=== PATIENT | male | born 1985 | race African-American/Black ===

== ENCOUNTER 2019-04-23 00:05 | Inpatient (IN) | payer SELFPAY ==
[2019-04-23] MEDS ORDERED: HYDRALAZINE HCL 20 MG/ML VIAL ONE ×2 (00:44→01:17)
[2019-04-23 00:54] LABS: Basophils % 0.8 % (0-1.3); Lymphocytes % 14.2 % (15.3-44.8); MPV 8.2 fL (7.6-11.3); RBC Red Blood Cell Count 4.32 M/uL (4.33-5.43)
[2019-04-23 00:57] LABS: Protime INR 1.02
[2019-04-23 01:15] LABS: Albumin 3.6 g/dL (3.4-5.0); Bilirubin Direct 0.1 mg/dL (0-0.2); Bilirubin Total 0.4 mg/dL (0.2-1.0); Magnesium 1.8 mg/dL (1.8-2.4); Potassium 3.4 mmol/L (3.5-5.1); Protein, Total 7.3 g/dL (6.4-8.2); Troponin (Emerg Dept Use Only) 0.12 ng/mL (0.0-0.045)
[2019-04-23] MEDS ORDERED: ENOXAPARIN 100 MG/ML SYR SQ ONE (01:48)
[2019-04-23] MEDS ORDERED: NITROGLYCERIN/D5W 50 MG/250 ML BTL IV ONE (01:48)
[2019-04-23] MEDS ORDERED: ONDANSETRON 4 MG/2 ML VIAL ONE (01:48)
[2019-04-23] MEDS ORDERED: METOPROLOL TARTRATE 5 MG/5 ML INJ IV ONE (01:48)
[2019-04-23] MEDS ORDERED: FUROSEMIDE 40 MG/4 ML VIAL ONE (01:53)
--- NOTE | 2019-04-23 02:09 | ER ---
Nurse's Notes [facility] Name: Ezequiel Padron Age: 34 yrs Sex: Male : 1985 Arrival Date: 04/23/2019 Time: 00:07 Bed 18 Private MD: Diagnosis: Acute combined systolic (congestive) and diastolic (congestive) heart failure;Hypertensive Emergency ;Cardiomegaly Presentation: 04/23 00:20 Presenting complaint: Patient states: I am having hard time to breath, cannot sleep and rr5 coughing when I'm laying flat for couple of weeks now but it gets worse today. I urinate a lot too. 00:20 Transition of care: patient was not received from another setting of care. Onset of rr5 symptoms was April 23, 2019. Risk Assessment: Do you want to hurt yourself or someone else? Patient reports no desire to harm self or others. Initial Sepsis Screen: Does the patient meet any 2 criteria? No. Patient's initial sepsis screen is negative. Does the patient have a suspected source of infection? No. Patient's initial sepsis screen is negative. Note denies any dizziness, slurred speech or weakness. patient stop his BP medication (lisinopril) for couple of months. Care prior to arrival: None. 00:20 Method Of Arrival: Ambulatory rr5 00:20 Acuity: HERMELINDA 3 rr5 Triage Assessment: 00:20 Respiratory: Onset: The symptoms/episode began/occurred gradually, the patient has mild rr5 shortness of breath. 00:20 General: Appears in no apparent distress. uncomfortable. rr5 Historical: - Allergies: 00:20 HTN medication; rr5 - Home Meds: 00:20 Lisinopril Oral [Active]; rr5 - PMHx: 00:20 Hypertension; rr5 - PSHx: 00:20 right leg surgery; rr5 - Immunization history:: Adult Immunizations not up to date. - Social history:: Smoking status: Patient/guardian denies using tobacco, Patient uses alcohol, weekly. Patient/guardian denies using street drugs. - Ebola Screening: : Patient negative for fever greater than or equal to 101.5 degrees Fahrenheit, and additional compatible Ebola Virus Disease symptoms Patient denies exposure to infectious person Patient denies travel to an Ebola-affected area in the 21 days before illness onset. Screenin:29 Abuse screen: Denies threats or abuse. Denies injuries from another. Nutritional rr5 screening: No deficits noted. Tuberculosis screening: No symptoms or risk factors identified. Fall Risk None identified. Total Pressley Fall Scale indicates No Risk (0-24 pts). 00:30 VAN Screening: Arm Drift: Patient shows no arm weakness. Patient is VAN negative. rr5 Assessment: 00:20 General: Appears in no apparent distress. uncomfortable, Behavior is calm, cooperative, rr5 appropriate for age, Reports I cannot sleep. 00:20 Pain: Denies pain. Neuro: Level of Consciousness is awake, alert, obeys commands, rr5 Oriented to person, place, time, situation, Appropriate for age. Cardiovascular: Capillary refill < 3 seconds Patient's skin is warm and dry. Rhythm is sinus tachycardia. Respiratory: Reports shortness of breath cant lay flat on bed Airway is patent Respiratory effort is even, unlabored, Respiratory pattern is tachypnea. GI: No signs and/or symptoms were reported involving the gastrointestinal system. : Urine is clear, Reports i pee a lot. EENT: No signs and/or symptoms were reported regarding the EENT system. Derm: Skin is intact, Skin temperature is warm. Musculoskeletal: Circulation, motion, and sensation intact. Capillary refill < 3 seconds. 00:20 Respiratory: Breath sounds are clear bilaterally. rr5 01:15 Reassessment: Patient appears in no apparent distress at this time. Patient is alert, rr5 oriented x 3, equal unlabored respirations, skin warm/dry/pink. awaiting for results. BP rechecked 193/128 mmHg ED provider with order made and carried out. 01:45 Reassessment: BP 175/105 mmHg ED provider aware with order to hold the nitroglycerin rr5 drip for now. 01:45 Reassessment: patient complaints of nausea with order made and carried out. rr5 02:15 Reassessment: Patient appears in no apparent distress at this time. Patient is alert, rr5 oriented x 3, equal unlabored respirations, skin warm/dry/pink. ED provider ordered to start the nitroglycerin drip. BP 186/ 121mmHg. 02:50 Reassessment: [facility]. hospitalist at bedside rr5 examining the patient. dr.clarke ordered for give nitro paste ointment,target BP map (110). Vital Signs: 00:20 BP 219 / 161; Pulse 110; Resp 22; Temp 99.6; Pulse Ox 98% ; Weight 108.86 kg; Height 6 rr5 ft. 0 in. (182.88 cm); Pain 0/10; 00:50 BP 197 / 145; Pulse 108; Resp 24; Pulse Ox 98% ; rr5 01:14 BP 203 / 134; Pulse 107; Resp 25; Pulse Ox 100% ; rr5 01:21 BP 193 / 128; Pulse 106; Resp 24; Pulse Ox 98% ; rr5 01:45 BP 175 / 105; Pulse 113; Resp 23; Pulse Ox 99% ; rr5 02:00 BP 190 / 128; Pulse 109; Resp 22; Pulse Ox 99% on R/A; rr5 02:15 BP 186 / 121; Pulse 99; Resp 24; Pulse Ox 100% on R/A; rr5 02:30 BP 174 / 113; Pulse 98; Resp 21; Pulse Ox 100% on R/A; rr5 03:15 BP 172 / 114 (auto/); Pulse 102; Resp 23; Temp 99.5; Pulse Ox 100% ; rr5 04:00 BP 165 / 93; Pulse 99; Resp 21; Temp 99; Pulse Ox 98% ; rr5 00:20 Body Mass Index 32.55 (108.86 kg, 182.88 cm) rr5 03:15 map 128 increased nitro drip to 10 mcg/min rr5 ED Course: 00:07 Patient arrived in ED. ag3 00:09 Fazal Marks, SAMANTHA is Primary Nurse. rr5 00:16 Andres Carrera PA is PHCP. jr8 00:16 Dustin Ricardo MD is Attending Physician. jr8 00:20 Arm band placed on right wrist. rr5 00:25 Triage completed. rr5 00:25 Patient has correct armband on for positive identification. Placed in gown. Bed in low rr5 position. Call light in reach. neurosurgery spine physician on. Pulse ox on. NIBP on. 00:45 Inserted saline lock: 18 gauge in left antecubital area, using aseptic technique. rr5 ,using aseptic technique. inserted by [facility] tech Blood collected. 00:45 EKG done, by ED staff, reviewed by Andres PEARCE. rr5 00:59 XRAY Chest (1 view) In Process Unspecified. EDMS 02:07 Nelly Clarke MD is Hospitalizing Provider. jr8 02:51 No provider procedures requiring assistance completed. Patient admitted, IV remains in rr5 place. intact, No redness/swelling at site. 13:55 Repeat lab(s) drawn. by [facility], sent to lab. mh5 Administered Medications: 00:52 Drug: hydrALAZINE 10 mg Route: IV; Rate: calculated rate; Site: left antecubital; rr5 01:15 Follow up: Response: Blood pressure is lowered; IV Status: Completed infusion rr5 01:15 Drug: hydrALAZINE 10 mg Route: IV; Rate: calculated rate; Site: left antecubital; rr5 01:30 Follow up: Response: No adverse reaction; Blood pressure is lowered; IV Status: rr5 Completed infusion 01:55 Drug: Lovenox 1 mg/kg Route: Sub-Q; Site: right lower abdomen; rr5 03:00 Follow up: Response: No adverse reaction rr5 02:00 Drug: Zofran 4 mg Route: IVP; Site: left antecubital; rr5 02:43 Follow up: Response: No adverse reaction rr5 02:04 Drug: Metoprolol 5 mg {Note: HR 109 bpm, BP 190/128 mmHg.} Route: IVP; Site: left rr5 antecubital; 03:30 Follow up: Response: No adverse reaction; Blood sugar is lowered rr5 02:06 Drug: Lasix 40 mg Route: IVP; Site: left antecubital; rr5 03:00 Follow up: Response: No adverse reaction rr5 02:15 Drug: Nitro Drip - (Nitroglycerin 50 mg, D5W 250 ml) {Note: BP 186/121 mmHg.} Route: rr5 IV; Rate: 5 mcg/min; Site: left antecubital; 03:15 Follow up: Response: Blood pressure is elevated; Rate change 10 mcg/min; map 128 rr5 04:00 Follow up: Response: Blood pressure is lowered; Rate change 5 mcg/min rr5 04:20 Follow up: Response: Blood pressure is elevated; Rate change 10 mcg/min; IV Intake: 3ml rr5 ; 180/123 mmHg map 137 04:30 Follow up: IV Status: Infusion continued upon admission rr5 05:00 Follow up: Rate change 15 mcg/min; IV Intake: 3ml ; 187/114 mmHg map 130 rr5 02:58 Drug: Nitroglycerin Ointment 2 % 1 inches {Note: right chest.verbal order by .} rr5 Route: Transdermal; Site: anterior chest wall; 04:00 Follow up: Response: No adverse reaction rr5 Intake: 04:20 IV: 3ml; Total: 3ml. rr5 05:00 IV: 3ml; Total: 6ml. rr5 Output: 01:30 Urine: 700ml (Voided); Total: 700ml. rr5 02:25 Urine: 450ml (Voided); Total: 1150ml. rr5 03:20 Urine: 350ml (Voided); Total: 1500ml. rr5 03:47 Stool: 1; Total: 1500ml. rr5 04:10 Urine: 400ml (Voided); Total: 1900ml. rr5 Outcome: 02:08 Decision to Hospitalize by Provider. jr8 04:00 Admitted to ER Hold. Please see [facility] for further documentation. rr5 04:00 Condition: stable 04:00 Instructed on the need for admit. rr5 14:26 Patient left the ED. ph Signatures: Dispatcher [employer] EDMS Andres Carrera PA PA jr8 Meaghan Gonzales, RN RN Mansi Garcia 5 Kandy Pacheco Raymond, RN RN rr5 Corrections: (The following items were deleted from the chart) 00:53 00:45 EKG done, rr5 rr5 01:14 00:20 BP 219 / 61; Pulse 110bpm; Resp 22bpm; Pulse Ox 98%; Temp 99.6F; 108.86 kg; rr5 Height 6 ft. 0 in.; BMI: 32.5; Pain 0/10; rr5 03:29 02:50 Reassessment: UDS order in [facility] collected and sent. hospitalist at bedside rr5 examining the patient. rr5
--- NOTE | 2019-04-23 02:09 | EDPHYS ---
Physician Documentation [facility] Name: Ezequiel Padron Age: 34 yrs Sex: Male : 1985 Arrival Date: 04/23/2019 Time: 00:07 Bed 18 Private MD: ED Physician Dustin Ricardo HPI: 04/23 00:43 This 34 yrs old Black Male presents to ER via Ambulatory with complaints of Breathing jr8 Difficulty. 00:43 The patient has shortness of breath at rest. Onset: The symptoms/episode began/occurred jr8 gradually, 2 week(s) ago. 00:43 Duration: The symptoms are continuous. The patient's shortness of breath is aggravated jr8 by supine position, walking. Associated signs and symptoms: The patient has no apparent associated signs or symptoms. Severity of symptoms: At their worst the symptoms were moderate in the emergency department the symptoms are unchanged. The patient has not experienced similar symptoms in the past. The patient has not recently seen a physician. Patient stated that he has a longstanding untreated history of HTN. Patient stated that he now is having shortness of breath with sleeping and when lying flat. Stated that he also noted that he is now having shortness of breath with exertion. Denies CP . Historical: - Allergies: 00:20 HTN medication; rr5 - Home Meds: 00:20 Lisinopril Oral [Active]; rr5 - PMHx: 00:20 Hypertension; rr5 - PSHx: 00:20 right leg surgery; rr5 - Immunization history:: Adult Immunizations not up to date. - Social history:: Smoking status: Patient/guardian denies using tobacco, Patient uses alcohol, weekly. Patient/guardian denies using street drugs. - Ebola Screening: : Patient negative for fever greater than or equal to 101.5 degrees Fahrenheit, and additional compatible Ebola Virus Disease symptoms Patient denies exposure to infectious person Patient denies travel to an Ebola-affected area in the 21 days before illness onset. ROS: 00:43 Eyes: Negative for injury, pain, redness, and discharge, ENT: Negative for injury, jr8 pain, and discharge, Neck: Negative for injury, pain, and swelling, Cardiovascular: Negative for chest pain, palpitations, and edema, Abdomen/GI: Negative for abdominal pain, nausea, vomiting, diarrhea, and constipation, Back: Negative for injury and pain, MS/Extremity: Negative for injury and deformity, Skin: Negative for injury, rash, and discoloration, Neuro: Negative for headache, weakness, numbness, tingling, and seizure. 00:43 Respiratory: Positive for dyspnea on exertion, orthopnea, shortness of breath. Exam: 00:43 Eyes: Pupils equal round and reactive to light, extra-ocular motions intact. Lids and jr8 lashes normal. Conjunctiva and sclera are non-icteric and not injected. Cornea within normal limits. Periorbital areas with no swelling, redness, or edema. ENT: Nares patent. No nasal discharge, no septal abnormalities noted. Tympanic membranes are normal and external auditory canals are clear. Oropharynx with no redness, swelling, or masses, exudates, or evidence of obstruction, uvula midline. Mucous membranes moist. Neck: Trachea midline, no thyromegaly or masses palpated, and no cervical lymphadenopathy. Supple, full range of motion without nuchal rigidity, or vertebral point tenderness. No Meningismus. Abdomen/GI: Soft, non-tender, with normal bowel sounds. No distension or tympany. No guarding or rebound. No evidence of tenderness throughout. Back: No spinal tenderness. No costovertebral tenderness. Full range of motion. Skin: Warm, dry with normal turgor. Normal color with no rashes, no lesions, and no evidence of cellulitis. MS/ Extremity: Pulses equal, no cyanosis. Neurovascular intact. Full, normal range of motion. Neuro: Awake and alert, GCS 15, oriented to person, place, time, and situation. Cranial nerves II-XII grossly intact. Motor strength 5/5 in all extremities. Sensory grossly intact. Cerebellar exam normal. Normal gait. 00:43 Cardiovascular: Rate: tachycardic, Rhythm: regular, Pulses: Pulses are 2+ in right radial artery and left radial artery. Heart sounds: S3, increased, Edema: is not appreciated. 00:43 Respiratory: the patient does not display signs of respiratory distress, Respirations: tachypnea, Breath sounds: are clear throughout, no bronchial sounds, no decreased breath sounds, no rales, rhonchi, no stridor, no wheezing. Vital Signs: 00:20 BP 219 / 161; Pulse 110; Resp 22; Temp 99.6; Pulse Ox 98% ; Weight 108.86 kg; Height 6 rr5 ft. 0 in. (182.88 cm); Pain 0/10; 00:50 BP 197 / 145; Pulse 108; Resp 24; Pulse Ox 98% ; rr5 01:14 BP 203 / 134; Pulse 107; Resp 25; Pulse Ox 100% ; rr5 01:21 BP 193 / 128; Pulse 106; Resp 24; Pulse Ox 98% ; rr5 01:45 BP 175 / 105; Pulse 113; Resp 23; Pulse Ox 99% ; rr5 02:00 BP 190 / 128; Pulse 109; Resp 22; Pulse Ox 99% on R/A; rr5 02:15 BP 186 / 121; Pulse 99; Resp 24; Pulse Ox 100% on R/A; rr5 02:30 BP 174 / 113; Pulse 98; Resp 21; Pulse Ox 100% on R/A; rr5 03:15 BP 172 / 114 (auto/); Pulse 102; Resp 23; Temp 99.5; Pulse Ox 100% ; rr5 04:00 BP 165 / 93; Pulse 99; Resp 21; Temp 99; Pulse Ox 98% ; rr5 00:20 Body Mass Index 32.55 (108.86 kg, 182.88 cm) rr5 03:15 map 128 increased nitro drip to 10 mcg/min rr5 MDM: 00:35 Patient medically screened. jr8 02:06 Data reviewed: vital signs, nurses notes, lab test result(s), EKG, radiologic studies, jr8 plain films. Data interpreted: Pulse oximetry: on room air is 98 %. Interpretation: normal. Counseling: I had a detailed discussion with the patient and/or guardian regarding: the historical points, exam findings, and any diagnostic results supporting the discharge/admit diagnosis, lab results, radiology results, the need for further work-up and treatment in the hospital. Physician consultation: Nelly Pinon MD was called at 02:07, was contacted at 02:07, regarding admission, to the telemetry unit. consult, patient's condition, and will see patient. 04/23 00:35 Order name: Basic Metabolic Panel; Complete Time: : jr8 04/23 00:35 Order name: CBC with Diff; Complete Time: 01:05 jr8 04/23 00:35 Order name: LFT's; Complete Time: : jr8 04/23 00:35 Order name: Magnesium; Complete Time: 01:33 8 04/23 00:35 Order name: NT PRO-BNP; Complete Time: 01:33 8 04/23 00:35 Order name: PT-INR; Complete Time: 01:10 04/23 00:35 Order name: Troponin (emerg Dept Use Only); Complete Time: 01:33 8 04/23 02:35 Order name: Comprehensive Metabolic Panel EDMS 04/23 02:35 Order name: Comprehensive Metabolic Panel EDMS 04/23 02:36 Order name: Urine Drug Screen EDMS 04/23 02:36 Order name: Urine Drug Screen EDMS 04/23 02:36 Order name: Magnesium EDMS 04/23 02:36 Order name: Magnesium EDMS 04/23 02:36 Order name: Phosphorus EDMS 04/23 00:35 Order name: XRAY Chest (1 view) [facility] 04/23 02:36 Order name: Phosphorus EDMS 04/23 02:36 Order name: NT PRO-BNP EDMS 04/23 02:36 Order name: NT PRO-BNP EDMS 04/23 02:36 Order name: Protime (+INR) EDMS 04/23 02:36 Order name: Protime (+INR) EDMS 04/23 02:36 Order name: Protime (+INR) EDMS 04/23 02:36 Order name: Troponin I EDMS 04/23 02:36 Order name: Troponin I EDMS 04/23 02:36 Order name: Troponin I EDMS 04/23 02:38 Order name: Echo with Doppler EDMS 04/23 02:38 Order name: CBC with Automated Diff EDMS 04/23 02:38 Order name: CBC with Automated Diff EDMS 04/23 02:42 Order name: Urine Microscopic Only rr5 04/23 02:55 Order name: Urine Drug Screen EDMS 04/23 08:59 Order name: Manual Differential EDMS 04/23 00:35 Order name: EKG; Complete Time: 00:37 04/23 00:35 Order name: Cardiac monitoring; Complete Time: 00:52 04/23 00:35 Order name: EKG - Nurse/Tech; Complete Time: 00:52 04/23 00:35 Order name: IV Saline Lock; Complete Time: 00:52 04/23 00:35 Order name: Labs collected and sent; Complete Time: 04/23 00:35 Order name: O2 Per Protocol; Complete Time: 04/23 00:35 Order name: O2 Sat Monitoring; Complete Time: 00:04/23 02:38 Order name: CONS Physician Consult [facility] 04/23 02:38 Order name: Heart Healthy EDCT 04/23 02:38 Order name: EKG Electrocardiogram [facility] 04/23 02:38 Order name: EKG Electrocardiogram [facility] 04/23 12:38 Order name: RAD EDMS Administered Medications: 00:52 Drug: hydrALAZINE 10 mg Route: IV; Rate: calculated rate; Site: left antecubital; rr5 01:15 Follow up: Response: Blood pressure is lowered; IV Status: Completed infusion rr5 01:15 Drug: hydrALAZINE 10 mg Route: IV; Rate: calculated rate; Site: left antecubital; rr5 01:30 Follow up: Response: No adverse reaction; Blood pressure is lowered; IV Status: rr5 Completed infusion 01:55 Drug: Lovenox 1 mg/kg Route: Sub-Q; Site: right lower abdomen; rr5 03:00 Follow up: Response: No adverse reaction rr5 02:00 Drug: Zofran 4 mg Route: IVP; Site: left antecubital; rr5 02:43 Follow up: Response: No adverse reaction rr5 02:04 Drug: Metoprolol 5 mg {Note: HR 109 bpm, BP 190/128 mmHg.} Route: IVP; Site: left rr5 antecubital; 03:30 Follow up: Response: No adverse reaction; Blood sugar is lowered rr5 02:06 Drug: Lasix 40 mg Route: IVP; Site: left antecubital; rr5 03:00 Follow up: Response: No adverse reaction rr5 02:15 Drug: Nitro Drip - (Nitroglycerin 50 mg, D5W 250 ml) {Note: BP 186/121 mmHg.} Route: rr5 IV; Rate: 5 mcg/min; Site: left antecubital; 03:15 Follow up: Response: Blood pressure is elevated; Rate change 10 mcg/min; map 128 rr5 04:00 Follow up: Response: Blood pressure is lowered; Rate change 5 mcg/min rr5 04:20 Follow up: Response: Blood pressure is elevated; Rate change 10 mcg/min; IV Intake: 3ml rr5 ; 180/123 mmHg map 137 04:30 Follow up: IV Status: Infusion continued upon admission rr5 05:00 Follow up: Rate change 15 mcg/min; IV Intake: 3ml ; 187/114 mmHg map 130 rr5 02:58 Drug: Nitroglycerin Ointment 2 % 1 inches {Note: right chest.verbal order by .} rr5 Route: Transdermal; Site: anterior chest wall; 04:00 Follow up: Response: No adverse reaction rr5 Disposition: 04/24 06:51 Co-signature as Attending Physician, Dustin Ricardo MD I agree with the assessment and tw4 plan of care. Disposition: 04/23/19 02:08 Hospitalization ordered by Nelly Pinon for Inpatient Admission. Preliminary diagnosis are Acute combined systolic (congestive) and diastolic (congestive) heart failure, Hypertensive Emergency , Cardiomegaly. - Bed requested for Telemetry/MedSurg (Inpatient). - Status is Inpatient Admission. ph - Condition is Fair. - Problem is new. - Symptoms have improved. UTI on Admission? No Signatures: Dispatcher [employer] EDMS Renee Reid Josh, PA PA jr8 Celia Lorenz RN RN tl1 Meaghan Gonzales RN RN Dustin Ricardo MD MD tw4 Fazal Marks RN RN rr5 Corrections: (The following items were deleted from the chart) 04/23 00:44 00:43 Onset: The symptoms/episode began/occurred gradually, jr8 jr8 02:08 02:08 Hospitalization Ordered by Nelly Pinon MD for Inpatient Admission. Preliminary jr8 diagnosis is Acute combined systolic (congestive) and diastolic (congestive) heart failure; Hypertensive Emergency . Bed requested for Intensive Care Unit. Status is Inpatient Admission. Condition is Fair. Problem is new. Symptoms have improved. UTI on Admission? No. jr8 02:48 02:08 04/23/2019 02:08 Hospitalization Ordered by Nelly Pinon MD for Inpatient tl1 Admission. Preliminary diagnosis is Acute combined systolic (congestive) and diastolic (congestive) heart failure; Hypertensive Emergency ; Cardiomegaly. Bed requested for Intensive Care Unit. Status is Inpatient Admission. Condition is Fair. Problem is new. Symptoms have improved. UTI on Admission? No. jr8 13:27 02:48 04/23/2019 02:08 Hospitalization Ordered by Nelly Pinon MD for Inpatient bd Admission. Preliminary diagnosis is Acute combined systolic (congestive) and diastolic (congestive) heart failure; Hypertensive Emergency ; Cardiomegaly. Bed requested for [facility] ER HOLD. Status is Inpatient Admission. Condition is Fair. Problem is new. Symptoms have improved. UTI on Admission? No. tl1 14:26 13:27 04/23/2019 02:08 Hospitalization Ordered by Nelly Pinon MD for Inpatient ph Admission. Preliminary diagnosis is Acute combined systolic (congestive) and diastolic (congestive) heart failure; Hypertensive Emergency ; Cardiomegaly. Bed requested for Telemetry/MedSurg (Inpatient). Status is Inpatient Admission. Condition is Fair. Problem is new. Symptoms have improved. UTI on Admission? No. bd
[2019-04-23] MEDS ORDERED: NA CHLORIDE 0.9% 250 ML ONE (02:22)
[2019-04-23] MEDS ORDERED: ONDANSETRON 4 MG/2 ML VIAL IV PRN (02:25)
[2019-04-23] MEDS ORDERED: NITROGLYCERIN 1 GM PKT TD ONE (02:56)
[2019-04-23 03:11] LABS: Barbiturates NEGATIVE (NEGATIVE); Benzodiazepines NEGATIVE (NEGATIVE); Cocaine NEGATIVE (NEGATIVE); METHAMPHETAM NEGATIVE (NEGATIVE); Methadone NEGATIVE (NEGATIVE); Opiates NEGATIVE (NEGATIVE); Phencyclidine NEGATIVE (NEGATIVE); THC Cannibis NEGATIVE (NEGATIVE)
[2019-04-23] MEDS: NITROGLYCERIN/D5W 50 MG/250 ML BTL IV PRN ×6 (04:00→13:20)
[2019-04-23 04:19] VITALS: BMI 32.3
[2019-04-23] MEDS ORDERED: ACETAMINOPHEN 500 MG TAB ONE ×2 (04:21→08:39)
[2019-04-23] MEDS: ACETAMINOPHEN 500 MG TAB PO PRN ×2 (04:23→09:01)
[2019-04-23 04:26] LABS: Urine Bacteria NONE SEEN /HPF (NONE SEEN); Urine Culture Reflex Order NOT NEEDED; Urine RBC NONE SEEN /HPF (NONE SEEN)
[2019-04-23 05:37] LABS: Basophils % 0.6 % (0-1.3); Hematocrit 37.5 % (39.6-49.0); Lymphocytes % 7.3 % (15.3-44.8); MPV 8.3 fL (7.6-11.3); RBC Red Blood Cell Count 4.39 M/uL (4.33-5.43)
[2019-04-23 05:38] LABS: Protime INR 1.09
[2019-04-23 05:58] LABS: Albumin 3.8 g/dL (3.4-5.0); Bilirubin Total 0.7 mg/dL (0.2-1.0); Magnesium 1.7 mg/dL (1.8-2.4); Phosphorus 1.9 mg/dL (2.5-4.9); Potassium 3.1 mmol/L (3.5-5.1); Protein, Total 7.6 g/dL (6.4-8.2)
[2019-04-23] MEDS ORDERED: FUROSEMIDE 20 MG/ 2ML VIAL ONE ×3 (06:08→10:10)
[2019-04-23] MEDS: FUROSEMIDE 40 MG/4 ML VIAL IV SCH ×4 (06:10→20:53)
[2019-04-23] MEDS ORDERED: MAGNESIUM SULFATE 1 gm IVPB 1 GM/100 ML BAG IV ONE ×2 (06:39→06:54)
[2019-04-23] MEDS ORDERED: TRAMADOL HCL 50 MG TAB PO PRN (06:56)
--- NOTE | 2019-04-23 07:15 | P.HP ---
Certification for Inpatient Patient admitted to: Inpatient With expected LOS: >2 Midnights Patient will require the following post-hospital care: None Practitioner: I am a practitioner with admitting privileges, knowledge of patient current condition, hospital course, and medical plan of care. Services: Services provided to patient in accordance with Admission requirements found in Title 42 Section 412.3 of the Code of Federal Regulations Patient History Date of Service: 04/23/19 Reason for admission: Hypertensive emergency History of Present Illness: Patient is a 34-year-old gentleman who came into the hospital with shortness of breath. Was found have a significantly elevated blood pressure of 240/160. The patient also had an elevated BNP level ended elevated troponin level. He was started on a nitro drip. Patient denies any chest pain. He has had elevated blood pressure since he was 20 years old. He really has not taking care of his blood pressure for a long time. When he was younger he used to abuse multiple drugs. He's done cocaine, marijuana, and drinks excessively. He also smokes tobacco. He states that he quit smoking marijuana about 4 months ago. At that time, he started drinking excessively. He said he has cut back and only drinks on the weekend over the last 3-4 weeks. Patient came into the hospital for further evaluation. Patient was found to have pulmonary edema and cardiomegaly on his chest x-ray. We will continue with diuresing patient and continue the nitro drip. Will lower patient's MAP to 110. Allergies HTN medication canno recall the nam Allergy (Uncoded 04/23/19 03:36) Nausea/Vomiting - Past Medical/Surgical History Has patient received pneumonia vaccine in the past: No -: HYPERTENSION -: right leg surgery - Family History Father Family History: Reviewed- Non-Contributory - Social History Smoking Status: Unknown if ever smoked Alcohol use: Yes CD- Drugs: No Caffeine use: No Place of Residence: Home Review of Systems 10-point ROS is otherwise unremarkable Physical Examination - Vital Signs Temperature: 99 F Blood Pressure: 161/110 Pulse: 99 Respirations: 23 Pulse Ox (%): 99 - Physical Exam General: Alert, In no apparent distress, Oriented x3 HEENT: Atraumatic, PERRLA, Mucous membr. moist/pink, EOMI, Sclerae nonicteric Neck: Supple, 2+ carotid pulse no bruit, No LAD, Without JVD or thyroid abnormality Respiratory: Diminished, Crackles/rales Cardiovascular: Regular rate/rhythm, Normal S1 S2, No murmurs Gastrointestinal: Normal bowel sounds, Soft and benign, Non-distended, No tenderness, No rebound, No guarding Musculoskeletal: No clubbing, No swelling, No tenderness Integumentary: No rashes Neurological: Normal gait, Normal speech, Normal strength at 5/5 x4 extr, Normal tone, Sensation intact, Cranial nerves 3-12 intact, Normal affect Lymphatics: No axilla or inguinal lymphadenopathy - Studies Laboratory Data (last 24 hrs) 04/23/19 00:45: PT 12.0, INR 1.02 04/23/19 00:45: WBC 14.1 H, Hgb 12.9 L, Hct 37.0 L, Plt Count 314 04/23/19 00:45: Sodium 139, Potassium 3.4 L, BUN 20 H, Creatinine 1.46 H, Glucose 107 H, Magnesium 1.8, Total Bilirubin 0.4, AST 28, ALT 41, Alkaline Phosphatase 70 Assessment & Plan - Problems (Diagnosis) (1) Acute exacerbation of congestive heart failure Current Visit: Yes Status: Acute (2) Hypertensive emergency Current Visit: Yes Status: Acute - Plan PLAN: 1. CONTINUE WITH NITRO DRIP 2. ECHOCARDIOGRAM 3. CARDIOLOGY CONSULTATION 4. IV LASIX 5. MONITOR RENAL FUNCTION CLOSELY 6. MOST LIKELY PATIENT WITH DIASTOLIC DYSFUNCTION AND WILL START BETA-BISHNU IN 24 HR 7. CHIEF LIBRARIAN BRANCH REGARDING POLYSUBSTANCE ABUSE 8. GI AND DVT PROPHYLAXIS Discharge Plan: Home Plan to discharge in: Greater than 2 days - Advance Directives Does patient have a Living Will: No Does patient have a Durable POA for Healthcare: No - Code Status/Comfort Care Code Status Assessed: Yes Code Status: Full Code Critical Care: No Time Spent Managing PTS Care (In Minutes): 50
[2019-04-23] MEDS ORDERED: TRAMADOL HCL 50 MG TAB ONE (07:41)
[2019-04-23] MEDS ORDERED: INFLUENZA VACCINE (for 3y+) 0.5 ML DOSE IMVAC ONE (08:00)
--- NOTE | 2019-04-23 08:17 | RAD REPORT ---
EXAM DESCRIPTION: Nathan Single View04/23/2019 12:58 am CLINICAL HISTORY: Shortness breath COMPARISON: 2014 FINDINGS: The right base is hazy Mild bilateral pulmonary opacities. Heart is mildly enlarged IMPRESSION: Mild bilateral pulmonary opacities probably pulmonary edema Right base is hazy which could represent focal alveolar pulmonary edema or superimposed pneumonia
[2019-04-23] MEDS ORDERED: METOPROLOL TAR 50 MG TAB ONE (08:29)
[2019-04-23] MEDS ORDERED: lisinopriL 20 MG TAB ONE (08:29)
[2019-04-23] MEDS ORDERED: ACETAMINOPHEN 325 MG TABLET ONE (08:29)
[2019-04-23] MEDS ORDERED: ASPIRIN EC 81 MG TAB PO ONE (08:29)
[2019-04-23] MEDS ORDERED: CLOPIDOGREL 75 MG TABLET ONE (08:29)
[2019-04-23] MEDS ORDERED: POTASSIUM 25 MEQ EFFERV TAB ONE (08:30)
[2019-04-23] MEDS: POTASS/SODIUM PHOSPHATE 1 PKT POWD.PACK PO SCH ×3 (08:45→11:00)
[2019-04-23] MEDS: POTASSIUM 25 MEQ EFFERV TAB PO SCH ×2 (08:57→20:54)
[2019-04-23] MEDS: ASPIRIN EC 81 MG TAB PO SCH (08:57)
[2019-04-23 08:58] LABS: Blood Morphology Comment NOT SEEN (NOT SEEN); Platelet Estimate ADEQ
[2019-04-23] MEDS: lisinopriL 20 MG TAB PO SCH (08:59)
[2019-04-23] MEDS ORDERED: CLOPIDOGREL 75 MG TABLET PO SCH (09:00)
--- NOTE | 2019-04-23 12:28 | RAD REPORT ---
EXAM DESCRIPTION: RADChest Pa And Lat (2 Views)04/23/2019 12:15 pm CLINICAL HISTORY: Shortness of breath COMPARISON: April 23, 2019 FINDINGS: Bilateral pulmonary opacities have resolved. Upper lobe vessels are prominent indicative o f pulmonary venous hypertension Heart is borderline enlarged IMPRESSION: Resolution of the pulmonary edema
--- NOTE | 2019-04-23 12:43 | EKG ---
Test Date: 2019-04-23 Test Time: 00:39:04 Founder / Ceo: RR MEASUREMENT RESULTS: Intervals: Rate: 105 DE: 142 QRSD: 108 QT: 354 QTc: 467 [place]: P: 54 DE: 142 QRS: 6 T: 182 INTERPRETIVE STATEMENTS: Sinus tachycardia Biatrial enlargement Left ventricular hypertrophy with repolarization abnormality Abnormal ECG Compared to ECG 03/26/2015 11:25:20 Sinus rhythm no longer present Electronically Signed On 04-23-19 12:41:32 PATIENT RESOURCE COORDINATOR by Agapito Quezada
--- NOTE | 2019-04-23 13:22 | P.PN ---
Subjective Date of Service: 04/23/19 Primary Care Provider: None Chief Complaint: Hypertensive emergency Subjective: Improving, Doing well Physical Examination - Vital Signs Temperature: 97.9 F Blood Pressure: 139/91 Pulse: 76 Respirations: 16 Pulse Ox (%): 97 - Physical Exam General: Alert, In no apparent distress, Oriented x3, Cooperative HEENT: Atraumatic Neck: Supple Respiratory: Clear to auscultation bilaterally, Normal air movement Cardiovascular: Normal pulses, Regular rate/rhythm Gastrointestinal: Normal bowel sounds - Studies Laboratory Data (last 24 hrs) 04/23/19 00:45: PT 12.0, INR 1.02 04/23/19 00:45: WBC 14.1 H, Hgb 12.9 L, Hct 37.0 L, Plt Count 314 04/23/19 00:45: Sodium 139, Potassium 3.4 L, BUN 20 H, Creatinine 1.46 H, Glucose 107 H, Magnesium 1.8, Total Bilirubin 0.4, AST 28, ALT 41, Alkaline Phosphatase 70 Assessment & Plan Discharge Plan: Home Plan to discharge in: 24 Hours Physician Review Additional Text: Impression: Acute on chronic systolic CHF Hypertensive emergency Noncompliance with follow up and medications Elevated troponin likely related to above Plan: Acute on chronic systolic CHF: Will continue with diuresis. Chest x-ray shows improvement. Will teach on 1500 cc per day fluid restriction. Will obtain echocardiogram. Case discussed with cardiology. Patient needs to be back on regular medications. Cardiology plans for no further workup. Anticipate discharge in the next 24 hr with clinical improvement. Hypertensive emergency: Wean off nitroglycerin drip. Restart metoprolol 50 mg twice daily and lisinopril 40 mg daily. Continue monitor closely. Anticipate weaning off later today. Noncompliance with follow up and medications: Patient requires PCP to refill medications. Compliance addressed in detail. Patient understands this in detail. Elevated troponin likely related to above: Case discussed with cardiology. Await echocardiogram. No further workup at this time required. Time Spent Managing Pts Care (In Minutes): 55
--- NOTE | 2019-04-23 14:11 | CON ---
Date of Consultation: 04/23/[address] Pinon's service on 04/23/2019. Reason For Consultation: Hypertensive crisis and congestive heart failure. History Of Present Illness: Mr. Padron is only 34, has had a history of chronic hypertension, but covarrubias s been noncompliant with his medication. He is supposed to take lisinopril, but he does not. Harjinder gregorio was treated with some blood pressure pills in [place] at one point that dropped his blood pres sure too long. He came in with PND and orthopnea. No pedal edema. No palpitation. No syncope. Co mplained of shortness of breath, but no chest pain. Had some nausea, but no vomiting or diaphoresis. His chest x-ray showed CHF. Troponin was 0.08 and 0.12. His pressure was 161/110, creatinine 1.36 . White count was 14,000. His potassium was 3.1, magnesium was 1.7. His BNP was 6214. Past Medical History: As stated above. Allergies: NONE. Review of Systems: Negative. Social History: Negative. Family History: Negative. Physical Examination: Vital Signs: Blood pressure was 160/100, sinus rhythm. HEENT: Negative. Neck: Supple. No bruit. Chest: Clear. Cardiac: Revealed a regular rhythm and rate with an S4 gallops. Abdomen: Benign. Extremities: Revealed no clubbing, cyanosis, or edema. Diagnostic Data: As stated earlier. Impression And Plan: Acute diastolic congestive heart failure. Echocardiogram is pending. The amandeep ent's BNP, troponin are secondary to his CHF and his creatinine elevation. I do not think we are luci ling with an acute coronary syndrome. EKG showed no acute changes. It is okay to continue diuresing him. We need to supplement his potassium and magnesium, watch his creatinine, watch his blood press ure, watch his I's and O's and weight. I will continue to follow him. Echocardiogram is pending. MISHA/ROLAND Voice ID: [id number] Report ID: [id number]
--- NOTE | 2019-04-23 15:25 | ECHO ---
HEIGHT: 6 ft 0 in WEIGHT: 238 lb 1.588 oz DATE OF STUDY: 04/23/[address]: Nelly Pinon MD 2-DIMENSIONAL: YES M.MODE: YES DOPPLER: YES COLOR FLOW: YES TDS: NO PORTABLE: NO DEFINITY: NO BUBBLE STUDY: NO DIAGNOSIS: CONGESTIVE HEART FAILURE CARDIAC HISTORY: CATHERIZATION: NO SURGERY: NO PROSTHETIC VALVE: NO PACEMAKER: NO MEASUREMENTS (cm) DIASTOLIC (NORMALS) SYSTOLIC (NORMALS) IVSd 1.3 (0.6-1.2) LA Diam 3.5 (1.9-4.0) LVEF 35% LVIDd 5.0 (3.5-5.7) LVIDs 4.2 (2.0-3.5) %FS 15% LVPWd 1.3 (0.6-1.2) Ao Diam 3.2 (2.0-3.7) 2 DIMENSIONAL ASSESSMENT: RIGHT ATRIUM: NORMAL LEFT ATRIUM: NORMAL RIGHT VENTRICLE: NORMAL LEFT VENTRICLE: NORMAL SIZE TRICUSPID VALVE: NORMAL MITRAL VALVE: NORMAL PULMONIC VALVE: NORMAL AORTIC VALVE: NORMAL PERICARDIAL EFFUSION: NONE AORTIC ROOT: NORMAL LEFT VENTRICULAR WALL MOTION: MODERATE TO SEVERE GLOBAL HYPOKINESIS. DOPPLER/COLOR FLOW: MILD MITRAL AND TRICUSPID REGURGITATION. COMMENTS: MILD MITRAL AND TRICUSPID REGURGITATION. MODERATE TO SEVERE GLOBAL HYPOKINESIS, EJECTION FRACTION 35%. NO EFFUSION. TECHNOLOGIST: PALMER SERRA
[2019-04-23] MEDS: ENOXAPARIN 40 MG/0.4 ML SQ SCH (17:43)
[2019-04-23] MEDS ORDERED: POTASSIUM CL SA 10 MEQ TAB PO ONE (18:00)
[2019-04-23] MEDS ORDERED: ATORVASTATIN 40 MG TAB PO SCH (21:00)
[2019-04-24] MEDS ORDERED: POTASSIUM CL SA 10 MEQ TAB PO ONE (02:15)
[2019-04-24] MEDS ORDERED: METOPROLOL TAR 50 MG TAB PO SCH ×4 (06:00→09:00)
[2019-04-24 06:05] LABS: Absolute Lymphocytes (CBC) 2.2 K/uL (0.7-4.9); Basophils % 0.8 % (0-1.3); Hematocrit 42.4 % (39.6-49.0); Lymphocytes % 19.6 % (15.3-44.8); MPV 8.2 fL (7.6-11.3); RBC Red Blood Cell Count 4.92 M/uL (4.33-5.43)
[2019-04-24 06:08] LABS: Magnesium 2.2 mg/dL (1.8-2.4); Phosphorus 3.8 mg/dL (2.5-4.9); Potassium 3.7 mmol/L (3.5-5.1)
[2019-04-24 06:24] LABS: Protime INR 1.02
[2019-04-24 07:08] LABS: Barbiturates NEGATIVE (NEGATIVE); Benzodiazepines NEGATIVE (NEGATIVE); Cocaine NEGATIVE (NEGATIVE); METHAMPHETAM NEGATIVE (NEGATIVE); Methadone NEGATIVE (NEGATIVE); Opiates NEGATIVE (NEGATIVE); Phencyclidine NEGATIVE (NEGATIVE); THC Cannibis NEGATIVE (NEGATIVE)
[2019-04-24] MEDS: ENOXAPARIN 40 MG/0.4 ML SQ SCH (08:12)
[2019-04-24] MEDS: lisinopriL 20 MG TAB PO SCH (08:13)
[2019-04-24] MEDS: POTASSIUM 25 MEQ EFFERV TAB PO SCH (08:13)
[2019-04-24] MEDS: ASPIRIN EC 81 MG TAB PO SCH (08:13)
[2019-04-24] MEDS ORDERED: FUROSEMIDE 40 MG TABLET PO SCH (09:00)
[2019-04-24 09:15] VITALS: TEMP 97.9
[2019-04-24 09:26] VITALS: BP 141/89
--- NOTE | 2019-04-24 09:49 | P.DS ---
Admission Date: 04/23/19 Discharge Date: 04/24/19 Primary Care Provider: None Disposition: ROUTINE DISCHARGE Discharge Condition: GOOD Reason for Admission: Hypertensive emergency Consultations: Cardiology-Dr. Quezada Procedures: Follow up CXR: COMPARISON: April 23, 2019 FINDINGS: Bilateral pulmonary opacities have resolved. Upper lobe vessels are prominent indicative of pulmonary venous hypertension Heart is borderline enlarged IMPRESSION: Resolution of the pulmonary edema ECHO: Ejection fraction 35% LEFT VENTRICULAR WALL MOTION: MODERATE TO SEVERE GLOBAL HYPOKINESIS. DOPPLER/COLOR FLOW: MILD MITRAL AND TRICUSPID REGURGITATION. COMMENTS: MILD MITRAL AND TRICUSPID REGURGITATION. MODERATE TO SEVERE GLOBAL HYPOKINESIS, EJECTION FRACTION 35%. NO EFFUSION. Medical problem list: Shortness of breath secondary to Acute on chronic systolic CHF with ejection fraction 35% Hypertensive emergency Noncompliance with follow up and medications Elevated troponin likely related to above Brief History of Present Illness: 34-year-old male with history of hypertension presented to emergency room with shortness of breath. Patient has not followed up with a PCP therefore has not been using any medication. Patient found to have pulmonary edema with hypertensive emergency. Patient was admitted to ICU. Patient was placed on a nitro drip and given diuretic therapy. Patient admitted for further evaluation and treatment. Hospital Course: Patient presented with shortness of breath secondary to acute on chronic systolic CHF. Patient required diuresis. Cardiology was consulted to further address. Mild elevation in troponin noted. Echocardiogram shows ejection fraction 35%. Patient has done well with diuresis. Repeat chest x-ray shows resolution of pulmonary edema. Patient without shortness of breath at discharge. Blood pressure stable. At discharge patient will continue with a 1500 cc per day fluid restriction and low-salt diet. He is to monitor his weight daily. If his weight increases by more than 5 lb he is to contact cardiology or his PCP to further address. At discharge patient will continue with aspirin 81 mg daily, metoprolol 100 mg 1 pill twice daily, lisinopril 40 mg daily, and Lasix 40 mg daily. Nitroglycerin will also be provided for chest pain. Further adjustment in medication can be done by cardiology. Patient will need to follow up with cardiology in 1-2 weeks to continue his care. Patient will likely require further cardiac evaluation. Education on CHF and hypertension provided. Compliance with medications and follow up highly recommended. Patient also presented with hypertensive emergency. As stated above patient had not followed up with a PCP therefore was not taking any medication. Patient was treated with IV nitro drip. Blood pressure medication started. Patient was weaned off nitro. Blood pressure now stable at this time. At discharge he will continue with metoprolol 100 mg 1 pill twice daily and lisinopril 40 mg daily. Recommend to maintain blood pressures less 150/80. Further adjustment can be done by his PCP or cardiology. Patient with noncompliance with follow up and medications. Patient plans to establish care with Cardiology and a PCP. Education on compliance addressed in detail. Patient plans to be compliant. Vital Signs/Physical Exam: Temp Pulse Resp BP Pulse Ox 97.9 F 79 16 141/89 H 98 04/24/19 08:00 04/24/19 09:25 04/24/19 08:00 04/24/19 09:25 04/24/19 08:00 General: Alert, In no apparent distress, Oriented x3, Cooperative HEENT: Atraumatic Neck: Supple Respiratory: Clear to auscultation bilaterally, Normal air movement Cardiovascular: Normal pulses, Regular rate/rhythm Gastrointestinal: Normal bowel sounds, Soft and benign, Non-distended, No tenderness, No masses, No rebound, No guarding Musculoskeletal: No erythema, No tenderness, No warmth Integumentary: No tenderness/swelling, No erythema, No warmth, No cyanosis Neurological: Normal speech, Normal strength at 5/5 x4 extr, Normal tone, Normal affect Laboratory Data at Discharge: WBC 11.0 K/uL (4.3-10.9) H D 04/24/19 05:13 Hgb 14.3 g/dL (13.6-17.9) 04/24/19 05:13 Hct 42.4 % (39.6-49.0) 04/24/19 05:13 Plt Count 358 K/uL (152-406) 04/24/19 05:13 PT 12.0 SECONDS (9.5-12.5) 04/24/19 05:13 INR 1.02 04/24/19 05:13 Sodium 137 mmol/L (136-145) 04/24/19 05:13 Potassium 3.7 mmol/L (3.5-5.1) 04/24/19 05:13 BUN 29 mg/dL (7-18) H 04/24/19 05:13 Creatinine 1.83 mg/dL (0.55-1.3) H 04/24/19 05:13 Glucose 97 mg/dL (74-106) 04/24/19 05:13 Phosphorus 3.8 mg/dL (2.5-4.9) D 04/24/19 05:13 Magnesium 2.2 mg/dL (1.8-2.4) D 04/24/19 05:13 Total Bilirubin 0.7 mg/dL (0.2-1.0) 04/23/19 05:25 AST 27 U/L (15-37) 04/23/19 05:25 ALT 42 U/L (12-78) 04/23/19 05:25 Alkaline Phosphatase 75 U/L (45-117) 04/23/19 05:25 Troponin I 0.08 ng/mL (0.0-0.045) H 04/23/19 13:50 Home Medications: Aspirin Chewable [Aspirin Chewable*] 81 mg PO DAILY 04/23/19 Atorvastatin Calcium [Lipitor] 40 mg PO BEDTIME #30 tab 04/24/19 Furosemide [Lasix*] 40 mg PO DAILY #30 tab 04/24/19 Metoprolol Tartrate 100 mg PO BID #60 tablet 04/24/19 Nitroglycerin [Nitrostat] 0.4 mg SL SEECOM #1 btl 04/24/19 lisinopriL [Lisinopril] 40 mg PO DAILY #30 tablet 04/24/19 New Medications: Atorvastatin Calcium [Lipitor] 40 mg PO BEDTIME #30 tab Furosemide [Lasix*] 40 mg PO DAILY #30 tab lisinopriL [Lisinopril] 40 mg PO DAILY #30 tablet Metoprolol Tartrate 100 mg PO BID #60 tablet Nitroglycerin [Nitrostat] 0.4 mg SL SEECOM #1 btl Patient Discharge Instructions: 1. Patient will need to follow up with a PCP to establish care in follow this hospitalization. 2. Patient presented with shortness of breath secondary to acute on chronic systolic CHF. Patient required diuresis. Cardiology was consulted to further address. Mild elevation in troponin noted. Echocardiogram shows ejection fraction 35%. Patient has done well with diuresis. Repeat chest x-ray shows resolution of pulmonary edema. Patient without shortness of breath at discharge. Blood pressure stable. At discharge patient will continue with a 1500 cc per day fluid restriction and low-salt diet. He is to monitor his weight daily. If his weight increases by more than 5 lb he is to contact cardiology or his PCP to further address. At discharge patient will continue with aspirin 81 mg daily , metoprolol 100 mg 1 pill twice daily, lisinopril 40 mg daily, and Lasix 40 mg daily. Nitroglycerin will also be provided for chest pain. Further adjustment in medication can be done by cardiology. Patient will need to follow up with cardiology in 1-2 weeks to continue his care. Patient will likely require further cardiac evaluation. Education on CHF and hypertension provided. Compliance with medications and follow up highly recommended. 3. Patient also presented with hypertensive emergency. As stated above patient had not followed up with a PCP therefore was not taking any medication. Patient was treated with IV nitro drip. Blood pressure medication started. Patient was weaned off nitro. Blood pressure now stable at this time. At discharge he will continue with metoprolol 100 mg 1 pill twice daily and lisinopril 40 mg daily. Recommend to maintain blood pressures less 150/80. Further adjustment can be done by his PCP or cardiology. 4. Patient with noncompliance with follow up and medications. Patient plans to establish care with Cardiology and a PCP. Education on compliance addressed in detail. Patient plans to be compliant. Diet: AHA Activity: Ad noble Time spent managing pt's care (in minutes): 55
[2019-04-24 09:55] VITALS: O2SAT 98
--- NOTE | 2019-04-24 16:35 | EKG ---
Test Date: 2019-04-24 Test Time: 08:19:08 Paraffiner: ARPIT MEASUREMENT RESULTS: Intervals: Rate: 77 NV: 154 QRSD: 112 QT: 402 QTc: 454 [place]: P: 54 NV: 154 QRS: 27 T: 237 INTERPRETIVE STATEMENTS: Normal sinus rhythm Right atrial enlargement Left ventricular hypertrophy with repolarization abnormality Abnormal ECG Compared to ECG 04/23/2019 00:39:04 Sinus tachycardia no longer present Electronically Signed On 04-24-19 16:33:56 DIRECTOR TRADING by Agapito Quezada
== END 2019-04-24 11:30 | disposition home or self-care (01) | DRG 304 ==
LOC: ER 00:05 → ERHOLD 04:04 → 2ND 14:04
PROVIDERS: ADMIT Hospitalist; ATTEND Family Medicine
DX: I16.1 Hypertensive emergency (principal); I50.33 Acute on chronic diastolic (congestive) heart failure; I11.0 Hypertensive heart disease with heart failure; R79.89 Other specified abnormal findings of blood chemistry; Z91.19 Patient's noncompliance with other medical treatment and regimen
CPT/HCPCS: 36415; 71045; 71046; 80048; 80053; 80076; 80307; 81015; 83735; 83880; 84100; 84132; 84484; 85025; 85610; 93005; 93306; 96365; 96366; 96367; 96372; 96375; 99285; J0360; J1650; J1940; J2405; J3475; J7030

== ENCOUNTER 2019-09-15 10:38 | Emergency (ER) | payer SELFPAY ==
--- NOTE | 2019-09-15 11:51 | RAD REPORT ---
EXAM DESCRIPTION: RAD - Humerus Right - 09/15/2019 11:45 am CLINICAL HISTORY: PAIN COMPARISON: Chest Pa And Lat (2 Views) dated 04/23/2019; Chest Single View dated 04/23/2019 FINDINGS: No acute fracture or dislocation. Ossification is seen in the soft tissues with adjacent c ortical thickening in the region of the midshaft right humerus. This may be related to previous traum a. Advise correlation with previous trauma history in this region.
--- NOTE | 2019-09-15 12:04 | ER ---
Nurse's Notes [facility] Name: Ezequiel Padron Age: 34 yrs Sex: Male : 1985 Arrival Date: 09/15/2019 Time: 10:40 Bed 23 Private MD: Diagnosis: Contusion of right upper arm Presentation: 09/14 10:47 Chief complaint: Patient states: I was trying to fix my ceiling fan yesterday, I fell ca1 and landed on my R arm. Reports pain on between elbow and shoulder. Coronavirus screen: Proceed with normal triage. Patient denies a cough. Patient denies shortness of breath or difficulty breathing. Patient denies measured and/or subjective temperature greater than 100.4F prior to today's visit. Patient denies travel on a cruise ship or to a country the [facility] currently lists as an affected area. Patient denies contact with known and/or suspected case of COVID-19. Ebola Screen: Patient negative for fever greater than or equal to 101.5 degrees Fahrenheit, and additional compatible Ebola Virus Disease symptoms Patient denies exposure to infectious person. Patient denies travel to an Ebola-affected area in the 21 days before illness onset. No symptoms or risks identified at this time. Initial Sepsis Screen: Does the patient meet any 2 criteria? No. Patient's initial sepsis screen is negative. Does the patient have a suspected source of infection? No. Patient's initial sepsis screen is negative. Risk Assessment: Do you want to hurt yourself or someone else? Patient reports no desire to harm self or others. Onset of symptoms was September 14, 2019. 10:47 Method Of Arrival: Ambulatory ca1 10:47 Acuity: HERMELINDA 3 ca1 Triage Assessment: 12:00 General: Behavior is calm, cooperative. iw 12:50 General: Appears in no apparent distress. iw Historical: - Allergies: 10:53 HTN medication; ca1 10:53 Morphine; ca1 - Home Meds: 10:53 lisinopril Oral [Active]; ca1 - PMHx: 10:53 Hypertension; ca1 - PSHx: 10:53 right leg surgery; ca1 - Immunization history:: Adult Immunizations not up to date. - Social history:: Smoking status: Patient denies any tobacco usage or history of. Screenin:55 Abuse screen: Denies threats or abuse. Denies injuries from another. Nutritional iw screening: No deficits noted. Tuberculosis screening: No symptoms or risk factors identified. Fall Risk None identified. Assessment: 11:30 General: Appears in no apparent distress. comfortable, Behavior is calm, cooperative. iw Pain: Complains of pain in right arm. Neuro: Level of Consciousness is awake, alert, obeys commands, Oriented to person, place, time, situation, Moves all extremities. Full function. Cardiovascular: Patient's skin is warm and dry. Respiratory: Respiratory effort is even, unlabored, Respiratory pattern is regular, symmetrical. GI: No signs and/or symptoms were reported involving the gastrointestinal system. Derm: Skin is intact, is healthy with good turgor. Musculoskeletal: Range of motion: intact in all extremities. Vital Signs: 10:47 BP 191 / 137; Pulse 69; Resp 16 S; Temp 98.5; Pulse Ox 99% on R/A; Weight 104.33 kg; ca1 Height 6 ft. 0 in. (182.88 cm) (R); Pain 2/10; 10:47 Body Mass Index 31.19 (104.33 kg, 182.88 cm) ca1 ED Course: 10:40 Patient arrived in ED. ag5 10:43 Lg Ruiz PA is PHCP. [facility] 10:43 Baldemar Harden MD is Attending Physician. [facility] 10:51 Triage completed. ca1 10:53 Arm band placed on right wrist. ca1 11:30 Patient has correct armband on for positive identification. iw 11:45 XRAY Humerus RIGHT In Process Unspecified. EDMS 12:06 Maxine Cooper, RN is Primary Nurse. iw 12:49 No provider procedures requiring assistance completed. Patient did not have IV access iw during this emergency room visit. Administered Medications: No medications were administered Outcome: 12:04 Discharge ordered by . m 12:49 Discharged to home ambulatory. iw 12:49 Condition: good 12:49 Discharge instructions given to patient, Instructed on discharge instructions, follow up and referral plans. Demonstrated understanding of instructions, follow-up care. 12:50 Patient left the ED. iw Signatures: Dispatcher [employer] EDMS Lg Ruiz PA PA jmm Williams, Irene, RN RN iw Gladys Beltrán RN RN ca1 Tamie Beatty ag5 Corrections: (The following items were deleted from the chart) 10:53 10:47 Acuity: HERMELINDA 4 ca1 ca1 10:53 10:47 Pulse 69bpm; Resp 16bpm; Spontaneous; Pulse Ox 99% RA; Temp 98.5F; 104.33 kg; ca1 Height 6 ft. 0 in. Reported; BMI: 31.1; Pain 2/10; ca1
--- NOTE | 2019-09-15 12:04 | EDPHYS ---
Physician Documentation [facility] Name: Ezequiel Padron Age: 34 yrs Sex: Male : 1985 Arrival Date: 09/15/2019 Time: 10:40 Bed 23 Private MD: ED Physician Baldemar Harden HPI: 09/14 10:55 This 34 yrs old Black Male presents to ER via Ambulatory with complaints of Arm Pain. jmm 10:55 The patient or guardian complains of injury, pain. Onset: The symptoms/episode jmm began/occurred acutely, just prior to arrival. Modifying factors: The symptoms are alleviated by nothing. the symptoms are aggravated by movement. Associated signs and symptoms: Pertinent positives: pain. This is a 34 year old male with a history of htn that presents to the ED with complaints of right arm pain after falling while working on a celiing fan. Patient denies other injury. . Historical: - Allergies: 10:53 HTN medication; ca1 10:53 Morphine; ca1 - Home Meds: 10:53 lisinopril Oral [Active]; ca1 - PMHx: 10:53 Hypertension; ca1 - PSHx: 10:53 right leg surgery; ca1 - Immunization history:: Adult Immunizations not up to date. - Social history:: Smoking status: Patient denies any tobacco usage or history of. ROS: 10:55 Constitutional: Negative for fever, chills, and weight loss, Cardiovascular: Negative jmm for chest pain, palpitations, and edema, Respiratory: Negative for shortness of breath, cough, wheezing, and pleuritic chest pain. 10:55 MS/extremity: Positive for pain. 10:55 All other systems are negative. Exam: 10:55 Constitutional: This is a well developed, well nourished patient who is awake, alert, jmm and in no acute distress. Head/Face: atraumatic. Eyes: EOMI, no conjunctival erythema appreciated ENT: Moist Mucus Membranes Neck: Trachea midline, Supple Chest/axilla: Normal chest wall appearance and motion. Cardiovascular: Regular rate and rhythm. No edema appreciated Respiratory: Normal respirations, no respiratory distress appreciated Abdomen/GI: Non distended, soft Back: Normal ROM Skin: General appearance color normal 10:55 Musculoskeletal/extremity: right proximal humeral region ttp, no obvious deformity, full radial pulse, compartments are soft, NVI. 10:55 Skin: Appearance: Color: normal in color. 10:55 Neuro: Orientation: is normal, Mentation: is normal, Memory: is normal. 10:55 Psych: Behavior/mood is pleasant, cooperative. Vital Signs: 10:47 BP 191 / 137; Pulse 69; Resp 16 S; Temp 98.5; Pulse Ox 99% on R/A; Weight 104.33 kg; ca1 Height 6 ft. 0 in. (182.88 cm) (R); Pain 2/10; 10:47 Body Mass Index 31.19 (104.33 kg, 182.88 cm) ca1 MDM: 11:02 Patient medically screened. [facility] 12:00 Data reviewed: vital signs, nurses notes. Data reviewed: radiologic studies, plain jmm films. Counseling: I had a detailed discussion with the patient and/or guardian regarding: the historical points, exam findings, and any diagnostic results supporting the discharge/admit diagnosis, the need for outpatient follow up, to return to the emergency department if symptoms worsen or persist or if there are any questions or concerns that arise at home. ED course: Patient is advised to follow up with orthopedics for further evaluation. Patient is otherwise given strict return precautions. patient understood and agrees with the plan of care. . 09/14 10:55 Order name: XRAY Humerus RIGHT; Complete Time: 11:56 ca1 Administered Medications: No medications were administered Disposition: 09/15 09:46 Co-signature as Attending Physician, Baldemar Harden MD I agree with the assessment and [facility] plan of care. Disposition: 09/15/19 12:04 Discharged to Home. Impression: Contusion of right upper arm. - Condition is Stable. - Medication Reconciliation Form, Thank You Letter, Antibiotic Education, Prescription Opioid Use, Work release form, Family Work Release form. - Follow up: Private Physician; When: 2 - 3 days; Reason: Recheck today's complaints, Continuance of care, Re-evaluation by your physician. Signatures: Dispatcher [employer] EDBaldemar Stephens MD MD cha Mickail, Joel, PA PA jmm Williams, Irene, RN RN iw Gladys Beltrán RN RN ca1 Corrections: (The following items were deleted from the chart) 09/14 12:50 12:04 09/15/2019 12:04 Discharged to Home. Impression: Contusion of right upper arm. iw Condition is Stable. Forms are Medication Reconciliation Form, Thank You Letter, Antibiotic Education, Prescription Opioid Use. Follow up: Private Physician; When: 2 - 3 days; Reason: Recheck today's complaints, Continuance of care, Re-evaluation by your physician. apoorva
[2019-09-15 13:11] VITALS: BP 191/137; TEMP 98.5; O2SAT 99
== END 2019-09-15 12:50 | disposition home or self-care (01) ==
LOC: ER 10:38
DX: S40.021A Contusion of right upper arm, initial encounter (principal); W19.XXXA Unspecified fall, initial encounter; Y93.89 Activity, other specified; Y92.9 Unspecified place or not applicable; I10 Essential (primary) hypertension; Z88.5 Allergy status to narcotic agent; Z88.8 Allergy status to other drugs, medicaments and biological substances
CPT/HCPCS: 99283

== ENCOUNTER 2020-07-06 05:25 | Inpatient (IN) | payer SELFPAY ==
[2020-07-06 05:59] LABS: Absolute Lymphocytes (CBC) 2.9 K/uL (0.7-4.9); Hematocrit 39.1 % (39.6-49.0); MPV 8.9 fL (7.6-11.3); Protime INR 0.94; RBC Red Blood Cell Count 4.43 M/uL (4.33-5.43)
[2020-07-06] MEDS ORDERED: NITROGLYCERIN 1 GM PKT TD ONE (06:00)
[2020-07-06] MEDS ORDERED: FUROSEMIDE 40 MG/4 ML VIAL ONE (06:02)
[2020-07-06] MEDS ORDERED: ONDANSETRON 4 MG/2 ML VIAL ONE (06:02)
[2020-07-06] MEDS ORDERED: FENTANYL CITR 100 MCG/2 ML ONE (06:02)
[2020-07-06 06:14] LABS: Albumin 3.2 g/dL (3.4-5.0); Bilirubin Direct 0.1 mg/dL (0-0.2); Bilirubin Total 0.3 mg/dL (0.2-1.0); Magnesium 1.9 mg/dL (1.8-2.4); Potassium 3.4 mmol/L (3.5-5.1); Protein, Total 7.3 g/dL (6.4-8.2); Troponin (Emerg Dept Use Only) 0.14 ng/mL (0.0-0.045)
[2020-07-06] MEDS: lisinopriL 20 MG TAB PO SCH ×2 (06:33→09:00)
[2020-07-06] MEDS: ASPIRIN EC 81 MG TAB PO SCH ×2 (06:33→09:00)
[2020-07-06] MEDS: METOPROLOL TAR 50 MG TAB PO SCH ×4 (06:33→21:35)
[2020-07-06] MEDS ORDERED: IPRATROPIUM BROM 0.5MG/2.5ML ONE (06:37)
[2020-07-06] MEDS ORDERED: LEVALBUTEROL 1.25 MG/3 ML NEB ONE (06:37)
--- NOTE | 2020-07-06 06:40 | EDPHYS ---
Physician Documentation [facility] Name: Ezequiel Padron Age: 35 yrs Sex: Male : 1985 Arrival Date: 07/06/2020 Time: 05:25 Bed 7 Private MD: ED Physician Baldemar Harden HPI: 07/06 05:46 This 35 yrs old Black Male presents to ER via Ambulatory with complaints of Breathing bernabe Difficulty. 05:46 The patient has shortness of breath at rest, with light activity. Onset: The bernabe symptoms/episode began/occurred 3 day(s) ago. Duration: The symptoms are continuous, and are steadily getting worse. The patient's shortness of breath is aggravated by coughing, exertion, light activity. Associated signs and symptoms: Pertinent positives: diaphoresis. Severity of symptoms: in the emergency department the symptoms have improved. The patient has experienced similar episodes in the past, multiple times. Historical: - Allergies: 05:36 HTN medication; rr5 05:36 Morphine; rr5 - Home Meds: 05:36 water pill [Active]; rr5 06:50 lisinopril 10 mg oral tab 1 tab twice a day [Active]; metoprolol tartrate 100 mg Oral rr5 tab 1 tab once daily [Active]; - PMHx: 05:36 Hypertension; CHF; rr5 - PSHx: 05:36 None; rr5 - Immunization history:: Adult Immunizations not up to date. - Social history:: Smoking status: unknown Patient uses alcohol, occasionally. Patient/guardian denies using street drugs. ROS: 05:51 Constitutional: Negative for fever, chills, and weight loss, Eyes: Negative for injury, bernabe pain, redness, and discharge, ENT: Negative for injury, pain, and discharge, Neck: Negative for injury, pain, and swelling, Cardiovascular: Negative for chest pain, palpitations, and edema, Abdomen/GI: Negative for abdominal pain, nausea, vomiting, diarrhea, and constipation, Back: Negative for injury and pain, : Negative for injury, bleeding, discharge, and swelling, MS/Extremity: Negative for injury and deformity, Skin: Negative for injury, rash, and discoloration, Neuro: Negative for headache, weakness, numbness, tingling, and seizure, Psych: Negative for depression, anxiety, suicide ideation, homicidal ideation, and hallucinations, Allergy/Immunology: Negative for hives, rash, and allergies, Endocrine: Negative for neck swelling, polydipsia, polyuria, polyphagia, and marked weight changes, Hematologic/Lymphatic: Negative for swollen nodes, abnormal bleeding, and unusual bruising. 05:51 Respiratory: Positive for cough, dyspnea on exertion, orthopnea, shortness of breath, on exertion. Exam: 05:51 Constitutional: This is a well developed, well nourished patient who is awake, alert, bernabe and in no acute distress. Head/Face: Normocephalic, atraumatic. Eyes: Pupils equal round and reactive to light, extra-ocular motions intact. Lids and lashes normal. Conjunctiva and sclera are non-icteric and not injected. Cornea within normal limits. Periorbital areas with no swelling, redness, or edema. ENT: Nares patent. No nasal discharge, no septal abnormalities noted. Tympanic membranes are normal and external auditory canals are clear. Oropharynx with no redness, swelling, or masses, exudates, or evidence of obstruction, uvula midline. Mucous membranes moist. Neck: Trachea midline, no thyromegaly or masses palpated, and no cervical lymphadenopathy. Supple, full range of motion without nuchal rigidity, or vertebral point tenderness. No Meningismus. Chest/axilla: Normal chest wall appearance and motion. Nontender with no deformity. No lesions are appreciated. Cardiovascular: Regular rate and rhythm with a normal S1 and S2. No gallops, murmurs, or rubs. Normal PMI, no JVD. No pulse deficits. Abdomen/GI: Soft, non-tender, with normal bowel sounds. No distension or tympany. No guarding or rebound. No evidence of tenderness throughout. Back: No spinal tenderness. No costovertebral tenderness. Full range of motion. Male : Normal genitalia with no discharge or lesions. Skin: Warm, dry with normal turgor. Normal color with no rashes, no lesions, and no evidence of cellulitis. MS/ Extremity: Pulses equal, no cyanosis. Neurovascular intact. Full, normal range of motion. Neuro: Awake and alert, GCS 15, oriented to person, place, time, and situation. Cranial nerves II-XII grossly intact. Motor strength 5/5 in all extremities. Sensory grossly intact. Cerebellar exam normal. Normal gait. Psych: Awake, alert, with orientation to person, place and time. Behavior, mood, and affect are within normal limits. 05:51 Respiratory: mild respiratory distress is noted, Respirations: normal, no acute changes, Breath sounds: rales, that are mild, are located in both bases, decreased breath sounds. 05:56 ECG was reviewed by the Attending Physician. bernabe Vital Signs: 05:33 BP 176 / 136; Pulse 88; Resp 22; Temp 98.5; Pulse Ox 94% ; Weight 108.86 kg; Height 6 rr5 ft. 0 in. (182.88 cm); Pain 0/10; 05:59 BP 169 / 119; Pulse 89; Resp 24; Pulse Ox 94% on 30% BiPAP; rr5 06:46 BP 165 / 121; Pulse 85; Resp 24; Pulse Ox 100% on 2 lpm NC; rr5 07:56 BP 183 / 134; Pulse 90; Resp 22; Temp 98.4(O); Pulse Ox 96% on 2 lpm NC; mh5 08:22 BP 166 / 116; Pulse 86; Resp 20; Pulse Ox 98% on 2 lpm NC; Pain 0/10; ss 08:40 BP 160 / 113; Pulse 91; Resp 20; Pulse Ox 96% on 2 lpm NC; Pain 0/10; ss 05:33 Body Mass Index 32.55 (108.86 kg, 182.88 cm) rr5 MDM: 05:42 Patient medically screened. [facility] 05:51 Differential diagnosis: asthma, Bronchitis CHF exacerbation, hypertensive crisis, bernabe Malignant HTN, pneumonia, Pneumothorax pulmonary edema, Unstable Angina. Antibiotic administration: Not indicated. The patient's Wells Deep Vein Thrombosis Score was calculated as follows: Total Score: 0-2 Pts- Low Risk. The patient's pulmonary embolism risk score was calculated as follows: Total Score: 3-6 points. This patient was found to be at moderate risk for a pulmonary embolism by using the Well's assessment criteria. Immunization status:. Data reviewed: vital signs, nurses notes, lab test result(s), EKG, radiologic studies, plain films. Data interpreted: threat monitoring analyst: rate is 88 beats/min, rhythm is regular, Pulse oximetry: on room air is 94 %. Test interpretation: by ED physician or midlevel provider: ECG, plain radiologic studies. 07/06 05:34 Order name: Basic Metabolic Panel ea 03/03 05:34 Order name: CBC with Diff ea 07/06 05:34 Order name: LFT's; Complete Time: 06:33 ea 07/06 05:34 Order name: Magnesium; Complete Time: 06:33 ea 07/06 05:34 Order name: NT PRO-BNP; Complete Time: 06:33 ea 07/06 05:34 Order name: PT-INR; Complete Time: 06:07 ea 07/06 05:34 Order name: Troponin (emerg Dept Use Only); Complete Time: 06:33 ea 07/06 05:34 Order name: XRAY Chest (1 view) ea 07/06 05:34 Order name: Basic Metabolic Panel; Complete Time: 06:33 EDMS 07/06 05:34 Order name: CBC with Automated Diff; Complete Time: 06:07 EDMS 07/06 06:07 Order name: COVID-19 : Document "Date of Symptom Onset" if Symptomatic. [facility] 07/06 06:07 Order name: CORONAVIRUS EDTN 07/06 06:41 Order name: Urine Dipstick--Ancillary (enter results); Complete Time: 06:56 em 07/06 08:06 Order name: SARS-COV-2 RT PCR EDMS 07/06 05:34 Order name: EKG; Complete Time: 05:34 ea 07/06 05:34 Order name: Cardiac monitoring; Complete Time: 05:38 ea 07/06 05:45 Order name: BIPAP [facility] 07/06 06:34 Order name: Echo with Doppler EDMS 07/06 05:34 Order name: EKG - Nurse/Tech; Complete Time: 05:38 ea 07/06 05:34 Order name: IV Saline Lock; Complete Time: 05:38 ea 07/06 05:34 Order name: Labs collected and sent; Complete Time: 05:38 ea 07/06 05:34 Order name: O2 Per Protocol; Complete Time: 05:38 ea 07/06 05:34 Order name: O2 Sat Monitoring; Complete Time: 05:38 ea 07/06 05:45 Order name: Urine Dipstick-Ancillary (obtain specimen); Complete Time: 06:32 bernabe EC:56 Rate is 88 beats/min. Rhythm is regular. QRS [place] is Normal. SD interval is normal. QRS bernabe interval is normal. QT interval is normal. No Q waves. T waves are Normal. No ST changes noted. Clinical impression: NSR w/ Non-specific ST/T Changes, LVH, and No evidence of ischemia. Interpreted by me. Reviewed by me. Administered Medications: 05:50 Drug: Lasix 40 mg Route: IVP; Site: right antecubital; rr5 06:24 Follow up: Response: No adverse reaction; Marked relief of symptoms rr5 05:51 Drug: Zofran (Ondansetron) 4 mg Route: IVP; Site: right antecubital; rr5 06:24 Follow up: Response: No adverse reaction rr5 05:53 Drug: Nitro-Bid Ointment 2 % 1 inches Route: Transdermal; Site: anterior chest wall; rr5 06:24 Follow up: Response: No adverse reaction; Marked relief of symptoms rr5 05:53 Drug: fentaNYL (PF) 25 mcg {Note: rass 0.} Route: IVP; Site: right antecubital; rr5 06:24 Follow up: Response: No adverse reaction; RASS: Alert and Calm (0) rr5 06:23 Drug: AtroVENT Aerosol 0.5 mg Route: Inhalation; rr5 06:24 Drug: Xopenex 2.5 mg Route: Inhalation; rr5 06:42 Drug: Lovenox 100 mg Route: Sub-Q; Site: right lower abdomen; rr5 07:13 Follow up: Response: No adverse reaction ss 06:45 Drug: Pepcid 20 mg Route: IVP; Site: right antecubital; rr5 07:13 Follow up: Response: No adverse reaction; No change in condition ss 06:47 Drug: Potassium Effervescent Tablet 50 mEq Route: PO; rr5 07:14 Follow up: Response: No adverse reaction ss 06:48 Drug: Aspirin Chewable Tablet 324 mg Route: PO; rr5 07:13 Follow up: Response: No adverse reaction ss 06:58 Drug: HydrALAZINE 25 mg Route: PO; rr5 09:34 Follow up: Response: No adverse reaction ss 06:58 Drug: Lisinopril 10 mg Route: PO; rr5 09:34 Follow up: Response: No adverse reaction ss Disposition: 05:51 Critical Care:. bernabe Disposition: 07/06/20 06:39 Hospitalization ordered by Osbaldo Quinn for Observation. Preliminary diagnosis are Dyspnea, Systolic (congestive) heart failure, Hypokalemia, Essential (primary) hypertension, Hypoxemia. - Bed requested for Telemetry/MedSurg (observation). - Status is Observation. ss - Condition is Stable. - Problem is new. - Symptoms have improved. Critical care time excluding procedures: 05:51 Critical care time: Bedside Care: 20 minutes. Total time: 20 minutes bernabe Signatures: Dispatcher [employer] EDMS Safia Russo RN RN dw Anderson, Corey, MD MD cha Smirch, Shelby, RN RN ss Ivory Doshi RN RN ea Roque, Raymond RN RN rr5 Corrections: (The following items were deleted from the chart) 07:03 05:36 Home Meds: lisinopril Oral; rr5 rr5 08:29 06:39 Hospitalization Ordered by Osbaldo Quinn DO for Observation. Preliminary dw diagnosis is Dyspnea; Systolic (congestive) heart failure; Hypokalemia; Essential (primary) hypertension; Hypoxemia. Bed requested for Telemetry/MedSurg (observation). Status is Observation. Condition is Stable. Problem is new. Symptoms have improved. bernabe 09:34 08:29 07/06/2020 06:39 Hospitalization Ordered by Osbaldo Quinn DO for Observation. ss Preliminary diagnosis is Dyspnea; Systolic (congestive) heart failure; Hypokalemia; Essential (primary) hypertension; Hypoxemia. Bed requested for Telemetry/MedSurg (observation). Status is Observation. Condition is Stable. Problem is new. Symptoms have improved. dw
--- NOTE | 2020-07-06 06:40 | ER ---
Nurse's Notes [facility] Name: Ezequiel Padron Age: 35 yrs Sex: Male : 1985 Arrival Date: 07/06/2020 Time: 05:25 Bed 7 Private MD: Diagnosis: Dyspnea;Systolic (congestive) heart failure;Hypokalemia;Essential (primary) hypertension;Hypoxemia Presentation: 07/06 05:33 Chief complaint: Patient states: I can't breath started yesterday it gets worse today. rr5 I stopped taking my water pill denies pain, fever, cough. Coronavirus screen: Client denies travel out of the [place] in the last 14 days. At this time, the client does not indicate any symptoms associated with coronavirus-19. Ebola Screen: Patient negative for fever greater than or equal to 101.5 degrees Fahrenheit, and additional compatible Ebola Virus Disease symptoms Patient denies exposure to infectious person. Patient denies travel to an Ebola-affected area in the 21 days before illness onset. Initial Sepsis Screen: Does the patient meet any 2 criteria? RR > 20 per min. Does the patient have a suspected source of infection? No. Patient's initial sepsis screen is negative. Risk Assessment: Do you want to hurt yourself or someone else? Patient reports no desire to harm self or others. Onset of symptoms was July 05, 2020. 05:33 Method Of Arrival: Ambulatory rr5 05:33 Acuity: HERMELINDA 3 rr5 Triage Assessment: 05:33 Respiratory: the patient has mild shortness of breath. rr5 05:33 General: Appears uncomfortable. rr5 05:33 General: Behavior is calm, cooperative. Respiratory: Onset: The symptoms/episode rr5 began/occurred gradually. Historical: - Allergies: 05:36 HTN medication; rr5 05:36 Morphine; rr5 - Home Meds: 05:36 water pill [Active]; rr5 06:50 lisinopril 10 mg oral tab 1 tab twice a day [Active]; metoprolol tartrate 100 mg Oral rr5 tab 1 tab once daily [Active]; - PMHx: 05:36 Hypertension; CHF; rr5 - PSHx: 05:36 None; rr5 - Immunization history:: Adult Immunizations not up to date. - Social history:: Smoking status: unknown Patient uses alcohol, occasionally. Patient/guardian denies using street drugs. Screenin:36 Abuse screen: Denies threats or abuse. Denies injuries from another. Nutritional rr5 screening: No deficits noted. Tuberculosis screening: No symptoms or risk factors identified. Fall Risk IV access (20 points). Total Pressley Fall Scale indicates No Risk (0-24 pts). Assessment: 05:37 General: Appears in no apparent distress. uncomfortable, Behavior is cooperative, rr5 appropriate for age. Pain: Denies pain. Neuro: Level of Consciousness is awake, alert, obeys commands, Oriented to person, place, time, situation. Cardiovascular: Capillary refill < 3 seconds Patient's skin is warm and dry. Respiratory: Reports hard to breath Airway is patent Respiratory effort is even, unlabored, Respiratory pattern is regular, symmetrical, GI: No signs and/or symptoms were reported involving the gastrointestinal system. : No signs and/or symptoms were reported regarding the genitourinary system. EENT: No signs and/or symptoms were reported regarding the EENT system. Derm: Skin is intact, is healthy with good turgor, Skin temperature is warm. Musculoskeletal: Capillary refill < 3 seconds. 05:55 Respiratory: Patient placed on BiPAP: Inspiratory Pressure: 8 Expiratory (EPAP) rr5 Pressure: 4 FiO2%: 30 Respiratory Rate: 13. 06:01 Reassessment: Patient appears in no apparent distress at this time. Patient is alert, rr5 oriented x 3, equal unlabored respirations, skin warm/dry/pink. Patient states feeling better. 06:20 Reassessment: Patient appears in no apparent distress at this time. Patient is alert, rr5 oriented x 3, equal unlabored respirations, skin warm/dry/pink. seen and examined by hospitalist at bedside. 06:30 Reassessment: patient feels better with verbal order of hospitalist try to shift to rr5 nasal cannula. 06:46 Reassessment: Patient appears in no apparent distress at this time. Patient is alert, rr5 oriented x 3, equal unlabored respirations, skin warm/dry/pink. Patient states symptoms have improved. 07:07 Reassessment: lights dimmed for comfort. Pt updated on plan of care and verbalized ss understanding reason for admission and that we are awaiting covid results and ordered to be placed by hospitalist prior to receiving room assignment. General: Appears in no apparent distress. comfortable, Behavior is calm, cooperative. Neuro: Level of Consciousness is awake, alert, obeys commands, Oriented to person, place, time, situation, Speech is normal. Cardiovascular: Pulses are palpable in right radial artery and left radial artery Rhythm is regular. Respiratory: Airway is patent Respiratory effort is even, unlabored, Breath sounds are clear bilaterally. GI: No signs and/or symptoms were reported involving the gastrointestinal system. Patient currently denies abdominal pain. Derm: Skin is pink, warm \\T\\ dry. normal. Musculoskeletal: Circulation, motion, and sensation intact. Swelling absent. 08:23 Reassessment: Patient appears in no apparent distress at this time. Patient and/or ss family updated on plan of care and expected duration. Pain level reassessed. Patient is alert, oriented x 3, equal unlabored respirations, skin warm/dry/pink. 09:16 Reassessment: Report given to SAMANTHA Almonte. Vital Signs: 05:33 BP 176 / 136; Pulse 88; Resp 22; Temp 98.5; Pulse Ox 94% ; Weight 108.86 kg; Height 6 rr5 ft. 0 in. (182.88 cm); Pain 0/10; 05:59 BP 169 / 119; Pulse 89; Resp 24; Pulse Ox 94% on 30% BiPAP; rr5 06:46 BP 165 / 121; Pulse 85; Resp 24; Pulse Ox 100% on 2 lpm NC; rr5 07:56 BP 183 / 134; Pulse 90; Resp 22; Temp 98.4(O); Pulse Ox 96% on 2 lpm NC; mh5 08:22 BP 166 / 116; Pulse 86; Resp 20; Pulse Ox 98% on 2 lpm NC; Pain 0/10; ss 08:40 BP 160 / 113; Pulse 91; Resp 20; Pulse Ox 96% on 2 lpm NC; Pain 0/10; ss 05:33 Body Mass Index 32.55 (108.86 kg, 182.88 cm) rr5 ED Course: 05:25 Patient arrived in ED. cl3 05:33 Fazal Marks RN is Primary Nurse. rr5 05:33 EKG done, by ED staff, reviewed by Baldemar Harden MD. sf 05:35 Triage completed. rr5 05:36 Arm band placed on right wrist. rr5 05:36 Patient has correct armband on for positive identification. Bed in low position. Call rr5 light in reach. delivery person on. Pulse ox on. NIBP on. 05:36 EKG done, by ED staff, reviewed by Baldemar Harden MD. rr5 05:38 Inserted saline lock: 20 gauge in right antecubital area, using aseptic technique. rr5 Blood collected. 05:42 Baldemar Harden MD is Attending Physician. bernabe 05:50 XRAY Chest (1 view) In Process Unspecified. EDMS 06:37 Osbaldo Quinn DO is Hospitalizing Provider. bernabe 07:07 No provider procedures requiring assistance completed. Patient admitted, IV remains in ss place. 07:08 COVID-19 : Document "Date of Symptom Onset" if Symptomatic. Sent. sv 07:12 Primary Nurse role handed off by Fazal Marks, SAMANTHA sv 07:15 Anny Huizar, SAMANTHA is Primary Nurse. ss 07:59 CORONAVIRUS Sent. 5 08:00 Basic Metabolic Panel Sent. 5 08:00 CBC with Diff Sent. 5 Administered Medications: 05:50 Drug: Lasix 40 mg Route: IVP; Site: right antecubital; rr5 06:24 Follow up: Response: No adverse reaction; Marked relief of symptoms rr5 05:51 Drug: Zofran (Ondansetron) 4 mg Route: IVP; Site: right antecubital; rr5 06:24 Follow up: Response: No adverse reaction rr5 05:53 Drug: Nitro-Bid Ointment 2 % 1 inches Route: Transdermal; Site: anterior chest wall; rr5 06:24 Follow up: Response: No adverse reaction; Marked relief of symptoms rr5 05:53 Drug: fentaNYL (PF) 25 mcg {Note: rass 0.} Route: IVP; Site: right antecubital; rr5 06:24 Follow up: Response: No adverse reaction; RASS: Alert and Calm (0) rr5 06:23 Drug: AtroVENT Aerosol 0.5 mg Route: Inhalation; rr5 06:24 Drug: Xopenex 2.5 mg Route: Inhalation; rr5 06:42 Drug: Lovenox 100 mg Route: Sub-Q; Site: right lower abdomen; rr5 07:13 Follow up: Response: No adverse reaction ss 06:45 Drug: Pepcid 20 mg Route: IVP; Site: right antecubital; rr5 07:13 Follow up: Response: No adverse reaction; No change in condition ss 06:47 Drug: Potassium Effervescent Tablet 50 mEq Route: PO; rr5 07:14 Follow up: Response: No adverse reaction ss 06:48 Drug: Aspirin Chewable Tablet 324 mg Route: PO; rr5 07:13 Follow up: Response: No adverse reaction ss 06:58 Drug: HydrALAZINE 25 mg Route: PO; rr5 09:34 Follow up: Response: No adverse reaction ss 06:58 Drug: Lisinopril 10 mg Route: PO; rr5 09:34 Follow up: Response: No adverse reaction ss Intake: 06:33 post lasix rr5 Output: 06:33 Urine: 400ml (Voided); Total: 400ml. rr5 06:33 post lasix rr5 Outcome: 06:39 Decision to Hospitalize by Provider. [facility] 07:07 Condition: stable ss 07:07 Instructed on the need for admit. 09:34 Admitted to Tele accompanied by [facility], via wheelchair, room 220, with oxygen, with ss chart, Report called to SAMANTHA Almonte 09:34 Patient left the ED. ss Signatures: Dispatcher [employer] EDMS Haily Golden RN RN sv Anderson, Corey, MD MD cha Smirch, Shelby, RN RN ss Martinez, Maria 5 Fazal Marks RN RN rr5 Jelena Xiong cl3 Mandeep Gonsalves RN RN sf Corrections: (The following items were deleted from the chart) 05:59 05:37 Respiratory: Reports hard to breath Airway is patent Respiratory effort is even, rr5 unlabored, Respiratory pattern is regular, symmetrical, rr5 06:02 05:58 Cardiovascular: Rhythm is rr5 rr5 06:27 05:33 Chief complaint: Patient states: I can't breath started yesterday it gets worse rr5 today. I did not take my water pill denies pain, fever, cough rr5 07:03 05:36 Home Meds: lisinopril Oral; rr5 rr5 08:23 08:22 BP 166 / 116; Pulse 86bpm; Resp 20bpm; Pulse Ox 97% RA; ss ss
[2020-07-06 06:55] LABS: Urine Blood NEGATIVE (NEG); Urine Glucose NEGATIVE (NEG); Urine Protein 1+ (NEG)
[2020-07-06] MEDS ORDERED: ASPIRIN 81 MG CHEWABLE TABLET ONE (06:55)
[2020-07-06] MEDS ORDERED: POTASSIUM 25 MEQ EFFERV TAB ONE (06:55)
[2020-07-06] MEDS ORDERED: ENOXAPARIN 100 MG/ML SYR SQ ONE (06:56)
[2020-07-06] MEDS ORDERED: FAMOTIDINE 20 MG/2 ML VIAL IV ONE (06:58)
[2020-07-06] MEDS ORDERED: HYDRALAZINE HCL 10 MG TABLET ONE (07:07)
[2020-07-06] MEDS ORDERED: lisinopriL 10 MG TAB ONE (07:14)
--- NOTE | 2020-07-06 07:20 | P.HP ---
Certification for Inpatient Patient admitted to: Observation With expected LOS: <2 Midnights Patient will require the following post-hospital care: None Practitioner: I am a practitioner with admitting privileges, knowledge of patient current condition, hospital course, and medical plan of care. Services: Services provided to patient in accordance with Admission requirements found in Title 42 Section 412.3 of the Code of Federal Regulations Patient History Date of Service: 07/06/20 Primary Care Provider: Dr. Palma Reason for admission: Shortness of breath History of Present Illness: 35-year-old male with history of hypertension, systolic CHF presents with increasing shortness of breath. Patient reports increasing shortness of breath over the past day. He admits not taking his Lasix medication for several months. He also has not been compliant with fluid restriction. Taking Lasix and fluid restriction is a big problem for him at work. 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 Patient denies any chest pain, fever, chills or headaches. Patient reported increasing shortness of breath over the past day. He has difficulty sleeping at night. He came to the ER for further evaluation. In the ER patient was hypertensive. Patient also was short of breath requiring BiPAP. Patient given IV Lasix with improvement. Chest x-ray showed pulmonary edema. White count 13.7, hemoglobin 13.5. Sodium 141, potassium 3.4. Creatinine 1.4 with a GFR 70. Troponin 0.14 with a BNP of 4083. Patient admitted for further evaluation and treatment. When I saw the patient ER, patient appeared much improved after diuresis. Patient to be transition off BiPAP. Last hospitalization 2018 showed EF of 35%. Patient reports taking lisinopril and metoprolol. Non compliant with fluid restriction and Lasix. Allergies HTN medication canno recall the nam Allergy (Uncoded 04/23/19 03:36) Nausea/Vomiting Home medications list reviewed: Yes Home Medications: Aspirin Chewable [Aspirin Chewable*] 81 mg PO DAILY 04/23/19 Atorvastatin Calcium [Lipitor] 40 mg PO BEDTIME #30 tab 04/24/19 Furosemide [Lasix*] 40 mg PO DAILY #30 tab 04/24/19 Metoprolol Tartrate 100 mg PO BID #60 tablet 04/24/19 Nitroglycerin [Nitrostat] 0.4 mg SL SEECOM #1 btl 04/24/19 lisinopriL [Lisinopril] 40 mg PO DAILY #30 tablet 04/24/19 - Past Medical/Surgical History -: Hypertension -: Systolic CHF, EF 35% -: Noncompliance with medication -: right leg surgery Psychosocial/ Personal History: Patient is . 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 - Family History Family History: Reviewed- Non-Contributory - Social History Smoking Status: Never smoker Alcohol use: Yes CD- Drugs: No Caffeine use: No Place of Residence: Home Review of Systems General: As per HPI Eyes: Unremarkable ENT: Unremarkable Respiratory: Cough, Shortness of Breath, SOB with Excertion, As per HPI Cardiovascular: Edema, As per HPI Gastrointestinal: Unremarkable Genitourinary: Unremarkable Musculoskeletal: Pedal edema, As per HPI Integumentary: Unremarkable Neurological: Unremarkable Lymphatics: Unremarkable Physical Examination - Physical Exam General: Alert, In no apparent distress, Oriented x3, Cooperative HEENT: Atraumatic, Normocephalic Neck: Supple Respiratory: Diminished (Diminished to the bases bilateral) Cardiovascular: Normal pulses, Regular rate/rhythm Gastrointestinal: Normal bowel sounds, Soft and benign, Non-distended, No tenderness, No masses, No rebound, No guarding Musculoskeletal: No tenderness, No warmth Integumentary: No tenderness/swelling (Minimal pitting edema to the lower extremities bilateral) Neurological: Normal speech, Normal strength at 5/5 x4 extr, Normal tone, Normal affect - Studies Laboratory Data (last 24 hrs) 07/06/20 05:38: PT 10.8, INR 0.94 07/06/20 05:38: WBC 13.70 H, Hgb 13.5 L, Hct 39.1 L, Plt Count 443 H 07/06/20 05:38: Sodium 141, Potassium 3.4 L, BUN 18, Creatinine 1.40 H, Glucose 125 H, Magnesium 1.9, Total Bilirubin 0.3, AST 44 H, ALT 61, Alkaline Phosphatase 78 Assessment and Plan - Plan Impression: Dyspnea secondary to acute on chronic systolic CHF with prior EF of 35% Elevated troponin suspect ischemic demand likely related to above Hypertensive urgency Non compliance with medication Plan: Dyspnea secondary to acute on chronic systolic CHF with prior EF of 35%: Patie nt will be admitted for further evaluation and treatment. Patient given IV Lasix in the emergency room. Improvement noted. Will wean off BiPAP. Continue aggressive IV diuretic therapy-Lasix 40 mg twice daily. Teach on fluid restriction. Teach on compliance with medication. Will order echocardiogram to evaluate further. Prior EF 2019 shows 35%. Restart home medication of aspirin, lisinopril 40 mg daily and metoprolol 100 mg 1 pill twice daily. Will provide IV medication for better blood pressure control. If EF still abnormal will discuss with cardiology about the possibility of initiating Entresto. Will check fasting lipid panel, monitor lab closely. Will trend troponin. DVT prophylaxis-Lovenox in place. If troponin further elevated will increase and adjust Lovenox appropriately. Patient may require further cardiac evaluation. Cardiology consulted. Await recommendation. Anticipate improvement over the next 24-48 hr. Elevated troponin suspect ischemic demand likely related to above: Continue aspirin, beta-stacey therapy, MINA-inhibitor. Patient on Lovenox. May need to adjust if further elevation of troponin noted. Obtain echocardiogram. Cardiology consulted. Await recommendation. Patient may require further cardiac evaluation. Hypertensive urgency: Restart lisinopril 40 mg daily, metoprolol 100 mg 1 pill twice daily. May need additional medication for better control. Non compliance with medication: Compliance addressed in detail with the patient. Patient understands that he needs to take his Lasix and continue with a fluid restriction at home. He understands the importance of this. Discharge Plan: Home Plan to discharge in: 24 Hours - Advance Directives Does patient have a Living Will: No Does patient have a Durable POA for Healthcare: No - Code Status/Comfort Care Code Status Assessed: Yes (Patient is full code) Time Spent Managing Pts Care (In Minutes): 55
--- NOTE | 2020-07-06 08:58 | RAD REPORT ---
EXAM DESCRIPTION: RAD - Chest Single View - 07/06/2020 5:50 am CLINICAL HISTORY: SOB Chest pain. COMPARISON: Chest Pa And Lat (2 Views) dated 04/23/2019; Chest Single View dated 04/23/2019; CHEST S KVNG VIEW dated 03/26/2015 FINDINGS: Portable technique limits examination quality. Mild interstitial pulmonary edema suspected. The heart is upper limit normal in size. No displaced fr actures.
[2020-07-06] MEDS ORDERED: ENOXAPARIN 40 MG/0.4 ML SQ SCH (09:00)
[2020-07-06] MEDS ORDERED: ACETAMINOPHEN 500 MG TAB PO PRN (09:17)
[2020-07-06] MEDS ORDERED: ONDANSETRON 4 MG/2 ML VIAL IV PRN (09:17)
[2020-07-06] MEDS: FUROSEMIDE 40 MG/4 ML VIAL IV SCH ×2 (09:17→16:21)
[2020-07-06 10:19] VITALS: BMI 31.1
[2020-07-06] MEDS: HYDRALAZINE HCL 20 MG/ML VIAL IV PRN ×2 (10:25→15:52)
[2020-07-06 12:01] LABS: CKMB Creatine Kinase MB 2.5 ng/mL (0.3-3.6); Troponin I 0.1 ng/mL (0.0-0.045)
[2020-07-06] MEDS ORDERED: NITROGLYCERIN 0.4 MG/TAB SL PRN (12:37)
[2020-07-06] MEDS ORDERED: AMLODIPINE 5 MG TAB PO SCH (12:38)
[2020-07-06] MEDS ORDERED: TRAMADOL HCL 50 MG TAB PO PRN (12:38)
[2020-07-06] MEDS ORDERED: HYDROCODONE/APAP 7.5/325 MG TAB PO PRN (12:38)
[2020-07-06 20:22] LABS: CKMB Creatine Kinase MB 2.3 ng/mL (0.3-3.6); Troponin I 0.09 ng/mL (0.0-0.045)
[2020-07-06] MEDS ORDERED: ATORVASTATIN 40 MG TAB PO SCH (21:00)
--- NOTE | 2020-07-06 23:06 | CON ---
Date of Consultation: 07/06/2020 Reason For Consultation: Acute on chronic diastolic congestive heart failure. History Of Present Illness: Mr. Padron is a 35-year-old male. He is known to have history of hypert ension. He is noncompliant with his medication. He is known to have a history of diastolic congesti ve heart failure and left ventricular hypertrophy from previous office visits. He is supposed to be taking lisinopril and metoprolol at home, but has not taken his medication and he came in with dyspne a on exertion, PND, orthopnea, pedal edema. He denied any palpitation or syncope. Denied any fever or chills. Denied any chest pain, nausea, vomiting, or diaphoresis. He has already been improved af ter IV Lasix. Allergies: HE IS ALLERGIC TO MORPHINE. Medications: At home include lisinopril and metoprolol. Past Medical History: Hypertension and diastolic congestive heart failure. Review of Systems: Negative. Social History: Negative. Family History: Noncontributory. Physical Examination: Vital Signs: His initial blood pressure was 165/121, the last one was 149/84. He was in sinus rhyth m. O2 saturation was 100% on room air. He was afebrile. Respiratory rate was 18. HEENT: Negative. Neck: Supple with no bruit. Chest: Some rales at both bases. Cardiac: Regular rhythm and rate with an S4 gallops. No murmurs or rubs. Abdomen: Benign. Extremities: 1+ edema. Diagnostic Data: EKG showed LVH. Echocardiogram showed a normal ejection fraction with left ventric ular hypertrophy, diastolic dysfunction, normal ejection fraction. His creatinine is 1.4. White cou nt was 13,000, platelet count was 443,000. His sodium was normal, potassium was 3.4, his glucose was 125. BNP was 4083. Troponin is 0.14. Impression: 1.Acute on chronic diastolic congestive heart failure. 2.Elevated troponin and BNP secondary to congestive heart failure. 3.Noncompliance. 4.Hypertension, poorly controlled. Plan: I think Mr. Padron need to stay on metoprolol and lisinopril. I think we should add Lasix to his regimen. We should add aspirin to his regimen. We should reinforce compliance with medication, which will reinforce salt intake and fluid intake. I think adding hydralazine would also be reasonab le to his regimen. I think he needs to follow up with primary care and with us on a regular basis, b ut as far as I am concerned, he can go home otherwise whenever it is okay with Dr. Quinn. MISHA/ROLAND Voice ID: [id number] Report ID: [id number]
[2020-07-07 06:45] LABS: Basophils % 1.1 % (0-1.3); Hematocrit 39.5 % (39.6-49.0); Lymphocytes % 16.9 % (15.3-44.8); MPV 8.7 fL (7.6-11.3); RBC Red Blood Cell Count 4.42 M/uL (4.33-5.43)
[2020-07-07 07:12] LABS: Albumin 3.1 g/dL (3.4-5.0); Bilirubin Total 0.5 mg/dL (0.2-1.0); Magnesium 1.8 mg/dL (1.8-2.4); Protein, Total 7.1 g/dL (6.4-8.2); Thyroid Stimulating Hormone 1.4 uIU/mL (0.360-3.740)
--- NOTE | 2020-07-07 07:32 | RAD REPORT ---
EXAM DESCRIPTION: RAD - Chest Pa And Lat (2 Views) - 07/07/2020 5:08 am CLINICAL HISTORY: follow up CHF, CHF, shortness of breath COMPARISON: Portable July 06 TECHNIQUE: Frontal and lateral views of the chest were obtained. FINDINGS: The lungs are clear. Interstitial pattern has decreased in prominence. Heart size and vas culature have diminished back to a normal size. No pleural effusion or pneumothorax seen. No acute b laura finding noted. No aortic abnormality. IMPRESSION: No acute cardiopulmonary process. Resolution of CHF/volume overload findings.
--- NOTE | 2020-07-07 07:36 | P.DS ---
Admission Date: 07/06/20 Discharge Date: 07/07/20 Primary Care Provider: Dr. Palma Disposition: ROUTINE DISCHARGE Discharge Condition: GOOD Reason for Admission: Shortness of breath Consultations: Cardiology-Dr. Quezada Procedures: COVID: Negative ECHO: EF now up to 55% Follow up CXR: FINDINGS: The lungs are clear. Interstitial pattern has decreased in prominence. Heart size and vasculature have diminished back to a normal size. No pleural effusion or pneumothorax seen. No acute bony finding noted. No aortic abnormality. IMPRESSION: No acute cardiopulmonary process. Resolution of CHF/volume overload findings. Medical Problem List: Dyspnea secondary to acute on chronic systolic CHF with prior EF of 35%, now 55% with LVH Elevated troponin secondary to ischemic demand likely related to above Hypertensive urgency Non compliance with medication Brief History of Present Illness: 35-year-old male with history of hypertension, systolic CHF presents with increasing shortness of breath. Patient reports increasing shortness of breath over the past day. He admits not taking his Lasix medication for several months. He also has not been compliant with fluid restriction. Taking Lasix and fluid restriction is a big problem for him at work. 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 Patient denies any chest pain, fever, chills or headaches. Patient reported increasing shortness of breath over the past day. He has difficulty sleeping at night. He came to the ER for further evaluation. In the ER patient was hypertensive. Patient also was short of breath requiring BiPAP. Patient given IV Lasix with improvement. Chest x-ray showed pulmonary edema. White count 13.7, hemoglobin 13.5. Sodium 141, potassium 3.4. Creatinine 1.4 with a GFR 70. Troponin 0.14 with a BNP of 4083. Patient admitted for further evaluation and treatment. When I saw the patient ER, patient appeared much improved after diuresis. Patient to be transition off BiPAP. Last hospitalization 2019 showed EF of 35%. Patient reports taking lisinopril and metoprolol. Non compliant with fluid restriction and Lasix. Hospital Course: Patient presented with Dyspnea secondary to acute on chronic systolic CHF. Prior ejection fraction around 35% noted. Patient received IV Lasix. Patient had poor compliance with medication. Compliance addressed in detail. Patient understands the importance of this. During the hospitalization is condition improved. Slight elevation in troponin noted likely related to CHF exacerbation. Patient seen and evaluated by Cardiology. Echocardiogram shows EF now 55% with left ventricular hypertrophy. No further intervention was required. At discharge patient without significant chest pain, shortness of breath. Condition has significantly improved. At discharge patient will continue with a 1500 cc per day fluid restriction and low-salt diet. Patient is to monitor his weight daily. If his weight increases by more than 5 lb he is to contact his PCP or cardiology for further recommendation. At discharge patient will continue with aspirin 81 mg daily, folic acid 1 mg daily and Lasix 40 mg daily. Patient may continue with nitroglycerin as needed for chest pain. Compliance with medication addressed in detail. Patient will comply. Education on CHF provided. Recommend follow up with cardiology in 1-2 weeks to follow up this hospitalization and continue his care. Recommend follow up with PCP in 1-2 weeks to follow up this hospitalization. Patient had hypertensive urgency. This improved with diuresis and blood pressure medication. Additional medication was required. At discharge patient will continue with metoprolol 100 mg 1 pill twice daily, lisinopril 40 mg daily, and hydralazine 25 mg 1 pill twice daily. Recommend to monitor his blood pressure daily. Recommend to maintain blood pressure less than 130/80. Further adjustment may be required. This can be done with the help of his PCP or cardiology. Patient with hyperlipidemia. LDL elevated at 175. New medication includes Lipitor. At discharge patient will continue with Lipitor 40 mg daily. Recommend to recheck lab-fasting lipid panel in 4-6 weeks to monitors progress. Further adjustment can be done by his PCP or cardiology. Vital Signs/Physical Exam: Temp Pulse Resp BP Pulse Ox 97.0 F 78 19 150/95 H 98 07/07/20 04:00 07/07/20 04:00 07/07/20 04:00 07/07/20 06:00 07/07/20 04:00 General: Alert, In no apparent distress, Oriented x3, Cooperative HEENT: Atraumatic Neck: Supple Respiratory: Clear to auscultation bilaterally, Normal air movement Cardiovascular: Normal pulses, Regular rate/rhythm Gastrointestinal: Normal bowel sounds, No ascites, No tenderness, No masses, No rebound, No guarding Musculoskeletal: No erythema, No tenderness, No warmth Neurological: Normal speech, Normal strength at 5/5 x4 extr, Normal tone, Normal affect Laboratory Data at Discharge: WBC 11.60 K/uL (4.3-10.9) H D 07/07/20 06:20 Hgb 13.2 g/dL (13.6-17.9) L 07/07/20 06:20 Hct 39.5 % (39.6-49.0) L 07/07/20 06:20 Plt Count 424 K/uL (152-406) H 07/07/20 06:20 PT 10.8 SECONDS (9.5-12.5) 07/06/20 05:38 INR 0.94 07/06/20 05:38 Sodium 139 mmol/L (136-145) 07/07/20 06:20 Potassium 3.0 mmol/L (3.5-5.1) L 07/07/20 06:20 BUN 15 mg/dL (7-18) 07/07/20 06:20 Creatinine 1.51 mg/dL (0.55-1.3) H 07/07/20 06:20 Glucose 103 mg/dL (74-106) 07/07/20 06:20 Magnesium 1.8 mg/dL (1.8-2.4) 07/07/20 06:20 Total Bilirubin 0.5 mg/dL (0.2-1.0) 07/07/20 06:20 AST 34 U/L (15-37) 07/07/20 06:20 ALT 65 U/L (12-78) 07/07/20 06:20 Alkaline Phosphatase 68 U/L (45-117) 07/07/20 06:20 Troponin I 0.09 ng/mL (0.0-0.045) H 07/06/20 19:43 Triglycerides 129 mg/dL (<150) 07/07/20 06:20 Cholesterol 240 mg/dL (<200) H 07/07/20 06:20 HDL Cholesterol 39 mg/dL (40-60) L 07/07/20 06:20 Cholesterol/HDL Ratio 6.15 07/07/20 06:20 Home Medications: Nitroglycerin [Nitrostat*] 0.4 mg SL SEECOM PRN 07/06/20 Aspirin [Aspirin EC 81 MG] 81 mg PO DAILY #90 tablet.dr 07/07/20 Atorvastatin Calcium [Lipitor] 40 mg PO BEDTIME #30 tab 07/07/20 Folic Acid 1 mg PO DAILY #90 tablet 07/07/20 Furosemide [Lasix*] 40 mg PO DAILY #30 tab 07/07/20 Hydralazine [Apresoline*] 25 mg PO BID #60 tab 07/07/20 Metoprolol Tartrate 100 mg PO BID #60 tablet 07/07/20 lisinopriL [Lisinopril] 40 mg PO DAILY #30 tablet 07/07/20 New Medications: Hydralazine [Apresoline*] 25 mg PO BID #60 tab Aspirin [Aspirin EC 81 MG] 81 mg PO DAILY #90 tablet. Folic Acid 1 mg PO DAILY #90 tablet Furosemide [Lasix*] 40 mg PO DAILY #30 tab Atorvastatin Calcium [Lipitor] 40 mg PO BEDTIME #30 tab lisinopriL [Lisinopril] 40 mg PO DAILY #30 tablet Metoprolol Tartrate 100 mg PO BID #60 tablet Physician Discharge Instructions: Patient presented with Dyspnea secondary to acute on chronic systolic CHF. Prior ejection fraction around 35% noted. Patient received IV Lasix. Patient had poor compliance with medication. Compliance addressed in detail. Patient understands the importance of this. During the hospitalization is condition improved. Slight elevation in troponin noted likely related to CHF exacerbation. Patient seen and evaluated by Cardiology. Echocardiogram shows EF now 55% with left ventricular hypertrophy. No further intervention was required. At discharge patient without significant chest pain, shortness of breath. Condition has significantly improved. At discharge patient will continue with a 1500 cc per day fluid restriction and low-salt diet. Patient is to monitor his weight daily. If his weight increases by more than 5 lb he is to contact his PCP or cardiology for further recommendation. At discharge patient will continue with aspirin 81 mg daily, folic acid 1 mg daily and Lasix 40 mg daily. Patient may continue with nitroglycerin as needed for chest pain. Compliance with medication addressed in detail. Patient will comply. Education on CHF provided. Recommend follow up with cardiology in 1-2 weeks to follow up this hospitalization and continue his care. Recommend follow up with PCP in 1- 2 weeks to follow up this hospitalization. Patient had hypertensive urgency. This improved with diuresis and blood pressure medication. Additional medication was required. At discharge patient will continue with metoprolol 100 mg 1 pill twice daily, lisinopril 40 mg daily, and hydralazine 25 mg 1 pill twice daily. Recommend to monitor his blood pressure daily. Recommend to maintain blood pressure less than 130/80. Further adjustment may be required. This can be done with the help of his PCP or cardiology. Patient with hyperlipidemia. LDL elevated at 175. New medication includes Lipitor. At discharge patient will continue with Lipitor 40 mg daily. Recommend to recheck lab-fasting lipid panel in 4-6 weeks to monitors progress. Further adjustment can be done by his PCP or cardiology. Diet: AHA Activity: Ad noble Followup: Marshall Palma MD [Primary Care Provider] - Time spent managing pt's care (in minutes): 55
[2020-07-07] MEDS ORDERED: POTASSIUM CL SA 10 MEQ TAB PO ONE (07:44)
[2020-07-07] MEDS ORDERED: MAGNESIUM SULFATE 1 gm IVPB 1 GM/100 ML BAG IV ONE (07:52)
[2020-07-07] MEDS ORDERED: HYDRALAZINE HCL 25 MG TABLET PO SCH (09:00)
--- NOTE | 2020-07-07 09:01 | ECHO ---
HEIGHT: 6 ft 0 in WEIGHT: 230 lb 0 oz DATE OF STUDY: 07/06/[address]: Osbaldo Quinn DO 2-DIMENSIONAL: YES M.MODE: YES DOPPLER: YES COLOR FLOW: YES TDS: NO PORTABLE: NO DEFINITY: NO BUBBLE STUDY: NO DIAGNOSIS: SHORTNESS OF BREATH CARDIAC HISTORY: CATHERIZATION: SURGERY: PROSTHETIC VALVE: PACEMAKER: MEASUREMENTS (cm) DIASTOLIC (NORMALS) SYSTOLIC (NORMALS) IVSd 1.6 (0.6-1.2) LA Diam 4.5 (1.9-4.0) LVEF 55% LVIDd 5.6 (3.5-5.7) LVIDs 4.0 (2.0-3.5) %FS 29% LVPWd 1.5 (0.6-1.2) Ao Diam 3.1 (2.0-3.7) 2 DIMENSIONAL ASSESSMENT: RIGHT ATRIUM: NORMAL LEFT ATRIUM: DILATED RIGHT VENTRICLE: NORMAL LEFT VENTRICLE: LEFT VENTRICULAR HYERTROPHY TRICUSPID VALVE: NORMAL MITRAL VALVE: NORMAL PULMONIC VALVE: NORMAL AORTIC VALVE: NORMAL PERICARDIAL EFFUSION: NONE AORTIC ROOT: NORMAL LEFT VENTRICULAR WALL MOTION: GRADE I DIASTOLIC DYSFUNCTION. DOPPLER/COLOR FLOW: NORMAL COMMENTS: GRADE I DIASTOLIC DYSFUNCTION. LEFT ATRIAL ENLARGEMENT. NORMAL LEFT VENTRICULAR EJECTION FRACTION. CONCENTRIC LEFT VENTRICULAR HYERTROPHY. TECHNOLOGIST: Fercho LUA
[2020-07-07] MEDS: ASPIRIN EC 81 MG TAB PO SCH (09:16)
[2020-07-07] MEDS: lisinopriL 20 MG TAB PO SCH (09:16)
[2020-07-07] MEDS: METOPROLOL TAR 50 MG TAB PO SCH (09:16)
[2020-07-07] MEDS: FUROSEMIDE 40 MG/4 ML VIAL IV SCH (09:16)
[2020-07-07 10:04] VITALS: O2SAT 98
[2020-07-07 10:07] VITALS: BP 160/96; TEMP 97.4
== END 2020-07-07 09:45 | disposition home or self-care (01) | DRG 292 ==
LOC: ER 05:25 → ERHOLD 06:42 → 2ND 08:40 → OBSVTOIN 15:22
PROVIDERS: ADMIT Family Medicine; ATTEND Family Medicine
PROC: 5A09357 Assistance with Respiratory Ventilation, Less than 24 Consecutive Hours, Continuous Positive Airway Pressure (ICD-10-PCS; principal; 2020-07-06)
DX: I11.0 Hypertensive heart disease with heart failure (principal); I24.8 Other forms of acute ischemic heart disease; I50.23 Acute on chronic systolic (congestive) heart failure; I16.0 Hypertensive urgency; E78.5 Hyperlipidemia, unspecified; R77.8 Other specified abnormalities of plasma proteins; Z88.5 Allergy status to narcotic agent; Z88.8 Allergy status to other drugs, medicaments and biological substances; Z79.899 Other long term (current) drug therapy; Z79.82 Long term (current) use of aspirin; Z91.14 Patient's other noncompliance with medication regimen; Z20.822 Contact with and (suspected) exposure to COVID-19
CPT/HCPCS: 36415; 71045; 71046; 80048; 80053; 80061; 80076; 81003; 82550; 82553; 83735; 83880; 84132; 84439; 84443; 84484; 85025; 85610; 93005; 93306; 94660; 96372; 96374; 96375; 99285; J0360; J1650; J1940; J2405; J3010; U0003

== ENCOUNTER 2020-07-18 07:44 | Emergency (ER) | payer SELFPAY ==
[2020-07-18] MEDS ORDERED: HYDRALAZINE HCL 20 MG/ML VIAL ONE ×2 (08:28→10:08)
[2020-07-18] MEDS ORDERED: PHENYLEPHRINE 0.5% NOSE 15ML NAS ONE (08:29)
[2020-07-18] MEDS ORDERED: AMLODIPINE 10 MG TAB ONE (08:29)
[2020-07-18 08:48] LABS: Protime INR 0.87
[2020-07-18 08:58] LABS: Absolute Lymphocytes (CBC) 2.1 K/uL (0.7-4.9); Basophils % 0.9 % (0-1.3); Hematocrit 39.2 % (39.6-49.0); Lymphocytes % 19.8 % (15.3-44.8); MPV 8.6 fL (7.6-11.3); RBC Red Blood Cell Count 4.41 M/uL (4.33-5.43)
[2020-07-18 09:26] LABS: Albumin 3.6 g/dL (3.4-5.0); Bilirubin Total 0.2 mg/dL (0.2-1.0); Protein, Total 7.7 g/dL (6.4-8.2)
--- NOTE | 2020-07-18 09:30 | RAD REPORT ---
EXAM DESCRIPTION: RAD - Chest Single View - 07/18/2020 8:53 am CLINICAL HISTORY: COUGH, hypertension COMPARISON: July 07 TECHNIQUE: AP portable chest image was obtained 07/18/2020 8:53 am . FINDINGS: Lungs are clear. Heart and vasculature are normal. No measurable pleural effusion and no p neumothorax. No acute bony abnormality seen. No acute aortic findings suspected. IMPRESSION: No acute cardiopulmonary process. No significant change from comparison study.
[2020-07-18] MEDS ORDERED: HYDRALAZINE HCL 10 MG TABLET ONE (10:08)
--- NOTE | 2020-07-18 10:48 | EDPHYS ---
Physician Documentation [facility] Name: Ezequiel Padron Age: 35 yrs Sex: Male : 1985 Arrival Date: 07/18/2020 Time: 07:46 Bed 14 Private MD: Marshall Palma R ED Physician Baldemar Harden HPI: 07/18 08:08 This 35 yrs old Black Male presents to ER via Ambulatory with complaints of Nose Bleed. bernabe 08:08 The patient presents with a nose bleed, that is apparently anterior, from the left bernabe nare. Onset: The symptoms/episode began/occurred 2 day(s) ago. Modifying factors: The symptoms are alleviated by nothing. the symptoms are aggravated by nothing. Associated signs and symptoms: The patient has no apparent associated signs or symptoms. Severity of symptoms: At their worst the symptoms were mild in the emergency department the symptoms are unchanged. The patient has not experienced similar symptoms in the past. Historical: - Allergies: 07:59 Morphine; bp 07:59 HTN medication; bp - Home Meds: 07:59 lisinopril 10 mg Oral tab 1 tab twice a day [Active]; metoprolol tartrate 100 mg Oral bp tab 1 tab once daily [Active]; Lasix 40 mg Oral tab 1 tab once daily [Active]; - PMHx: 07:59 CHF; Hypertension; bp - Immunization history:: Adult Immunizations up to date. - Social history:: Smoking status: Patient denies any tobacco usage or history of. - Family history:: not pertinent. ROS: 08:08 Constitutional: Negative for fever, chills, and weight loss, Eyes: Negative for injury, bernabe pain, redness, and discharge, Neck: Negative for injury, pain, and swelling, Cardiovascular: Negative for chest pain, palpitations, and edema, Respiratory: Negative for shortness of breath, cough, wheezing, and pleuritic chest pain, Abdomen/GI: Negative for abdominal pain, nausea, vomiting, diarrhea, and constipation, Back: Negative for injury and pain, : Negative for injury, bleeding, discharge, and swelling, MS/Extremity: Negative for injury and deformity, Skin: Negative for injury, rash, and discoloration, Neuro: Negative for headache, weakness, numbness, tingling, and seizure, Psych: Negative for depression, anxiety, suicide ideation, homicidal ideation, and hallucinations, Allergy/Immunology: Negative for hives, rash, and allergies, Endocrine: Negative for neck swelling, polydipsia, polyuria, polyphagia, and marked weight changes, Hematologic/Lymphatic: Negative for swollen nodes, abnormal bleeding, and unusual bruising. 08:08 ENT: Positive for nose bleed. Exam: 08:08 Constitutional: This is a well developed, well nourished patient who is awake, alert, bernabe and in no acute distress. Head/Face: Normocephalic, atraumatic. Eyes: Pupils equal round and reactive to light, extra-ocular motions intact. Lids and lashes normal. Conjunctiva and sclera are non-icteric and not injected. Cornea within normal limits. Periorbital areas with no swelling, redness, or edema. Neck: Trachea midline, no thyromegaly or masses palpated, and no cervical lymphadenopathy. Supple, full range of motion without nuchal rigidity, or vertebral point tenderness. No Meningismus. Chest/axilla: Normal chest wall appearance and motion. Nontender with no deformity. No lesions are appreciated. Cardiovascular: Regular rate and rhythm with a normal S1 and S2. No gallops, murmurs, or rubs. Normal PMI, no JVD. No pulse deficits. Respiratory: Lungs have equal breath sounds bilaterally, clear to auscultation and percussion. No rales, rhonchi or wheezes noted. No increased work of breathing, no retractions or nasal flaring. Abdomen/GI: Soft, non-tender, with normal bowel sounds. No distension or tympany. No guarding or rebound. No evidence of tenderness throughout. Back: No spinal tenderness. No costovertebral tenderness. Full range of motion. Male : Normal genitalia with no discharge or lesions. Skin: Warm, dry with normal turgor. Normal color with no rashes, no lesions, and no evidence of cellulitis. MS/ Extremity: Pulses equal, no cyanosis. Neurovascular intact. Full, normal range of motion. Neuro: Awake and alert, GCS 15, oriented to person, place, time, and situation. Cranial nerves II-XII grossly intact. Motor strength 5/5 in all extremities. Sensory grossly intact. Cerebellar exam normal. Normal gait. Psych: Awake, alert, with orientation to person, place and time. Behavior, mood, and affect are within normal limits. 08:08 ENT: Nose: Nasal mucosa: cracked, edematous, erythematous. Vital Signs: 07:57 BP 184 / 118; Pulse 65; Resp 16; Temp 98; Pulse Ox 99% ; bp 09:19 BP 172 / 113; Pulse 75; Resp 17; Pulse Ox 98% ; jd3 10:05 BP 172 / 109; Pulse 77; Resp 16; Pulse Ox 99% ; bp 11:08 BP 169 / 98; Pulse 72; Resp 17; Temp 98; Pulse Ox 99% ; bp Procedures: 10:43 Epistaxis treatment: A moderate amount of bleeding noted from left nare. Treated using [facility] Oxymetazoline sprays, anterior packing, Vaseline gauze, Bleeding stopped. MDM: 07:51 Patient medically screened. [facility] 08:10 Differential diagnosis: trauma, sinusitis, spontaneous epistaxis. Data reviewed: vital bernabe signs, nurses notes, lab test result(s), radiologic studies, plain films. Data interpreted: command and control: rate is 65 beats/min, rhythm is regular. Test interpretation: by ED physician or midlevel provider: plain radiologic studies. 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 07/18 08:08 Order name: CBC with Diff; Complete Time: 09:44 [facility] 07/18 08:08 Order name: Comprehensive Metabolic Panel; Complete Time: 09:44 bernabe 07/18 08:08 Order name: PT-INR; Complete Time: 09:44 [facility] 07/18 08:12 Order name: Chest Single View XRAY; Complete Time: 09:44 [facility] 07/18 08:08 Order name: Dressing - Wound; Complete Time: 08:09 bernabe 07/18 08:08 Order name: Gloves, Sterile; Complete Time: 08:09 bernabe 07/18 08:08 Order name: Setup Suture Tray; Complete Time: 08:09 [facility] Administered Medications: 08:15 Drug: Kranthi-Synephrine Farner 0.5 % 2 sprays Route: Intranasal; Site: both nares; bp 08:15 Drug: Norvasc (amlodipine) 10 mg Route: PO; bp 11:11 Follow up: Response: No adverse reaction bp 08:20 Drug: hydrALAZINE 10 mg Route: IV; Rate: per protocol; Site: right antecubital; bp 11:11 Follow up: IV Status: Completed infusion bp 10:00 Drug: hydrALAZINE 10 mg Route: IV; Rate: per protocol; Site: right antecubital; bp 11:11 Follow up: IV Status: Completed infusion bp 10:00 Drug: hydrALAZINE 10 mg Route: PO; bp 11:11 Follow up: Response: No adverse reaction bp Disposition: 07/18/20 10:47 Discharged to Home. Impression: Epistaxis, Essential (primary) hypertension. - Condition is Stable. - Discharge Instructions: Hypertension, Hypertension, [id number], How to Take Your Blood Pressure, [id number], Managing Your Hypertension. - Prescriptions for Keflex 500 mg Oral Capsule - take 1 capsule by ORAL route every 6 hours for 10 days; 40 capsule. Norvasc 10 mg Oral Tablet - take 1 tablet by ORAL route once daily; 30 tablet. Hydrochlorothiazide 12.5 mg Oral Tablet - take 1 tablet by ORAL route once daily; 30 tablet. Hydralazine 10 mg Oral Tablet - take 1 tablet by ORAL route 3 times per day with food; 60 tablet. - Medication Reconciliation Form, Thank You Letter, Antibiotic Education, Prescription Opioid Use form. - Follow up: Marshall Palma; When: 2 - 3 days; Reason: Recheck today's complaints, Continuance of care, Re-evaluation by your physician. Follow up: Haily Bernal; When: 2 - 3 days; Reason: Recheck today's complaints, Re-evaluation by your physician. Follow up: Agapito Quezada; When: 2 - 3 days; Reason: Recheck today's complaints, Re-evaluation by your physician. - Problem is new. - Symptoms have improved. Signatures: Dispatcher [employer] EDBaldemar Stephens MD MD cha Peltier, Brian, RN RN bp Corrections: (The following items were deleted from the chart) 11:11 10:47 07/18/2020 10:47 Discharged to Home. Impression: Epistaxis; Essential (primary) bp hypertension. Condition is Stable. Discharge Instructions: Hypertension, Hypertension, [id number], How to Take Your Blood Pressure, [id number], Managing Your Hypertension. Prescriptions for Keflex 500 mg Oral Capsule - take 1 capsule by ORAL route every 6 hours for 10 days; 40 capsule, Norvasc 10 mg Oral Tablet - take 1 tablet by ORAL route once daily; 30 tablet, Hydrochlorothiazide 12.5 mg Oral Tablet - take 1 tablet by ORAL route once daily; 30 tablet, Hydralazine 10 mg Oral Tablet - take 1 tablet by ORAL route 3 times per day with food; 60 tablet. and Forms are Medication Reconciliation Form, Thank You Letter, Antibiotic Education, Prescription Opioid Use. Follow up: Marshall Palma; When: 2 - 3 days; Reason: Recheck today's complaints, Continuance of care, Re-evaluation by your physician. Follow up: Haily Bernal; When: 2 - 3 days; Reason: Recheck today's complaints, Re-evaluation by your physician. Follow up: Agapito Quezada; When: 2 - 3 days; Reason: Recheck today's complaints, Re-evaluation by your physician. Problem is new. Symptoms have improved. bernabe
--- NOTE | 2020-07-18 10:48 | ER ---
Nurse's Notes [facility] Name: Ezequiel Padron Age: 35 yrs Sex: Male : 1985 Arrival Date: 07/18/2020 Time: 07:46 Bed 14 Private MD: Marshall Palma R Diagnosis: Epistaxis;Essential (primary) hypertension Presentation: 07/18 07:57 Chief complaint: Patient states: NOSE BLEED. Coronavirus screen: At this time, the bp client does not indicate any symptoms associated with coronavirus-19. Ebola Screen: No symptoms or risks identified at this time. Initial Sepsis Screen: Does the patient meet any 2 criteria? No. Patient's initial sepsis screen is negative. Does the patient have a suspected source of infection? No. Patient's initial sepsis screen is negative. Risk Assessment: Do you want to hurt yourself or someone else? Patient reports no desire to harm self or others. Onset of symptoms was July 18, 2020. 07:57 Method Of Arrival: Ambulatory bp 07:57 Acuity: HERMELINDA 4 bp Triage Assessment: 07:59 General: Appears in no apparent distress. uncomfortable, Behavior is cooperative, bp appropriate for age, anxious. Pain: Denies pain. EENT: Nares with bleeding noted. Neuro: No deficits noted. Cardiovascular: No deficits noted. Respiratory: No deficits noted. GI: No signs and/or symptoms were reported involving the gastrointestinal system. : No signs and/or symptoms were reported regarding the genitourinary system. Derm: No deficits noted. Musculoskeletal: No deficits noted. Historical: - Allergies: 07:59 Morphine; bp 07:59 HTN medication; bp - Home Meds: 07:59 lisinopril 10 mg Oral tab 1 tab twice a day [Active]; metoprolol tartrate 100 mg Oral bp tab 1 tab once daily [Active]; Lasix 40 mg Oral tab 1 tab once daily [Active]; - PMHx: 07:59 CHF; Hypertension; bp - Immunization history:: Adult Immunizations up to date. - Social history:: Smoking status: Patient denies any tobacco usage or history of. - Family history:: not pertinent. Screenin:01 Abuse screen: Denies threats or abuse. Denies injuries from another. Nutritional bp screening: No deficits noted. Tuberculosis screening: No symptoms or risk factors identified. Fall Risk None identified. Assessment: 08:01 General: SEE TRIAGE NOTE. bp 10:05 Reassessment: No changes from previously documented assessment. Patient and/or family bp updated on plan of care and expected duration. Pain level reassessed. Patient is alert, oriented x 3, equal unlabored respirations, skin warm/dry/pink. MD AT B/S FOR NASAL PACKING. 11:08 Reassessment: PT D/C HOME AMBULATORY, DX WITH EPISTAXIS AND HTN. bp Vital Signs: 07:57 BP 184 / 118; Pulse 65; Resp 16; Temp 98; Pulse Ox 99% ; bp 09:19 BP 172 / 113; Pulse 75; Resp 17; Pulse Ox 98% ; jd3 10:05 BP 172 / 109; Pulse 77; Resp 16; Pulse Ox 99% ; bp 11:08 BP 169 / 98; Pulse 72; Resp 17; Temp 98; Pulse Ox 99% ; bp ED Course: 07:46 Patient arrived in ED. am2 07:47 Marshall Palma MD is Private Physician. am2 07:51 Baldemar Harden MD is Attending Physician. bernabe 07:53 Hesham Beavers, SAMANTHA is Primary Nurse. bp 07:58 Triage completed. bp 07:59 Arm band placed on. bp 08:01 Patient has correct armband on for positive identification. Bed in low position. Call bp light in reach. Side rails up X2. 08:20 Inserted saline lock: 20 gauge in right antecubital area, using aseptic technique. bp Blood collected. 08:53 Chest Single View XRAY In Process Unspecified. EDMS 10:47 Marshall Palma MD is Referral Physician. bernabe 10:47 Haily Bernal MD is Referral Physician. bernabe 10:47 Agapito Quezada MD is Referral Physician. bernabe 11:08 No provider procedures requiring assistance completed. IV discontinued, intact, bp bleeding controlled, No redness/swelling at site. Pressure dressing applied. Administered Medications: 08:15 Drug: Kranthi-Synephrine [place] 0.5 % 2 sprays Route: Intranasal; Site: both nares; bp 08:15 Drug: Norvasc (amlodipine) 10 mg Route: PO; bp 11:11 Follow up: Response: No adverse reaction bp 08:20 Drug: hydrALAZINE 10 mg Route: IV; Rate: per protocol; Site: right antecubital; bp 11:11 Follow up: IV Status: Completed infusion bp 10:00 Drug: hydrALAZINE 10 mg Route: IV; Rate: per protocol; Site: right antecubital; bp 11:11 Follow up: IV Status: Completed infusion bp 10:00 Drug: hydrALAZINE 10 mg Route: PO; bp 11:11 Follow up: Response: No adverse reaction bp Outcome: 10:47 Discharge ordered by MD. kidd 11:08 Discharged to home ambulatory. bp 11:08 Condition: stable 11:08 Discharge instructions given to patient, Instructed on discharge instructions, follow up and referral plans. medication usage, Demonstrated understanding of instructions, follow-up care, medications, Prescriptions given X 4. 11:11 Patient left the ED. bp Signatures: Dispatcher [employer] EDBaldemar Stephens MD MD cha Moreno, Amanda am2 Davies, Jonathon, RN RN jd3 Hesham Beavers RN RN bp
[2020-07-18 21:07] VITALS: TEMP 98
[2020-07-18 21:10] VITALS: O2SAT 99
[2020-07-18 21:11] VITALS: BP 169/98
== END 2020-07-18 11:11 | disposition home or self-care (01) ==
LOC: ER 07:44
PROC: 2Y41X5Z Packing of Nasal Region using Packing Material (ICD-10-PCS; principal; 2020-07-18)
DX: R04.0 Epistaxis (principal); I11.0 Hypertensive heart disease with heart failure; I50.9 Heart failure, unspecified
CPT/HCPCS: 30901; 36415; 71045; 80053; 85025; 85610; 96365; 96366; 99284; J0360

== ENCOUNTER 2020-07-18 17:52 | Emergency (ER) | payer SELFPAY ==
[2020-07-18] MEDS ORDERED: PHENYLEPHRINE 0.5% NOSE 15ML NAS ONE (18:47)
--- NOTE | 2020-07-18 19:36 | ER ---
Nurse's Notes [facility] Name: Ezequiel Padron Age: 35 yrs Sex: Male : 1985 Arrival Date: 07/18/2020 Time: 17:54 Bed 16 Private MD: Marshall Palma R Diagnosis: Epistaxis;Essential (primary) hypertension Presentation: 07/18 18:13 Chief complaint: Patient states: Nosebleed started this morning, sent home with packing ca1 in the nose. Started coughing 30 mins ago, nose bleed has been worse and I feel like I am going to pass out. Coronavirus screen: Client denies travel out of the [place] in the last 14 days. At this time, the client does not indicate any symptoms associated with coronavirus-19. Ebola Screen: Patient negative for fever greater than or equal to 101.5 degrees Fahrenheit, and additional compatible Ebola Virus Disease symptoms Patient denies exposure to infectious person. Patient denies travel to an Ebola-affected area in the 21 days before illness onset. No symptoms or risks identified at this time. Initial Sepsis Screen: Does the patient meet any 2 criteria? No. Patient's initial sepsis screen is negative. Does the patient have a suspected source of infection? No. Patient's initial sepsis screen is negative. Risk Assessment: Do you want to hurt yourself or someone else? Patient reports no desire to harm self or others. Onset of symptoms was July 18, 2020. 18:13 Method Of Arrival: Wheelchair ca1 18:13 Acuity: HERMELINDA 3 ca1 Triage Assessment: 18:20 General: Appears in no apparent distress. comfortable, Behavior is calm, cooperative, bp appropriate for age. Pain: Denies pain. EENT: Nares with bleeding noted. Neuro: No deficits noted. Cardiovascular: No deficits noted. Respiratory: No deficits noted. GI: No signs and/or symptoms were reported involving the gastrointestinal system. : No signs and/or symptoms were reported regarding the genitourinary system. Derm: No deficits noted. Musculoskeletal: No deficits noted. Historical: - Allergies: 18:16 HTN medication; ca1 18:16 Morphine; ca1 - Home Meds: 18:16 Lasix 40 mg Oral tab 1 tab once daily [Active]; lisinopril 10 mg Oral tab 1 tab twice a ca1 day [Active]; metoprolol tartrate 100 mg Oral tab 1 tab once daily [Active]; - PMHx: 18:16 CHF; Hypertension; ca1 - PSHx: 18:16 None; Femur R Surgery; ca1 - Immunization history:: Flu vaccine is not up to date. - Social history:: Smoking status: Patient denies any tobacco usage or history of. Screenin:23 Abuse screen: Denies threats or abuse. Denies injuries from another. Nutritional bp screening: No deficits noted. Tuberculosis screening: No symptoms or risk factors identified. Fall Risk None identified. Assessment: 18:22 General: PT SEEN AND D/C FOR SAME EARLIER TODAY. RETURNED WITH RENEWED EPISTAXIS AFTER bp COUGHING. Vital Signs: 18:13 BP 159 / 111; Pulse 84; Resp 16 S; Temp 99.1(TE); Pulse Ox 99% on R/A; Weight 99.79 kg ca1 (R); Height 6 ft. 0 in. (182.88 cm) (R); Pain 0/10; 18:13 Body Mass Index 29.84 (99.79 kg, 182.88 cm) ca1 ED Course: 17:54 Patient arrived in ED. am2 17:54 Marshall Palma MD is Private Physician. am2 18:15 Triage completed. ca1 18:16 Arm band placed on right wrist. ca1 18:20 Baldemar Harden MD is Attending Physician. bernabe 18:22 Hesham Beavers, SAMANTHA is Primary Nurse. bp 18:23 Patient has correct armband on for positive identification. Bed in low position. Call bp light in reach. Side rails up X2. 19:34 Marshall Palma MD is Referral Physician. bernabe 19:35 Agapito Quezada MD is Referral Physician. bernabe 19:35 Haily Bernal MD is Referral Physician. bernabe 19:44 No provider procedures requiring assistance completed. Patient did not have IV access ss during this emergency room visit. Administered Medications: 19:09 Not Given (Patient Refused): NS 0.9% 1000 ml IV at 75 ml/hr continuous bp 19:43 Not Given (Physician Discretion): Kranthi-Synephrine [place] 0.5 % 2 sprays Intranasal once ss Outcome: 19:35 Discharge ordered by . bernabe 19:44 Discharged to home ambulatory. ss 19:44 Condition: good 19:44 Discharge instructions given to patient, Instructed on discharge instructions, follow up and referral plans. Demonstrated understanding of instructions, follow-up care, medications. 19:44 Patient left the ED. ss Signatures: Baldemar Harden MD MD cha Smirch, Shelby RN RN Abi Diop am2 Hesham Beavers RN RN bp Gladys Beltrán RN RN ca1 Corrections: (The following items were deleted from the chart) 19:43 18:30 Kranthi-Synephrine [place] 0.5 % 2 sprays Intranasal in both nares bp ss
--- NOTE | 2020-07-18 19:36 | EDPHYS ---
Physician Documentation [facility] Name: Ezequiel Padron Age: 35 yrs Sex: Male : 1985 Arrival Date: 07/18/2020 Time: 17:54 Bed 16 Private MD: Marshall Palma R ED Physician Baldemar Harden HPI: 07/18 18:21 This 35 yrs old Black Male presents to ER via Wheelchair with complaints of Nose Bleed bernabe - worse. 18:21 The patient presents with a nose bleed. bernabe Historical: - Allergies: 18:16 HTN medication; ca1 18:16 Morphine; ca1 - Home Meds: 18:16 Lasix 40 mg Oral tab 1 tab once daily [Active]; lisinopril 10 mg Oral tab 1 tab twice a ca1 day [Active]; metoprolol tartrate 100 mg Oral tab 1 tab once daily [Active]; - PMHx: 18:16 CHF; Hypertension; ca1 - PSHx: 18:16 None; Femur R Surgery; ca1 - Immunization history:: Flu vaccine is not up to date. - Social history:: Smoking status: Patient denies any tobacco usage or history of. ROS: 19:30 Constitutional: Negative for fever, chills, and weight loss, Eyes: Negative for injury, bernabe pain, redness, and discharge, Neck: Negative for injury, pain, and swelling, Cardiovascular: Negative for chest pain, palpitations, and edema, Respiratory: Negative for shortness of breath, cough, wheezing, and pleuritic chest pain, Abdomen/GI: Negative for abdominal pain, nausea, vomiting, diarrhea, and constipation, Back: Negative for injury and pain, : Negative for injury, bleeding, discharge, and swelling, MS/Extremity: Negative for injury and deformity, Skin: Negative for injury, rash, and discoloration, Neuro: Negative for headache, weakness, numbness, tingling, and seizure, Psych: Negative for depression, anxiety, suicide ideation, homicidal ideation, and hallucinations, Allergy/Immunology: Negative for hives, rash, and allergies, Endocrine: Negative for neck swelling, polydipsia, polyuria, polyphagia, and marked weight changes. 19:30 ENT: Positive for nose bleed. Exam: 19:30 Constitutional: This is a well developed, well nourished patient who is awake, alert, bernabe and in no acute distress. Head/Face: Normocephalic, atraumatic. Eyes: Pupils equal round and reactive to light, extra-ocular motions intact. Lids and lashes normal. Conjunctiva and sclera are non-icteric and not injected. Cornea within normal limits. Periorbital areas with no swelling, redness, or edema. Neck: Trachea midline, no thyromegaly or masses palpated, and no cervical lymphadenopathy. Supple, full range of motion without nuchal rigidity, or vertebral point tenderness. No Meningismus. Chest/axilla: Normal chest wall appearance and motion. Nontender with no deformity. No lesions are appreciated. Cardiovascular: Regular rate and rhythm with a normal S1 and S2. No gallops, murmurs, or rubs. Normal PMI, no JVD. No pulse deficits. Respiratory: Lungs have equal breath sounds bilaterally, clear to auscultation and percussion. No rales, rhonchi or wheezes noted. No increased work of breathing, no retractions or nasal flaring. Abdomen/GI: Soft, non-tender, with normal bowel sounds. No distension or tympany. No guarding or rebound. No evidence of tenderness throughout. Back: No spinal tenderness. No costovertebral tenderness. Full range of motion. Male : Normal genitalia with no discharge or lesions. Skin: Warm, dry with normal turgor. Normal color with no rashes, no lesions, and no evidence of cellulitis. MS/ Extremity: Pulses equal, no cyanosis. Neurovascular intact. Full, normal range of motion. Neuro: Awake and alert, GCS 15, oriented to person, place, time, and situation. Cranial nerves II-XII grossly intact. Motor strength 5/5 in all extremities. Sensory grossly intact. Cerebellar exam normal. Normal gait. Psych: Awake, alert, with orientation to person, place and time. Behavior, mood, and affect are within normal limits. 19:30 ENT: Nose: bleeding, is not appreciated, nasal drainage, is not appreciated, a foreign body, left nare still packed with vaseline gauze, no anterior or posterior bleeding. Vital Signs: 18:13 BP 159 / 111; Pulse 84; Resp 16 S; Temp 99.1(TE); Pulse Ox 99% on R/A; Weight 99.79 kg ca1 (R); Height 6 ft. 0 in. (182.88 cm) (R); Pain 0/10; 18:13 Body Mass Index 29.84 (99.79 kg, 182.88 cm) ca1 Procedures: 19:[address] from this morning. [facility] MDM: 18:20 Patient medically screened. [facility] 19:32 Differential diagnosis: spontaneous epistaxis. Data reviewed: vital signs, nurses [facility] notes. Data interpreted: secured entrance monitor: rate is 84 beats/min, rhythm is regular, Pulse oximetry: on room air is 99 %. Counseling: I had a detailed discussion with the patient and/or guardian regarding: the historical points, exam findings, and any diagnostic results supporting the discharge/admit diagnosis, lab results, the need for outpatient follow up, for definitive care, a pin inserter regulator, an ENT specialist. 07/18 18:21 Order name: CBC with Diff [facility] 07/18 18:21 Order name: Comprehensive Metabolic Panel [facility] 07/18 18:24 Order name: Misc. Order: 7.5 cm rhino rocket to bedside; Complete Time: 18:46 [facility] 07/18 19:36 Order name: Ice pack; Complete Time: 19:43 [facility] Administered Medications: 19:09 Not Given (Patient Refused): NS 0.9% 1000 ml IV at 75 ml/hr continuous bp 19:43 Not Given (Physician Discretion): Kranthi-Synephrine [place] 0.5 % 2 sprays Intranasal once ss Disposition: 07/18/20 19:35 Discharged to Home. Impression: Epistaxis, Essential (primary) hypertension. - Condition is Stable. - Discharge Instructions: Nosebleed, Adult, Hypertension, Hypertension, [id number], How to Take Your Blood Pressure, Mght-ab-Itst, Nosebleed, [id number], Managing Your Hypertension. - Medication Reconciliation Form, Thank You Letter, Antibiotic Education, Prescription Opioid Use form. - Follow up: Marshall Palma MD; When: 2 - 3 days; Reason: Recheck today's complaints, Continuance of care, Re-evaluation by your physician. Follow up: Agapito Quezada MD; When: 2 - 3 days; Reason: Recheck today's complaints, Re-evaluation by your physician. Follow up: Haily Bernal MD; When: 1 - 2 days; Reason: Recheck today's complaints, Re-evaluation by your physician. - Problem is new. - Symptoms have improved. Signatures: Dispatcher [employer] EDMS Baldemar Harden MD MD cha Smirch, Shelby, RN RN ss Hesham Beavers, RN RN bp Acob, Gladys RN RN ca1 Corrections: (The following items were deleted from the chart) 19:44 19:35 07/18/2020 19:35 Discharged to Home. Impression: Epistaxis; Essential (primary) ss hypertension. Condition is Stable. Forms are Medication Reconciliation Form, Thank You Letter, Antibiotic Education, Prescription Opioid Use. Follow up: Marshall Palma; When: 2 - 3 days; Reason: Recheck today's complaints, Continuance of care, Re-evaluation by your physician. Follow up: Agapito Quezada; When: 2 - 3 days; Reason: Recheck today's complaints, Re-evaluation by your physician. Follow up: Haily Bernal; When: 1 - 2 days; Reason: Recheck today's complaints, Re-evaluation by your physician. Problem is new. Symptoms have improved. bernabe
[2020-07-19 01:27] VITALS: BP 159/111; TEMP 99.1; O2SAT 99
== END 2020-07-18 19:44 | disposition home or self-care (01) ==
LOC: ER 17:52
DX: R04.0 Epistaxis (principal); I10 Essential (primary) hypertension; I50.9 Heart failure, unspecified; Z88.5 Allergy status to narcotic agent; Z88.8 Allergy status to other drugs, medicaments and biological substances
CPT/HCPCS: 99281

== ENCOUNTER 2020-07-19 19:49 | Emergency (ER) | payer SELFPAY ==
--- NOTE | 2020-07-19 21:26 | ER ---
Nurse's Notes [facility] Name: Ezequiel Padron Age: 35 yrs Sex: Male : 1985 Arrival Date: 07/19/2020 Time: 19:49 Bed 28 Private MD: Diagnosis: Epistaxis Presentation: 07/19 20:30 Chief complaint: Patient states: took out his rhino rocket this morning and missed his iw ENT appt this morning, left nostril has minimal bleeding now, ENT appt rescheduled for tomorrow. Coronavirus screen: At this time, the client does not indicate any symptoms associated with coronavirus-19. Ebola Screen: Patient negative for fever greater than or equal to 101.5 degrees Fahrenheit, and additional compatible Ebola Virus Disease symptoms Patient denies exposure to infectious person. Patient denies travel to an Ebola-affected area in the 21 days before illness onset. No symptoms or risks identified at this time. Initial Sepsis Screen: Does the patient meet any 2 criteria? No. Patient's initial sepsis screen is negative. Does the patient have a suspected source of infection? No. Patient's initial sepsis screen is negative. Risk Assessment: Do you want to hurt yourself or someone else? Patient reports no desire to harm self or others. Onset of symptoms was July 19, 2020. 20:30 Method Of Arrival: EMS: [facility] iw 20:30 Acuity: HERMELINDA 4 iw Triage Assessment: 20:30 General: Appears in no apparent distress. Behavior is calm, cooperative. iw Historical: - Allergies: 20:54 HTN medication; iw 20:54 Morphine; iw - Home Meds: 20:54 Lasix 40 mg Oral tab 1 tab once daily [Active]; lisinopril 10 mg Oral tab 1 tab twice a iw day [Active]; metoprolol tartrate 100 mg Oral tab 1 tab once daily [Active]; - PMHx: 20:54 CHF; Hypertension; iw - PSHx: 20:54 Femur R Surgery; iw - Immunization history:: Adult Immunizations unknown. - Family history:: not pertinent. - Social history:: Smoking status: Patient denies any tobacco usage or history of. Screenin:40 Abuse screen: Denies threats or abuse. Denies injuries from another. Nutritional iw screening: No deficits noted. Tuberculosis screening: No symptoms or risk factors identified. Fall Risk None identified. Assessment: 20:30 General: Appears in no apparent distress. comfortable, Behavior is calm, cooperative. iw Pain: Denies pain. Neuro: Level of Consciousness is awake, alert, obeys commands, Oriented to person, place, time, situation, Moves all extremities. Full function. Cardiovascular: Patient's skin is warm and dry. Respiratory: Respiratory effort is even, unlabored, Respiratory pattern is regular, symmetrical. EENT: Nares with bleeding noted on left. Derm: Skin is intact, is healthy with good turgor. Vital Signs: 20:30 BP 167 / 110; Pulse 89; Resp 16; Pulse Ox 98% on R/A; iw 20:54 BP 155 / 90; iw ED Course: 19:49 Patient arrived in ED. iw 20:23 Baldemar Harden MD is Attending Physician. bernabe 20:30 Maxine Cooper, RN is Primary Nurse. iw 20:30 Arm band placed on. iw 20:30 Patient has correct armband on for positive identification. iw 20:32 Triage completed. iw 21:25 Haily Bernal MD is Referral Physician. [facility] 21:43 No provider procedures requiring assistance completed. iw 21:43 Patient did not have IV access during this emergency room visit. iw Administered Medications: No medications were administered Outcome: 21:26 Discharge ordered by . bernabe 21:43 Discharged to home ambulatory. iw 21:43 Condition: good 21:43 Discharge instructions given to patient, Instructed on discharge instructions, follow up and referral plans. Demonstrated understanding of instructions, follow-up care. 21:44 Patient left the ED. iw Signatures: Baldemar Harden MD MD cha Williams, Irene, RN RN
--- NOTE | 2020-07-19 21:26 | EDPHYS ---
Physician Documentation [facility] Name: Ezequiel Padron Age: 35 yrs Sex: Male : 1985 Arrival Date: 07/19/2020 Time: 19:49 Bed 28 Private MD: ED Physician Baldemar Harden HPI: 07/19 21:21 This 35 yrs old Black Male presents to ER via EMS with complaints of Nose Bleed. bernabe 21:21 The patient presents with a nose bleed, that is apparently anterior, from the left bernabe nare. Onset: The symptoms/episode began/occurred just prior to arrival, today. Modifying factors: The symptoms are alleviated by anti-hypertensive medication(s), the symptoms are aggravated by blowing nose, laying down. Associated signs and symptoms: The patient has no apparent associated signs or symptoms. Severity of symptoms: At their worst the symptoms were mild in the emergency department the symptoms have improved. The patient has not experienced similar symptoms in the past. Historical: - Allergies: 20:54 HTN medication; iw 20:54 Morphine; iw - Home Meds: 20:54 Lasix 40 mg Oral tab 1 tab once daily [Active]; lisinopril 10 mg Oral tab 1 tab twice a iw day [Active]; metoprolol tartrate 100 mg Oral tab 1 tab once daily [Active]; - PMHx: 20:54 CHF; Hypertension; iw - PSHx: 20:54 Femur R Surgery; iw - Immunization history:: Adult Immunizations unknown. - Family history:: not pertinent. - Social history:: Smoking status: Patient denies any tobacco usage or history of. ROS: 21:21 Constitutional: Negative for fever, chills, and weight loss, Eyes: Negative for injury, bernabe pain, redness, and discharge, Neck: Negative for injury, pain, and swelling, Cardiovascular: Negative for chest pain, palpitations, and edema, Respiratory: Negative for shortness of breath, cough, wheezing, and pleuritic chest pain, Abdomen/GI: Negative for abdominal pain, nausea, vomiting, diarrhea, and constipation, Back: Negative for injury and pain, : Negative for injury, bleeding, discharge, and swelling, MS/Extremity: Negative for injury and deformity, Skin: Negative for injury, rash, and discoloration, Neuro: Negative for headache, weakness, numbness, tingling, and seizure, Psych: Negative for depression, anxiety, suicide ideation, homicidal ideation, and hallucinations, Allergy/Immunology: Negative for hives, rash, and allergies, Endocrine: Negative for neck swelling, polydipsia, polyuria, polyphagia, and marked weight changes, Hematologic/Lymphatic: Negative for swollen nodes, abnormal bleeding, and unusual bruising. 21:21 ENT: Positive for nose bleed. Exam: 21:21 Constitutional: This is a well developed, well nourished patient who is awake, alert, bernabe and in no acute distress. Head/Face: Normocephalic, atraumatic. Eyes: Pupils equal round and reactive to light, extra-ocular motions intact. Lids and lashes normal. Conjunctiva and sclera are non-icteric and not injected. Cornea within normal limits. Periorbital areas with no swelling, redness, or edema. Neck: Trachea midline, no thyromegaly or masses palpated, and no cervical lymphadenopathy. Supple, full range of motion without nuchal rigidity, or vertebral point tenderness. No Meningismus. Chest/axilla: Normal chest wall appearance and motion. Nontender with no deformity. No lesions are appreciated. Cardiovascular: Regular rate and rhythm with a normal S1 and S2. No gallops, murmurs, or rubs. Normal PMI, no JVD. No pulse deficits. Respiratory: Lungs have equal breath sounds bilaterally, clear to auscultation and percussion. No rales, rhonchi or wheezes noted. No increased work of breathing, no retractions or nasal flaring. Abdomen/GI: Soft, non-tender, with normal bowel sounds. No distension or tympany. No guarding or rebound. No evidence of tenderness throughout. Back: No spinal tenderness. No costovertebral tenderness. Full range of motion. Male : Normal genitalia with no discharge or lesions. Skin: Warm, dry with normal turgor. Normal color with no rashes, no lesions, and no evidence of cellulitis. MS/ Extremity: Pulses equal, no cyanosis. Neurovascular intact. Full, normal range of motion. Neuro: Awake and alert, GCS 15, oriented to person, place, time, and situation. Cranial nerves II-XII grossly intact. Motor strength 5/5 in all extremities. Sensory grossly intact. Cerebellar exam normal. Normal gait. Psych: Awake, alert, with orientation to person, place and time. Behavior, mood, and affect are within normal limits. 21:21 ENT: Nose: External nose: no obvious acute abnormality, Nasal septum: is midline, Nasal mucosa: Dried blood. edematous, erythematous, Turbinates: are swollen bilaterally, abrasion, is not appreciated, bleeding, is not appreciated, clotted blood, in left nare, nasal drainage, is not appreciated, a foreign body, is not appreciated. Vital Signs: 20:30 BP 167 / 110; Pulse 89; Resp 16; Pulse Ox 98% on R/A; iw 20:54 BP 155 / 90; iw Procedures: 21:21 Epistaxis treatment: A small amount of bleeding noted from Treated using anterior bernabe packing, Vaseline gauze, Bleeding stopped. MDM: 20:23 Patient medically screened. [facility] 21:27 Differential diagnosis: spontaneous epistaxis. Data reviewed: vital signs, nurses bernabe notes, lab test result(s), CBC, electrolytes. Data interpreted: monitoring tech: rate is 89 beats/min, rhythm is regular, Pulse oximetry: on. Counseling: I had a detailed discussion with the patient and/or guardian regarding: the historical points, exam findings, and any diagnostic results supporting the discharge/admit diagnosis, lab results, the need for outpatient follow up, for definitive care, an ENT specialist. Administered Medications: No medications were administered Disposition: 07/19/20 21:26 Discharged to Home. Impression: Epistaxis. - Condition is Stable. - Discharge Instructions: Nosebleed, Adult, Hypertension, Hypertension, [id number], Nosebleed, [id number]. - Medication Reconciliation Form, Thank You Letter, Antibiotic Education, Prescription Opioid Use form. - Follow up: Private Physician; When: 2 - 3 days; Reason: Recheck today's complaints, Continuance of care, Re-evaluation by your physician. Follow up: Haily Bernal MD; When: Tomorrow; Reason: Recheck today's complaints, Re-evaluation by your physician. - Problem is new. - Symptoms have improved. Signatures: Baldemar Harden MD MD cha Williams, Irene RN RN iw Corrections: (The following items were deleted from the chart) 21:44 21:26 07/19/2020 21:26 Discharged to Home. Impression: Epistaxis. Condition is Stable. iw Forms are Medication Reconciliation Form, Thank You Letter, Antibiotic Education, Prescription Opioid Use. Follow up: Private Physician; When: 2 - 3 days; Reason: Recheck today's complaints, Continuance of care, Re-evaluation by your physician. Follow up: Haily Bernal; When: Tomorrow; Reason: Recheck today's complaints, Re-evaluation by your physician. Problem is new. Symptoms have improved. bernabe
[2020-07-19 21:54] VITALS: O2SAT 98
[2020-07-19 21:55] VITALS: BP 155/90
== END 2020-07-19 21:44 | disposition home or self-care (01) ==
LOC: ER 19:49
PROC: 2Y41X5Z Packing of Nasal Region using Packing Material (ICD-10-PCS; principal; 2020-07-19)
DX: R04.0 Epistaxis (principal); I10 Essential (primary) hypertension; I50.9 Heart failure, unspecified; Z88.5 Allergy status to narcotic agent; Z88.8 Allergy status to other drugs, medicaments and biological substances
CPT/HCPCS: 30901; 99283

== ENCOUNTER 2021-02-06 03:54 | Inpatient (IN) | payer SELFPAY ==
[2021-02-06 04:29] LABS: Absolute Lymphocytes (CBC) 2.5 K/uL (0.7-4.9); Basophils % 1.1 % (0-1.3); Hematocrit 39.4 % (39.6-49.0); MPV 7.8 fL (7.6-11.3); RBC Red Blood Cell Count 4.68 M/uL (4.33-5.43)
[2021-02-06 04:30] LABS: Protime INR 0.95
[2021-02-06] MEDS ORDERED: FUROSEMIDE 40 MG/4 ML VIAL ONE ×3 (04:45→19:08)
[2021-02-06] MEDS ORDERED: NITROGLYCERIN/D5W 50 MG/250 ML BTL IV ONE (04:46)
[2021-02-06 04:54] LABS: ALT/SGPT 42 U/L (12-78); AST/SGOT 32 U/L (15-37); Albumin 3.6 g/dL (3.4-5.0); Alkaline Phosphatase 85 U/L (45-117); BUN Blood Urea Nitrogen 17 mg/dL (7-18); Bicarbonate 28 mmol/L (21-32); Bilirubin Direct < 0.1 mg/dL (0-0.2); Bilirubin Total 0.3 mg/dL (0.2-1.0); Glucose Level 125 mg/dL (74-106); Magnesium 2.2 mg/dL (1.8-2.4); NT PRO-BNP 1657 pg/mL (<125); Potassium 3.6 mmol/L (3.5-5.1); Protein, Total 7.9 g/dL (6.4-8.2); Sodium Level 140 mmol/L (136-145); Troponin (Emerg Dept Use Only) 0.13 ng/mL (0.0-0.045)
--- NOTE | 2021-02-06 04:58 | ER ---
Nurse's Notes [facility] Name: Ezequiel Padron Age: 35 yrs Sex: Male : 1985 Arrival Date: 02/06/2021 Time: 03:55 Bed 28 Private MD: Diagnosis: Acute on chronic combined systolic (congestive) and diastolic (congestive) heart failure;Hypertensive Urgency Presentation: 02/06 04:06 Chief complaint: Patient states: Reports difficulty breathing that began tonight, lp1 reports shortness of breath when laying flat; States "this happens when there is fluid around my heart". Coronavirus screen: At this time, the client does not indicate any symptoms associated with coronavirus-19. Ebola Screen: No symptoms or risks identified at this time. Initial Sepsis Screen: Does the patient meet any 2 criteria? No. Patient's initial sepsis screen is negative. Does the patient have a suspected source of infection? No. Patient's initial sepsis screen is negative. Risk Assessment: Do you want to hurt yourself or someone else? Patient reports no desire to harm self or others. Onset of symptoms was February 06, 2021. 04:06 Method Of Arrival: Ambulatory lp1 04:06 Acuity: HERMELINDA 3 lp1 Triage Assessment: 04:30 Respiratory: Reports shortness of breath Breath sounds are clear Breath sounds are dc2 diminished 06:00 Respiratory: Onset: The symptoms/episode began/occurred yesterday. dc2 Historical: - Allergies: 04:07 HTN medication; lp1 04:07 Morphine; lp1 - Home Meds: 04:07 Lasix 40 mg Oral tab 1 tab once daily [Active]; lisinopril 10 mg Oral tab 1 tab twice a lp1 day [Active]; metoprolol tartrate 100 mg Oral tab 1 tab once daily [Active]; - PMHx: 04:07 CHF; Hypertension; lp1 - PSHx: 04:07 Leg sx; lp1 - Immunization history:: Adult Immunizations up to date. - Social history:: Smoking status: Patient denies any tobacco usage or history of. Screenin:09 Abuse screen: Denies threats or abuse. Denies injuries from another. Nutritional lp1 screening: No deficits noted. Tuberculosis screening: No symptoms or risk factors identified. Fall Risk None identified. Assessment: 04:15 General: Appears distressed, uncomfortable, obese, well groomed, well developed, dc2 Behavior is calm, cooperative. Pain: Denies pain. Neuro: No deficits noted. Cardiovascular: No deficits noted. Rhythm is sinus rhythm. Respiratory: Breath sounds are diminished bilaterally. in left posterior lower lobe, right posterior middle lobe and right posterior lower lobe. GI: No deficits noted. No signs and/or symptoms were reported involving the gastrointestinal system. : No signs and/or symptoms were reported regarding the genitourinary system. Musculoskeletal: No deficits noted. No signs and/or symptoms reported regarding the musculoskeletal system. 04:29 Reassessment: Nitroglycerin gtt started at 5mcg/min ( 1.5 ml ) to right forearm #20g , dc2 verified with SAMANTHA Kessler . BP 165/122, HR 76. Pt denies headache, dizziness or blurred vision at this time. Call light within reach, female at bs. 04:30 Respiratory: Airway is patent Respiratory effort is even, labored, using tripod dc2 position. 05:00 Reassessment: No changes from previously documented assessment. 0530 BP 168/135 , Nitro dc2 increased to 10mcg/min (3ml/hr) . Pt instructed on increase and Lovenox , verbalizes understanding. Call light within reach. Voices no needs at this time. Patient denies pain at this time. 05:30 Reassessment: No changes from previously documented assessment. 530 BP 173/126 , dc2 Nitroglycerin gtt increased to 15 mcg/ min (4.5 ml /hr ) verified with SAMANTHA Kessler . Pt denies Patient denies pain at this time. Vital Signs: 04:06 BP 179 / 143; Pulse 86; Resp 18; Temp 97.4; Pulse Ox 99% on R/A; Weight 104.33 kg (R); lp1 Height 6 ft. 0 in. (182.88 cm); Pain 0/10; 04:09 BP 167 / 125; lp1 04:09 Pulse 86; Resp 20; Pulse Ox 98% on R/A; Pain 0/10; dc2 04:45 BP 177 / 138; Pulse 80; Resp 18; Pulse Ox 97% ; Pain 0/10; dc2 05:00 BP 168 / 135; Pulse 84; Resp 18; Pulse Ox 98% ; Pain 0/10; dc2 05:30 BP 173 / 126; Pulse 76; Resp 18; Pulse Ox 97% on R/A; Pain 0/10; dc2 06:00 BP 176 / 132; Pulse 74; Resp 18; Pulse Ox 98% ; Pain 0/10; dc2 06:30 BP 139 / 104; Pulse 77; Resp 17; Pulse Ox 98% ; Pain 0/10; dc2 04:06 Body Mass Index 31.19 (104.33 kg, 182.88 cm) lp1 Vitals: 06:00 Cardiac Rhythm Assessment Sinus rhythm. dc2 [place] Coma Score: 04:30 Eye Response: spontaneous(4). Verbal Response: oriented(5). Motor Response: obeys dc2 commands(6). Total: 15. ED Course: 03:55 Patient arrived in ED. 2 04:00 Bull Sanchez MD is Attending Physician. 7 04:07 Triage completed. lp1 04:08 Arm band placed on. lp1 04:13 Inserted saline lock: 20 gauge in right forearm, using aseptic technique. Blood dc2 collected. 04:15 operations section manager on. Pulse ox on. NIBP on. dc2 04:16 EKG done, by ED staff, reviewed by Bull Sanchez MD. dc2 04:19 Claudio, SAMANTHA Fregoso is Primary Nurse. dc2 04:19 X-ray(s) taken. dc2 04:21 XRAY Chest (1 view) Sent. dc2 04:23 XRAY Chest (1 view) In Process Unspecified. EDMS 04:30 Door closed. Lights dimmed. Warm blanket given. Verbal reassurance given. dc2 04:30 Bed in low position. Call light in reach. Side rails up X 1. dc2 04:30 No provider procedures requiring assistance completed. dc2 04:57 Nelly Pinon MD is Hospitalizing Provider. 7 05:24 Fazal Cortes MD is Hospitalizing Provider. la1 05:59 COVID-19 : Document "Date of Symptom Onset" if Symptomatic. Sent. wg 05:59 CORONAVIRUS Sent. wg 06:30 IV is patent, is intact, with fluids infusing freely, dc2 Administered Medications: 04:20 Drug: Lasix (furosemide) 40 mg Route: IVP; Infused Over: 3 mins; Site: right forearm; dc2 05:04 Follow up: Response: No adverse reaction 04:29 Drug: Nitro Drip - (Nitroglycerin 50 mg, D5W 250 ml) Route: IV; Rate: 5 mcg/min; Site: dc2 right forearm; Delivery: Primary tubing; 05:00 Follow up: Rate change 10 mcg/min dc2 05:30 Follow up: Rate change 15 mcg/min; IV Status: Infusion continued upon admission dc2 06:00 Follow up: Rate change 20 mcg/min dc2 06:30 Follow up: Rate change 20 mcg/min; IV Status: Infusion continued upon admission dc2 05:04 Drug: Lovenox (enoxaparin) 1 mg/kg Route: Sub-Q; Site: right lower abdomen; 06:00 Follow up: Response: No adverse reaction dc2 Intake: 06:00 PO: 30ml (Water); Total: 30ml. dc2 Output: 06:00 Urine: 500ml (Voided); Total: 500ml. dc2 Outcome: 04:58 Decision to Hospitalize by Provider. [facility] 05:00 Admitted to ICU Other Pt will remain in the ED as an ICU hold. dc2 06:44 Condition: improved dc2 10 17:25 Discharged to home ambulatory. Discharge instructions given to patient, Instructed on discharge instructions, follow up and referral plans. medication usage, safety practices, Demonstrated understanding of instructions, follow-up care, medications. 17:51 Patient left the ED. sv Signatures: Dispatcher [employer] Haily Mitchell RN RN sv Pena, Laura, RN RN lp1 Connor Naidu, DELIVERY [facility] DELIVERY [facility] Bull Sanchez MD MD 7 Checo Lee RN wg Alexander, Jessica ja2 Robinson, Willena wr Charters, Denise, RN RN dc2
--- NOTE | 2021-02-06 04:58 | EDPHYS ---
Physician Documentation [facility] Name: Ezequiel Padron Age: 35 yrs Sex: Male : 1985 Arrival Date: 02/06/2021 Time: 03:55 Bed 28 Private MD: ED Physician Bull Sanchez HPI: 02/06 04:02 This 35 yrs old Black Male presents to ER via Ambulatory with complaints of Breathing mh7 Difficulty. 04:02 The patient has shortness of breath at rest, with light activity. Onset: The mh7 symptoms/episode began/occurred last night. Duration: The symptoms are continuous, and are unchanged since they started. The patient's shortness of breath is aggravated by exertion, light activity, is alleviated by nothing. Associated signs and symptoms: Pertinent negatives: chest pain, non-productive cough, productive cough, diaphoresis, dizziness, fever, hemoptysis, loss of consciousness, nausea, numbness in extremities, visual changes, vomiting. Severity of symptoms: At their worst the symptoms were moderate last night, in the emergency department the symptoms are unchanged. The patient has experienced similar episodes in the past, multiple times. Historical: - Allergies: 04:07 HTN medication; lp1 04:07 Morphine; lp1 - Home Meds: 04:07 Lasix 40 mg Oral tab 1 tab once daily [Active]; lisinopril 10 mg Oral tab 1 tab twice a lp1 day [Active]; metoprolol tartrate 100 mg Oral tab 1 tab once daily [Active]; - PMHx: 04:07 CHF; Hypertension; lp1 - PSHx: 04:07 Leg sx; lp1 - Immunization history:: Adult Immunizations up to date. - Social history:: Smoking status: Patient denies any tobacco usage or history of. ROS: 04:02 Constitutional: Negative for fever, chills, and weight loss, Eyes: Negative for injury, mh7 pain, redness, and discharge, ENT: Negative for injury, pain, and discharge, Neck: Negative for injury, pain, and swelling, Cardiovascular: Negative for chest pain, palpitations, and edema, Abdomen/GI: Negative for abdominal pain, nausea, vomiting, diarrhea, and constipation, Back: Negative for injury and pain, : Negative for injury, bleeding, discharge, and swelling, MS/Extremity: Negative for injury and deformity, Skin: Negative for injury, rash, and discoloration, Neuro: Negative for headache, weakness, numbness, tingling, and seizure, Psych: Negative for depression, anxiety, suicide ideation, homicidal ideation, and hallucinations, Allergy/Immunology: Negative for hives, rash, and allergies, Endocrine: Negative for neck swelling, polydipsia, polyuria, polyphagia, and marked weight changes, Hematologic/Lymphatic: Negative for swollen nodes, abnormal bleeding, and unusual bruising. Exam: 04:02 Head/Face: Normocephalic, atraumatic. Eyes: Pupils equal round and reactive to light, mh7 extra-ocular motions intact. Lids and lashes normal. Conjunctiva and sclera are non-icteric and not injected. Cornea within normal limits. Periorbital areas with no swelling, redness, or edema. Neck: Trachea midline, no thyromegaly or masses palpated, and no cervical lymphadenopathy. Supple, full range of motion without nuchal rigidity, or vertebral point tenderness. No Meningismus. Chest/axilla: Normal chest wall appearance and motion. Nontender with no deformity. No lesions are appreciated. Cardiovascular: Regular rate and rhythm with a normal S1 and S2. No gallops, murmurs, or rubs. Normal PMI, no JVD. No pulse deficits. 04:02 Abdomen/GI: Soft, non-tender, with normal bowel sounds. No distension or tympany. No guarding or rebound. No evidence of tenderness throughout. Back: No spinal tenderness. No costovertebral tenderness. Full range of motion. Skin: Warm, dry with normal turgor. Normal color with no rashes, no lesions, and no evidence of cellulitis. MS/ Extremity: Pulses equal, no cyanosis. Neurovascular intact. Full, normal range of motion. Neuro: Awake and alert, GCS 15, oriented to person, place, time, and situation. Cranial nerves II-XII grossly intact. Motor strength 5/5 in all extremities. Sensory grossly intact. Cerebellar exam normal. Normal gait. Psych: Awake, alert, with orientation to person, place and time. Behavior, mood, and affect are within normal limits. 04:02 Constitutional: The patient appears in no acute distress, alert, awake, uncomfortable. 04:02 Respiratory: the patient does not display signs of respiratory distress, Respirations: normal, Breath sounds: rales, that are mild, are located in both bases, rhonchi, that are mild, are scattered, Respiratory rate: 18 Vital Signs: 04:06 BP 179 / 143; Pulse 86; Resp 18; Temp 97.4; Pulse Ox 99% on R/A; Weight 104.33 kg (R); lp1 Height 6 ft. 0 in. (182.88 cm); Pain 0/10; 04:09 BP 167 / 125; lp1 04:09 Pulse 86; Resp 20; Pulse Ox 98% on R/A; Pain 0/10; dc2 04:45 BP 177 / 138; Pulse 80; Resp 18; Pulse Ox 97% ; Pain 0/10; dc2 05:00 BP 168 / 135; Pulse 84; Resp 18; Pulse Ox 98% ; Pain 0/10; dc2 05:30 BP 173 / 126; Pulse 76; Resp 18; Pulse Ox 97% on R/A; Pain 0/10; dc2 06:00 BP 176 / 132; Pulse 74; Resp 18; Pulse Ox 98% ; Pain 0/10; dc2 06:30 BP 139 / 104; Pulse 77; Resp 17; Pulse Ox 98% ; Pain 0/10; dc2 04:06 Body Mass Index 31.19 (104.33 kg, 182.88 cm) lp1 [place] Coma Score: 04:30 Eye Response: spontaneous(4). Verbal Response: oriented(5). Motor Response: obeys dc2 commands(6). Total: 15. MDM: 04:56 Differential diagnosis: Anemia Anxiety Reaction asthma, Bronchitis CHF exacerbation, mh7 Chronic Obstructive Pulmonary Disease Myocardial Infarction pneumonia, Pneumothorax Psychogenic pulmonary edema, reactive airway disease. Data reviewed: vital signs, nurses notes, old medical records, lab test result(s), cardiac enzymes, CBC, electrolytes, EKG, radiologic studies, plain films. Data interpreted: Pulse oximetry: on 2L(s) per nasal canula, is 97 %. Interpretation: normal. Counseling: I had a detailed discussion with the patient and/or guardian regarding: the historical points, exam findings, and any diagnostic results supporting the discharge/admit diagnosis, the presence of at least one elevated blood pressure reading (>120/80) during this emergency department visit, lab results, radiology results, the need for further work-up and treatment in the hospital. Response to treatment: the patient's symptoms have mildly improved after treatment. 04:58 Patient medically screened. [facility] 02/06 04:02 Order name: Basic Metabolic Panel; Complete Time: 04:55 7 02/06 04:02 Order name: CBC with Diff; Complete Time: 04:59 7 02/06 04:02 Order name: LFT's; Complete Time: 04:55 7 02/06 04:02 Order name: Magnesium; Complete Time: 04:55 [facility] 02/06 04:02 Order name: NT PRO-BNP; Complete Time: 04:55 7 02/06 04:02 Order name: PT-INR; Complete Time: 05:00 [facility] 02/06 04:02 Order name: Troponin (emerg Dept Use Only); Complete Time: 04:55 [facility] 02/06 05:19 Order name: COVID-19 : Document "Date of Symptom Onset" if Symptomatic. bb 02/06 05:49 Order name: CORONAVIRUS [facility]SC 02/06 05:55 Order name: Urine Dipstick-Ancillary; Complete Time: 05:59 [facility] 02/06 06:55 Order name: SARS-COV-2 RT PCR [facility] 02/06 12:24 Order name: Troponin I [facility] 02/06 17:29 Order name: Troponin I [facility] 02/07 05:29 Order name: CBC with Automated Diff EDMS 02/06 04:02 Order name: XRAY Chest (1 view) [facility] 02/06 04:02 Order name: EKG; Complete Time: 04:03 [facility] 02/06 04:02 Order name: Cardiac monitoring; Complete Time: 04:21 [facility] 02/06 04:02 Order name: EKG - Nurse/Tech; Complete Time: 04:22 [facility] 02/06 04:02 Order name: IV Saline Lock; Complete Time: 04:22 [facility] 02/06 04:02 Order name: Labs collected and sent; Complete Time: 04:22 [facility] 02/06 04:02 Order name: O2 Per Protocol; Complete Time: 04:22 [facility] 02/06 04:02 Order name: O2 Sat Monitoring; Complete Time: 04:22 [facility] 02/07 16:49 Order name: Comprehensive Metabolic Panel [facility] 02/07 16:49 Order name: T4 Free [facility] 02/07 16:49 Order name: Magnesium EDMS 02/07 16:49 Order name: Thyroid Stimulating Hormone EDMS Administered Medications: 04:20 Drug: Lasix (furosemide) 40 mg Route: IVP; Infused Over: 3 mins; Site: right forearm; dc2 05:04 Follow up: Response: No adverse reaction 04:29 Drug: Nitro Drip - (Nitroglycerin 50 mg, D5W 250 ml) Route: IV; Rate: 5 mcg/min; Site: dc2 right forearm; Delivery: Primary tubing; 05:00 Follow up: Rate change 10 mcg/min dc2 05:30 Follow up: Rate change 15 mcg/min; IV Status: Infusion continued upon admission dc2 06:00 Follow up: Rate change 20 mcg/min dc2 06:30 Follow up: Rate change 20 mcg/min; IV Status: Infusion continued upon admission dc2 05:04 Drug: Lovenox (enoxaparin) 1 mg/kg Route: Sub-Q; Site: right lower abdomen; 06:00 Follow up: Response: No adverse reaction dc2 Disposition Summary: 02/06/21 04:58 Hospitalization Ordered Hospitalization Status: Inpatient Admission mh7 Condition: Stable mh7 Problem: an acute exacerbation mh7 Symptoms: have improved mh7 Bed/Room Type: Standard [facility] Provider: Fazal Cortes(02/06/21 05:24) la1 Location: [facility] ER HOLD(02/06/21 07:04) tl1 Room Assignment: ERHOLD-(02/06/21 07:04) tl1 Diagnosis - Acute on chronic combined systolic (congestive) and diastolic (congestive) heart 7 failure - Hypertensive Urgency 7 Discharge Instructions: - Discharge Summary Sheet em Forms: - Family Work Release em - Medication Reconciliation Form 7 - SBAR form [facility] Signatures: Dispatcher [employer] EDMS Lashae Chandler RN RN lp1 Connor Naidu FNP-C FNP-Cla1 Celia Lorenz RN RN tl1 Bull Sanchez MD MD 7 Checo Lee RN wg Zenobia Snyder RN RN dc2 Corrections: (The following items were deleted from the chart) 05:24 04:58 Nelly Pinon 7 la1 05:30 04:58 Telemetry/MedSurg (Inpatient) [place] [id number] 05:30 04:58 mh7 mh7 07:04 05:30 Intensive Care Unit mh7 tl1 07:04 05:30 mh7 tl1
--- NOTE | 2021-02-06 05:05 | P.HP ---
Certification for Inpatient Patient admitted to: Inpatient With expected LOS: >2 Midnights Patient will require the following post-hospital care: None Practitioner: I am a practitioner with admitting privileges, knowledge of patient current condition, hospital course, and medical plan of care. Services: Services provided to patient in accordance with Admission requirements found in Title 42 Section 412.3 of the Code of Federal Regulations Patient History Date of Service: 02/06/21 Reason for admission: CHF exacerbation History of Present Illness: 35-year-old -[place]er male with history of chronic systolic congestive heart failure, hypertension, hyperlipidemia presents emergency department for shortness of breath, hypertension. Initial blood pressure 177/138. Patient reports he is been noncompliant with his medications at home has run out of some and only taking others periodically. Labs are significant for creatinine 1.42 GFR 69 troponin 0 0.13 BNP 1607 chest x-ray with pulmonary edema. Patient was started on nitroglycerin drip in the emergency department, blood pressure is improving slowly. Last echocardiogram in July of this year with 55% ejection fraction but previously with systolic dysfunction and echocardiogram with EF around 35%. Patient given Lasix as well, ED provider wishes to admit for CHF exacerbation, hypertensive emergency. Allergies HTN medication canno recall the nam Allergy (Uncoded 04/23/19 03:36) Nausea/Vomiting Home Medications: Nitroglycerin [Nitrostat*] 0.4 mg SL SEECOM PRN 07/06/20 Aspirin [Aspirin EC 81 MG] 81 mg PO DAILY #90 tablet. 07/07/20 Atorvastatin Calcium [Lipitor] 40 mg PO BEDTIME #30 tab 07/07/20 Folic Acid 1 mg PO DAILY #90 tablet 07/07/20 Furosemide [Lasix*] 40 mg PO DAILY #30 tab 07/07/20 Hydralazine [Apresoline*] 25 mg PO BID #60 tab 07/07/20 Metoprolol Tartrate 100 mg PO BID #60 tablet 07/07/20 lisinopriL [Lisinopril] 40 mg PO DAILY #30 tablet 07/07/20 - Past Medical/Surgical History Diabetic: No -: Hypertension -: Systolic CHF, EF 35%now improved to 55% -: Noncompliance with medication -: right leg surgery Psychosocial/ Personal History: Patient is . 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 moist/pink, EOMI, Sclerae nonicteric Neck: Supple, 2+ carotid pulse no bruit, No LAD, Without JVD or thyroid abnormality Respiratory: Crackles/rales Cardiovascular: Regular rate/rhythm, Normal S1 S2 Gastrointestinal: Normal bowel sounds, No tenderness Musculoskeletal: No tenderness Integumentary: No rashes Neurological: Normal gait, Normal speech, Normal strength at 5/5 x4 extr, Normal tone, Normal affect Lymphatics: No axilla or inguinal lymphadenopathy - Studies Laboratory Data (last 24 hrs) 02/06/21 04:15: PT 10.9, INR 0.95 02/06/21 04:15: WBC 10.10, Hgb 13.6, Hct 39.4 L, Plt Count 429 H 02/06/21 04:15: Sodium 140, Potassium 3.6, BUN 17, Creatinine 1.42 H, Glucose 125 H, Magnesium 2.2, Total Bilirubin 0.3, AST 32, ALT 42, Alkaline Phosphatase 85 Assessment and Plan - Plan Assessment: NSTEMI, hypertensive emergency secondary to acute on chronic systolic congestive heart failure with medical noncompliance Hypertension Hyperlipidemia Plan: NSTEMI, hypertensive emergency secondary to acute on chronic systolic congestive heart failure with medical noncompliance: Initial troponin 0.13, patient reports noncompliance with his medications. Currently on nitroglycerin drip will start oral medications and transition off of nitroglycerin drip. Home blood pressure medications include hydralazine 25 mg p.o. twice daily, lisinopril 40 mg p.o. daily, metoprolol tartrate 100 mg p.o. twice daily. Last echocardiogram in July 2020 demonstrated EF of 55%, patient previously with systolic dysfunction and EF of 35%. Cardiology consulted. Full dose Lovenox. Hypertension: Home medications have been continued Hyperlipidemia:Home medications have been continued DVT PPX: Full dose Lovenox Code status: Full code Discharge Plan: Home Plan to discharge in: 48 Hours - Advance Directives Does patient have a Living Will: No Does patient have a Durable POA for Healthcare: No - Code Status/Comfort Care Code Status Assessed: Yes (Full code) Critical Care: No Time Spent Managing Pts Care (In Minutes): 55
[2021-02-06] MEDS ORDERED: ENOXAPARIN 100 MG/ML SYR SQ ONE ×3 (05:27→19:49)
[2021-02-06 05:55] LABS: Urine Blood Negative (Negative); Urine Glucose Negative (Negative); Urine Protein 1+ (Negative)
[2021-02-06] MEDS ORDERED: NITROGLYCERIN/D5W 50 MG/250 ML BTL IV SCH (07:34)
[2021-02-06] MEDS ORDERED: ONDANSETRON 4 MG/2 ML VIAL IV PRN (07:34)
--- NOTE | 2021-02-06 07:38 | RAD REPORT ---
EXAM DESCRIPTION: Nathan Single View02/06/2021 4:23 am CLINICAL HISTORY: Shortness of breath COMPARISON: July 2020 FINDINGS: Lungs appear mildly hazy. The heart is mildly enlarged IMPRESSION: Mild bilateral pulmonary opacities may represent pulmonary edema or pneumonia
[2021-02-06] MEDS: lisinopriL 20 MG TAB PO SCH (08:45)
[2021-02-06] MEDS: HYDRALAZINE HCL 25 MG TABLET PO SCH ×2 (08:45→20:24)
[2021-02-06] MEDS: FUROSEMIDE 40 MG/4 ML VIAL IV SCH ×2 (08:45→17:00)
[2021-02-06] MEDS: METOPROLOL TAR 50 MG TAB PO SCH ×2 (08:45→20:24)
[2021-02-06] MEDS: ACETAMINOPHEN 500 MG TAB PO PRN ×2 (08:46→14:42)
[2021-02-06] MEDS ORDERED: HYDRALAZINE HCL 25 MG TABLET ONE ×2 (08:58→19:49)
[2021-02-06] MEDS ORDERED: lisinopriL 20 MG TAB ONE (08:58)
[2021-02-06] MEDS ORDERED: METOPROLOL TAR 50 MG TAB ONE ×2 (08:58→19:49)
[2021-02-06] MEDS ORDERED: ACETAMINOPHEN 500 MG TAB ONE ×2 (08:59→14:52)
[2021-02-06] MEDS: ENOXAPARIN 100 MG/ML SYR SQ SCH ×2 (09:00→20:24)
[2021-02-06] MEDS ORDERED: ONDANSETRON 4 MG/2 ML VIAL ONE (09:20)
[2021-02-06] MEDS ORDERED: ATORVASTATIN 20 MG TAB ONE (19:49)
[2021-02-06 19:56] VITALS: O2SAT 100; BMI 31.1
[2021-02-06] MEDS ORDERED: ATORVASTATIN 40 MG TAB PO SCH (21:00)
[2021-02-07 05:29] LABS: Absolute Lymphocytes (CBC) 2.5 K/uL (0.7-4.9); Basophils % 1.3 % (0-1.3); Hematocrit 37.7 % (39.6-49.0); MPV 8.5 fL (7.6-11.3); RBC Red Blood Cell Count 4.42 M/uL (4.33-5.43)
[2021-02-07] MEDS: METOPROLOL TAR 50 MG TAB PO SCH (08:40)
[2021-02-07] MEDS: HYDRALAZINE HCL 25 MG TABLET PO SCH (08:40)
[2021-02-07] MEDS: FUROSEMIDE 40 MG/4 ML VIAL IV SCH (08:40)
[2021-02-07] MEDS: ENOXAPARIN 100 MG/ML SYR SQ SCH (08:40)
[2021-02-07] MEDS: lisinopriL 20 MG TAB PO SCH (08:41)
[2021-02-07] MEDS ORDERED: HYDRALAZINE HCL 25 MG TABLET ONE (08:53)
[2021-02-07] MEDS ORDERED: METOPROLOL TAR 50 MG TAB ONE (08:53)
[2021-02-07] MEDS ORDERED: lisinopriL 20 MG TAB ONE (08:53)
[2021-02-07] MEDS ORDERED: ENOXAPARIN 100 MG/ML SYR SQ ONE (08:54)
[2021-02-07] MEDS ORDERED: FUROSEMIDE 40 MG/4 ML VIAL ONE (08:54)
[2021-02-07 12:40] VITALS: TEMP 98.2
[2021-02-07 14:42] VITALS: BP 153/106
--- NOTE | 2021-02-07 16:26 | P.DS ---
Admission Date: 02/06/21 Discharge Date: 02/07/21 Disposition: ROUTINE DISCHARGE Discharge Condition: FAIR Reason for Admission: CHF exacerbation Consultations: Cardiology - Problems (1) Hypertensive emergency Current Visit: No Status: Acute (2) Acute on chronic diastolic heart failure Current Visit: Yes Status: Acute Brief History of Present Illness: 35-year-old -[place]ic male with history of chronic congestive heart failure, hypertension, hyperlipidemia presents emergency department for shortness of breath, hypertension. Initial blood pressure 177/138. Patient reported noncompliant with his medications stating he ran out of some of his medications and was taking some only periodically. Labs are significant for creatinine 1.42 GFR 69 troponin 0 0.13 BNP 1607 chest x-ray with pulmonary edema. Patient was started on nitroglycerin drip in the emergency department, with some improvement in his blood pressure. Last echocardiogram in July of this year showed EF 55% ejection fraction but previously with systolic dysfunction and echocardiogram with EF around 35%. Given IV Lasix and admitted for CHF exacerbation and hypertensive emergency. Hospital Course: Patient admitted and treated with IV NTG drip with improvement in his blood pressure. He was also treated with IV Lasix for CHF exacerbation. His shortness of breath resolved with treatment. Patient seen and evaluated by cardiology-Dr. Quezada, no further intervention recommended. He has clinically improved to baseline. Repeat echocardiogram is done and the result is pending. Patient asking to go home today. He is discharged with a refill of his medications. Vital Signs/Physical Exam: Temp Pulse Resp BP Pulse Ox 98.2 F 73 20 153/106 H 100 02/07/21 12:00 02/07/21 14:00 02/07/21 14:00 02/07/21 14:00 02/07/21 14:00 General: Alert, In no apparent distress, Oriented x3 HEENT: Mucous membr. moist/pink Neck: JVD not distended Respiratory: Clear to auscultation bilaterally, Normal air movement Cardiovascular: No edema, Regular rate/rhythm, Normal S1 S2, No murmurs Gastrointestinal: Normal bowel sounds, Soft and benign, No tenderness Musculoskeletal: No swelling, No tenderness Integumentary: No rashes, No erythema Neurological: Normal speech, Normal strength at 5/5 x4 extr Laboratory Data at Discharge: WBC 12.40 K/uL (4.3-10.9) H D 02/07/21 04:30 Hgb 12.6 g/dL (13.6-17.9) L 02/07/21 04:30 Hct 37.7 % (39.6-49.0) L 02/07/21 04:30 Plt Count 429 K/uL (152-406) H 02/07/21 04:30 PT 10.9 SECONDS (9.5-12.5) 02/06/21 04:15 INR 0.95 02/06/21 04:15 Sodium 140 mmol/L (136-145) 02/06/21 04:15 Potassium 3.6 mmol/L (3.5-5.1) 02/06/21 04:15 BUN 17 mg/dL (7-18) 02/06/21 04:15 Creatinine 1.42 mg/dL (0.55-1.3) H 02/06/21 04:15 Glucose 125 mg/dL (74-106) H 02/06/21 04:15 Magnesium 2.2 mg/dL (1.8-2.4) 02/06/21 04:15 Total Bilirubin 0.3 mg/dL (0.2-1.0) 02/06/21 04:15 AST 32 U/L (15-37) 02/06/21 04:15 ALT 42 U/L (12-78) 02/06/21 04:15 Alkaline Phosphatase 85 U/L (45-117) 02/06/21 04:15 Troponin I 0.07 ng/mL (0.0-0.045) H 02/06/21 17:05 Home Medications: Aspirin [Aspirin EC 81 MG] 81 mg PO DAILY #90 tablet. 02/07/21 Atorvastatin Calcium [Lipitor] 40 mg PO BEDTIME #90 tab 02/07/21 Folic Acid 1 mg PO DAILY 90 Days #90 tablet 02/07/21 Furosemide [Lasix*] 40 mg PO DAILY 90 Days #90 tab 02/07/21 Hydralazine [Apresoline*] 25 mg PO BID 90 Days #180 tab 02/07/21 Metoprolol Tartrate 100 mg PO BID 90 Days #180 tablet 02/07/21 Nitroglycerin [Nitrostat*] 0.4 mg SL SEECOM PRN #20 tab 02/07/21 lisinopriL [Lisinopril] 40 mg PO DAILY 90 Days #90 tablet 02/07/21 New Medications: Hydralazine [Apresoline*] 25 mg PO BID 90 Days #180 tab Aspirin [Aspirin EC 81 MG] 81 mg PO DAILY #90 tablet. Folic Acid 1 mg PO DAILY 90 Days #90 tablet Furosemide [Lasix*] 40 mg PO DAILY 90 Days #90 tab Atorvastatin Calcium [Lipitor] 40 mg PO BEDTIME #90 tab lisinopriL [Lisinopril] 40 mg PO DAILY 90 Days #90 tablet Metoprolol Tartrate 100 mg PO BID 90 Days #180 tablet Nitroglycerin [Nitrostat*] 0.4 mg SL SEECOM PRN #20 tab PRN Reason: chest pain Diet: AHA Activity: Ad noble Followup: NONE,NONE [Primary Care Provider] - 1 Week Time spent managing pt's care (in minutes): 33
[2021-02-07 16:46] LABS: Albumin 3.3 g/dL (3.4-5.0); Bilirubin Total 0.3 mg/dL (0.2-1.0); Protein, Total 7.6 g/dL (6.4-8.2); Thyroid Stimulating Hormone 2.26 uIU/mL (0.360-3.740)
[2021-02-07 16:48] LABS: Magnesium 2.1 mg/dL (1.8-2.4); Potassium 3.6 mmol/L (3.5-5.1)
--- NOTE | 2021-02-07 18:13 | EKG ---
Test Date: 2021-02-06 Test Time: 04:15:46 Air Brake Man: MEASUREMENT RESULTS: Intervals: Rate: 78 HI: 160 QRSD: 102 QT: 404 QTc: 460 Hosmer: P: 45 HI: 160 QRS: 1 T: 169 INTERPRETIVE STATEMENTS: Normal sinus rhythm Possible Left atrial enlargement Left ventricular hypertrophy with repolarization abnormality Abnormal ECG Compared to ECG 07/06/2020 05:33:13 No significant changes Electronically Signed On 02-07-21 18:06:19 CDT by Agapito Quezada
[2021-02-07] MEDS ORDERED: HOME MED 1 EA UNK (Metoprolol Tartrate [Metoprolol Tartrate] 100 MG Tablet) PO SCH (21:00)
[2021-02-07] MEDS ORDERED: ATORVASTATIN 40 MG TAB PO SCH (21:00)
--- NOTE | 2021-02-08 00:32 | CON ---
Date of Consultation: 02/06/[address] Cortes on 02/06/2021. Reason For Consultation: Congestive heart failure. History Of Present Illness: Mr. Padron is a 35-year-old black male, very noncompliant with his medic ation, has known hypertension, has known diastolic congestive heart failure, has run out of medicine. He is supposed to be taking Lasix, lisinopril, and metoprolol but has not taken his medication and came back with acute on chronic diastolic congestive heart failure. No chest pain. No syncope. No fever. No chills. Past Medical History: As stated above. Allergies: HE IS ALLERGIC TO MORPHINE. Review of Systems: Negative. Social History: Negative. Family History: Negative. Medications: Listed earlier. Physical Examination: Vital Signs: His blood pressure was 139/104, his pulse was 79, he was in sinus rhythm, afebrile. O2 saturation was 97% on room air. HEENT: Negative. Neck: Supple. No bruit. Chest: Clear on the right. On the left, he had some rales. Cardiac: Revealed a regular rhythm and rate with an S4 gallop. No murmurs or rubs. Abdomen: Benign. Extremities: Revealed no clubbing, cyanosis. He has 1+ edema. Diagnostic Data: A chest x-ray showed mild pulmonary edema. EKG showed left ventricular hypertrophy . His creatinine was slightly elevated at 1.42. Hemoglobin was normal. White count was normal. Hi s troponin is 0.13 and BNP is 1657. He was COVID negative. Impression And Plan: Acute on chronic diastolic congestive heart failure secondary to noncompliance. Elevated troponin and BNP secondary to congestive heart failure and demand ischemia. The patient n eeds to be on his home regimen including Lasix, lisinopril, and metoprolol. I think he needs to have various talks as far as compliance is concerned with his medication and outpatient followup. No nee d for any further cardiac workup at this point. He is known to have a normal ejection fraction by mu ltiple echoes in the past, the last of which in July, his EF is 55%. He has grade 1 diastolic dysfu nction and left ventricular hypertrophy. I am comfortable with Mr. Padron going home whenever it is okay with Dr. Javier and Dr. Cortes. I am hoping to see him in the office as an outpatient. MISHA/ROLAND Voice ID: [id number] Report ID: [id number]
--- NOTE | 2021-02-08 08:10 | ECHO ---
HEIGHT: 6 ft 0 in WEIGHT: 230 lb 0 oz DATE OF STUDY: 02/07/[address]: Fazal Cortes MD 2-DIMENSIONAL: YES M.MODE: YES DOPPLER: YES COLOR FLOW: YES TDS: NO PORTABLE: NO DEFINITY: NO BUBBLE STUDY: NO DIAGNOSIS: CHEST PAIN CARDIAC HISTORY: CATHERIZATION: NO SURGERY: NO PROSTHETIC VALVE: NO PACEMAKER: NO MEASUREMENTS (cm) DIASTOLIC (NORMALS) SYSTOLIC (NORMALS) IVSd 1.1 (0.6-1.2) LA Diam 2.9 (1.9-4.0) LVEF 66% LVIDd 3.2 (3.5-5.7) LVIDs 2.1 (2.0-3.5) %FS 35% LVPWd 1.1 (0.6-1.2) Ao Diam 2.1 (2.0-3.7) 2 DIMENSIONAL ASSESSMENT: RIGHT ATRIUM: NORMAL LEFT ATRIUM: NORMAL RIGHT VENTRICLE: NORMAL LEFT VENTRICLE: LEFT VENTICULAR HYPERTROPHY TRICUSPID VALVE: NORMAL MITRAL VALVE: NORMAL PULMONIC VALVE: NORMAL AORTIC VALVE: NORMAL PERICARDIAL EFFUSION: NONE AORTIC ROOT: NORMAL LEFT VENTRICULAR WALL MOTION: DECREASED LEFT VENTRICULAR COMPLIANCE. DOPPLER/COLOR FLOW: NORMAL COMMENTS: DECREASED LEFT VENTRICULAR COMPLIANCE. GRADE I DIASTOLIC DYSFUNCTION. LEFT VENTICULAR HYPERTROPHY. NORMAL LEFT VENTRICULAR EJECTION FRACTION. TECHNOLOGIST: Jef SERRA
[2021-02-08] MEDS ORDERED: HOME MED 1 EA UNK (Lisinopril [Lisinopril] 40 MG Tablet) PO SCH (09:00)
== END 2021-02-07 17:59 | disposition home or self-care (01) | DRG 291 ==
LOC: ER 03:54 → ERHOLD 04:57
PROVIDERS: ADMIT Hospitalist; ATTEND Hospitalist
DX: I11.0 Hypertensive heart disease with heart failure (principal); I50.33 Acute on chronic diastolic (congestive) heart failure; I16.1 Hypertensive emergency; E78.5 Hyperlipidemia, unspecified; Z91.14 Patient's other noncompliance with medication regimen; Z20.822 Contact with and (suspected) exposure to COVID-19
CPT/HCPCS: 36415; 71045; 80048; 80053; 80076; 81003; 83735; 83880; 84439; 84443; 84484; 85025; 85610; 93005; 93306; 96365; 96372; 96375; 99285; J1650; J1940; J2405; U0003

== ENCOUNTER 2021-08-17 00:52 | Emergency (ER) | payer SELFPAY ==
[2021-08-17 02:16] LABS: Absolute Lymphocytes (CBC) 3.1 K/uL (0.7-4.9); Hematocrit 36.8 % (39.6-49.0); Lymphocytes % 26.3 % (15.3-44.8); MPV 7.8 fL (7.6-11.3); RBC Red Blood Cell Count 4.27 M/uL (4.33-5.43)
[2021-08-17 02:35] LABS: Potassium 3.5 mmol/L (3.5-5.1)
[2021-08-17 02:36] LABS: Troponin High Sensitivity 149.2 pg/mL (<58.9)
[2021-08-17] MEDS ORDERED: METOPROLOL TAR 50 MG TAB ONE (02:42)
[2021-08-17] MEDS ORDERED: lisinopriL 20 MG TAB ONE (02:42)
[2021-08-17] MEDS ORDERED: FUROSEMIDE 40 MG/4 ML VIAL ONE (02:43)
--- NOTE | 2021-08-17 05:29 | ER ---
Nurse's Notes [facility] Name: Ezequiel Padron Age: 36 yrs Sex: Male : 1985 Arrival Date: 08/17/2021 Time: 00:58 Bed 15 Private MD: Diagnosis: Unspecified combined systolic (congestive) and diastolic (congestive) heart failure;Hypertensive heart disease with heart failure Presentation: 08/17 01:09 Chief complaint: Patient states: "My blood pressure is definitely high, when I lay lp1 down, I have a hard time breathing and I wake up gasping for air"; Reports similar symptoms when told he had fluid on his chest. Coronavirus screen: At this time, the client does not indicate any symptoms associated with coronavirus-19. Ebola Screen: No symptoms or risks identified at this time. Risk Assessment: Do you want to hurt yourself or someone else? Patient reports no desire to harm self or others. Onset of symptoms was August 17, 2021. 01:09 Method Of Arrival: Ambulatory lp1 01:09 Acuity: HERMELINDA 3 lp1 01:11 Initial Sepsis Screen: Does the patient meet any 2 criteria? No. Patient's initial lp1 sepsis screen is negative. Does the patient have a suspected source of infection? No. Patient's initial sepsis screen is negative. Triage Assessment: 03:54 General: Appears in no apparent distress. Behavior is cooperative. Respiratory: the sm5 patient has mild shortness of breath. Respiratory: Reports shortness of breath Onset: The symptoms/episode began/occurred just prior to arrival. Historical: - Allergies: 01:10 Morphine; lp1 01:10 HTN medication; lp1 - Home Meds: 01:10 Lasix 40 mg Oral tab 1 tab once daily [Active]; lisinopril 10 mg Oral tab 1 tab twice a lp1 day [Active]; metoprolol tartrate 100 mg Oral tab 1 tab once daily [Active]; - PMHx: 01:10 CHF; Hypertension; lp1 - PSHx: 01:10 Leg sx; lp1 - Immunization history:: Adult Immunizations up to date, Client reports receiving the 2nd dose of the Covid vaccine. - Social history:: Smoking status: Patient denies any tobacco usage or history of. Screenin:16 Abuse screen: Denies threats or abuse. Denies injuries from another. Nutritional lp1 screening: No deficits noted. Tuberculosis screening: No symptoms or risk factors identified. 03:54 Fall Risk None identified. 5 Assessment: 02:05 General: Appears in no apparent distress. Behavior is cooperative. Pain: Denies pain. sm5 Neuro: No deficits noted. Level of Consciousness is awake, alert, obeys commands, Oriented to person, place, time, situation. Cardiovascular: Reports shortness of breath, Capillary refill < 3 seconds Patient's skin is warm and dry. Rhythm is regular. Respiratory: Reports shortness of breath Airway is patent Trachea midline Respiratory effort is even, Breath sounds are clear bilaterally. 03:45 Reassessment: pt stating he still feels short of breath when he falls asleep. pt 99% on sm5 RA. 06:41 Reassessment: No changes from previously documented assessment. Patient and/or family 5 updated on plan of care and expected duration. Pain level reassessed. Patient is alert, oriented x 3, equal unlabored respirations, skin warm/dry/pink. Vital Signs: 01:11 BP 177 / 134 RA; Pulse 79; Resp 20; Temp 99(TE); Pulse Ox 100% on R/A; Weight 104.33 kg lp1 (R); Height 6 ft. 0 in. (182.88 cm); Pain 0/10; 01:14 BP 172 / 129 LA; lp1 03:54 BP 174 / 135; Pulse 84; Resp 12; Pulse Ox 100% on R/A; sm5 05:13 BP 165 / 109; Pulse 81; Resp 22; Pulse Ox 100% on R/A; sm5 06:39 BP 161 / 128; Pulse 80; Resp 19; Pulse Ox 100% on R/A; sm5 01:11 Body Mass Index 31.19 (104.33 kg, 182.88 cm) lp1 ED Course: 00:58 Patient arrived in ED. kz 01:10 Triage completed. lp1 01:10 Arm band placed on. lp1 01:48 Álvaro Fields MD is Attending Physician. kdr 01:49 Toma Mathew RN is Primary Nurse. sm5 01:55 Inserted saline lock: 20 gauge in right antecubital area, using aseptic technique. 5 Blood collected. 02:05 Basic Metabolic Panel Sent. sm5 02:05 CBC with Diff Sent. sm5 02:05 Troponin HS Sent. sm5 02:29 XRAY Chest (1 view) In Process Unspecified. EDMS 03:54 Patient has correct armband on for positive identification. Bed in low position. Call sm5 light in reach. Side rails up X2. bank compliance officer on. Pulse ox on. NIBP on. 04:06 initiated a transfer with Aura Tomas from [facility]. mw2 04:19 [facility] transfer canceled due to the patient not wanting to go to [facility].mw2 04:31 initiated a transfer with Latanya Castillo from [facility] Transfer Center. mw2 04:50 administrative approval given by Latanya Jonathan/ patient has been accepted to [address] 9 B 932/ Dr. Macias accepted the patient in transfer/report to be called to [phone]. 06:41 No provider procedures requiring assistance completed. Patient transferred, IV remains sm5 in place. Administered Medications: 02:44 Drug: Lasix (furosemide) 40 mg Route: IVP; Site: right antecubital; sm5 03:53 Follow up: Response: No adverse reaction sm5 02:44 Drug: Lisinopril 20 mg Route: PO; sm5 03:53 Follow up: Response: No adverse reaction sm5 02:44 Drug: Metoprolol TARTRATE 50 mg Route: PO; sm5 03:53 Follow up: Response: No adverse reaction sm5 Outcome: 05:29 ER care complete, transfer ordered by . kdr 06:41 Transferred to [facility], Transfer form completed. X-rays sent 5 w/ patient. 06:41 Condition: stable 06:41 Instructed on the need for transfer. 06:41 Patient left the ED. 5 Signatures: Dispatcher [employer] EDMS Álvaro Fields MD MD kdr Pena, Laura RN RN lp1 Jagdish De La Garza mw2 Toma Mathew RN RN sm5 Katherine Herrera Corrections: (The following items were deleted from the chart) 03:55 03:54 Respiratory: Reports shortness of breath Onset: The symptoms/episode 5 began/occurred 5
--- NOTE | 2021-08-17 05:29 | EDPHYS ---
Physician Documentation [facility] Name: Ezequiel Padron Age: 36 yrs Sex: Male : 1985 Arrival Date: 08/17/2021 Time: 00:58 Bed 15 Private MD: ED Physician Álvaro Fields HPI: 08/17 05:29 This 36 yrs old Black Male presents to ER via Ambulatory with complaints of High Blood kdr Pressure, Shortness Of Breath. 05:29 The patient has elevated blood pressure and discovered this at home. Onset: The kdr symptoms/episode began/occurred at an unknown time. Longstanding. Modifying factors: The symptoms are aggravated by Patient has been out of his medications for some time.. Associated signs and symptoms: Pertinent positives: dyspnea, nausea, weakness. Severity of symptoms: At its worst the blood pressure was mild, in the emergency department the blood pressure is unchanged. The patient has experienced similar episodes in the past, chronically. The patient has not recently seen a physician. Historical: - Allergies: 01:10 Morphine; lp1 01:10 HTN medication; lp1 - Home Meds: 01:10 Lasix 40 mg Oral tab 1 tab once daily [Active]; lisinopril 10 mg Oral tab 1 tab twice a lp1 day [Active]; metoprolol tartrate 100 mg Oral tab 1 tab once daily [Active]; - PMHx: 01:10 CHF; Hypertension; lp1 - PSHx: 01:10 Leg sx; lp1 - Immunization history:: Adult Immunizations up to date, Client reports receiving the 2nd dose of the Covid vaccine. - Social history:: Smoking status: Patient denies any tobacco usage or history of. ROS: 05:29 Constitutional: Negative for fever, chills, and weight loss, Eyes: Negative for injury, kdr pain, redness, and discharge, ENT: Negative for injury, pain, and discharge, Neck: Negative for injury, pain, and swelling, Cardiovascular: Negative for chest pain, palpitations, and edema, Abdomen/GI: Negative for abdominal pain, nausea, vomiting, diarrhea, and constipation, Back: Negative for injury and pain, MS/Extremity: Negative for injury and deformity, Skin: Negative for injury, rash, and discoloration, Neuro: Negative for headache, weakness, numbness, tingling, and seizure activity. Psych: Negative for depression, anxiety, suicide ideation, homicidal ideation, and hallucinations, Allergy/Immunology: Negative for hives, rash, and allergies, Endocrine: Negative for neck swelling, polydipsia, polyuria, polyphagia, and marked weight changes, Hematologic/Lymphatic: Negative for swollen nodes, abnormal bleeding, and unusual bruising. 05:29 Respiratory: Positive for dyspnea on exertion, shortness of breath, Negative for hemoptysis, orthopnea, pleurisy, acute changes. Exam: 05:29 Constitutional: This is a well developed, well nourished patient who is awake, alert, kdr and in no acute distress. Head/Face: Normocephalic, atraumatic. Eyes: Pupils equal round and reactive to light, extra-ocular motions intact. Lids and lashes normal. Conjunctiva and sclera are non-icteric and not injected. Cornea within normal limits. Periorbital areas with no swelling, redness, or edema. Neck: Trachea midline, no thyromegaly or masses palpated, and no cervical lymphadenopathy. Supple, full range of motion without nuchal rigidity, or vertebral point tenderness. No Meningismus. Chest/axilla: Normal chest wall appearance and motion. Nontender with no deformity. No lesions are appreciated. Cardiovascular: Regular rate and rhythm with a normal S1 and S2. No gallops, murmurs, or rubs. Normal PMI, no JVD. No pulse deficits. Respiratory: Lungs have equal breath sounds bilaterally, clear to auscultation and percussion. No rales, rhonchi or wheezes noted. No increased work of breathing, no retractions or nasal flaring. Abdomen/GI: Soft, non-tender, with normal bowel sounds. No distension or tympany. No guarding or rebound. No evidence of tenderness throughout. Back: No spinal tenderness. No costovertebral tenderness. Full range of motion. Skin: Warm, dry with normal turgor. Normal color with no rashes, no lesions, and no evidence of cellulitis. MS/ Extremity: Pulses equal, no cyanosis. Neurovascular intact. Full, normal range of motion. Neuro: Awake and alert, GCS 15, oriented to person, place, time, and situation. Cranial nerves II-XII grossly intact. Motor strength 5/5 in all extremities. Sensory grossly intact. Cerebellar exam normal. Normal gait. Psych: Awake, alert, with orientation to person, place and time. Behavior, mood, and affect are within normal limits. Vital Signs: 01:11 BP 177 / 134 RA; Pulse 79; Resp 20; Temp 99(TE); Pulse Ox 100% on R/A; Weight 104.33 kg lp1 (R); Height 6 ft. 0 in. (182.88 cm); Pain 0/10; 01:14 BP 172 / 129 LA; lp1 03:54 BP 174 / 135; Pulse 84; Resp 12; Pulse Ox 100% on R/A; sm5 05:13 BP 165 / 109; Pulse 81; Resp 22; Pulse Ox 100% on R/A; sm5 06:39 BP 161 / 128; Pulse 80; Resp 19; Pulse Ox 100% on R/A; sm5 01:11 Body Mass Index 31.19 (104.33 kg, 182.88 cm) lp1 MDM: 05:29 Patient medically screened. kdr 05:29 Data reviewed: vital signs, nurses notes, lab test result(s), radiologic studies. kdr Counseling: I had a detailed discussion with the patient and/or guardian regarding: the historical points, exam findings, and any diagnostic results supporting the discharge/admit diagnosis, lab results, radiology results, the need to transfer to another facility. 08/17 01:48 Order name: Basic Metabolic Panel; Complete Time: 03:00 kdr 08/17 01:48 Order name: CBC with Diff; Complete Time: 03:00 kdr 08/17 01:48 Order name: Troponin HS; Complete Time: 03:00 kdr 08/17 01:48 Order name: XRAY Chest (1 view) kdr 08/17 03:38 Order name: BNP; Complete Time: 04:11 la1 08/17 03:41 Order name: COVID 19 CPL (Document "Date of Onset" if Symptomatic) vc1 08/17 01:48 Order name: EKG; Complete Time: 01:49 kdr 08/17 01:48 Order name: Cardiac monitoring; Complete Time: 02:05 kdr 08/17 01:48 Order name: EKG - Nurse/Tech; Complete Time: 02:05 kdr 08/17 01:48 Order name: IV Saline Lock; Complete Time: 02:05 kdr 08/17 01:48 Order name: Labs collected and sent; Complete Time: 02:05 kdr 08/17 01:48 Order name: O2 Per Protocol; Complete Time: 02:05 kdr 08/17 01:48 Order name: O2 Sat Monitoring; Complete Time: 02:05 kdr Administered Medications: 02:44 Drug: Lasix (furosemide) 40 mg Route: IVP; Site: right antecubital; sm5 03:53 Follow up: Response: No adverse reaction sm5 02:44 Drug: Lisinopril 20 mg Route: PO; sm5 03:53 Follow up: Response: No adverse reaction sm5 02:44 Drug: Metoprolol TARTRATE 50 mg Route: PO; sm5 03:53 Follow up: Response: No adverse reaction sm5 Disposition Summary: 08/17/21 05:29 Transfer Ordered Transfer Location: [facility] kdr Reason: Higher level of care kdr Condition: Fair kdr Problem: an acute exacerbation kdr Symptoms: have improved kdr Accepting Physician: Colleen(08/17/21 06:41) sm5 Diagnosis - Unspecified combined systolic (congestive) and diastolic (congestive) heart failure kdr - Hypertensive heart disease with heart failure kdr Forms: - Medication Reconciliation Form kdr - SBAR form kdr Signatures: Dispatcher [employer] EDÁlvaro Carranza MD MD kdr Lashae Chandler RN RN lp1 Connor Naidu, [facility] RN RN 5 Corrections: (The following items were deleted from the chart) 05:34 05:29 [facility] kdr kdr 06:41 05:34 Macias kdr 5
[2021-08-17 10:49] VITALS: TEMP 99; O2SAT 100
[2021-08-17 10:55] VITALS: BP 161/128
--- NOTE | 2021-08-17 16:13 | RAD REPORT ---
EXAM DESCRIPTION: RAD - Chest Single View - 08/17/2021 2:27 am CLINICAL HISTORY: 36 years, Male, SOB COMPARISON: None. FINDINGS: Single view of the chest was obtained portable. No prior films are available for compariso n. The cardiomediastinal silhouette demonstrate to be unremarkable. The heart is in the upper nor mal size perhaps related to technique. Costophrenic angles are sharp. No areas of consolidation or masses are seen. The rest of the soft tissue and bony structures demonstrate to be unremarkable. IMPRESSION: No acute cardiopulmonary disease. Electronically signed by: Luis M Newberry MD 08/17/2021 2:39 AM CDT Due to temporary technical issues with the PACS/Fluency reporting system, reports are being signed by the in house radiologists without review as a courtesy to insure prompt reporting. The interpreting radiologist is fully responsible for the content of the report.
== END 2021-08-17 06:41 | disposition short-term general hospital (02) ==
LOC: ER 00:52
DX: I11.0 Hypertensive heart disease with heart failure (principal); I50.40 Unspecified combined systolic (congestive) and diastolic (congestive) heart failure; I10 Essential (primary) hypertension; Z88.5 Allergy status to narcotic agent; Z88.8 Allergy status to other drugs, medicaments and biological substances
CPT/HCPCS: 36415; 71045; 80048; 83880; 84484; 85025; 93005; 96374; 99285; J1940; U0002

== ENCOUNTER 2021-09-26 19:55 | Emergency (ER) | payer SELFPAY ==
[2021-09-26] MEDS ORDERED: HYDROCODONE/APAP 10/325 TAB ONE (21:16)
[2021-09-26] MEDS ORDERED: dexAMETHasone 10 MG/ML VIAL ONE (21:17)
[2021-09-26] MEDS ORDERED: KETOROLAC 30 MG/ML INJ ONE (21:17)
--- NOTE | 2021-09-26 21:50 | ER ---
Nurse's Notes [facility] Name: Ezequiel Padron Age: 36 yrs Sex: Male : 1985 Arrival Date: 09/26/2021 Time: 19:57 Bed 10 Private MD: Diagnosis: Pain in right foot Presentation: 09/26 20:35 Chief complaint: Patient states: "I woke up yesterday and my right foot started really as6 hurting and hasn't stopped". Coronavirus screen: At this time, the client does not indicate any symptoms associated with coronavirus-19. Ebola Screen: No symptoms or risks identified at this time. Initial Sepsis Screen: Does the patient meet any 2 criteria? No. Patient's initial sepsis screen is negative. Does the patient have a suspected source of infection? No. Patient's initial sepsis screen is negative. Risk Assessment: Do you want to hurt yourself or someone else? Patient reports no desire to harm self or others. Onset of symptoms was September 25, 2021. 20:35 Method Of Arrival: Wheelchair as6 20:35 Acuity: HERMELINDA 3 as6 Triage Assessment: 20:40 General: Appears in no apparent distress. Behavior is calm, cooperative. Pain: as6 Complains of pain in right foot. Historical: - Allergies: 20:37 Morphine; as6 - Home Meds: 20:37 lisinopril 10 mg Oral tab 1 tab twice a day [Active]; carvedilol oral [Active]; Lasix as6 40 mg Oral tab 1 tab once daily [Active]; atorvastatin oral [Active]; Aspirin Oral [Active]; Spironolactone Oral [Active]; - PMHx: 20:37 Hypertension; CHF; as6 - PSHx: 20:37 Leg sx; as6 - Immunization history:: Client reports receiving the 2nd dose of the Covid vaccine, [employer]. - Social history:: Smoking status: Patient denies any tobacco usage or history of. Screenin:00 Abuse screen: Denies threats or abuse. Nutritional screening: No deficits noted. jb4 Tuberculosis screening: No symptoms or risk factors identified. Fall Risk None identified. Assessment: 21:00 General: Appears in no apparent distress. uncomfortable, Behavior is calm, cooperative, jb4 appropriate for age. Pain: Complains of pain in right foot Pain does not radiate. Pain currently is 5 out of 10 on a pain scale. Neuro: Level of Consciousness is awake, alert, obeys commands, Oriented to person, place, time, situation. Cardiovascular: Patient's skin is warm and dry. Respiratory: Airway is patent Respiratory effort is even, unlabored, Respiratory pattern is regular, symmetrical. GI: No signs and/or symptoms were reported involving the gastrointestinal system. : No signs and/or symptoms were reported regarding the genitourinary system. EENT: No signs and/or symptoms were reported regarding the EENT system. Derm: Skin is intact, Skin is pink, warm \\T\\ dry. Musculoskeletal: Circulation, motion, and sensation intact. Range of motion: intact in all extremities. 22:23 Reassessment: Patient appears in no apparent distress at this time. Patient and/or jb4 family updated on plan of care and expected duration. Pain level reassessed. Patient is alert, oriented x 3, equal unlabored respirations, skin warm/dry/pink. Vital Signs: 20:35 BP 182 / 133; Pulse 98; Resp 18 S; Temp 98.6(O); Pulse Ox 100% on R/A; Weight 104.33 kg as6 (R); Height 6 ft. (182.88 cm) (R); Pain 5/10; 20:35 Body Mass Index 31.19 (104.33 kg, 182.88 cm) as6 ED Course: 19:57 Patient arrived in ED. bp1 20:37 Triage completed. as6 20:40 Arm band placed on. as6 20:47 Fly Matthews NP is PHCP. pm1 20:47 Álvaro Fields MD is Attending Physician. pm1 21:00 Patient has correct armband on for positive identification. Bed in low position. Call jb4 light in reach. Side rails up X 1. 21:06 Taisha Yu is Primary Nurse. tw5 21:07 Candelario Caraballo, SAMANTHA is Primary Nurse. jb4 22:23 No provider procedures requiring assistance completed. Patient did not have IV access jb4 during this emergency room visit. Administered Medications: 21:15 Drug: [place] (HYDROcodone-acetaminophen) 10 mg-325 mg 1 tabs Route: PO; jb4 22:21 Follow up: Response: No adverse reaction; Marked relief of symptoms jb4 21:25 Drug: Ketorolac 60 mg Route: IM; Site: right gluteus; jb4 22:21 Follow up: Response: No adverse reaction; Marked relief of symptoms jb4 21:26 Drug: Decadron (dexamethasone) 10 mg Route: IM; Site: right deltoid; jb4 22:21 Follow up: Response: No adverse reaction; Marked relief of symptoms jb4 Medication: 22:21 VIS not applicable for this client. jb4 Outcome: 21:49 Discharge ordered by . pm1 22:23 Discharged to home ambulatory. jb4 22:23 Condition: stable 22:23 Discharge instructions given to patient, Instructed on discharge instructions, follow up and referral plans. medication usage, Demonstrated understanding of instructions, follow-up care, medications, Prescriptions given X 2. 22:24 Patient left the ED. jb4 Signatures: Fly Matthews, YVONNE [employer] MACHINE OPERATOR pm1 Candelario Caraballo RN RN jb4 Kendra Rob Tiffany tw5 Rich Márquez RN RN as6 Corrections: (The following items were deleted from the chart) 20:40 20:35 Acuity: HERMELINDA 4 as6 as6 20:40 20:37 Allergies: HTN medication; as6 as6 22:23 22:21 General: Appears in no apparent distress. uncomfortable, Behavior is calm, jb4 cooperative, appropriate for age, jb4 22:23 22:21 Pain: Complains of pain in right foot Pain does not radiate. Pain currently is 5 jb4 out of 10 on a pain scale. jb4 22:23 22:21 Neuro: Level of Consciousness is awake, alert, obeys commands, Oriented to jb4 person, place, time, situation, jb4 22:23 22:21 Cardiovascular: Patient's skin is warm and dry. jb4 jb4 22:23 22:21 Respiratory: Airway is patent Respiratory effort is even, unlabored, Respiratory jb4 pattern is regular, symmetrical, jb4 22:23 22:21 : No signs and/or symptoms were reported regarding the genitourinary system. [id number] 22:23 22:21 GI: No signs and/or symptoms were reported involving the gastrointestinal system. jb4 jb4 22:23 22:21 EENT: No signs and/or symptoms were reported regarding the EENT system. jb4 jb4 : 22:21 Derm: Skin is intact, Skin is pink, warm \\T\\ dry. jb4 jb4 22:21 Musculoskeletal: Circulation, motion, and sensation intact. Range of motion: jb4 intact in all extremities, jb4
--- NOTE | 2021-09-26 21:50 | EDPHYS ---
Physician Documentation [facility] Name: Ezequiel Padron Age: 36 yrs Sex: Male : 1985 Arrival Date: 09/26/2021 Time: 19:57 Bed 10 Private MD: ED Physician Álvaro Fields HPI: 09/26 21:04 This 36 yrs old Black Male presents to ER via Wheelchair with complaints of Foot Pain. pm1 21:04 The patient presents with pain, that is acute, swelling. The complaints affect the pm1 dorsum of right foot. Context: The problem was sustained at home, resulted from Possibly after consumption of alcohol, the patient can partially bear weight, the patient is able to ambulate, with moderate difficulty, Problem is a result from a previous injury: No. Onset: The symptoms/episode began/occurred yesterday. Modifying factors: The symptoms are alleviated by elevating leg, the symptoms are aggravated by weight bearing. Associated signs and symptoms: Pertinent negatives fever. Treatment prior to arrival includes: no previous treatment. Severity of symptoms: in the emergency department the symptoms are actually worse. The patient has experienced a previous episode, but today's symptoms are worse, and the symptoms today are exactly the same. The patient has not recently seen a physician. Historical: - Allergies: 20:37 Morphine; as6 - Home Meds: 20:37 lisinopril 10 mg Oral tab 1 tab twice a day [Active]; carvedilol oral [Active]; Lasix as6 40 mg Oral tab 1 tab once daily [Active]; atorvastatin oral [Active]; Aspirin Oral [Active]; Spironolactone Oral [Active]; - PMHx: 20:37 Hypertension; CHF; as6 - PSHx: 20:37 Leg sx; as6 - Immunization history:: Client reports receiving the 2nd dose of the Covid vaccine, [employer]. - Social history:: Smoking status: Patient denies any tobacco usage or history of. ROS: 21:04 Constitutional: Negative for fever, chills, and weight loss, Cardiovascular: Negative pm1 for chest pain, palpitations, and edema, Respiratory: Negative for shortness of breath, cough, wheezing, and pleuritic chest pain. 21:04 Skin: Negative for injury, rash, and discoloration, Neuro: Negative for headache, weakness, numbness, tingling, and seizure. 21:04 MS/extremity: Positive for pain, of the dorsum of right foot and right great toe. 21:04 All other systems are negative. Exam: 21:04 Constitutional: This is a well developed, well nourished patient who is awake, alert, pm1 and in no acute distress. Head/Face: Normocephalic, atraumatic. 21:04 Back: No spinal tenderness. No costovertebral tenderness. Full range of motion. 21:04 Skin: Warm, dry with normal turgor. Normal color with no rashes, no lesions, and no evidence of cellulitis. 21:04 Cardiovascular: Exam negative for acute changes, Rate: normal, Rhythm: regular, Pulses: no pulse deficits are appreciated. 21:04 Respiratory: Exam negative for acute changes, respiratory distress, shortness of breath. 21:04 Abdomen/GI: Exam negative for acute changes, Inspection: abdomen appears normal, Palpation: abdomen is soft and non-tender. 21:04 Musculoskeletal/extremity: Extremities: grossly normal except: noted in the right first toe and dorsum of right foot: swelling, tenderness. 21:04 Neuro: Exam negative for acute changes, Orientation: is normal, Mentation: is normal, Motor: is normal, moves all fours. Vital Signs: 20:35 BP 182 / 133; Pulse 98; Resp 18 S; Temp 98.6(O); Pulse Ox 100% on R/A; Weight 104.33 kg as6 (R); Height 6 ft. (182.88 cm) (R); Pain 5/10; 20:35 Body Mass Index 31.19 (104.33 kg, 182.88 cm) as6 MDM: 21:01 Patient medically screened. pm1 21:07 Refusal of service: The patient/guardian displays adequate decision making capability pm1 and despite a detailed discussion of alternatives, benefits, risks, and consequences refuses: all lab tests, all X-rays, Patient just wants pain medications for what he feels is new onset of gout. Patient does not want xray or labs to confirm or rule out differentials. 21:49 Data reviewed: vital signs. Data interpreted: Pulse oximetry: on room air is 100 %. pm1 Interpretation: normal. Counseling: I had a detailed discussion with the patient and/or guardian regarding: the historical points, exam findings, and any diagnostic results supporting the discharge/admit diagnosis, the need for outpatient follow up, a family practitioner, to return to the emergency department if symptoms worsen or persist or if there are any questions or concerns that arise at home. 09/26 21:09 Order name: Crutches; Complete Time: 22:21 pm1 Administered Medications: 21:15 Drug: [place] (HYDROcodone-acetaminophen) 10 mg-325 mg 1 tabs Route: PO; jb4 22:21 Follow up: Response: No adverse reaction; Marked relief of symptoms jb4 21:25 Drug: Ketorolac 60 mg Route: IM; Site: right gluteus; jb4 22:21 Follow up: Response: No adverse reaction; Marked relief of symptoms jb4 21:26 Drug: Decadron (dexamethasone) 10 mg Route: IM; Site: right deltoid; jb4 22:21 Follow up: Response: No adverse reaction; Marked relief of symptoms jb4 Disposition Summary: 09/26/21 21:49 Discharge Ordered Location: Home pm1 Problem: new pm1 Symptoms: have improved pm1 Condition: Stable pm1 Diagnosis - Pain in right foot pm1 Followup: pm1 - With: Emergency Department - When: As needed - Reason: Worsening of condition Followup: pm1 - With: Private Physician - When: 2 - 3 days - Reason: Recheck today's complaints, Continuance of care, Re-evaluation by your physician Discharge Instructions: - Discharge Summary Sheet pm1 - Crutch Use, Adult pm1 - Gout pm1 Forms: - Medication Reconciliation Form pm1 - Thank You Letter pm1 - Antibiotic Education pm1 - Prescription Opioid Use pm1 Prescriptions: - Medrol ([place]) 4 mg Oral Tablets, Dose Pack - take 1 tablet by ORAL route as directed - follow package instructions; 1 pm1 packet; Refills: 0, Product Selection Permitted - Tylenol-Codeine #3 300 mg-30 mg Oral - take 2 tablet by ORAL route every 6 hours As needed; 20 tablet; Refills: 0, pm1 Product Selection Permitted Addendum: 09/28/2021 04:18 Co-signature as Attending Physician, Álvaro Fields MD I agree with the assessment and k dr plan of care. Signatures: Álvaro Fields MD MD [facility] Fly Matthews NP MINE CAR REPAIRER pm1 Candelario Caraballo, RN RN jb4 Rich Márquez RN RN as6 Corrections: (The following items were deleted from the chart) 09/26 20:40 20:37 Allergies: HTN medication; as6 as6
[2021-09-26 22:44] VITALS: BP 182/133; TEMP 98.6; O2SAT 100
== END 2021-09-26 22:24 | disposition home or self-care (01) ==
LOC: ER 19:55
DX: M79.671 Pain in right foot (principal); I50.9 Heart failure, unspecified; I10 Essential (primary) hypertension; Z79.82 Long term (current) use of aspirin; Z88.5 Allergy status to narcotic agent
CPT/HCPCS: 96372; 99283; J1100

== ENCOUNTER 2021-11-01 16:10 | Emergency (ER) | payer SELFPAY ==
[2021-11-01] MEDS ORDERED: dexAMETHasone 10 MG/ML VIAL ONE (17:46)
[2021-11-01] MEDS ORDERED: KETOROLAC 30 MG/ML INJ ONE (17:46)
[2021-11-01] MEDS ORDERED: HYDROCODONE/APAP 10/325 TAB ONE (17:46)
[2021-11-01] MEDS ORDERED: cloNIDine HCL 0.1 MG TAB ONE (17:56)
--- NOTE | 2021-11-01 18:01 | ER ---
Nurse's Notes [facility] Name: Ezequiel Padron Age: 36 yrs Sex: Male : 1985 Arrival Date: 11/01/2021 Time: 16:18 Bed 23 Private MD: Diagnosis: Gout, unspecified Presentation: 11/01 16:37 Chief complaint: Patient states: right foot pain since yesterday, feels like a gout iw flare up, ran out of his meds a few days ago. Coronavirus screen: At this time, the client does not indicate any symptoms associated with coronavirus-19. Ebola Screen: Patient negative for fever greater than or equal to 101.5 degrees Fahrenheit, and additional compatible Ebola Virus Disease symptoms Patient denies exposure to infectious person. Patient denies travel to an Ebola-affected area in the 21 days before illness onset. No symptoms or risks identified at this time. Initial Sepsis Screen: Does the patient meet any 2 criteria? No. Patient's initial sepsis screen is negative. Does the patient have a suspected source of infection? No. Patient's initial sepsis screen is negative. Risk Assessment: Do you want to hurt yourself or someone else? Patient reports no desire to harm self or others. Onset of symptoms was October 31, 2021. 16:37 Method Of Arrival: Wheelchair iw 16:37 Acuity: HERMELINDA 4 iw Historical: - Allergies: 16:39 Morphine; iw - PMHx: 16:39 CHF; Hypertension; Gout; iw - PSHx: 16:39 Leg sx; iw - Immunization history:: Client reports receiving the 2nd dose of the Covid vaccine. - Social history:: Smoking status: Patient denies any tobacco usage or history of. Vital Signs: 16:37 BP 209 / 110; Pulse 87; Resp 16; Temp 99.0; Pulse Ox 97% ; Weight 99.79 kg; Height 6 iw ft. 0 in. (182.88 cm); Pain 6/10; 16:37 Body Mass Index 29.84 (99.79 kg, 182.88 cm) ED Course: 16:18 Patient arrived in ED. as 16:33 Lg Ruiz PA is PHCP. [facility] 16:33 Baldemar Harden MD is Attending Physician. [facility] 16:39 Triage completed. iw 16:39 Arm band placed on. iw 17:22 Maxine Cooper, RN is Primary Nurse. iw 18:00 Hesham Segura DPM is Referral Physician. apoorva Administered Medications: 17:46 Drug: [place] (HYDROcodone-acetaminophen) 10 mg-325 mg 1 tabs Route: PO; iw 17:46 Drug: Ketorolac 30 mg Route: IM; Site: left deltoid; iw 17:46 Drug: Decadron (dexamethasone) 10 mg Route: IM; Site: right deltoid; iw 17:52 Drug: cloNIDine 0.1 mg Route: PO; iw Outcome: 18:00 Discharge ordered by . apoorva 18:23 Patient left the ED. iw Signatures: Lg Ruiz PA PA jmm Martinez, Amelia as Maxine Cooper, RN RN iw Corrections: (The following items were deleted from the chart) 16:40 16:37 Pulse 87bpm; Resp 16bpm; Pulse Ox 97%; Temp 99.0F; 99.79 kg; Height 6 ft. 0 in.; iw BMI: 29.8; Pain 6/10; iw
--- NOTE | 2021-11-01 18:01 | EDPHYS ---
Physician Documentation [facility] Name: Ezequiel Padron Age: 36 yrs Sex: Male : 1985 Arrival Date: 11/01/2021 Time: 16:18 Bed 23 Private MD: ED Physician Baldemar Harden HPI: 11/01 16:39 This 36 yrs old Black Male presents to ER via Wheelchair with complaints of Foot Pain. jmm 16:39 The patient presents with pain. Onset: The symptoms/episode began/occurred gradually, 3 jmm day(s) ago. Modifying factors: The symptoms are alleviated by nothing. the symptoms are aggravated by nothing. Associated signs and symptoms: Pertinent negatives fever. This is a 36 year old male with a history of chf, htn gout that presents to the ED with complaints of right foot pain beginning approx 3 days ago. Had a similar gout flare approx 1 month ago. . Historical: - Allergies: 16:39 Morphine; iw - PMHx: 16:39 CHF; Hypertension; Gout; iw - PSHx: 16:39 Leg sx; iw - Immunization history:: Client reports receiving the 2nd dose of the Covid vaccine. - Social history:: Smoking status: Patient denies any tobacco usage or history of. ROS: 16:39 Constitutional: Negative for fever, chills, and weight loss, Cardiovascular: Negative jmm for chest pain, palpitations, and edema, Respiratory: Negative for shortness of breath, cough, wheezing, and pleuritic chest pain. 16:39 MS/extremity: Positive for pain, swelling. 16:39 All other systems are negative. Exam: 16:39 Constitutional: This is a well developed, well nourished patient who is awake, alert, jmm and in no acute distress. Head/Face: atraumatic. Eyes: EOMI, no conjunctival erythema appreciated ENT: Moist Mucus Membranes Neck: Trachea midline, Supple Chest/axilla: Normal chest wall appearance and motion. Cardiovascular: Regular rate and rhythm. No edema appreciated Respiratory: Normal respirations, no respiratory distress appreciated Abdomen/GI: Non distended, soft Back: Normal ROM Skin: General appearance color normal 16:39 Musculoskeletal/extremity: swelling noted to the right foot, full dorsalis pulse, compartments soft, NVI. 16:39 Skin: Appearance: Color: normal in color. 16:39 Neuro: Orientation: is normal, Mentation: is normal, Memory: is normal. 16:39 Psych: Behavior/mood is pleasant, cooperative. Vital Signs: 16:37 BP 209 / 110; Pulse 87; Resp 16; Temp 99.0; Pulse Ox 97% ; Weight 99.79 kg; Height 6 iw ft. 0 in. (182.88 cm); Pain 6/10; 16:37 Body Mass Index 29.84 (99.79 kg, 182.88 cm) iw MDM: 16:39 Patient medically screened. bernabe 17:59 Data reviewed: vital signs, nurses notes. Counseling: I had a detailed discussion with apoorva the patient and/or guardian regarding: the historical points, exam findings, and any diagnostic results supporting the discharge/admit diagnosis, the need for outpatient follow up, to return to the emergency department if symptoms worsen or persist or if there are any questions or concerns that arise at home. ED course: PE concerning for gout flare. Advised to follow up with podiatry. Otherwise given strict return precautions. patient understood and agrees with the plan of care. . Administered Medications: 17:46 Drug: [place] (HYDROcodone-acetaminophen) 10 mg-325 mg 1 tabs Route: PO; iw 17:46 Drug: Ketorolac 30 mg Route: IM; Site: left deltoid; iw 17:46 Drug: Decadron (dexamethasone) 10 mg Route: IM; Site: right deltoid; iw 17:52 Drug: cloNIDine 0.1 mg Route: PO; iw Disposition Summary: 11/01/21 18:00 Discharge Ordered Location: Home [facility] Condition: Stable [facility] Diagnosis - Gout, unspecified [facility] Followup: [facility] - With: Hesham Segura DPM - When: 2 - 3 days - Reason: Recheck today's complaints, Continuance of care, Re-evaluation by your physician Discharge Instructions: - Discharge Summary Sheet [facility] - Gout [facility] - Low-Purine Eating Plan [facility] Forms: - Medication Reconciliation Form [facility] - Thank You Letter [facility] - Antibiotic Education [facility] - Prescription Opioid Use [facility] Prescriptions: - indomethacin 50 mg Oral capsule - take 1 capsule by ORAL route 3 times per day with food; 30 capsule; Refills: 0, [facility] Product Selection Permitted - Tylenol-Codeine #3 300 mg-30 mg Oral - take 1 tablet by ORAL route every 4-6 hours As needed; 20 tablet; Refills: 0, jmm Product Selection Permitted Signatures: Baldemar Harden MD MD cha Mickail, Joel, PA PA jmm Williams, Irene, RN RN iw
[2021-11-01 18:30] VITALS: BP 209/110; TEMP 99; O2SAT 97
== END 2021-11-01 18:23 | disposition home or self-care (01) ==
LOC: ER 16:10
DX: M10.9 Gout, unspecified (principal); I10 Essential (primary) hypertension; Z88.5 Allergy status to narcotic agent
CPT/HCPCS: J1100

== ENCOUNTER 2021-12-05 19:26 | Emergency (ER) | payer SELFPAY ==
[2021-12-05] MEDS ORDERED: HYDROCODONE/APAP 10/325 TAB ONE (20:10)
--- NOTE | 2021-12-05 20:55 | RAD REPORT ---
EXAM DESCRIPTION: RAD - Foot Left 3 View - 12/05/2021 8:46 pm CLINICAL HISTORY: foot swelling, foot pain COMPARISON: No comparisons FINDINGS: No acute fracture or dislocation is seen. Small plantar calcaneal spur.
[2021-12-05] MEDS ORDERED: KETOROLAC 30 MG/ML INJ ONE (21:32)
[2021-12-06 04:13] VITALS: BP 217/151; TEMP 98.4; O2SAT 100
--- NOTE | 2021-12-06 10:31 | EDPHYS ---
Physician Documentation [facility] Name: Ezequiel Padron Age: 36 yrs Sex: Male : 1985 Arrival Date: 12/05/2021 Time: 19:28 Bed 11 Private MD: ED Physician Kirby Cortes HPI: 12/05 19:40 This 36 yrs old Black Male presents to ER via Wheelchair with complaints of Foot Pain, rn Left foot swelling. 19:40 The patient presents with an injury, pain, that is acute. The complaints affect the rn left foot. Context: The problem was sustained at home, resulted from kicked himself in middle of night, the patient can fully bear weight, the patient is able to ambulate. Onset: The symptoms/episode began/occurred last night. Modifying factors: The symptoms are alleviated by elevation of extremity, the symptoms are aggravated by weight bearing, movement. Associated signs and symptoms: Pertinent positives: swelling, Pertinent negatives: fever, numbness, rash, warmth, weakness. Severity of symptoms: At their worst the symptoms were mild, in the emergency department the symptoms are unchanged. The patient has experienced similar episodes in the past. The patient has not recently seen a physician. Pt reports kicked himself in middle of night, has happened before, woke up and noticed swelling to foot. states has kicked himself before in middle of the night and had to come in. Also with hx of gout but states this feels different. Reports pain to dorsum of left foot, not at great toe.. Historical: - Allergies: 19:37 Morphine; ld1 - PMHx: 19:37 CHF; Gout; Hypertension; ld1 - PSHx: 19:37 Leg sx; ld1 - Immunization history:: Adult Immunizations up to date, Client reports receiving the 2nd dose of the Covid vaccine. - Social history:: Smoking status: Patient denies any tobacco usage or history of. Patient uses alcohol, occasionally. - Family history:: not pertinent. - Hospitalizations: : No recent hospitalization is reported. ROS: 19:40 Constitutional: Negative for fever, chills, and weight loss, Cardiovascular: Negative rn for chest pain, palpitations, and edema, Respiratory: Negative for shortness of breath, cough, wheezing, and pleuritic chest pain, Abdomen/GI: Negative for abdominal pain, nausea, vomiting, diarrhea, and constipation, Back: Negative for injury and pain, MS/Extremity: + left foot pain and swelling Skin: Negative for injury, rash, and discoloration, Neuro: Negative for headache, weakness, numbness, tingling, and seizure. Exam: 19:40 Constitutional: This is a well developed, well nourished patient who is awake, alert, rn and in no acute distress. Cardiovascular: Regular rate and rhythm. No pulse deficits. Respiratory: No increased work of breathing, no retractions or nasal flaring. Skin: Warm, dry with normal turgor. Normal color with no rashes, no lesions, and no evidence of cellulitis. MS/ Extremity: Pulses equal, no cyanosis. Neurovascular intact. Full, normal range of motion. Equal circumference. + mild swelling dorsum of left mid-foot, no open wounds, no warmth or fluctuance. No pain with movement of toes or great toe. Neuro: Awake and alert Vital Signs: 19:35 BP 217 / 151; Pulse 93; Resp 18; Temp 98.4(TE); Pulse Ox 100% on R/A; Weight 99.79 kg; ld1 Height 6 ft. 0 in. (182.88 cm); Pain 8/10; 19:35 Body Mass Index 29.84 (99.79 kg, 182.88 cm) ld1 MDM: 19:33 Patient medically screened. rn 21:16 Differential diagnosis: fracture, sprain, arthritis, gout. Data reviewed: vital signs, rn nurses notes, radiologic studies, plain films, and as a result, I will discharge patient. Counseling: I had a detailed discussion with the patient and/or guardian regarding: the historical points, exam findings, and any diagnostic results supporting the discharge/admit diagnosis, radiology results, the need for outpatient follow up, to return to the emergency department if symptoms worsen or persist or if there are any questions or concerns that arise at home. Response to treatment: the patient's symptoms have mildly improved after treatment, and as a result, I will discharge patient. Special discussion: I discussed with the patient/guardian in detail that at this point there is no indication for admission to the hospital. It is understood, however, that if the symptoms persist or worsen the patient needs to return immediately for re-evaluation. 12/05 20:12 Order name: Foot Left 3 View; Complete Time: 21:17 EDMS Administered Medications: 20:03 Drug: [place] (HYDROcodone-acetaminophen) 10 mg-325 mg 1 tabs Route: PO; ld1 21:27 Follow up: Response: No adverse reaction ld1 21:20 Drug: Ketorolac 15 mg Route: IM; Site: right deltoid; ld1 21:27 Follow up: Response: No adverse reaction ld1 Disposition Summary: 12/05/21 21:16 Discharge Ordered Location: Home rn Problem: new rn Symptoms: have improved rn Condition: Stable rn Diagnosis - Contusion of left foot rn - Pain in left foot rn Followup: rn - With: Private Physician - When: As needed - Reason: Recheck today's complaints, Re-evaluation by your physician Discharge Instructions: - Discharge Summary Sheet rn - Foot Contusion rn - Foot Pain rn Forms: - Medication Reconciliation Form rn - Thank You Letter rn - Antibiotic care nurse rn - Prescription Opioid Use rn Prescriptions: - Tramadol 50 mg Oral Tablet - take 1 tablet by ORAL route every 8 hours as needed; 9 tablet; Refills: 0, rn Product Selection Permitted Signatures: Dispatcher [employer] EDMS Kirby Cortes MD MD rn Cathy Loyola RN RN ld1
--- NOTE | 2021-12-06 10:31 | ER ---
Nurse's Notes [facility] Name: Ezequiel Padron Age: 36 yrs Sex: Male : 1985 Arrival Date: 12/05/2021 Time: 19:28 Bed 11 Private MD: Diagnosis: Contusion of left foot;Pain in left foot Presentation: 12/05 19:35 Chief complaint: Patient states: Left foot pain and swelling since last night. Pt ld1 reports "I know I kicked it last night but I think it is gout.". Coronavirus screen: At this time, the client does not indicate any symptoms associated with coronavirus-19. Ebola Screen: No symptoms or risks identified at this time. Initial Sepsis Screen: Does the patient meet any 2 criteria? No. Patient's initial sepsis screen is negative. Does the patient have a suspected source of infection? No. Patient's initial sepsis screen is negative. Risk Assessment: Do you want to hurt yourself or someone else? Patient reports no desire to harm self or others. Onset of symptoms was December 05, 2021. 19:35 Method Of Arrival: Wheelchair ld1 19:35 Acuity: HERMELINDA 3 ld1 Triage Assessment: 19:37 General: Appears in no apparent distress. uncomfortable, Behavior is calm, cooperative, ld1 appropriate for age. Pain: Complains of pain in left foot Pain does not radiate. Pain currently is 8 out of 10 on a pain scale. Quality of pain is described as throbbing. EENT: No signs and/or symptoms were reported regarding the EENT system. Neuro: Level of Consciousness is awake, alert, obeys commands, Oriented to person, place, time, situation, Appropriate for age. Cardiovascular: Capillary refill < 3 seconds Patient's skin is warm and dry. Respiratory: Airway is patent Respiratory effort is even, unlabored. GI: Abdomen is round non-distended. : No signs and/or symptoms were reported regarding the genitourinary system. Derm: No signs and/or symptoms reported regarding the dermatologic system. Musculoskeletal: No signs and/or symptoms reported regarding the musculoskeletal system. Historical: - Allergies: 19:37 Morphine; ld1 - PMHx: 19:37 CHF; Gout; Hypertension; ld1 - PSHx: 19:37 Leg sx; ld1 - Immunization history:: Adult Immunizations up to date, Client reports receiving the 2nd dose of the Covid vaccine. - Social history:: Smoking status: Patient denies any tobacco usage or history of. Patient uses alcohol, occasionally. - Family history:: not pertinent. - Hospitalizations: : No recent hospitalization is reported. Screenin:27 Abuse screen: Denies threats or abuse. Denies injuries from another. Nutritional ld1 screening: No deficits noted. Tuberculosis screening: No symptoms or risk factors identified. Fall Risk None identified. Vital Signs: 19:35 BP 217 / 151; Pulse 93; Resp 18; Temp 98.4(TE); Pulse Ox 100% on R/A; Weight 99.79 kg; ld1 Height 6 ft. 0 in. (182.88 cm); Pain 8/10; 19:35 Body Mass Index 29.84 (99.79 kg, 182.88 cm) ld1 ED Course: 19:28 Patient arrived in ED. bp1 19:32 Kirby Cortes MD is Attending Physician. rn 19:37 Triage completed. ld1 19:37 Arm band placed on right wrist. ld1 20:01 Cathy Loyola, SAMANTHA is Primary Nurse. ld1 20:48 Foot Left 3 View In Process Unspecified. EDMS 21:27 Patient has correct armband on for positive identification. Placed in gown. Bed in low ld1 position. Call light in reach. Side rails up X2. highway painter on. Pulse ox on. NIBP on. Door closed. Noise minimized. Warm blanket given. 21:27 No provider procedures requiring assistance completed. Patient did not have IV access ld1 during this emergency room visit. Administered Medications: 20:03 Drug: [place] (HYDROcodone-acetaminophen) 10 mg-325 mg 1 tabs Route: PO; ld1 21:27 Follow up: Response: No adverse reaction ld1 21:20 Drug: Ketorolac 15 mg Route: IM; Site: right deltoid; ld1 21:27 Follow up: Response: No adverse reaction ld1 Medication: 21:27 VIS not applicable for this client. ld1 Outcome: 21:16 Discharge ordered by . rn 21:27 Discharged to home ambulatory. ld1 21:27 Condition: stable 21:27 Discharge instructions given to patient, Instructed on discharge instructions, follow up and referral plans. medication usage, Demonstrated understanding of instructions, follow-up care, medications. 21:28 Patient left the ED. ld1 Signatures: Dispatcher [employer] EDMS Kirby Cortes MD MD rn [place]ia[place], Brittany bp1 Dibbern, Lauren, RN RN ld1 Corrections: (The following items were deleted from the chart) 19:39 19:35 Pulse 93bpm; Resp 18bpm; Pulse Ox 100% RA; Temp 98.4F Temporal; 99.79 kg; Height ld1 6 ft. 0 in.; BMI: 29.8; Pain 8/10; ld1
== END 2021-12-05 21:28 | disposition home or self-care (01) ==
LOC: ER 19:26
DX: S90.32XA Contusion of left foot, initial encounter (principal); I10 Essential (primary) hypertension; Z88.5 Allergy status to narcotic agent
CPT/HCPCS: 96372; 99284

== ENCOUNTER 2022-04-26 08:36 | Emergency (ER) | payer SELFPAY ==
[2022-04-26] MEDS ORDERED: KETOROLAC 30 MG/ML INJ ONE (09:08)
[2022-04-26] MEDS ORDERED: HYDROCODONE/APAP 10/325 TAB ONE (09:15)
--- NOTE | 2022-04-26 09:26 | EDPHYS ---
Physician Documentation [facility] Name: Ezequiel Padron Age: 37 yrs Sex: Male : 1985 Arrival Date: 04/26/2022 Time: 08:38 Bed 8 Private MD: ED Physician Fritz Woody HPI: 04/26 08:55 This 37 yrs old Black Male presents to ER via Ambulatory with complaints of Gout. [facility] 09:02 This is a 37 year old male with a history of chf, gout, htn that presents to the ED jm with complaints of pain to the right foot beginning approx 2 days ago. Patient has had similar episodes to the left foot when previously diagnosed with gout. Denies fever. . Historical: - Allergies: 08:51 Morphine; vg1 - Home Meds: 08:51 Metoprolol Tartrate Oral [Active]; Lisinopril Oral [Active]; atorvastatin [Active]; vg1 Furosemide Oral [Active]; - PMHx: 08:51 CHF; Gout; Hypertension; vg1 - PSHx: 08:51 Leg sx; vg1 - Immunization history:: Client reports receiving the 2nd dose of the Covid vaccine. - Social history:: Smoking status: Patient denies any tobacco usage or history of. ROS: 09:02 Constitutional: Negative for fever, chills, and weight loss, Cardiovascular: Negative jm for chest pain, palpitations, and edema, Respiratory: Negative for shortness of breath, cough, wheezing, and pleuritic chest pain. 09:02 MS/extremity: Positive for pain. 09:02 All other systems are negative. Exam: 09:02 Constitutional: This is a well developed, well nourished patient who is awake, alert, jmm and in no acute distress. Head/Face: atraumatic. Eyes: EOMI, no conjunctival erythema appreciated ENT: Moist Mucus Membranes Neck: Trachea midline, Supple Chest/axilla: Normal chest wall appearance and motion. Cardiovascular: Regular rate and rhythm. No edema appreciated Respiratory: Normal respirations, no respiratory distress appreciated Abdomen/GI: Non distended Back: Normal ROM Skin: General appearance color normal 09:02 Musculoskeletal/extremity: pain on palpation of the dorsal surface of the right foot, ful doralis pulse, compartments are soft, NVI. 09:02 Skin: Appearance: Color: normal in color. 09:02 Neuro: Motor: is normal. 09:02 Psych: Behavior/mood is pleasant, cooperative. Vital Signs: 08:49 BP 179 / 118; Pulse 86; Resp 17; Temp 98.3; Pulse Ox 99% ; Weight 104.33 kg; Height 6 vg1 ft. 0 in. (182.88 cm); Pain 8/10; 09:00 BP 169 / 127; Pulse 80; Resp 16 S; Pulse Ox 99% on R/A; aa5 09:45 BP 179 / 120; Pulse 80; Resp 16 S; Temp 98.0(TE); Pulse Ox 99% on R/A; aa5 08:49 Body Mass Index 31.19 (104.33 kg, 182.88 cm) vg1 09:45 PA notified of BP. 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 Pt educated about need to be consistent about taking antihypertensive medications, pt verbalized understanding. MDM: 08:55 Patient medically screened. jmm 09:04 Data reviewed: vital signs, nurses notes. Counseling: I had a detailed discussion with apoorva the patient and/or guardian regarding: the historical points, exam findings, and any diagnostic results supporting the discharge/admit diagnosis, the need for outpatient follow up, to return to the emergency department if symptoms worsen or persist or if there are any questions or concerns that arise at home. Administered Medications: 09:10 Drug: Ketorolac 30 mg Route: IM; Site: right gluteus; aa5 09:20 Follow up: Response: No adverse reaction aa5 09:18 Drug: [place] (HYDROcodone-acetaminophen) 10 mg-325 mg 1 tabs Route: PO; aa5 09:50 Follow up: Response: No adverse reaction aa5 Disposition: 10:19 Attestation: The patient's history, exam findings, diagnostics, and a summary of any [facility] interventions or procedures was reviewed in detail with Lg PEARCE. Disposition Summary: 04/26/22 09:25 Discharge Ordered Location: Home [facility] Condition: Stable jmm Diagnosis - Gout, unspecified jmm Followup: jmm - With: Private Physician - When: 2 - 3 days - Reason: Recheck today's complaints, Continuance of care, Re-evaluation by your physician Discharge Instructions: - Discharge Summary Sheet jmm - Gout екатеринаm - Low-Purine Eating Plan [facility] Forms: - Medication Reconciliation Form [facility] - Thank You Letter apoorva - Antibiotic Education [facility] - Prescription Opioid Use [facility] Prescriptions: - Diclofenac Sodium 75 mg Oral Tablet Sustained Release - take 1 tablet by ORAL route 2 times per day; 30 tablet; Refills: 0, Product [facility] Selection Permitted - Tylenol-Codeine #3 300 mg-30 mg Oral - take 1 tablet by ORAL route every 4-6 hours; 12 tablet; Refills: 0, Product [facility] Selection Permitted Signatures: Lg Ruiz PA PA jmm Calderon, Audri, RN RN aa5 Dari Stratton RN RN vg1 Fritz Woody MD MD [id number]
--- NOTE | 2022-04-26 09:26 | ER ---
Nurse's Notes [facility] Name: Ezequiel Padron Age: 37 yrs Sex: Male : 1985 Arrival Date: 04/26/2022 Time: 08:38 Bed 8 Private MD: Diagnosis: Gout, unspecified Presentation: 04/26 08:49 Chief complaint: Patient states: NIURKA foot pain; stated last weekend had a couple of vg1 beers and after noticed a gout flare up. Also stated has ran out of BP meds. Coronavirus screen: Vaccine status: Patient reports receiving the 2nd dose of the covid vaccine. Client denies travel out of the [place] in the last 14 days. Ebola Screen: Patient negative for fever greater than or equal to 101.5 degrees Fahrenheit, and additional compatible Ebola Virus Disease symptoms. Initial Sepsis Screen: Does the patient meet any 2 criteria? No. Patient's initial sepsis screen is negative. Does the patient have a suspected source of infection? No. Patient's initial sepsis screen is negative. Risk Assessment: Do you want to hurt yourself or someone else? Patient reports no desire to harm self or others. Onset of symptoms was April 23, 2022. 08:49 Method Of Arrival: Ambulatory vg1 08:49 Acuity: HERMELINDA 3 vg1 Triage Assessment: 08:51 General: Appears in no apparent distress. uncomfortable, Behavior is calm, cooperative. vg1 Pain: Complains of pain in right foot and left foot Pain currently is 8 out of 10 on a pain scale. Pain began 04/23. Musculoskeletal: Circulation, motion, and sensation intact. Historical: - Allergies: 08:51 Morphine; vg1 - Home Meds: 08:51 Metoprolol Tartrate Oral [Active]; Lisinopril Oral [Active]; atorvastatin [Active]; vg1 Furosemide Oral [Active]; - PMHx: 08:51 CHF; Gout; Hypertension; vg1 - PSHx: 08:51 Leg sx; vg1 - Immunization history:: Client reports receiving the 2nd dose of the Covid vaccine. - Social history:: Smoking status: Patient denies any tobacco usage or history of. Screenin:53 [facility] ED Fall Risk Assessment (Adult) History of falling in the last 3 months, vg1 including since admission No falls in past 3 months (0 pts) Confusion or Disorientation No (0 pts) Intoxicated or Sedated No (0 pts) Impaired Gait No (0 pts) Mobility Assist Device Used No (0 pt) Altered Elimination No (0 pt) Score/Fall Risk Level 0 - 2 = Low Risk Oriented to surroundings, Maintained a safe environment, Educated pt \\T\\ family on fall prevention, incl call for assistance when getting out of bed, Assessed \\T\\ reinforced patient's understanding of fall precautions. Abuse screen: Denies threats or abuse. Nutritional screening: No deficits noted. Tuberculosis screening: No symptoms or risk factors identified. Assessment: 09:00 General: Appears uncomfortable, Behavior is calm, cooperative. Pain: Complains of pain aa5 in left foot and right foot. Pain is greater to right foot Pain currently is 8 out of 10 on a pain scale. Quality of pain is described as tender, throbbing, Pain began 2-3 days ago. Is continuous. Neuro: Level of Consciousness is awake, alert, obeys commands, Oriented to person, place, time, situation. Cardiovascular: Heart tones S1 S2 present Rhythm is regular. Respiratory: Airway is patent Respiratory effort is even, unlabored, Respiratory pattern is regular, symmetrical. GI: No signs and/or symptoms were reported involving the gastrointestinal system. : No signs and/or symptoms were reported regarding the genitourinary system. EENT: No signs and/or symptoms were reported regarding the EENT system. Derm: Skin is pink, warm \\T\\ dry. Musculoskeletal: Redness noted to right foot, swelling noted to right foot. 09:50 General: Appears comfortable, Behavior is calm, cooperative. Pain: Current management aa5 is with medications, pt reports pain improved after medication administration. 09:50 Respiratory: Airway is patent Respiratory effort is even, unlabored, Respiratory aa5 pattern is regular, symmetrical. Derm: Skin is pink, warm \\T\\ dry. Vital Signs: 08:49 BP 179 / 118; Pulse 86; Resp 17; Temp 98.3; Pulse Ox 99% ; Weight 104.33 kg; Height 6 vg1 ft. 0 in. (182.88 cm); Pain 8/10; 09:00 BP 169 / 127; Pulse 80; Resp 16 S; Pulse Ox 99% on R/A; aa5 09:45 BP 179 / 120; Pulse 80; Resp 16 S; Temp 98.0(TE); Pulse Ox 99% on R/A; aa5 08:49 Body Mass Index 31.19 (104.33 kg, 182.88 cm) vg1 09:45 PA notified of BP. Pt states "I have my refill at the pharmacy I just need to pickler helper aa5 my high blood pressure medications". Pt educated about need to be consistent about taking antihypertensive medications, pt verbalized understanding. ED Course: 08:38 Patient arrived in ED. mr 08:39 Lg Ruiz PA is PHCP. [facility] 08:39 Fritz Woody MD is Attending Physician. jm 08:50 Minerva Galvin, SAMANTHA is Primary Nurse. aa5 08:51 Triage completed. vg1 08:51 Arm band placed on. vg1 08:53 Patient has correct armband on for positive identification. Bed in low position. Call vg1 light in reach. Side rails up X 1. 09:50 No provider procedures requiring assistance completed. Patient did not have IV access aa5 during this emergency room visit. Administered Medications: 09:10 Drug: Ketorolac 30 mg Route: IM; Site: right gluteus; aa5 09:20 Follow up: Response: No adverse reaction aa5 09:18 Drug: [place] (HYDROcodone-acetaminophen) 10 mg-325 mg 1 tabs Route: PO; aa5 09:50 Follow up: Response: No adverse reaction aa5 Medication: 08:54 VIS not applicable for this client. vg1 Outcome: 09:25 Discharge ordered by . [facility] 09:50 Discharged to home ambulatory. aa5 09:50 Condition: improved 09:50 Discharge instructions given to patient, Instructed on discharge instructions, follow up and referral plans. medication usage, Demonstrated understanding of instructions, follow-up care, medications, Prescriptions given X 2. 09:51 Patient left the ED. aa5 Signatures: Lg Ruiz PA PA jm Niurka Abdul mr Minerva Galvin, RN RN aa5 Dari Stratton RN RN vg1
[2022-04-26 09:56] VITALS: BP 179/118; TEMP 98.3; O2SAT 99
== END 2022-04-26 09:51 | disposition home or self-care (01) ==
LOC: ER 08:36
DX: M10.9 Gout, unspecified (principal); I10 Essential (primary) hypertension; I50.9 Heart failure, unspecified; Z88.5 Allergy status to narcotic agent
CPT/HCPCS: 96372; 99283

== ENCOUNTER 2022-05-01 02:49 | Emergency (ER) | payer SELFPAY ==
[2022-05-01] MEDS ORDERED: METOPROLOL TAR 50 MG TAB ONE (03:52)
[2022-05-01] MEDS ORDERED: lisinopriL 10 MG TAB ONE (03:54)
[2022-05-01 04:18] LABS: SARS-COV-2 RT PCR NEGATIVE (NEGATIVE)
--- NOTE | 2022-05-01 04:23 | ER ---
Nurse's Notes [facility] Name: Wagner Padron Age: 37 yrs Sex: Male : 1985 Arrival Date: 05/01/2022 Time: 02:51 Bed 6 Private MD: Diagnosis: Cough Presentation: 05/01 03:14 Chief complaint: Patient states: Patient C/O congestion,chills, bilateral chest wall pf1 pain 8 with cough and clear to yellow productive cough,onset 3 days. Coronavirus screen: Client denies travel out of the [place] in the last 14 days. Client presents with at least one sign or symptom that may indicate coronavirus-19. Standard/surgical mask placed on the client. Ebola Screen: Patient negative for fever greater than or equal to 101.5 degrees Fahrenheit, and additional compatible Ebola Virus Disease symptoms. Resp Distress? No respiratory distress is noted at this time. Initial Sepsis Screen: Does the patient meet any 2 criteria? No. Patient's initial sepsis screen is negative. Does the patient have a suspected source of infection? No. Patient's initial sepsis screen is negative. Risk Assessment: Do you want to hurt yourself or someone else? Patient reports no desire to harm self or others. Onset of symptoms was April 28, 2022. 03:14 Method Of Arrival: Ambulatory pf1 03:14 Acuity: HERMELINDA 4 pf1 Triage Assessment: 03:21 General: see nurse assessment. pf1 Historical: - Allergies: 03:38 Morphine; pf1 - Home Meds: 03:38 atorvastatin 20 mg daily [Active]; Furosemide 10mg Oral once daily [Active]; lisinopril pf1 10 mg oral tab 1 tab BID [Active]; metoprolol tartrate 100 mg oral tab 1 tab once daily [Active]; - PMHx: 03:38 CHF; Gout; Hypertension; high cholesterol; pf1 - PSHx: 03:38 Leg sx; right femur surgery; pf1 - Immunization history:: Client reports receiving the Levy \T\ Levy single-dose vaccine. Note with pfizer booster. - Family history:: not pertinent. - Hospitalizations: : No recent hospitalization is reported. Screenin:36 [facility] ED Fall Risk Assessment (Adult) History of falling in the last 3 months, pf1 including since admission No falls in past 3 months (0 pts) Confusion or Disorientation No (0 pts) Intoxicated or Sedated No (0 pts) Impaired Gait No (0 pts) Mobility Assist Device Used No (0 pt) Altered Elimination No (0 pt) Score/Fall Risk Level 0 - 2 = Low Risk Oriented to surroundings, Maintained a safe environment, Educated pt \T\ family on fall prevention, incl call for assistance when getting out of bed, Assessed \T\ reinforced patient's understanding of fall precautions, Provided non-skid footwear, Hourly rounding (assess needs \T\ fall precautionary measures) done, Used ambulatory aids as needed (educated on \T\ assisted with), Used gait belt as appropriate. Abuse screen: Denies threats or abuse. Nutritional screening: No deficits noted. Tuberculosis screening: No symptoms or risk factors identified. Assessment: 03:14 General: Appears in no apparent distress. uncomfortable, well groomed, well developed, pf1 Behavior is calm, cooperative, appropriate for age, quiet. 03:14 Pain: Complains of pain in bilateral chest wall pain of 8 Pain currently is 8 out of 10 pf1 on a pain scale. Neuro: No deficits noted. Level of Consciousness is awake, alert, obeys commands, Oriented to person, place, time, situation. Respiratory: Reports shortness of breath on exertion cough that is pain with cough Airway is patent Respiratory effort is even, unlabored, Respiratory pattern is regular, symmetrical, Breath sounds are clear bilaterally. GI: No deficits noted. No signs and/or symptoms were reported involving the gastrointestinal system. Abdomen is round non-distended, Bowel sounds present X 4 quads. : No deficits noted. No signs and/or symptoms were reported regarding the genitourinary system. EENT: Reports nasal congestion with chills. Derm: No deficits noted. No signs and/or symptoms reported regarding the dermatologic system. Musculoskeletal: No deficits noted. No signs and/or symptoms reported regarding the musculoskeletal system. 04:36 Reassessment: Patient appears in no apparent distress at this time. Patient and/or jb4 family updated on plan of care and expected duration. Pain level reassessed. Patient is alert, oriented x 3, equal unlabored respirations, skin warm/dry/pink. Provider made aware of pt's VS, okayed to d/c pt home. Vital Signs: 03:14 BP 195 / 135; Pulse 103; Resp 18; Temp 98.7; Pulse Ox 100% on R/A; Pain 8/10; pf1 03:37 Weight 104.33 kg; Height 6 ft. 0 in. (182.88 cm); pf1 04:15 BP 205 / 151; Pulse 100; Resp 16; Pulse Ox 99% on R/A; jb4 03:37 Body Mass Index 31.19 (104.33 kg, 182.88 cm) pf1 ED Course: 02:51 Patient arrived in ED. jj6 02:52 Kirby Cortes MD is Attending Physician. rn 03:14 Haritha fierro, SAMANTHA is Primary Nurse. pf1 03:21 Triage completed. pf1 03:22 Arm band placed on right wrist. pf1 03:26 XRAY Chest (1 view) In Process Unspecified. EDMS 03:35 Strep Sent. pf1 03:35 COVID-19/FLU A+B Sent. pf1 04:37 No provider procedures requiring assistance completed. Patient did not have IV access jb4 during this emergency room visit. Administered Medications: 03:51 Drug: Metoprolol TARTRATE 50 mg Route: PO; pf1 03:53 Drug: Lisinopril 10 mg Route: PO; pf1 04:36 Drug: Zithromax (azithromycin) 500 mg Route: PO; jb4 04:36 Follow up: Response: Medication administered at discharge. jb4 Outcome: 04:22 Discharge ordered by . rn 04:37 Discharged to home ambulatory. jb4 04:37 Condition: stable 04:37 Discharge instructions given to patient, Instructed on discharge instructions, follow up and referral plans. medication usage, Demonstrated understanding of instructions, follow-up care, medications, Prescriptions given X 3. 04:38 Patient left the ED. jb4 Signatures: Dispatcher [employer] EDMS Kirby Cortes MD MD rn Bryson, James, RN RN jb4 Chantel Edmond jj6 Haritha fierro, SAMANTHA RN pf1
--- NOTE | 2022-05-01 04:23 | EDPHYS ---
Physician Documentation [facility] Name: Wagner Padron Age: 37 yrs Sex: Male : 1985 Arrival Date: 05/01/2022 Time: 02:51 Bed 6 Private MD: ED Physician Kirby Cortes HPI: 05/01 03:08 This 37 yrs old Black Male presents to ER via Unassigned with complaints of General rn Weakness, Pain All Over, Cough, Congestion. 03:08 The patient or guardian reports cough, flu symptoms, low-grade fever, myalgias. Onset: rn The symptoms/episode began/occurred 3 day(s) ago. Severity of symptoms: At their worst the symptoms were mild, in the emergency department the symptoms are unchanged. Modifying factors: The symptoms are alleviated by nothing, the symptoms are aggravated by nothing. Associated signs and symptoms: Pertinent positives: rhinorrhea, sore throat. The patient has experienced similar episodes in the past. The patient has not recently seen a physician. Pt reports 3 days of chills, cough, congestion, sore throat, fatigue. No chest pain or sob. NO abd pain. No vomiting. . Historical: - Allergies: 03:38 Morphine; pf1 - Home Meds: 03:38 atorvastatin 20 mg daily [Active]; Furosemide 10mg Oral once daily [Active]; lisinopril pf1 10 mg oral tab 1 tab BID [Active]; metoprolol tartrate 100 mg oral tab 1 tab once daily [Active]; - PMHx: 03:38 CHF; Gout; Hypertension; high cholesterol; pf1 - PSHx: 03:38 Leg sx; right femur surgery; pf1 - Immunization history:: Client reports receiving the Levy \T\ Levy single-dose vaccine. Note with pfizer booster. - Family history:: not pertinent. - Hospitalizations: : No recent hospitalization is reported. ROS: 03:08 Constitutional: + chills Eyes: Negative for injury, pain, redness, and discharge, ENT: rn + sore throat and congestion Neck: Negative for injury, pain, and swelling, Cardiovascular: Negative for chest pain, palpitations, and edema, Respiratory: + cough Abdomen/GI: Negative for abdominal pain, nausea, vomiting, diarrhea, and constipation, Back: Negative for injury and pain, MS/Extremity: Negative for injury and deformity, Skin: Negative for injury, rash, and discoloration, Neuro: Negative for numbness, tingling, and seizure. Exam: 03:08 Constitutional: This is a well developed, well nourished patient who is awake, alert, rn and in no acute distress. Ambulatory to room without difficulty, speaking full sentences. Head/Face: Normocephalic, atraumatic. Eyes: Pupils equal round and reactive to light, extra-ocular motions intact. Lids and lashes normal. Conjunctiva and sclera are non-icteric and not injected. Cornea within normal limits. Periorbital areas with no swelling, redness, or edema. ENT: MMM, no stridor, no oral swelling or lesions noted Neck: Trachea midline, no thyromegaly or masses palpated, and no cervical lymphadenopathy. Supple, full range of motion without nuchal rigidity, or vertebral point tenderness. No Meningismus. Cardiovascular: Tachycardic, regular. No pulse deficits. Respiratory: No increased work of breathing, no retractions or nasal flaring. Abdomen/GI: soft, non-tender Skin: Warm, dry MS/ Extremity: Pulses equal, no cyanosis. Neuro: Awake and alert, GCS 15 Vital Signs: 03:14 BP 195 / 135; Pulse 103; Resp 18; Temp 98.7; Pulse Ox 100% on R/A; Pain 8/10; pf1 03:37 Weight 104.33 kg; Height 6 ft. 0 in. (182.88 cm); pf1 04:15 BP 205 / 151; Pulse 100; Resp 16; Pulse Ox 99% on R/A; jb4 03:37 Body Mass Index 31.19 (104.33 kg, 182.88 cm) pf1 MDM: 02:52 Patient medically screened. rn 04:19 Differential Diagnosis: Bronchitis Influenza Upper Respiratory Infection Viral Syndrome rn Pneumonia. Data reviewed: vital signs, nurses notes, lab test result(s), radiologic studies, plain films, and as a result, I will discharge patient. Counseling: I had a detailed discussion with the patient and/or guardian regarding: the historical points, exam findings, and any diagnostic results supporting the discharge/admit diagnosis, lab results, radiology results, the need for outpatient follow up, to return to the emergency department if symptoms worsen or persist or if there are any questions or concerns that arise at home. Response to treatment: the patient's symptoms have mildly improved after treatment, and as a result, I will discharge patient. Special discussion: I discussed with the patient/guardian in detail that at this point there is no indication for admission to the hospital. It is understood, however, that if the symptoms persist or worsen the patient needs to return immediately for re-evaluation. 04:23 Counseling: I had a detailed discussion with the patient and/or guardian regarding: the rn presence of at least one elevated blood pressure reading (>120/80) during this emergency department visit. Special discussion: I have referred the patient to see his PCP for further evaluation of high blood pressure. 05/01 03:05 Order name: COVID-19/FLU A+B; Complete Time: 04:19 rn 05/01 03:05 Order name: Strep; Complete Time: 04:19 rn 05/01 03:08 Order name: XRAY Chest (1 view) rn 05/01 04:09 Order name: Throat Culture EDMS Administered Medications: 03:51 Drug: Metoprolol TARTRATE 50 mg Route: PO; pf1 03:53 Drug: Lisinopril 10 mg Route: PO; pf1 04:36 Drug: Zithromax (azithromycin) 500 mg Route: PO; jb4 04:36 Follow up: Response: Medication administered at discharge. jb4 Disposition Summary: 05/01/22 04:22 Discharge Ordered Location: Home rn Problem: new rn Symptoms: have improved rn Condition: Stable rn Diagnosis - Cough rn Followup: rn - With: Private Physician - When: As needed - Reason: Recheck today's complaints, Re-evaluation by your physician Discharge Instructions: - Discharge Summary Sheet rn - Hypertension, Adult rn - Cough, Adult rn Forms: - Medication Reconciliation Form rn - Thank You Letter rn - Antibiotic flange turner - Prescription Opioid Use rn Prescriptions: - Lisinopril 10 mg Oral Tablet - take 1 tablet by ORAL route once daily; 30 tablet; Refills: 0, Product rn Selection Permitted - Metoprolol Tartrate 100 mg Oral Tablet - take 1 tablet by ORAL route once daily with a meal; 30 tablet; Refills: 0, rn Product Selection Permitted - Zithromax Z-Tico 250 mg Oral Tablet - take 1 tablet by ORAL route as directed for 5 days Day 1 - take two (2) tablets rn one time. Day 2, 3, 4 , 5 take one (1) tablet once daily.; 6 tablet; Refills: 0, Product Selection Permitted Signatures: Dispatcher [employer] Kirby Corrigan MD MD rn Bryson, James RN RN jb4 Haritha fierro RN RN pf1
[2022-05-01] MEDS ORDERED: AZITHROMYCIN 250 MG TAB ONE (04:33)
[2022-05-01 04:46] VITALS: TEMP 98.7
[2022-05-01 04:47] VITALS: BP 205/151; O2SAT 99
--- NOTE | 2022-05-01 13:24 | RAD REPORT ---
EXAM DESCRIPTION: XR Chest, 1 View CLINICAL HISTORY: The patient is 37 years old and is Male; COUGH TECHNIQUE: Frontal view of the chest. COMPARISON: August 17, 2021. FINDINGS: Lungs: Prominent interstitial markings which may indicate interstitial edema. Prominent pulmonary vasculature. Pleural space: Unremarkable. No pneumothorax. Heart: Unremarkable. Mediastinum: Unremarkable. Bones/joints: Unremarkable. IMPRESSION: Prominent interstitial markings which may indicate interstitial edema. Electronically signed by: Lencho Sullivan MD 05/01/2022 3:35 AM RAILWAY STATION MANAGER Due to temporary technical issues with the PACS/Fluency reporting system, reports are being signed by the in house radiologists without review as a courtesy to insure prompt reporting. The interpreting radiologist is fully responsible for the content of the report.
== END 2022-05-01 04:38 | disposition home or self-care (01) ==
LOC: ER 02:49
DX: R05.9 Cough, unspecified (principal); Z20.822 Contact with and (suspected) exposure to COVID-19; I50.9 Heart failure, unspecified; I10 Essential (primary) hypertension; Z88.5 Allergy status to narcotic agent
CPT/HCPCS: 0240U; 71045; 87070; 87081; 99284; Q0144

== ENCOUNTER 2022-06-26 09:17 | Emergency (ER) | payer SELFPAY ==
[2022-06-26] MEDS ORDERED: KETOROLAC 30 MG/ML INJ ONE (09:38)
[2022-06-26] MEDS ORDERED: HYDROCODONE/APAP 5/325 MG TAB ONE (09:38)
--- NOTE | 2022-06-26 10:05 | ER ---
Nurse's Notes [facility] Name: Wagner Padron Age: 37 yrs Sex: Male : 1985 Arrival Date: 06/26/2022 Time: 09:20 Bed 19 Private MD: Diagnosis: Idiopathic gout, left ankle and foot Presentation: 06/26 09:26 Chief complaint: Patient states: "my gout is flaring up and I've already missed a day aa5 of work and I don't want to miss more days". pt c/o left foot pain. Coronavirus screen: At this time, the client does not indicate any symptoms associated with coronavirus-19. Ebola Screen: Patient denies travel to an Ebola-affected area in the 21 days before illness onset. Initial Sepsis Screen: Does the patient meet any 2 criteria? No. Patient's initial sepsis screen is negative. Does the patient have a suspected source of infection? No. Patient's initial sepsis screen is negative. Risk Assessment: Do you want to hurt yourself or someone else? Patient reports no desire to harm self or others. Onset of symptoms was June 2022. 09: Acuity: HERMELINDA 4 aa5 09: Method Of Arrival: Ambulatory aa5 Triage Assessment: : General: Appears in no apparent distress. Behavior is calm, cooperative, appropriate ap3 for age. Pain: Complains of pain in dorsum of left foot. Neuro: Level of Consciousness is awake, alert, obeys commands, Oriented to person, place, time, situation. Historical: - Allergies: 09: Morphine; aa5 - PMHx: : CHF; Gout; High Cholesterol; Hypertension; Hypercholesterolemia; aa5 - PSHx: :22 Leg sx; right femur surgery; aa5 - Immunization history:: Adult Immunizations unknown. - Social history:: Smoking status: Patient denies any tobacco usage or history of. - Family history:: not pertinent. - Hospitalizations: : No recent hospitalization is reported. Screenin: [facility] ED Fall Risk Assessment (Adult) History of falling in the last 3 months, ap3 including since admission No falls in past 3 months (0 pts). Abuse screen: Denies threats or abuse. Nutritional screening: No deficits noted. Tuberculosis screening: No symptoms or risk factors identified. Vital Signs: : BP 170 / 99; Pulse 75; Resp 16 S; Temp 98.0(TE); Pulse Ox 99% on R/A; Weight 104.33 kg aa5 (R); Height 6 ft. 0 in. (182.88 cm) (R); 09:26 Body Mass Index 31.19 (104.33 kg, 182.88 cm) aa5 ED Course: 09:20 Patient arrived in ED. mr 09:20 Kirby Cortes MD is Attending Physician. rn 09:22 Arm band placed on Patient placed in an exam room, on a stretcher. aa5 09:27 Triage completed. aa5 09:30 Abi Perdomo, SAMANTHA is Primary Nurse. ap3 09:31 Patient has correct armband on for positive identification. Bed in low position. Call ap3 light in reach. Side rails up X 1. Pulse ox on. NIBP on. Door closed. Noise minimized. Warm blanket given. 10:14 No provider procedures requiring assistance completed. Patient did not have IV access ap3 during this emergency room visit. Administered Medications: 09:40 Drug: HYDROcodone-acetaminophen 5 mg-325 mg 1 tabs Route: PO; ap3 10:14 Follow up: Response: No adverse reaction; Pain is decreased ap3 09:41 Drug: Ketorolac 30 mg Route: IM; Site: right deltoid; ap3 10:14 Follow up: Response: No adverse reaction ap3 Medication: 09:31 VIS not applicable for this client. ap3 Outcome: 10:05 Discharge ordered by . rn 10:14 Discharged to home ambulatory. ap3 10:14 Condition: good 10:14 Discharge instructions given to patient, Instructed on discharge instructions, follow up and referral plans. medication usage, Demonstrated understanding of instructions, follow-up care, medications, Prescriptions given X 2. 10:15 Patient left the ED. ap3 Signatures: Niurka Abdul mr Kirby Cortes MD MD rn Calderon, Audri, RN RN [facility] Abi Perdomo RN RN ap3 Corrections: (The following items were deleted from the chart) 09:29 09:26 Arm band placed on [facility] aa
--- NOTE | 2022-06-26 10:05 | EDPHYS ---
Physician Documentation [facility] Name: Wagner Padron Age: 37 yrs Sex: Male : 1985 Arrival Date: 06/26/2022 Time: 09:20 Bed 19 Private MD: ED Physician Kirby Cortes HPI: 06/26 09:32 This 37 yrs old Black Male presents to ER via Ambulatory with complaints of Gout. rn 09:32 The patient presents with pain. The complaints affect the left foot. Onset: The rn symptoms/episode began/occurred yesterday. Modifying factors: The symptoms are alleviated by nothing, the symptoms are aggravated by weight bearing, movement, wearing shoes. Associated signs and symptoms: Pertinent negatives: fever, rash, swelling, warmth. Severity of symptoms: At their worst the symptoms were mild, in the emergency department the symptoms are unchanged. The patient has experienced similar episodes in the past. The patient has not recently seen a physician. Pt reports left foot pain, worse when walking or wearing shoes. + hx of gout in past and this feels identical. No injury/fever. . Historical: - Allergies: 09:22 Morphine; aa5 - PMHx: 09:22 CHF; Gout; High Cholesterol; Hypertension; Hypercholesterolemia; aa5 - PSHx: 09:22 Leg sx; right femur surgery; aa5 - Immunization history:: Adult Immunizations unknown. - Social history:: Smoking status: Patient denies any tobacco usage or history of. - Family history:: not pertinent. - Hospitalizations: : No recent hospitalization is reported. ROS: 09:34 Constitutional: Negative for fever, chills, and weight loss, Cardiovascular: Negative rn for chest pain, palpitations, and edema, Respiratory: Negative for shortness of breath, cough, wheezing, and pleuritic chest pain, MS/Extremity: + left foot pain Skin: Negative for injury, rash, and discoloration, Neuro: Negative for headache, weakness, numbness, tingling, and seizure. Exam: 09:34 Constitutional: This is a well developed, well nourished patient who is awake, alert, rn and in no acute distress. Skin: Warm, dry MS/ Extremity: Pulses equal, no cyanosis. Neurovascular intact. Full, normal range of motion. Equal circumference. NO warmth or erythema. No open wounds. Vital Signs: 09:26 BP 170 / 99; Pulse 75; Resp 16 S; Temp 98.0(TE); Pulse Ox 99% on R/A; Weight 104.33 kg aa5 (R); Height 6 ft. 0 in. (182.88 cm) (R); 09:26 Body Mass Index 31.19 (104.33 kg, 182.88 cm) aa5 MDM: 09:20 Patient medically screened. rn 09:39 ED course: Pt reports was drinking and had meat this weekend, is trying to cut down on rn ETOH. . 10:04 Differential diagnosis: arthritis, gout. Data reviewed: vital signs, nurses notes, old rn medical records, and as a result, I will discharge patient. I considered the following discharge prescriptions or medication management in the emergency department I discussed and recommended Over The Counter medications, Medications were administered in the Emergency Department. See MAR. Test considered but Not performed: X-ray: Xray foot considered but no trauma and states identical to previous gout attacks. . Counseling: I had a detailed discussion with the patient and/or guardian regarding: the historical points, exam findings, and any diagnostic results supporting the discharge/admit diagnosis, the need for outpatient follow up, to return to the emergency department if symptoms worsen or persist or if there are any questions or concerns that arise at home. Response to treatment: the patient's symptoms have mildly improved after treatment, and as a result, I will discharge patient. Administered Medications: 09:40 Drug: HYDROcodone-acetaminophen 5 mg-325 mg 1 tabs Route: PO; ap3 10:14 Follow up: Response: No adverse reaction; Pain is decreased ap3 09:41 Drug: Ketorolac 30 mg Route: IM; Site: right deltoid; ap3 10:14 Follow up: Response: No adverse reaction ap3 Disposition Summary: 06/26/22 10:05 Discharge Ordered Location: Home rn Problem: an acute exacerbation rn Symptoms: have improved rn Condition: Stable rn Diagnosis - Idiopathic gout, left ankle and foot rn Followup: rn - With: Private Physician - When: As needed - Reason: Recheck today's complaints, Re-evaluation by your physician Discharge Instructions: - Discharge Summary Sheet rn - Gout rn Forms: - Medication Reconciliation Form rn - Thank You Letter rn - Antibiotic corn grinder - Prescription Opioid Use rn Prescriptions: - Diclofenac Sodium 75 mg Oral tablet,delayed release (/EC) - take 1 tablet by ORAL route 2 times per day; 15 tablet; Refills: 0, Product rn Selection Permitted - Tramadol 50 mg Oral Tablet - take 1 tablet by ORAL route every 8 hours as needed; 12 tablet; Refills: 0, rn Product Selection Permitted Signatures: Kirby Cortes MD MD rn Calderon, Audri, RN RN aa5 Abi Perdomo RN RN ap3
[2022-06-26 10:23] VITALS: BP 170/99; TEMP 98; O2SAT 99
== END 2022-06-26 10:15 | disposition home or self-care (01) ==
LOC: ER 09:17
DX: M10.072 Idiopathic gout, left ankle and foot (principal); Z88.5 Allergy status to narcotic agent
CPT/HCPCS: 96372; 99283

== ENCOUNTER 2022-10-06 08:22 | Emergency (ER) | payer OTHER ==
--- NOTE | 2022-10-06 08:30 | EDPHYS ---
Physician Documentation [facility] Name: Wagner Padron Age: 37 yrs Sex: Male : 1985 Arrival Date: 10/06/2022 Time: 08:22 Bed 8 Private MD: ED Physician Faustino Taylor HPI: 10/06 08:23 This 37 yrs old Black Male presents to ER via Unassigned with complaints of Gout. jh7 08:23 Onset: The symptoms/episode began/occurred 2 day(s) ago. Associated signs and symptoms: jh7 Pertinent negatives: abdominal pain, chest pain, fever, vomiting. 37-year-old male complains of gout flareup in his right foot. Reports that the symptoms started 2 days ago and worsened after he worked yesterday. Also reports that his blood pressure will likely be high because he has not taken his pills today and is requesting a refill of metoprolol 100 mg twice daily.. Historical: - Allergies: 08:34 Morphine; kc6 - PMHx: 08:34 CHF; Gout; High Cholesterol; Hypercholesterolemia; Hypertension; kc6 - PSHx: 08:34 Leg sx; right femur surgery; kc6 - Immunization history:: Client reports receiving the 2nd dose of the Covid vaccine, Flu vaccine is up to date. - Social history:: Smoking status: Patient denies any tobacco usage or history of. ROS: 08:23 Constitutional: Negative for fever, chills, and weight loss, Eyes: Negative for injury, jh7 pain, redness, and discharge, Neck: Negative for injury, pain, and swelling, Cardiovascular: Negative for chest pain, palpitations, and edema, Respiratory: Negative for shortness of breath, cough, wheezing, and pleuritic chest pain, Abdomen/GI: Negative for abdominal pain, nausea, vomiting, diarrhea, and constipation, Back: Negative for injury and pain, Skin: Negative for injury, rash, and discoloration, Neuro: Negative for headache, weakness, numbness, tingling, and seizure. 08:23 MS/extremity: Positive for pain, tenderness, Negative for injury or acute deformity. 08:23 All other systems are negative. Exam: 08:23 Constitutional: This is a well developed, well nourished patient who is awake, alert, jh7 and in no acute distress. Head/Face: Normocephalic, atraumatic. Eyes: Pupils equal round and reactive to light, extra-ocular motions intact. Lids and lashes normal. Conjunctiva and sclera are non-icteric and not injected. Cornea within normal limits. Periorbital areas with no swelling, redness, or edema. Neck: Trachea midline, no thyromegaly or masses palpated, and no cervical lymphadenopathy. Supple, full range of motion without nuchal rigidity, or vertebral point tenderness. No Meningismus. Cardiovascular: Regular rate and rhythm with a normal S1 and S2. No gallops, murmurs, or rubs. Normal PMI, no JVD. No pulse deficits. Respiratory: Lungs have equal breath sounds bilaterally, clear to auscultation and percussion. No rales, rhonchi or wheezes noted. No increased work of breathing, no retractions or nasal flaring. Skin: Warm, dry with normal turgor. Normal color with no rashes, no lesions, and no evidence of cellulitis. Neuro: Awake and alert, GCS 15, oriented to person, place, time, and situation. Antalgic gait. 08:23 Musculoskeletal/extremity: ROM: limited active range of motion due to pain, in the Right foot, Circulation is intact in all extremities. Pulses: are normal with no appreciated deficits, Sensation intact. Pain noted to the right dorsal foot radiating to first MTP. Patient reports consistent with prior gout flareups.. Vital Signs: 08:33 BP 202 / 148; Pulse 81; Resp 18 S; Temp 98.8(TE); Pulse Ox 100% on R/A; Weight 104.33 kc6 kg; Height 6 ft. 0 in. ; Pain 8/10; 09:00 BP 207 / 150; kc6 08:33 Body Mass Index 31.19 (104.33 kg, 182.88 cm) kc6 08:33 Pain Scale: Adult kc6 MDM: 08:23 Patient medically screened. 7 08:23 Differential diagnosis: Gout flareup. Data reviewed: vital signs, nurses notes. I 7 considered the following discharge prescriptions or medication management in the emergency department Medications were administered in the Emergency Department. See MAR. Care significantly affected by the following chronic conditions: Hypertension. Counseling: I had a detailed discussion with the patient and/or guardian regarding: the historical points, exam findings, and any diagnostic results supporting the discharge/admit diagnosis, the presence of at least one elevated blood pressure reading (>120/80) during this emergency department visit, to return to the emergency department if symptoms worsen or persist or if there are any questions or concerns that arise at home. 08:23 Special discussion: The patient stated that he is aware that his blood pressure is jh7 extremely elevated. Denies headache, dizziness, or visual changes. Informed him that we would give him his home dose of metoprolol here and that he should go home and check his blood pressure. If his blood pressure stays elevated or he develops any of the symptoms discussed, he should return to the ER for further eval.. Administered Medications: 08:41 Drug: Dexamethasone IM 10 mg Route: IM; Site: right deltoid; ld1 08:41 Drug: Hydrocodone-Acetaminophen PO (7.5 mg-325 mg) 1 tabs Route: PO; ld1 08:41 Drug: Metoprolol PO 100 mg Route: PO; ld1 Disposition Summary: 10/06/22 08:30 Discharge Ordered Location: Home [facility] Problem: chronic [facility] Symptoms: have worsened [facility] Condition: Stable [facility] Diagnosis - Gout, unspecified 7 Followup: [facility] - With: Private Physician - When: 2 - 3 days - Reason: Recheck today's complaints Discharge Instructions: - Discharge Summary Sheet [facility] - Gout [facility] - Low-Purine Eating Plan [facility] Forms: - Work release form eb - Medication Reconciliation Form [facility] - Thank You Letter [facility] Prescriptions: - indomethacin 50 mg Oral capsule - take 1 capsule by ORAL route 3 times per day for 7 days administer with food or [facility] milk; 21 capsule; Refills: 0, Product Selection Permitted - Metoprolol Tartrate 100 mg Oral Tablet - take 1 tablet by ORAL route 2 times per day with a meal; 30 tablet; Refills: 0, jh7 Product Selection Permitted Signatures: Cathy Rivas RN RN ld1 Chantel Magallanes FNP FNP 7 Valarie Hernandez RN RN kc6
[2022-10-06] MEDS ORDERED: HYDROCODONE/APAP 7.5/325 MG TAB ONE (08:45)
[2022-10-06] MEDS ORDERED: dexAMETHasone 10 MG/ML VIAL ONE (08:45)
[2022-10-06] MEDS ORDERED: METOPROLOL XL 50 MG TAB PO ONE (08:45)
--- NOTE | 2022-10-06 09:24 | ER ---
Nurse's Notes [facility] Name: Wagner Padron Age: 37 yrs Sex: Male : 1985 Arrival Date: 10/06/2022 Time: 08:22 Bed 8 Private MD: Diagnosis: Gout, unspecified Presentation: 10/06 08:33 Chief complaint: Patient states: gout flare up to the right foot x 2 days. Coronavirus kc6 screen: At this time, the client does not indicate any symptoms associated with coronavirus-19. Ebola Screen: No symptoms or risks identified at this time. Initial Sepsis Screen: Does the patient meet any 2 criteria? No. Patient's initial sepsis screen is negative. Does the patient have a suspected source of infection? No. Patient's initial sepsis screen is negative. Risk Assessment: Do you want to hurt yourself or someone else? Patient reports no desire to harm self or others. Onset of symptoms was October 06, 2022. 08:33 Method Of Arrival: Wheelchair kc6 08:33 Acuity: HERMELINDA 4 kc6 Triage Assessment: 08:34 General: Appears in no apparent distress. comfortable, Behavior is calm, cooperative, kc6 appropriate for age. Pain: Complains of pain in right foot Pain does not radiate. Pain currently is 8 out of 10 on a pain scale. EENT: No signs and/or symptoms were reported regarding the EENT system. Neuro: Level of Consciousness is awake, alert, obeys commands, Oriented to person, place, time, situation, Appropriate for age. Cardiovascular: Capillary refill < 3 seconds. Respiratory: Airway is patent Trachea midline Respiratory effort is even, unlabored, Respiratory pattern is regular, symmetrical. GI: No signs and/or symptoms were reported involving the gastrointestinal system. : No signs and/or symptoms were reported regarding the genitourinary system. Derm: No signs and/or symptoms reported regarding the dermatologic system. Skin is intact, Skin is pink, warm \T\ dry. Musculoskeletal: No signs and/or symptoms reported regarding the musculoskeletal system. Circulation, motion, and sensation intact. Capillary refill < 3 seconds, Range of motion: intact in all extremities. Historical: - Allergies: 08:34 Morphine; kc6 - PMHx: 08:34 CHF; Gout; High Cholesterol; Hypercholesterolemia; Hypertension; kc6 - PSHx: 08:34 Leg sx; right femur surgery; kc6 - Immunization history:: Client reports receiving the 2nd dose of the Covid vaccine, Flu vaccine is up to date. - Social history:: Smoking status: Patient denies any tobacco usage or history of. Screenin:35 [facility] ED Fall Risk Assessment (Adult) History of falling in the last 3 months, kc6 including since admission No falls in past 3 months (0 pts) Confusion or Disorientation No (0 pts) Intoxicated or Sedated No (0 pts) Impaired Gait No (0 pts) Mobility Assist Device Used No (0 pt) Altered Elimination No (0 pt) Score/Fall Risk Level 0 - 2 = Low Risk Oriented to surroundings, Maintained a safe environment, Educated pt \T\ family on fall prevention, incl call for assistance when getting out of bed, Assessed \T\ reinforced patient's understanding of fall precautions, Hourly rounding (assess needs \T\ fall precautionary measures) done. Abuse screen: Denies threats or abuse. Denies injuries from another. Nutritional screening: No deficits noted. Tuberculosis screening: No symptoms or risk factors identified. Assessment: 08:36 Reassessment: please see triage assessment. kc6 09:00 Reassessment: Patient appears in no apparent distress at this time. No changes from [facility] previously documented assessment. Patient and/or family updated on plan of care and expected duration. Pain level reassessed. Patient is alert, oriented x 3, equal unlabored respirations, skin warm/dry/pink. Vital Signs: 08:33 BP 202 / 148; Pulse 81; Resp 18 S; Temp 98.8(TE); Pulse Ox 100% on R/A; Weight 104.33 kc6 kg; Height 6 ft. 0 in. ; Pain 8/10; 09:00 BP 207 / 150; kc6 08:33 Body Mass Index 31.19 (104.33 kg, 182.88 cm) kc6 08:33 Pain Scale: Adult kc ED Course: 08:23 Patient arrived in ED. rg4 08:23 Chantel Magallanes F[facility] jh7 08:23 Faustino Taylor MD is Attending Physician. jh7 08:33 Valarie Hernandez, SAMANTHA is Primary Nurse. kc6 08:34 Triage completed. kc6 08:34 Arm band placed on. kc6 08:36 Patient has correct armband on for positive identification. Bed in low position. Call kc6 light in reach. Side rails up X 1. 09:23 No provider procedures requiring assistance completed. Patient did not have IV access kc6 during this emergency room visit. Administered Medications: 08:41 Drug: Dexamethasone IM 10 mg Route: IM; Site: right deltoid; ld1 08:41 Drug: Hydrocodone-Acetaminophen PO (7.5 mg-325 mg) 1 tabs Route: PO; ld1 08:41 Drug: Metoprolol PO 100 mg Route: PO; ld1 Medication: 09:23 VIS not applicable for this client. kc6 Outcome: 08:30 Discharge ordered by . 7 09:23 Discharged to home ambulatory, with significant other. kc6 09:23 Condition: stable 09:23 Discharge instructions given to patient, Instructed on discharge instructions, follow up and referral plans. medication usage, Demonstrated understanding of instructions, follow-up care, medications, Prescriptions given X 2. 09:24 Patient left the ED. kc6 Signatures: Leonela Stratton rg4 Cathy Rivas, RN RN ld1 Chantel Magallanes, KELLER MACHINE OPERATOR KELLER MACHINE OPERATOR 7 Valarie Hernandez, RN RN kc6
[2022-10-06 09:28] VITALS: TEMP 98.8; O2SAT 100
[2022-10-06 09:29] VITALS: BP 207/150
== END 2022-10-06 09:24 | disposition home or self-care (01) ==
LOC: ER 08:22
DX: M10.9 Gout, unspecified (principal); Z88.5 Allergy status to narcotic agent
CPT/HCPCS: 96372; 99284; J1100

== ENCOUNTER 2022-11-14 07:29 | Emergency (ER) | payer OTHER ==
--- NOTE | 2022-11-14 07:59 | ER ---
Nurse's Notes [facility] Name: Wagner Padron Age: 37 yrs Sex: Male : 1985 Arrival Date: 11/14/2022 Time: 07:29 Bed 6 Private MD: Marshall Palma R Diagnosis: Gouty arthritis, hypertension incidental finding Presentation: 11/14 07:41 Chief complaint: Patient states: L foot pain for over 1 month, history of gout. Hasn't ll1 taken BP meds in 3 days. Coronavirus screen: Vaccine status: Patient reports receiving the 2nd dose of the covid vaccine. Client denies travel out of the [place] in the last 14 days. At this time, the client does not indicate any symptoms associated with coronavirus-19. Ebola Screen: Patient denies travel to an Ebola-affected area in the 21 days before illness onset. Initial Sepsis Screen: Does the patient meet any 2 criteria? HR > 90 bpm. No. Patient's initial sepsis screen is negative. Does the patient have a suspected source of infection? Yes: Bone or joint infection. Risk Assessment: Do you want to hurt yourself or someone else? Patient reports no desire to harm self or others. Onset of symptoms was October 10, 2022. 07:41 Method Of Arrival: Wheelchair ll1 07:41 Acuity: HERMELINDA 3 ll1 Triage Assessment: 07:43 General: Appears uncomfortable, Behavior is calm, cooperative, appropriate for age. ll1 Pain: Complains of pain in left foot Pain currently is 10 out of 10 on a pain scale. Quality of pain is described as aching, pressure, throbbing. Musculoskeletal: Circulation, motion, and sensation intact. Capillary refill < 3 seconds, Reports pain in left foot. Historical: - Allergies: 07:41 Morphine; ll1 - PMHx: 07:41 CHF; Gout; High Cholesterol; Hypercholesterolemia; Hypertension; ll1 - PSHx: 07:41 Leg sx; right femur surgery; ll1 - Immunization history:: Client reports receiving the 2nd dose of the Covid vaccine. - Social history:: Smoking status: Reported history of juuling and/or vaping. Screenin:14 [facility] ED Fall Risk Assessment (Adult) History of falling in the last 3 months, iw including since admission. Abuse screen: Denies threats or abuse. Denies injuries from another. Nutritional screening: No deficits noted. Tuberculosis screening: No symptoms or risk factors identified. Assessment: 08:14 General: Appears in no apparent distress. Behavior is calm, cooperative. Pain: iw Complains of pain in left foot. Neuro: Level of Consciousness is awake, alert, obeys commands, Oriented to person, place, time, situation. Cardiovascular: Patient's skin is warm and dry. Respiratory: Respiratory effort is even, unlabored, Respiratory pattern is regular. 08:26 Reassessment: discharge pending BP improvement, pt has hx of htn but not on meds for a iw while, he denies chest pain, headache, dizziness, only complaint is left foot pain. Vital Signs: 07:41 BP 215 / 142; Pulse 94; Resp 18; Temp 98.3; Pulse Ox 97% on R/A; Weight 104.33 kg; ll1 Height 6 ft. 0 in. ; Pain 10/10; 08:40 BP 200 / 133; Pulse 97; Resp 16; Pulse Ox 95% on R/A; iw 08:45 BP 194 / 109; Pulse 89; Resp 16; Pulse Ox 95% on R/A; iw 07:41 Body Mass Index 31.19 (104.33 kg, 182.88 cm) ll1 07:41 Pain Scale: Adult ll1 ED Course: 07:30 Patient arrived in ED. im 07:30 Marshall Palma MD is Private Physician. im 07:32 Marisa Barboza MD is Attending Physician. sp3 07:33 Arm band placed on Patient placed in an exam room, on a stretcher. ll1 07:43 Triage completed. ll1 07:58 EKG done, by ED staff, reviewed by Marisa Barboza MD. em1 08:14 Maxine Cooper, RN is Primary Nurse. iw 08:27 No provider procedures requiring assistance completed. Patient did not have IV access iw during this emergency room visit. 08:57 Patient has correct armband on for positive identification. iw Administered Medications: 08:07 Drug: Ketorolac IM 60 mg Route: IM; Site: right ventrogluteal; iw 08:07 Drug: cloNIDine PO 0.2 mg Route: PO; iw 09:00 Follow up: Response: No adverse reaction; Blood pressure is lowered iw Medication: 08:57 VIS not applicable for this client. iw Outcome: 07:58 Discharge ordered by . sp3 08:56 Discharged to home via wheelchair, with family. iw 08:56 Condition: good 08:56 Discharge instructions given to patient, Instructed on discharge instructions, follow up and referral plans. medication usage, Demonstrated understanding of instructions, follow-up care, medications, Prescriptions given X 3. 08:57 Patient left the ED. iw Signatures: Maxine Cooper RN RN iw [place] Vale em1 Tori Xiong RN RN 1 Marisa Barboza MD MD sp3 Rosario Fontanez
--- NOTE | 2022-11-14 07:59 | EDPHYS ---
Physician Documentation [facility] Name: Wagner Padron Age: 37 yrs Sex: Male : 1985 Arrival Date: 11/14/2022 Time: 07:29 Bed 6 Private MD: Marshall Palma R ED Physician Marisa Barboza HPI: 11/14 07:51 This 37 yrs old Black Male presents to ER via Wheelchair with complaints of Foot Pain - sp3 left. 07:51 37-year-old male with a history of hypertension, hyperlipidemia, gout, CHF now presents sp3 to the ED with chief complaint left foot pain in the ankle and first MTP. Symptoms are consistent with multiple episodes of gout that he has had in the past. He reports no change in diet or other inciting event. He did also denies trauma and fever. Patient states his blood pressure has been high for "years" and he is been out of his medications and has not gotten them refilled. He denies any headache, chest pain, shortness of breath, hematuria, abdominal pain, back pain, extremity numbness or tingling, or any other signs or symptoms on ROS at this time.. Historical: - Allergies: 07:41 Morphine; ll1 - PMHx: 07:41 CHF; Gout; High Cholesterol; Hypercholesterolemia; Hypertension; ll1 - PSHx: 07:41 Leg sx; right femur surgery; ll1 - Immunization history:: Client reports receiving the 2nd dose of the Covid vaccine. - Social history:: Smoking status: Reported history of juuling and/or vaping. ROS: 07:53 Constitutional: Negative for fever, chills, and weight loss, Eyes: Negative for injury, sp3 pain, redness, and discharge, ENT: Negative for injury, pain, and discharge, Neck: Negative for injury, pain, and swelling, Cardiovascular: Negative for chest pain, palpitations, and edema, Respiratory: Negative for shortness of breath, cough, wheezing, and pleuritic chest pain, Abdomen/GI: Negative for abdominal pain, nausea, vomiting, diarrhea, and constipation, Back: Negative for injury and pain, Neuro: Negative for headache, weakness, numbness, tingling, and seizure. 07:53 All other systems are negative. Exam: 07:53 Constitutional: This is a well developed, well nourished patient who is awake, alert, sp3 and in no acute distress. Head/Face: Normocephalic, atraumatic. Eyes: Pupils equal round and reactive to light, extra-ocular motions intact. Lids and lashes normal. Conjunctiva and sclera are non-icteric and not injected. Cornea within normal limits. Periorbital areas with no swelling, redness, or edema. ENT: Nares patent. No nasal discharge, no septal abnormalities noted. External auditory canals are clear. Oropharynx with no redness, swelling, or masses, exudates, or evidence of obstruction, uvula midline. Mucous membranes moist. Neck: Trachea midline, no thyromegaly or masses palpated, and no cervical lymphadenopathy. Supple, full range of motion without nuchal rigidity, or vertebral point tenderness. No Meningismus. Chest/axilla: Normal chest wall appearance and motion. Nontender with no deformity. No lesions are appreciated. Cardiovascular: Regular rate and rhythm with a normal S1 and S2. No gallops, murmurs, or rubs. Normal PMI, no JVD. No pulse deficits. Respiratory: Lungs have equal breath sounds bilaterally, clear to auscultation and percussion. No rales, rhonchi or wheezes noted. No increased work of breathing, no retractions or nasal flaring. Abdomen/GI: Soft, non-tender, with normal bowel sounds. No distension or tympany. No guarding or rebound. No evidence of tenderness throughout. Back: No spinal tenderness. No costovertebral tenderness. Full range of motion. Skin: Warm, dry with normal turgor. Normal color with no rashes, no lesions, and no evidence of cellulitis. Neuro: Awake and alert, GCS 15, oriented to person, place, time, and situation. Cranial nerves II-XII grossly intact. Motor strength 5/5 in all extremities. Sensory grossly intact. Cerebellar exam normal. Normal gait. Psych: Awake, alert, with orientation to person, place and time. Behavior, mood, and affect are within normal limits. 07:53 Musculoskeletal/extremity: Joint warmth and swelling in the left ankle and first MTP joint. Vascularity is normal and neurological exam is also normal.. 07:57 ECG was reviewed by the Attending Physician. EKG demonstrates normal sinus rhythm at 60 sp3 bpm with slight left ventricular hypertrophy, high voltage, QTc of [address]/T-segment changes without evidence of acute ischemia. Vital Signs: 07:41 BP 215 / 142; Pulse 94; Resp 18; Temp 98.3; Pulse Ox 97% on R/A; Weight 104.33 kg; ll1 Height 6 ft. 0 in. ; Pain 10/10; 08:40 BP 200 / 133; Pulse 97; Resp 16; Pulse Ox 95% on R/A; iw 08:45 BP 194 / 109; Pulse 89; Resp 16; Pulse Ox 95% on R/A; iw 07:41 Body Mass Index 31.19 (104.33 kg, 182.88 cm) ll1 07:41 Pain Scale: Adult ll1 MDM: 07:32 Patient medically screened. sp3 07:53 Data reviewed: vital signs, nurses notes. ED course: Patient will receive clonidine 0.2 sp3 mg and ketorolac 60 IM. Will discharge on colchicine and diclofenac. I had an extensive conversation with patient regarding his hypertension and need for follow-up. He acknowledged and states he will try and get seen. Clinically I am not highly suspicious for intracranial hemorrhage, CVA, ACS, vascular pathology including TAD and AAA, PE, or any other critical findings regarding his high blood pressure. From a joint perspective, I believe this is gout and not any other arthropathy or inflammatory process including septic joint. Antibiotics are not indicated at this time.. 07:57 ED course: We will also refill metoprolol 100 mg twice daily as was his prior dose.. sp3 11/14 07:47 Order name: EKG; Complete Time: 07:47 sp3 11/14 07:47 Order name: EKG - Nurse/Tech; Complete Time: 07:58 sp3 Administered Medications: 08:07 Drug: Ketorolac IM 60 mg Route: IM; Site: right ventrogluteal; iw 08:07 Drug: cloNIDine PO 0.2 mg Route: PO; iw 09:00 Follow up: Response: No adverse reaction; Blood pressure is lowered iw Disposition Summary: 11/14/22 07:58 Discharge Ordered Location: Home sp3 Condition: Stable sp3 Diagnosis - Gouty arthritis, hypertension incidental finding sp3 Followup: sp3 - With: Private Physician - When: - Reason: Continuance of care Discharge Instructions: - Discharge Summary Sheet sp3 - Gout sp3 - Preventing Hypertension sp3 Forms: - Medication Reconciliation Form sp3 - Thank You Letter sp3 - Antibiotic Education sp3 - Prescription Opioid Use sp3 - Patient Portal Instructions.htm sp3 Prescriptions: - colchicine (gout) 0.6 mg Oral tablet - take 1 tablet by ORAL route 2 times per day; 20 tablet; Refills: 0, Product sp3 Selection Permitted - Metoprolol Tartrate 100 mg Oral Tablet - take 1 tablet by ORAL route 2 times per day with a meal; 20 tablet; Refills: 0, sp3 Product Selection Permitted - Diclofenac Sodium 75 mg Oral Tablet Sustained Release - take 1 tablet by ORAL route 2 times per day; 30 tablet; Refills: 0, Product sp3 Selection Permitted Signatures: Maxine Cooper RN RN iw Tori Xiong RN RN ll1 Marisa Barboza MD MD sp3
[2022-11-14] MEDS ORDERED: cloNIDine HCL 0.1 MG TAB ONE (08:13)
[2022-11-14] MEDS ORDERED: KETOROLAC 30 MG/ML INJ ONE (08:13)
[2022-11-14 09:22] VITALS: O2SAT 95
[2022-11-14 09:23] VITALS: TEMP 98.3
[2022-11-14 09:24] VITALS: BP 194/109
--- NOTE | 2022-11-14 17:02 | EKG ---
Test Date: 2022-11-14 Test Time: 07:55:04 Respite Care Provider: VALENTIN MEASUREMENT RESULTS: Intervals: Rate: 90 CO: 182 QRSD: 106 QT: 394 QTc: 481 [place]: P: 68 CO: 182 QRS: -16 T: 174 INTERPRETIVE STATEMENTS: Normal sinus rhythm Biatrial enlargement Left ventricular hypertrophy with repolarization abnormality Prolonged QT Abnormal ECG Compared to ECG 08/17/2021 02:00:34 No significant changes Electronically Signed On 11-14-22 17:01:57 CDT by Hubert Parson
== END 2022-11-14 08:57 | disposition home or self-care (01) ==
LOC: ER 07:29
DX: M10.072 Idiopathic gout, left ankle and foot (principal); I10 Essential (primary) hypertension; Z88.5 Allergy status to narcotic agent
CPT/HCPCS: 93005

== ENCOUNTER 2022-11-14 19:30 | Emergency (ER) | payer OTHER ==
[2022-11-14] MEDS ORDERED: HYDROMORPHONE HCL 0.5 MG/0.5 ML INJ ONE (20:04)
[2022-11-14] MEDS ORDERED: cloNIDine HCL 0.1 MG TAB ONE (20:04)
[2022-11-14] MEDS ORDERED: dexAMETHasone 10 MG/ML VIAL ONE (20:04)
--- NOTE | 2022-11-14 21:11 | EDPHYS ---
Physician Documentation [facility] Name: Wagner Padron Age: 37 yrs Sex: Male : 1985 Arrival Date: 11/14/2022 Time: 19:30 Bed 11 Private MD: Baldemar Gaitan HPI: 11/14 19:41 This 37 yrs old Black Male presents to ER via Wheelchair with complaints of Foot Pain, jmm Feet Swelling. 19:41 The patient presents with pain. Onset: The symptoms/episode began/occurred gradually, 1 jmm day(s) ago. Is a 37-year-old male with a history of CHF, gout, hyperlipidemia, hypertension the presents emerged part with complaints of low lower extremity pain, particular to the left foot. He attributes this to gout. Has had similar episodes multiple times. Patient was most recently seen yesterday but unable to fill prescription because he said it cost too much. Patient continues to have pain and difficulty ambulating on the foot.. Historical: - Allergies: 19:42 Morphine; lg3 - Home Meds: 19:42 atorvastatin 20 mg daily [Active]; Furosemide 10mg Oral once daily [Active]; lisinopril lg3 10 mg Oral tab 1 tab BID [Active]; metoprolol tartrate 100 mg Oral tab 1 tab once daily [Active]; - PMHx: 19:42 CHF; Gout; High Cholesterol; Hypercholesterolemia; Hypertension; lg3 - PSHx: 19:42 Leg sx; right femur surgery; lg3 - Immunization history:: Adult Immunizations up to date. - Social history:: Smoking status: Reported history of juuling and/or vaping. Patient uses alcohol, only on a social basis. ROS: 19:41 Constitutional: Negative for fever, chills, and weight loss, Cardiovascular: Negative jmm for chest pain, palpitations, and edema, Respiratory: Negative for shortness of breath, cough, wheezing, and pleuritic chest pain. 19:41 MS/extremity: Positive for pain. 19:41 All other systems are negative. Exam: 19:41 Constitutional: This is a well developed, well nourished patient who is awake, alert, jmm and in no acute distress. Head/Face: atraumatic. Eyes: EOMI, no conjunctival erythema appreciated ENT: Moist Mucus Membranes Neck: Trachea midline, Supple Chest/axilla: Normal chest wall appearance and motion. Cardiovascular: Regular rate and rhythm. No edema appreciated Respiratory: Normal respirations, no respiratory distress appreciated Abdomen/GI: Non distended Back: Normal ROM 19:41 Musculoskeletal/extremity: Mild swelling noted to the left foot. Full dorsalis pedis pulse, compartments are soft, neurovascular. 19:41 Neuro: Orientation: is normal, Mentation: is normal, Memory: is normal. 19:41 Psych: Behavior/mood is pleasant, cooperative. Vital Signs: 19:40 BP 214 / 146; Pulse 97; Resp 18 S; Temp 98.7(O); Pulse Ox 100% on R/A; Weight 104.33 kg lg3 (R); Height 6 ft. 0 in. (R); Pain 10/10; 20:34 BP 208 / 122; Pulse 89; Resp 18; Pulse Ox 100% on R/A; mb9 21:15 BP 181 / 111; Pulse 78; Resp 18; Pulse Ox 99% on R/A; mb9 19:40 Body Mass Index 31.19 (104.33 kg, 182.88 cm) lg3 19:40 Pain Scale: Adult lg3 MDM: 19:41 Patient medically screened. [facility] 21:09 Differential diagnosis: Gout. Data reviewed: vital signs, nurses notes. Counseling: I apoorva had a detailed discussion with the patient and/or guardian regarding: the historical points, exam findings, and any diagnostic results supporting the discharge/admit diagnosis, the need for outpatient follow up, to return to the emergency department if symptoms worsen or persist or if there are any questions or concerns that arise at home. Administered Medications: 19:59 Drug: Dexamethasone IM 10 mg Route: IM; Site: right deltoid; mb9 20:35 Follow up: Response: No adverse reaction mb9 19:59 Drug: cloNIDine PO 0.1 mg Route: PO; mb9 20:35 Follow up: Response: No adverse reaction mb9 20:00 Drug: HYDROmorphone IM 0.5 mg Route: IM; Site: right gluteus; mb9 20:35 Follow up: Response: No adverse reaction mb9 Disposition Summary: 11/14/22 21:10 Discharge Ordered Location: Home [facility] Condition: Stable jmm Diagnosis - Gout, unspecified jmm Followup: екатеринаm - With: Hesham Segura DPM - When: 2 - 3 days - Reason: Recheck today's complaints, Continuance of care, Re-evaluation by your physician Discharge Instructions: - Discharge Summary Sheet apoorva - Gout екатерина Forms: - Medication Reconciliation Form apoorva - Thank You Letter apoorva - Antibiotic Education apoorva - Prescription Opioid Use [email or web address] - Patient Portal [email or web address] [facility] Prescriptions: - Medrol ([place]) 4 mg Oral Tablets, Dose Pack - take 1 tablet by ORAL route as directed - follow package instructions; 1 jm packet; Refills: 0, Product Selection Permitted Signatures: Lg Ruiz PA PA jmm Gibson, Lacie, RN RN lg3 Niurka Montoya RN RN mb9
--- NOTE | 2022-11-14 21:11 | ER ---
Nurse's Notes [facility] Name: Wagner Padron Age: 37 yrs Sex: Male : 1985 Arrival Date: 11/14/2022 Time: 19:30 Bed 11 Private MD: Diagnosis: Gout, unspecified Presentation: 11/14 19:40 Chief complaint: Patient states: history of gout. pain and swelling in left foot and lg3 ankle. i was seen this morning but they only gave me something for my BP and a prescription that i cant afford to get. pain 02/12. Coronavirus screen: Client denies travel out of the [place] in the last 14 days. At this time, the client does not indicate any symptoms associated with coronavirus-19. Ebola Screen: No symptoms or risks identified at this time. Initial Sepsis Screen: Does the patient meet any 2 criteria? No. Patient's initial sepsis screen is negative. Does the patient have a suspected source of infection? No. Patient's initial sepsis screen is negative. Risk Assessment: Do you want to hurt yourself or someone else? Patient reports no desire to harm self or others. Onset of symptoms was November 13, 2022. 19:40 Method Of Arrival: Wheelchair lg3 19:40 Acuity: HERMELINDA 3 lg3 Triage Assessment: 19:42 General: Appears in no apparent distress. uncomfortable, Behavior is calm, cooperative. lg3 Pain: Complains of pain in left leg. EENT: No deficits noted. No signs and/or symptoms were reported regarding the EENT system. Neuro: No deficits noted. Varela Agitation-Sedation Scale (RASS): 0 - Alert and Calm Level of Consciousness is awake, alert, obeys commands, Oriented to person, place, time, situation. Cardiovascular: No deficits noted. Denies chest pain, shortness of breath. Respiratory: No deficits noted. Airway is patent Respiratory effort is even, unlabored, Respiratory pattern is regular, symmetrical. GI: No deficits noted. No signs and/or symptoms were reported involving the gastrointestinal system. : No deficits noted. No signs and/or symptoms were reported regarding the genitourinary system. Derm: Skin is intact, is healthy with good turgor, Skin is dry, Skin is normal, Skin temperature is warm swelling noted to left lower extremity. Musculoskeletal: Circulation, motion, and sensation intact. Range of motion: limited in left ankle Reports pain in left lateral ankle and anterior aspect of left ankle. Historical: - Allergies: 19:42 Morphine; lg3 - Home Meds: 19:42 atorvastatin 20 mg daily [Active]; Furosemide 10mg Oral once daily [Active]; lisinopril lg3 10 mg Oral tab 1 tab BID [Active]; metoprolol tartrate 100 mg Oral tab 1 tab once daily [Active]; - PMHx: 19:42 CHF; Gout; High Cholesterol; Hypercholesterolemia; Hypertension; lg3 - PSHx: 19:42 Leg sx; right femur surgery; lg3 - Immunization history:: Adult Immunizations up to date. - Social history:: Smoking status: Reported history of juuling and/or vaping. Patient uses alcohol, only on a social basis. Screenin:01 [facility] ED Fall Risk Assessment (Adult) History of falling in the last 3 months, mb9 including since admission No falls in past 3 months (0 pts) Confusion or Disorientation No (0 pts) Intoxicated or Sedated No (0 pts) Impaired Gait Yes (1 pt) Mobility Assist Device Used No (0 pt) Altered Elimination No (0 pt) Score/Fall Risk Level 0 - 2 = Low Risk Oriented to surroundings, Maintained a safe environment, Educated pt \T\ family on fall prevention, incl call for assistance when getting out of bed. Abuse screen: Denies threats or abuse. Nutritional screening: No deficits noted. Tuberculosis screening: No symptoms or risk factors identified. Assessment: 20:01 Reassessment: No changes from previously documented assessment. Patient and/or family mb9 updated on plan of care and expected duration. Pain level reassessed. Patient is alert, oriented x 3, equal unlabored respirations, skin warm/dry/pink. 20:35 Reassessment: Patient states feeling better. Patient states symptoms have improved. mb9 21:15 Reassessment: No changes from previously documented assessment. Patient and/or family mb9 updated on plan of care and expected duration. Pain level reassessed. Patient is alert, oriented x 3, equal unlabored respirations, skin warm/dry/pink. Vital Signs: 19:40 BP 214 / 146; Pulse 97; Resp 18 S; Temp 98.7(O); Pulse Ox 100% on R/A; Weight 104.33 kg lg3 (R); Height 6 ft. 0 in. (R); Pain 10/10; 20:34 BP 208 / 122; Pulse 89; Resp 18; Pulse Ox 100% on R/A; mb9 21:15 BP 181 / 111; Pulse 78; Resp 18; Pulse Ox 99% on R/A; mb9 19:40 Body Mass Index 31.19 (104.33 kg, 182.88 cm) lg3 19:40 Pain Scale: Adult 3 ED Course: 19:32 Patient arrived in ED. 2 19:38 Lg Ruiz PA is PHCP. [facility] 19:38 Baldemar Harden MD is Attending Physician. m 19:42 Triage completed. 3 19:42 Arm band placed on right wrist. [facility] 19:52 Niurka Montoya, SAMANTHA is Primary Nurse. mb9 20:01 Placed in gown. Bed in low position. Call light in reach. Side rails up X 1. Client mb9 placed on continuous cardiac and pulse oximetry monitoring. NIBP monitoring applied. 20:01 No provider procedures requiring assistance completed. mb9 20:01 Patient did not have IV access during this emergency room visit. mb9 21:10 Hesham Segura DPM is Referral Physician. apoorva Administered Medications: 19:59 Drug: Dexamethasone IM 10 mg Route: IM; Site: right deltoid; mb9 20:35 Follow up: Response: No adverse reaction mb9 19:59 Drug: cloNIDine PO 0.1 mg Route: PO; mb9 20:35 Follow up: Response: No adverse reaction mb9 20:00 Drug: HYDROmorphone IM 0.5 mg Route: IM; Site: right gluteus; mb9 20:35 Follow up: Response: No adverse reaction mb9 Medication: 20:01 VIS not applicable for this client. mb9 Outcome: 21:10 Discharge ordered by . apoorva 21:11 Discharged to home ambulatory. mb9 21:11 Condition: stable 21:11 Discharge instructions given to patient, Instructed on discharge instructions, follow up and referral plans. Demonstrated understanding of instructions, follow-up care, Prescriptions given X 1. 21:15 Patient left the ED. mb9 Signatures: Lg Ruiz PA PA jmm Gibson, Lacie, SAMANTHA RN [facility] Hannah Marquez, Char, RN RN mb9
[2022-11-14 22:55] VITALS: TEMP 98.7
[2022-11-14 22:57] VITALS: BP 181/111; O2SAT 99
== END 2022-11-14 21:15 | disposition home or self-care (01) ==
LOC: ER 19:30
DX: M10.9 Gout, unspecified (principal); Z88.5 Allergy status to narcotic agent
CPT/HCPCS: J1100; J1170

== ENCOUNTER 2023-03-04 08:08 | Emergency (ER) | payer OTHER ==
[2023-03-04] MEDS ORDERED: KETOROLAC 30 MG/ML INJ ONE (08:39)
[2023-03-04] MEDS ORDERED: MORPHINE 4 MG/ML SYR ONE ×2 (08:39→09:49)
[2023-03-04] MEDS ORDERED: dexAMETHasone 10 MG/ML VIAL ONE (08:39)
--- NOTE | 2023-03-04 09:08 | RAD REPORT ---
[facility]47 [facility] CLINICAL HISTORY: left leg pain COMPARISON: None FINDINGS: Left common femoral, superficial femoral, greater saphenous, popliteal and posterior tibi al veins are compressible and demonstrate augmentation. Doppler demonstrates good flow. Grayscale, color and spectral analysis performed on all vessels IMPRESSION: No evidence of deep venous thrombosis involving the left lower extremity.
[2023-03-04] MEDS ORDERED: cloNIDine HCL 0.1 MG TAB ONE (09:48)
--- NOTE | 2023-03-04 10:16 | ER ---
Nurse's Notes [facility] Name: Wagner Padron Age: 37 yrs Sex: Male : 1985 Arrival Date: 03/04/2023 Time: 08:08 Bed 5 Private MD: Diagnosis: Gout, unspecified Presentation: 03/04 08:17 Chief complaint: Patient states: Pain to left ankle, radiates to posterior knee, hx of jl7 gout. Coronavirus screen: At this time, the client does not indicate any symptoms associated with coronavirus-19. Ebola Screen: No symptoms or risks identified at this time. 08:17 Method Of Arrival: Ambulatory jl7 08:17 Initial Sepsis Screen: Does the patient meet any 2 criteria? No. Patient's initial jl7 sepsis screen is negative. Does the patient have a suspected source of infection? No. Patient's initial sepsis screen is negative. Risk Assessment: Do you want to hurt yourself or someone else? Patient reports no desire to harm self or others. Onset of symptoms was March 03, 2023. 08:17 Acuity: HERMELINDA 3 jl7 Triage Assessment: 08:17 General: Appears in no apparent distress. uncomfortable, Behavior is calm, cooperative, jl7 appropriate for age. Pain: Complains of pain in left leg. Historical: - Allergies: 08:40 HTN medication; jl7 - Home Meds: 08:37 lisinopril 10 mg Oral tab 1 tab BID [Active]; jl7 - PMHx: 08:37 CHF; Gout; High Cholesterol; Hypercholesterolemia; Hypertension; jl7 - PSHx: 08:37 Leg sx; right femur surgery; jl7 - Immunization history:: Adult Immunizations unknown. - Social history:: Smoking status: Reported history of juuling and/or vaping. - Family history:: not pertinent. - Hospitalizations: : No recent hospitalization is reported. Screenin:04 [facility] ED Fall Risk Assessment (Adult) Score/Fall Risk Level 0 - 2 = Low Risk jl7 Oriented to surroundings, Maintained a safe environment. Abuse screen: Denies threats or abuse. Denies injuries from another. Nutritional screening: No deficits noted. Tuberculosis screening: No symptoms or risk factors identified. Assessment: 09:05 Reassessment: Pt reports decreased pain, rated 8/10 at this time. jl7 09:39 Pain: Complains of pain in left leg Pain currently is 8 out of 10 on a pain scale. mb9 Quality of pain is described as aching, throbbing, Is continuous. Vital Signs: 08:17 BP 188 / 134; Pulse 98; Resp 17; Temp 99.4; Pulse Ox 96% ; Weight 108.86 kg; Height 6 jl7 ft. 0 in. ; Pain 10/10; 09:03 BP 183 / 118; Pulse 92; Resp 18; Pulse Ox 96% on R/A; mb9 09:03 BP 183 / 118; Pulse 89; Resp 17; Pulse Ox 97% ; Pain 8/10; jl7 09:21 BP 173 / 121; Pulse 94; Resp 15; Pulse Ox 98% ; jl7 10:06 BP 164 / 112; Pulse 94; Resp 15; Pulse Ox 98% ; jl7 10:27 BP 152 / 116; Pulse 78; Resp 15; Pulse Ox 100% ; jl7 08:17 Body Mass Index 32.55 (108.86 kg, 182.88 cm) jl7 08:17 Pain Scale: Adult jl7 09:03 Pain Scale: Adult jl7 ED Course: 08:10 Patient arrived in ED. rg4 08:10 Kirby Cortes MD is Attending Physician. rn 08:17 Arm band placed on right wrist. jl7 08:17 Provided Education on: US test. jl7 08:30 Patient has correct armband on for positive identification. Placed in gown. Bed in low jl7 position. Call light in reach. Side rails up X 1. Pulse ox on. NIBP on. Warm blanket given. Pillow given. 08:34 Extremity [facility] [employer] US In Process Unspecified. EDMS 08:36 Ade Pope, RN is Primary Nurse. jl7 08:37 Triage completed. jl7 08:38 Inserted saline lock: 20 gauge in right antecubital area, using aseptic technique. jl7 10:15 Kirby Cortes MD is Referral Physician. rn 10:15 Referral Physician role handed off by Kirby Cortes MD rn 10:25 Provided Education on: use of crutches. jl7 10:25 Crutch training done. jl7 10:27 No provider procedures requiring assistance completed. IV discontinued, intact, jl7 bleeding controlled, No redness/swelling at site. Pressure dressing applied. Administered Medications: 08:38 Drug: morphine IVP or IV 4 mg IVP once over 4 mins Route: IVP; Infused Over: 4 mins; jl7 Site: right antecubital; 09:00 Follow up: Response: No adverse reaction; Pain is decreased jl7 08:38 Drug: Decadron - Dexamethasone IVP 10 mg IVP once Route: IVP; Site: right antecubital; jl7 10:29 Follow up: Response: No adverse reaction jl7 08:39 Drug: Ketorolac IVP 15 mg IVP once Route: IVP; Site: right antecubital; jl7 10:29 Follow up: Response: No adverse reaction jl7 09:38 Drug: morphine IVP or IV 4 mg IVP once over 4 mins Route: IVP; Infused Over: 4 mins; mb9 Site: right antecubital; 10:00 Follow up: Response: No adverse reaction; Pain is decreased jl7 09:38 Drug: cloNIDine PO 0.1 mg PO once Route: PO; mb9 10:28 Follow up: Response: No adverse reaction; Blood pressure is lowered jl7 Medication: 10:27 VIS not applicable for this client. jl7 Outcome: 10:15 Discharge ordered by . rn 10:27 Discharged to home ambulatory, jl7 10:27 Condition: stable 10:27 Discharge instructions given to patient, Instructed on discharge instructions, follow up and referral plans. medication usage, Demonstrated understanding of instructions, follow-up care, medications, Prescriptions given X 2, 10:27 Instructed on crutch walking, Demonstrated understanding of instructions, jl7 10:30 Patient left the ED. jl7 Signatures: Dispatcher [employer] EDMS Kirby Cortes MD MD rn Garcia, Rubi rg4 Ade Pope RN RN jl7 Niurka Montoya RN RN mb9 Corrections: (The following items were deleted from the chart) 08:40 08:37 Allergies: Morphine; jl7 jl7
--- NOTE | 2023-03-04 10:16 | EDPHYS ---
Physician Documentation [facility] Name: Wagner Padron Age: 37 yrs Sex: Male : 1985 Arrival Date: 03/04/2023 Time: 08:08 Bed 5 Private MD: ED Physician Kirby Cortes HPI: 03/04 08:55 This 37 yrs old Black Male presents to ER via Ambulatory with complaints of Ankle Pain. rn 08:55 The patient presents with pain. The complaints affect the left ankle. Onset: The rn symptoms/episode began/occurred at an unknown time. Associated signs and symptoms: Pertinent negatives: fever, numbness, weakness. Severity of symptoms: At their worst the symptoms were moderate, in the emergency department the symptoms are unchanged. The patient has experienced similar episodes in the past. The patient has not recently seen a physician. Patient reports left ankle pain that radiates up to knee. History of gout and denies any injury. Feels similar to previous episodes of gout, has been seen here multiple times for it and tends to happen in his left ankle as well. No fever. Taking colchicine and helping slightly. Patient does have history of DVT, no longer takes anticoagulation.. Historical: - Allergies: 08:40 HTN medication; jl7 - Home Meds: 08:37 lisinopril 10 mg Oral tab 1 tab BID [Active]; jl7 - PMHx: 08:37 CHF; Gout; High Cholesterol; Hypercholesterolemia; Hypertension; jl7 - PSHx: 08:37 Leg sx; right femur surgery; jl7 - Immunization history:: Adult Immunizations unknown. - Social history:: Smoking status: Reported history of juuling and/or vaping. - Family history:: not pertinent. - Hospitalizations: : No recent hospitalization is reported. ROS: 08:55 Constitutional: Negative for fever, chills, and weight loss, Cardiovascular: Negative rn for chest pain, palpitations, and edema, Respiratory: Negative for shortness of breath, cough, wheezing, and pleuritic chest pain, Abdomen/GI: Negative for abdominal pain, nausea, vomiting, diarrhea, and constipation, Back: Negative for injury and pain, MS/Extremity: Positive for left ankle pain Skin: Negative for injury, rash, and discoloration, Neuro: Negative for headache, weakness, numbness, tingling, and seizure, Exam: 08:55 Constitutional: This is a well developed, well nourished patient who is awake, alert, rn and in no acute distress. Cardiovascular: Regular rate and rhythm. No pulse deficits. Respiratory: No increased work of breathing, no retractions or nasal flaring. Skin: Warm, dry MS/ Extremity: Pulses equal, no cyanosis. Neurovascular intact. Equal circumference. Neuro: Awake and alert, GCS 15 Vital Signs: 08:17 BP 188 / 134; Pulse 98; Resp 17; Temp 99.4; Pulse Ox 96% ; Weight 108.86 kg; Height 6 jl7 ft. 0 in. ; Pain 10/10; 09:03 BP 183 / 118; Pulse 92; Resp 18; Pulse Ox 96% on R/A; mb9 09:03 BP 183 / 118; Pulse 89; Resp 17; Pulse Ox 97% ; Pain 8/10; jl7 09:21 BP 173 / 121; Pulse 94; Resp 15; Pulse Ox 98% ; jl7 10:06 BP 164 / 112; Pulse 94; Resp 15; Pulse Ox 98% ; jl7 10:27 BP 152 / 116; Pulse 78; Resp 15; Pulse Ox 100% ; jl7 08:17 Body Mass Index 32.55 (108.86 kg, 182.88 cm) jl7 08:17 Pain Scale: Adult jl7 09:03 Pain Scale: Adult jl7 MDM: 08:10 Patient medically screened. rn 10:13 Differential diagnosis: fracture. rn 10:14 Data reviewed: vital signs, nurses notes, radiologic studies, plain films, and as a rn result, I will discharge patient. Counseling: I had a detailed discussion with the patient and/or guardian regarding the historical points, exam findings, and any diagnostic results supporting the discharge/admit diagnosis, radiology results, the need for outpatient follow up, to return to the emergency department if symptoms worsen or persist or if there are any questions or concerns that arise at home. Response to treatment: the patient's symptoms have mildly improved after treatment, and as a result, I will discharge patient. Special discussion: I discussed with the patient/guardian in detail that at this point there is no indication for admission to the hospital. It is understood, however, that if the symptoms persist or worsen the patient needs to return immediately for re-evaluation. Based on the history and exam findings, there is no indication for further emergent testing or inpatient evaluation. I discussed with the patient/guardian the need to see the primary care provider for further evaluation of the symptoms. 03/04 08:20 Order name: Extremity Venous Uni [employer] US; Complete Time: 09:09 rn 03/04 08:20 Order name: IV Start; Complete Time: 08:40 rn 03/04 10:29 Order name: Crutches; Complete Time: 10:30 rn Administered Medications: 08:38 Drug: morphine IVP or IV 4 mg IVP once over 4 mins Route: IVP; Infused Over: 4 mins; jl7 Site: right antecubital; 09:00 Follow up: Response: No adverse reaction; Pain is decreased jl7 08:38 Drug: Decadron - Dexamethasone IVP 10 mg IVP once Route: IVP; Site: right antecubital; jl7 10:29 Follow up: Response: No adverse reaction jl7 08:39 Drug: Ketorolac IVP 15 mg IVP once Route: IVP; Site: right antecubital; jl7 10:29 Follow up: Response: No adverse reaction jl7 09:38 Drug: morphine IVP or IV 4 mg IVP once over 4 mins Route: IVP; Infused Over: 4 mins; mb9 Site: right antecubital; 10:00 Follow up: Response: No adverse reaction; Pain is decreased jl7 09:38 Drug: cloNIDine PO 0.1 mg PO once Route: PO; mb9 10:28 Follow up: Response: No adverse reaction; Blood pressure is lowered jl7 Disposition Summary: 03/04/23 10:15 Discharge Ordered Notes: Location: Home rn Problem: new rn Symptoms: have improved rn Condition: Stable rn Diagnosis - Gout, unspecified rn Followup: rn - With: Private Physician - When: As needed - Reason: Recheck today's complaints, Re-evaluation by your physician Discharge Instructions: - Discharge Summary Sheet rn - Gout rn Forms: - Medication Reconciliation Form rn - Thank You Letter rn - Antibiotic director of learning - Prescription Opioid Use rn - Patient Portal Instructions rn - Leadership Thank You Letter rn Prescriptions: - Tramadol 50 mg Oral Tablet - take 1 tablet ORAL route every 8 hours as needed; 12 tablet; Refills: 0, rn Product Selection Permitted - Medrol ([place]) 4 mg Oral Tablets, Dose Pack - take 1 tablet ORAL route as directed - follow package instructions; 1 packet; rn Refills: 0, Product Selection Permitted Signatures: Dispatcher [employer] Kirby Corrigan MD MD rn Leal, Jahala, RN RN jl7 Niurka Montoya RN RN mb9 Corrections: (The following items were deleted from the chart) 08:40 08:37 Allergies: Morphine; ashli jl7
[2023-03-04 10:54] VITALS: TEMP 99.4
[2023-03-04 11:03] VITALS: BP 152/116; O2SAT 100
== END 2023-03-04 10:30 | disposition home or self-care (01) ==
LOC: ER 08:08
DX: M10.9 Gout, unspecified (principal); I10 Essential (primary) hypertension; Z88.8 Allergy status to other drugs, medicaments and biological substances
CPT/HCPCS: 93971; 96375; 96374; 99284; J1100

== ENCOUNTER 2023-03-25 09:47 | Inpatient (IN) | payer OTHER ==
--- OUTSIDE RECORDS SUMMARY | 2023-03-25 09:51 | XMS REPORT | Continuity of Care Document ---
:1985 Author Organization [facility] t Address [address] [place] [address] [place] [id number] Care Team Providers Name Role Phone Cristy FREDERICK, Marshall Dean Primary Care Physician [phone] Cipriano FREDERICK, Basim Sanz Attending Clinician [phone] Tameka NOVOA Attending Clinician Unavailable Tameka Garcia Attending Clinician Doctor Unassigned, Plain Attending Clinician Unavailable Sherrell Neumann RN Attending Clinician Unavailable DIMITRIOS ABEL Attending Clinician Unavailable Dimitrios Abel MD Attending Clinician DIMITRIOS ABEL Admitting Clinician Unavailable Dimitrios Abel MD Admitting Clinician Payers Payer Name Policy Type Policy Number Effective Date Expiration Date S ource Problems Condition Condition Condition Status Onset Resolution Last Treating Co mments Source Name Details Category Date Date Treatment Clinician Date SOB SOB Disease Active Univers (shortness (shortness 4-14 it y of of breath) [place] breath) [place] [facility] Obesity Obesity Disease Active Univers (BMI (BMI 7-21 ity of 30-39.9) 30-39.9) 00:00: [place] 00 Medical Branch Allergies, Adverse Reactions, Alerts Allergy Allergy Status Severity Reaction(s) Onset Inactive Treating Comm ents Source Name Type Date Date Clinician MORPHINE DRUG Active Unknown-Cmnt Un selma INGREDI 12-06 ity of 00:00: [place] [address] [place] [address] Morphine Propensi Active Unknown - Patient Un selma ty to See comments 12-06 does not it y of adverse 00:00: know [place] reaction 00 reaction Medica l s Branch NO KNOWN Drug Active Univers ALLERGIE Class ity of S [facility] Social History Social Habit Start Date Stop Date Quantity Comments Source History SDOH University o f Alcohol Std [place] Medical Drinks Branch History SDNJ University o f Alcohol Binge [place] Medic al Branch History SDOH University o f Alcohol Frequency [facility] edical Branch Exposure to 2021-11-26 2021-12-06 [facility] 12[facility]55:00 [facility] (event) [place] Alcohol intake 2021-12-06 2021-12-06 Current drinker Unive rsity of 00:00:00 00:00:00 of alcohol [facility] (finding) [place] Alcohol Comment 2016-11-22 2016-11-22 Daily Universit y of 00:00:00 00:00:00 [facility] Tobacco use and 2016-11-22 2016-11-22 Smokeless tobacco Un iversity of exposure 00:00:00 00:00:00 non-user [facility] Sex Ass[birth year] At [birth year] Universit y of 00:00:00 00:00:00 [facility] Smoking Status Start Date Stop Date Source Never smoked tobacco [facility] Medications Ordered Filled Start Stop Current Ordering Indication Dosage Frequency Signature Comments Components Source Medication Medication Date Date Medication? Clinician (SIG) Name Name lisinopriL Yes 20mg 20 mg, Unive rs (PRINIVIL,Z 12-07 Oral, ity of ESTRIL) 14:00: DAILY, [place] tablet 20 00 First dose Medi cory mg on Viktoriya Branch 12/07/21 at 0900, Until Discontinu ed, Routine HYDROcodone 2021- No 1{tbl} 1 tablet, Univers -acetaminop 12-06 Oral, ity of hen (NORCO) 17:15: 16:12 ONCE, 1 [place] 10-325 mg 00 :00 dose, On Medica l tablet 1 Sat12/06/21 Branc h tablet at 1215, Routine carvediloL No 25mg 25 mg, Univ ers (COREG) 12-06 Oral, ity of tablet 25 17:15: 16:12 ONCE, 1 [place] mg 00 :00 dose, On Medical 12/06/21 Branch at 1215, Routine methylpredn 2021- No 125mg 125 mg, U nivers isolone sod 12-06 Intramuscu i ty of succ 16:45: 16:09 lar, ONCE, [place] (SOLU-MEDRO 00 :00 1 dose, On Me dical L) Sat12/06/21 Branch injection at 1145, 125 mg REGINA acetaminoph Yes [id number] 1{tbl} Take 1 Un selma en-codeine 12-06 tablet by ity of 300-30 mg 00:00: mouth [place] tablet 00 every 4 Medical (four) Branch hours as needed for Pain (scale 4-6). Indication s: acute pain predniSONE Yes [id number] 1 PO BID x Univers 20 mg 12-06 4 days ity of tablet 00:00: [place] 00 Medical Branch acetaminoph Yes [id number] 1{tbl} Take 1 Un selma en-codeine 12-06 tablet by ity of 300-30 mg 00:00: mouth [place] tablet 00 every 4 Medical (four) Branch hours as needed for Pain (scale 4-6). Indication s: acute pain predniSONE Yes [id number] 1 PO BID x Univers 20 mg 12-06 4 days ity of tablet 00:00: [place] 00 Medical Branch predniSONE 2021-0 2021- No [id number] 1 PO BID x Univers 20 mg 12-06 4 days ity of tablet 00:00: 00:00 [place] 00 :00 Medical Branch aspirin 81 2021-0 Yes [id number] 81mg Take 1 Univers mg chewable 5-12 tablet by ity of tablet 00:00: mouth [place] 00 daily. Medical Branch atorvastati Yes [id number] 40mg Take 1 Univers n 40 mg 5-12 tablet by ity of tablet 00:00: mouth at [place] 00 bedtime. Medical Branch carvediloL 0 Yes [id number] 37.5mg Take 1.5 Univers 25 mg 5-12 tablets by ity of tablet 00:00: mouth 2 [place] (two) Medical times Branch daily with meals. furosemide 2021-0 Yes [id number] 40mg Take 1 Univers 40 mg 5-12 tablet by ity of tablet 00:00: mouth [place] 00 every Medical morning Branch and evening. lisinopriL 2021-0 Yes [id number] 30mg Take 3 Univers 10 mg 5-12 tablets by ity of tablet 00:00: mouth [place] 00 daily. Medical Branch spironolact 0 Yes [id number] 25mg Take 1 Univers one 25 mg 5-12 tablet by ity o f tablet 00:00: mouth [place] 00 daily. Medical Branch aspirin 81 0 Yes [id number] 81mg Take 1 Univers mg chewable 5-12 tablet by ity of tablet 00:00: mouth [place] 00 daily. Medical Branch atorvastati Yes [id number] 40mg Take 1 Univers n 40 mg 5-12 tablet by ity of tablet 00:00: mouth at [place] 00 bedtime. Medical Branch carvediloL Yes [id number] 37.5mg Take 1.5 Univers 25 mg 5-12 tablets by ity of tablet 00:00: mouth 2 (two) Medical times Branch daily with meals. furosemide 0 Yes [id number] 40mg Take 1 Univers 40 mg 5-12 tablet by ity of tablet 00:00: mouth [place] 00 every Medical morning Branch and evening. lisinopriL 2021-0 Yes [id number] 30mg Take 3 Univers 10 mg 5-12 tablets by ity of tablet 00:00: mouth [place] 00 daily. Medical Branch spironolact 2021-0 Yes [id number] 25mg Take 1 Univers one 25 mg 5-12 tablet by ity o f tablet 00:00: mouth [place] 00 daily. Medical Branch aspirin 81 2021-0 Yes [id number] 81mg Take 1 Univers mg chewable 5-12 tablet by ity of tablet 00:00: mouth [place] 00 daily. Medical Branch atorvastati 0 Yes [id number] 40mg Take 1 Univers n 40 mg 5-12 tablet by ity of tablet 00:00: mouth at [place] 00 bedtime. Medical Branch carvediloL Yes [id number] 37.5mg Take 1.5 Univers 25 mg 5-12 tablets by ity of tablet 00:00: mouth 2 [place] 00 (two) Medical times Branch daily with meals. furosemide Yes [id number] 40mg Take 1 Univers 40 mg 5-12 tablet by ity of tablet 00:00: mouth [place] 00 every Medical morning Branch and evening. lisinopriL Yes [id number] 30mg Take 3 Univers 10 mg 5-12 tablets by ity of tablet 00:00: mouth [place] 00 daily. Medical Branch spironolact Yes [id number] 25mg Take 1 Univers one 25 mg 5-12 tablet by ity o f tablet 00:00: mouth [place] 00 daily. Medical Branch aspirin 81 Yes [id number] 81mg Take 1 Univers mg chewable 5-12 tablet by ity of tablet 00:00: mouth [place] 00 daily. Medical Branch atorvastati Yes [id number] 40mg Take 1 Univers n 40 mg 5-12 tablet by ity of tablet 00:00: mouth at [place] 00 bedtime. Medical Branch carvediloL Yes [id number] 37.5mg Take 1.5 Univers 25 mg 5-12 tablets by ity of tablet 00:00: mouth 2 [place] 00 (two) Medical times Branch daily with meals. furosemide Yes [id number] 40mg Take 1 Univers 40 mg 5-12 tablet by ity of tablet 00:00: mouth [place] 00 every Medical morning Branch and evening. lisinopriL Yes [id number] 30mg Take 3 Univers 10 mg 5-12 tablets by ity of tablet 00:00: mouth [place] 00 daily. Medical Branch spironolact Yes [id number] 25mg Take 1 Univers one 25 mg 5-12 tablet by ity o f tablet 00:00: mouth [place] 00 daily. Medical Branch aspirin 81 0 2021- No [id number] 81mg Take 1 Univers mg chewable 4-19 10-17 tablet by it y of tablet 00:00: 04:59 mouth [place] 00 :00 daily for Medical 180 days. Branch lisinopriL 2021- No [id number] 30mg Take 3 Univers 10 mg 4-19 10-17 tablets by ity of tablet 00:00: 04:59 mouth [place] 00 :00 daily for Medical 180 days. Branch spironolact 2021- No [id number] 25mg Take 1 Univers one 25 mg 4-19 10-17 tablet by ity of tablet 00:00: 04:59 mouth [place] 00 :00 daily for Medical 180 days. Branch aspirin 81 2021- No [id number] 81mg Take 1 Univers mg chewable 4-19 10-17 tablet by it y of tablet 00:00: 04:59 mouth [place] 00 :00 daily for Medical 180 days. Branch lisinopriL 2021- No [id number] 30mg Take 3 Univers 10 mg 4-19 10-17 tablets by ity of tablet 00:00: 04:59 mouth [place] 00 :00 daily for Medical 180 days. Corin spironolact 2021- No [id number] 25mg Take 1 Univers one 25 mg 4-19 10-17 tablet by ity of tablet 00:00: 04:59 mouth [place] 00 :00 daily for Medical 180 days. Branch aspirin 81 2021- No [id number] 81mg Take 1 Univers mg chewable 4-19 10-17 tablet by it y of tablet 00:00: 04:59 mouth [place] 00 :00 daily for Medical 180 days. Branch lisinopriL 2021- No [id number] 30mg Take 3 Univers 10 mg 4-19 10-17 tablets by ity of tablet 00:00: 04:59 mouth [place] 00 :00 daily for Medical 180 days. Branch spironolact 2021- No [id number] 25mg Take 1 Univers one 25 mg 4-19 10-17 tablet by ity of tablet 00:00: 04:59 mouth [place] 00 :00 daily for Medical 180 days. Branch aspirin 81 2021- No [id number] 81mg Take 1 Univers mg chewable 4-19 10-17 tablet by it y of tablet 00:00: 04:59 mouth [place] 00 :00 daily for Medical 180 days. Branch lisinopriL 2021- No [id number] 30mg Take 3 Univers 10 mg 4-19 10-17 tablets by ity of tablet 00:00: 04:59 mouth [place] 00 :00 daily for Medical 180 days. Branch spironolact 2021- No [id number] 25mg Take 1 Univers one 25 mg 4-19 10-17 tablet by ity of tablet 00:00: 04:59 mouth [place] 00 :00 daily for Medical 180 days. Branch aspirin 81 2021- No [id number] 81mg Take 1 Univers mg chewable 4-19 10-17 tablet by it y of tablet 00:00: 04:59 mouth [place] 00 :00 daily for Medical 180 days. Branch lisinopriL 2021- No [id number] 30mg Take 3 Univers 10 mg 4-19 10-17 tablets by ity of tablet 00:00: 04:59 mouth [place] 00 :00 daily for Medical 180 days. Branch spironolact 2021- No [id number] 25mg Take 1 Univers one 25 mg 4-19 10-17 tablet by ity of tablet 00:00: 04:59 mouth [place] 00 :00 daily for Medical 180 days. Branch aspirin 81 2021- No [id number] 81mg Take 1 Univers mg chewable 4-19 10-17 tablet by it y of tablet 00:00: 04:59 mouth [place] 00 :00 daily for Medical 180 days. Branch lisinopriL 2021- No [id number] 30mg Take 3 Univers 10 mg 4-19 10-17 tablets by ity of tablet 00:00: 04:59 mouth [place] 00 :00 daily for Medical 180 days. Branch spironolact 2021- No [id number] 25mg Take 1 Univers one 25 mg 4-19 10-17 tablet by ity of tablet 00:00: 04:59 mouth [place] 00 :00 daily for Medical 180 days. Branch aspirin 81 2021- No [id number] 81mg Take 1 Univers mg chewable 4-19 05-12 tablet by it y of tablet 00:00: 00:00 mouth [place] 00 :00 daily for Medical 180 days. Branch lisinopriL 2021- No [id number] 30mg Take 3 Univers 10 mg 4-19 05-12 tablets by ity of tablet 00:00: 00:00 mouth [place] 00 :00 daily for Medical 180 days. Branch spironolact 2021- No [id number] 25mg Take 1 Univers one 25 mg 08-22 05-12 tablet by ity of tablet 00:00: 00:00 mouth [place] 00 :00 daily for Medical 180 days. Branch carvediloL Yes 37.5mg 37.5 mg, U nivers (COREG) 4-18 Oral, BID ity of tablet 37.5 22:00: MEALS, [place] mg 00 First dose Medical (after Branch last modificati on) on [facility] 08/21/21 at 1700, Until Discontinu ed, Routine lisinopriL Yes 30mg 30 mg, Unive rs (PRINIVIL,Z -18 Oral, ity of ESTRIL) 14:00: DAILY, [place] tablet 30 00 First dose Medi cory mg (after Branch last modificati on) on [facility] 08/21/21 at 0900, Until Discontinu ed, Routine magnesium 2021- No 400mg 400 mg, Uni vers oxide 08-21-18 Oral, ity of (MAG-OX 13:45: 13:20 ONCE, 1 [place] 400) tablet 00 :00 dose, On Medi cory 400 mg [facility] 08/21/21 at 0845, Routine amLODIPine 2021- No 10mg Take 10 mg Univers 10 mg 08-21-18 by mouth ity of tablet 11:33: 00:00 daily. [place] 41 :00 [facility] Branch hydroCHLORO 2021- No 25mg Take 25 mg Univers thiazide 25 08-21-18 by mouth ity of mg tablet 11:33: 00:00 daily. [place] 41 :00 Medical Branch ibuprofen 2021- No 800mg Take 800 Un selma 800 mg 08-21-18 mg by ity of tablet 11:33: 00:00 mouth 2 [place] 41 :00 (two) Medical times Branch daily. hydrALAZINE 2021- No 10mg 10 mg, Uni vers (APRESOLINE 08-21-18 Oral, ity of ) tablet 10 07:00: 06:05 ONCE, 1 [place] mg 00 :00 dose, On Medical [facility] 08/21/21 at 0200, Routine atorvastati 2021- No [id number] 40mg Take 1 Univers n 40 mg 08-21 10-16 tablet by ity of tablet 00:00: 04:59 mouth at [place] 00 :00 bedtime Medical for 180 Branch days. furosemide 2021- No [id number] 40mg Take 1 Univers 40 mg 4-18 10-16 tablet by ity of tablet 00:00: 04:59 mouth [place] 00 :00 every Medical morning Branch and evening for 180 days. carvediloL 2021- No [id number] 37.5mg Take 1.5 Univers 25 mg 4-18 10-16 tablets by ity of tablet 00:00: 04:59 mouth 2 [place] 00 :00 ([facility]) Medical times [place] daily with meals for 180 days. atorvastati 2021- No [id number] 40mg Take 1 Univers n 40 mg 4-18 10-16 tablet by ity of tablet 00:00: 04:59 mouth at [place] 00 :00 bedtime Medical for 180 Branch days. furosemide 2021- No [id number] 40mg Take 1 Univers 40 mg 4-18 10-16 tablet by ity of tablet 00:00: 04:59 mouth [place] 00 :00 every Medical morning Branch and evening for 180 days. carvediloL 2021- No [id number] 37.5mg Take 1.5 Univers 25 mg 4-18 10-16 tablets by ity of tablet 00:00: 04:59 mouth 2 [place] 00 :00 ([facility]) Medical times [place] daily with meals for 180 days. atorvastati 2021- No [id number] 40mg Take 1 Univers n 40 mg 4-18 10-16 tablet by ity of tablet 00:00: 04:59 mouth at [place] 00 :00 bedtime Medical for 180 Branch days. furosemide 2021- No [id number] 40mg Take 1 Univers 40 mg 4-18 10-16 tablet by ity of tablet 00:00: 04:59 mouth [place] 00 :00 every Medical morning Branch and evening for 180 days. carvediloL 2021- No [id number] 37.5mg Take 1.5 Univers 25 mg 4-18 10-16 tablets by ity of tablet 00:00: 04:59 mouth 2 [place] 00 :00 ([facility]) Medical times [place] daily with meals for 180 days. atorvastati 2021- No [id number] 40mg Take 1 Univers n 40 mg 4-18 10-16 tablet by ity of tablet 00:00: 04:59 mouth at [place] 00 :00 bedtime Medical for 180 Branch days. furosemide 2021- No [id number] 40mg Take 1 Univers 40 mg 4-18 10-16 tablet by ity of tablet 00:00: 04:59 mouth [place] 00 :00 every Medical morning Branch and evening for 180 days. carvediloL 2021- No [id number] 37.5mg Take 1.5 Univers 25 mg 4-18 10-16 tablets by ity of tablet 00:00: 04:59 mouth 2 [place] 00 :00 ([facility]) Medical times Branch daily with meals for 180 days. atorvastati 2021- No [id number] 40mg Take 1 Univers n 40 mg 4-18 10-16 tablet by ity of tablet 00:00: 04:59 mouth at [place] 00 :00 bedtime Medical for 180 Branch days. furosemide 2021- No [id number] 40mg Take 1 Univers 40 mg 4-18 10-16 tablet by ity of tablet 00:00: 04:59 mouth [place] 00 :00 every Medical morning Branch and evening for 180 days. carvediloL 2021- No [id number] 37.5mg Take 1.5 Univers 25 mg 4-18 10-16 tablets by ity of tablet 00:00: 04:59 mouth 2 [place] 00 :00 ([facility]) Medical times [place] daily with meals for 180 days. atorvastati 2021- No [id number] 40mg Take 1 Univers n 40 mg 4-18 10-16 tablet by ity of tablet 00:00: 04:59 mouth at [place] 00 :00 bedtime Medical for 180 Branch days. furosemide 2021- No [id number] 40mg Take 1 Univers 40 mg 4-18 10-16 tablet by ity of tablet 00:00: 04:59 mouth [place] 00 :00 every Medical morning Branch and evening for 180 days. carvediloL 2021- No [id number] 37.5mg Take 1.5 Univers 25 mg 4-18 10-16 tablets by ity of tablet 00:00: 04:59 mouth 2 [place] 00 :00 (two) Medical times Branch daily with meals for 180 days. atorvastati 2021- No [id number] 40mg Take 1 Univers n 40 mg -18 05-12 tablet by ity of tablet 00:00: 00:00 mouth at [place] 00 :00 bedtime Medical for 180 Branch days. furosemide 2021- No [id number] 40mg Take 1 Univers 40 mg 4-18 05-12 tablet by ity of tablet 00:00: 00:00 mouth [place] 00 :00 every Medical morning Branch and evening for 180 days. carvediloL 2021- No [id number] 37.5mg Take 1.5 Univers 25 mg 4-18 05-12 tablets by ity of tablet 00:00: 00:00 mouth 2 [place] 00 :00 (two) Medical times Branch daily with meals for 180 days. carvediloL 2021- No [id number] 25mg Take 1 Univers 25 mg -18 -18 tablet by ity of tablet 00:00: 00:00 mouth 2 [place] 00 :00 (two) Medical times Branch daily with meals for 180 days. furosemide Yes 40mg 40 mg, Unive rs (LASIX) 4-17 Oral, ity of tablet 40 14:00: QAM+PM, [place] mg 00 First dose Medical (after Branch last modificati on) on 08/20/21 at 0900, Until Discontinu ed, Routine lisinopriL 2021- No 20mg 20 mg, Univ ers (PRINIVIL,Z 08-2018 Oral, ity of ESTRIL) 14:00: 11:42 DAILY, [place] tablet 20 00 :47 First dose Medi cory mg (after Branch last modificati on) on 08/20/21 at 0900, Until Discontinu ed, Routine carvediloL 2021- No 25mg 25 mg, Univ ers (COREG) 4-18 Oral, BID ity of tablet 25 13:00: 17:46 MEALS, [place] mg 00 :56 First dose Medical (after Branch last modificati on) on 08/20/21 at 0800, Until Discontinu ed, Routine lisinopriL 2021- No 5mg 5 mg, Unive rs (PRINIVIL,Z 4-16 -16 Oral, ity of ESTRIL) 15:00: 14:30 ONCE, 1 [place] tablet 5 mg 00 :00 dose, On Medi cory Sat Branch 08/19/21 at 1000, Routine carvediloL 2021- No 12.5mg 12.5 mg, Univers (COREG) 08-19 Oral, BID ity of tablet 12.5 13:00: 22:39 MEALS, [place] mg 00 :41 First dose Medical (after Branch last modificati on) on 08/19/21 at 0800, Until Discontinu ed, Routine furosemide 2021- No 40mg 40 mg, Univ ers (LASIX) 08-19 Slow IV ity of injection 01:00: 17:31 Push, [place] 40 mg 00 :11 Q12H, Medical First dose Branch on 08/18/21 at 2000, Until Discontinu ed, Routine hydrALAZINE Yes 25mg 25 mg, Univ ers (APRESOLINE -15 Oral, ity of ) tablet 25 21:47: Q6HPRN, [place] mg 07 Starting Medical on Fri Branch 08/18/21 at 1647, Until Discontinu ed, Routine, SBP >180 lisinopriL 2021- No 10mg 10 mg, Univ ers (PRINIVIL,Z -18 08-15 Oral, ity of ESTRIL) 18:15: 18:14 DAILY, 1 [place] tablet 10 00 :00 dose, Medical mg First dose Branch on Sat08/18/21 at 1315, Routine lisinopriL 2021- No 10mg 10 mg, Univ ers (PRINIVIL,Z 08-18-16 Oral, ity of ESTRIL) 16:00: 13:47 DAILY, [place] tablet 10 00 :35 First dose Medi cory mg on Fri Branch 08/18/21 at 1100, Until Discontinu ed, Routine spironolact Yes 25mg 25 mg, Univ ers one 4-15 Oral, ity of (ALDACTONE) 14:00: DAILY, [place] tablet 25 00 First dose Medi cory mg on Fri Branch 08/18/21 at 0900, Until Discontinu ed, Routine aspirin Yes 81mg 81 mg, Univers chewable 4-15 Oral, ity of tablet 81 14:00: DAILY, [place] mg 00 First dose Medical on Sat Branch 08/18/21 at 0900, Until Discontinu ed, Routine furosemide 2021- No 40mg 40 mg, [facility] ers (LASIX) 08-18-15 Oral, ity of tablet 40 14:00: 16:18 QAM+PM, [place] mg 00 :32 First dose Medical on [facility] 08/18/21 at 0900, Until Discontinu ed, Routine amLODIPine 2021- No 10mg 10 mg, [facility] ers (NORVASC) 08-1815 Oral, ity of tablet 10 12:00: 11:05 ONCE, 1 [place] mg 00 :00 dose, On Medical [facility] 08/18/21 at 0700, Routine atorvastati Yes 40mg 40 mg, [facility] ers n (LIPITOR) 4-15 Oral, QHS, it y of tablet 40 02:00: First dose [place] mg 00 on [facility] 08/17/21 at Branch 2100, Until Discontinu ed, Routine heparin Yes 5000U 5,000 Univers (porcine) 4-15 Units, ity of injection 01:00: Subcutaneo [place] 5,000 Units 00 us, Q12H, Med ical First dose Branch on [facility] 08/17/21 at 2000, Until Discontinu ed, Routine hydrALAZINE 2021- No 10mg 10 mg, Uni vers (APRESOLINE 08-17 Oral, ity of ) tablet 10 22:45: 23:51 ONCE, 1 [place] mg 00 :00 dose, On Medical [facility] 08/17/21 at 1745, Routine hydrALAZINE 2021- No 10mg 10 mg, Uni vers (APRESOLINE 08-17 Oral, ity of ) tablet 10 21:45: 21:47 Q6HPRN, [place] mg 54 :24 Starting Medical on [facility] 08/17/21 at 1645, Until Sat08/18/21 at 1647, Routine, SBP >180 sulfur 2021- No [id number] 5mL 5 mL, [facility] ers hexafluorid 08-17 Intravenou i ty of e microsphr 20:45: 20:45 s, ONCE, 1 [place] (LUMASON) 00 :00 dose, On Medica l injection 5 Viktoriya Branch mL 08/17/21 at 1545, Routine
prepared foods service team member approving Restricted medication : DEZ QIU magnesium 2021- No 4g 4 g, IV Univ ers sulfate in 08-17 Piggyback, it y of water 4 18:15: 18:29 ONCE, 1 [place] gram/50 mL 00 :00 dose, On Medic al (8 %) IV Vikt[place]ya Branch Piggyback 4 08/17/21 at g 1315, Routine KCL 2021- No 40meq 40 mEq, Univers (KLOR-CON 08-17 Oral, ity of M20) tablet 18:15: 18:10 ONCE, 1 [place] 40 mEq 00 :00 dose, On Medical [facility] Branch 08/17/21 at 1315, Routine furosemide 2021- No 40mg 40 mg, Univ ers (LASIX) 08-17 Slow IV ity of injection 17:15: 12:42 Push, [place] 40 mg 00 :25 Q12H, Medical First dose Branch on Viktoriya 08/17/21 at 1215, Until Discontinu ed, Routine acetaminoph Yes 650mg 650 mg, Un selma en - Oral, ity of (TYLENOL) 14:09: Q6HPRN, [place] tablet 650 58 Starting Medic al mg on Vikt[facility]ya Branch 08/17/21 at 0909, Until Discontinu ed, Routine, Pain (scale 1-3) amLODIPine Yes 10mg Take 10 mg U nivers 10 mg 4-14 by mouth ity of tablet 09:16: daily. [address] hydroCHLORO Yes 25mg Take 25 mg Univers thiazide 25 4-14 by mouth ity of mg tablet 09:16: daily. [address] ibuprofen Yes 800mg Take 800 Uni vers 800 mg 4-14 mg by ity of tablet 09:16: mouth 2 [place] 15 (two) Medical times Branch daily. Vital Signs Vital Name Observation Time Observation Value Comments Source Systolic blood 2021-12-06 17:40:07 158 mm[Hg] Univer sity of pressure [facility] Diastolic blood 2021-12-06 17:40:07 105 mm[Hg] Unive rsity of pressure [place] [facility] Heart rate 2021-12-06 15:43:00 91 /min Universi ty of [facility] Branch Respiratory rate 2021-12-06 15:43:00 20 /min Univ ersity of [facility] Oxygen saturation in 2021-12-06 15:43:00 97 /min University of Arterial blood by [place] [employer] cory Pulse oximetry Branch Body temperature 2021-12-06 14:49:00 36.61 Anastasiia Univ ersity of [place] [facility] [place] Body height 2021-12-06 14:49:00 182.9 cm Universi ty of [facility] Body weight 2021-12-06 14:49:00 99.791 kg Universi ty of [facility] BMI 2021-12-06 14:49:00 29.84 kg/m2 Universi ty of [facility] Systolic blood 2021-08-21 20:39:00 143 mm[Hg] Univer sity of pressure [place] [facility] Diastolic blood 2021-08-21 20:39:00 104 mm[Hg] Unive rsity of pressure [facility] Heart rate 2021-08-21 20:39:00 79 /min Universi ty of [facility] Body temperature 2021-08-21 20:39:00 36 Anastasiia Univ ersity of [facility] Respiratory rate 2021-08-21 20:39:00 18 /min Univ ersity of [facility] Oxygen saturation in 2021-08-21 20:39:00 99 /min University of Arterial blood by [place] [employer] cory Pulse oximetry Branch Body weight 2021-08-21 10:57:00 104.055 kg Universi ty of [place] [facility] [place] BMI 2021-08-21 10:57:00 31.11 kg/m2 Universi ty of [facility] Body height 2021-08-18 10:31:00 182.9 cm Universi ty of [facility] Procedures Procedure Date / Time Performing Clinician Source Performed NOTICE OF PRIVACY 2021-12-06 14:38:21 Doctor Unassigned, No [facility] CONSENT/REFUSAL FOR 2021-12-06 14:38:03 Doctor Unassigned, No [facility] [place] [facility] Name Medical Branch AUTHORIZATION FOR 2021-09-01 05:01:00 Doctor Unassigned, No [facility] RELEASE OF PHI Name Medical Branch MAGNESIUM 2021-08-21 08:42:[address] [facility] BASIC METABOLIC PANEL 2021-08-21 08:42:00 Supa [facility] (NA, K, CL, CO2, Medical Branch GLUCOSE, BUN, CREATININE, CA) N-TERMINAL PRO-BNP 2021-08-21 08:42:00 Clara [facility] HB ECG ROUTINE & RHYTHM 2021-08-20 13:02:55 Supa [facility] [place] [facility] MAGNESIUM 2021-08-20 09:22:00 Anca [facility] BASIC METABOLIC PANEL 2021-08-20 09:22:00 Anca [facility] (NA, K, CL, CO2, Medical Branch GLUCOSE, BUN, CREATININE, CA) CBC WITH DIFF 2021-08-20 09:22:00 Anca [facility] HB ECG ROUTINE & RHYTHM 2021-08-19 13:08:08 [facility] 2021-08-19 10:21:00 Clara [facility] BASIC METABOLIC PANEL 2021-08-19 10:21:00 Clara [facility] (NA, K, CL, CO2, Medical Branch GLUCOSE, BUN, CREATININE, CA) BASIC METABOLIC PANEL 2021-08-18 19:41:00 Supa [facility] (NA, K, CL, CO2, Medical Branch GLUCOSE, BUN, CREATININE, CA) HB ECG ROUTINE & RHYTHM 2021-08-18 14:50:24 Supa [facility] [place] [facility] MAGNESIUM 2021-08-18 09:10:[address] [facility] BASIC METABOLIC PANEL 2021-08-18 09:10:00 Supa [facility] (NA, K, CL, CO2, Medical Branch GLUCOSE, BUN, CREATININE, CA) CBC WITH DIFF 2021-08-18 09:10:[address] [facility] TROPONIN I 2021-08-17 23:58:[address] [facility] TRANSTHORACIC ECHO (TTE) 2021-08-17 18:53:00 Eryn Cowart [facility] COMPLETE W/ CONTRAST Medical Bra nch PHOSPHORUS 2021-08-17 15:43:[address] [facility] MAGNESIUM 2021-08-17 15:43:[address] [facility] FERRITIN SERUM 2021-08-17 15:43:[address] [facility] TROPONIN I 2021-08-17 15:43:[address] [facility] THYROID STIMULATING 2021-08-17 15:43:00 Supa [facility] HORMONE Medical Branch HEPATIC FUNCTION PANEL 2021-08-17 15:43:00 Supa [facility] ([id number]) (ALB,T.PRO,BILI Medical Branch T,BU/BC,ALT,AST,ALK PHOS) BASIC METABOLIC PANEL 2021-08-17 15:43:00 Supa [facility] (NA, K, CL, CO2, Medical Branch GLUCOSE, BUN, CREATININE, CA) IRON PANEL 2021-08-17 15:43:[address] [facility] CBC WITH DIFF 2021-08-17 15:43:[address] [facility] GLYCOSYLATED HEMOGLOBIN 2021-08-17 15:43:00 Supa [facility] (A[facility]) Medical Branch N-TERMINAL PRO-BNP 2021-08-17 15:43:00 Supa [facility] [place] XR CHEST 1 VW 2021-08-17 15:10:[address] [facility] Encounters Start End Encounter Admission Attending Care Care Encounter Source Date/Time Date/Time Type Type Clinicians Facility Department ID 2022-08-17 2022-08-17 Aime Cota [facility] 1.2.840.114 [id number] Univers 00:00:00 00:00:00 Wissam Y HEALTH 350.1.13.10 i [place] [phone] [facility] [place] 414 Branch 2021-12-06 2021-12-06 Emergency X Tameka NOVOA [facility] ERT [id number] Univers 09:51:00 13:09:00 [facility] [place] [facility] 2021-12-06 2021-12-06 Emergency Tameka Novoa [facility] 1.2.840.114 [id number] Univers 09:51:00 13:09:00 Earlene DAY 350.1.13.10 i ty [place] [phone] [facility] 084 Branch 2021-12-06 2021-12-06 Orders Doctor DARI 1.2.840.114 [id number] Univers 00:00:00 00:00:00 Only Unassigned, KONSTANTIN 350.1.13.10 [place]y [place] [facility] 4.2.7.2.686 [place] as [phone] [facility] [place] 009 Branch 2021-09-14 2021-09-14 Telephone EM Cota 1.2.840.114 [id number] Univers 00:00:00 00:00:00 [facility] HE[facility] 350.1.13.10 i [place] [phone] [facility] [place] 414 Branch 2021-09-12 2021-09-12 Telephone Cipriano [facility] 1.2.840.114 [id number] Univers 00:00:00 00:00:00 [facility] HEALTH 350.1.13.10 [place] [phone] [place] [address] Branch OFFICE BUILDING 2021-09-01 2021-09-01 Telephone REJI Cota 1.2.840.114 [id number] Univers 00:00:00 00:00:00 Wissa Y HEALTH 350.1.13.10 [place] [phone] [place] [address] Branch 2021-09-01 2021-09-01 Orders Doctor DARI 1.2.840.114 [id number] Univers 00:00:00 00:00:00 Only Unassigned, KONSTANTIN 350.1.13.10 [place] [facility] 4.2.7.2.686 [place] [phone] [facility] [place] 009 Branch 2021-08-30 2021-08-30 Telephone EM Cota 1.2.840.114 [id number] Univers 00:00:00 00:00:00 [facility] 350.1.13.10 i ty of [facility] 4.2.7.2.[place] [phone] [facility] [place] 414 Branch 2021-08-22 2021-08-22 Transition Neumann CADavid 1.2.840.114 [id number] Univers 00:00:00 00:00:00 of Care Sherrell PINA 350.1.13.10 it y [place] [id number] [facility] [place] 403 Branch 2021-08-17 2021-08-21 Inpatient U PAGE [facility] [id number] Univers 08:35:00 17:42:00 ARLEYALED ity [facility] 2021-08-17 2021-08-21 [facility] SANDRITA 1 .2.840.114 [id number] Univers 08:35:00 17:42:00 Encounter Dimitrios Abel 350.1.13.1 0 ity of [facility] 4.2.7.2.686 [place] [phone] [facility] [place] 090 Branch 2021-08-18 2021-08-18 Telephone Page [facility] 1.2.840.114 [id number] Univers 00:00:00 00:00:00 Dimitrios Jose Martin Kan HEALTH 350.1.13.10 ity of [facility] 4.2.7.2.[place] [phone] [facility] [place] 414 Branch Results Test Description Test Time Test Comments Results Result Comments Source N-TERMINAL PRO-BNP 2021-08-21 20:17:15 Test Item Value Reference Range Interpretation Comme nts NT-proBNP (test code = 769 pg/mL See_Comment H [Aut omated message] The 7202735843) system which ge nerated this result tra nsmitted reference range : <=125. The reference r beulah was not used to int erpret this result as aida l/abnormal. EBEN (test code = EBEN) Biotin has been reported to cause a negative bias, interpret results relative to patient's use of biotin. Lab Interpretation (test Abnormal code = 45499-8) [facility] METABOLIC PANEL (NA, K, CL, CO2, GLUCOSE, BUN, CREATININE, CA)2021-08-21 10:07:34 Test Item Value Reference Range Interpretation Comments NA (test code = 135 mmol/L 135-145 7149792100) K (test code = 4.4 mmol/L 3.5-5.0 8677088309) CL (test code = 102 mmol/L 98-108 1058833190) CO2 TOTAL (test code = 26 mmol/L 23-31 5604696962) AGAP (test code = 2-16 9894743880) BUN (test code = 27 mg/dL 7-23 H 7767408863) GLUCOSE (test code = 104 mg/dL 70-110 2814434206) CREATININE (test code = 1.49 mg/dL 0.60-1.25 H 2451767731) CALCIUM (test code = 9.0 mg/dL 8.6-10.6 3549368144) eGFR (test code = mL/min/1.73m2 1818222994) EBEN (test code = EBEN) Association of Glomerular Filtration Rate (GFR) and Staging of Kidney Disease* + --+ --+ ------+| GFR (mL/min/1.73 m2) ?| With Kidney Damage ?| ?Without Kidney Damage+ --------+ --------+ +| ?>90 ?| ?Stage one ?| ? Normal ?+ ---+ ---+ -------+| ?60-89 ?| ?Stage two ?| ? Decreased GFR ? + --+ --+ ------+| ?30-59 ?| ?Stage three ?| ? Stage three ? + --+ --+ ------+| ?15-29 ?| ?Stage four ? | ? Stage four ?+ ---+ ---+ -------+| ?<15 (or dialysis) ? ?| ?Stage five ? | ? Stage five ?+ ---+ ---+ -------+ *Each stage assumes the associated GFR level has been in effect for at least three months. ?Stages 1 to 5, with or without kidney disease, indicate chronic kidney disease. Notes: Determination of stages one and two (with eGFR >59mL/min/1.73 m2) requires estimation of kidney damage for at least three months as defined by structural or functional abnormalities of the kidney, manifested by either:Pathological abnormalities or Markers of kidney damage (including abnormalities in the composition of the blood or urine or abnormalities in imaging tests). Lab Interpretation Abnormal (test code = 50297-5) [facility] 10:07:34 Test Item Value Reference Range Interpretation Comments MAGNESIUM (test code = 9394316777) 1.9 mg/dL 1.7-2.4 Lab Interpretation (test code = Normal 69584-3) [facility] (NA, K, CL, CO2, GLUCOSE, BUN, CREATININE, CA)2021-08-20 10:22:59 Test Item Value Reference Range Interpretation Comments NA (test code = 137 mmol/L 135-145 6473671251) K (test code = 4.4 mmol/L 3.5-5.0 9233908008) CL (test code = 102 mmol/L 98-108 3468877167) CO2 TOTAL (test code = 26 mmol/L 23-31 2178320350) AGAP (test code = 2-16 5018888725) BUN (test code = 31 mg/dL 7-23 H 0901130008) GLUCOSE (test code = 119 mg/dL 70-110 H 6188909093) CREATININE (test code = 1.56 mg/dL 0.60-1.25 H 4275841532) CALCIUM (test code = 9.1 mg/dL 8.6-10.6 8529242099) eGFR (test code = mL/min/1.73m2 3785621357) EBEN (test code = EBEN) Association of Glomerular Filtration Rate (GFR) and Staging of Kidney Disease* + --+ --+ ------+| GFR (mL/min/1.73 m2) ?| With Kidney Damage ?| ?Without Kidney Damage+ --------+ --------+ +| ?>90 ?| ?Stage one ?| ? Normal ?+ ---+ ---+ -------+| ?60-89 ?| ?Stage two ?| ? Decreased GFR ? + --+ --+ ------+| ?30-59 ?| ?Stage three ?| ? Stage three ? + --+ --+ ------+| ?15-29 ?| ?Stage four ? | ? Stage four ?+ ---+ ---+ -------+| ?<15 (or dialysis) ? ?| ?Stage five ? | ? Stage five ?+ ---+ ---+ -------+ *Each stage assumes the associated GFR level has been in effect for at least three months. ?Stages 1 to 5, with or without kidney disease, indicate chronic kidney disease. Notes: Determination of stages one and two (with eGFR >59mL/min/1.73 m2) requires estimation of kidney damage for at least three months as defined by structural or functional abnormalities of the kidney, manifested by either:Pathological abnormalities or Markers of kidney damage (including abnormalities in the composition of the blood or urine or abnormalities in imaging tests). Lab Interpretation Abnormal (test code = 86662-0) [facility] [place] [facility] 10:22:59 Test Item Value Reference Range Interpretation Comments MAGNESIUM (test code = 7629715098) 2.1 mg/dL 1.7-2.4 Lab Interpretation (test code = Normal 29296-2) [facility] WITH [id number] 09:42:15 Test Item Value Reference Range Interpretation Comments WBC (test code = See_Comment H [Automated 6175-2) message] The sy stem which generated this result transmitted reference range : 4.20 - 10.70 10*3/?L. The reference range was not used to interpret this result as normal/abnormal . RBC (test code = See_Comment [Automated 055-5) message] The sy stem which generated this result transmitted reference range : 4.26 - 5.52 10*6/?L. The reference range was not used to interpret this result as normal/abnormal . HGB (test code = 13.5 g/dL 12.2-16.4 718-7) HCT (test code = 41.1 % 38.4-49.3 4544-3) MCV (test code = 86.0 fL 81.7-95.6 787-2) MCH (test code = 28.2 pg 26.1-32.7 785-6) MCHC (test code = 32.8 g/dL 31.2-35.0 786-4) RDW-SD (test code = 39.3 fL 38.5-51.6 42922-2) RDW-CV (test code = 12.5 % 12.1-15.4 788-0) PLT (test code = See_Comment H [Automated 777-3) message] The sy stem which generated this result transmitted reference range : 150 - 328 10*3/ ?L. The reference r beulah was not used to interpret this result as normal/abnormal . MPV (test code = 9.3 fL 9.8-13.0 L 90440-8) NRBC/100 WBC (test See_Comment [Automat ed code = 2308757740) message] The system which generated this result transmitted reference range : 0.0 - 10.0 /100 WBCs. The refer ence range was not u sed to interpret th is result as normal/abnormal . NRBC x10^3 (test code <0.01 See_Comment [Auto mated = 4523399616) message] The s ystem which generated this result transmitted reference range : 10*3/?L. The reference range was not used to interpret this result as normal/abnormal . GRAN MAT (NEUT) % 60.5 % (test code = 770-8) IMM GRAN % (test code 0.30 % = 3128404366) LYMPH % (test code = 26.7 % 736-9) MONO % (test code = 8.3 % 5905-5) EOS % (test code = 3.4 % 713-8) BASO % (test code = 0.8 % 706-2) GRAN MAT x10^3(ANC) 7.17 10*3/uL 1.99-6.95 H (test code = 6299609475) IMM GRAN x10^3 (test 0.03 10*3/uL 0.00-0.06 code = 8636639894) LYMPH x10^3 (test code 3.16 10*3/uL 1.09-3.23 = 731-0) MONO x10^3 (test code 0.98 10*3/uL 0.36-1.02 = 742-7) EOS x10^3 (test code = 0.40 10*3/uL 0.06-0.53 711-2) BASO x10^3 (test code 0.10 10*3/uL 0.01-0.09 H = 704-7) Lab Interpretation Abnormal (test code = 27210-1) [facility] METABOLIC PANEL (NA, K, CL, CO2, GLUCOSE, BUN, CREATININE, CA)2021-08-19 10:52:12 Test Item Value Reference Range Interpretation Comments NA (test code = 136 mmol/L 135-145 3063947847) K (test code = 3.8 mmol/L 3.5-5.0 3557729910) CL (test code = 100 mmol/L 98-108 3300971694) CO2 TOTAL (test code = 29 mmol/L 23-31 2745530907) AGAP (test code = 2-16 6459462269) BUN (test code = 32 mg/dL 7-23 H 6886784036) GLUCOSE (test code = 115 mg/dL 70-110 H 6742505987) CREATININE (test code = 1.67 mg/dL 0.60-1.25 H 4084536623) CALCIUM (test code = 9.1 mg/dL 8.6-10.6 5541131318) eGFR (test code = mL/min/1.73m2 5589752794) EBEN (test code = EBEN) Association of Glomerular Filtration Rate (GFR) and Staging of Kidney Disease* + --+ --+ ------+| GFR (mL/min/1.73 m2) ?| With Kidney Damage ?| ?Without Kidney Damage+ --------+ --------+ +| ?>90 ?| ?Stage one ?| ? Normal ?+ ---+ ---+ -------+| ?60-89 ?| ?Stage two ?| ? Decreased GFR ? + --+ --+ ------+| ?30-59 ?| ?Stage three ?| ? Stage three ? + --+ --+ ------+| ?15-29 ?| ?Stage four ? | ? Stage four ?+ ---+ ---+ -------+| ?<15 (or dialysis) ? ?| ?Stage five ? | ? Stage five ?+ ---+ ---+ -------+ *Each stage assumes the associated GFR level has been in effect for at least three months. ?Stages 1 to 5, with or without kidney disease, indicate chronic kidney disease. Notes: Determination of stages one and two (with eGFR >59mL/min/1.73 m2) requires estimation of kidney damage for at least three months as defined by structural or functional abnormalities of the kidney, manifested by either:Pathological abnormalities or Markers of kidney damage (including abnormalities in the composition of the blood or urine or abnormalities in imaging tests). Lab Interpretation Abnormal (test code = 87289-5) [facility] [place] [facility] 10:52:12 Test Item Value Reference Range Interpretation Comments MAGNESIUM (test code = 0987732461) 1.9 mg/dL 1.7-2.4 Lab Interpretation (test code = Normal 39985-2) [facility] [place] [facility] (NA, K, CL, CO2, GLUCOSE, BUN, CREATININE, CA)2021-08-18 21:19:06 Test Item Value Reference Range Interpretation Comments NA (test code = 135 mmol/L 135-145 4709090397) K (test code = 3.9 mmol/L 3.5-5.0 5419814226) CL (test code = 98 mmol/L 98-108 4377421878) CO2 TOTAL (test code = 30 mmol/L 23-31 5991074099) AGAP (test code = 2-16 9352945958) BUN (test code = 29 mg/dL 7-23 H 7382506588) GLUCOSE (test code = 121 mg/dL 70-110 H 9504987697) CREATININE (test code = 1.58 mg/dL 0.60-1.25 H 5453120605) CALCIUM (test code = 8.9 mg/dL 8.6-10.6 8594729161) eGFR (test code = mL/min/1.73m2 8119979754) EBEN (test code = EBEN) Association of Glomerular Filtration Rate (GFR) and Staging of Kidney Disease* + --+ --+ ------+| GFR (mL/min/1.73 m2) ?| With Kidney Damage ?| ?Without Kidney Damage+ --------+ --------+ +| ?>90 ?| ?Stage one ?| ? Normal ?+ ---+ ---+ -------+| ?60-89 ?| ?Stage two ?| ? Decreased GFR ? + --+ --+ ------+| ?30-59 ?| ?Stage three ?| ? Stage three ? + --+ --+ ------+| ?15-29 ?| ?Stage four ? | ? Stage four ?+ ---+ ---+ -------+| ?<15 (or dialysis) ? ?| ?Stage five ? | ? Stage five ?+ ---+ ---+ -------+ *Each stage assumes the associated GFR level has been in effect for at least three months. ?Stages 1 to 5, with or without kidney disease, indicate chronic kidney disease. Notes: Determination of stages one and two (with eGFR >59mL/min/1.73 m2) requires estimation of kidney damage for at least three months as defined by structural or functional abnormalities of the kidney, manifested by either:Pathological abnormalities or Markers of kidney damage (including abnormalities in the composition of the blood or urine or abnormalities in imaging tests). Lab Interpretation Abnormal (test code = 71964-3) [facility] [place] [facility]IC PAN[facility] (NA, K, CL, CO2, GLUCOSE, BUN, CREATININE, CA)2021-08-18 10:04:44 Test Item Value Reference Range Interpretation Comments NA (test code = 135 mmol/L 135-145 2307928848) K (test code = 4.0 mmol/L 3.5-5.0 Slight 6249740912) hemolysis CL (test code = 101 mmol/L 98-108 5537003809) CO2 TOTAL (test code 29 mmol/L 23-31 = 3392945998) AGAP (test code = 2-16 1726219927) BUN (test code = 32 mg/dL 7-23 H Slight 0322080194) hemolysis GLUCOSE (test code = 114 mg/dL 70-110 H 6516602365) CREATININE (test code 1.54 mg/dL 0.60-1.25 H = 1926890856) CALCIUM (test code = 8.8 mg/dL 8.6-10.6 0497096099) eGFR (test code = mL/min/1.73m2 2609626322) EBEN (test code = EBEN) Association of Glomerular Filtration Rate (GFR) and Staging of Kidney Disease* + -----+ --------+ +| GFR (mL/min/1.73 m2) ?| With Kidney Damage ?| ?Without Kidney Damage+ +------- +---- --+| ?>90 ?| ?Stage one ?| ? Normal ?+ ------+ ---------+--------- +| ?60-89 ?| ?Stage two ?| ? Decreased GFR ? + -----+ --------+ +| ?30-59 ?| ?Stage three ?| ? Stage three ? + -----+ --------+ +| ?15-29 ?| ?Stage four ? | ? Stage four ?+ ------+ ---------+--------- +| ?<15 (or dialysis) ? ?| ?Stage five ? | ? Stage five ?+ ------+ ---------+--------- + *Each stage assumes the associated GFR level has been in effect for at least three months. ?Stages 1 to 5, with or without kidney disease, indicate chronic kidney disease. Notes: Determination of stages one and two (with eGFR >59mL/min/1.73 m2) requires estimation of kidney damage for at least three months as defined by structural or functional abnormalities of the kidney, manifested by either:Pathological abnormalities or Markers of kidney damage (including abnormalities in the composition of the blood or urine or abnormalities in imaging tests). Lab Interpretation Abnormal (test code = 51302-0) [facility] 10:04:44 Test Item Value Reference Range Interpretation Comments MAGNESIUM (test code = 6091742176) 2.2 mg/dL 1.7-2.4 Lab Interpretation (test code = Normal 22196-1) [facility] WITH [id number] 09:24:38 Test Item Value Reference Range Interpretation Comments WBC (test code = See_Comment [Automated 2990-2) message] The sy stem which generated this result transmitted reference range : 4.20 - 10.70 10*3/?L. The reference range was not used to interpret this result as normal/abnormal . RBC (test code = See_Comment [Automated 789-8) message] The sy stem which generated this result transmitted reference range : 4.26 - 5.52 10*6/?L. The reference range was not used to interpret this result as normal/abnormal . HGB (test code = 13.5 g/dL 12.2-16.4 718-7) HCT (test code = 40.6 % 38.4-49.3 4544-3) MCV (test code = 85.5 fL 81.7-95.6 787-2) MCH (test code = 28.4 pg 26.1-32.7 785-6) MCHC (test code = 33.3 g/dL 31.2-35.0 786-4) RDW-SD (test code = 39.1 fL 38.5-51.6 09788-8) RDW-CV (test code = 12.6 % 12.1-15.4 788-0) PLT (test code = See_Comment H [Automated 777-3) message] The sy stem which generated this result transmitted reference range : 150 - 328 10*3/ ?L. The reference r beulah was not used to interpret this result as normal/abnormal . MPV (test code = 9.5 fL 9.8-13.0 L 65534-7) NRBC/100 WBC (test See_Comment [Automat ed code = 6196632935) message] The system which generated this result transmitted reference range : 0.0 - 10.0 /100 WBCs. The refer ence range was not u sed to interpret th is result as normal/abnormal . NRBC x10^3 (test code <0.01 See_Comment [Auto mated = 8142582790) message] The s ystem which generated this result transmitted reference range : 10*3/?L. The reference range was not used to interpret this result as normal/abnormal . GRAN MAT (NEUT) % 65.3 % (test code = 770-8) IMM GRAN % (test code 0.20 % = 1304038815) LYMPH % (test code = 23.3 % 736-9) MONO % (test code = 7.0 % 5905-5) EOS % (test code = 3.5 % 713-8) BASO % (test code = 0.7 % 706-2) GRAN MAT x10^3(ANC) 6.63 10*3/uL 1.99-6.95 (test code = 8500134062) IMM GRAN x10^3 (test <0.03 0.00-0.06 code = 7851174392) LYMPH x10^3 (test code 2.36 10*3/uL 1.09-3.23 = 731-0) MONO x10^3 (test code 0.71 10*3/uL 0.36-1.02 = 742-7) EOS x10^3 (test code = 0.35 10*3/uL 0.06-0.53 711-2) BASO x10^3 (test code 0.07 10*3/uL 0.01-0.09 = 704-7) Lab Interpretation Abnormal (test code = 95710-6) [facility]A1C)2021-08-18 02:37:07 Test Item Value Reference Range Interpretation Comments HGB A1C (test code = 5.8 % 4.0-5.7 H 4548-4) EBEN (test code = EBEN) Reference RangesNormal: <5.7%Prediabetes: 5.7 - 6.4%Diabetes: > 6.5% Lab Interpretation (test Abnormal code = 84242-9) [facility] [id number] 01:03:37 Test Item Value Reference Interpretation Comments Range TROPONIN I (test 0.101 ng/mL See_Comment H [Automated code = 7017653502) message] The system which generated this result transmitted reference range : <=0.034. The reference range was not used to interpret this result as normal/abnormal . EBEN (test code = Reference (Normal) EBEN) Range (defined by the 99th percentile reference limit): <= 0.034 ng/mL Note: Cardiac troponin begins to rise 3-4 hours after the onset of ischemia. Repeat in 4-6 hours if the sample was drawn within 3-4 hours of the onset of the symptom and found normal. Diagnosis of myocardial injury is made with acute changes in cTn concentrations with at least one serial sample above the 99th percentile upper reference limit (URL), taken together with the patient's clinical presentation. Biotin has been reported to cause a negative bias, interpret results relative to patient's use of biotin. Lab Interpretation Abnormal (test code = 92411-7) [facility] ([facility]E)2021-08-17 22:14:20 Test Item Value Reference Range Interpretation Comments Ao root annulus (test 3.3 cm code = 7399974722) Ao root diam (test code = 3.30 cm 8379556133) Aortic root (test code = 3.3 cm 7941860317) LA size (test code = 3.7 cm 8452055973) LVOT diameter (test code 2.00 cm = 7348157838) LVIDD (test code = 5.90 cm 8234761883) IVS (test code = 1.26 cm 3387202573) Interventricular Septum 1.26 cm Diastolic Thickness by 2D (test code = 0922986) LVPWD (test code = 1.19 cm 3176899098) PW (test code = 1.19 cm 0.6-1.9 8599319544) EF(Teich) (test code = 46.60 % 7473710637) LVIDS (test code = 4.50 cm 1361452904) FS (test code = 24 % 2367700088) EF - 2D (test code = 46.60 % 52438209) LAV(MOD-sp4) (test code = 65.30 mL 8445127877) MV Peak E Narciso (test code 126.4 cm/s = 6424991844) E wave decelartion time 0.14 s (test code = 4164475209) MV Prop V (test code = 35.00 cm/s 1839976547) LVOT stroke volume (test 45.10 cm3 code = 0942990220) LVOT peak narciso (test code 90.0 cm/s = 3949879100) LVOT mn grad (test code = mmHg 0202194444) AV LVOT peak gradient mmHg (test code = 9462162600) LVOT peak VTI (test code 14.4 cm = 2801067789) LV V1 mean (test code = 63.00 cm/s 8593693944) Aortic valve mean 76.8 cm/s velocity (test code = 1797531457) Ao peak narciso (test code = 125.5 cm/s 1488600746) Ao VTI (test code = 17.0 cm 9948326803) AV area by cont VTI (test 2.6 cm2 code = 0340417278) AV area peak narciso (test 2.2 cm2 code = 2292775951) Ao max PG (test code = 6.30 mm[Hg] 2995130393) AV peak gradient (test mmHg code = 7133868582) AV valve area (test code 2.60 cm2 = 0969187599) AV mean gradient (test mmHg code = 2795075478) TR Peak Narciso (test code = 119.4 cm/s 0454043631) Triscuspid Valve mmHg Regurgitation Peak Gradient (test code = 9013076780) Tapse (test code = 1.95 cm 9936107645) LA volume (BP) (test code 73.5 mL = 4161261468) LAV(MOD-sp2) (test code = 74.00 mL 7577623875) LA Volume Index (BP) 32.5 mL/m2 (test code = 9046696524) LV Diastolic Volume (BP) 232.2 mL (test code = 4574439876) EF(MOD-bp) (test code = 33.10 % 7963751571) LV Systolic Volume (BP) 155.2 mL (test code = 0851402897) SV(MOD-bp) (test code = 76.90 mL 3383879040) EF (test code = 33 % 5239787526) Left Ventricular Stroke 76.9 mL Volume by 2-D Biplane-MOD (test code = 9245442) Radiology Study observation (narrative) (test code = 60082-5) EBEN (test code = EBEN) ?Left?Ventricle: Left ventricle size is normal. There is mild concentric hypertrophy. Severe global hypokinesis present. Severely reduced systolic function with a visually estimated EF of 20 - 25%. There is restrictive diastolic dysfunction. Elevated left ventricular filling pressure. ?Right?Ventricle: Right ventricle is mildly dilated. Normal systolic function. ?Pericardium: The pericardium is normal. No pericardial effusion. Tex Niño MD [facility] Weight BSA (Calculated - sq m) BP Pulse 6' (1.829 m) 230 lb (104.3 kg) 2.3 sq meters 183/126 82 [facility] (55505[facility] (ALB,T.PRO,BILI T,BU/BC,ALT,AST,ALK PHOS)2021-08-17 17:59:20 Test Item Value Reference Range Interpretation Comments TOTAL BILI (test code = 9561902307) 0.4 mg/dL 0.1-1.1 BILI UNCON (test code = 2743269196) 0.4 mg/dL 0.1-1.1 BILI CONJ (test code = 2586127827) 0.0 mg/dL 0.0-0.3 T PROTEIN (test code = 2005142195) 6.4 g/dL 6.3-8.2 ALBUMIN (test code = 4607176408) 3.7 g/dL 3.5-5.0 ALK PHOS (test code = 8239339833) 64 U/L 34-122 ALTv (test code = 1742-6) 39 U/L 5-50 AST(SGOT) (test code = 2162681521) 30 U/L 13-40 Lab Interpretation (test code = Normal 09082-9) [facility] HospitalFERRITIN [id number] 17:21:19 Test Item Value Reference Range Interpretation Comments FERRITIN (test code = 29.7 ng/mL 18.0-464.0 2278739655) EBEN (test code = EBEN) Biotin has been reported to cause a negative bias, interpret results relative to patient's use of biotin. Lab Interpretation (test Normal code = 58635-0) [facility] HospitalTHY[facility]ID STIMULATING [id number] 17:14:24 Test Item Value Reference Range Interpretation Comments TSH (test code = See_Comment [Automated message] 5611677180) The system eegoes generated this result transmitted ref erence range: 0.45 - 4 .70 mIU/L. The refe rence range was not u sed to interpret this result as normal/abnor mal. Lab Interpretation (test Normal code = 99042-9) [facility] HospitalN-TERMINAL [id number] 16:55:55 Test Item Value Reference Range Interpretation Comments NT-proBNP (test code 5070 pg/mL See_Comment H [Autom ated = 9319963718) message] The system which generated this result transmitted reference range : <=125. The reference range was not used to interpret this result as normal/abnormal . EBEN (test code = EBEN) Biotin has been reported to cause a negative bias, interpret results relative to patient's use of biotin. Lab Interpretation Abnormal (test code = 62190-7) [facility] HospitalTROPONIN [id number] 16:55:55 Test Item Value Reference Interpretation Comments Range TROPONIN I (test 0.117 ng/mL See_Comment H [Automated code = 9405686612) message] The system which generated this result transmitted reference range : <=0.034. The reference range was not used to interpret this result as normal/abnormal . EBEN (test code = Reference (Normal) EBEN) Range (defined by the 99th percentile reference limit): <= 0.034 ng/mL Note: Cardiac troponin begins to rise 3-4 hours after the onset of ischemia. Repeat in 4-6 hours if the sample was drawn within 3-4 hours of the onset of the symptom and found normal. Diagnosis of myocardial injury is made with acute changes in cTn concentrations with at least one serial sample above the 99th percentile upper reference limit (URL), taken together with the patient's clinical presentation. Biotin has been reported to cause a negative bias, interpret results relative to patient's use of biotin. Lab Interpretation Abnormal (test code = 34854-2) [facility] HospitalIRON [id number] 16:52:53 Test Item Value Reference Range Interpretation Comments IRON (test code = 6681406884) 51 ug/dL 50-160 TIBC (test code = 7201164909) 298 ug/dL 250-410 % FE SAT (test code = 9525558739) 17 % 20-50 L Lab Interpretation (test code = Abnormal 42859-9) [facility] HospitalMAGNESIUM2022-04-14 16:41:35 Test Item Value Reference Range Interpretation Comments MAGNESIUM (test code = 9734898488) 1.6 mg/dL 1.7-2.4 L Lab Interpretation (test code = Abnormal 33087-2) [facility] HospitalPHOSPHORUS2022-04-14 16:41:35 Test Item Value Reference Range Interpretation Comments PHOSPHORUS (test code = 1184717075) 4.0 mg/dL 2.5-5.0 Lab Interpretation (test code = Normal 91470-5) [facility] METABOLIC PANEL (NA, K, CL, CO2, GLUCOSE, BUN, CREATININE, CA)2021-08-17 16:41:35 Test Item Value Reference Range Interpretation Comments NA (test code = 134 mmol/L 135-145 L 9565756808) K (test code = 3.6 mmol/L 3.5-5.0 5542983829) CL (test code = 99 mmol/L 98-108 8638958345) CO2 TOTAL (test code = 32 mmol/L 23-31 H 7387967048) AGAP (test code = 2-16 4722097587) BUN (test code = 24 mg/dL 7-23 H 5938051109) GLUCOSE (test code = 111 mg/dL 70-110 H 0870107158) CREATININE (test code = 1.60 mg/dL 0.60-1.25 H 6756859103) CALCIUM (test code = 8.8 mg/dL 8.6-10.6 7934569693) eGFR (test code = mL/min/1.73m2 9491108224) EBEN (test code = EBEN) Association of Glomerular Filtration Rate (GFR) and Staging of Kidney Disease* + --+ --+ ------+| GFR (mL/min/1.73 m2) ?| With Kidney Damage ?| ?Without Kidney Damage+ --------+ --------+ +| ?>90 ?| ?Stage one ?| ? Normal ?+ ---+ ---+ -------+| ?60-89 ?| ?Stage two ?| ? Decreased GFR ? + --+ --+ ------+| ?30-59 ?| ?Stage three ?| ? Stage three ? + --+ --+ ------+| ?15-29 ?| ?Stage four ? | ? Stage four ?+ ---+ ---+ -------+| ?<15 (or dialysis) ? ?| ?Stage five ? | ? Stage five ?+ ---+ ---+ -------+ *Each stage assumes the associated GFR level has been in effect for at least three months. ?Stages 1 to 5, with or without kidney disease, indicate chronic kidney disease. Notes: Determination of stages one and two (with eGFR >59mL/min/1.73 m2) requires estimation of kidney damage for at least three months as defined by structural or functional abnormalities of the kidney, manifested by either:Pathological abnormalities or Markers of kidney damage (including abnormalities in the composition of the blood or urine or abnormalities in imaging tests). Lab Interpretation Abnormal (test code = 19656-2) [facility] WITH [id number] 16:00:05 Test Item Value Reference Range Interpretation Comments WBC (test code = See_Comment [Automated 4790-2) message] The sy stem which generated this result transmitted reference range : 4.20 - 10.70 10*3/?L. The reference range was not used to interpret this result as normal/abnormal . RBC (test code = See_Comment L [Automated 789-8) message] The sy stem which generated this result transmitted reference range : 4.26 - 5.52 10*6/?L. The reference range was not used to interpret this result as normal/abnormal . HGB (test code = 12.2 g/dL 12.2-16.4 718-7) HCT (test code = 36.2 % 38.4-49.3 L 4544-3) MCV (test code = 85.8 fL 81.7-95.6 787-2) MCH (test code = 28.9 pg 26.1-32.7 785-6) MCHC (test code = 33.7 g/dL 31.2-35.0 786-4) RDW-SD (test code = 39.5 fL 38.5-51.6 81104-2) RDW-CV (test code = 12.6 % 12.1-15.4 788-0) PLT (test code = See_Comment H [Automated 777-3) message] The sy stem which generated this result transmitted reference range : 150 - 328 10*3/ ?L. The reference r beulah was not used to interpret this result as normal/abnormal . MPV (test code = 9.4 fL 9.8-13.0 L 09735-5) NRBC/100 WBC (test See_Comment [Automat ed code = 2146664610) message] The system which generated this result transmitted reference range : 0.0 - 10.0 /100 WBCs. The refer ence range was not u sed to interpret th is result as normal/abnormal . NRBC x10^3 (test code <0.01 See_Comment [Auto mated = 7011448136) message] The s ystem which generated this result transmitted reference range : 10*3/?L. The reference range was not used to interpret this result as normal/abnormal . GRAN MAT (NEUT) % 65.6 % (test code = 770-8) IMM GRAN % (test code 0.20 % = 8265956557) LYMPH % (test code = 23.8 % 736-9) MONO % (test code = 6.7 % 5905-5) EOS % (test code = 3.2 % 713-8) BASO % (test code = 0.5 % 706-2) GRAN MAT x10^3(ANC) 6.58 10*3/uL 1.99-6.95 (test code = 5720797780) IMM GRAN x10^3 (test <0.03 0.00-0.06 code = 5415486692) LYMPH x10^3 (test code 2.39 10*3/uL 1.09-3.23 = 731-0) MONO x10^3 (test code 0.67 10*3/uL 0.36-1.02 = 742-7) EOS x10^3 (test code = 0.32 10*3/uL 0.06-0.53 711-2) BASO x10^3 (test code 0.05 10*3/uL 0.01-0.09 = 704-7) Lab Interpretation Abnormal (test code = 89125-6) [facility]"
[2023-03-25] MEDS ORDERED: NA CHLORIDE 0.9% 1,000 ML ONE (10:19)
[2023-03-25 10:23] LABS: Absolute Lymphocytes (CBC) 1.4 K/uL (0.7-4.9); Hematocrit 32.5 % (39.6-49.0); Lymphocytes % 8.9 % (15.3-44.8); MCV 83.7 fL (80-100); MPV 7.4 fL (7.6-11.3); Platelets 369 thou/uL (152-406); RBC Red Blood Cell Count 3.88 M/uL (4.33-5.43)
[2023-03-25 10:27] LABS: Protime INR 1.2
--- NOTE | 2023-03-25 10:34 | RAD REPORT ---
EXAM DESCRIPTION: CT - Head C Spine Mpr Wo Con - 03/25/2023 10:20 am CLINICAL HISTORY: Head and neck injury status post fall. Head and neck pain COMPARISON: None. TECHNIQUE: Computed axial tomography of the head and cervical spine was obtained. Sagittal and coronal reconstruction was performed. All CT scans are performed using dose optimization technique as appropriate and may include automated exposure control or mA/KV adjustment according to patient size. FINDINGS: An intracranial bleed is not seen. The ventricles are normal in caliber. No significant hypodensity within the brain. An extra-axial fluid collection is not noted. Fluid within the visualized sinuses and mastoids is not seen A cervical fracture is not visualized. No dislocation is noted. IMPRESSION: No acute intracranial abnormality is seen. A cervical fracture is not visualized. If the patient continues to have symptoms to suggest intracranial /spinal cord pathology then MRI wou ld be recommended
[2023-03-25 10:45] LABS: Specific Gravity 1.007 (1.005-1.030); Urine Bacteria <20 /HPF (<20); Urine Bilirubin NEGATIVE (Negative); Urine Blood 3+ (OVER) (Negative); Urine Clarity Turbid (Clear); Urine Color Light-Yellow (Yellow); Urine Glucose TRACE (Negative); Urine Protein 3+ (Negative); Urine Urobilinogen Normal (Normal)
[2023-03-25 10:49] LABS: Albumin 2.7 g/dL (3.4-5.0); Bilirubin Direct 0.2 mg/dL (0-0.2); Bilirubin Indirect, Calculated 0.6 mg/dL (0.2-0.8); Bilirubin Total 0.8 mg/dL (0.2-1.0); Magnesium 1.7 mg/dL (1.6-2.4); Potassium 3.4 mEq/L (3.5-5.1)
--- NOTE | 2023-03-25 10:51 | RAD REPORT ---
EXAM DESCRIPTION: [facility] Single View03/25/2023 10:25 am CLINICAL HISTORY: Cough COMPARISON: 2021 FINDINGS: The lungs appear clear of acute infiltrate. The heart is mildly to moderately enlarged Upper lobe vessels prominent indicative of pulmonary venous congestion
[2023-03-25 10:56] LABS: Troponin High Sensitivity 211.4 pg/mL (<58.9)
[2023-03-25] MEDS ORDERED: ASPIRIN 81 MG CHEWABLE TABLET ONE (11:36)
[2023-03-25] MEDS ORDERED: LABETALOL HCL 100 MG TAB ONE (11:36)
[2023-03-25] MEDS ORDERED: CEFTRIAXONE 1000 MG/VIAL ONE (11:37)
[2023-03-25] MEDS ORDERED: POTASSIUM 25 MEQ EFFERV TAB ONE (11:37)
[2023-03-25] MEDS ORDERED: MAGNESIUM SULFATE 1 gm IVPB 1 GM/100 ML BAG IV ONE (11:37)
[2023-03-25] MEDS ORDERED: FAMOTIDINE 20 MG/2 ML VIAL IV ONE (11:37)
[2023-03-25] MEDS ORDERED: LABETALOL 20 MG/4ML SYRINGE IV ONE ×2 (11:37→12:51)
--- NOTE | 2023-03-25 11:44 | ER ---
Nurse's Notes [facility] Name: Wagner Padron Age: 38 yrs Sex: Male : 1985 Arrival Date: 03/25/2023 Time: 09:47 Bed 20 [facility] MD: Diagnosis: Alcohol abuse with other alcohol-induced disorders;Essential (primary) hypertension;Dizziness and giddiness;Cardiomegaly;Chronic combined systolic (congestive) and diastolic (congestive) heart failure;Hypo-osmolality and hyponatremia;Hypokalemia;UTI/ Urinary tract infection, site not specified Presentation: 03/25 09:50 Chief complaint: Patient states: "I went to get out of bed this morning, and I fell and mb9 hit the left side of my face. I know it has something to do with my high blood pressure. It made me feel dizzy and out of breath." Pt denies chest pain, LOC, and does not take blood thinners. Coronavirus screen: Vaccine status: Patient reports receiving the 2nd dose of the covid vaccine. Ebola Screen: No symptoms or risks identified at this time. Initial Sepsis Screen: Does the patient meet any 2 criteria? HR > 90 bpm. Does the patient have a suspected source of infection? No. Patient's initial sepsis screen is negative. Risk Assessment: Do you want to hurt yourself or someone else? Patient reports no desire to harm self or others. Onset of symptoms was March 25, 2023. 09:50 Method Of Arrival: Ambulatory 9 09:50 Acuity: HERMELINDA 2 mb9 Triage Assessment: 09:54 General: Appears uncomfortable, Behavior is calm, cooperative. Pain: Denies pain. mb9 Neuro: Reports dizziness. Cardiovascular: Denies chest pain. Respiratory: Reports shortness of breath. GI: Patient currently denies nausea, vomiting. : No signs and/or symptoms were reported regarding the genitourinary system. Derm: Skin is pink, warm \\T\\ dry. Musculoskeletal: Range of motion: intact in all extremities. Historical: - Allergies: 09:53 No Known Allergies; mb9 - Home Meds: 09:53 lisinopril 10 mg Oral tab 1 tab BID [Active]; Furosemide 10mg Oral once daily [Active]; mb9 - PMHx: 09:53 CHF; Gout; High Cholesterol; Hypercholesterolemia; Hypertension; mb9 - PSHx: 09:53 Leg sx; right femur surgery; mb9 - Immunization history:: Adult Immunizations up to date. - Social history:: Smoking status: Patient denies any tobacco usage or history of. Screenin:29 [facility] ED Fall Risk Assessment (Adult) History of falling in the last 3 months, tl4 including since admission No falls in past 3 months (0 pts) Confusion or Disorientation No (0 pts) Intoxicated or Sedated No (0 pts) Impaired Gait No (0 pts) Mobility Assist Device Used No (0 pt) Altered Elimination No (0 pt) Score/Fall Risk Level 0 - 2 = Low Risk Oriented to surroundings, Maintained a safe environment, Educated pt \\T\\ family on fall prevention, incl call for assistance when getting out of bed, Assessed \\T\\ reinforced patient's understanding of fall precautions, Provided non-skid footwear, Hourly rounding (assess needs \\T\\ fall precautionary measures) done, Used ambulatory aids as needed (educated on \\T\\ assisted with), Used gait belt as appropriate. Abuse screen: Denies threats or abuse. Denies injuries from another. Nutritional screening: No deficits noted. Tuberculosis screening: No symptoms or risk factors identified. Assessment: 10:30 General: Appears in no apparent distress. comfortable, Behavior is calm, cooperative. tl4 Pain: Denies pain. Neuro: Reports dizziness, Denies weakness blurred vision difficulty swallowing, paresthesias numbness headache photophobia diplopia. Cardiovascular: Reports lightheadedness, Denies chest pain, diaphoresis, fatigue, nausea, palpitations, shortness of breath, syncope, vomiting. Respiratory: No deficits noted. GI: No deficits noted. : No deficits noted. EENT: No deficits noted. No signs and/or symptoms were reported regarding the EENT system. 10:57 Reassessment: No changes from previously documented assessment. tl4 13:15 Reassessment: Patient appears in no apparent distress at this time. No changes from tl4 previously documented assessment. Patient and/or family updated on plan of care and expected duration. Pain level reassessed. Patient is alert, oriented x 3, equal unlabored respirations, skin warm/dry/pink. Patient denies pain at this time. Patient states feeling better. 13:28 Reassessment: PT OXYGEN SATURATION IS APPROX 86-88% WHILE SLEEPING. PT PLACED ON NC AT tl4 2LPM. 13:47 Reassessment: ATTEMPT TO CALL REPORT. RN IS BUSY, WILL CALL BACK WHEN AVAILABLE. tl4 Vital Signs: 09:50 BP 215 / 143; Pulse 110; Resp 18; Temp 98; Pulse Ox 100% on R/A; Weight 108.86 kg; mb9 Height 6 ft. 0 in. ; 11:00 BP 203 / 142; Pulse 108; Resp 21; Pulse Ox 95% on R/A; Pain 0/10; tl4 11:30 BP 197 / 152; Pulse 110; Resp 22; Pulse Ox 98% on R/A; Pain 0/10; tl4 12:00 BP 217 / 151; Pulse 108; Resp 21; Pulse Ox 95% on R/A; tl4 12:30 BP 171 / 118; Pulse 92; Resp 18; Pulse Ox 96% on R/A; Pain 0/10; tl4 13:00 BP 151 / 100; Pulse 86; Resp 20; Pulse Ox 94% on R/A; Pain 0/10; tl4 13:15 BP 148 / 106; Pulse 87; Resp 15; Pulse Ox 95% on 2 lpm NC; tl4 13:37 BP 142 / 97; Pulse 88; Resp 15; Pulse Ox 96% on 2 lpm NC; tl4 14:07 BP 149 / 111; Pulse 89; Resp 17; Pulse Ox 96% on 2 lpm NC; Pain 0/10; tl4 09:50 Body Mass Index 32.55 (108.86 kg, 182.88 cm) mb9 11:00 Pain Scale: Adult tl4 11:30 Pain Scale: Adult tl4 12:30 Pain Scale: Adult tl4 13:00 Pain Scale: Adult tl4 14:07 Pain Scale: Adult tl4 Jose Coma Score: 11:30 Eye Response: spontaneous(4). Motor Response: obeys commands(6). Verbal Response: tl4 oriented(5). Total: 15. 12:30 Eye Response: spontaneous(4). Motor Response: obeys commands(6). Verbal Response: tl4 oriented(5). Total: 15. ED Course: 09:49 Patient arrived in ED. im 09:51 Baldemar Harden MD is Attending Physician. bernabe 09:53 Triage completed. mb9 09:54 Arm band placed on. mb9 09:58 Laoy Bass is Primary Nurse. tl4 10:10 Inserted saline lock: 20 gauge in right antecubital area, using aseptic technique. tl4 Blood collected. 10:21 CT Head C Spine In Process Unspecified. EDMS 10:25 XRAY Chest (1 view) In Process Unspecified. EDMS 10:26 Basic Metabolic Panel Sent. tl4 10:26 CBC with Diff Sent. tl4 10:26 LFT's Sent. tl4 10:26 Magnesium Sent. tl4 10:26 NT PRO-BNP Sent. tl4 10:26 PT-INR Sent. tl4 10:26 Troponin HS Sent. tl4 10:26 Urinalysis w/ reflexes Sent. tl4 10:31 Provided Education on: IV, medications, CT scan. tl4 10:31 No provider procedures requiring assistance completed. tl4 10:32 Patient has correct armband on for positive identification. Bed in low position. Call tl4 light in reach. Side rails up X 1. 11:25 CT Stone Protocol In Process Unspecified. EDMS 11:42 Jhony Javier is Hospitalizing Provider. bernabe 13:00 Urine Culture Sent. tl4 13:14 Urine Culture Sent. tl4 13:14 Acetaminophen Sent. tl4 13:14 ETOH Level Sent. tl4 13:14 Salicylate Sent. tl4 14:36 Patient admitted, IV remains in place. intact. tl4 Administered Medications: 11:03 Discontinued: ns 0.9% 1000 ml IV at 125 ml/hr continuous bernabe 10:37 Drug: NS 0.9% IV 1000 ml IV at 125 ml/hr continuous Route: IV; Rate: 125 ml/hr; Site: [facility] right antecubital; 12:05 Drug: Aspirin PO Chewable Tablet 162 mg PO once Route: PO; tl4 13:02 Follow up: Response: No adverse reaction tl4 12:07 Drug: Potassium PO Effervescent Tablet 25 mEq PO once; dissolve in 4 ounces of water or tl4 juice Route: PO; 13:03 Follow up: Response: No adverse reaction tl4 12:10 Drug: Labetalol PO 100 mg PO once Route: PO; tl4 13:05 Follow up: Response: No adverse reaction tl4 12:10 Drug: Labetalol IV 20 mg IV at per protocol once over 2 mins Route: IV; Rate: per tl4 protocol; Infused Over: 2 mins; Site: right antecubital; 12:12 Follow up: IV Status: Completed infusion tl4 12:10 Drug: Lisinopril PO 20 mg PO once Route: PO; tl4 13:03 Follow up: Response: No adverse reaction tl4 12:14 Drug: Furosemide IVP 40 mg IVP once; give over 2 minutes Route: IVP; Infused Over: 2 tl4 mins; Site: right antecubital; 13:06 Follow up: Response: No adverse reaction tl4 12:20 Drug: Labetalol IV 20 mg IV at per protocol once over 2 mins Route: IV; Rate: per tl4 protocol; Infused Over: 2 mins; Site: right antecubital; 12:22 Follow up: Response: Blood pressure is lowered; IV Status: Completed infusion tl4 12:25 Drug: Rocephin IV 1 grams IV at per protocol once; Given slow IV push per pharmacy tl4 instructions Route: IV; Rate: per protocol; Infused Over: 5 mins; Site: right antecubital; 12:30 Follow up: Response: No adverse reaction; IV Status: Completed infusion tl4 12:30 Drug: Famotidine IVP 20 mg IVP once; dilute with 10 mL 0.9% NaCl; give over 2 minutes tl4 Route: IVP; Infused Over: 2 mins; Site: right antecubital; 12:32 Follow up: Response: No adverse reaction tl4 12:35 Drug: Thiamine IV 100 mg IV at bolus once Route: IV; Rate: 125 ml/hr; Site: right tl4 antecubital; Delivery: Primary tubing; 12:35 Drug: Banana Bag - (Multivitamin IV 1 amp, NS 0.9% IV 1000 ml, Thiamine IV 100 mg, tl4 foLIC Acid IVPB 1 mg) IV at 125 calculated rate once Route: IV; Rate: 125 calculated rate; Site: right antecubital; Delivery: Primary tubing; 12:35 Drug: Magnesium Sulfate IVPB 1 grams IVPB once over 1 hrs Route: IVPB; Rate: 100 ml/hr; tl4 Infused Over: 1 hrs; Site: right antecubital; Delivery: Primary tubing; 14:03 Follow up: Response: No adverse reaction; IV Status: Completed infusion tl4 13:43 Not Given (MD STATES TO HOLD): [id number] mg IV at per protocol once; administer at a tl4 rate of 2 mg /min Medication: 10:32 VIS not applicable for this client. tl4 Output: 11:45 Urine: 400ml (Voided); Total: 400ml. tl4 12:45 Urine: 1000ml (Voided); Total: 1400ml. tl4 13:30 Urine: 650ml (Voided); Total: 2050ml. tl4 14:08 Urine: 600ml (Voided); Total: 2650ml. tl4 Outcome: 11:43 Decision to Hospitalize by Provider. bernabe 14:34 Admitted to Med/surg accompanied by tech, via stretcher, with oxygen, Report called to tl4 SAMANTHA Adams 14:34 Condition: stable 14:34 Instructed on the need for admit, 14:37 Patient left the ED. tl4 Signatures: Dispatcher [employer] EDBaldemar Stephens MD MD cha Breneman, Niurka Rios RN RN mb9 Rosario Fontanez Toni tl4 Corrections: (The following items were deleted from the chart) 09:54 09:53 Allergies: HTN medication; mb9 mb9 11:11 09:50 Acuity: HERMELINDA 3 mb9 mb9 13:25 12:46 BP 171 / 118; Pulse 92bpm; Pulse Ox 96%; tl4 tl4
--- NOTE | 2023-03-25 11:44 | EDPHYS ---
Physician Documentation [facility] Name: Wagner Padron Age: 38 yrs Sex: Male : 1985 Arrival Date: 03/25/2023 Time: 09:47 Bed 20 Private MD: KENNEY Physician Baldemar Harden HPI: 03/25 11:37 This 38 yrs old Black Male presents to ER via Ambulatory with complaints of High Blood bernabe Pressure, Head Injury With LOC-Adult. 11:37 The patient has elevated blood pressure and discovered this at home. Onset: The bernabe symptoms/episode began/occurred 3 day(s) ago. Modifying factors: The symptoms are aggravated by activity, The symptoms are alleviated by remaining still. Associated signs and symptoms: Pertinent positives: dizziness, headache, lightheadedness, weakness. Severity of symptoms: At its worst the blood pressure was moderate, in the emergency department the blood pressure is unchanged. The patient has experienced similar episodes in the past, multiple times. Historical: - Allergies: 09:53 No Known Allergies; mb9 - Home Meds: 09:53 lisinopril 10 mg Oral tab 1 tab BID [Active]; Furosemide 10mg Oral once daily [Active]; mb9 - PMHx: 09:53 CHF; Gout; High Cholesterol; Hypercholesterolemia; Hypertension; mb9 - PSHx: 09:53 Leg sx; right femur surgery; mb9 - Immunization history:: Adult Immunizations up to date. - Social history:: Smoking status: Patient denies any tobacco usage or history of. ROS: 11:38 Constitutional: Negative for fever, chills, and weight loss, Eyes: Negative for injury, bernabe pain, redness, and discharge, ENT: Negative for injury, pain, and discharge, Neck: Negative for injury, pain, and swelling, Abdomen/GI: Negative for abdominal pain, nausea, vomiting, diarrhea, and constipation, Back: Negative for injury and pain, : Negative for injury, bleeding, discharge, and swelling, MS/Extremity: Negative for injury and deformity, Skin: Negative for injury, rash, and discoloration, Neuro: Negative for headache, weakness, numbness, tingling, and seizure, Psych: Negative for depression, anxiety, suicide ideation, homicidal ideation, and hallucinations, Allergy/Immunology: Negative for hives, rash, and allergies, Endocrine: Negative for neck swelling, polydipsia, polyuria, polyphagia, and marked weight changes, Hematologic/Lymphatic: Negative for swollen nodes, abnormal bleeding, and unusual bruising, 11:38 Cardiovascular: Positive for orthopnea, palpitations, 11:38 Respiratory: Positive for cough, orthopnea, shortness of breath, on exertion. Exam: 11:38 Constitutional: This is a well developed, well nourished patient who is awake, alert, bernabe and in no acute distress. Head/Face: Normocephalic, atraumatic. Eyes: Pupils equal round and reactive to light, extra-ocular motions intact. Lids and lashes normal. Conjunctiva and sclera are non-icteric and not injected. Cornea within normal limits. Periorbital areas with no swelling, redness, or edema. ENT: Nares patent. No nasal discharge, no septal abnormalities noted. Tympanic membranes are normal and external auditory canals are clear. Oropharynx with no redness, swelling, or masses, exudates, or evidence of obstruction, uvula midline. Mucous membranes moist. Neck: Trachea midline, no thyromegaly or masses palpated, and no cervical lymphadenopathy. Supple, full range of motion without nuchal rigidity, or vertebral point tenderness. No Meningismus. Chest/axilla: Normal chest wall appearance and motion. Nontender with no deformity. No lesions are appreciated. Abdomen/GI: Soft, non-tender, with normal bowel sounds. No distension or tympany. No guarding or rebound. No evidence of tenderness throughout. Back: No spinal tenderness. No costovertebral tenderness. Full range of motion. Male : Normal genitalia with no discharge or lesions. Skin: Warm, dry with normal turgor. Normal color with no rashes, no lesions, and no evidence of cellulitis. MS/ Extremity: Pulses equal, no cyanosis. Neurovascular intact. Full, normal range of motion. Neuro: Awake and alert, GCS 15, oriented to person, place, time, and situation. Cranial nerves II-XII grossly intact. Motor strength 5/5 in all extremities. Sensory grossly intact. Cerebellar exam normal. Normal gait. Psych: Awake, alert, with orientation to person, place and time. Behavior, mood, and affect are within normal limits. 11:38 Cardiovascular: Rate: tachycardic, actual rate is 110 bpm, Rhythm: regular, Pulses: no pulse deficits are appreciated, Heart sounds: normal, Edema: is not appreciated, JVD: is noted bilaterally, to 3 cm, 11:38 ECG was reviewed by the Attending Physician. Vital Signs: 09:50 BP 215 / 143; Pulse 110; Resp 18; Temp 98; Pulse Ox 100% on R/A; Weight 108.86 kg; mb9 Height 6 ft. 0 in. ; 11:00 BP 203 / 142; Pulse 108; Resp 21; Pulse Ox 95% on R/A; Pain 0/10; tl4 11:30 BP 197 / 152; Pulse 110; Resp 22; Pulse Ox 98% on R/A; Pain 0/10; tl4 12:00 BP 217 / 151; Pulse 108; Resp 21; Pulse Ox 95% on R/A; tl4 12:30 BP 171 / 118; Pulse 92; Resp 18; Pulse Ox 96% on R/A; Pain 0/10; tl4 13:00 BP 151 / 100; Pulse 86; Resp 20; Pulse Ox 94% on R/A; Pain 0/10; tl4 13:15 BP 148 / 106; Pulse 87; Resp 15; Pulse Ox 95% on 2 lpm NC; tl4 13:37 BP 142 / 97; Pulse 88; Resp 15; Pulse Ox 96% on 2 lpm NC; tl4 14:07 BP 149 / 111; Pulse 89; Resp 17; Pulse Ox 96% on 2 lpm NC; Pain 0/10; tl4 09:50 Body Mass Index 32.55 (108.86 kg, 182.88 cm) mb9 11:00 Pain Scale: Adult tl4 11:30 Pain Scale: Adult tl4 12:30 Pain Scale: Adult tl4 13:00 Pain Scale: Adult tl4 14:07 Pain Scale: Adult tl4 [place] Coma Score: 11:30 Eye Response: spontaneous(4). Motor Response: obeys commands(6). Verbal Response: tl4 oriented(5). Total: 15. 12:30 Eye Response: spontaneous(4). Motor Response: obeys commands(6). Verbal Response: tl4 oriented(5). Total: 15. MDM: 09:51 Patient medically screened. bernabe 11:40 Antibiotic administration: Not indicated. Differential diagnosis: Anemia asthma, bernabe Bronchitis CHF exacerbation, hypertensive crisis, Malignant HTN, CVA, intracerebral hemorrhage, Myocardial Infarction pulmonary edema, Pulmonary Embolism reactive airway disease. Differential diagnosis: cardiac arrhythmia, CVA, generalized weakness, hypovolemia, idiopathic dizziness, near-syncope, vertigo. Immunization status:. Data reviewed: vital signs, nurses notes, lab test result(s), EKG, radiologic studies, CT scan, plain films. Management of patient was discussed with the following: Hospitalist: hospitalist. Independent interpretation of the following test(s) in the Emergency Department EKG: See my EKG interpretation above. Test considered but Not performed: CT: no ct chest ro pe. 03/25 09:52 Order name: Basic Metabolic Panel; Complete Time: 11: [facility] 03/25 09:52 Order name: CBC with Diff; Complete Time: 11: [facility] 03/25 09:52 Order name: LFT's; Complete Time: 11: [facility] 03/25 09:52 Order name: Magnesium; Complete Time: 11: [facility] 03/25 09:52 Order name: NT PRO-BNP; Complete Time: 11: [facility] 03/25 09:52 Order name: PT-INR; Complete Time: 11: [facility] 03/25 09:52 Order name: Troponin HS; Complete Time: 11: [facility] 03/25 09:52 Order name: Urinalysis w/ reflexes; Complete Time: 11: [facility] 03/25 11:00 Order name: Urine Culture [facility] 03/25 11:03 Order name: Osmolality, Serum [facility] 03/25 11:03 Order name: Urine Osmolality [facility] 03/25 11:03 Order name: Urine Sodium Random [facility] 03/25 11:05 Order name: Acetaminophen [facility] 03/25 11:05 Order name: ETOH Level [facility] 03/25 11:05 Order name: Ptt, Activated [facility] 03/25 11:05 Order name: Salicylate [facility] 03/25 11:05 Order name: Urine Drug Screen [facility] 03/25 11:11 Order name: Urine Culture [facility] 03/25 12:39 Order name: Basic Metabolic Panel [facility] 03/25 12:39 Order name: Basic Metabolic Panel [facility] 03/25 12:39 Order name: Basic Metabolic Panel [facility] 03/25 12:39 Order name: Basic Metabolic Panel [facility] 03/25 12:39 Order name: Basic Metabolic Panel [facility] 03/25 12:39 Order name: Basic Metabolic Panel [facility] 03/25 12:39 Order name: CBC with Automated Diff [facility] 03/25 12:39 Order name: CBC with Automated Diff [facility] 03/25 12:39 Order name: CBC with Automated Diff EDMS 03/25 12:39 Order name: CBC with Automated Diff EDMS 03/25 12:39 Order name: CBC with Automated Diff EDMS 03/25 12:39 Order name: CBC with Automated Diff EDMS 03/25 12:39 Order name: Magnesium EDMS 03/25 12:39 Order name: Magnesium EDMS 03/25 12:39 Order name: Magnesium EDMS 03/25 12:39 Order name: Magnesium EDMS 03/25 12:39 Order name: Magnesium EDMS 03/25 12:39 Order name: Magnesium EDMS 03/25 12:39 Order name: Phosphorus EDMS 03/25 12:39 Order name: Phosphorus EDMS 03/25 12:39 Order name: Phosphorus EDMS 03/25 12:39 Order name: Phosphorus EDMS 03/25 12:39 Order name: Phosphorus EDMS 03/25 12:39 Order name: Phosphorus EDMS 03/25 12:39 Order name: Troponin High Sensitivity EDMS 03/25 12:39 Order name: Troponin High Sensitivity EDMS 03/25 12:39 Order name: Troponin High Sensitivity EDMS 03/25 09:52 Order name: XRAY Chest (1 view); Complete Time: 11: [facility] 03/25 09:52 Order name: CT Head C Spine; Complete Time: 11: [facility] 03/25 11:06 Order name: Echo w/ Doppler [facility] 03/25 11:11 Order name: CT Stone Protocol; Complete Time: 12:21 [facility] 03/25 09:52 Order name: EKG; Complete Time: 09:53 [facility] 03/25 12:36 Order name: Delirium Tremens Prophylaxis-IV Meds EDMS 03/25 09:52 Order name: Cardiac monitoring; Complete Time: 10:04 [facility] 03/25 09:52 Order name: EKG - Nurse/Tech; Complete Time: 10:04 [facility] 03/25 09:52 Order name: IV Saline Lock; Complete Time: 10:25 [facility] 03/25 09:52 Order name: Labs collected and sent; Complete Time: 10:25 [facility] 03/25 09:52 Order name: O2 Per Protocol; Complete Time: 09:55 [facility] 03/25 09:52 Order name: O2 Sat Monitoring; Complete Time: 09:55 [facility] 03/25 11:03 Order name: Seizure Precautions; Complete Time: 13:14 bernabe 03/25 11:05 Order name: Seizure Precautions [facility] 03/25 11:44 Order name: Vital Signs; Complete Time: 13:07 [facility] EC:38 Rate is 109 beats/min. Rhythm is regular. QRS Floyd is Normal. OH interval is normal. bernabe QRS interval is normal. QT interval is normal. No Q waves. T waves are Normal. No ST changes noted. Clinical impression: Sinus tachycardia and No evidence of ischemia. Interpreted by me. Reviewed by me. Administered Medications: 11:03 Discontinued: ns 0.9% 1000 ml IV at 125 ml/hr continuous bernabe 10:37 Drug: NS 0.9% IV 1000 ml IV at 125 ml/hr continuous Route: IV; Rate: 125 ml/hr; Site: tl4 right antecubital; 12:05 Drug: Aspirin PO Chewable Tablet 162 mg PO once Route: PO; tl4 13:02 Follow up: Response: No adverse reaction tl4 12:07 Drug: Potassium PO Effervescent Tablet 25 mEq PO once; dissolve in 4 ounces of water or tl4 juice Route: PO; 13:03 Follow up: Response: No adverse reaction tl4 12:10 Drug: Labetalol PO 100 mg PO once Route: PO; tl4 13:05 Follow up: Response: No adverse reaction tl4 12:10 Drug: Labetalol IV 20 mg IV at per protocol once over 2 mins Route: IV; Rate: per tl4 protocol; Infused Over: 2 mins; Site: right antecubital; 12:12 Follow up: IV Status: Completed infusion tl4 12:10 Drug: Lisinopril PO 20 mg PO once Route: PO; tl4 13:03 Follow up: Response: No adverse reaction tl4 12:14 Drug: Furosemide IVP 40 mg IVP once; give over 2 minutes Route: IVP; Infused Over: 2 tl4 mins; Site: right antecubital; 13:06 Follow up: Response: No adverse reaction tl4 12:20 Drug: Labetalol IV 20 mg IV at per protocol once over 2 mins Route: IV; Rate: per tl4 protocol; Infused Over: 2 mins; Site: right antecubital; 12:22 Follow up: Response: Blood pressure is lowered; IV Status: Completed infusion tl4 12:25 Drug: Rocephin IV 1 grams IV at per protocol once; Given slow IV push per pharmacy tl4 instructions Route: IV; Rate: per protocol; Infused Over: 5 mins; Site: right antecubital; 12:30 Follow up: Response: No adverse reaction; IV Status: Completed infusion tl4 12:30 Drug: Famotidine IVP 20 mg IVP once; dilute with 10 mL 0.9% NaCl; give over 2 minutes tl4 Route: IVP; Infused Over: 2 mins; Site: right antecubital; 12:32 Follow up: Response: No adverse reaction tl4 12:35 Drug: Thiamine IV 100 mg IV at bolus once Route: IV; Rate: 125 ml/hr; Site: right tl4 antecubital; Delivery: Primary tubing; 12:35 Drug: Banana Bag - (Multivitamin IV 1 amp, NS 0.9% IV 1000 ml, Thiamine IV 100 mg, tl4 foLIC Acid IVPB 1 mg) IV at 125 calculated rate once Route: IV; Rate: 125 calculated rate; Site: right antecubital; Delivery: Primary tubing; 12:35 Drug: Magnesium Sulfate IVPB 1 grams IVPB once over 1 hrs Route: IVPB; Rate: 100 ml/hr; tl4 Infused Over: 1 hrs; Site: right antecubital; Delivery: Primary tubing; 14:03 Follow up: Response: No adverse reaction; IV Status: Completed infusion tl4 13:43 Not Given (MD STATES TO HOLD): [id number] mg IV at per protocol once; administer at a tl4 rate of 2 mg /min Disposition Summary: 03/25/23 11:43 Hospitalization Ordered Notes: Hospitalization Status: Inpatient Admission bernabe Provider: Jhony Javier cha Location: Telemetry/MedSurg (Inpatient) bernabe Condition: Fair bernabe Problem: new bernabe Symptoms: have improved bernabe Bed/Room Type: Standard bernabe Room Assignment: 207(03/25/23 13:35) dw Diagnosis - Alcohol abuse with other alcohol-induced disorders bernabe - Essential (primary) hypertension bernabe - Dizziness and giddiness bernabe - Cardiomegaly bernabe - Chronic combined systolic (congestive) and diastolic (congestive) heart failure bernabe - Hypo-osmolality and hyponatremia bernabe - Hypokalemia bernabe - UTI/ Urinary tract infection, site not specified bernabe Forms: - Medication Reconciliation Form bernabe - SBAR form bernabe - Leadership Thank You Letter bernabe Signatures: Dispatcher [employer] EDSafia Broderick, RN RN Baldemar Weathers MD MD cha Pinkerton, Shawna sp Breneman, Mary Beth RN RN mb9 Layo Bass tl4 Corrections: (The following items were deleted from the chart) 09:54 09:53 Allergies: HTN medication; [id number] mb9 12:37 12:36 Troponin High Sensitivity ordered. EDMS EDMS 12:39 11:43 bernabe sp 13:09 12:39 207 sp dw 13:35 13:09 229 dw dw
--- NOTE | 2023-03-25 12:04 | RAD REPORT ---
EXAM DESCRIPTION: CT - Stone Protocol - 03/25/2023 11:24 am CLINICAL HISTORY: Abdominal pain. COMPARISON: None. TECHNIQUE: Computed axial tomography of the abdomen pelvis was obtained without oral or IV contrast. Lack of IV and oral contrast limits evaluation of solid organs, appendix, bowel, and vessels. Watt l reformatted images were obtained and reviewed. All CT scans are performed using dose optimization technique as appropriate and may include automated exposure control or mA/KV adjustment according to patient size. FINDINGS: A renal calculus is not seen. An ureteral calculus is not noted. A bladder calculus is not present. No hydronephrosis The liver, spleen, pancreas and adrenals appear grossly normal There is no evidence of diverticulitis. The appendix appears normal Spondylolysis L5 Small umbilical hernia. A small to moderate ventral hernia contains fat several centimeters above the umbilicus Small right inguinal hernia contains fat Multiple small retrocrural lymph nodes IMPRESSION: Negative for a genitourinary calculus Multiple small retrocrural lymph nodes are nonspecific. A followup CT in 3 months recommended to asse ss stability/resolution
[2023-03-25] MEDS ORDERED: ONDANSETRON 4 MG/2 ML VIAL IV PRN (12:24)
[2023-03-25] MEDS ORDERED: HALOPERIDOL LACT 5 MG/ML INJ IM PRN (12:24)
[2023-03-25] MEDS ORDERED: LORazepam 2 MG/ML VIAL IV PRN ×2 (12:24)
[2023-03-25] MEDS ORDERED: lisinopriL 20 MG TAB ONE (12:27)
[2023-03-25] MEDS ORDERED: FUROSEMIDE 40 MG/4 ML VIAL ONE (12:27)
[2023-03-25] MEDS ORDERED: ENOXAPARIN 40 MG/0.4 ML SQ SCH (13:00)
[2023-03-25] MEDS: LORazepam 2 MG/ML VIAL IV SCH ×3 (13:00→21:00)
[2023-03-25] MEDS ORDERED: FOLIC ACID 1 MG, MULTIVITAMINS INJ 10 ML, THIAMINE HCL 100 MG in NA CHLORIDE 0.9% 1,000 ML IV ONE (13:00)
[2023-03-25 13:12] LABS: Barbiturates NEGATIVE (NEGATIVE); Benzodiazepines NEGATIVE (NEGATIVE); Cocaine POSITIVE (NEGATIVE); METHAMPHETAM NEGATIVE (NEGATIVE); Methadone NEGATIVE (NEGATIVE); Opiates NEGATIVE (NEGATIVE); Phencyclidine NEGATIVE (NEGATIVE); THC Cannibis NEGATIVE (NEGATIVE)
--- NOTE | 2023-03-25 13:52 | P.HP ---
Certification for Inpatient Patient admitted to: Observation With expected LOS: >2 Midnights Patient will require the following post-hospital care: None Practitioner: I am a practitioner with admitting privileges, knowledge of patient current condition, hospital course, and medical plan of care. Services: Services provided to patient in accordance with Admission requirements found in Title 42 Section 412.3 of the Code of Federal Regulations Patient History Date of Service: 03/25/23 Reason for admission: Dizziness, fall History of Present Illness: Wagner Padron is a 38-year-old male with past medical history congestive heart failure, gout, high cholesterol, hypertension, who presents to the ED with complaints of high blood pressure and head injury with loss of consciousness after a fall. Wagner reports getting out of bed and falling to the floor this morning. He drove himself to the ED since he does not live far away. His is at work and unavailable to assist. Last night Wagner stated he consumed a 12 pack of beer, alcohol level less than 10 on arrival. Initial vitals BP 215 / 143; Pulse 110; Resp 18; Temp 98; Pulse Ox 100% on R/A. Significant labs WBC 15.2, BUN/creatinine 21/1.42, serum glucose 191, troponin 211.4, BNP 11,231, sodium 124. While in the ED he was given aspirin, Lasix, magnesium, potassium, labetalol, lisinopril, and folic acid. Echo was ordered while in the ED. Wagner will be admitted to hospitalist service for continued evaluation and treatment of hypertensive emergency and alcohol withdrawal. Allergies HTN medication canno recall the nam Allergy (Uncoded 04/23/19 03:36) Nausea/Vomiting Home Medications: Furosemide [Lasix*] 40 mg PO DAILY 90 Days #90 tab 02/07/21 allopurinoL [Allopurinol] 1 tab PO DAILY 03/25/23 lisinopriL [Lisinopril] 1 tab PO DAILY 03/25/23 - Past Medical/Surgical History Diabetic: No -: Hypertension -: Systolic CHF, EF 35%now improved to 55% -: Noncompliance with medication -: right leg surgery Psychosocial/ Personal History: Patient is . 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 [employer] - Family History Father History Unknown: Yes Mother History Unknown: Yes - Social History Alcohol use: Yes CD- Drugs: No Caffeine use: No Review of Systems General: Weakness Eyes: Unremarkable ENT: Unremarkable Respiratory: Unremarkable Cardiovascular: Unremarkable Gastrointestinal: Unremarkable Genitourinary: Unremarkable Musculoskeletal: Unremarkable Integumentary: Unremarkable Neurological: Weakness, Other (fall, dizziness) Lymphatics: Unremarkable Physical Examination - Physical Exam General: Oriented x3, Other (lethargic) HEENT: Atraumatic, Normocephalic, PERRLA Neck: Supple, 2+ carotid pulse no bruit, JVD not distended Respiratory: Clear to auscultation bilaterally, Normal air movement Capillary refill: <2 Seconds Gastrointestinal: Normal bowel sounds, Soft and benign Musculoskeletal: No clubbing, No swelling, No contractures, No erythema Integumentary: No rashes, No breakdown, No significant lesion, No tenderness/swelling Neurological: Normal speech, Normal strength at 5/5 x4 extr, Normal tone - Studies Laboratory Data (last 24 hrs) 03/25/23 03/25/23 03/25/23 10:05 10:05 10:05 WBC 15.20 H Hgb 11.3 L Hct 32.5 L Plt Count 369 PT 13.2 H INR 1.20 Sodium 124 L Potassium 3.4 L BUN 21 H Creatinine 1.42 H Glucose 191 H Magnesium 1.7 Total Bilirubin 0.8 AST 24 ALT 28 Alkaline Phosphatase 70 Assessment and Plan - Plan Assessment and plan Hypertensive emergency BP 203/143 Monitor blood pressure closely Start home medications when appropriate Hydralazine as needed Alcohol abuse/withdrawl Serum alcohol <10 drank 12 beers last night Cessation education Ativan, Haldol as needed Thiamine, folic acid, multivitamin p.o. daily Zofran Congestive heart failure Elevated troponin Troponin 211.4, serial pending BNP 11,231 lasix x1 Hyponatremia Gentle IV fluid, CHF patient Monitor in a.m. lab UTI Rocephin daily Inguinal hernia Small retrocrural lymph node ventral hernia Findings on CT follow up outpatient DVT PPx Lovenox Full code LOS 2 to 3 days Discharge Plan: Home Plan to discharge in: 48 Hours - Advance Directives Does patient have a Living Will: No Does patient have a Durable POA for Healthcare: No Time Spent Managing Pts Care (In Minutes): 55
[2023-03-25] MEDS: INSULIN REGULAR (HUMAN) 100 UNIT/ML SQ SCH ×2 (16:17→21:00)
[2023-03-25 19:24] LABS: Absolute Lymphocytes (CBC) 2.1 K/uL (0.7-4.9); Hematocrit 34.2 % (39.6-49.0); Lymphocytes % 15.1 % (15.3-44.8); MCV 83.9 fL (80-100); MPV 7.4 fL (7.6-11.3); Platelets 377 thou/uL (152-406); RBC Red Blood Cell Count 4.07 M/uL (4.33-5.43)
--- NOTE | 2023-03-25 19:35 | RAD REPORT ---
EXAM DESCRIPTION: RAD - Chest Single View - 03/25/2023 7:31 pm CLINICAL HISTORY: NSTEMI, heart failure Chest pain. COMPARISON: <Comparisons> FINDINGS: Portable technique limits examination quality. Mild pulmonary edema. The heart is mildly prominent size. No displaced fractures. IMPRESSION: Mild pulmonary edema.
[2023-03-25] MEDS ORDERED: FUROSEMIDE 40 MG/4 ML VIAL IV ONE (20:02)
[2023-03-25] MEDS: HEPARIN 5000 UNIT/ML 1 ML VIAL SQ SCH (22:04)
[2023-03-26] MEDS: LORazepam 2 MG/ML VIAL IV SCH ×2 (01:00→06:31)
[2023-03-26] MEDS: MORPHINE 2 MG/ML SYR IV PRN ×4 (04:57→19:46)
[2023-03-26 05:13] VITALS: BMI 31.4
[2023-03-26 07:17] LABS: Absolute Lymphocytes (CBC) 1.4 K/uL (0.7-4.9); Lymphocytes % 10.8 % (15.3-44.8); MCV 85.1 fL (80-100); MPV 7.5 fL (7.6-11.3); Platelets 352 thou/uL (152-406); RBC Red Blood Cell Count 3.87 M/uL (4.33-5.43)
[2023-03-26] MEDS: INSULIN REGULAR (HUMAN) 100 UNIT/ML SQ SCH ×4 (07:30→21:36)
[2023-03-26 07:32] LABS: Magnesium 2.3 mg/dL (1.6-2.4); Phosphorus 3.5 mg/dL (2.5-4.9); Potassium 3.4 mEq/L (3.5-5.1)
[2023-03-26] MEDS: MULTIVITAMIN TAB PO SCH (08:03)
[2023-03-26] MEDS: FOLIC ACID 1 MG TABLET PO SCH (08:03)
[2023-03-26] MEDS: HYDRALAZINE HCL 20 MG/ML VIAL IV PRN ×3 (08:04→23:53)
[2023-03-26] MEDS: HEPARIN 5000 UNIT/ML 1 ML VIAL SQ SCH ×2 (08:04→21:37)
[2023-03-26] MEDS: allopurinoL 100 MG TAB PO SCH (09:00)
[2023-03-26] MEDS ORDERED: CEFTRIAXONE 1,000 MG in NA CHLORIDE 0.9% 50 ML IVPB SCH (09:00)
[2023-03-26] MEDS ORDERED: POTASSIUM CL SA 10 MEQ TAB PO ONE (09:00)
[2023-03-26] MEDS ORDERED: COLCHICINE 0.6 MG TAB PO ONE (09:33)
[2023-03-26] MEDS ORDERED: DESMOPRESSIN 4 MCG/ML AMP SQ ONE (09:40)
[2023-03-26] MEDS: D5W 500 ML IV SCH (11:28)
[2023-03-26] MEDS: D5W 1,000 ML IV SCH ×4 (11:32→22:54)
[2023-03-26] MEDS: THIAMINE HCL 100 MG TABLET PO SCH (12:15)
--- NOTE | 2023-03-26 13:39 | P.PN ---
Date of Service: 03/26/23 Subjective: C/O bilateral lower extremity pain he attributes to gout pain ROS: 10 point ROS as noted above, otherwise negative Physical exam GEN: Alert, oriented, NAD HEENT: Normal conjunctiva, sclera anicteric CV: Regular rate and rhythm, no edema Pulm: Nonlabored respirations on room air ABD: Soft, nontender, nondistended MSK: No joint tenderness Integumentary: No rashes Neuro: Normal speech, normal affect Vitals reviewed Problem List Hypertensive emergency Improving, still elevated, working to confirm home meds Monitor blood pressure closely Hydralazine as needed cardiology consult/nephrology consult Alcohol abuse/withdrawl Serum alcohol <10 recently drank 12 beers monitor for signs of withdrawal Thiamine, folic acid, multivitamin p.o. daily Chronic systolic congestive heart failure Elevated troponin, downtrending echo/cardiology consult does not appear grossly overloaded Hyponatremia Overcorrected, seen by nephrology, given DDVAP x1 and D5W Repeat labs 1400 mgmt per nephrology UTI Rocephin daily Inguinal hernia Small retrocrural lymph node ventral hernia Findings on CT follow up outpatient VTE: Lovenox Code: Full Dispo: 48 hours Time Spent Managing Pts Care (In Minutes): 35 <Connor Naidu - Last Filed: 03/26/23 13:35> Patient seen and examined on rounds this morning. Plan of care discussed with [employer] TENDER Evangelista. Agree with plan as noted above with the following additions/corrections: ongoing pain of right foot, h/o gout BP better yesterday, trending up again today adjust meds trop trending down, denies chest pain trial of steroid nephrology following sodium overcorrected repeat labs in AM <Fazal Cortes - Last Filed: 03/26/23 17:44>
[2023-03-26] MEDS ORDERED: HYDROCODONE/APAP 7.5/325 MG TAB PO ONE (13:45)
[2023-03-26] MEDS ORDERED: LABETALOL 20 MG/4ML SYRINGE IV ONE (15:05)
[2023-03-26] MEDS ORDERED: METHYLPREDNISOLONE 40 MG INJ IV ONE (15:05)
[2023-03-26 15:56] LABS: Magnesium 1.9 mg/dL (1.6-2.4); Phosphorus 2.3 mg/dL (2.5-4.9); Thyroid Stimulating Hormone 0.956 uIU/mL (0.358-3.740); Uric Acid 8.6 mg/dL (3.5-7.2)
[2023-03-26] MEDS: METOPROLOL TAR 50 MG TAB PO SCH (16:47)
[2023-03-26] MEDS: POTASS/SODIUM PHOSPHATE 1 PKT POWD.PACK PO SCH ×3 (17:37→19:46)
[2023-03-26 17:42] LABS: Potassium 4.1 mEq/L (3.5-5.1); Uric Acid 8.2 mg/dL (3.5-7.2)
[2023-03-26] MEDS: HYDROCODONE/APAP 5/325 MG TAB PO PRN ×2 (17:55→23:54)
[2023-03-26] MEDS: predniSONE 10 MG TAB PO SCH (21:36)
--- NOTE | 2023-03-27 00:40 | CON ---
Date of Consultation: 03/26/2023 Chief Complaint: Hyponatremia, hypo-osmolar state. Acute kidney injury. Hypokalemia, hypophosphatemia. Severe hypertension. History Of Present Illness: The patient is admitted to the hospital because of dizziness and status post fall. The patient was found to have severe uncontrolled hypertension. He has history of hypertension, gout, hypercholesterolemia, and congestive heart failure. The patient came to emergency room because of complaints of high blood pressure and head injury with loss of consciousness after he fell on the ground. The patient recalled getting out of the bed and falling on the floor yesterday. Subsequently, he was admitted to the hospital. He was found to have hyponatremia and sodium level was 124. The patient was treated for hypertensive emergency. Blood pressure was severely elevated up to 215/83. The patient is complaining of some pain in the lower extremity. He has history of gout and recently, he developed gout flare. Review of Systems: Constitutional: Denies fever, chills. Eyes: Denies vision changes. Ears, Nose, Mouth, and Throat: Denies sore throat, earache. Respiratory: Denies chest pain, palpitation. GI: Denies nausea, vomiting. : Denies dysuria, hematuria. Extremity : complaints of right ankle and foot pain All other systems reviewed and all are negative. Past Medical History: Congestive heart failure; hypertension; systolic dysfunction; ejection fraction previously was 35 and then it improved to 55, gout, hyperlipidemia Family History: Father, history unknown. Mother, history unknown. Social History: Denies tobacco, caffeine. He drinks alcohol occasionally. Physical Examination: General: The patient is awake, alert, follows commands. Eyes: Anicteric sclerae. EOMI. Ears, Nose, Mouth, and Throat: Oral mucosa moist. No pallor. Neck: Supple. No bruits. Lungs: Diminished breath sounds at bases. Heart: S1, S2. Abdomen: Soft, benign. Extremities: No edema, tenderness over right foot and right ankle Laboratory Work: WBC 15.2, hemoglobin 11.3, hematocrit 32.5, sodium 124, potassium 3.4, BUN 21, creatinine 1.42, glucose 191, magnesium 1.7, AST and ALT within normal limits. Impression And Plan: The patient presented to the hospital because of generalized weakness and status post fall. He was found to have severely elevated blood pressure. Treatment was started in ED for possible alcohol abuse and withdrawal. Serum alcohol was less than 10. Apparently, the patient drank 12 beers previous night. 1. Patient was found to have hyponatremia, hypokalemia, hypophosphatemia. The patient will continue treatment for hypokalemia with potassium chloride. Plan is to monitor magnesium and phosphorus level and treat electrolytes abnormality according to lab results. Patient developed severe hyponatremia due to multiple causes including high ADH state secondary to pain. Low solute intake and recent alcohol consumption is contributory to hyponatremia. 2. The patient was found to have elevated troponin and elevated BNP. He received IV Lasix for congestive heart failure exacerbation . Recommend cardiology consult to evaluate for acute coronary syndrome. Further recommendations from primary team and cardiology. 3. Hyponatremia. Gentle hydration with fluids previously was ordered and patient developed over-correction. Plan is to give DDAVP with infusion of D5W to treat overly rapid hyponatremia correction. The patient received DDAVP and and infusion with D5W, lab work will be done to assess his sodium level and adjust medication as needed. 4. Urinary tract infection. The patient is on Rocephin daily. Monitor urine culture and adjust antibiotic according to urine culture. 5. Elevated BUN and creatinine , acute on chronic kidney injury in setting of chronic cardiorenal syndrome and and hypertensive emergency. Ct scan did not show hydronephrosis. There is no evidence of obstructive uropathy. 6. Hematuria microscopic associated with proteinuria, ANCA was ordered to evaluate for possible RPGN. Plan is to check UPEP with IF in view of proteinuria. Renal US with renal artery doppler will be done to rule out renal artery stenosis and evaluate for kidney size and echogenecity. 7. Acute on chronic kidney injury versus chronic kidney disease, etiology likely due to hypertensive kidney disease, work-up started to evaluate for possible nephritis, patient may need renal biopsy when blood pressure is controlled and urinary tract infection resolves. EB/MODL Voice ID: [id number] Report ID: [id number] BONG
[2023-03-27 04:15] LABS: Absolute Lymphocytes (CBC) 0.8 K/uL (0.7-4.9); Hematocrit 32.6 % (39.6-49.0); Lymphocytes % 4.8 % (15.3-44.8); MCV 86.7 fL (80-100); MPV 8.1 fL (7.6-11.3); Platelets 440 thou/uL (152-406); RBC Red Blood Cell Count 3.76 M/uL (4.33-5.43)
[2023-03-27 04:41] LABS: Magnesium 2.3 mg/dL (1.6-2.4); Phosphorus 2.5 mg/dL (2.5-4.9)
[2023-03-27 04:50] LABS: Hepatitis B Surface Ab - Quant 4.34 mIU/mL (<8.0)
[2023-03-27 04:56] LABS: Blood Morphology Comment NOT SEEN (NOT SEEN); Platelet Estimate ADEQ
[2023-03-27] MEDS: METOPROLOL TAR 50 MG TAB PO SCH ×2 (05:33→18:31)
[2023-03-27] MEDS: INSULIN REGULAR (HUMAN) 100 UNIT/ML SQ SCH ×4 (07:30→20:27)
[2023-03-27] MEDS: THIAMINE HCL 100 MG TABLET PO SCH (08:19)
[2023-03-27] MEDS: MULTIVITAMIN TAB PO SCH (08:19)
[2023-03-27] MEDS: allopurinoL 100 MG TAB PO SCH (08:19)
[2023-03-27] MEDS: predniSONE 10 MG TAB PO SCH ×2 (08:19→20:27)
[2023-03-27] MEDS: FOLIC ACID 1 MG TABLET PO SCH (08:19)
[2023-03-27] MEDS: POTASS/SODIUM PHOSPHATE 1 PKT POWD.PACK PO SCH ×2 (08:20→10:00)
[2023-03-27] MEDS: HEPARIN 5000 UNIT/ML 1 ML VIAL SQ SCH ×2 (08:20→20:27)
[2023-03-27] MEDS: HYDROCODONE/APAP 5/325 MG TAB PO PRN ×2 (08:24→16:22)
[2023-03-27] MEDS ORDERED: COLCHICINE 0.6 MG TAB PO ONE (08:40)
--- NOTE | 2023-03-27 09:32 | P.PN ---
Date of Service: 03/27/23 Subjective: Pain in right foot improved No acute events overnight Feeling a little short of breath today ROS: 10 point ROS as noted above, otherwise negative Physical exam GEN: Alert, oriented, NAD HEENT: Normal conjunctiva, sclera anicteric CV: Regular rate and rhythm, no edema Pulm: Nonlabored respirations on room air ABD: Soft, nontender, nondistended MSK: No joint tenderness, right foot swollen, tender Integumentary: No rashes Neuro: Normal speech, normal affect Vitals reviewed Problem List Hypertensive emergency Improving, still elevated, working to confirm home meds Reports blood pressure is always high, usually 200s when he has it checked Restarted metoprolol, Discussed medication compliance/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 daily Chronic systolic congestive heart failure Elevated troponin, downtrending echo/cardiology consult does not appear grossly overloaded Await echo, may need some diuresis after IVF Hyponatremia DONATO Improving, initially overcorrected Renal function worse today, nephrology following repeat chemistry 1400 UTI no urinary symptoms, rocephin discontinued Inguinal hernia Small retrocrural lymph node ventral hernia Findings on CT follow up outpatient VTE: Lovenox Code: Full Dispo: 24-48 hours Time Spent Managing Pts Care (In Minutes): 35
--- NOTE | 2023-03-27 12:43 | ECHO ---
HEIGHT: 6 ft 0 in WEIGHT: 231 lb 12.8 oz DATE OF STUDY: 03/26/[address]: Baldemar Harden MD 2-DIMENSIONAL: YES M.MODE: YES DOPPLER: YES COLOR FLOW: YES TDS: PORTABLE: YES DEFINITY: BUBBLE STUDY: DIAGNOSIS: CONGESTIVE HEART FAILURE CARDIAC HISTORY: CATHERIZATION: NO SURGERY: NO PROSTHETIC VALVE: NO PACEMAKER: NO MEASUREMENTS (cm) DIASTOLIC (NORMALS) SYSTOLIC (NORMALS) IVSd 1.3 (0.6-1.2) LA Diam 3.6 (1.9-4.0) LVEF 42% LVIDd 5.8 (3.5-5.7) LVIDs 4.6 (2.0-3.5) %FS 21% LVPWd 1.5 (0.6-1.2) Ao Diam 3.3 (2.0-3.7) 2 DIMENSIONAL ASSESSMENT: RIGHT ATRIUM: NORMAL LEFT ATRIUM: MILD TO MODERATELY DILATED RIGHT VENTRICLE: NORMAL LEFT VENTRICLE: MILDLY REDUCED, EJECTION FRACTION 40-45% TRICUSPID VALVE: NORMAL MITRAL VALVE: MILD MITRAL REGURGITATION PULMONIC VALVE: NORMAL AORTIC VALVE: NORMAL PERICARDIAL EFFUSION: NONE AORTIC ROOT: NORMAL LEFT VENTRICULAR WALL MOTION: MILD TO MODERATE LEFT VENTRICULAR HYPERTROPHY, MILD HYPOKINESIS DOPPLER/COLOR FLOW: COMMENTS: 1. MILD TO MODERATELY DILATED LEFT VENTRICLE 2. LEFT VENTRICULAR EJECTION FRACTION 40-45%, MILDLY REDUCED 3. MILD MITRAL REGURGITATION 4. MILD TO MODERATE LEFT VENTRICULAR HYPERTROPHY, 5. MILD HYPOKINESIS TECHNOLOGIST: PALMER MOTA
[2023-03-27] MEDS ORDERED: LORazepam 2 MG/ML VIAL IV SCH (13:00)
--- NOTE | 2023-03-27 14:16 | RAD REPORT ---
EXAM DESCRIPTION: Nathan Single View03/27/2023 2:08 pm CLINICAL HISTORY: Shortness of breath COMPARISON: March 25, 2023 FINDINGS: Mild bilateral pulmonary opacities appear resolved. Heart is moderately enlarged. Pulmonary vascular congestion present IMPRESSION: Pulmonary vascular congestion. Resolution in the bilateral pulmonary opacities
[2023-03-27] MEDS: HYDRALAZINE HCL 20 MG/ML VIAL IV PRN (16:22)
[2023-03-27] MEDS: D5W 500 ML IV SCH (16:28)
--- NOTE | 2023-03-27 16:57 | EKG ---
Test Date: 2023-03-25 Test Time: 10:01:19 Car Stereo Installer: CLAU MEASUREMENT RESULTS: Intervals: Rate: 109 HI: 152 QRSD: 106 QT: 370 QTc: 498 [place]: P: 76 HI: 152 QRS: -22 T: 177 INTERPRETIVE STATEMENTS: Sinus tachycardia Biatrial enlargement Left ventricular hypertrophy with repolarization abnormality Abnormal ECG Compared to ECG 11/14/2022 07:55:04 Sinus rhythm no longer present Prolonged QT interval no longer present Electronically Signed On 03-27-23 16:52:18 SOCIAL SERVICES TECHNICIAN by Hubert Parson
--- NOTE | 2023-03-27 18:47 | P.PN ---
Subjective Date of Service: 03/27/23 Chief Complaint: Dizziness, fall Subjective: No new changes Physical Examination - Vital Signs Temperature: 98.2 F Blood Pressure: 183/119 Pulse: 86 Respirations: 25 Pulse Ox (%): 99 - Physical Exam General: Other (appears as his stated age) HEENT: Atraumatic, Normocephalic Neck: Supple Respiratory: Other (symmetric chest expansion) Cardiovascular: No rubs, No murmurs Gastrointestinal: Soft and benign, No guarding Musculoskeletal: No clubbing Integumentary: No warmth Neurological: Normal tone Urinary: Other (no bladder distention) External genitalia: Deferred Rectal: Deferred - Studies Microbiology Data (last 24 hrs): 03/25/23 10:11 Clean Catch Urine [place] Count - Final No growth. 03/25/23 10:11 Clean Catch Urine - Final No growth. Assessment And Plan - Plan # DONATO likely 2/2 prererenal state on CKD Serum creatinine 1.4 on adm, increased to 1.9, improved sl. to 1.8 Baseline SCr 1.4-1.6 Urinalysis showed proteinuria, hematuria, and pyuria. Urine culture negative. Antibiotics discontinued. No UTI. CT A/P showed unremarkable KUB [place] by mouth fluid intake # Hyponatremia Serum sodium 124 on adm, today at 131 Encourage by mouth solid food intake # Hypokalemia, hypophosphatemia Electrolyte repletion prn # ETOH intoxication/withdrawal CIWA protocol # Generalized weakness, mechanical fall PT/OT # Accelerated hypertension Hx of chronic systolic HF TTE on 03/26/2023 showed LVEF 40-45% BP meds adjusted
[2023-03-27] MEDS: MORPHINE 2 MG/ML SYR IV PRN (20:45)
[2023-03-27] MEDS: D5W 1,000 ML IV SCH (21:40)
[2023-03-28] MEDS: HYDROCODONE/APAP 5/325 MG TAB PO PRN ×2 (03:01→17:15)
[2023-03-28] MEDS: HYDRALAZINE HCL 20 MG/ML VIAL IV PRN ×2 (03:26→11:16)
[2023-03-28 03:33] LABS: Absolute Lymphocytes (CBC) 1.6 K/uL (0.7-4.9); Hematocrit 35.6 % (39.6-49.0); MCV 87.6 fL (80-100); Platelets 537 thou/uL (152-406); RBC Red Blood Cell Count 4.07 M/uL (4.33-5.43)
[2023-03-28 04:11] LABS: Magnesium 2.2 mg/dL (1.6-2.4); Phosphorus 2.6 mg/dL (2.5-4.9); Potassium 4.3 mEq/L (3.5-5.1)
[2023-03-28] MEDS: D5W 500 ML IV SCH (04:47)
[2023-03-28] MEDS: METOPROLOL TAR 50 MG TAB PO SCH ×2 (05:06→17:15)
[2023-03-28] MEDS: INSULIN REGULAR (HUMAN) 100 UNIT/ML SQ SCH ×4 (07:30→20:23)
[2023-03-28] MEDS: predniSONE 10 MG TAB PO SCH ×2 (08:49→20:23)
[2023-03-28] MEDS: MULTIVITAMIN TAB PO SCH (08:49)
[2023-03-28] MEDS: AMLODIPINE 10 MG TAB PO SCH ×2 (08:49→09:00)
[2023-03-28] MEDS: FOLIC ACID 1 MG TABLET PO SCH (08:50)
[2023-03-28] MEDS: allopurinoL 100 MG TAB PO SCH (08:50)
[2023-03-28] MEDS: THIAMINE HCL 100 MG TABLET PO SCH (08:50)
[2023-03-28] MEDS: HEPARIN 5000 UNIT/ML 1 ML VIAL SQ SCH ×2 (08:52→20:23)
--- NOTE | 2023-03-28 09:40 | P.PN ---
Date of Service: 03/28/23 Subjective: Pain in right foot improved No acute events overnight Feeling a little short of breath today ROS: 10 point ROS as noted above, otherwise negative Physical exam GEN: Alert, oriented, NAD HEENT: Normal conjunctiva, sclera anicteric CV: Regular rate and rhythm, no edema Pulm: Nonlabored respirations on room air ABD: Soft, nontender, nondistended MSK: No joint tenderness, right foot swollen, tender Integumentary: No rashes Neuro: Normal speech, normal affect Vitals reviewed Problem List Hypertensive emergency Improving, still elevated, metoprolol 100 mg p.o. twice daily continued as home medication Added amlodipine 10 mg daily Avoiding HCTZ given gout, consider additional agents including MINA/ARB will need clearance with nephrology first Reports blood pressure is always high, usually 200s when he has it checked Hydralazine as needed Reviewed case with cardiology who recommends getting better control of blood pressure, outpatient stress test Alcohol abuse/withdrawl Serum alcohol <10 recently drank 12 beers Does not drink regularly monitor for signs of withdrawal Thiamine, folic acid, multivitamin p.o. daily Chronic systolic congestive heart failure Elevated troponin, downtrending Cardiology believes troponin leak from hypertensive emergency Recommends outpatient stress test once better controlled Hyponatremia DONATO Improving, initially overcorrected, improving sodium 132 today Renal function improved overnight, similar to baseline Nephrology following UTI no urinary symptoms, urine culture with no growth, Rocephin discontinued Inguinal hernia Small retrocrural lymph node ventral hernia Findings on CT follow up outpatient VTE: Lovenox Code: Full Dispo: 24-48 hours Time Spent Managing Pts Care (In Minutes): 35
[2023-03-28 13:15] LABS: UR PROTEIN 147.9 mg/dL (<11.9); Urine Protein/Creatinine Ratio 1.45 ratio (<0.15)
[2023-03-28] MEDS ORDERED: lisinopriL 10 MG TAB PO ONE (14:43)
[2023-03-28] MEDS ORDERED: HYDRALAZINE HCL 20 MG/ML VIAL IV PRN (14:52)
--- NOTE | 2023-03-28 16:49 | P.PN ---
Subjective Date of Service: 03/28/23 Chief Complaint: Dizziness, fall Subjective: No new changes Physical Examination - Vital Signs Temperature: 98.7 F Blood Pressure: 170/104 Pulse: 92 Respirations: 22 Pulse Ox (%): 97 - Physical Exam General: Other (appears as his stated age) HEENT: Atraumatic, Normocephalic Neck: Supple Respiratory: Other (symmetric chest expansion) Cardiovascular: No rubs, No murmurs Gastrointestinal: Soft and benign, No rebound Musculoskeletal: No clubbing Integumentary: No warmth Neurological: Normal tone Urinary: Other (no bladder distention) External genitalia: Deferred Rectal: Deferred Assessment And Plan - Plan # DONATO likely 2/2 prererenal state on CKD Serum creatinine 1.4 on adm, increased to 1.9, improved to 1.6 Baseline SCr 1.4-1.6 Urinalysis showed proteinuria, hematuria, and pyuria. Urine culture negative. Antibiotics discontinued. No UTI. CT A/P showed unremarkable KUB [place] by mouth fluid intake # Hyponatremia Serum sodium 124 on adm, improved to 132 Encourage by mouth solid food intake # Hypokalemia, hypophosphatemia Electrolyte repletion prn # ETOH intoxication/withdrawal CIWA protocol # Generalized weakness, mechanical fall PT/OT # Accelerated hypertension Hx of chronic systolic HF TTE on 03/26/2023 showed LVEF 40-45% BP meds adjusted
[2023-03-28] MEDS: NIFEDIPINE XL 30 MG TABLET PO SCH (17:36)
[2023-03-29] MEDS: METOPROLOL TAR 50 MG TAB PO SCH (04:38)
[2023-03-29] MEDS: MORPHINE 2 MG/ML SYR IV PRN (04:39)
[2023-03-29] MEDS: INSULIN REGULAR (HUMAN) 100 UNIT/ML SQ SCH ×2 (07:30→11:30)
[2023-03-29] MEDS ORDERED: lisinopriL 10 MG TAB PO SCH (09:00)
[2023-03-29 09:36] VITALS: O2SAT 97
[2023-03-29] MEDS: allopurinoL 100 MG TAB PO SCH (09:59)
[2023-03-29] MEDS: predniSONE 10 MG TAB PO SCH (10:01)
[2023-03-29] MEDS: THIAMINE HCL 100 MG TABLET PO SCH (10:01)
[2023-03-29] MEDS: FOLIC ACID 1 MG TABLET PO SCH (10:02)
[2023-03-29] MEDS: MULTIVITAMIN TAB PO SCH (10:02)
[2023-03-29] MEDS: HEPARIN 5000 UNIT/ML 1 ML VIAL SQ SCH (10:02)
[2023-03-29 11:00] LABS: Magnesium 2.1 mg/dL (1.6-2.4); Phosphorus 3.9 mg/dL (2.5-4.9); Potassium 4.2 mEq/L (3.5-5.1)
[2023-03-29] MEDS: NIFEDIPINE XL 30 MG TABLET PO SCH (12:46)
[2023-03-29 12:57] LABS: Absolute Lymphocytes (CBC) 2.6 K/uL (0.7-4.9); Hematocrit 36.3 % (39.6-49.0); Lymphocytes % 16.2 % (15.3-44.8); MCV 87.5 fL (80-100); MPV 7.6 fL (7.6-11.3); Platelets 557 thou/uL (152-406); RBC Red Blood Cell Count 4.15 M/uL (4.33-5.43)
--- NOTE | 2023-03-29 13:23 | RAD REPORT ---
EXAM DESCRIPTION: Nathan Single View03/29/2023 1:09 pm CLINICAL HISTORY: sob COMPARISON: March 27, 2023 FINDINGS: The lungs appear clear of acute infiltrate. The heart is moderately enlarged Pulmonary vascular congestion present
[2023-03-29] MEDS ORDERED: FUROSEMIDE 40 MG/4 ML VIAL IV ONE (13:37)
[2023-03-29 14:15] VITALS: TEMP 97.5
[2023-03-29 14:17] VITALS: BP 171/84
--- NOTE | 2023-03-29 14:35 | P.PN ---
Date of Service: 03/29/23 Subjective: Pain in right foot improved No acute events overnight Still feeling short of breath ROS: 10 point ROS as noted above, otherwise negative Physical exam GEN: Alert, oriented, NAD HEENT: Normal conjunctiva, sclera anicteric CV: Regular rate and rhythm, no edema Pulm: Nonlabored respirations on room air ABD: Soft, nontender, nondistended MSK: No joint tenderness, right foot swollen, tender Integumentary: No rashes Neuro: Normal speech, normal affect Vitals reviewed Problem List Hypertensive emergency Improving, still elevated, metoprolol 100 mg p.o. twice daily continued as home medication Added nifedipine XL 30mg daily and lisinopril 10mg daily as recommended by nephrology Reports blood pressure is always high, usually 200s when he has it checked Reviewed case with cardiology who recommends getting better control of blood pressure, outpatient stress test Alcohol abuse/withdrawl Serum alcohol <10 recently drank 12 beers Does not drink regularly monitor for signs of withdrawal Thiamine, folic acid, multivitamin p.o. daily Given information on AA/NA meeting by certified social workers in health care Chronic systolic congestive heart failure having some shortness of breath today Given lasix 40mg iv x1 Elevated troponin, downtrending Cardiology believes troponin leak from hypertensive emergency Recommends outpatient stress test once better controlled Hyponatremia DONATO Improving, initially overcorrected, improving sodium 134 today Renal function improved overnight, similar to baseline Nephrology following UTI no urinary symptoms, urine culture with no growth, Rocephin discontinued Inguinal hernia Small retrocrural lymph node ventral hernia Findings on CT follow up outpatient VTE: Lovenox Code: Full Dispo: likely discharge in the morning Time Spent Managing Pts Care (In Minutes): 35
--- NOTE | 2023-03-29 14:43 | P.PN ---
Subjective Date of Service: 03/29/23 Chief Complaint: Dizziness, fall Subjective: No new changes Physical Examination - Vital Signs Temperature: 97.5 F Blood Pressure: 171/84 Pulse: 75 Respirations: 17 Pulse Ox (%): 97 - Physical Exam General: Other (appears his stated age) HEENT: Atraumatic, Normocephalic Neck: Supple Respiratory: Other (symmetric chest expansion) Cardiovascular: No rubs, No murmurs Gastrointestinal: Soft and benign Musculoskeletal: No clubbing Integumentary: No warmth Neurological: Normal tone Urinary: Other (no bladder distention) External genitalia: Deferred Rectal: Deferred Assessment And Plan - Plan # DONATO likely 2/2 prererenal state on CKD Serum creatinine 1.4 on adm, increased to 1.9, improved to 1.6 Baseline SCr 1.4-1.6 Urinalysis showed proteinuria, hematuria, and pyuria. Urine culture negative. Antibiotics discontinued. No UTI. CT A/P showed unremarkable KUB [place] by mouth fluid intake # Hyponatremia Serum sodium 124 on adm, improved to 132 Encourage by mouth solid food intake # Hypokalemia, hypophosphatemia Electrolyte repletion prn # ETOH abuse No withdrawal symptoms # Generalized weakness, mechanical fall PT/OT # Accelerated hypertension Hx of chronic systolic HF TTE on 03/26/2023 showed LVEF 40-45% Cont current med regimen
--- NOTE | 2023-03-29 17:09 | P.DS ---
Admission Date: 03/26/23 Discharge Date: 03/29/23 Disposition: ROUTINE DISCHARGE Discharge Condition: GOOD Reason for Admission: Dizziness, fall Consultations: Cardiology- Dr. Parson Nephrology- Dr. Myers Brief History of Present Illness: Wagner Padron is a 38-year-old male with past medical history congestive heart failure, gout, high cholesterol, hypertension, who presents to the ED with complaints of high blood pressure and head injury with loss of consciousness after a fall. Wagner reports getting out of bed and falling to the floor this morning. He drove himself to the ED since he does not live far away. His is at work and unavailable to assist. Last night Wagner stated he consumed a 12 pack of beer, alcohol level less than 10 on arrival. Initial vitals BP 215 / 143; Pulse 110; Resp 18; Temp 98; Pulse Ox 100% on R/A. Significant labs WBC 15.2, BUN/creatinine 21/1.42, serum glucose 191, troponin 211.4, BNP 11,231, sodium 124. While in the ED he was given aspirin, Lasix, magnesium, potassium, labetalol, lisinopril, and folic acid. Echo was ordered while in the ED. Wagner will be admitted to hospitalist service for continued evaluation and treatment of hypertensive emergency and alcohol withdrawal. Hospital Course: Patient was admitted to the hospital for hypertensive emergency, CHF, hyponatremia. On admission his blood pressure was 215/143, he did report drinking a 12 pack night before and also tested positive for cocaine. It was unclear if he had been on his home medications prior to arrival to the hospital and also what medications he had been taking at home for his blood pressure. His metoprolol tartrate 100 mg twice daily dose was resumed and he required additional medications to control his blood pressure including nifedipine XL 30 mg daily and lisinopril 10 mg daily. His blood pressure improved during his hospital stay, he did require dose of IV Lasix earlier today for some subjective dyspnea which rapidly improved his symptoms. His sodium improved to 134 today, renal function is at baseline he was seen by cardiology echocardiogram was performed which showed mildly depressed left ventricular ejection fraction 40 to 45% cardiology recommends outpatient work-up including outpatient stress test. During hospitalization patient also developed a gout flare to the right foot requiring treatment with prednisone. At discharge patient will be sent the following new prescriptions metoprolol tartrate 100 mg twice daily Nifedipine XL 30 mg daily Lisinopril 10 mg daily Prednisone taper as instructed Lasix 20 mg daily Please follow-up with: Primary care doctor Dr. Parsoncardiology [facility] In 1-2 weeks Abstain from alcohol, cocaine Vital Signs/Physical Exam: Temp Pulse Resp BP Pulse Ox 97.5 F 75 17 171/84 H 97 03/29/23 14:43 03/29/23 14:43 03/29/23 14:43 03/29/23 14:43 03/29/23 14:43 General: Alert, In no apparent distress, Oriented x3 HEENT: Atraumatic, PERRLA Neck: Supple, JVD not distended Respiratory: Clear to auscultation bilaterally, Normal air movement Cardiovascular: Regular rate/rhythm, Normal S1 S2 Gastrointestinal: Normal bowel sounds Musculoskeletal: No tenderness Integumentary: No rashes Neurological: Normal speech Laboratory Data at Discharge: WBC 16.30 thou/uL (4.3-10.9) H 03/29/23 12:39 Hgb 12.2 g/dL (13.6-17.9) L 03/29/23 12:39 Hct 36.3 % (39.6-49.0) L 03/29/23 12:39 Plt Count 557 thou/uL (152-406) H 03/29/23 12:39 PT 13.2 SECONDS (9.5-12.5) H 03/25/23 10:05 INR 1.20 03/25/23 10:05 APTT 27.6 SECONDS (24.3-36.9) 03/25/23 12:45 Sodium 134 mEq/L (136-145) L 03/29/23 09:54 Potassium 4.2 mEq/L (3.5-5.1) 03/29/23 09:54 BUN 45 mg/dL (7-18) H 03/29/23 09:54 Creatinine 1.59 mg/dL (0.70-1.30) H 03/29/23 09:54 Glucose 154 mg/dL (74-106) H 03/29/23 09:54 Uric Acid 8.2 mg/dL (3.5-7.2) H 03/26/23 17:02 Phosphorus 3.9 mg/dL (2.5-4.9) 03/29/23 09:54 Magnesium 2.1 mg/dL (1.6-2.4) 03/29/23 09:54 Total Bilirubin 0.8 mg/dL (0.2-1.0) 03/25/23 10:05 AST 24 U/L (15-37) 03/25/23 10:05 ALT 28 U/L (16-61) 03/25/23 10:05 Alkaline Phosphatase 70 U/L (45-117) 03/25/23 10:05 Home Medications: allopurinoL [Allopurinol] 1 tab PO DAILY 03/25/23 lisinopriL [Lisinopril] 1 tab PO DAILY 03/25/23 Furosemide [Lasix] 20 mg PO DAILY #30 tab 03/29/23 Metoprolol Tartrate 100 mg PO BID #60 tab 03/29/23 Nifedipine Xl [Procardia Xl*] 30 mg PO DAILY #30 tab 03/29/23 lisinopriL [Lisinopril] 10 mg PO DAILY #30 tab 03/29/23 predniSONE [Prednisone] 5 mg PO DIRECTED #22 tab 03/29/23 New Medications: Furosemide [Lasix] 20 mg PO DAILY #30 tab lisinopriL [Lisinopril] 10 mg PO DAILY #30 tab Metoprolol Tartrate 100 mg PO BID #60 tab predniSONE [Prednisone] 5 mg PO DIRECTED #22 tab Nifedipine Xl [Procardia Xl*] 30 mg PO DAILY #30 tab Physician Discharge Instructions: Patient was admitted to the hospital for hypertensive emergency, CHF, hyponatremia. On admission his blood pressure was 215/143, he did report drinking a 12 pack night before and also tested positive for cocaine. It was unclear if he had been on his home medications prior to arrival to the hospital and also what medications he had been taking at home for his blood pressure. His metoprolol tartrate 100 mg twice daily dose was resumed and he required additional medications to control his blood pressure including nifedipine XL 30 mg daily and lisinopril 10 mg daily. His blood pressure improved during his hospital stay, he did require dose of IV Lasix earlier today for some subjective dyspnea which rapidly improved his symptoms. His sodium improved to 134 today, renal function is at baseline he was seen by cardiology echocardiogram was pe rformed which showed mildly depressed left ventricular ejection fraction 40 to 45% cardiology recommends outpatient work-up including outpatient stress test. During hospitalization patient also developed a gout flare to the right foot requiring treatment with prednisone. At discharge patient will be sent the following new prescriptions metoprolol tartrate 100 mg twice daily Nifedipine XL 30 mg daily Lisinopril 10 mg daily Prednisone taper as instructed Lasix 20 mg daily Please follow-up with: Primary care doctor Dr. Parsoncardiology Dr. Myersnephrology In 1-2 weeks Abstain from alcohol, cocaine Diet: AHA Activity: Ad noble Followup: Margi Myers [ACTIVE - CAN ADMIT] - 1 Week NONE,NONE [Primary Care Provider] - 1 Week Hubert Parson MD [ACTIVE - CAN ADMIT] - 1-2 Weeks Time spent managing pt's care (in minutes): 35
[2023-03-29] MEDS: HYDROCODONE/APAP 5/325 MG TAB PO PRN (17:23)
== END 2023-03-29 18:00 | disposition home or self-care (01) | DRG 305 ==
LOC: ER 09:47 → ERHOLD 12:45 → 2ND 13:46 → OBSVTOIN 03-26 12:08
PROVIDERS: ADMIT Internal Medicine; ATTEND Hospitalist
DX: I16.1 Hypertensive emergency (principal); F10.139 Alcohol abuse with withdrawal, unspecified; I50.22 Chronic systolic (congestive) heart failure; E87.1 Hypo-osmolality and hyponatremia; N17.9 Acute kidney failure, unspecified; I13.0 Hypertensive heart and chronic kidney disease with heart failure and stage 1 through stage 4 chronic kidney disease, or unspecified chronic kidney disease; M10.9 Gout, unspecified; N18.9 Chronic kidney disease, unspecified; E78.00 Pure hypercholesterolemia, unspecified; K43.9 Ventral hernia without obstruction or gangrene; E87.6 Hypokalemia; E83.39 Other disorders of phosphorus metabolism; K40.90 Unilateral inguinal hernia, without obstruction or gangrene, not specified as recurrent; F10.129 Alcohol abuse with intoxication, unspecified; R31.9 Hematuria, unspecified; R77.8 Other specified abnormalities of plasma proteins; Z88.8 Allergy status to other drugs, medicaments and biological substances; Z79.52 Long term (current) use of systemic steroids; Z79.899 Other long term (current) drug therapy; W06.XXXA Fall from bed, initial encounter; Y93.89 Activity, other specified; Y92.9 Unspecified place or not applicable; Y99.9 Unspecified external cause status; Y90.0 Blood alcohol level of less than 20 mg/100 ml
CPT/HCPCS: 36415; 70450; 71045; 72125; 74176; 76377; 80048; 80076; 80143; 80179; 80307; 81001; 82077; 82550; 82570; 82947; 83735; 83880; 83930; 83935; 84100; 84132; 84156; 84300; 84443; 84484; 84550; 85025; 85610; 85730; 86021; 86334; 86704; 86706; 87086; 87088; 87389; 93005; 93306; 96365; 96375; 99285; G0378; J0360; J0696; J1644; J1650; J1815; J1940; J2270; J2597; J2920; J3411; J3475; J7030; J7512

== ENCOUNTER → 2023-04-26 | Emergency (ER) | payer OTHER ==
[~2023-04-26] MED LIST: HYDROCODONE/APAP 10/325 TAB ONE; MORPHINE 4 MG/ML SYR ONE; dexAMETHasone 10 MG/ML VIAL ONE
--- OUTSIDE RECORDS SUMMARY | 2023-04-26 06:49 | XMS REPORT | Continuity of Care Document ---
Author Name Unknown Address [address] [facility] [address] [place] [address] [facility] thconnect Address [address] [facility] [address] [place] [address] Care Team Providers Care Dough Scaler And Mixer Name Role Phone Cristy FREDERICK, Marshall Dean Primary Care Physician Cipriano FREDERICK, Basim Sanz Attending Clinician + Tameka NOVOA Attending Clinician Unavailable Tameka Garcia Attending Clinician [phone] Doctor Unassigned, [place] Attending Clinician U jose e Neumann RN, Sherrell Attending Clinician Unavailable DIMITRIOS ABEL Attending Clinician UnavailDimitrios Kearney MD Attending Clinician [phone] DIMITRIOS ABEL Admitting Clinician Dimitrios Kasper MD Admitting Clinician [phone] Payers Payer Name Policy Type Policy Number Effective Date Expirati on Date Source Problems Condition Name Condition Details Condition Category Status Onset Date Resolution Date Last Treatment Date Treating Clinician Comments Source SOB (shortness of breath) SOB (shortness of breath) Disease Active 4-14 00:00: 00 [facility] Obesity (BMI 30-39.9) Obesity (BMI 30-39.9) Disease Active 11-23 00:00: 00 [facility] Allergies, Adverse Reactions, Alerts Allergy Name Allergy Type Status Severity Reaction(s) Onset Date Inactive Date Treating Clinician Comments Source MORPHINE DRUG INGREDI Active Unknown-Cmnt 12-06 00:00: 00 [facility] Morphine Propensi ty to adverse reaction s Active Unknown - See comments 12-06 00:00: 00 Patient does not know reaction [facility] NO KNOWN ALLERGIE S Drug Class Active [facility] Social History Social Habit Start Date Stop Date Quantity Comments Source History SDOH Alcohol Std Drinks [facility] History SDOH Alcohol Binge [facility] History SDOH Alcohol Frequency [facility] Exposure to SARS-CoV-2 (event) 2021-11-26 00:00:00 2021-12-06 12:55:00 Not sure [facility] Alcohol intake 2021-12-06 00:00:00 2021-12-06 00:00:00 Current drinker of alcohol (finding) [facility] Alcohol Comment 2016-11-22 00:00:00 2016-11-22 00:00:00 Daily [facility] Tobacco use and exposure 2016-11-22 00:00:00 2016-11-22 00:00:00 Smokeless tobacco non-user [facility] Sex Assigned At 1985 00:00:00 1985 00:00:00 [facility] Smoking Status Start Date Stop Date Source Never smoked tobacco [facility] Medications Ordered Medication Name Filled Medication Name Start Date Stop Date Current Medication? Ordering Clinician Indication Dosage Frequency Signature (SIG) Comments Components Source lisinopriL (PRINIVIL,Z ESTRIL) tablet 20 mg 12-07 14:00: 00 Yes 20mg 20 mg, Oral, DAILY, First dose on Sat12/07/21 at 0900, Until Discontinu ed, Routine [facility] HYDROcodone -acetaminop hen (NORCO) 10-325 mg tablet 1 tablet 12-06 17:15: 00 12-06 16:12 :00 No 1{tbl} 1 tablet, Oral, ONCE, 1 dose, On Sat12/06/21 at 1215, Routine [facility] carvediloL (COREG) tablet 25 mg 12-06 17:15: 00 12-06 16:12 :00 No 25mg 25 mg, Oral, ONCE, 1 dose, On Sat12/06/21 at 1215, Routine [facility] methylpredn isolone sod succ (SOLU-MEDRO L) injection 125 mg 12-06 16:45: 00 12-06 16:09 :00 No 125mg 125 mg, Intramuscu lar, ONCE, 1 dose, On Sat12/06/21 at 1145, REGINA [facility] acetaminoph en-codeine 300-30 mg tablet 12-06 00:00: 00 Yes [id number] 1{tbl} Take 1 tablet by mouth every 4 (four) hours as needed for Pain (scale 4-6). Indication s: acute pain [facility] predniSONE 20 mg tablet 12-06 00:00: 00 Yes [id number] 1 PO BID x [address] [facility] acetaminoph en-codeine 300-30 mg tablet 12-06 00:00: 00 Yes [id number] 1{tbl} Take 1 tablet by mouth every 4 (four) hours as needed for Pain (scale 4-6). Indication s: acute pain [facility] predniSONE 20 mg tablet 12-06 00:00: 00 Yes [id number] 1 PO BID x [address] [facility] predniSONE 20 mg tablet 12-06 00:00: 00 12-06 00:00 :00 No [id number] 1 PO BID x [address] [facility] aspirin 81 mg chewable tablet 09-14 00:00: 00 Yes [id number] 81mg Take 1 tablet by mouth daily. [facility] atorvastati n 40 mg tablet 09-14 00:00: 00 Yes [id number] 40mg Take 1 tablet by mouth at bedtime. [facility] carvediloL 25 mg tablet 09-14 00:00: 00 Yes [id number] 37.5mg Take 1.5 tablets by mouth 2 (two) times daily with meals. [facility] furosemide 40 mg tablet 0 09-14 00:00: 00 Yes [id number] 40mg Take 1 tablet by mouth every morning and evening. [facility] lisinopriL 10 mg tablet 0 09-14 00:00: 00 Yes [id number] 30mg Take 3 tablets by mouth daily. [facility] spironolact one 25 mg tablet 09-14 00:00: 00 Yes [id number] 25mg Take 1 tablet by mouth daily. [facility] aspirin 81 mg chewable tablet 09-14 00:00: 00 Yes [id number] 81mg Take 1 tablet by mouth daily. [facility] atorvastati n 40 mg tablet 0 09-14 00:00: 00 Yes [id number] 40mg Take 1 tablet by mouth at bedtime. [facility] carvediloL 25 mg tablet 09-14 00:00: 00 Yes [id number] 37.5mg Take 1.5 tablets by mouth 2 (two) times daily with meals. [facility] furosemide 40 mg tablet 09-14 00:00: 00 Yes [id number] 40mg Take 1 tablet by mouth every morning and evening. [facility] lisinopriL 10 mg tablet 0 09-14 00:00: 00 Yes [id number] 30mg Take 3 tablets by mouth daily. [facility] spironolact one 25 mg tablet 0 09-14 00:00: 00 Yes [id number] 25mg Take 1 tablet by mouth daily. [facility] aspirin 81 mg chewable tablet 0 09-14 00:00: 00 Yes [id number] 81mg Take 1 tablet by mouth daily. [facility] atorvastati n 40 mg tablet 2021-0 09-14 00:00: 00 Yes [id number] 40mg Take 1 tablet by mouth at bedtime. [facility] carvediloL 25 mg tablet 0 5-12 00:00: 00 Yes [id number] 37.5mg Take 1.5 tablets by mouth 2 (two) times daily with meals. [facility] furosemide 40 mg tablet 12 00:00: 00 Yes [id number] 40mg Take 1 tablet by mouth every morning and evening. [facility] lisinopriL 10 mg tablet 0 12 00:00: 00 Yes [id number] 30mg Take 3 tablets by mouth daily. [facility] spironolact one 25 mg tablet 0 09-14 00:00: 00 Yes [id number] 25mg Take 1 tablet by mouth daily. [facility] aspirin 81 mg chewable tablet 09-14 00:00: 00 Yes [id number] 81mg Take 1 tablet by mouth daily. [facility] atorvastati n 40 mg tablet 09-14 00:00: 00 Yes [id number] 40mg Take 1 tablet by mouth at bedtime. [facility] carvediloL 25 mg tablet 09-14 00:00: 00 Yes [id number] 37.5mg Take 1.5 tablets by mouth 2 (two) times daily with meals. [facility] furosemide 40 mg tablet 09-14 00:00: 00 Yes [id number] 40mg Take 1 tablet by mouth every morning and evening. [facility] lisinopriL 10 mg tablet 09-14 00:00: 00 Yes [id number] 30mg Take 3 tablets by mouth daily. [facility] spironolact one 25 mg tablet 12 00:00: 00 Yes [id number] 25mg Take 1 tablet by mouth daily. [facility] aspirin 81 mg chewable tablet 08-22 00:00: 00 02-19 04:59 :00 No [id number] 81mg Take 1 tablet by mouth daily for [address] [facility] lisinopriL 10 mg tablet 08-22 00:00: 00 02-19 04:59 :00 No [id number] 30mg Take 3 tablets by mouth daily for [address] [facility] spironolact one 25 mg tablet 2-0 4-19 00:00: 00 02-19 04:59 :00 No [id number] 25mg Take 1 tablet by mouth daily for [address] [facility] aspirin 81 mg chewable tablet 2-0 4-19 00:00: 00 02-19 04:59 :00 No [id number] 81mg Take 1 tablet by mouth daily for [address] [facility] lisinopriL 10 mg tablet 2-0 4-19 00:00: 00 02-19 04:59 :00 No [id number] 30mg Take 3 tablets by mouth daily for [address] [facility] spironolact one 25 mg tablet 2021-0 4-19 00:00: 00 02-19 04:59 :00 No [id number] 25mg Take 1 tablet by mouth daily for [address] [facility] aspirin 81 mg chewable tablet 2021-0 4-19 00:00: 00 02-19 04:59 :00 No [id number] 81mg Take 1 tablet by mouth daily for [address] [facility] lisinopriL 10 mg tablet 2021-0 4-19 00:00: 00 02-19 04:59 :00 No [id number] 30mg Take 3 tablets by mouth daily for [address] [facility] spironolact one 25 mg tablet 2-0 4-19 00:00: 00 02-19 04:59 :00 No [id number] 25mg Take 1 tablet by mouth daily for [address] [facility] aspirin 81 mg chewable tablet 2-0 4-19 00:00: 00 02-19 04:59 :00 No [id number] 81mg Take 1 tablet by mouth daily for [address] [facility] lisinopriL 10 mg tablet 2-0 4-19 00:00: 00 02-19 04:59 :00 No [id number] 30mg Take 3 tablets by mouth daily for [address] [facility] spironolact one 25 mg tablet 2-0 4-19 00:00: 00 02-19 04:59 :00 No [id number] 25mg Take 1 tablet by mouth daily for [address] [facility] aspirin 81 mg chewable tablet 2-0 4-19 00:00: 00 02-19 04:59 :00 No [id number] 81mg Take 1 tablet by mouth daily for [address] [facility] lisinopriL 10 mg tablet 2-0 4-19 00:00: 00 02-19 04:59 :00 No [id number] 30mg Take 3 tablets by mouth daily for [address] [facility] spironolact one 25 mg tablet 2021-0 4-19 00:00: 00 02-19 04:59 :00 No [id number] 25mg Take 1 tablet by mouth daily for [address] [facility] aspirin 81 mg chewable tablet 2021-0 4-19 00:00: 00 02-19 04:59 :00 No [id number] 81mg Take 1 tablet by mouth daily for [address] [facility] lisinopriL 10 mg tablet 2021-0 4-19 00:00: 00 02-19 04:59 :00 No [id number] 30mg Take 3 tablets by mouth daily for [address] [facility] spironolact one 25 mg tablet 2021-0 4-19 00:00: 00 02-19 04:59 :00 No [id number] 25mg Take 1 tablet by mouth daily for [address] [facility] aspirin 81 mg chewable tablet 2021-0 4-19 00:00: 00 09-14 00:00 :00 No [id number] 81mg Take 1 tablet by mouth daily for [address] [facility] lisinopriL 10 mg tablet 2-0 4-19 00:00: 00 09-14 00:00 :00 No [id number] 30mg Take 3 tablets by mouth daily for [address] [facility] spironolact one 25 mg tablet 2-0 4-19 00:00: 00 09-14 00:00 :00 No [id number] 25mg Take 1 tablet by mouth daily for [address] [facility] carvediloL (COREG) tablet 37.5 mg 08-21 22:00: 00 Yes 37.5mg 37.5 mg, Oral, BID MEALS, First dose (after last modificati on) on Sat08/21/21 at 1700, Until Discontinu ed, Routine [facility] lisinopriL (PRINIVIL,Z ESTRIL) tablet 30 mg 08-21 14:00: 00 Yes 30mg 30 mg, Oral, DAILY, First dose (after last modificati on) on Sat08/21/21 at 0900, Until Discontinu ed, Routine [facility] magnesium oxide (MAG-OX 400) tablet 400 mg 08-21 13:45: 00 08-21 13:20 :00 No 400mg 400 mg, Oral, ONCE, 1 dose, On Sat08/21/21 at 0845, Routine [facility] amLODIPine 10 mg tablet 08-21 11:33: 41 08-21 00:00 :00 No 10mg Take 10 mg by mouth daily. [facility] hydroCHLORO thiazide 25 mg tablet 08-21 11:33: 41 08-21 00:00 :00 No 25mg Take 25 mg by mouth daily. [facility] ibuprofen 800 mg tablet 08-21 11:33: 41 08-21 00:00 :00 No 800mg Take 800 mg by mouth 2 (two) times daily. [facility] hydrALAZINE (APRESOLINE ) tablet 10 mg 08-21 07:00: 00 08-21 06:05 :00 No 10mg 10 mg, Oral, ONCE, 1 dose, On Sat08/21/21 at 0200, Routine [facility] atorvastati n 40 mg tablet 08-21 00:00: 00 02-18 04:59 :00 No [id number] 40mg Take 1 tablet by mouth at bedtime for [address] [facility] furosemide 40 mg tablet 2022-0 4-18 00:00: 00 02-18 04:59 :00 No [id number] 40mg Take 1 tablet by mouth every morning and evening for [address] [facility] carvediloL 25 mg tablet 2-0 4-18 00:00: 00 02-18 04:59 :00 No [id number] 37.5mg Take 1.5 tablets by mouth 2 (two) times daily with meals for [address] [facility] atorvastati n 40 mg tablet 2021-0 4-18 00:00: 00 02-18 04:59 :00 No [id number] 40mg Take 1 tablet by mouth at bedtime for [address] [facility] furosemide 40 mg tablet 2021-0 4-18 00:00: 00 02-18 04:59 :00 No [id number] 40mg Take 1 tablet by mouth every morning and evening for [address] [facility] carvediloL 25 mg tablet 2021-0 4-18 00:00: 00 02-18 04:59 :00 No [id number] 37.5mg Take 1.5 tablets by mouth 2 (two) times daily with meals for [address] [facility] atorvastati n 40 mg tablet 2021-0 4-18 00:00: 00 02-18 04:59 :00 No [id number] 40mg Take 1 tablet by mouth at bedtime for [address] [facility] furosemide 40 mg tablet 2021-0 4-18 00:00: 00 02-18 04:59 :00 No [id number] 40mg Take 1 tablet by mouth every morning and evening for [address] [facility] carvediloL 25 mg tablet 2021-0 4-18 00:00: 00 02-18 04:59 :00 No [id number] 37.5mg Take 1.5 tablets by mouth 2 (two) times daily with meals for [address] [facility] atorvastati n 40 mg tablet 2021-0 4-18 00:00: 00 02-18 04:59 :00 No [id number] 40mg Take 1 tablet by mouth at bedtime for [address] [facility] furosemide 40 mg tablet 2-0 4-18 00:00: 00 02-18 04:59 :00 No [id number] 40mg Take 1 tablet by mouth every morning and evening for [address] [facility] carvediloL 25 mg tablet 2-0 4-18 00:00: 00 02-18 04:59 :00 No [id number] 37.5mg Take 1.5 tablets by mouth 2 (two) times daily with meals for [address] [facility] atorvastati n 40 mg tablet 2021-0 4-18 00:00: 00 02-18 04:59 :00 No [id number] 40mg Take 1 tablet by mouth at bedtime for [address] [facility] furosemide 40 mg tablet 2021-0 4-18 00:00: 00 02-18 04:59 :00 No [id number] 40mg Take 1 tablet by mouth every morning and evening for [address] [facility] carvediloL 25 mg tablet 2021-0 4-18 00:00: 00 02-18 04:59 :00 No [id number] 37.5mg Take 1.5 tablets by mouth 2 (two) times daily with meals for [address] [facility] atorvastati n 40 mg tablet 2021-0 4-18 00:00: 00 02-18 04:59 :00 No [id number] 40mg Take 1 tablet by mouth at bedtime for [address] [facility] furosemide 40 mg tablet 2021-0 4-18 00:00: 00 02-18 04:59 :00 No [id number] 40mg Take 1 tablet by mouth every morning and evening for [address] [facility] carvediloL 25 mg tablet 2021-0 4-18 00:00: 00 02-18 04:59 :00 No [id number] 37.5mg Take 1.5 tablets by mouth 2 (two) times daily with meals for [address] [facility] atorvastati n 40 mg tablet 2-0 4-18 00:00: 00 09-14 00:00 :00 No [id number] 40mg Take 1 tablet by mouth at bedtime for [address] [facility] furosemide 40 mg tablet 18 00:00: 00 09-14 00:00 :00 No [id number] 40mg Take 1 tablet by mouth every morning and evening for [address] [facility] carvediloL 25 mg tablet 0 18 00:00: 00 09-14 00:00 :00 No [id number] 37.5mg Take 1.5 tablets by mouth 2 (two) times daily with meals for [address] [facility] carvediloL 25 mg tablet 08-21 00:00: 00 08-21 00:00 :00 No [id number] 25mg Take 1 tablet by mouth 2 (two) times daily with meals for [address] [facility] furosemide (LASIX) tablet 40 mg 08-20 14:00: 00 Yes 40mg 40 mg, Oral, QAM+PM, First dose (after last modificati on) on 08/20/21 at 0900, Until Discontinu ed, Routine [facility] lisinopriL (PRINIVIL,Z ESTRIL) tablet 20 mg 17 14:00: 00 08-21 11:42 :47 No 20mg 20 mg, Oral, DAILY, First dose (after last modificati on) on 08/20/21 at 0900, Until Discontinu ed, Routine [facility] carvediloL (COREG) tablet 25 mg 17 13:00: 00 08-21 17:46 :56 No 25mg 25 mg, Oral, BID MEALS, First dose (after last modificati on) on 08/20/21 at 0800, Until Discontinu ed, Routine [facility] lisinopriL (PRINIVIL,Z ESTRIL) tablet 5 mg 16 15:00: 00 08-19 14:30 :00 No 5mg 5 mg, Oral, ONCE, 1 dose, On 08/19/21 at 1000, Routine [facility] carvediloL (COREG) tablet 12.5 mg 08-19 13:00: 00 08-19 22:39 :41 No 12.5mg 12.5 mg, Oral, BID MEALS, First dose (after last modificati on) on Sat08/19/21 at 0800, Until Discontinu ed, Routine [facility] furosemide (LASIX) injection 40 mg 08-19 01:00: 00 08-19 17:31 :11 No 40mg 40 mg, Slow IV Push, Q12H, First dose on Sat08/18/21 at 2000, Until Discontinu ed, Routine [facility] hydrALAZINE (APRESOLINE ) tablet 25 mg 08-18 21:47: 07 Yes 25mg 25 mg, Oral, Q6HPRN, Starting on Sat08/18/21 at 1647, Until Discontinu ed, Routine, SBP >180 [facility] lisinopriL (PRINIVIL,Z ESTRIL) tablet 10 mg 08-18 18:15: 00 08-18 18:14 :00 No 10mg 10 mg, Oral, DAILY, 1 dose, First dose on Sat08/18/21 at 1315, Routine [facility] lisinopriL (PRINIVIL,Z ESTRIL) tablet 10 mg 08-18 16:00: 00 08-19 13:47 :35 No 10mg 10 mg, Oral, DAILY, First dose on Sat08/18/21 at 1100, Until Discontinu ed, Routine [facility] spironolact one (ALDACTONE) tablet 25 mg 08-18 14:00: 00 Yes 25mg 25 mg, Oral, DAILY, First dose on Sat08/18/21 at 0900, Until Discontinu ed, Routine [facility] aspirin chewable tablet 81 mg 08-18 14:00: 00 Yes 81mg 81 mg, Oral, DAILY, First dose on Sat08/18/21 at 0900, Until Discontinu ed, Routine [facility] furosemide (LASIX) tablet 40 mg 08-18 14:00: 00 08-18 16:18 :32 No 40mg 40 mg, Oral, QAM+PM, First dose on Sat08/18/21 at 0900, Until Discontinu ed, Routine [facility] amLODIPine (NORVASC) tablet 10 mg 08-18 12:00: 00 08-18 11:05 :00 No 10mg 10 mg, Oral, ONCE, 1 dose, On Sat08/18/21 at 0700, Routine [facility] atorvastati n (LIPITOR) tablet 40 mg 08-18 02:00: 00 Yes 40mg 40 mg, Oral, QHS, First dose on Sat08/17/21 at 2100, Until Discontinu ed, Routine [facility] heparin (porcine) injection 5,000 Units 08-18 01:00: 00 Yes 5000U 5,000 Units, Subcutaneo us, Q12H, First dose on Sat08/17/21 at 2000, Until Discontinu ed, Routine [facility] hydrALAZINE (APRESOLINE ) tablet 10 mg 08-17 22:45: 00 08-17 23:51 :00 No 10mg 10 mg, Oral, ONCE, 1 dose, On Sat08/17/21 at 1745, Routine [facility] hydrALAZINE (APRESOLINE ) tablet 10 mg 08-17 21:45: 54 08-18 21:47 :24 No 10mg 10 mg, Oral, Q6HPRN, Starting on Sat08/17/21 at 1645, Until Sat08/18/21 at 1647, Routine, SBP >180 [facility] sulfur hexafluorid e microsphr (LUMASON) injection 5 mL 08-17 20:45: 00 08-17 20:45 :00 No [id number] 5mL 5 mL, Intravenou s, ONCE, 1 dose, On Sat08/17/21 at 1545, Routine
cruise staff member approving Restricted medication : DEZ QIU [facility] magnesium sulfate in water 4 gram/50 mL (8 %) IV Piggyback 4 g 08-17 18:15: 00 08-17 18:29 :00 No 4g 4 g, IV Piggyback, ONCE, 1 dose, On Viktoriya 08/17/21 at 1315, Routine [facility] KCL (KLOR-CON M20) tablet 40 mEq 08-17 18:15: 00 08-17 18:10 :00 No 40meq 40 mEq, Oral, ONCE, 1 dose, On Viktoriya 08/17/21 at 1315, Routine [facility] furosemide (LASIX) injection 40 mg 08-17 17:15: 00 08-18 12:42 :25 No 40mg 40 mg, Slow IV Push, Q12H, First dose on Viktoriya 08/17/21 at 1215, Until Discontinu ed, Routine [facility] acetaminoph en (TYLENOL) tablet 650 mg 08-17 14:09: 58 Yes 650mg 650 mg, Oral, Q6HPRN, Starting on Viktoriya 08/17/21 at 0909, Until Discontinu ed, Routine, Pain (scale 1-3) [facility] amLODIPine 10 mg tablet 08-17 09:16: 15 Yes 10mg Take 10 mg by mouth daily. [facility] hydroCHLORO thiazide 25 mg tablet 08-17 09:16: 15 Yes 25mg Take 25 mg by mouth daily. [facility] ibuprofen 800 mg tablet 08-17 09:16: 15 Yes 800mg Take 800 mg by mouth 2 (two) times daily. [facility] Vital Signs Vital Name Observation Time Observation Value Comments S qi Systolic blood pressure 2021-12-06 17:40:07 158 mm[Hg] [facility] Diastolic blood pressure 2021-12-06 17:40:07 105 mm[Hg] [facility] Heart rate 2021-12-06 15:43:00 91 /min [facility] Respiratory rate 2021-12-06 15:43:00 20 /min [facility] Oxygen saturation in Arterial blood by Pulse oximetry 2021-12-06 15:43:00 97 /min [facility] Body temperature 2021-12-06 14:49:00 36.61 Anastasiia [facility] Body height 2021-12-06 14:49:00 182.9 cm [facility] Body weight 2021-12-06 14:49:00 99.791 kg [facility] BMI 2021-12-06 14:49:00 29.84 kg/m2 [facility] Systolic blood pressure 2021-08-21 20:39:00 143 mm[Hg] [facility] Diastolic blood pressure 2021-08-21 20:39:00 104 mm[Hg] [facility] Heart rate 2021-08-21 20:39:00 79 /min [facility] Body temperature 2021-08-21 20:39:00 36 Anastasiia [facility] Respiratory rate 2021-08-21 20:39:00 18 /min [facility] Oxygen saturation in Arterial blood by Pulse oximetry 2021-08-21 20:39:00 99 /min [facility] Body weight 2021-08-21 10:57:00 104.055 kg [facility] BMI 2021-08-21 10:57:00 31.11 kg/m2 [facility] Body height 2021-08-18 10:31:00 182.9 cm [facility] Procedures Procedure Date / Time Performed Performing Clinician Source NOTICE OF PRIVACY PRACTICES 2021-12-06 14:38:21 Doctor Unassigned, [place] [facility] CONSENT/REFUSAL FOR DIAGNOSIS AND TREATMENT 2021-12-06 14:38:03 Doctor Unassigned, [place] [facility] AUTHORIZATION FOR RELEASE OF PHI 2021-09-01 05:01:00 Doctor Unassigned, [place] [facility] MAGNESIUM 2021-08-21 08:42:00 Eryn Cowart [facility] BASIC METABOLIC PANEL (NA, K, CL, CO2, GLUCOSE, BUN, CREATININE, CA) 2021-08-21 08:42:00 Eryn Cowart [facility] N-TERMINAL PRO-BNP 2021-08-21 08:42:00 Gaston [facility] HB ECG ROUTINE & RHYTHM STRIP 2021-08-20 13:02:55 [facility]-08-20 09:22:[facility] (NA, K, CL, CO2, GLUCOSE, BUN, CREATININE, CA) 2021-08-20 09:22:00 [facility] CBC WITH DIFF 2021-08-20 09:22:00 Anca [facility] HB ECG ROUTINE & RHYTHM STRIP 2021-08-19 13:08:08 [facility] 2021-08-19 10:21:00 Gaston [facility] BASIC METABOLIC PANEL (NA, K, CL, CO2, GLUCOSE, BUN, CREATININE, CA) 2021-08-19 10:21:[address] [facility] BASIC METABOLIC PANEL (NA, K, CL, CO2, GLUCOSE, BUN, CREATININE, CA) 2021-08-18 19:41:00 [facility] RHYTHM STRIP 2021-08-18 14:50:24 Sup[facility] MAGNESIUM 2021-08-18 09:10:00 Eryn Cowart [facility] BASIC METABOLIC PANEL (NA, K, CL, CO2, GLUCOSE, BUN, CREATININE, CA) 2021-08-18 09:10:00 [facility] 2021-08-18 [facility]:10[facility]-08[facility]17 23:58[facility] (TTE) COMPLETE W/ CONTRAST 2021-08-17 18:53:00 [facility]OS[facility]US 2021-08-17 15:43:00 Eryn Cowart [facility] MAGNESIUM 2021-08-17 15:43:00 [facility] F[facility] SERUM 2021-08-17 15:43:00 Eryn Cowart [facility] TROPONIN I 2021-08-17 15:43:00 [facility] THYROID STIMULATING HORMONE 2021-08-17 15:43:00 [facility] HEPATIC FUNCTION PANEL ([id number]) (ALB,T.PRO,BILI T,BU/BC,ALT,AST,ALK PHOS) 2021-08-17 15:43:00 [facility] BASIC METABOLIC PANEL (NA, K, CL, CO2, GLUCOSE, BUN, CREATININE, CA) 2021-08-17 15:43:00 [facility] IRON PANEL 2021-08-17 15:43:00 [facility] CBC WITH DIFF 2021-08-17 15:43:00 [facility] GLYCOSYLATED HEMOGLOBIN (A1C) 2021-08-17 15:43:00 [facility] N-TERMINAL PRO-BNP 2021-08-17 15:43:00 [facility] XR CHEST 1 VW 2021-08-17 15:10:00 [facility] Encounters Start Date/Time End Date/Time Encounter Type Admission Type Attending [facility] Care Facility Care Department Encounter ID Source 2022-08-17 00:00:00 2022-08-17 00:00:00 Basim Garcia [facility] 1..840.114 350.1.13.10 4.2.7.2.[id number] [facility] 2021-12-06 09:51:00 2021-12-06 13:09:00 Emergency X Tameka NOVOA [facility] ERT [id number] [facility] 2021-12-06 09:51:00 2021-12-06 13:09:00 Emergency Tameka Novoa [facility] 1..840.114 350.1.13.10 4.2.7.2.[id number] [facility] 2021-12-06 00:00:00 2021-12-06 00:00:00 Orders Only Doctor Unassigned, [place] [facility] 1.2840.114 350.1.13.10 4.2.7.2.[id number] [facility] 2021-09-14 00:00:00 2021-09-14 00:00:00 Telephone [facility] 1.840.114 350.1.13.10 4.2.7.2.[id number] [facility] 2021-09-12 00:00:00 2021-09-12 00:00:00 Telephone [facility] MEDICAL OFFICE BUILDING 1.840.114 350.1.13.10 4.2.7.2.[id number] [facility] 2021-09-01 00:00:00 2021-09-01 00:00:00 Telephone [facility] 1.2840.114 350.1.13.10 4.2.7.2.[id number] [facility] 2021-09-01 00:00:00 2021-09-01 00:00:00 Orders Only Doctor Unassigned, [place] [facility] 1.2840.114 350.1.13.10 4.2.7.2.[id number] [facility] 2021-08-30 00:00:00 2021-08-30 00:00:00 Telephone [facility] 1.840.114 350.1.13.10 4.2.7.2.[id number] [facility] 2021-08-22 00:00:00 2021-08-22 00:00:00 Transition of Care Sherrell Neumann 1.2.840.114 350.1.13.10 4.2.7.2.[id number] [facility] 2021-08-17 08:35:00 2021-08-21 17:42:00 Inpatient [facility] [id number] [facility] 2021-08-17 08:35:00 2021-08-21 17:42:00 Hospital Encounter Basim [facility] Dimitrios Abel [facility] 1.2.840.114 350.1.13.10 4.2.7.2.[id number] [facility] 2021-08-18 00:00:00 2021-08-18 00:00:00 Telephone Dimitrios Abel [facility] 1.2.840.114 350.1.13.10 4.2.7.2.[id number] [facility] Results Test Description Test Time Test Comments Results Result Co mments [facility] (NA, K, CL, CO2, GLUCOSE, BUN, CREATININE, CA)2021-08-21 10:07:34* Test Item Value Reference Range Interpretation Comme nts NA (test code = 2451258211) 135 mmol/L 135-145 K (test code = 0097423047) 4.4 mmol/L 3.5-5.0 CL (test code = 8692727416) 102 mmol/L 98-108 CO2 TOTAL (test code = 8675335803) 26 mmol/L 23-31 AGAP (test code = 8014050121) 2-16 BUN (test code = 3121154530) 27 mg/dL 7-23 H GLUCOSE (test code = 8322763922) 104 mg/dL 70-110 CREATININE (test code = 8077259655) 1.49 mg/dL 0.60-1.25 H CALCIUM (test code = 2632419144) 9.0 mg/dL 8.6-10.6 eGFR (test code = 9651965258) mL/min/1.73m2 EBEN (test code = EBEN) Association of [...] or abnormalities in imaging tests). Lab Interpretation (test code = 41793-3) [facility]normal [facility]2022-[facility]-18 10:07:34* Test Item Value Reference Range Interpretation Comme nts MAGNESIUM (test code = 2060873877) 1.9 mg/dL 1.7-2.4 Lab Interpretation (test cod e = 84710-8) Normal [facility] (NA, K, CL, CO2, GLUCOSE, BUN, CREATININE, CA)2021-08-20 10:22:59* Test Item Value Reference Range Interpretation Comme nts NA (test code = 5371451562) 137 mmol/L 135-145 K (test code = 9429058414) 4.4 mmol/L 3.5-5.0 CL (test code = 5776128578) 102 mmol/L 98-108 CO2 TOTAL (test code = 2306341248) 26 mmol/L 23-31 AGAP (test code = 5663172111) 2-16 BUN (test code = 4095540072) 31 mg/dL 7-23 H GLUCOSE (test code = 7173709592) 119 mg/dL 70-110 H CREATININE (test code = 6751554734) 1.56 mg/dL 0.60-1.25 H CALCIUM (test code = 5342929667) 9.1 mg/dL 8.6-10.6 eGFR (test code = 3949848352) mL/min/1.73m2 EBEN (test code = EBEN) Association of [...] or abnormalities in imaging tests). Lab Interpretation (test code = 70010-0) [facility] 10:22:59* Test Item Value Reference Range Interpretation Comme nts MAGNESIUM (test code = 7544678855) 2.1 mg/dL 1.7-2.4 Lab Interpretation (test cod e = 42772-8) Normal [facility] WITH [id number] 09:42:15* Test Item Value Reference Range Interpretation Comme nts WBC (test code = 6690-2) See_Comment H [Automated messa ge] The system which generated this result transmitted reference range: 4.20 - 10.70 10*3/?L. The reference range was not used to interpret this result as normal/abnormal. RBC (test code = 789-8) See_Comment [Automated messa ge] The system which generated this result transmitted reference range: 4.26 - 5.52 10*6/?L. The reference range was not used to interpret this result as normal/abnormal. HGB (test code = 718-7) 13.5 g/dL 12.2-16.4 HCT (test code = 4544-3) 41.1 % 38.4-49.3 MCV (test code = 787-2) 86.0 fL 81.7-95.6 MCH (test code = 785-6) 28.2 pg 26.1-32.7 MCHC (test code = 786-4) 32.8 g/dL 31.2-35.0 RDW-SD (test code = 30751-8) 39.3 fL 38.5-51.6 RDW-CV (test code = 788-0) 12.5 % 12.1-15.4 PLT (test code = 777-3) See_Comment H [Automated messa ge] The system which generated this result transmitted reference range: 150 - 328 10*3/?L. The reference range was not used to interpret this result as normal/abnormal. MPV (test code = 86420-1) 9.3 fL 9.8-13.0 L NRBC/100 WBC (test code = 6107019841) See_Comment [Automated Voice[employer] ssage] The system which generated this result transmitted reference range: 0.0 - 10.0 /100 WBCs. The reference range was not used to interpret this result as normal/abnormal. NRBC x10^3 (test code = 7055741433) <0.01 See_Comment [Automated messa ge] The system which generated this result transmitted reference range: 10*3/?L. The reference range was not used to interpret this result as normal/abnormal. GRAN MAT (NEUT) % (test code = 770-8) 60.5 % IMM GRAN % (test code = 1562817874) 0.30 % LYMPH % (test code = 736-9) 26.7 % MONO % (test code = 5905-5) 8.3 % EOS % (test code = 713-8) 3.4 % BASO % (test code = 706-2) 0.8 % GRAN MAT x10^3(ANC) (test code = 2322475904) 7.17 10*3/uL 1.99-6.95 H IMM GRAN x10^3 (test code = 5827693620) 0.03 10*3/uL 0.00-0.06 LYMPH x10^3 (test code = 731-0) 3.16 10*3/uL 1.09-3.23 MONO x10^3 (test code = 742-7) 0.98 10*3/uL 0.36-1.02 EOS x10^3 (test code = 711-2) 0.40 10*3/uL 0.06-0.53 BASO x10^3 (test code = 704-7) 0.10 10*3/uL 0.01-0.09 H Lab Interpretation (test code = 43036-6) Abnormal [facility] METABOLIC PANEL (NA, K, CL, CO2, GLUCOSE, BUN, CREATININE, CA)2021-08-19 10:52:12* Test Item Value Reference Range Interpretation Comme nts NA (test code = 9906354189) 136 mmol/L 135-145 K (test code = 1594901408) 3.8 mmol/L 3.5-5.0 CL (test code = 0587796230) 100 mmol/L 98-108 CO2 TOTAL (test code = 7703081329) 29 mmol/L 23-31 AGAP (test code = 1781210204) 2-16 BUN (test code = 2689163836) 32 mg/dL 7-23 H GLUCOSE (test code = 4222312377) 115 mg/dL 70-110 H CREATININE (test code = 6230139443) 1.67 mg/dL 0.60-1.25 H CALCIUM (test code = 7414577780) 9.1 mg/dL 8.6-10.6 eGFR (test code = 1652608064) mL/min/1.73m2 EBEN (test code = EBEN) Association of [...] or abnormalities in imaging tests). Lab Interpretation (test code = 32447-4) [facility]16 10:52:12* Test Item Value Reference Range Interpretation Comme nts MAGNESIUM (test code = 0582479344) 1.9 mg/dL 1.7-2.4 Lab Interpretation (test cod e = 26818-2) Normal [facility] (NA, K, CL, CO2, GLUCOSE, BUN, CREATININE, CA)2021-08-18 21:19:06* Test Item Value Reference Range Interpretation Comme nts NA (test code = 4746539073) 135 mmol/L 135-145 K (test code = 8068146705) 3.9 mmol/L 3.5-5.0 CL (test code = 4028486315) 98 mmol/L 98-108 CO2 TOTAL (test code = 3442933858) 30 mmol/L 23-31 AGAP (test code = 9770486193) 2-16 BUN (test code = 5745263743) 29 mg/dL 7-23 H GLUCOSE (test code = 0218005113) 121 mg/dL 70-110 H CREATININE (test code = 5470942455) 1.58 mg/dL 0.60-1.25 H CALCIUM (test code = 6039600173) 8.9 mg/dL 8.6-10.6 eGFR (test code = 5029704803) mL/min/1.73m2 EBEN (test code = EBEN) Association of [...] or abnormalities in imaging tests). Lab Interpretation (test code = 94571-9) Abnormal [facility] METABOLIC PANEL (NA, K, CL, CO2, GLUCOSE, BUN, CREATININE, CA)2021-08-18 10:04:44* Test Item Value Reference Range Interpretation Comme nts NA (test code = 4285995242) 135 mmol/L 135-145 K (test code = 0112112774) 4.0 mmol/L 3.5-5.0 Slight hemolysis CL (test code = 2378847946) 101 mmol/L 98-108 CO2 TOTAL (test code = 9705303851) 29 mmol/L 23-31 AGAP (test code = 6597587796) 2-16 BUN (test code = 1415397833) 32 mg/dL 7-23 H Slight hemolysis GLUCOSE (test code = 9953517286) 114 mg/dL 70-110 H CREATININE (test code = 1864277333) 1.54 mg/dL 0.60-1.25 H CALCIUM (test code = 9325066315) 8.8 mg/dL 8.6-10.6 eGFR (test code = 6069300726) mL/min/1.73m2 EBEN (test code = EBEN) Association of [...] or abnormalities in imaging tests). Lab Interpretation (test code = 37540-4) [facility]normal [facility]20[facility]-15 10:04:44* Test Item Value Reference Range Interpretation Comme nts MAGNESIUM (test code = 9146214755) 2.2 mg/dL 1.7-2.4 Lab Interpretation (test cod e = 88376-1) [facility] WITH [id number] 09:24:38* Test Item Value Reference Range Interpretation Comme nts WBC (test code = 6690-2) See_Comment [Automated [employer]] The system which generated this result transmitted reference range: 4.20 - 10.70 10*3/?L. The reference range was not used to interpret this result as normal/abnormal. RBC (test code = 789-8) See_Comment [Automated [employer]] The system which generated this result transmitted reference range: 4.26 - 5.52 10*6/?L. The reference range was not used to interpret this result as normal/abnormal. HGB (test code = 718-7) 13.5 g/dL 12.2-16.4 HCT (test code = 4544-3) 40.6 % 38.4-49.3 MCV (test code = 787-2) 85.5 fL 81.7-95.6 MCH (test code = 785-6) 28.4 pg 26.1-32.7 MCHC (test code = 786-4) 33.3 g/dL 31.2-35.0 RDW-SD (test code = 70354-0) 39.1 fL 38.5-51.6 RDW-CV (test code = 788-0) 12.6 % 12.1-15.4 PLT (test code = 777-3) See_Comment H [Automated [employer]] The system which generated this result transmitted reference range: 150 - 328 10*3/?L. The reference range was not used to interpret this result as normal/abnormal. MPV (test code = 63235-3) 9.5 fL 9.8-13.0 L NRBC/100 WBC (test code = 6938659544) See_Comment [Automated me ssage] The system which generated this result transmitted reference range: 0.0 - 10.0 /100 WBCs. The reference range was not used to interpret this result as normal/abnormal. NRBC x10^3 (test code = 9377290296) <0.01 See_Comment [Automated messa ge] The system which generated this result transmitted reference range: 10*3/?L. The reference range was not used to interpret this result as normal/abnormal. GRAN MAT (NEUT) % (test code = 770-8) 65.3 % IMM GRAN % (test code = 5002467391) 0.20 % LYMPH % (test code = 736-9) 23.3 % MONO % (test code = 5905-5) 7.0 % EOS % (test code = 713-8) 3.5 % BASO % (test code = 706-2) 0.7 % GRAN MAT x10^3(ANC) (test code = 5690532341) 6.63 10*3/uL 1.99-6.95 IMM GRAN x10^3 (test code = 4291003646) <0.03 0.00-0.06 LYMPH x10^3 (test code = 731-0) 2.36 10*3/uL 1.09-3.23 MONO x10^3 (test code = 742-7) 0.71 10*3/uL 0.36-1.02 EOS x10^3 (test code = 711-2) 0.35 10*3/uL 0.06-0.53 BASO x10^3 (test code = 704-7) 0.07 10*3/uL 0.01-0.09 Lab Interpretation (test code = 31230-6) Abnormal [facility] (A1C)2021-08-18 02:37:07* Test Item Value Reference Range Interpretation Comme nts HGB A1C (test code = 4548-4) 5.8 % 4.0-5.7 H EBEN (test code = EBEN) Reference RangesNormal: <5.7%Prediabetes: 5.7 - 6.4%Diabetes: > 6.5% Lab Interpretation (test code = 49705-4) Abnormal [facility] [id number] 01:03:37* Test Item Value Reference Range Interpretation Comments TROPONIN I (test code = 8882741442) 0.101 ng/mL See_Comment H [Automated message] The system which generated this result transmitted reference range: <=0.034. The reference range was not used to interpret this result as normal/abnormal. EBEN (test code = EBEN) Reference (Normal) Range (defined by the 99th percentile reference [...] patient's use of biotin. Lab Interpretation (test code = 37622-5) Abnormal [facility]an[facility] (TTE)2021-08-17 22:14:20* Test Item Value Reference Range Interpretation Comme nts Ao root annulus (test code = 6459951505) 3.3 cm Ao root diam (test code = 3320799410) 3.30 cm Aortic root (test code = 2354960543) 3.3 cm LA size (test code = 9970274620) 3.7 cm LVOT diameter (test code = 1152215776) 2.00 cm LVIDD (test code = 2622921400) 5.90 cm IVS (test code = 9975216575) 1.26 cm Interventricular Septum Diastolic Thickness by 2D (test code = 7183652) 1.26 cm LVPWD (test code = 7377129718) 1.19 cm PW (test code = 7633779486) 1.19 cm 0.6-1.1 EF(Teich) (test code = 3365399970) 46.60 % LVIDS (test code = 9507757307) 4.50 cm FS (test code = 9178448348) 24 % EF - 2D (test code = 77575637) 46.60 % LAV(MOD-sp4) (test code = 4010807705) 65.30 mL MV Peak E Narciso (test code = 4925399835) 126.4 cm/s E wave decelartion time (test code = 9617445063) 0.14 s MV Prop V (test code = 3781302466) 35.00 cm/s LVOT stroke volume (test code = 7429488751) 45.10 cm3 LVOT peak narciso (test code = 5023663899) 90.0 cm/s LVOT mn grad (test code = 8659010795) mmHg AV LVOT peak gradient (test code = 9128697213) mmHg LVOT peak VTI (test code = 5357900914) 14.4 cm LV V1 mean (test code = 0089822822) 63.00 cm/s Aortic valve mean velocity (test code = 7869068686) 76.8 cm/s Ao peak narciso (test code = 9440935651) 125.5 cm/s Ao VTI (test code = 1731239917) 17.0 cm AV area by cont VTI (test code = 0774843182) 2.6 cm2 AV area peak narciso (test code = 7810461933) 2.2 cm2 Ao max PG (test code = 9381199741) 6.30 mm[Hg] AV peak gradient (test code = 8852919707) mmHg AV valve area (test code = 7443874687) 2.60 cm2 AV mean gradient (test code = 0746804533) mmHg TR Peak Narciso (test code = 9838380542) 119.4 cm/s Triscuspid Valve Regurgitation Peak Gradient (test code = 7466211972) mmHg Tapse (test code = 0507074725) 1.95 cm LA volume (BP) (test code = 6268836114) 73.5 mL LAV(MOD-sp2) (test code = 6443190054) 74.00 mL LA Volume Index (BP) (test code = 8528372114) 32.5 mL/m2 LV Diastolic Volume (BP) (test code = 9690884551) 232.2 mL EF(MOD-bp) (test code = 6835793468) 33.10 % LV Systolic Volume (BP) (test code = 6390097536) 155.2 mL SV(MOD-bp) (test code = 3783710657) 76.90 mL EF (test code = 4949164565) 33 % Left Ventricular Stroke Volume by 2-D Biplane-MOD (test code = 0425863) 76.9 mL Radiology Study observation (narrative) (test code = 74524-3) EBEN (test code = EBEN) ?Left?Ventricle: Left ventricle size is normal. There is mild concentric hypertrophy. Severe global hypokinesis present. Severely reduced systolic function with a visually estimated EF of 20 - 25%. There is restrictive diastolic dysfunction. Elevated left ventricular filling pressure. ?Right?Ventricle: Right ventricle is mildly dilated. Normal systolic function. ?Pericardium: The pericardium is normal. No pericardial effusion. Tex Niño MD VitalsHeit Weight BSA (Calculated - sq m) BP Pulse 6' (1.829 m) 230 lb (104.3 kg) 2.3 sq meters 183/126 82 [facility] (29565[facility] (ALB,T.PRO,BILI T,BU/BC,ALT,AST,ALK PHOS)2021-08-17 17:59:20* Test Item Value Reference Range Interpretation Comme nts TOTAL BILI (test code = 3290899354) 0.4 mg/dL 0.1-1.1 BILI UNCON (test code = 1658476795) 0.4 mg/dL 0.1-1.1 BILI CONJ (test code = 4279062850) 0.0 mg/dL 0.0-0.3 T PROTEIN (test code = 9716674637) 6.4 g/dL 6.3-8.2 ALBUMIN (test code = 9789944513) 3.7 g/dL 3.5-5.0 ALK PHOS (test code = 5168760405) 64 U/L 34-122 ALTv (test code = 1742-6) 39 U/L 5-50 AST(SGOT) (test code = 0988761222) 30 U/L 13-40 Lab Interpretation (test cod e = 32470-9) Normal [facility] CenterFERR[facility] [id number] 17:21:19* Test Item Value Reference Range Interpretation Comme nts FERRITIN (test code = 2504868286) 29.7 ng/mL 18.0-464.0 EBEN (test code = EBEN) Biotin has been reported to cause a negative bias, interpret results relative to patient's use of biotin. Lab Interpretation (test code = 47968-9) Normal [facility] CenterTHYROID STIMULATING [id number] 17:14:24 * Test Item Value Reference Range Interpretation Comme nts TSH (test code = 9627771410) See_Comment [Automated [employer] ge] The system which generated this result transmitted reference range: 0.45 - 4.70 mIU/L. The reference range was not used to interpret this result as normal/abnormal. Lab Interpretation (test code = 73231-1) Normal [facility] CenterN-TERMINAL [id number] 16:55:55* Test Item Value Reference Range Interpretation Comme nts NT-proBNP (test code = 1931040274) 5070 pg/mL See_Comment H [Automated message] The system which generated this result transmitted reference range: <=125. The reference range was not used to interpret this result as normal/abnormal. EBEN (test code = EBEN) Biotin has been reported to cause a negative bias, interpret results relative to patient's use of biotin. Lab Interpretation (test code = 17680-8) Abnormal [facility]TR[facility] [id number] 16:55:55* Test Item Value Reference Range Interpretation Comments TROPONIN I (test code = 3233267042) 0.117 ng/mL See_Comment H [Automated message] The system which generated this result transmitted reference range: <=0.034. The reference range was not used to interpret this result as normal/abnormal. EBEN (test code = EBEN) Reference (Normal) Range (defined by the 99th percentile reference [...] patient's use of biotin. Lab Interpretation (test code = 35749-7) Abnormal [facility] CenterIRON [id number] 16:52:53* Test Item Value Reference Range Interpretation Comme nts IRON (test code = 4719353279) 51 ug/dL 50-160 TIBC (test code = 2943547985) 298 ug/dL 250-410 % FE SAT (test code = 5358904004) 17 % 20-50 L Lab Interpretation (test cod e = 21604-7) Abnormal [facility]2022-04-14 16:41:35* Test Item Value Reference Range Interpretation Comme nts MAGNESIUM (test code = 3060735791) 1.6 mg/dL 1.7-2.4 L Lab Interpretation (test cod e = 41083-9) Abnormal [facility] CenterPHOSPHORUS2022-04-14 16:41:35* Test Item Value Reference Range Interpretation Comme nts PHOSPHORUS (test code = 1673788131) 4.0 mg/dL 2.5-5.0 Lab Interpretation (test cod e = 14038-5) Normal [facility] METABOLIC PANEL (NA, K, CL, CO2, GLUCOSE, BUN, CREATININE, CA)2021-08-17 16:41:35* Test Item Value Reference Range Interpretation Comme nts NA (test code = 0937892417) 134 mmol/L 135-145 L K (test code = 1392206584) 3.6 mmol/L 3.5-5.0 CL (test code = 7357982205) 99 mmol/L 98-108 CO2 TOTAL (test code = 5876716030) 32 mmol/L 23-31 H AGAP (test code = 6357361776) 2-16 BUN (test code = 3368267641) 24 mg/dL 7-23 H GLUCOSE (test code = 5564141205) 111 mg/dL 70-110 H CREATININE (test code = 5662862709) 1.60 mg/dL 0.60-1.25 H CALCIUM (test code = 2006432168) 8.8 mg/dL 8.6-10.6 eGFR (test code = 5778028335) mL/min/1.73m2 EBEN (test code = EBEN) Association of [...] or abnormalities in imaging tests). Lab Interpretation (test code = 12851-0) Abnormal [facility] WITH [id number] 16:00:05* Test Item Value Reference Range Interpretation Comme nts WBC (test code = 6690-2) See_Comment [Automated [employer]] The system which generated this result transmitted reference range: 4.20 - 10.70 10*3/?L. The reference range was not used to interpret this result as normal/abnormal. RBC (test code = 789-8) See_Comment L [Automated [employer]] The system which generated this result transmitted reference range: 4.26 - 5.52 10*6/?L. The reference range was not used to interpret this result as normal/abnormal. HGB (test code = 718-7) 12.2 g/dL 12.2-16.4 HCT (test code = 4544-3) 36.2 % 38.4-49.3 L MCV (test code = 787-2) 85.8 fL 81.7-95.6 MCH (test code = 785-6) 28.9 pg 26.1-32.7 MCHC (test code = 786-4) 33.7 g/dL 31.2-35.0 RDW-SD (test code = 18745-2) 39.5 fL 38.5-51.6 RDW-CV (test code = 788-0) 12.6 % 12.1-15.4 PLT (test code = 777-3) See_Comment H [Automated [employer] ge] The system which generated this result transmitted reference range: 150 - 328 10*3/?L. The reference range was not used to interpret this result as normal/abnormal. MPV (test code = 97690-2) 9.4 fL 9.8-13.0 L NRBC/100 WBC (test code = 1117817496) See_Comment [Automated [employer] ssage] The system which generated this result transmitted reference range: 0.0 - 10.0 /100 WBCs. The reference range was not used to interpret this result as normal/abnormal. NRBC x10^3 (test code = 6080762156) <0.01 See_Comment [Automated [employer] ge] The system which generated this result transmitted reference range: 10*3/?L. The reference range was not used to interpret this result as normal/abnormal. GRAN MAT (NEUT) % (test code = 770-8) 65.6 % IMM GRAN % (test code = 2196837525) 0.20 % LYMPH % (test code = 736-9) 23.8 % MONO % (test code = 5905-5) 6.7 % EOS % (test code = 713-8) 3.2 % BASO % (test code = 706-2) 0.5 % GRAN MAT x10^3(ANC) (test code = 3660222085) 6.58 10*3/uL 1.99-6.95 IMM GRAN x10^3 (test code = 4358670283) <0.03 0.00-0.06 LYMPH x10^3 (test code = 731-0) 2.39 10*3/uL 1.09-3.23 MONO x10^3 (test code = 742-7) 0.67 10*3/uL 0.36-1.02 EOS x10^3 (test code = 711-2) 0.32 10*3/uL 0.06-0.53 BASO x10^3 (test code = 704-7) 0.05 10*3/uL 0.01-0.09 Lab Interpretation (test code = 37909-8) Abnormal [facility]"
--- NOTE | 2023-04-26 08:20 | ER ---
Nurse's Notes [facility] Name: Wagner Padron Age: 38 yrs Sex: Male : 1985 Arrival Date: 04/26/2023 Time: 06:44 Bed 10 Private MD: Diagnosis: Gout, unspecified Presentation: 04/26 06:55 Chief complaint: Patient states: he has been wearing his work boots daily all week, and ap3 is causing a flair up of his gout. patient rates the pain in his right foot to be an 8/10 at this time. Coronavirus screen: At this time, the client does not indicate any symptoms associated with coronavirus-19. Ebola Screen: No symptoms or risks identified at this time. Initial Sepsis Screen: Does the patient meet any 2 criteria? No. Patient's initial sepsis screen is negative. Does the patient have a suspected source of infection? No. Patient's initial sepsis screen is negative. Risk Assessment: Do you want to hurt yourself or someone else? Patient reports no desire to harm self or others. Onset of symptoms was April 26, 2023. 06:55 Method Of Arrival: Ambulatory ap3 06:55 Acuity: HERMELINDA 4 ap3 Triage Assessment: 06:57 General: Appears in no apparent distress. Behavior is calm, cooperative, appropriate ap3 for age. Pain: Complains of pain in right foot Pain currently is 8 out of 10 on a pain scale. Neuro: Level of Consciousness is awake, alert, obeys commands, Oriented to person, place, time, situation, Appropriate for age. Cardiovascular: Patient's skin is warm and dry. Respiratory: Airway is patent Respiratory effort is even, unlabored, Respiratory pattern is regular, symmetrical. Historical: - Allergies: 06:56 No Known Allergies; ap3 - Home Meds: 06:56 metoprolol tartrate 100 mg Oral tab 1 tab once daily [Active]; lisinopril 10 mg Oral ap3 tab 1 tab BID [Active]; Colchicine Oral for acute gouty arthritis [Active]; - PMHx: 06:56 CHF; Gout; High Cholesterol; Hypercholesterolemia; Hypertension; ap3 - Immunization history:: Adult Immunizations unknown, Client reports receiving the 2nd dose of the Covid vaccine. - Social history:: Smoking status: Reported history of juuling and/or vaping. - Family history:: not pertinent. - Hospitalizations: : No recent hospitalization is reported. Screenin:57 [facility] ED Fall Risk Assessment (Adult) History of falling in the last 3 months, ap3 including since admission No falls in past 3 months (0 pts). Abuse screen: Denies threats or abuse. Nutritional screening: No deficits noted. Tuberculosis screening: No symptoms or risk factors identified. Assessment: 08:07 Reassessment: Patient and/or family updated on plan of care and expected duration. Pain ap3 level reassessed. Patient is alert, oriented x 3, equal unlabored respirations, skin warm/dry/pink. Vital Signs: 06:55 BP 149 / 113; Pulse 83; Resp 17; Temp 98.4; Pulse Ox 100% ; Weight 104.33 kg; Height 6 ap3 ft. 0 in. ; Pain 8/10; 08:41 Pulse 76; Resp 18; Temp 97.8; Pulse Ox 100% on R/A; ap3 06:55 Body Mass Index 31.19 (104.33 kg, 182.88 cm) ap3 06:55 Pain Scale: Adult ap3 ED Course: 06:46 Patient arrived in ED. jj6 06:56 Triage completed. ap3 06:57 Arm band placed on left wrist. ap3 06:59 Kirby Cortes MD is Attending Physician. rn 08:16 Abi Perdomo RN is Primary Nurse. ap3 08:40 Provided Education on: discharge instructions. ap3 08:40 Patient has correct armband on for positive identification. Bed in low position. Call ap3 light in reach. Pulse ox on. NIBP on. 08:40 No provider procedures requiring assistance completed. Patient did not have IV access ap3 during this emergency room visit. Administered Medications: 07:35 Drug: Dexamethasone IM 10 mg IM once Route: IM; Site: left gluteus; ap3 08:25 Follow up: Response: No adverse reaction ap3 07:35 Drug: [place] PO 10 mg-325 mg 1 tabs PO once Route: PO; ap3 08:26 Follow up: Response: No adverse reaction; Pain is unchanged, physician notified ap3 08:25 Drug: morphine IM 4 mg IM once Route: IM; Site: left deltoid; ap3 08:41 Follow up: Response: No adverse reaction; Pain is decreased ap3 Medication: 08:41 VIS not applicable for this client. ap3 Outcome: 08:19 Discharge ordered by . rn 08:40 Discharged to home ambulatory, ap3 08:40 Condition: good 08:40 Discharge instructions given to patient, Instructed on discharge instructions, follow up and referral plans. medication usage, Demonstrated understanding of instructions, follow-up care, medications, Prescriptions given X 2, 09:04 Patient left the ED. ap3 Signatures: Kirby Cortes MD MD rn Prokisch, Amanda, RN RN ap3 Chantel Edmond jj6
--- NOTE | 2023-04-26 08:20 | EDPHYS ---
Physician Documentation [facility] Name: Wagner Padron Age: 38 yrs Sex: Male : 1985 Arrival Date: 04/26/2023 Time: 06:44 Bed 10 Private MD: ED Physician Kirby Cortes HPI: 04/26 07:45 This 38 yrs old Black Male presents to ER via Ambulatory with complaints of POSSIBLE rn GOUT FLARE-UP. 07:45 The patient presents with pain, that is acute. The complaints affect the right foot. rn Onset: The symptoms/episode began/occurred yesterday. Modifying factors: The symptoms are alleviated by Colchicine the symptoms are aggravated by weight bearing, movement, wearing shoes. Severity of symptoms: At their worst the symptoms were moderate, in the emergency department the symptoms are unchanged. The patient has experienced similar episodes in the past. Patient reports having gout flare in right foot again. States has been wearing work boots lately and has been upsetting right midfoot. No fever or chills. Pain is identical in type and location to previous gout flares. States colchicine helps but not taking it away, comes in for steroid injection and usually takes it away. . Historical: - Allergies: 06:56 No Known Allergies; ap3 - Home Meds: 06:56 metoprolol tartrate 100 mg Oral tab 1 tab once daily [Active]; lisinopril 10 mg Oral ap3 tab 1 tab BID [Active]; Colchicine Oral for acute gouty arthritis [Active]; - PMHx: 06:56 CHF; Gout; High Cholesterol; Hypercholesterolemia; Hypertension; ap3 - Immunization history:: Adult Immunizations unknown, Client reports receiving the 2nd dose of the Covid vaccine. - Social history:: Smoking status: Reported history of juuling and/or vaping. - Family history:: not pertinent. - Hospitalizations: : No recent hospitalization is reported. ROS: 07:45 Constitutional: Negative for fever, chills, and weight loss, Cardiovascular: Negative rn for chest pain, palpitations, and edema, MS/Extremity: Positive for right foot pain Skin: Negative for injury, rash, and discoloration, Neuro: Negative for headache, weakness, numbness, tingling, and seizure, Exam: 07:45 Constitutional: This is a well developed, well nourished patient who is awake, alert, rn and in no acute distress. Cardiovascular: Regular rate and rhythm. No pulse deficits. Skin: Warm, dry with normal turgor. Normal color with no rashes, no lesions, and no evidence of cellulitis. MS/ Extremity: Pulses equal, no cyanosis. Neurovascular intact. No open wounds. No erythema or warmth. No fluctuance or streaking. Vital Signs: 06:55 BP 149 / 113; Pulse 83; Resp 17; Temp 98.4; Pulse Ox 100% ; Weight 104.33 kg; Height 6 ap3 ft. 0 in. ; Pain 8/10; 08:41 Pulse 76; Resp 18; Temp 97.8; Pulse Ox 100% on R/A; ap3 06:55 Body Mass Index 31.19 (104.33 kg, 182.88 cm) ap3 06:55 Pain Scale: Adult ap3 MDM: 07:00 Patient medically screened. rn 08:18 Differential diagnosis: arthritis, gout. Data reviewed: vital signs, nurses notes, and rn as a result, I will discharge patient. Counseling: I had a detailed discussion with the patient and/or guardian regarding the historical points, exam findings, and any diagnostic results supporting the discharge/admit diagnosis, the need for outpatient follow up, to return to the emergency department if symptoms worsen or persist or if there are any questions or concerns that arise at home. Response to treatment: the patient's symptoms have mildly improved after treatment, and as a result, I will discharge patient. Special discussion: I discussed with the patient/guardian in detail that at this point there is no indication for admission to the hospital. It is understood, however, that if the symptoms persist or worsen the patient needs to return immediately for re-evaluation. Based on the history and exam findings, there is no indication for further emergent testing or inpatient evaluation. I discussed with the patient/guardian the need to see the primary care provider for further evaluation of the symptoms. ED course: Pain identical to previous gout flares, no indication for emergent evaluation at this time, no sign of infection and pulses strong. No trauma noted. Will discharge home with pain medication and steroids as he is already on colchicine, return precautions given and understood.. Administered Medications: 07:35 Drug: Dexamethasone IM 10 mg IM once Route: IM; Site: left gluteus; ap3 08:25 Follow up: Response: No adverse reaction ap3 07:35 Drug: [place] PO 10 mg-325 mg 1 tabs PO once Route: PO; ap3 08:26 Follow up: Response: No adverse reaction; Pain is unchanged, physician notified ap3 08:25 Drug: morphine IM 4 mg IM once Route: IM; Site: left deltoid; ap3 08:41 Follow up: Response: No adverse reaction; Pain is decreased ap3 Disposition Summary: 04/26/23 08:19 Discharge Ordered Notes: Location: Home rn Problem: an acute exacerbation rn Symptoms: have improved rn Condition: Stable rn Diagnosis - Gout, unspecified rn Followup: rn - With: Private Physician - When: As needed - Reason: Recheck today's complaints, Re-evaluation by your physician Discharge Instructions: - Discharge Summary Sheet rn - Gout rn Forms: - Medication Reconciliation Form rn - Thank You Letter rn - Antibiotic early morning - Prescription Opioid Use rn - Patient Portal Instructions rn - Leadership Thank You Letter rn Prescriptions: - Tramadol 50 mg Oral Tablet - take 1 tablet ORAL route every 8 hours as needed; 12 tablet; Refills: 0, rn Product Selection Permitted - Medrol ([place]) 4 mg Oral Tablets, Dose Pack - take 1 tablet ORAL route as directed - follow package instructions; 1 packet; rn Refills: 0, Product Selection Permitted Signatures: Kirby Cortes MD MD rn Prokisch, Amanda, RN RN ap3
[2023-04-26 09:44] VITALS: BP 149/113; TEMP 97.8; O2SAT 100
== END ==
LOC: ER 06:44
DX: M10.9 Gout, unspecified (principal)
CPT/HCPCS: 96372; 99284; J1100

== ENCOUNTER 2023-05-04 20:07 | Observation (INO) | payer OTHER ==
--- NOTE | 2023-05-04 21:32 | RAD REPORT ---
EXAM DESCRIPTION: US[facility]rem[facility]05/04/2023 9:06 pm CLINICAL HISTORY: Right leg pain and swelling. COMPARISON: None. FINDINGS: Right common femoral, superficial femoral, greater saphenous, popliteal and right posterio r tibial veins are compressible and demonstrate augmentation. Doppler demonstrates good flow. Grayscale, color and spectral analysis performed on all vessels IMPRESSION: No evidence of deep venous thrombosis involving the right lower extremity.
--- NOTE | 2023-05-04 21:33 | RAD REPORT ---
EXAM DESCRIPTION: RAD - Foot Right 3 View - 05/04/2023 9:12 pm CLINICAL HISTORY: Right foot pain FINDINGS: No fracture or dislocation is seen No significant bone or joint abnormality noted
[2023-05-04] MEDS ORDERED: ACETAMINOPHEN 500 MG TAB ONE (22:15)
[2023-05-04] MEDS ORDERED: MORPHINE 4 MG/ML SYR ONE (22:15)
[2023-05-04] MEDS ORDERED: NA CHLORIDE 0.9% 1,000 ML ONE (22:16)
[2023-05-04 22:31] LABS: Absolute Lymphocytes (CBC) 1.7 K/uL (0.7-4.9); Hematocrit 36.6 % (39.6-49.0); Lymphocytes % 10.4 % (15.3-44.8); MCV 84.6 fL (80-100); MPV 7.9 fL (7.6-11.3); Platelets 463 thou/uL (152-406); RBC Red Blood Cell Count 4.32 M/uL (4.33-5.43)
[2023-05-04 22:44] LABS: Albumin 3.4 g/dL (3.4-5.0); Bilirubin Total 0.4 mg/dL (0.2-1.0); Potassium 3.4 mEq/L (3.5-5.1); Protein, Total 8.2 g/dL (6.4-8.2)
[2023-05-04] MEDS ORDERED: VANCOMYCIN 1 GM/VIAL ONE (23:15)
[2023-05-04] MEDS ORDERED: NA CHLORIDE 0.9% 500 ML ONE (23:15)
[2023-05-04] MEDS ORDERED: VANCOMYCIN 500 MG/VIAL ONE (23:15)
[2023-05-04] MEDS ORDERED: NA CHLORIDE 0.9% 100 ML ONE (23:16)
[2023-05-04] MEDS ORDERED: PIPERACIL/TAZO 3.375 GM VIAL IV ONE (23:16)
[2023-05-04] MEDS ORDERED: LABETALOL 20 MG/4ML SYRINGE IV ONE (23:16)
--- NOTE | 2023-05-04 23:46 | EDPHYS ---
Physician Documentation [facility] Name: Wagner Padron Age: 38 yrs Sex: Male : 1985 Arrival Date: 05/04/2023 Time: 20:07 Bed 14 Private MD: ED Physician Denilson Traore HPI: 05/04 20:35 This 38 yrs old Black Male presents to ER via Wheelchair with complaints of POSSIBLE ec2 GOUT. 20:35 Patient with history of gout arrives today due to concern for right foot pain. States ec2 that he had noticed some redness and swelling over the great toe that now extends to the midfoot. Patient reports no fevers or chills, no nausea or vomiting. Reports that he has previously received colchicine for his pain. Patient reports no nausea or vomiting, no cough or cold symptoms.. Historical: - PMHx: 20:29 CHF; Gout; High Cholesterol; Hypercholesterolemia; Hypertension; hb - PSHx: 20:29 Leg sx; right femur surgery; hb - Immunization history:: Adult Immunizations up to date. - Social history:: Smoking status: Patient denies any tobacco usage or history of. ROS: 20:35 Constitutional: as per hpi ec2 Exam: 20:35 Constitutional: GEN: NAD Head: atraumatic Eyes: EOMI Ears: External ears are ec2 normal. CV: regular rate LUNGS: no respiratory distress ABD: non-distended SKIN: Erythema noted extending from the midfoot on the dorsum of the right foot to the great toe, slight warmth appreciated, minimal swelling noted. MSK: no evidence of trauma NEURO: moves all extremities equally Vital Signs: 20:29 BP 227 / 138; Pulse 115; Resp 20; Temp 98; Pulse Ox 100% ; hb 22:15 BP 237 / 135; Pulse 114; Resp 20; Pulse Ox 100% ; la4 22:45 BP 213 / 148; Pulse 114; Resp 20; Pulse Ox 98% ; la4 23:15 BP 217 / 141; Pulse 111; Resp 20; Pulse Ox 98% ; la4 23:45 BP 195 / 120; Pulse 102; Resp 20; Pulse Ox 98% ; la4 23:45 BP 195 / 120; Pulse 105; ec2 05/05 01:45 BP 204 / 133; Pulse 114; Resp 20; Pulse Ox 100% ; la4 02:45 BP 220 / 139; Pulse 114; Resp 20; Pulse Ox 100% ; la4 03:00 BP 201 / 128; la4 03:15 BP 189 / 140; Pulse 114; Resp 20; Pulse Ox 100% ; la4 03:35 BP 217 / 129; Pulse 114; Pulse Ox 98% ; la4 05:30 BP 166 / 141; Pulse 103; Resp 20; Pulse Ox 96% on R/A; la4 19:27 BP 139 / 87; Pulse 86; Resp 15 S; Temp 98.4(O); Pulse Ox 99% on R/A; ha1 [place] Coma Score: 02:45 Eye Response: spontaneous(4). Motor Response: obeys commands(6). Verbal Response: la4 oriented(5). Total: 15. 02:45 Eye Response: spontaneous(4). Motor Response: obeys commands(6). Verbal Response: la4 oriented(5). Total: 15. 05:30 Eye Response: spontaneous(4). Motor Response: obeys commands(6). Verbal Response: la4 oriented(5). Total: 15. MDM: 05/04 20:35 Patient medically screened. ec2 20:35 Data reviewed: vital signs. ED course: Patient arrives today for evaluation of right ec2 foot pain and swelling. Examination remarkable for skin findings as noted above. Will obtain radiographs of the foot, lower extremity Doppler, lab work and treat the patient's pain. I suspect gout causing the patient's symptoms, have a low clinical suspicion for septic joint, possible cellulitis.. 21:43 ED course: Foot x-ray and DVT ultrasound shows no acute process. . ec2 22:46 ED course: Metabolic profile shows slight hypokalemia noted, renal dysfunction noted as ec2 well. CBC does show leukocytosis. Given that the patient has leukocytosis as well as tachycardia, patient meets SIRS criteria, accordingly given possible cellulitis, I will add on a septic workup with antibiotic management. . 23:43 ED course: EKG independently reviewed and interpreted by me, shows sinus tachycardia, ec2 rate 102, no acute ST segment elevations, intervals are nonconcerning. 23:43 ED course: I discussed the case with the hospitalist, pending admission.. ec2 05/04 20:35 Order name: CBC with Diff; Complete Time: 22:45 ec2 05/04 20:35 Order name: CMP; Complete Time: 22:45 ec2 05/04 22:47 Order name: Blood Culture Adult (2) ec2 05/04 22:47 Order name: Lactate w/ 2H reflex if indic.; Complete Time: 23:45 ec2 05/05 00:16 Order name: CBC with Automated Diff EDMS 05/05 00:16 Order name: CBC with Automated Diff EDMS 05/05 00:16 Order name: Comprehensive Metabolic Panel EDMS 05/05 00:16 Order name: Comprehensive Metabolic Panel EDMS 05/05 00:16 Order name: Lipid Profile EDMS 05/05 00:16 Order name: Lipid Profile EDMS 05/05 00:16 Order name: Magnesium EDMS 05/05 00:16 Order name: Magnesium EDMS 05/05 01:11 Order name: Glucose, Ancillary Testing; Complete Time: 01:57 EDMS 05/04 20:35 Order name: Foot Right 3 View XRAY; Complete Time: 21:42 ec2 05/04 20:35 Order name: Extremity Venous Uni Ltd US; Complete Time: 21:42 ec2 05/05 09:01 Order name: RAD EDMS 05/04 22:47 Order name: EKG; Complete Time: 22:47 ec2 05/04 22:47 Order name: Accucheck; Complete Time: 01:04 ec2 05/04 22:47 Order name: Cardiac monitoring; Complete Time: 23:59 ec2 05/04 22:47 Order name: EKG - Nurse/Tech; Complete Time: 23:46 ec2 05/04 22:47 Order name: IV Saline Lock - Large Bore; Complete Time: 23:50 ec2 05/04 22:47 Order name: Labs collected and sent; Complete Time: 23:50 ec2 05/04 22:47 Order name: O2 Per Protocol; Complete Time: 23:59 ec2 05/04 22:47 Order name: O2 Sat Monitoring; Complete Time: 23:59 ec2 05/04 22:47 Order name: Vital Signs; Complete Time: 23:59 ec2 Administered Medications: 22:30 Drug: Acetaminophen PO 1000 mg PO once Route: PO; la4 22:30 Drug: morphine IVP or IV 4 mg IVP once over 4 mins Route: IVP; Infused Over: 4 mins; la4 Site: right antecubital; 22:30 Drug: NS 0.9% IV 1000 ml IV at 1 bolus Per protocol; 1000 mL bolus Route: IV; Rate: 1 la4 bolus; Site: right antecubital; 23:30 Drug: Labetalol IV 10 mg IV at bolus once Route: IV; Rate: bolus; Site: right forearm; la4 23:59 Drug: vancoMYCIN IVPB 1.5 grams IVPB at calculated rate once Route: IVPB; Rate: la4 calculated rate; Site: right forearm; 23:59 Drug: Piperacillin-Tazobactam IVPB 3.375 grams IVPB once over 60 mins; (mix in NS 100 la4 mL) Route: IVPB; Infused Over: 60 mins; Site: right forearm; 05/05 01:20 Follow up: Response: No adverse reaction; IV Status: Completed infusion; IV Intake: la4 100ml Disposition Summary: 05/04/23 23:45 Hospitalization Ordered Notes: Hospitalization Status: Inpatient Admission ec2 Provider: Jhony Javier ec2 Condition: Stable ec2 Problem: an acute exacerbation ec2 Symptoms: have improved ec2 Bed/Room Type: Standard ec2 Location: Telemetry/MedSurg (Inpatient)(05/05/23 19:11) sp Room Assignment: [facility](05/05/23 19:11) sp Diagnosis - Cellulitis of right toe ec2 - Sepsis, unspecified organism ec2 Forms: - Medication Reconciliation Form ec2 - SBAR form ec2 - Leadership Thank You Letter ec2 Critical care time excluding procedures: 05/04 22:47 Critical care time: Bedside Care: 30 minutes, Consultation: 5 minutes. Total time: 35 ec2 minutes Signatures: Dispatcher [employer] Elba Kumari FNP-C FRONT END ENGINEER-Bethany De Paz Cindy, RN RN cg Sherrie Medina RN RN hb Corral, Edwin, MD MD ec2 Yasmin Graham RN RN la4 Corrections: (The following items were deleted from the chart) 05/05 01:42 05/04 23:45 Telemetry/MedSurg (Inpatient) ec2 cg 05/05 01:42 05/04 23:45 ec2 cg 05/05 19:11 01:42 [facility] ER HOLD cg sp 19:11 01:42 ERHOLD- cg sp
--- NOTE | 2023-05-04 23:46 | ER ---
Nurse's Notes [facility] Name: Wagner Padron Age: 38 yrs Sex: Male : 1985 Arrival Date: 05/04/2023 Time: 20:07 Bed 14 Private MD: Diagnosis: Cellulitis of right toe;Sepsis, unspecified organism Presentation: 05/04 20:29 Chief complaint: Patient states: GOUT FLARE R FOOT LAST NIGHT. Coronavirus screen: At hb this time, the client does not indicate any symptoms associated with coronavirus-19. Ebola Screen: No symptoms or risks identified at this time. Initial Sepsis Screen: Does the patient meet any 2 criteria? No. Patient's initial sepsis screen is negative. Does the patient have a suspected source of infection? No. Patient's initial sepsis screen is negative. Risk Assessment: Do you want to hurt yourself or someone else? Patient reports no desire to harm self or others. Onset of symptoms was May 03, 2023 at 21:00. 20:29 Method Of Arrival: Wheelchair hb 20:29 Acuity: HERMELINDA 4 hb Triage Assessment: 20:30 General: Appears uncomfortable, Behavior is cooperative, appropriate for age, anxious. hb Pain: Complains of pain in right foot. Historical: - PMHx: 20:29 CHF; Gout; High Cholesterol; Hypercholesterolemia; Hypertension; hb - PSHx: 20:29 Leg sx; right femur surgery; hb - Immunization history:: Adult Immunizations up to date. - Social history:: Smoking status: Patient denies any tobacco usage or history of. Screenin:00 [facility] ED Fall Risk Assessment (Adult) History of falling in the last 3 months, la4 including since admission No falls in past 3 months (0 pts) Confusion or Disorientation No (0 pts) Intoxicated or Sedated No (0 pts) Impaired Gait No (0 pts) Mobility Assist Device Used No (0 pt) Altered Elimination No (0 pt) Score/Fall Risk Level 0 - 2 = Low Risk Oriented to surroundings, Maintained a safe environment, Educated pt \T\ family on fall prevention, incl call for assistance when getting out of bed, Provided non-skid footwear, Hourly rounding (assess needs \T\ fall precautionary measures) done. 23:00 Abuse screen: Denies threats or abuse. Denies injuries from another. Nutritional la4 screening: No deficits noted. Tuberculosis screening: No symptoms or risk factors identified. Assessment: 23:00 General: Appears in no apparent distress. uncomfortable, Behavior is calm, cooperative, la4 appropriate for age. 23:00 Pain: Complains of pain in right ankle, lateral aspect of right foot, right Achilles, la4 right heel, medial aspect of right foot, anterior aspect of right ankle and dorsum of right foot Pain does not radiate. Pain currently is 9 out of 10 on a pain scale. Quality of pain is described as sharp, throbbing, Pain began 1 day ago. Is continuous, Alleviated by nothing. Aggravated by increased activity. Neuro: No deficits noted. Varela Agitation-Sedation Scale (RASS): 0 - Alert and Calm Level of Consciousness is awake, alert, confused, Oriented to person, place, time, situation, Appropriate for age. Cardiovascular: No deficits noted. Denies chest pain, Heart tones S1 S2 Capillary refill < 3 seconds is brisk Patient's skin is warm and dry. Pulses are all present. Rhythm is sinus rhythm. Respiratory: No deficits noted. Airway is patent Respiratory effort is even, unlabored, Respiratory pattern is regular, symmetrical, Breath sounds are clear bilaterally. GI: No deficits noted. No signs and/or symptoms were reported involving the gastrointestinal system. Abdomen is round Bowel sounds present X 4 quads. Abd is soft and non tender X 4 quads. : No signs and/or symptoms were reported regarding the genitourinary system. Derm: No signs and/or symptoms reported regarding the dermatologic system. Musculoskeletal: Circulation, motion, and sensation intact. Capillary refill < 3 seconds, is brisk, Range of motion: intact in all extremities, Swelling present in right foot Tenderness present in right foot. 05/05 00:40 Reassessment: Patient and/or family updated on plan of care and expected duration. Pain la4 level reassessed. Pt placed on hospital bed and notified that he will be a ER hold at this time due to no beds available in-patient side. 06:01 Reassessment: Patient and/or family updated on plan of care and expected duration. Pain la4 level reassessed. Pt c/o shortness of breath. Pt BP remains elevated but heart rate. Noted at this time that the patient has had a whole pitcher of water in addition to 5 cups and a bottle of water sitting by the bed. The patient states that he drank the water because the pain medication made his mouth dry. Pt notified that with CHF his fluid intake would have to be monitored. Elba ARAIZA notified of pt c/o and IV lasix ordered. Pitcher and additional cups removed from room. Pt notified of restricting fluids until further notice. Cup of ice chips given and will continue to monitor Patient states symptoms have not improved. Respiratory: Airway is patent Respiratory effort is even, unlabored, Respiratory pattern is regular, symmetrical, Placed on nasal cannula for support due to c/o difficulty breathing. Pt notified to decrease oral water intake due to CHF. 20:03 Reassessment: report given to SAMANTHA Miller. ha1 Vital Signs: 05/04 20:29 BP 227 / 138; Pulse 115; Resp 20; Temp 98; Pulse Ox 100% ; hb 22:15 BP 237 / 135; Pulse 114; Resp 20; Pulse Ox 100% ; la4 22:45 BP 213 / 148; Pulse 114; Resp 20; Pulse Ox 98% ; la4 23:15 BP 217 / 141; Pulse 111; Resp 20; Pulse Ox 98% ; la4 23:45 BP 195 / 120; Pulse 102; Resp 20; Pulse Ox 98% ; la4 23:45 BP 195 / 120; Pulse 105; ec2 05/05 01:45 BP 204 / 133; Pulse 114; Resp 20; Pulse Ox 100% ; la4 02:45 BP 220 / 139; Pulse 114; Resp 20; Pulse Ox 100% ; la4 03:00 BP 201 / 128; la4 03:15 BP 189 / 140; Pulse 114; Resp 20; Pulse Ox 100% ; la4 03:35 BP 217 / 129; Pulse 114; Pulse Ox 98% ; la4 05:30 BP 166 / 141; Pulse 103; Resp 20; Pulse Ox 96% on R/A; la4 19:27 BP 139 / 87; Pulse 86; Resp 15 S; Temp 98.4(O); Pulse Ox 99% on R/A; ha1 Hume Coma Score: 02:45 Eye Response: spontaneous(4). Motor Response: obeys commands(6). Verbal Response: la4 oriented(5). Total: 15. 02:45 Eye Response: spontaneous(4). Motor Response: obeys commands(6). Verbal Response: la4 oriented(5). Total: 15. 05:30 Eye Response: spontaneous(4). Motor Response: obeys commands(6). Verbal Response: la4 oriented(5). Total: 15. ED Course: 05/04 20:08 Patient arrived in ED. jj6 20:08 Denilson Traore MD is Attending Physician. ec2 20:29 Arm band placed on. hb 20:30 Triage completed. hb 21:07 Extremity Venous Uni Ltd US In Process Unspecified. EDMS 21:13 Foot Right 3 View XRAY In Process Unspecified. EDMS 22:30 Yasmin Graham, SAMANTHA is Primary Nurse. la4 22:33 CMP Sent. pm6 22:33 CBC with Diff Sent. pm6 22:33 Inserted saline lock: 22 gauge in right antecubital area, using aseptic technique. pm6 23:00 No provider procedures requiring assistance completed. Inserted saline lock: 20 gauge la4 in right forearm, using aseptic technique. Blood collected. 23:45 Jhony Javier is Hospitalizing Provider. ec2 05/05 01:18 Patient has correct armband on for positive identification. Placed in gown. Bed in low la4 position. Side rails up X2. Provided Education on: plan of care. 01:18 Client placed on continuous cardiac and pulse oximetry monitoring. NIBP monitoring la4 applied. 03:15 Patient admitted, IV remains in place. la4 Administered Medications: 05/04 22:30 Drug: Acetaminophen PO 1000 mg PO once Route: PO; la4 22:30 Drug: morphine IVP or IV 4 mg IVP once over 4 mins Route: IVP; Infused Over: 4 mins; la4 Site: right antecubital; 22:30 Drug: NS 0.9% IV 1000 ml IV at 1 bolus Per protocol; 1000 mL bolus Route: IV; Rate: 1 la4 bolus; Site: right antecubital; 23:30 Drug: Labetalol IV 10 mg IV at bolus once Route: IV; Rate: bolus; Site: right forearm; la4 23:59 Drug: vancoMYCIN IVPB 1.5 grams IVPB at calculated rate once Route: IVPB; Rate: la4 calculated rate; Site: right forearm; 23:59 Drug: Piperacillin-Tazobactam IVPB 3.375 grams IVPB once over 60 mins; (mix in NS 100 la4 mL) Route: IVPB; Infused Over: 60 mins; Site: right forearm; 05/05 01:20 Follow up: Response: No adverse reaction; IV Status: Completed infusion; IV Intake: la4 100ml Medication: 03:15 VIS not applicable for this client. la4 Intake: 01:20 IV: 100ml; Total: 100ml. la4 Output: 03:30 Urine: 600ml (Voided); Total: 600ml. la4 06:09 Urine: 250ml (Voided); Total: 850ml. la4 Outcome: 05/04 23:45 Decision to Hospitalize by Provider. ec2 05/05 04:35 Admitted to ER Hold. Please see [facility] for further documentation. la4 Condition: stable 20:03 Patient left the ED. ha1 Signatures: Dispatcher [employer] Sherrie Hood RN RN Chantel Edmond jj6 Moira Willard RN RN ha1 Denilson Traore MD MD ec2 Yasmin Graham RN RN la4 Pauline Granado pm6
--- NOTE | 2023-05-05 00:05 | P.HP ---
Certification for Inpatient With expected LOS: <2 Midnights Patient will require the following post-hospital care: None Practitioner: I am a practitioner with admitting privileges, knowledge of patient current condition, hospital course, and medical plan of care. Services: Services provided to patient in accordance with Admission requirements found in Title 42 Section 412.3 of the Code of Federal Regulations Patient History Date of Service: 05/05/23 Primary Care Provider: None Reason for admission: Cellulitis, gout History of Present Illness: Mr. Padron is a 38-year-old gentleman with a past medical history including hypertension, hyperlipidemia, gout, Stage III chronic kidney disease. He was admitted at this facility last month and had a nephrology consult. He had an ED visit on 04/22/2023 for Gout. He returns to the ED today for pain and swelling to the right foot post bumping it lightly on furniture. He was hypertensive and tachycardic on arrival to the ED. Chest x-ray negative and right lower extremity ultrasound for DVT negative. He will be admitted for management of possible cellulitis versus gout exacerbation. Allergies nitroglycerin Adverse Reaction (Mild, Verified 05/05/23 01:47) Nausea/Vomiting Home medications list reviewed: Yes Home Medications: allopurinoL [Allopurinol] 1 tab PO DAILY 03/25/23 lisinopriL [Lisinopril] 1 tab PO DAILY 03/25/23 Furosemide [Lasix] 20 mg PO DAILY #30 tab 03/29/23 Metoprolol Tartrate 100 mg PO BID #60 tab 03/29/23 Nifedipine Xl [Procardia Xl*] 30 mg PO DAILY #30 tab 03/29/23 lisinopriL [Lisinopril] 10 mg PO DAILY #30 tab 03/29/23 predniSONE [Prednisone] 5 mg PO DIRECTED #22 tab 03/29/23 - Past Medical/Surgical History Diabetic: No -: Hypertension with CKD -: Systolic CHF, EF 35%now improved to 55% -: Noncompliance with medication -: HLD -: right leg surgery Psychosocial/ Personal History: Patient is . 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 - Social History Smoking Status: Unknown if ever smoked Alcohol use: Yes CD- Drugs: No Caffeine use: No Place of Residence: Home Review of Systems 10-point ROS is otherwise unremarkable Musculoskeletal: Foot Pain, Other (Swelling), As per HPI Physical Examination - Vital Signs Pulse: 111 Pulse Ox (%): 99 - Physical Exam General: Alert, In no apparent distress, Oriented x3 HEENT: Atraumatic, Normocephalic Neck: Supple, 2+ carotid pulse no bruit, JVD not distended Respiratory: Clear to auscultation bilaterally Cardiovascular: No edema, Regular rate/rhythm, Other (Tachycardia) Capillary refill: <2 Seconds Gastrointestinal: Normal bowel sounds, Soft and benign, Non-distended Musculoskeletal: No clubbing, Swelling (Right foot) Integumentary: No rashes, Tenderness/swelling (Right foot) Neurological: Normal speech, Normal tone Lymphatics: No axilla or inguinal lymphadenopathy External genitalia: Deferred Rectal: Deferred - Studies Laboratory Data (last 24 hrs) 05/04/23 05/04/23 22:03 22:03 WBC 15.90 H Hgb 12.3 L Hct 36.6 L Plt Count 463 H Sodium 137 Potassium 3.4 L BUN 16 Creatinine 1.62 H Glucose 118 H Total Bilirubin 0.4 AST 14 L ALT 23 Alkaline Phosphatase 94 Assessment and Plan - Plan Gout versus cellulitis Patient's white count is elevated however he has been on steroids Right foot with swelling and tenderness-DVT study negative Morphine 4 mg IV every 4 hours as needed Monitor white count differential Zosyn 3.375 grams and vancomycin 1 g given in ED Secondary to chronic kidney disease we will hold Zosyn and continue vancomycin unless actual infection proves positive Hypertensive chronic kidney disease Initial pressure in the ED is elevated at 227/138 -> 195/120 Labetalol 10 mg given IV Metoprolol 100 mg p.o. twice daily Lasix 20 mg p.o. daily Monitor vital signs closely Monitor and replenish electrolytes as warranted Tachycardia Patient is tachycardic in the ED unclear whether from infection or missed doses of Lopressor 100 mg twice daily for the last 2 days Monitor vital signs closely Noncompliance with medication regimen Patient does not have a PCP, seen in multiple EDs for chronic condition medication refills Encourage patient to find PCP - Advance Directives Does patient have a Living Will: No Does patient have a Durable POA for Healthcare: No
[2023-05-05] MEDS ORDERED: VANCOMYCIN 1 GM in NA CHLORIDE 0.9% 250 ML IVPB SCH (00:12)
[2023-05-05] MEDS: HEPARIN 5000 UNIT/ML 1 ML VIAL SQ SCH ×3 (03:00→17:00)
[2023-05-05] MEDS: MORPHINE 4 MG/ML SYR IV PRN ×2 (03:00→07:49)
[2023-05-05] MEDS ORDERED: METOPROLOL XL 50 MG TAB PO ONE ×2 (03:50→09:11)
[2023-05-05 04:02] VITALS: BMI 31.1
[2023-05-05] MEDS ORDERED: FUROSEMIDE 20 MG/ 2ML VIAL ONE (05:55)
[2023-05-05] MEDS ORDERED: FUROSEMIDE 20 MG/ 2ML VIAL IV ONE (05:56)
[2023-05-05] MEDS ORDERED: MORPHINE 2 MG/ML SYR ONE (07:39)
[2023-05-05] MEDS ORDERED: HYDRALAZINE HCL 20 MG/ML VIAL IV ONE (07:45)
[2023-05-05] MEDS ORDERED: HEPARIN 5000 UNIT/ML 1 ML VIAL ONE ×2 (08:48→16:33)
[2023-05-05] MEDS ORDERED: HOME MED 1 EA UNK (Metoprolol Tartrate [Metoprolol Tartrate] 100 MG Tablet) PO SCH (09:00)
[2023-05-05] MEDS: predniSONE 20 MG TAB PO SCH (09:00)
[2023-05-05] MEDS ORDERED: ALLOPURINOL 200 MG PO SCH (09:00)
[2023-05-05] MEDS: NIFEDIPINE XL 30 MG TABLET PO SCH ×2 (09:00→09:24)
[2023-05-05] MEDS ORDERED: ENOXAPARIN 40 MG/0.4 ML SQ SCH (09:00)
--- NOTE | 2023-05-05 09:01 | RAD REPORT ---
EXAM DESCRIPTION: RAD - Chest Pa And Lat (2 Views) - 05/05/2023 8:11 am CLINICAL HISTORY: CHF eval Chest pain. COMPARISON: <Comparisons> FINDINGS: Mild interstitial pulmonary edema suspected. The heart is moderately enlarged in size. No displaced fractures. IMPRESSION: Mild CHF.
[2023-05-05] MEDS ORDERED: NIFEdipine 10 MG CAP ONE (09:10)
[2023-05-05] MEDS ORDERED: lisinopriL 20 MG TAB ONE (09:11)
[2023-05-05] MEDS: lisinopriL 20 MG TAB PO SCH (09:23)
[2023-05-05] MEDS ORDERED: METOPROLOL TAR 50 MG TAB PO SCH (10:00)
[2023-05-05] MEDS: allopurinoL 100 MG TAB PO SCH (10:00)
[2023-05-05] MEDS ORDERED: METHYLPREDNISOLONE 40 MG INJ IV ONE (11:01)
[2023-05-05] MEDS ORDERED: METHYLPREDNISOLONE 40 MG INJ ONE (11:39)
--- NOTE | 2023-05-05 13:28 | P.PN ---
Date of Service: 05/05/23 Patient seen and examined. Acute gout involving the right foot. Plan: Steroid therapy Colchicine and allopurinol [place] as needed for pain Monitor CBC to follow leukocytosis. Follow blood cultures.
[2023-05-05] MEDS: VANCOMYCIN 1.75 GM in NA CHLORIDE 0.9% 500 ML IVPB SCH (15:00)
[2023-05-05] MEDS: HYDROCODONE/APAP 10/325 TAB PO PRN ×2 (15:03→21:03)
[2023-05-05] MEDS ORDERED: HYDROCODONE/APAP 10/325 TAB ONE (15:05)
[2023-05-05 20:43] VITALS: O2SAT 99
[2023-05-05] MEDS: METOPROLOL TAR 50 MG TAB PO SCH (21:03)
[2023-05-06] MEDS: HEPARIN 5000 UNIT/ML 1 ML VIAL SQ SCH ×2 (00:15→09:05)
[2023-05-06 03:20] VITALS: TEMP 98.2
[2023-05-06 03:22] LABS: Hematocrit 33.3 % (39.6-49.0); Lymphocytes % 5.6 % (15.3-44.8); MCV 85.6 fL (80-100); MPV 8.5 fL (7.6-11.3); Platelets 479 thou/uL (152-406); RBC Red Blood Cell Count 3.89 M/uL (4.33-5.43)
[2023-05-06 03:40] LABS: Albumin 2.6 g/dL (3.4-5.0); Bilirubin Total 0.3 mg/dL (0.2-1.0); Magnesium 1.6 mg/dL (1.6-2.4); Potassium 3.4 mEq/L (3.5-5.1)
[2023-05-06 04:39] LABS: Blood Morphology Comment NOT SEEN (NOT SEEN); Platelet Estimate ADEQ
[2023-05-06] MEDS ORDERED: MAGNESIUM SULFATE 1 gm IVPB 1 GM/100 ML BAG IV ONE (06:00)
[2023-05-06] MEDS ORDERED: INFLUENZA VACCINE (for 6+ mo) 0.5 ML DOSE IMVAC ONE (08:00)
[2023-05-06] MEDS: VANCOMYCIN 1.75 GM in NA CHLORIDE 0.9% 500 ML IVPB SCH (08:53)
[2023-05-06] MEDS ORDERED: POTASSIUM CL SA 10 MEQ TAB PO ONE (09:00)
[2023-05-06] MEDS ORDERED: NIFEDIPINE XL 30 MG TABLET PO SCH (09:00)
[2023-05-06] MEDS: HYDROCODONE/APAP 10/325 TAB PO PRN (09:04)
[2023-05-06] MEDS: predniSONE 20 MG TAB PO SCH (09:05)
[2023-05-06] MEDS: allopurinoL 100 MG TAB PO SCH (09:05)
[2023-05-06] MEDS: lisinopriL 20 MG TAB PO SCH (09:05)
[2023-05-06] MEDS: METOPROLOL TAR 50 MG TAB PO SCH (09:06)
--- NOTE | 2023-05-06 09:52 | P.DS ---
Admission Date: 05/05/23 Discharge Date: 05/06/23 Primary Care Provider: None Disposition: ROUTINE DISCHARGE Discharge Condition: FAIR Reason for Admission: Cellulitis, gout - Problems (1) Acute gout Current Visit: Yes Status: Acute (2) Chronic kidney disease, stage III (moderate) Current Visit: Yes Status: Acute (3) Essential hypertension Current Visit: Yes Status: Acute Brief History of Present Illness: Mr. Padron is a 38-year-old gentleman with a past medical history including hypertension, hyperlipidemia, gout, Stage III chronic kidney disease. He was admitted at this facility last month and had a nephrology consult. He had an ED visit on 04/22/2023 for Gout. He returns to the ED today for pain and swelling to the right foot post bumping it lightly on furniture. He was hypertensive and tachycardic on arrival to the ED. Chest x-ray negative and right lower extremity ultrasound for DVT negative. He will be admitted for management of possible cellulitis versus gout attack. Hospital Course: Patient was treated for acute gout with IV steroid, p.o. prednisone, continued his allopurinol and treated with antibiotics for possible cellulitis. Patient's leg pain and swelling improved. He had moderate leukocytosis and suspect this is steroid-induced. Patient has clinically improved and has had no fever, vital signs stable. He is discharged to continue treatment for acute gout with colchicine, prednisone and allopurinol. He is prescribed oral Augmentin to cover any cellulitis. Vital Signs/Physical Exam: Temp Pulse Resp BP Pulse Ox 98.2 F 75 15 161/106 H 98 05/05/23 20:00 05/06/23 09:06 05/05/23 21:03 05/06/23 09:06 05/05/23 21:03 General: Alert, In no apparent distress, Oriented x3 Neck: Supple, JVD not distended Respiratory: Clear to auscultation bilaterally, Normal air movement Cardiovascular: No edema, Regular rate/rhythm, Normal S1 S2 Gastrointestinal: Soft and benign, Non-distended Musculoskeletal: Swelling (Trace swelling-dorsum of right foot) Integumentary: No rashes, No cyanosis Neurological: Normal strength at 5/5 x4 extr Laboratory Data at Discharge: WBC 18.80 thou/uL (4.3-10.9) H 05/06/23 01:46 Hgb 11.0 g/dL (13.6-17.9) L D 05/06/23 01:46 Hct 33.3 % (39.6-49.0) L 05/06/23 01:46 Plt Count 479 thou/uL (152-406) H 05/06/23 01:46 Sodium 133 mEq/L (136-145) L 05/06/23 01:46 Potassium 3.4 mEq/L (3.5-5.1) L 05/06/23 01:46 BUN 25 mg/dL (7-18) H 05/06/23 01:46 Creatinine 1.88 mg/dL (0.70-1.30) H 05/06/23 01:46 Glucose 216 mg/dL (74-106) H 05/06/23 01:46 Magnesium 1.6 mg/dL (1.6-2.4) 05/06/23 01:46 Total Bilirubin 0.3 mg/dL (0.2-1.0) 05/06/23 01:46 AST 12 U/L (15-37) L 05/06/23 01:46 ALT 16 U/L (16-61) 05/06/23 01:46 Alkaline Phosphatase 76 U/L (45-117) 05/06/23 01:46 Triglycerides 53 mg/dL (<150) 05/06/23 01:46 Cholesterol 222 mg/dL (<200) H 05/06/23 01:46 HDL Cholesterol 69 mg/dL (40-60) H 05/06/23 01:46 Cholesterol/HDL Ratio 3.22 05/06/23 01:46 Home Medications: allopurinoL [Allopurinol] 1 tab PO DAILY 03/25/23 Furosemide [Lasix*] 20 mg PO DAILY #30 tab 03/29/23 Metoprolol Tartrate 100 mg PO BID #60 tab 03/29/23 Nifedipine Xl [Procardia Xl*] 30 mg PO DAILY #30 tab 03/29/23 lisinopriL [Lisinopril] 20 mg PO DAILY 05/05/23 Amox/Clavulanate [Augmentin 875-125 Tab] 1 each PO BID #14 tab 05/06/23 Colchicine 0.6 mg PO BID #28 tab 05/06/23 Hydrocodone 10/APAP 325 [[place] 10/325*] 1 tab PO Q6H PRN #20 tab 05/06/23 predniSONE [Prednisone*] 40 mg PO DAILY #10 tab 05/06/23 New Medications: Amox/Clavulanate [Augmentin 875-125 Tab] 1 each PO BID #14 tab Colchicine 0.6 mg PO BID #28 tab Hydrocodone 10/APAP 325 [[place] 10/325*] 1 tab PO Q6H PRN #20 tab PRN Reason: Pain Scale 5-7 (Moderate) predniSONE [Prednisone*] 40 mg PO DAILY #10 tab Diet: AHA Activity: Ad noble Time spent managing pt's care (in minutes): 28
[2023-05-06 11:21] VITALS: BP 153/99
== END 2023-05-06 11:45 | disposition home or self-care (01) ==
LOC: ER 20:07 → ERHOLD 05-05 00:05 → 2ND 05-05 19:16
PROVIDERS: ADMIT Internal Medicine; ATTEND Internal Medicine
DX: M10.9 Gout, unspecified (principal); A41.9 Sepsis, unspecified organism; I12.9 Hypertensive chronic kidney disease with stage 1 through stage 4 chronic kidney disease, or unspecified chronic kidney disease; N18.30 Chronic kidney disease, stage 3 unspecified; D72.829 Elevated white blood cell count, unspecified; Z23 Encounter for immunization
CPT/HCPCS: 87040 ×2; 85025 ×2; 36415 ×2; 83735; 80061; 82947; 83605; 80202; 80053 ×2; 71046; 73630; 90471; 93971; 99285; J1644 ×5; Q2035; J7512 ×2; J3475; J0360; J1940; J2543; J2270; J7040 ×2; J7030; J2920; 93005; G0378

== ENCOUNTER → 2023-05-13 | Emergency (ER) | payer OTHER ==
[~2023-05-13] MED LIST changes: -HYDROCODONE/APAP 10/325 TAB ONE; +HYDROCODONE/APAP 7.5/325 MG TAB ONE; -MORPHINE 4 MG/ML SYR ONE
--- OUTSIDE RECORDS SUMMARY | 2023-05-13 10:22 | XMS REPORT | Continuity of Care Document ---
Author Name Unknown Address [address] [facility] [address] [place] [address] [facility]connect Address 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 Role Phone Cristy FREDERICK, Marshall Dean Primary Care Physician Cipriano FREDERICK, Basim Sanz Attending Clinician + Tameka NOVOA Attending Clinician Unavailable Tameka Garcia Attending Clinician [phone] Doctor Unassigned, Saxton Attending Clinician U jose e Neumann RN, Sherrell Attending Clinician Unavailable DIMITRIOS ABEL Attending Clinician Dimitrios Kasper MD Attending Clinician [phone] DIMITRIOS ABEL Admitting Clinician Dimitrios Kasper MD Admitting Clinician [phone] Payers Payer Name Policy Type Policy Number Effective Date Expirati on Date Source Problems Condition Name Condition Details Condition Category Status Onset Date Resolution Date Last Treatment Date Treating Clinician Comments Source SOB (shortness of breath) SOB (shortness of breath) Disease Active -14 00:00: 00 [facility] Obesity (BMI 30-39.9) Obesity (BMI 30-39.9) Disease Active 11-23 00:00: 00 [facility] Allergies, Adverse Reactions, Alerts Allergy Name Allergy Type Status Severity Reaction(s) Onset Date Inactive Date Treating Clinician Comments Source MORPHINE DRUG INGREDI Active Unknown-Cmnt 12-06 00:00: 00 [facility] Morphine Propensi ty to adverse reaction s Active Unknown - See comments 12-06 00:00: 00 Patient does not know reaction [facility] NO KNOWN ALLERGIE S Drug Class Active [facility] Social History Social Habit Start Date Stop Date Quantity Comments Source History SDOH Alcohol Std Drinks [facility] History SDOH Alcohol Binge [facility] History SDOH Alcohol Frequency [facility] Exposure to SARS-CoV-2 (event) 2021-11-26 00:00:00 2021-12-06 12:55:00 Not sure [facility] Alcohol intake 2021-12-06 00:00:00 2021-12-06 00:00:00 Current drinker of alcohol (finding) [facility] Alcohol Comment 2016-11-22 00:00:00 2016-11-22 00:00:00 Daily [facility] Tobacco use and exposure 2016-11-22 00:00:00 2016-11-22 00:00:00 Smokeless tobacco non-user [facility] Sex Assigned At 1985 00:00:00 1985 00:00:00 [facility] Smoking Status Start Date Stop Date Source Never smoked tobacco [facility] Medications Ordered Medication Name Filled Medication Name Start Date Stop Date Current Medication? Ordering Clinician Indication Dosage Frequency Signature (SIG) Comments Components Source lisinopriL (PRINIVIL,Z ESTRIL) tablet 20 mg 12-07 14:00: 00 Yes 20mg 20 mg, Oral, DAILY, First dose on Sat12/07/21 at 0900, Until Discontinu ed, Routine [facility] HYDROcodone -acetaminop hen (NORCO) 10-325 mg tablet 1 tablet 12-06 17:15: 00 12-06 16:12 :00 No 1{tbl} 1 tablet, Oral, ONCE, 1 dose, On Sat12/06/21 at 1215, Routine [facility] carvediloL (COREG) tablet 25 mg 12-06 17:15: 00 12-06 16:12 :00 No 25mg 25 mg, Oral, ONCE, 1 dose, On Sat12/06/21 at 1215, Routine [facility] methylpredn isolone sod succ (SOLU-MEDRO L) injection 125 mg 12-06 16:45: 00 12-06 16:09 :00 No 125mg 125 mg, Intramuscu lar, ONCE, 1 dose, On Sat12/06/21 at 1145, REGINA [facility] acetaminoph en-codeine 300-30 mg tablet 12-06 00:00: 00 Yes [id number] 1{tbl} Take 1 tablet by mouth every 4 (four) hours as needed for Pain (scale 4-6). Indication s: acute pain [facility] predniSONE 20 mg tablet 12-06 00:00: 00 Yes [id number] 1 PO BID x 4 days [facility] acetaminoph en-codeine 300-30 mg tablet 12-06 00:00: 00 Yes [id number] 1{tbl} Take 1 tablet by mouth every 4 (four) hours as needed for Pain (scale 4-6). Indication s: acute pain [facility] predniSONE 20 mg tablet 12-06 00:00: 00 Yes [id number] 1 PO BID x 4 days [facility] predniSONE 20 mg tablet 12-06 00:00: 00 12-06 00:00 :00 No [id number] 1 PO BID x 4 days [facility] aspirin 81 mg chewable tablet 09-14 00:00: 00 Yes [id number] 81mg Take 1 tablet by mouth daily. [facility] atorvastati n 40 mg tablet 09-14 00:00: 00 Yes [id number] 40mg Take 1 tablet by mouth at bedtime. [facility] carvediloL 25 mg tablet 09-14 00:00: 00 Yes [id number] 37.5mg Take 1.5 tablets by mouth 2 (two) times daily with meals. [facility] furosemide 40 mg tablet 2021-0 09-14 00:00: 00 Yes [id number] 40mg Take 1 tablet by mouth every morning and evening. [facility] lisinopriL 10 mg tablet 2021-0 09-14 00:00: 00 Yes [id number] 30mg Take 3 tablets by mouth daily. [facility] spironolact one 25 mg tablet 0 09-14 00:00: 00 Yes [id number] 25mg Take 1 tablet by mouth daily. [facility] aspirin 81 mg chewable tablet 0 09-14 00:00: 00 Yes [id number] 81mg Take 1 tablet by mouth daily. [facility] atorvastati n 40 mg tablet 2021-0 09-14 00:00: 00 Yes [id number] 40mg Take 1 tablet by mouth at bedtime. [facility] carvediloL 25 mg tablet 2021-0 09-14 00:00: 00 Yes [id number] 37.5mg Take 1.5 tablets by mouth 2 (two) times daily with meals. [facility] furosemide 40 mg tablet 0 09-14 00:00: 00 Yes [id number] 40mg Take 1 tablet by mouth every morning and evening. [facility] lisinopriL 10 mg tablet 2021-0 09-14 00:00: 00 Yes [id number] 30mg Take 3 tablets by mouth daily. [facility] spironolact one 25 mg tablet 0 09-14 00:00: 00 Yes [id number] 25mg Take 1 tablet by mouth daily. [facility] aspirin 81 mg chewable tablet 2021-0 09-14 00:00: 00 Yes [id number] 81mg Take 1 tablet by mouth daily. [facility] atorvastati n 40 mg tablet 2021-0 09-14 00:00: 00 Yes [id number] 40mg Take 1 tablet by mouth at bedtime. [facility] carvediloL 25 mg tablet 2021-0 09-14 00:00: 00 Yes [id number] 37.5mg Take 1.5 tablets by mouth 2 (two) times daily with meals. [facility] furosemide 40 mg tablet 09-14 00:00: 00 Yes [id number] 40mg Take 1 tablet by mouth every morning and evening. [facility] lisinopriL 10 mg tablet 09-14 00:00: 00 Yes [id number] 30mg Take 3 tablets by mouth daily. [facility] spironolact one 25 mg tablet 09-14 00:00: 00 Yes [id number] 25mg Take 1 tablet by mouth daily. [facility] aspirin 81 mg chewable tablet 09-14 00:00: 00 Yes [id number] 81mg Take 1 tablet by mouth daily. [facility] atorvastati n 40 mg tablet 09-14 00:00: 00 Yes [id number] 40mg Take 1 tablet by mouth at bedtime. [facility] carvediloL 25 mg tablet 09-14 00:00: 00 Yes [id number] 37.5mg Take 1.5 tablets by mouth 2 (two) times daily with meals. [facility] furosemide 40 mg tablet 09-14 00:00: 00 Yes [id number] 40mg Take 1 tablet by mouth every morning and evening. [facility] lisinopriL 10 mg tablet 09-14 00:00: 00 Yes [id number] 30mg Take 3 tablets by mouth daily. [facility] spironolact one 25 mg tablet 09-14 00:00: 00 Yes [id number] 25mg Take 1 tablet by mouth daily. [facility] aspirin 81 mg chewable tablet 08-22 00:00: 00 02-19 04:59 :00 No [id number] 81mg Take 1 tablet by mouth daily for 180 days. [facility] lisinopriL 10 mg tablet 08-22 00:00: 00 02-19 04:59 :00 No [id number] 30mg Take 3 tablets by mouth daily for 180 days. [facility] spironolact one 25 mg tablet 2-0 4-19 00:00: 00 02-19 04:59 :00 No [id number] 25mg Take 1 tablet by mouth daily for 180 days. [facility] aspirin 81 mg chewable tablet 2-0 4-19 00:00: 00 02-19 04:59 :00 No [id number] 81mg Take 1 tablet by mouth daily for 180 days. [facility] lisinopriL 10 mg tablet 2-0 4-19 00:00: 00 02-19 04:59 :00 No [id number] 30mg Take 3 tablets by mouth daily for 180 days. [facility] spironolact one 25 mg tablet 2021-0 4-19 00:00: 00 02-19 04:59 :00 No [id number] 25mg Take 1 tablet by mouth daily for 180 days. [facility] aspirin 81 mg chewable tablet 2021-0 4-19 00:00: 00 02-19 04:59 :00 No [id number] 81mg Take 1 tablet by mouth daily for 180 days. [facility] lisinopriL 10 mg tablet 2021-0 4-19 00:00: 00 02-19 04:59 :00 No [id number] 30mg Take 3 tablets by mouth daily for 180 days. [facility] spironolact one 25 mg tablet 2-0 4-19 00:00: 00 02-19 04:59 :00 No [id number] 25mg Take 1 tablet by mouth daily for 180 days. [facility] aspirin 81 mg chewable tablet 2-0 4-19 00:00: 00 02-19 04:59 :00 No [id number] 81mg Take 1 tablet by mouth daily for 180 days. [facility] lisinopriL 10 mg tablet 2-0 4-19 00:00: 00 02-19 04:59 :00 No [id number] 30mg Take 3 tablets by mouth daily for 180 days. [facility] spironolact one 25 mg tablet 2-0 4-19 00:00: 00 02-19 04:59 :00 No [id number] 25mg Take 1 tablet by mouth daily for 180 days. [facility] aspirin 81 mg chewable tablet 2-0 4-19 00:00: 00 02-19 04:59 :00 No [id number] 81mg Take 1 tablet by mouth daily for 180 days. [facility] lisinopriL 10 mg tablet 2-0 4-19 00:00: 00 02-19 04:59 :00 No [id number] 30mg Take 3 tablets by mouth daily for 180 days. [facility] spironolact one 25 mg tablet 2021-0 4-19 00:00: 00 02-19 04:59 :00 No [id number] 25mg Take 1 tablet by mouth daily for 180 days. [facility] aspirin 81 mg chewable tablet 2021-0 4-19 00:00: 00 02-19 04:59 :00 No [id number] 81mg Take 1 tablet by mouth daily for 180 days. [facility] lisinopriL 10 mg tablet 2021-0 4-19 00:00: 00 02-19 04:59 :00 No [id number] 30mg Take 3 tablets by mouth daily for 180 days. [facility] spironolact one 25 mg tablet 2021-0 4-19 00:00: 00 02-19 04:59 :00 No [id number] 25mg Take 1 tablet by mouth daily for 180 days. [facility] aspirin 81 mg chewable tablet 2-0 4-19 00:00: 00 09-14 00:00 :00 No [id number] 81mg Take 1 tablet by mouth daily for 180 days. [facility] lisinopriL 10 mg tablet 2-0 4-19 00:00: 00 09-14 00:00 :00 No [id number] 30mg Take 3 tablets by mouth daily for 180 days. [facility] spironolact one 25 mg tablet 2-0 4-19 00:00: 00 09-14 00:00 :00 No [id number] 25mg Take 1 tablet by mouth daily for 180 days. [facility] carvediloL (COREG) tablet 37.5 mg 08-21 22:00: 00 Yes 37.5mg 37.5 mg, Oral, BID MEALS, First dose (after last modificati on) on Sat08/21/21 at 1700, Until Discontinu ed, Routine [facility] lisinopriL (PRINIVIL,Z ESTRIL) tablet 30 mg 08-21 14:00: 00 Yes 30mg 30 mg, Oral, DAILY, First dose (after last modificati on) on Sat08/21/21 at 0900, Until Discontinu ed, Routine [facility] magnesium oxide (MAG-OX 400) tablet 400 mg 08-21 13:45: 00 08-21 13:20 :00 No 400mg 400 mg, Oral, ONCE, 1 dose, On Sat08/21/21 at 0845, Routine [facility] amLODIPine 10 mg tablet 08-21 11:33: 41 08-21 00:00 :00 No 10mg Take 10 mg by mouth daily. [facility] hydroCHLORO thiazide 25 mg tablet 08-21 11:33: 41 08-21 00:00 :00 No 25mg Take 25 mg by mouth daily. [facility] ibuprofen 800 mg tablet 08-21 11:33: 41 08-21 00:00 :00 No 800mg Take 800 mg by mouth 2 (two) times daily. [facility] hydrALAZINE (APRESOLINE ) tablet 10 mg 08-21 07:00: 00 08-21 06:05 :00 No 10mg 10 mg, Oral, ONCE, 1 dose, On Sat08/21/21 at 0200, Routine [facility] atorvastati n 40 mg tablet 08-21 00:00: 00 02-18 04:59 :00 No [id number] 40mg Take 1 tablet by mouth at bedtime for 180 days. [facility] furosemide 40 mg tablet 2022-0 4-18 00:00: 00 02-18 04:59 :00 No [id number] 40mg Take 1 tablet by mouth every morning and evening for 180 days. [facility] carvediloL 25 mg tablet 2-0 4-18 00:00: 00 02-18 04:59 :00 No [id number] 37.5mg Take 1.5 tablets by mouth 2 (two) times daily with meals for 180 days. [facility] atorvastati n 40 mg tablet 2021-0 4-18 00:00: 00 02-18 04:59 :00 No [id number] 40mg Take 1 tablet by mouth at bedtime for 180 days. [facility] furosemide 40 mg tablet 2021-0 4-18 00:00: 00 02-18 04:59 :00 No [id number] 40mg Take 1 tablet by mouth every morning and evening for 180 days. [facility] carvediloL 25 mg tablet 2021-0 4-18 00:00: 00 02-18 04:59 :00 No [id number] 37.5mg Take 1.5 tablets by mouth 2 (two) times daily with meals for 180 days. [facility] atorvastati n 40 mg tablet 2021-0 4-18 00:00: 00 02-18 04:59 :00 No [id number] 40mg Take 1 tablet by mouth at bedtime for 180 days. [facility] furosemide 40 mg tablet 2021-0 4-18 00:00: 00 02-18 04:59 :00 No [id number] 40mg Take 1 tablet by mouth every morning and evening for 180 days. [facility] carvediloL 25 mg tablet 2-0 4-18 00:00: 00 02-18 04:59 :00 No [id number] 37.5mg Take 1.5 tablets by mouth 2 (two) times daily with meals for 180 days. [facility] atorvastati n 40 mg tablet 2021-0 4-18 00:00: 00 02-18 04:59 :00 No [id number] 40mg Take 1 tablet by mouth at bedtime for 180 days. [facility] furosemide 40 mg tablet 2021-0 4-18 00:00: 00 02-18 04:59 :00 No [id number] 40mg Take 1 tablet by mouth every morning and evening for 180 days. [facility] carvediloL 25 mg tablet 2-0 4-18 00:00: 00 02-18 04:59 :00 No [id number] 37.5mg Take 1.5 tablets by mouth 2 (two) times daily with meals for 180 days. [facility] atorvastati n 40 mg tablet 2021-0 4-18 00:00: 00 02-18 04:59 :00 No [id number] 40mg Take 1 tablet by mouth at bedtime for 180 days. [facility] furosemide 40 mg tablet 2021-0 4-18 00:00: 00 02-18 04:59 :00 No [id number] 40mg Take 1 tablet by mouth every morning and evening for 180 days. [facility] carvediloL 25 mg tablet 2021-0 4-18 00:00: 00 02-18 04:59 :00 No [id number] 37.5mg Take 1.5 tablets by mouth 2 (two) times daily with meals for 180 days. [facility] atorvastati n 40 mg tablet 2021-0 4-18 00:00: 00 02-18 04:59 :00 No [id number] 40mg Take 1 tablet by mouth at bedtime for 180 days. [facility] furosemide 40 mg tablet 2021-0 4-18 00:00: 00 02-18 04:59 :00 No [id number] 40mg Take 1 tablet by mouth every morning and evening for 180 days. [facility] carvediloL 25 mg tablet 2021-0 4-18 00:00: 00 02-18 04:59 :00 No [id number] 37.5mg Take 1.5 tablets by mouth 2 (two) times daily with meals for 180 days. [facility] atorvastati n 40 mg tablet 2021-0 4-18 00:00: 00 09-14 00:00 :00 No [id number] 40mg Take 1 tablet by mouth at bedtime for 180 days. [facility] furosemide 40 mg tablet 0 18 00:00: 00 09-14 00:00 :00 No [id number] 40mg Take 1 tablet by mouth every morning and evening for 180 days. [facility] carvediloL 25 mg tablet 2021-0 18 00:00: 00 09-14 00:00 :00 No [id number] 37.5mg Take 1.5 tablets by mouth 2 (two) times daily with meals for 180 days. [facility] carvediloL 25 mg tablet 08-21 00:00: 00 08-21 00:00 :00 No [id number] 25mg Take 1 tablet by mouth 2 (two) times daily with meals for 180 days. [facility] furosemide (LASIX) tablet 40 mg 08-20 14:00: 00 Yes 40mg 40 mg, Oral, QAM+PM, First dose (after last modificati on) on 08/20/21 at 0900, Until Discontinu ed, Routine [facility] lisinopriL (PRINIVIL,Z ESTRIL) tablet 20 mg 17 14:00: 00 08-21 11:42 :47 No 20mg 20 mg, Oral, DAILY, First dose (after last modificati on) on 08/20/21 at 0900, Until Discontinu ed, Routine [facility] carvediloL (COREG) tablet 25 mg 17 13:00: 00 08-21 17:46 :56 No 25mg 25 mg, Oral, BID MEALS, First dose (after last modificati on) on 08/20/21 at 0800, Until Discontinu ed, Routine [facility] lisinopriL (PRINIVIL,Z ESTRIL) tablet 5 mg 2021--16 15:00: 00 08-19 14:30 :00 No 5mg 5 mg, Oral, ONCE, 1 dose, On 08/19/21 at 1000, Routine [facility] carvediloL (COREG) tablet 12.5 mg 08-19 13:00: 00 08-19 22:39 :41 No 12.5mg 12.5 mg, Oral, BID MEALS, First dose (after last modificati on) on Sat08/19/21 at 0800, Until Discontinu ed, Routine [facility] furosemide (LASIX) injection 40 mg 08-19 01:00: 00 08-19 17:31 :11 No 40mg 40 mg, Slow IV Push, Q12H, First dose on Sat08/18/21 at 2000, Until Discontinu ed, Routine [facility] hydrALAZINE (APRESOLINE ) tablet 25 mg 08-18 21:47: 07 Yes 25mg 25 mg, Oral, Q6HPRN, Starting on Sat08/18/21 at 1647, Until Discontinu ed, Routine, SBP >180 [facility] lisinopriL (PRINIVIL,Z ESTRIL) tablet 10 mg 08-18 18:15: 00 08-18 18:14 :00 No 10mg 10 mg, Oral, DAILY, 1 dose, First dose on Sat08/18/21 at 1315, Routine [facility] lisinopriL (PRINIVIL,Z ESTRIL) tablet 10 mg 08-18 16:00: 00 08-19 13:47 :35 No 10mg 10 mg, Oral, DAILY, First dose on Sat08/18/21 at 1100, Until Discontinu ed, Routine [facility] spironolact one (ALDACTONE) tablet 25 mg 08-18 14:00: 00 Yes 25mg 25 mg, Oral, DAILY, First dose on Sat08/18/21 at 0900, Until Discontinu ed, Routine [facility] aspirin chewable tablet 81 mg 08-18 14:00: 00 Yes 81mg 81 mg, Oral, DAILY, First dose on Sat08/18/21 at 0900, Until Discontinu ed, Routine [facility] furosemide (LASIX) tablet 40 mg 08-18 14:00: 00 08-18 16:18 :32 No 40mg 40 mg, Oral, QAM+PM, First dose on Sat08/18/21 at 0900, Until Discontinu ed, Routine [facility] amLODIPine (NORVASC) tablet 10 mg 08-18 12:00: 00 08-18 11:05 :00 No 10mg 10 mg, Oral, ONCE, 1 dose, On Sat08/18/21 at 0700, Routine [facility] atorvastati n (LIPITOR) tablet 40 mg 08-18 02:00: 00 Yes 40mg 40 mg, Oral, QHS, First dose on Sat08/17/21 at 2100, Until Discontinu ed, Routine [facility] heparin (porcine) injection 5,000 Units 08-18 01:00: 00 Yes 5000U 5,000 Units, Subcutaneo us, Q12H, First dose on Sat08/17/21 at 2000, Until Discontinu ed, Routine [facility] hydrALAZINE (APRESOLINE ) tablet 10 mg 08-17 22:45: 00 08-17 23:51 :00 No 10mg 10 mg, Oral, ONCE, 1 dose, On Sat08/17/21 at 1745, Routine [facility] hydrALAZINE (APRESOLINE ) tablet 10 mg 08-17 21:45: 54 08-18 21:47 :24 No 10mg 10 mg, Oral, Q6HPRN, Starting on Sat08/17/21 at 1645, Until Sat08/18/21 at 1647, Routine, SBP >180 [facility] sulfur hexafluorid e microsphr (LUMASON) injection 5 mL 08-17 20:45: 00 08-17 20:45 :00 No [id number] 5mL 5 mL, Intravenou s, ONCE, 1 dose, On Sat08/17/21 at 1545, Routine
prepared foods service team member approving Restricted medication : DEZ QIU [facility] magnesium sulfate in water 4 gram/50 mL (8 %) IV Piggyback 4 g 08-17 18:15: 00 08-17 18:29 :00 No 4g 4 g, IV Piggyback, ONCE, 1 dose, On Viktoriya 08/17/21 at 1315, Routine [facility] KCL (KLOR-CON M20) tablet 40 mEq 08-17 18:15: 00 08-17 18:10 :00 No 40meq 40 mEq, Oral, ONCE, 1 dose, On Viktoriya 08/17/21 at 1315, Routine [facility] furosemide (LASIX) injection 40 mg 08-17 17:15: 00 08-18 12:42 :25 No 40mg 40 mg, Slow IV Push, Q12H, First dose on Viktoriya 08/17/21 at 1215, Until Discontinu ed, Routine [facility] acetaminoph en (TYLENOL) tablet 650 mg 08-17 14:09: 58 Yes 650mg 650 mg, Oral, Q6HPRN, Starting on Viktoriya 08/17/21 at 0909, Until Discontinu ed, Routine, Pain (scale 1-3) [facility] amLODIPine 10 mg tablet 08-17 09:16: 15 Yes 10mg Take 10 mg by mouth daily. [facility] hydroCHLORO thiazide 25 mg tablet 08-17 09:16: 15 Yes 25mg Take 25 mg by mouth daily. [facility] ibuprofen 800 mg tablet 08-17 09:16: 15 Yes 800mg Take 800 mg by mouth 2 (two) times daily. [facility] Vital Signs Vital Name Observation Time Observation Value Comments S jenniferusama Systolic blood pressure 2021-12-06 17:40:07 158 mm[Hg] [facility] Diastolic blood pressure 2021-12-06 17:40:07 105 mm[Hg] [facility] Heart rate 2021-12-06 15:43:00 91 /min [facility] Respiratory rate 2021-12-06 15:43:00 20 /min [facility] Oxygen saturation in Arterial blood by Pulse oximetry 2021-12-06 15:43:00 97 /min [facility] Body temperature 2021-12-06 14:49:00 36.61 Anastasiia [facility] Body height 2021-12-06 14:49:[address] [facility] Body weight 2021-12-06 14:49:[address] [facility] BMI 2021-12-06 14:49:00 29.84 kg/m2 [facility] Systolic blood pressure 2021-08-21 20:39:00 143 mm[Hg] [facility] Diastolic blood pressure 2021-08-21 20:39:00 104 mm[Hg] [facility] Heart rate 2021-08-21 20:39:00 79 /min [facility] Body temperature 2021-08-21 20:39:00 36 Anastasiia [facility] Respiratory rate 2021-08-21 20:39:00 18 /min [facility] Oxygen saturation in Arterial blood by Pulse oximetry 2021-08-21 20:39:00 99 /min [facility] Body weight 2021-08-21 10:57:[address] [facility] BMI 2021-08-21 10:57:00 31.11 kg/m2 [facility] Body height 2021-08-18 10:31:[address] [facility] Procedures Procedure Date / Time Performed Performing Clinician Source NOTICE OF PRIVACY PRACTICES 2021-12-06 14:38:21 Doctor Unassigned, Saxton [facility] CONSENT/REFUSAL FOR DIAGNOSIS AND TREATMENT 2021-12-06 14:38:03 Doctor Unassigned, Saxton [facility] AUTHORIZATION FOR RELEASE OF PHI 2021-09-01 05:01:00 Doctor Unassigned, Saxton [facility] MAGNESIUM 2021-08-21 08:42:00 [facility] BASIC METABOLIC PANEL (NA, K, CL, CO2, GLUCOSE, BUN, CREATININE, CA) 2021-08-21 08:42:00 Eryn Cowart [facility] N-TERMINAL PRO-BNP 2021-08-21 08:42:00 Gaston Elizabeth [facility] HB ECG ROUTINE & RHYTHM STRIP 2021-08-20 13:02:55 [facility] 2021-08-20 09:22:00 [facility]OLIC PANEL (NA, K, CL, CO2, GLUCOSE, BUN, CREATININE, CA) 2021-08-20 09:22:00 Anca [facility] CBC WITH DIFF 2021-08-20 09:22:00 Anca [facility] HB ECG ROUTINE & RHYTHM STRIP 2021-08-19 13:08:08 [facility] 2021-08-19 10:21:00 Gaston Elizabeth [facility] BASIC METABOLIC PANEL (NA, K, CL, CO2, GLUCOSE, BUN, CREATININE, CA) 2021-08-19 10:21:00 [facility] BASIC METABOLIC PANEL (NA, K, CL, CO2, GLUCOSE, BUN, CREATININE, CA) 2021-08-18 19:41:00 [facility]OUT[facility] & RHYTHM STRIP 2021-08-18 14:50:24 [facility] 2021-08-18 09:10:00 Eryn Cowart [facility] BASIC METABOLIC PANEL (NA, K, CL, CO2, GLUCOSE, BUN, CREATININE, CA) 2021-08-18 09:10:00 [facility] WITH DIFF 2021-08-18 09:10:00 [facility] I 2021-08-17 23:58:00 [facility] ([facility] COMPLETE W/ CONTRAST 2021-08-17 18:53:00 [facility]OS[facility]US 2021-08-17 15:43:00 Eryn Cowart [facility] MAGNESIUM 2021-08-17 15:43:00 [facility] FERRITIN SERUM 2021-08-17 15:43:00 Eryn Cowart [facility] TROPONIN I 2021-08-17 15:43:00 Supa [facility] THYROID STIMULATING HORMONE 2021-08-17 15:43:00 Supa [facility] HEPATIC FUNCTION PANEL (25277) (ALB,T.PRO,BILI T,BU/BC,ALT,AST,ALK PHOS) 2021-08-17 15:43:00 Supa [facility] BASIC METABOLIC PANEL (NA, K, CL, CO2, GLUCOSE, BUN, CREATININE, CA) 2021-08-17 15:43:00 Supa [facility] IRON PANEL 2021-08-17 15:43:00 Supa [facility] CBC WITH DIFF 2021-08-17 15:43:00 Supa [facility] GLYCOSYLATED HEMOGLOBIN (A1C) 2021-08-17 15:43:00 Supa [facility] N-TERMINAL PRO-BNP 2021-08-17 15:43:00 Supa [facility] XR CHEST 1 VW 2021-08-17 15:10:00 Supa [facility] Encounters Start Date/Time End Date/Time Encounter Type Admission Type Attending [facility] Care Facility Care Department Encounter ID Source 2022-08-17 00:00:00 2022-08-17 00:00:00 Basim Garcia [facility] 1..840.114 350.1.13.10 4.2.7.2.686 [id number] [facility] 2021-12-06 09:51:00 2021-12-06 13:09:00 Emergency X Tameka NOVOA [facility] ERT [id number] [facility] 2021-12-06 09:51:00 2021-12-06 13:09:00 Emergency Tameka Novoa [facility] 1..840.114 350.1.13.10 4.2.7.2.686 [id number] [facility] 2021-12-06 00:00:00 2021-12-06 00:00:00 Orders Only Doctor Unassigned, [place] [facility] 1.2840.114 350.1.13.10 4.2.7.2.686 [id number] [facility] 2021-09-14 00:00:00 2021-09-14 00:00:00 Telephone [facility] 1.2840.114 350.1.13.10 4.2.7.2.686 [id number] [facility] 2021-09-12 00:00:00 2021-09-12 00:00:00 Telephone [facility] MEDICAL OFFICE BUILDING 1.2840.114 350.1.13.10 4.2.7.2.686 [id number] [facility] 2021-09-01 00:00:00 2021-09-01 00:00:00 Telephone [facility] 1.2840.114 350.1.13.10 4.2.7.2.686 [id number] [facility] 2021-09-01 00:00:00 2021-09-01 00:00:00 Orders Only Doctor Unassigned, [place] [facility] 1.2840.114 350.1.13.10 4.2.7.2.686 [id number] [id number] [facility] 2021-08-30 00:00:00 2021-08-30 00:00:00 Telephone [facility] 1.2840.114 350.1.13.10 4.2.7.2.686 [id number] [facility] 2021-08-22 00:00:00 2021-08-22 00:00:00 Transition of Care Sherrell Neumann 1.2.840.114 350.1.13.10 4.2.7.2.686 [id number] [facility] 2021-08-17 08:35:00 2021-08-21 17:42:00 Inpatient [facility] [id number] [facility] 2021-08-17 08:35:00 2021-08-21 17:42:00 Hospital Encounter [facility]ie[facility]im [facility] Dimitrios Abel [facility] 1.2.840.114 350.1.13.10 4.2.7.2.686 [id number] [facility] 2021-08-18 00:00:00 2021-08-18 00:00:00 Telephone Dimitrios Abel [facility] 1.2.840.114 350.1.13.10 4.2.7.2.686 [id number] [facility] Results Test Description Test Time Test Comments Results Result Co mments Source [facility] (NA, K, CL, CO2, GLUCOSE, BUN, CREATININE, CA)2021-08-21 10:07:34* Test Item Value Reference Range Interpretation Comme nts NA (test code = 8255916886) 135 mmol/L 135-145 K (test code = 0089072941) 4.4 mmol/L 3.5-5.0 CL (test code = 9441575292) 102 mmol/L 98-108 CO2 TOTAL (test code = 5768958760) 26 mmol/L 23-31 AGAP (test code = 0344696364) 2-16 BUN (test code = 5888271070) 27 mg/dL 7-23 H GLUCOSE (test code = 6036917007) 104 mg/dL 70-110 CREATININE (test code = 0186990866) 1.49 mg/dL 0.60-1.25 H CALCIUM (test code = 6598650369) 9.0 mg/dL 8.6-10.6 eGFR (test code = 4068551286) mL/min/1.73m2 EBEN (test code = EBEN) Association [...] imaging tests). Lab Interpretation (test code = 65944-8) Abnormal [facility]20[facility]-18 10:07:34* Test Item Value Reference Range Interpretation Comme nts MAGNESIUM (test code = 4366145820) 1.9 mg/dL 1.7-2.4 Lab Interpretation (test cod e = 09264-9) Normal [facility] (NA, K, CL, CO2, GLUCOSE, BUN, CREATININE, CA)2021-08-20 10:22:59* Test Item Value Reference Range Interpretation Comme nts NA (test code = 7465854279) 137 mmol/L 135-145 K (test code = 0222881465) 4.4 mmol/L 3.5-5.0 CL (test code = 6205071022) 102 mmol/L 98-108 CO2 TOTAL (test code = 3281256983) 26 mmol/L 23-31 AGAP (test code = 6935393875) 2-16 BUN (test code = 6055592454) 31 mg/dL 7-23 H GLUCOSE (test code = 9029162059) 119 mg/dL 70-110 H CREATININE (test code = 5313228791) 1.56 mg/dL 0.60-1.25 H CALCIUM (test code = 0657035972) 9.1 mg/dL 8.6-10.6 eGFR (test code = 0490462280) mL/min/1.73m2 EBEN (test code = EBEN) Association [...] imaging tests). Lab Interpretation (test code = 98750-1) [facility]normal [facility]17 10:22:59* Test Item Value Reference Range Interpretation Comme nts MAGNESIUM (test code = 9824868175) 2.1 mg/dL 1.7-2.4 Lab Interpretation (test cod e = 69937-8) Normal [facility] WITH [id number] 09:42:15* Test Item Value Reference Range Interpretation [...] 32.8 g/dL 31.2-35.0 RDW-SD (test code = 04057-7) 39.3 fL 38.5-51.6 RDW-CV (test code = 788-0) 12.5 % 12.1-15.4 PLT (test code = 777-3) See_Comment H [Automated messa ge] The system which generated this result transmitted reference range: 150 - 328 10*3/?L. The reference range was not used to interpret this result as normal/abnormal. MPV (test code = 11293-2) 9.3 fL 9.8-13.0 L NRBC/100 WBC (test code = 5836200254) See_Comment [Automated me ssage] The system which generated this result transmitted reference range: 0.0 - 10.0 /100 WBCs. The reference range was not used to interpret this result as normal/abnormal. NRBC x10^3 (test code = 7433318225) <0.01 See_Comment [Automated messa ge] The system which generated this result transmitted reference range: 10*3/?L. The reference range was not used to interpret this result as normal/abnormal. GRAN MAT (NEUT) % (test code = 770-8) 60.5 % IMM GRAN % (test code = 7542569853) 0.30 % LYMPH % (test code = 736-9) 26.7 % MONO % (test code = 5905-5) 8.3 % EOS % (test code = 713-8) 3.4 % BASO % (test code = 706-2) 0.8 % GRAN MAT x10^3(ANC) (test code = 4268866062) 7.17 10*3/uL 1.99-6.95 H IMM GRAN x10^3 (test code = 8168261995) 0.03 10*3/uL 0.00-0.06 LYMPH x10^3 (test code = 731-0) 3.16 10*3/uL 1.09-3.23 MONO x10^3 (test code = 742-7) 0.98 10*3/uL 0.36-1.02 EOS x10^3 (test code = 711-2) 0.40 10*3/uL 0.06-0.53 BASO x10^3 (test code = 704-7) 0.10 10*3/uL 0.01-0.09 H Lab Interpretation (test code = 11830-2) Abnormal [facility] METABOLIC PANEL (NA, K, CL, CO2, GLUCOSE, BUN, CREATININE, CA)2021-08-19 10:52:12* Test Item Value Reference Range Interpretation Comme nts NA (test code = 4470275558) 136 mmol/L 135-145 K (test code = 0498322858) 3.8 mmol/L 3.5-5.0 CL (test code = 4332158267) 100 mmol/L 98-108 CO2 TOTAL (test code = 8689230286) 29 mmol/L 23-31 AGAP (test code = 9839207333) 2-16 BUN (test code = 3221830342) 32 mg/dL 7-23 H GLUCOSE (test code = 9577650869) 115 mg/dL 70-110 H CREATININE (test code = 1636752600) 1.67 mg/dL 0.60-1.25 H CALCIUM (test code = 8798755816) 9.1 mg/dL 8.6-10.6 eGFR (test code = 6355052232) mL/min/1.73m2 EBEN (test code = EBEN) Association [...] imaging tests). Lab Interpretation (test code = 11640-9) Abnormal [facility]16 10:52:12* Test Item Value Reference Range Interpretation Comme nts MAGNESIUM (test code = 0396960062) 1.9 mg/dL 1.7-2.4 Lab Interpretation (test cod e = 41677-2) Normal [facility] (NA, K, CL, CO2, GLUCOSE, BUN, CREATININE, CA)2021-08-18 21:19:06* Test Item Value Reference Range Interpretation Comme nts NA (test code = 5080803166) 135 mmol/L 135-145 K (test code = 6136013692) 3.9 mmol/L 3.5-5.0 CL (test code = 1942860697) 98 mmol/L 98-108 CO2 TOTAL (test code = 9451132981) 30 mmol/L 23-31 AGAP (test code = 6361436403) 2-16 BUN (test code = 1158125111) 29 mg/dL 7-23 H GLUCOSE (test code = 1562726712) 121 mg/dL 70-110 H CREATININE (test code = 6643277540) 1.58 mg/dL 0.60-1.25 H CALCIUM (test code = 4003635285) 8.9 mg/dL 8.6-10.6 eGFR (test code = 1090945069) mL/min/1.73m2 EBEN (test code = EBEN) Association [...] imaging tests). Lab Interpretation (test code = 10174-4) Abnormal [facility] METABOLIC PANEL (NA, K, CL, CO2, GLUCOSE, BUN, CREATININE, CA)2021-08-18 10:04:44* Test Item Value Reference Range Interpretation Comme nts NA (test code = 6898991511) 135 mmol/L 135-145 K (test code = 9525060460) 4.0 mmol/L 3.5-5.0 Slight hemolysis CL (test code = 9112045722) 101 mmol/L 98-108 CO2 TOTAL (test code = 9663659997) 29 mmol/L 23-31 AGAP (test code = 7540652113) 2-16 BUN (test code = 3841130510) 32 mg/dL 7-23 H Slight hemolysis GLUCOSE (test code = 8666003547) 114 mg/dL 70-110 H CREATININE (test code = 7261993063) 1.54 mg/dL 0.60-1.25 H CALCIUM (test code = 4034530064) 8.8 mg/dL 8.6-10.6 eGFR (test code = 2960381503) mL/min/1.73m2 EBEN (test code = EBEN) Association [...] imaging tests). Lab Interpretation (test code = 18425-8) Abnormal [facility]-15 10:04:44* Test Item Value Reference Range Interpretation Comme nts MAGNESIUM (test code = 2327268120) 2.2 mg/dL 1.7-2.4 Lab Interpretation (test cod e = 50584-7) Normal [facility] WITH [id number] 09:24:38* Test Item Value Reference Range Interpretation Comme nts WBC (test code = 6690-2) See_Comment [Automated [employer]cha] The system which generated this result transmitted reference range: 4.20 - 10.70 10*3/?L. The reference range was not used to interpret this result as normal/abnormal. RBC (test code = 789-8) See_Comment [Automated [employer]] The system which generated this result transmitted [...] 33.3 g/dL 31.2-35.0 RDW-SD (test code = 53501-1) 39.1 fL 38.5-51.6 RDW-CV (test code = 788-0) 12.6 % 12.1-15.4 PLT (test code = 777-3) See_Comment H [Automated Smart[employer]oota ge] The system which generated this result transmitted reference range: 150 - 328 10*3/?L. The reference range was not used to interpret this result as normal/abnormal. MPV (test code = 83600-6) 9.5 fL 9.8-13.0 L NRBC/100 WBC (test code = 9040176961) See_Comment [Automated me ssage] The system which generated this result transmitted reference range: 0.0 - 10.0 /100 WBCs. The reference range was not used to interpret this result as normal/abnormal. NRBC x10^3 (test code = 5487732090) <0.01 See_Comment [Automated messa ge] The system which generated this result transmitted reference range: 10*3/?L. The reference range was not used to interpret this result as normal/abnormal. GRAN MAT (NEUT) % (test code = 770-8) 65.3 % IMM GRAN % (test code = 7403671485) 0.20 % LYMPH % (test code = 736-9) 23.3 % MONO % (test code = 5905-5) 7.0 % EOS % (test code = 713-8) 3.5 % BASO % (test code = 706-2) 0.7 % GRAN MAT x10^3(ANC) (test code = 9949930204) 6.63 10*3/uL 1.99-6.95 IMM GRAN x10^3 (test code = 9028035778) <0.03 0.00-0.06 LYMPH x10^3 (test code = 731-0) 2.36 10*3/uL 1.09-3.23 MONO x10^3 (test code = 742-7) 0.71 10*3/uL 0.36-1.02 EOS x10^3 (test code = 711-2) 0.35 10*3/uL 0.06-0.53 BASO x10^3 (test code = 704-7) 0.07 10*3/uL 0.01-0.09 Lab Interpretation (test code = 30033-7) Abnormal [facility]A1C)2021-08-18 02:37:07* Test Item Value Reference Range Interpretation Comme nts HGB A1C (test code = 4548-4) 5.8 % 4.0-5.7 H EBEN (test code = EBEN) Reference RangesNormal: <5.7%Prediabetes: 5.7 - 6.4%Diabetes: > 6.5% Lab Interpretation (test code = 46559-8) Abnormal [facility] [id number] 01:03:37* Test Item Value Reference Range Interpretation Comments TROPONIN I (test code = 3599189608) 0.101 ng/mL See_Comment H [Automated message] The [...] of biotin. Lab Interpretation (test code = 76244-6) Abnormal [facility]ansthor[facility] (TTE)2021-08-17 22:14:20* Test Item Value Reference Range Interpretation Comme nts Ao root annulus (test code = 8872111284) 3.3 cm Ao root diam (test code = 1275814939) 3.30 cm Aortic root (test code = 6103926344) 3.3 cm LA size (test code = 5730395359) 3.7 cm LVOT diameter (test code = 4535527557) 2.00 cm LVIDD (test code = 5164259933) 5.90 cm IVS (test code = 1150798047) 1.26 cm Interventricular Septum Diastolic Thickness by 2D (test code = 1116692) 1.26 cm LVPWD (test code = 2439235413) 1.19 cm PW (test code = 5065092472) 1.19 cm 0.6-1.1 EF(Teich) (test code = 9433526957) 46.60 % LVIDS (test code = 4185016062) 4.50 cm FS (test code = 1739712627) 24 % EF - 2D (test code = 54613907) 46.60 % LAV(MOD-sp4) (test code = 5304729410) 65.30 mL MV Peak E Narciso (test code = 6761999192) 126.4 cm/s E wave decelartion time (test code = 4163149999) 0.14 s MV Prop V (test code = 6329524674) 35.00 cm/s LVOT stroke volume (test code = 1637747622) 45.10 cm3 LVOT peak narciso (test code = 4956181110) 90.0 cm/s LVOT mn grad (test code = 4368570724) mmHg AV LVOT peak gradient (test code = 9116577730) mmHg LVOT peak VTI (test code = 2499141193) 14.4 cm LV V1 mean (test code = 4662105733) 63.00 cm/s Aortic valve mean velocity (test code = 6506654489) 76.8 cm/s Ao peak narciso (test code = 4340909915) 125.5 cm/s Ao VTI (test code = 8516836181) 17.0 cm AV area by cont VTI (test code = 1996485753) 2.6 cm2 AV area peak narciso (test code = 0446060096) 2.2 cm2 Ao max PG (test code = 5886382714) 6.30 mm[Hg] AV peak gradient (test code = 7160622516) mmHg AV valve area (test code = 7321267998) 2.60 cm2 AV mean gradient (test code = 4172699510) mmHg TR Peak Narciso (test code = 8730070952) 119.4 cm/s Triscuspid Valve Regurgitation Peak Gradient (test code = 1056965737) mmHg Tapse (test code = 5068258745) 1.95 cm LA volume (BP) (test code = 3541710639) 73.5 mL LAV(MOD-sp2) (test code = 5725768578) 74.00 mL LA Volume Index (BP) (test code = 6493529788) 32.5 mL/m2 LV Diastolic Volume (BP) (test code = 7044737608) 232.2 mL EF(MOD-bp) (test code = 5979004339) 33.10 % LV Systolic Volume (BP) (test code = 2831219074) 155.2 mL SV(MOD-bp) (test code = 8283189426) 76.90 mL EF (test code = 6098617911) 33 % Left Ventricular Stroke Volume by 2-D Biplane-MOD (test code = 8337811) 76.9 mL Radiology Study observation (narrative) (test code = 52808-7) EBEN (test code = EBEN) ?Left?Ventricle: Left ventricle size is normal. There is mild concentric hypertrophy. Severe global hypokinesis present. Severely reduced systolic function with a visually estimated EF of 20 - 25%. There is restrictive diastolic dysfunction. Elevated left ventricular filling pressure. ?Right?Ventricle: Right ventricle is mildly dilated. Normal systolic function. ?Pericardium: The pericardium is normal. No pericardial effusion. Tex Niño MD VitalsHeight Weight BSA (Calculated - sq m) BP Pulse 6' (1.829 m) 230 lb (104.3 kg) 2.3 sq meters 183/126 82 [facility]85918[facility] (ALB,T.PRO,BILI T,BU/BC,ALT,AST,ALK PHOS)2021-08-17 17:59:20* Test Item Value Reference Range Interpretation Comme nts TOTAL BILI (test code = 7624772149) 0.4 mg/dL 0.1-1.1 BILI UNCON (test code = 1381660883) 0.4 mg/dL 0.1-1.1 BILI CONJ (test code = 5479254051) 0.0 mg/dL 0.0-0.3 T PROTEIN (test code = 7392117788) 6.4 g/dL 6.3-8.2 ALBUMIN (test code = 7855494214) 3.7 g/dL 3.5-5.0 ALK PHOS (test code = 7324720155) 64 U/L 34-122 ALTv (test code = 1742-6) 39 U/L 5-50 AST(SGOT) (test code = 8419760271) 30 U/L 13-40 Lab Interpretation (test cod e = 79291-6) Normal [facility] [id number] 17:21:19* Test Item Value Reference Range Interpretation Comme nts FERRITIN (test code = 3953068135) 29.7 ng/mL 18.0-464.0 EBEN (test code = EBEN) Biotin has been reported to cause a negative bias, interpret results relative to patient's use of biotin. Lab Interpretation (test code = 80009-4) Normal [facility] STIM[facility]ATING [id number] 17:14:24 * Test Item Value Reference Range Interpretation Comme nts TSH (test code = 1996570569) See_Comment [Automated SmartShoota ge] The system which generated this result transmitted reference range: 0.45 - 4.70 mIU/L. The reference range was not used to interpret this result as normal/abnormal. Lab Interpretation (test code = 05454-7) Normal [facility]AL [id number] 16:55:55* Test Item Value Reference Range Interpretation Comme nts NT-proBNP (test code = 0826966183) 5070 pg/mL See_Comment H [Automated message] The system which generated this result transmitted reference range: <=125. The reference range was not used to interpret this result as normal/abnormal. EBEN (test code = EBEN) Biotin has been reported to cause a negative bias, interpret results relative to patient's use of biotin. Lab Interpretation (test code = 27389-3) Abnormal [facility]TR[facility] [id number] 16:55:55* Test Item Value Reference Range Interpretation Comments TROPONIN I (test code = 8315238319) 0.117 ng/mL See_Comment H [Automated message] The [...] of biotin. Lab Interpretation (test code = 88961-3) Abnormal [facility] NorthwestIRON [id number] 16:52:53* Test Item Value Reference Range Interpretation Comme nts IRON (test code = 9761842427) 51 ug/dL 50-160 TIBC (test code = 6723004795) 298 ug/dL 250-410 % FE SAT (test code = 6367633799) 17 % 20-50 L Lab Interpretation (test cod e = 46661-2) Abnormal [facility]2022-04-14 16:41:35* Test Item Value Reference Range Interpretation Comme nts MAGNESIUM (test code = 5127866974) 1.6 mg/dL 1.7-2.4 L Lab Interpretation (test cod e = 67713-4) Abnormal [facility] NorthwestPHOSPHORUS2022-04-14 16:41:35* Test Item Value Reference Range Interpretation Comme nts PHOSPHORUS (test code = 7088910117) 4.0 mg/dL 2.5-5.0 Lab Interpretation (test cod e = 48935-3) Normal [facility] METABOLIC PANEL (NA, K, CL, CO2, GLUCOSE, BUN, CREATININE, CA)2021-08-17 16:41:35* Test Item Value Reference Range Interpretation Comme nts NA (test code = 7173308156) 134 mmol/L 135-145 L K (test code = 4997845581) 3.6 mmol/L 3.5-5.0 CL (test code = 2953167664) 99 mmol/L 98-108 CO2 TOTAL (test code = 6832322157) 32 mmol/L 23-31 H AGAP (test code = 2705927514) 2-16 BUN (test code = 2233169660) 24 mg/dL 7-23 H GLUCOSE (test code = 9706603472) 111 mg/dL 70-110 H CREATININE (test code = 3209652626) 1.60 mg/dL 0.60-1.25 H CALCIUM (test code = 8176590903) 8.8 mg/dL 8.6-10.6 eGFR (test code = 1056648500) mL/min/1.73m2 EBEN (test code = EBEN) Association [...] imaging tests). Lab Interpretation (test code = 45416-7) Abnormal [facility] WITH [id number] 16:00:05* Test Item Value Reference Range Interpretation Comme nts WBC (test code = 6690-2) See_Comment [Automated [employer]] The system which generated this result transmitted reference range: 4.20 - 10.70 10*3/?L. The reference range was not used to interpret this result as normal/abnormal. RBC (test code = 789-8) See_Comment L [Automated [employer]] The system which generated this result transmitted [...] 33.7 g/dL 31.2-35.0 RDW-SD (test code = 09417-6) 39.5 fL 38.5-51.6 RDW-CV (test code = 788-0) 12.6 % 12.1-15.4 PLT (test code = 777-3) See_Comment H [Automated [employer] ge] The system which generated this result transmitted reference range: 150 - 328 10*3/?L. The reference range was not used to interpret this result as normal/abnormal. MPV (test code = 63394-6) 9.4 fL 9.8-13.0 L NRBC/100 WBC (test code = 5604431247) See_Comment [Automated [employer] ssage] The system which generated this result transmitted reference range: 0.0 - 10.0 /100 WBCs. The reference range was not used to interpret this result as normal/abnormal. NRBC x10^3 (test code = 8411021265) <0.01 See_Comment [Automated [employer] ge] The system which generated this result transmitted reference range: 10*3/?L. The reference range was not used to interpret this result as normal/abnormal. GRAN MAT (NEUT) % (test code = 770-8) 65.6 % IMM GRAN % (test code = 6713376878) 0.20 % LYMPH % (test code = 736-9) 23.8 % MONO % (test code = 5905-5) 6.7 % EOS % (test code = 713-8) 3.2 % BASO % (test code = 706-2) 0.5 % GRAN MAT x10^3(ANC) (test code = 8679958696) 6.58 10*3/uL 1.99-6.95 IMM GRAN x10^3 (test code = 4481857002) <0.03 0.00-0.06 LYMPH x10^3 (test code = 731-0) 2.39 10*3/uL 1.09-3.23 MONO x10^3 (test code = 742-7) 0.67 10*3/uL 0.36-1.02 EOS x10^3 (test code = 711-2) 0.32 10*3/uL 0.06-0.53 BASO x10^3 (test code = 704-7) 0.05 10*3/uL 0.01-0.09 Lab Interpretation (test code = 89764-2) Abnormal [facility]"
--- NOTE | 2023-05-13 11:15 | EDPHYS ---
Physician Documentation [facility] Name: Wagner Padron Age: 38 yrs Sex: Male : 1985 Arrival Date: 05/13/2023 Time: 10:18 Bed 22 Private MD: ED Physician Nataliia Steel HPI: 05/13 18:18 This 38 yrs old Black Male presents to ER via Ambulatory with complaints of Gout, sb4 bilateral foot pain. 18:18 patient with history of gout, was recently treated here inpatient for suspected sb4 cellulitis of bilateral foot/ankle. discharged with abx, steroids, colchicine 1 week ago. states the pain has returned, which feels similar to his prior gout attacks. reports compliance with low purine diet. Historical: - Allergies: 11:09 Nitroglycerin; iw - PMHx: 11:09 CHF; Gout; High Cholesterol; Hypercholesterolemia; Hypertension; iw - PSHx: 11:09 Leg sx; right femur surgery; iw - Immunization history:: Adult Immunizations up to date. - Social history:: Smoking status: Patient denies any tobacco usage or history of. ROS: 18:18 Constitutional: Negative for fever, chills, and weight loss, sb4 18:18 MS/extremity: Positive for pain, of the right foot and left foot, Exam: 18:18 Constitutional: This is a well developed, well nourished patient who is awake, alert, sb4 and in no acute distress. Head/Face: Normocephalic, atraumatic. Eyes: Extra-ocular motions intact. Periorbital areas with no swelling, redness, or edema. ENT: Mucous membranes moist. Neuro: Awake and alert, GCS 15, oriented to person, place, time, and situation. Motor strength 5/5 in all extremities. Sensory grossly intact. 18:18 Musculoskeletal/extremity: ROM: intact in all extremities, Circulation is intact in all extremities. Pulses: are normal with no appreciated deficits, Perfusion: the extremity is normally perfused throughout, Calf tenderness, is absent, Sensation intact. Weight bearing: able to fully bear weight, 18:18 Skin: Appearance: Temperature: warm, bilateral feet, Vital Signs: 11:07 BP 127 / 101; Pulse 78; Resp 16; Temp 97.6; Pulse Ox 100% ; iw 12:00 BP 131 / 97; Pulse 80; Resp 20; Pulse Ox 100% ; kb3 MDM: 11:11 Patient medically screened. sb4 18:18 Differential diagnosis: gout, cellulitis, contusion, sprain. Data reviewed: vital sb4 signs, nurses notes, and as a result, I will discharge patient. Counseling: I had a detailed discussion with the patient and/or guardian regarding the historical points, exam findings, and any diagnostic results supporting the discharge/admit diagnosis, to return to the emergency department if symptoms worsen or persist or if there are any questions or concerns that arise at home. Administered Medications: 12:16 Drug: Dexamethasone IM 10 mg IM once Route: IM; Site: right deltoid; kb3 12:16 Drug: Hydrocodone-Acetaminophen PO (7.5 mg-325 mg) 1 tabs PO once Route: PO; kb3 Disposition Summary: 05/13/23 11:14 Discharge Ordered Notes: Location: Home sb4 Problem: an acute exacerbation sb4 Symptoms: have improved sb4 Condition: Stable sb4 Diagnosis - Idiopathic gout, left ankle and foot sb4 - Idiopathic gout, right ankle and foot sb4 Followup: sb4 - With: Private Physician - When: 2 - 3 days - Reason: Recheck today's complaints, Re-evaluation by your physician Discharge Instructions: - Discharge Summary Sheet sb4 - Gout sb4 - Low-Purine Eating Plan sb4 Forms: - Medication Reconciliation Form sb4 - Thank You Letter sb4 - Antibiotic Education sb4 - Prescription Opioid Use sb4 - Patient Portal Instructions sb4 - Leadership Thank You Letter sb4 Prescriptions: - colchicine 0.6 mg Oral tablet - take 1 tablet ORAL route daily; 28 tablet; Refills: 0, Product Selection sb4 Permitted - Medrol ([place]) 4 mg Oral Tablets, Dose Pack - take 1 tablet ORAL route as directed - follow package instructions; 1 packet; sb4 Refills: 0, Product Selection Permitted Addendum: 05/14/2023 19:46 Co-signature as Attending Physician, Nataliia Steel MD I agree with the assessment and g b1 plan of care. Signatures: Maxine Cooper, RN RN iw Katherine Vasques RN RN kb3 Sweetie Chatterjee PA-C PA-C sb4 Nataliia Steel MD MD gb1
--- NOTE | 2023-05-13 11:15 | ER ---
Nurse's Notes [facility] Name: Wagner Padron Age: 38 yrs Sex: Male : 1985 Arrival Date: 05/13/2023 Time: 10:18 Bed 22 Private MD: Diagnosis: Idiopathic gout, left ankle and foot;Idiopathic gout, right ankle and foot Presentation: 05/13 11:07 Chief complaint: Patient states: BILATERAL FOOT PAIN AND EDEMA SINCE LAST PM. iw Coronavirus screen: At this time, the client does not indicate any symptoms associated with coronavirus-19. Ebola Screen: No symptoms or risks identified at this time. Initial Sepsis Screen: Does the patient meet any 2 criteria? No. Patient's initial sepsis screen is negative. Does the patient have a suspected source of infection? No. Patient's initial sepsis screen is negative. Risk Assessment: Do you want to hurt yourself or someone else?. Onset of symptoms is unknown. 11:07 Method Of Arrival: Ambulatory iw 11:07 Acuity: HERMELINDA 4 iw Triage Assessment: 11:09 General: Appears uncomfortable, Behavior is cooperative, appropriate for age, anxious. iw Pain: Complains of pain in right foot and left foot. Historical: - Allergies: 11:09 Nitroglycerin; iw - PMHx: 11:09 CHF; Gout; High Cholesterol; Hypercholesterolemia; Hypertension; iw - PSHx: 11:09 Leg sx; right femur surgery; iw - Immunization history:: Adult Immunizations up to date. - Social history:: Smoking status: Patient denies any tobacco usage or history of. Screenin:00 [facility] ED Fall Risk Assessment (Adult) History of falling in the last 3 months, kb3 including since admission No falls in past 3 months (0 pts). Abuse screen: Denies threats or abuse. Denies injuries from another. Nutritional screening: No deficits noted. Tuberculosis screening: No symptoms or risk factors identified. Assessment: 12:00 General: Appears in no apparent distress. uncomfortable, Behavior is calm, cooperative. kb3 12:00 Pain: Complains of pain in right foot and left foot Pain does not radiate. Pain kb3 currently is 10 out of 10 on a pain scale. Quality of pain is described as burning, pressure, throbbing. Vital Signs: 11:07 BP 127 / 101; Pulse 78; Resp 16; Temp 97.6; Pulse Ox 100% ; iw 12:00 BP 131 / 97; Pulse 80; Resp 20; Pulse Ox 100% ; kb3 ED Course: 10:20 Patient arrived in ED. mr 11:09 Triage completed. iw 11:09 Arm band placed on. iw 11:11 Sweetie Chatterjee PA-C [facility]. sb4 11:11 Nataliia Steel MD is Attending Physician. sb4 12:00 Patient has correct armband on for positive identification. Provided Education on: kb3 Discharge medications, follow up, diet. 12:00 No provider procedures requiring assistance completed. Patient did not have IV access kb3 during this emergency room visit. Administered Medications: 12:16 Drug: Dexamethasone IM 10 mg IM once Route: IM; Site: right deltoid; kb3 12:16 Drug: Hydrocodone-Acetaminophen PO (7.5 mg-325 mg) 1 tabs PO once Route: PO; kb3 Medication: 12:00 VIS not applicable for this client. kb3 Outcome: 11:14 Discharge ordered by . sb4 12:25 Discharged to home ambulatory, kb3 12:25 Condition: stable 12:25 Discharge instructions given to patient, Instructed on discharge instructions, follow up and referral plans. medication usage, Demonstrated understanding of instructions, follow-up care, medications, Prescriptions given X 2, 12:25 Patient left the ED. kb3 Signatures: Niurka Abdul, Reg Reg Maxine Cooper, RN RN iw Katherine Vasques RN RN kb3 Sweetie Chatterjee PA-C PA-C sb4
[2023-05-13 12:41] VITALS: BP 131/97; TEMP 97.6; O2SAT 100
== END ==
LOC: ER 10:18
DX: M10.072 Idiopathic gout, left ankle and foot (principal); M10.071 Idiopathic gout, right ankle and foot; I10 Essential (primary) hypertension; E78.00 Pure hypercholesterolemia, unspecified
CPT/HCPCS: 96372; 99284; J1100

== ENCOUNTER → 2023-05-28 | Emergency (ER) | payer OTHER ==
[~2023-05-28] MED LIST changes: -HYDROCODONE/APAP 7.5/325 MG TAB ONE; +KETOROLAC 30 MG/ML INJ ONE
--- OUTSIDE RECORDS SUMMARY | 2023-05-28 08:59 | XMS REPORT | Continuity of Care Document ---
Author Name Unknown Address [address] [facility] [address] [place] [address] [facility] thconnect Address [address] [facility] 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 Industrial Technology Teacher Name Role Phone Cristy FREDERICK, Marshall Dean Primary Care Physician Cipriano FREDERICK, Basim Sanz Attending Clinician + Tameka NOVOA Attending Clinician Unavailable Tameka Garcia Attending Clinician [phone] Doctor Unassigned, [place] Attending Clinician U jose e Neumann RN, Sherrell Attending Clinician Unavailable DIMITRIOS ABEL Attending Clinician Dimitrios Kasper MD Attending Clinician [phone] DIMITRIOS ABEL Admitting Clinician Dimitrios Kasper MD Admitting Clinician Payers Payer Name Policy Type Policy Number Effective Date Expirati on Date Source Problems Condition Name Condition Details Condition Category Status Onset Date Resolution Date Last Treatment Date Treating Clinician Comments Source SOB (shortness of breath) SOB (shortness of breath) Disease Active -14 00:00: 00 [facility] Obesity (BMI 30-39.9) Obesity (BMI 30-39.9) Disease Active 11-23 00:00: 00 [facility] Allergies, Adverse Reactions, Alerts Allergy Name Allergy Type Status Severity Reaction(s) Onset Date Inactive Date Treating Clinician Comments Source MORPHINE DRUG INGREDI Active Unknown-Cmnt 12-06 00:00: 00 [facility] Morphine Propensi ty to adverse reaction s Active Unknown - See comments 12-06 00:00: 00 Patient does not know reaction [facility] NO KNOWN ALLERGIE S Drug Class Active [facility] Social History Social Habit Start Date Stop Date Quantity Comments Source History SDOH Alcohol Std Drinks [facility] History SDOH Alcohol Binge [facility] History SDOH Alcohol Frequency [facility] Exposure to SARS-CoV-2 (event) 2021-11-26 00:00:00 2021-12-06 12:55:00 Not sure [facility] Alcohol intake 2021-12-06 00:00:00 2021-12-06 00:00:00 Current drinker of alcohol (finding) [facility] Alcohol Comment 2016-11-22 00:00:00 2016-11-22 00:00:00 Daily [facility] Tobacco use and exposure 2016-11-22 00:00:00 2016-11-22 00:00:00 Smokeless tobacco non-user [facility] Sex Assigned At 1985 00:00:00 1985 00:00:00 [facility] Smoking Status Start Date Stop Date Source Never smoked tobacco [facility] Medications Ordered Medication Name Filled Medication Name Start Date Stop Date Current Medication? Ordering Clinician Indication Dosage Frequency Signature (SIG) Comments Components Source lisinopriL (PRINIVIL,Z ESTRIL) tablet 20 mg 12-07 14:00: 00 Yes 20mg 20 mg, Oral, DAILY, First dose on Sat12/07/21 at 0900, Until Discontinu ed, Routine [facility] HYDROcodone -acetaminop hen (NORCO) 10-325 mg tablet 1 tablet 12-06 17:15: 00 12-06 16:12 :00 No 1{tbl} 1 tablet, Oral, ONCE, 1 dose, On Sat12/06/21 at 1215, Routine [facility] carvediloL (COREG) tablet 25 mg 12-06 17:15: 00 12-06 16:12 :00 No 25mg 25 mg, Oral, ONCE, 1 dose, On Sat12/06/21 at 1215, Routine [facility] methylpredn isolone sod succ (SOLU-MEDRO L) injection 125 mg 12-06 16:45: 00 12-06 16:09 :00 No 125mg 125 mg, Intramuscu lar, ONCE, 1 dose, On Sat12/06/21 at 1145, REGINA [facility] acetaminoph en-codeine 300-30 mg tablet 12-06 00:00: 00 Yes [id number] 1{tbl} Take 1 tablet by mouth every 4 (four) hours as needed for Pain (scale 4-6). Indication s: acute pain [facility] predniSONE 20 mg tablet 12-06 00:00: 00 Yes [id number] 1 PO BID x 4 days [facility] acetaminoph en-codeine 300-30 mg tablet 12-06 00:00: 00 Yes [id number] 1{tbl} Take 1 tablet by mouth every 4 (four) hours as needed for Pain (scale 4-6). Indication s: acute pain [facility] predniSONE 20 mg tablet 12-06 00:00: 00 Yes [id number] 1 PO BID x 4 days [facility] predniSONE 20 mg tablet 12-06 00:00: 00 12-06 00:00 :00 No [id number] 1 PO BID x 4 days [facility] aspirin 81 mg chewable tablet 09-14 00:00: 00 Yes [id number] 81mg Take 1 tablet by mouth daily. [facility] atorvastati n 40 mg tablet 09-14 00:00: 00 Yes [id number] 40mg Take 1 tablet by mouth at bedtime. [facility] carvediloL 25 mg tablet 09-14 00:00: 00 Yes [id number] 37.5mg Take 1.5 tablets by mouth 2 (two) times daily with meals. [facility] furosemide 40 mg tablet 2021-0 09-14 00:00: 00 Yes [id number] 40mg Take 1 tablet by mouth every morning and evening. [facility] lisinopriL 10 mg tablet 2021-0 09-14 00:00: 00 Yes [id number] 30mg Take 3 tablets by mouth daily. [facility] spironolact one 25 mg tablet 0 09-14 00:00: 00 Yes [id number] 25mg Take 1 tablet by mouth daily. [facility] aspirin 81 mg chewable tablet 0 09-14 00:00: 00 Yes [id number] 81mg Take 1 tablet by mouth daily. [facility] atorvastati n 40 mg tablet 2021-0 09-14 00:00: 00 Yes [id number] 40mg Take 1 tablet by mouth at bedtime. [facility] carvediloL 25 mg tablet 2021-0 09-14 00:00: 00 Yes [id number] 37.5mg Take 1.5 tablets by mouth 2 (two) times daily with meals. [facility] furosemide 40 mg tablet 0 09-14 00:00: 00 Yes [id number] 40mg Take 1 tablet by mouth every morning and evening. [facility] lisinopriL 10 mg tablet 2021-0 09-14 00:00: 00 Yes [id number] 30mg Take 3 tablets by mouth daily. [facility] spironolact one 25 mg tablet 0 09-14 00:00: 00 Yes [id number] 25mg Take 1 tablet by mouth daily. [facility] aspirin 81 mg chewable tablet 2021-0 09-14 00:00: 00 Yes [id number] 81mg Take 1 tablet by mouth daily. [facility] atorvastati n 40 mg tablet 2021-0 09-14 00:00: 00 Yes [id number] 40mg Take 1 tablet by mouth at bedtime. [facility] carvediloL 25 mg tablet 2021-0 09-14 00:00: 00 Yes [id number] 37.5mg Take 1.5 tablets by mouth 2 (two) times daily with meals. [facility] furosemide 40 mg tablet 09-14 00:00: 00 Yes [id number] 40mg Take 1 tablet by mouth every morning and evening. [facility] lisinopriL 10 mg tablet 09-14 00:00: 00 Yes [id number] 30mg Take 3 tablets by mouth daily. [facility] spironolact one 25 mg tablet 09-14 00:00: 00 Yes [id number] 25mg Take 1 tablet by mouth daily. [facility] aspirin 81 mg chewable tablet 09-14 00:00: 00 Yes [id number] 81mg Take 1 tablet by mouth daily. [facility] atorvastati n 40 mg tablet 09-14 00:00: 00 Yes [id number] 40mg Take 1 tablet by mouth at bedtime. [facility] carvediloL 25 mg tablet 09-14 00:00: 00 Yes [id number] 37.5mg Take 1.5 tablets by mouth 2 (two) times daily with meals. [facility] furosemide 40 mg tablet 09-14 00:00: 00 Yes [id number] 40mg Take 1 tablet by mouth every morning and evening. [facility] lisinopriL 10 mg tablet 09-14 00:00: 00 Yes [id number] 30mg Take 3 tablets by mouth daily. [facility] spironolact one 25 mg tablet 09-14 00:00: 00 Yes [id number] 25mg Take 1 tablet by mouth daily. [facility] aspirin 81 mg chewable tablet 08-22 00:00: 00 02-19 04:59 :00 No [id number] 81mg Take 1 tablet by mouth daily for 180 days. [facility] lisinopriL 10 mg tablet 08-22 00:00: 00 02-19 04:59 :00 No [id number] 30mg Take 3 tablets by mouth daily for 180 days. [facility] spironolact one 25 mg tablet 2-0 4-19 00:00: 00 02-19 04:59 :00 No [id number] 25mg Take 1 tablet by mouth daily for 180 days. [facility] aspirin 81 mg chewable tablet 2-0 4-19 00:00: 00 02-19 04:59 :00 No [id number] 81mg Take 1 tablet by mouth daily for 180 days. [facility] lisinopriL 10 mg tablet 2-0 4-19 00:00: 00 02-19 04:59 :00 No [id number] 30mg Take 3 tablets by mouth daily for 180 days. [facility] spironolact one 25 mg tablet 2021-0 4-19 00:00: 00 02-19 04:59 :00 No [id number] 25mg Take 1 tablet by mouth daily for 180 days. [facility] aspirin 81 mg chewable tablet 2021-0 4-19 00:00: 00 02-19 04:59 :00 No [id number] 81mg Take 1 tablet by mouth daily for 180 days. [facility] lisinopriL 10 mg tablet 2021-0 4-19 00:00: 00 02-19 04:59 :00 No [id number] 30mg Take 3 tablets by mouth daily for 180 days. [facility] spironolact one 25 mg tablet 2-0 4-19 00:00: 00 02-19 04:59 :00 No [id number] 25mg Take 1 tablet by mouth daily for 180 days. [facility] aspirin 81 mg chewable tablet 2-0 4-19 00:00: 00 02-19 04:59 :00 No [id number] 81mg Take 1 tablet by mouth daily for 180 days. [facility] lisinopriL 10 mg tablet 2-0 4-19 00:00: 00 02-19 04:59 :00 No [id number] 30mg Take 3 tablets by mouth daily for 180 days. [facility] spironolact one 25 mg tablet 2-0 4-19 00:00: 00 02-19 04:59 :00 No [id number] 25mg Take 1 tablet by mouth daily for 180 days. [facility] aspirin 81 mg chewable tablet 2-0 4-19 00:00: 00 02-19 04:59 :00 No [id number] 81mg Take 1 tablet by mouth daily for 180 days. [facility] lisinopriL 10 mg tablet 2-0 4-19 00:00: 00 02-19 04:59 :00 No [id number] 30mg Take 3 tablets by mouth daily for 180 days. [facility] spironolact one 25 mg tablet 2021-0 4-19 00:00: 00 02-19 04:59 :00 No [id number] 25mg Take 1 tablet by mouth daily for 180 days. [facility] aspirin 81 mg chewable tablet 2021-0 4-19 00:00: 00 02-19 04:59 :00 No [id number] 81mg Take 1 tablet by mouth daily for 180 days. [facility] lisinopriL 10 mg tablet 2021-0 4-19 00:00: 00 02-19 04:59 :00 No [id number] 30mg Take 3 tablets by mouth daily for 180 days. [facility] spironolact one 25 mg tablet 2021-0 4-19 00:00: 00 02-19 04:59 :00 No [id number] 25mg Take 1 tablet by mouth daily for 180 days. [facility] aspirin 81 mg chewable tablet 2-0 4-19 00:00: 00 09-14 00:00 :00 No [id number] 81mg Take 1 tablet by mouth daily for 180 days. [facility] lisinopriL 10 mg tablet 2-0 4-19 00:00: 00 09-14 00:00 :00 No [id number] 30mg Take 3 tablets by mouth daily for 180 days. [facility] spironolact one 25 mg tablet 2-0 4-19 00:00: 00 09-14 00:00 :00 No [id number] 25mg Take 1 tablet by mouth daily for 180 days. [facility] carvediloL (COREG) tablet 37.5 mg 08-21 22:00: 00 Yes 37.5mg 37.5 mg, Oral, BID MEALS, First dose (after last modificati on) on Sat08/21/21 at 1700, Until Discontinu ed, Routine [facility] lisinopriL (PRINIVIL,Z ESTRIL) tablet 30 mg 08-21 14:00: 00 Yes 30mg 30 mg, Oral, DAILY, First dose (after last modificati on) on Sat08/21/21 at 0900, Until Discontinu ed, Routine [facility] magnesium oxide (MAG-OX 400) tablet 400 mg 08-21 13:45: 00 08-21 13:20 :00 No 400mg 400 mg, Oral, ONCE, 1 dose, On Sat08/21/21 at 0845, Routine [facility] amLODIPine 10 mg tablet 08-21 11:33: 41 08-21 00:00 :00 No 10mg Take 10 mg by mouth daily. [facility] hydroCHLORO thiazide 25 mg tablet 08-21 11:33: 41 08-21 00:00 :00 No 25mg Take 25 mg by mouth daily. [facility] ibuprofen 800 mg tablet 08-21 11:33: 41 08-21 00:00 :00 No 800mg Take 800 mg by mouth 2 (two) times daily. [facility] hydrALAZINE (APRESOLINE ) tablet 10 mg 08-21 07:00: 00 08-21 06:05 :00 No 10mg 10 mg, Oral, ONCE, 1 dose, On Sat08/21/21 at 0200, Routine [facility] atorvastati n 40 mg tablet 08-21 00:00: 00 02-18 04:59 :00 No [id number] 40mg Take 1 tablet by mouth at bedtime for 180 days. [facility] furosemide 40 mg tablet 2022-0 4-18 00:00: 00 02-18 04:59 :00 No [id number] 40mg Take 1 tablet by mouth every morning and evening for 180 days. [facility] carvediloL 25 mg tablet 2-0 4-18 00:00: 00 02-18 04:59 :00 No [id number] 37.5mg Take 1.5 tablets by mouth 2 (two) times daily with meals for 180 days. [facility] atorvastati n 40 mg tablet 2021-0 4-18 00:00: 00 02-18 04:59 :00 No [id number] 40mg Take 1 tablet by mouth at bedtime for 180 days. [facility] furosemide 40 mg tablet 2021-0 4-18 00:00: 00 02-18 04:59 :00 No [id number] 40mg Take 1 tablet by mouth every morning and evening for 180 days. [facility] carvediloL 25 mg tablet 2021-0 4-18 00:00: 00 02-18 04:59 :00 No [id number] 37.5mg Take 1.5 tablets by mouth 2 (two) times daily with meals for 180 days. [facility] atorvastati n 40 mg tablet 2021-0 4-18 00:00: 00 02-18 04:59 :00 No [id number] 40mg Take 1 tablet by mouth at bedtime for 180 days. [facility] furosemide 40 mg tablet 2021-0 4-18 00:00: 00 02-18 04:59 :00 No [id number] 40mg Take 1 tablet by mouth every morning and evening for 180 days. [facility] carvediloL 25 mg tablet 2-0 4-18 00:00: 00 02-18 04:59 :00 No [id number] 37.5mg Take 1.5 tablets by mouth 2 (two) times daily with meals for 180 days. [facility] atorvastati n 40 mg tablet 2021-0 4-18 00:00: 00 02-18 04:59 :00 No [id number] 40mg Take 1 tablet by mouth at bedtime for 180 days. [facility] furosemide 40 mg tablet 2021-0 4-18 00:00: 00 02-18 04:59 :00 No [id number] 40mg Take 1 tablet by mouth every morning and evening for 180 days. [facility] carvediloL 25 mg tablet 2-0 4-18 00:00: 00 02-18 04:59 :00 No [id number] 37.5mg Take 1.5 tablets by mouth 2 (two) times daily with meals for 180 days. [facility] atorvastati n 40 mg tablet 2021-0 4-18 00:00: 00 02-18 04:59 :00 No [id number] 40mg Take 1 tablet by mouth at bedtime for 180 days. [facility] furosemide 40 mg tablet 2021-0 4-18 00:00: 00 02-18 04:59 :00 No [id number] 40mg Take 1 tablet by mouth every morning and evening for 180 days. [facility] carvediloL 25 mg tablet 2021-0 4-18 00:00: 00 02-18 04:59 :00 No [id number] 37.5mg Take 1.5 tablets by mouth 2 (two) times daily with meals for 180 days. [facility] atorvastati n 40 mg tablet 2021-0 4-18 00:00: 00 02-18 04:59 :00 No [id number] 40mg Take 1 tablet by mouth at bedtime for 180 days. [facility] furosemide 40 mg tablet 2021-0 4-18 00:00: 00 02-18 04:59 :00 No [id number] 40mg Take 1 tablet by mouth every morning and evening for 180 days. [facility] carvediloL 25 mg tablet 2021-0 4-18 00:00: 00 02-18 04:59 :00 No [id number] 37.5mg Take 1.5 tablets by mouth 2 (two) times daily with meals for 180 days. [facility] atorvastati n 40 mg tablet 2021-0 4-18 00:00: 00 09-14 00:00 :00 No [id number] 40mg Take 1 tablet by mouth at bedtime for 180 days. [facility] furosemide 40 mg tablet 0 18 00:00: 00 09-14 00:00 :00 No [id number] 40mg Take 1 tablet by mouth every morning and evening for 180 days. [facility] carvediloL 25 mg tablet 2021-0 18 00:00: 00 09-14 00:00 :00 No [id number] 37.5mg Take 1.5 tablets by mouth 2 (two) times daily with meals for 180 days. [facility] carvediloL 25 mg tablet 08-21 00:00: 00 08-21 00:00 :00 No [id number] 25mg Take 1 tablet by mouth 2 (two) times daily with meals for 180 days. [facility] furosemide (LASIX) tablet 40 mg 08-20 14:00: 00 Yes 40mg 40 mg, Oral, QAM+PM, First dose (after last modificati on) on 08/20/21 at 0900, Until Discontinu ed, Routine [facility] lisinopriL (PRINIVIL,Z ESTRIL) tablet 20 mg 17 14:00: 00 08-21 11:42 :47 No 20mg 20 mg, Oral, DAILY, First dose (after last modificati on) on 08/20/21 at 0900, Until Discontinu ed, Routine [facility] carvediloL (COREG) tablet 25 mg 17 13:00: 00 08-21 17:46 :56 No 25mg 25 mg, Oral, BID MEALS, First dose (after last modificati on) on 08/20/21 at 0800, Until Discontinu ed, Routine [facility] lisinopriL (PRINIVIL,Z ESTRIL) tablet 5 mg 2021--16 15:00: 00 08-19 14:30 :00 No 5mg 5 mg, Oral, ONCE, 1 dose, On 08/19/21 at 1000, Routine [facility] carvediloL (COREG) tablet 12.5 mg 08-19 13:00: 00 08-19 22:39 :41 No 12.5mg 12.5 mg, Oral, BID MEALS, First dose (after last modificati on) on Sat08/19/21 at 0800, Until Discontinu ed, Routine [facility] furosemide (LASIX) injection 40 mg 08-19 01:00: 00 08-19 17:31 :11 No 40mg 40 mg, Slow IV Push, Q12H, First dose on Sat08/18/21 at 2000, Until Discontinu ed, Routine [facility] hydrALAZINE (APRESOLINE ) tablet 25 mg 08-18 21:47: 07 Yes 25mg 25 mg, Oral, Q6HPRN, Starting on Sat08/18/21 at 1647, Until Discontinu ed, Routine, SBP >180 [facility] lisinopriL (PRINIVIL,Z ESTRIL) tablet 10 mg 08-18 18:15: 00 08-18 18:14 :00 No 10mg 10 mg, Oral, DAILY, 1 dose, First dose on Sat08/18/21 at 1315, Routine [facility] lisinopriL (PRINIVIL,Z ESTRIL) tablet 10 mg 08-18 16:00: 00 08-19 13:47 :35 No 10mg 10 mg, Oral, DAILY, First dose on Sat08/18/21 at 1100, Until Discontinu ed, Routine [facility] spironolact one (ALDACTONE) tablet 25 mg 08-18 14:00: 00 Yes 25mg 25 mg, Oral, DAILY, First dose on Sat08/18/21 at 0900, Until Discontinu ed, Routine [facility] aspirin chewable tablet 81 mg 08-18 14:00: 00 Yes 81mg 81 mg, Oral, DAILY, First dose on Sat08/18/21 at 0900, Until Discontinu ed, Routine [facility] furosemide (LASIX) tablet 40 mg 08-18 14:00: 00 08-18 16:18 :32 No 40mg 40 mg, Oral, QAM+PM, First dose on Sat08/18/21 at 0900, Until Discontinu ed, Routine [facility] amLODIPine (NORVASC) tablet 10 mg 08-18 12:00: 00 08-18 11:05 :00 No 10mg 10 mg, Oral, ONCE, 1 dose, On Sat08/18/21 at 0700, Routine [facility] atorvastati n (LIPITOR) tablet 40 mg 08-18 02:00: 00 Yes 40mg 40 mg, Oral, QHS, First dose on Sat08/17/21 at 2100, Until Discontinu ed, Routine [facility] heparin (porcine) injection 5,000 Units 08-18 01:00: 00 Yes 5000U 5,000 Units, Subcutaneo us, Q12H, First dose on Sat08/17/21 at 2000, Until Discontinu ed, Routine [facility] hydrALAZINE (APRESOLINE ) tablet 10 mg 08-17 22:45: 00 08-17 23:51 :00 No 10mg 10 mg, Oral, ONCE, 1 dose, On Sat08/17/21 at 1745, Routine [facility] hydrALAZINE (APRESOLINE ) tablet 10 mg 08-17 21:45: 54 08-18 21:47 :24 No 10mg 10 mg, Oral, Q6HPRN, Starting on Sat08/17/21 at 1645, Until Sat08/18/21 at 1647, Routine, SBP >180 [facility] sulfur hexafluorid e microsphr (LUMASON) injection 5 mL 08-17 20:45: 00 08-17 20:45 :00 No [id number] 5mL 5 mL, Intravenou s, ONCE, 1 dose, On Sat08/17/21 at 1545, Routine
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 Restricted medication : DEZ QIU [facility] magnesium sulfate in water 4 gram/50 mL (8 %) IV Piggyback 4 g 08-17 18:15: 00 08-17 18:29 :00 No 4g 4 g, IV Piggyback, ONCE, 1 dose, On Viktoriya 08/17/21 at 1315, Routine [facility] KCL (KLOR-CON M20) tablet 40 mEq 08-17 18:15: 00 08-17 18:10 :00 No 40meq 40 mEq, Oral, ONCE, 1 dose, On Viktoriya 08/17/21 at 1315, Routine [facility] furosemide (LASIX) injection 40 mg 08-17 17:15: 00 08-18 12:42 :25 No 40mg 40 mg, Slow IV Push, Q12H, First dose on Viktoriya 08/17/21 at 1215, Until Discontinu ed, Routine [facility] acetaminoph en (TYLENOL) tablet 650 mg 08-17 14:09: 58 Yes 650mg 650 mg, Oral, Q6HPRN, Starting on Viktoriya 08/17/21 at 0909, Until Discontinu ed, Routine, Pain (scale 1-3) [facility] amLODIPine 10 mg tablet 08-17 09:16: 15 Yes 10mg Take 10 mg by mouth daily. [facility] hydroCHLORO thiazide 25 mg tablet 08-17 09:16: 15 Yes 25mg Take 25 mg by mouth daily. [facility] ibuprofen 800 mg tablet 08-17 09:16: 15 Yes 800mg Take 800 mg by mouth 2 (two) times daily. [facility] Vital Signs Vital Name Observation Time Observation Value Comments S jenniferusama Systolic blood pressure 2021-12-06 17:40:07 158 mm[Hg] [facility] Diastolic blood pressure 2021-12-06 17:40:07 105 mm[Hg] [facility] Heart rate 2021-12-06 15:43:00 91 /min [facility] Respiratory rate 2021-12-06 15:43:00 20 /min [facility] Oxygen saturation in Arterial blood by Pulse oximetry 2021-12-06 15:43:00 97 /min [facility] Body temperature 2021-12-06 14:49:00 36.61 Anastasiia [facility] Body height 2021-12-06 14:49:00 182.9 cm [facility] Body weight 2021-12-06 14:49:00 99.791 kg [facility] BMI 2021-12-06 14:49:00 29.84 kg/m2 [facility] Systolic blood pressure 2021-08-21 20:39:00 143 mm[Hg] [facility] Diastolic blood pressure 2021-08-21 20:39:00 104 mm[Hg] [facility] Heart rate 2021-08-21 20:39:00 79 /min [facility] Body temperature 2021-08-21 20:39:00 36 Anastasiia [facility] Respiratory rate 2021-08-21 20:39:00 18 /min [facility] Oxygen saturation in Arterial blood by Pulse oximetry 2021-08-21 20:39:00 99 /min [facility] Body weight 2021-08-21 10:57:00 104.055 kg [facility] BMI 2021-08-21 10:57:00 31.11 kg/m2 [facility] Body height 2021-08-18 10:31:00 182.9 cm [facility] Procedures Procedure Date / Time Performed Performing Clinician Source NOTICE OF PRIVACY PRACTICES 2021-12-06 14:38:21 Doctor Unassigned, [place] [facility] CONSENT/REFUSAL FOR DIAGNOSIS AND TREATMENT 2021-12-06 14:38:03 Doctor Unassigned, [place] [facility] AUTHORIZATION FOR RELEASE OF PHI 2021-09-01 05:01:00 Doctor Unassigned, [place] [facility] MAGNESIUM 2021-08-21 08:42:[address] [facility] METABOLIC PANEL (NA, K, CL, CO2, GLUCOSE, BUN, CREATININE, CA) 2021-08-21 08:42:00 Eryn Cowart [facility] N-TERMINAL PRO-BNP 2021-08-21 08:42:[address] [facility] HB ECG ROUTINE & RHYTHM STRIP 2021-08-20 13:02:55 [facility]-08-20 09:22[facility] (NA, K, CL, CO2, GLUCOSE, BUN, CREATININE, CA) 2021-08-20 09:22:00 Anca [facility] CBC WITH DIFF 2021-08-20 09:22:00 Anca [facility] HB ECG ROUTINE & RHYTHM STRIP 2021-08-19 13:08:08 [facility] 2021-08-19 10:21:00 Gaston [facility] BASIC METABOLIC PANEL (NA, K, CL, CO2, GLUCOSE, BUN, CREATININE, CA) 2021-08-19 10:21:00 [facility] BASIC METABOLIC PANEL (NA, K, CL, CO2, GLUCOSE, BUN, CREATININE, CA) 2021-08-18 19:41:00 [facility] RHYTHM STRIP 2021-08-18 14:50:24 [facility] 2021-08-18 09:10:00 Eryn Cowart [facility] BASIC METABOLIC PANEL (NA, K, CL, CO2, GLUCOSE, BUN, CREATININE, CA) 2021-08-18 09:10:00 [facility] 2021-08-18 09:10[facility]08[facility]17 23:58[facility]TTE[facility] COMPLETE W/ CONTRAST 2021-08-17 18:53:00 [facility]OS[facility] 2021-08-17 15:43:00 Eryn Cowart [facility] MAGNESIUM 2021-08-17 15:43:00 [facility] 2021-08-17 15:43:00 Eryn Cowart [facility] TROPONIN I 2021-08-17 15:43:00 Supa [facility] [facility] THYROID STIMULATING HORMONE 2021-08-17 15:43:00 Supa [facility] HEPATIC FUNCTION PANEL (23623) (ALB,T.PRO,BILI T,BU/BC,ALT,AST,ALK PHOS) 2021-08-17 15:43:00 Supa [facility] BASIC METABOLIC PANEL (NA, K, CL, CO2, GLUCOSE, BUN, CREATININE, CA) 2021-08-17 15:43:00 Supa [facility] IRON PANEL 2021-08-17 15:43:00 Supa [facility] CBC WITH DIFF 2021-08-17 15:43:00 Supa [facility] GLYCOSYLATED HEMOGLOBIN (A1C) 2021-08-17 15:43:00 Supa [facility] N-TERMINAL PRO-BNP 2021-08-17 15:43:00 Supa [facility] XR CHEST 1 VW 2021-08-17 15:10:00 Supa [facility] Encounters Start Date/Time End Date/Time Encounter Type Admission Type Attending [facility] Facility Care Department Encounter ID Source 2022-08-17 00:00:00 2022-08-17 00:00:00 Basim Garcia [facility] 1..840.114 350.1.13.10 4.2.7.2.686 [id number] [facility] 2021-12-06 09:51:00 2021-12-06 13:09:00 Emergency X Tameak NOVOA [facility] ERT [id number] [facility] 2021-12-06 09:51:00 2021-12-06 13:09:[address] [facility] 1..840.114 350.1.13.10 4.2.7.2.686 [id number] [facility] 2021-12-06 00:00:00 2021-12-06 00:00:00 Orders Only Doctor Unassigned, [facility] 1.2840.114 350.1.13.10 4.2.7.2.686 [id number] [id number] [facility] 2021-09-14 00:00:00 2021-09-14 00:00:[address] [facility] 1.2840.114 350.1.13.10 4.2.7.2.686 [id number] [facility] 2021-09-12 00:00:00 2021-09-12 00:00:00 Telephone [facility] MED[facility] OFF[facility]ILD[facility] 1.2840.114 350.1.13.10 4.2.7.2.686 [id number] [facility] 2021-09-01 00:00:00 2021-09-01 00:00:[address] [facility] 1.2840.114 350.1.13.10 4.2.7.2.686 [id number] [facility] 2021-09-01 00:00:00 2021-09-01 00:00:00 Orders Only Doctor Unassigned, [place] 1.2840.114 350.1.13.10 4.2.7.2.686 [id number] [id number] [facility] 2021-08-30 00:00:00 2021-08-30 00:00:[address] [facility] 1.2840.114 350.1.13.10 4.2.7.2.686 [id number] [facility] 2021-08-22 00:00:00 2021-08-22 00:00:00 Transition of Care Sherrell Neumann 1.2.840.114 350.1.13.10 4.2.7.2.686 [id number] [facility] 2021-08-17 08:35:00 2021-08-21 17:42:00 Inpatient U DIMITRIOS [facility]EL [facility] [id number] [facility] 2021-08-17 08:35:00 2021-08-21 17:42:00 Hospital Encounter TaimonieBasim [facility] Dimitrios Abel [facility] [address] 1.2.840.114 350.1.13.10 4.2.7.2.686 [id number] [facility] 2021-08-18 00:00:00 2021-08-18 00:00:00 Telephone Dimitrios Abel [facility] 1.2.840.114 350.1.13.10 4.2.7.2.686 [id number] [facility] Results Test Description Test Time Test Comments Results Result Co mments Source [facility] (NA, K, CL, CO2, GLUCOSE, BUN, CREATININE, CA)2021-08-21 10:07:34* Test Item Value Reference Range Interpretation Comme nts NA (test code = 0934607893) 135 mmol/L 135-145 K (test code = 8145747570) 4.4 mmol/L 3.5-5.0 CL (test code = 2220127444) 102 mmol/L 98-108 CO2 TOTAL (test code = 4913687629) 26 mmol/L 23-31 AGAP (test code = 1059423201) 2-16 BUN (test code = 6889726008) 27 mg/dL 7-23 H GLUCOSE (test code = 3869906339) 104 mg/dL 70-110 CREATININE (test code = 3456659163) 1.49 mg/dL 0.60-1.25 H CALCIUM (test code = 0872935405) 9.0 mg/dL 8.6-10.6 eGFR (test code = 4456623977) mL/min/1.73m2 EBEN (test code = EBEN) Association [...] imaging tests). Lab Interpretation (test code = 11082-2) [facility] 10:07:34* Test Item Value Reference Range Interpretation Comme nts MAGNESIUM (test code = 6074086838) 1.9 mg/dL 1.7-2.4 Lab Interpretation (test cod e = 00645-1) Normal [facility] (NA, K, CL, CO2, GLUCOSE, BUN, CREATININE, CA)2021-08-20 10:22:59* Test Item Value Reference Range Interpretation Comme nts NA (test code = 9482587906) 137 mmol/L 135-145 K (test code = 2584382666) 4.4 mmol/L 3.5-5.0 CL (test code = 7747364059) 102 mmol/L 98-108 CO2 TOTAL (test code = 3459967469) 26 mmol/L 23-31 AGAP (test code = 2941341252) 2-16 BUN (test code = 6991689520) 31 mg/dL 7-23 H GLUCOSE (test code = 2196588404) 119 mg/dL 70-110 H CREATININE (test code = 0244556018) 1.56 mg/dL 0.60-1.25 H CALCIUM (test code = 1084613096) 9.1 mg/dL 8.6-10.6 eGFR (test code = 6299467020) mL/min/1.73m2 EBEN (test code = EBEN) Association [...] imaging tests). Lab Interpretation (test code = 59703-9) [facility]17 10:22:59* Test Item Value Reference Range Interpretation Comme nts MAGNESIUM (test code = 0865628738) 2.1 mg/dL 1.7-2.4 Lab Interpretation (test cod e = 02499-1) Normal [facility] WITH [id number] 09:42:15* Test Item Value Reference Range Interpretation [...] 32.8 g/dL 31.2-35.0 RDW-SD (test code = 74937-7) 39.3 fL 38.5-51.6 RDW-CV (test code = 788-0) 12.5 % 12.1-15.4 PLT (test code = 777-3) See_Comment H [Automated messa ge] The system which generated this result transmitted reference range: 150 - 328 10*3/?L. The reference range was not used to interpret this result as normal/abnormal. MPV (test code = 01999-6) 9.3 fL 9.8-13.0 L NRBC/100 WBC (test code = 3285916946) See_Comment [Automated me ssage] The system which generated this result transmitted reference range: 0.0 - 10.0 /100 WBCs. The reference range was not used to interpret this result as normal/abnormal. NRBC x10^3 (test code = 9560488834) <0.01 See_Comment [Automated messa ge] The system which generated this result transmitted reference range: 10*3/?L. The reference range was not used to interpret this result as normal/abnormal. GRAN MAT (NEUT) % (test code = 770-8) 60.5 % IMM GRAN % (test code = 4664000197) 0.30 % LYMPH % (test code = 736-9) 26.7 % MONO % (test code = 5905-5) 8.3 % EOS % (test code = 713-8) 3.4 % BASO % (test code = 706-2) 0.8 % GRAN MAT x10^3(ANC) (test code = 7155720298) 7.17 10*3/uL 1.99-6.95 H IMM GRAN x10^3 (test code = 4508559126) 0.03 10*3/uL 0.00-0.06 LYMPH x10^3 (test code = 731-0) 3.16 10*3/uL 1.09-3.23 MONO x10^3 (test code = 742-7) 0.98 10*3/uL 0.36-1.02 EOS x10^3 (test code = 711-2) 0.40 10*3/uL 0.06-0.53 BASO x10^3 (test code = 704-7) 0.10 10*3/uL 0.01-0.09 H Lab Interpretation (test code = 92905-3) Abnormal [facility] METABOLIC PANEL (NA, K, CL, CO2, GLUCOSE, BUN, CREATININE, CA)2021-08-19 10:52:12* Test Item Value Reference Range Interpretation Comme nts NA (test code = 7621667003) 136 mmol/L 135-145 K (test code = 7811370166) 3.8 mmol/L 3.5-5.0 CL (test code = 2601988746) 100 mmol/L 98-108 CO2 TOTAL (test code = 0786888090) 29 mmol/L 23-31 AGAP (test code = 5118148356) 2-16 BUN (test code = 3117712097) 32 mg/dL 7-23 H GLUCOSE (test code = 2539864120) 115 mg/dL 70-110 H CREATININE (test code = 5156672533) 1.67 mg/dL 0.60-1.25 H CALCIUM (test code = 9923082942) 9.1 mg/dL 8.6-10.6 eGFR (test code = 6071161594) mL/min/1.73m2 EBEN (test code = EBEN) Association [...] imaging tests). Lab Interpretation (test code = 19370-3) [facility]16 10:52:12* Test Item Value Reference Range Interpretation Comme nts MAGNESIUM (test code = 9386291120) 1.9 mg/dL 1.7-2.4 Lab Interpretation (test cod e = 74565-8) [facility] (NA, K, CL, CO2, GLUCOSE, BUN, CREATININE, CA)2021-08-18 21:19:06* Test Item Value Reference Range Interpretation Comme nts NA (test code = 7751703900) 135 mmol/L 135-145 K (test code = 8175884061) 3.9 mmol/L 3.5-5.0 CL (test code = 0677807315) 98 mmol/L 98-108 CO2 TOTAL (test code = 7023585899) 30 mmol/L 23-31 AGAP (test code = 6357300755) 2-16 BUN (test code = 5038344825) 29 mg/dL 7-23 H GLUCOSE (test code = 4965826165) 121 mg/dL 70-110 H CREATININE (test code = 9744724105) 1.58 mg/dL 0.60-1.25 H CALCIUM (test code = 9218619893) 8.9 mg/dL 8.6-10.6 eGFR (test code = 5335715185) mL/min/1.73m2 EBEN (test code = EBEN) Association [...] imaging tests). Lab Interpretation (test code = 05133-1) Abnormal [facility] METABOLIC PANEL (NA, K, CL, CO2, GLUCOSE, BUN, CREATININE, CA)2021-08-18 10:04:44* Test Item Value Reference Range Interpretation Comme nts NA (test code = 8485937661) 135 mmol/L 135-145 K (test code = 7829131546) 4.0 mmol/L 3.5-5.0 Slight hemolysis CL (test code = 2984418521) 101 mmol/L 98-108 CO2 TOTAL (test code = 3511296637) 29 mmol/L 23-31 AGAP (test code = 6699790134) 2-16 BUN (test code = 6052137826) 32 mg/dL 7-23 H Slight hemolysis GLUCOSE (test code = 9210343727) 114 mg/dL 70-110 H CREATININE (test code = 7578100947) 1.54 mg/dL 0.60-1.25 H CALCIUM (test code = 0977302844) 8.8 mg/dL 8.6-10.6 eGFR (test code = 7232541519) mL/min/1.73m2 EBEN (test code = EBEN) Association [...] imaging tests). Lab Interpretation (test code = 96418-2) [facility]15 10:04:44* Test Item Value Reference Range Interpretation Comme nts MAGNESIUM (test code = 0571530322) 2.2 mg/dL 1.7-2.4 Lab Interpretation (test cod e = 14717-1) Normal [facility] [id number] 09:24:38* Test Item Value Reference Range Interpretation Comme nts WBC (test code = 6690-2) See_Comment [Automated [employer]] The system which generated this result transmitted reference range: 4.20 - 10.70 10*3/?L. The reference range was not used to interpret this result as normal/abnormal. RBC (test code = 789-8) See_Comment [Automated [employer]] The system which generated this result transmitted [...] 33.3 g/dL 31.2-35.0 RDW-SD (test code = 38876-3) 39.1 fL 38.5-51.6 RDW-CV (test code = 788-0) 12.6 % 12.1-15.4 PLT (test code = 777-3) See_Comment H [Automated Fl[employer] ge] The system which generated this result transmitted reference range: 150 - 328 10*3/?L. The reference range was not used to interpret this result as normal/abnormal. MPV (test code = 52843-6) 9.5 fL 9.8-13.0 L NRBC/100 WBC (test code = 3943049252) See_Comment [Automated me ssage] The system which generated this result transmitted reference range: 0.0 - 10.0 /100 WBCs. The reference range was not used to interpret this result as normal/abnormal. NRBC x10^3 (test code = 1388653767) <0.01 See_Comment [Automated messa ge] The system which generated this result transmitted reference range: 10*3/?L. The reference range was not used to interpret this result as normal/abnormal. GRAN MAT (NEUT) % (test code = 770-8) 65.3 % IMM GRAN % (test code = 4781149597) 0.20 % LYMPH % (test code = 736-9) 23.3 % MONO % (test code = 5905-5) 7.0 % EOS % (test code = 713-8) 3.5 % BASO % (test code = 706-2) 0.7 % GRAN MAT x10^3(ANC) (test code = 3117862750) 6.63 10*3/uL 1.99-6.95 IMM GRAN x10^3 (test code = 0373830201) <0.03 0.00-0.06 LYMPH x10^3 (test code = 731-0) 2.36 10*3/uL 1.09-3.23 MONO x10^3 (test code = 742-7) 0.71 10*3/uL 0.36-1.02 EOS x10^3 (test code = 711-2) 0.35 10*3/uL 0.06-0.53 BASO x10^3 (test code = 704-7) 0.07 10*3/uL 0.01-0.09 Lab Interpretation (test code = 72289-4) [facility]normal [facility]A1C)2021-08-18 02:37:07* Test Item Value Reference Range Interpretation Comme nts HGB A1C (test code = 4548-4) 5.8 % 4.0-5.7 H EBEN (test code = EBEN) Reference RangesNormal: <5.7%Prediabetes: 5.7 - 6.4%Diabetes: > 6.5% Lab Interpretation (test code = 87811-7) Abnormal [facility] [id number] 01:03:37* Test Item Value Reference Range Interpretation Comments TROPONIN I (test code = 0339914491) 0.101 ng/mL See_Comment H [Automated message] The [...] of biotin. Lab Interpretation (test code = 92074-8) Abnormal [facility] (TTE)2021-08-17 22:14:20* Test Item Value Reference Range Interpretation Comme nts Ao root annulus (test code = 4115474677) 3.3 cm Ao root diam (test code = 6774544142) 3.30 cm Aortic root (test code = 2854313625) 3.3 cm LA size (test code = 8510661956) 3.7 cm LVOT diameter (test code = 1264590149) 2.00 cm LVIDD (test code = 1285843415) 5.90 cm IVS (test code = 8514729175) 1.26 cm Interventricular Septum Diastolic Thickness by 2D (test code = 7554389) 1.26 cm LVPWD (test code = 5394631746) 1.19 cm PW (test code = 9653332813) 1.19 cm 0.6-1.1 EF(Teich) (test code = 7714710106) 46.60 % LVIDS (test code = 1864093608) 4.50 cm FS (test code = 3626054413) 24 % EF - 2D (test code = 09064051) 46.60 % LAV(MOD-sp4) (test code = 1075058072) 65.30 mL MV Peak E Narciso (test code = 9609814327) 126.4 cm/s E wave decelartion time (test code = 3910463364) 0.14 s MV Prop V (test code = 1969092236) 35.00 cm/s LVOT stroke volume (test code = 1170080782) 45.10 cm3 LVOT peak narciso (test code = 2801278462) 90.0 cm/s LVOT mn grad (test code = 7349289058) mmHg AV LVOT peak gradient (test code = 0434426252) mmHg LVOT peak VTI (test code = 4288041181) 14.4 cm LV V1 mean (test code = 4383332026) 63.00 cm/s Aortic valve mean velocity (test code = 4460107782) 76.8 cm/s Ao peak narciso (test code = 2692324015) 125.5 cm/s Ao VTI (test code = 5259177723) 17.0 cm AV area by cont VTI (test code = 1924726539) 2.6 cm2 AV area peak narciso (test code = 4278908349) 2.2 cm2 Ao max PG (test code = 0408309785) 6.30 mm[Hg] AV peak gradient (test code = 8139675266) mmHg AV valve area (test code = 7112719868) 2.60 cm2 AV mean gradient (test code = 6837194432) mmHg TR Peak Narciso (test code = 3509828142) 119.4 cm/s Triscuspid Valve Regurgitation Peak Gradient (test code = 5855896231) mmHg Tapse (test code = 2652062479) 1.95 cm LA volume (BP) (test code = 5271582108) 73.5 mL LAV(MOD-sp2) (test code = 2677500389) 74.00 mL LA Volume Index (BP) (test code = 4593585352) 32.5 mL/m2 LV Diastolic Volume (BP) (test code = 7575623561) 232.2 mL EF(MOD-bp) (test code = 9279262346) 33.10 % LV Systolic Volume (BP) (test code = 6511787949) 155.2 mL SV(MOD-bp) (test code = 5372744889) 76.90 mL EF (test code = 8186054544) 33 % Left Ventricular Stroke Volume by 2-D Biplane-MOD (test code = 8440432) 76.9 mL Radiology Study observation (narrative) (test code = 10222-7) EBEN (test code = EBEN) ?Left?Ventricle: Left [...] (104.3 kg) 2.3 sq meters 183/126 82 [facility]85924[facility] (ALB,T.PRO,BILI T,BU/BC,ALT,AST,ALK PHOS)2021-08-17 17:59:20* Test Item Value Reference Range Interpretation Comme nts TOTAL BILI (test code = 3506367181) 0.4 mg/dL 0.1-1.1 BILI UNCON (test code = 5796262984) 0.4 mg/dL 0.1-1.1 BILI CONJ (test code = 0282194727) 0.0 mg/dL 0.0-0.3 T PROTEIN (test code = 5653261431) 6.4 g/dL 6.3-8.2 ALBUMIN (test code = 8643139621) 3.7 g/dL 3.5-5.0 ALK PHOS (test code = 5402656025) 64 U/L 34-122 ALTv (test code = 1742-6) 39 U/L 5-50 AST(SGOT) (test code = 6860956940) 30 U/L 13-40 Lab Interpretation (test cod e = 29514-3) Normal [facility] [id number] 17:21:19* Test Item Value Reference Range Interpretation Comme nts FERRITIN (test code = 5999762838) 29.7 ng/mL 18.0-464.0 EBEN (test code = EBEN) Biotin has been reported to cause a negative bias, interpret results relative to patient's use of biotin. Lab Interpretation (test code = 41211-2) Normal [facility] ST[facility]ATING [id number] 17:14:24 * Test Item Value Reference Range Interpretation Comme nts TSH (test code = 9327046547) See_Comment [Automated [employer] ge] The system which generated this result transmitted reference range: 0.45 - 4.70 mIU/L. The reference range was not used to interpret this result as normal/abnormal. Lab Interpretation (test code = 57080-4) Normal [facility]MINAL [id number] 16:55:55* Test Item Value Reference Range Interpretation Comme nts NT-proBNP (test code = 0463461068) 5070 pg/mL See_Comment H [Automated message] The system which generated this result transmitted reference range: <=125. The reference range was not used to interpret this result as normal/abnormal. EBEN (test code = EBEN) Biotin has been reported to cause a negative bias, interpret results relative to patient's use of biotin. Lab Interpretation (test code = 43032-1) Abnormal [facility] [id number] 16:55:55* Test Item Value Reference Range Interpretation Comments TROPONIN I (test code = 5931157453) 0.117 ng/mL See_Comment H [Automated message] The [...] of biotin. Lab Interpretation (test code = 36686-9) Abnormal [facility] HospitalIRON [id number] 16:52:53* Test Item Value Reference Range Interpretation Comme nts IRON (test code = 0598394175) 51 ug/dL 50-160 TIBC (test code = 9537776736) 298 ug/dL 250-410 % FE SAT (test code = 5059170906) 17 % 20-50 L Lab Interpretation (test cod e = 07882-1) Abnormal [facility]2022-04-14 16:41:35* Test Item Value Reference Range Interpretation Comme nts MAGNESIUM (test code = 0840166860) 1.6 mg/dL 1.7-2.4 L Lab Interpretation (test cod e = 57441-5) Abnormal [facility]2022-04-14 16:41:35* Test Item Value Reference Range Interpretation Comme nts PHOSPHORUS (test code = 5054746946) 4.0 mg/dL 2.5-5.0 Lab Interpretation (test cod e = 36206-8) Normal [facility] METABOLIC PANEL (NA, K, CL, CO2, GLUCOSE, BUN, CREATININE, CA)2021-08-17 16:41:35* Test Item Value Reference Range Interpretation Comme nts NA (test code = 8224782625) 134 mmol/L 135-145 L K (test code = 0837041228) 3.6 mmol/L 3.5-5.0 CL (test code = 5083669872) 99 mmol/L 98-108 CO2 TOTAL (test code = 4699108486) 32 mmol/L 23-31 H AGAP (test code = 0778918177) 2-16 BUN (test code = 0668243971) 24 mg/dL 7-23 H GLUCOSE (test code = 7687275369) 111 mg/dL 70-110 H CREATININE (test code = 7315137883) 1.60 mg/dL 0.60-1.25 H CALCIUM (test code = 3757837079) 8.8 mg/dL 8.6-10.6 eGFR (test code = 4654528747) mL/min/1.73m2 EBEN (test code = EBEN) Association [...] imaging tests). Lab Interpretation (test code = 93733-7) Abnormal [facility] WITH [id number] 16:00:05* Test Item Value Reference Range Interpretation Comme nts WBC (test code = 6690-2) See_Comment [Automated [employer]] The system which generated this result transmitted reference range: 4.20 - 10.70 10*3/?L. The reference range was not used to interpret this result as normal/abnormal. RBC (test code = 789-8) See_Comment L [Automated Dctio] The system which generated this result transmitted [...] 33.7 g/dL 31.2-35.0 RDW-SD (test code = 17935-9) 39.5 fL 38.5-51.6 RDW-CV (test code = 788-0) 12.6 % 12.1-15.4 PLT (test code = 777-3) See_Comment H [Automated [employer] ge] The system which generated this result transmitted reference range: 150 - 328 10*3/?L. The reference range was not used to interpret this result as normal/abnormal. MPV (test code = 77607-7) 9.4 fL 9.8-13.0 L NRBC/100 WBC (test code = 3422340133) See_Comment [Automated [employer] ssage] The system which generated this result transmitted reference range: 0.0 - 10.0 /100 WBCs. The reference range was not used to interpret this result as normal/abnormal. NRBC x10^3 (test code = 8136770619) <0.01 See_Comment [Automated [employer] ge] The system which generated this result transmitted reference range: 10*3/?L. The reference range was not used to interpret this result as normal/abnormal. GRAN MAT (NEUT) % (test code = 770-8) 65.6 % IMM GRAN % (test code = 2652507020) 0.20 % LYMPH % (test code = 736-9) 23.8 % MONO % (test code = 5905-5) 6.7 % EOS % (test code = 713-8) 3.2 % BASO % (test code = 706-2) 0.5 % GRAN MAT x10^3(ANC) (test code = 6140602933) 6.58 10*3/uL 1.99-6.95 IMM GRAN x10^3 (test code = 5594019226) <0.03 0.00-0.06 LYMPH x10^3 (test code = 731-0) 2.39 10*3/uL 1.09-3.23 MONO x10^3 (test code = 742-7) 0.67 10*3/uL 0.36-1.02 EOS x10^3 (test code = 711-2) 0.32 10*3/uL 0.06-0.53 BASO x10^3 (test code = 704-7) 0.05 10*3/uL 0.01-0.09 Lab Interpretation (test code = 17727-4) Abnormal [facility]"
--- NOTE | 2023-05-28 09:21 | EDPHYS ---
Physician Documentation [facility] Name: Wagner Padron Age: 38 yrs Sex: Male : 1985 Arrival Date: 05/28/2023 Time: 08:54 Bed IW1 Private MD: ED Physician Denilson Traore HPI: 05/28 09:23 This 38 yrs old Black Male presents to ER via Ambulatory with complaints of Foot Pain. ec2 09:23 Patient with history of gout arrives today for left foot pain. States that he had been ec2 having some pain since last night. Reports that he is increased his alcohol consumption recently and thinks that this flight was stopped. Patient reports no fevers or chills, no nausea or vomiting. States that he has colchicine at home that he has taken.. Historical: - Allergies: 09:16 Nitroglycerin; iw - PMHx: 09:16 CHF; Gout; High Cholesterol; Hypercholesterolemia; Hypertension; iw - PSHx: 09:16 Leg sx; right femur surgery; iw - Immunization history:: Adult Immunizations up to date. - Social history:: Smoking status: Patient denies any tobacco usage or history of. ROS: 09:23 Constitutional: as per hpi ec2 Exam: 09:23 Constitutional: GEN: NAD Head: atraumatic Eyes: EOMI Ears: External ears are ec2 normal. CV: regular rate LUNGS: no respiratory distress ABD: non-distended SKIN: Scant erythema noted to the great toe of the left foot, no significant swelling, no evidence of trauma. MSK: no evidence of trauma NEURO: moves all extremities equally Vital Signs: 09:17 BP 171 / 107; Pulse 77; Resp 17; Temp 97.7; Pulse Ox 100% ; Weight 108.86 kg; Height 6 iw ft. 0 in. ; 09:17 Body Mass Index 32.55 (108.86 kg, 182.88 cm) iw MDM: 09:15 Patient medically screened. ec2 09:23 Data reviewed: vital signs, nurses notes. ED course: Patient arrives today for ec2 evaluation of pain to the left great toe. Examination remarkable for findings as above. Clinical presentation consistent with gout, low suspicion for septic joint, low suspicion for cellulitis. Will discharge home. Return precautions given.. Administered Medications: :28 Drug: Dexamethasone IM 10 mg IM once Route: IM; Site: left gluteus; ll1 09:36 Follow up: Response: No adverse reaction ll1 09:31 Drug: Ketorolac IM 30 mg IM once Route: IM; Site: right gluteus; ll1 09:36 Follow up: Response: No adverse reaction ll1 Disposition Summary: 05/28/23 09:20 Discharge Ordered Notes: Location: Home ec2 Condition: Stable ec2 Diagnosis - Gout, unspecified ec2 Followup: ec2 - With: Private Physician - When: 1 week - Reason: Continuance of care Discharge Instructions: - Discharge Summary Sheet iw - Gout ec2 Forms: - Work release form iw - Medication Reconciliation Form ec2 - Thank You Letter ec2 - Antibiotic Education ec2 - Prescription Opioid Use ec2 - Patient Portal Instructions ec2 - Leadership Thank You Letter ec2 Prescriptions: - acetaminophen-codeine 300-15 mg Oral tablet - take 1 tablet ORAL route every 8 hours; 10 tablet; Refills: 0, Product ec2 Selection Permitted - indomethacin 50 mg Oral capsule - take 1 capsule ORAL route 3 times per day administer with food or milk; 15 ec2 capsule; Refills: 0, Product Selection Permitted Signatures: Maxine Cooper RN RN iw Tori Xiong RN RN ll1 Denilson Traore MD MD ec2 Corrections: (The following items were deleted from the chart) :24 09:20 Patient medically screened. ec2 ec2
--- NOTE | 2023-05-28 09:21 | ER ---
Nurse's Notes [facility] Name: Wagner Padron Age: 38 yrs Sex: Male : 1985 Arrival Date: 05/28/2023 Time: 08:54 Bed IW1 Private MD: Diagnosis: Gout, unspecified Presentation: 05/28 09:17 Chief complaint: Patient states: L foot pain for 2 days. Coronavirus screen: Client iw denies travel out of the [place] in the last 14 days. At this time, the client does not indicate any symptoms associated with coronavirus-19. Ebola Screen: Patient denies travel to an Ebola-affected area in the 21 days before illness onset. Initial Sepsis Screen: Does the patient meet any 2 criteria? No. Patient's initial sepsis screen is negative. Does the patient have a suspected source of infection? Yes: Bone or joint infection. Risk Assessment: Do you want to hurt yourself or someone else? Patient reports no desire to harm self or others. Onset of symptoms was May 27, 2023. 09:17 Method Of Arrival: Ambulatory iw 09:17 Acuity: HERMELINDA 4 iw Triage Assessment: 09:18 General: Appears in no apparent distress. Behavior is calm, cooperative, appropriate iw for age. Pain: Complains of pain in left foot Quality of pain is described as aching. Musculoskeletal: Circulation, motion, and sensation intact. Capillary refill < 3 seconds. Historical: - Allergies: 09:16 Nitroglycerin; iw - PMHx: 09:16 CHF; Gout; High Cholesterol; Hypercholesterolemia; Hypertension; iw - PSHx: 09:16 Leg sx; right femur surgery; iw - Immunization history:: Adult Immunizations up to date. - Social history:: Smoking status: Patient denies any tobacco usage or history of. Screenin:36 [facility] ED Fall Risk Assessment (Adult) Score/Fall Risk Level 0 - 2 = Low Risk ll1 Oriented to surroundings, Maintained a safe environment, Educated pt \T\ family on fall prevention, incl call for assistance when getting out of bed, Hourly rounding (assess needs \T\ fall precautionary measures) done. Abuse screen: Denies threats or abuse. Nutritional screening: No deficits noted. Tuberculosis screening: No symptoms or risk factors identified. Assessment: 09:36 Reassessment: No changes from previously documented assessment. Patient and/or family ll1 updated on plan of care and expected duration. Pain level reassessed. Patient is alert, oriented x 3, equal unlabored respirations, skin warm/dry/pink. Vital Signs: 09:17 BP 171 / 107; Pulse 77; Resp 17; Temp 97.7; Pulse Ox 100% ; Weight 108.86 kg; Height 6 iw ft. 0 in. ; 09:17 Body Mass Index 32.55 (108.86 kg, 182.88 cm) iw ED Course: 08:58 Patient arrived in ED. ts1 09:03 Denilson Traore MD is Attending Physician. ec2 09:16 Arm band placed on. iw 09:18 Triage completed. iw 09:25 Tori Xiong RN is Primary Nurse. ll1 09:36 No provider procedures requiring assistance completed. Patient did not have IV access ll1 during this emergency room visit. 09:37 Patient has correct armband on for positive identification. Bed in low position. Call ll1 light in reach. Provided Education on: n/a. Administered Medications: 09:28 Drug: Dexamethasone IM 10 mg IM once Route: IM; Site: left gluteus; ll1 09:36 Follow up: Response: No adverse reaction ll1 09:31 Drug: Ketorolac IM 30 mg IM once Route: IM; Site: right gluteus; ll1 09:36 Follow up: Response: No adverse reaction ll1 Medication: 09:37 VIS not applicable for this client. ll1 Outcome: 09:20 Discharge ordered by MD. ec2 09:36 Discharged to home ambulatory, ll1 09:36 Condition: stable 09:36 Discharge instructions given to patient, Instructed on discharge instructions, follow up and referral plans. no drinking with medication, no driving heavy equipment, medication usage, Demonstrated understanding of instructions, follow-up care, medications, Prescriptions given X 2, 09:37 Patient left the ED. ll1 Signatures: Maxine Cooper RN RN iw Tori Xiong RN RN ll1 Poly [place] Real PAS PAS ts1 Denilson Traore MD MD ec2 Corrections: (The following items were deleted from the chart) 09:18 09:17 BP 171 / 107; Pulse 77bpm; Resp 17bpm; Pulse Ox 100%; Temp 97.7F; iw iw 09:36 09:35 Dexamethasone IM 10 mg IM in left gluteus ll1 ll1
[2023-05-28 10:50] VITALS: BP 171/107; TEMP 97.7; O2SAT 100
== END ==
LOC: ER 08:54
DX: M10.9 Gout, unspecified (principal)
CPT/HCPCS: 96372; 99284; J1100

== ENCOUNTER → 2023-06-11 | Emergency (ER) | payer OTHER ==
[~2023-06-11] MED LIST changes: +CYCLOBENZAPRINE 10 MG TAB ONE; +HYDROCODONE/APAP 10/325 TAB ONE; +ONDANSETRON 4 MG (ODT) TAB ONE
--- OUTSIDE RECORDS SUMMARY | 2023-06-11 20:33 | XMS REPORT | Continuity of Care Document ---
Author Name Unknown Address [address] [facility] [address] [place] [address] [facility] thconnect Address [address] [facility] [address] [place] [address] Care Team Providers Care Roaster Operator Name Role Phone Cristy FREDERICK, Marshall Dean Primary Care Physician Cipriano FREDERICK, Basim Sanz Attending Clinician + Tameka NOVOA Attending Clinician Unavailable Tameka Garcia Attending Clinician [phone] Doctor Unassigned, Spivey Attending Clinician U jose e Neumann RN, Sherrell Attending Clinician Unavailable DIMITRIOS ABEL Attending Clinician UnavailDimitrios Kearney MD Attending Clinician [phone] DIMITRIOS ABEL Admitting Clinician Dimitrios Kasper MD Admitting Clinician [phone] Payers Payer Name Policy Type Policy Number Effective Date Expirati on Date Source Problems Condition Name Condition Details Condition Category Status Onset Date Resolution Date Last Treatment Date Treating Clinician Comments Source SOB (shortness of breath) SOB (shortness of breath) Disease Active -14 00:00: 00 [facility] Obesity (BMI 30-39.9) Obesity (BMI 30-39.9) Disease Active 11-23 00:00: 00 [facility] Allergies, Adverse Reactions, Alerts Allergy Name Allergy Type Status Severity Reaction(s) Onset Date Inactive Date Treating Clinician Comments Source MORPHINE DRUG INGREDI Active Unknown-Cmnt 12-06 00:00: 00 [facility] Morphine Propensi ty to adverse reaction s Active Unknown - See comments 12-06 00:00: 00 Patient does not know reaction [facility] NO KNOWN ALLERGIE S Drug Class Active [facility] Social History Social Habit Start Date Stop Date Quantity Comments Source History SDOH Alcohol Std Drinks [facility] History SDOH Alcohol Binge [facility] History SDOH Alcohol Frequency [facility] Exposure to SARS-CoV-2 (event) 2021-11-26 00:00:00 2021-12-06 12:55:00 Not sure [facility] Alcohol intake 2021-12-06 00:00:00 2021-12-06 00:00:00 Current drinker of alcohol (finding) [facility] Alcohol Comment 2016-11-22 00:00:00 2016-11-22 00:00:00 Daily [facility] Tobacco use and exposure 2016-11-22 00:00:00 2016-11-22 00:00:00 Smokeless tobacco non-user [facility] Sex Assigned At 1985 00:00:00 1985 00:00:00 [facility] Smoking Status Start Date Stop Date Source Never smoked tobacco [facility] Medications Ordered Medication Name Filled Medication Name Start Date Stop Date Current Medication? Ordering Clinician Indication Dosage Frequency Signature (SIG) Comments Components Source lisinopriL (PRINIVIL,Z ESTRIL) tablet 20 mg 12-07 14:00: 00 Yes 20mg 20 mg, Oral, DAILY, First dose on Sat12/07/21 at 0900, Until Discontinu ed, Routine [facility] HYDROcodone -acetaminop hen (NORCO) 10-325 mg tablet 1 tablet 12-06 17:15: 00 12-06 16:12 :00 No 1{tbl} 1 tablet, Oral, ONCE, 1 dose, On Sat12/06/21 at 1215, Routine [facility] carvediloL (COREG) tablet 25 mg 12-06 17:15: 00 12-06 16:12 :00 No 25mg 25 mg, Oral, ONCE, 1 dose, On Sat12/06/21 at 1215, Routine [facility] methylpredn isolone sod succ (SOLU-MEDRO L) injection 125 mg 12-06 16:45: 00 12-06 16:09 :00 No 125mg 125 mg, Intramuscu lar, ONCE, 1 dose, On Sat12/06/21 at 1145, REGINA [facility] acetaminoph en-codeine 300-30 mg tablet 12-06 00:00: 00 Yes [id number] 1{tbl} Take 1 tablet by mouth every 4 (four) hours as needed for Pain (scale 4-6). Indication s: acute pain [facility] predniSONE 20 mg tablet 12-06 00:00: 00 Yes [id number] 1 PO BID x 4 days [facility] acetaminoph en-codeine 300-30 mg tablet 12-06 00:00: 00 Yes [id number] 1{tbl} Take 1 tablet by mouth every 4 (four) hours as needed for Pain (scale 4-6). Indication s: acute pain [facility] predniSONE 20 mg tablet 12-06 00:00: 00 Yes [id number] 1 PO BID x 4 days [facility] predniSONE 20 mg tablet 12-06 00:00: 00 12-06 00:00 :00 No [id number] 1 PO BID x 4 days [facility] aspirin 81 mg chewable tablet 09-14 00:00: 00 Yes [id number] 81mg Take 1 tablet by mouth daily. [facility] atorvastati n 40 mg tablet 09-14 00:00: 00 Yes [id number] 40mg Take 1 tablet by mouth at bedtime. [facility] carvediloL 25 mg tablet 09-14 00:00: 00 Yes [id number] 37.5mg Take 1.5 tablets by mouth 2 (two) times daily with meals. [facility] furosemide 40 mg tablet 2021-0 09-14 00:00: 00 Yes [id number] 40mg Take 1 tablet by mouth every morning and evening. [facility] lisinopriL 10 mg tablet 2021-0 09-14 00:00: 00 Yes [id number] 30mg Take 3 tablets by mouth daily. [facility] spironolact one 25 mg tablet 0 09-14 00:00: 00 Yes [id number] 25mg Take 1 tablet by mouth daily. [facility] aspirin 81 mg chewable tablet 0 09-14 00:00: 00 Yes [id number] 81mg Take 1 tablet by mouth daily. [facility] atorvastati n 40 mg tablet 2021-0 09-14 00:00: 00 Yes [id number] 40mg Take 1 tablet by mouth at bedtime. [facility] carvediloL 25 mg tablet 2021-0 09-14 00:00: 00 Yes [id number] 37.5mg Take 1.5 tablets by mouth 2 (two) times daily with meals. [facility] furosemide 40 mg tablet 0 09-14 00:00: 00 Yes [id number] 40mg Take 1 tablet by mouth every morning and evening. [facility] lisinopriL 10 mg tablet 2021-0 09-14 00:00: 00 Yes [id number] 30mg Take 3 tablets by mouth daily. [facility] spironolact one 25 mg tablet 0 09-14 00:00: 00 Yes [id number] 25mg Take 1 tablet by mouth daily. [facility] aspirin 81 mg chewable tablet 2021-0 09-14 00:00: 00 Yes [id number] 81mg Take 1 tablet by mouth daily. [facility] atorvastati n 40 mg tablet 2021-0 09-14 00:00: 00 Yes [id number] 40mg Take 1 tablet by mouth at bedtime. [facility] carvediloL 25 mg tablet 2021-0 09-14 00:00: 00 Yes [id number] 37.5mg Take 1.5 tablets by mouth 2 (two) times daily with meals. [facility] furosemide 40 mg tablet 09-14 00:00: 00 Yes [id number] 40mg Take 1 tablet by mouth every morning and evening. [facility] lisinopriL 10 mg tablet 09-14 00:00: 00 Yes [id number] 30mg Take 3 tablets by mouth daily. [facility] spironolact one 25 mg tablet 09-14 00:00: 00 Yes [id number] 25mg Take 1 tablet by mouth daily. [facility] aspirin 81 mg chewable tablet 09-14 00:00: 00 Yes [id number] 81mg Take 1 tablet by mouth daily. [facility] atorvastati n 40 mg tablet 09-14 00:00: 00 Yes [id number] 40mg Take 1 tablet by mouth at bedtime. [facility] carvediloL 25 mg tablet 09-14 00:00: 00 Yes [id number] 37.5mg Take 1.5 tablets by mouth 2 (two) times daily with meals. [facility] furosemide 40 mg tablet 09-14 00:00: 00 Yes [id number] 40mg Take 1 tablet by mouth every morning and evening. [facility] lisinopriL 10 mg tablet 09-14 00:00: 00 Yes [id number] 30mg Take 3 tablets by mouth daily. [facility] spironolact one 25 mg tablet 09-14 00:00: 00 Yes [id number] 25mg Take 1 tablet by mouth daily. [facility] aspirin 81 mg chewable tablet 08-22 00:00: 00 02-19 04:59 :00 No [id number] 81mg Take 1 tablet by mouth daily for 180 days. [facility] lisinopriL 10 mg tablet 08-22 00:00: 00 02-19 04:59 :00 No [id number] 30mg Take 3 tablets by mouth daily for 180 days. [facility] spironolact one 25 mg tablet 2-0 4-19 00:00: 00 02-19 04:59 :00 No [id number] 25mg Take 1 tablet by mouth daily for 180 days. [facility] aspirin 81 mg chewable tablet 2-0 4-19 00:00: 00 02-19 04:59 :00 No [id number] 81mg Take 1 tablet by mouth daily for 180 days. [facility] lisinopriL 10 mg tablet 2-0 4-19 00:00: 00 02-19 04:59 :00 No [id number] 30mg Take 3 tablets by mouth daily for 180 days. [facility] spironolact one 25 mg tablet 2021-0 4-19 00:00: 00 02-19 04:59 :00 No [id number] 25mg Take 1 tablet by mouth daily for 180 days. [facility] aspirin 81 mg chewable tablet 2021-0 4-19 00:00: 00 02-19 04:59 :00 No [id number] 81mg Take 1 tablet by mouth daily for 180 days. [facility] lisinopriL 10 mg tablet 2021-0 4-19 00:00: 00 02-19 04:59 :00 No [id number] 30mg Take 3 tablets by mouth daily for 180 days. [facility] spironolact one 25 mg tablet 2-0 4-19 00:00: 00 02-19 04:59 :00 No [id number] 25mg Take 1 tablet by mouth daily for 180 days. [facility] aspirin 81 mg chewable tablet 2-0 4-19 00:00: 00 02-19 04:59 :00 No [id number] 81mg Take 1 tablet by mouth daily for 180 days. [facility] lisinopriL 10 mg tablet 2-0 4-19 00:00: 00 02-19 04:59 :00 No [id number] 30mg Take 3 tablets by mouth daily for 180 days. [facility] spironolact one 25 mg tablet 2-0 4-19 00:00: 00 02-19 04:59 :00 No [id number] 25mg Take 1 tablet by mouth daily for 180 days. [facility] aspirin 81 mg chewable tablet 2-0 4-19 00:00: 00 02-19 04:59 :00 No [id number] 81mg Take 1 tablet by mouth daily for 180 days. [facility] lisinopriL 10 mg tablet 2-0 4-19 00:00: 00 02-19 04:59 :00 No [id number] 30mg Take 3 tablets by mouth daily for 180 days. [facility] spironolact one 25 mg tablet 2021-0 4-19 00:00: 00 02-19 04:59 :00 No [id number] 25mg Take 1 tablet by mouth daily for 180 days. [facility] aspirin 81 mg chewable tablet 2021-0 4-19 00:00: 00 02-19 04:59 :00 No [id number] 81mg Take 1 tablet by mouth daily for 180 days. [facility] lisinopriL 10 mg tablet 2021-0 4-19 00:00: 00 02-19 04:59 :00 No [id number] 30mg Take 3 tablets by mouth daily for 180 days. [facility] spironolact one 25 mg tablet 2021-0 4-19 00:00: 00 02-19 04:59 :00 No [id number] 25mg Take 1 tablet by mouth daily for 180 days. [facility] aspirin 81 mg chewable tablet 2-0 4-19 00:00: 00 09-14 00:00 :00 No [id number] 81mg Take 1 tablet by mouth daily for 180 days. [facility] lisinopriL 10 mg tablet 2-0 4-19 00:00: 00 09-14 00:00 :00 No [id number] 30mg Take 3 tablets by mouth daily for 180 days. [facility] spironolact one 25 mg tablet 2-0 4-19 00:00: 00 09-14 00:00 :00 No [id number] 25mg Take 1 tablet by mouth daily for 180 days. [facility] carvediloL (COREG) tablet 37.5 mg 08-21 22:00: 00 Yes 37.5mg 37.5 mg, Oral, BID MEALS, First dose (after last modificati on) on Sat08/21/21 at 1700, Until Discontinu ed, Routine [facility] lisinopriL (PRINIVIL,Z ESTRIL) tablet 30 mg 08-21 14:00: 00 Yes 30mg 30 mg, Oral, DAILY, First dose (after last modificati on) on Sat08/21/21 at 0900, Until Discontinu ed, Routine [facility] magnesium oxide (MAG-OX 400) tablet 400 mg 08-21 13:45: 00 08-21 13:20 :00 No 400mg 400 mg, Oral, ONCE, 1 dose, On Sat08/21/21 at 0845, Routine [facility] amLODIPine 10 mg tablet 08-21 11:33: 41 08-21 00:00 :00 No 10mg Take 10 mg by mouth daily. [facility] hydroCHLORO thiazide 25 mg tablet 08-21 11:33: 41 08-21 00:00 :00 No 25mg Take 25 mg by mouth daily. [facility] ibuprofen 800 mg tablet 08-21 11:33: 41 08-21 00:00 :00 No 800mg Take 800 mg by mouth 2 (two) times daily. [facility] hydrALAZINE (APRESOLINE ) tablet 10 mg 08-21 07:00: 00 08-21 06:05 :00 No 10mg 10 mg, Oral, ONCE, 1 dose, On Sat08/21/21 at 0200, Routine [facility] atorvastati n 40 mg tablet 08-21 00:00: 00 02-18 04:59 :00 No [id number] 40mg Take 1 tablet by mouth at bedtime for 180 days. [facility] furosemide 40 mg tablet 2022-0 4-18 00:00: 00 02-18 04:59 :00 No [id number] 40mg Take 1 tablet by mouth every morning and evening for 180 days. [facility] carvediloL 25 mg tablet 2-0 4-18 00:00: 00 02-18 04:59 :00 No [id number] 37.5mg Take 1.5 tablets by mouth 2 (two) times daily with meals for 180 days. [facility] atorvastati n 40 mg tablet 2021-0 4-18 00:00: 00 02-18 04:59 :00 No [id number] 40mg Take 1 tablet by mouth at bedtime for 180 days. [facility] furosemide 40 mg tablet 2021-0 4-18 00:00: 00 02-18 04:59 :00 No [id number] 40mg Take 1 tablet by mouth every morning and evening for 180 days. [facility] carvediloL 25 mg tablet 2021-0 4-18 00:00: 00 02-18 04:59 :00 No [id number] 37.5mg Take 1.5 tablets by mouth 2 (two) times daily with meals for 180 days. [facility] atorvastati n 40 mg tablet 2021-0 4-18 00:00: 00 02-18 04:59 :00 No [id number] 40mg Take 1 tablet by mouth at bedtime for 180 days. [facility] furosemide 40 mg tablet 2021-0 4-18 00:00: 00 02-18 04:59 :00 No [id number] 40mg Take 1 tablet by mouth every morning and evening for 180 days. [facility] carvediloL 25 mg tablet 2-0 4-18 00:00: 00 02-18 04:59 :00 No [id number] 37.5mg Take 1.5 tablets by mouth 2 (two) times daily with meals for 180 days. [facility] atorvastati n 40 mg tablet 2021-0 4-18 00:00: 00 02-18 04:59 :00 No [id number] 40mg Take 1 tablet by mouth at bedtime for 180 days. [facility] furosemide 40 mg tablet 2021-0 4-18 00:00: 00 02-18 04:59 :00 No [id number] 40mg Take 1 tablet by mouth every morning and evening for 180 days. [facility] carvediloL 25 mg tablet 2-0 4-18 00:00: 00 02-18 04:59 :00 No [id number] 37.5mg Take 1.5 tablets by mouth 2 (two) times daily with meals for 180 days. [facility] atorvastati n 40 mg tablet 2021-0 4-18 00:00: 00 02-18 04:59 :00 No [id number] 40mg Take 1 tablet by mouth at bedtime for 180 days. [facility] furosemide 40 mg tablet 2021-0 4-18 00:00: 00 02-18 04:59 :00 No [id number] 40mg Take 1 tablet by mouth every morning and evening for 180 days. [facility] carvediloL 25 mg tablet 2021-0 4-18 00:00: 00 02-18 04:59 :00 No [id number] 37.5mg Take 1.5 tablets by mouth 2 (two) times daily with meals for 180 days. [facility] atorvastati n 40 mg tablet 2021-0 4-18 00:00: 00 02-18 04:59 :00 No [id number] 40mg Take 1 tablet by mouth at bedtime for 180 days. [facility] furosemide 40 mg tablet 2021-0 4-18 00:00: 00 02-18 04:59 :00 No [id number] 40mg Take 1 tablet by mouth every morning and evening for 180 days. [facility] carvediloL 25 mg tablet 2021-0 4-18 00:00: 00 02-18 04:59 :00 No [id number] 37.5mg Take 1.5 tablets by mouth 2 (two) times daily with meals for 180 days. [facility] atorvastati n 40 mg tablet 2021-0 4-18 00:00: 00 09-14 00:00 :00 No [id number] 40mg Take 1 tablet by mouth at bedtime for 180 days. [facility] furosemide 40 mg tablet 0 18 00:00: 00 09-14 00:00 :00 No [id number] 40mg Take 1 tablet by mouth every morning and evening for 180 days. [facility] carvediloL 25 mg tablet 2021-0 18 00:00: 00 09-14 00:00 :00 No [id number] 37.5mg Take 1.5 tablets by mouth 2 (two) times daily with meals for 180 days. [facility] carvediloL 25 mg tablet 08-21 00:00: 00 08-21 00:00 :00 No [id number] 25mg Take 1 tablet by mouth 2 (two) times daily with meals for 180 days. [facility] furosemide (LASIX) tablet 40 mg 08-20 14:00: 00 Yes 40mg 40 mg, Oral, QAM+PM, First dose (after last modificati on) on 08/20/21 at 0900, Until Discontinu ed, Routine [facility] lisinopriL (PRINIVIL,Z ESTRIL) tablet 20 mg 17 14:00: 00 08-21 11:42 :47 No 20mg 20 mg, Oral, DAILY, First dose (after last modificati on) on 08/20/21 at 0900, Until Discontinu ed, Routine [facility] carvediloL (COREG) tablet 25 mg 17 13:00: 00 08-21 17:46 :56 No 25mg 25 mg, Oral, BID MEALS, First dose (after last modificati on) on 08/20/21 at 0800, Until Discontinu ed, Routine [facility] lisinopriL (PRINIVIL,Z ESTRIL) tablet 5 mg 2021--16 15:00: 00 08-19 14:30 :00 No 5mg 5 mg, Oral, ONCE, 1 dose, On 08/19/21 at 1000, Routine [facility] carvediloL (COREG) tablet 12.5 mg 08-19 13:00: 00 08-19 22:39 :41 No 12.5mg 12.5 mg, Oral, BID MEALS, First dose (after last modificati on) on Sat08/19/21 at 0800, Until Discontinu ed, Routine [facility] furosemide (LASIX) injection 40 mg 08-19 01:00: 00 08-19 17:31 :11 No 40mg 40 mg, Slow IV Push, Q12H, First dose on Sat08/18/21 at 2000, Until Discontinu ed, Routine [facility] hydrALAZINE (APRESOLINE ) tablet 25 mg 08-18 21:47: 07 Yes 25mg 25 mg, Oral, Q6HPRN, Starting on Sat08/18/21 at 1647, Until Discontinu ed, Routine, SBP >180 [facility] lisinopriL (PRINIVIL,Z ESTRIL) tablet 10 mg 08-18 18:15: 00 08-18 18:14 :00 No 10mg 10 mg, Oral, DAILY, 1 dose, First dose on Sat08/18/21 at 1315, Routine [facility] lisinopriL (PRINIVIL,Z ESTRIL) tablet 10 mg 08-18 16:00: 00 08-19 13:47 :35 No 10mg 10 mg, Oral, DAILY, First dose on Sat08/18/21 at 1100, Until Discontinu ed, Routine [facility] spironolact one (ALDACTONE) tablet 25 mg 08-18 14:00: 00 Yes 25mg 25 mg, Oral, DAILY, First dose on Sat08/18/21 at 0900, Until Discontinu ed, Routine [facility] aspirin chewable tablet 81 mg 08-18 14:00: 00 Yes 81mg 81 mg, Oral, DAILY, First dose on Sat08/18/21 at 0900, Until Discontinu ed, Routine [facility] furosemide (LASIX) tablet 40 mg 08-18 14:00: 00 08-18 16:18 :32 No 40mg 40 mg, Oral, QAM+PM, First dose on Sat08/18/21 at 0900, Until Discontinu ed, Routine [facility] amLODIPine (NORVASC) tablet 10 mg 08-18 12:00: 00 08-18 11:05 :00 No 10mg 10 mg, Oral, ONCE, 1 dose, On Sat08/18/21 at 0700, Routine [facility] atorvastati n (LIPITOR) tablet 40 mg 08-18 02:00: 00 Yes 40mg 40 mg, Oral, QHS, First dose on Sat08/17/21 at 2100, Until Discontinu ed, Routine [facility] heparin (porcine) injection 5,000 Units 08-18 01:00: 00 Yes 5000U 5,000 Units, Subcutaneo us, Q12H, First dose on Sat08/17/21 at 2000, Until Discontinu ed, Routine [facility] hydrALAZINE (APRESOLINE ) tablet 10 mg 08-17 22:45: 00 08-17 23:51 :00 No 10mg 10 mg, Oral, ONCE, 1 dose, On Sat08/17/21 at 1745, Routine [facility] hydrALAZINE (APRESOLINE ) tablet 10 mg 08-17 21:45: 54 08-18 21:47 :24 No 10mg 10 mg, Oral, Q6HPRN, Starting on Sat08/17/21 at 1645, Until Sat08/18/21 at 1647, Routine, SBP >180 [facility] sulfur hexafluorid e microsphr (LUMASON) injection 5 mL 08-17 20:45: 00 08-17 20:45 :00 No [id number] 5mL 5 mL, Intravenou s, ONCE, 1 dose, On Sat08/17/21 at 1545, Routine
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 Restricted medication : DEZ QIU [facility] magnesium sulfate in water 4 gram/50 mL (8 %) IV Piggyback 4 g 08-17 18:15: 00 08-17 18:29 :00 No 4g 4 g, IV Piggyback, ONCE, 1 dose, On Viktoriya 08/17/21 at 1315, Routine [facility] KCL (KLOR-CON M20) tablet 40 mEq 08-17 18:15: 00 08-17 18:10 :00 No 40meq 40 mEq, Oral, ONCE, 1 dose, On Viktoriya 08/17/21 at 1315, Routine [facility] furosemide (LASIX) injection 40 mg 08-17 17:15: 00 08-18 12:42 :25 No 40mg 40 mg, Slow IV Push, Q12H, First dose on Viktoriya 08/17/21 at 1215, Until Discontinu ed, Routine [facility] acetaminoph en (TYLENOL) tablet 650 mg 08-17 14:09: 58 Yes 650mg 650 mg, Oral, Q6HPRN, Starting on Viktoriya 08/17/21 at 0909, Until Discontinu ed, Routine, Pain (scale 1-3) [facility] amLODIPine 10 mg tablet 08-17 09:16: 15 Yes 10mg Take 10 mg by mouth daily. [facility] hydroCHLORO thiazide 25 mg tablet 08-17 09:16: 15 Yes 25mg Take 25 mg by mouth daily. [facility] ibuprofen 800 mg tablet 08-17 09:16: 15 Yes 800mg Take 800 mg by mouth 2 (two) times daily. [facility] Vital Signs Vital Name Observation Time Observation Value Comments S jenniferusama Systolic blood pressure 2021-12-06 17:40:07 158 mm[Hg] [facility] Diastolic blood pressure 2021-12-06 17:40:07 105 mm[Hg] [facility] Heart rate 2021-12-06 15:43:00 91 /min [facility] Respiratory rate 2021-12-06 15:43:00 20 /min [facility] Oxygen saturation in Arterial blood by Pulse oximetry 2021-12-06 15:43:00 97 /min [facility] Body temperature 2021-12-06 14:49:00 36.61 Anastasiia [facility] Body height 2021-12-06 14:49:00 182.9 cm [facility] Body weight 2021-12-06 14:49:00 99.791 kg [facility] BMI 2021-12-06 14:49:00 29.84 kg/m2 [facility] Systolic blood pressure 2021-08-21 20:39:00 143 mm[Hg] [facility] Diastolic blood pressure 2021-08-21 20:39:00 104 mm[Hg] [facility] Heart rate 2021-08-21 20:39:00 79 /min [facility] Body temperature 2021-08-21 20:39:00 36 Anastasiia [facility] Respiratory rate 2021-08-21 20:39:00 18 /min [facility] Oxygen saturation in Arterial blood by Pulse oximetry 2021-08-21 20:39:00 99 /min [facility] Body weight 2021-08-21 10:57:00 104.055 kg [facility] BMI 2021-08-21 10:57:00 31.11 kg/m2 [facility] Body height 2021-08-18 10:31:00 182.9 cm [facility] Procedures Procedure Date / Time Performed Performing Clinician Source NOTICE OF PRIVACY PRACTICES 2021-12-06 14:38:21 Doctor Unassigned, Spivey [facility] CONSENT/REFUSAL FOR DIAGNOSIS AND TREATMENT 2021-12-06 14:38:03 Doctor Unassigned, Spivey [facility] AUTHORIZATION FOR RELEASE OF PHI 2021-09-01 05:01:00 Doctor Unassigned, Spivey [facility] MAGNESIUM 2021-08-21 08:42:00 [facility] BASIC METABOLIC PANEL (NA, K, CL, CO2, GLUCOSE, BUN, CREATININE, CA) 2021-08-21 08:42:00 Eryn Cowart [facility] N-TERMINAL PRO-BNP 2021-08-21 08:42:00 Gaston Elizbaeth [facility] HB ECG ROUTINE & RHYTHM STRIP 2021-08-20 13:02[facility]-08-20 09:22[facility] (NA, K, CL, CO2, GLUCOSE, BUN, CREATININE, CA) 2021-08-20 09:22:00 [facility] CBC WITH DIFF 2021-08-20 09:22:00 [facility] HB ECG ROUTINE & RHYTHM STRIP 2021-08-19 13:08:08 [facility] 2021-08-19 10:21:00 Gaston Elizabeth [facility] BASIC METABOLIC PANEL (NA, K, CL, CO2, GLUCOSE, BUN, CREATININE, CA) 2021-08-19 10:21:00 [facility] BASIC METABOLIC PANEL (NA, K, CL, CO2, GLUCOSE, BUN, CREATININE, CA) 2021-08-18 19:41:00 [facility] RHYTHM STRIP 2021-08-18 14:50:24 [facility] 2021-08-18 09:10:00 Eryn Cowart [facility] BASIC METABOLIC PANEL (NA, K, CL, CO2, GLUCOSE, BUN, CREATININE, CA) 2021-08-18 09:10:00 [facility] 2021-08-18 09:10[facility]17 [facility]58[facility] COMPLETE W/ CONTRAST 2021-08-17 18:53:00 [facility] 2021-08-17 15:43:00 Eryn Cowart [facility] MAGNESIUM 2021-08-17 15:43:00 [facility] 2021-08-17 15:43:00 Eryn Cowart [facility] TROPONIN I 2021-08-17 15:43:00 Supa [facility] [facility] THYROID STIMULATING HORMONE 2021-08-17 15:43:00 Sup[facility] HEPATIC FUNCTION PANEL (71505) (ALB,T.PRO,BILI T,BU/BC,ALT,AST,ALK PHOS) 2021-08-17 15:43:00 [facility] BASIC METABOLIC PANEL (NA, K, CL, CO2, GLUCOSE, BUN, CREATININE, CA) 2021-08-17 15:43:00 [facility] IRON PANEL 2021-08-17 15:43:00 Supa [facility] CBC WITH DIFF 2021-08-17 15:43:00 Supa [facility] GLYCOSYLATED HEMOGLOBIN (A1C) 2021-08-17 15:43:00 [facility] N-TERMINAL PRO-BNP 2021-08-17 15:43:00 [facility] XR CHEST 1 VW 2021-08-17 15:10:00 Supa [facility] Encounters Start Date/Time End Date/Time Encounter Type Admission Type Attending [facility] Care Department Encounter ID Source 2022-08-17 00:00:00 2022-08-17 00:00:00 Basim Garcia [facility] 1..840.114 350.1.13.10 4.2.7.2.686 [id number] [facility] 2021-12-06 09:51:00 2021-12-06 13:09:00 Emergency X Tameka NOVOA [facility] ERT [id number] [facility] 2021-12-06 09:51:00 2021-12-06 13:09:00 Emergency Tameka Novoa [facility] 1..840.114 350.1.13.10 4.2.7.2.686 [id number] [facility] 2021-12-06 00:00:00 2021-12-06 00:00:00 Orders Only Doctor Unassigned, Spivey [facility] 1.2840.114 350.1.13.10 4.2.7.2.686 [id number] [facility] 2021-09-14 00:00:00 2021-09-14 00:00:00 Telephone [facility] 1.2840.114 350.1.13.10 4.2.7.2.686 [id number] [facility] 2021-09-12 00:00:00 2021-09-12 00:00:00 Telephone [facility] MED[facility] OFF[facility]ILDING 1.2840.114 350.1.13.10 4.2.7.2.686 [id number] [facility] 2021-09-01 00:00:00 2021-09-01 00:00:00 Telephone [facility] 1.2840.114 350.1.13.10 4.2.7.2.686 [id number] [facility] 2021-09-01 00:00:00 2021-09-01 00:00:00 Orders Only Doctor Unassigned, Spivey [facility] 1.2840.114 350.1.13.10 4.2.7.2.686 [id number] [facility] 2021-08-30 00:00:00 2021-08-30 00:00:00 Telephone [facility] 1.2840.114 350.1.13.10 4.2.7.2.686 [id number] [facility] 2021-08-22 00:00:00 2021-08-22 00:00:00 Transition of Care Sherrell Neumann 1.2.840.114 350.1.13.10 4.2.7.2.686 [id number] [facility] 2021-08-17 08:35:00 2021-08-21 17:42:00 Inpatient U DIMITRIOS [facility]EL [facility] [id number] [facility] 2021-08-17 08:35:00 2021-08-21 17:42:00 Hospital Encounter TaimonieBasim [facility] Dimitrios Abel [facility] 1.2.840.114 350.1.13.10 4.2.7.2.686 [id number] [facility] 2021-08-18 00:00:00 2021-08-18 00:00:00 Telephone Dimitrios Abel [facility] 1.2.840.114 350.1.13.10 4.2.7.2.686 [id number] [facility] Results Test Description Test Time Test Comments Results Result Co mments Source [facility] (NA, K, CL, CO2, GLUCOSE, BUN, CREATININE, CA)2021-08-21 10:07:34* Test Item Value Reference Range Interpretation Comme nts NA (test code = 4916300732) 135 mmol/L 135-145 K (test code = 9525134343) 4.4 mmol/L 3.5-5.0 CL (test code = 9039311607) 102 mmol/L 98-108 CO2 TOTAL (test code = 6059092011) 26 mmol/L 23-31 AGAP (test code = 5373430201) 2-16 BUN (test code = 0456855662) 27 mg/dL 7-23 H GLUCOSE (test code = 7756273925) 104 mg/dL 70-110 CREATININE (test code = 8009811700) 1.49 mg/dL 0.60-1.25 H CALCIUM (test code = 9603223827) 9.0 mg/dL 8.6-10.6 eGFR (test code = 2833725792) mL/min/1.73m2 EBEN (test code = EBEN) Association [...] imaging tests). Lab Interpretation (test code = 92046-4) Abnormal [facility]2022-[facility]-18 10:07:34* Test Item Value Reference Range Interpretation Comme nts MAGNESIUM (test code = 7540339381) 1.9 mg/dL 1.7-2.4 Lab Interpretation (test cod e = 28838-3) Normal [facility] (NA, K, CL, CO2, GLUCOSE, BUN, CREATININE, CA)2021-08-20 10:22:59* Test Item Value Reference Range Interpretation Comme nts NA (test code = 9684236673) 137 mmol/L 135-145 K (test code = 4573517221) 4.4 mmol/L 3.5-5.0 CL (test code = 0825763175) 102 mmol/L 98-108 CO2 TOTAL (test code = 1647093537) 26 mmol/L 23-31 AGAP (test code = 9891356787) 2-16 BUN (test code = 0677885493) 31 mg/dL 7-23 H GLUCOSE (test code = 6113917383) 119 mg/dL 70-110 H CREATININE (test code = 9280714128) 1.56 mg/dL 0.60-1.25 H CALCIUM (test code = 6866087517) 9.1 mg/dL 8.6-10.6 eGFR (test code = 1406479758) mL/min/1.73m2 EBEN (test code = EBEN) Association [...] imaging tests). Lab Interpretation (test code = 23409-2) Abnormal [facility]2022-04-17 10:22:59* Test Item Value Reference Range Interpretation Comme nts MAGNESIUM (test code = 6715277716) 2.1 mg/dL 1.7-2.4 Lab Interpretation (test cod e = 81296-5) Normal [facility] WITH [id number] 09:42:15* Test Item Value Reference Range Interpretation [...] 32.8 g/dL 31.2-35.0 RDW-SD (test code = 51005-8) 39.3 fL 38.5-51.6 RDW-CV (test code = 788-0) 12.5 % 12.1-15.4 PLT (test code = 777-3) See_Comment H [Automated messa ge] The system which generated this result transmitted reference range: 150 - 328 10*3/?L. The reference range was not used to interpret this result as normal/abnormal. MPV (test code = 80823-0) 9.3 fL 9.8-13.0 L NRBC/100 WBC (test code = 4744888424) See_Comment [Automated me ssage] The system which generated this result transmitted reference range: 0.0 - 10.0 /100 WBCs. The reference range was not used to interpret this result as normal/abnormal. NRBC x10^3 (test code = 9552683221) <0.01 See_Comment [Automated messa ge] The system which generated this result transmitted reference range: 10*3/?L. The reference range was not used to interpret this result as normal/abnormal. GRAN MAT (NEUT) % (test code = 770-8) 60.5 % IMM GRAN % (test code = 0934553122) 0.30 % LYMPH % (test code = 736-9) 26.7 % MONO % (test code = 5905-5) 8.3 % EOS % (test code = 713-8) 3.4 % BASO % (test code = 706-2) 0.8 % GRAN MAT x10^3(ANC) (test code = 8436980427) 7.17 10*3/uL 1.99-6.95 H IMM GRAN x10^3 (test code = 3956106546) 0.03 10*3/uL 0.00-0.06 LYMPH x10^3 (test code = 731-0) 3.16 10*3/uL 1.09-3.23 MONO x10^3 (test code = 742-7) 0.98 10*3/uL 0.36-1.02 EOS x10^3 (test code = 711-2) 0.40 10*3/uL 0.06-0.53 BASO x10^3 (test code = 704-7) 0.10 10*3/uL 0.01-0.09 H Lab Interpretation (test code = 02305-8) Abnormal [facility] METABOLIC PANEL (NA, K, CL, CO2, GLUCOSE, BUN, CREATININE, CA)2021-08-19 10:52:12* Test Item Value Reference Range Interpretation Comme nts NA (test code = 4982259633) 136 mmol/L 135-145 K (test code = 4957941676) 3.8 mmol/L 3.5-5.0 CL (test code = 7184510161) 100 mmol/L 98-108 CO2 TOTAL (test code = 0828493850) 29 mmol/L 23-31 AGAP (test code = 9541576074) 2-16 BUN (test code = 4105082274) 32 mg/dL 7-23 H GLUCOSE (test code = 0734773225) 115 mg/dL 70-110 H CREATININE (test code = 7442392795) 1.67 mg/dL 0.60-1.25 H CALCIUM (test code = 4380562292) 9.1 mg/dL 8.6-10.6 eGFR (test code = 1512018187) mL/min/1.73m2 EBEN (test code = EBEN) Association [...] imaging tests). Lab Interpretation (test code = 26699-2) Abnormal [facility]2022-04-16 10:52:12* Test Item Value Reference Range Interpretation Comme nts MAGNESIUM (test code = 9485389641) 1.9 mg/dL 1.7-2.4 Lab Interpretation (test cod e = 65262-1) Normal [facility]OLIC [facility] (NA, K, CL, CO2, GLUCOSE, BUN, CREATININE, CA)2021-08-18 21:19:06* Test Item Value Reference Range Interpretation Comme nts NA (test code = 1415976056) 135 mmol/L 135-145 K (test code = 2238242062) 3.9 mmol/L 3.5-5.0 CL (test code = 5070832516) 98 mmol/L 98-108 CO2 TOTAL (test code = 7704212489) 30 mmol/L 23-31 AGAP (test code = 7555424269) 2-16 BUN (test code = 3985147548) 29 mg/dL 7-23 H GLUCOSE (test code = 1451662932) 121 mg/dL 70-110 H CREATININE (test code = 0297420927) 1.58 mg/dL 0.60-1.25 H CALCIUM (test code = 3028527170) 8.9 mg/dL 8.6-10.6 eGFR (test code = 3487522039) mL/min/1.73m2 EBEN (test code = EBEN) Association [...] imaging tests). Lab Interpretation (test code = 92499-2) Abnormal [facility] METABOLIC PANEL (NA, K, CL, CO2, GLUCOSE, BUN, CREATININE, CA)2021-08-18 10:04:44* Test Item Value Reference Range Interpretation Comme nts NA (test code = 8227187237) 135 mmol/L 135-145 K (test code = 6924638351) 4.0 mmol/L 3.5-5.0 Slight hemolysis CL (test code = 3487199010) 101 mmol/L 98-108 CO2 TOTAL (test code = 1368984063) 29 mmol/L 23-31 AGAP (test code = 6079272338) 2-16 BUN (test code = 6695212909) 32 mg/dL 7-23 H Slight hemolysis GLUCOSE (test code = 6087209649) 114 mg/dL 70-110 H CREATININE (test code = 7127827541) 1.54 mg/dL 0.60-1.25 H CALCIUM (test code = 5090230715) 8.8 mg/dL 8.6-10.6 eGFR (test code = 3120317218) mL/min/1.73m2 EBEN (test code = EBEN) Association [...] imaging tests). Lab Interpretation (test code = 91903-8) Abnormal [facility]2022-04-15 10:04:44* Test Item Value Reference Range Interpretation Comme nts MAGNESIUM (test code = 3889289510) 2.2 mg/dL 1.7-2.4 Lab Interpretation (test cod e = 52460-6) Normal [facility] WITH [id number] 09:24:38* Test Item Value Reference Range Interpretation Comme nts WBC (test code = 6690-2) See_Comment [Automated [employer]] The system which generated this result transmitted reference range: 4.20 - 10.70 10*3/?L. The reference range was not used to interpret this result as normal/abnormal. RBC (test code = 789-8) See_Comment [Automated [employer]] The system which generated this result transmitted [...] 33.3 g/dL 31.2-35.0 RDW-SD (test code = 32038-3) 39.1 fL 38.5-51.6 RDW-CV (test code = 788-0) 12.6 % 12.1-15.4 PLT (test code = 777-3) See_Comment H [Automated [employer] ge] The system which generated this result transmitted reference range: 150 - 328 10*3/?L. The reference range was not used to interpret this result as normal/abnormal. MPV (test code = 95624-6) 9.5 fL 9.8-13.0 L NRBC/100 WBC (test code = 1563071190) See_Comment [Automated me ssage] The system which generated this result transmitted reference range: 0.0 - 10.0 /100 WBCs. The reference range was not used to interpret this result as normal/abnormal. NRBC x10^3 (test code = 1873557903) <0.01 See_Comment [Automated messa ge] The system which generated this result transmitted reference range: 10*3/?L. The reference range was not used to interpret this result as normal/abnormal. GRAN MAT (NEUT) % (test code = 770-8) 65.3 % IMM GRAN % (test code = 3644254622) 0.20 % LYMPH % (test code = 736-9) 23.3 % MONO % (test code = 5905-5) 7.0 % EOS % (test code = 713-8) 3.5 % BASO % (test code = 706-2) 0.7 % GRAN MAT x10^3(ANC) (test code = 9012783313) 6.63 10*3/uL 1.99-6.95 IMM GRAN x10^3 (test code = 1921751448) <0.03 0.00-0.06 LYMPH x10^3 (test code = 731-0) 2.36 10*3/uL 1.09-3.23 MONO x10^3 (test code = 742-7) 0.71 10*3/uL 0.36-1.02 EOS x10^3 (test code = 711-2) 0.35 10*3/uL 0.06-0.53 BASO x10^3 (test code = 704-7) 0.07 10*3/uL 0.01-0.09 Lab Interpretation (test code = 19026-4) Abnormal [facility] (A1C)2021-08-18 02:37:07* Test Item Value Reference Range Interpretation Comme nts HGB A1C (test code = 4548-4) 5.8 % 4.0-5.7 H EBEN (test code = EBEN) Reference RangesNormal: <5.7%Prediabetes: 5.7 - 6.4%Diabetes: > 6.5% Lab Interpretation (test code = 88080-7) Abnormal [facility] [id number] 01:03:37* Test Item Value Reference Range Interpretation Comments TROPONIN I (test code = 0240282214) 0.101 ng/mL See_Comment H [Automated message] The [...] of biotin. Lab Interpretation (test code = 10928-1) Abnormal [facility]an[facility]horacic echo (TTE)2021-08-17 22:14:20* Test Item Value Reference Range Interpretation Comme nts Ao root annulus (test code = 3789674700) 3.3 cm Ao root diam (test code = 9412419013) 3.30 cm Aortic root (test code = 4581949973) 3.3 cm LA size (test code = 1769274750) 3.7 cm LVOT diameter (test code = 4683811393) 2.00 cm LVIDD (test code = 8573311944) 5.90 cm IVS (test code = 3169863374) 1.26 cm Interventricular Septum Diastolic Thickness by 2D (test code = 2007371) 1.26 cm LVPWD (test code = 8002674760) 1.19 cm PW (test code = 5904828625) 1.19 cm 0.6-1.1 EF(Teich) (test code = 2248518389) 46.60 % LVIDS (test code = 8386675048) 4.50 cm FS (test code = 9180091504) 24 % EF - 2D (test code = 05526727) 46.60 % LAV(MOD-sp4) (test code = 5064277163) 65.30 mL MV Peak E Narciso (test code = 6060036694) 126.4 cm/s E wave decelartion time (test code = 7192943066) 0.14 s MV Prop V (test code = 1659810363) 35.00 cm/s LVOT stroke volume (test code = 3133608582) 45.10 cm3 LVOT peak narciso (test code = 7350463149) 90.0 cm/s LVOT mn grad (test code = 7051410809) mmHg AV LVOT peak gradient (test code = 0633719532) mmHg LVOT peak VTI (test code = 9551217860) 14.4 cm LV V1 mean (test code = 3199713280) 63.00 cm/s Aortic valve mean velocity (test code = 8922490942) 76.8 cm/s Ao peak narciso (test code = 4453825253) 125.5 cm/s Ao VTI (test code = 8257498045) 17.0 cm AV area by cont VTI (test code = 8920406716) 2.6 cm2 AV area peak narciso (test code = 4332117366) 2.2 cm2 Ao max PG (test code = 8327645111) 6.30 mm[Hg] AV peak gradient (test code = 3622438011) mmHg AV valve area (test code = 3990908057) 2.60 cm2 AV mean gradient (test code = 3657333935) mmHg TR Peak Narciso (test code = 1779799747) 119.4 cm/s Triscuspid Valve Regurgitation Peak Gradient (test code = 9455909002) mmHg Tapse (test code = 5744058766) 1.95 cm LA volume (BP) (test code = 8109615170) 73.5 mL LAV(MOD-sp2) (test code = 6047168442) 74.00 mL LA Volume Index (BP) (test code = 1411828516) 32.5 mL/m2 LV Diastolic Volume (BP) (test code = 7043157588) 232.2 mL EF(MOD-bp) (test code = 4268904243) 33.10 % LV Systolic Volume (BP) (test code = 5003655651) 155.2 mL SV(MOD-bp) (test code = 7935207135) 76.90 mL EF (test code = 1360667527) 33 % Left Ventricular Stroke Volume by 2-D Biplane-MOD (test code = 8714968) 76.9 mL Radiology Study observation (narrative) (test code = 66532-6) EBEN (test code = EBEN) ?Left?Ventricle: Left [...] (104.3 kg) 2.3 sq meters 183/126 82 [facility] (43990) (ALB,T.PRO,BILI T,BU/BC,ALT,AST,ALK PHOS)2021-08-17 17:59:20* Test Item Value Reference Range Interpretation Comme nts TOTAL BILI (test code = 7669677832) 0.4 mg/dL 0.1-1.1 BILI UNCON (test code = 4271935932) 0.4 mg/dL 0.1-1.1 BILI CONJ (test code = 9344718679) 0.0 mg/dL 0.0-0.3 T PROTEIN (test code = 0754194080) 6.4 g/dL 6.3-8.2 ALBUMIN (test code = 2320072103) 3.7 g/dL 3.5-5.0 ALK PHOS (test code = 2346625676) 64 U/L 34-122 ALTv (test code = 1742-6) 39 U/L 5-50 AST(SGOT) (test code = 8639735328) 30 U/L 13-40 Lab Interpretation (test cod e = 53810-9) Normal [facility] Dallas[facility]ERR[facility] [id number] 17:21:19* Test Item Value Reference Range Interpretation Comme nts FERRITIN (test code = 4415455579) 29.7 ng/mL 18.0-464.0 EBEN (test code = EBEN) Biotin has been reported to cause a negative bias, interpret results relative to patient's use of biotin. Lab Interpretation (test code = 90853-5) Normal [facility] ST[facility]ULATING [id number] 17:14:24 * Test Item Value Reference Range Interpretation Comme nts TSH (test code = 6421130653) See_Comment [Automated [employer]] The system which generated this result transmitted reference range: 0.45 - 4.70 mIU/L. The reference range was not used to interpret this result as normal/abnormal. Lab Interpretation (test code = 35957-4) Normal [facility] DallasN-TERMINAL [id number] 16:55:55* Test Item Value Reference Range Interpretation Comme nts NT-proBNP (test code = 4491199274) 5070 pg/mL See_Comment H [Automated message] The system which generated this result transmitted reference range: <=125. The reference range was not used to interpret this result as normal/abnormal. EBEN (test code = EBEN) Biotin has been reported to cause a negative bias, interpret results relative to patient's use of biotin. Lab Interpretation (test code = 15478-0) Abnormal [facility] DallasTR[facility] [id number] 16:55:55* Test Item Value Reference Range Interpretation Comments TROPONIN I (test code = 8224202721) 0.117 ng/mL See_Comment H [Automated message] The [...] of biotin. Lab Interpretation (test code = 48185-3) Abnormal [facility] DallasIRON [id number] 16:52:53* Test Item Value Reference Range Interpretation Comme nts IRON (test code = 0773913220) 51 ug/dL 50-160 TIBC (test code = 5524929940) 298 ug/dL 250-410 % FE SAT (test code = 5199496274) 17 % 20-50 L Lab Interpretation (test cod e = 62511-0) Abnormal [facility]2022-04-14 16:41:35* Test Item Value Reference Range Interpretation Comme nts MAGNESIUM (test code = 5483547258) 1.6 mg/dL 1.7-2.4 L Lab Interpretation (test cod e = 35089-1) Abnormal [facility]OS[facility]US2022-04-14 16:41:35* Test Item Value Reference Range Interpretation Comme nts PHOSPHORUS (test code = 1209618120) 4.0 mg/dL 2.5-5.0 Lab Interpretation (test cod e = 60202-1) Normal [facility] METABOLIC PANEL (NA, K, CL, CO2, GLUCOSE, BUN, CREATININE, CA)2021-08-17 16:41:35* Test Item Value Reference Range Interpretation Comme nts NA (test code = 4590571156) 134 mmol/L 135-145 L K (test code = 2342736983) 3.6 mmol/L 3.5-5.0 CL (test code = 2066931054) 99 mmol/L 98-108 CO2 TOTAL (test code = 8542043540) 32 mmol/L 23-31 H AGAP (test code = 9874414153) 2-16 BUN (test code = 9197335238) 24 mg/dL 7-23 H GLUCOSE (test code = 4182645633) 111 mg/dL 70-110 H CREATININE (test code = 1063408358) 1.60 mg/dL 0.60-1.25 H CALCIUM (test code = 2715614394) 8.8 mg/dL 8.6-10.6 eGFR (test code = 8141272561) mL/min/1.73m2 EBEN (test code = EBEN) Association [...] imaging tests). Lab Interpretation (test code = 53530-3) Abnormal [facility] WITH [id number] 16:00:05* Test Item Value Reference Range Interpretation Comme nts WBC (test code = 6690-2) See_Comment [Automated [employer]] The system which generated this result transmitted reference range: 4.20 - 10.70 10*3/?L. The reference range was not used to interpret this result as normal/abnormal. RBC (test code = 789-8) See_Comment L [Automated [employer]] The system which generated this result transmitted [...] 33.7 g/dL 31.2-35.0 RDW-SD (test code = 32737-8) 39.5 fL 38.5-51.6 RDW-CV (test code = 788-0) 12.6 % 12.1-15.4 PLT (test code = 777-3) See_Comment H [Automated [employer]] The system which generated this result transmitted reference range: 150 - 328 10*3/?L. The reference range was not used to interpret this result as normal/abnormal. MPV (test code = 12787-7) 9.4 fL 9.8-13.0 L NRBC/100 WBC (test code = 9399892634) See_Comment [Automated [employer] ssage] The system which generated this result transmitted reference range: 0.0 - 10.0 /100 WBCs. The reference range was not used to interpret this result as normal/abnormal. NRBC x10^3 (test code = 6164700965) <0.01 See_Comment [Automated [employer]] The system which generated this result transmitted reference range: 10*3/?L. The reference range was not used to interpret this result as normal/abnormal. GRAN MAT (NEUT) % (test code = 770-8) 65.6 % IMM GRAN % (test code = 6103717208) 0.20 % LYMPH % (test code = 736-9) 23.8 % MONO % (test code = 5905-5) 6.7 % EOS % (test code = 713-8) 3.2 % BASO % (test code = 706-2) 0.5 % GRAN MAT x10^3(ANC) (test code = 8605224472) 6.58 10*3/uL 1.99-6.95 IMM GRAN x10^3 (test code = 1358684424) <0.03 0.00-0.06 LYMPH x10^3 (test code = 731-0) 2.39 10*3/uL 1.09-3.23 MONO x10^3 (test code = 742-7) 0.67 10*3/uL 0.36-1.02 EOS x10^3 (test code = 711-2) 0.32 10*3/uL 0.06-0.53 BASO x10^3 (test code = 704-7) 0.05 10*3/uL 0.01-0.09 Lab Interpretation (test code = 18309-7) Abnormal [facility]"
--- NOTE | 2023-06-11 23:07 | EDPHYS ---
Physician Documentation [facility] Name: Wagner Padron Age: 38 yrs Sex: Male : 1985 Arrival Date: 06/11/2023 Time: 20:29 Bed DX4 Private MD: ED Physician Amauri Crowley HPI: 06/11 20:34 This 38 yrs old Black Male presents to ER via Unassigned with complaints of GOUT FLARE sp4 UP. 20:36 Allergies: Nitroglycerin; PMHx: CHF; Gout; High Cholesterol; Hypercholesterolemia; sp4 Hypertension; PSHx: Leg sx; right femur surgery;. 23:15 Patient presents with Right foot pain indicative of the right foot gout flare right MTP sp4 joint of the great toe, which is reminiscent of his standard gout flare. . Historical: - Allergies: 20:46 Nitroglycerin; ap3 - PMHx: 20:46 CHF; Gout; High Cholesterol; Hypercholesterolemia; Hypertension; ap3 - PSHx: 20:46 Leg sx; right femur surgery; ap3 - Immunization history:: Client reports receiving the 2nd dose of the Covid vaccine, Flu vaccine is up to date. - Social history:: Smoking status: Reported history of juuling and/or vaping. Patient uses alcohol, occasionally. - Family history:: not pertinent. ROS: 23:15 Constitutional: Negative for fever, chills, and weight loss, positive for right great sp4 toe pain in the right MTP joint pain Eyes: Negative for injury, pain, redness, and discharge, ENT: Negative for injury, pain, and discharge, Neck: Negative for injury, pain, and swelling, Cardiovascular: Negative for chest pain, palpitations, and edema, Respiratory: Negative for shortness of breath, cough, wheezing, and pleuritic chest pain, Abdomen/GI: Negative for abdominal pain, nausea, vomiting, diarrhea, and constipation, Back: Negative for injury and pain, : Negative for injury, bleeding, discharge, and swelling, MS/Extremity: Negative for injury and deformity, positive for right foot tenderness pain mild swelling on right good right foot toe MTP joint Skin: Negative for injury, rash, and discoloration, Neuro: Negative for headache, weakness, numbness, tingling, and seizure, Psych: Negative for depression, anxiety, Allergy/Immunology: Negative for hives, rash, and allergies Endocrine: Negative for neck swelling, polydipsia, polyuria, polyphagia, and weight changes Hematologic/Lymphatic: Negative for swollen nodes, abnormal bleeding, and unusual bruising Exam: 23:15 Constitutional: This is a well developed, well nourished patient who is awake, alert, sp4 and in no acute distress. Head/Face: Normocephalic, atraumatic. Eyes: Pupils equal round and reactive to light, extra-ocular motions intact. Lids and lashes normal. Conjunctiva and sclera are not injected. Cornea within normal limits. Periorbital areas with no swelling, redness, or edema. ENT: Nares patent. No nasal discharge, no septal abnormalities noted. Tympanic membranes are normal and external auditory canals are clear. Oropharynx with no redness, swelling, or masses, exudates, or evidence of obstruction, uvula midline. Mucous membranes moist. Neck: Trachea midline, no thyromegaly or masses palpated, and no cervical lymphadenopathy. Supple, full range of motion without nuchal rigidity, or vertebral point tenderness. Chest/axilla: Normal chest wall appearance and motion. Nontender with no deformity. No lesions are appreciated. Cardiovascular: Regular rate and rhythm with a normal S1 and S2. No gallops, murmurs, or rubs. Normal PMI, no JVD. No pulse deficits. Respiratory: Lungs have equal breath sounds bilaterally, clear to auscultation and percussion. No rales, rhonchi or wheezes noted. No increased work of breathing, no retractions or nasal flaring. Abdomen/GI: Soft, non-tender, with normal bowel sounds. No distension or tympany. No guarding or rebound. No evidence of tenderness throughout. Back: No spinal tenderness. No costovertebral tenderness. Skin: Warm, dry with normal turgor. Normal color with no rashes, no lesions, and no evidence of cellulitis. MS/ Extremity: Pulses equal, no cyanosis. Neurovascular intact. Full, normal range of motion. Right foot great toe pain tenderness at the MTP joint , mild swelling present Neuro: Awake and alert, GCS 15, oriented to person, place, time, and situation. Cranial nerves II-XII grossly intact. Motor strength 5/5 in all extremities. Sensory grossly intact. Psych: Awake, alert, with orientation to person, place and time. Behavior, mood, and affect are within normal limits Vital Signs: 20:45 Pulse 79; Resp 17; Temp 98.5; Pulse Ox 100% ; Weight 104.33 kg; Height 6 ft. 0 in. ; ap3 Pain 7/10; 20:48 BP 180 / 130; ap3 23:00 BP 169 / 92; Pulse 72; Resp 16; Pulse Ox 100% on R/A; Pain 5/10; pf1 20:45 Body Mass Index 31.19 (104.33 kg, 182.88 cm) ap3 20:45 Pain Scale: Adult ap3 23:00 Pain Scale: Adult pf1 MDM: 22:14 Patient medically screened. sp4 23:15 Differential Diagnosis altered mental status, sepsis, flu, Gout . Data reviewed: vital sp4 signs, nurses notes. ED course: Patient feels improved after medications. Stable for discharge home with allopurinol, colchicine, prednisone, tramadol, ibuprofen. . Administered Medications: 22:58 Drug: Dexamethasone IM 10 mg IM once Route: IM; Site: left deltoid; ap3 23:40 Follow up: Response: No adverse reaction; Marked relief of symptoms pf1 22:58 Drug: [place] PO 10 mg-325 mg 1 tabs PO once Route: PO; ap3 23:40 Follow up: Response: No adverse reaction; Marked relief of symptoms; Pain is decreased; pf1 RASS: Alert and Calm (0) 22:58 Drug: Ondansetron PO 4 mg PO once Route: PO; ap3 23:40 Follow up: Response: No adverse reaction; Marked relief of symptoms pf1 22:58 Drug: Ketorolac IM 60 mg IM once Route: IM; Site: right deltoid; ap3 23:40 Follow up: Response: No adverse reaction; Marked relief of symptoms; Pain is decreased pf1 22:58 Drug: Cyclobenzaprine PO 10 mg PO once Route: PO; ap3 23:40 Follow up: Response: No adverse reaction; Marked relief of symptoms pf1 Disposition Summary: 06/11/23 23:06 Discharge Ordered Notes: Location: Home sp4 Problem: new sp4 Symptoms: have improved sp4 Condition: Stable sp4 Diagnosis - Idiopathic gout, right ankle and foot sp4 - Gout flare right foot first MTP joint / Podagra sp4 Followup: sp4 - With: Osbaldo Quinn DO - When: 7 - 10 days - Reason: Recheck today's complaints Discharge Instructions: - Discharge Summary Sheet sp4 - Gout sp4 Forms: - Patient Portal Instructions sp4 Prescriptions: - colchicine 0.6 mg Oral tablet - take 1 tablet ORAL route once; 30 tablet; Refills: 0, Product Selection sp4 Permitted - Ibuprofen 800 mg Oral Tablet - take 1 tablet ORAL route every 8 hours As needed take with food; 30 tablet; sp4 Refills: 0, Product Selection Permitted - Allopurinol 100 mg Oral tablet - take 1 tablet ORAL route once daily Start after Gout attack pain goes away - sp4 usually 7 to 10 days after acute gout attack; 30 tablet; Refills: 0, Product Selection Permitted - Tramadol 50 mg Oral tablet - take 1 tablet ORAL route every 8 hours as needed; 20 tablet; Refills: 0, sp4 Product Selection Permitted - Prednisone 20 mg Oral Tablet - take 2 tablets ORAL route once daily for 5 days; 10 tablet; Refills: 0, Product sp4 Selection Permitted Signatures: Abi Perdomo RN RN ap3 Amauri Crowley MD MD sp4 Haritha Ahumada RN pf1
--- NOTE | 2023-06-11 23:07 | ER ---
Nurse's Notes [facility] Name: Wagner Padron Age: 38 yrs Sex: Male : 1985 Arrival Date: 06/11/2023 Time: 20:29 Bed DX4 Private MD: Diagnosis: Idiopathic gout, right ankle and foot;Gout flare right foot first MTP joint / Podagra Presentation: 06/11 20:45 Chief complaint: Patient states: he is having pain in his right foot of which he ap3 reports is a 7/10 on the pain scale. patient believes it is a gout flare up. Coronavirus screen: At this time, the client does not indicate any symptoms associated with coronavirus-19. Ebola Screen: No symptoms or risks identified at this time. Initial Sepsis Screen: Does the patient meet any 2 criteria? No. Patient's initial sepsis screen is negative. Does the patient have a suspected source of infection? No. Patient's initial sepsis screen is negative. Risk Assessment: Do you want to hurt yourself or someone else? Patient reports no desire to harm self or others. Onset of symptoms was June 10, 2023. 20:45 Method Of Arrival: Ambulatory ap3 20:45 Acuity: HERMELINDA 3 ap3 Triage Assessment: 20:47 General: Appears in no apparent distress. Behavior is calm, cooperative, appropriate ap3 for age. Pain: Complains of pain in right foot. Neuro: Level of Consciousness is awake, alert, obeys commands, Oriented to person, place, time, situation. Cardiovascular: Patient's skin is warm and dry. Respiratory: Airway is patent Respiratory effort is even, unlabored, Respiratory pattern is regular, symmetrical. Historical: - Allergies: 20:46 Nitroglycerin; ap3 - PMHx: 20:46 CHF; Gout; High Cholesterol; Hypercholesterolemia; Hypertension; ap3 - PSHx: 20:46 Leg sx; right femur surgery; ap3 - Immunization history:: Client reports receiving the 2nd dose of the Covid vaccine, Flu vaccine is up to date. - Social history:: Smoking status: Reported history of juuling and/or vaping. Patient uses alcohol, occasionally. - Family history:: not pertinent. Screenin:32 [facility] ED Fall Risk Assessment (Adult) History of falling in the last 3 months, pf1 including since admission No falls in past 3 months (0 pts) Confusion or Disorientation No (0 pts) Intoxicated or Sedated No (0 pts) Impaired Gait No (0 pts) Mobility Assist Device Used No (0 pt) Altered Elimination No (0 pt) Score/Fall Risk Level 0 - 2 = Low Risk Oriented to surroundings, Maintained a safe environment, Educated pt \T\ family on fall prevention, incl call for assistance when getting out of bed, Assessed \T\ reinforced patient's understanding of fall precautions, Provided non-skid footwear, Hourly rounding (assess needs \T\ fall precautionary measures) done, Used ambulatory aids as needed (educated on \T\ assisted with), Used gait belt as appropriate. 22:32 Abuse screen: Denies threats or abuse. Nutritional screening: No deficits noted. pf1 Tuberculosis screening: No symptoms or risk factors identified. Assessment: 22:32 General: Appears in no apparent distress. comfortable, well groomed, well developed, pf1 Behavior is. 22:32 Pain: Complains of pain in right foot. Neuro: No deficits noted. Level of Consciousness pf1 is awake, alert, obeys commands, Oriented to person, place, time, situation. Cardiovascular: Capillary refill < 3 seconds Patient's skin is warm and dry. Respiratory: No deficits noted. Airway is patent Respiratory effort is even, unlabored, Respiratory pattern is regular, symmetrical. GI: No deficits noted. No signs and/or symptoms were reported involving the gastrointestinal system. : No deficits noted. No signs and/or symptoms were reported regarding the genitourinary system. EENT: No deficits noted. No signs and/or symptoms were reported regarding the EENT system. Musculoskeletal: Reports pain in right foot. Vital Signs: 20:45 Pulse 79; Resp 17; Temp 98.5; Pulse Ox 100% ; Weight 104.33 kg; Height 6 ft. 0 in. ; ap3 Pain 7/10; 20:48 BP 180 / 130; ap3 23:00 BP 169 / 92; Pulse 72; Resp 16; Pulse Ox 100% on R/A; Pain 5/10; pf1 20:45 Body Mass Index 31.19 (104.33 kg, 182.88 cm) ap3 20:45 Pain Scale: Adult ap3 23:00 Pain Scale: Adult pf1 ED Course: 20:32 Patient arrived in ED. kj1 20:34 Potepalov, Amauri, MD is Attending Physician. sp4 20:46 Triage completed. ap3 22:32 Patient has correct armband on for positive identification. pf1 22:32 Arm band placed on right wrist. pf1 23:05 Osbaldo Quinn DO is Referral Physician. sp4 23:46 Provided Education on: prescriptions. pf1 23:46 Patient did not have IV access during this emergency room visit. pf1 23:46 No provider procedures requiring assistance completed. pf1 Administered Medications: 22:58 Drug: Dexamethasone IM 10 mg IM once Route: IM; Site: left deltoid; ap3 23:40 Follow up: Response: No adverse reaction; Marked relief of symptoms pf1 22:58 Drug: [place] PO 10 mg-325 mg 1 tabs PO once Route: PO; ap3 23:40 Follow up: Response: No adverse reaction; Marked relief of symptoms; Pain is decreased; pf1 RASS: Alert and Calm (0) 22:58 Drug: Ondansetron PO 4 mg PO once Route: PO; ap3 23:40 Follow up: Response: No adverse reaction; Marked relief of symptoms pf1 22:58 Drug: Ketorolac IM 60 mg IM once Route: IM; Site: right deltoid; ap3 23:40 Follow up: Response: No adverse reaction; Marked relief of symptoms; Pain is decreased pf1 22:58 Drug: Cyclobenzaprine PO 10 mg PO once Route: PO; ap3 23:40 Follow up: Response: No adverse reaction; Marked relief of symptoms pf1 Medication: 22:32 VIS not applicable for this client. pf1 Outcome: 23:06 Discharge ordered by . sp4 23:44 Discharged to home ambulatory, pf1 23:44 Condition: improved 23:44 Discharge instructions given to patient, Instructed on discharge instructions, follow up and referral plans. Demonstrated understanding of instructions, follow-up care, medications, Prescriptions given X 5 23:46 Patient left the ED. pf1 Signatures: Abi Perdomo RN RN ap3 Inga Carballo kj1 Haritha Ahumada RN RN pf1 Amauri Crowley MD MD sp4
== END ==
LOC: ER 20:29
DX: M10.071 Idiopathic gout, right ankle and foot (principal); Z88.8 Allergy status to other drugs, medicaments and biological substances
CPT/HCPCS: Q0162; J1100

== ENCOUNTER 2023-08-06 18:57 | Emergency (ER) | payer OTHER ==
--- NOTE | 2023-08-06 19:32 | EDPHYS ---
Physician Documentation [facility] Name: Wagner Padron Age: 38 yrs Sex: Male : 1985 Arrival Date: 08/06/2023 Time: 18:57 Bed Treatment Private MD: ED Physician Donn Murphy HPI: 08/05 19:59 This 38 yrs old Black Male presents to ER via Ambulatory with complaints of Gout. sb4 19:59 patient reports left ankle/foot pain similar to his prior gout flare ups. does not have sb4 a PCP. relies on the medications prescribed at the ED, ran out a few weeks ago. does not know the name of the medication prescribed. pain began this morning, getting worse. Historical: - Allergies: 19:27 Nitroglycerin; nj1 - PMHx: 19:27 CHF; Gout; High Cholesterol; Hypercholesterolemia; Hypertension; nj1 - PSHx: 19:27 Leg sx; right femur surgery; nj1 - Immunization history:: Client reports receiving the 2nd dose of the Covid vaccine. - Infectious Disease History:: Denies. - Social history:: Smoking status: Reported history of juuling and/or vaping. ROS: 19:59 Constitutional: Negative for fever, chills, and weight loss, sb4 19:59 MS/extremity: Positive for pain, swelling, tenderness, warmth, of the left foot, 19:59 All other systems are negative, Exam: 19:59 Constitutional: This is a well developed, well nourished patient who is awake, alert, sb4 and in no acute distress. Head/Face: Normocephalic, atraumatic. Eyes: Extra-ocular motions intact. Periorbital areas with no swelling, redness, or edema. ENT: Mucous membranes moist. Skin: Warm, dry with normal turgor. Normal color with no rashes, no lesions, and no evidence of cellulitis. Neuro: Awake and alert, GCS 15, oriented to person, place, time, and situation. Motor strength 5/5 in all extremities. Sensory grossly intact. 19:59 Musculoskeletal/extremity: swelling noted to distal left ankle/foot. Vital Signs: 19:26 BP 203 / 127; Pulse 82; Resp 18; Temp 98.7(O); Pulse Ox 100% ; Weight 108.86 kg; Height nj1 6 ft. 0 in. ; Pain 10/10; 20:20 BP 164 / 89; Pulse 88; Resp 17; Pulse Ox 99% ; jj7 19:26 Body Mass Index 32.55 (108.86 kg, 182.88 cm) nj1 19:26 Pain Scale: Adult nj1 MDM: 19:31 Patient medically screened. sb4 19:59 Data reviewed: vital signs, nurses notes, and as a result, I will discharge patient. sb4 Counseling: I had a detailed discussion with the patient and/or guardian regarding the historical points, exam findings, and any diagnostic results supporting the discharge/admit diagnosis, the need for outpatient follow up, for definitive care, to return to the emergency department if symptoms worsen or persist or if there are any questions or concerns that arise at home. Administered Medications: 19:33 CANCELLED (Physician Discretion): hydrocodone-acetaminophen5 mg-325 mg 2 tabs PO once sb4 20:00 Drug: Dexamethasone IM 10 mg IM once Route: IM; Site: left ventrogluteal; pf1 20:20 Follow up: Response: Marked relief of symptoms jj7 20:00 Drug: Ketorolac IM 30 mg IM once Route: IM; Site: left deltoid; pf1 20:20 Follow up: Response: Marked relief of symptoms jj7 20:00 Drug: HYDROcodone-acetaminophen PO 5 mg-325 mg 1 tabs PO once Route: PO; pf1 20:20 Follow up: Response: Marked relief of symptoms jj7 Disposition: 20:28 Co-signature as Attending Physician, Donn Murphy MD I reviewed the patient's care rt provided by the Advanced Practice Provider and agree with the diagnosis and treatment plan. Disposition Summary: 08/06/23 19:31 Discharge Ordered Notes: Location: Home sb4 Problem: an acute exacerbation sb4 Symptoms: have improved sb4 Condition: Stable sb4 Diagnosis - Idiopathic gout, left ankle and foot sb4 Followup: sb4 - With: Private Physician - When: 1 week - Reason: Recheck today's complaints, Re-evaluation by your physician Discharge Instructions: - Discharge Summary Sheet sb4 - Low-Purine Eating Plan sb4 - Gout, [id number] sb4 Forms: - Thank You Letter sb4 - Antibiotic Education sb4 - Patient Portal Instructions sb4 - Leadership Thank You Letter sb4 Prescriptions: - colchicine 0.6 mg Oral tablet - take 1 tablet ORAL route daily; 30 tablet; Refills: 0, Product Selection sb4 Permitted - Prednisone 20 mg Oral Tablet - take 1 tablet ORAL route once daily for 5 days; 5 tablet; Refills: 0, Product sb4 Selection Permitted Signatures: Sweetie Chatterjee PA-C PA-C sb4 Donn Murphy MD MD rt Haritha Ahumada RN RN pf1 Priyanka Acevedo RN RN nj1 Willie Lockett RN jj7 Corrections: (The following items were deleted from the chart) 19:33 19:30 HYDROcodone-acetaminophen PO 5 mg-325 mg 2 tabs PO once ordered. sb4 sb4
--- NOTE | 2023-08-06 19:32 | ER ---
Nurse's Notes [facility] Name: Wagner Padron Age: 38 yrs Sex: Male : 1985 Arrival Date: 08/06/2023 Time: 18:57 Bed Treatment Private MD: Diagnosis: Idiopathic gout, left ankle and foot Presentation: 08/05 19:26 Chief complaint: Patient states: Left foot pain, states "gout has flared up". Ran out [facility] of medication for gout a few weeks ago. Coronavirus screen: Vaccine status: Patient reports receiving the 2nd dose of the covid vaccine. Ebola Screen: Patient denies travel to an Ebola-affected area in the 21 days before illness onset. Initial Sepsis Screen: Does the patient meet any 2 criteria? No. Patient's initial sepsis screen is negative. Does the patient have a suspected source of infection? No. Patient's initial sepsis screen is negative. Risk Assessment: Do you want to hurt yourself or someone else? Patient reports no desire to harm self or others. Onset of symptoms was August 05, 2023. 19:26 Method Of Arrival: Ambulatory [facility] 19:26 Acuity: HERMELINDA 3 nj Triage Assessment: 19:29 General: Appears in no apparent distress. uncomfortable, Behavior is calm, cooperative, nj1 appropriate for age. Pain: Complains of pain in left foot Pain currently is 10 out of 10 on a pain scale. Historical: - Allergies: 19:27 Nitroglycerin; nj1 - PMHx: 19:27 CHF; Gout; High Cholesterol; Hypercholesterolemia; Hypertension; nj1 - PSHx: 19:27 Leg sx; right femur surgery; nj1 - Immunization history:: Client reports receiving the 2nd dose of the Covid vaccine. - Infectious Disease History:: Denies. - Social history:: Smoking status: Reported history of juuling and/or vaping. Screenin:00 [facility] ED Fall Risk Assessment (Adult) History of falling in the last 3 months, jj7 including since admission No falls in past 3 months (0 pts) Confusion or Disorientation No (0 pts) Intoxicated or Sedated No (0 pts) Impaired Gait No (0 pts) Mobility Assist Device Used No (0 pt) Altered Elimination No (0 pt) Score/Fall Risk Level 0 - 2 = Low Risk Oriented to surroundings, Maintained a safe environment, Educated pt \\T\\ family on fall prevention, incl call for assistance when getting out of bed. Abuse screen: Denies threats or abuse. Nutritional screening: No deficits noted. 20:00 Tuberculosis screening: No symptoms or risk factors identified. jj7 Assessment: 20:00 General: Appears in no apparent distress. uncomfortable, Behavior is calm, cooperative, jj7 appropriate for age. Pain: Complains of pain in left foot. Musculoskeletal: Reports pain in left foot. Vital Signs: 19:26 BP 203 / 127; Pulse 82; Resp 18; Temp 98.7(O); Pulse Ox 100% ; Weight 108.86 kg; Height nj1 6 ft. 0 in. ; Pain 10/10; 20:20 BP 164 / 89; Pulse 88; Resp 17; Pulse Ox 99% ; jj7 19:26 Body Mass Index 32.55 (108.86 kg, 182.88 cm) nj1 19:26 Pain Scale: Adult nj1 ED Course: 18:58 Patient arrived in ED. mr 19:07 Sweetie Chatterjee PA-C is PHCP. sb4 19:07 Donn Murphy MD is Attending Physician. sb4 19:27 Triage completed. nj1 19:29 Arm band placed on right wrist. nj1 20:00 Patient has correct armband on for positive identification. jj7 20:00 No provider procedures requiring assistance completed. Patient did not have IV access jj7 during this emergency room visit. Administered Medications: 19:33 CANCELLED (Physician Discretion): hydrocodone-acetaminophen5 mg-325 mg 2 tabs PO once sb4 20:00 Drug: Dexamethasone IM 10 mg IM once Route: IM; Site: left ventrogluteal; pf1 20:20 Follow up: Response: Marked relief of symptoms jj7 20:00 Drug: Ketorolac IM 30 mg IM once Route: IM; Site: left deltoid; pf1 20:20 Follow up: Response: Marked relief of symptoms jj7 20:00 Drug: HYDROcodone-acetaminophen PO 5 mg-325 mg 1 tabs PO once Route: PO; pf1 20:20 Follow up: Response: Marked relief of symptoms jj7 Medication: 20:00 VIS not applicable for this client. jj7 Outcome: 19:31 Discharge ordered by . sb4 20:21 Discharged to home via wheelchair, pf1 20:21 Condition: improved 20:21 Discharge instructions given to patient, Instructed on discharge instructions, follow up and referral plans. Demonstrated understanding of instructions, follow-up care, medications, Prescriptions given X 1, 20:23 Patient left the ED. pf1 Signatures: Niurka Abdul, Reg Reg mr Lockett Willie, RN RN jj7 Sweetie Chatterjee, PAIreneC PA-C sb4 Haritha Ahumada RN RN pf1 Priyanka Acevedo RN RN nj1
[2023-08-06] MEDS ORDERED: dexAMETHasone 10 MG/ML VIAL ONE (19:59)
[2023-08-06] MEDS ORDERED: HYDROCODONE/APAP 5/325 MG TAB ONE (19:59)
[2023-08-06] MEDS ORDERED: KETOROLAC 30 MG/ML INJ ONE (19:59)
[2023-08-06 22:45] VITALS: BP 203/127; TEMP 98.7; O2SAT 100
== END 2023-08-06 20:23 | disposition home or self-care (01) ==
LOC: ER 18:57
DX: M10.072 Idiopathic gout, left ankle and foot (principal); Z88.8 Allergy status to other drugs, medicaments and biological substances
CPT/HCPCS: 96372; 99284; J1100

== ENCOUNTER 2023-10-28 12:21 | Emergency (ER) | payer OTHER ==
--- NOTE | 2023-10-28 13:04 | EDPHYS ---
Physician Documentation [facility] Name: Wagner Padron Age: 38 yrs Sex: Male : 1985 Arrival Date: 10/28/2023 Time: 12:21 Bed IW6 Private MD: ED Physician Donn Murphy HPI: 10/27 16:11 This 38 yrs old Black Male presents to ER via Ambulatory with complaints of Knee Pain. rt 16:11 Patient with history of gout presents to the ED with Left knee pain starting yesterday. rt Patient denies any significant swelling to the area. Denies fever, chills. Denies other acute complaints, symptoms are moderate in severity, no other aggravating or elevating factors. . Historical: - Allergies: 13:00 Nitroglycerin; ph - Home Meds: 13:00 metoprolol tartrate 100 mg Oral tab 1 tab once daily [Active]; Colchicine Oral for ph acute gouty arthritis [Active]; atorvastatin 20 mg daily [Active]; Furosemide 10mg Oral once daily [Active]; - PMHx: 13:00 CHF; Gout; High Cholesterol; Hypercholesterolemia; Hypertension; ph - PSHx: 13:00 Leg sx; right femur surgery; ph - Immunization history:: Adult Immunizations unknown. - Infectious Disease History:: Denies. - Social history:: Smoking status: Reported history of juuling and/or vaping. - Family history:: not pertinent. ROS: 16:11 Constitutional: Negative for fever, chills, and weight loss, Skin: Negative for injury, rt rash, and discoloration, Neuro: Negative for headache, weakness, numbness, tingling, and seizure, 16:11 MS/extremity: Positive for pain, Negative for swelling, Exam: 16:11 Constitutional: This is a well developed, well nourished patient who is awake, alert, rt and in no acute distress. Head/Face: Normocephalic, atraumatic. Skin: Warm, dry with normal turgor. Normal color with no rashes, no lesions, and no evidence of cellulitis. Neuro: Awake and alert, GCS 15, oriented to person, place, time, and situation. Cranial nerves II-XII grossly intact. Motor strength 5/5 in all extremities. Sensory grossly intact. Cerebellar exam normal. Normal gait. Psych: Awake, alert, with orientation to person, place and time. Behavior, mood, and affect are within normal limits. 16:11 Musculoskeletal/extremity: Minimal tenderness to the left popliteal fossa, no appreciable swelling, no erythema, full range of motion, pulses, motor, sensation intact. Vital Signs: 13:05 BP 198 / 101; Pulse 95; Resp 18; Temp 97.8; Pulse Ox 98% on R/A; Weight 108.86 kg; ph Height 6 ft. 2 in. ; 13:05 Body Mass Index 30.81 (108.86 kg, 187.96 cm) ph 13:05 pt out of BP meds, will get a prescription for metoprolol today ph MDM: 12:58 Patient medically screened. rt 16:11 Differential Diagnosis Gout, arthritis. Data reviewed: vital signs, nurses notes. Test rt considered but Not performed: Other Details Symptoms not consistent with DVT, ultrasound not indicated. I see no evidence to suggest a septic arthritis, arthrocentesis, blood work is not indicated.. Care significantly affected by the following chronic conditions: Gout. Counseling: I had a detailed discussion with the patient and/or guardian regarding the historical points, exam findings, and any diagnostic results supporting the discharge/admit diagnosis, the need for outpatient follow up. Administered Medications: 13:23 Drug: Dexamethasone IM 10 mg IM once Route: IM; Site: right deltoid; ph 13:25 Follow up: Response: No adverse reaction; Medication administered at discharge. ph 13:24 Drug: Ketorolac IM 15 mg IM once Route: IM; Site: right deltoid; ph 13:25 Follow up: Response: No adverse reaction; Medication administered at discharge. ph Disposition Summary: 10/28/23 13:03 Discharge Ordered Notes: Location: Home rt Problem: an acute exacerbation rt Symptoms: have improved rt Condition: Stable rt Diagnosis - Gout, unspecified rt Followup: rt - With: Private Physician - When: 2 - 3 days - Reason: Discharge Instructions: - Discharge Summary Sheet rt - Gout rt Forms: - Medication Reconciliation Form rt - Antibiotic Education rt - Prescription Opioid Use rt - Patient Portal Instructions rt - Leadership Thank You Letter rt Prescriptions: - colchicine 0.6 mg Oral capsule - take 1 capsule ORAL route once; 30 capsule; Refills: 0, Product Selection rt Permitted - Metoprolol Tartrate 100 mg Oral tablet - take 1 tablet ORAL route once daily with a meal; 30 tablet; Refills: 0, Product rt Selection Permitted - Prednisone 20 mg Oral Tablet - take 2 tablets ORAL route once daily for 5 days; 10 tablet; Refills: 0, Product rt Selection Permitted Signatures: Meaghan Gonzales, RN RN ph Donn Murphy MD MD rt
--- NOTE | 2023-10-28 13:04 | ER ---
Nurse's Notes [facility] Name: Wagner Padron Age: 38 yrs Sex: Male : 1985 Arrival Date: 10/28/2023 Time: 12:21 Bed IW6 Private MD: Diagnosis: Gout, unspecified Presentation: 10/27 12:58 Chief complaint: Patient states: L knee pain and swelling that started last night. ph States, " I think it may be my gout.". Coronavirus screen: Vaccine status: Patient reports receiving the 1st dose of the Covid vaccine. Ebola Screen: No symptoms or risks identified at this time. Initial Sepsis Screen: Does the patient meet any 2 criteria? No. Patient's initial sepsis screen is negative. Does the patient have a suspected source of infection? No. Patient's initial sepsis screen is negative. Risk Assessment: Do you want to hurt yourself or someone else? Patient reports no desire to harm self or others. Onset of symptoms was October 28, 2023. 12:58 Method Of Arrival: Ambulatory 12:58 Acuity: HERMELINDA 4 ph Triage Assessment: 13:02 General: Appears in no apparent distress. Behavior is calm, cooperative. Pain: ph Complains of pain in posterior aspect of left knee. Musculoskeletal: Circulation, motion, and sensation intact. Range of motion: intact in all extremities. Historical: - Allergies: 13:00 Nitroglycerin; ph - Home Meds: 13:00 metoprolol tartrate 100 mg Oral tab 1 tab once daily [Active]; Colchicine Oral for ph acute gouty arthritis [Active]; atorvastatin 20 mg daily [Active]; Furosemide 10mg Oral once daily [Active]; - PMHx: 13:00 CHF; Gout; High Cholesterol; Hypercholesterolemia; Hypertension; ph - PSHx: 13:00 Leg sx; right femur surgery; ph - Immunization history:: Adult Immunizations unknown. - Infectious Disease History:: Denies. - Social history:: Smoking status: Reported history of juuling and/or vaping. - Family history:: not pertinent. Screenin:05 [facility] ED Fall Risk Assessment (Adult) History of falling in the last 3 months, ph including since admission No falls in past 3 months (0 pts) Confusion or Disorientation No (0 pts) Intoxicated or Sedated No (0 pts) Impaired Gait No (0 pts) Mobility Assist Device Used No (0 pt) Altered Elimination No (0 pt) Score/Fall Risk Level 0 - 2 = Low Risk Oriented to surroundings, Maintained a safe environment. Abuse screen: Denies threats or abuse. Denies injuries from another. Nutritional screening: No deficits noted. Tuberculosis screening: No symptoms or risk factors identified. Assessment: 13:05 General: SEE TRIAGE ASSESSMENT. ph Vital Signs: 13:05 BP 198 / 101; Pulse 95; Resp 18; Temp 97.8; Pulse Ox 98% on R/A; Weight 108.86 kg; ph Height 6 ft. 2 in. ; 13:05 Body Mass Index 30.81 (108.86 kg, 187.96 cm) ph 13:05 pt out of BP meds, will get a prescription for metoprolol today ph ED Course: 12:24 Patient arrived in ED. rg4 12:25 Donn Murphy MD is Attending Physician. rt 13:00 Triage completed. ph 13:03 Arm band placed on Patient placed in waiting room, Patient notified of wait time. ph 13:05 Patient has correct armband on for positive identification. ph 13:23 Meaghan Gonzales RN is Primary Nurse. ph 13:24 No provider procedures requiring assistance completed. Patient did not have IV access ph during this emergency room visit. Administered Medications: 13:23 Drug: Dexamethasone IM 10 mg IM once Route: IM; Site: right deltoid; ph 13:25 Follow up: Response: No adverse reaction; Medication administered at discharge. ph 13:24 Drug: Ketorolac IM 15 mg IM once Route: IM; Site: right deltoid; ph 13:25 Follow up: Response: No adverse reaction; Medication administered at discharge. ph Outcome: 13:03 Discharge ordered by . rt 13:24 Discharged to home ambulatory, ph 13:24 Condition: good 13:24 Discharge instructions given to patient, Instructed on discharge instructions, follow up and referral plans. medication usage, Demonstrated understanding of instructions, follow-up care, medications, Prescriptions given X 3, 13:24 Patient left the ED. ph Signatures: Meaghan Gonzales RN RN ph Leonela Stratton rg4 Donn Murphy MD MD rt
[2023-10-28] MEDS ORDERED: KETOROLAC 30 MG/ML INJ ONE (13:16)
[2023-10-28] MEDS ORDERED: dexAMETHasone 10 MG/ML VIAL ONE (13:16)
[2023-10-28 19:39] VITALS: BP 198/101; TEMP 97.8; O2SAT 98
== END 2023-10-28 13:24 | disposition home or self-care (01) ==
LOC: ER 12:21
DX: M10.9 Gout, unspecified (principal)
CPT/HCPCS: J1100

== ENCOUNTER 2023-11-01 06:48 | Emergency (ER) | payer OTHER ==
[2023-11-01] MEDS ORDERED: METOPROLOL TAR 25 MG TAB ONE (07:08)
[2023-11-01] MEDS ORDERED: KETOROLAC 30 MG/ML INJ ONE (07:09)
[2023-11-01] MEDS ORDERED: MORPHINE 4 MG/ML SYR ONE (07:09)
[2023-11-01] MEDS ORDERED: dexAMETHasone 10 MG/ML VIAL ONE (07:09)
--- NOTE | 2023-11-01 07:58 | ER ---
Nurse's Notes [facility] Name: Wagner Padron Age: 38 yrs Sex: Male : 1985 Arrival Date: 11/01/2023 Time: 06:48 Bed 5 Private MD: Diagnosis: Gout, unspecified;Essential (primary) hypertension Presentation: 10/31 06:58 Chief complaint: Patient states: Gout flare up. Coronavirus screen: Vaccine status: vc1 Patient reports receiving the 2nd dose of the covid vaccine. Client denies travel out of the [place] in the last 14 days. Client presents with at least one sign or symptom that may indicate coronavirus-19. Ebola Screen: Patient negative for fever greater than or equal to 101.5 degrees Fahrenheit, and additional compatible Ebola Virus Disease symptoms Patient denies exposure to infectious person. Patient denies travel to an Ebola-affected area in the 21 days before illness onset. No symptoms or risks identified at this time. Initial Sepsis Screen: Does the patient meet any 2 criteria? No. Patient's initial sepsis screen is negative. Does the patient have a suspected source of infection? No. Patient's initial sepsis screen is negative. Risk Assessment: Do you want to hurt yourself or someone else? Patient reports no desire to harm self or others. Onset of symptoms was November 01, 2023. 06:58 Method Of Arrival: Ambulatory 1 06:58 Acuity: HERMELINDA 3 vc1 Triage Assessment: 07:00 General: Appears in no apparent distress. uncomfortable, obese, well developed, vc1 Behavior is calm, cooperative, appropriate for age. Pain: Complains of pain in left first toe Pain does not radiate. Pain currently is 8 out of 10 on a pain scale. Aggravated by increased activity, repositioning, weight bearing, Noted to be grimacing, resistant to movement. Neuro: Level of Consciousness is awake, alert, obeys commands, Oriented to person, place, time, situation, Appropriate for age. Respiratory: Airway is patent Respiratory effort is even, unlabored, Respiratory pattern is regular, symmetrical. Derm: Skin is intact, is healthy with good turgor, Skin is dry, Skin is normal, Skin temperature is warm. Historical: - Allergies: 06:59 Nitroglycerin; vc1 - PMHx: 06:59 CHF; Gout; High Cholesterol; Hypercholesterolemia; Hypertension; vc1 - PSHx: 06:59 Leg sx; right femur surgery; vc1 - Immunization history:: Client reports having NOT received the Covid vaccine. - Infectious Disease History:: Denies. - Social history:: Smoking status: Reported history of juuling and/or vaping. - Family history:: not pertinent. - Hospitalizations: : No recent hospitalization is reported. Screenin:00 Abuse screen: Denies threats or abuse. Nutritional screening: No deficits noted. vc1 Tuberculosis screening: No symptoms or risk factors identified. 07:21 [facility] ED Fall Risk Assessment (Adult) History of falling in the last 3 months, mb9 including since admission No falls in past 3 months (0 pts) Confusion or Disorientation No (0 pts) Intoxicated or Sedated No (0 pts) Impaired Gait No (0 pts) Mobility Assist Device Used No (0 pt) Altered Elimination No (0 pt) Score/Fall Risk Level 0 - 2 = Low Risk Oriented to surroundings, Maintained a safe environment, Educated pt \T\ family on fall prevention, incl call for assistance when getting out of bed. Assessment: 06:53 General: Pt is independently ambulatory to the room. Pt is alert and oriented x 4, kd3 respirations are even and unlabored, skin is warm and dry, pt is managing his own airway and secretions. PT is speaking in full and complete sentences. Pt is currently being triaged in the room by triage nurse. . Neuro: Level of Consciousness is awake, alert, obeys commands, Oriented to person, place, time, situation. Cardiovascular: Patient's skin is warm and dry. Respiratory: Airway is patent Trachea midline Respiratory effort is even, unlabored, Respiratory pattern is regular, symmetrical. 07:15 General: Appears in no apparent distress. Behavior is calm, cooperative. Pain: mb9 Complains of pain in left foot and left first toe Pain currently is 10 out of 10 on a pain scale. Quality of pain is described as throbbing, Pain began gradually, Is intermittent, Aggravated by increased activity, weight bearing. Neuro: Varela Agitation-Sedation Scale (RASS): 0 - Alert and Calm Level of Consciousness is awake, alert, obeys commands, Oriented to person, place, time, situation, Appropriate for age. Respiratory: Airway is patent. Derm: Skin is pink, warm \T\ dry. 07:15 Musculoskeletal: Range of motion: intact in all extremities. mb9 Vital Signs: 06:58 BP 218 / 151; Pulse 104; Resp 20; Temp 98.5; Pulse Ox 99% ; Weight 108.86 kg; Height 6 vc1 ft. 0 in. ; Pain 8/10; 08:12 BP 200 / 105; Pulse 74; Resp 18; Pulse Ox 100% on R/A; mb9 06:58 Body Mass Index 32.55 (108.86 kg, 182.88 cm) vc1 06:58 Pain Scale: Adult vc1 ED Course: 06:50 Patient arrived in ED. gm2 06:59 Triage completed. vc1 07:00 Kirby Cortes MD is Attending Physician. rn 07:00 Arm band placed on right wrist. vc1 07:00 Patient has correct armband on for positive identification. Bed in low position. Call vc1 light in reach. Pulse ox on. NIBP on. 07:06 Niurka Montoya RN is Primary Nurse. mb9 07:20 Inserted saline lock: 22 gauge in right antecubital area, using aseptic technique. mb9 07:22 No provider procedures requiring assistance completed. mb9 08:12 IV discontinued, intact, bleeding controlled, No redness/swelling at site. Pressure mb9 dressing applied. Administered Medications: 07:12 Drug: Decadron - Dexamethasone IVP 10 mg IVP once Route: IVP; Site: right antecubital; mb9 08:13 Follow up: Response: No adverse reaction mb9 07:15 Drug: Ketorolac IVP 30 mg IVP once Route: IVP; Site: right antecubital; mb9 08:13 Follow up: Response: No adverse reaction mb9 07:21 Drug: morphine IVP or IV 4 mg IVP once over 4 mins Route: IVP; Infused Over: 4 mins; mb9 Site: right antecubital; 08:13 Follow up: Response: No adverse reaction mb9 07:21 Drug: Metoprolol PO 25 mg PO once Route: PO; mb9 08:13 Follow up: Response: No adverse reaction mb9 Medication: 07:22 VIS not applicable for this client. mb9 Outcome: 07:58 Discharge ordered by . pippa 08:12 Discharged to home ambulatory, mb9 08:12 Condition: stable 08:12 Discharge instructions given to patient, Instructed on discharge instructions, follow up and referral plans. Demonstrated understanding of instructions, follow-up care, medications, Prescriptions given X 2 08:13 Patient left the ED. mb9 Signatures: Kirby Cortes MD MD rn Doucette, Kyli RN RN kd3 Lisa Molina RN RN vc1 Niurka Montoya RN RN mb9 Jazzy Villarreal
--- NOTE | 2023-11-01 07:58 | EDPHYS ---
Physician Documentation [facility] Name: Wagner Padron Age: 38 yrs Sex: Male : 1985 Arrival Date: 11/01/2023 Time: 06:48 Bed 5 Private MD: ED Physician Kirby Cortes HPI: 10/31 07:08 This 38 yrs old Black Male presents to ER via Ambulatory with complaints of Foot Pain. rn 07:08 The patient presents with pain. The complaints affect the right foot. Onset: The rn symptoms/episode began/occurred last night. Modifying factors: The symptoms are alleviated by nothing, the symptoms are aggravated by weight bearing, movement. Severity of symptoms: At their worst the symptoms were moderate, in the emergency department the symptoms are unchanged. The patient has experienced similar episodes in the past. Pt reports hx of gout, has flares in his right big toe. Started again last night while working 12 hour shift. No trauma. No wound. No infectious symptoms. Identical to previous episodes. Also reports has not been taking his BP meds but has script that he is planning on filling today. . Historical: - Allergies: 06:59 Nitroglycerin; vc1 - PMHx: 06:59 CHF; Gout; High Cholesterol; Hypercholesterolemia; Hypertension; vc1 - PSHx: 06:59 Leg sx; right femur surgery; vc1 - Immunization history:: Client reports having NOT received the Covid vaccine. - Infectious Disease History:: Denies. - Social history:: Smoking status: Reported history of juuling and/or vaping. - Family history:: not pertinent. - Hospitalizations: : No recent hospitalization is reported. ROS: 07:08 Constitutional: Negative for fever, chills, and weight loss, Neck: Negative for injury, rn pain, and swelling, Cardiovascular: Negative for chest pain, palpitations, and edema, Respiratory: Negative for shortness of breath, cough, wheezing, and pleuritic chest pain, Abdomen/GI: Negative for abdominal pain, nausea, vomiting, diarrhea, and constipation, Back: Negative for injury and pain, MS/Extremity: + right great toe pain Skin: Negative for injury, rash, and discoloration, Neuro: Negative for headache, weakness, numbness, tingling, and seizure, Exam: 07:08 Constitutional: This is a well developed, well nourished patient who is awake, alert, rn and in no acute distress. Cardiovascular: Tachycardic, regular. No pulse deficits. MS/ Extremity: Pulses equal, no cyanosis. Vital Signs: 06:58 BP 218 / 151; Pulse 104; Resp 20; Temp 98.5; Pulse Ox 99% ; Weight 108.86 kg; Height 6 vc1 ft. 0 in. ; Pain 8/10; 08:12 BP 200 / 105; Pulse 74; Resp 18; Pulse Ox 100% on R/A; mb9 06:58 Body Mass Index 32.55 (108.86 kg, 182.88 cm) vc1 06:58 Pain Scale: Adult vc1 MDM: 07:00 Patient medically screened. rn 07:57 Differential diagnosis: arthritis, gout. Data reviewed: vital signs, nurses notes, old rn medical records, and as a result, I will discharge patient. Counseling: I had a detailed discussion with the patient and/or guardian regarding the historical points, exam findings, and any diagnostic results supporting the discharge/admit diagnosis, the need for outpatient follow up, to return to the emergency department if symptoms worsen or persist or if there are any questions or concerns that arise at home. Response to treatment: the patient's symptoms have markedly improved after treatment, and as a result, I will discharge patient. Special discussion: I discussed with the patient/guardian in detail that at this point there is no indication for admission to the hospital. It is understood, however, that if the symptoms persist or worsen the patient needs to return immediately for re-evaluation. Based on the history and exam findings, there is no indication for further emergent testing or inpatient evaluation. I discussed with the patient/guardian the need to see the primary care provider for further evaluation of the symptoms. 10/31 07:05 Order name: IV Start; Complete Time: 07:20 rn Administered Medications: 07:12 Drug: Decadron - Dexamethasone IVP 10 mg IVP once Route: IVP; Site: right antecubital; mb9 08:13 Follow up: Response: No adverse reaction mb9 07:15 Drug: Ketorolac IVP 30 mg IVP once Route: IVP; Site: right antecubital; mb9 08:13 Follow up: Response: No adverse reaction mb9 07:21 Drug: morphine IVP or IV 4 mg IVP once over 4 mins Route: IVP; Infused Over: 4 mins; mb9 Site: right antecubital; 08:13 Follow up: Response: No adverse reaction mb9 07:21 Drug: Metoprolol PO 25 mg PO once Route: PO; mb9 08:13 Follow up: Response: No adverse reaction mb9 Disposition Summary: 11/01/23 07:58 Discharge Ordered Notes: Location: Home rn Problem: an acute exacerbation rn Symptoms: have improved rn Condition: Stable rn Diagnosis - Gout, unspecified rn - Essential (primary) hypertension rn Followup: rn - With: Private Physician - When: As needed - Reason: Recheck today's complaints, Re-evaluation by your physician Discharge Instructions: - Discharge Summary Sheet rn - Gout rn - Hypertension, Adult rn - 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
[2023-11-01 08:17] VITALS: TEMP 98.5
[2023-11-01 08:32] VITALS: BP 200/105; O2SAT 100
== END 2023-11-01 08:13 | disposition home or self-care (01) ==
LOC: ER 06:48
DX: M10.9 Gout, unspecified (principal); I10 Essential (primary) hypertension
CPT/HCPCS: 96375; 96374; 99284; J1100

== ENCOUNTER 2023-12-07 08:30 | Emergency (ER) | payer OTHER ==
--- NOTE | 2023-12-07 08:49 | ER ---
Nurse's Notes [facility] Name: Wagner Padron Age: 38 yrs Sex: Male : 1985 Arrival Date: 12/07/2023 Time: 08:30 Bed 14 Private MD: Diagnosis: Gout, unspecified Presentation: 12/06 08:39 Chief complaint: Patient states: Complains of pain and swelling to left knee, symptoms rs5 started yesterday. Denies fall or recent injury to affected extremity. Pt states "this has happened before, I think it's my gout that's acting up". Coronavirus screen: At this time, the client does not indicate any symptoms associated with coronavirus-19. Ebola Screen: No symptoms or risks identified at this time. Initial Sepsis Screen: Does the patient meet any 2 criteria? No. Patient's initial sepsis screen is negative. Does the patient have a suspected source of infection? No. Patient's initial sepsis screen is negative. Risk Assessment: Do you want to hurt yourself or someone else? Patient reports no desire to harm self or others. Onset of symptoms was December 07, 2023. 08:39 Method Of Arrival: Wheelchair rs5 08:39 Acuity: HERMELINDA 4 rs5 Triage Assessment: 08:41 General: Appears in no apparent distress. uncomfortable, Behavior is calm, cooperative. rs5 Pain: Complains of pain in left knee Pain currently is 8 out of 10 on a pain scale. Quality of pain is described as aching, Is continuous. Historical: - Allergies: 08:41 Nitroglycerin; rs5 - PMHx: 08:41 Gout; CHF; High Cholesterol; Hypercholesterolemia; Hypertension; rs5 - PSHx: 08:41 Leg sx; right femur surgery; rs5 - Immunization history:: Adult Immunizations up to date. - Infectious Disease History:: Denies. - Social history:: Smoking status: Patient denies any tobacco usage or history of. - Family history:: not pertinent. Screenin:42 [facility] ED Fall Risk Assessment (Adult) History of falling in the last 3 months, rs5 including since admission No falls in past 3 months (0 pts) Confusion or Disorientation No (0 pts) Intoxicated or Sedated No (0 pts) Impaired Gait Yes (1 pt) Mobility Assist Device Used Yes (1 pt) Altered Elimination No (0 pt) Score/Fall Risk Level 0 - 2 = Low Risk Oriented to surroundings, Maintained a safe environment. Abuse screen: Denies threats or abuse. Nutritional screening: No deficits noted. Tuberculosis screening: No symptoms or risk factors identified. Assessment: 08:43 General: Appears in no apparent distress. uncomfortable, Behavior is calm, cooperative. rs5 Pain: Complains of pain in left knee Pain currently is 8 out of 10 on a pain scale. Quality of pain is described as aching, Is continuous. Neuro: Level of Consciousness is awake, alert, obeys commands, Oriented to person, place, time, situation. Cardiovascular: Patient's skin is warm and dry. Respiratory: Airway is patent Respiratory effort is even, unlabored, Respiratory pattern is regular, symmetrical. GI: No signs and/or symptoms were reported involving the gastrointestinal system. : No signs and/or symptoms were reported regarding the genitourinary system. EENT: No signs and/or symptoms were reported regarding the EENT system. Derm: Skin is intact, Skin is pink, warm \\T\\ dry. Musculoskeletal: Range of motion: limited in left knee. 08:45 Reassessment: provider notified of elevated BP. rs5 08:53 Reassessment: Patient and/or family updated on plan of care and expected duration. Pain rs5 level reassessed. Patient is alert, oriented x 3, equal unlabored respirations, skin warm/dry/pink. Vital Signs: 08:39 BP 203 / 146; Pulse 83; Resp 17; Temp 97.8(O); Pulse Ox 98% on R/A; rs5 08:50 BP 180 / 103; rs5 ED Course: 08:33 Patient arrived in ED. im 08:35 Donn Murphy MD is Attending Physician. rt 08:39 Mario Tinsley, SAMANTHA is Primary Nurse. rs5 08:41 Triage completed. rs5 08:42 Patient has correct armband on for positive identification. Placed in gown. Bed in low rs5 position. Call light in reach. Side rails up X2. 08:42 No provider procedures requiring assistance completed. rs5 08:55 Patient did not have IV access during this emergency room visit. rs5 Administered Medications: 08:48 Drug: Dexamethasone IM 10 mg IM once Route: IM; Site: left ventrogluteal; rs5 08:58 Follow up: Response: No adverse reaction rs5 08:48 Drug: [place] PO 10 mg-325 mg 1 tabs PO once Route: PO; rs5 Medication: 08:42 VIS not applicable for this client. rs5 Outcome: 08:49 Discharge ordered by . rt 08:55 Discharged to home via wheelchair, rs5 08:55 Condition: stable rs5 08:55 Discharge instructions given to patient, family, Instructed on discharge instructions, follow up and referral plans. medication usage, Demonstrated understanding of instructions, follow-up care, medications, Prescriptions given X 1, 08:59 Patient left the ED. rs5 Signatures: Donn Murphy MD MD rt Mario Tinsley RN RN rs5 Rosario Fontanez Corrections: (The following items were deleted from the chart) 08:41 08:39 Pulse 83bpm; Resp 17bpm; Pulse Ox 98% RA; Temp 97.8F Oral; rs5 rs5
--- NOTE | 2023-12-07 08:49 | EDPHYS ---
Physician Documentation [facility] Name: Wagner Padron Age: 38 yrs Sex: Male : 1985 Arrival Date: 12/07/2023 Time: 08:30 Bed 14 Private MD: ED Physician Donn Murphy HPI: 12/06 08:51 This 38 yrs old Black Male presents to ER via Wheelchair with complaints of Pain - gout rt flare up. 08:51 Patient presents to the ED with pain to the left knee consistent with prior episodes of rt gout. Patient states that he bumped his leg yesterday causing the flare. Denies fever, chills. States that he feels well otherwise, denies other acute complaints, symptoms are moderate in severity, no other aggravating or alleviating factors.. Historical: - Allergies: 08:41 Nitroglycerin; rs5 - PMHx: 08:41 Gout; CHF; High Cholesterol; Hypercholesterolemia; Hypertension; rs5 - PSHx: 08:41 Leg sx; right femur surgery; rs5 - Immunization history:: Adult Immunizations up to date. - Infectious Disease History:: Denies. - Social history:: Smoking status: Patient denies any tobacco usage or history of. - Family history:: not pertinent. ROS: 08:51 Constitutional: Negative for fever, chills, and weight loss, Cardiovascular: Negative rt for chest pain, palpitations, and edema, Respiratory: Negative for shortness of breath, cough, wheezing, and pleuritic chest pain, Abdomen/GI: Negative for abdominal pain, nausea, vomiting, diarrhea, and constipation, Skin: Negative for injury, rash, and discoloration, Neuro: Negative for headache, weakness, numbness, tingling, and seizure, 08:51 MS/extremity: Positive for pain, swelling, Exam: 08:51 Constitutional: This is a well developed, well nourished patient who is awake, alert, rt and in no acute distress. Head/Face: Normocephalic, atraumatic. Chest/axilla: Normal chest wall appearance and motion. Nontender with no deformity. No lesions are appreciated. Cardiovascular: Regular rate and rhythm with a normal S1 and S2. No gallops, murmurs, or rubs. Normal PMI, no JVD. No pulse deficits. Respiratory: Lungs have equal breath sounds bilaterally, clear to auscultation and percussion. No rales, rhonchi or wheezes noted. No increased work of breathing, no retractions or nasal flaring. Abdomen/GI: Soft, non-tender, with normal bowel sounds. No distension or tympany. No guarding or rebound. No evidence of tenderness throughout. Skin: Warm, dry with normal turgor. Normal color with no rashes, no lesions, and no evidence of cellulitis. Neuro: Awake and alert, GCS 15, oriented to person, place, time, and situation. Cranial nerves II-XII grossly intact. Motor strength 5/5 in all extremities. Sensory grossly intact. Cerebellar exam normal. Normal gait. 08:51 Musculoskeletal/extremity: Swelling with tenderness to the left knee, no deformities noted, no overlying skin changes, no warmth.. Vital Signs: 08:39 BP 203 / 146; Pulse 83; Resp 17; Temp 97.8(O); Pulse Ox 98% on R/A; rs5 08:50 BP 180 / 103; rs5 MDM: 08:43 Patient medically screened. rt 08:51 Differential Diagnosis Gout. Data reviewed: vital signs, nurses notes. Test considered rt but Not performed: Other Details Is noted that the patient's blood pressure is elevated, states that he did not take his antihypertensives this morning, states that he will take them when he gets home. States that he feels well otherwise, does not feel similar that he did when he was admitted for hypertensive emergency. Patient does not wish to have laboratory evaluation at this time, believe this is reasonable given asymptomatic hypertension with no other signs of endorgan dysfunction. Patient with a sterile arthrocentesis last month, do not believe that repeat arthrocentesis is indicated, there are no signs of a septic arthritis.. Care significantly affected by the following chronic conditions: Hypertension. Counseling: I had a detailed discussion with the patient and/or guardian regarding the historical points, exam findings, and any diagnostic results supporting the discharge/admit diagnosis, the presence of at least one elevated blood pressure reading (>120/80) during this emergency department visit, the need for outpatient follow up, to return to the emergency department if symptoms worsen or persist or if there are any questions or concerns that arise at home. Response to treatment: the patient's symptoms have markedly improved after treatment. Administered Medications: 08:48 Drug: Dexamethasone IM 10 mg IM once Route: IM; Site: left ventrogluteal; rs5 08:58 Follow up: Response: No adverse reaction rs5 08:48 Drug: [place] PO 10 mg-325 mg 1 tabs PO once Route: PO; rs5 Disposition Summary: 12/07/23 08:49 Discharge Ordered Notes: Location: Home rt Problem: new rt Symptoms: have improved rt Condition: Stable rt Diagnosis - Gout, unspecified rt Followup: rt - With: Private Physician - When: 2 - 3 days - Reason: Discharge Instructions: - Discharge Summary Sheet rt - Gout rt Forms: - Medication Reconciliation Form rt - Antibiotic Education rt - Prescription Opioid Use rt - Patient Portal Instructions rt - Leadership Thank You Letter rt Prescriptions: - colchicine 0.6 mg Oral capsule - take 1 capsule ORAL route daily as needed; 14 capsule; Refills: 0, Product rt Selection Permitted Signatures: Donn Murphy MD MD rt Mario Tinsley, RN RN rs5
[2023-12-07] MEDS ORDERED: HYDROCODONE/APAP 10/325 TAB ONE (08:51)
[2023-12-07] MEDS ORDERED: dexAMETHasone 10 MG/ML VIAL ONE (08:51)
[2023-12-07 11:13] VITALS: BP 203/146; TEMP 97.8; O2SAT 98
== END 2023-12-07 08:59 | disposition home or self-care (01) ==
LOC: ER 08:30
DX: M10.9 Gout, unspecified (principal)
CPT/HCPCS: 96372; 99284; J1100

== ENCOUNTER 2023-12-18 04:36 | Emergency (ER) | payer OTHER ==
[2023-12-18] MEDS ORDERED: ALBUTEROL 2.5 MG/3 ML NEB SOL ONE (04:59)
[2023-12-18] MEDS ORDERED: METOPROLOL TAR 50 MG TAB ONE (04:59)
[2023-12-18] MEDS ORDERED: predniSONE 20 MG TAB ONE (04:59)
[2023-12-18] MEDS ORDERED: PROMETHAZINE 25 MG TABLET ONE (05:00)
[2023-12-18] MEDS ORDERED: CODEINE 30MG/APAP 300MG TAB ONE (05:00)
[2023-12-18] MEDS ORDERED: cloNIDine HCL 0.1 MG TAB ONE (05:00)
[2023-12-18] MEDS ORDERED: GUAIFENESIN/DM 5 ML UCUP ONE (05:01)
[2023-12-18 05:49] LABS: SARS-CoV-2 Antigen CONTROL BLUE LINE VIS/BG OK; SARS-CoV-2 Antigen Rapid Res Negative (Negative)
[2023-12-18] MEDS ORDERED: HYDRALAZINE HCL 25 MG TABLET ONE (05:54)
--- NOTE | 2023-12-18 06:41 | ER ---
Nurse's Notes [facility] Name: Wagner Padron Age: 38 yrs Sex: Male : 1985 Arrival Date: 12/18/2023 Time: 04:36 Bed 6 Private MD: Diagnosis: Essential (primary) hypertension;Hypertensive crisis, upper respiratory infection Presentation: 12/17 04:49 Chief complaint: Patient states: c/o cough, congestion, runny nose since yesterday al5 morning that has only gotten progressively worse. Coronavirus screen: congestion, cough unrelated to allergies, headache, runny nose. Ebola Screen: No symptoms or risks identified at this time. Resp Distress? No respiratory distress is noted at this time. Initial Sepsis Screen: Does the patient meet any 2 criteria? HR > 90 bpm. Does the patient have a suspected source of infection? No. Patient's initial sepsis screen is negative. Risk Assessment: Do you want to hurt yourself or someone else? Patient reports no desire to harm self or others. Onset of symptoms was December 15, 2023. 04:49 Method Of Arrival: Ambulatory al5 04:49 Acuity: HERMELINDA 3 al5 Triage Assessment: 04:51 General: Appears in no apparent distress. Behavior is calm, cooperative. Pain: al5 Complains of pain in head Pain currently is 3 out of 10 on a pain scale. EENT: Reports nasal congestion cough, runny nose. Neuro: Level of Consciousness is awake, alert, obeys commands, Oriented to person, place, time, situation. Cardiovascular: Patient's skin is warm and dry. Respiratory: Airway is patent Respiratory effort is even, unlabored, Respiratory pattern is regular, symmetrical. GI: No signs and/or symptoms were reported involving the gastrointestinal system. : No signs and/or symptoms were reported regarding the genitourinary system. Derm: Skin is intact, Skin is pink, warm \T\ dry. normal. Musculoskeletal: No signs and/or symptoms reported regarding the musculoskeletal system. Historical: - Allergies: 04:50 Nitroglycerin; al5 - PMHx: 04:50 CHF; Gout; High Cholesterol; Hypercholesterolemia; Hypertension; al5 - PSHx: 04:50 Leg sx; right femur surgery; al5 - Immunization history:: Adult Immunizations up to date. - Infectious Disease History:: Denies. - Social history:: Smoking status: Reported history of juuling and/or vaping. Screenin:52 [facility] ED Fall Risk Assessment (Adult) History of falling in the last 3 months, al5 including since admission No falls in past 3 months (0 pts) Confusion or Disorientation No (0 pts) Intoxicated or Sedated No (0 pts) Impaired Gait No (0 pts) Mobility Assist Device Used No (0 pt) Altered Elimination No (0 pt) Score/Fall Risk Level 0 - 2 = Low Risk Oriented to surroundings, Maintained a safe environment, Hourly rounding (assess needs \T\ fall precautionary measures) done. Abuse screen: Denies threats or abuse. Denies injuries from another. Nutritional screening: No deficits noted. Tuberculosis screening: No symptoms or risk factors identified. Assessment: 04:52 Reassessment: see triage assessment. Cardiovascular: Patient's skin is warm and dry. al5 Respiratory: Airway is patent Respiratory effort is even, unlabored, Respiratory pattern is regular, symmetrical. 05:46 Reassessment: Patient appears in no apparent distress at this time. Patient and/or al5 family updated on plan of care and expected duration. Pain level reassessed. Patient is alert, oriented x 3, equal unlabored respirations, skin warm/dry/pink. Patient states symptoms have improved. blood pressure still elevated post medications, MD notified.. 06:39 Reassessment: Patient appears in no apparent distress at this time. No changes from al5 previously documented assessment. Patient and/or family updated on plan of care and expected duration. Pain level reassessed. Patient is alert, oriented x 3, equal unlabored respirations, skin warm/dry/pink. Vital Signs: 04:49 BP 214 / 145; Pulse 102; Resp 20; Temp 99; Pulse Ox 98% on R/A; Weight 104.33 kg; al5 Height 6 ft. 0 in. ; Pain 4/10; 05:00 BP 210 / 143; Pulse 97; Resp 18; Pulse Ox 100% on R/A; al5 05:30 BP 205 / 150; Pulse 92; Resp 18; Pulse Ox 99% on R/A; al5 06:09 BP 170 / 128; Pulse 88; Resp 18; Pulse Ox 98% on R/A; al5 06:39 BP 168 / 120; Pulse 78; Resp 18; Pulse Ox 98% on R/A; al5 04:49 Body Mass Index 31.19 (104.33 kg, 182.88 cm) al5 04:49 Pain Scale: Adult al5 ED Course: 04:39 Patient arrived in ED. jj6 04:45 Amauri Crowley MD is Attending Physician. sp4 04:48 Abi Florez, SAMANTHA is Primary Nurse. al5 04:50 Triage completed. al5 04:52 Arm band placed on right wrist. Patient placed in the treatment room, on a stretcher. al5 04:52 No provider procedures requiring assistance completed. al5 04:53 Patient has correct armband on for positive identification. Bed in low position. Call al5 light in reach. Side rails up X 1. Provided Education on: processes and procedures. 05:05 Chest Pa And Lat (2 Views) XRAY In Process Unspecified. EDMS 05:12 SARS RAPID Sent. al5 06:40 Osbaldo Quinn DO is Referral Physician. sp4 06:59 Patient did not have IV access during this emergency room visit. al5 Administered Medications: 05:12 Drug: Dextromethorphan-Guaifenesin PO Liquid 10 mg-100 mg/5 mL 10 ml PO once Route: PO; al5 05:44 Follow up: Response: No adverse reaction; Marked relief of symptoms al5 05:45 Follow up: Response: No adverse reaction; Marked relief of symptoms al5 05:12 Drug: Acetaminophen-Codeine PO (300 mg-30 mg) 2 tabs PO once; RASS on ADMIN: Combtv4, al5 Very Agttd3, Agttd2, Rstlss1, AlertClm0, Drwsy-1, Lt Sdtn-2, Mod Sdtn-3, Dp Sdtn-4, UnArsble-5 Route: PO; 05:43 Follow up: Response: No adverse reaction; Pain is decreased al5 05:12 Drug: Albuterol Inhalation 2.5 mg Inhalation once Route: Inhalation; al5 05:12 Drug: predniSONE PO 60 mg PO once Route: PO; al5 05:44 Follow up: Response: No adverse reaction; Marked relief of symptoms al5 05:12 Drug: Promethazine PO 25 mg PO once Route: PO; al5 05:44 Follow up: Response: No adverse reaction; Blood pressure is unchanged al5 05:44 Follow up: Response: No adverse reaction; Nausea is decreased al5 05:12 Drug: Metoprolol PO 100 mg PO once Route: PO; al5 05:43 Follow up: Response: No adverse reaction; Blood pressure is unchanged al5 05:12 Drug: cloNIDine PO 0.3 mg PO once Route: PO; al5 05:44 Follow up: Response: No adverse reaction; Blood pressure is unchanged al5 05:55 Drug: HydrALAZINE PO 50 mg PO once Route: PO; al5 07:00 Follow up: Response: No adverse reaction; Blood pressure is lowered al5 Medication: 04:53 VIS not applicable for this client. al5 Outcome: 06:41 Discharge ordered by . sp4 07:00 Discharged to home ambulatory, al5 07:00 Condition: good 07:00 Discharge instructions given to patient, Instructed on discharge instructions, follow up and referral plans. medication usage, Demonstrated understanding of instructions, follow-up care, medications, Prescriptions given X 4, 07:00 Patient left the ED. al5 Signatures: Dispatcher [employer] EDMS Chantel Edmond jj6 Amauri Crowley MD MD sp4 Abi Florez RN RN al5
--- NOTE | 2023-12-18 06:41 | EDPHYS ---
Physician Documentation [facility] Name: Wagner Padron Age: 38 yrs Sex: Male : 1985 Arrival Date: 12/18/2023 Time: 04:36 Bed 6 Private MD: ED Physician Amauri Crowley HPI: 12/17 04:45 This 38 yrs old Black Male presents to ER via Unassigned with complaints of Cough, sp4 Congestion. Historical: - Allergies: 04:50 Nitroglycerin; al5 - PMHx: 04:50 CHF; Gout; High Cholesterol; Hypercholesterolemia; Hypertension; al5 - PSHx: 04:50 Leg sx; right femur surgery; al5 - Immunization history:: Adult Immunizations up to date. - Infectious Disease History:: Denies. - Social history:: Smoking status: Reported history of juuling and/or vaping. Vital Signs: 04:49 BP 214 / 145; Pulse 102; Resp 20; Temp 99; Pulse Ox 98% on R/A; Weight 104.33 kg; al5 Height 6 ft. 0 in. ; Pain 4/10; 05:00 BP 210 / 143; Pulse 97; Resp 18; Pulse Ox 100% on R/A; al5 05:30 BP 205 / 150; Pulse 92; Resp 18; Pulse Ox 99% on R/A; al5 06:09 BP 170 / 128; Pulse 88; Resp 18; Pulse Ox 98% on R/A; al5 06:39 BP 168 / 120; Pulse 78; Resp 18; Pulse Ox 98% on R/A; al5 04:49 Body Mass Index 31.19 (104.33 kg, 182.88 cm) al5 04:49 Pain Scale: Adult al5 MDM: 04:47 Patient medically screened. sp4 06:36 ED course: EXAM DESCRIPTION: Chest Pa And Lat (2 Views) CLINICAL HISTORY: COUGH sp4 COMPARISON: None TECHNIQUE: PA and lateral views of the chest. FINDINGS: Lung volumes adequate. Cardiac silhouette is normal in size. No pneumothorax. No large pleural effusion. No focal consolidation. No acute bony finding. IMPRESSION: No evidence of acute cardiopulmonary disease. . 12/17 04:47 Order name: SARS RAPID; Complete Time: 06:12 sp4 12/17 04:46 Order name: Chest Pa And Lat (2 Views) XRAY sp4 Administered Medications: 05:12 Drug: Dextromethorphan-Guaifenesin PO Liquid 10 mg-100 mg/5 mL 10 ml PO once Route: PO; al5 05:44 Follow up: Response: No adverse reaction; Marked relief of symptoms al5 05:45 Follow up: Response: No adverse reaction; Marked relief of symptoms al5 05:12 Drug: Acetaminophen-Codeine PO (300 mg-30 mg) 2 tabs PO once; RASS on ADMIN: Combtv4, al5 Very Agttd3, Agttd2, Rstlss1, AlertClm0, Drwsy-1, Lt Sdtn-2, Mod Sdtn-3, Dp Sdtn-4, UnArsble-5 Route: PO; :43 Follow up: Response: No adverse reaction; Pain is decreased al5 05:12 Drug: Albuterol Inhalation 2.5 mg Inhalation once Route: Inhalation; al5 05:12 Drug: predniSONE PO 60 mg PO once Route: PO; al5 05:44 Follow up: Response: No adverse reaction; Marked relief of symptoms al5 05:12 Drug: Promethazine PO 25 mg PO once Route: PO; al5 05:44 Follow up: Response: No adverse reaction; Blood pressure is unchanged al5 05:44 Follow up: Response: No adverse reaction; Nausea is decreased al5 05:12 Drug: Metoprolol PO 100 mg PO once Route: PO; al5 05:43 Follow up: Response: No adverse reaction; Blood pressure is unchanged al5 05:12 Drug: cloNIDine PO 0.3 mg PO once Route: PO; al5 05:44 Follow up: Response: No adverse reaction; Blood pressure is unchanged al5 05:55 Drug: HydrALAZINE PO 50 mg PO once Route: PO; al5 07:00 Follow up: Response: No adverse reaction; Blood pressure is lowered al5 Disposition Summary: 12/18/23 06:41 Discharge Ordered Notes: Please see Primary MD for BP control Location: Home sp4 Problem: new sp4 Symptoms: have improved sp4 Condition: Stable sp4 Diagnosis - Essential (primary) hypertension sp4 - Hypertensive crisis, upper respiratory infection sp4 Followup: sp4 - With: Osbaldo Quinn DO - When: 7 - 10 days - Reason: Recheck today's complaints Discharge Instructions: - Discharge Summary Sheet sp4 - Hypertension, Adult, [id number] sp4 Forms: - Patient Portal Instructions sp4 Prescriptions: - Ventolin HFA 90 mcg/actuation Inhalation HFA Aerosol Inhaler - inhale 2 inhalation INHALATION route every 6 hours Dispense with Spacer, Use sp4 every 6 hours PRN cough or dyspnea; 1 unit; Refills: 0, Product Selection Permitted - dextromethorphan-guaifenesin 60-1,200 mg Oral Tablet, Extended Release 12 hr - take 1 tablet ORAL route every 12 hours PRN cough; 40 tablet; Refills: 0, sp4 Product Selection Permitted - Claritin 10 mg Oral tablet - take 1 tablet ORAL route once daily As needed; 30 tablet; Refills: 0, Product sp4 Selection Permitted - Metoprolol Tartrate 100 mg Oral tablet - take 1 tablet ORAL route 2 times per day Twice daily; 180 tablet; Refills: 0, sp4 Product Selection Permitted Signatures: Dispatcher [employer] Amauri Waller MD MD sp4 Abi Florez RN RN al5
[2023-12-18 07:04] VITALS: TEMP 99
[2023-12-18 07:07] VITALS: O2SAT 98
[2023-12-18 07:09] VITALS: BP 168/120
--- NOTE | 2023-12-18 19:39 | RAD REPORT ---
EXAM DESCRIPTION: RAD - Chest Pa And Lat (2 Views) - 12/18/2023 5:03 am CLINICAL HISTORY: COUGH COMPARISON: None TECHNIQUE: PA and lateral views of the chest. FINDINGS: Lung volumes adequate. Cardiac silhouette is normal in size. No pneumothorax. No large pleural effusion. No focal consolidation. No acute bony finding. IMPRESSION: No evidence of acute cardiopulmonary disease. Electronically signed by: Grace Eaton MD 12/18/2023 06:33 AM CDT Z9 Due to temporary technical issues with the PACS/Fluency reporting system, reports are being signed by the in house radiologists without review as a courtesy to insure prompt reporting. The interpreting radiologist is fully responsible for the content of the report.
== END 2023-12-18 07:00 | disposition home or self-care (01) ==
LOC: ER 04:36
DX: J06.9 Acute upper respiratory infection, unspecified (principal); I16.9 Hypertensive crisis, unspecified; I10 Essential (primary) hypertension; I50.9 Heart failure, unspecified; Z11.52 Encounter for screening for COVID-19
CPT/HCPCS: 36415; 71046; 87811; Q0169; J7512; J7613

== ENCOUNTER 2024-01-13 01:14 | Emergency (ER) | payer OTHER ==
--- NOTE | 2024-01-13 01:35 | EDPHYS ---
Physician Documentation [facility] Name: Wagner Padron Age: 38 yrs Sex: Male : 1985 Arrival Date: 01/13/2024 Time: 01:14 Bed 12 Private MD: ED Physician Denilson Traore HPI: 01/12 01:36 This 38 yrs old Black Male presents to ER via Unassigned with complaints of Foot Pain. ec2 01:36 Patient arrives today for evaluation of left knee and left foot pain. Patient reports ec2 no falls injuries or trauma. History of gout, states this was similar. No falls, no fevers, no chills, no nausea, no vomiting.. Historical: - Allergies: 01:37 Nitroglycerin; jb4 - PMHx: 01:37 CHF; Gout; High Cholesterol; Hypercholesterolemia; Hypertension; jb4 - PSHx: 01:37 Leg sx; right femur surgery; jb4 - Immunization history:: Adult Immunizations up to date. - Infectious Disease History:: Denies. - Social history:: Smoking status: Patient denies any tobacco usage or history of. Patient uses alcohol, occasionally. ROS: 01:36 Constitutional: as per hpi ec2 Exam: 01:36 Constitutional: GEN: NAD Head: atraumatic Eyes: EOMI Ears: External ears are ec2 normal. CV: regular rate LUNGS: no respiratory distress ABD: non-distended SKIN: no evidence of rashes MSK: no evidence of trauma, good range of motion of the left knee as well as ankle and foot. Slight ballotable effusion at the left knee, good range of motion, no erythema, no warmth Vital Signs: 01:36 BP 210 / 125; Pulse 100; Resp 16; Temp 98.7(O); Pulse Ox 100% on R/A; Weight 104.33 kg jb4 (R); Height 6 ft. 0 in. ; Pain 8/10; 01:36 Body Mass Index 31.19 (104.33 kg, 182.88 cm) jb4 01:36 Pain Scale: Adult jb4 MDM: 01:22 Patient medically screened. ec2 01:36 Data reviewed: vital signs. ED course: Patient arrives today for evaluation of left ec2 knee and foot pain. Examination remarkable for well-appearing nontoxic in which was otherwise in no acute distress with knee findings as above. Will treat for gout flare. Instructed on ibuprofen, steroid use as well as colchicine. Return precautions given. I considered other process such as septic joint, cellulitis, traumatic injury. . Administered Medications: 01:44 Drug: Ibuprofen PO 800 mg PO once Route: PO; jb4 :53 Follow up: Response: Medication administered at discharge. jb4 01:44 Drug: Acetaminophen PO 1000 mg PO once Route: PO; jb4 :53 Follow up: Response: Medication administered at discharge. jb4 01:44 Drug: Dexamethasone IM 10 mg IM once Route: IM; Site: right gluteus; jb4 :54 Follow up: Response: Medication administered at discharge. jb4 :44 Drug: Colcrys PO 1.2 mg PO once Route: PO; jb4 :54 Follow up: Response: Medication administered at discharge. jb4 Disposition Summary: 01/13/24 01:34 Discharge Ordered Notes: Location: Home ec2 Condition: Stable ec2 Diagnosis - Gout, unspecified ec2 Followup: ec2 - With: Private Physician - When: - Reason: Re-evaluation by your physician Discharge Instructions: - Discharge Summary Sheet ec2 - Gout ec2 Forms: - Medication Reconciliation Form ec2 - Antibiotic Education ec2 - Prescription Opioid Use ec2 - Patient Portal Instructions ec2 - Leadership Thank You Letter ec2 Prescriptions: - Ibuprofen 800 mg Oral Tablet - take 1 tablet ORAL route every 8 hours As needed take with food; 30 tablet; ec2 Refills: 0, Product Selection Permitted - Prednisone 20 mg Oral Tablet - take 1 tablet ORAL route once daily for 5 days; 5 tablet; Refills: 0, Product ec2 Selection Permitted Signatures: Candelario Caraballo RN RN jb4 Denilson Traore MD MD ec2
[2024-01-13] MEDS ORDERED: dexAMETHasone 10 MG/ML VIAL ONE (01:38)
[2024-01-13] MEDS ORDERED: ACETAMINOPHEN 500 MG TAB ONE (01:38)
[2024-01-13] MEDS ORDERED: COLCHICINE 0.6 MG TAB ONE (01:39)
[2024-01-13] MEDS ORDERED: IBUPROFEN 400 MG TAB ONE (01:39)
--- NOTE | 2024-01-13 01:56 | ER ---
Nurse's Notes [facility] Name: Wagner Padron Age: 38 yrs Sex: Male : 1985 Arrival Date: 01/13/2024 Time: 01:14 Bed 12 Private MD: Diagnosis: Gout, unspecified Presentation: 01/12 01:36 Chief complaint: Patient states: I am having a gout flair up in my left knee and foot jb4 that started 1 hour ago. Coronavirus screen: At this time, the client does not indicate any symptoms associated with coronavirus-19. Ebola Screen: No symptoms or risks identified at this time. Initial Sepsis Screen: Does the patient meet any 2 criteria? HR > 90 bpm. Yes Does the patient have a suspected source of infection? No. Patient's initial sepsis screen is negative. Risk Assessment: Do you want to hurt yourself or someone else? Patient reports no desire to harm self or others. Onset of symptoms was January 13, 2024. Transition of care: patient was not received from another setting of care. 01:36 Method Of Arrival: Ambulatory jb4 01:36 Acuity: HERMELINDA 4 jb4 Historical: - Allergies: 01:37 Nitroglycerin; jb4 - PMHx: 01:37 CHF; Gout; High Cholesterol; Hypercholesterolemia; Hypertension; jb4 - PSHx: 01:37 Leg sx; right femur surgery; jb4 - Immunization history:: Adult Immunizations up to date. - Infectious Disease History:: Denies. - Social history:: Smoking status: Patient denies any tobacco usage or history of. Patient uses alcohol, occasionally. Screenin:54 [facility] ED Fall Risk Assessment (Adult) History of falling in the last 3 months, jb4 including since admission No falls in past 3 months (0 pts) Confusion or Disorientation No (0 pts) Intoxicated or Sedated No (0 pts) Impaired Gait No (0 pts) Mobility Assist Device Used No (0 pt) Altered Elimination No (0 pt) Score/Fall Risk Level 0 - 2 = Low Risk Oriented to surroundings, Maintained a safe environment. Abuse screen: Denies threats or abuse. Nutritional screening: No deficits noted. Tuberculosis screening: No symptoms or risk factors identified. Assessment: 01:54 General: Appears in no apparent distress. comfortable, Behavior is calm, cooperative, jb4 appropriate for age. Pain: Complains of pain in left knee and dorsum of left foot Pain does not radiate. Pain currently is 8 out of 10 on a pain scale. Quality of pain is described as throbbing. Neuro: Level of Consciousness is awake, alert, obeys commands, Oriented to person, place, time, situation. Cardiovascular: Patient's skin is warm and dry. Respiratory: Airway is patent Respiratory effort is even, unlabored, Respiratory pattern is regular, symmetrical. GI: No signs and/or symptoms were reported involving the gastrointestinal system. : No signs and/or symptoms were reported regarding the genitourinary system. EENT: No signs and/or symptoms were reported regarding the EENT system. Derm: Skin is intact, Skin is pink, warm \T\ dry. Musculoskeletal: Circulation, motion, and sensation intact. Range of motion: intact in all extremities. Vital Signs: 01:36 BP 210 / 125; Pulse 100; Resp 16; Temp 98.7(O); Pulse Ox 100% on R/A; Weight 104.33 kg jb4 (R); Height 6 ft. 0 in. ; Pain 8/10; 01:36 Body Mass Index 31.19 (104.33 kg, 182.88 cm) jb4 01:36 Pain Scale: Adult jb4 ED Course: 01:15 Patient arrived in ED. jj6 01:22 Denilson Traore MD is Attending Physician. ec2 01:37 Triage completed. jb4 01:37 Arm band placed on right wrist. jb4 01:54 Patient has correct armband on for positive identification. Bed in low position. Call jb4 light in reach. Side rails up X 1. Provided Education on: Discharge instructions.. 01:54 No provider procedures requiring assistance completed. Patient did not have IV access jb4 during this emergency room visit. Administered Medications: 01:44 Drug: Ibuprofen PO 800 mg PO once Route: PO; jb4 01:53 Follow up: Response: Medication administered at discharge. jb4 01:44 Drug: Acetaminophen PO 1000 mg PO once Route: PO; jb4 01:53 Follow up: Response: Medication administered at discharge. jb4 01:44 Drug: Dexamethasone IM 10 mg IM once Route: IM; Site: right gluteus; jb4 01:54 Follow up: Response: Medication administered at discharge. jb4 01:44 Drug: Colcrys PO 1.2 mg PO once Route: PO; jb4 01:54 Follow up: Response: Medication administered at discharge. jb4 Medication: 01:54 VIS not applicable for this client. jb4 Outcome: 01:34 Discharge ordered by . ec2 01:54 Discharged to home ambulatory, jb4 01:54 Condition: stable 01:54 Discharge instructions given to patient, Instructed on discharge instructions, follow up and referral plans. medication usage, Demonstrated understanding of instructions, follow-up care, medications, Prescriptions given X 2, 01:56 Patient left the ED. jb4 Signatures: Candelario Caraballo RN RN jb4 Chantel Edmond jj6 Denilson Traore MD MD ec2
[2024-01-13 02:01] VITALS: BP 210/125; TEMP 98.7; O2SAT 100
== END 2024-01-13 01:56 | disposition home or self-care (01) ==
LOC: ER 01:14
DX: M10.9 Gout, unspecified (principal)
CPT/HCPCS: 96372; 99284; J1100

== ENCOUNTER 2024-01-20 17:13 | Emergency (ER) | payer OTHER ==
[2024-01-20] MEDS ORDERED: KETOROLAC 30 MG/ML INJ ONE (17:48)
[2024-01-20] MEDS ORDERED: dexAMETHasone 10 MG/ML VIAL ONE (17:48)
[2024-01-20] MEDS ORDERED: COLCHICINE 0.6 MG TAB ONE (17:49)
--- NOTE | 2024-01-20 18:17 | EDPHYS ---
Physician Documentation [facility] Name: Ezequiel Padron Age: 38 yrs Sex: Male : 1985 Arrival Date: 01/20/2024 Time: 17:13 Bed Treatment Private MD: ED Physician Nataliia Steel HPI: 01/19 18:15 This 38 yrs old Black Male presents to ER via Wheelchair with complaints of Leg Pain - kb Left. 18:15 Pt is a 38 year old male who presents for gout of left foot. States the pain started 4 kb days ago and it is exactly the same as previous gout episodes. States he was here for this in the past and was given a prescription of colchicine so that is what he needs today. . Historical: - Allergies: 17:48 Nitroglycerin; cm10 - PMHx: 17:48 CHF; Gout; High Cholesterol; Hypercholesterolemia; Hypertension; cm10 - PSHx: 17:48 Leg sx; right femur surgery; cm10 - Immunization history:: Adult Immunizations up to date. - Infectious Disease History:: Denies. - Social history:: Smoking status: Reported history of juuling and/or vaping. ROS: 18:13 Constitutional: As per HPI kb Exam: 18:13 Constitutional: This is a well developed, well nourished patient who is awake, alert, kb and in no acute distress. Head/Face: Normocephalic, atraumatic. ENT: Moist Mucous membranes Cardiovascular: Regular rate Respiratory: Respirations even and unlabored. No increased work of breathing. Talking in full sentences Abdomen/GI: Soft, non-tender. No distention Skin: Warm, dry with normal turgor. Normal color. Neuro: Awake and alert, GCS 15, oriented to person, place, time, and situation. Moves all extremities. Normal gait. 18:13 Musculoskeletal/extremity: Extremities: grossly normal except: noted in the left foot: pain, ROM: limited active range of motion due to pain, Circulation is intact in all extremities. Sensation intact. Weight bearing: able to fully bear weight, Vital Signs: 17:44 Pulse 84; Resp 15; Temp 98.2(IR); Pulse Ox 97% ; Weight 104.33 kg (R); Height 6 ft. 0 cm10 in. ; Pain 10/10; 17:48 BP 175 / 132; cm10 18:29 BP 165 / 105; Pulse 80; Resp 18; Pulse Ox 100% on R/A; mb9 17:44 Body Mass Index 31.19 (104.33 kg, 182.88 cm) cm10 17:44 Pain Scale: Adult cm10 MDM: 17:17 Patient medically screened. kb 18:14 Differential diagnosis: gout, cellulitis, sprain. Data reviewed: vital signs, nurses kb notes. Counseling: I had a detailed discussion with the patient and/or guardian regarding the historical points, exam findings, and any diagnostic results supporting the discharge/admit diagnosis, the need for outpatient follow up, a family practitioner, to return to the emergency department if symptoms worsen or persist or if there are any questions or concerns that arise at home. 18:16 Test considered but Not performed: X-ray: foot xray considered but pt denies kb injury/trauma. States "this is definitely gout.". Administered Medications: 17:55 Drug: Colcrys PO 1.2 mg PO once Route: PO; mb9 18:29 Follow up: Response: No adverse reaction mb9 17:55 Drug: Ketorolac IM 30 mg IM once Route: IM; Site: left deltoid; mb9 18:29 Follow up: Response: No adverse reaction mb9 17:56 Drug: Dexamethasone IM 10 mg IM once Route: IM; Site: right deltoid; mb9 18:29 Follow up: Response: No adverse reaction mb9 Disposition Summary: 01/20/24 18:17 Discharge Ordered Notes: Location: Home kb Condition: Stable kb Diagnosis - Gout, unspecified kb Followup: kb - With: Emergency Department - When: As needed - Reason: Worsening of condition Followup: kb - With: Private Physician - When: 2 - 3 days - Reason: Recheck today's complaints, Continuance of care, Re-evaluation by your physician Discharge Instructions: - Discharge Summary Sheet kb - Gout, [id number] kb Forms: - Medication Reconciliation Form kb - Antibiotic Education kb - Prescription Opioid Use kb - Patient Portal Instructions kb - Leadership Thank You Letter kb Prescriptions: - colchicine 0.6 mg Oral tablet - take 1 tablet ORAL route 2 times per day As needed; 15 tablet; Refills: 0, kb Product Selection Permitted Signatures: Kristel Carballo, MARILEE ARAIZA-Niurka Arthur RN RN mb9 Shital Vale, RN RN cm10
--- NOTE | 2024-01-20 18:17 | ER ---
Nurse's Notes [facility] Name: Ezequiel Padron Age: 38 yrs Sex: Male : 1985 Arrival Date: 01/20/2024 Time: 17:13 Bed Treatment Private MD: Diagnosis: Gout, unspecified Presentation: 01/19 17:44 Chief complaint: Patient states: Left foot pain X4 days. Pt states that he feels like cm10 this is a gout flare up. Coronavirus screen: Client denies travel out of the [place] in the last 14 days. Ebola Screen: Patient denies travel to an Ebola-affected area in the 21 days before illness onset. No symptoms or risks identified at this time. Initial Sepsis Screen: Does the patient meet any 2 criteria? No. Patient's initial sepsis screen is negative. Does the patient have a suspected source of infection? No. Patient's initial sepsis screen is negative. Risk Assessment: Do you want to hurt yourself or someone else? Patient reports no desire to harm self or others. Onset of symptoms was January 16, 2024. 17:44 Method Of Arrival: Wheelchair cm10 17:44 Acuity: HERMELINDA 3 cm10 Triage Assessment: 17:48 General: Appears in no apparent distress. uncomfortable, Behavior is calm, cooperative. cm10 Neuro: No deficits noted. Level of Consciousness is awake, alert, obeys commands, Oriented to person, place, time, situation, Appropriate for age. Historical: - Allergies: 17:48 Nitroglycerin; cm10 - PMHx: 17:48 CHF; Gout; High Cholesterol; Hypercholesterolemia; Hypertension; cm10 - PSHx: 17:48 Leg sx; right femur surgery; cm10 - Immunization history:: Adult Immunizations up to date. - Infectious Disease History:: Denies. - Social history:: Smoking status: Reported history of juuling and/or vaping. Screenin:56 [facility] ED Fall Risk Assessment (Adult) History of falling in the last 3 months, mb9 including since admission No falls in past 3 months (0 pts) Confusion or Disorientation No (0 pts) Intoxicated or Sedated No (0 pts) Impaired Gait No (0 pts) Mobility Assist Device Used No (0 pt) Altered Elimination No (0 pt) Score/Fall Risk Level 0 - 2 = Low Risk Oriented to surroundings, Maintained a safe environment, Educated pt \T\ family on fall prevention, incl call for assistance when getting out of bed, Assessed \T\ reinforced patient's understanding of fall precautions. Abuse screen: Denies threats or abuse. Nutritional screening: No deficits noted. Tuberculosis screening: No symptoms or risk factors identified. Assessment: 17:56 General: Appears in no apparent distress. Behavior is calm, cooperative. Pain: mb9 Complains of pain in left foot Pain currently is 10 out of 10 on a pain scale. Quality of pain is described as throbbing, Pain began suddenly, Is continuous. Neuro: Varela Agitation-Sedation Scale (RASS): 0 - Alert and Calm Level of Consciousness is awake, alert, obeys commands, Oriented to person, place, time, situation, Appropriate for age. Cardiovascular: Patient's skin is warm and dry. Respiratory: Airway is patent Respiratory effort is even, unlabored, Respiratory pattern is regular, symmetrical, Breath sounds are clear bilaterally. GI: No signs and/or symptoms were reported involving the gastrointestinal system. : No signs and/or symptoms were reported regarding the genitourinary system. EENT: No signs and/or symptoms were reported regarding the EENT system. Derm: Skin is pink, warm \T\ dry. Musculoskeletal: Range of motion: limited in left ankle. 18:30 Reassessment: Patient and/or family updated on plan of care and expected duration. Pain mb9 level reassessed. Patient is alert, oriented x 3, equal unlabored respirations, skin warm/dry/pink. Patient states feeling better. Patient states symptoms have improved. Vital Signs: 17:44 Pulse 84; Resp 15; Temp 98.2(IR); Pulse Ox 97% ; Weight 104.33 kg (R); Height 6 ft. 0 cm10 in. ; Pain 10/10; 17:48 BP 175 / 132; cm10 18:29 BP 165 / 105; Pulse 80; Resp 18; Pulse Ox 100% on R/A; mb9 17:44 Body Mass Index 31.19 (104.33 kg, 182.88 cm) cm10 17:44 Pain Scale: Adult cm10 ED Course: 17:14 Patient arrived in ED. ra3 17:16 [facility]el Car[facility]C [facility] cm10 17:17 Nataliia Steel MD is Attending Physician. kb 17:47 Niurka Lopez, RN is Primary Nurse. mb9 17:48 Triage completed. cm10 17:48 Arm band placed on Patient placed in an exam room, on a stretcher. cm10 17:57 Bed in low position. Call light in reach. Side rails up X 1. Provided Education on: mb9 press call light if needing anything. Client placed on continuous cardiac and pulse oximetry monitoring. NIBP monitoring applied. 18:30 No provider procedures requiring assistance completed. Patient did not have IV access mb9 during this emergency room visit. Administered Medications: 17:55 Drug: Colcrys PO 1.2 mg PO once Route: PO; mb9 18:29 Follow up: Response: No adverse reaction mb9 17:55 Drug: Ketorolac IM 30 mg IM once Route: IM; Site: left deltoid; mb9 18:29 Follow up: Response: No adverse reaction mb9 17:56 Drug: Dexamethasone IM 10 mg IM once Route: IM; Site: right deltoid; mb9 18:29 Follow up: Response: No adverse reaction mb9 Medication: 17:57 VIS not applicable for this client. mb9 Outcome: 18:17 Discharge ordered by MD. kb 18:30 Discharged to home ambulatory, mb9 18:30 Condition: stable 18:30 Discharge instructions given to patient, Instructed on discharge instructions, follow up and referral plans. Demonstrated understanding of instructions, follow-up care, medications, Prescriptions given X 1, 18:30 Patient left the ED. mb9 Signatures: Kristel Carballo, TEAC SEED SORTER-Niurka Arthur, RN RN mb9 Shital Vale RN RN cm10 Zayra Almeida ra3 Corrections: (The following items were deleted from the chart) 17:49 17:44 Acuity: HERMELINDA 4 cm10 cm10
[2024-01-20 18:58] VITALS: TEMP 98.2
[2024-01-20 19:01] VITALS: BP 165/105; O2SAT 100
== END 2024-01-20 18:30 | disposition home or self-care (01) ==
LOC: ER 17:13
DX: M10.9 Gout, unspecified (principal)
CPT/HCPCS: 96372; 99284; J1100

== ENCOUNTER 2024-02-01 10:35 | Inpatient (IN) | payer OTHER ==
[2024-02-01] MEDS ORDERED: FUROSEMIDE 40 MG/4 ML VIAL ONE (11:05)
[2024-02-01] MEDS ORDERED: METOPROLOL TAR 50 MG TAB ONE (11:05)
[2024-02-01] MEDS ORDERED: NITROGLYCERIN 1 GM PKT TD ONE (11:05)
[2024-02-01 11:28] LABS: Absolute Basophils 0.1 K/uL (0-0.5); Absolute Eosinophils 0.2 K/uL (0-0.5); Absolute Lymphocytes (CBC) 0.9 K/uL (0.7-4.9); Absolute Monocytes 1.5 K/uL (0.1-1.3); Absolute Neutrophil 6.6 K/uL (1.8-8.0); Basophils % 0.8 % (0-1.3); Hematocrit 41.6 % (39.6-49.0); Lymphocytes % 9.8 % (15.3-44.8); MCH 28.9 pg (27.0-35.0); MCHC 33.7 g/dL (32.0-36.0); MCV 85.8 fL (80-100); MPV 7.8 fL (7.6-11.3); Monocytes % 16.2 % (3.3-12.3); Neutrophils % 71.2 % (41.7-73.7); Platelets 360 thou/uL (152-406); RBC Red Blood Cell Count 4.85 M/uL (4.33-5.43); Red Cell Distribution Width 13.8 % (12.1-15.2)
--- NOTE | 2024-02-01 11:36 | RAD REPORT ---
EXAMINATION: ONE VIEW CHEST XR CLINICAL INDICATION: Male, 38 years old.DYSPNEA TECHNIQUE: 1 View, AP supine, X-ray of the chest was performed. [id number]. COMPARISON: No prior exam. FINDINGS: Lungs and pleura: Clear lungs. No effusion. Heart and mediastinum: Normal heart size. Unremarkable mediastinal contours. Osseous structures: No acute abnormality. Tubes/lines: None Other: None. IMPRESSION: No acute intrathoracic abnormality.
[2024-02-01 11:46] LABS: Albumin 3.3 g/dL (3.4-5.0); Albumin/Globulin Ratio 0.8 (1.1-1.8); Anion Gap 12.8 mEq/L (5.0-15.0); Bilirubin Direct 0.2 mg/dL (0-0.2); Bilirubin Indirect, Calculated 0.6 mg/dL (0.2-0.8); Bilirubin Total 0.8 mg/dL (0.2-1.0); Globulin 4.3 g/dL (2.3-3.5); Magnesium 1.3 mg/dL (1.6-2.4); Potassium 2.8 mEq/L (3.5-5.1); Protein, Total 7.6 g/dL (6.4-8.2)
[2024-02-01 11:47] LABS: Troponin High Sensitivity 176.4 pg/mL (<58.9)
[2024-02-01] MEDS ORDERED: POTASSIUM CL SA 10 MEQ TAB PO ONE (12:15)
[2024-02-01] MEDS ORDERED: HYDRALAZINE HCL 20 MG/ML VIAL ONE (12:20)
--- NOTE | 2024-02-01 13:19 | EDPHYS ---
Physician Documentation [facility] Name: Ezequiel Padron Age: 38 yrs Sex: Male : 1985 Arrival Date: 02/01/2024 Time: 10:35 Bed 3 Private MD: ED Physician Donn Murphy HPI: 01/31 13:25 This 38 yrs old Black Male presents to ER via Ambulatory with complaints of Shortness rt Of Breath, Cough. 13:25 Patient presents to the ED with 3 days of cough, shortness of breath, progressively rt worsening. Patient reports history of hypertension, CHF. Has been occasionally compliant with her medications. Patient states that he has been consuming large amount of alcohol with past weekend due to receiving bad news. Denies other acute complaints at this time, symptoms are moderate in severity, no other aggravating alleviating factors.. Historical: - Allergies: 10:55 No Known Allergies; mb9 - Home Meds: 10:55 metoprolol tartrate 100 mg Oral tablet [Active]; Lasix Oral [Active]; mb9 - PMHx: 10:55 Hypertensive disorder; Congestive heart failure; mb9 - PSHx: 10:55 None; mb9 - Immunization history:: Adult Immunizations up to date, Client reports receiving the 2nd dose of the Covid vaccine, Last tetanus immunization: up to date Pneumococcal vaccine is up to date, Flu vaccine is up to date. - Infectious Disease History:: Denies. - Social history:: Smoking status: unknown. - Family history:: not pertinent. - Code Status:: Full code. ROS: 13:25 Constitutional: Negative for fever, chills, and weight loss, Cardiovascular: Negative rt for chest pain, palpitations, and edema, Abdomen/GI: Negative for abdominal pain, nausea, vomiting, diarrhea, and constipation, MS/Extremity: Negative for injury and deformity, Skin: Negative for injury, rash, and discoloration, Neuro: Negative for headache, weakness, numbness, tingling, and seizure, 13:25 Respiratory: Positive for cough, shortness of breath, Exam: 13:25 Constitutional: This is a well developed, well nourished patient who is awake, alert, rt and in no acute distress. Head/Face: Normocephalic, atraumatic. Chest/axilla: Normal chest wall appearance and motion. Nontender with no deformity. No lesions are appreciated. Cardiovascular: Regular rate and rhythm with a normal S1 and S2. No gallops, murmurs, or rubs. Normal PMI, no JVD. No pulse deficits. Respiratory: Lungs have equal breath sounds bilaterally, clear to auscultation and percussion. No rales, rhonchi or wheezes noted. No increased work of breathing, no retractions or nasal flaring. Abdomen/GI: Soft, non-tender, with normal bowel sounds. No distension or tympany. No guarding or rebound. No evidence of tenderness throughout. Skin: Warm, dry with normal turgor. Normal color with no rashes, no lesions, and no evidence of cellulitis. MS/ Extremity: Pulses equal, no cyanosis. Neurovascular intact. Full, normal range of motion. Neuro: Awake and alert, GCS 15, oriented to person, place, time, and situation. Cranial nerves II-XII grossly intact. Motor strength 5/5 in all extremities. Sensory grossly intact. Cerebellar exam normal. Normal gait. 13:25 ECG was reviewed by the Attending Physician. Vital Signs: 10:40 BP 213 / 150; Pulse 117; Resp 20; Temp 100(O); Pulse Ox 98% ; Weight 99.79 kg; Height 6 os ft. 0 in. ; 11:57 BP 171 / 121; Pulse 94; Resp 16; Pulse Ox 95% on R/A; mb9 12:54 BP 169 / 96; Pulse 97; Resp 18; Pulse Ox 100% on R/A; mb9 13:33 BP 196 / 124; Pulse 98; Resp 18; Pulse Ox 100% on R/A; mb9 13:50 BP 167 / 114; Pulse 99; Resp 18; Pulse Ox 100% on R/A; mb9 14:11 BP 158 / 86; Pulse 98; Resp 18; Pulse Ox 100% on R/A; mb9 14:37 BP 163 / 124; Pulse 94; Resp 18; Pulse Ox 100% on R/A; mb9 10:40 Body Mass Index 29.84 (99.79 kg, 182.88 cm) os MDM: 10:51 Patient medically screened. rt 13:25 Differential diagnosis: Hypertensive emergency, CHF, ACS. Data reviewed: vital signs, rt nurses notes, lab test result(s), EKG, radiologic studies. Consideration of Admission/Observation Patient was admitted/placed on observation. Management of patient was discussed with the following: Hospitalist: Agrees to admit. I considered the following discharge prescriptions or medication management in the emergency department Medications were administered in the Emergency Department. See MAR. Independent interpretation of the following test(s) in the Emergency Department X-Ray: My interpretation is No edema seen on interpretation of x-ray images. Care significantly affected by the following chronic conditions: Hypertension, Congestive Heart Failure. Counseling: I had a detailed discussion with the patient and/or guardian regarding the historical points, exam findings, and any diagnostic results supporting the discharge/admit diagnosis, lab results, radiology results, the need for further work-up and treatment in the hospital. Response to treatment: the patient's symptoms have markedly improved after treatment. 01/31 10:59 Order name: Basic Metabolic Panel; Complete Time: 11:47 rt 01/31 10:59 Order name: CBC with Diff; Complete Time: 11:41 rt 01/31 10:59 Order name: LFT's; Complete Time: 11:47 rt 01/31 10:59 Order name: Magnesium; Complete Time: 11:47 rt 01/31 10:59 Order name: NT PRO-BNP; Complete Time: 11:47 rt 01/31 10:59 Order name: Troponin HS; Complete Time: 11:47 rt 01/31 13:51 Order name: Phosphorus EDMS 01/31 13:51 Order name: Uric Acid EDMS 01/31 13:51 Order name: Protime (+INR) EDMS 01/31 13:51 Order name: PTT, Activated Partial Thromb EDMS 01/31 13:51 Order name: CBC with Automated Diff EDMS 01/31 13:51 Order name: CBC with Automated Diff EDMS 01/31 13:51 Order name: Comprehensive Metabolic Panel EDMS 01/31 13:51 Order name: Comprehensive Metabolic Panel EDMS 01/31 13:51 Order name: Lipid Profile EDMS 01/31 13:51 Order name: Lipid Profile EDMS 01/31 13:51 Order name: Magnesium EDMS 01/31 13:51 Order name: Magnesium EDMS 01/31 13:51 Order name: Troponin High Sensitivity EDMS 01/31 13:51 Order name: Troponin High Sensitivity EDMS 01/31 13:51 Order name: Troponin High Sensitivity EDMS 01/31 13:51 Order name: Magnesium EDMS 01/31 13:51 Order name: Potassium EDMS 01/31 10:59 Order name: XRAY Chest (1 view); Complete Time: 11:41 rt 01/31 10:59 Order name: EKG; Complete Time: 10:59 rt 01/31 13:51 Order name: CONS Physician Consult EDMS 01/31 10:59 Order name: Cardiac monitoring; Complete Time: 10:59 rt 01/31 10:59 Order name: EKG - Nurse/Tech; Complete Time: 10:59 rt 01/31 10:59 Order name: IV Saline Lock; Complete Time: 11:26 rt 01/31 10:59 Order name: Labs collected and sent; Complete Time: 11:26 rt 01/31 10:59 Order name: O2 Per Protocol; Complete Time: 10:59 rt 01/31 10:59 Order name: O2 Sat Monitoring; Complete Time: 10:59 rt EC:25 Rate is 110 beats/min. Rhythm is regular, Sinus tachycardia with No ectopy, LVH with rt repolarization abnormality. MD interval is normal. QRS interval is normal. QT interval is normal. No Q waves. Administered Medications: 11:10 Drug: Metoprolol PO 100 mg PO once Route: PO; mb9 12:23 Follow up: Response: No adverse reaction mb9 11:12 Drug: Furosemide IVP 40 mg IVP once; give over 2 minutes Route: IVP; Site: right mb9 antecubital; 12:23 Follow up: Response: No adverse reaction mb9 11:15 Drug: Nitroglycerin Transdermal Ointment 2 % 1 inches Transdermal once Route: mb9 Transdermal; Site: anterior chest wall; 12:16 Drug: Potassium Chloride PO Liquid 40 mEq PO once Route: PO; mb9 12:54 Follow up: Response: No adverse reaction mb9 12:23 Drug: hydrALAZINE IVP 20 mg IVP once Route: IVP; Site: right antecubital; mb9 12:54 Follow up: Response: No adverse reaction mb9 13:50 Drug: niCARdipine IV 5 mg/hr IV at calculated rate See Administration Instructions; mb9 (Standard concentration 25 mg / 250 mL NS); Recommended max rate 15 mg/hr; Titrate 2.5 mg/hr as often as every minutes to achieve goal (see titration policy); Goal parameter SBP less than 160 mmHg Route: IV; Rate: calculated rate; Site: left forearm; 14:38 Follow up: Response: No adverse reaction; IV Status: Infusion continued upon admission mb9 13:50 Drug: Magnesium Sulfate IVPB 2 grams IVPB once over 2 hrs Route: IVPB; Infused Over: 2 mb9 hrs; Site: right antecubital; 14:38 Follow up: IV Status: Infusion continued upon admission mb9 13:51 Drug: Tussionex Pennkinetic ER PO Suspension 5 ml PO once Route: PO; mb9 14:38 Follow up: Response: No adverse reaction mb9 Disposition: 13:25 Critical Care:. rt Disposition Summary: 02/01/24 13:18 Hospitalization Ordered Notes: Hospitalization Status: Observation rt Provider: Jermaine Benavides rt Condition: Fair rt Problem: new rt Symptoms: have improved rt Bed/Room Type: Standard rt Location: Intensive Care Unit(02/01/24 14:20) eb Room Assignment: 4-(02/01/24 14:20) eb Diagnosis - Hypertensive emergency rt - Hypokalemia rt - NSTEMI rt Forms: - Medication Reconciliation Form rt - SBAR form rt - Leadership Thank You Letter rt Critical care time excluding procedures: 13:25 Critical care time: Bedside Care: 30 minutes, Consultation: 5 minutes. Total time: 35 rt minutes Signatures: Dispatcher [employer] Elba Kumari FNP-C CONFERENCE SPECIALIST-[employer] Yohana Torres Mary Beth, RN RN mb9 Donn Murphy MD MD rt Ayo Will RN RN os Corrections: (The following items were deleted from the chart) 10:44 10:44 PMHx: Hypertension; os os 10:44 10:44 PMHx: CHF; os os 10:44 10:44 PMHx: Gout; os os 10:44 10:44 PMHx: High Cholesterol; os os 10:44 10:44 PMHx: Hypercholesterolemia; os os 10:44 10:44 PSHx: Leg sx; right femur surgery; os os 10:56 10:44 Allergies: Nitroglycerin [Inactive]; os mb9 14:20 13:18 Telemetry/MedSurg (observation) rt eb 14:20 13:18 rt eb
--- NOTE | 2024-02-01 13:19 | ER ---
Nurse's Notes [facility] Name: Ezequiel Padron Age: 38 yrs Sex: Male : 1985 Arrival Date: 02/01/2024 Time: 10:35 Bed 3 Private MD: Diagnosis: Hypertensive emergency;Hypokalemia;NSTEMI Presentation: 01/31 10:40 Chief complaint: Patient states: Patient presents in the ED c/o cough, SOB, and fever os for the past 3 days. Coronavirus screen: Client denies travel out of the [place] in the last 14 days. Client presents with at least one sign or symptom that may indicate coronavirus-19. Standard/surgical mask placed on the client. The client denies any previous COVID testing. Ebola Screen: No symptoms or risks identified at this time. Initial Sepsis Screen: Does the patient meet any 2 criteria? Temp <36.0*C (96.8*F)) or > 38.3*C (100.9*F). HR > 90 bpm. Yes Does the patient have a suspected source of infection? No. Patient's initial sepsis screen is negative. Risk Assessment: Do you want to hurt yourself or someone else? Patient reports no desire to harm self or others. Onset of symptoms was January 29, 2024. 10:40 Method Of Arrival: Ambulatory os 10:40 Acuity: HERMELINDA 3 os Triage Assessment: 10:44 General: Appears uncomfortable, well groomed, Behavior is calm, cooperative, os appropriate for age. Pain: Denies pain. Neuro: No deficits noted. Cardiovascular: Capillary refill < 3 seconds Patient's skin is warm and dry. Respiratory: Reports shortness of breath cough that is Onset: The symptoms/episode began/occurred 3 days ago, the patient has moderate shortness of breath. Historical: - Allergies: 10:55 No Known Allergies; mb9 - Home Meds: 10:55 metoprolol tartrate 100 mg Oral tablet [Active]; Lasix Oral [Active]; mb9 - PMHx: 10:55 Hypertensive disorder; Congestive heart failure; mb9 - PSHx: 10:55 None; mb9 - Immunization history:: Adult Immunizations up to date, Client reports receiving the 2nd dose of the Covid vaccine, Last tetanus immunization: up to date Pneumococcal vaccine is up to date, Flu vaccine is up to date. - Infectious Disease History:: Denies. - Social history:: Smoking status: unknown. - Family history:: not pertinent. - Code Status:: Full code. Screenin:48 [facility] ED Fall Risk Assessment (Adult) History of falling in the last 3 months, mb9 including since admission No falls in past 3 months (0 pts) Confusion or Disorientation No (0 pts) Intoxicated or Sedated No (0 pts) Impaired Gait No (0 pts) Mobility Assist Device Used No (0 pt) Altered Elimination No (0 pt) Score/Fall Risk Level 0 - 2 = Low Risk Oriented to surroundings, Maintained a safe environment, Educated pt \\T\\ family on fall prevention, incl call for assistance when getting out of bed. Abuse screen: Denies threats or abuse. Nutritional screening: No deficits noted. Tuberculosis screening: No symptoms or risk factors identified. Assessment: 10:56 General: Appears uncomfortable, Behavior is cooperative. Pain: Denies pain. Neuro: mb9 Varela Agitation-Sedation Scale (RASS): 0 - Alert and Calm Level of Consciousness is awake, alert, obeys commands, Oriented to person, place, time, situation, Appropriate for age Reports dizziness. Cardiovascular: Heart tones S1 S2 present Patient's skin is warm and dry. Rhythm is sinus tachycardia. Respiratory: Reports shortness of breath at rest Airway is patent Respiratory effort is even, unlabored, Respiratory pattern is regular, symmetrical, Breath sounds are clear bilaterally. GI: Abdomen is round non-distended. : No signs and/or symptoms were reported regarding the genitourinary system. EENT: No signs and/or symptoms were reported regarding the EENT system. Derm: Skin is pink, warm \\T\\ dry. Musculoskeletal: Range of motion: intact in all extremities. 12:00 Reassessment: No changes from previously documented assessment. Patient and/or family mb9 updated on plan of care and expected duration. Pain level reassessed. Patient is alert, oriented x 3, equal unlabored respirations, skin warm/dry/pink. 13:15 Reassessment: pt states, "I feel dizzy and like i'm going to . My cough isn't going mb9 away.". 14:30 Reassessment: Attempted to call report to ICU nurjos[facility]. States they will call back. mb9 14:38 Reassessment: No changes from previously documented assessment. Patient and/or family mb9 updated on plan of care and expected duration. Pain level reassessed. Patient is alert, oriented x 3, equal unlabored respirations, skin warm/dry/pink. Vital Signs: 10:40 BP 213 / 150; Pulse 117; Resp 20; Temp 100(O); Pulse Ox 98% ; Weight 99.79 kg; Height 6 os ft. 0 in. ; 11:57 BP 171 / 121; Pulse 94; Resp 16; Pulse Ox 95% on R/A; mb9 12:54 BP 169 / 96; Pulse 97; Resp 18; Pulse Ox 100% on R/A; mb9 13:33 BP 196 / 124; Pulse 98; Resp 18; Pulse Ox 100% on R/A; mb9 13:50 BP 167 / 114; Pulse 99; Resp 18; Pulse Ox 100% on R/A; mb9 14:11 BP 158 / 86; Pulse 98; Resp 18; Pulse Ox 100% on R/A; mb9 14:37 BP 163 / 124; Pulse 94; Resp 18; Pulse Ox 100% on R/A; mb9 10:40 Body Mass Index 29.84 (99.79 kg, 182.88 cm) os ED Course: 10:37 Patient arrived in ED. mg5 10:43 Triage completed. os 10:47 Donn Murphy MD is Attending Physician. rt 10:47 Niurka Lopez, RN is Primary Nurse. mb9 10:47 Arm band placed on. mb9 10:48 Placed in gown. Bed in low position. Call light in reach. Side rails up X 1. Provided mb9 Education on: press call light if needing anything. Client placed on continuous cardiac and pulse oximetry monitoring. NIBP monitoring applied. 10:57 EKG done, by ED staff, reviewed by Niurka Lopez RN. mb9 11:08 XRAY Chest (1 view) In Process Unspecified. EDMS 11:15 Initial lab(s) drawn, by me, by EMS personnel. Inserted saline lock: 20 gauge in right mb9 antecubital area, using aseptic technique. Blood collected. Flushed with 10 mL NS. 11:46 Notified ED physician of a critical lab result(s). troponin 176.4. [id number] 13:17 Jermaine Benavides MD is Hospitalizing Provider. rt 13:34 No provider procedures requiring assistance completed. Patient admitted, IV remains in mb9 place. 13:50 Inserted saline lock: 20 gauge in left forearm, using aseptic technique. mb9 Administered Medications: 11:10 Drug: Metoprolol PO 100 mg PO once Route: PO; mb9 12:23 Follow up: Response: No adverse reaction mb9 11:12 Drug: Furosemide IVP 40 mg IVP once; give over 2 minutes Route: IVP; Site: right mb9 antecubital; 12:23 Follow up: Response: No adverse reaction mb9 11:15 Drug: Nitroglycerin Transdermal Ointment 2 % 1 inches Transdermal once Route: mb9 Transdermal; Site: anterior chest wall; 12:16 Drug: Potassium Chloride PO Liquid 40 mEq PO once Route: PO; mb9 12:54 Follow up: Response: No adverse reaction mb9 12:23 Drug: hydrALAZINE IVP 20 mg IVP once Route: IVP; Site: right antecubital; mb9 12:54 Follow up: Response: No adverse reaction mb9 13:50 Drug: niCARdipine IV 5 mg/hr IV at calculated rate See Administration Instructions; mb9 (Standard concentration 25 mg / 250 mL NS); Recommended max rate 15 mg/hr; Titrate 2.5 mg/hr as often as every minutes to achieve goal (see titration policy); Goal parameter SBP less than 160 mmHg Route: IV; Rate: calculated rate; Site: left forearm; 14:38 Follow up: Response: No adverse reaction; IV Status: Infusion continued upon admission mb9 13:50 Drug: Magnesium Sulfate IVPB 2 grams IVPB once over 2 hrs Route: IVPB; Infused Over: 2 mb9 hrs; Site: right antecubital; 14:38 Follow up: IV Status: Infusion continued upon admission mb9 13:51 Drug: Tussionex Pennkinetic ER PO Suspension 5 ml PO once Route: PO; mb9 14:38 Follow up: Response: No adverse reaction mb9 Medication: 10:48 VIS not applicable for this client. mb9 Outcome: 13:18 Decision to Hospitalize by Provider. rt 14:50 Admitted to ICU accompanied by nurse, via stretcher, Report called to SAMANTHA Daniels mb9 14:50 Condition: stable 14:50 Instructed on the need for admit, 15:23 Patient left the ED. mb9 Signatures: Dispatcher [employer] Ade Castle RN RN [id number] Niurka Lopez RN RN mb9 Donn Murphy MD MD rt Ayo Will RN RN os Cyndee Conway mg5 Corrections: (The following items were deleted from the chart) 10:44 10:44 PMHx: Hypertension; os os 10:44 10:44 PMHx: CHF; os os 10:44 10:44 PMHx: Gout; os os 10:44 10:44 PMHx: High Cholesterol; os os 10:44 10:44 PMHx: Hypercholesterolemia; os os 10:44 10:44 PSHx: Leg sx; right femur surgery; os os 10:56 10:44 Allergies: Nitroglycerin [Inactive]; os mb9
--- NOTE | 2024-02-01 13:25 | P.HP ---
Certification for Inpatient Patient admitted to: Inpatient With expected LOS: >2 Midnights Patient will require the following post-hospital care: None Practitioner: I am a practitioner with admitting privileges, knowledge of patient current condition, hospital course, and medical plan of care. Services: Services provided to patient in accordance with Admission requirements found in Title 42 Section 412.3 of the Code of Federal Regulations <Elba Pearce - Last Filed: 02/01/24 14:46> Patient History Date of Service: 02/01/24 Reason for admission: hypertensive emergency, elevated trop, hypokal/mag History of Present Illness: Mr. Padron is a 38-year-old gentleman with past medical history of hypertension with CKD, CHF, hyperlipidemia, gout, and some noncompliance with medications. He was last admitted on 11/12/2023 for hypertensive urgency with neurovascular symptoms. Mr. Padron has been under some stress with a recent diagnosis for his of cancer. He states he has not been taking his medications as well as he had been. He presented to the emergency department today with a chief complaint of shortness of breath and cough worsening over the last 3 days. He also admits to a low-grade temp. On arrival to the emergency department, his blood pressure was 213/150 with a heart rate of 117. He was given his home dose of metoprolol p.o. (100 mg), 40 mg of Lasix IV with 20meq KCL po, and 1 inch Nitropaste to his anterior chest wall. Chest x-ray performed with negative acute abnormality. Repeat blood pressure after 1 hour 171/121 with heart rate of 94. Mr. Padron was given 20 mg of hydralazine IV x 1. His pressure dropped to 169/96 and the hospitalist team was called for admission. At bedside, patient very uncomfortable with persistent cough, feels like his pressure is too low with symptoms of nausea and dizziness, and is anxious and tearful. Discussed plan of care with patient and he became more calm, repeat blood pressure 192/124, heart rate 97, regular, SpO2 97 to 98% on room air. O2 at 2 L applied, magnesium 2 g IV and Cardene drip ordered. We will admit Mr. Padron to the ICU for further evaluation and treatment. Home medications list reviewed: Yes - Past Medical/Surgical History Diabetic: No -: Hypertension with CKD -: Systolic CHF, EF 35%now improved to 55% -: Noncompliance with medication -: HLD -: right leg surgery Psychosocial/ Personal History: Patient is . 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 - Social History Smoking Status: Former smoker Alcohol use: Yes CD- Drugs: No Caffeine use: Yes Place of Residence: Home <RamsesElbatrell Amezcua - Last Filed: 02/01/24 14:46> Date of Service: 02/01/24 <Jermaine Bneavides - Last Filed: 02/01/24 15:23> Allergies nitroglycerin Adverse Reaction (Mild, Verified 05/05/23 01:47) Nausea/Vomiting Home Medications: Colchicine 0.6 mg PO BID #28 tab 05/06/23 Allopurinol 300 mg PO DAILY #30 tab 11/14/23 Amlodipine [Norvasc*] 10 mg PO DAILY #30 tab 11/14/23 Atorvastatin Calcium [Lipitor] 40 mg PO BEDTIME #30 tab 11/14/23 Colchicine [Colcrys *] 0.6 mg PO BID #20 tab 11/14/23 Metoprolol Tartrate [Lopressor*] 50 mg PO BID #60 tab 11/14/23 lisinopriL [Prinivil*] 20 mg PO BID #60 tab 11/14/23 predniSONE [Deltasone] 20 mg PO BID #11 tab 11/14/23 Metoprolol Tartrate 100 mg PO BID #60 tab 11/15/23 Spironolactone [Aldactone] 25 mg PO DAILY #30 tab 11/15/23 Review of Systems 10-point ROS is otherwise unremarkable General: Malaise Respiratory: Cough, Shortness of Breath, SOB with Excertion, Other (Denies chest pain) Cardiovascular: Unremarkable Gastrointestinal: Nausea Genitourinary: Unremarkable Musculoskeletal: Unremarkable Integumentary: Unremarkable Neurological: Unremarkable <Elba Pearce - Last Filed: 02/01/24 14:46> Physical Examination - Physical Exam General: Alert, Oriented x3, Moderate distress HEENT: Atraumatic, Normocephalic Neck: Supple Respiratory: Normal air movement, Other (Incessant cough) Cardiovascular: Regular rate/rhythm, Normal S1 S2 Capillary refill: <2 Seconds Gastrointestinal: Soft and benign Musculoskeletal: No clubbing, No swelling Integumentary: No rashes Neurological: Normal speech, Normal tone, Abnormal affect Lymphatics: No axilla or inguinal lymphadenopathy External genitalia: Deferred Rectal: Deferred - Studies Laboratory Data (last 24 hrs) 02/01/24 02/01/24 11:12 11:12 WBC 9.20 Hgb 14.0 Hct 41.6 Plt Count 360 Sodium 132 L Potassium 2.8 L BUN 9 Creatinine 1.64 H Glucose 106 Magnesium 1.3 L Total Bilirubin 0.8 AST 26 ALT 30 Alkaline Phosphatase 100 <Elba Pearce - Last Filed: 02/01/24 14:46> - Studies Laboratory Data (last 24 hrs) 02/01/24 02/01/24 11:12 11:12 WBC 9.20 Hgb 14.0 Hct 41.6 Plt Count 360 Sodium 132 L Potassium 2.8 L BUN 9 Creatinine 1.64 H Glucose 106 Magnesium 1.3 L Total Bilirubin 0.8 AST 26 ALT 30 Alkaline Phosphatase 100 <Jermaine Benavides - Last Filed: 02/01/24 15:23> Assessment and Plan - Plan Hypertensive emergency with elevated troponin CHF, CKD secondary to hypertension Gout with probable overuse of NSAIDs Medication noncompliance secondary to stress factor Hypokalemia secondary to diuretics Hypomagnesemia O2 per protocol Pain controlmorphine Cardene drip with slow titration to goal of systolic blood pressure was 160, monitor and trend Monitor and trend creatinine, avoid nephrotoxins, NSAIDs Monitor and trend electrolyte, magnesium 2 g IV x 1, 40 mill equivalents KCl given p.o. in ED Appreciate consult from cardiology, elevated troponin likely from hypertensive emergency, trend troponin every 8 hours x 3 Echo if okay with cardiology, apparent HFrEF with some recovery per history (35%> 55%) VTE/GI prophylaxis 5000U subcu heparin every 8 hours Protonix Low-grade temp associated with above signs and symptoms Flu/SARS swabs Plan to discharge in: Greater than 2 days - Advance Directives Does patient have a Living Will: No Does patient have a Durable POA for Healthcare: No - Code Status/Comfort Care Code Status Assessed: Yes (Full) <Elba Pearce - Last Filed: 02/01/24 14:46> - Plan Pt seen and examined. I agree with the note by the CIVIL PREPAREDNESS COORDINATOR. Pt is 38yo male with past medical history of hypertension with CKD, CHF, hyperlipidemia, gout, and noncompliance with medications who presents with SOB and cough for the past 3 days. Pt has not been compliant withhis meds at home due to family stress. His was recently diagnosed of cancer. On admission, pt presented with BP if 213/150 with HR of 117. The ER physician gave him metoprolol, lasix with KCL and nitropaste. Lab studies show wbc 9.2, Hgb 14, NA 132, K 2.8, Cr 1.64, troponin 176, BNP 8642. CXR is unremarkable. AT bedside, pt is anxious. A/P: Hypertensive emergency: Will continue cardene drip and admit pt in the ICU. Will add home BP regimen Elevated troponin: Likely troponin leak due to hypertensive urgency. Pt denies any chest pain. Will trend troponin Hypokalemia: K is 2.8. Will replete and monitor. Hypomagnesemia: Mag is 1.3. Will replete magnesium and monitor. Hyponatremia: Na is 132. Likely due to volume overload. Will trend Na. Hx of CHF: BNP is 8642. Will continue lasix, I/O and daily weight. Gout: Continue prn painm ed. DVT ppx: SCD Code: full <Jermaine Benavides - Last Filed: 02/01/24 15:23>
[2024-02-01] MEDS ORDERED: HYDROCODONE/CHLORPHEN 5 ML/OSYR ONE (13:30)
[2024-02-01] MEDS ORDERED: Magnesium Sulfate 2gm IVPB 2 G/50 ML BAG IV ONE (13:30)
[2024-02-01] MEDS ORDERED: Nicardipine/NS 25 MG/250 ML KIT IV ONE (13:30)
[2024-02-01] MEDS ORDERED: SODIUM CHLORIDE 0.9% 10ML INJ IV PRN (13:33)
[2024-02-01 14:41] LABS: PT Prothrombin Time 12.3 SECONDS (9.4-12.5); Protime INR 1.1
[2024-02-01 14:43] LABS: Phosphorus 2.2 mg/dL (2.5-4.9); Uric Acid 11.9 mg/dL (3.5-7.2)
[2024-02-01 15:21] VITALS: BMI 31.1
[2024-02-01] MEDS: HEPARIN 5000 UNIT/ML 1 ML VIAL SQ SCH (15:57)
[2024-02-01] MEDS: ACETAMINOPHEN 500 MG TAB PO PRN (15:58)
[2024-02-01] MEDS: MORPHINE 4 MG/ML SYR IV PRN (15:58)
[2024-02-01 17:00] LABS: Magnesium 1.8 mg/dL (1.6-2.4); Potassium 2.8 mEq/L (3.5-5.1)
[2024-02-01] MEDS: Nicardipine/NS 25 MG/250 ML KIT IV SCH (17:01)
[2024-02-01] MEDS ORDERED: SODIUM PHOSPHATE 15 MM in NA CHLORIDE 0.9% 250 ML IV ONE (18:39)
[2024-02-01 19:33] LABS: SARS-CoV-2 Antigen CONTROL BLUE LINE VIS/BG OK; SARS-CoV-2 Antigen Rapid Res Negative (Negative)
[2024-02-01] MEDS: MAGNESIUM SULFATE 1 gm IVPB 1 GM/100 ML BAG IV ONE (19:47)
[2024-02-01] MEDS: ALBUTEROL 2.5 MG/3 ML NEB SOL NEB SCH (19:53)
[2024-02-01] MEDS: IPRATROPIUM BROM 0.5MG/2.5ML NEB SCH (19:53)
[2024-02-01] MEDS ORDERED: POTASS/SODIUM PHOSPHATE 1 PKT POWD.PACK PO SCH (20:00)
[2024-02-01] MEDS: PANTOPRAZOLE 40 MG INJ IVP SCH (20:07)
[2024-02-01] MEDS: POTASS/SODIUM PHOSPHATE 1 PKT POWD.PACK PO SCH (20:21)
[2024-02-01 21:26] VITALS: O2SAT 95
[2024-02-01] MEDS: KCL 20 MEQ/100 mL IVPB 20 MEQ/100 ML BAG IV SCH (21:54)
[2024-02-02] MEDS ORDERED: SODIUM CHLORIDE IV ONE (01:11)
[2024-02-02] MEDS ORDERED: NICARDIPINE IV ONE (01:11)
[2024-02-02] MEDS: CEFTRIAXONE 1,000 MG in NA CHLORIDE 0.9% 50 ML IVPB SCH (01:32)
[2024-02-02] MEDS: METOPROLOL XL 100 MG TAB PO SCH (05:54)
[2024-02-02 06:15] LABS: Specific Gravity 1.015 (1.005-1.030); Sqamous Epithelial <5 /HPF (None Seen); Transitional Epithelial <5 /HPF (None Seen); Urine Bacteria None Seen /HPF (<20); Urine Bilirubin NEGATIVE (Negative); Urine Blood Trace (Negative); Urine Clarity Clear (Clear); Urine Color Light-Yellow (Yellow); Urine Culture Reflex Order NOT NEEDED; Urine Glucose NEGATIVE (Negative); Urine Ketones NEGATIVE (Negative); Urine Microscopic Reflex YN ORDER UMIC; Urine Nitrite NEGATIVE (Negative); Urine Protein 3+ (Negative); Urine RBC <5 /HPF (None Seen); Urine Urobilinogen Normal (Normal); Urine WBC <5 /HPF (<5)
[2024-02-02 06:20] LABS: Absolute Basophils 0.1 K/uL (0-0.5); Absolute Eosinophils 0.2 K/uL (0-0.5); Absolute Lymphocytes (CBC) 1.1 K/uL (0.7-4.9); Absolute Monocytes 1.4 K/uL (0.1-1.3); Eosinophils % 1.7 % (0-4.4); Hematocrit 39.4 % (39.6-49.0); Hemoglobin 13.3 g/dL (13.6-17.9); Lymphocytes % 10.9 % (15.3-44.8); MCH 28.9 pg (27.0-35.0); MCHC 33.7 g/dL (32.0-36.0); MCV 85.6 fL (80-100); MPV 8.2 fL (7.6-11.3); Monocytes % 14.2 % (3.3-12.3); Neutrophils % 72.2 % (41.7-73.7); Platelets 320 thou/uL (152-406)
[2024-02-02 06:41] LABS: Albumin 2.9 g/dL (3.4-5.0); Albumin/Globulin Ratio 0.7 (1.1-1.8); Anion Gap 7.9 mEq/L (5.0-15.0); Bilirubin Total 0.5 mg/dL (0.2-1.0); Globulin 4.3 g/dL (2.3-3.5); Magnesium 2.1 mg/dL (1.6-2.4); Potassium 2.9 mEq/L (3.5-5.1); Protein, Total 7.2 g/dL (6.4-8.2)
[2024-02-02 06:47] LABS: Troponin High Sensitivity 170.5 pg/mL (<58.9)
[2024-02-02] MEDS ORDERED: CETIRIZINE HCL 5 MG TABLET PO PRN (07:31)
[2024-02-02] MEDS: KCL 20 MEQ/100 mL IVPB 20 MEQ/100 ML BAG IV SCH (07:47)
[2024-02-02] MEDS: FUROSEMIDE 40 MG TABLET PO SCH (07:48)
[2024-02-02] MEDS: FAMOTIDINE 20 MG TAB PO SCH (07:49)
--- NOTE | 2024-02-02 08:30 | P.PN ---
Subjective Date of Service: 02/02/24 Chief Complaint: hypertensive emergency, elevated trop, hypokal/mag Fever to 102 overnight, patient reports this morning that he has a molar with "a hole in it", chest x-ray clear, flu/COVID negative, troponin stable and cough improved with reduction in pressure secondary to Cardene drip. Patient states he feels better. <Olivia Pearcetrell Amezcua - Last Filed: 02/02/24 08:21> Date of Service: 02/02/24 <Nelly Pinon - Last Filed: 02/09/24 21:44> Review of Systems 10-point ROS is otherwise unremarkable General: Fever, Weakness, Malaise Eyes: Unremarkable ENT: Unremarkable Respiratory: Other (Cough improving) Cardiovascular: Other (Denies chest pain, dizziness) Gastrointestinal: Other (Nausea improved) Musculoskeletal: Unremarkable Integumentary: Unremarkable Neurological: Other (Headache requiring morphine x 3 doses) <RamsesElba Amezcua - Last Filed: 02/02/24 08:21> Physical Examination - Vital Signs Temperature: 99.5 F Blood Pressure: 135/80 Pulse: 85 Respirations: 21 Pulse Ox (%): 98 - Physical Exam General: Alert, In no apparent distress, Oriented x3 HEENT: Atraumatic, Normocephalic Neck: Supple Respiratory: Normal air movement Cardiovascular: No edema Capillary refill: <2 Seconds Gastrointestinal: Normal bowel sounds, Non-distended Musculoskeletal: No clubbing Integumentary: No rashes Neurological: Normal speech, Normal tone, Normal affect Lymphatics: No axilla or inguinal lymphadenopathy External genitalia: Deferred Rectal: Deferred - Studies Laboratory Data (last 24 hrs) 02/01/24 02/01/24 11:12 11:12 WBC 9.20 Hgb 14.0 Hct 41.6 Plt Count 360 Sodium 132 L Potassium 2.8 L BUN 9 Creatinine 1.64 H Glucose 106 Magnesium 1.3 L Total Bilirubin 0.8 AST 26 ALT 30 Alkaline Phosphatase 100 <Elba Pearce - Last Filed: 02/02/24 08:21> Assessment And Plan - Plan Hypertensive emergency with elevated troponin CHF, CKD secondary to hypertension Gout with probable overuse of NSAIDs Medication noncompliance secondary to stress factor Hypokalemia secondary to diuretics Hypomagnesemia O2 per protocol Pain controlmorphine Cardene drip with slow titration to goal of systolic blood pressure was 160, monitor and trend 02/02/2024 Monitor and trend creatinine, avoid nephrotoxins, NSAIDs, Monitor and trend electrolyte, magnesium 2 g IV x 1, 40 mill equivalents KCl given p.o. in ED Appreciate consult from cardiology, elevated troponin likely from hypertensive emergency, trend troponin every 8 hours x 3 Echo if okay with cardiology, apparent HFrEF with some recovery per history (35%> 55%) 02/02/2024 weaning Cardene systolics in the 150s, Lopressor 100 mg p.o. this a.m., will continue to assess creatinine 1.79 Electrolytes stable Troponin trending flat Low-grade temp associated with above signs and symptoms Flu/SARS swabs 02/02/2024 Fever to 102 last p.m. 02/01/2024 blood cultures drawn Rocephin 1 g every 24h Chest x-ray negative Cough improved Patient remembered cavity and a molar and thinks that may be why of his fever came from VTE/GI prophylaxis 5000U subcu heparin every 8 hours Protonix <Elba Pearce - Last Filed: 02/02/24 08:21> Date of Service: 02/02/24 Patient was seen and examined. Events of the last 24 hours have been noted. Spoke with with [facility] regarding patient's clinical picture after evaluating and examining the patient independently. I performed a substantial part of the MDM during this patient's care today. I personally made or approved the documented management plan and acknowledge its risk of complications. I agree with the findings and documentation provided in the [facility]'s notes. <Nelly Pinon - Last Filed: 02/09/24 21:44>
[2024-02-02] MEDS ORDERED: CEFTRIAXONE 1,000 MG in NA CHLORIDE 0.9% 50 ML IVPB SCH (09:00)
[2024-02-02] MEDS ORDERED: METOPROLOL TAR 50 MG TAB PO SCH ×2 (09:00→18:00)
[2024-02-02] MEDS: POTASSIUM 25 MEQ EFFERV TAB PO ONE (10:32)
--- NOTE | 2024-02-02 12:59 | P.CNS ---
Date of Consult: 02/02/24 Chief Complaint: hypertensive emergency, elevated trop, hypokal/mag History of Present Illness: Patient with PMH of Hypertension, presented with weakness, headache, found to have high BP, he has not been complaint with medications, denies chest pain, no palpitations, no syncope, no SOLANO. Allergies nitroglycerin Adverse Reaction (Mild, Verified 05/05/23 01:47) Nausea/Vomiting Home medications list reviewed: Yes Home Medications: Allopurinol 300 mg PO DAILY #30 tab 11/14/23 Colchicine [Colcrys *] 0.6 mg PO BID #20 tab 11/14/23 lisinopriL [Prinivil*] 20 mg PO BID #60 tab 11/14/23 Metoprolol Tartrate 100 mg PO BID #60 tab 11/15/23 - Past Medical/Surgical History Diabetic: No -: Hypertension with CKD -: Systolic CHF, EF 35%now improved to 55% -: Noncompliance with medication -: HLD -: right leg surgery Psychosocial/ Personal History: Patient is . 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 moist/pink, EOMI, Sclerae nonicteric Neck: Supple, 2+ carotid pulse no bruit, No LAD, Without JVD or thyroid abnormality Respiratory: Clear to auscultation bilaterally, Normal air movement Cardiovascular: Regular rate/rhythm, Normal S1 S2 Gastrointestinal: Normal bowel sounds, No tenderness Musculoskeletal: No tenderness Integumentary: No rashes Neurological: Normal gait, Normal speech, Normal tone, Normal affect Lymphatics: No axilla or inguinal lymphadenopathy - Problems (1) Hypertensive emergency Current Visit: No Status: Acute Plan: advised patient about of importance of compliance with medications resume metoprolol 100 mg po BID resume Lisinopril 20 mg daily (2) NSTEMI (non-ST elevated myocardial infarction) Current Visit: No Status: Acute Plan: Type 2 TN from hypertensive emergency. no further cardiac work up needed.
[2024-02-02] MEDS: NA CHLORIDE 0.9% 1,000 ML IV ONE (15:58)
[2024-02-02] MEDS: METOPROLOL TAR 50 MG TAB PO SCH (15:58)
[2024-02-02] MEDS: CLINDAMYCIN PHOSPHATE 600 MG in NA CHLORIDE 0.9% 50 ML IV ONE (16:15)
[2024-02-02 16:20] VITALS: TEMP 97.7
--- NOTE | 2024-02-02 16:42 | P.DS ---
Admission Date: 02/01/24 Discharge Date: 02/02/24 Reason for Admission: hypertensive emergency, elevated trop, hypokal/mag Consultations: Dr. Terrazas Brief History of Present Illness: Mr. Padron is a 38-year-old gentleman with past medical history of hypertension with CKD, CHF, hyperlipidemia, gout, and some noncompliance with medications. He was last admitted on 11/12/2023 for hypertensive urgency with neurovascular symptoms. Mr. Padron has been under some stress with a recent diagnosis for his of cancer. He states he has not been taking his medications as well as he had been. He presented to the emergency department today with a chief complaint of shortness of breath and cough worsening over the last 3 days. He also admits to a low-grade temp. On arrival to the emergency department, his blood pressure was 213/150 with a heart rate of 117. He was given his home dose of metoprolol p.o. (100 mg), 40 mg of Lasix IV with 20meq KCL po, and 1 inch Nitropaste to his anterior chest wall. Chest x-ray performed with negative acute abnormality. Repeat blood pressure after 1 hour 171/121 with heart rate of 94. Mr. Padron was given 20 mg of hydralazine IV x 1. His pressure dropped to 169/96 and the hospitalist team was called for admission. At bedside, patient very uncomfortable with persistent cough, feels like his pressure is too low with symptoms of nausea and dizziness, and is anxious and tearful. Discussed plan of care with patient and he became more calm, repeat blood pressure 192/124, heart rate 97, regular, SpO2 97 to 98% on room air. O2 at 2 L applied, magnesium 2 g IV and Cardene drip ordered. We will admit Mr. Padron to the ICU for further evaluation and treatment. Hospital Course: Mr. Padron did well on the Cardene drip. His blood pressure has come down steadily with a systolic in the 140s to 150s. Troponin trending down, electrolyte replacement in progress. Mr. Padron was seen by Dr. Terrazas for non- STEMI and hypertensive urgency. Patient encouraged to stay on medication regim en and not skip doses. Mr. Padron did have fever to 101.8 last p.m., his chest x-ray is clear, flu and SARS negative, blood cultures were sent and Rocephin was initiated. He remembers now that he has a significant dental infection and even called the dentist last Saturday. He is feeling significantly better and wishes discharge. We will restart his metoprolol 100 mg p.o. twice daily and his annika nopril 20 mg p.o. twice daily. Mr. Padron has been cautioned to avoid nephrotoxic medication such as NSAIDs and colchicine. He was unaware until recently that those medication should not be taken daily. Clindamycin 300 mg p.o. 3 times daily for dental infection will be supplied and Mr. Padron needs to follow-up with his dentist as soon as possible. He should follow-up with his PCP in 1 week, and with Dr. Terrazas in 1 to 2 weeks. <Elba Pearce - Last Filed: 02/02/24 16:35> Admission Date: 02/01/24 Discharge Date: 02/02/24 Hospital Course: Patient was seen and examined. Events of the last 24 hours have been noted. Spoke with with [facility] regarding patient's clinical picture after evaluating and e xamining the patient independently. I performed a substantial part of the MDM during this patient's care today. I personally made or approved the documented management plan and acknowledge its risk of complications. I agree with the findings and documentation provided in the [facility]'s notes. <Nelly Pinon - Last Filed: 02/09/24 21:53> Disposition: ROUTINE DISCHARGE Discharge Condition: GOOD Vital Signs/Physical Exam: Temp Pulse Resp BP Pulse Ox 97.7 F 76 20 141/92 H 95 02/02/24 16:00 02/02/24 16:00 02/02/24 16:00 02/02/24 16:00 02/02/24 16:00 General: Alert, In no apparent distress, Oriented x3, Other (Nasal congestion) HEENT: Atraumatic, Normocephalic Neck: Supple Respiratory: Normal air movement Cardiovascular: No edema, Normal pulses, Regular rate/rhythm Capillary refill: <2 Seconds Gastrointestinal: Soft and benign Musculoskeletal: No clubbing Integumentary: No rashes Neurological: Normal speech, Normal tone, Normal affect Lymphatics: No axilla or inguinal lymphadenopathy External genitalia: Deferred Rectal: Deferred Laboratory Data at Discharge: WBC 9.70 thou/uL (4.3-10.9) 02/02/24 05:29 Hgb 13.3 g/dL (13.6-17.9) L 02/02/24 05:29 Hct 39.4 % (39.6-49.0) L 02/02/24 05:29 Plt Count 320 thou/uL (152-406) 02/02/24 05:29 PT 12.3 SECONDS (9.4-12.5) 02/01/24 14:20 INR 1.10 02/01/24 14:20 APTT 28.3 SECONDS (24.3-36.9) 02/01/24 14:20 Sodium 128 mEq/L (136-145) L D 02/02/24 05:29 Potassium 2.9 mEq/L (3.5-5.1) L 02/02/24 05:29 BUN 19 mg/dL (7-18) H 02/02/24 05:29 Creatinine 1.70 mg/dL (0.70-1.30) H 02/02/24 05:29 Glucose 106 mg/dL (74-106) 02/02/24 05:29 Uric Acid 11.9 mg/dL (3.5-7.2) H 02/01/24 14:20 Phosphorus 3.3 mg/dL (2.5-4.9) 02/02/24 05:29 Magnesium 2.1 mg/dL (1.6-2.4) 02/02/24 05:29 Total Bilirubin 0.5 mg/dL (0.2-1.0) 02/02/24 05:29 AST 23 U/L (15-37) 02/02/24 05:29 ALT 25 U/L (16-61) 02/02/24 05:29 Alkaline Phosphatase 86 U/L (45-117) 02/02/24 05:29 Triglycerides 129 mg/dL (<150) 02/02/24 05:29 Cholesterol 225 mg/dL (<200) H 02/02/24 05:29 HDL Cholesterol 42 mg/dL (40-60) 02/02/24 05:29 Cholesterol/HDL Ratio 5.36 02/02/24 05:29 <Pearce,Elba Seven - Last Filed: 02/02/24 16:35> Vital Signs/Physical Exam: Temp Pulse Resp BP Pulse Ox 97.7 F 76 20 148/98 H 95 02/02/24 16:00 02/02/24 16:00 02/02/24 16:00 02/02/24 17:00 02/02/24 16:00 Laboratory Data at Discharge: WBC 9.70 thou/uL (4.3-10.9) 02/02/24 05:29 Hgb 13.3 g/dL (13.6-17.9) L 02/02/24 05:29 Hct 39.4 % (39.6-49.0) L 02/02/24 05:29 Plt Count 320 thou/uL (152-406) 02/02/24 05:29 PT 12.3 SECONDS (9.4-12.5) 02/01/24 14:20 INR 1.10 02/01/24 14:20 APTT 28.3 SECONDS (24.3-36.9) 02/01/24 14:20 Sodium 128 mEq/L (136-145) L D 02/02/24 05:29 Potassium 3.2 mEq/L (3.5-5.1) L 02/02/24 16:50 BUN 19 mg/dL (7-18) H 02/02/24 05:29 Creatinine 1.70 mg/dL (0.70-1.30) H 02/02/24 05:29 Glucose 106 mg/dL (74-106) 02/02/24 05:29 Uric Acid 11.9 mg/dL (3.5-7.2) H 02/01/24 14:20 Phosphorus 3.3 mg/dL (2.5-4.9) 02/02/24 05:29 Magnesium 2.1 mg/dL (1.6-2.4) 02/02/24 05:29 Total Bilirubin 0.5 mg/dL (0.2-1.0) 02/02/24 05:29 AST 23 U/L (15-37) 02/02/24 05:29 ALT 25 U/L (16-61) 02/02/24 05:29 Alkaline Phosphatase 86 U/L (45-117) 02/02/24 05:29 Triglycerides 129 mg/dL (<150) 02/02/24 05:29 Cholesterol 225 mg/dL (<200) H 02/02/24 05:29 HDL Cholesterol 42 mg/dL (40-60) 02/02/24 05:29 Cholesterol/HDL Ratio 5.36 02/02/24 05:29 <Nelly Pinon - Last Filed: 02/09/24 21:53> Diet: AHA Activity: Ad noble <Elba Pearce - Last Filed: 02/02/24 16:35> <Nelly Pinon - Last Filed: 02/09/24 21:53> Home Medications: clindamycin HCL [Clindamycin HCl] 300 mg PO TID #20 cap 02/02/24 lisinopriL [Prinivil*] 20 mg PO BID #60 tab 02/02/24 Colchicine [Colcrys *] 0.6 mg PO BID PRN 02/05/24 Amlodipine [Norvasc*] 10 mg PO DAILY #30 tab 02/07/24 Atorvastatin Calcium [Lipitor] 40 mg PO BEDTIME #30 tab 02/07/24 Hydralazine [Apresoline*] 25 mg PO TID #90 tab 02/07/24 Metoprolol Succinate [Toprol Xl*] 100 mg PO [id number] #30 tab 02/07/24 New Medications: clindamycin HCL [Clindamycin HCl] 300 mg PO TID #20 cap lisinopriL [Prinivil*] 20 mg PO BID #60 tab Physician Discharge Instructions: Mr. Padron did well on the Cardene drip. His blood pressure has come down steadily with a systolic in the 140s to 150s. Troponin trending down, electrolyte replacement in progress. Mr. Padron was seen by Dr. Terrazas for non- STEMI and hypertensive urgency. Patient encouraged to stay on medication regimen and not skip doses. Mr. Padron did have fever to 101.8 last p.m., his chest x-ray is clear, flu and SARS negative, blood cultures were sent and Rocephin was initiated. He remembers now that he has a significant dental infection and even called the dentist last Saturday. He is feeling significantly better and wishes discharge. We will restart his metoprolol 100 mg p.o. twice daily and his lisinopril 20 mg p.o. twice daily. Mr. Padron has been cautioned to avoid nephrotoxic medication such as NSAIDs and colchicine. He was unaware until recently that those medication should not be taken daily. Clindamycin 300 mg p.o. 3 times daily for dental infection will be supplied and Mr. Padron needs to follow-up with his dentist as soon as possible. He should follow-up with his PCP in 1 week, and with Dr. Terrazas in 1 to 2 weeks. New prescriptions: Clindamycin 300mg po TID x 10d #30 will refill Metoprolol 100mg po BID and Lisinopril 20mg po BID May take Tylenol as directed at home for pain, do not take on empty stomach Continue home medicines as previously prescribed GOAL: Clear understanding of disease process Diet: ADA, low sodium Activity: Ad onble. INSTRUCTIONS: Physician Discharge Instructions: Okay to DC IV and DC home Follow-up with primary care provider in 1 week Follow-up with dentist as soon as possible Follow-up with cardiology in 2-weeks Please call the inpatient unit for any questions or concerns regarding hospital stay Return to the ER for worsening symptoms Followup: NONE,NONE [Primary Care Provider] -
[2024-02-02 17:36] VITALS: BP 148/98
[2024-02-03] MEDS ORDERED: METOPROLOL TAR 50 MG TAB PO SCH (09:00)
--- NOTE | 2024-02-03 10:21 | EKG ---
Test Date: 2024-02-01 Test Time: 10:53:28 Rn Cardiovascular: ANDREW MEASUREMENT RESULTS: Intervals: Rate: 110 [place]: 154 QRSD: 108 QT: 374 QTc: 506 [place]: P: 62 [place]: 154 QRS: 4 T: 147 INTERPRETIVE STATEMENTS: Sinus tachycardia Biatrial enlargement Left ventricular hypertrophy with repolarization abnormality Abnormal ECG Compared to ECG 11/12/2023 07:24:14 Sinus rhythm no longer present Left-axis deviation no longer present Prolonged QT interval no longer present Electronically Signed On 02-03-24 10:20:01 CDT by Rich Terrazas
== END 2024-02-02 17:48 | disposition home or self-care (01) | DRG 281 ==
LOC: ER 10:35 → ERHOLD 13:33 → 3RD-ICU 14:21
PROVIDERS: ADMIT Hospitalist; ATTEND Hospitalist
DX: I16.1 Hypertensive emergency (principal); E87.1 Hypo-osmolality and hyponatremia; I21.A1 Myocardial infarction type 2; I50.22 Chronic systolic (congestive) heart failure; I13.0 Hypertensive heart and chronic kidney disease with heart failure and stage 1 through stage 4 chronic kidney disease, or unspecified chronic kidney disease; N18.9 Chronic kidney disease, unspecified; E87.6 Hypokalemia; E83.42 Hypomagnesemia; E78.5 Hyperlipidemia, unspecified; M10.9 Gout, unspecified; T50.2X5A Adverse effect of carbonic-anhydrase inhibitors, benzothiadiazides and other diuretics, initial encounter; Z11.52 Encounter for screening for COVID-19; Z79.52 Long term (current) use of systemic steroids; Z79.899 Other long term (current) drug therapy; Z87.891 Personal history of nicotine dependence; Z91.148 Patient's other noncompliance with medication regimen for other reason
CPT/HCPCS: 36415; 71045; 80048; 80053; 80061; 80076; 81001; 83605; 83615; 83735; 83880; 84100; 84132; 84484; 84550; 85025; 85610; 85730; 87040; 87086; 87088; 87804; 87811; 93005; 94640; 99285; J0360; J0696; J1644; J1940; J2470; J3475; J3480; J7030; J7050; J7613; J7644

== ENCOUNTER 2024-02-05 11:48 | Inpatient (IN) | payer OTHER ==
[2024-02-05 12:24] LABS: Absolute Basophils 0.1 K/uL (0-0.5); Absolute Eosinophils 0.4 K/uL (0-0.5); Absolute Monocytes 1.3 K/uL (0.1-1.3); Absolute Neutrophil 11.1 K/uL (1.8-8.0); Basophils % 0.8 % (0-1.3); Eosinophils % 2.9 % (0-4.4); Hematocrit 44.2 % (39.6-49.0); Hemoglobin 14.8 g/dL (13.6-17.9); Lymphocytes % 13.5 % (15.3-44.8); MCH 28.7 pg (27.0-35.0); MCHC 33.4 g/dL (32.0-36.0); MCV 85.9 fL (80-100); MPV 7.6 fL (7.6-11.3); Monocytes % 8.5 % (3.3-12.3); Neutrophils % 74.3 % (41.7-73.7); Platelets 422 thou/uL (152-406); RBC Red Blood Cell Count 5.14 M/uL (4.33-5.43); Red Cell Distribution Width 13.9 % (12.1-15.2)
[2024-02-05 12:29] LABS: PTT, Activated Partial Thromb 29.6 SECONDS (24.3-36.9); Protime INR 0.98
--- NOTE | 2024-02-05 12:29 | RAD REPORT ---
EXAMINATION: CTA HEAD CLINICAL INDICATION: Male, 38 years old. STROLE ALERT TECHNIQUE: Axial CT images were obtained through the head after intravenous contrast utilizing angiog raphic protocol with 3D post-processing (maximum intensity projection images, volume rendered images and/or shaded surface rendered images). One or more of the following dose reduction technique s were used: Automated exposure control, adjustment of the mA and/or kV according to patient size, and/or iterative reconstruction. Unless otherwise specified, incidental findings do not require dedic ated imaging follow-up. COMPARISON: 11/12/2023 FINDINGS: ICA: The petrous, cavernous, and supraclinoid segments of the bilateral internal carotid arteries are normal. The ophthalmic artery origins are visualized and normal. The posterior communicating arteries are patent. MARKIE: Anterior cerebral arteries are normal bilaterally. The anterior communicating artery is patent. MCA: Middle cerebral arteries are normal bilaterally. FOREIGN EXCHANGE CLERK: Posterior cerebral arteries are normal bilaterally. Vertebrobasilar: The vertebral arteries are patent. The basilar artery is normal in appearance. 3D images confirm these findings. IMPRESSION: No occlusion, aneurysm, or stenosis identified.
--- NOTE | 2024-02-05 12:36 | RAD REPORT ---
EXAMINATION: CTA NECK CLINICAL INDICATION: Male, 38 years old. dizziness, HTN TECHNIQUE: Axial CT images were obtained from the aortic arch to the skull base after intravenous con trast utilizing angiographic protocol with 3D post-processing (maximum intensity projection images, volume rendered images and/or shaded surface rendered images). One or more of the following dose redu ction techniques were used: Automated exposure control, adjustment of the mA and/or kV according to patient size, and/or iterative reconstruction. Unless otherwise specified, incidental findings do not require dedicated imaging follow-up. [id number]. NASCET criteria used. Mild 0-49% stenosis Moderate 50-69% stenosis Severe 70-99% stenosis COMPARISON: 11/12/2023. FINDINGS: AORTA: The imaged aortic arch is normal. CCA: The common carotid arteries are patent and normal in caliber. ICA/ECA: Bilateral internal and external carotid arteries are patent. There is no significant interna l carotid artery stenosis. Where applicable, degree of stenosis is measured using NASCET-like criteria. VERTEBRAL: The cervical vertebral arteries are patent and codominant. SOFT TISSUE: Cervical chain lymphadenopathy which is nonspecific and may be reactive. For example, a left supraclavicular lymph node measures 15 mm in short axis. Some of the superior mediastinal lymph nodes are identified are also enlarged. Patchy ground glass opacities are present in the lungs. The visualized lung apices are clear. 3D images confirm these findings. IMPRESSION: 1. No flow limiting stenosis identified within the neck. No dissection. 2. Groundglass opacities within the upper lobes that are partially imaged and concerning for pneumoni a/pneumonitis. Acute pulmonary edema, cardiogenic or otherwise, is also within differential. 3. Nonspecific cervical chain lymphadenopathy which may be reactive but is little changed from prior. Suggest clinical follow-up.
[2024-02-05 12:41] LABS: Anion Gap 8.7 mEq/L (5.0-15.0); Magnesium 1.8 mg/dL (1.6-2.4); Potassium 3.7 mEq/L (3.5-5.1)
[2024-02-05 12:46] LABS: Troponin High Sensitivity 84.3 pg/mL (<58.9)
--- NOTE | 2024-02-05 13:10 | ER ---
Nurse's Notes [facility] Name: Ezequiel Padron Age: 38 yrs Sex: Male : 1985 Arrival Date: 02/05/2024 Time: 11:48 Bed 3 Private MD: Diagnosis: Unspecified combined systolic (congestive) and diastolic (congestive) heart failure;Dizziness and giddiness;Essential (primary) hypertension Presentation: 02/04 11:55 Chief complaint: Patient states: had a cough and shortness of breath for about a week. tm6 Last night I started to feel dizzy and today I'm still feeling dizzy. Coronavirus screen: Vaccine status: Patient reports receiving the 2nd dose of the covid vaccine. Ebola Screen: Patient negative for fever greater than or equal to 101.5 degrees Fahrenheit, and additional compatible Ebola Virus Disease symptoms Patient denies exposure to infectious person. Patient denies travel to an Ebola-affected area in the 21 days before illness onset. No symptoms or risks identified at this time. Initial Sepsis Screen: Does the patient meet any 2 criteria? No. Patient's initial sepsis screen is negative. Does the patient have a suspected source of infection? No. Patient's initial sepsis screen is negative. Risk Assessment: Do you want to hurt yourself or someone else? Patient reports no desire to harm self or others. Onset of symptoms was February 04, 2024. 11:55 Method Of Arrival: Ambulatory tm6 11:55 Acuity: HERMELINDA 3 tm6 Triage Assessment: 11:58 General: Appears in no apparent distress. Behavior is calm, cooperative. Pain: Denies tm6 pain. EENT: No signs and/or symptoms were reported regarding the EENT system. Neuro: Level of Consciousness is awake, alert, obeys commands, Oriented to person, place, time, situation, Reports dizziness, since last night. Cardiovascular: Patient's skin is warm and dry. Respiratory: Reports shortness of breath since a week ago cough that is since a week ago Onset: The symptoms/episode began/occurred a week ago, the patient has mild shortness of breath. GI: No signs and/or symptoms were reported involving the gastrointestinal system. Abdomen is round non-distended. : No signs and/or symptoms were reported regarding the genitourinary system. Derm: No signs and/or symptoms reported regarding the dermatologic system. Musculoskeletal: No signs and/or symptoms reported regarding the musculoskeletal system. Historical: - Allergies: 11:56 No Known Allergies; tm6 - PMHx: 11:56 Congestive heart failure; Hypertensive disorder; tm6 - PSHx: 11:56 None; tm6 - Immunization history:: Client reports receiving the 2nd dose of the Covid vaccine. - Infectious Disease History:: Denies. - Social history:: Smoking status: Patient reports the use of cigarette tobacco products, denies chronic smoking, but will smoke occasionally, Patient uses alcohol, on a daily basis. - Family history:: not pertinent. - Hospitalizations: : No recent hospitalization is reported. Screenin:10 VAN Screening: Arm Drift: Patient shows no arm weakness. Patient is VAN negative. es3 Visual Disturbance: No visual disturbance noted. Aphasia: No aphasia noted. Neglect: No neglect noted. 12:28 [facility] ED Fall Risk Assessment (Adult) History of falling in the last 3 months, rs5 including since admission No falls in past 3 months (0 pts) Confusion or Disorientation No (0 pts) Intoxicated or Sedated No (0 pts) Impaired Gait No (0 pts) Mobility Assist Device Used No (0 pt) Altered Elimination No (0 pt) Score/Fall Risk Level 0 - 2 = Low Risk Oriented to surroundings, Maintained a safe environment, Hourly rounding (assess needs \T\ fall precautionary measures) done. Abuse screen: Denies threats or abuse. Denies injuries from another. Nutritional screening: No deficits noted. Tuberculosis screening: No symptoms or risk factors identified. 12:32 [place] Swallow Protocol Brief Cognitive Screen What is your name? Normal, Where are you rs5 right now? Normal, What year is it? Normal. Oral Mechanism Examination Facial Symmetry: Normal, Motion: Normal, Lip Closure: Normal, Oral Mechanism Result: Normal. 3 oz Water Swallow Challenge: Pt able to drink all water without stopping, coughing, choking or throat clearing: Yes Result: ELISSA FREDERICK Notified: Kirby Cortes MD. Assessment: 12:29 General: Appears in no apparent distress. comfortable, Behavior is calm, cooperative. rs5 Pain: Denies pain. Neuro: Level of Consciousness is awake, alert, obeys commands, Oriented to person, place, time, situation, Ski Production Supervisor are equal bilaterally Moves all extremities. Full function Gait is steady, Speech is normal, Facial symmetry appears normal, Facial symmetry: tongue is midline, Pupils are PERRLA, Intact Reports dizziness. Cardiovascular: Reports lightheadedness, shortness of breath, Capillary refill < 3 seconds in bilateral fingers Patient's skin is warm and dry. Respiratory: Reports shortness of breath cough that is Airway is patent Respiratory effort is even, unlabored. GI: No signs and/or symptoms were reported involving the gastrointestinal system. Derm: Skin is pink, warm \T\ dry. 14:31 Cardiovascular: Rhythm is sinus rhythm. ph Vital Signs: 11:54 Temp 98(O); Weight 104.33 kg; Height 6 ft. 0 in. ; Pain 0/10; tm6 11:55 BP 198 / 135; Pulse 81; Resp 19; Pulse Ox 97% on R/A; MAP 154 mmHg; tm6 12:33 BP 196 / 152; Pulse 75; Resp 18; Pulse Ox 99% on R/A; ph 13:25 BP 179 / 135; Pulse 73; Resp 18; Pulse Ox 98% on R/A; ph 14:30 BP 176 / 115; Pulse 75; Resp 18; Temp 97.9; Pulse Ox 99% on R/A; ph 11:54 Body Mass Index 31.19 (104.33 kg, 182.88 cm) tm6 11:54 Pain Scale: Adult tm6 NIH Stroke Scale Scores: 12:05 NIHSS Score: 0 rs5 ED Course: 11:51 Patient arrived in ED. mg5 11:53 Kirby Cortes MD is Attending Physician. rn 11:56 Triage completed. tm6 11:58 Arm band placed on right wrist. tm6 12:13 Initial lab(s) drawn, by ED staff, sent to lab. Inserted saline lock: 22 gauge in right rs5 antecubital area, using aseptic technique. Blood collected. Flushed with 10 mL NS. 12:18 Mario Tinsley, SAMANTHA is Primary Nurse. rs5 12:19 CT Stroke Brain w/o Contrast In Process Unspecified. EDMS 12:25 CT Neck Angio In Process Unspecified. EDMS 12:25 Head angio In Process Unspecified. EDMS 12:25 EKG done, by ED staff, reviewed by Kirby Cortes MD. rs5 12:31 Patient has correct armband on for positive identification. Placed in gown. Bed in low rs5 position. Call light in reach. Side rails up X2. Client placed on continuous cardiac and pulse oximetry monitoring. NIBP monitoring applied. nurse staff industrial on. Door closed. Noise minimized. Warm blanket given. 12:33 Meaghan Gonzales, RN is Primary Nurse. ph 12:57 Stroke CXR 1 View In Process Unspecified. EDMS 13:08 Nelly Pinon MD is Hospitalizing Provider. rn 14:30 No provider procedures requiring assistance completed. Patient admitted, IV remains in ph place. 14:39 1439 CM met with at the bedside in the ED exam room. Patient identified by ane name and . Demographic sheet confirmed and changes sent to appropriate personnel. Patient states he lives with his Eliza in a 2nd floor apartment and that prior to admission, he performs ADLs independently. No HH, no DME, no home oxygen or medical services at this time. Patient states he does not have an MPOA or PCP at this time. He wishes to return home upon discharge and that Eliza can transport him home. CM team will continue to follow and coordinate care during this hospital stay. Administered Medications: 13:20 Drug: hydrALAZINE IVP 10 mg IVP once Route: IVP; Site: right antecubital; ph 14:31 Follow up: Response: No adverse reaction; Blood pressure is lowered ph 13:20 Drug: Aspirin PO 325 mg PO once Route: PO; ph 14:31 Follow up: Response: No adverse reaction ph Medication: 12:34 VIS not applicable for this client. ph Outcome: 13:09 Decision to Hospitalize by Provider. rn 15:35 Patient left the ED. bp NIH Stroke Scale - NIH Stroke Score Date: 02/05/2024 Time: 12:05 Total Score = 0 10. Dysarthria (speech clarity - read or repeat words) - 0(Normal) 11. Extinction and Inattention (visual/tactile/auditory/spatial/personal) - 0(No abnormality) 1a. Level of Consciousness (LOC) - 0(Alert) 1b. Level of Consciousness (LOC) (Month \T\ Age) - 0(Both) 1c. LOC Commands (Open \T\ Closes Eyes/Inseamer) - 0(Both) 2. Best Gaze (Lateral Gaze Paresis) - 0(Normal) 3. Visual Field Loss - 0(No visual loss) 4. Facial Palsy - 0(Normal) 5a. Left Arm: Motor (10-second hold) - 0(No drift) 5b. Right Arm: Motor (10-second hold) - 0(No drift) 6a. Left Leg: Motor (5-second hold - always test supine) - 0(No drift) 6b. Right Leg: Motor (5-second hold - always test supine) - 0(No drift) 7. Limb Ataxia (finger/nose \T\ heel/dixon - test with eyes open) - 0(Absent) 8. Sensory Loss (pinprick arms/legs/face) - 0(Normal) 9. Best Language: Aphasia (description/naming/reading) - 0(No aphasia) Initials: rs5 Signatures: Dispatcher [employer] EDKirby Camejo MD MD rn Hall, Patricia RN Hesham Ellison ph, SAMANTHA RN Mario Bragg RN RN rs5 Cyndee Conway 5 Sultana Mckinney RN RN tm6 Natali Blackwood RN RN es3 Ernestina Garcia RN RN ane
--- NOTE | 2024-02-05 13:10 | EDPHYS ---
Physician Documentation [facility] Name: Ezequiel Padron Age: 38 yrs Sex: Male : 1985 Arrival Date: 02/05/2024 Time: 11:48 Bed 3 Private MD: ED Physician Kirby Cortes HPI: 02/04 12:05 This 38 yrs old Black Male presents to ER via Ambulatory with complaints of Dizziness, rn Cough, Shortness Of Breath. 12:05 The patient presents with dizziness, feeling off balance, sense of spinning. Onset: The rn symptoms/episode began/occurred this morning. Modifying factors: The symptoms are alleviated by closing eyes, holding head still, the symptoms are aggravated by movement of head, standing up, changing position. Severity of symptoms: At their worst the symptoms were moderate in the emergency department the symptoms are unchanged. The patient has not experienced similar symptoms in the past. Patient reports woke up at 2 AM to use the bathroom, felt dizzy and felt sensation of spinning at that time. Denies focal weakness or numbness. No headache. Reports shortness of breath and cough productive of green sputum. No fever or chills. No trauma. No neck stiffness. No vision changes or speech changes. Was seen here recently and recommendation was to admit, he left against advice because he had to work. Patient reports still having cough and shortness of breath which is why he was seen that time that has not improved. No chest pain. Historical: - Allergies: 11:56 No Known Allergies; tm6 - PMHx: 11:56 Congestive heart failure; Hypertensive disorder; tm6 - PSHx: 11:56 None; tm6 - Immunization history:: Client reports receiving the 2nd dose of the Covid vaccine. - Infectious Disease History:: Denies. - Social history:: Smoking status: Patient reports the use of cigarette tobacco products, denies chronic smoking, but will smoke occasionally, Patient uses alcohol, on a daily basis. - Family history:: not pertinent. - Hospitalizations: : No recent hospitalization is reported. ROS: 12:05 Constitutional: Negative for fever, chills, and weight loss, Eyes: Negative for injury, rn pain, redness, and discharge, Neck: Negative for injury, pain, and swelling, Cardiovascular: Negative for chest pain, palpitations, and edema, Respiratory: Positive for cough and shortness of breath Abdomen/GI: Negative for abdominal pain, nausea, vomiting, diarrhea, and constipation, MS/Extremity: Negative for injury and deformity, Skin: Negative for injury, rash, and discoloration, Neuro: Positive for dizziness, negative for weakness or numbness Exam: 12:05 Constitutional: This is a well developed, well nourished patient who is awake, alert, rn and in no acute distress. Head/Face: Normocephalic, atraumatic. Eyes: Pupils equal round and reactive to light, extra-ocular motions intact. Neck: No neck stiffness Cardiovascular: Regular rate and rhythm. No pulse deficits. Respiratory: No increased work of breathing, no retractions or nasal flaring. MS/ Extremity: Pulses equal, no cyanosis. Neurovascular intact. Full, normal range of motion. Equal circumference. Neuro: Awake and alert, GCS 15, oriented to person, place, time, and situation. Cranial nerves II-XII grossly intact. Motor strength 5/5 in all extremities. Sensory grossly intact. Ambulatory to triage without assistance. No gross ataxia noted Vital Signs: 11:54 Temp 98(O); Weight 104.33 kg; Height 6 ft. 0 in. ; Pain 0/10; tm6 11:55 BP 198 / 135; Pulse 81; Resp 19; Pulse Ox 97% on R/A; MAP 154 mmHg; tm6 12:33 BP 196 / 152; Pulse 75; Resp 18; Pulse Ox 99% on R/A; ph 13:25 BP 179 / 135; Pulse 73; Resp 18; Pulse Ox 98% on R/A; ph 14:30 BP 176 / 115; Pulse 75; Resp 18; Temp 97.9; Pulse Ox 99% on R/A; ph 11:54 Body Mass Index 31.19 (104.33 kg, 182.88 cm) tm6 11:54 Pain Scale: Adult tm6 NIH Stroke Scale Scores: 12:05 NIHSS Score: 0 rs5 MDM: 11:53 Patient medically screened. rn 12:36 ED course: No acute findings in ct head per Dr. Diop. Pt not TNKase candidate due rn to symptoms present as early as 0200, outside of window. Complains more of sob than dizziness. . 13:07 Differential diagnosis: CVA, generalized weakness, idiopathic dizziness, TIA, vertigo, rn Hypertensive emergency. Data reviewed: vital signs, nurses notes, lab test result(s), EKG, radiologic studies, CT scan, plain films, and as a result, I will admit patient. Consideration of Admission/Observation Patient was admitted/placed on observation. Escalation of care including admission/observation considered. Care significantly affected by the following chronic conditions: Hypertension, Congestive Heart Failure. Counseling: I had a detailed discussion with the patient and/or guardian regarding the historical points, exam findings, and any diagnostic results supporting the discharge/admit diagnosis, lab results, radiology results, the need for further work-up and treatment in the hospital. 13:07 ED course: CT head and head and neck angio negative for acute vascular abnormality. rn Elevated troponin and BNP. Dizziness likely secondary to uncontrolled hypertension and dyspnea likely secondary to congestive heart failure and uncontrolled hypertension. Admitted to hospitalist service for further care. 13:07 ED course: I personally spent 35 minutes engaged in work directly related to the rn individual patient's care. This does not include any time spent performing procedures. The patient has been deemed critically ill because of uncontrolled hypertension, malignant hypertension requiring IV antihypertensive in the setting of congestive heart failure and pulmonary edema as well as organization of admission to the hospital.. 13:22 ED course: NIH 0. rn 02/04 12:04 Order name: Basic Metabolic Panel; Complete Time: 12:53 rn 02/04 12:04 Order name: CBC with Diff; Complete Time: 12:53 rn 02/04 12:04 Order name: High Sensitivity Troponin; Complete Time: 12:53 rn 02/04 12:04 Order name: Magnesium; Complete Time: 12:53 rn 02/04 12:04 Order name: Protime (+inr); Complete Time: 12:53 rn 02/04 12:04 Order name: Ptt, Activated; Complete Time: 12:53 rn 02/04 12:05 Order name: BNP; Complete Time: 12:53 rn 02/04 12:25 Order name: Glucose, Ancillary Testing; Complete Time: 12:53 EDNJ 02/04 12:36 Order name: CREATININE WHOLE BLOOD; Complete Time: 12:53 EDNJ 02/04 13:48 Order name: T4 Free EDNJ 02/04 13:48 Order name: Thyroid Stimulating Hormone EDNJ 02/04 13:48 Order name: Basic Metabolic Panel EDNJ 02/04 13:48 Order name: Basic Metabolic Panel EDNJ 02/04 13:48 Order name: CBC with Automated Diff EDMS 02/04 13:48 Order name: CBC with Automated Diff EDMS 02/04 13:48 Order name: Lipid Profile EDMS 02/04 13:48 Order name: Lipid Profile EDMS 02/04 13:48 Order name: Magnesium EDMS 02/04 13:48 Order name: Magnesium EDMS 02/04 13:48 Order name: Phosphorus EDMS 02/04 13:48 Order name: Phosphorus EDMS 02/04 13:48 Order name: Troponin High Sensitivity EDMS 02/04 13:48 Order name: Troponin High Sensitivity EDMS 02/04 13:48 Order name: Troponin High Sensitivity EDMS 02/04 12:04 Order name: CT Neck Angio; Complete Time: 12:53 rn 02/04 12:04 Order name: CT Stroke Brain w/o Contrast rn 02/04 12:04 Order name: Stroke CXR 1 View rn 02/04 12:08 Order name: Head angio; Complete Time: 12:53 EDMS 02/04 12:04 Order name: EKG; Complete Time: 12:04 rn 02/04 12:04 Order name: Accucheck; Complete Time: 12:19 rn 02/04 12:04 Order name: Cardiac monitoring; Complete Time: 12:35 rn 02/04 12:04 Order name: EKG - Nurse/Tech; Complete Time: 12:19 rn 02/04 12:04 Order name: IV Saline Lock; Complete Time: 12:19 rn 02/04 12:04 Order name: Labs collected and sent; Complete Time: 12:19 rn 02/04 12:04 Order name: NPO; Complete Time: 12:19 rn 02/04 12:04 Order name: O2 Per Protocol; Complete Time: 12:19 rn 02/04 12:04 Order name: O2 Sat Monitoring; Complete Time: 12:19 rn 02/04 12:04 Order name: Stroke Swallow Screen; Complete Time: 12:35 rn Administered Medications: 13:20 Drug: hydrALAZINE IVP 10 mg IVP once Route: IVP; Site: right antecubital; ph 14:31 Follow up: Response: No adverse reaction; Blood pressure is lowered ph 13:20 Drug: Aspirin PO 325 mg PO once Route: PO; ph 14:31 Follow up: Response: No adverse reaction ph Disposition Summary: 02/05/24 13:09 Hospitalization Ordered Notes: Hospitalization Status: Inpatient Admission rn Provider: Nelly Pinon rn Location: Telemetry/MedSurg (Inpatient) rn Condition: Stable rn Problem: new rn Symptoms: are unchanged rn Bed/Room Type: Standard rn Room Assignment: 209(02/05/24 14:24) bd Diagnosis - Unspecified combined systolic (congestive) and diastolic (congestive) heart failure rn - Dizziness and giddiness rn - Essential (primary) hypertension rn Forms: - Medication Reconciliation Form rn - SBAR form rn - Leadership Thank You Letter return clerk time excluding procedures: 13:07 Critical care time: Bedside Care: 35 minutes. Total time: 35 minutes rn NIH Stroke Scale - NIH Stroke Score Date: 02/05/2024 Time: 12:05 Total Score = 0 10. Dysarthria (speech clarity - read or repeat words) - 0(Normal) 11. Extinction and Inattention (visual/tactile/auditory/spatial/personal) - 0(No abnormality) 1a. Level of Consciousness (LOC) - 0(Alert) 1b. Level of Consciousness (LOC) (Month \T\ Age) - 0(Both) 1c. LOC Commands (Open \T\ Closes Eyes/[place] [employer] Operator) - 0(Both) 2. Best Gaze (Lateral Gaze Paresis) - 0(Normal) 3. Visual Field Loss - 0(No visual loss) 4. Facial Palsy - 0(Normal) 5a. Left Arm: Motor (10-second hold) - 0(No drift) 5b. Right Arm: Motor (10-second hold) - 0(No drift) 6a. Left Leg: Motor (5-second hold - always test supine) - 0(No drift) 6b. Right Leg: Motor (5-second hold - always test supine) - 0(No drift) 7. Limb Ataxia (finger/nose \T\ heel/dixon - test with eyes open) - 0(Absent) 8. Sensory Loss (pinprick arms/legs/face) - 0(Normal) 9. Best Language: Aphasia (description/naming/reading) - 0(No aphasia) Initials: rs5 Signatures: Dispatcher [employer] EDRenee Gonzalez Roman, MD MD rn Hall, Patricia, RN RN Faye, Tawney, RN RN tm6 Corrections: (The following items were deleted from the chart) 12:04 Neck Angio+CT.RAD.BRZ ordered. EDMS EDMS 1424 13:09 pippa parikh
[2024-02-05] MEDS ORDERED: ASPIRIN 325 MG TAB ONE (13:11)
[2024-02-05] MEDS ORDERED: HYDRALAZINE HCL 20 MG/ML VIAL ONE (13:11)
--- NOTE | 2024-02-05 13:24 | RAD REPORT ---
EXAMINATION: ONE VIEW CHEST XR CLINICAL INDICATION: Male, 38 years old.dizziness TECHNIQUE: 1 View, AP supine, X-ray of the chest was performed. [id number]. COMPARISON: 02/01/2024 FINDINGS: Lungs and pleura: Clear lungs. No effusion. Heart and mediastinum: Cardiomegaly Unremarkable mediastinal contours. Osseous structures: No acute abnormality. Tubes/lines: None Other: None. IMPRESSION: No acute intrathoracic abnormality.
[2024-02-05] MEDS ORDERED: ACETAMINOPHEN 325 MG TABLET PO PRN (13:37)
--- NOTE | 2024-02-05 13:59 | P.HP ---
Certification for Inpatient Patient admitted to: Observation With expected LOS: <2 Midnights Patient will require the following post-hospital care: None Practitioner: I am a practitioner with admitting privileges, knowledge of patient current condition, hospital course, and medical plan of care. Services: Services provided to patient in accordance with Admission requirements found in Title 42 Section 412.3 of the Code of Federal Regulations Patient History Date of Service: 02/05/24 Reason for admission: HTN emergency History of Present Illness: Ezequiel Padron is a 38 year old male with Pmhx HTN, CHF, CKD, and medication noncompliance who presents to the ED with chief complaint high blood pressure, dizziness, sense of spinning. He was recently discharged on February 01 because he needed to report to his job. Now that his job is aware of his need to be hospitalized he has returned to the ED. His initial BP 198/135 which has responded to hydralazine dropping SBP 173. On examiniation, he continues to have a headache with dizziness. CT head, CTA head/neck are negative for acute findings. Troponin elevated but trending down from 5 days ago. Ezequiel will be admitted to hospitalist service for further treatment of hypertensive urgency. Allergies nitroglycerin Adverse Reaction (Mild, Verified 05/05/23 01:47) Nausea/Vomiting Home Medications: Metoprolol Tartrate 100 mg PO BID #60 tab 02/02/24 clindamycin HCL [Clindamycin HCl] 300 mg PO TID #20 cap 02/02/24 lisinopriL [Prinivil*] 20 mg PO BID #60 tab 02/02/24 Colchicine [Colcrys *] 0.6 mg PO BID PRN 02/05/24 - Past Medical/Surgical History Diabetic: No -: Hypertension with CKD -: Systolic CHF, EF 35%now improved to 55% -: Noncompliance with medication -: HLD -: right leg surgery Psychosocial/ Personal History: Patient is . 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 - Social History Smoking Status: Current some day smoker (Marijuana) Alcohol use: Yes CD- Drugs: No Caffeine use: Yes Physical Examination - Physical Exam General: Alert, Oriented x3, Other (uncomfortable) HEENT: Atraumatic, Normocephalic, PERRLA Neck: Supple, 2+ carotid pulse no bruit Respiratory: Clear to auscultation bilaterally, Normal air movement Cardiovascular: No edema, Normal pulses, Regular rate/rhythm, Normal S1 S2 Capillary refill: <2 Seconds Gastrointestinal: Normal bowel sounds, Soft and benign Musculoskeletal: No clubbing Integumentary: No rashes Neurological: Normal speech, Normal tone - Studies Laboratory Data (last 24 hrs) 02/05/24 02/05/24 02/05/24 12:13 12:13 12:13 WBC 14.90 H Hgb 14.8 Hct 44.2 Plt Count 422 H PT 11.0 INR 0.98 APTT 29.6 Sodium 133 L Potassium 3.7 BUN 24 H Creatinine 1.60 H Glucose 113 H Magnesium 1.8 Assessment and Plan - Plan Assessment and Plan Hypertensive Urgency Elevated troponin Systolic CHF, EF 35% improved to 60-65% (11/12/23) -Troponin 84.3, trending down from last admission -Medication noncompliance - no hydralazine, causes a headache -amlodipine, lisinopril -continuous telemetry -Cardiology consulted Leukocytosis -WBC 14.9 -Monitor in a.m. CKD Hypervolemic Hyponatremia -BUN/creatinine 24/1.6, GFR 56, sodium 133, BNP 7607 -Bumex given in the ED -Monitor levels in the a.m. HLD -Continue home medication Medication noncompliance -Education provided DVT PPx heparin Full code Discharge Plan: Home Plan to discharge in: 48 Hours - Advance Directives Does patient have a Living Will: No Does patient have a Durable POA for Healthcare: No
[2024-02-05] MEDS: AMLODIPINE 10 MG TAB PO ONE (14:00)
[2024-02-05] MEDS ORDERED: BUMETANIDE 1 MG/4 ML VIAL IV SCH (14:00)
[2024-02-05] MEDS ORDERED: AMLODIPINE 10 MG TAB ONE (14:22)
[2024-02-05] MEDS ORDERED: ONDANSETRON 4 MG/2 ML VIAL ONE (14:22)
[2024-02-05] MEDS: ONDANSETRON 4 MG/2 ML VIAL IV PRN (14:29)
[2024-02-05 15:36] LABS: Thyroid Stimulating Hormone 1.5 uIU/mL (0.358-3.740)
[2024-02-05 15:55] VITALS: BMI 31.1
[2024-02-05] MEDS: lisinopriL 10 MG TAB PO SCH (16:02)
[2024-02-05] MEDS: HEPARIN 5000 UNIT/ML 1 ML VIAL SQ SCH (16:03)
[2024-02-06 05:23] LABS: Absolute Eosinophils 0.4 K/uL (0-0.5); Absolute Lymphocytes (CBC) 2.2 K/uL (0.7-4.9); Absolute Monocytes 1.1 K/uL (0.1-1.3); Absolute Neutrophil 5.4 K/uL (1.8-8.0); Basophils % 0.2 % (0-1.3); Eosinophils % 4.7 % (0-4.4); Hematocrit 40.3 % (39.6-49.0); Hemoglobin 13.7 g/dL (13.6-17.9); Lymphocytes % 23.9 % (15.3-44.8); MCV 85.3 fL (80-100); MPV 7.6 fL (7.6-11.3); Neutrophils % 59.2 % (41.7-73.7); Platelets 432 thou/uL (152-406); RBC Red Blood Cell Count 4.72 M/uL (4.33-5.43); Red Cell Distribution Width 13.8 % (12.1-15.2)
[2024-02-06 05:49] LABS: Anion Gap 6.5 mEq/L (5.0-15.0); Magnesium 2.1 mg/dL (1.6-2.4); Phosphorus 3.4 mg/dL (2.5-4.9); Potassium 3.5 mEq/L (3.5-5.1)
--- NOTE | 2024-02-06 09:01 | RAD REPORT ---
EXAM: CT brain without contrast HISTORY: Dizziness COMPARISON: January 2024 TECHNIQUE: Multiple contiguous axial images were obtained and a CT of the brain without contrast. Sagittal and coronal reformats were performed. Automated exposure control, adjustment of the mA and/or kV according to patient size, and/or itera tive reconstruction. Unless otherwise specified, incidental findings do not require dedicated imaging follow-u FINDINGS: An intracranial bleed is not seen Ventricles are normal caliber No extra-axial fluid collection noted No significant hypodensity within the brain No fluid within the visualized sinuses or mastoids noted. IMPRESSION: No acute intracranial abnormality noted. If the patient's symptoms persist MRI of the brain would be recommended. from the emergency room was contacted at 12:10 PM on February 05, 2024
[2024-02-06] MEDS: METOPROLOL TAR 50 MG TAB PO SCH (09:24)
[2024-02-06] MEDS: AMLODIPINE 10 MG TAB PO SCH (09:26)
[2024-02-06] MEDS: POTASSIUM CL SA 10 MEQ TAB PO ONE (09:26)
[2024-02-06] MEDS: BENZONATATE 100 MG CAP PO PRN (11:42)
--- NOTE | 2024-02-06 12:30 | P.CNS ---
Date of Consult: 02/06/24 Chief Complaint: HTN emergency History of Present Illness: Patient with PMH of HTN, presented with generalized malaise, cough, denies chest pain, no palpitations, no syncope, no SOB. Allergies nitroglycerin Adverse Reaction (Mild, Verified 05/05/23 01:47) Nausea/Vomiting Home medications list reviewed: Yes Home Medications: Metoprolol Tartrate 100 mg PO BID #60 tab 02/02/24 clindamycin HCL [Clindamycin HCl] 300 mg PO TID #20 cap 02/02/24 lisinopriL [Prinivil*] 20 mg PO BID #60 tab 02/02/24 Colchicine [Colcrys *] 0.6 mg PO BID PRN 02/05/24 - Past Medical/Surgical History Diabetic: No -: Hypertension with CKD -: Systolic CHF, EF 35%now improved to 55% -: Noncompliance with medication -: HLD -: right leg surgery Psychosocial/ Personal History: Patient is . 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 moist/pink, EOMI, Sclerae nonicteric Neck: Supple, 2+ carotid pulse no bruit, No LAD, Without JVD or thyroid abnormality Respiratory: Clear to auscultation bilaterally, Normal air movement Cardiovascular: Regular rate/rhythm, Normal S1 S2 Gastrointestinal: Normal bowel sounds, No tenderness Musculoskeletal: No tenderness Integumentary: No rashes Neurological: Normal gait, Normal speech, Normal tone, Normal affect Lymphatics: No axilla or inguinal lymphadenopathy Laboratory Data (last 24 hrs) 02/05/24 02/05/24 12:13 12:13 PT 11.0 INR 0.98 APTT 29.6 Sodium 133 L Potassium 3.7 BUN 24 H Creatinine 1.60 H Glucose 113 H Magnesium 1.8 - Problems (1) Essential hypertension Current Visit: No Status: Acute Plan: continue metoprolol 100 mg po BID Patient is having cough which can be secondary to lisinopril D/C lisinopril start Losartan 50 mg daily (2) NSTEMI (non-ST elevated myocardial infarction) Current Visit: No Status: Acute Plan: mild leak in troponin, most likely secondary to DONATO, hypertensive emergency Patient had an echo that shows normal LV systolic and diastolic function. continue to monitor. (3) HLD (hyperlipidemia) Current Visit: Yes Status: Acute Plan: start patient on Crestor 40 mg daily repeat lipid panel in 8-12 weeks as outpatient.
--- NOTE | 2024-02-06 13:00 | P.PN ---
Date of Service: 02/06/24 Subjective Awake and reports feeling very well Feeling well enough to go home Blood pressure regulating slightly ROS 10 point ROS as noted above, otherwise negative Physical Exam General: Alert and oriented x3, NAD, comfortable HEENT: Atraumatic, Normocephalic, PERRLA Neck: Supple, 2+ carotid pulse no bruit Respiratory: Clear to auscultation bilaterally, Normal air movement Cardiovascular: No edema, Normal pulses, normal sinus rhythm, Normal S1 S2 Capillary refill: <2 Seconds Gastrointestinal: Normal bowel sounds, Soft and benign on palpation, Musculoskeletal: No clubbing Integumentary: No rashes Neurological: Normal speech, Normal tone Vitals Reviewed Problem list Hypertensive Urgency Elevated troponin Systolic CHF, EF 35% improved to 60-65% (11/12/23) Leukocytosis CKD Hypervolemic Hyponatremia HLD Medication noncompliance Assessment and Plan Hypertensive Urgency Elevated troponin Systolic CHF, EF 35% improved to 60-65% (11/12/23) -Troponin 84.3/72.6/73.3 trending down from last admission -Medication noncompliance - no hydralazine, causes a headache -amlodipine, losartan, and metolprolol -Stopped lisinopril, coughing -continuous telemetry -Cardiology consulted Leukocytosis 2/2 inflammation -Sirs criteria not met, WBC 14.9, HR, RR, Temp WNL -WBC 9.1 -Monitor in a.m. CKD Hypervolemic Hyponatremia -initial BUN/creatinine 24/1.6, GFR 56, sodium 133, BNP 7607 -Bumex given in the ED -Monitor levels in the a.m. HLD -Continue home medication Medication noncompliance -Education provided DVT PPx heparin Full code Discharge Plan: Home Plan to discharge in: 48 Hours
[2024-02-06] MEDS: GUAIFENESIN 600 MG SA TAB PO SCH (15:37)
[2024-02-06] MEDS: ROSUVASTATIN 10 MG TAB PO SCH (20:35)
[2024-02-06] MEDS: ATORVASTATIN 40 MG TAB PO SCH (20:36)
[2024-02-06 21:56] VITALS: O2SAT 97
[2024-02-07] MEDS: HYDRALAZINE HCL 20 MG/ML VIAL IV PRN (00:27)
[2024-02-07] MEDS: LABETALOL 20 MG/4ML SYRINGE IV PRN (00:48)
[2024-02-07] MEDS: METOPROLOL XL 100 MG TAB PO SCH (05:00)
[2024-02-07 05:53] LABS: Anion Gap 7.6 mEq/L (5.0-15.0); Potassium 3.6 mEq/L (3.5-5.1)
[2024-02-07] MEDS: POTASSIUM CL SA 10 MEQ TAB PO ONE (07:53)
[2024-02-07] MEDS: LOSARTAN POTASSIUM 50 MG TABLET PO SCH (07:54)
[2024-02-07] MEDS: HYDRALAZINE HCL 25 MG TABLET PO SCH (12:41)
[2024-02-07 12:44] VITALS: BP 118/104; TEMP 97.9
--- NOTE | 2024-02-07 14:49 | P.DS ---
Admission Date: 02/05/24 Discharge Date: 02/07/24 Disposition: ROUTINE DISCHARGE Discharge Condition: FAIR Reason for Admission: HTN emergency Brief History of Present Illness: Diagnosis Hypertensive Urgency Elevated troponin Systolic CHF, EF 35% improved to 60-65% (11/12/23) Leukocytosis CKD Hypervolemic Hyponatremia HLD Medication noncompliance HPI 02/05/24 Ezequiel Padron is a 38 year old male with Pmhx HTN, CHF, CKD, and medication noncompliance who presents to the ED with chief complaint high blood pressure, dizziness, sense of spinning. He was recently discharged on February 01 because he needed to report to his job. Now that his job is aware of his need to be hospitalized he has returned to the ED. His initial BP 198/135 which has responded to hydralazine dropping SBP 173. On examiniation, he continues to have a headache with dizziness. CT head, CTA head/neck are negative for acute findings. Troponin elevated but trending down from 5 days ago. Ezequiel will be admitted to hospitalist service for further treatment of hypertensive urgency. Hospital Course: Ezequiel is a pleasant 38-year-old male with a past medical history significant for HTN, CHF, CKD, and medication noncompliance who was admitted to [facility] on 02/05/24 for hypertensive emergency. Ezequiel presented to the ED with severe HTN. He was recently discharged after being treated for high blood pressure but has returned since he had his work situated and could continue treatment. He presented with hypertensive emergency and has a history of medication noncompliance which he has decided to be careful to take his medications and monitor his blood pressure daily. CT head negative for acute findings. He has tolerated PO medications and feels better as his blood pressure has safely decreased. His kidney function has been affected by his hypertension, plan to follow up with Nephrology outpatient for continued management. Troponin elevated but decreased from last admission, Cardiology reports likely cause is the hypertensive emergency and DONATO. He is hemodynamically stable, ambulating independently, urinating without difficulty, tolerating p.o. diet, denies shortness of breath and chest pain. On 02/07/2024, Ezequiel was seen on morning rounds and deemed medically stable for discharge. Ezequiel was discharged with instructions to schedule follow-up appointments with Dr. Danielson and PCP. Ezequiel was provided prescriptions for hydralazine, Norvasc, metoprolol, Lipitor. Physical Exam General: Alert and oriented x3, Other (uncomfortable) HEENT: Atraumatic, Normocephalic, PERRLA Neck: Supple, 2+ carotid pulse no bruit Respiratory: Clear to auscultation bilaterally, Normal air movement, symmetrical chest wall movement Cardiovascular: Normal pulses, NSR, Normal S1 S2,No edema Capillary refill: <2 Seconds Gastrointestinal: Normal bowel sounds, Soft and benign on palpation Musculoskeletal: No clubbing Integumentary: No rashes Neurological: Normal speech, Normal tone Vital Signs/Physical Exam: Temp Pulse Resp BP Pulse Ox 97.9 F 77 16 118/104 H 98 02/07/24 12:00 02/07/24 12:00 02/07/24 12:00 02/07/24 12:00 02/07/24 12:00 Laboratory Data at Discharge: WBC 9.10 thou/uL (4.3-10.9) 02/06/24 05:06 Hgb 13.7 g/dL (13.6-17.9) 02/06/24 05:06 Hct 40.3 % (39.6-49.0) 02/06/24 05:06 Plt Count 432 thou/uL (152-406) H 02/06/24 05:06 PT 11.0 SECONDS (9.4-12.5) 02/05/24 12:13 INR 0.98 02/05/24 12:13 APTT 29.6 SECONDS (24.3-36.9) 02/05/24 12:13 Sodium 139 mEq/L (136-145) 02/07/24 04:59 Potassium 3.6 mEq/L (3.5-5.1) 02/07/24 04:59 BUN 26 mg/dL (7-18) H 02/07/24 04:59 Creatinine 1.51 mg/dL (0.70-1.30) H 02/07/24 04:59 Glucose 104 mg/dL (74-106) 02/07/24 04:59 Phosphorus 3.4 mg/dL (2.5-4.9) 02/06/24 05:06 Magnesium 2.1 mg/dL (1.6-2.4) 02/06/24 05:06 Triglycerides 178 mg/dL (<150) H 02/06/24 05:06 Cholesterol 235 mg/dL (<200) H 02/06/24 05:06 HDL Cholesterol 34 mg/dL (40-60) L 02/06/24 05:06 Cholesterol/HDL Ratio 6.91 02/06/24 05:06 Home Medications: clindamycin HCL [Clindamycin HCl] 300 mg PO TID #20 cap 02/02/24 lisinopriL [Prinivil*] 20 mg PO BID #60 tab 02/02/24 Colchicine [Colcrys *] 0.6 mg PO BID PRN 02/05/24 Amlodipine [Norvasc*] 10 mg PO DAILY #30 tab 02/07/24 Atorvastatin Calcium [Lipitor] 40 mg PO BEDTIME #30 tab 02/07/24 Hydralazine [Apresoline*] 25 mg PO TID #90 tab 02/07/24 Metoprolol Succinate [Toprol Xl*] 100 mg PO [id number] #30 tab 02/07/24 New Medications: Hydralazine [Apresoline*] 25 mg PO TID #90 tab Atorvastatin Calcium [Lipitor] 40 mg PO BEDTIME #30 tab Amlodipine [Norvasc*] 10 mg PO DAILY #30 tab Metoprolol Succinate [Toprol Xl*] 100 mg PO [id number] #30 tab Diet: AHA Activity: Ad noble Followup: Rafa Danielson MD [ACTIVE - CAN ADMIT] - (call for an apointment for Saturday. Tell them you were just discharged from hospital.) NONE,NONE [Primary Care Provider] - 1 Week
--- NOTE | 2024-02-07 16:41 | EKG ---
Test Date: 2024-02-05 Test Time: 12:28:45 Video Editing Intern: EVARISTO MEASUREMENT RESULTS: Intervals: Rate: 75 MD: 166 QRSD: 110 QT: 404 QTc: 451 [place]: P: 59 MD: 166 QRS: -9 T: 185 INTERPRETIVE STATEMENTS: Normal sinus rhythm Possible Left atrial enlargement Left ventricular hypertrophy with repolarization abnormality Abnormal ECG Compared to ECG 02/01/2024 10:53:28 Sinus tachycardia no longer present Electronically Signed On 02-07-24 16:34:27 CDT by Hubert Parson
== END 2024-02-07 12:50 | disposition home or self-care (01) | DRG 280 ==
LOC: ER 11:48 → ERHOLD 13:37 → 2ND 14:42
PROVIDERS: ADMIT Internal Medicine; ATTEND Internal Medicine
DX: I16.0 Hypertensive urgency (principal); I50.23 Acute on chronic systolic (congestive) heart failure; I21.4 Non-ST elevation (NSTEMI) myocardial infarction; N17.9 Acute kidney failure, unspecified; E87.1 Hypo-osmolality and hyponatremia; I13.0 Hypertensive heart and chronic kidney disease with heart failure and stage 1 through stage 4 chronic kidney disease, or unspecified chronic kidney disease; N18.9 Chronic kidney disease, unspecified; E78.5 Hyperlipidemia, unspecified; E87.70 Fluid overload, unspecified; Z91.148 Patient's other noncompliance with medication regimen for other reason
CPT/HCPCS: 36415; 70450; 70496; 70498; 71045; 80048; 80061; 82565; 82947; 83735; 83880; 84100; 84439; 84443; 84484; 85025; 85610; 85730; 93005; 96374; 99285; J0360; J1644; J2405; Q9967

== ENCOUNTER 2024-03-09 19:06 | Emergency (ER) | payer OTHER ==
--- NOTE | 2024-03-09 20:20 | ER ---
Nurse's Notes [facility] Name: Ezequiel Padron Age: 38 yrs Sex: Male : 1985 Arrival Date: 03/09/2024 Time: 19:06 Bed Waiting Private MD: Diagnosis: ED Course: 03/09 19:11 Patient arrived in ED. mr 20:04 Amauri Crowley MD is Attending Physician. sp4 20:11 Patient's name was called from ER lobby. No response. cm10 20:18 Patient's name was called from ER lobby. Unable to locate patient. Will disposition as cm10 left without being seen by a provider. Administered Medications: No medications were administered Outcome: 20:20 Patient left the ED. vc1 Signatures: Niurka Abdul Reg Reg mr Calcote, Vanessa, RN RN vc1 Amauri Crowley MD MD sp4 Shital aVle RN RN cm10
--- NOTE | 2024-03-09 20:20 | EDPHYS ---
Physician Documentation [facility] Name: Ezequiel Padron Age: 38 yrs Sex: Male : 1985 Arrival Date: 03/09/2024 Time: 19:06 Bed Waiting Private MD: ED Physician Administered Medications: No medications were administered Disposition Summary: 03/09/24 20:20 Eloped Notes: Disposition: Before Triage vc1 Reason: unknown vc1 Signatures: Lisa Molina RN RN vc1 Amauri Crowley MD MD sp4 Corrections: (The following items were deleted from the chart) 03/09 20:19 20:04 This 38 yrs old Black Male presents to ER via Unassigned with complaints of Gout, sp4 Foot Pain. sp4
== END 2024-03-09 20:20 | disposition left against medical advice (07) ==
LOC: ER 19:06
DX: Z02.9 Encounter for administrative examinations, unspecified (principal)

== ENCOUNTER 2024-03-11 20:17 | Emergency (ER) | payer OTHER ==
[2024-03-11 21:17] LABS: SARS-CoV-2 Antigen CONTROL BLUE LINE VIS/BG OK; SARS-CoV-2 Antigen Rapid Res Negative (Negative)
--- NOTE | 2024-03-11 21:55 | RAD REPORT ---
EXAMINATION: ONE VIEW CHEST XR CLINICAL INDICATION: Male, 39 years old.,COUGH TECHNIQUE: Frontal chest projection is submitted. Examination is limited by patient positioning and t echnique. COMPARISON: 02/05/2024 FINDINGS: The lungs are well inflated. Progressive central interstitial prominence and hazy airspace opacities. No pneumothorax or sizable effusion. The heart is normal in size. Mediastinal contours are unremarkable. IMPRESSION: Progressive central opacities as above, concerning for pulmonary edema.
[2024-03-11] MEDS ORDERED: cloNIDine HCL 0.1 MG TAB ONE (22:37)
--- NOTE | 2024-03-11 23:22 | EDPHYS ---
Physician Documentation [facility] Name: Ezequiel Padron Age: 39 yrs Sex: Male : 1985 Arrival Date: 03/11/2024 Time: 20:17 Bed 6 Private MD: ED Physician Amauri Crowley HPI: 03/11 23:58 This 39 yrs old Black Male presents to ER via Ambulatory with complaints of Shortness kb Of Breath, Doesn't Feel Right. 23:58 Pt is a 39 year old male who presents for cough, shortness of breath, fatigue, malaise kb and fever that started this morning. States he completed work and went home to go to sleep but he wasn't feeling well so he decided to come get checked out. . Historical: - Allergies: 20:29 Nitroglycerin; cm10 - PMHx: 20:29 Congestive heart failure; Hypertensive disorder; cm10 - Immunization history:: Adult Immunizations up to date. - Infectious Disease History:: Denies. - Social history:: Smoking status: Patient reports the use of cigarette tobacco products, smokes one-half pack cigarettes per day, Reported history of juuling and/or vaping. ROS: 23:58 Constitutional: As per HPI kb Exam: 23:58 Constitutional: This is a well developed, well nourished patient who is awake, alert, kb and in no acute distress. Head/Face: Normocephalic, atraumatic. ENT: Moist Mucous membranes Cardiovascular: Regular rate Respiratory: Respirations even and unlabored. No increased work of breathing. Talking in full sentences Abdomen/GI: Soft, non-tender. No distention Skin: Warm, dry with normal turgor. Normal color. MS/ Extremity: Pulses equal, no cyanosis. Neurovascular intact. Full, normal range of motion. Neuro: Awake and alert, GCS 15, oriented to person, place, time, and situation. Vital Signs: 20:28 BP 194 / 126; Pulse 93; Resp 18; Temp 98.2(O); Pulse Ox 94% on R/A; Weight 104.33 kg; cm10 Height 6 ft. 0 in. ; Pain 8/10; 20:30 BP 194 / 117; cm10 21:30 BP 194 / 137; Pulse 94; Resp 18; Pulse Ox 96% ; cp4 22:30 BP 191 / 121; Pulse 98; Resp 18; Pulse Ox 96% ; cp4 23:25 BP 201 / 143; Pulse 94; Resp 18; Pulse Ox 98% ; cp4 20:28 Body Mass Index 31.19 (104.33 kg, 182.88 cm) cm10 20:28 Pain Scale: Adult cm10 MDM: 20:29 Medical Screening Exam initiated kb 23:59 Differential diagnosis: pulmonary edema, flu, covid, uri. Data reviewed: vital signs, kb nurses notes. Consideration of Admission/Observation Escalation of care including admission/observation considered. admission considered for pulmonary edema and hypertension, but pt states he is ready to leave. States his blood pressure is always high and he hasn't taken his blood pressure meds for tonight so he will when he gets home. States he would like to be discharged now.. Test considered but Not performed: Labs: cbc, cmp, bnp, trop and ekg considered but pt states he is feeling better and ready to go home. States he took his fluid pill prior to arrival and has urinated several times so he thinks that was the problem. States he doesn't take his fluid pill like he is supposed to because it interferes with work. . Counseling: I had a detailed discussion with the patient and/or guardian regarding the historical points, exam findings, and any diagnostic results supporting the discharge/admit diagnosis, lab results, radiology results, the need for outpatient follow up, a family practitioner, to return to the emergency department if symptoms worsen or persist or if there are any questions or concerns that arise at home. 03/11 20:33 Order name: Flu; Complete Time: 21:28 kb 03/11 20:33 Order name: SARS-COV-2 Antigen Rapid; Complete Time: 21:18 kb 03/11 20:33 Order name: Chest Single View XRAY; Complete Time: 21:57 kb Administered Medications: 22:39 Drug: cloNIDine PO 0.1 mg PO once Route: PO; cp4 Disposition: 03/12 04:42 Co-signature as Attending Physician, Amauri Crowley MD I agree with the assessment sp4 and plan of care. I reviewed the patient's care provided by the Advanced Practice Provider and agree with the diagnosis and treatment plan. Disposition Summary: 03/11/24 23:21 Discharge Ordered Notes: Location: Home kb Condition: Stable kb Diagnosis - Essential (primary) hypertension kb - Dyspnea kb Followup: kb - With: Emergency Department - When: As needed - Reason: Worsening of condition Followup: kb - With: Private Physician - When: 2 - 3 days - Reason: Recheck today's complaints, Continuance of care, Re-evaluation by your physician Discharge Instructions: - Discharge Summary Sheet kb - Shortness of Breath, Adult, [id number] kb - Hypertension, Adult, [id number] kb - Managing Your Hypertension kb Forms: - Medication Reconciliation Form kb - Antibiotic Education kb - Prescription Opioid Use kb - Patient Portal Instructions kb - Leadership Thank You Letter kb Signatures: Dispatcher [employer] EDMS Kristel Carballo, PAINTER ORDNANCE-C PAINTER ORDNANCE-Amauri Rowan MD MD sp4 Shital Vale RN RN cm10 Gloria Bob cp4 Corrections: (The following items were deleted from the chart) 03/11 21:58 21:58 BASIC METABOLIC PANEL+C.LAB.BRZ ordered. EDMS EDMS 21:58 21:58 CBC+H.LAB.BRZ ordered. EDMS EDMS 21:58 21:58 PROBNP+C.LAB.BRZ ordered. EDMS EDMS 21:58 21:58 Troponin High Sensitivity+C.LAB.BRZ ordered. EDKY EDMS 22:41 21:58 Cardiac monitoring ordered. kb cp4 22:41 21:58 EKG - Nurse/Tech ordered. kb cp4 22:41 21:58 IV Saline Lock ordered. kb cp4 22:41 21:58 Labs collected and sent ordered. kb cp4 22:41 21:58 Oxygen Per Protocol ordered. kb cp4 22:41 21:58 O2 Sat Monitoring ordered. kb cp4
--- NOTE | 2024-03-11 23:22 | ER ---
Nurse's Notes [facility] Name: Ezequiel Padron Age: 39 yrs Sex: Male : 1985 Arrival Date: 03/11/2024 Time: 20:17 Bed 6 Private MD: Diagnosis: Essential (primary) hypertension;Dyspnea Presentation: 03/11 20:28 Chief complaint: Patient states: shortness of breath and "I just don't feel good" onset cm10 today. Pt also reports subjective fever. Coronavirus screen: Client denies travel out of the [place] in the last 14 days. Ebola Screen: Patient denies travel to an Ebola-affected area in the 21 days before illness onset. No symptoms or risks identified at this time. Initial Sepsis Screen: Does the patient meet any 2 criteria? HR > 90 bpm. Does the patient have a suspected source of infection? No. Patient's initial sepsis screen is negative. Risk Assessment: Do you want to hurt yourself or someone else? Patient reports no desire to harm self or others. Onset of symptoms was March 11, 2024. 20:28 Method Of Arrival: Ambulatory cm10 20:28 Acuity: HERMELINDA 3 cm10 Triage Assessment: 20:30 General: Appears in no apparent distress. uncomfortable, Behavior is calm, cooperative. cm10 Neuro: No deficits noted. Level of Consciousness is awake, alert, obeys commands, Oriented to person, place, time, situation, Appropriate for age. Respiratory: No deficits noted. Airway is patent Respiratory effort is even, unlabored, Respiratory pattern is regular, symmetrical. Historical: - Allergies: 20:29 Nitroglycerin; cm10 - PMHx: 20:29 Congestive heart failure; Hypertensive disorder; cm10 - Immunization history:: Adult Immunizations up to date. - Infectious Disease History:: Denies. - Social history:: Smoking status: Patient reports the use of cigarette tobacco products, smokes one-half pack cigarettes per day, Reported history of juuling and/or vaping. Screenin:10 [facility] ED Fall Risk Assessment (Adult) History of falling in the last 3 months, cp4 including since admission No falls in past 3 months (0 pts) Confusion or Disorientation No (0 pts) Intoxicated or Sedated No (0 pts) Impaired Gait No (0 pts) Mobility Assist Device Used No (0 pt) Altered Elimination No (0 pt) Score/Fall Risk Level 0 - 2 = Low Risk Oriented to surroundings, Maintained a safe environment, Assessed \\T\\ reinforced patient's understanding of fall precautions, Hourly rounding (assess needs \\T\\ fall precautionary measures) done. Abuse screen: Denies threats or abuse. Nutritional screening: No deficits noted. Tuberculosis screening: No symptoms or risk factors identified. Assessment: 21:10 General: Appears in no apparent distress. comfortable, Behavior is calm, cooperative, cp4 appropriate for age. Pain: Denies pain. Neuro: Level of Consciousness is awake, alert, obeys commands, Oriented to person, place, time, situation. Cardiovascular: Patient's skin is warm and dry. Rhythm is regular. Respiratory: Airway is patent Respiratory effort is even, unlabored, Breath sounds are clear bilaterally. GI: No signs and/or symptoms were reported involving the gastrointestinal system. : No signs and/or symptoms were reported regarding the genitourinary system. EENT: No signs and/or symptoms were reported regarding the EENT system. Derm: No signs and/or symptoms reported regarding the dermatologic system. Musculoskeletal: No signs and/or symptoms reported regarding the musculoskeletal system. 22:00 Reassessment: Patient appears in no apparent distress at this time. Patient and/or cp4 family updated on plan of care and expected duration. Pain level reassessed. Patient is alert, oriented x 3, equal unlabored respirations, skin warm/dry/pink. 23:00 Reassessment: Patient appears in no apparent distress at this time. Patient and/or cp4 family updated on plan of care and expected duration. Pain level reassessed. Patient is alert, oriented x 3, equal unlabored respirations, skin warm/dry/pink. 23:17 Reassessment: Patient ready to discharge regardless of his high blood pressure. States cp4 he will take his medicine when he gets home. Provider notified. Vital Signs: 20:28 BP 194 / 126; Pulse 93; Resp 18; Temp 98.2(O); Pulse Ox 94% on R/A; Weight 104.33 kg; cm10 Height 6 ft. 0 in. ; Pain 8/10; 20:30 BP 194 / 117; cm10 21:30 BP 194 / 137; Pulse 94; Resp 18; Pulse Ox 96% ; cp4 22:30 BP 191 / 121; Pulse 98; Resp 18; Pulse Ox 96% ; cp4 23:25 BP 201 / 143; Pulse 94; Resp 18; Pulse Ox 98% ; cp4 20:28 Body Mass Index 31.19 (104.33 kg, 182.88 cm) cm10 20:28 Pain Scale: Adult cm10 ED Course: 20:18 Patient arrived in ED. jj6 20:28 [facility]C [facility]. kb 20:28 Nataliia Steel MD is Attending Physician. kb 20:29 Triage completed. cm10 20:30 Arm band placed on right wrist. Patient placed in waiting room, on a stretcher. cm10 20:31 Gloria Bob is Primary Nurse. cp4 21:02 Amauri Crowley MD is Attending Physician. kb 21:10 Bed in low position. Call light in reach. Side rails up X 1. cp4 21:10 No provider procedures requiring assistance completed. cp4 21:18 Chest Single View XRAY In Process Unspecified. EDMS Administered Medications: 22:39 Drug: cloNIDine PO 0.1 mg PO once Route: PO; cp4 Medication: 21:10 VIS not applicable for this client. cp4 Outcome: 23:21 Discharge ordered by . kb 23:28 Patient left the ED. cp4 Signatures: Dispatcher [employer] EDMS Kristel Carballo FNP-C FNP-Ckb Jeffries, Jennifer jj6 Shital Vale, RN RN cm10 Gloria Bob cp4
[2024-03-11 23:49] VITALS: TEMP 98.2
[2024-03-11 23:54] VITALS: BP 201/143; O2SAT 98
== END 2024-03-11 23:28 | disposition home or self-care (01) ==
LOC: ER 20:17
DX: R06.00 Dyspnea, unspecified (principal); I10 Essential (primary) hypertension; F17.210 Nicotine dependence, cigarettes, uncomplicated; Z11.52 Encounter for screening for COVID-19
CPT/HCPCS: 36415; 71045; 87804; 87811

== ENCOUNTER 2024-03-16 18:10 | Emergency (ER) | payer OTHER ==
[2024-03-16] MEDS ORDERED: dexAMETHasone 10 MG/ML VIAL ONE (19:43)
[2024-03-16] MEDS ORDERED: ONDANSETRON 4 MG (ODT) TAB ONE (19:44)
[2024-03-16] MEDS ORDERED: COLCHICINE 0.6 MG TAB ONE (19:44)
[2024-03-16] MEDS ORDERED: HYDROCODONE/APAP 5/325 MG TAB ONE (19:44)
--- NOTE | 2024-03-16 19:59 | EDPHYS ---
Physician Documentation [facility] Name: Ezequiel Padron Age: 39 yrs Sex: Male : 1985 Arrival Date: 03/16/2024 Time: 18:10 Bed 27 Private MD: ED Physician Baldemar Harden HPI: 03/16 18:45 This 39 yrs old Black Male presents to ER via Ambulatory with complaints of Gout,foot. sb4 18:45 Patient reports pain in left foot and great toe since this morning. Reports a history sb4 of gout and symptoms are identical. States that he has out of his colchicine. Has been taking ibuprofen and hydrocodone without significant symptoms. States that he was wearing his work boots all day and now his pain is a 10 out of 10. Historical: - Allergies: 18:43 Nitroglycerin; ss - Home Meds: 18:43 metoprolol tartrate 100 mg Oral tablet [Active]; ss - PMHx: 18:43 Congestive heart failure; Hypertensive disorder; Gout; ss - PSHx: 18:43 R femur; ss - Infectious Disease History:: Denies. - Social history:: Smoking status: Patient reports the use of cigarette tobacco products, smokes one-half pack cigarettes per day. ROS: 18:45 Constitutional: Negative for fever, chills, and weight loss, sb4 18:45 MS/extremity: Positive for pain, swelling, tenderness, warmth, of the left foot, 18:45 All other systems are negative, Exam: 18:46 Head/Face: Normocephalic, atraumatic. Eyes: Extra-ocular motions intact. Periorbital sb4 areas with no swelling, redness, or edema. ENT: Mucous membranes moist. 18:46 Constitutional: The patient appears alert, awake, in obvious pain, uncomfortable, 18:46 Musculoskeletal/extremity: Pain with palpation to left great toe, left metatarsal, left medial ankle. 18:46 Skin: Appearance: Temperature: warm, Left foot, Vital Signs: 18:42 Pulse 98; Resp 16; Temp 98.6(TE); Pulse Ox 100% on R/A; Weight 104.33 kg; Height 6 ft. ss 0 in. ; Pain 10/10; 18:42 BP 223 / 141; ss 19:30 BP 199 / 104; Pulse 95; Resp 17; Pulse Ox 95% ; vc1 20:30 BP 188 / 98; Pulse 97; Resp 16; Pulse Ox 94% ; vc1 18:42 Body Mass Index 31.19 (104.33 kg, 182.88 cm) ss 18:42 Pain Scale: Adult ss MDM: 18:26 Medical Screening Exam initiated sb4 19:58 Data reviewed: vital signs, nurses notes, and as a result, I will discharge patient. sb4 Counseling: I had a detailed discussion with the patient and/or guardian regarding the historical points, exam findings, and any diagnostic results supporting the discharge/admit diagnosis, the need for outpatient follow up, for definitive care, to return to the emergency department if symptoms worsen or persist or if there are any questions or concerns that arise at home. Administered Medications: 19:57 Drug: Dexamethasone IM 10 mg IM once Route: IM; Site: left deltoid; vc1 20:30 Follow up: Response: No adverse reaction; Marked relief of symptoms; Pain is decreased vc1 19:57 Drug: HYDROcodone-acetaminophen PO 5 mg-325 mg 2 tabs PO once Route: PO; vc1 20:30 Follow up: Response: No adverse reaction; Marked relief of symptoms; Pain is decreased vc1 19:57 Drug: Ondansetron PO 4 mg PO once Route: PO; vc1 20:30 Follow up: Response: No adverse reaction; Marked relief of symptoms vc1 19:58 Drug: Colchicine-Probenecid PO 2 tabs PO once Route: PO; vc1 20:30 Follow up: Response: No adverse reaction; Marked relief of symptoms; Pain is decreased vc1 Disposition Summary: 03/16/24 19:58 Discharge Ordered Notes: Location: Home sb4 Problem: an acute exacerbation sb4 Symptoms: have improved sb4 Condition: Stable sb4 Diagnosis - Idiopathic gout, left ankle and foot sb4 Followup: sb4 - With: Private Physician - When: As needed - Reason: Recheck today's complaints, Re-evaluation by your physician Discharge Instructions: - Discharge Summary Sheet sb4 - Gout, [id number] sb4 Forms: - Patient Portal Instructions sb4 - Leadership Thank You Letter sb4 Prescriptions: - colchicine 0.6 mg Oral tablet - take 1 tablet ORAL route daily; 30 tablet; Refills: 0, Product Selection sb4 Permitted - Prednisone 20 mg Oral Tablet - take 2 tablets ORAL route once daily for 5 days; 10 tablet; Refills: 0, Product sb4 Selection Permitted Signatures: Anny Graff, SAMANTHA RN ss Lisa Molina RN RN vc1 Sweetie Chatterjee PA-C PA-C sb4
--- NOTE | 2024-03-16 19:59 | ER ---
Nurse's Notes [facility] Name: Ezequiel Padron Age: 39 yrs Sex: Male : 1985 Arrival Date: 03/16/2024 Time: 18:10 Bed 27 Private MD: Diagnosis: Idiopathic gout, left ankle and foot Presentation: 03/16 18:42 Chief complaint: Patient states: L foot/ankle pain since this morning. HX of gout. ss Coronavirus screen: Client denies travel out of the [place] in the last 14 days. Ebola Screen: Patient denies exposure to infectious person. Patient denies travel to an Ebola-affected area in the 21 days before illness onset. Initial Sepsis Screen: Does the patient meet any 2 criteria? No. Patient's initial sepsis screen is negative. Does the patient have a suspected source of infection? No. Patient's initial sepsis screen is negative. Risk Assessment: Do you want to hurt yourself or someone else? Patient reports no desire to harm self or others. Note Pt reports he did not take his BP medications this evening. Onset of symptoms was March 16, 2024. 18:42 Method Of Arrival: Ambulatory ss 18:42 Acuity: HERMELINDA 2 ss Triage Assessment: 19:30 General: Appears in no apparent distress. uncomfortable, obese, well groomed, well vc1 developed, Behavior is calm, cooperative, appropriate for age. Pain: Complains of pain in left foot Pain does not radiate. Pain currently is 10 out of 10 on a pain scale. Quality of pain is described as sharp. EENT: No deficits noted. No signs and/or symptoms were reported regarding the EENT system. Neuro: Level of Consciousness is awake, alert, obeys commands, Oriented to person, place, time, situation, Appropriate for age. Cardiovascular: Heart tones S1 S2 present Capillary refill < 3 seconds Patient's skin is warm and dry. Respiratory: Airway is patent Respiratory effort is even, unlabored, Respiratory pattern is regular, symmetrical, Breath sounds are clear bilaterally. GI: No deficits noted. No signs and/or symptoms were reported involving the gastrointestinal system. : No deficits noted. No signs and/or symptoms were reported regarding the genitourinary system. Derm: Skin is intact, is healthy with good turgor, Skin is dry, Skin is normal, Skin temperature is warm. Musculoskeletal: Circulation, motion, and sensation intact. Range of motion: intact in all extremities, Reports pain in left foot. Historical: - Allergies: 18:43 Nitroglycerin; ss - Home Meds: 18:43 metoprolol tartrate 100 mg Oral tablet [Active]; ss - PMHx: 18:43 Congestive heart failure; Hypertensive disorder; Gout; ss - PSHx: 18:43 R femur; ss - Infectious Disease History:: Denies. - Social history:: Smoking status: Patient reports the use of cigarette tobacco products, smokes one-half pack cigarettes per day. Screenin:30 [facility] ED Fall Risk Assessment (Adult) History of falling in the last 3 months, vc1 including since admission No falls in past 3 months (0 pts) Confusion or Disorientation No (0 pts) Intoxicated or Sedated No (0 pts) Impaired Gait Yes (1 pt) Mobility Assist Device Used Yes (1 pt) Altered Elimination No (0 pt) Score/Fall Risk Level 0 - 2 = Low Risk Oriented to surroundings, Maintained a safe environment, Educated pt \T\ family on fall prevention, incl call for assistance when getting out of bed. Abuse screen: Denies threats or abuse. Nutritional screening: No deficits noted. Tuberculosis screening: No symptoms or risk factors identified. Vital Signs: 18:42 Pulse 98; Resp 16; Temp 98.6(TE); Pulse Ox 100% on R/A; Weight 104.33 kg; Height 6 ft. ss 0 in. ; Pain 10/10; 18:42 BP 223 / 141; ss 19:30 BP 199 / 104; Pulse 95; Resp 17; Pulse Ox 95% ; vc1 20:30 BP 188 / 98; Pulse 97; Resp 16; Pulse Ox 94% ; vc1 18:42 Body Mass Index 31.19 (104.33 kg, 182.88 cm) ss 18:42 Pain Scale: Adult ED Course: 18:13 Patient arrived in ED. mr 18:13 Sweetie Chatterjee PA-C is PHCP. sb4 18:13 Baldemar Harden MD is Attending Physician. sb4 18:43 Triage completed. ss 18:43 Arm band placed on right wrist. ss 19:30 Patient has correct armband on for positive identification. Bed in low position. Call vc1 light in reach. Pulse ox on. NIBP on. 19:57 Lisa Molina, RN is Primary Nurse. vc1 20:40 Provided Education on: f/u with PCP. vc1 20:40 No provider procedures requiring assistance completed. Patient did not have IV access vc1 during this emergency room visit. Administered Medications: :57 Drug: Dexamethasone IM 10 mg IM once Route: IM; Site: left deltoid; vc1 20:30 Follow up: Response: No adverse reaction; Marked relief of symptoms; Pain is decreased vc1 19:57 Drug: HYDROcodone-acetaminophen PO 5 mg-325 mg 2 tabs PO once Route: PO; vc1 20:30 Follow up: Response: No adverse reaction; Marked relief of symptoms; Pain is decreased vc1 19:57 Drug: Ondansetron PO 4 mg PO once Route: PO; vc1 20:30 Follow up: Response: No adverse reaction; Marked relief of symptoms vc1 19:58 Drug: Colchicine-Probenecid PO 2 tabs PO once Route: PO; vc1 20:30 Follow up: Response: No adverse reaction; Marked relief of symptoms; Pain is decreased vc1 Medication: 20:40 VIS not applicable for this client. vc1 Outcome: 19:58 Discharge ordered by . sb4 20:40 Discharged to home via wheelchair, with significant other, vc1 20:40 Condition: good 20:40 Discharge instructions given to patient, Instructed on discharge instructions, follow up and referral plans. medication usage, Demonstrated understanding of instructions, follow-up care, medications, Prescriptions given X 2, 20:43 Patient left the ED. vk Signatures: Niurka Abdul, Anny Huggins RN RN Lisa Molina RN RN vc1 Sweetie Chatterjee, PARay PAFlor Monroe
[2024-03-16 20:48] VITALS: BP 223/141; TEMP 98.6; O2SAT 100
== END 2024-03-16 20:43 | disposition home or self-care (01) ==
LOC: ER 18:10
DX: M10.072 Idiopathic gout, left ankle and foot (principal); I11.0 Hypertensive heart disease with heart failure; I50.9 Heart failure, unspecified; F17.210 Nicotine dependence, cigarettes, uncomplicated; Z79.899 Other long term (current) drug therapy
CPT/HCPCS: Q0162; J1100

== ENCOUNTER 2024-03-29 01:06 | Emergency (ER) | payer OTHER ==
[2024-03-29 01:55] LABS: Absolute Basophils 0.1 K/uL (0-0.5); Absolute Eosinophils 0.2 K/uL (0-0.5); Absolute Monocytes 1.7 K/uL (0.1-1.3); Absolute Neutrophil 8.9 K/uL (1.8-8.0); Basophils % 0.8 % (0-1.3); Eosinophils % 1.7 % (0-4.4); Hematocrit 40.4 % (39.6-49.0); Hemoglobin 13.4 g/dL (13.6-17.9); Lymphocytes % 8.7 % (15.3-44.8); MCH 28.5 pg (27.0-35.0); MCHC 33.2 g/dL (32.0-36.0); MCV 85.7 fL (80-100); MPV 7.8 fL (7.6-11.3); Monocytes % 14.4 % (3.3-12.3); Neutrophils % 74.4 % (41.7-73.7); Nucleated Red Blood Cells % 0.1 % (0-0); Platelets 374 thou/uL (152-406); RBC Red Blood Cell Count 4.72 M/uL (4.33-5.43); Red Cell Distribution Width 14.3 % (12.1-15.2)
[2024-03-29] MEDS ORDERED: ACETAMINOPHEN 500 MG TAB ONE (01:57)
[2024-03-29] MEDS ORDERED: METOPROLOL TAR 50 MG TAB ONE (01:57)
[2024-03-29 02:15] LABS: ALT/SGPT 30 U/L (16-61); AST/SGOT 17 U/L (15-37); Albumin/Globulin Ratio 0.7 (1.1-1.8); Alkaline Phosphatase 80 U/L (45-117); Anion Gap 10.6 mEq/L (5.0-15.0); BUN Blood Urea Nitrogen 19 mg/dL (7-18); Bicarbonate 26 mEq/L (21-32); Bilirubin Total 0.3 mg/dL (0.2-1.0); Globulin 4.6 g/dL (2.3-3.5); Glomerular Filtration Rate 50 ml/min (=/>90); Glucose Level 111 mg/dL (74-106); Potassium 3.6 mEq/L (3.5-5.1); Protein, Total 7.6 g/dL (6.4-8.2); Sodium Level 134 mEq/L (136-145)
[2024-03-29 02:16] LABS: SARS-CoV-2 Antigen CONTROL BLUE LINE VIS/BG OK; SARS-CoV-2 Antigen Rapid Res Negative (Negative)
[2024-03-29 02:34] LABS: Bilirubin Direct < 0.2 mg/dL (0-0.2); Bilirubin Indirect, Calculated 0.1 mg/dL (0.2-0.8)
[2024-03-29 02:38] LABS: Troponin High Sensitivity 102.8 pg/mL (<58.9)
--- NOTE | 2024-03-29 03:23 | ER ---
Nurse's Notes [facility] Name: Ezequiel Padron Age: 39 yrs Sex: Male : 1985 Arrival Date: 03/29/2024 Time: 01:06 Bed 13 Private MD: Diagnosis: Fever, unspecified;Essential (primary) hypertension;Elevated troponin Presentation: 03/29 01:25 Chief complaint: Patient states: "I FEEL LIKE SHIT LAST COUPLE OF DAYS, BODY ACHING, vc1 COUGH, WEAK, FEVER EARLIER". Coronavirus screen: Client denies travel out of the [place] in the last 14 days. congestion, cough unrelated to allergies, fatigue, fever, muscle pain, Client presents with at least one sign or symptom that may indicate coronavirus-19. Ebola Screen: Patient negative for fever greater than or equal to 101.5 degrees Fahrenheit, and additional compatible Ebola Virus Disease symptoms Patient denies exposure to infectious person. Patient denies travel to an Ebola-affected area in the 21 days before illness onset. No symptoms or risks identified at this time. Initial Sepsis Screen: Does the patient meet any 2 criteria? No. Patient's initial sepsis screen is negative. Does the patient have a suspected source of infection? No. Patient's initial sepsis screen is negative. Risk Assessment: Do you want to hurt yourself or someone else? Patient reports no desire to harm self or others. Onset of symptoms was March 27, 2024. 01:25 Method Of Arrival: Ambulatory vc1 01:25 Acuity: HERMELINDA 3 vc1 Triage Assessment: 01:32 General: Appears in no apparent distress. uncomfortable, ill, well developed, well vc1 nourished, Behavior is calm, cooperative, appropriate for age. Pain: Complains of pain in "GENERALIZED BODY ACHES". EENT: Reports nasal congestion. Neuro: Level of Consciousness is awake, alert, obeys commands, Oriented to person, place, time, situation, Appropriate for age. Cardiovascular: Capillary refill < 3 seconds Patient's skin is warm and dry. Rhythm is sinus tachycardia. Respiratory: Reports cough that is Airway is patent Respiratory effort is even, unlabored, Respiratory pattern is regular, symmetrical. GI: No deficits noted. No signs and/or symptoms were reported involving the gastrointestinal system. : No deficits noted. No signs and/or symptoms were reported regarding the genitourinary system. Derm: Skin is intact, is healthy with good turgor, Skin is dry, Skin is normal, Skin temperature is warm. Musculoskeletal: Circulation, motion, and sensation intact. Range of motion: intact in all extremities. Historical: - Allergies: :28 Nitroglycerin; vc1 - Home Meds: : metoprolol tartrate 100 mg Oral tablet 2 times per day [Active]; vc1 - PMHx: :28 Congestive heart failure; Gout; Hypertensive disorder; vc1 - PSHx: :28 R femur; vc1 - Immunization history:: Client reports receiving the 2nd dose of the Covid vaccine, Flu vaccine is not up to date. - Infectious Disease History:: Denies. - Social history:: Smoking status: Patient reports the use of cigarette tobacco products, denies chronic smoking, but will smoke occasionally. - Family history:: not pertinent. Screenin:29 [facility] ED Fall Risk Assessment (Adult) History of falling in the last 3 months, vc1 including since admission No falls in past 3 months (0 pts) Confusion or Disorientation No (0 pts) Intoxicated or Sedated No (0 pts) Impaired Gait No (0 pts) Mobility Assist Device Used No (0 pt) Altered Elimination No (0 pt) Score/Fall Risk Level 0 - 2 = Low Risk Oriented to surroundings, Maintained a safe environment, Educated pt \\T\\ family on fall prevention, incl call for assistance when getting out of bed. Abuse screen: Denies threats or abuse. Nutritional screening: No deficits noted. Tuberculosis screening: No symptoms or risk factors identified. Assessment: 01:53 Reassessment: SEE TRIAGE ASSESSMENT FOR FULL ASSESSMENT. dd2 Vital Signs: 01:25 BP 216 / 150; Pulse 105; Resp 20; Temp 98.5; Pulse Ox 98% ; Weight 104.33 kg; Height 6 vc1 ft. 0 in. ; 02:10 BP 198 / 112; Pulse 81; Resp 17; Pulse Ox 100% ; dd2 03:43 BP 196 / 115; Pulse 82; Resp 16; Pulse Ox 100% ; dd2 01:25 Body Mass Index 31.19 (104.33 kg, 182.88 cm) vc1 Artemas Coma Score: 01:51 Eye Response: spontaneous(4). Motor Response: obeys commands(6). Verbal Response: dd2 oriented(5). Total: 15. ED Course: 01:15 Patient arrived in ED. gm2 01:15 Donn Murphy MD is Attending Physician. rt 01:28 Triage completed. vc1 01:29 Arm band placed on right wrist. vc1 01:29 Patient has correct armband on for positive identification. Bed in low position. Call vc1 light in reach. Pulse ox on. NIBP on. 01:30 RACHAEL HAMPTON, RN is Primary Nurse. dd2 01:51 Door closed. Noise minimized. Warm blanket given. Pillow given. Verbal reassurance dd2 given. 01:51 SARS RAPID Sent. dd2 01:51 Influenza Screen (a \\T\\ B) Sent. dd2 01:51 Basic Metabolic Panel Sent. dd2 :51 CBC with Diff Sent. dd2 :51 LFT's Sent. dd2 01:51 Troponin HS Sent. dd2 01:51 No provider procedures requiring assistance completed. Initial lab(s) drawn, by me, dd2 sent to lab. EKG done, by ED staff, reviewed by Donn Murphy MD COVID swab sent to lab. Flu and/or RSV swab sent to lab. Inserted saline lock: 18 gauge in right antecubital area, using aseptic technique. Blood collected. Flushed with 10 mL NS. Patient maintains SpO2 saturation greater than 95% on room air. 03:44 Provided Education on: D/C INSTRRUCTIONS. dd2 03:44 IV discontinued, intact, bleeding controlled, No redness/swelling at site. Pressure dd2 dressing applied. Administered Medications: 02:10 Drug: Metoprolol PO 100 mg PO once Route: PO; dd2 02:40 Follow up: Response: No adverse reaction dd2 02:10 Drug: Acetaminophen PO 1000 mg PO once Route: PO; dd2 02:40 Follow up: Response: No adverse reaction dd2 03:40 Drug: HydrALAZINE PO 50 mg PO once Route: PO; dd2 03:46 Follow up: Response: Medication administered at discharge. dd2 Medication: 01:31 VIS not applicable for this client. vc1 Outcome: 03:22 Discharge ordered by . rt 03:44 Discharged to home ambulatory, dd2 03:44 Condition: stable 03:44 Discharge instructions given to patient, Instructed on discharge instructions, follow up and referral plans. Demonstrated understanding of instructions, follow-up care, 03:45 Patient left the ED. dd2 Signatures: Lisa Molina RN RN vc1 Donn Murphy MD MD rt Jazzy Villarreal gm2 RACHAEL HAMPTON RN RN dd2
--- NOTE | 2024-03-29 03:23 | EDPHYS ---
Physician Documentation [facility] Name: Ezequiel Padron Age: 39 yrs Sex: Male : 1985 Arrival Date: 03/29/2024 Time: 01:06 Bed 13 Private MD: ED Physician Donn Murphy HPI: 03/29 01:33 This 39 yrs old Black Male presents to ER via Ambulatory with complaints of Flu rt Symptoms, Fever. :33 Patient with history of hypertension, CHF presents to the ED with cough, fever, rt generalized bodyaches for about 2 days. He did take Tylenol to modest relief. Denies other acute complaints at this time, symptoms are moderate in severity, no other aggravating or elevating factors.. Historical: - Allergies: : Nitroglycerin; vc1 - Home Meds: : metoprolol tartrate 100 mg Oral tablet 2 times per day [Active]; vc1 - PMHx: :28 Congestive heart failure; Gout; Hypertensive disorder; vc1 - PSHx: :28 R femur; vc1 - Immunization history:: Client reports receiving the 2nd dose of the Covid vaccine, Flu vaccine is not up to date. - Infectious Disease History:: Denies. - Social history:: Smoking status: Patient reports the use of cigarette tobacco products, denies chronic smoking, but will smoke occasionally. - Family history:: not pertinent. ROS: 01:33 Cardiovascular: Negative for chest pain, palpitations, and edema, Abdomen/GI: Negative rt for abdominal pain, nausea, vomiting, diarrhea, and constipation, MS/Extremity: Negative for injury and deformity, Skin: Negative for injury, rash, and discoloration, Constitutional: Positive for body aches, fever, : ENT: Positive for rhinorrhea, sore throat, :33 Respiratory: Positive for cough, Negative for shortness of breath, Exam: :33 Constitutional: This is a well developed, well nourished patient who is awake, alert, rt and in no acute distress. Head/Face: Normocephalic, atraumatic. Chest/axilla: Normal chest wall appearance and motion. Nontender with no deformity. No lesions are appreciated. Cardiovascular: Regular rate and rhythm with a normal S1 and S2. No gallops, murmurs, or rubs. Normal PMI, no JVD. No pulse deficits. Respiratory: Lungs have equal breath sounds bilaterally, clear to auscultation and percussion. No rales, rhonchi or wheezes noted. No increased work of breathing, no retractions or nasal flaring. Abdomen/GI: Soft, non-tender, with normal bowel sounds. No distension or tympany. No guarding or rebound. No evidence of tenderness throughout. Skin: Warm, dry with normal turgor. Normal color with no rashes, no lesions, and no evidence of cellulitis. MS/ Extremity: Pulses equal, no cyanosis. Neurovascular intact. Full, normal range of motion. Neuro: Awake and alert, GCS 15, oriented to person, place, time, and situation. Cranial nerves II-XII grossly intact. Motor strength 5/5 in all extremities. Sensory grossly intact. Cerebellar exam normal. Normal gait. 02:40 ECG was reviewed by the Attending Physician. rt Vital Signs: 01:25 BP 216 / 150; Pulse 105; Resp 20; Temp 98.5; Pulse Ox 98% ; Weight 104.33 kg; Height 6 vc1 ft. 0 in. ; 02:10 BP 198 / 112; Pulse 81; Resp 17; Pulse Ox 100% ; dd2 03:43 BP 196 / 115; Pulse 82; Resp 16; Pulse Ox 100% ; dd2 01:25 Body Mass Index 31.19 (104.33 kg, 182.88 cm) vc1 [place] Coma Score: 01:51 Eye Response: spontaneous(4). Motor Response: obeys commands(6). Verbal Response: dd2 oriented(5). Total: 15. MDM: 01:28 Medical Screening Exam initiated rt 03:54 Differential diagnosis: Viral syndrome, hypertensive urgency. Data reviewed: vital rt signs, nurses notes, lab test result(s), EKG, radiologic studies. Consideration of Admission/Observation Escalation of care including admission/observation considered. Recommend admission to the patient for elevated troponin. Patient strongly declines as he has previously to admission for elevated troponins. Blood pressure still jessica elevated. Patient does have decision-making capacity understands risks of leaving despite recommendations. Patient instructed to follow-up with primary care, strict return precautions were discussed.. I considered the following discharge prescriptions or medication management in the emergency department Medications were administered in the Emergency Department. See MAR. Independent interpretation of the following test(s) in the Emergency Department X-Ray: My interpretation is No pneumonia seen on interpretation of x-ray images. Care significantly affected by the following chronic conditions: Hypertension, Congestive Heart Failure. Counseling: I had a detailed discussion with the patient and/or guardian regarding the historical points, exam findings, and any diagnostic results supporting the discharge/admit diagnosis, lab results. 03/29 01:32 Order name: Basic Metabolic Panel; Complete Time: 02:38 rt 03/29 01:32 Order name: CBC with Diff; Complete Time: 02:38 rt 03/29 01:32 Order name: LFT's; Complete Time: 02:38 rt 03/29 01:32 Order name: Troponin HS; Complete Time: 02:38 rt 03/29 01:32 Order name: Influenza Screen (a \T\ B); Complete Time: 02:38 rt 03/29 01:32 Order name: SARS RAPID; Complete Time: 02:38 rt 03/29 01:32 Order name: EKG; Complete Time: 01:33 rt 03/29 01:32 Order name: Cardiac monitoring; Complete Time: :54 rt 03/29 01:32 Order name: EKG - Nurse/Tech; Complete Time: :54 rt 03/29 01:32 Order name: IV Saline Lock; Complete Time: :51 rt 03/29 01:32 Order name: Labs collected and sent; Complete Time: :51 rt 03/29 01:32 Order name: O2 Per Protocol; Complete Time: 01:51 rt 03/29 01:32 Order name: O2 Sat Monitoring; Complete Time: 01:51 rt EC:40 Rate is 89 beats/min. Rhythm is regular, Normal Sinus Rhythm with No ectopy, LVH rt present. QRS [place] is Normal. IN interval is normal. QRS interval is normal. QT interval is normal. No Q waves. T waves are Normal. No ST changes noted. Interpreted by me. Administered Medications: 02:10 Drug: Metoprolol PO 100 mg PO once Route: PO; dd2 02:40 Follow up: Response: No adverse reaction dd2 02:10 Drug: Acetaminophen PO 1000 mg PO once Route: PO; dd2 02:40 Follow up: Response: No adverse reaction dd2 03:40 Drug: HydrALAZINE PO 50 mg PO once Route: PO; dd2 03:46 Follow up: Response: Medication administered at discharge. dd2 Disposition Summary: 03/29/24 03:22 Discharge Ordered Notes: Location: Home rt Problem: an ongoing problem rt Symptoms: are unchanged rt Condition: Fair rt Diagnosis - Fever, unspecified rt - Essential (primary) hypertension rt - Elevated troponin rt Followup: rt - With: Private Physician - When: 2 - 3 days - Reason: Followup: rt - With: Emergency Department - When: As needed - Reason: Worsening of condition Discharge Instructions: - Discharge Summary Sheet rt - Hypertension, Adult rt - Upper Respiratory Infection, Adult rt Forms: - Work release form rt - Medication Reconciliation Form rt - Antibiotic Education rt - Prescription Opioid Use rt - Patient Portal Instructions rt - Leadership Thank You Letter rt Signatures: Dispatcher [employer] EDMS Lisa Molina RN RN vc1 Donn Murphy MD MD rt RACHAEL HAMPTON RN RN dd2 Corrections: (The following items were deleted from the chart) 01:33 01:33 BASIC METABOLIC PANEL+C.LAB.BRZ ordered. EDMS EDMS 01:33 01:33 CBC+H.LAB.BRZ ordered. EDMS EDMS 01:33 01:33 HEPATIC FUNCTION+C.LAB.BRZ ordered. EDMS EDMS 01:33 01:33 Troponin High Sensitivity+C.LAB.BRZ ordered. EDMS EDMS 01:33 01:33 Influenza Screen (A \T\ B)+BA.LAB.BRZ ordered. EDMS EDMS 01:33 01:33 SARS-COV-2 Antigen Rapid+I.LAB.BRZ ordered. EDMS EDMS
[2024-03-29] MEDS ORDERED: HYDRALAZINE HCL 25 MG TABLET ONE (03:36)
[2024-03-29 05:22] VITALS: TEMP 98.5
[2024-03-29 05:27] VITALS: O2SAT 100
[2024-03-29 05:38] VITALS: BP 196/115
--- NOTE | 2024-03-30 12:00 | EKG ---
Test Date: 2024-03-29 Test Time: 01:51:33 [place] [employer]: AF MEASUREMENT RESULTS: Intervals: Rate: 89 HI: 146 QRSD: 106 QT: 380 QTc: 462 [place]: P: 50 HI: 146 QRS: -27 T: 155 INTERPRETIVE STATEMENTS: Normal sinus rhythm Possible Left atrial enlargement Left ventricular hypertrophy with repolarization abnormality Abnormal ECG Compared to ECG 03/21/2024 06:26:20 Myocardial infarct finding no longer present Electronically Signed On 03-30-24 11:59:11 [employer] by Rich Terrazas
== END 2024-03-29 03:45 | disposition home or self-care (01) ==
LOC: ER 01:06
DX: R50.9 Fever, unspecified (principal); I10 Essential (primary) hypertension; R79.89 Other specified abnormal findings of blood chemistry; I50.9 Heart failure, unspecified; F17.210 Nicotine dependence, cigarettes, uncomplicated; Z11.52 Encounter for screening for COVID-19
CPT/HCPCS: 36415; 80048; 80076; 84484; 85025; 87804; 87811; 93005; 99284

== ENCOUNTER 2024-04-04 13:12 | Emergency (ER) | payer OTHER ==
--- OUTSIDE RECORDS SUMMARY | 2024-04-04 13:15 | XMS REPORT | Continuity of Care Document ---
Author Name Unknown Address [address] [facility] [address] [place] [address] [facility] thconnect Address [address] [facility] [address] [place] [address] Care Team Providers Care Locomotive Mechanic Name Role Phone Cristy FREDEIRCK, Marshall Dean Primary Care Physician Cipriano FREDERICK, Basim Sanz Attending Clinician + Tameka NOVOA Attending Clinician Unavailable Tameka Garcia Attending Clinician [phone] Doctor Unassigned, [place] Attending Clinician U jose e Neumann RN, Sherrell Attending Clinician Unavailable DIMITRIOS ABEL Attending Clinician UnavailDimitrios Kearney MD Attending Clinician [phone] DIMITRIOS ABEL Admitting Clinician Dimitrios Kasper MD Admitting Clinician [phone] Payers Payer Name Policy Type Policy Number Effective Date Expirati on Date Source Problems Condition Name Condition Details Condition Category Status Onset Date Resolution Date Last Treatment Date Treating Clinician Comments Source SOB (shortness of breath) SOB (shortness of breath) Disease Active -14 00:00: 00 [facility] Obesity (BMI 30-39.9) Obesity (BMI 30-39.9) Disease Active 11-23 00:00: 00 [facility] Allergies, Adverse Reactions, Alerts Allergy Name Allergy Type Status Severity Reaction(s) Onset Date Inactive Date Treating Clinician Comments Source MORPHINE DRUG INGREDI Active Unknown-Cmnt 12-06 00:00: 00 [facility] Morphine Propensi ty to adverse reaction s Active Unknown - See comments 12-06 00:00: 00 Patient does not know reaction [facility] NO KNOWN ALLERGIE S Drug Class Active [facility] Social History Social Habit Start Date Stop Date Quantity Comments Source History SDOH Alcohol Std Drinks [facility] History SDOH Alcohol Binge [facility] History SDOH Alcohol Frequency [facility] Exposure to SARS-CoV-2 (event) 2021-11-26 00:00:00 2021-12-06 12:55:[address] [facility] Alcohol intake 2021-12-06 00:00:00 2021-12-06 00:00:00 Current drinker of alcohol (finding) [facility] Alcohol Comment 2016-11-22 00:00:00 2016-11-22 00:00:[address] [facility] Tobacco use and exposure 2016-11-22 00:00:00 2016-11-22 00:00:00 Smokeless tobacco non-user [facility] Sex Assigned At 1985 00:00:00 1985 00:00:00 [facility] Smoking Status Start Date Stop Date Source Never smoked tobacco [facility] Medications Ordered Medication Name Filled Medication Name Start Date Stop Date Current Medication? Ordering Clinician Indication Dosage Frequency Signature (SIG) Comments Components Source lisinopriL (PRINIVIL,Z ESTRIL) tablet 20 mg 12-07 14:00: 00 Yes 20mg 20 mg, Oral, DAILY, First dose on Sat12/07/21 at 0900, Until Discontinu ed, Routine [facility] HYDROcodone -acetaminop hen (NORCO) 10-325 mg tablet 1 tablet 12-06 17:15: 00 12-06 16:12 :00 No 1{tbl} 1 tablet, Oral, ONCE, 1 dose, On Sat12/06/21 at 1215, Routine [facility] carvediloL (COREG) tablet 25 mg 12-06 17:15: 00 12-06 16:12 :00 No 25mg 25 mg, Oral, ONCE, 1 dose, On Sat12/06/21 at 1215, Routine [facility] methylpredn isolone sod succ (SOLU-MEDRO L) injection 125 mg 12-06 16:45: 00 12-06 16:09 :00 No 125mg 125 mg, Intramuscu lar, ONCE, 1 dose, On Sat12/06/21 at 1145, REGINA [facility] acetaminoph en-codeine 300-30 mg tablet 12-06 00:00: 00 Yes [id number] 1{tbl} Take 1 tablet by mouth every 4 (four) hours as needed for Pain (scale 4-6). Indication s: acute pain [facility] predniSONE 20 mg tablet 12-06 00:00: 00 Yes [id number] 1 PO BID x 4 days [facility] aspirin 81 mg chewable tablet 09-14 00:00: 00 Yes [id number] 81mg Take 1 tablet by mouth daily. [facility] atorvastati n 40 mg tablet 09-14 00:00: 00 Yes [id number] 40mg Take 1 tablet by mouth at bedtime. [facility] carvediloL 25 mg tablet 09-14 00:00: 00 Yes [id number] 37.5mg Take 1.5 tablets by mouth 2 (two) times daily with meals. [facility] furosemide 40 mg tablet 09-14 00:00: 00 Yes [id number] 40mg Take 1 tablet by mouth every morning and evening. [facility] lisinopriL 10 mg tablet 09-14 00:00: 00 Yes [id number] 30mg Take 3 tablets by mouth daily. [facility] spironolact one 25 mg tablet 09-14 00:00: 00 Yes [id number] 25mg Take 1 tablet by mouth daily. [facility] aspirin 81 mg chewable tablet 08-22 00:00: 00 09-14 00:00 :00 No [id number] 81mg Take 1 tablet by mouth daily for 180 days. [facility] lisinopriL 10 mg tablet 08-22 00:00: 00 09-14 00:00 :00 No [id number] 30mg Take 3 tablets by mouth daily for 180 days. [facility] spironolact one 25 mg tablet 08-22 00:00: 00 09-14 00:00 :00 No [id number] 25mg Take 1 tablet by mouth daily for 180 days. [facility] carvediloL (COREG) tablet 37.5 mg 08-21 22:00: 00 Yes 37.5mg 37.5 mg, Oral, BID MEALS, First dose (after last modificati on) on Sat08/21/21 at 1700, Until Discontinu ed, Routine [facility] lisinopriL (PRINIVIL,Z ESTRIL) tablet 30 mg 08-21 14:00: 00 Yes 30mg 30 mg, Oral, DAILY, First dose (after last modificati on) on Sat08/21/21 at 0900, Until Discontinu ed, Routine [facility] magnesium oxide (MAG-OX 400) tablet 400 mg 08-21 13:45: 00 08-21 13:20 :00 No 400mg 400 mg, Oral, ONCE, 1 dose, On Sat08/21/21 at 0845, Routine [facility] amLODIPine 10 mg tablet 08-21 11:33: 41 08-21 00:00 :00 No 10mg Take 10 mg by mouth daily. [facility] hydroCHLORO thiazide 25 mg tablet 08-21 11:33: 41 08-21 00:00 :00 No 25mg Take 25 mg by mouth daily. [facility] ibuprofen 800 mg tablet 08-21 11:33: 41 08-21 00:00 :00 No 800mg Take 800 mg by mouth 2 (two) times daily. [facility] hydrALAZINE (APRESOLINE ) tablet 10 mg 08-21 07:00: 00 08-21 06:05 :00 No 10mg 10 mg, Oral, ONCE, 1 dose, On 08/21/21 at 0200, Routine [facility] atorvastati n 40 mg tablet 08-21 00:00: 00 09-14 00:00 :00 No [id number] 40mg Take 1 tablet by mouth at bedtime for 180 days. [facility] furosemide 40 mg tablet 08-21 00:00: 00 09-14 00:00 :00 No [id number] 40mg Take 1 tablet by mouth every morning and evening for 180 days. [facility] carvediloL 25 mg tablet 08-21 00:00: 00 09-14 00:00 :00 No [id number] 37.5mg Take 1.5 tablets by mouth 2 (two) times daily with meals for 180 days. [facility] carvediloL 25 mg tablet 08-21 00:00: 00 08-21 00:00 :00 No [id number] 25mg Take 1 tablet by mouth 2 (two) times daily with meals for 180 days. [facility] furosemide (LASIX) tablet 40 mg 08-20 14:00: 00 Yes 40mg 40 mg, Oral, QAM+PM, First dose (after last modificati on) on 08/20/21 at 0900, Until Discontinu ed, Routine [facility] lisinopriL (PRINIVIL,Z ESTRIL) tablet 20 mg 08-20 14:00: 00 08-21 11:42 :47 No 20mg 20 mg, Oral, DAILY, First dose (after last modificati on) on 08/20/21 at 0900, Until Discontinu ed, Routine [facility] carvediloL (COREG) tablet 25 mg 08-20 13:00: 00 08-21 17:46 :56 No 25mg 25 mg, Oral, BID MEALS, First dose (after last modificati on) on 08/20/21 at 0800, Until Discontinu ed, Routine [facility] lisinopriL (PRINIVIL,Z ESTRIL) tablet 5 mg 08-19 15:00: 00 08-19 14:30 :00 No 5mg 5 mg, Oral, ONCE, 1 dose, On 08/19/21 at 1000, Routine [facility] carvediloL (COREG) tablet 12.5 mg 08-19 13:00: 00 08-19 22:39 :41 No 12.5mg 12.5 mg, Oral, BID MEALS, First dose (after last modificati on) on 08/19/21 at 0800, Until Discontinu ed, Routine [facility] furosemide (LASIX) injection 40 mg 08-19 01:00: 00 08-19 17:31 :11 No 40mg 40 mg, Slow IV Push, Q12H, First dose on Sat08/18/21 at 2000, Until Discontinu ed, Routine [facility] hydrALAZINE (APRESOLINE ) tablet 25 mg 08-18 21:47: 07 Yes 25mg 25 mg, Oral, Q6HPRN, Starting on Sat08/18/21 at 1647, Until Discontinu ed, Routine, SBP >180 [facility] lisinopriL (PRINIVIL,Z ESTRIL) tablet 10 mg 08-18 18:15: 00 08-18 18:14 :00 No 10mg 10 mg, Oral, DAILY, 1 dose, First dose on Sat08/18/21 at 1315, Routine [facility] lisinopriL (PRINIVIL,Z ESTRIL) tablet 10 mg 08-18 16:00: 00 08-19 13:47 :35 No 10mg 10 mg, Oral, DAILY, First dose on Sat08/18/21 at 1100, Until Discontinu ed, Routine [facility] spironolact one (ALDACTONE) tablet 25 mg 08-18 14:00: 00 Yes 25mg 25 mg, Oral, DAILY, First dose on Sat08/18/21 at 0900, Until Discontinu ed, Routine [facility] aspirin chewable tablet 81 mg 08-18 14:00: 00 Yes 81mg 81 mg, Oral, DAILY, First dose on Sat08/18/21 at 0900, Until Discontinu ed, Routine [facility] furosemide (LASIX) tablet 40 mg 08-18 14:00: 00 08-18 16:18 :32 No 40mg 40 mg, Oral, QAM+PM, First dose on Sat08/18/21 at 0900, Until Discontinu ed, Routine [facility] amLODIPine (NORVASC) tablet 10 mg 08-18 12:00: 00 08-18 11:05 :00 No 10mg 10 mg, Oral, ONCE, 1 dose, On Sat08/18/21 at 0700, Routine [facility] atorvastati n (LIPITOR) tablet 40 mg 08-18 02:00: 00 Yes 40mg 40 mg, Oral, QHS, First dose on Sat08/17/21 at 2100, Until Discontinu ed, Routine [facility] heparin (porcine) injection 5,000 Units 08-18 01:00: 00 Yes 5000U 5,000 Units, Subcutaneo us, Q12H, First dose on Sat08/17/21 at 2000, Until Discontinu ed, Routine [facility] hydrALAZINE (APRESOLINE ) tablet 10 mg 08-17 22:45: 00 08-17 23:51 :00 No 10mg 10 mg, Oral, ONCE, 1 dose, On Sat08/17/21 at 1745, Routine [facility] hydrALAZINE (APRESOLINE ) tablet 10 mg 08-17 21:45: 54 08-18 21:47 :24 No 10mg 10 mg, Oral, Q6HPRN, Starting on Sat08/17/21 at 1645, Until Sat08/18/21 at 1647, Routine, SBP >180 [facility] sulfur hexafluorid e microsphr (LUMASON) injection 5 mL 08-17 20:45: 00 08-17 20:45 :00 No [id number] 5mL 5 mL, Intravenou s, ONCE, 1 dose, On Sat08/17/21 at 1545, Routine
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 Restricted medication : DEZ QIU [facility] magnesium sulfate in water 4 gram/50 mL (8 %) IV Piggyback 4 g 08-17 18:15: 00 08-17 18:29 :00 No 4g 4 g, IV Piggyback, ONCE, 1 dose, On Sat08/17/21 at 1315, Routine [facility] KCL (KLOR-CON M20) tablet 40 mEq 08-17 18:15: 00 08-17 18:10 :00 No 40meq 40 mEq, Oral, ONCE, 1 dose, On Sat08/17/21 at 1315, Routine [facility] furosemide (LASIX) injection 40 mg 08-17 17:15: 00 08-18 12:42 :25 No 40mg 40 mg, Slow IV Push, Q12H, First dose on Sat08/17/21 at 1215, Until Discontinu ed, Routine [facility] acetaminoph en (TYLENOL) tablet 650 mg 08-17 14:09: 58 Yes 650mg 650 mg, Oral, Q6HPRN, Starting on Sat08/17/21 at 0909, Until Discontinu ed, Routine, Pain (scale 1-3) [facility] amLODIPine 10 mg tablet 08-17 09:16: 15 Yes 10mg Take 10 mg by mouth daily. [facility] hydroCHLORO thiazide 25 mg tablet 08-17 09:16: 15 Yes 25mg Take 25 mg by mouth daily. [facility] ibuprofen 800 mg tablet 08-17 09:16: 15 Yes 800mg Take 800 mg by mouth 2 (two) times daily. [facility] Vital Signs Vital Name Observation Time Observation Value Comments S qi Systolic blood pressure 2021-12-06 17:40:07 158 mm[Hg] [facility] Diastolic blood pressure 2021-12-06 17:40:07 105 mm[Hg] [facility] Heart rate 2021-12-06 15:43:00 91 /min [facility] Respiratory rate 2021-12-06 15:43:00 20 /min [facility] Oxygen saturation in Arterial blood by Pulse oximetry 2021-12-06 15:43:00 97 /min [facility] Body temperature 2021-12-06 14:49:[address] [facility] Body height 2021-12-06 14:49:00 182.9 cm [facility] Body weight 2021-12-06 14:49:00 99.791 kg [facility] BMI 2021-12-06 14:49:00 29.84 kg/m2 [facility] Systolic blood pressure 2021-08-21 20:39:00 143 mm[Hg] [facility] Diastolic blood pressure 2021-08-21 20:39:00 104 mm[Hg] [facility] Heart rate 2021-08-21 20:39:00 79 /min [facility] Body temperature 2021-08-21 20:39:[address] [facility] Respiratory rate 2021-08-21 20:39:00 18 /min [facility] Oxygen saturation in Arterial blood by Pulse oximetry 2021-08-21 20:39:00 99 /min [facility] Body weight 2021-08-21 10:57:00 104.055 kg [facility] BMI 2021-08-21 10:57:00 31.11 kg/m2 [facility] Body height 2021-08-18 10:31:00 182.9 cm [facility] Procedures Procedure Date / Time Performed Performing Clinician Source NOTICE OF PRIVACY PRACTICES 2021-12-06 14:38:21 Doctor Unassigned, [place] [facility] CONSENT/REFUSAL FOR DIAGNOSIS AND TREATMENT 2021-12-06 14:38:03 Doctor Unassigned, [place] [facility] AUTHORIZATION FOR RELEASE OF PHI 2021-09-01 05:01:00 Doctor Unassigned, [place] [facility] MAGNESIUM 2021-08-21 08:42:00 Eryn Cowart [facility] BASIC METABOLIC PANEL (NA, K, CL, CO2, GLUCOSE, BUN, CREATININE, CA) 2021-08-21 08:42[facility] 2021-08-21 08:42:[address] [facility] HB ECG ROUTINE & RHYTHM STRIP 2021-08-20 13:02:55 [facility] 2021-08-20 09:22:00 Anca [facility] BASIC METABOLIC PANEL (NA, K, CL, CO2, GLUCOSE, BUN, CREATININE, CA) 2021-08-20 09:22:00 An[facility] CBC WITH DIFF 2021-08-20 09:22:00 [facility]HYTHM [facility] 2021-08-19 13:08:08 [facility] 2021-08-19 10:21:00 [place] [facility] BASIC METABOLIC PANEL (NA, K, CL, CO2, GLUCOSE, BUN, CREATININE, CA) 2021-08-19 10:21:00 [facility] (NA, K, CL, CO2, GLUCOSE, BUN, CREATININE, CA) 2021-08-18 19:41:00 [facility] RHYTHM STRIP 2021-08-18 14:50:24 [facility] 2021-08-18 09:10:00 Eryn Cowart [facility] BASIC METABOLIC PANEL (NA, K, CL, CO2, GLUCOSE, BUN, CREATININE, CA) 2021-08-18 09:10:00 [facility]FF 2021-08-18 09:10:00 [facility] 2021-08-17 23:58:00 Sup[facility] TRANSTHORACIC ECHO (TTE) COMPLETE W/ CONTRAST 2021-08-17 18:53:00 Supa [facility] PHOSPHORUS 2021-08-17 15:43:00 [facility] MAGNESIUM 2021-08-17 15:43:00 [facility] FERRITIN SERUM 2021-08-17 15:43:00 Eryn Cowart [facility] TROPONIN I 2021-08-17 15:43:00 Sup[facility] THYROID STIMULATING HORMONE 2021-08-17 15:43:00 Supa [facility] HEPATIC FUNCTION PANEL ([id number]) (ALB,T.PRO,BILI T,BU/BC,ALT,AST,ALK PHOS) 2021-08-17 15:43:00 Supa [facility] BASIC METABOLIC PANEL (NA, K, CL, CO2, GLUCOSE, BUN, CREATININE, CA) 2021-08-17 15:43:00 Supa [facility] IRON PANEL 2021-08-17 15:43:00 Sup[facility] CBC WITH DIFF 2021-08-17 15:43:00 Sup[facility] GLYCOSYLATED HEMOGLOBIN (A1C) 2021-08-17 15:43:00 Supa [facility] N-TERMINAL PRO-BNP 2021-08-17 15:43:00 Supa [facility] XR CHEST 1 VW 2021-08-17 15:10:00 Sup[facility] Encounters Start Date/Time End Date/Time Encounter Type Admission Type Attending [facility] Care Facility Care Department Encounter ID Source 2024-03-30 10:06:11 2024-03-30 10:06:11 Outpatient [facility] [id number] 2022-08-17 00:00:2022-08-17 00:00:00 Refill Taimonie [facility] 1.2840.114 350.1.13.10 4.2.7.2.686 [id number] [facility] 2021-12-06 09:51:00 2021-12-06 13:09:00 Emergency X BRIGHT, Tameka [facility] ERT [id number] [facility] 2021-12-06 09:51:00 2021-12-06 13:09:00 Emergency BrightTameka velezge [facility] 1.2840.114 350.1.13.10 4.2.7.2.686 [id number] [facility] 2021-12-06 00:00:00 2021-12-06 00:00:00 Orders Only Doctor Unassigned, [place] [facility] 1.2840.114 350.1.13.10 4.2.7.2.686 [id number] [facility] 2021-09-14 00:00:00 2021-09-14 00:00:00 Telephone Ciarageraldmonie [facility] 1.2840.114 350.1.13.10 4.2.7.2.686 [id number] [facility] 2021-09-12 00:00:00 2021-09-12 00:00:00 [facility] 1.2840.114 350.1.13.10 4.2.7.2.686 [id number] [facility] 2021-09-01 00:00:00 2021-09-01 00:00:00 Orders Only Doctor Unassigned, [place] [facility] 1.2840.114 350.1.13.10 4.2.7.2.686 [id number] [facility] 2021-09-01 00:00:00 2021-09-01 00:00:00 [facility] [id number] 350.1.13.10 4.2.7.2.686 [id number] [facility] 2021-08-30 00:00:00 2021-08-30 00:00:00 Telephone [facility] [id number] 350.1.13.10 4.2.7.2.686 [id number] [facility] 2021-08-22 00:00:00 2021-08-22 00:00:00 Transition of Care Sherrell Neumann [facility] [id number] 350.1.13.10 4.2.7.2.686 [id number] [facility] 2021-08-17 08:35:00 2021-08-21 17:42:00 Inpatient U DIMITRIOS ABEL [facility] [id number] [facility] 2021-08-17 08:35:00 2021-08-21 17:42:00 Hospital Encounter Cipriano Denisdarlene MainahDimitrios Douglass [facility] 1.2840.114 350.1.13.10 4.2.7.2.686 [id number] [facility] 2021-08-18 00:00:00 2021-08-18 00:00:00 Telephone Dimitrios Abel [facility] [id number] 350.1.13.10 4.2.7.2.686 [id number] [facility] Results Test Description Test Time Test Comments Results Result Co mments Source [facility] (NA, K, CL, CO2, GLUCOSE, BUN, CREATININE, CA)2021-08-21 10:07:34* Test Item Value Reference Range Interpretation Comme nts NA (test code = 8043495215) 135 mmol/L 135-145 K (test code = 0890362129) 4.4 mmol/L 3.5-5.0 CL (test code = 7310140233) 102 mmol/L 98-108 CO2 TOTAL (test code = 8813896996) 26 mmol/L 23-31 AGAP (test code = 8779348514) 2-16 BUN (test code = 8179401300) 27 mg/dL 7-23 H GLUCOSE (test code = 6948089176) 104 mg/dL 70-110 CREATININE (test code = 6446424483) 1.49 mg/dL 0.60-1.25 H CALCIUM (test code = 8075008524) 9.0 mg/dL 8.6-10.6 eGFR (test code = 3009621761) mL/min/1.73m2 EBEN (test code = EBEN) Association [...] imaging tests). Lab Interpretation (test code = 67272-8) [facility]normal [facility] 10:07:34* Test Item Value Reference Range Interpretation Comme nts MAGNESIUM (test code = 9982075753) 1.9 mg/dL 1.7-2.4 Lab Interpretation (test cod e = 68517-8) Normal [facility] (NA, K, CL, CO2, GLUCOSE, BUN, CREATININE, CA)2021-08-20 10:22:59* Test Item Value Reference Range Interpretation Comme nts NA (test code = 5903742194) 137 mmol/L 135-145 K (test code = 5644715019) 4.4 mmol/L 3.5-5.0 CL (test code = 3115765815) 102 mmol/L 98-108 CO2 TOTAL (test code = 5337838204) 26 mmol/L 23-31 AGAP (test code = 4683161931) 2-16 BUN (test code = 6739699184) 31 mg/dL 7-23 H GLUCOSE (test code = 8176633602) 119 mg/dL 70-110 H CREATININE (test code = 8117421236) 1.56 mg/dL 0.60-1.25 H CALCIUM (test code = 0242613602) 9.1 mg/dL 8.6-10.6 eGFR (test code = 4067188350) mL/min/1.73m2 EBEN (test code = EBEN) Association [...] imaging tests). Lab Interpretation (test code = 09293-9) [facility]normal [facility] 10:22:59* Test Item Value Reference Range Interpretation Comme nts MAGNESIUM (test code = 5933851108) 2.1 mg/dL 1.7-2.4 Lab Interpretation (test cod e = 65922-4) Normal [facility] WITH [id number] 09:42:15* Test Item Value Reference Range Interpretation Comme nts WBC (test code = 6690-2) See_Comment H [Automated [employer]] The system which generated this result transmitted reference range: 4.20 - 10.70 10*3/?L. The reference range was not used to interpret this result as normal/abnormal. RBC (test code = 789-8) See_Comment [[employer]ated [employer]] The system which generated this result transmitted [...] 32.8 g/dL 31.2-35.0 RDW-SD (test code = 37126-2) 39.3 fL 38.5-51.6 RDW-CV (test code = 788-0) 12.5 % 12.1-15.4 PLT (test code = 777-3) See_Comment H [[employer]] The system which generated this result transmitted reference range: 150 - 328 10*3/?L. The reference range was not used to interpret this result as normal/abnormal. MPV (test code = 09191-3) 9.3 fL 9.8-13.0 L NRBC/100 WBC (test code = 4206126590) See_Comment [[employer]ated [employer]] The system which generated this result transmitted reference range: 0.0 - 10.0 /100 WBCs. The reference range was not used to interpret this result as normal/abnormal. NRBC x10^3 (test code = 5358438202) <0.01 See_Comment [[employer]] The system which generated this result transmitted reference range: 10*3/?L. The reference range was not used to interpret this result as normal/abnormal. GRAN MAT (NEUT) % (test code = 770-8) 60.5 % IMM GRAN % (test code = 9569959246) 0.30 % LYMPH % (test code = 736-9) 26.7 % MONO % (test code = 5905-5) 8.3 % EOS % (test code = 713-8) 3.4 % BASO % (test code = 706-2) 0.8 % GRAN MAT x10^3(ANC) (test code = 9697729640) 7.17 10*3/uL 1.99-6.95 H IMM GRAN x10^3 (test code = 5141630346) 0.03 10*3/uL 0.00-0.06 LYMPH x10^3 (test code = 731-0) 3.16 10*3/uL 1.09-3.23 MONO x10^3 (test code = 742-7) 0.98 10*3/uL 0.36-1.02 EOS x10^3 (test code = 711-2) 0.40 10*3/uL 0.06-0.53 BASO x10^3 (test code = 704-7) 0.10 10*3/uL 0.01-0.09 H Lab Interpretation (test code = 39957-6) Abnormal [facility] (NA, K, CL, CO2, GLUCOSE, BUN, CREATININE, CA)2021-08-19 10:52:12* Test Item Value Reference Range Interpretation Comme nts NA (test code = 8194448663) 136 mmol/L 135-145 K (test code = 5196720230) 3.8 mmol/L 3.5-5.0 CL (test code = 9870459575) 100 mmol/L 98-108 CO2 TOTAL (test code = 7150181045) 29 mmol/L 23-31 AGAP (test code = 5410403122) 2-16 BUN (test code = 6673264053) 32 mg/dL 7-23 H GLUCOSE (test code = 6243236994) 115 mg/dL 70-110 H CREATININE (test code = 0788085244) 1.67 mg/dL 0.60-1.25 H CALCIUM (test code = 8555570973) 9.1 mg/dL 8.6-10.6 eGFR (test code = 4299527708) mL/min/1.73m2 EBEN (test code = EBEN) Association [...] imaging tests). Lab Interpretation (test code = 83136-0) [facility]normal [facility]20[facility] 10:52:12* Test Item Value Reference Range Interpretation Comme nts MAGNESIUM (test code = 9797942352) 1.9 mg/dL 1.7-2.4 Lab Interpretation (test cod e = 67147-5) Normal [facility] (NA, K, CL, CO2, GLUCOSE, BUN, CREATININE, CA)2021-08-18 21:19:06* Test Item Value Reference Range Interpretation Comme nts NA (test code = 3782780406) 135 mmol/L 135-145 K (test code = 5560620513) 3.9 mmol/L 3.5-5.0 CL (test code = 6355172812) 98 mmol/L 98-108 CO2 TOTAL (test code = 4135013585) 30 mmol/L 23-31 AGAP (test code = 9187569070) 2-16 BUN (test code = 4971326082) 29 mg/dL 7-23 H GLUCOSE (test code = 3024142750) 121 mg/dL 70-110 H CREATININE (test code = 8461882465) 1.58 mg/dL 0.60-1.25 H CALCIUM (test code = 8712894333) 8.9 mg/dL 8.6-10.6 eGFR (test code = 9623923227) mL/min/1.73m2 EEBN (test code = EBEN) Association of Glomerular [...] imaging tests). Lab Interpretation (test code = 66391-8) Abnormal [facility] METABOLIC PANEL (NA, K, CL, CO2, GLUCOSE, BUN, CREATININE, CA)2021-08-18 10:04:44* Test Item Value Reference Range Interpretation Comme nts NA (test code = 0567070082) 135 mmol/L 135-145 K (test code = 2219287195) 4.0 mmol/L 3.5-5.0 Slight hemolysis CL (test code = 1513572638) 101 mmol/L 98-108 CO2 TOTAL (test code = 2554737948) 29 mmol/L 23-31 AGAP (test code = 2097345136) 2-16 BUN (test code = 4151664447) 32 mg/dL 7-23 H Slight hemolysis GLUCOSE (test code = 1609604470) 114 mg/dL 70-110 H CREATININE (test code = 7289721916) 1.54 mg/dL 0.60-1.25 H CALCIUM (test code = 4885275040) 8.8 mg/dL 8.6-10.6 eGFR (test code = 8581518285) mL/min/1.73m2 EBEN (test code = EBEN) Association [...] imaging tests). Lab Interpretation (test code = 91185-3) [facility]normal [facility]20[facility] 10:04:44* Test Item Value Reference Range Interpretation Comme nts MAGNESIUM (test code = 2047155486) 2.2 mg/dL 1.7-2.4 Lab Interpretation (test cod e = 70354-0) Normal [facility] CenterCB WITH [id number] 09:24:38* Test Item Value Reference Range Interpretation Comme nts WBC (test code = 6690-2) See_Comment [Automated [employer]] The system which generated this result transmitted reference range: 4.20 - 10.70 10*3/?L. The reference range was not used to interpret this result as normal/abnormal. RBC (test code = 789-8) See_Comment [Automated [employer]] The system which generated this result transmitted [...] 33.3 g/dL 31.2-35.0 RDW-SD (test code = 73791-8) 39.1 fL 38.5-51.6 RDW-CV (test code = 788-0) 12.6 % 12.1-15.4 PLT (test code = 777-3) See_Comment H [Automated messa ge] The system which generated this result transmitted reference range: 150 - 328 10*3/?L. The reference range was not used to interpret this result as normal/abnormal. MPV (test code = 54153-1) 9.5 fL 9.8-13.0 L NRBC/100 WBC (test code = 5380628960) See_Comment [Automated [employer] ssage] The system which generated this result transmitted reference range: 0.0 - 10.0 /100 WBCs. The reference range was not used to interpret this result as normal/abnormal. NRBC x10^3 (test code = 8725717799) <0.01 See_Comment [Automated messa ge] The system which generated this result transmitted reference range: 10*3/?L. The reference range was not used to interpret this result as normal/abnormal. GRAN MAT (NEUT) % (test code = 770-8) 65.3 % IMM GRAN % (test code = 7526253050) 0.20 % LYMPH % (test code = 736-9) 23.3 % MONO % (test code = 5905-5) 7.0 % EOS % (test code = 713-8) 3.5 % BASO % (test code = 706-2) 0.7 % GRAN MAT x10^3(ANC) (test code = 3143092866) 6.63 10*3/uL 1.99-6.95 IMM GRAN x10^3 (test code = 9547725196) <0.03 0.00-0.06 LYMPH x10^3 (test code = 731-0) 2.36 10*3/uL 1.09-3.23 MONO x10^3 (test code = 742-7) 0.71 10*3/uL 0.36-1.02 EOS x10^3 (test code = 711-2) 0.35 10*3/uL 0.06-0.53 BASO x10^3 (test code = 704-7) 0.07 10*3/uL 0.01-0.09 Lab Interpretation (test code = 91186-2) Abnormal [facility] CenterGLYCOSYLATED HEMOGLOBIN (A1C)2021-08-18 02:37:07* Test Item Value Reference Range Interpretation Comme nts HGB A1C (test code = 4548-4) 5.8 % 4.0-5.7 H EBEN (test code = EBEN) Reference RangesNormal: <5.7%Prediabetes: 5.7 - 6.4%Diabetes: > 6.5% Lab Interpretation (test code = 63251-0) Abnormal [facility] CenterTROPONIN [id number] 01:03:37* Test Item Value Reference Range Interpretation Comments TROPONIN I (test code = 2601693282) 0.101 ng/mL See_Comment H [Automated message] The [...] of biotin. Lab Interpretation (test code = 29733-9) Abnormal [facility] CenterTransthoracic echo (TTE)2021-08-17 22:14:20* Test Item Value Reference Range Interpretation Comme nts Ao root annulus (test code = 8158019679) 3.3 cm Ao root diam (test code = 9838824370) 3.30 cm Aortic root (test code = 6413056622) 3.3 cm LA size (test code = 2978155848) 3.7 cm LVOT diameter (test code = 2460347653) 2.00 cm LVIDD (test code = 2233877821) 5.90 cm IVS (test code = 5893662110) 1.26 cm Interventricular Septum Diastolic Thickness by 2D (test code = 4080625) 1.26 cm LVPWD (test code = 0301393399) 1.19 cm PW (test code = 5820604978) 1.19 cm 0.6-1.1 EF(Teich) (test code = 2704429447) 46.60 % LVIDS (test code = 3458281947) 4.50 cm FS (test code = 1308783123) 24 % EF - 2D (test code = 58004445) 46.60 % LAV(MOD-sp4) (test code = 2448351011) 65.30 mL MV Peak E Narciso (test code = 3105673758) 126.4 cm/s E wave decelartion time (test code = 2101056193) 0.14 s MV Prop V (test code = 6487493599) 35.00 cm/s LVOT stroke volume (test code = 4518029049) 45.10 cm3 LVOT peak narciso (test code = 8529282733) 90.0 cm/s LVOT mn grad (test code = 8579118163) mmHg AV LVOT peak gradient (test code = 2507701778) mmHg LVOT peak VTI (test code = 7016320758) 14.4 cm LV V1 mean (test code = 4775780976) 63.00 cm/s Aortic valve mean velocity (test code = 5090830555) 76.8 cm/s Ao peak narciso (test code = 9234969777) 125.5 cm/s Ao VTI (test code = 2546938363) 17.0 cm AV area by cont VTI (test code = 6252509187) 2.6 cm2 AV area peak narciso (test code = 7208454444) 2.2 cm2 Ao max PG (test code = 1682949535) 6.30 mm[Hg] AV peak gradient (test code = 3873370594) mmHg AV valve area (test code = 3180118538) 2.60 cm2 AV mean gradient (test code = 2215284816) mmHg TR Peak Narciso (test code = 9675029131) 119.4 cm/s Triscuspid Valve Regurgitation Peak Gradient (test code = 2899158036) mmHg Tapse (test code = 5265996257) 1.95 cm LA volume (BP) (test code = 0989554146) 73.5 mL LAV(MOD-sp2) (test code = 8351297666) 74.00 mL LA Volume Index (BP) (test code = 2294393078) 32.5 mL/m2 LV Diastolic Volume (BP) (test code = 5469353333) 232.2 mL EF(MOD-bp) (test code = 7643611896) 33.10 % LV Systolic Volume (BP) (test code = 1607434298) 155.2 mL SV(MOD-bp) (test code = 0838118057) 76.90 mL EF (test code = 3483560751) 33 % Left Ventricular Stroke Volume by 2-D Biplane-MOD (test code = 1294806) 76.9 mL Radiology Study observation (narrative) (test code = 04685-5) EBEN (test code = EBEN) ?Left?Ventricle: Left [...] (104.3 kg) 2.3 sq meters 183/[address] [facility] CenterHEPAT[facility] FUNCTION PANEL (69265) (ALB,T.PRO,BILI T,BU/BC,ALT,AST,ALK PHOS)2021-08-17 17:59:20* Test Item Value Reference Range Interpretation Comme nts TOTAL BILI (test code = 3510227569) 0.4 mg/dL 0.1-1.1 BILI UNCON (test code = 2486628385) 0.4 mg/dL 0.1-1.1 BILI CONJ (test code = 5157537955) 0.0 mg/dL 0.0-0.3 T PROTEIN (test code = 1298322065) 6.4 g/dL 6.3-8.2 ALBUMIN (test code = 4484682087) 3.7 g/dL 3.5-5.0 ALK PHOS (test code = 6654195010) 64 U/L 34-122 ALTv (test code = 1742-6) 39 U/L 5-50 AST(SGOT) (test code = 1460112408) 30 U/L 13-40 Lab Interpretation (test cod e = 58367-8) Normal [facility] CenterFERRITIN [id number] 17:21:19* Test Item Value Reference Range Interpretation Comme nts FERRITIN (test code = 9745977577) 29.7 ng/mL 18.0-464.0 EBEN (test code = EBEN) Biotin has been reported to cause a negative bias, interpret results relative to patient's use of biotin. Lab Interpretation (test code = 94301-4) Normal [facility] CenterTHYROID STIMULATING [id number] 17:14:24 * Test Item Value Reference Range Interpretation Comme nts TSH (test code = 4217535223) See_Comment [Automated messa ge] The system which generated this result transmitted reference range: 0.45 - 4.70 mIU/L. The reference range was not used to interpret this result as normal/abnormal. Lab Interpretation (test code = 92824-0) Normal [facility] CenterN-TERMINAL [id number] 16:55:55* Test Item Value Reference Range Interpretation Comme nts NT-proBNP (test code = 1083993550) 5070 pg/mL See_Comment H [Automated message] The system which generated this result transmitted reference range: <=125. The reference range was not used to interpret this result as normal/abnormal. EBEN (test code = EBEN) Biotin has been reported to cause a negative bias, interpret results relative to patient's use of biotin. Lab Interpretation (test code = 64437-9) Abnormal [facility] CenterTROPONIN [id number] 16:55:55* Test Item Value Reference Range Interpretation Comments TROPONIN I (test code = 9207120089) 0.117 ng/mL See_Comment H [Automated message] The [...] of biotin. Lab Interpretation (test code = 35968-1) Abnormal [facility] CenterIRON [id number] 16:52:53* Test Item Value Reference Range Interpretation Comme nts IRON (test code = 6837294265) 51 ug/dL 50-160 TIBC (test code = 9209167143) 298 ug/dL 250-410 % FE SAT (test code = 3854973498) 17 % 20-50 L Lab Interpretation (test cod e = 13287-1) Abnormal [facility]MAG[facility]UM2022-04-14 16:41:35* Test Item Value Reference Range Interpretation Comme nts MAGNESIUM (test code = 6731953472) 1.6 mg/dL 1.7-2.4 L Lab Interpretation (test cod e = 97989-6) Abnormal [facility] CenterPHOSPHORUS2022-04-14 16:41:35* Test Item Value Reference Range Interpretation Comme nts PHOSPHORUS (test code = 2981214108) 4.0 mg/dL 2.5-5.0 Lab Interpretation (test cod e = 99209-9) Normal [facility] CenterBAS[facility] METABOLIC PANEL (NA, K, CL, CO2, GLUCOSE, BUN, CREATININE, CA)2021-08-17 16:41:35* Test Item Value Reference Range Interpretation Comme nts NA (test code = 6674174653) 134 mmol/L 135-145 L K (test code = 0314834849) 3.6 mmol/L 3.5-5.0 CL (test code = 7177667786) 99 mmol/L 98-108 CO2 TOTAL (test code = 1723463823) 32 mmol/L 23-31 H AGAP (test code = 2207658890) 2-16 BUN (test code = 4190251992) 24 mg/dL 7-23 H GLUCOSE (test code = 1897085357) 111 mg/dL 70-110 H CREATININE (test code = 3625913234) 1.60 mg/dL 0.60-1.25 H CALCIUM (test code = 0583018085) 8.8 mg/dL 8.6-10.6 eGFR (test code = 2127059861) mL/min/1.73m2 EBEN (test code = EBEN) Association [...] imaging tests). Lab Interpretation (test code = 71947-8) Abnormal [facility] WITH [id number] 16:00:05* Test Item Value Reference Range Interpretation Comme nts WBC (test code = 6690-2) See_Comment [Automated messa ge] The system which generated this result transmitted reference range: 4.20 - 10.70 10*3/?L. The reference range was not used to interpret this result as normal/abnormal. RBC (test code = 789-8) See_Comment L [Automated messa ge] The system which generated [...] 33.7 g/dL 31.2-35.0 RDW-SD (test code = 84803-6) 39.5 fL 38.5-51.6 RDW-CV (test code = 788-0) 12.6 % 12.1-15.4 PLT (test code = 777-3) See_Comment H [Automated messa ge] The system which generated this result transmitted reference range: 150 - 328 10*3/?L. The reference range was not used to interpret this result as normal/abnormal. MPV (test code = 48143-5) 9.4 fL 9.8-13.0 L NRBC/100 WBC (test code = 8533714021) See_Comment [Automated [employer]] The system which generated this result transmitted reference range: 0.0 - 10.0 /100 WBCs. The reference range was not used to interpret this result as normal/abnormal. NRBC x10^3 (test code = 4061135485) <0.01 See_Comment [Automated messa ge] The system which generated this result transmitted reference range: 10*3/?L. The reference range was not used to interpret this result as normal/abnormal. GRAN MAT (NEUT) % (test code = 770-8) 65.6 % IMM GRAN % (test code = 7322666178) 0.20 % LYMPH % (test code = 736-9) 23.8 % MONO % (test code = 5905-5) 6.7 % EOS % (test code = 713-8) 3.2 % BASO % (test code = 706-2) 0.5 % GRAN MAT x10^3(ANC) (test code = 0840056181) 6.58 10*3/uL 1.99-6.95 IMM GRAN x10^3 (test code = 9240477441) <0.03 0.00-0.06 LYMPH x10^3 (test code = 731-0) 2.39 10*3/uL 1.09-3.23 MONO x10^3 (test code = 742-7) 0.67 10*3/uL 0.36-1.02 EOS x10^3 (test code = 711-2) 0.32 10*3/uL 0.06-0.53 BASO x10^3 (test code = 704-7) 0.05 10*3/uL 0.01-0.09 Lab Interpretation (test code = 67757-7) Abnormal [facility]"
--- NOTE | 2024-04-04 13:43 | EDPHYS ---
Physician Documentation [facility] Name: Ezequiel Padron Age: 39 yrs Sex: Male : 1985 Arrival Date: 04/04/2024 Time: 13:12 Bed IW2 Private MD: ED Physician Baldemar Harden HPI: 04/04 13:39 This 39 yrs old Black Male presents to ER via Unassigned with complaints of Foot Pain - kb left. 13:39 Pt is a 39 year old male who presents for left foot pain. STates it feels exactly the kb same as previous gout flare-ups. States the only thing that works for him is a steroid shot. Reports he ate ham on giving and believes that is the cause. 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 Historical: - Allergies: 14:29 Nitroglycerin; ss - PMHx: 14:29 Congestive heart failure; Gout; Hypertensive disorder; ss - PSHx: 14:29 R femur; ss - Immunization history:: Adult Immunizations up to date. - Infectious Disease History:: Denies. - Social history:: Smoking status: Patient denies any tobacco usage or history of. ROS: 13:39 Constitutional: As per HPI kb Exam: 13:39 Constitutional: This is a well developed, well nourished patient who is awake, alert, kb and in no acute distress. Head/Face: Normocephalic, atraumatic. ENT: Moist Mucous membranes Cardiovascular: Regular rate Respiratory: Respirations even and unlabored. No increased work of breathing. Talking in full sentences Skin: Warm, dry with normal turgor. Normal color. Neuro: Awake and alert, GCS 15, oriented to person, place, time, and situation. Vital Signs: 14:28 BP 170 / 116; Pulse 94; Resp 16; Temp 97.5(O); Pulse Ox 100% on R/A; Weight 99.79 kg; ss Height 6 ft. 0 in. ; Pain 9/10; 14:28 Body Mass Index 29.84 (99.79 kg, 182.88 cm) ss 14:28 Pain Scale: Adult ss MDM: 13:19 Medical Screening Exam initiated kb 13:41 Differential diagnosis: gout, sprain. Data reviewed: vital signs, nurses notes. Test kb considered but Not performed: X-ray: xray considered but pt had no injury and pain is the same as previous gout flareups. Counseling: I had a detailed discussion with the patient and/or guardian regarding the historical points, exam findings, and any diagnostic results supporting the discharge/admit diagnosis, the need for outpatient follow up, a family practitioner, to return to the emergency department if symptoms worsen or persist or if there are any questions or concerns that arise at home. Administered Medications: 14:35 Drug: Dexamethasone IM 10 mg IM once Route: IM; Site: left deltoid; ss 14:35 Follow up: Response: No adverse reaction; RASS: Alert and Calm (0) ss 14:35 Drug: [place] PO 10 mg-325 mg 1 tabs PO once Route: PO; ss 14:35 Follow up: Response: Medication Administered at Departure; RASS: Alert and Calm (0) ss Disposition Summary: 04/04/24 13:43 Discharge Ordered Notes: Location: Home kb Condition: Stable kb Diagnosis - Idiopathic gout, left ankle and foot kb Followup: kb - With: Emergency Department - When: As needed - Reason: Worsening of condition Followup: kb - With: Private Physician - When: 2 - 3 days - Reason: Recheck today's complaints, Continuance of care, Re-evaluation by your physician Discharge Instructions: - Discharge Summary Sheet kb - Gout, Wfgi-ri-Sock kb Forms: - Medication Reconciliation Form kb - Antibiotic Education kb - Prescription Opioid Use kb - Patient Portal Instructions kb - Leadership Thank You Letter kb Signatures: Kristel Carballo FNP-C FNP-Anny Medrano, RN RN ss Corrections: (The following items were deleted from the chart) 13:44 13:39 Pt is a 39 year old male who presents for left foot pain. STates it feels exactly kb the same as previous gout flare-ups. States the only thing that works for him is a steroid shot. 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 kb
[2024-04-04] MEDS ORDERED: dexAMETHasone 10 MG/ML VIAL ONE (14:10)
[2024-04-04] MEDS ORDERED: HYDROCODONE/APAP 10/325 TAB ONE (14:10)
--- NOTE | 2024-04-04 14:36 | ER ---
Nurse's Notes [facility] Name: Ezequiel Padron Age: 39 yrs Sex: Male : 1985 Arrival Date: 04/04/2024 Time: 13:12 Bed IW2 Private MD: Diagnosis: Idiopathic gout, left ankle and foot Presentation: 04/04 14:28 Chief complaint: Patient states: L foot pain that began last night. Coronavirus screen: ss Client denies travel out of the [place] in the last 14 days. Ebola Screen: Patient denies exposure to infectious person. Patient denies travel to an Ebola-affected area in the 21 days before illness onset. Initial Sepsis Screen: Does the patient meet any 2 criteria? No. Patient's initial sepsis screen is negative. Does the patient have a suspected source of infection? No. Patient's initial sepsis screen is negative. Risk Assessment: Do you want to hurt yourself or someone else? Patient reports no desire to harm self or others. Onset of symptoms was April 03, 2024. 14:28 Method Of Arrival: Ambulatory ss 14:28 Acuity: HERMELINDA 4 ss Historical: - Allergies: 14:29 Nitroglycerin; ss - PMHx: 14:29 Congestive heart failure; Gout; Hypertensive disorder; ss - PSHx: 14:29 R femur; ss - Immunization history:: Adult Immunizations up to date. - Infectious Disease History:: Denies. - Social history:: Smoking status: Patient denies any tobacco usage or history of. Vital Signs: 14:28 BP 170 / 116; Pulse 94; Resp 16; Temp 97.5(O); Pulse Ox 100% on R/A; Weight 99.79 kg; ss Height 6 ft. 0 in. ; Pain 9/10; 14:28 Body Mass Index 29.84 (99.79 kg, 182.88 cm) ss 14:28 Pain Scale: Adult ss ED Course: 13:14 Patient arrived in ED. im 13:19 Kristel Carballo FNP-C is PHCP. kb 13:19 Baldemar Harden MD is Attending Physician. kb 14:29 Triage completed. ss 14:29 Arm band placed on left wrist. ss 14:35 No provider procedures requiring assistance completed. Patient did not have IV access ss during this emergency room visit. Administered Medications: 14:35 Drug: Dexamethasone IM 10 mg IM once Route: IM; Site: left deltoid; 14:35 Follow up: Response: No adverse reaction; RASS: Alert and Calm (0) ss 14:35 Drug: [place] PO 10 mg-325 mg 1 tabs PO once Route: PO; ss 14:35 Follow up: Response: Medication Administered at Departure; RASS: Alert and Calm (0) Outcome: 13:43 Discharge ordered by MD. willard 14:35 Discharged to home ambulatory, 14:35 Condition: good 14:35 Discharge instructions given to patient, Instructed on discharge instructions, follow up and referral plans. Demonstrated understanding of instructions, follow-up care, 14:36 Patient left the ED. Signatures: Kristel Carballo, MARKETING PLANNER-C MARKETING PLANNER-Anny Medrano, RN RN Rosario Fontanez
[2024-04-04 14:53] VITALS: BP 170/116; TEMP 97.5; O2SAT 100
== END 2024-04-04 14:36 | disposition home or self-care (01) ==
LOC: ER 13:12
DX: M10.072 Idiopathic gout, left ankle and foot (principal)
CPT/HCPCS: 96372; 99284; J1100

== ENCOUNTER 2024-04-18 10:41 | Emergency (ER) | payer OTHER ==
--- OUTSIDE RECORDS SUMMARY | 2024-04-18 10:46 | XMS REPORT | Continuity of Care Document ---
Author Name Unknown Address [address] [facility] [address] [place] [address] [facility] thconnect Address [address] [facility] [address] [place] [address] Care Team Providers Care Porter Sample Case Name Role Phone Cristy FREDERICK, Marshall Dean Primary Care Physician Cipriano FREDERICK, Basim Sanz Attending Clinician + Tameka NOVOA Attending Clinician Unavailable Tameka Garcia Attending Clinician [phone] Doctor Unassigned, Sidney Attending Clinician U jose e Neumann RN, Sherrell Attending Clinician Unavailable DIMITRIOS ABEL Attending Clinician UnavailDimitrios Kearney MD Attending Clinician [phone] DIMITRIOS ABEL Admitting Clinician Dimitrios Kasper MD Admitting Clinician [phone] Payers Payer Name Policy Type Policy Number Effective Date Expirati on Date Source Problems Condition Name Condition Details Condition Category Status Onset Date Resolution Date Last Treatment Date Treating Clinician Comments Source SOB (shortness of breath) SOB (shortness of breath) Disease Active - 00:00: 00 [facility] Obesity (BMI 30-39.9) Obesity (BMI 30-39.9) Disease Active 11-23 00:00: 00 [facility] Allergies, Adverse Reactions, Alerts Allergy Name Allergy Type Status Severity Reaction(s) Onset Date Inactive Date Treating Clinician Comments Source MORPHINE DRUG INGREDI Active Unknown-Cmnt 12-06 00:00: 00 [facility] Morphine Propensi ty to adverse reaction s Active Unknown - See comments 12-06 00:00: 00 Patient does not know reaction [facility] NO KNOWN ALLERGIE S Drug Class Active [facility] Social History Social Habit Start Date Stop Date Quantity Comments Source History SDOH Alcohol Std Drinks [facility] History SDOH Alcohol Binge [facility] History SDOH Alcohol Frequency [facility] Exposure to SARS-CoV-2 (event) 2021-11-26 00:00:00 2021-12-06 12:55:00 Not sure [facility] Alcohol intake 2021-12-06 00:00:00 2021-12-06 00:00:00 Current drinker of alcohol (finding) [facility] Alcohol Comment 2016-11-22 00:00:00 2016-11-22 00:00:00 Daily [facility] Tobacco use and exposure 2016-11-22 00:00:00 2016-11-22 00:00:00 Smokeless tobacco non-user [facility] Sex Assigned At 1985 00:00:00 1985 00:00:00 [facility] Smoking Status Start Date Stop Date Source Never smoked tobacco [facility] Medications Ordered Medication Name Filled Medication Name Start Date Stop Date Current Medication? Ordering Clinician Indication Dosage Frequency Signature (SIG) Comments Components Source lisinopriL (PRINIVIL,Z ESTRIL) tablet 20 mg 12-07 14:00: 00 Yes 20mg 20 mg, Oral, DAILY, First dose on Sat12/07/21 at 0900, Until Discontinu ed, Routine [facility] HYDROcodone -acetaminop hen (NORCO) 10-325 mg tablet 1 tablet 12-06 17:15: 00 12-06 16:12 :00 No 1{tbl} 1 tablet, Oral, ONCE, 1 dose, On Sat12/06/21 at 1215, Routine [facility] carvediloL (COREG) tablet 25 mg 12-06 17:15: 00 12-06 16:12 :00 No 25mg 25 mg, Oral, ONCE, 1 dose, On Sat12/06/21 at 1215, Routine [facility] methylpredn isolone sod succ (SOLU-MEDRO L) injection 125 mg 12-06 16:45: 00 12-06 16:09 :00 No 125mg 125 mg, Intramuscu lar, ONCE, 1 dose, On Sat12/06/21 at 1145, REGINA [facility] acetaminoph en-codeine 300-30 mg tablet 12-06 00:00: 00 Yes [id number] 1{tbl} Take 1 tablet by mouth every 4 (four) hours as needed for Pain (scale 4-6). Indication s: acute pain [facility] predniSONE 20 mg tablet 12-06 00:00: 00 Yes [id number] 1 PO BID x 4 days [facility] aspirin 81 mg chewable tablet 09-14 00:00: 00 Yes [id number] 81mg Take 1 tablet by mouth daily. [facility] atorvastati n 40 mg tablet 09-14 00:00: 00 Yes [id number] 40mg Take 1 tablet by mouth at bedtime. [facility] carvediloL 25 mg tablet 09-14 00:00: 00 Yes [id number] 37.5mg Take 1.5 tablets by mouth 2 (two) times daily with meals. [facility] furosemide 40 mg tablet 09-14 00:00: 00 Yes [id number] 40mg Take 1 tablet by mouth every morning and evening. [facility] lisinopriL 10 mg tablet 09-14 00:00: 00 Yes [id number] 30mg Take 3 tablets by mouth daily. [facility] spironolact one 25 mg tablet 09-14 00:00: 00 Yes [id number] 25mg Take 1 tablet by mouth daily. [facility] aspirin 81 mg chewable tablet 08-22 00:00: 00 09-14 00:00 :00 No [id number] 81mg Take 1 tablet by mouth daily for 180 days. [facility] lisinopriL 10 mg tablet 08-22 00:00: 00 09-14 00:00 :00 No [id number] 30mg Take 3 tablets by mouth daily for 180 days. [facility] spironolact one 25 mg tablet 08-22 00:00: 00 09-14 00:00 :00 No [id number] 25mg Take 1 tablet by mouth daily for 180 days. [facility] carvediloL (COREG) tablet 37.5 mg 08-21 22:00: 00 Yes 37.5mg 37.5 mg, Oral, BID MEALS, First dose (after last modificati on) on Sat08/21/21 at 1700, Until Discontinu ed, Routine [facility] lisinopriL (PRINIVIL,Z ESTRIL) tablet 30 mg 08-21 14:00: 00 Yes 30mg 30 mg, Oral, DAILY, First dose (after last modificati on) on Sat08/21/21 at 0900, Until Discontinu ed, Routine [facility] magnesium oxide (MAG-OX 400) tablet 400 mg 08-21 13:45: 00 08-21 13:20 :00 No 400mg 400 mg, Oral, ONCE, 1 dose, On Sat08/21/21 at 0845, Routine [facility] amLODIPine 10 mg tablet 08-21 11:33: 41 08-21 00:00 :00 No 10mg Take 10 mg by mouth daily. [facility] hydroCHLORO thiazide 25 mg tablet 08-21 11:33: 41 08-21 00:00 :00 No 25mg Take 25 mg by mouth daily. [facility] ibuprofen 800 mg tablet 08-21 11:33: 41 08-21 00:00 :00 No 800mg Take 800 mg by mouth 2 (two) times daily. [facility] hydrALAZINE (APRESOLINE ) tablet 10 mg 08-21 07:00: 00 08-21 06:05 :00 No 10mg 10 mg, Oral, ONCE, 1 dose, On 08/21/21 at 0200, Routine [facility] atorvastati n 40 mg tablet 08-21 00:00: 00 09-14 00:00 :00 No [id number] 40mg Take 1 tablet by mouth at bedtime for 180 days. [facility] furosemide 40 mg tablet 08-21 00:00: 00 09-14 00:00 :00 No [id number] 40mg Take 1 tablet by mouth every morning and evening for 180 days. [facility] carvediloL 25 mg tablet 08-21 00:00: 00 09-14 00:00 :00 No [id number] 37.5mg Take 1.5 tablets by mouth 2 (two) times daily with meals for 180 days. [facility] carvediloL 25 mg tablet 08-21 00:00: 00 08-21 00:00 :00 No [id number] 25mg Take 1 tablet by mouth 2 (two) times daily with meals for 180 days. [facility] furosemide (LASIX) tablet 40 mg 08-20 14:00: 00 Yes 40mg 40 mg, Oral, QAM+PM, First dose (after last modificati on) on 08/20/21 at 0900, Until Discontinu ed, Routine [facility] lisinopriL (PRINIVIL,Z ESTRIL) tablet 20 mg 08-20 14:00: 00 08-21 11:42 :47 No 20mg 20 mg, Oral, DAILY, First dose (after last modificati on) on 08/20/21 at 0900, Until Discontinu ed, Routine [facility] carvediloL (COREG) tablet 25 mg 08-20 13:00: 00 08-21 17:46 :56 No 25mg 25 mg, Oral, BID MEALS, First dose (after last modificati on) on 08/20/21 at 0800, Until Discontinu ed, Routine [facility] lisinopriL (PRINIVIL,Z ESTRIL) tablet 5 mg 08-19 15:00: 00 08-19 14:30 :00 No 5mg 5 mg, Oral, ONCE, 1 dose, On 08/19/21 at 1000, Routine [facility] carvediloL (COREG) tablet 12.5 mg 08-19 13:00: 00 08-19 22:39 :41 No 12.5mg 12.5 mg, Oral, BID MEALS, First dose (after last modificati on) on 08/19/21 at 0800, Until Discontinu ed, Routine [facility] furosemide (LASIX) injection 40 mg 08-19 01:00: 00 08-19 17:31 :11 No 40mg 40 mg, Slow IV Push, Q12H, First dose on Sat08/18/21 at 2000, Until Discontinu ed, Routine [facility] hydrALAZINE (APRESOLINE ) tablet 25 mg 08-18 21:47: 07 Yes 25mg 25 mg, Oral, Q6HPRN, Starting on Sat08/18/21 at 1647, Until Discontinu ed, Routine, SBP >180 [facility] lisinopriL (PRINIVIL,Z ESTRIL) tablet 10 mg 08-18 18:15: 00 08-18 18:14 :00 No 10mg 10 mg, Oral, DAILY, 1 dose, First dose on Sat08/18/21 at 1315, Routine [facility] lisinopriL (PRINIVIL,Z ESTRIL) tablet 10 mg 08-18 16:00: 00 08-19 13:47 :35 No 10mg 10 mg, Oral, DAILY, First dose on Sat08/18/21 at 1100, Until Discontinu ed, Routine [facility] spironolact one (ALDACTONE) tablet 25 mg 08-18 14:00: 00 Yes 25mg 25 mg, Oral, DAILY, First dose on Sat08/18/21 at 0900, Until Discontinu ed, Routine [facility] aspirin chewable tablet 81 mg 08-18 14:00: 00 Yes 81mg 81 mg, Oral, DAILY, First dose on Sat08/18/21 at 0900, Until Discontinu ed, Routine [facility] furosemide (LASIX) tablet 40 mg 08-18 14:00: 00 08-18 16:18 :32 No 40mg 40 mg, Oral, QAM+PM, First dose on Sat08/18/21 at 0900, Until Discontinu ed, Routine [facility] amLODIPine (NORVASC) tablet 10 mg 08-18 12:00: 00 08-18 11:05 :00 No 10mg 10 mg, Oral, ONCE, 1 dose, On Sat08/18/21 at 0700, Routine [facility] atorvastati n (LIPITOR) tablet 40 mg 08-18 02:00: 00 Yes 40mg 40 mg, Oral, QHS, First dose on Sat08/17/21 at 2100, Until Discontinu ed, Routine [facility] heparin (porcine) injection 5,000 Units 08-18 01:00: 00 Yes 5000U 5,000 Units, Subcutaneo us, Q12H, First dose on Sat08/17/21 at 2000, Until Discontinu ed, Routine [facility] hydrALAZINE (APRESOLINE ) tablet 10 mg 08-17 22:45: 00 08-17 23:51 :00 No 10mg 10 mg, Oral, ONCE, 1 dose, On Sat08/17/21 at 1745, Routine [facility] hydrALAZINE (APRESOLINE ) tablet 10 mg 08-17 21:45: 54 08-18 21:47 :24 No 10mg 10 mg, Oral, Q6HPRN, Starting on Sat08/17/21 at 1645, Until Sat08/18/21 at 1647, Routine, SBP >180 [facility] sulfur hexafluorid e microsphr (LUMASON) injection 5 mL 08-17 20:45: 00 08-17 20:45 :00 No [id number] 5mL 5 mL, Intravenou s, ONCE, 1 dose, On Sat08/17/21 at 1545, Routine
sociology faculty member approving Restricted medication : DEZ QIU [facility] magnesium sulfate in water 4 gram/50 mL (8 %) IV Piggyback 4 g 08-17 18:15: 00 08-17 18:29 :00 No 4g 4 g, IV Piggyback, ONCE, 1 dose, On Sat08/17/21 at 1315, Routine [facility] KCL (KLOR-CON M20) tablet 40 mEq 08-17 18:15: 00 08-17 18:10 :00 No 40meq 40 mEq, Oral, ONCE, 1 dose, On Sat08/17/21 at 1315, Routine [facility] furosemide (LASIX) injection 40 mg 08-17 17:15: 00 08-18 12:42 :25 No 40mg 40 mg, Slow IV Push, Q12H, First dose on Sat08/17/21 at 1215, Until Discontinu ed, Routine [facility] acetaminoph en (TYLENOL) tablet 650 mg 08-17 14:09: 58 Yes 650mg 650 mg, Oral, Q6HPRN, Starting on Sat08/17/21 at 0909, Until Discontinu ed, Routine, Pain (scale 1-3) [facility] amLODIPine 10 mg tablet 08-17 09:16: 15 Yes 10mg Take 10 mg by mouth daily. [facility] hydroCHLORO thiazide 25 mg tablet 08-17 09:16: 15 Yes 25mg Take 25 mg by mouth daily. [facility] ibuprofen 800 mg tablet 08-17 09:16: 15 Yes 800mg Take 800 mg by mouth 2 (two) times daily. [facility] Vital Signs Vital Name Observation Time Observation Value Comments S qi Systolic blood pressure 2021-12-06 17:40:07 158 mm[Hg] [facility] Diastolic blood pressure 2021-12-06 17:40:07 105 mm[Hg] [facility] Heart rate 2021-12-06 15:43:00 91 /[facility] Respiratory rate 2021-12-06 15:43:00 20 /min [facility] Oxygen saturation in Arterial blood by Pulse oximetry 2021-12-06 15:43:00 97 /min [facility] Body temperature 2021-12-06 14:49:00 36.61 Anastasiia [facility] Body height 2021-12-06 14:49:00 182.9 cm [facility] Body weight 2021-12-06 14:49:00 99.791 kg [facility] BMI 2021-12-06 14:49:00 29.84 kg/m2 [facility] Systolic blood pressure 2021-08-21 20:39:00 143 mm[Hg] [facility] Diastolic blood pressure 2021-08-21 20:39:00 104 mm[Hg] [facility] Heart rate 2021-08-21 20:39:00 79 /min [facility] Body temperature 2021-08-21 20:39:00 36 Anastasiia [facility] Respiratory rate 2021-08-21 20:39:00 18 /min [facility] Oxygen saturation in Arterial blood by Pulse oximetry 2021-08-21 20:39:00 99 /min [facility] Body weight 2021-08-21 10:57:00 104.055 kg [facility] BMI 2021-08-21 10:57:00 31.11 kg/m2 [facility] Body height 2021-08-18 10:31:00 182.9 cm [facility] Procedures Procedure Date / Time Performed Performing Clinician Source NOTICE OF PRIVACY PRACTICES 2021-12-06 14:38:21 Doctor Unassigned, Sidney [facility] CONSENT/REFUSAL FOR DIAGNOSIS AND TREATMENT 2021-12-06 14:38:03 Doctor Unassigned, Sidney [facility] AUTHORIZATION FOR RELEASE OF PHI 2021-09-01 05:01:00 Doctor Unassigned, Sidney [facility] MAGNESIUM 2021-08-21 08:42:00 Eryn Cow[facility] BASIC METABOLIC PANEL (NA, K, CL, CO2, GLUCOSE, BUN, CREATININE, CA) 2021-08-21 08:42[facility]-B[facility] 2021-08-21 08:42:00 Gaston [facility] HB ECG ROUTINE & RHYTHM STRIP 2021-08-20 13:02:55 [facility] 2021-08-20 09:22:00 Acna [facility] BASIC METABOLIC PANEL (NA, K, CL, CO2, GLUCOSE, BUN, CREATININE, CA) 2021-08-20 09:22:[address] [facility] CBC WITH DIFF 2021-08-20 09:22:00 [facility] RHYTHM STRIP 2021-08-19 13:08:08 [facility] 2021-08-19 10:21:00 Gaston [facility] BASIC METABOLIC PANEL (NA, K, CL, CO2, GLUCOSE, BUN, CREATININE, CA) 2021-08-19 10:21:00 [facility] (NA, K, CL, CO2, GLUCOSE, BUN, CREATININE, CA) 2021-08-18 19:41:00 [facility] & RHYTHM STRIP 2021-08-18 14:50:24 [facility] 2021-08-18 09:10:00 Eryn Cowart [facility] BASIC METABOLIC PANEL (NA, K, CL, CO2, GLUCOSE, BUN, CREATININE, CA) 2021-08-18 09:10:00 [facility] 2021-08-18 09:10[facility]00 [facility] 2021-08-17 23:58:00 Supa [facility] TRANSTHORACIC ECHO (TTE) COMPLETE W/ CONTRAST 2021-08-17 18:53:00 Supa [facility] PHOSPHORUS 2021-08-17 15:43:00 Supa [facility] MAGNESIUM 2021-08-17 15:43:00 Supa [facility] FERRITIN SERUM 2021-08-17 15:43:00 Eryn Cowart [facility] TROPONIN I 2021-08-17 15:43:00 Supa [facility] THYROID STIMULATING HORMONE 2021-08-17 15:43:00 Supa [facility] HEPATIC FUNCTION PANEL (35772) (ALB,T.PRO,BILI T,BU/BC,ALT,AST,ALK PHOS) 2021-08-17 15:43:00 Supa [facility] BASIC METABOLIC PANEL (NA, K, CL, CO2, GLUCOSE, BUN, CREATININE, CA) 2021-08-17 15:43:00 Supa [facility] IRON PANEL 2021-08-17 15:43:00 Supa [facility] CBC WITH DIFF 2021-08-17 15:43:00 Supa [facility] GLYCOSYLATED HEMOGLOBIN (A1C) 2021-08-17 15:43:00 Supa [facility] N-TERMINAL PRO-BNP 2021-08-17 15:43:00 Supa [facility] XR CHEST 1 VW 2021-08-17 15:10:00 Supa [facility] Encounters Start Date/Time End Date/Time Encounter Type Admission Type Attending [facility] Care Department Encounter ID Source 2024-03-30 10:06:11 2024-03-30 10:06:11 Outpatient [facility] [id number] 2022-08-17 00:00:2022-08-17 00:00:00 Refill Taimonie [facility] [id number] 350.1.13.10 4.2.7.2.686 [id number] [facility] 2021-12-06 09:51:00 2021-12-06 13:09:00 Emergency X BRIGHT, Tameka [facility] ERT [id number] [facility] 2021-12-06 09:51:00 2021-12-06 13:09:00 Emergency BrightTameka velezge [facility] 1.2840.114 350.1.13.10 4.2.7.2.686 [id number] [facility] 2021-12-06 00:00:00 2021-12-06 00:00:00 Orders Only Doctor Unassigned, Sidney [facility] 1.2840.114 350.1.13.10 4.2.7.2.686 [id number] [facility] 2021-09-14 00:00:00 2021-09-14 00:00:00 Telephone Ciarageraldmonie [facility] [id number] 350.1.13.10 4.2.7.2.686 [id number] [facility] 2021-09-12 00:00:00 2021-09-12 00:00:00 [facility] 1.2840.114 350.1.13.10 4.2.7.2.686 [id number] [facility] 2021-09-01 00:00:00 2021-09-01 00:00:00 Orders Only Doctor Unassigned, Sidney [facility] 1.2840.114 350.1.13.10 4.2.7.2.686 [id number] [facility] 2021-09-01 00:00:00 2021-09-01 00:00:00 [facility] [id number] 350.1.13.10 4.2.7.2.686 [id number] [facility] 2021-08-30 00:00:00 2021-08-30 00:00:00 Telephone [facility] [id number] 350.1.13.10 4.2.7.2.686 [id number] [facility] 2021-08-22 00:00:00 2021-08-22 00:00:00 Transition of Care Sherrell Neumann [facility] [id number] 350.1.13.10 4.2.7.2.686 [id number] [facility] 2021-08-17 08:35:00 2021-08-21 17:42:00 Inpatient U DIMITRIOS ABEL [facility] [id number] [facility] 2021-08-17 08:35:00 2021-08-21 17:42:00 Hospital Encounter Cipriano Denisdarlene MainahDimitrios Douglass [facility] 1.2840.114 350.1.13.10 4.2.7.2.686 [id number] [facility] 2021-08-18 00:00:00 2021-08-18 00:00:00 Telephone Dimitrios Abel [facility] [id number] 350.1.13.10 4.2.7.2.686 [id number] [facility] Results Test Description Test Time Test Comments Results Result Co mments Source [facility] (NA, K, CL, CO2, GLUCOSE, BUN, CREATININE, CA)2021-08-21 10:07:34* Test Item Value Reference Range Interpretation Comme nts NA (test code = 2832437223) 135 mmol/L 135-145 K (test code = 4575857579) 4.4 mmol/L 3.5-5.0 CL (test code = 1286821675) 102 mmol/L 98-108 CO2 TOTAL (test code = 1216310032) 26 mmol/L 23-31 AGAP (test code = 6357540407) 2-16 BUN (test code = 2097676350) 27 mg/dL 7-23 H GLUCOSE (test code = 7196780238) 104 mg/dL 70-110 CREATININE (test code = 3055955004) 1.49 mg/dL 0.60-1.25 H CALCIUM (test code = 5213324401) 9.0 mg/dL 8.6-10.6 eGFR (test code = 0559912539) mL/min/1.73m2 EBEN (test code = EBEN) Association [...] imaging tests). Lab Interpretation (test code = 21456-3) Abnormal [facility] 10:07:34* Test Item Value Reference Range Interpretation Comme nts MAGNESIUM (test code = 4030266128) 1.9 mg/dL 1.7-2.4 Lab Interpretation (test cod e = 49337-6) Normal [facility] (NA, K, CL, CO2, GLUCOSE, BUN, CREATININE, CA)2021-08-20 10:22:59* Test Item Value Reference Range Interpretation Comme nts NA (test code = 2264799311) 137 mmol/L 135-145 K (test code = 4829475677) 4.4 mmol/L 3.5-5.0 CL (test code = 2377347821) 102 mmol/L 98-108 CO2 TOTAL (test code = 7183016400) 26 mmol/L 23-31 AGAP (test code = 9648577621) 2-16 BUN (test code = 9534193143) 31 mg/dL 7-23 H GLUCOSE (test code = 2246216697) 119 mg/dL 70-110 H CREATININE (test code = 9936054421) 1.56 mg/dL 0.60-1.25 H CALCIUM (test code = 5817054267) 9.1 mg/dL 8.6-10.6 eGFR (test code = 8514086481) mL/min/1.73m2 EBEN (test code = EBEN) Association [...] imaging tests). Lab Interpretation (test code = 86548-2) Abnormal [facility] 10:22:59* Test Item Value Reference Range Interpretation Comme nts MAGNESIUM (test code = 5534687223) 2.1 mg/dL 1.7-2.4 Lab Interpretation (test cod e = 40182-7) Normal [facility] WITH [id number] 09:42:15* Test Item Value Reference Range Interpretation Comme nts WBC (test code = 6690-2) See_Comment H [[employer]] The system which generated this result transmitted reference range: 4.20 - 10.70 10*3/?L. The reference range was not used to interpret this result as normal/abnormal. RBC (test code = 789-8) See_Comment [[employer]] The system which generated this result transmitted [...] 32.8 g/dL 31.2-35.0 RDW-SD (test code = 48864-2) 39.3 fL 38.5-51.6 RDW-CV (test code = 788-0) 12.5 % 12.1-15.4 PLT (test code = 777-3) See_Comment H [Automated [employer]] The system which generated this result transmitted reference range: 150 - 328 10*3/?L. The reference range was not used to interpret this result as normal/abnormal. MPV (test code = 54240-5) 9.3 fL 9.8-13.0 L NRBC/100 WBC (test code = 2161299758) See_Comment [Automated [employer]] The system which generated this result transmitted reference range: 0.0 - 10.0 /100 WBCs. The reference range was not used to interpret this result as normal/abnormal. NRBC x10^3 (test code = 8476449082) <0.01 See_Comment [Automated [employer]] The system which generated this result transmitted reference range: 10*3/?L. The reference range was not used to interpret this result as normal/abnormal. GRAN MAT (NEUT) % (test code = 770-8) 60.5 % IMM GRAN % (test code = 0923111340) 0.30 % LYMPH % (test code = 736-9) 26.7 % MONO % (test code = 5905-5) 8.3 % EOS % (test code = 713-8) 3.4 % BASO % (test code = 706-2) 0.8 % GRAN MAT x10^3(ANC) (test code = 3746586398) 7.17 10*3/uL 1.99-6.95 H IMM GRAN x10^3 (test code = 1069817134) 0.03 10*3/uL 0.00-0.06 LYMPH x10^3 (test code = 731-0) 3.16 10*3/uL 1.09-3.23 MONO x10^3 (test code = 742-7) 0.98 10*3/uL 0.36-1.02 EOS x10^3 (test code = 711-2) 0.40 10*3/uL 0.06-0.53 BASO x10^3 (test code = 704-7) 0.10 10*3/uL 0.01-0.09 H Lab Interpretation (test code = 37597-5) Abnormal [facility] (NA, K, CL, CO2, GLUCOSE, BUN, CREATININE, CA)2021-08-19 10:52:12* Test Item Value Reference Range Interpretation Comme nts NA (test code = 1745120117) 136 mmol/L 135-145 K (test code = 6850412300) 3.8 mmol/L 3.5-5.0 CL (test code = 9845648889) 100 mmol/L 98-108 CO2 TOTAL (test code = 7431478352) 29 mmol/L 23-31 AGAP (test code = 1440801556) 2-16 BUN (test code = 4555348513) 32 mg/dL 7-23 H GLUCOSE (test code = 0679118012) 115 mg/dL 70-110 H CREATININE (test code = 9088961237) 1.67 mg/dL 0.60-1.25 H CALCIUM (test code = 4180781885) 9.1 mg/dL 8.6-10.6 eGFR (test code = 0011235583) mL/min/1.73m2 EBEN (test code = EBEN) Association [...] imaging tests). Lab Interpretation (test code = 12142-3) [facility]normal [facility] 10:52:12* Test Item Value Reference Range Interpretation Comme nts MAGNESIUM (test code = 9845984025) 1.9 mg/dL 1.7-2.4 Lab Interpretation (test cod e = 48038-2) Normal [facility] (NA, K, CL, CO2, GLUCOSE, BUN, CREATININE, CA)2021-08-18 21:19:06* Test Item Value Reference Range Interpretation Comme nts NA (test code = 3935240388) 135 mmol/L 135-145 K (test code = 1816244782) 3.9 mmol/L 3.5-5.0 CL (test code = 2820436156) 98 mmol/L 98-108 CO2 TOTAL (test code = 6648396044) 30 mmol/L 23-31 AGAP (test code = 2472100458) 2-16 BUN (test code = 2673815439) 29 mg/dL 7-23 H GLUCOSE (test code = 5004263490) 121 mg/dL 70-110 H CREATININE (test code = 8387090567) 1.58 mg/dL 0.60-1.25 H CALCIUM (test code = 7535974993) 8.9 mg/dL 8.6-10.6 eGFR (test code = 3619070936) mL/min/1.73m2 EBEN (test code = EBEN) Association [...] imaging tests). Lab Interpretation (test code = 74516-7) Abnormal [facility] METABOLIC PANEL (NA, K, CL, CO2, GLUCOSE, BUN, CREATININE, CA)2021-08-18 10:04:44* Test Item Value Reference Range Interpretation Comme nts NA (test code = 7554428130) 135 mmol/L 135-145 K (test code = 6015183539) 4.0 mmol/L 3.5-5.0 Slight hemolysis CL (test code = 8721735419) 101 mmol/L 98-108 CO2 TOTAL (test code = 8682104576) 29 mmol/L 23-31 AGAP (test code = 4365650505) 2-16 BUN (test code = 5566271632) 32 mg/dL 7-23 H Slight hemolysis GLUCOSE (test code = 9855431821) 114 mg/dL 70-110 H CREATININE (test code = 5259455044) 1.54 mg/dL 0.60-1.25 H CALCIUM (test code = 5795729927) 8.8 mg/dL 8.6-10.6 eGFR (test code = 1151851768) mL/min/1.73m2 EBEN (test code = EBEN) Association [...] imaging tests). Lab Interpretation (test code = 38347-5) [facility] 10:04:44* Test Item Value Reference Range Interpretation Comme nts MAGNESIUM (test code = 3325489394) 2.2 mg/dL 1.7-2.4 Lab Interpretation (test cod e = 37685-6) Normal [facility] WITH [id number] 09:24:38* Test Item Value Reference Range Interpretation Comme nts WBC (test code = 6690-2) See_Comment [Automated [employer]] The system which generated this result transmitted reference range: 4.20 - 10.70 10*3/?L. The reference range was not used to interpret this result as normal/abnormal. RBC (test code = 789-8) See_Comment [Automated [employer]] The system which generated this result transmitted [...] 33.3 g/dL 31.2-35.0 RDW-SD (test code = 67019-1) 39.1 fL 38.5-51.6 RDW-CV (test code = 788-0) 12.6 % 12.1-15.4 PLT (test code = 777-3) See_Comment H [Automated messa ge] The system which generated this result transmitted reference range: 150 - 328 10*3/?L. The reference range was not used to interpret this result as normal/abnormal. MPV (test code = 75153-3) 9.5 fL 9.8-13.0 L NRBC/100 WBC (test code = 2054664832) See_Comment [Automated [employer] ssage] The system which generated this result transmitted reference range: 0.0 - 10.0 /100 WBCs. The reference range was not used to interpret this result as normal/abnormal. NRBC x10^3 (test code = 6958395794) <0.01 See_Comment [Automated messa ge] The system which generated this result transmitted reference range: 10*3/?L. The reference range was not used to interpret this result as normal/abnormal. GRAN MAT (NEUT) % (test code = 770-8) 65.3 % IMM GRAN % (test code = 4130943723) 0.20 % LYMPH % (test code = 736-9) 23.3 % MONO % (test code = 5905-5) 7.0 % EOS % (test code = 713-8) 3.5 % BASO % (test code = 706-2) 0.7 % GRAN MAT x10^3(ANC) (test code = 3980236782) 6.63 10*3/uL 1.99-6.95 IMM GRAN x10^3 (test code = 1607820786) <0.03 0.00-0.06 LYMPH x10^3 (test code = 731-0) 2.36 10*3/uL 1.09-3.23 MONO x10^3 (test code = 742-7) 0.71 10*3/uL 0.36-1.02 EOS x10^3 (test code = 711-2) 0.35 10*3/uL 0.06-0.53 BASO x10^3 (test code = 704-7) 0.07 10*3/uL 0.01-0.09 Lab Interpretation (test code = 38038-4) [facility] (A1C)2021-08-18 02:37:07* Test Item Value Reference Range Interpretation Comme nts HGB A1C (test code = 4548-4) 5.8 % 4.0-5.7 H EBEN (test code = EBEN) Reference RangesNormal: <5.7%Prediabetes: 5.7 - 6.4%Diabetes: > 6.5% Lab Interpretation (test code = 24786-3) Abnormal [facility] [id number] 01:03:37* Test Item Value Reference Range Interpretation Comments TROPONIN I (test code = 8180398686) 0.101 ng/mL See_Comment H [Automated message] The [...] of biotin. Lab Interpretation (test code = 35392-8) Abnormal [facility]an[facility] (TTE)2021-08-17 22:14:20* Test Item Value Reference Range Interpretation Comme nts Ao root annulus (test code = 5233720595) 3.3 cm Ao root diam (test code = 2060034549) 3.30 cm Aortic root (test code = 0787542620) 3.3 cm LA size (test code = 0165834864) 3.7 cm LVOT diameter (test code = 5957586197) 2.00 cm LVIDD (test code = 1774963329) 5.90 cm IVS (test code = 0429929096) 1.26 cm Interventricular Septum Diastolic Thickness by 2D (test code = 1128974) 1.26 cm LVPWD (test code = 3955294758) 1.19 cm PW (test code = 4938150648) 1.19 cm 0.6-1.1 EF(Teich) (test code = 5347712125) 46.60 % LVIDS (test code = 2873152821) 4.50 cm FS (test code = 9564438217) 24 % EF - 2D (test code = 73910880) 46.60 % LAV(MOD-sp4) (test code = 0489144215) 65.30 mL MV Peak E Narciso (test code = 1841839157) 126.4 cm/s E wave decelartion time (test code = 3565992585) 0.14 s MV Prop V (test code = 5584219796) 35.00 cm/s LVOT stroke volume (test code = 3357142365) 45.10 cm3 LVOT peak narciso (test code = 7840588611) 90.0 cm/s LVOT mn grad (test code = 8587492047) mmHg AV LVOT peak gradient (test code = 5658260687) mmHg LVOT peak VTI (test code = 3003086490) 14.4 cm LV V1 mean (test code = 7899679847) 63.00 cm/s Aortic valve mean velocity (test code = 6768472950) 76.8 cm/s Ao peak narciso (test code = 5273152460) 125.5 cm/s Ao VTI (test code = 4445588762) 17.0 cm AV area by cont VTI (test code = 7225510247) 2.6 cm2 AV area peak narciso (test code = 4366494728) 2.2 cm2 Ao max PG (test code = 7323432016) 6.30 mm[Hg] AV peak gradient (test code = 3535838679) mmHg AV valve area (test code = 6496806312) 2.60 cm2 AV mean gradient (test code = 6934824521) mmHg TR Peak Narciso (test code = 2760217238) 119.4 cm/s Triscuspid Valve Regurgitation Peak Gradient (test code = 4753632332) mmHg Tapse (test code = 5674783114) 1.95 cm LA volume (BP) (test code = 4134852735) 73.5 mL LAV(MOD-sp2) (test code = 7952498510) 74.00 mL LA Volume Index (BP) (test code = 4431212047) 32.5 mL/m2 LV Diastolic Volume (BP) (test code = 7144039170) 232.2 mL EF(MOD-bp) (test code = 0789672410) 33.10 % LV Systolic Volume (BP) (test code = 9835865346) 155.2 mL SV(MOD-bp) (test code = 4905754833) 76.90 mL EF (test code = 6597095499) 33 % Left Ventricular Stroke Volume by 2-D Biplane-MOD (test code = 6954242) 76.9 mL Radiology Study observation (narrative) (test code = 02941-1) EBEN (test code = EBEN) ?Left?Ventricle: Left [...] (104.3 kg) 2.3 sq meters 183/126 82 [facility] (54013[facility] (ALB,T.PRO,BILI T,BU/BC,ALT,AST,ALK PHOS)2021-08-17 17:59:20* Test Item Value Reference Range Interpretation Comme nts TOTAL BILI (test code = 1763555979) 0.4 mg/dL 0.1-1.1 BILI UNCON (test code = 1306641909) 0.4 mg/dL 0.1-1.1 BILI CONJ (test code = 2537222006) 0.0 mg/dL 0.0-0.3 T PROTEIN (test code = 6584818842) 6.4 g/dL 6.3-8.2 ALBUMIN (test code = 9464600984) 3.7 g/dL 3.5-5.0 ALK PHOS (test code = 5447033763) 64 U/L 34-122 ALTv (test code = 1742-6) 39 U/L 5-50 AST(SGOT) (test code = 1786440016) 30 U/L 13-40 Lab Interpretation (test cod e = 52799-5) Normal [facility]bergFERRITIN [id number] 17:21:19* Test Item Value Reference Range Interpretation Comme nts FERRITIN (test code = 0870910432) 29.7 ng/mL 18.0-464.0 EBEN (test code = EBEN) Biotin has been reported to cause a negative bias, interpret results relative to patient's use of biotin. Lab Interpretation (test code = 74533-3) Normal [facility]berg[facility]YROID STIMULATING [id number] 17:14:24 * Test Item Value Reference Range Interpretation Comme nts TSH (test code = 2675617800) See_Comment [Automated messa ge] The system which generated this result transmitted reference range: 0.45 - 4.70 mIU/L. The reference range was not used to interpret this result as normal/abnormal. Lab Interpretation (test code = 78535-8) Normal [facility]bergN-TERMINAL [id number] 16:55:55* Test Item Value Reference Range Interpretation Comme nts NT-proBNP (test code = 9203539753) 5070 pg/mL See_Comment H [Automated message] The system which generated this result transmitted reference range: <=125. The reference range was not used to interpret this result as normal/abnormal. EBEN (test code = EBEN) Biotin has been reported to cause a negative bias, interpret results relative to patient's use of biotin. Lab Interpretation (test code = 03601-4) Abnormal [facility]TR[facility] [id number] 16:55:55* Test Item Value Reference Range Interpretation Comments TROPONIN I (test code = 9127631983) 0.117 ng/mL See_Comment H [Automated message] The [...] of biotin. Lab Interpretation (test code = 56047-3) Abnormal [facility]bergIRON [id number] 16:52:53* Test Item Value Reference Range Interpretation Comme nts IRON (test code = 1885189516) 51 ug/dL 50-160 TIBC (test code = 7764418683) 298 ug/dL 250-410 % FE SAT (test code = 4489721660) 17 % 20-50 L Lab Interpretation (test cod e = 37956-5) Abnormal [facility]2022-04-14 16:41:35* Test Item Value Reference Range Interpretation Comme nts MAGNESIUM (test code = 9318144409) 1.6 mg/dL 1.7-2.4 L Lab Interpretation (test cod e = 71799-5) Abnormal [facility]PHOSPHORUS2022-04-14 16:41:35* Test Item Value Reference Range Interpretation Comme nts PHOSPHORUS (test code = 3915794421) 4.0 mg/dL 2.5-5.0 Lab Interpretation (test cod e = 78249-5) Normal [facility] METABOLIC PANEL (NA, K, CL, CO2, GLUCOSE, BUN, CREATININE, CA)2021-08-17 16:41:35* Test Item Value Reference Range Interpretation Comme nts NA (test code = 1672667709) 134 mmol/L 135-145 L K (test code = 2772954923) 3.6 mmol/L 3.5-5.0 CL (test code = 5690239659) 99 mmol/L 98-108 CO2 TOTAL (test code = 4751292131) 32 mmol/L 23-31 H AGAP (test code = 2346891684) 2-16 BUN (test code = 8278787493) 24 mg/dL 7-23 H GLUCOSE (test code = 7181013234) 111 mg/dL 70-110 H CREATININE (test code = 6709518535) 1.60 mg/dL 0.60-1.25 H CALCIUM (test code = 2707173373) 8.8 mg/dL 8.6-10.6 eGFR (test code = 9619581828) mL/min/1.73m2 EBEN (test code = EBEN) Association [...] imaging tests). Lab Interpretation (test code = 11498-4) Abnormal [facility] WITH [id number] 16:00:05* Test Item Value Reference Range Interpretation [...] 33.7 g/dL 31.2-35.0 RDW-SD (test code = 30119-3) 39.5 fL 38.5-51.6 RDW-CV (test code = 788-0) 12.6 % 12.1-15.4 PLT (test code = 777-3) See_Comment H [Automated messa ge] The system which generated this result transmitted reference range: 150 - 328 10*3/?L. The reference range was not used to interpret this result as normal/abnormal. MPV (test code = 22672-9) 9.4 fL 9.8-13.0 L NRBC/100 WBC (test code = 8185116830) See_Comment [Automated [employer] ssage] The system which generated this result transmitted reference range: 0.0 - 10.0 /100 WBCs. The reference range was not used to interpret this result as normal/abnormal. NRBC x10^3 (test code = 1633528863) <0.01 See_Comment [Automated messa ge] The system which generated this result transmitted reference range: 10*3/?L. The reference range was not used to interpret this result as normal/abnormal. GRAN MAT (NEUT) % (test code = 770-8) 65.6 % IMM GRAN % (test code = 5054458233) 0.20 % LYMPH % (test code = 736-9) 23.8 % MONO % (test code = 5905-5) 6.7 % EOS % (test code = 713-8) 3.2 % BASO % (test code = 706-2) 0.5 % GRAN MAT x10^3(ANC) (test code = 1798867680) 6.58 10*3/uL 1.99-6.95 IMM GRAN x10^3 (test code = 3884695048) <0.03 0.00-0.06 LYMPH x10^3 (test code = 731-0) 2.39 10*3/uL 1.09-3.23 MONO x10^3 (test code = 742-7) 0.67 10*3/uL 0.36-1.02 EOS x10^3 (test code = 711-2) 0.32 10*3/uL 0.06-0.53 BASO x10^3 (test code = 704-7) 0.05 10*3/uL 0.01-0.09 Lab Interpretation (test code = 55885-2) Abnormal [facility]"
[2024-04-18] MEDS ORDERED: HYDROCODONE/APAP 5/325 MG TAB ONE (12:15)
[2024-04-18] MEDS ORDERED: predniSONE 20 MG TAB ONE (12:15)
--- NOTE | 2024-04-18 12:15 | ER ---
Nurse's Notes [facility] Name: Ezequiel Padron Age: 39 yrs Sex: Male : 1985 Arrival Date: 04/18/2024 Time: 10:41 Bed 9 Private MD: Diagnosis: Gout, unspecified Presentation: 04/18 11:26 Chief complaint: Patient states: pain in both ankles, started this morning, has been iw wearing steel toe boots, has hx of gout. Coronavirus screen: At this time, the client does not indicate any symptoms associated with coronavirus-19. Ebola Screen: No symptoms or risks identified at this time. Initial Sepsis Screen: Does the patient meet any 2 criteria? No. Patient's initial sepsis screen is negative. Does the patient have a suspected source of infection? No. Patient's initial sepsis screen is negative. Risk Assessment: Do you want to hurt yourself or someone else? Patient reports no desire to harm self or others. Onset of symptoms was April 18, 2024. 11:26 Method Of Arrival: Ambulatory iw 11:26 Acuity: HERMELINDA 3 iw 11:31 Acuity: HERMELINDA 4 iw Historical: - Allergies: 11:27 Nitroglycerin; iw - PMHx: 11:27 Congestive heart failure; Gout; Hypertensive disorder; iw - PSHx: 11:27 R femur; iw - Immunization history:: Adult Immunizations up to date. - Infectious Disease History:: Denies. - Social history:: Smoking status: Patient denies any tobacco usage or history of. Screenin:33 [facility] ED Fall Risk Assessment (Adult) History of falling in the last 3 months, jb4 including since admission No falls in past 3 months (0 pts) Confusion or Disorientation No (0 pts) Intoxicated or Sedated No (0 pts) Impaired Gait No (0 pts) Mobility Assist Device Used No (0 pt) Altered Elimination No (0 pt) Score/Fall Risk Level 0 - 2 = Low Risk Oriented to surroundings, Maintained a safe environment. Abuse screen: Denies threats or abuse. Nutritional screening: No deficits noted. Tuberculosis screening: No symptoms or risk factors identified. Assessment: 12:33 General: Appears in no apparent distress. comfortable, Behavior is calm, cooperative, jb4 appropriate for age. Pain: Complains of pain in right foot and left foot. Neuro: Level of Consciousness is awake, alert, obeys commands, Oriented to person, place, time, situation. Cardiovascular: Patient's skin is warm and dry. Respiratory: Airway is patent Respiratory effort is even, unlabored, labored, Respiratory pattern is regular, symmetrical. Derm: Skin is intact, Skin is pink, warm \T\ dry. Musculoskeletal: Circulation, motion, and sensation intact. Range of motion: intact in all extremities. Vital Signs: 11:26 BP 178 / 110; Pulse 77; Resp 16; Temp 98.3; Pulse Ox 98% ; Weight 99.79 kg; Height 6 iw ft. 0 in. ; Pain 9/10; 11:26 Body Mass Index 29.84 (99.79 kg, 182.88 cm) iw 11:26 Pain Scale: Adult ED Course: 10:44 Patient arrived in ED. im 11:27 Triage completed. iw 11:27 Arm band placed on. iw 11:31 Maxine Cooper RN is Primary Nurse. iw 12:02 Ian Martinez MD is Attending Physician. bo1 12:33 Patient has correct armband on for positive identification. Bed in low position. Call jb4 light in reach. Side rails up X 1. Provided Education on: discharge instructions. 12:33 No provider procedures requiring assistance completed. Patient did not have IV access jb4 during this emergency room visit. Administered Medications: 12:22 Drug: HYDROcodone-acetaminophen PO 5 mg-325 mg 2 tabs PO once Route: PO; jb4 12:36 Follow up: Response: No adverse reaction jb4 12:22 Drug: predniSONE PO 40 mg PO once Route: PO; jb4 12:36 Follow up: Response: No adverse reaction jb4 Medication: 12:33 VIS not applicable for this client. jb4 Outcome: 12:14 Discharge ordered by . bo1 12:33 Discharged to home via wheelchair, with family, jb4 12:33 Condition: stable 12:33 Discharge instructions given to patient, Instructed on discharge instructions, follow up and referral plans. no drinking with medication, no driving heavy equipment, medication usage, Demonstrated understanding of instructions, follow-up care, medications, Prescriptions given X 4, 12:36 Patient left the ED. jb4 Signatures: Maxine Cooper RN RN Candelario Caraballo RN RN jb4 Rosario Fontanez Oei, Ian, MD MD bo1
--- NOTE | 2024-04-18 12:15 | EDPHYS ---
Physician Documentation [facility] Name: Ezequiel Padron Age: 39 yrs Sex: Male : 1985 Arrival Date: 04/18/2024 Time: 10:41 Bed 9 Private MD: ED Physician Ian Martinez HPI: 04/18 12:07 This 39 yrs old Black Male presents to ER via Ambulatory with complaints of Foot Pain - bo1 Both gout. 12:07 The complaints affect the left foot, right foot. Onset: The symptoms/episode bo1 began/occurred gradually, yesterday, Pt ran out of his colchicine and has had history of repeated gout attacks. Severity of symptoms: At their worst the symptoms were moderate. The patient has experienced similar episodes in the past, Today's sxs are both ankles and his left knee. Recently working a lot and when his meds ran out he knew that he was going to get an attack. Historical: - Allergies: 11:27 Nitroglycerin; iw - PMHx: 11:27 Congestive heart failure; Gout; Hypertensive disorder; iw - PSHx: 11:27 R femur; iw - Immunization history:: Adult Immunizations up to date. - Infectious Disease History:: Denies. - Social history:: Smoking status: Patient denies any tobacco usage or history of. ROS: 12:10 MS/extremity: Positive for pain, to the right/left ankles and left knee, bo1 12:10 Cardiovascular: Negative for chest pain, 12:10 Respiratory: Negative for cough, shortness of breath, 12:10 Skin: Negative for rash, 12:10 All other systems are negative, 12:17 Constitutional: Negative for fever, chills, and weight loss bo1 Exam: 12:11 Constitutional: This is a well developed, well nourished patient who is awake, alert, bo1 and in acute distress from the discomfort. 12:11 Cardiovascular: Exam negative for acute changes, Rate: normal, Rhythm: regular, 12:11 Respiratory: the patient does not display signs of respiratory distress, Respirations: normal, no acute changes, 12:11 Musculoskeletal/extremity: Extremities: grossly normal except: Left knee - minimal effusion; right and left ankles - minimal effusion, 12:11 Skin: Warm and dry, no rash. Vital Signs: 11:26 BP 178 / 110; Pulse 77; Resp 16; Temp 98.3; Pulse Ox 98% ; Weight 99.79 kg; Height 6 iw ft. 0 in. ; Pain 9/10; 11:26 Body Mass Index 29.84 (99.79 kg, 182.88 cm) iw 11:26 Pain Scale: Adult iw MDM: 12:02 Medical Screening Exam initiated bo1 12:12 Differential diagnosis: gout. Data reviewed: vital signs. ED course: Pt understands bo1 that his colchicine can be restarted after the acute exacerbation has subsided. Administered Medications: 12:22 Drug: HYDROcodone-acetaminophen PO 5 mg-325 mg 2 tabs PO once Route: PO; jb4 12:36 Follow up: Response: No adverse reaction jb4 12:22 Drug: predniSONE PO 40 mg PO once Route: PO; jb4 12:36 Follow up: Response: No adverse reaction jb4 Disposition Summary: 04/18/24 12:14 Discharge Ordered Notes: Location: Home bo1 Problem: chronic bo1 Symptoms: are unchanged bo1 Condition: Stable bo1 Diagnosis - Gout, unspecified bo1 Followup: bo1 - With: Private Physician - When: Upon discharge from the Emergency Department - Reason: Recheck today's complaints, Continuance of care Discharge Instructions: - Discharge Summary Sheet bo1 - Gout bo1 Forms: - Medication Reconciliation Form bo1 - Antibiotic Education bo1 - Prescription Opioid Use bo1 - Patient Portal Instructions bo1 - Leadership Thank You Letter bo1 Prescriptions: - colchicine 0.6 mg Oral capsule - take 1 capsule ORAL route 2 times per day; 60 capsule; Refills: 0, Product bo1 Selection Permitted - indomethacin 50 mg Oral capsule - take 1 capsule ORAL route 2 times per day administer with food or milk; 20 bo1 capsule; Refills: 0, Product Selection Permitted - Tramadol 50 mg Oral Tablet - take 1 tablet ORAL route every 8 hours as needed; 12 tablet; Refills: 0, bo1 Product Selection Permitted - Medrol ([place]) 4 mg Oral Tablets, Dose Pack - take 1 tablet ORAL route as directed - follow package instructions; 1 packet; bo1 Refills: 0, Product Selection Permitted Signatures: Maxine Cooper RN RN Candelario Pace RN RN jb4 Ian Martinez MD MD bo1
[2024-04-18 12:40] VITALS: BP 178/110; TEMP 98.3; O2SAT 98
== END 2024-04-18 12:36 | disposition home or self-care (01) ==
LOC: ER 10:41
DX: M10.9 Gout, unspecified (principal)
CPT/HCPCS: 99283; J7512

== ENCOUNTER 2024-04-19 22:48 | Emergency (ER) | payer OTHER ==
--- OUTSIDE RECORDS SUMMARY | 2024-04-19 22:51 | XMS REPORT | Continuity of Care Document ---
Author Name Unknown Address [address] [facility] [address] [place] [address] [facility] thconnect Address [address] [facility] [address] [place] [address] Care Team Providers Care Mobile Ui Designer Name Role Phone Cristy FREDERICK, Marshall Dean Primary Care Physician Cipriano FREDERICK, Basim Sanz Attending Clinician + Tameka NOVOA Attending Clinician Unavailable Tameka Garcia Attending Clinician [phone] Doctor Unassigned, [place] Attending Clinician U jose e Neumann RN, Sherrell Attending Clinician Unavailable DIMITRIOS ABEL Attending Clinician UnavailDimitrios Kearney MD Attending Clinician [phone] DIMITRIOS ABEL Admitting Clinician Dimitrios Kasper MD Admitting Clinician [phone] Payers Payer Name Policy Type Policy Number Effective Date Expirati on Date Source Problems Condition Name Condition Details Condition Category Status Onset Date Resolution Date Last Treatment Date Treating Clinician Comments Source SOB (shortness of breath) SOB (shortness of breath) Disease Active -14 00:00: 00 [facility] Obesity (BMI 30-39.9) Obesity (BMI 30-39.9) Disease Active 11-23 00:00: 00 [facility] Allergies, Adverse Reactions, Alerts Allergy Name Allergy Type Status Severity Reaction(s) Onset Date Inactive Date Treating Clinician Comments Source MORPHINE DRUG INGREDI Active Unknown-Cmnt 12-06 00:00: 00 [facility] Morphine Propensi ty to adverse reaction s Active Unknown - See comments 12-06 00:00: 00 Patient does not know reaction [facility] NO KNOWN ALLERGIE S Drug Class Active [facility] Social History Social Habit Start Date Stop Date Quantity Comments Source History SDOH Alcohol Std Drinks [facility] History SDOH Alcohol Binge [facility] History SDOH Alcohol Frequency [facility] Exposure to SARS-CoV-2 (event) 2021-11-26 00:00:00 2021-12-06 12:55:00 Not sure [facility] Alcohol intake 2021-12-06 00:00:00 2021-12-06 00:00:00 Current drinker of alcohol (finding) [facility] Alcohol Comment 2016-11-22 00:00:00 2016-11-22 00:00:00 Daily [facility] Tobacco use and exposure 2016-11-22 00:00:00 2016-11-22 00:00:00 Smokeless tobacco non-user [facility] Sex Assigned At 1985 00:00:00 1985 00:00:00 [facility] Smoking Status Start Date Stop Date Source Never smoked tobacco [facility] Medications Ordered Medication Name Filled Medication Name Start Date Stop Date Current Medication? Ordering Clinician Indication Dosage Frequency Signature (SIG) Comments Components Source lisinopriL (PRINIVIL,Z ESTRIL) tablet 20 mg 12-07 14:00: 00 Yes 20mg 20 mg, Oral, DAILY, First dose on Sat12/07/21 at 0900, Until Discontinu ed, Routine [facility] HYDROcodone -acetaminop hen (NORCO) 10-325 mg tablet 1 tablet 12-06 17:15: 00 12-06 16:12 :00 No 1{tbl} 1 tablet, Oral, ONCE, 1 dose, On Sat12/06/21 at 1215, Routine [facility] carvediloL (COREG) tablet 25 mg 12-06 17:15: 00 12-06 16:12 :00 No 25mg 25 mg, Oral, ONCE, 1 dose, On Sat12/06/21 at 1215, Routine [facility] methylpredn isolone sod succ (SOLU-MEDRO L) injection 125 mg 12-06 16:45: 00 12-06 16:09 :00 No 125mg 125 mg, Intramuscu lar, ONCE, 1 dose, On Sat12/06/21 at 1145, REGINA [facility] acetaminoph en-codeine 300-30 mg tablet 12-06 00:00: 00 Yes [id number] 1{tbl} Take 1 tablet by mouth every 4 (four) hours as needed for Pain (scale 4-6). Indication s: acute pain [facility] predniSONE 20 mg tablet 12-06 00:00: 00 Yes [id number] 1 PO BID x 4 days [facility] aspirin 81 mg chewable tablet 09-14 00:00: 00 Yes [id number] 81mg Take 1 tablet by mouth daily. [facility] atorvastati n 40 mg tablet 09-14 00:00: 00 Yes [id number] 40mg Take 1 tablet by mouth at bedtime. [facility] carvediloL 25 mg tablet 09-14 00:00: 00 Yes [id number] 37.5mg Take 1.5 tablets by mouth 2 (two) times daily with meals. [facility] furosemide 40 mg tablet 09-14 00:00: 00 Yes [id number] 40mg Take 1 tablet by mouth every morning and evening. [facility] lisinopriL 10 mg tablet 09-14 00:00: 00 Yes [id number] 30mg Take 3 tablets by mouth daily. [facility] spironolact one 25 mg tablet 09-14 00:00: 00 Yes [id number] 25mg Take 1 tablet by mouth daily. [facility] aspirin 81 mg chewable tablet 08-22 00:00: 00 09-14 00:00 :00 No [id number] 81mg Take 1 tablet by mouth daily for 180 days. [facility] lisinopriL 10 mg tablet 08-22 00:00: 00 09-14 00:00 :00 No [id number] 30mg Take 3 tablets by mouth daily for 180 days. [facility] spironolact one 25 mg tablet 08-22 00:00: 00 09-14 00:00 :00 No [id number] 25mg Take 1 tablet by mouth daily for 180 days. [facility] carvediloL (COREG) tablet 37.5 mg 08-21 22:00: 00 Yes 37.5mg 37.5 mg, Oral, BID MEALS, First dose (after last modificati on) on Sat08/21/21 at 1700, Until Discontinu ed, Routine [facility] lisinopriL (PRINIVIL,Z ESTRIL) tablet 30 mg 08-21 14:00: 00 Yes 30mg 30 mg, Oral, DAILY, First dose (after last modificati on) on Sat08/21/21 at 0900, Until Discontinu ed, Routine [facility] magnesium oxide (MAG-OX 400) tablet 400 mg 08-21 13:45: 00 08-21 13:20 :00 No 400mg 400 mg, Oral, ONCE, 1 dose, On Sat08/21/21 at 0845, Routine [facility] amLODIPine 10 mg tablet 08-21 11:33: 41 08-21 00:00 :00 No 10mg Take 10 mg by mouth daily. [facility] hydroCHLORO thiazide 25 mg tablet 08-21 11:33: 41 08-21 00:00 :00 No 25mg Take 25 mg by mouth daily. [facility] ibuprofen 800 mg tablet 08-21 11:33: 41 08-21 00:00 :00 No 800mg Take 800 mg by mouth 2 (two) times daily. [facility] hydrALAZINE (APRESOLINE ) tablet 10 mg 08-21 07:00: 00 08-21 06:05 :00 No 10mg 10 mg, Oral, ONCE, 1 dose, On 08/21/21 at 0200, Routine [facility] atorvastati n 40 mg tablet 08-21 00:00: 00 09-14 00:00 :00 No [id number] 40mg Take 1 tablet by mouth at bedtime for 180 days. [facility] furosemide 40 mg tablet 08-21 00:00: 00 09-14 00:00 :00 No [id number] 40mg Take 1 tablet by mouth every morning and evening for 180 days. [facility] carvediloL 25 mg tablet 08-21 00:00: 00 09-14 00:00 :00 No [id number] 37.5mg Take 1.5 tablets by mouth 2 (two) times daily with meals for 180 days. [facility] carvediloL 25 mg tablet 08-21 00:00: 00 08-21 00:00 :00 No [id number] 25mg Take 1 tablet by mouth 2 (two) times daily with meals for 180 days. [facility] furosemide (LASIX) tablet 40 mg 08-20 14:00: 00 Yes 40mg 40 mg, Oral, QAM+PM, First dose (after last modificati on) on 08/20/21 at 0900, Until Discontinu ed, Routine [facility] lisinopriL (PRINIVIL,Z ESTRIL) tablet 20 mg 08-20 14:00: 00 08-21 11:42 :47 No 20mg 20 mg, Oral, DAILY, First dose (after last modificati on) on 08/20/21 at 0900, Until Discontinu ed, Routine [facility] carvediloL (COREG) tablet 25 mg 08-20 13:00: 00 08-21 17:46 :56 No 25mg 25 mg, Oral, BID MEALS, First dose (after last modificati on) on 08/20/21 at 0800, Until Discontinu ed, [facility]ine [facility] lisinopriL (PRINIVIL,Z ESTRIL) tablet 5 mg 08-19 15:00: 00 08-19 14:30 :00 No 5mg 5 mg, Oral, ONCE, 1 dose, On 08/19/21 at 1000, Routine [facility] carvediloL (COREG) tablet 12.5 mg 08-19 13:00: 00 08-19 22:39 :41 No 12.5mg 12.5 mg, Oral, BID MEALS, First dose (after last modificati on) on 08/19/21 at 0800, Until Discontinu ed, Routine [facility] furosemide (LASIX) injection 40 mg 08-19 01:00: 00 08-19 17:31 :11 No 40mg 40 mg, Slow IV Push, Q12H, First dose on Sat08/18/21 at 2000, Until Discontinu ed, Routine [facility] hydrALAZINE (APRESOLINE ) tablet 25 mg 08-18 21:47: 07 Yes 25mg 25 mg, Oral, Q6HPRN, Starting on Sat08/18/21 at 1647, Until Discontinu ed, Routine, SBP >180 [facility] lisinopriL (PRINIVIL,Z ESTRIL) tablet 10 mg 08-18 18:15: 00 08-18 18:14 :00 No 10mg 10 mg, Oral, DAILY, 1 dose, First dose on Sat08/18/21 at 1315, Routine [facility] lisinopriL (PRINIVIL,Z ESTRIL) tablet 10 mg 08-18 16:00: 00 08-19 13:47 :35 No 10mg 10 mg, Oral, DAILY, First dose on Sat08/18/21 at 1100, Until Discontinu ed, Routine [facility] spironolact one (ALDACTONE) tablet 25 mg 08-18 14:00: 00 Yes 25mg 25 mg, Oral, DAILY, First dose on Sat08/18/21 at 0900, Until Discontinu ed, Routine [facility] aspirin chewable tablet 81 mg 08-18 14:00: 00 Yes 81mg 81 mg, Oral, DAILY, First dose on Sat08/18/21 at 0900, Until Discontinu ed, Routine [facility] furosemide (LASIX) tablet 40 mg 08-18 14:00: 00 08-18 16:18 :32 No 40mg 40 mg, Oral, QAM+PM, First dose on Sat08/18/21 at 0900, Until Discontinu ed, Routine [facility] amLODIPine (NORVASC) tablet 10 mg 08-18 12:00: 00 08-18 11:05 :00 No 10mg 10 mg, Oral, ONCE, 1 dose, On Sat08/18/21 at 0700, Routine [facility] atorvastati n (LIPITOR) tablet 40 mg 08-18 02:00: 00 Yes 40mg 40 mg, Oral, QHS, First dose on Sat08/17/21 at 2100, Until Discontinu ed, Routine [facility] heparin (porcine) injection 5,000 Units 08-18 01:00: 00 Yes 5000U 5,000 Units, Subcutaneo us, Q12H, First dose on Sat08/17/21 at 2000, Until Discontinu ed, Routine [facility] hydrALAZINE (APRESOLINE ) tablet 10 mg 08-17 22:45: 00 08-17 23:51 :00 No 10mg 10 mg, Oral, ONCE, 1 dose, On Sat08/17/21 at 1745, Routine [facility] hydrALAZINE (APRESOLINE ) tablet 10 mg 08-17 21:45: 54 08-18 21:47 :24 No 10mg 10 mg, Oral, Q6HPRN, Starting on Sat08/17/21 at 1645, Until Sat08/18/21 at 1647, Routine, SBP >180 [facility] sulfur hexafluorid e microsphr (LUMASON) injection 5 mL 08-17 20:45: 00 08-17 20:45 :00 No [id number] 5mL 5 mL, Intravenou s, ONCE, 1 dose, On Sat08/17/21 at 1545, Routine
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 Restricted medication : DEZ QIU [facility] magnesium sulfate in water 4 gram/50 mL (8 %) IV Piggyback 4 g 08-17 18:15: 00 08-17 18:29 :00 No 4g 4 g, IV Piggyback, ONCE, 1 dose, On Sat08/17/21 at 1315, Routine [facility] KCL (KLOR-CON M20) tablet 40 mEq 08-17 18:15: 00 08-17 18:10 :00 No 40meq 40 mEq, Oral, ONCE, 1 dose, On Sat08/17/21 at 1315, Routine [facility] furosemide (LASIX) injection 40 mg 08-17 17:15: 00 08-18 12:42 :25 No 40mg 40 mg, Slow IV Push, Q12H, First dose on Sat08/17/21 at 1215, Until Discontinu ed, Routine [facility] acetaminoph en (TYLENOL) tablet 650 mg 08-17 14:09: 58 Yes 650mg 650 mg, Oral, Q6HPRN, Starting on Sat08/17/21 at 0909, Until Discontinu ed, Routine, Pain (scale 1-3) [facility] amLODIPine 10 mg tablet 08-17 09:16: 15 Yes 10mg Take 10 mg by mouth daily. [facility] hydroCHLORO thiazide 25 mg tablet 08-17 09:16: 15 Yes 25mg Take 25 mg by mouth daily. [facility] ibuprofen 800 mg tablet 08-17 09:16: 15 Yes 800mg Take 800 mg by mouth 2 (two) times daily. [facility] Vital Signs Vital Name Observation Time Observation Value Comments S qi Systolic blood pressure 2021-12-06 17:40:07 158 mm[Hg] [facility] Diastolic blood pressure 2021-12-06 17:40:07 105 mm[Hg] [facility] Heart rate 2021-12-06 15:43:00 91 /[facility] Respiratory rate 2021-12-06 15:43:00 20 /min [facility] Oxygen saturation in Arterial blood by Pulse oximetry 2021-12-06 15:43:00 97 /min [facility] Body temperature 2021-12-06 14:49:00 36.61 Anastasiia [facility] Body height 2021-12-06 14:49:[address] [facility] Body weight 2021-12-06 14:49:[address] [facility] BMI 2021-12-06 14:49:00 29.84 kg/m2 [facility] Systolic blood pressure 2021-08-21 20:39:00 143 mm[Hg] [facility] Diastolic blood pressure 2021-08-21 20:39:00 104 mm[Hg] [facility] Heart rate 2021-08-21 20:39:00 79 /min [facility] Body temperature 2021-08-21 20:39:00 36 Anastasiia [facility] Respiratory rate 2021-08-21 20:39:00 18 /min [facility] Oxygen saturation in Arterial blood by Pulse oximetry 2021-08-21 20:39:00 99 /min [facility] Body weight 2021-08-21 10:57:[address] [facility] BMI 2021-08-21 10:57:00 31.11 kg/m2 [facility] Body height 2021-08-18 10:31:[address] [facility] Procedures Procedure Date / Time Performed Performing Clinician Source NOTICE OF PRIVACY PRACTICES 2021-12-06 14:38:21 Doctor Unassigned, [place] [facility] CONSENT/REFUSAL FOR DIAGNOSIS AND TREATMENT 2021-12-06 14:38:03 Doctor Unassigned, [place] [facility] AUTHORIZATION FOR RELEASE OF PHI 2021-09-01 05:01:00 Doctor Unassigned, [place] [facility] MAGNESIUM 2021-08-21 08:42:00 Eryn [facility] BASIC METABOLIC PANEL (NA, K, CL, CO2, GLUCOSE, BUN, CREATININE, CA) 2021-08-21 08:42[facility] 2021-08-21 08:42:00 Gaston Elizabeth [facility] HB ECG ROUTINE & RHYTHM STRIP 2021-08-20 13:02:55 [facility] 2021-08-20 09:22:00 Anca [facility] BASIC METABOLIC PANEL (NA, K, CL, CO2, GLUCOSE, BUN, CREATININE, CA) 2021-08-20 09:22:00 Anca [facility] CBC WITH DIFF 2021-08-20 09:22:00 [facility]HYTHM [facility] 2021-08-19 13:08:08 [facility] 2021-08-19 10:21:00 Gaston [facility] BASIC METABOLIC PANEL (NA, K, CL, CO2, GLUCOSE, BUN, CREATININE, CA) 2021-08-19 10:21:00 [facility]ABOLIC [facility]EL (NA, K, CL, CO2, GLUCOSE, BUN, CREATININE, CA) 2021-08-18 19:41:00 [facility] & RHYTHM STRIP 2021-08-18 14:50:24 [facility] 2021-08-18 09:10:00 Eryn [facility] BASIC METABOLIC PANEL (NA, K, CL, CO2, GLUCOSE, BUN, CREATININE, CA) 2021-08-18 09:10:00 [facility]FF 2021-08-18 09:10:00 [facility] 2021-08-17 23:58:00 Supa [facility] TRANSTHORACIC ECHO (TTE) COMPLETE W/ CONTRAST 2021-08-17 18:53:00 Supa [facility] PHOSPHORUS 2021-08-17 15:43:00 Supa [facility] MAGNESIUM 2021-08-17 15:43:00 Supa [facility] FERRITIN SERUM 2021-08-17 15:43:00 Eryn Cowart [facility] TROPONIN I 2021-08-17 15:43:00 Supa [facility] THYROID STIMULATING HORMONE 2021-08-17 15:43:00 Supa [facility] HEPATIC FUNCTION PANEL (01947) (ALB,T.PRO,BILI T,BU/BC,ALT,AST,ALK PHOS) 2021-08-17 15:43:00 Supa [facility] BASIC METABOLIC PANEL (NA, K, CL, CO2, GLUCOSE, BUN, CREATININE, CA) 2021-08-17 15:43:00 Supa [facility] IRON PANEL 2021-08-17 15:43:00 Supa [facility] CBC WITH DIFF 2021-08-17 15:43:00 Supa [facility] GLYCOSYLATED HEMOGLOBIN (A1C) 2021-08-17 15:43:00 Supa [facility] N-TERMINAL PRO-BNP 2021-08-17 15:43:00 Supa [facility] XR CHEST 1 VW 2021-08-17 15:10:00 Supa [facility] Encounters Start Date/Time End Date/Time Encounter Type Admission Type Attending [facility] Care Facility Care Department Encounter ID Source 2024-03-30 10:06:11 2024-03-30 10:06:11 Outpatient S[facility] [id number] 2022-08-17 00:00:2022-08-17 00:00:00 Refill T[facility] 1.2840.114 350.1.13.10 [id number] [id number] [facility] 2021-12-06 09:51:00 2021-12-06 13:09:00 Emergency X BRIGHT, Tameka [facility] ERT [id number] [facility] 2021-12-06 09:51:00 2021-12-06 13:09:00 Emergency BrightTameka velezge [facility] 1.2840.114 350.1.13.10 4.2.7.2.686 [id number] [facility] 2021-12-06 00:00:00 2021-12-06 00:00:00 Orders Only Doctor Unassigned, [place] [facility] 1.2840.114 350.1.13.10 4.2.7.2.686 [id number] [facility] 2021-09-14 00:00:00 2021-09-14 00:00:00 Telephone Ciar[facility]eraldmonie [facility] 1.2840.114 350.1.13.10 4.2.7.2.686 [id number] [facility] 2021-09-12 00:00:00 2021-09-12 00:00:00 [facility] 1.2840.114 350.1.13.10 4.2.7.2.686 [id number] [facility] 2021-09-01 00:00:00 2021-09-01 00:00:00 Orders Only Doctor Unassigned, [place] [facility] 1.2840.114 350.1.13.10 4.2.7.2.686 [id number] [facility] 2021-09-01 00:00:00 2021-09-01 00:00:00 [facility] [id number] 350.1.13.10 4.2.7.2.686 [id number] [facility] 2021-08-30 00:00:00 2021-08-30 00:00:00 Telephone [facility] [id number] 350.1.13.10 4.2.7.2.686 [id number] [facility] 2021-08-22 00:00:00 2021-08-22 00:00:00 Transition of Care Sherrell Neumann [facility] [id number] 350.1.13.10 4.2.7.2.686 [id number] [facility] 2021-08-17 08:35:00 2021-08-21 17:42:00 Inpatient U DIMITRIOS ABEL [facility] [id number] [facility] 2021-08-17 08:35:00 2021-08-21 17:42:00 Hospital Encounter Cipriano Denisdarlene MainahDimitrios Douglass [facility] 1.2840.114 350.1.13.10 4.2.7.2.686 [id number] [facility] 2021-08-18 00:00:00 2021-08-18 00:00:00 Telephone Dimitrios Abel [facility] [id number] 350.1.13.10 4.2.7.2.686 [id number] [facility] Results Test Description Test Time Test Comments Results Result Co mments Source [facility] (NA, K, CL, CO2, GLUCOSE, BUN, CREATININE, CA)2021-08-21 10:07:34* Test Item Value Reference Range Interpretation Comme nts NA (test code = 8673857089) 135 mmol/L 135-145 K (test code = 4536331094) 4.4 mmol/L 3.5-5.0 CL (test code = 1435578408) 102 mmol/L 98-108 CO2 TOTAL (test code = 5724619573) 26 mmol/L 23-31 AGAP (test code = 8856591125) 2-16 BUN (test code = 6646306354) 27 mg/dL 7-23 H GLUCOSE (test code = 9462429579) 104 mg/dL 70-110 CREATININE (test code = 0696674983) 1.49 mg/dL 0.60-1.25 H CALCIUM (test code = 7308554169) 9.0 mg/dL 8.6-10.6 eGFR (test code = 5894069479) mL/min/1.73m2 EBEN (test code = EBEN) Association [...] imaging tests). Lab Interpretation (test code = 30681-8) [facility]normal [facility] 10:07:34* Test Item Value Reference Range Interpretation Comme nts MAGNESIUM (test code = 4832683242) 1.9 mg/dL 1.7-2.4 Lab Interpretation (test cod e = 94742-1) Normal [facility] (NA, K, CL, CO2, GLUCOSE, BUN, CREATININE, CA)2021-08-20 10:22:59* Test Item Value Reference Range Interpretation Comme nts NA (test code = 3651743737) 137 mmol/L 135-145 K (test code = 9145694435) 4.4 mmol/L 3.5-5.0 CL (test code = 9437584446) 102 mmol/L 98-108 CO2 TOTAL (test code = 8403930284) 26 mmol/L 23-31 AGAP (test code = 5359421499) 2-16 BUN (test code = 4793556007) 31 mg/dL 7-23 H GLUCOSE (test code = 4004790970) 119 mg/dL 70-110 H CREATININE (test code = 8245772026) 1.56 mg/dL 0.60-1.25 H CALCIUM (test code = 4796917358) 9.1 mg/dL 8.6-10.6 eGFR (test code = 5172363712) mL/min/1.73m2 EBEN (test code = EBEN) Association [...] imaging tests). Lab Interpretation (test code = 52516-8) [facility]normal [facility] 10:22:59* Test Item Value Reference Range Interpretation Comme nts MAGNESIUM (test code = 1761138742) 2.1 mg/dL 1.7-2.4 Lab Interpretation (test cod e = 26176-2) Normal [facility] WITH [id number] 09:42:15* Test Item Value Reference Range Interpretation Comme nts WBC (test code = 6690-2) See_Comment H [Automated Atlas5D] The system which generated this result transmitted reference range: 4.20 - 10.70 10*3/?L. The reference range was not used to interpret this result as normal/abnormal. RBC (test code = 789-8) See_Comment [Automated Atlas5D] The system which generated this result transmitted [...] 32.8 g/dL 31.2-35.0 RDW-SD (test code = 56178-8) 39.3 fL 38.5-51.6 RDW-CV (test code = 788-0) 12.5 % 12.1-15.4 PLT (test code = 777-3) See_Comment H [Automated Zhui Xina ge] The system which generated this result transmitted reference range: 150 - 328 10*3/?L. The reference range was not used to interpret this result as normal/abnormal. MPV (test code = 43247-9) 9.3 fL 9.8-13.0 L NRBC/100 WBC (test code = 0301962226) See_Comment [Automated Cat Amania ssage] The system which generated this result transmitted reference range: 0.0 - 10.0 /100 WBCs. The reference range was not used to interpret this result as normal/abnormal. NRBC x10^3 (test code = 7095959462) <0.01 See_Comment [Automated Zhui Xina ge] The system which generated this result transmitted reference range: 10*3/?L. The reference range was not used to interpret this result as normal/abnormal. GRAN MAT (NEUT) % (test code = 770-8) 60.5 % IMM GRAN % (test code = 2703541140) 0.30 % LYMPH % (test code = 736-9) 26.7 % MONO % (test code = 5905-5) 8.3 % EOS % (test code = 713-8) 3.4 % BASO % (test code = 706-2) 0.8 % GRAN MAT x10^3(ANC) (test code = 5120230298) 7.17 10*3/uL 1.99-6.95 H IMM GRAN x10^3 (test code = 8952550132) 0.03 10*3/uL 0.00-0.06 LYMPH x10^3 (test code = 731-0) 3.16 10*3/uL 1.09-3.23 MONO x10^3 (test code = 742-7) 0.98 10*3/uL 0.36-1.02 EOS x10^3 (test code = 711-2) 0.40 10*3/uL 0.06-0.53 BASO x10^3 (test code = 704-7) 0.10 10*3/uL 0.01-0.09 H Lab Interpretation (test code = 02956-5) [facility]normal [facility] (NA, K, CL, CO2, GLUCOSE, BUN, CREATININE, CA)2021-08-19 10:52:12* Test Item Value Reference Range Interpretation Comme nts NA (test code = 6264258311) 136 mmol/L 135-145 K (test code = 0790233853) 3.8 mmol/L 3.5-5.0 CL (test code = 4826349112) 100 mmol/L 98-108 CO2 TOTAL (test code = 6042457240) 29 mmol/L 23-31 AGAP (test code = 2861639007) 2-16 BUN (test code = 6252354395) 32 mg/dL 7-23 H GLUCOSE (test code = 6793340573) 115 mg/dL 70-110 H CREATININE (test code = 4456970543) 1.67 mg/dL 0.60-1.25 H CALCIUM (test code = 7375743962) 9.1 mg/dL 8.6-10.6 eGFR (test code = 3143857211) mL/min/1.73m2 EBEN (test code = EBEN) Association [...] imaging tests). Lab Interpretation (test code = 65060-6) [facility]normal [facility] 10:52:12* Test Item Value Reference Range Interpretation Comme nts MAGNESIUM (test code = 0111273009) 1.9 mg/dL 1.7-2.4 Lab Interpretation (test cod e = 88080-1) Normal [facility] (NA, K, CL, CO2, GLUCOSE, BUN, CREATININE, CA)2021-08-18 21:19:06* Test Item Value Reference Range Interpretation Comme nts NA (test code = 4614683723) 135 mmol/L 135-145 K (test code = 0544185153) 3.9 mmol/L 3.5-5.0 CL (test code = 0469086290) 98 mmol/L 98-108 CO2 TOTAL (test code = 8319289023) 30 mmol/L 23-31 AGAP (test code = 7757541421) 2-16 BUN (test code = 9169593053) 29 mg/dL 7-23 H GLUCOSE (test code = 6966928050) 121 mg/dL 70-110 H CREATININE (test code = 0169617870) 1.58 mg/dL 0.60-1.25 H CALCIUM (test code = 4447800885) 8.9 mg/dL 8.6-10.6 eGFR (test code = 3711402305) mL/min/1.73m2 EBEN (test code = EBEN) Association [...] imaging tests). Lab Interpretation (test code = 81762-4) Abnormal [facility] METABOLIC PANEL (NA, K, CL, CO2, GLUCOSE, BUN, CREATININE, CA)2021-08-18 10:04:44* Test Item Value Reference Range Interpretation Comme nts NA (test code = 7384769358) 135 mmol/L 135-145 K (test code = 4200768599) 4.0 mmol/L 3.5-5.0 Slight hemolysis CL (test code = 9185911888) 101 mmol/L 98-108 CO2 TOTAL (test code = 7411502495) 29 mmol/L 23-31 AGAP (test code = 8651053356) 2-16 BUN (test code = 7259424994) 32 mg/dL 7-23 H Slight hemolysis GLUCOSE (test code = 6060742488) 114 mg/dL 70-110 H CREATININE (test code = 7387731923) 1.54 mg/dL 0.60-1.25 H CALCIUM (test code = 1378931819) 8.8 mg/dL 8.6-10.6 eGFR (test code = 1223072558) mL/min/1.73m2 EBEN (test code = EBEN) Association [...] imaging tests). Lab Interpretation (test code = 49083-9) [facility]* Test Item Value Reference Range Interpretation Comme nts MAGNESIUM (test code = 0515554945) 2.2 mg/dL 1.7-2.4 Lab Interpretation (test cod e = 93613-0) [facility] [id number] 09:24:38* Test Item Value Reference Range Interpretation Comme nts WBC (test code = 6690-2) See_Comment [Automated Atlas5D] The system which generated this result transmitted reference range: 4.20 - 10.70 10*3/?L. The reference range was not used to interpret this result as normal/abnormal. RBC (test code = 789-8) See_Comment [Automated Atlas5D] The system which generated this result transmitted [...] 33.3 g/dL 31.2-35.0 RDW-SD (test code = 09853-7) 39.1 fL 38.5-51.6 RDW-CV (test code = 788-0) 12.6 % 12.1-15.4 PLT (test code = 777-3) See_Comment H [Automated messa ge] The system which generated this result transmitted reference range: 150 - 328 10*3/?L. The reference range was not used to interpret this result as normal/abnormal. MPV (test code = 19939-1) 9.5 fL 9.8-13.0 L NRBC/100 WBC (test code = 4921799443) See_Comment [Automated Cat Amania ssage] The system which generated this result transmitted reference range: 0.0 - 10.0 /100 WBCs. The reference range was not used to interpret this result as normal/abnormal. NRBC x10^3 (test code = 4905641817) <0.01 See_Comment [Automated messa ge] The system which generated this result transmitted reference range: 10*3/?L. The reference range was not used to interpret this result as normal/abnormal. GRAN MAT (NEUT) % (test code = 770-8) 65.3 % IMM GRAN % (test code = 6977247837) 0.20 % LYMPH % (test code = 736-9) 23.3 % MONO % (test code = 5905-5) 7.0 % EOS % (test code = 713-8) 3.5 % BASO % (test code = 706-2) 0.7 % GRAN MAT x10^3(ANC) (test code = 2028722045) 6.63 10*3/uL 1.99-6.95 IMM GRAN x10^3 (test code = 0304841907) <0.03 0.00-0.06 LYMPH x10^3 (test code = 731-0) 2.36 10*3/uL 1.09-3.23 MONO x10^3 (test code = 742-7) 0.71 10*3/uL 0.36-1.02 EOS x10^3 (test code = 711-2) 0.35 10*3/uL 0.06-0.53 BASO x10^3 (test code = 704-7) 0.07 10*3/uL 0.01-0.09 Lab Interpretation (test code = 61332-5) [facility]2021-08-18 02:37:07* Test Item Value Reference Range Interpretation Comme nts HGB A1C (test code = 4548-4) 5.8 % 4.0-5.7 H EBEN (test code = EBEN) Reference RangesNormal: <5.7%Prediabetes: 5.7 - 6.4%Diabetes: > 6.5% Lab Interpretation (test code = 23109-0) [facility]normal [facility] [id number] 01:03:37* Test Item Value Reference Range Interpretation Comments TROPONIN I (test code = 4074919362) 0.101 ng/mL See_Comment H [Automated message] The [...] of biotin. Lab Interpretation (test code = 83354-4) [facility]2021-08-17 22:14:20* Test Item Value Reference Range Interpretation Comme nts Ao root annulus (test code = 6048761727) 3.3 cm Ao root diam (test code = 9357029643) 3.30 cm Aortic root (test code = 2000102323) 3.3 cm LA size (test code = 0476484795) 3.7 cm LVOT diameter (test code = 8493305314) 2.00 cm LVIDD (test code = 1699437835) 5.90 cm IVS (test code = 6582085499) 1.26 cm Interventricular Septum Diastolic Thickness by 2D (test code = 5842889) 1.26 cm LVPWD (test code = 2530983143) 1.19 cm PW (test code = 9103988489) 1.19 cm 0.6-1.1 EF(Teich) (test code = 0031299430) 46.60 % LVIDS (test code = 6903949598) 4.50 cm FS (test code = 5651167388) 24 % EF - 2D (test code = 07581713) 46.60 % LAV(MOD-sp4) (test code = 1946804479) 65.30 mL MV Peak E Narciso (test code = 8663416160) 126.4 cm/s E wave decelartion time (test code = 7636082377) 0.14 s MV Prop V (test code = 2205321228) 35.00 cm/s LVOT stroke volume (test code = 0744517326) 45.10 cm3 LVOT peak narciso (test code = 7159194140) 90.0 cm/s LVOT mn grad (test code = 5029067671) mmHg AV LVOT peak gradient (test code = 9322550568) mmHg LVOT peak VTI (test code = 0623891205) 14.4 cm LV V1 mean (test code = 1029535062) 63.00 cm/s Aortic valve mean velocity (test code = 2846506004) 76.8 cm/s Ao peak narciso (test code = 8585469152) 125.5 cm/s Ao VTI (test code = 4259483890) 17.0 cm AV area by cont VTI (test code = 5604007721) 2.6 cm2 AV area peak narciso (test code = 8069336487) 2.2 cm2 Ao max PG (test code = 1410847048) 6.30 mm[Hg] AV peak gradient (test code = 6360199431) mmHg AV valve area (test code = 1592942195) 2.60 cm2 AV mean gradient (test code = 7991070393) mmHg TR Peak Narciso (test code = 2967765049) 119.4 cm/s Triscuspid Valve Regurgitation Peak Gradient (test code = 0318860952) mmHg Tapse (test code = 6949165620) 1.95 cm LA volume (BP) (test code = 9685394953) 73.5 mL LAV(MOD-sp2) (test code = 9561718284) 74.00 mL LA Volume Index (BP) (test code = 3447832275) 32.5 mL/m2 LV Diastolic Volume (BP) (test code = 9192224911) 232.2 mL EF(MOD-bp) (test code = 2024543462) 33.10 % LV Systolic Volume (BP) (test code = 9076739056) 155.2 mL SV(MOD-bp) (test code = 2233671701) 76.90 mL EF (test code = 0520643683) 33 % Left Ventricular Stroke Volume by 2-D Biplane-MOD (test code = 6697121) 76.9 mL Radiology Study observation (narrative) (test code = 45194-5) EBEN (test code = EBEN) ?Left?Ventricle: Left [...] (104.3 kg) 2.3 sq meters 183/126 82 [facility] (ALB,T.PRO,BILI T,BU/BC,ALT,AST,ALK PHOS)2021-08-17 17:59:20* Test Item Value Reference Range Interpretation Comme nts TOTAL BILI (test code = 6593562095) 0.4 mg/dL 0.1-1.1 BILI UNCON (test code = 8690272599) 0.4 mg/dL 0.1-1.1 BILI CONJ (test code = 8103837510) 0.0 mg/dL 0.0-0.3 T PROTEIN (test code = 2892972498) 6.4 g/dL 6.3-8.2 ALBUMIN (test code = 3699578710) 3.7 g/dL 3.5-5.0 ALK PHOS (test code = 9941748629) 64 U/L 34-122 ALTv (test code = 1742-6) 39 U/L 5-50 AST(SGOT) (test code = 4665010899) 30 U/L 13-40 Lab Interpretation (test cod e = 71579-2) Normal [facility] [id number] 17:21:19* Test Item Value Reference Range Interpretation Comme nts FERRITIN (test code = 8150964858) 29.7 ng/mL 18.0-464.0 EBEN (test code = EBEN) Biotin has been reported to cause a negative bias, interpret results relative to patient's use of biotin. Lab Interpretation (test code = 29978-2) Normal [facility] STIMULATING [id number] 17:14:24 * Test Item Value Reference Range Interpretation Comme nts TSH (test code = 6394688798) See_Comment [Automated messa ge] The system which generated this result transmitted reference range: 0.45 - 4.70 mIU/L. The reference range was not used to interpret this result as normal/abnormal. Lab Interpretation (test code = 13454-6) Normal [facility]MINAL [id number] 16:55:55* Test Item Value Reference Range Interpretation Comme nts NT-proBNP (test code = 3568322009) 5070 pg/mL See_Comment H [Automated message] The system which generated this result transmitted reference range: <=125. The reference range was not used to interpret this result as normal/abnormal. EBEN (test code = EBEN) Biotin has been reported to cause a negative bias, interpret results relative to patient's use of biotin. Lab Interpretation (test code = 85415-9) [facility]normal [facility] [id number] 16:55:55* Test Item Value Reference Range Interpretation Comments TROPONIN I (test code = 7113506343) 0.117 ng/mL See_Comment H [Automated message] The [...] of biotin. Lab Interpretation (test code = 60189-1) [facility]normal [facility] HendersonIRON [id number] 16:52:53* Test Item Value Reference Range Interpretation Comme nts IRON (test code = 7678285644) 51 ug/dL 50-160 TIBC (test code = 1482018090) 298 ug/dL 250-410 % FE SAT (test code = 1302055097) 17 % 20-50 L Lab Interpretation (test cod e = 96080-5) [facility]normal [facility]2022-[facility]-14 16:41:35* Test Item Value Reference Range Interpretation Comme nts MAGNESIUM (test code = 2887440503) 1.6 mg/dL 1.7-2.4 L Lab Interpretation (test cod e = 65890-4) [facility]normal [facility]OS[facility]ORUS2022-04-14 16:41:35* Test Item Value Reference Range Interpretation Comme nts PHOSPHORUS (test code = 8427358646) 4.0 mg/dL 2.5-5.0 Lab Interpretation (test cod e = 85549-4) Normal [facility]OL[facility] (NA, K, CL, CO2, GLUCOSE, BUN, CREATININE, CA)2021-08-17 16:41:35* Test Item Value Reference Range Interpretation Comme nts NA (test code = 4831767525) 134 mmol/L 135-145 L K (test code = 5791427705) 3.6 mmol/L 3.5-5.0 CL (test code = 1858192502) 99 mmol/L 98-108 CO2 TOTAL (test code = 4615845108) 32 mmol/L 23-31 H AGAP (test code = 8350161130) 2-16 BUN (test code = 9190723505) 24 mg/dL 7-23 H GLUCOSE (test code = 9312262961) 111 mg/dL 70-110 H CREATININE (test code = 5811899677) 1.60 mg/dL 0.60-1.25 H CALCIUM (test code = 0645725804) 8.8 mg/dL 8.6-10.6 eGFR (test code = 9709718287) mL/min/1.73m2 EBEN (test code = EBEN) Association [...] imaging tests). Lab Interpretation (test code = 69991-6) Abnormal [facility] WITH [id number] 16:00:05* Test Item Value Reference Range Interpretation [...] 33.7 g/dL 31.2-35.0 RDW-SD (test code = 27244-9) 39.5 fL 38.5-51.6 RDW-CV (test code = 788-0) 12.6 % 12.1-15.4 PLT (test code = 777-3) See_Comment H [Automated messa ge] The system which generated this result transmitted reference range: 150 - 328 10*3/?L. The reference range was not used to interpret this result as normal/abnormal. MPV (test code = 84933-8) 9.4 fL 9.8-13.0 L NRBC/100 WBC (test code = 0424176706) See_Comment [Automated Cat Amania ssage] The system which generated this result transmitted reference range: 0.0 - 10.0 /100 WBCs. The reference range was not used to interpret this result as normal/abnormal. NRBC x10^3 (test code = 8554531061) <0.01 See_Comment [Automated messa ge] The system which generated this result transmitted reference range: 10*3/?L. The reference range was not used to interpret this result as normal/abnormal. GRAN MAT (NEUT) % (test code = 770-8) 65.6 % IMM GRAN % (test code = 7429835188) 0.20 % LYMPH % (test code = 736-9) 23.8 % MONO % (test code = 5905-5) 6.7 % EOS % (test code = 713-8) 3.2 % BASO % (test code = 706-2) 0.5 % GRAN MAT x10^3(ANC) (test code = 5577284893) 6.58 10*3/uL 1.99-6.95 IMM GRAN x10^3 (test code = 6963509639) <0.03 0.00-0.06 LYMPH x10^3 (test code = 731-0) 2.39 10*3/uL 1.09-3.23 MONO x10^3 (test code = 742-7) 0.67 10*3/uL 0.36-1.02 EOS x10^3 (test code = 711-2) 0.32 10*3/uL 0.06-0.53 BASO x10^3 (test code = 704-7) 0.05 10*3/uL 0.01-0.09 Lab Interpretation (test code = 87755-3) Abnormal [facility]"
--- NOTE | 2024-04-19 22:59 | EDPHYS ---
Physician Documentation [facility] Name: Ezequiel Padron Age: 39 yrs Sex: Male : 1985 Arrival Date: 04/19/2024 Time: 22:48 Bed IW1 Private MD: ED Physician Baldemar Harden HPI: 04/19 22:53 This 39 yrs old Black Male presents to ER via Unassigned with complaints of left knee kb swelling. 22:53 Pt is a 39 year old male who presents for left knee swelling that started today. states kb he had some pain in it yesterday but the swelling came on today. Denies fever. States he was here yesterday and got medications for pain and steroids, but [facility] was closed so he hasn't been able to fill them. . Historical: - Allergies: 23:11 Nitroglycerin; bm8 - PMHx: 23:11 Congestive heart failure; Hypertensive disorder; Gout; bm8 - PSHx: 23:11 R femur; bm8 - Immunization history:: Adult Immunizations up to date. - Infectious Disease History:: Denies. - Social history:: Smoking status: Patient denies any tobacco usage or history of. ROS: 22:54 Constitutional: As per HPI kb Exam: 22:55 Constitutional: This is a well developed, well nourished patient who is awake, alert, kb and in no acute distress. Head/Face: Normocephalic, atraumatic. ENT: Moist Mucous membranes Cardiovascular: Regular rate Respiratory: Respirations even and unlabored. No increased work of breathing. Talking in full sentences Skin: Warm, dry with normal turgor. Normal color. Neuro: Awake and alert, GCS 15, oriented to person, place, time, and situation. 22:55 Musculoskeletal/extremity: Extremities: grossly normal except: noted in the left knee: decreased ROM, pain, swelling, tenderness, ROM: limited active range of motion due to pain, Circulation is intact in all extremities. Sensation intact. [employer] Coma Score: 23:11 Eye Response: spontaneous(4). Motor Response: obeys commands(6). Verbal Response: bm8 oriented(5). Total: 15. MDM: 22:50 Medical Screening Exam initiated kb 22:57 Differential diagnosis: gout, cellulitis. Data reviewed: vital signs, nurses notes. kb Historians other than the Patient: Spouse/Significant Other: . Counseling: I had a detailed discussion with the patient and/or guardian regarding the historical points, exam findings, and any diagnostic results supporting the discharge/admit diagnosis, the need for outpatient follow up, a orthopedic surgeon, to return to the emergency department if symptoms worsen or persist or if there are any questions or concerns that arise at home. Administered Medications: 23:11 Drug: [place] PO 10 mg-325 mg 1 tabs PO once Route: PO; bm8 23:14 Follow up: Response: No adverse reaction; Medication administered at discharge. bm8 23:11 Drug: Ketorolac IM 30 mg IM once Route: IM; Site: right deltoid; bm8 23:14 Follow up: Response: No adverse reaction; Medication administered at discharge. bm8 23:11 Drug: Dexamethasone IM 10 mg IM once Route: IM; Site: left deltoid; bm8 23:14 Follow up: Response: No adverse reaction; Medication administered at discharge. bm8 Disposition Summary: 04/19/24 22:58 Discharge Ordered Notes: Location: Home kb Condition: Stable kb Diagnosis - Pain in left knee kb Followup: kb - With: Emergency Department - When: As needed - Reason: Worsening of condition Followup: kb - With: Private Physician - When: 2 - 3 days - Reason: Recheck today's complaints, Continuance of care, Re-evaluation by your physician Discharge Instructions: - Discharge Summary Sheet kb - Acute Knee Pain, Adult, [id number] kb Forms: - Medication Reconciliation Form kb - Antibiotic Education kb - Prescription Opioid Use kb - Patient Portal Instructions kb - Leadership Thank You Letter kb Signatures: Kristel Carballo FNP-C ROLLING MACHINE TENDER-Moises Houser, RN RN bm8 Corrections: (The following items were deleted from the chart) 22:58 22:53 Pt is a 39 year old male who presents for left knee swelling that started today. kb states he had some pain in it yesterday but the swelling came on today. Denies fever. . kb
[2024-04-19] MEDS ORDERED: KETOROLAC 30 MG/ML INJ ONE (23:04)
[2024-04-19] MEDS ORDERED: HYDROCODONE/APAP 10/325 TAB ONE (23:04)
[2024-04-19] MEDS ORDERED: dexAMETHasone 10 MG/ML VIAL ONE (23:04)
--- NOTE | 2024-04-19 23:14 | ER ---
Nurse's Notes [facility] Name: Ezequiel Padron Age: 39 yrs Sex: Male : 1985 Arrival Date: 04/19/2024 Time: 22:48 Bed IW1 Private MD: Diagnosis: Pain in left knee Historical: - Allergies: 04/19 23:11 Nitroglycerin; bm8 - PMHx: 23:11 Congestive heart failure; Hypertensive disorder; Gout; bm8 - PSHx: 23:11 R femur; bm8 - Immunization history:: Adult Immunizations up to date. - Infectious Disease History:: Denies. - Social history:: Smoking status: Patient denies any tobacco usage or history of. Screenin:11 [facility] ED Fall Risk Assessment (Adult) History of falling in the last 3 months, bm8 including since admission No falls in past 3 months (0 pts) Confusion or Disorientation No (0 pts) Intoxicated or Sedated No (0 pts) Impaired Gait No (0 pts) Mobility Assist Device Used No (0 pt) Altered Elimination No (0 pt) Score/Fall Risk Level 0 - 2 = Low Risk Oriented to surroundings, Maintained a safe environment, Educated pt \T\ family on fall prevention, incl call for assistance when getting out of bed, Assessed \T\ reinforced patient's understanding of fall precautions, Hourly rounding (assess needs \T\ fall precautionary measures) done, Used ambulatory aids as needed (educated on \T\ assisted with), Used gait belt as appropriate. Abuse screen: Denies threats or abuse. Nutritional screening: No deficits noted. Tuberculosis screening: No symptoms or risk factors identified. Assessment: 23:11 Reassessment: No changes from previously documented assessment. Patient and/or family bm8 updated on plan of care and expected duration. Pain level reassessed. Patient is alert, oriented x 3, equal unlabored respirations, skin warm/dry/pink. [place] Coma Score: 23:11 Eye Response: spontaneous(4). Motor Response: obeys commands(6). Verbal Response: bm8 oriented(5). Total: 15. ED Course: 22:49 Patient arrived in ED. ra3 22:50 Kristel Carblalo FNP-C is [facility]. kb 22:50 Baldemar Harden MD is Attending Physician. kb 23:00 Moises Schreiber, RN is Primary Nurse. bm8 23:11 Patient has correct armband on for positive identification. Adult w/ patient. Provided bm8 Education on: post er care. Client placed on continuous cardiac and pulse oximetry monitoring. NIBP monitoring applied. Pulse ox on. NIBP on. Noise minimized. Verbal reassurance given. 23:11 No provider procedures requiring assistance completed. Patient did not have IV access bm8 during this emergency room visit. Administered Medications: 23:11 Drug: [place] PO 10 mg-325 mg 1 tabs PO once Route: PO; bm8 23:14 Follow up: Response: No adverse reaction; Medication administered at discharge. bm8 23:11 Drug: Ketorolac IM 30 mg IM once Route: IM; Site: right deltoid; bm8 23:14 Follow up: Response: No adverse reaction; Medication administered at discharge. bm8 23:11 Drug: Dexamethasone IM 10 mg IM once Route: IM; Site: left deltoid; bm8 23:14 Follow up: Response: No adverse reaction; Medication administered at discharge. bm8 Medication: 23:11 VIS not applicable for this client. bm8 Outcome: 22:58 Discharge ordered by MD. kb 23:11 Discharged to home ambulatory, bm8 23:11 Condition: stable 23:11 Discharge instructions given to patient, family, Instructed on discharge instructions, follow up and referral plans. safety practices, Demonstrated understanding of instructions, follow-up care, medications, 23:14 Patient left the ED. bm8 Signatures: Kristel Carballo, HEAD START ASSISTANT TEACHER-C HEAD START ASSISTANT TEACHER-Zayra Blum ra3 Moises Schreiber, RN RN bm8
== END 2024-04-19 23:14 | disposition home or self-care (01) ==
LOC: ER 22:48
DX: M25.562 Pain in left knee (principal)
CPT/HCPCS: 96372; 99284; J1100

== ENCOUNTER 2024-05-21 17:42 | Emergency (ER) | payer OTHER ==
--- OUTSIDE RECORDS SUMMARY | 2024-05-21 17:46 | XMS REPORT | Continuity of Care Document ---
Author Name Unknown Address [address] [facility] [address] [place] [address] [facility] thconnect Address [address] [facility] [address] [place] [address] Care Team Providers Care Sign Painter Helper Name Role Phone Cristy FREDERICK, Marshall Dean Primary Care Physician Cipriano FREDERICK, Basim Sanz Attending Clinician + Tameka NOVOA Attending Clinician Unavailable Tameka Garcia Attending Clinician [phone] Doctor Unassigned, [place] Attending Clinician U jose e Neumann RN, Sherrell Attending Clinician Unavailable DIMITRIOS ABEL Attending Clinician UnavailDimitrios Kearney MD Attending Clinician [phone] DIMITRIOS ABEL Admitting Clinician Dimitrios Kasper MD Admitting Clinician [phone] Payers Payer Name Policy Type Policy Number Effective Date Expirati on Date Source Problems Condition Name Condition Details Condition Category Status Onset Date Resolution Date Last Treatment Date Treating Clinician Comments Source SOB (shortness of breath) SOB (shortness of breath) Disease Active -14 00:00: 00 [facility] Obesity (BMI 30-39.9) Obesity (BMI 30-39.9) Disease Active 11-23 00:00: 00 [facility] Allergies, Adverse Reactions, Alerts Allergy Name Allergy Type Status Severity Reaction(s) Onset Date Inactive Date Treating Clinician Comments Source MORPHINE DRUG INGREDI Active Unknown-Cmnt 12-06 00:00: 00 [facility] Morphine Propensi ty to adverse reaction s Active Unknown - See comments 12-06 00:00: 00 Patient does not know reaction [facility] NO KNOWN ALLERGIE S Drug Class Active [facility] Social History Social Habit Start Date Stop Date Quantity Comments Source History SDOH Alcohol Std Drinks [facility] History SDOH Alcohol Binge [facility] History SDOH Alcohol Frequency [facility] Exposure to SARS-CoV-2 (event) 2021-11-26 00:00:00 2021-12-06 12:55:00 Not sure [facility] Alcohol intake 2021-12-06 00:00:00 2021-12-06 00:00:00 Current drinker of alcohol (finding) [facility] Alcohol Comment 2016-11-22 00:00:00 2016-11-22 00:00:00 Daily [facility] Tobacco use and exposure 2016-11-22 00:00:00 2016-11-22 00:00:00 Smokeless tobacco non-user [facility] Sex Assigned At 1985 00:00:00 1985 00:00:00 [facility] Smoking Status Start Date Stop Date Source Never smoked tobacco [facility] Medications Ordered Medication Name Filled Medication Name Start Date Stop Date Current Medication? Ordering Clinician Indication Dosage Frequency Signature (SIG) Comments Components Source lisinopriL (PRINIVIL,Z ESTRIL) tablet 20 mg 12-07 14:00: 00 Yes 20mg 20 mg, Oral, DAILY, First dose on Sat12/07/21 at 0900, Until Discontinu ed, Routine [facility] HYDROcodone -acetaminop hen (NORCO) 10-325 mg tablet 1 tablet 12-06 17:15: 00 12-06 16:12 :00 No 1{tbl} 1 tablet, Oral, ONCE, 1 dose, On Sat12/06/21 at 1215, Routine [facility] carvediloL (COREG) tablet 25 mg 12-06 17:15: 00 12-06 16:12 :00 No 25mg 25 mg, Oral, ONCE, 1 dose, On Sat12/06/21 at 1215, Routine [facility] methylpredn isolone sod succ (SOLU-MEDRO L) injection 125 mg 12-06 16:45: 00 12-06 16:09 :00 No 125mg 125 mg, Intramuscu lar, ONCE, 1 dose, On Sat12/06/21 at 1145, REGINA [facility] acetaminoph en-codeine 300-30 mg tablet 12-06 00:00: 00 Yes [id number] 1{tbl} Take 1 tablet by mouth every 4 (four) hours as needed for Pain (scale 4-6). Indication s: acute pain [facility] predniSONE 20 mg tablet 12-06 00:00: 00 Yes [id number] 1 PO BID x 4 days [facility] aspirin 81 mg chewable tablet 09-14 00:00: 00 Yes [id number] 81mg Take 1 tablet by mouth daily. [facility] atorvastati n 40 mg tablet 09-14 00:00: 00 Yes [id number] 40mg Take 1 tablet by mouth at bedtime. [facility] carvediloL 25 mg tablet 09-14 00:00: 00 Yes [id number] 37.5mg Take 1.5 tablets by mouth 2 (two) times daily with meals. [facility] furosemide 40 mg tablet 09-14 00:00: 00 Yes [id number] 40mg Take 1 tablet by mouth every morning and evening. [facility] lisinopriL 10 mg tablet 09-14 00:00: 00 Yes [id number] 30mg Take 3 tablets by mouth daily. [facility] spironolact one 25 mg tablet 09-14 00:00: 00 Yes [id number] 25mg Take 1 tablet by mouth daily. [facility] aspirin 81 mg chewable tablet 08-22 00:00: 00 09-14 00:00 :00 No [id number] 81mg Take 1 tablet by mouth daily for 180 days. [facility] lisinopriL 10 mg tablet 08-22 00:00: 00 09-14 00:00 :00 No [id number] 30mg Take 3 tablets by mouth daily for 180 days. [facility] spironolact one 25 mg tablet 08-22 00:00: 00 09-14 00:00 :00 No [id number] 25mg Take 1 tablet by mouth daily for 180 days. [facility] carvediloL (COREG) tablet 37.5 mg 08-21 22:00: 00 Yes 37.5mg 37.5 mg, Oral, BID MEALS, First dose (after last modificati on) on Sat08/21/21 at 1700, Until Discontinu ed, Routine [facility] lisinopriL (PRINIVIL,Z ESTRIL) tablet 30 mg 08-21 14:00: 00 Yes 30mg 30 mg, Oral, DAILY, First dose (after last modificati on) on Sat08/21/21 at 0900, Until Discontinu ed, Routine [facility] magnesium oxide (MAG-OX 400) tablet 400 mg 08-21 13:45: 00 08-21 13:20 :00 No 400mg 400 mg, Oral, ONCE, 1 dose, On Sat08/21/21 at 0845, Routine [facility] amLODIPine 10 mg tablet 08-21 11:33: 41 08-21 00:00 :00 No 10mg Take 10 mg by mouth daily. [facility] hydroCHLORO thiazide 25 mg tablet 08-21 11:33: 41 08-21 00:00 :00 No 25mg Take 25 mg by mouth daily. [facility] ibuprofen 800 mg tablet 08-21 11:33: 41 08-21 00:00 :00 No 800mg Take 800 mg by mouth 2 (two) times daily. [facility] hydrALAZINE (APRESOLINE ) tablet 10 mg 08-21 07:00: 00 08-21 06:05 :00 No 10mg 10 mg, Oral, ONCE, 1 dose, On 08/21/21 at 0200, Routine [facility] atorvastati n 40 mg tablet 08-21 00:00: 00 09-14 00:00 :00 No [id number] 40mg Take 1 tablet by mouth at bedtime for 180 days. [facility] furosemide 40 mg tablet 08-21 00:00: 00 09-14 00:00 :00 No [id number] 40mg Take 1 tablet by mouth every morning and evening for 180 days. [facility] carvediloL 25 mg tablet 08-21 00:00: 00 09-14 00:00 :00 No [id number] 37.5mg Take 1.5 tablets by mouth 2 (two) times daily with meals for 180 days. [facility] carvediloL 25 mg tablet 08-21 00:00: 00 08-21 00:00 :00 No [id number] 25mg Take 1 tablet by mouth 2 (two) times daily with meals for 180 days. [facility] furosemide (LASIX) tablet 40 mg 08-20 14:00: 00 Yes 40mg 40 mg, Oral, QAM+PM, First dose (after last modificati on) on 08/20/21 at 0900, Until Discontinu ed, Routine [facility] lisinopriL (PRINIVIL,Z ESTRIL) tablet 20 mg 08-20 14:00: 00 08-21 11:42 :47 No 20mg 20 mg, Oral, DAILY, First dose (after last modificati on) on 08/20/21 at 0900, Until Discontinu ed, Routine [facility] carvediloL (COREG) tablet 25 mg 08-20 13:00: 00 08-21 17:46 :56 No 25mg 25 mg, Oral, BID MEALS, First dose (after last modificati on) on 08/20/21 at 0800, Until Discontinu ed, Routine [facility] lisinopriL (PRINIVIL,Z ESTRIL) tablet 5 mg 08-19 15:00: 00 08-19 14:30 :00 No 5mg 5 mg, Oral, ONCE, 1 dose, On 08/19/21 at 1000, Routine [facility] carvediloL (COREG) tablet 12.5 mg 08-19 13:00: 00 08-19 22:39 :41 No 12.5mg 12.5 mg, Oral, BID MEALS, First dose (after last modificati on) on 08/19/21 at 0800, Until Discontinu ed, Routine [facility] furosemide (LASIX) injection 40 mg 08-19 01:00: 00 08-19 17:31 :11 No 40mg 40 mg, Slow IV Push, Q12H, First dose on Sat08/18/21 at 2000, Until Discontinu ed, Routine [facility] hydrALAZINE (APRESOLINE ) tablet 25 mg 08-18 21:47: 07 Yes 25mg 25 mg, Oral, Q6HPRN, Starting on Sat08/18/21 at 1647, Until Discontinu ed, Routine, SBP >180 [facility] lisinopriL (PRINIVIL,Z ESTRIL) tablet 10 mg 08-18 18:15: 00 08-18 18:14 :00 No 10mg 10 mg, Oral, DAILY, 1 dose, First dose on Sat08/18/21 at 1315, Routine [facility] lisinopriL (PRINIVIL,Z ESTRIL) tablet 10 mg 08-18 16:00: 00 08-19 13:47 :35 No 10mg 10 mg, Oral, DAILY, First dose on Sat08/18/21 at 1100, Until Discontinu ed, Routine [facility] spironolact one (ALDACTONE) tablet 25 mg 08-18 14:00: 00 Yes 25mg 25 mg, Oral, DAILY, First dose on Sat08/18/21 at 0900, Until Discontinu ed, Routine [facility] aspirin chewable tablet 81 mg 08-18 14:00: 00 Yes 81mg 81 mg, Oral, DAILY, First dose on Sat08/18/21 at 0900, Until Discontinu ed, Routine [facility] furosemide (LASIX) tablet 40 mg 08-18 14:00: 00 08-18 16:18 :32 No 40mg 40 mg, Oral, QAM+PM, First dose on Sat08/18/21 at 0900, Until Discontinu ed, Routine [facility] amLODIPine (NORVASC) tablet 10 mg 08-18 12:00: 00 08-18 11:05 :00 No 10mg 10 mg, Oral, ONCE, 1 dose, On Sat08/18/21 at 0700, Routine [facility] atorvastati n (LIPITOR) tablet 40 mg 08-18 02:00: 00 Yes 40mg 40 mg, Oral, QHS, First dose on Sat08/17/21 at 2100, Until Discontinu ed, Routine [facility] heparin (porcine) injection 5,000 Units 08-18 01:00: 00 Yes 5000U 5,000 Units, Subcutaneo us, Q12H, First dose on Sat08/17/21 at 2000, Until Discontinu ed, Routine [facility] hydrALAZINE (APRESOLINE ) tablet 10 mg 08-17 22:45: 00 08-17 23:51 :00 No 10mg 10 mg, Oral, ONCE, 1 dose, On Sat08/17/21 at 1745, Routine [facility] hydrALAZINE (APRESOLINE ) tablet 10 mg 08-17 21:45: 54 08-18 21:47 :24 No 10mg 10 mg, Oral, Q6HPRN, Starting on Sat08/17/21 at 1645, Until Sat08/18/21 at 1647, Routine, SBP >180 [facility] sulfur hexafluorid e microsphr (LUMASON) injection 5 mL 08-17 20:45: 00 08-17 20:45 :00 No [id number] 5mL 5 mL, Intravenou s, ONCE, 1 dose, On Sat08/17/21 at 1545, Routine
team member approving Restricted medication : DEZ QIU [facility] magnesium sulfate in water 4 gram/50 mL (8 %) IV Piggyback 4 g 08-17 18:15: 00 08-17 18:29 :00 No 4g 4 g, IV Piggyback, ONCE, 1 dose, On Sat08/17/21 at 1315, Routine [facility] KCL (KLOR-CON M20) tablet 40 mEq 08-17 18:15: 00 08-17 18:10 :00 No 40meq 40 mEq, Oral, ONCE, 1 dose, On Sat08/17/21 at 1315, Routine [facility] furosemide (LASIX) injection 40 mg 08-17 17:15: 00 08-18 12:42 :25 No 40mg 40 mg, Slow IV Push, Q12H, First dose on Sat08/17/21 at 1215, Until Discontinu ed, Routine [facility] acetaminoph en (TYLENOL) tablet 650 mg 08-17 14:09: 58 Yes 650mg 650 mg, Oral, Q6HPRN, Starting on Sat08/17/21 at 0909, Until Discontinu ed, Routine, Pain (scale 1-3) [facility] amLODIPine 10 mg tablet 08-17 09:16: 15 Yes 10mg Take 10 mg by mouth daily. [facility] hydroCHLORO thiazide 25 mg tablet 08-17 09:16: 15 Yes 25mg Take 25 mg by mouth daily. [facility] ibuprofen 800 mg tablet 08-17 09:16: 15 Yes 800mg Take 800 mg by mouth 2 (two) times daily. [facility] Vital Signs Vital Name Observation Time Observation Value Comments S qi Systolic blood pressure 2021-12-06 17:40:07 158 mm[Hg] [facility] Diastolic blood pressure 2021-12-06 17:40:07 105 mm[Hg] [facility] Heart rate 2021-12-06 15:43:00 91 /[facility] Respiratory rate 2021-12-06 15:43:00 20 /min [facility] Oxygen saturation in Arterial blood by Pulse oximetry 2021-12-06 15:43:00 97 /min [facility] Body temperature 2021-12-06 14:49:00 36.61 Anastasiia [facility] Body height 2021-12-06 14:49:00 182.9 cm [facility] Body weight 2021-12-06 14:49:00 99.791 kg [facility] BMI 2021-12-06 14:49:00 29.84 kg/m2 [facility] Systolic blood pressure 2021-08-21 20:39:00 143 mm[Hg] [facility] Diastolic blood pressure 2021-08-21 20:39:00 104 mm[Hg] [facility] Heart rate 2021-08-21 20:39:00 79 /min [facility] Body temperature 2021-08-21 20:39:00 36 Anastasiia [facility] Respiratory rate 2021-08-21 20:39:00 18 /min [facility] Oxygen saturation in Arterial blood by Pulse oximetry 2021-08-21 20:39:00 99 /min [facility] Body weight 2021-08-21 10:57:00 104.055 kg [facility] BMI 2021-08-21 10:57:00 31.11 kg/m2 [facility] Body height 2021-08-18 10:31:00 182.9 cm [facility] Procedures Procedure Date / Time Performed Performing Clinician Source NOTICE OF PRIVACY PRACTICES 2021-12-06 14:38:21 Doctor Unassigned, [place] [facility] CONSENT/REFUSAL FOR DIAGNOSIS AND TREATMENT 2021-12-06 14:38:03 Doctor Unassigned, [place] [facility] AUTHORIZATION FOR RELEASE OF PHI 2021-09-01 05:01:00 Doctor Unassigned, [place] [facility] MAGNESIUM 2021-08-21 08:42:00 Eryn Cowart [facility] BASIC METABOLIC PANEL (NA, K, CL, CO2, GLUCOSE, BUN, CREATININE, CA) 2021-08-21 08:42[facility]00 [facility] 2021-08-21 08:42:00 Gaston Elizabeth [facility] HB ECG ROUTINE & RHYTHM STRIP 2021-08-20 13:02:55 [facility] 2021-08-20 09:22:00 Anca [facility] BASIC METABOLIC PANEL (NA, K, CL, CO2, GLUCOSE, BUN, CREATININE, CA) 2021-08-20 09:22:00 Anca [facility] CBC WITH DIFF 2021-08-20 09:22:00 [facility] RHYTHM STRIP 2021-08-19 13:08:08 [facility] 2021-08-19 10:21:00 Gaston Elizabeth [facility] BASIC METABOLIC PANEL (NA, K, CL, CO2, GLUCOSE, BUN, CREATININE, CA) 2021-08-19 10:21:00 [facility] (NA, K, CL, CO2, GLUCOSE, BUN, CREATININE, CA) 2021-08-18 19:41:00 [facility]OUTINE & RHYTHM STRIP 2021-08-18 14:50:24 [facility] 2021-08-18 09:10:00 Eryn Cowart [facility] BASIC METABOLIC PANEL (NA, K, CL, CO2, GLUCOSE, BUN, CREATININE, CA) 2021-08-18 09:10:00 [facility] WITH DIFF 2021-08-18 09:10[facility] 2021-08-17 23:58:00 Supa [facility] TRANSTHORACIC ECHO (TTE) COMPLETE W/ CONTRAST 2021-08-17 18:53:00 Supa [facility] PHOSPHORUS 2021-08-17 15:43:00 Supa [facility] MAGNESIUM 2021-08-17 15:43:00 Supa [facility] FERRITIN SERUM 2021-08-17 15:43:00 Eryn Cowart [facility] TROPONIN I 2021-08-17 15:43:00 Supa [facility] THYROID STIMULATING HORMONE 2021-08-17 15:43:00 Supa [facility] HEPATIC FUNCTION PANEL (26009) (ALB,T.PRO,BILI T,BU/BC,ALT,AST,ALK PHOS) 2021-08-17 15:43:00 Spua [facility] BASIC METABOLIC PANEL (NA, K, CL, CO2, GLUCOSE, BUN, CREATININE, CA) 2021-08-17 15:43:00 Supa [facility] IRON PANEL 2021-08-17 15:43:00 Supa [facility] CBC WITH DIFF 2021-08-17 15:43:00 Supa [facility] GLYCOSYLATED HEMOGLOBIN (A1C) 2021-08-17 15:43:00 Supa [facility] N-TERMINAL PRO-BNP 2021-08-17 15:43:00 Supa [facility] XR CHEST 1 VW 2021-08-17 15:10:00 Supa [facility] Encounters Start Date/Time End Date/Time Encounter Type Admission Type Attending [facility] Facility Care Department Encounter ID Source 2024-03-30 10:06:11 2024-03-30 10:06:11 Outpatient [facility] [id number] 2022-08-17 00:00:2022-08-17 00:00:00 Refill Taimonie [facility] 1.2840.114 350.1.13.10 4.2.7.2.686 [id number] [facility] 2021-12-06 09:51:00 2021-12-06 13:09:00 Emergency X BRIGHT, Tameka [facility] E[facility] [id number] [facility] 2021-12-06 09:51:00 2021-12-06 13:09:00 Emergency BrightTameka velezge [facility] 1.2840.114 350.1.13.10 4.2.7.2.686 [id number] [facility] 2021-12-06 00:00:00 2021-12-06 00:00:00 Orders Only Doctor Unassigned, [place] [facility] 1.2840.114 350.1.13.10 4.2.7.2.686 [id number] [facility] 2021-09-14 00:00:00 2021-09-14 00:00:00 Telephone Ciarageraldmonie [facility] 1.2840.114 350.1.13.10 4.2.7.2.686 [id number] [facility] 2021-09-12 00:00:00 2021-09-12 00:00:00 [facility] 1.2840.114 350.1.13.10 4.2.7.2.686 [id number] [facility] 2021-09-01 00:00:00 2021-09-01 00:00:00 Orders Only Doctor Unassigned, [place] [facility] 1.2840.114 350.1.13.10 4.2.7.2.686 [id number] [facility] 2021-09-01 00:00:00 2021-09-01 00:00:00 [facility] [id number] 350.1.13.10 4.2.7.2.686 [id number] [facility] 2021-08-30 00:00:00 2021-08-30 00:00:00 Telephone [facility] [id number] 350.1.13.10 4.2.7.2.686 [id number] [facility] 2021-08-22 00:00:00 2021-08-22 00:00:00 Transition of Care Sherrell Neumann [facility] [id number] 350.1.13.10 4.2.7.2.686 [id number] [facility] 2021-08-17 08:35:00 2021-08-21 17:42:00 Inpatient U DIMITRIOS ABEL [facility] [id number] [facility] 2021-08-17 08:35:00 2021-08-21 17:42:00 Hospital Encounter Cipriano Denisdarlene MainahDimitrios Douglass [facility] 1.2840.114 350.1.13.10 4.2.7.2.686 [id number] [facility] 2021-08-18 00:00:00 2021-08-18 00:00:00 Telephone Dimitrios Abel [facility] [id number] 350.1.13.10 4.2.7.2.686 [id number] [facility] Results Test Description Test Time Test Comments Results Result Co mments Source [facility] (NA, K, CL, CO2, GLUCOSE, BUN, CREATININE, CA)2021-08-21 10:07:34* Test Item Value Reference Range Interpretation Comme nts NA (test code = 8136573735) 135 mmol/L 135-145 K (test code = 0232686293) 4.4 mmol/L 3.5-5.0 CL (test code = 9135843113) 102 mmol/L 98-108 CO2 TOTAL (test code = 2823667510) 26 mmol/L 23-31 AGAP (test code = 6816725214) 2-16 BUN (test code = 0249625760) 27 mg/dL 7-23 H GLUCOSE (test code = 8950460413) 104 mg/dL 70-110 CREATININE (test code = 3731351209) 1.49 mg/dL 0.60-1.25 H CALCIUM (test code = 7506115798) 9.0 mg/dL 8.6-10.6 eGFR (test code = 0095798434) mL/min/1.73m2 EBEN (test code = EBEN) Association [...] imaging tests). Lab Interpretation (test code = 66593-8) [facility]normal [facility] 10:07:34* Test Item Value Reference Range Interpretation Comme nts MAGNESIUM (test code = 9757607592) 1.9 mg/dL 1.7-2.4 Lab Interpretation (test cod e = 54977-9) Normal [facility] (NA, K, CL, CO2, GLUCOSE, BUN, CREATININE, CA)2021-08-20 10:22:59* Test Item Value Reference Range Interpretation Comme nts NA (test code = 3652882609) 137 mmol/L 135-145 K (test code = 4236179806) 4.4 mmol/L 3.5-5.0 CL (test code = 8881870691) 102 mmol/L 98-108 CO2 TOTAL (test code = 4728566759) 26 mmol/L 23-31 AGAP (test code = 6437601839) 2-16 BUN (test code = 6160833854) 31 mg/dL 7-23 H GLUCOSE (test code = 6238379666) 119 mg/dL 70-110 H CREATININE (test code = 6984444035) 1.56 mg/dL 0.60-1.25 H CALCIUM (test code = 1475361109) 9.1 mg/dL 8.6-10.6 eGFR (test code = 7619150541) mL/min/1.73m2 EBEN (test code = EBEN) Association [...] imaging tests). Lab Interpretation (test code = 74837-5) Abnormal [facility] 10:22:59* Test Item Value Reference Range Interpretation Comme nts MAGNESIUM (test code = 9766636459) 2.1 mg/dL 1.7-2.4 Lab Interpretation (test cod e = 45486-8) Normal [facility] WITH [id number] 09:42:15* Test Item Value Reference Range Interpretation Comme nts WBC (test code = 6690-2) See_Comment H [Automated [employer]] The system which generated this result transmitted reference range: 4.20 - 10.70 10*3/?L. The reference range was not used to interpret this result as normal/abnormal. RBC (test code = 789-8) See_Comment [Automated [employer]] The system which generated this result transmitted [...] 32.8 g/dL 31.2-35.0 RDW-SD (test code = 23219-7) 39.3 fL 38.5-51.6 RDW-CV (test code = 788-0) 12.5 % 12.1-15.4 PLT (test code = 777-3) See_Comment H [Automated [employer]] The system which generated this result transmitted reference range: 150 - 328 10*3/?L. The reference range was not used to interpret this result as normal/abnormal. MPV (test code = 86572-7) 9.3 fL 9.8-13.0 L NRBC/100 WBC (test code = 8477523461) See_Comment [Automated [employer]] The system which generated this result transmitted reference range: 0.0 - 10.0 /100 WBCs. The reference range was not used to interpret this result as normal/abnormal. NRBC x10^3 (test code = 6013729428) <0.01 See_Comment [Automated [employer]] The system which generated this result transmitted reference range: 10*3/?L. The reference range was not used to interpret this result as normal/abnormal. GRAN MAT (NEUT) % (test code = 770-8) 60.5 % IMM GRAN % (test code = 9893910869) 0.30 % LYMPH % (test code = 736-9) 26.7 % MONO % (test code = 5905-5) 8.3 % EOS % (test code = 713-8) 3.4 % BASO % (test code = 706-2) 0.8 % GRAN MAT x10^3(ANC) (test code = 9831507166) 7.17 10*3/uL 1.99-6.95 H IMM GRAN x10^3 (test code = 8695166333) 0.03 10*3/uL 0.00-0.06 LYMPH x10^3 (test code = 731-0) 3.16 10*3/uL 1.09-3.23 MONO x10^3 (test code = 742-7) 0.98 10*3/uL 0.36-1.02 EOS x10^3 (test code = 711-2) 0.40 10*3/uL 0.06-0.53 BASO x10^3 (test code = 704-7) 0.10 10*3/uL 0.01-0.09 H Lab Interpretation (test code = 27124-8) Abnormal [facility] (NA, K, CL, CO2, GLUCOSE, BUN, CREATININE, CA)2021-08-19 10:52:12* Test Item Value Reference Range Interpretation Comme nts NA (test code = 0393611405) 136 mmol/L 135-145 K (test code = 5336580511) 3.8 mmol/L 3.5-5.0 CL (test code = 7661826275) 100 mmol/L 98-108 CO2 TOTAL (test code = 8082908580) 29 mmol/L 23-31 AGAP (test code = 9494512372) 2-16 BUN (test code = 5109634437) 32 mg/dL 7-23 H GLUCOSE (test code = 1204162821) 115 mg/dL 70-110 H CREATININE (test code = 2661342567) 1.67 mg/dL 0.60-1.25 H CALCIUM (test code = 1990017514) 9.1 mg/dL 8.6-10.6 eGFR (test code = 5696000827) mL/min/1.73m2 EBEN (test code = EBEN) Association [...] imaging tests). Lab Interpretation (test code = 86627-2) [facility]normal [facility] 10:52:12* Test Item Value Reference Range Interpretation Comme nts MAGNESIUM (test code = 0521327673) 1.9 mg/dL 1.7-2.4 Lab Interpretation (test cod e = 47551-5) Normal [facility] (NA, K, CL, CO2, GLUCOSE, BUN, CREATININE, CA)2021-08-18 21:19:06* Test Item Value Reference Range Interpretation Comme nts NA (test code = 5820400663) 135 mmol/L 135-145 K (test code = 3115246820) 3.9 mmol/L 3.5-5.0 CL (test code = 9411437250) 98 mmol/L 98-108 CO2 TOTAL (test code = 8139834086) 30 mmol/L 23-31 AGAP (test code = 2390007718) 2-16 BUN (test code = 7470975729) 29 mg/dL 7-23 H GLUCOSE (test code = 5891308034) 121 mg/dL 70-110 H CREATININE (test code = 0532672590) 1.58 mg/dL 0.60-1.25 H CALCIUM (test code = 7936522172) 8.9 mg/dL 8.6-10.6 eGFR (test code = 5207148052) mL/min/1.73m2 EBEN (test code = EBEN) Association [...] imaging tests). Lab Interpretation (test code = 53042-3) Abnormal [facility] METABOLIC PANEL (NA, K, CL, CO2, GLUCOSE, BUN, CREATININE, CA)2021-08-18 10:04:44* Test Item Value Reference Range Interpretation Comme nts NA (test code = 1246281905) 135 mmol/L 135-145 K (test code = 0879470152) 4.0 mmol/L 3.5-5.0 Slight hemolysis CL (test code = 3411008356) 101 mmol/L 98-108 CO2 TOTAL (test code = 1057628044) 29 mmol/L 23-31 AGAP (test code = 3499628984) 2-16 BUN (test code = 5981841917) 32 mg/dL 7-23 H Slight hemolysis GLUCOSE (test code = 5111429429) 114 mg/dL 70-110 H CREATININE (test code = 1323154926) 1.54 mg/dL 0.60-1.25 H CALCIUM (test code = 0041169994) 8.8 mg/dL 8.6-10.6 eGFR (test code = 9719729209) mL/min/1.73m2 EBEN (test code = EBEN) Association [...] imaging tests). Lab Interpretation (test code = 33876-1) [facility]:04:[facility]* Test Item Value Reference Range Interpretation Comme nts MAGNESIUM (test code = 5922329481) 2.2 mg/dL 1.7-2.4 Lab Interpretation (test cod e = 07164-3) [facility] [id number] 09:24:38* Test Item Value Reference Range Interpretation Comme nts WBC (test code = 6690-2) See_Comment [Automated [employer]] The system which generated this result transmitted reference range: 4.20 - 10.70 10*3/?L. The reference range was not used to interpret this result as normal/abnormal. RBC (test code = 789-8) See_Comment [Automated [employer]] The system which generated this result transmitted [...] 33.3 g/dL 31.2-35.0 RDW-SD (test code = 81196-3) 39.1 fL 38.5-51.6 RDW-CV (test code = 788-0) 12.6 % 12.1-15.4 PLT (test code = 777-3) See_Comment H [Automated messa ge] The system which generated this result transmitted reference range: 150 - 328 10*3/?L. The reference range was not used to interpret this result as normal/abnormal. MPV (test code = 84723-7) 9.5 fL 9.8-13.0 L NRBC/100 WBC (test code = 3102601590) See_Comment [Automated [employer] ssage] The system which generated this result transmitted reference range: 0.0 - 10.0 /100 WBCs. The reference range was not used to interpret this result as normal/abnormal. NRBC x10^3 (test code = 5850102138) <0.01 See_Comment [Automated messa ge] The system which generated this result transmitted reference range: 10*3/?L. The reference range was not used to interpret this result as normal/abnormal. GRAN MAT (NEUT) % (test code = 770-8) 65.3 % IMM GRAN % (test code = 1341764584) 0.20 % LYMPH % (test code = 736-9) 23.3 % MONO % (test code = 5905-5) 7.0 % EOS % (test code = 713-8) 3.5 % BASO % (test code = 706-2) 0.7 % GRAN MAT x10^3(ANC) (test code = 6545678636) 6.63 10*3/uL 1.99-6.95 IMM GRAN x10^3 (test code = 3508688810) <0.03 0.00-0.06 LYMPH x10^3 (test code = 731-0) 2.36 10*3/uL 1.09-3.23 MONO x10^3 (test code = 742-7) 0.71 10*3/uL 0.36-1.02 EOS x10^3 (test code = 711-2) 0.35 10*3/uL 0.06-0.53 BASO x10^3 (test code = 704-7) 0.07 10*3/uL 0.01-0.09 Lab Interpretation (test code = 68427-4) [facility]A1C)2021-08-18 02:37:07* Test Item Value Reference Range Interpretation Comme nts HGB A1C (test code = 4548-4) 5.8 % 4.0-5.7 H EBEN (test code = EBEN) Reference RangesNormal: <5.7%Prediabetes: 5.7 - 6.4%Diabetes: > 6.5% Lab Interpretation (test code = 30009-6) [facility] [id number] 01:03:37* Test Item Value Reference Range Interpretation Comments TROPONIN I (test code = 6518958779) 0.101 ng/mL See_Comment H [Automated message] The [...] of biotin. Lab Interpretation (test code = 95539-3) [facility]normal [facility] ([facility]2021-08-17 22:14:20* Test Item Value Reference Range Interpretation Comme nts Ao root annulus (test code = 3818687396) 3.3 cm Ao root diam (test code = 5821626894) 3.30 cm Aortic root (test code = 7602701586) 3.3 cm LA size (test code = 0095987013) 3.7 cm LVOT diameter (test code = 7475335343) 2.00 cm LVIDD (test code = 1462117702) 5.90 cm IVS (test code = 5125322235) 1.26 cm Interventricular Septum Diastolic Thickness by 2D (test code = 6965565) 1.26 cm LVPWD (test code = 7228289492) 1.19 cm PW (test code = 2269524155) 1.19 cm 0.6-1.1 EF(Teich) (test code = 7648615410) 46.60 % LVIDS (test code = 7983542081) 4.50 cm FS (test code = 1227719767) 24 % EF - 2D (test code = 09830564) 46.60 % LAV(MOD-sp4) (test code = 5484803963) 65.30 mL MV Peak E Narciso (test code = 0043837782) 126.4 cm/s E wave decelartion time (test code = 8777350629) 0.14 s MV Prop V (test code = 7671304071) 35.00 cm/s LVOT stroke volume (test code = 8188324500) 45.10 cm3 LVOT peak narciso (test code = 8942798808) 90.0 cm/s LVOT mn grad (test code = 3239095544) mmHg AV LVOT peak gradient (test code = 6082266254) mmHg LVOT peak VTI (test code = 9121088708) 14.4 cm LV V1 mean (test code = 6735675099) 63.00 cm/s Aortic valve mean velocity (test code = 3504666750) 76.8 cm/s Ao peak narciso (test code = 6440121704) 125.5 cm/s Ao VTI (test code = 6623963388) 17.0 cm AV area by cont VTI (test code = 2494721110) 2.6 cm2 AV area peak narciso (test code = 6460356064) 2.2 cm2 Ao max PG (test code = 9454766688) 6.30 mm[Hg] AV peak gradient (test code = 5069799690) mmHg AV valve area (test code = 2621774734) 2.60 cm2 AV mean gradient (test code = 3545981353) mmHg TR Peak Narciso (test code = 7123867104) 119.4 cm/s Triscuspid Valve Regurgitation Peak Gradient (test code = 2397540513) mmHg Tapse (test code = 6078617587) 1.95 cm LA volume (BP) (test code = 7237859838) 73.5 mL LAV(MOD-sp2) (test code = 3785593908) 74.00 mL LA Volume Index (BP) (test code = 9554954194) 32.5 mL/m2 LV Diastolic Volume (BP) (test code = 9290867449) 232.2 mL EF(MOD-bp) (test code = 4785360235) 33.10 % LV Systolic Volume (BP) (test code = 9514909858) 155.2 mL SV(MOD-bp) (test code = 3451199543) 76.90 mL EF (test code = 5957996105) 33 % Left Ventricular Stroke Volume by 2-D Biplane-MOD (test code = 5713065) 76.9 mL Radiology Study observation (narrative) (test code = 05493-9) EBEN (test code = EBEN) ?Left?Ventricle: Left [...] (104.3 kg) 2.3 sq meters 183/126 82 [facility]39[facility] (ALB,T.PRO,BILI T,BU/BC,ALT,AST,ALK PHOS)2021-08-17 17:59:20* Test Item Value Reference Range Interpretation Comme nts TOTAL BILI (test code = 3747459162) 0.4 mg/dL 0.1-1.1 BILI UNCON (test code = 0968676429) 0.4 mg/dL 0.1-1.1 BILI CONJ (test code = 8100704748) 0.0 mg/dL 0.0-0.3 T PROTEIN (test code = 8824144063) 6.4 g/dL 6.3-8.2 ALBUMIN (test code = 8547458682) 3.7 g/dL 3.5-5.0 ALK PHOS (test code = 0747412344) 64 U/L 34-122 ALTv (test code = 1742-6) 39 U/L 5-50 AST(SGOT) (test code = 4860100030) 30 U/L 13-40 Lab Interpretation (test cod e = 45092-3) Normal [facility] CenterFERRITIN [id number] 17:21:19* Test Item Value Reference Range Interpretation Comme nts FERRITIN (test code = 8248530338) 29.7 ng/mL 18.0-464.0 EBEN (test code = EBEN) Biotin has been reported to cause a negative bias, interpret results relative to patient's use of biotin. Lab Interpretation (test code = 36100-8) Normal [facility] CenterTHYROID STIMULATING [id number] 17:14:24 * Test Item Value Reference Range Interpretation Comme nts TSH (test code = 9076905887) See_Comment [Automated messa ge] The system which generated this result transmitted reference range: 0.45 - 4.70 mIU/L. The reference range was not used to interpret this result as normal/abnormal. Lab Interpretation (test code = 06616-1) Normal [facility] CenterN-TERMINAL [id number] 16:55:55* Test Item Value Reference Range Interpretation Comme nts NT-proBNP (test code = 7508803538) 5070 pg/mL See_Comment H [Automated message] The system which generated this result transmitted reference range: <=125. The reference range was not used to interpret this result as normal/abnormal. EBEN (test code = EBEN) Biotin has been reported to cause a negative bias, interpret results relative to patient's use of biotin. Lab Interpretation (test code = 88067-3) [facility]normal [facility] CenterTR[facility] [id number] 16:55:55* Test Item Value Reference Range Interpretation Comments TROPONIN I (test code = 7218973802) 0.117 ng/mL See_Comment H [Automated message] The [...] of biotin. Lab Interpretation (test code = 73834-0) Abnormal [facility] CenterIRON [id number] 16:52:53* Test Item Value Reference Range Interpretation Comme nts IRON (test code = 4753038388) 51 ug/dL 50-160 TIBC (test code = 0582299708) 298 ug/dL 250-410 % FE SAT (test code = 5412647668) 17 % 20-50 L Lab Interpretation (test cod e = 38253-7) [facility]normal [facility]2022-04-14 16:41:35* Test Item Value Reference Range Interpretation Comme nts MAGNESIUM (test code = 1701328624) 1.6 mg/dL 1.7-2.4 L Lab Interpretation (test cod e = 36983-4) [facility]normal [facility]PHOSPHORUS2022-04-14 16:41:35* Test Item Value Reference Range Interpretation Comme nts PHOSPHORUS (test code = 0651949574) 4.0 mg/dL 2.5-5.0 Lab Interpretation (test cod e = 10468-2) [facility]OL[facility] (NA, K, CL, CO2, GLUCOSE, BUN, CREATININE, CA)2021-08-17 16:41:35* Test Item Value Reference Range Interpretation Comme nts NA (test code = 0090213192) 134 mmol/L 135-145 L K (test code = 3839465680) 3.6 mmol/L 3.5-5.0 CL (test code = 6808020777) 99 mmol/L 98-108 CO2 TOTAL (test code = 8640614510) 32 mmol/L 23-31 H AGAP (test code = 5129683092) 2-16 BUN (test code = 2522241729) 24 mg/dL 7-23 H GLUCOSE (test code = 9466117934) 111 mg/dL 70-110 H CREATININE (test code = 5624877453) 1.60 mg/dL 0.60-1.25 H CALCIUM (test code = 8516733015) 8.8 mg/dL 8.6-10.6 eGFR (test code = 2496977455) mL/min/1.73m2 EBEN (test code = EBEN) Association [...] imaging tests). Lab Interpretation (test code = 98071-1) Abnormal [facility] WITH [id number] 16:00:05* Test Item Value Reference Range Interpretation [...] 33.7 g/dL 31.2-35.0 RDW-SD (test code = 83339-4) 39.5 fL 38.5-51.6 RDW-CV (test code = 788-0) 12.6 % 12.1-15.4 PLT (test code = 777-3) See_Comment H [Automated messa ge] The system which generated this result transmitted reference range: 150 - 328 10*3/?L. The reference range was not used to interpret this result as normal/abnormal. MPV (test code = 95413-0) 9.4 fL 9.8-13.0 L NRBC/100 WBC (test code = 4171482024) See_Comment [Automated [employer] ssage] The system which generated this result transmitted reference range: 0.0 - 10.0 /100 WBCs. The reference range was not used to interpret this result as normal/abnormal. NRBC x10^3 (test code = 9161844607) <0.01 See_Comment [Automated messa ge] The system which generated this result transmitted reference range: 10*3/?L. The reference range was not used to interpret this result as normal/abnormal. GRAN MAT (NEUT) % (test code = 770-8) 65.6 % IMM GRAN % (test code = 4191789635) 0.20 % LYMPH % (test code = 736-9) 23.8 % MONO % (test code = 5905-5) 6.7 % EOS % (test code = 713-8) 3.2 % BASO % (test code = 706-2) 0.5 % GRAN MAT x10^3(ANC) (test code = 4308559593) 6.58 10*3/uL 1.99-6.95 IMM GRAN x10^3 (test code = 7228934786) <0.03 0.00-0.06 LYMPH x10^3 (test code = 731-0) 2.39 10*3/uL 1.09-3.23 MONO x10^3 (test code = 742-7) 0.67 10*3/uL 0.36-1.02 EOS x10^3 (test code = 711-2) 0.32 10*3/uL 0.06-0.53 BASO x10^3 (test code = 704-7) 0.05 10*3/uL 0.01-0.09 Lab Interpretation (test code = 45980-5) [facility]"
[2024-05-21 19:57] LABS: Absolute Basophils 0.1 K/uL (0-0.5); Absolute Eosinophils 0.2 K/uL (0-0.5); Absolute Monocytes 1.7 K/uL (0.1-1.3); Absolute Neutrophil 12.4 K/uL (1.8-8.0); Basophils % 0.7 % (0-1.3); Eosinophils % 1.4 % (0-4.4); Hematocrit 43.9 % (39.6-49.0); Hemoglobin 14.7 g/dL (13.6-17.9); Lymphocytes % 6.6 % (15.3-44.8); MCHC 33.5 g/dL (32.0-36.0); MCV 86.5 fL (80-100); MPV 8.2 fL (7.6-11.3); Monocytes % 10.9 % (3.3-12.3); Neutrophils % 80.4 % (41.7-73.7); Platelets 401 thou/uL (152-406); RBC Red Blood Cell Count 5.08 M/uL (4.33-5.43); Red Cell Distribution Width 14.1 % (12.1-15.2)
[2024-05-21] MEDS ORDERED: KETOROLAC 30 MG/ML INJ ONE (19:57)
[2024-05-21] MEDS ORDERED: dexAMETHasone 10 MG/ML VIAL ONE (19:57)
[2024-05-21] MEDS ORDERED: COLCHICINE 0.6 MG TAB ONE ×2 (19:57→20:59)
[2024-05-21] MEDS ORDERED: ONDANSETRON 4 MG/2 ML VIAL ONE (19:57)
[2024-05-21] MEDS ORDERED: NA CHLORIDE 0.9% 500 ML ONE (19:58)
[2024-05-21] MEDS ORDERED: FAMOTIDINE 20 MG/2 ML VIAL IV ONE (19:58)
[2024-05-21] MEDS ORDERED: MORPHINE 4 MG/ML SYR ONE (19:58)
[2024-05-21 20:15] LABS: Albumin 3.4 g/dL (3.4-5.0); Albumin/Globulin Ratio 0.8 (1.1-1.8); Anion Gap 10.8 mEq/L (5.0-15.0); Bilirubin Total 0.4 mg/dL (0.2-1.0); Globulin 4.5 g/dL (2.3-3.5); Potassium 3.8 mEq/L (3.5-5.1); Protein, Total 7.9 g/dL (6.4-8.2); Uric Acid 10.5 mg/dL (3.5-7.2)
--- NOTE | 2024-05-21 20:37 | EDPHYS ---
Physician Documentation [facility] Name: Ezequiel Padron Age: 39 yrs Sex: Male : 1985 Arrival Date: 05/21/2024 Time: 17:42 Bed 10 Private MD: ED Physician Baldemar Harden HPI: 05/21 20:04 This 39 yrs old Black Male presents to ER via Wheelchair with complaints of Knee Pain - bernabe left, Foot Pain - Both. 20:04 The patient presents with decreased range of motion, pain, that is acute. The bernabe complaints affect the left foot, right foot. Context: The problem was sustained at an unknown location, resulted from GOUT , USUAL FLARE. Onset: The symptoms/episode began/occurred 3 day(s) ago. Modifying factors: The symptoms are alleviated by nothing, elevation of extremity, the symptoms are aggravated by weight bearing, movement. Associated signs and symptoms: The patient has no apparent associated signs or symptoms. Severity of symptoms: At their worst the symptoms were moderate, severe, in the emergency department the symptoms are unchanged. The patient has experienced similar episodes in the past, multiple times. Historical: - Allergies: 18:11 Nitroglycerin; ll1 - PMHx: 18:11 Congestive heart failure; Gout; Hypertensive disorder; ll1 - PSHx: 18:11 R femur; ll1 - Immunization history:: Adult Immunizations. - Infectious Disease History:: Denies. - Social history:: Smoking status: Patient/guardian denies using tobacco, Stopped _ months ago .1. - Family history:: not pertinent. ROS: 20:04 Constitutional: Negative for fever, chills, and weight loss, Eyes: Negative for injury, bernabe pain, redness, and discharge, ENT: Negative for injury, pain, and discharge, Neck: Negative for injury, pain, and swelling, Cardiovascular: Negative for chest pain, palpitations, and edema, Respiratory: Negative for shortness of breath, cough, wheezing, and pleuritic chest pain, Abdomen/GI: Negative for abdominal pain, nausea, vomiting, diarrhea, and constipation, Back: Negative for injury and pain, : Negative for injury, bleeding, discharge, and swelling, Skin: Negative for injury, rash, and discoloration, Neuro: Negative for headache, weakness, numbness, tingling, and seizure, Psych: Negative for depression, anxiety, suicide ideation, homicidal ideation, and hallucinations, Allergy/Immunology: Negative for hives, rash, and allergies, Endocrine: Negative for neck swelling, polydipsia, polyuria, polyphagia, and marked weight changes, Hematologic/Lymphatic: Negative for swollen nodes, abnormal bleeding, and unusual bruising, 20:04 MS/extremity: Positive for decreased range of motion, pain, swelling, of the right foot, left foot and left leg, Exam: 20:04 Constitutional: This is a well developed, well nourished patient who is awake, alert, bernabe and in no acute distress. Head/Face: Normocephalic, atraumatic. Eyes: Pupils equal round and reactive to light, extra-ocular motions intact. Lids and lashes normal. Conjunctiva and sclera are non-icteric and not injected. Cornea within normal limits. Periorbital areas with no swelling, redness, or edema. ENT: Nares patent. No nasal discharge, no septal abnormalities noted. Tympanic membranes are normal and external auditory canals are clear. Oropharynx with no redness, swelling, or masses, exudates, or evidence of obstruction, uvula midline. Mucous membranes moist. Neck: Trachea midline, no thyromegaly or masses palpated, and no cervical lymphadenopathy. Supple, full range of motion without nuchal rigidity, or vertebral point tenderness. No Meningismus. Chest/axilla: Normal chest wall appearance and motion. Nontender with no deformity. No lesions are appreciated. Cardiovascular: Regular rate and rhythm with a normal S1 and S2. No gallops, murmurs, or rubs. Normal PMI, no JVD. No pulse deficits. Respiratory: Lungs have equal breath sounds bilaterally, clear to auscultation and percussion. No rales, rhonchi or wheezes noted. No increased work of breathing, no retractions or nasal flaring. Abdomen/GI: Soft, non-tender, with normal bowel sounds. No distension or tympany. No guarding or rebound. No evidence of tenderness throughout. Back: No spinal tenderness. No costovertebral tenderness. Full range of motion. Male : Normal genitalia with no discharge or lesions. Skin: Warm, dry with normal turgor. Normal color with no rashes, no lesions, and no evidence of cellulitis. Neuro: Awake and alert, GCS 15, oriented to person, place, time, and situation. Cranial nerves II-XII grossly intact. Motor strength 5/5 in all extremities. Sensory grossly intact. Cerebellar exam normal. Normal gait. Psych: Awake, alert, with orientation to person, place and time. Behavior, mood, and affect are within normal limits. 20:04 Musculoskeletal/extremity: Extremities: grossly normal except: noted in the left knee: decreased ROM, swelling, tenderness, noted in the left foot: decreased ROM, pain, noted in the right foot: pain, DVT Exam: negative Homans' sign noted on exam, no appreciated bluish discoloration, no erythema, no increased warmth, pain, swelling, tenderness, that is moderate, of the right foot, left foot and left leg, Vital Signs: 18:12 BP 189 / 124; Pulse 106; Resp 17; Temp 98.5; Pulse Ox 100% ; Weight 99.79 kg; Height 6 ll1 ft. 0 in. ; Pain 10/10; 20:00 BP 169 / 86; Pulse 92; Resp 20; Temp 98; Pulse Ox 100% on R/A; kj2 21:13 BP 168 / 88; Pulse 90; Resp 20; Temp 98; Pulse Ox 100% on R/A; kj2 18:12 Body Mass Index 29.84 (99.79 kg, 182.88 cm) ll1 18:12 Pain Scale: Adult ll1 MDM: 18:36 Medical Screening Exam initiated bernabe 20:07 Differential diagnosis: sprain, arthritis, gout, cellulitis. Data reviewed: vital bernabe signs, nurses notes, lab test result(s). Consideration of Admission/Observation Escalation of care including admission/observation considered. I considered the following discharge prescriptions or medication management in the emergency department Medications were administered in the Emergency Department. See MAR. Test considered but Not performed: X-ray: NO X RAYS. Care significantly affected by the following chronic conditions: Hypertension, Congestive Heart Failure, Chronic Kidney Disease, GOUT. 05/21 19:28 Order name: CBC with Diff; Complete Time: 20:36 [facility] 05/21 19:28 Order name: Comprehensive Metabolic Panel; Complete Time: 20:36 [facility] 05/21 19:28 Order name: Uric Acid; Complete Time: 20:36 [facility] 05/21 19:28 Order name: Crutch Training; Complete Time: 21:07 [facility] 05/21 19:50 Order name: Blood Pressure Recheck; Complete Time: 21:07 bernabe Administered Medications: 20:09 Drug: morphine IVP or IV 4 mg IVP once over 4 mins Route: IVP; Infused Over: 4 mins; kj2 Site: left antecubital; 21:07 Follow up: Response: No adverse reaction kj2 20:09 Drug: Ondansetron IVP 4 mg IVP once; over 2 minutes Route: IVP; Site: left antecubital; kj2 21:07 Follow up: Response: No adverse reaction kj2 20:09 Drug: Famotidine IVP 20 mg IVP once; dilute with 10 mL 0.9% NaCl; give over 2 minutes kj2 Route: IVP; Site: left antecubital; 21:07 Follow up: Response: No adverse reaction kj2 20:10 Drug: Ketorolac IVP 30 mg IVP once Route: IVP; Site: left antecubital; kj2 21:09 Follow up: Response: No adverse reaction kj2 20:10 Drug: Decadron - Dexamethasone IVP 10 mg IVP once Route: IVP; Site: left antecubital; kj2 21:08 Follow up: Response: No adverse reaction kj2 20:10 Drug: Colcrys PO 1.2 mg PO once Route: PO; kj2 21:08 Follow up: Response: No adverse reaction kj2 20:11 Drug: NS 0.9% IV 500 ml 500 ml IV at 1 bolus once; to be given as a bolus over 30 kj2 minutes Volume: 500 ml; Route: IV; Rate: 1 bolus; Site: left antecubital; 21:09 Follow up: IV Status: Completed infusion; IV Intake: 500ml kj2 21:07 Drug: Colcrys PO 0.6 mg PO once; GIVE 1 HOUR AFTER 1.2 MG DOSE Route: PO; kj2 21:08 Follow up: Response: No adverse reaction kj2 Disposition Summary: 05/21/24 20:37 Discharge Ordered Notes: Location: Home bernabe Problem: new bernabe Symptoms: have improved bernabe Condition: Stable bernabe Diagnosis - Gout, unspecified bernabe - Idiopathic gout, left ankle and foot bernabe - Idiopathic gout, right ankle and foot bernabe - Unspecified kidney failure - CHRONIC bernabe - Essential (primary) hypertension bernabe Followup: bernabe - With: Private Physician - When: 2 - 3 days - Reason: Recheck today's complaints, Continuance of care, Re-evaluation by your physician Followup: ebrnabe - With: Rafa Danielson MD - When: 2 - 3 days - Reason: Recheck today's complaints, Re-evaluation by your physician Discharge Instructions: - Discharge Summary Sheet bernabe - Gout bernabe - Hypertension, Adult bernabe - Hypertension, Adult, Dqtt-yg-Upkg bernabe - Low-Purine Eating Plan bernabe - Gout, [id number]-[id number] bernabe - How to Take Your Blood Pressure, Ymhp-ey-Tvvi bernabe - Chronic Kidney Disease, Adult, Rvhe-ur-Hsoz bernabe - Managing Your Hypertension bernabe Forms: - Medication Reconciliation Form bernabe - Antibiotic Education bernabe - Prescription Opioid Use bernabe - Patient Portal Instructions [facility] - Leadership Thank You Letter [facility] Prescriptions: - colchicine 0.6 mg Oral tablet - take 2 tablet ORAL route 2 times per day TAKE 2 TABS PO THE 1 TAB 1 HOUR LATER bernabe MAX 3 PER DAY; 15 tablet; Refills: 0, Product Selection Permitted - acetaminophen-codeine 300-30 mg Oral tablet - take 2 tablet ORAL route every 6 hours; 20 tablet; Refills: 0, Product bernabe Selection Permitted - dexamethasone 4 mg Oral tablet - take 1 tablet ORAL route once daily; 3 tablet; Refills: 0, Product Selection bernabe Permitted Signatures: Dispatcher [employer] Baldemar Flower MD MD cha Lewis, Lynsay, RN RN ll1 Deysi Reza RN RN kj2
--- NOTE | 2024-05-21 20:37 | ER ---
Nurse's Notes [facility] Name: Ezequiel Padron Age: 39 yrs Sex: Male : 1985 Arrival Date: 05/21/2024 Time: 17:42 Bed 10 Private MD: Diagnosis: Gout, unspecified;Idiopathic gout, left ankle and foot;Idiopathic gout, right ankle and foot;Unspecified kidney failure-CHRONIC;Essential (primary) hypertension Presentation: 05/21 18:12 Chief complaint: Patient states: B feet pain, and L knee pain for 2 days. States its a ll1 gout flare-up. Coronavirus screen: Client denies travel out of the [place] in the last 14 days. At this time, the client does not indicate any symptoms associated with coronavirus-19. Ebola Screen: Patient denies travel to an Ebola-affected area in the 21 days before illness onset. Initial Sepsis Screen: Does the patient meet any 2 criteria? No. Patient's initial sepsis screen is negative. Does the patient have a suspected source of infection? No. Patient's initial sepsis screen is negative. Risk Assessment: Do you want to hurt yourself or someone else? Patient reports no desire to harm self or others. Onset of symptoms was May 20, 2024. 18:12 Method Of Arrival: Wheelchair ll1 18:12 Acuity: HERMELINDA 3 ll1 Triage Assessment: 18:12 General: Appears uncomfortable, Behavior is calm, cooperative, appropriate for age. ll1 Pain: Complains of pain in right leg and left leg Quality of pain is described as aching. Musculoskeletal: Reports pain in right leg and left leg. Historical: - Allergies: 18:11 Nitroglycerin; ll1 - PMHx: 18:11 Congestive heart failure; Gout; Hypertensive disorder; ll1 - PSHx: 18:11 R femur; ll1 - Immunization history:: Adult Immunizations. - Infectious Disease History:: Denies. - Social history:: Smoking status: Patient/guardian denies using tobacco, Stopped _ months ago .1. - Family history:: not pertinent. Screenin:30 [facility] ED Fall Risk Assessment (Adult) History of falling in the last 3 months, kj2 including since admission No falls in past 3 months (0 pts) Confusion or Disorientation No (0 pts) Intoxicated or Sedated No (0 pts) Impaired Gait No (0 pts) Mobility Assist Device Used No (0 pt) Altered Elimination No (0 pt) Score/Fall Risk Level 0 - 2 = Low Risk Maintained a safe environment, Hourly rounding (assess needs \T\ fall precautionary measures) done. Abuse screen: Denies threats or abuse. Denies injuries from another. Nutritional screening: No deficits noted. Tuberculosis screening: No symptoms or risk factors identified. Assessment: 19:25 General: Appears in no apparent distress. uncomfortable. Pain: Complains of pain in kj2 left knee and left foot and right foot and left leg and right leg Pain currently is 10 out of 10 on a pain scale. Neuro: Level of Consciousness is awake, alert, obeys commands, Oriented to person, place, time, situation. Cardiovascular: Patient's skin is warm and dry. Respiratory: No deficits noted. Airway is patent Respiratory effort is even, unlabored. GI: No signs and/or symptoms were reported involving the gastrointestinal system. : No signs and/or symptoms were reported regarding the genitourinary system. 20:47 Reassessment: Patient appears in no apparent distress at this time. Patient and/or kj2 family updated on plan of care and expected duration. Pain level reassessed. Patient is alert, oriented x 3, equal unlabored respirations, skin warm/dry/pink. Vital Signs: 18:12 BP 189 / 124; Pulse 106; Resp 17; Temp 98.5; Pulse Ox 100% ; Weight 99.79 kg; Height 6 ll1 ft. 0 in. ; Pain 10/10; 20:00 BP 169 / 86; Pulse 92; Resp 20; Temp 98; Pulse Ox 100% on R/A; kj2 21:13 BP 168 / 88; Pulse 90; Resp 20; Temp 98; Pulse Ox 100% on R/A; kj2 18:12 Body Mass Index 29.84 (99.79 kg, 182.88 cm) ll1 18:12 Pain Scale: Adult ll1 ED Course: 17:43 Patient arrived in ED. im 18:13 Triage completed. ll1 18:13 Arm band placed on. ll1 18:36 Baldemar Harden MD is Attending Physician. bernabe 19:30 Patient has correct armband on for positive identification. Bed in low position. Call kj2 light in reach. Provided Education on: call light. 19:32 Deysi Reza, RN is Primary Nurse. kj2 19:49 Inserted saline lock: 20 gauge in right antecubital area, using aseptic technique. af3 Blood collected. Flushed with 10 mL NS. 20:37 Rafa Danielson MD is Referral Physician. bernabe 20:49 No provider procedures requiring assistance completed. kj2 20:49 IV discontinued, intact, bleeding controlled, No redness/swelling at site. Pressure kj2 dressing applied. Administered Medications: 20:09 Drug: morphine IVP or IV 4 mg IVP once over 4 mins Route: IVP; Infused Over: 4 mins; kj2 Site: left antecubital; 21:07 Follow up: Response: No adverse reaction kj2 20:09 Drug: Ondansetron IVP 4 mg IVP once; over 2 minutes Route: IVP; Site: left antecubital; kj2 21:07 Follow up: Response: No adverse reaction kj2 20:09 Drug: Famotidine IVP 20 mg IVP once; dilute with 10 mL 0.9% NaCl; give over 2 minutes kj2 Route: IVP; Site: left antecubital; 21:07 Follow up: Response: No adverse reaction kj2 20:10 Drug: Ketorolac IVP 30 mg IVP once Route: IVP; Site: left antecubital; kj2 21:09 Follow up: Response: No adverse reaction kj2 20:10 Drug: Decadron - Dexamethasone IVP 10 mg IVP once Route: IVP; Site: left antecubital; kj2 21:08 Follow up: Response: No adverse reaction kj2 20:10 Drug: Colcrys PO 1.2 mg PO once Route: PO; kj2 21:08 Follow up: Response: No adverse reaction kj2 20:11 Drug: NS 0.9% IV 500 ml 500 ml IV at 1 bolus once; to be given as a bolus over 30 kj2 minutes Volume: 500 ml; Route: IV; Rate: 1 bolus; Site: left antecubital; 21:09 Follow up: IV Status: Completed infusion; IV Intake: 500ml kj2 21:07 Drug: Colcrys PO 0.6 mg PO once; GIVE 1 HOUR AFTER 1.2 MG DOSE Route: PO; kj2 21:08 Follow up: Response: No adverse reaction kj2 Medication: 19:30 VIS not applicable for this client. kj2 Intake: 21:09 IV: 500ml; Total: 500ml. kj2 Outcome: 20:37 Discharge ordered by MD. kidd 20:49 Discharged to home with crutches, kj2 20:49 Condition: stable 20:49 Discharge instructions given to patient, Instructed on discharge instructions, follow up and referral plans. Demonstrated understanding of instructions, follow-up care, medications, crutch walking, 21:15 Patient left the ED. kj2 Signatures: Baldemar Harden MD MD cha Lewis, Lynsay, RN RN ll1 Rosario Fontanez Krystal, RN RN kj2 Natalia Villa3 Corrections: (The following items were deleted from the chart) 20:10 20:10 Colcrys PO 0.6 mg PO kj2 kj2
[2024-05-22 03:17] VITALS: BP 168/88; TEMP 98; O2SAT 100
== END 2024-05-21 21:15 | disposition home or self-care (01) ==
LOC: ER 17:42
DX: M10.072 Idiopathic gout, left ankle and foot (principal); M10.071 Idiopathic gout, right ankle and foot; I13.0 Hypertensive heart and chronic kidney disease with heart failure and stage 1 through stage 4 chronic kidney disease, or unspecified chronic kidney disease; N18.9 Chronic kidney disease, unspecified; I50.9 Heart failure, unspecified
CPT/HCPCS: 96361; 85025; 36415; 84550; 80053; 96375; 96374; 99284; J1100; J2405; J7040

== ENCOUNTER 2024-06-01 20:22 | Emergency (ER) | payer OTHER ==
--- NOTE | 2024-06-01 20:35 | ER ---
Nurse's Notes [facility] Name: Ezequiel Padron Age: 39 yrs Sex: Male : 1985 Arrival Date: 06/01/2024 Time: 20:22 Bed IW1 Private MD: Diagnosis: Gout, right foot Presentation: 06/01 20:32 Chief complaint: Right foot pain since this morning. Hx of gout, feels similar to hb previous episode. Coronavirus screen: At this time, the client does not indicate any symptoms associated with coronavirus-19. Ebola Screen: No symptoms or risks identified at this time. Initial Sepsis Screen: Does the patient meet any 2 criteria? No. Patient's initial sepsis screen is negative. Does the patient have a suspected source of infection? No. Patient's initial sepsis screen is negative. Risk Assessment: Do you want to hurt yourself or someone else? Patient reports no desire to harm self or others. Onset of symptoms was June 01, 2024. 20:32 Method Of Arrival: Wheelchair hb 20:32 Acuity: HERMELINDA 4 hb Triage Assessment: 20:33 General: Appears in no apparent distress. uncomfortable, Behavior is calm, cooperative. hb Pain: Pain currently is 10 out of 10 on a pain scale. Neuro: Level of Consciousness is awake, alert, obeys commands, Oriented to person, place, time, situation. Cardiovascular: Patient's skin is warm and dry. Respiratory: Respiratory effort is even, unlabored, Respiratory pattern is regular, symmetrical. Musculoskeletal: Reports right foot pain 10/10. Historical: - Allergies: 20:32 Nitroglycerin; hb - PMHx: 20:32 Congestive heart failure; Gout; Hypertensive disorder; hb - PSHx: 20:32 R femur; hb - Immunization history:: Adult Immunizations up to date. - Infectious Disease History:: Denies. - Social history:: Smoking status: Patient denies any tobacco usage or history of. Vital Signs: 20:32 BP 176 / 96; Pulse 80; Resp 16; Temp 97.9; Pulse Ox 100% on R/A; Weight 99.79 kg; hb Height 6 ft. 2 in. ; Pain 10/10; 20:32 Body Mass Index 28.25 (99.79 kg, 187.96 cm) hb 20:32 Pain Scale: Adult ED Course: 20:27 Patient arrived in ED. gm2 20:28 Marisa Barboza MD is Attending Physician. sp3 20:32 Triage completed. hb 20:33 Arm band placed on. hb Administered Medications: 20:52 Not Given (Patient Refused): norco5 mg-325 mg 2 tabs PO once hb Outcome: 20:34 Discharge ordered by . sp3 20:52 Patient left the ED. hb Signatures: Sherrie Medina RN RN hb Marisa Barboza MD MD sp3 Jazzy Villarreal gm2 Corrections: (The following items were deleted from the chart) 20:33 20:32 Chief complaint: Right foot pain since this morning. hb hb
--- NOTE | 2024-06-01 20:35 | EDPHYS ---
Physician Documentation [facility] Name: Ezequiel Padron Age: 39 yrs Sex: Male : 1985 Arrival Date: 06/01/2024 Time: 20:22 Bed IW1 Private MD: ED Physician Marisa Barboza HPI: 06/01 20:32 This 39 yrs old Black Male presents to ER via Unassigned with complaints of Foot Pain. sp3 20:32 39-year-old male with history of hypertension and gout presents with left foot pain, sp3 acute on chronic in nature, consistent with his gout history. Patient is at multiple visits for the same. Patient denies any trauma, fever or any other signs or symptoms on ROS at this time.. Historical: - Allergies: 20:32 Nitroglycerin; hb - PMHx: 20:32 Congestive heart failure; Gout; Hypertensive disorder; hb - PSHx: 20:32 R femur; hb - Immunization history:: Adult Immunizations up to date. - Infectious Disease History:: Denies. - Social history:: Smoking status: Patient denies any tobacco usage or history of. ROS: 20:32 Constitutional: Negative for fever, chills, and weight loss, Eyes: Negative for injury, sp3 pain, redness, and discharge, ENT: Negative for injury, pain, and discharge, Neck: Negative for injury, pain, and swelling, Cardiovascular: Negative for chest pain, palpitations, and edema, Respiratory: Negative for shortness of breath, cough, wheezing, and pleuritic chest pain, Abdomen/GI: Negative for abdominal pain, nausea, vomiting, diarrhea, and constipation, Back: Negative for injury and pain, Skin: Negative for injury, rash, and discoloration, Neuro: Negative for headache, weakness, numbness, tingling, and seizure, Psych: Negative for depression, anxiety, suicide ideation, homicidal ideation, and hallucinations, Allergy/Immunology: Negative for hives, rash, and allergies, Endocrine: Negative for neck swelling, polydipsia, polyuria, polyphagia, and marked weight changes, Hematologic/Lymphatic: Negative for swollen nodes, abnormal bleeding, and unusual bruising, 20:32 All other systems are negative, Exam: 20:33 Constitutional: This is a well developed, well nourished patient who is awake, alert, sp3 and in no acute distress. Head/Face: Normocephalic, atraumatic. Chest/axilla: Normal chest wall appearance and motion. Nontender with no deformity. No lesions are appreciated. Cardiovascular: Regular rate and rhythm with a normal S1 and S2. No gallops, murmurs, or rubs. Normal PMI, no JVD. No pulse deficits. Respiratory: Lungs have equal breath sounds bilaterally, clear to auscultation and percussion. No rales, rhonchi or wheezes noted. No increased work of breathing, no retractions or nasal flaring. Abdomen/GI: Soft, non-tender, with normal bowel sounds. No distension or tympany. No guarding or rebound. No evidence of tenderness throughout. Back: No spinal tenderness. No costovertebral tenderness. Full range of motion. Skin: Warm, dry with normal turgor. Normal color with no rashes, no lesions, and no evidence of cellulitis. Neuro: Awake and alert, GCS 15, oriented to person, place, time, and situation. Cranial nerves II-XII grossly intact. Motor strength 5/5 in all extremities. Sensory grossly intact. Cerebellar exam normal. Normal gait. 20:33 Musculoskeletal/extremity: Right foot first metatarsal pain consistent with gout.. Vital Signs: 20:32 BP 176 / 96; Pulse 80; Resp 16; Temp 97.9; Pulse Ox 100% on R/A; Weight 99.79 kg; hb Height 6 ft. 2 in. ; Pain 10/10; 20:32 Body Mass Index 28.25 (99.79 kg, 187.96 cm) hb 20:32 Pain Scale: Adult hb MDM: 20:29 Medical Screening Exam initiated sp3 20:33 Data reviewed: vital signs, nurses notes. ED course: Gout versus arthritis versus other sp3 injury. Low suspicion on injury. Will administer colchicine, dexamethasone and NSAID and discharge patient home.. 20:51 ED course: Addendum note. Patient demanding "steroid shot" after I have explained to sp3 him that an oral steroid and colchicine will work for his symptoms. Patient started cursing and yelling at the nurse and became very unprofessional. Patient was given his prescriptions and discharged home.. Administered Medications: 20:52 Not Given (Patient Refused): norco5 mg-325 mg 2 tabs PO once hb Disposition Summary: 06/01/24 20:34 Discharge Ordered Notes: Location: Home sp3 Condition: Stable sp3 Diagnosis - Gout, right foot sp3 Followup: sp3 - With: Private Physician - When: Upon discharge from the Emergency Department - Reason: Continuance of care Discharge Instructions: - Discharge Summary Sheet sp3 - Gout sp3 Forms: - Medication Reconciliation Form sp3 - Antibiotic Education sp3 - Prescription Opioid Use sp3 - Patient Portal Instructions sp3 - Leadership Thank You Letter sp3 Prescriptions: - colchicine 0.6 mg Oral capsule - take 2 capsule ORAL route 2 times per day; 15 capsule; Refills: 0, Product sp3 Selection Permitted - Diclofenac Sodium 75 mg Oral Tablet Sustained Release - take 1 tablet ORAL route 2 times per day; 30 tablet; Refills: 0, Product sp3 Selection Permitted - Prednisone 20 mg Oral Tablet - take 2 tablets ORAL route once daily for 5 days; 10 tablet; Refills: 0, Product sp3 Selection Permitted Signatures: Sherrie Medina RN RN Marisa Barboza MD MD sp3
[2024-06-01] MEDS ORDERED: HYDROCODONE/APAP 5/325 MG TAB ONE (20:46)
[2024-06-02 04:53] VITALS: TEMP 98.4; O2SAT 100
[2024-06-02 05:16] VITALS: BP 176/96
--- OUTSIDE RECORDS SUMMARY | 2024-06-03 02:04 | XMS REPORT | Continuity of Care Document ---
Author Name Unknown Address [address] [place] [address] [facility] thconnect Address [address] [place] [address] Care Team Providers Care Senior Litigation Paralegal Name Role Phone Pcp, Patient Does Not Have A Primary Care Physic pat MIGDALIA VILLEGAS Attending Clinician Unavailable MIGDALIA VILLEGAS Attending Clinician Unavailable Migdalia Driver Attending Clinician [phone] Basim Cota MD Attending Clinician + Tameka NOVOA Attending Clinician Unavailable Tameka Garcia Attending Clinician Doctor Unassigned, [place] Attending Clinician Sherrell Chew RN Attending Clinician Unavailable DIMITRIOS ABEL Attending Clinician Dimitrios Kasper MD Attending Clinician [phone] DIMITRIOS ABEL Admitting Clinician Dimitrios Kasper MD Admitting Clinician [phone] Payers Payer Name Policy Type Policy Number Effective Date Expirati on Date Source [facility] [id number] 2024 00:00:00 Problems Condition Name Condition Details Condition Category Status Onset Date Resolution Date Last Treatment Date Treating Clinician Comments Source SOB (shortness of breath) SOB (shortness of breath) Disease Active 4-14 00:00: 00 [facility] Obesity (BMI 30-39.9) Obesity (BMI 30-39.9) Disease Active 7-21 00:00: 00 [facility] Allergies, Adverse Reactions, Alerts Allergy Name Allergy Type Status Severity Reaction(s) Onset Date Inactive Date Treating Clinician Comments Source MORPHINE DRUG INGREDI Active Unknown-Cmnt 8 00:00: 00 [facility] Morphine Propensi ty to adverse reaction s Active Unknown - See comments 12-06 00:00: 00 Patient does not know reaction [facility] NO KNOWN ALLERGIE S Drug Class Active [facility] Social History Social Habit Start Date Stop Date Quantity Comments Source History SDOH Alcohol Std Drinks [facility] History SDOH Alcohol Binge [facility] Alcohol Frequency [facility] Alcoholic beverage intake 2024-06-01 00:00:00 2024-06-01 00:00:00 Current drinker of alcohol (finding) [facility] History of Social function 2024-06-01 00:00:00 2024-06-01 00:00:00 [facility] Exposure to SARS-CoV-2 (event) 2021-11-26 00:00:00 2021-12-06 12:55:00 Not sure [facility] Alcohol intake 2021-12-06 00:00:00 2021-12-06 00:00:00 Current drinker of alcohol (finding) [facility] Alcohol Comment 2016-11-22 00:00:00 2016-11-22 00:00:00 Daily [facility] Tobacco use and exposure 2016-11-22 00:00:00 2016-11-22 00:00:00 Smokeless tobacco non-user [facility] Sex assigned at 1985 00:00:00 1985 00:00:00 [facility] Smoking Status Start Date Stop Date Source Never smoked tobacco [facility] Medications Ordered Medication Name Filled Medication Name Start Date Stop Date Current Medication? Ordering Clinician Indication Dosage Frequency Signature (SIG) Comments Components Source cloNIDine (CATAPRES) tablet 0.1 mg 06-02 04:45: 00 06-02 05:17 :00 No .1mg 0.1 mg, Oral, ONCE, 1 dose, On Sat06/01/24 at 2245, STAT [facility] HYDROcodone -acetaminop hen (NORCO 5) tablet 1 tablet 06-02 04:45: 00 06-02 05:17 :00 No 1{tbl} 1 tablet, Oral, ONCE, 1 dose, On Sat06/01/24 at 2245, [facility] methylpredn isolone sod succ (SOLU-MEDRO L) injection 125 mg 06-02 04:40: 00 06-02 05:18 :00 No 125mg 125 mg, Intramuscu lar, ONCE NOW, 1 dose, On Sat06/01/24 at 2245, [facility] acetaminoph en-codeine 300-30 mg tablet 06-02 00:00: 00 06-10 05:59 :00 Yes [id number] 1{tbl} Take 1 tablet by mouth every 8 (eight) hours as needed for Pain (scale 4-6) for up to 7 days. Indication s: acute pain [facility] lisinopriL (PRINIVIL,Z ESTRIL) tablet 20 mg 12-07 14:00: 00 Yes 20mg 20 mg, Oral, DAILY, First dose on Viktoriya 12/07/21 at 0900, Until Discontinu ed, Routine [facility] HYDROcodone -acetaminop hen (NORCO) 10-325 mg tablet 1 tablet 12-06 17:15: 00 12-06 16:12 :00 No 1{tbl} 1 tablet, Oral, ONCE, 1 dose, On Sat12/06/21 at 1215, Routine [facility] carvediloL (COREG) tablet 25 mg 12-06 17:15: 00 12-06 16:12 :00 No 25mg 25 mg, Oral, ONCE, 1 dose, On Sat12/06/21 at 1215, Routine [facility] methylpredn isolone sod succ (SOLU-MEDRO L) injection 125 mg 12-06 16:45: 00 12-06 16:09 :00 No 125mg 125 mg, Intramuscu lar, ONCE, 1 dose, On Sat12/06/21 at 1145, REGINA [facility] predniSONE 20 mg tablet 12-06 00:00: 00 Yes [id number] 1 PO BID x 4 days [facility] acetaminoph en-codeine 300-30 mg tablet 12-06 00:00: 00 Yes [id number] 1{tbl} Take 1 tablet by mouth every 4 (four) hours as needed for Pain (scale 4-6). Indication s: acute pain [facility] carvediloL 25 mg tablet 09-14 00:00: 00 Yes [id number] 37.5mg Take 1.5 tablets by mouth 2 (two) times daily with meals. [facility] furosemide 40 mg tablet 09-14 00:00: 00 Yes [id number] 40mg Take 1 tablet by mouth every morning and evening. [facility] lisinopriL 10 mg tablet 09-14 00:00: 00 Yes [id number] 30mg Take 3 tablets by mouth daily. [facility] spironolact one 25 mg tablet 09-14 00:00: 00 Yes [id number] 25mg Take 1 tablet by mouth daily. [facility] aspirin 81 mg chewable tablet 09-14 00:00: 00 Yes [id number] 81mg Take 1 tablet by mouth daily. [facility] atorvastati n 40 mg tablet 09-14 00:00: 00 Yes [id number] 40mg Take 1 tablet by mouth at bedtime. [facility] aspirin 81 mg chewable tablet 4-19 00:00: 00 09-14 00:00 :00 No [id number] 81mg Take 1 tablet by mouth daily for 180 days. [facility] lisinopriL 10 mg tablet 08-22 00:00: 00 09-14 00:00 :00 No [id number] 30mg Take 3 tablets by mouth daily for 180 days. [facility] spironolact one 25 mg tablet 08-22 00:00: 00 09-14 00:00 :00 No [id number] 25mg Take 1 tablet by mouth daily for 180 days. [facility] carvediloL (COREG) tablet 37.5 mg 08-21 22:00: 00 Yes 37.5mg 37.5 mg, Oral, BID MEALS, First dose (after last modificati on) on Sat08/21/21 at 1700, Until Discontinu ed, Routine [facility] lisinopriL (PRINIVIL,Z ESTRIL) tablet 30 mg 08-21 14:00: 00 Yes 30mg 30 mg, Oral, DAILY, First dose (after last modificati on) on Sat08/21/21 at 0900, Until Discontinu ed, Routine [facility] magnesium oxide (MAG-OX 400) tablet 400 mg 08-21 13:45: 00 08-21 13:20 :00 No 400mg 400 mg, Oral, ONCE, 1 dose, On Sat08/21/21 at 0845, Routine [facility] amLODIPine 10 mg tablet 08-21 11:33: 41 08-21 00:00 :00 No 10mg Take 10 mg by mouth daily. [facility] hydroCHLORO thiazide 25 mg tablet 08-21 11:33: 41 08-21 00:00 :00 No 25mg Take 25 mg by mouth daily. [facility] ibuprofen 800 mg tablet 08-21 11:33: 41 08-21 00:00 :00 No 800mg Take 800 mg by mouth 2 (two) times daily. [facility] hydrALAZINE (APRESOLINE ) tablet 10 mg 08-21 07:00: 00 08-21 06:05 :00 No 10mg 10 mg, Oral, ONCE, 1 dose, On Sat08/21/21 at 0200, Routine [facility] atorvastati n 40 mg tablet 08-21 00:00: 00 09-14 00:00 :00 No [id number] 40mg Take 1 tablet by mouth at bedtime for 180 days. [facility] furosemide 40 mg tablet 08-21 00:00: 00 09-14 00:00 :00 No [id number] 40mg Take 1 tablet by mouth every morning and evening for 180 days. [facility] carvediloL 25 mg tablet 08-21 00:00: 00 09-14 00:00 :00 No [id number] 37.5mg Take 1.5 tablets by mouth 2 (two) times daily with meals for 180 days. [facility] carvediloL 25 mg tablet 08-21 00:00: 00 08-21 00:00 :00 No [id number] 25mg Take 1 tablet by mouth 2 (two) times daily with meals for 180 days. [facility] furosemide (LASIX) tablet 40 mg 08-20 14:00: 00 Yes 40mg 40 mg, Oral, QAM+PM, First dose (after last modificati on) on Sat08/20/21 at 0900, Until Discontinu ed, Routine [facility] lisinopriL (PRINIVIL,Z ESTRIL) tablet 20 mg 08-20 14:00: 00 08-21 11:42 :47 No 20mg 20 mg, Oral, DAILY, First dose (after last modificati on) on Sat08/20/21 at 0900, Until Discontinu ed, Routine [facility] carvediloL (COREG) tablet 25 mg 08-20 13:00: 00 08-21 17:46 :56 No 25mg 25 mg, Oral, BID MEALS, First dose (after last modificati on) on Sat08/20/21 at 0800, Until Discontinu ed, Routine [facility] lisinopriL (PRINIVIL,Z ESTRIL) tablet 5 mg 08-19 15:00: 00 08-19 14:30 :00 No 5mg 5 mg, Oral, ONCE, 1 dose, On Sat08/19/21 at 1000, Routine [facility] carvediloL (COREG) tablet 12.5 mg 08-19 13:00: 00 08-19 22:39 :41 No 12.5mg 12.5 mg, Oral, BID MEALS, First dose (after last modificati on) on Sat08/19/21 at 0800, Until Discontinu ed, Routine [facility] furosemide (LASIX) injection 40 mg 08-19 01:00: 00 08-19 17:31 :11 No 40mg 40 mg, Slow IV Push, Q12H, First dose on Sat08/18/21 at 2000, Until Discontinu ed, Routine [facility] hydrALAZINE (APRESOLINE ) tablet 25 mg 08-18 21:47: 07 Yes 25mg 25 mg, Oral, Q6HPRN, Starting on Sat08/18/21 at 1647, Until Discontinu ed, Routine, SBP >180 [facility] lisinopriL (PRINIVIL,Z ESTRIL) tablet 10 mg 08-18 18:15: 00 08-18 18:14 :00 No 10mg 10 mg, Oral, DAILY, 1 dose, First dose on Sat08/18/21 at 1315, Routine [facility] lisinopriL (PRINIVIL,Z ESTRIL) tablet 10 mg 08-18 16:00: 00 08-19 13:47 :35 No 10mg 10 mg, Oral, DAILY, First dose on Sat08/18/21 at 1100, Until Discontinu ed, Routine [facility] spironolact one (ALDACTONE) tablet 25 mg 08-18 14:00: 00 Yes 25mg 25 mg, Oral, DAILY, First dose on Sat08/18/21 at 0900, Until Discontinu ed, Routine [facility] aspirin chewable tablet 81 mg 08-18 14:00: 00 Yes 81mg 81 mg, Oral, DAILY, First dose on Sat08/18/21 at 0900, Until Discontinu ed, Routine [facility] furosemide (LASIX) tablet 40 mg 08-18 14:00: 00 08-18 16:18 :32 No 40mg 40 mg, Oral, QAM+PM, First dose on Sat08/18/21 at 0900, Until Discontinu ed, Routine [facility] amLODIPine (NORVASC) tablet 10 mg 08-18 12:00: 00 08-18 11:05 :00 No 10mg 10 mg, Oral, ONCE, 1 dose, On Sat08/18/21 at 0700, Routine [facility] atorvastati n (LIPITOR) tablet 40 mg 08-18 02:00: 00 Yes 40mg 40 mg, Oral, QHS, First dose on Sat08/17/21 at 2100, Until Discontinu ed, Routine [facility] (porcine[facility] injection 5,000 Units 08-18 01:00: 00 Yes 5000U 5,000 Units, Subcutaneo us, Q12H, First dose on Sat08/17/21 at 2000, Until Discontinu ed, Routine [facility] hydrALAZINE (APRESOLINE ) tablet 10 mg 08-17 22:45: 00 08-17 23:51 :00 No 10mg 10 mg, Oral, ONCE, 1 dose, On Sat08/17/21 at 1745, Routine [facility] hydrALAZINE (APRESOLINE ) tablet 10 mg 08-17 21:45: 54 08-18 21:47 :24 No 10mg 10 mg, Oral, Q6HPRN, Starting on Sat08/17/21 at 1645, Until Sat08/18/21 at 1647, Routine, SBP >180 [facility] sulfur hexafluorid e microsphr (LUMASON) injection 5 mL 08-17 20:45: 00 08-17 20:45 :00 No [id number] 5mL 5 mL, Intravenou s, ONCE, 1 dose, On Viktoriya 08/17/21 at 1545, Routine
assembly member approving Restricted medication : DEZ QIU [facility] magnesium sulfate in water 4 gram/50 mL (8 %) IV Piggyback 4 g 08-17 18:15: 00 08-17 18:29 :00 No 4g 4 g, IV Piggyback, ONCE, 1 dose, On Viktoriya 08/17/21 at 1315, Routine [facility] KCL (KLOR-CON M20) tablet 40 mEq 08-17 18:15: 00 08-17 18:10 :00 No 40meq 40 mEq, Oral, ONCE, 1 dose, On Viktoriya 08/17/21 at 1315, Routine [facility] furosemide (LASIX) injection 40 mg 08-17 17:15: 00 08-18 12:42 :25 No 40mg 40 mg, Slow IV Push, Q12H, First dose on Viktoriya 08/17/21 at 1215, Until Discontinu ed, Routine [facility] acetaminoph en (TYLENOL) tablet 650 mg 08-17 14:09: 58 Yes 650mg 650 mg, Oral, Q6HPRN, Starting on Sat08/17/21 at 0909, Until Discontinu ed, Routine, Pain (scale 1-3) [facility] amLODIPine 10 mg tablet 08-17 09:16: 15 Yes 10mg Take 10 mg by mouth daily. [facility] hydroCHLORO thiazide 25 mg tablet 08-17 09:16: 15 Yes 25mg Take 25 mg by mouth daily. [facility] ibuprofen 800 mg tablet 08-17 09:16: 15 Yes 800mg Take 800 mg by mouth 2 (two) times daily. [facility] Vital Signs Vital Name Observation Time Observation Value Comments S ource Systolic blood pressure 2024-06-02 06:00:00 183 mm[Hg] [facility] Diastolic blood pressure 2024-06-02 06:00:00 132 mm[Hg] [facility] Heart rate 2024-06-02 05:18:00 82 /min [facility] Body temperature 2024-06-02 05:18:00 37 Anastasiia [facility] Respiratory rate 2024-06-02 05:18:00 20 /min [facility] Oxygen saturation in Arterial blood by Pulse oximetry 2024-06-02 05:18:00 100 /min [facility] Body height 2024-06-02 03:39:00 182.9 cm [facility] Body weight 2024-06-02 03:39:00 102.377 kg [facility] BMI 2024-06-02 03:39:00 30.61 kg/m2 [facility] Systolic blood pressure 2021-12-06 17:40:07 158 mm[Hg] [facility] Diastolic blood pressure 2021-12-06 17:40:07 105 mm[Hg] [facility] Heart rate 2021-12-06 15:43:00 91 /min [facility] Respiratory rate 2021-12-06 15:43:00 20 /min [facility] Oxygen saturation in Arterial blood by Pulse oximetry 2021-12-06 15:43:00 97 /min [facility] Body temperature 2021-12-06 14:49:00 36.61 Anastasiia [facility] Body height 2021-12-06 14:49:00 182.9 cm [facility] Body weight 2021-12-06 14:49:00 99.791 kg [facility] BMI 2021-12-06 14:49:00 29.84 kg/m2 [facility] Systolic blood pressure 2021-08-21 20:39:00 143 mm[Hg] [facility] Diastolic blood pressure 2021-08-21 20:39:00 104 mm[Hg] [facility] Heart rate 2021-08-21 20:39:00 79 /min [facility] Body temperature 2021-08-21 20:39:00 36 Anastasiia [facility] Respiratory rate 2021-08-21 20:39:00 18 /min [facility] Oxygen saturation in Arterial blood by Pulse oximetry 2021-08-21 20:39:00 99 /min [facility] Body weight 2021-08-21 10:57:00 104.055 kg [facility] BMI 2021-08-21 10:57:00 31.11 kg/m2 [facility] Body height 2021-08-18 10:31:00 182.9 cm [facility] Procedures Procedure Date / Time Performed Performing Clinician Source NOTICE OF PRIVACY PRACTICES 2021-12-06 14:38:21 Doctor Unassigned, [place] [facility] CONSENT/REFUSAL FOR DIAGNOSIS AND TREATMENT 2021-12-06 14:38:03 Doctor Unassigned, [place] [facility] AUTHORIZATION FOR RELEASE OF PHI 2021-09-01 05:01:00 Doctor Unassigned, [place] [facility] MAGNESIUM 2021-08-21 08:42:00 Eryn Cowart [facility] BASIC METABOLIC PANEL (NA, K, CL, CO2, GLUCOSE, BUN, CREATININE, CA) 2021-08-21 08:42:00 Supa [facility] N-TERMINAL PRO-BNP 2021-08-21 08:42:00 Gaston [facility] HB ECG ROUTINE & RHYTHM STRIP 2021-08-20 13:02:55 [facility] 2021-08-20 09:22:00 Letty March [facility] BASIC METABOLIC PANEL (NA, K, CL, CO2, GLUCOSE, BUN, CREATININE, CA) 2021-08-20 09:22:00 [facility] 2021-08-20 09:22:00 Letty March [facility] HB ECG ROUTINE & RHYTHM STRIP 2021-08-19 13:08:08 [facility] 2021-08-19 10:21:00 Gatson [facility] BASIC METABOLIC PANEL (NA, K, CL, CO2, GLUCOSE, BUN, CREATININE, CA) 2021-08-19 10:21:00 [facility]OLIC [facility] (NA, K, CL, CO2, GLUCOSE, BUN, CREATININE, CA) 2021-08-18 19:41:00 Supa [facility] HB ECG ROUTINE & RHYTHM STRIP 2021-08-18 14:50:24 Supa [facility] MAGNESIUM 2021-08-18 09:10:[address] [facility] BASIC METABOLIC PANEL (NA, K, CL, CO2, GLUCOSE, BUN, CREATININE, CA) 2021-08-18 09:10:00 Supa [facility] CBC WITH DIFF 2021-08-18 09:10:00 [facility] TROPONIN I 2021-08-17 23:58:[address] [facility] TRANSTHORACIC ECHO (TTE) COMPLETE W/ CONTRAST 2021-08-17 18:53:00 Supa [facility] PHOSPHORUS 2021-08-17 15:43[facility] 2021-08-17 15:43:[address] [facility] FERRITIN SERUM 2021-08-17 15:43:00 Eryn Cowart [facility] TROPONIN I 2021-08-17 15:43:[address] [facility] THYROID STIMULATING HORMONE 2021-08-17 15:43:00 Supa [facility] HEPATIC FUNCTION PANEL (94062) (ALB,T.PRO,BILI T,BU/BC,ALT,AST,ALK PHOS) 2021-08-17 15:43:00 Supa [facility] BASIC METABOLIC PANEL (NA, K, CL, CO2, GLUCOSE, BUN, CREATININE, CA) 2021-08-17 15:43:00 Supa [facility] IRON PANEL 2021-08-17 15:43:[address] [facility] CBC WITH DIFF 2021-08-17 15:43:00 [facility] GLYCOSYLATED HEMOGLOBIN (A1C) 2021-08-17 15:43:00 [facility] N-TERMINAL PRO-BNP 2021-08-17 15:43:00 Eryn Cowart [facility] XR CHEST 1 VW 2021-08-17 15:10:00 Eryn Cowart [facility] Encounters Start Date/Time End Date/Time Encounter Type Admission Type Attending [facility] Care Facility Care Department Encounter ID Source 2024-06-01 21:44:00 2024-06-02 00:17:00 Emergency MIGDALIA CARBAJAL SHINTA [facility] ERT [id number] [facility] 2024-06-01 21:44:00 2024-06-02 00:17:00 Emergency Migdalia Villegas [facility] 1..840.114 350.1.13.10 4.2.7.2.686 [id number] [facility] 2024-03-30 10:06:11 2024-03-30 10:06:11 Outpatient [facility] [id number] Bairon 2022-08-17 00:00:00 2022-08-17 00:00:00 Basim Garcia [facility] 1..840.114 350.1.13.10 4.2.7.2.686 [id number] [facility] 2021-12-06 09:51:00 2021-12-06 13:09:00 Emergency X Tameka NOVOA [facility] ERT [id number] [facility] 2021-12-06 09:51:00 2021-12-06 13:09:00 Emergency Tameka Novoa [facility] 1..840.114 350.1.13.10 4.2.7.2.686 [id number] [facility] 2021-12-06 00:00:00 2021-12-06 00:00:00 Orders Only Doctor Unassigned, [place] [facility] 1.2.840.114 350.1.13.10 4.2.7.2.686 [id number] [facility] 2021-09-14 00:00:00 2021-09-14 00:00:00 Telephone [facility] 1.2.840.114 350.1.13.10 4.2.7.2.686 [id number] [facility] 2021-09-12 00:00:00 2021-09-12 00:00:00 Telephone [facility] 1.2840.114 350.1.13.10 4.2.7.2.686 [id number] [facility] 2021-09-01 00:00:00 2021-09-01 00:00:00 Telephone [facility] 1.2.840.114 350.1.13.10 4.2.7.2.686 [id number] [facility] 2021-09-01 00:00:00 2021-09-01 00:00:00 Orders Only Doctor Unassigned, [place] [facility] 1.2.840.114 350.1.13.10 4.2.7.2.686 [id number] [facility] 2021-08-30 00:00:00 2021-08-30 00:00:00 Telephone [facility] 1.2.840.114 350.1.13.10 4.2.7.2.686 [id number] [facility] 2021-08-22 00:00:00 2021-08-22 00:00:00 Transition of Care Sherrell Neumann 1.2.840.114 350.1.13.10 4.2.7.2.686 [id number] [facility] 2021-08-17 08:35:00 2021-08-21 17:42:00 Inpatient U DIMITRIOS ABEL [facility] [id number] [facility] 2021-08-17 08:35:00 2021-08-21 17:42:00 Hospital Encounter John Cotadanyell [facility] LoriNidhi kochkaylene [facility] 1.2840.114 350.1.13.10 4.2.7.2.686 [id number] [facility] 2021-08-18 00:00:00 2021-08-18 00:00:00 Telephone Dimitrios Abel [facility] 1..840.114 350.1.13.10 4.2.7.2.686 [id number] [facility] Results Test Description Test Time Test Comments Results Result Co mments Source [facility] (NA, K, CL, CO2, GLUCOSE, BUN, CREATININE, CA)2021-08-21 10:07:34* Test Item Value Reference Range Interpretation Comme nts NA (test code = 8598081508) 135 mmol/L 135-145 K (test code = 1763630191) 4.4 mmol/L 3.5-5.0 CL (test code = 5959297784) 102 mmol/L 98-108 CO2 TOTAL (test code = 4563703864) 26 mmol/L 23-31 AGAP (test code = 2100491237) 2-16 BUN (test code = 9427952236) 27 mg/dL 7-23 H GLUCOSE (test code = 1942640618) 104 mg/dL 70-110 CREATININE (test code = 1030534834) 1.49 mg/dL 0.60-1.25 H CALCIUM (test code = 6881676481) 9.0 mg/dL 8.6-10.6 eGFR (test code = 0045281126) mL/min/1.73m2 EBEN (test code = EBEN) Association [...] imaging tests). Lab Interpretation (test code = 12781-9) [facility]normal [facility] 10:07:34* Test Item Value Reference Range Interpretation Comme nts MAGNESIUM (test code = 5064220754) 1.9 mg/dL 1.7-2.4 Lab Interpretation (test cod e = 24126-3) Normal [facility] (NA, K, CL, CO2, GLUCOSE, BUN, CREATININE, CA)2021-08-20 10:22:59* Test Item Value Reference Range Interpretation Comme nts NA (test code = 8079452352) 137 mmol/L 135-145 K (test code = 8747608103) 4.4 mmol/L 3.5-5.0 CL (test code = 9503736912) 102 mmol/L 98-108 CO2 TOTAL (test code = 2751615884) 26 mmol/L 23-31 AGAP (test code = 0672114860) 2-16 BUN (test code = 8615262546) 31 mg/dL 7-23 H GLUCOSE (test code = 9626236129) 119 mg/dL 70-110 H CREATININE (test code = 1158719722) 1.56 mg/dL 0.60-1.25 H CALCIUM (test code = 1404114046) 9.1 mg/dL 8.6-10.6 eGFR (test code = 4387598425) mL/min/1.73m2 EBEN (test code = EBEN) Association [...] imaging tests). Lab Interpretation (test code = 32002-9) [facility]normal [facility] 10:22:59* Test Item Value Reference Range Interpretation Comme nts MAGNESIUM (test code = 0027922895) 2.1 mg/dL 1.7-2.4 Lab Interpretation (test cod e = 77626-1) Normal [facility] WITH [id number] 09:42:15* Test Item Value Reference Range Interpretation [...] 32.8 g/dL 31.2-35.0 RDW-SD (test code = 91299-9) 39.3 fL 38.5-51.6 RDW-CV (test code = 788-0) 12.5 % 12.1-15.4 PLT (test code = 777-3) See_Comment H [Automated messa ge] The system which generated this result transmitted reference range: 150 - 328 10*3/?L. The reference range was not used to interpret this result as normal/abnormal. MPV (test code = 22438-4) 9.3 fL 9.8-13.0 L NRBC/100 WBC (test code = 9807939863) See_Comment [Automated [employer] ssage] The system which generated this result transmitted reference range: 0.0 - 10.0 /100 WBCs. The reference range was not used to interpret this result as normal/abnormal. NRBC x10^3 (test code = 2169306025) <0.01 See_Comment [Automated messa ge] The system which generated this result transmitted reference range: 10*3/?L. The reference range was not used to interpret this result as normal/abnormal. GRAN MAT (NEUT) % (test code = 770-8) 60.5 % IMM GRAN % (test code = 8636392166) 0.30 % LYMPH % (test code = 736-9) 26.7 % MONO % (test code = 5905-5) 8.3 % EOS % (test code = 713-8) 3.4 % BASO % (test code = 706-2) 0.8 % GRAN MAT x10^3(ANC) (test code = 3185490127) 7.17 10*3/uL 1.99-6.95 H IMM GRAN x10^3 (test code = 1803846824) 0.03 10*3/uL 0.00-0.06 LYMPH x10^3 (test code = 731-0) 3.16 10*3/uL 1.09-3.23 MONO x10^3 (test code = 742-7) 0.98 10*3/uL 0.36-1.02 EOS x10^3 (test code = 711-2) 0.40 10*3/uL 0.06-0.53 BASO x10^3 (test code = 704-7) 0.10 10*3/uL 0.01-0.09 H Lab Interpretation (test code = 79024-9) Abnormal [facility] METABOLIC PANEL (NA, K, CL, CO2, GLUCOSE, BUN, CREATININE, CA)2021-08-19 10:52:12* Test Item Value Reference Range Interpretation Comme nts NA (test code = 5843048434) 136 mmol/L 135-145 K (test code = 3117680415) 3.8 mmol/L 3.5-5.0 CL (test code = 8070979668) 100 mmol/L 98-108 CO2 TOTAL (test code = 8366704088) 29 mmol/L 23-31 AGAP (test code = 4959056225) 2-16 BUN (test code = 3631148514) 32 mg/dL 7-23 H GLUCOSE (test code = 7588705731) 115 mg/dL 70-110 H CREATININE (test code = 9633452206) 1.67 mg/dL 0.60-1.25 H CALCIUM (test code = 3448641096) 9.1 mg/dL 8.6-10.6 eGFR (test code = 2157876757) mL/min/1.73m2 EBEN (test code = EBEN) Association [...] imaging tests). Lab Interpretation (test code = 62008-7) [facility]* Test Item Value Reference Range Interpretation Comme nts MAGNESIUM (test code = 7554036868) 1.9 mg/dL 1.7-2.4 Lab Interpretation (test cod e = 36457-5) [facility] (NA, K, CL, CO2, GLUCOSE, BUN, CREATININE, CA)2021-08-18 21:19:06* Test Item Value Reference Range Interpretation Comme nts NA (test code = 8641430354) 135 mmol/L 135-145 K (test code = 2669605576) 3.9 mmol/L 3.5-5.0 CL (test code = 1653441916) 98 mmol/L 98-108 CO2 TOTAL (test code = 6287286659) 30 mmol/L 23-31 AGAP (test code = 8621926257) 2-16 BUN (test code = 7332826002) 29 mg/dL 7-23 H GLUCOSE (test code = 7808721749) 121 mg/dL 70-110 H CREATININE (test code = 5942490509) 1.58 mg/dL 0.60-1.25 H CALCIUM (test code = 7730931906) 8.9 mg/dL 8.6-10.6 eGFR (test code = 3052752520) mL/min/1.73m2 EBEN (test code = EBEN) Association [...] imaging tests). Lab Interpretation (test code = 78509-5) Abnormal [facility] METABOLIC PANEL (NA, K, CL, CO2, GLUCOSE, BUN, CREATININE, CA)2021-08-18 10:04:44* Test Item Value Reference Range Interpretation Comme nts NA (test code = 9782672737) 135 mmol/L 135-145 K (test code = 6393960783) 4.0 mmol/L 3.5-5.0 Slight hemolysis CL (test code = 1539417550) 101 mmol/L 98-108 CO2 TOTAL (test code = 4975315729) 29 mmol/L 23-31 AGAP (test code = 9359888689) 2-16 BUN (test code = 2736280551) 32 mg/dL 7-23 H Slight hemolysis GLUCOSE (test code = 2350992693) 114 mg/dL 70-110 H CREATININE (test code = 7152164905) 1.54 mg/dL 0.60-1.25 H CALCIUM (test code = 2040921806) 8.8 mg/dL 8.6-10.6 eGFR (test code = 2324459661) mL/min/1.73m2 EBEN (test code = EBEN) Association [...] imaging tests). Lab Interpretation (test code = 93243-5) [facility] 10:04:44* Test Item Value Reference Range Interpretation Comme nts MAGNESIUM (test code = 1289617056) 2.2 mg/dL 1.7-2.4 Lab Interpretation (test cod e = 01271-3) Normal [facility] WITH [id number] 09:24:38* Test Item Value Reference Range Interpretation Comme nts WBC (test code = 6690-2) See_Comment [Automated [employer] ge] The system which generated this result [...] 33.3 g/dL 31.2-35.0 RDW-SD (test code = 07752-2) 39.1 fL 38.5-51.6 RDW-CV (test code = 788-0) 12.6 % 12.1-15.4 PLT (test code = 777-3) See_Comment H [Automated messa ge] The system which generated this result transmitted reference range: 150 - 328 10*3/?L. The reference range was not used to interpret this result as normal/abnormal. MPV (test code = 30875-1) 9.5 fL 9.8-13.0 L NRBC/100 WBC (test code = 5573434491) See_Comment [Automated me ssage] The system which generated this result transmitted reference range: 0.0 - 10.0 /100 WBCs. The reference range was not used to interpret this result as normal/abnormal. NRBC x10^3 (test code = 5839898666) <0.01 See_Comment [Automated messa ge] The system which generated this result transmitted reference range: 10*3/?L. The reference range was not used to interpret this result as normal/abnormal. GRAN MAT (NEUT) % (test code = 770-8) 65.3 % IMM GRAN % (test code = 1489289342) 0.20 % LYMPH % (test code = 736-9) 23.3 % MONO % (test code = 5905-5) 7.0 % EOS % (test code = 713-8) 3.5 % BASO % (test code = 706-2) 0.7 % GRAN MAT x10^3(ANC) (test code = 6052352340) 6.63 10*3/uL 1.99-6.95 IMM GRAN x10^3 (test code = 1518827941) <0.03 0.00-0.06 LYMPH x10^3 (test code = 731-0) 2.36 10*3/uL 1.09-3.23 MONO x10^3 (test code = 742-7) 0.71 10*3/uL 0.36-1.02 EOS x10^3 (test code = 711-2) 0.35 10*3/uL 0.06-0.53 BASO x10^3 (test code = 704-7) 0.07 10*3/uL 0.01-0.09 Lab Interpretation (test code = 31495-2) [facility]normal [facility]A1C[facility]2021-08-18 02:37:07* Test Item Value Reference Range Interpretation Comme nts HGB A1C (test code = 4548-4) 5.8 % 4.0-5.7 H EBEN (test code = EBEN) Reference RangesNormal: <5.7%Prediabetes: 5.7 - 6.4%Diabetes: > 6.5% Lab Interpretation (test code = 99868-1) [facility] [id number] 01:03:37* Test Item Value Reference Range Interpretation Comments TROPONIN I (test code = 6607491614) 0.101 ng/mL See_Comment H [Automated message] The [...] of biotin. Lab Interpretation (test code = 19728-4) [facility]normal [facility]2021-08-17 22:14:20* Test Item Value Reference Range Interpretation Comme nts Ao root annulus (test code = 9194572580) 3.3 cm Ao root diam (test code = 6734082325) 3.30 cm Aortic root (test code = 4923619201) 3.3 cm LA size (test code = 0773994909) 3.7 cm LVOT diameter (test code = 9187827909) 2.00 cm LVIDD (test code = 7354777207) 5.90 cm IVS (test code = 8808054355) 1.26 cm Interventricular Septum Diastolic Thickness by 2D (test code = 6904756) 1.26 cm LVPWD (test code = 9133056566) 1.19 cm PW (test code = 0754544247) 1.19 cm 0.6-1.1 EF(Teich) (test code = 8778509006) 46.60 % LVIDS (test code = 7747775079) 4.50 cm FS (test code = 2627347152) 24 % EF - 2D (test code = 50706566) 46.60 % LAV(MOD-sp4) (test code = 8335736463) 65.30 mL MV Peak E Narciso (test code = 7963547117) 126.4 cm/s E wave decelartion time (test code = 9469470382) 0.14 s MV Prop V (test code = 2638749339) 35.00 cm/s LVOT stroke volume (test code = 5463394626) 45.10 cm3 LVOT peak narciso (test code = 1014335581) 90.0 cm/s LVOT mn grad (test code = 9833627987) mmHg AV LVOT peak gradient (test code = 5029721359) mmHg LVOT peak VTI (test code = 5015492617) 14.4 cm LV V1 mean (test code = 8351850093) 63.00 cm/s Aortic valve mean velocity (test code = 8694679116) 76.8 cm/s Ao peak narciso (test code = 6628142701) 125.5 cm/s Ao VTI (test code = 9486549107) 17.0 cm AV area by cont VTI (test code = 5712527024) 2.6 cm2 AV area peak narciso (test code = 2268961472) 2.2 cm2 Ao max PG (test code = 3143249668) 6.30 mm[Hg] AV peak gradient (test code = 0910682668) mmHg AV valve area (test code = 1931845436) 2.60 cm2 AV mean gradient (test code = 0199246885) mmHg TR Peak Narciso (test code = 3826654046) 119.4 cm/s Triscuspid Valve Regurgitation Peak Gradient (test code = 8655588045) mmHg Tapse (test code = 9600888108) 1.95 cm LA volume (BP) (test code = 7166565440) 73.5 mL LAV(MOD-sp2) (test code = 8849191821) 74.00 mL LA Volume Index (BP) (test code = 9566149941) 32.5 mL/m2 LV Diastolic Volume (BP) (test code = 7559944836) 232.2 mL EF(MOD-bp) (test code = 6994191608) 33.10 % LV Systolic Volume (BP) (test code = 4527232270) 155.2 mL SV(MOD-bp) (test code = 8325745167) 76.90 mL EF (test code = 7021815013) 33 % Left Ventricular Stroke Volume by 2-D Biplane-MOD (test code = 5744332) 76.9 mL Radiology Study observation (narrative) (test code = 09568-5) EBEN (test code = EBEN) ?Left?Ventricle: Left ventricle size is normal. There is mild concentric hypertrophy. Severe global hypokinesis present. Severely reduced systolic function with a visually estimated EF of 20 - 25%. There is restrictive diastolic dysfunction. Elevated left ventricular filling pressure. ?Right?Ventricle: Right ventricle is mildly dilated. Normal systolic function. ?Pericardium: The pericardium is normal. No pericardial effusion. Tex Niño MD [facility] Weight BSA (Calculated - sq m) BP Pulse 6' (1.829 m) 230 lb (104.3 kg) 2.3 sq meters 183/126 82 [facility]52776[facility] (ALB,T.PRO,BILI T,BU/BC,ALT,AST,ALK PHOS)2021-08-17 17:59:20* Test Item Value Reference Range Interpretation Comme nts TOTAL BILI (test code = 8212260217) 0.4 mg/dL 0.1-1.1 BILI UNCON (test code = 2199904943) 0.4 mg/dL 0.1-1.1 BILI CONJ (test code = 2178603839) 0.0 mg/dL 0.0-0.3 T PROTEIN (test code = 8651185515) 6.4 g/dL 6.3-8.2 ALBUMIN (test code = 4705382213) 3.7 g/dL 3.5-5.0 ALK PHOS (test code = 8103560648) 64 U/L 34-122 ALTv (test code = 1742-6) 39 U/L 5-50 AST(SGOT) (test code = 6384609400) 30 U/L 13-40 Lab Interpretation (test cod e = 82154-4) Normal [facility] [id number] 17:21:19* Test Item Value Reference Range Interpretation Comme nts FERRITIN (test code = 2314213843) 29.7 ng/mL 18.0-464.0 EBEN (test code = EBEN) Biotin has been reported to cause a negative bias, interpret results relative to patient's use of biotin. Lab Interpretation (test code = 67032-1) Normal [facility]TH[facility] STIMULATING [id number] 17:14:24 * Test Item Value Reference Range Interpretation Comme nts TSH (test code = 4011181262) See_Comment [Automated messa ge] The system which generated this result transmitted reference range: 0.45 - 4.70 mIU/L. The reference range was not used to interpret this result as normal/abnormal. Lab Interpretation (test code = 90194-4) Normal [facility]AL [id number] 16:55:55* Test Item Value Reference Range Interpretation Comme nts NT-proBNP (test code = 1810279509) 5070 pg/mL See_Comment H [Automated message] The system which generated this result transmitted reference range: <=125. The reference range was not used to interpret this result as normal/abnormal. EBEN (test code = EBEN) Biotin has been reported to cause a negative bias, interpret results relative to patient's use of biotin. Lab Interpretation (test code = 84537-5) [id number] 16:55:55* Test Item Value Reference Range Interpretation Comments TROPONIN I (test code = 2336351740) 0.117 ng/mL See_Comment H [Automated message] The [...] of biotin. Lab Interpretation (test code = 31160-2) Abnormal [facility] [id number] 16:52:53* Test Item Value Reference Range Interpretation Comme nts IRON (test code = 5603893585) 51 ug/dL 50-160 TIBC (test code = 0155566702) 298 ug/dL 250-410 % FE SAT (test code = 8305770538) 17 % 20-50 L Lab Interpretation (test cod e = 93382-1) [facility]2022-[facility]-14 16:41:35* Test Item Value Reference Range Interpretation Comme nts MAGNESIUM (test code = 1932914257) 1.6 mg/dL 1.7-2.4 L Lab Interpretation (test cod e = 86471-6) [facility]normal [facility]2022-[facility]-14 16:41:35* Test Item Value Reference Range Interpretation Comme nts PHOSPHORUS (test code = 4275813261) 4.0 mg/dL 2.5-5.0 Lab Interpretation (test cod e = 45034-5) [facility] (NA, K, CL, CO2, GLUCOSE, BUN, CREATININE, CA)2021-08-17 16:41:35* Test Item Value Reference Range Interpretation Comme nts NA (test code = 6392907715) 134 mmol/L 135-145 L K (test code = 8691765060) 3.6 mmol/L 3.5-5.0 CL (test code = 1803796962) 99 mmol/L 98-108 CO2 TOTAL (test code = 3688313473) 32 mmol/L 23-31 H AGAP (test code = 4890624807) 2-16 BUN (test code = 9550711643) 24 mg/dL 7-23 H GLUCOSE (test code = 0359541747) 111 mg/dL 70-110 H CREATININE (test code = 6488709298) 1.60 mg/dL 0.60-1.25 H CALCIUM (test code = 8665603867) 8.8 mg/dL 8.6-10.6 eGFR (test code = 5166540368) mL/min/1.73m2 EBEN (test code = EBEN) Association [...] imaging tests). Lab Interpretation (test code = 32832-1) Abnormal [facility] WITH [id number] 16:00:05* Test Item Value Reference Range Interpretation Comme nts WBC (test code = 6690-2) See_Comment [Automated [employer]] The system which generated this result transmitted reference range: 4.20 - 10.70 10*3/?L. The reference range was not used to interpret this result as normal/abnormal. RBC (test code = 789-8) See_Comment L [Automated [employer]] The system which generated this result transmitted [...] 33.7 g/dL 31.2-35.0 RDW-SD (test code = 73543-7) 39.5 fL 38.5-51.6 RDW-CV (test code = 788-0) 12.6 % 12.1-15.4 PLT (test code = 777-3) See_Comment H [Automated messa ge] The system which generated this result transmitted reference range: 150 - 328 10*3/?L. The reference range was not used to interpret this result as normal/abnormal. MPV (test code = 67442-8) 9.4 fL 9.8-13.0 L NRBC/100 WBC (test code = 8455409561) See_Comment [Automated [employer] ssage] The system which generated this result transmitted reference range: 0.0 - 10.0 /100 WBCs. The reference range was not used to interpret this result as normal/abnormal. NRBC x10^3 (test code = 1492529890) <0.01 See_Comment [Automated Cryop[employer] ge] The system which generated this result transmitted reference range: 10*3/?L. The reference range was not used to interpret this result as normal/abnormal. GRAN MAT (NEUT) % (test code = 770-8) 65.6 % IMM GRAN % (test code = 4539250936) 0.20 % LYMPH % (test code = 736-9) 23.8 % MONO % (test code = 5905-5) 6.7 % EOS % (test code = 713-8) 3.2 % BASO % (test code = 706-2) 0.5 % GRAN MAT x10^3(ANC) (test code = 0947676900) 6.58 10*3/uL 1.99-6.95 IMM GRAN x10^3 (test code = 9227783167) <0.03 0.00-0.06 LYMPH x10^3 (test code = 731-0) 2.39 10*3/uL 1.09-3.23 MONO x10^3 (test code = 742-7) 0.67 10*3/uL 0.36-1.02 EOS x10^3 (test code = 711-2) 0.32 10*3/uL 0.06-0.53 BASO x10^3 (test code = 704-7) 0.05 10*3/uL 0.01-0.09 Lab Interpretation (test code = 54206-5) [facility]"
== END 2024-06-01 20:52 | disposition home or self-care (01) ==
LOC: ER 20:22
DX: M10.9 Gout, unspecified (principal); I10 Essential (primary) hypertension
CPT/HCPCS: 99281

== ENCOUNTER 2024-06-28 07:56 | Emergency (ER) | payer OTHER ==
--- OUTSIDE RECORDS SUMMARY | 2024-06-28 08:00 | XMS REPORT | Continuity of Care Document ---
Author Name Unknown Address [address] [facility] [address] [place] [address] [facility] thconnect Address [address] [facility] 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 Role Phone Pcp, Patient Does Not Have A Primary Care Physic pat Doctor Unassigned, [place] Attending Clinician U jose e Figueroa, Generic Provider Attending Clinician Unavailable MIGDALIA VILLEGAS Attending Clinician Unavailable MIGDALIA VILLEGAS Attending Clinician Unavailable Migdalia Driver Attending Clinician [phone] Basim Cota MD Attending Clinician + Tameka NOVOA Attending Clinician Unavailable Tameka Garcia Attending Clinician [phone] Doctor Unassigned, [place] Attending Clinician U Sherrell Erazo RN Attending Clinician Unavailable DIMITRIOS ABEL Attending Clinician UnavailDimitrios Kearney MD Attending Clinician [phone] DIMITRIOS ABEL Admitting Clinician UnavailDimitrios Kearney MD Admitting Clinician [phone] Payers Payer Name Policy Type Policy Number Effective Date Expirati on Date Source Problems Condition Name Condition Details Condition Category Status Onset Date Resolution Date Last Treatment Date Treating Clinician Comments Source SOB (shortness of breath) SOB (shortness of breath) Disease Active 4-14 00:00: 00 [facility] Obesity (BMI 30-39.9) Obesity (BMI 30-39.9) Disease Active 7-21 00:00: 00 [facility] Allergies, Adverse Reactions, Alerts Allergy Name Allergy Type Status Severity Reaction(s) Onset Date Inactive Date Treating Clinician Comments Source MORPHINE DRUG INGREDI Active Unknown-Cmnt 12-06 00:00: 00 [facility] Morphine Propensi ty to adverse reaction s Active Unknown - See comments 12-06 00:00: 00 Patient does not know reaction [facility] NO KNOWN ALLERGIE S Drug Class Active [facility] Social History Social Habit Start Date Stop Date Quantity Comments Source History SDOH Alcohol Std Drinks [facility] History SDOH Alcohol Binge [facility] Alcohol Frequency [facility] History of Social function 2024-06-01 00:00:00 2024-06-01 00:00:00 [facility] Exposure to SARS-CoV-2 (event) 2021-11-26 00:00:00 2021-12-06 12:55:[address] [facility] Alcohol intake 2021-12-06 00:00:00 2021-12-06 00:00:00 Current drinker of alcohol (finding) [facility] Alcohol Comment 2016-11-22 00:00:00 2016-11-22 00:00:[address] [facility] Alcoholic beverage intake 2016-11-22 00:00:00 2016-11-22 00:00:00 Current drinker of alcohol (finding) [facility] Tobacco use and exposure 2016-11-22 00:00:00 2016-11-22 00:00:00 Smokeless tobacco non-user [facility] Sex assigned at 1985 00:00:00 1985 00:00:00 [facility] Smoking Status Start Date Stop Date Source Never smoked tobacco [facility] Medications Ordered Medication Name Filled Medication Name Start Date Stop Date Current Medication? Ordering Clinician Indication Dosage Frequency Signature (SIG) Comments Components Source cloNIDine (CATAPRES) tablet 0.1 mg 06-02 04:45: 00 06-02 05:17 :00 No .1mg 0.1 mg, Oral, ONCE, 1 dose, On Sat06/01/24 at 2245, STAT [facility] HYDROcodone -acetaminop hen (NORCO 5) tablet 1 tablet 06-02 04:45: 00 06-02 05:17 :00 No 1{tbl} 1 tablet, Oral, ONCE, 1 dose, On Sat06/01/24 at 2245, [facility] methylpredn isolone sod succ (SOLU-MEDRO L) injection 125 mg 06-02 04:40: 00 06-02 05:18 :00 No 125mg 125 mg, Intramuscu lar, ONCE NOW, 1 dose, On Sat06/01/24 at 2245, [facility] acetaminoph en-codeine 300-30 mg tablet 06-02 00:00: 00 06-10 05:59 :00 Yes [id number] 1{tbl} Take 1 tablet by mouth every 8 (eight) hours as needed for Pain (scale 4-6) for up to 7 days. Indication s: acute pain [facility] lisinopriL (PRINIVIL,Z ESTRIL) tablet 20 mg 12-07 14:00: 00 Yes 20mg 20 mg, Oral, DAILY, First dose on Viktoriya 12/07/21 at 0900, Until Discontinu ed, Routine [facility] HYDROcodone -acetaminop hen (NORCO) 10-325 mg tablet 1 tablet 12-06 17:15: 00 12-06 16:12 :00 No 1{tbl} 1 tablet, Oral, ONCE, 1 dose, On Sat12/06/21 at 1215, [facility] carvediloL (COREG) tablet 25 mg 12-06 17:15: 00 12-06 16:12 :00 No 25mg 25 mg, Oral, ONCE, 1 dose, On Sat12/06/21 at 1215, Routine [facility] methylpredn isolone sod succ (SOLU-MEDRO L) injection 125 mg 12-06 16:45: 00 12-06 16:09 :00 No 125mg 125 mg, Intramuscu lar, ONCE, 1 dose, On Sat12/06/21 at 1145, [facility] predniSONE 20 mg tablet 12-06 00:00: 00 Yes [id number] 1 PO BID x 4 days [facility] acetaminoph en-codeine 300-30 mg tablet 12-06 00:00: 00 Yes [id number] 1{tbl} Take 1 tablet by mouth every 4 (four) hours as needed for Pain (scale 4-6). Indication s: acute pain [facility] aspirin 81 mg chewable tablet 09-14 00:00: 00 Yes [id number] 81mg Take 1 tablet by mouth daily. [facility] atorvastati n 40 mg tablet 09-14 00:00: 00 Yes [id number] 40mg Take 1 tablet by mouth at bedtime. [facility] carvediloL 25 mg tablet 09-14 00:00: 00 Yes [id number] 37.5mg Take 1.5 tablets by mouth 2 (two) times daily with meals. [facility] furosemide 40 mg tablet 09-14 00:00: 00 Yes [id number] 40mg Take 1 tablet by mouth every morning and evening. [facility] lisinopriL 10 mg tablet 09-14 00:00: 00 Yes [id number] 30mg Take 3 tablets by mouth daily. [facility] spironolact one 25 mg tablet 09-14 00:00: 00 Yes [id number] 25mg Take 1 tablet by mouth daily. [facility] aspirin 81 mg chewable tablet -19 00:00: 00 09-14 00:00 :00 No [id number] 81mg Take 1 tablet by mouth daily for 180 days. [facility] lisinopriL 10 mg tablet 08-22 00:00: 00 09-14 00:00 :00 No [id number] 30mg Take 3 tablets by mouth daily for 180 days. [facility] spironolact one 25 mg tablet 08-22 00:00: 00 09-14 00:00 :00 No [id number] 25mg Take 1 tablet by mouth daily for 180 days. [facility] carvediloL (COREG) tablet 37.5 mg 08-21 22:00: 00 Yes 37.5mg 37.5 mg, Oral, BID MEALS, First dose (after last modificati on) on Sat08/21/21 at 1700, Until Discontinu ed, Routine [facility] lisinopriL (PRINIVIL,Z ESTRIL) tablet 30 mg 08-21 14:00: 00 Yes 30mg 30 mg, Oral, DAILY, First dose (after last modificati on) on Sat08/21/21 at 0900, Until Discontinu ed, Routine [facility] magnesium oxide (MAG-OX 400) tablet 400 mg 08-21 13:45: 00 08-21 13:20 :00 No 400mg 400 mg, Oral, ONCE, 1 dose, On Sat08/21/21 at 0845, Routine [facility] amLODIPine 10 mg tablet 08-21 11:33: 41 08-21 00:00 :00 No 10mg Take 10 mg by mouth daily. [facility] hydroCHLORO thiazide 25 mg tablet 08-21 11:33: 41 08-21 00:00 :00 No 25mg Take 25 mg by mouth daily. [facility] ibuprofen 800 mg tablet 08-21 11:33: 41 08-21 00:00 :00 No 800mg Take 800 mg by mouth 2 (two) times daily. [facility] hydrALAZINE (APRESOLINE ) tablet 10 mg 08-21 07:00: 00 08-21 06:05 :00 No 10mg 10 mg, Oral, ONCE, 1 dose, On Sat08/21/21 at 0200, Routine [facility] atorvastati n 40 mg tablet 08-21 00:00: 00 09-14 00:00 :00 No [id number] 40mg Take 1 tablet by mouth at bedtime for 180 days. [facility] furosemide 40 mg tablet 08-21 00:00: 00 09-14 00:00 :00 No [id number] 40mg Take 1 tablet by mouth every morning and evening for 180 days. [facility] carvediloL 25 mg tablet 08-21 00:00: 00 09-14 00:00 :00 No [id number] 37.5mg Take 1.5 tablets by mouth 2 (two) times daily with meals for 180 days. [facility] carvediloL 25 mg tablet 08-21 00:00: 00 08-21 00:00 :00 No [id number] 25mg Take 1 tablet by mouth 2 (two) times daily with meals for 180 days. [facility] furosemide (LASIX) tablet 40 mg 08-20 14:00: 00 Yes 40mg 40 mg, Oral, QAM+PM, First dose (after last modificati on) on Sat08/20/21 at 0900, Until Discontinu ed, Routine [facility] lisinopriL (PRINIVIL,Z ESTRIL) tablet 20 mg 08-20 14:00: 00 08-21 11:42 :47 No 20mg 20 mg, Oral, DAILY, First dose (after last modificati on) on Sat08/20/21 at 0900, Until Discontinu ed, Routine [facility] carvediloL (COREG) tablet 25 mg 08-20 13:00: 00 08-21 17:46 :56 No 25mg 25 mg, Oral, BID MEALS, First dose (after last modificati on) on 08/20/21 at 0800, Until Discontinu ed, Routine [facility] lisinopriL (PRINIVIL,Z ESTRIL) tablet 5 mg 08-19 15:00: 00 08-19 14:30 :00 No 5mg 5 mg, Oral, ONCE, 1 dose, On Sat08/19/21 at 1000, Routine [facility] carvediloL (COREG) tablet 12.5 mg 08-19 13:00: 00 08-19 22:39 :41 No 12.5mg 12.5 mg, Oral, BID MEALS, First dose (after last modificati on) on Sat08/19/21 at 0800, Until Discontinu ed, Routine [facility] furosemide (LASIX) injection 40 mg 08-19 01:00: 00 08-19 17:31 :11 No 40mg 40 mg, Slow IV Push, Q12H, First dose on Sat08/18/21 at 2000, Until Discontinu ed, Routine [facility] hydrALAZINE (APRESOLINE ) tablet 25 mg 08-18 21:47: 07 Yes 25mg 25 mg, Oral, Q6HPRN, Starting on Sat08/18/21 at 1647, Until Discontinu ed, Routine, SBP >180 [facility] lisinopriL (PRINIVIL,Z ESTRIL) tablet 10 mg 08-18 18:15: 00 08-18 18:14 :00 No 10mg 10 mg, Oral, DAILY, 1 dose, First dose on Sat08/18/21 at 1315, Routine [facility] lisinopriL (PRINIVIL,Z ESTRIL) tablet 10 mg 08-18 16:00: 00 08-19 13:47 :35 No 10mg 10 mg, Oral, DAILY, First dose on Sat08/18/21 at 1100, Until Discontinu ed, Routine [facility] spironolact one (ALDACTONE) tablet 25 mg 08-18 14:00: 00 Yes 25mg 25 mg, Oral, DAILY, First dose on Sat08/18/21 at 0900, Until Discontinu ed, Routine [facility] aspirin chewable tablet 81 mg 08-18 14:00: 00 Yes 81mg 81 mg, Oral, DAILY, First dose on Sat08/18/21 at 0900, Until Discontinu ed, Routine [facility] furosemide (LASIX) tablet 40 mg 08-18 14:00: 00 08-18 16:18 :32 No 40mg 40 mg, Oral, QAM+PM, First dose on Sat08/18/21 at 0900, Until Discontinu ed, Routine [facility] amLODIPine (NORVASC) tablet 10 mg 08-18 12:00: 00 08-18 11:05 :00 No 10mg 10 mg, Oral, ONCE, 1 dose, On Sat08/18/21 at 0700, Routine [facility] atorvastati n (LIPITOR) tablet 40 mg 08-18 02:00: 00 Yes 40mg 40 mg, Oral, QHS, First dose on Sat08/17/21 at 2100, Until Discontinu ed, Routine [facility] heparin (porcine) injection 5,000 Units 08-18 01:00: 00 Yes 5000U 5,000 Units, Subcutaneo us, Q12H, First dose on Sat08/17/21 at 2000, Until Discontinu ed, Routine [facility] hydrALAZINE (APRESOLINE ) tablet 10 mg 08-17 22:45: 00 08-17 23:51 :00 No 10mg 10 mg, Oral, ONCE, 1 dose, On Sat08/17/21 at 1745, Routine [facility] hydrALAZINE (APRESOLINE ) tablet 10 mg 08-17 21:45: 54 08-18 21:47 :24 No 10mg 10 mg, Oral, Q6HPRN, Starting on Sat08/17/21 at 1645, Until Sat08/18/21 at 1647, Routine, SBP >180 [facility] sulfur hexafluorid e microsphr (LUMASON) injection 5 mL 08-17 20:45: 00 08-17 20:45 :00 No [id number] 5mL 5 mL, Intravenou s, ONCE, 1 dose, On Sat08/17/21 at 1545, Routine
physics faculty member approving Restricted medication : DEZ QIU [facility] magnesium sulfate in water 4 gram/50 mL (8 %) IV Piggyback 4 g 08-17 18:15: 00 08-17 18:29 :00 No 4g 4 g, IV Piggyback, ONCE, 1 dose, On Viktoriya 08/17/21 at 1315, Routine [facility] KCL (KLOR-CON M20) tablet 40 mEq 08-17 18:15: 00 08-17 18:10 :00 No 40meq 40 mEq, Oral, ONCE, 1 dose, On Sat08/17/21 at 1315, Routine [facility] furosemide (LASIX) injection 40 mg 08-17 17:15: 00 08-18 12:42 :25 No 40mg 40 mg, Slow IV Push, Q12H, First dose on Sat08/17/21 at 1215, Until Discontinu ed, Routine [facility] acetaminoph en (TYLENOL) tablet 650 mg 08-17 14:09: 58 Yes 650mg 650 mg, Oral, Q6HPRN, Starting on Sat08/17/21 at 0909, Until Discontinu ed, Routine, Pain (scale 1-3) [facility] amLODIPine 10 mg tablet 08-17 09:16: 15 Yes 10mg Take 10 mg by mouth daily. [facility] hydroCHLORO thiazide 25 mg tablet 08-17 09:16: 15 Yes 25mg Take 25 mg by mouth daily. [facility] ibuprofen 800 mg tablet 08-17 09:16: 15 Yes 800mg Take 800 mg by mouth 2 (two) times daily. [facility] Vital Signs Vital Name Observation Time Observation Value Comments S qi Systolic blood pressure 2024-06-02 06:00:00 183 mm[Hg] [facility] Diastolic blood pressure 2024-06-02 06:00:00 132 mm[Hg] [facility] Heart rate 2024-06-02 05:18:00 82 /min Unive [facility] Body temperature 2024-06-02 05:18:[address] [facility] Respiratory rate 2024-06-02 05:18:00 20 /min [facility] Oxygen saturation in Arterial blood by Pulse oximetry 2024-06-02 05:18:00 100 /min [facility] Body height 2024-06-02 03:39:00 182.9 cm [facility] Body weight 2024-06-02 03:39:00 102.377 kg [facility] BMI 2024-06-02 03:39:00 30.61 kg/m2 [facility] Systolic blood pressure 2021-12-06 17:40:07 158 mm[Hg] [facility] Diastolic blood pressure 2021-12-06 17:40:07 105 mm[Hg] [facility] Heart rate 2021-12-06 15:43:00 91 /min Un[facility] Respiratory rate 2021-12-06 15:43:00 20 /min [facility] Oxygen saturation in Arterial blood by Pulse oximetry 2021-12-06 15:43:00 97 /min [facility] Body temperature 2021-12-06 14:49:[address] [facility] Body height 2021-12-06 14:49:00 182.9 cm [facility] Body weight 2021-12-06 14:49:00 99.791 kg [facility] BMI 2021-12-06 14:49:00 29.84 kg/m2 [facility] Systolic blood pressure 2021-08-21 20:39:00 143 mm[Hg] [facility] Diastolic blood pressure 2021-08-21 20:39:00 104 mm[Hg] [facility] Heart rate 2021-08-21 20:39:00 79 /min Unive [facility] Body temperature 2021-08-21 20:39:[address] [facility] Respiratory rate 2021-08-21 20:39:00 18 /min [facility] Oxygen saturation in Arterial blood by Pulse oximetry 2021-08-21 20:39:00 99 /min Margie o f [facility] Body weight 2021-08-21 10:57:00 104.055 kg [facility] BMI 2021-08-21 10:57:00 31.11 kg/m2 [facility] Body height 2021-08-18 10:31:00 182.9 cm [facility] Procedures Procedure Date / Time Performed Performing Clinician Source NOTICE OF PRIVACY PRACTICES 2021-12-06 14:38:21 Doctor Unassigned, [place] [facility] CONSENT/REFUSAL FOR DIAGNOSIS AND TREATMENT 2021-12-06 14:38:03 Doctor Unassigned, [place] [facility] AUTHORIZATION FOR RELEASE OF PHI 2021-09-01 05:01:00 Doctor Unassigned, [place] [facility] MAGNESIUM 2021-08-21 08:42:00 Eryn Cowart [facility] BASIC METABOLIC PANEL (NA, K, CL, CO2, GLUCOSE, BUN, CREATININE, CA) 2021-08-21 08:42:00 Supa [facility] N-TERMINAL PRO-BNP 2021-08-21 08:42:00 Gaston Elizabeth [facility] HB ECG ROUTINE & RHYTHM STRIP 2021-08-20 [facility]02[facility] 2021-08-20 09:22:00 Letty March [facility] BASIC METABOLIC PANEL (NA, K, CL, CO2, GLUCOSE, BUN, CREATININE, CA) 2021-08-20 09:22:00 [facility] 2021-08-20 09:22:00 Letty March [facility] HB ECG ROUTINE & RHYTHM STRIP 2021-08-19 13:08:08 [facility] 2021-08-19 10:21:00 Gaston Elizabeth [facility] BASIC METABOLIC PANEL (NA, K, CL, CO2, GLUCOSE, BUN, CREATININE, CA) 2021-08-19 10:21:[address] [facility] BASIC METABOLIC PANEL (NA, K, CL, CO2, GLUCOSE, BUN, CREATININE, CA) 2021-08-18 19:41:00 Supa [facility] HB ECG ROUTINE & RHYTHM STRIP 2021-08-18 14:50:24 Supa [facility] MAGNESIUM 2021-08-18 09:10:00 Supa [facility] BASIC METABOLIC PANEL (NA, K, CL, CO2, GLUCOSE, BUN, CREATININE, CA) 2021-08-18 09:10:00 Supa [facility] CBC WITH DIFF 2021-08-18 09:10:00 Supa [facility] TROPONIN I 2021-08-17 23:58:00 Supa [facility] TRANSTHORACIC ECHO (TTE) COMPLETE W/ CONTRAST 2021-08-17 18:53:00 Supa [facility] PHOSPHORUS 2021-08-17 15:43:[facility] 2021-08-17 15:43:00 Supa [facility] FERRITIN SERUM 2021-08-17 15:43:00 [facility] 2021-08-17 15:43:00 Supa [facility] THYROID STIMULATING HORMONE 2021-08-17 15:43:00 Supa [facility] HEPATIC FUNCTION PANEL (13686) (ALB,T.PRO,BILI T,BU/BC,ALT,AST,ALK PHOS) 2021-08-17 15:43:00 Supa [facility] BASIC METABOLIC PANEL (NA, K, CL, CO2, GLUCOSE, BUN, CREATININE, CA) 2021-08-17 15:43:00 Sup[facility] IRON PANEL 2021-08-17 15:43:00 Supa [facility] CBC WITH DIFF 2021-08-17 15:43:00 Supa [facility] GLYCOSYLATED HEMOGLOBIN (A1C) 2021-08-17 15:43:[address] [facility] N-TERMINAL PRO-BNP 2021-08-17 15:43:[address] [facility] XR CHEST 1 VW 2021-08-17 15:10:00 Eryn Cowart [facility] EXTERNAL PROVIDER RECORDS 2016-11-23 05:01:00 Doctor Unassigned, [place] [facility] DAY SURGERY - ADC 2016-11-23 05:01:00 Doctor Ivonne ssigned, [place] [facility] Encounters Start Date/Time End Date/Time Encounter Type Admission Type Attending Clinicians Care Facility Care Department Encounter ID Source 2016-11-23 00:00:00 2024-06-20 03:42:57 Orders Only Doctor Unassigned, [place] Doctor Unassigned, [place] [facility] [id number] 350.1.13.10 4.2.7.2.686 [id number] [facility] 2024-06-10 00:00:00 2024-06-10 11:09:01 Letter (Out) Campaigns, Generic Provider Campaigns, Generic Provider [facility] [id number] 350.1.13.10 4.2.7.2.686 [id number] [facility] 2024-06-01 21:44:00 2024-06-02 00:17:00 Emergency X MIGDALIA VILLEGAS SHIN[facility] E[facility] [id number] [facility] 2024-06-01 21:44:00 2024-06-02 00:17:00 Emergency Migdalia Villegas [facility] [id number] 350.1.13.10 4.2.7.2.686 [id number] [facility] 2024-03-30 10:06:11 2024-03-30 10:06:11 Outpatient [facility] [id number] 2022-08-17 00:00:00 2022-08-17 00:00:00 [facility] 1.2840.114 350.1.13.10 4.2.7.2.686 [id number] [facility] 2021-12-06 09:51:00 2021-12-06 13:09:00 Emergency X Tameka NOVOA [facility] E[facility] [id number] [facility] 2021-12-06 09:51:00 2021-12-06 13:09:[address] [facility] [id number] 350.1.13.10 4.2.7.2.686 [id number] [facility] 2021-12-06 00:00:00 2021-12-06 00:00:00 Orders Only Doctor Unassigned, [place] [facility] 1.2840.114 350.1.13.10 4.2.7.2.686 [id number] [facility] 2021-09-14 00:00:00 2021-09-14 00:00:00 [facility] 1.2840.114 350.1.13.10 4.2.7.2.686 [id number] [facility] 2021-09-12 00:00:00 2021-09-12 00:00:00 [facility] 1.2840.114 350.1.13.10 4.2.7.2.686 [id number] [facility] 2021-09-01 00:00:00 2021-09-01 00:00:00 Telephone pedro [facility] 1.2840.114 350.1.13.10 4.2.7.2.686 [id number] [facility] 2021-09-01 00:00:00 2021-09-01 00:00:00 Orders Only Doctor Unassigned, [place] [facility] 1.2840.114 350.1.13.10 4.2.7.2.686 [id number] [facility] 2021-08-30 00:00:00 2021-08-30 00:00:00 Telephone Basim Cota [facility] 1..114 350.1.13.10 4.2.7.2.686 [id number] [facility] 2021-08-22 00:00:00 2021-08-22 00:00:00 Transition of Care Nel Sherrell [facility] 1..114 350.1.13.10 4.2.7.2.686 [id number] [facility] 2021-08-17 08:35:00 2021-08-21 17:42:00 Inpatient U [facility] [id number] [facility] 2021-08-17 08:35:00 2021-08-21 17:42:00 Hospital Encounter Basim Cota Khaled F [facility] 1..114 350.1.13.10 4.2.7.2.686 [id number] [facility] 2021-08-18 00:00:00 2021-08-18 00:00:00 Telephone Dimitrios Abel [facility] 1..114 350.1.13.10 4.2.7.2.686 [id number] [facility] Results Test Description Test Time Test Comments Results Result Co mments Source [facility] (NA, K, CL, CO2, GLUCOSE, BUN, CREATININE, CA)2021-08-21 10:07:34* Test Item Value Reference Range Interpretation Comme nts NA (test code = 3423050947) 135 mmol/L 135-145 K (test code = 0356943762) 4.4 mmol/L 3.5-5.0 CL (test code = 7478685899) 102 mmol/L 98-108 CO2 TOTAL (test code = 2402237291) 26 mmol/L 23-31 AGAP (test code = 9984251737) 2-16 BUN (test code = 8161812591) 27 mg/dL 7-23 H GLUCOSE (test code = 7543838899) 104 mg/dL 70-110 CREATININE (test code = 6124115557) 1.49 mg/dL 0.60-1.25 H CALCIUM (test code = 4210624090) 9.0 mg/dL 8.6-10.6 eGFR (test code = 5699283877) mL/min/1.73m2 EBEN (test code = EBEN) Association [...] imaging tests). Lab Interpretation (test code = 11209-0) [facility]normal [facility] 10:07:34* Test Item Value Reference Range Interpretation Comme nts MAGNESIUM (test code = 9511924195) 1.9 mg/dL 1.7-2.4 Lab Interpretation (test cod e = 65384-9) Normal [facility] (NA, K, CL, CO2, GLUCOSE, BUN, CREATININE, CA)2021-08-20 10:22:59* Test Item Value Reference Range Interpretation Comme nts NA (test code = 0375384918) 137 mmol/L 135-145 K (test code = 0699002970) 4.4 mmol/L 3.5-5.0 CL (test code = 1484388473) 102 mmol/L 98-108 CO2 TOTAL (test code = 4729583603) 26 mmol/L 23-31 AGAP (test code = 4827259000) 2-16 BUN (test code = 1197556925) 31 mg/dL 7-23 H GLUCOSE (test code = 1702144279) 119 mg/dL 70-110 H CREATININE (test code = 7237939352) 1.56 mg/dL 0.60-1.25 H CALCIUM (test code = 3574690165) 9.1 mg/dL 8.6-10.6 eGFR (test code = 1144264856) mL/min/1.73m2 EBEN (test code = EBEN) Association [...] imaging tests). Lab Interpretation (test code = 44003-3) Abnormal [facility] 10:22:59* Test Item Value Reference Range Interpretation Comme nts MAGNESIUM (test code = 6387458113) 2.1 mg/dL 1.7-2.4 Lab Interpretation (test cod e = 13853-7) Normal [facility] WITH [id number] 09:42:15* Test Item Value Reference Range Interpretation Comme nts WBC (test code = 6690-2) See_Comment H [Automated SocialFlow] The system which generated this result transmitted reference range: 4.20 - 10.70 10*3/?L. The reference range was not used to interpret this result as normal/abnormal. RBC (test code = 789-8) See_Comment [Automated [employer]] The system which generated this result transmitted [...] 32.8 g/dL 31.2-35.0 RDW-SD (test code = 65010-2) 39.3 fL 38.5-51.6 RDW-CV (test code = 788-0) 12.5 % 12.1-15.4 PLT (test code = 777-3) See_Comment H [Automated messa ge] The system which generated this result transmitted reference range: 150 - 328 10*3/?L. The reference range was not used to interpret this result as normal/abnormal. MPV (test code = 15747-1) 9.3 fL 9.8-13.0 L NRBC/100 WBC (test code = 6232826694) See_Comment [Automated [employer] ssage] The system which generated this result transmitted reference range: 0.0 - 10.0 /100 WBCs. The reference range was not used to interpret this result as normal/abnormal. NRBC x10^3 (test code = 8988760186) <0.01 See_Comment [Automated messa ge] The system which generated this result transmitted reference range: 10*3/?L. The reference range was not used to interpret this result as normal/abnormal. GRAN MAT (NEUT) % (test code = 770-8) 60.5 % IMM GRAN % (test code = 9170539347) 0.30 % LYMPH % (test code = 736-9) 26.7 % MONO % (test code = 5905-5) 8.3 % EOS % (test code = 713-8) 3.4 % BASO % (test code = 706-2) 0.8 % GRAN MAT x10^3(ANC) (test code = 6955297750) 7.17 10*3/uL 1.99-6.95 H IMM GRAN x10^3 (test code = 4496094478) 0.03 10*3/uL 0.00-0.06 LYMPH x10^3 (test code = 731-0) 3.16 10*3/uL 1.09-3.23 MONO x10^3 (test code = 742-7) 0.98 10*3/uL 0.36-1.02 EOS x10^3 (test code = 711-2) 0.40 10*3/uL 0.06-0.53 BASO x10^3 (test code = 704-7) 0.10 10*3/uL 0.01-0.09 H Lab Interpretation (test code = 45545-4) Abnormal [facility] METABOLIC PANEL (NA, K, CL, CO2, GLUCOSE, BUN, CREATININE, CA)2021-08-19 10:52:12* Test Item Value Reference Range Interpretation Comme nts NA (test code = 2793697186) 136 mmol/L 135-145 K (test code = 3440227029) 3.8 mmol/L 3.5-5.0 CL (test code = 0496685739) 100 mmol/L 98-108 CO2 TOTAL (test code = 1268307513) 29 mmol/L 23-31 AGAP (test code = 1038119643) 2-16 BUN (test code = 7259393040) 32 mg/dL 7-23 H GLUCOSE (test code = 9286599536) 115 mg/dL 70-110 H CREATININE (test code = 6997113728) 1.67 mg/dL 0.60-1.25 H CALCIUM (test code = 6158699748) 9.1 mg/dL 8.6-10.6 eGFR (test code = 2900269832) mL/min/1.73m2 EBEN (test code = EBEN) Association [...] imaging tests). Lab Interpretation (test code = 24099-7) [facility] 10:52:12* Test Item Value Reference Range Interpretation Comme nts MAGNESIUM (test code = 7641305734) 1.9 mg/dL 1.7-2.4 Lab Interpretation (test cod e = 62463-3) Normal [facility] (NA, K, CL, CO2, GLUCOSE, BUN, CREATININE, CA)2021-08-18 21:19:06* Test Item Value Reference Range Interpretation Comme nts NA (test code = 9515016537) 135 mmol/L 135-145 K (test code = 8184857777) 3.9 mmol/L 3.5-5.0 CL (test code = 3454883093) 98 mmol/L 98-108 CO2 TOTAL (test code = 1396228911) 30 mmol/L 23-31 AGAP (test code = 9660863243) 2-16 BUN (test code = 9105477202) 29 mg/dL 7-23 H GLUCOSE (test code = 6267138217) 121 mg/dL 70-110 H CREATININE (test code = 2605399740) 1.58 mg/dL 0.60-1.25 H CALCIUM (test code = 1837684261) 8.9 mg/dL 8.6-10.6 eGFR (test code = 3036552342) mL/min/1.73m2 EBEN (test code = EBEN) Association [...] imaging tests). Lab Interpretation (test code = 50509-0) Abnormal [facility] METABOLIC PANEL (NA, K, CL, CO2, GLUCOSE, BUN, CREATININE, CA)2021-08-18 10:04:44* Test Item Value Reference Range Interpretation Comme nts NA (test code = 0467962914) 135 mmol/L 135-145 K (test code = 7936415696) 4.0 mmol/L 3.5-5.0 Slight hemolysis CL (test code = 4975098992) 101 mmol/L 98-108 CO2 TOTAL (test code = 6213742054) 29 mmol/L 23-31 AGAP (test code = 1481648724) 2-16 BUN (test code = 3953855812) 32 mg/dL 7-23 H Slight hemolysis GLUCOSE (test code = 8621572205) 114 mg/dL 70-110 H CREATININE (test code = 7354844556) 1.54 mg/dL 0.60-1.25 H CALCIUM (test code = 6938008951) 8.8 mg/dL 8.6-10.6 eGFR (test code = 1376963538) mL/min/1.73m2 EBEN (test code = EBEN) Association [...] imaging tests). Lab Interpretation (test code = 49502-2) [facility]normal [facility] 10:04:44* Test Item Value Reference Range Interpretation Comme nts MAGNESIUM (test code = 6082361583) 2.2 mg/dL 1.7-2.4 Lab Interpretation (test cod e = 70134-0) Normal [facility] WITH [id number] 09:24:38* Test Item Value Reference Range Interpretation Comme nts WBC (test code = 6690-2) See_Comment [Automated [employer]] The system which generated this result transmitted reference range: 4.20 - 10.70 10*3/?L. The reference range was not used to interpret this result as normal/abnormal. RBC (test code = 789-8) See_Comment [Automated [employer]] The system which generated this result transmitted [...] 33.3 g/dL 31.2-35.0 RDW-SD (test code = 93568-5) 39.1 fL 38.5-51.6 RDW-CV (test code = 788-0) 12.6 % 12.1-15.4 PLT (test code = 777-3) See_Comment H [Automated messa ge] The system which generated this result transmitted reference range: 150 - 328 10*3/?L. The reference range was not used to interpret this result as normal/abnormal. MPV (test code = 34916-1) 9.5 fL 9.8-13.0 L NRBC/100 WBC (test code = 0308974009) See_Comment [Automated [employer] ssage] The system which generated this result transmitted reference range: 0.0 - 10.0 /100 WBCs. The reference range was not used to interpret this result as normal/abnormal. NRBC x10^3 (test code = 0507406309) <0.01 See_Comment [Automated messa ge] The system which generated this result transmitted reference range: 10*3/?L. The reference range was not used to interpret this result as normal/abnormal. GRAN MAT (NEUT) % (test code = 770-8) 65.3 % IMM GRAN % (test code = 6924797420) 0.20 % LYMPH % (test code = 736-9) 23.3 % MONO % (test code = 5905-5) 7.0 % EOS % (test code = 713-8) 3.5 % BASO % (test code = 706-2) 0.7 % GRAN MAT x10^3(ANC) (test code = 5922110052) 6.63 10*3/uL 1.99-6.95 IMM GRAN x10^3 (test code = 0031092910) <0.03 0.00-0.06 LYMPH x10^3 (test code = 731-0) 2.36 10*3/uL 1.09-3.23 MONO x10^3 (test code = 742-7) 0.71 10*3/uL 0.36-1.02 EOS x10^3 (test code = 711-2) 0.35 10*3/uL 0.06-0.53 BASO x10^3 (test code = 704-7) 0.07 10*3/uL 0.01-0.09 Lab Interpretation (test code = 92954-7) [facility]normal [facility] (A1C)2021-08-18 02:37:07* Test Item Value Reference Range Interpretation Comme nts HGB A1C (test code = 4548-4) 5.8 % 4.0-5.7 H EBEN (test code = EBEN) Reference RangesNormal: <5.7%Prediabetes: 5.7 - 6.4%Diabetes: > 6.5% Lab Interpretation (test code = 82627-1) [facility]normal [facility] [id number] 01:03:37* Test Item Value Reference Range Interpretation Comments TROPONIN I (test code = 5467122346) 0.101 ng/mL See_Comment H [Automated message] The [...] of biotin. Lab Interpretation (test code = 37536-7) Abnormal [facility] (TTE)2021-08-17 22:14:20* Test Item Value Reference Range Interpretation Comme nts Ao root annulus (test code = 6444829155) 3.3 cm Ao root diam (test code = 3244836332) 3.30 cm Aortic root (test code = 1548383912) 3.3 cm LA size (test code = 3986372398) 3.7 cm LVOT diameter (test code = 9527097320) 2.00 cm LVIDD (test code = 4624543299) 5.90 cm IVS (test code = 8379492677) 1.26 cm Interventricular Septum Diastolic Thickness by 2D (test code = 0729505) 1.26 cm LVPWD (test code = 0731835013) 1.19 cm PW (test code = 9870642970) 1.19 cm 0.6-1.1 EF(Teich) (test code = 2569269049) 46.60 % LVIDS (test code = 6063611028) 4.50 cm FS (test code = 6598525678) 24 % EF - 2D (test code = 59484840) 46.60 % LAV(MOD-sp4) (test code = 9060758915) 65.30 mL MV Peak E Narciso (test code = 5157533014) 126.4 cm/s E wave decelartion time (test code = 8629043719) 0.14 s MV Prop V (test code = 6713503601) 35.00 cm/s LVOT stroke volume (test code = 7464114598) 45.10 cm3 LVOT peak narciso (test code = 7686119864) 90.0 cm/s LVOT mn grad (test code = 8203655764) mmHg AV LVOT peak gradient (test code = 7831499152) mmHg LVOT peak VTI (test code = 7263955849) 14.4 cm LV V1 mean (test code = 0180092714) 63.00 cm/s Aortic valve mean velocity (test code = 8403167777) 76.8 cm/s Ao peak narciso (test code = 5240602318) 125.5 cm/s Ao VTI (test code = 9712275519) 17.0 cm AV area by cont VTI (test code = 7783659230) 2.6 cm2 AV area peak narciso (test code = 2800636795) 2.2 cm2 Ao max PG (test code = 1168442827) 6.30 mm[Hg] AV peak gradient (test code = 5278932139) mmHg AV valve area (test code = 2960129743) 2.60 cm2 AV mean gradient (test code = 0839859913) mmHg TR Peak Nraciso (test code = 4335975613) 119.4 cm/s Triscuspid Valve Regurgitation Peak Gradient (test code = 3309643764) mmHg Tapse (test code = 1076159516) 1.95 cm LA volume (BP) (test code = 0330690469) 73.5 mL LAV(MOD-sp2) (test code = 8342921850) 74.00 mL LA Volume Index (BP) (test code = 8079182144) 32.5 mL/m2 LV Diastolic Volume (BP) (test code = 6001119064) 232.2 mL EF(MOD-bp) (test code = 6587703508) 33.10 % LV Systolic Volume (BP) (test code = 4354706086) 155.2 mL SV(MOD-bp) (test code = 3097371524) 76.90 mL EF (test code = 6317509118) 33 % Left Ventricular Stroke Volume by 2-D Biplane-MOD (test code = 1222591) 76.9 mL Radiology Study observation (narrative) (test code = 06219-9) EBEN (test code = EBEN) ?Left?Ventricle: Left [...] kg) 2.3 sq meters 183/[address] [facility] (74717) (ALB,T.PRO,BILI T,BU/BC,ALT,AST,ALK PHOS)2021-08-17 17:59:20* Test Item Value Reference Range Interpretation Comme nts TOTAL BILI (test code = 8395189904) 0.4 mg/dL 0.1-1.1 BILI UNCON (test code = 9081747261) 0.4 mg/dL 0.1-1.1 BILI CONJ (test code = 9422827482) 0.0 mg/dL 0.0-0.3 T PROTEIN (test code = 2738975284) 6.4 g/dL 6.3-8.2 ALBUMIN (test code = 2592079459) 3.7 g/dL 3.5-5.0 ALK PHOS (test code = 0371770219) 64 U/L 34-122 ALTv (test code = 1742-6) 39 U/L 5-50 AST(SGOT) (test code = 1839208384) 30 U/L 13-40 Lab Interpretation (test cod e = 65567-5) Normal [facility]ERR[facility] [id number] 17:21:19* Test Item Value Reference Range Interpretation Comme nts FERRITIN (test code = 2131321617) 29.7 ng/mL 18.0-464.0 EBEN (test code = EBEN) Biotin has been reported to cause a negative bias, interpret results relative to patient's use of biotin. Lab Interpretation (test code = 97743-5) Normal [facility]YROID STIMULATING [id number] 17:14:24 * Test Item Value Reference Range Interpretation Comme nts TSH (test code = 5310654122) See_Comment [Automated [employer]igma[employer] ge] The system which generated this result transmitted reference range: 0.45 - 4.70 mIU/L. The reference range was not used to interpret this result as normal/abnormal. Lab Interpretation (test code = 44953-7) Normal [facility]kinN-TERMINAL [id number] 16:55:55* Test Item Value Reference Range Interpretation Comme nts NT-proBNP (test code = 2199050370) 5070 pg/mL See_Comment H [Automated message] The system which generated this result transmitted reference range: <=125. The reference range was not used to interpret this result as normal/abnormal. EBEN (test code = EBEN) Biotin has been reported to cause a negative bias, interpret results relative to patient's use of biotin. Lab Interpretation (test code = 46063-6) Abnormal [facility] [id number] 16:55:55* Test Item Value Reference Range Interpretation Comments TROPONIN I (test code = 0379209764) 0.117 ng/mL See_Comment H [Automated message] The [...] of biotin. Lab Interpretation (test code = 29064-8) Abnormal [facility]kinIRON [id number] 16:52:53* Test Item Value Reference Range Interpretation Comme nts IRON (test code = 3059852330) 51 ug/dL 50-160 TIBC (test code = 9047498856) 298 ug/dL 250-410 % FE SAT (test code = 3828353208) 17 % 20-50 L Lab Interpretation (test cod e = 95802-6) [facility]normal [facility]2022-04-14 16:41:35* Test Item Value Reference Range Interpretation Comme nts MAGNESIUM (test code = 0397955165) 1.6 mg/dL 1.7-2.4 L Lab Interpretation (test cod e = 05850-3) Abnormal [facility]OS[facility]2022-04-14 16:41:35* Test Item Value Reference Range Interpretation Comme nts PHOSPHORUS (test code = 3660630472) 4.0 mg/dL 2.5-5.0 Lab Interpretation (test cod e = 25272-5) Normal [facility] METABOLIC PAN[facility] (NA, K, CL, CO2, GLUCOSE, BUN, CREATININE, CA)2021-08-17 16:41:35* Test Item Value Reference Range Interpretation Comme nts NA (test code = 7918663879) 134 mmol/L 135-145 L K (test code = 6565466203) 3.6 mmol/L 3.5-5.0 CL (test code = 3692526590) 99 mmol/L 98-108 CO2 TOTAL (test code = 7476839843) 32 mmol/L 23-31 H AGAP (test code = 9800950705) 2-16 BUN (test code = 0217526059) 24 mg/dL 7-23 H GLUCOSE (test code = 8618186978) 111 mg/dL 70-110 H CREATININE (test code = 2971965372) 1.60 mg/dL 0.60-1.25 H CALCIUM (test code = 8884229929) 8.8 mg/dL 8.6-10.6 eGFR (test code = 0993731093) mL/min/1.73m2 EBEN (test code = EBEN) Association [...] imaging tests). Lab Interpretation (test code = 17236-2) Abnormal [facility] WITH [id number] 16:00:05* Test Item Value Reference Range Interpretation [...] 33.7 g/dL 31.2-35.0 RDW-SD (test code = 88129-5) 39.5 fL 38.5-51.6 RDW-CV (test code = 788-0) 12.6 % 12.1-15.4 PLT (test code = 777-3) See_Comment H [Automated messa ge] The system which generated this result transmitted reference range: 150 - 328 10*3/?L. The reference range was not used to interpret this result as normal/abnormal. MPV (test code = 44618-9) 9.4 fL 9.8-13.0 L NRBC/100 WBC (test code = 5913790589) See_Comment [Automated [employer] ssage] The system which generated this result transmitted reference range: 0.0 - 10.0 /100 WBCs. The reference range was not used to interpret this result as normal/abnormal. NRBC x10^3 (test code = 4222034194) <0.01 See_Comment [Automated messa ge] The system which generated this result transmitted reference range: 10*3/?L. The reference range was not used to interpret this result as normal/abnormal. GRAN MAT (NEUT) % (test code = 770-8) 65.6 % IMM GRAN % (test code = 0640259463) 0.20 % LYMPH % (test code = 736-9) 23.8 % MONO % (test code = 5905-5) 6.7 % EOS % (test code = 713-8) 3.2 % BASO % (test code = 706-2) 0.5 % GRAN MAT x10^3(ANC) (test code = 2169728154) 6.58 10*3/uL 1.99-6.95 IMM GRAN x10^3 (test code = 0825018806) <0.03 0.00-0.06 LYMPH x10^3 (test code = 731-0) 2.39 10*3/uL 1.09-3.23 MONO x10^3 (test code = 742-7) 0.67 10*3/uL 0.36-1.02 EOS x10^3 (test code = 711-2) 0.32 10*3/uL 0.06-0.53 BASO x10^3 (test code = 704-7) 0.05 10*3/uL 0.01-0.09 Lab Interpretation (test code = 97411-7) Abnormal [facility] Notes Date/Time Note Provider Source 2024-06-02 00:15:00 Pt given printed and verbal discharge instructions regarding right foot pain, acute gout of right foot, and hypertension, encouraged hydration, Prescriptions provided to preferred pharmacy Discussed ibuprofen and to take with food to avoid GI distress. Discussed antibiotic therapy and to take until all completed unless adverse reaction occurs - if occurs, discontinue medication and follow up with pcp/seek medical attention Discussed Tylenol # 3 side affects and to avoid driving/operating machinery/or engaging in activities requiring alertness while taking. Pt verbalized understanding of instructions, pt awake alert oriented, resp reg unlabored, skin w/d, color appropriate for race, moves all ext well,pt encouraged to follow up with pcp Advised to seek medical attention for new/prolonged/worsening of symptoms No adverse reaction to meds given in ER noted upon discharge Awake, alert oriented, resp reg unlabored, skin w/d, pt leaving amb with steady gait, in no apparent distress, A [facility] 2024-06-01 21:38:46 Patient arrived ambulatory to ED c/o right foot gout pain that started last night. Patient states being d/c from [facility] with prescriptions about 30 minutes ago. States normally gets a shot but they didn't give him one this time. Hx of HTN takes BP medications for it. A Ding RN [facility]"
--- NOTE | 2024-06-28 08:47 | RAD REPORT ---
Exam:Knee Right 3 View HISTORY: Right knee pain FINDINGS: No acute fracture or dislocation seen And intramedullary james and screws have been placed into the distal femur
[2024-06-28] MEDS ORDERED: IBUPROFEN 400 MG TAB ONE (08:51)
[2024-06-28] MEDS ORDERED: dexAMETHasone 10 MG/ML VIAL ONE (09:21)
[2024-06-28] MEDS ORDERED: KETOROLAC 30 MG/ML INJ ONE (09:22)
[2024-06-28] MEDS ORDERED: MORPHINE 4 MG/ML SYR ONE (09:22)
[2024-06-28] MEDS ORDERED: COLCHICINE 0.6 MG TAB ONE (09:22)
[2024-06-28] MEDS ORDERED: AMLODIPINE 10 MG TAB ONE (09:22)
[2024-06-28] MEDS ORDERED: NA CHLORIDE 0.9% 500 ML ONE (09:23)
[2024-06-28 09:52] LABS: Absolute Basophils 0.1 K/uL (0-0.5); Absolute Eosinophils 0.6 K/uL (0-0.5); Absolute Lymphocytes (CBC) 1.2 K/uL (0.7-4.9); Absolute Monocytes 0.8 K/uL (0.1-1.3); Absolute Neutrophil 7.5 K/uL (1.8-8.0); Basophils % 0.9 % (0-1.3); Hematocrit 37.9 % (39.6-49.0); Hemoglobin 12.7 g/dL (13.6-17.9); Lymphocytes % 11.9 % (15.3-44.8); MCH 29.4 pg (27.0-35.0); MCHC 33.5 g/dL (32.0-36.0); MCV 87.9 fL (80-100); MPV 7.9 fL (7.6-11.3); Monocytes % 7.5 % (3.3-12.3); Neutrophils % 73.7 % (41.7-73.7); Platelets 281 thou/uL (152-406); RBC Red Blood Cell Count 4.31 M/uL (4.33-5.43); Red Cell Distribution Width 14.1 % (12.1-15.2)
[2024-06-28 10:06] LABS: Albumin 3.4 g/dL (3.4-5.0); Albumin/Globulin Ratio 0.9 (1.1-1.8); Anion Gap 11.2 mEq/L (5.0-15.0); Bilirubin Total 0.8 mg/dL (0.2-1.0); Globulin 3.8 g/dL (2.3-3.5); Potassium 3.2 mEq/L (3.5-5.1); Protein, Total 7.2 g/dL (6.4-8.2); Uric Acid 5.3 mg/dL (3.5-7.2)
--- NOTE | 2024-06-28 10:35 | ER ---
Nurse's Notes [facility] Name: Ezequiel Padron Age: 39 yrs Sex: Male : 1985 Arrival Date: 06/28/2024 Time: 07:56 Bed 20 Private MD: Diagnosis: Chronic kidney disease, unspecified;Essential (primary) hypertension;Pain in right knee;Gout, unspecified Presentation: 06/28 08:40 Chief complaint: Right knee pain 10. Hx of gout, feels like typical flare up. hb Coronavirus screen: At this time, the client does not indicate any symptoms associated with coronavirus-19. Ebola Screen: No symptoms or risks identified at this time. Initial Sepsis Screen: Does the patient meet any 2 criteria? No. Patient's initial sepsis screen is negative. Does the patient have a suspected source of infection? No. Patient's initial sepsis screen is negative. Risk Assessment: Do you want to hurt yourself or someone else? Patient reports no desire to harm self or others. Onset of symptoms was June 28, 2024. 08:40 Method Of Arrival: Wheelchair 08:40 Acuity: HERMELINDA 2 hb Triage Assessment: 09:37 General: Appears in no apparent distress. uncomfortable, Behavior is calm, cooperative, bp appropriate for age. Pain: Complains of pain in right knee. EENT: No deficits noted. Neuro: No deficits noted. Cardiovascular: No deficits noted. Respiratory: No deficits noted. GI: No signs and/or symptoms were reported involving the gastrointestinal system. : No signs and/or symptoms were reported regarding the genitourinary system. Derm: No deficits noted. Musculoskeletal: No deficits noted. Injury Description: R KNEE SWELLING. Historical: - Allergies: 08:41 Nitroglycerin; hb - PMHx: 08:41 Congestive heart failure; Gout; Hypertensive disorder; hb - PSHx: 08:41 R femur; hb - Immunization history:: Adult Immunizations up to date. - Infectious Disease History:: Denies. - Social history:: Smoking status: Patient denies any tobacco usage or history of. - Family history:: not pertinent. Screenin:37 [facility] ED Fall Risk Assessment (Adult) History of falling in the last 3 months, bp including since admission No falls in past 3 months (0 pts) Confusion or Disorientation No (0 pts) Intoxicated or Sedated No (0 pts) Impaired Gait No (0 pts) Mobility Assist Device Used No (0 pt) Altered Elimination No (0 pt) Score/Fall Risk Level 0 - 2 = Low Risk Oriented to surroundings. Abuse screen: Denies threats or abuse. Denies injuries from another. Nutritional screening: No deficits noted. Tuberculosis screening: No symptoms or risk factors identified. Assessment: 09:38 General: Appears in no apparent distress. uncomfortable, Behavior is calm, cooperative, bp appropriate for age. Vital Signs: 08:40 BP 214 / 138; Pulse 93; Resp 18; Temp 98; Pulse Ox 100% on R/A; Pain 10/10; hb 11:21 BP 185 / 95; Pulse 82; Resp 16; Temp 98; Pulse Ox 100% ; bp 08:40 Pain Scale: Adult hb ED Course: 07:58 Patient arrived in ED. mr 08:13 Baldemar Harden MD is Attending Physician. bernabe 08:39 Knee Right 3 View In Process Unspecified. EDMS 08:41 Triage completed. hb 08:41 Arm band placed on. hb 08:45 Hesham Beavers, SAMANTHA is Primary Nurse. bp 09:37 Patient has correct armband on for positive identification. bp 09:37 Inserted saline lock: 22 gauge in right forearm, using aseptic technique. Blood bp collected. Flushed with 10 mL NS. 10:34 Hubert Parson MD is Referral Physician. bernabe 10:41 Myles wrap to right knee. em1 11:21 Provided Education on: na. bp 11:21 No provider procedures requiring assistance completed. IV discontinued, intact, bp bleeding controlled, No redness/swelling at site. Pressure dressing applied. Administered Medications: 08:54 Not Given (Duplicate Order): [id number] mg PO once bernabe 09:35 Drug: morphine IVP or IV 4 mg IVP once over 4 mins Route: IVP; Infused Over: 4 mins; bp Site: right forearm; 11:23 Follow up: Response: No adverse reaction bp 09:35 Drug: NS 0.9% IV 500 ml 500 ml IV at 1 bolus once; to be given as a bolus over 30 bp minutes Volume: 500 ml; Route: IV; Rate: 1 bolus; Site: right forearm; 11:22 Follow up: IV Status: Completed infusion bp 09:36 Drug: Ketorolac IVP 30 mg IVP once Route: IVP; Site: right forearm; bp 11:23 Follow up: Response: No adverse reaction bp 09:36 Drug: colchicine 0.6 mg 1.2 mg PO once Route: PO; bp 11:23 Follow up: Response: No adverse reaction bp 09:36 Drug: Colcrys PO 0.6 mg PO once; 1 hour later Route: PO; bp 11:23 Follow up: Response: No adverse reaction bp 09:36 Drug: Norvasc PO 10 mg PO once Route: PO; bp 11:23 Follow up: Response: No adverse reaction bp 09:36 Drug: Decadron - Dexamethasone IVP 10 mg IVP once Route: IVP; Site: right forearm; bp 11:23 Follow up: Response: No adverse reaction bp Medication: 09:38 VIS not applicable for this client. bp Outcome: 10:35 Discharge ordered by MD. kidd 11:21 Discharged to home via wheelchair, with family, bp 11:21 Condition: stable 11:21 Discharge instructions given to patient, Instructed on discharge instructions, follow up and referral plans. medication usage, Demonstrated understanding of instructions, follow-up care, medications, Prescriptions given X 5 11:24 Patient left the ED. bp Signatures: Dispatcher [employer] EDMS Baldemar Harden MD MD cha Rivera, Mary, [facility] [place] em1 Sherrie [facility], SAMANTHA RN Hesham Sanchez RN RN bp
--- NOTE | 2024-06-28 10:35 | EDPHYS ---
Physician Documentation [facility] Name: Ezequiel Padron Age: 39 yrs Sex: Male : 1985 Arrival Date: 06/28/2024 Time: 07:56 Bed 20 Private MD: ED Physician Baldemar Harden HPI: 06/28 10:29 This 39 yrs old Black Male presents to ER via Wheelchair with complaints of Knee Pain. bernabe 10:29 The patient presents with decreased range of motion, pain, that is acute. The bernabe complaints affect the right knee. Context: resulted from an unknown cause, the patient can partially bear weight, the patient is able to ambulate, with mild difficulty. Onset: The symptoms/episode began/occurred 2 day(s) ago. Modifying factors: The symptoms are alleviated by elevating leg, remaining still, the symptoms are aggravated by movement, weight bearing. Associated signs and symptoms: The patient has no apparent associated signs or symptoms. Severity of symptoms: At their worst the symptoms were mild, moderate, in the emergency department the symptoms are unchanged. The patient has experienced similar episodes in the past, multiple times. Historical: - Allergies: 08:41 Nitroglycerin; hb - PMHx: 08:41 Congestive heart failure; Gout; Hypertensive disorder; hb - PSHx: 08:41 R femur; hb - Immunization history:: Adult Immunizations up to date. - Infectious Disease History:: Denies. - Social history:: Smoking status: Patient denies any tobacco usage or history of. - Family history:: not pertinent. ROS: 10:29 Constitutional: Negative for fever, chills, and weight loss, Eyes: Negative for injury, bernabe pain, redness, and discharge, ENT: Negative for injury, pain, and discharge, Neck: Negative for injury, pain, and swelling, Cardiovascular: Negative for chest pain, palpitations, and edema, Respiratory: Negative for shortness of breath, cough, wheezing, and pleuritic chest pain, Abdomen/GI: Negative for abdominal pain, nausea, vomiting, diarrhea, and constipation, Back: Negative for injury and pain, : Negative for injury, bleeding, discharge, and swelling, Skin: Negative for injury, rash, and discoloration, Neuro: Negative for headache, weakness, numbness, tingling, and seizure, Psych: Negative for depression, anxiety, suicide ideation, homicidal ideation, and hallucinations, Allergy/Immunology: Negative for hives, rash, and allergies, Endocrine: Negative for neck swelling, polydipsia, polyuria, polyphagia, and marked weight changes, Hematologic/Lymphatic: Negative for swollen nodes, abnormal bleeding, and unusual bruising, 10:29 MS/extremity: Positive for decreased range of motion, pain, tenderness, of the right knee, Exam: 10:29 Constitutional: This is a well developed, well nourished patient who is awake, alert, bernabe and in no acute distress. Head/Face: Normocephalic, atraumatic. Eyes: Pupils equal round and reactive to light, extra-ocular motions intact. Lids and lashes normal. Conjunctiva and sclera are non-icteric and not injected. Cornea within normal limits. Periorbital areas with no swelling, redness, or edema. ENT: Nares patent. No nasal discharge, no septal abnormalities noted. Tympanic membranes are normal and external auditory canals are clear. Oropharynx with no redness, swelling, or masses, exudates, or evidence of obstruction, uvula midline. Mucous membranes moist. Neck: Trachea midline, no thyromegaly or masses palpated, and no cervical lymphadenopathy. Supple, full range of motion without nuchal rigidity, or vertebral point tenderness. No Meningismus. Chest/axilla: Normal chest wall appearance and motion. Nontender with no deformity. No lesions are appreciated. Cardiovascular: Regular rate and rhythm with a normal S1 and S2. No gallops, murmurs, or rubs. Normal PMI, no JVD. No pulse deficits. Respiratory: Lungs have equal breath sounds bilaterally, clear to auscultation and percussion. No rales, rhonchi or wheezes noted. No increased work of breathing, no retractions or nasal flaring. Abdomen/GI: Soft, non-tender, with normal bowel sounds. No distension or tympany. No guarding or rebound. No evidence of tenderness throughout. Back: No spinal tenderness. No costovertebral tenderness. Full range of motion. Male : Normal genitalia with no discharge or lesions. Skin: Warm, dry with normal turgor. Normal color with no rashes, no lesions, and no evidence of cellulitis. Neuro: Awake and alert, GCS 15, oriented to person, place, time, and situation. Cranial nerves II-XII grossly intact. Motor strength 5/5 in all extremities. Sensory grossly intact. Cerebellar exam normal. Normal gait. Psych: Awake, alert, with orientation to person, place and time. Behavior, mood, and affect are within normal limits. 10:29 Musculoskeletal/extremity: ROM: full active range of motion, full passive range of motion, in the lateral aspect of right knee, medial aspect of right knee and right knee, limited active range of motion due to pain, limited passive range of motion due to pain, DVT Exam: no swelling, negative Homans' sign noted on exam, no appreciated bluish discoloration, no erythema, no increased warmth, pain, tenderness, that is mild, of the right leg, of the right knee, Vital Signs: 08:40 BP 214 / 138; Pulse 93; Resp 18; Temp 98; Pulse Ox 100% on R/A; Pain 10/10; hb 11:21 BP 185 / 95; Pulse 82; Resp 16; Temp 98; Pulse Ox 100% ; bp 08:40 Pain Scale: Adult hb MDM: 08:14 Medical Screening Exam initiated bernabe 10:44 Differential diagnosis: closed fracture, contusion, abrasion, tendonitis. Data bernabe reviewed: vital signs, nurses notes, lab test result(s), radiologic studies, plain films. Consideration of Admission/Observation Escalation of care including admission/observation considered. I considered the following discharge prescriptions or medication management in the emergency department Medications were administered in the Emergency Department. See MAR. Independent interpretation of the following test(s) in the Emergency Department X-Ray: My interpretation is RIGHT KNEE. Test considered but Not performed: EKG: NO EKG. Historians other than the Patient: PT WELL INFORMED. Care significantly affected by the following chronic conditions: Hypertension, Congestive Heart Failure, GOUT. 06/28 08:57 Order name: CBC with Diff; Complete Time: 10:22 [facility] 06/28 08:57 Order name: Comprehensive Metabolic Panel; Complete Time: 10:22 bernabe 06/28 08:57 Order name: Uric Acid; Complete Time: 10:22 bernabe 06/28 08:39 Order name: Knee Right 3 View; Complete Time: 10:22 [facility] 06/28 10:29 Order name: Myles wrap-joint; Complete Time: 10:41 bernabe Administered Medications: 08:54 Not Given (Duplicate Order): [id number] mg PO once bernabe 09:35 Drug: morphine IVP or IV 4 mg IVP once over 4 mins Route: IVP; Infused Over: 4 mins; bp Site: right forearm; 11:23 Follow up: Response: No adverse reaction bp 09:35 Drug: NS 0.9% IV 500 ml 500 ml IV at 1 bolus once; to be given as a bolus over 30 bp minutes Volume: 500 ml; Route: IV; Rate: 1 bolus; Site: right forearm; 11:22 Follow up: IV Status: Completed infusion bp 09:36 Drug: Ketorolac IVP 30 mg IVP once Route: IVP; Site: right forearm; bp 11:23 Follow up: Response: No adverse reaction bp 09:36 Drug: colchicine 0.6 mg 1.2 mg PO once Route: PO; bp 11:23 Follow up: Response: No adverse reaction bp 09:36 Drug: Colcrys PO 0.6 mg PO once; 1 hour later Route: PO; bp 11:23 Follow up: Response: No adverse reaction bp 09:36 Drug: Norvasc PO 10 mg PO once Route: PO; bp 11:23 Follow up: Response: No adverse reaction bp 09:36 Drug: Decadron - Dexamethasone IVP 10 mg IVP once Route: IVP; Site: right forearm; bp 11:23 Follow up: Response: No adverse reaction bp Disposition Summary: 06/28/24 10:35 Discharge Ordered Notes: Location: Home bernabe Problem: new bernabe Symptoms: have improved bernabe Condition: Fair bernabe Diagnosis - Chronic kidney disease, unspecified bernabe - Essential (primary) hypertension bernabe - Pain in right knee bernabe - Gout, unspecified bernabe Followup: bernabe - With: Private Physician - When: 2 - 3 days - Reason: Recheck today's complaints, Continuance of care, Re-evaluation by your physician Followup: bernabe - With: Hubert Parson MD - When: 2 - 3 days - Reason: Recheck today's complaints, Re-evaluation by your physician Discharge Instructions: - Discharge Summary Sheet bernabe - Joint Pain bernabe - Gout bernabe - Hypertension, Adult bernabe - Musculoskeletal Pain bernabe - Acute Knee Pain, Adult bernabe - How to Use Cold Therapy, [id number] bernabe - Hypertension, Adult, [id number] bernabe - Low-Purine Eating Plan bernabe - Gout, [id number] bernabe - How to Take Your Blood Pressure, [id number] [facility] - Managing Your Hypertension [facility] Forms: - Medication Reconciliation Form [facility] - Antibiotic Education bernabe - Prescription Opioid Use bernabe - Patient Portal Instructions [facility] - Leadership Thank You Letter [facility] Prescriptions: - colchicine 0.6 mg Oral capsule - take 2 capsule ORAL route daily TAKE 2 TABS PO DAILY X 1 THE 1 TAB IN 1 HOUR, bernabe MAX 3 TABS DAILY; 15 capsule; Refills: 0, Product Selection Permitted - Lopressor 50 mg Oral Tablet - take 1 tablet ORAL route every 12 hours; 30 tablet; Refills: 0, Product bernabe Selection Permitted - Norvasc 10 mg Oral Tablet - take 1 tablet ORAL route once daily; 30 tablet; Refills: 0, Product Selection [facility] Permitted - Tramadol 50 mg Oral tablet - take 1 tablet ORAL route every 8 hours as needed; 18 tablet; Refills: 0, [facility] Product Selection Permitted - Medrol ([place]) 4 mg Oral Tablets, Dose Pack - take 1 tablet ORAL route as directed - follow package instructions; 1 packet; [facility] Refills: 0, Product Selection Permitted Signatures: Dispatcher [employer] EDBaldemar Stephens MD MD [facility] Sherrie Medina, RN RN Hesham Beavers, RN RN bp Corrections: (The following items were deleted from the chart) 08:39 08:14 Knee Left 3 View+RAD.RAD.HENNY ordered. [facility] 10:41 10:29 Crutches ordered. [facility] em1
[2024-06-28 11:28] VITALS: TEMP 98; O2SAT 100
[2024-06-28 11:30] VITALS: BP 185/95
== END 2024-06-28 11:24 | disposition home or self-care (01) ==
LOC: ER 07:56
DX: M10.9 Gout, unspecified (principal); I13.0 Hypertensive heart and chronic kidney disease with heart failure and stage 1 through stage 4 chronic kidney disease, or unspecified chronic kidney disease; N18.9 Chronic kidney disease, unspecified; I50.9 Heart failure, unspecified
CPT/HCPCS: 96361; 85025; 36415; 84550; 80053; 73562; 96375; 96374; 99284; J1100; J7040

== ENCOUNTER 2024-07-17 09:29 | Emergency (ER) | payer OTHER ==
--- OUTSIDE RECORDS SUMMARY | 2024-07-17 09:32 | XMS REPORT | Continuity of Care Document ---
Author Name Unknown Address [address] [place] [address] [facility] Address [address] [address] 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 Name Role Phone Pcp, Patient Does Not Have A Primary Care Physic pat Doctor Unassigned, [place] Attending Clinician U jose e Figueroa, Generic Provider Attending Clinician Unavailable MIGDALIA VILLEGAS Attending Clinician Unavailable MIGDALIA VILLEGAS Attending Clinician Unavailable Migdalia Driver Attending Clinician [phone] Basim Cota MD Attending Clinician + Tameka NOVOA Attending Clinician Unavailable Tameka Garcia Attending Clinician [phone] Doctor Unassigned, [place] Attending Clinician U Sherrell Erazo RN Attending Clinician Unavailable DIMITRIOS ABEL Attending Clinician UnavailDimitrios Kearney MD Attending Clinician [phone] DIMITRIOS ABEL Admitting Clinician Dimitrios Kasper MD Admitting Clinician [phone] Payers Payer Name Policy Type Policy Number Effective Date Expirati on Date Source Problems Condition Name Condition Details Condition Category Status Onset Date Resolution Date Last Treatment Date Treating Clinician Comments Source SOB (shortness of breath) SOB (shortness of breath) Disease Active 4-14 00:00: 00 [facility] Obesity (BMI 30-39.9) Obesity (BMI 30-39.9) Disease Active 7-21 00:00: 00 [facility] Allergies, Adverse Reactions, Alerts Allergy Name Allergy Type Status Severity Reaction(s) Onset Date Inactive Date Treating Clinician Comments Source MORPHINE DRUG INGREDI Active Unknown-Cmnt 12-06 00:00: 00 [facility] Morphine Propensi ty to adverse reaction s Active Unknown - See comments 12-06 00:00: 00 Patient does not know reaction [facility] NO KNOWN ALLERGIE S Drug Class Active [facility] Social History Social Habit Start Date Stop Date Quantity Comments Source History SDOH Alcohol Std Drinks [facility] History SDOH Alcohol Binge [facility] Alcohol Frequency [facility] History of Social function 2024-06-01 00:00:00 2024-06-01 00:00:00 [facility] Exposure to SARS-CoV-2 (event) 2021-11-26 00:00:00 2021-12-06 12:55:00 Not sure [facility] Alcohol intake 2021-12-06 00:00:00 2021-12-06 00:00:00 Current drinker of alcohol (finding) [facility] Alcohol Comment 2016-11-22 00:00:00 2016-11-22 00:00:00 Daily [facility] Alcoholic beverage intake 2016-11-22 00:00:00 2016-11-22 00:00:00 Current drinker of alcohol (finding) [facility] Tobacco use and exposure 2016-11-22 00:00:00 2016-11-22 00:00:00 Smokeless tobacco non-user [facility] Sex assigned at 1985 00:00:00 1985 00:00:00 [facility] Smoking Status Start Date Stop Date Source Never smoked tobacco [facility] Medications Ordered Medication Name Filled Medication Name Start Date Stop Date Current Medication? Ordering Clinician Indication Dosage Frequency Signature (SIG) Comments Components Source cloNIDine (CATAPRES) tablet 0.1 mg 06-02 04:45: 00 06-02 05:17 :00 No .1mg 0.1 mg, Oral, ONCE, 1 dose, On Sat06/01/24 at 2245, STAT [facility] HYDROcodone -acetaminop hen (NORCO 5) tablet 1 tablet 06-02 04:45: 00 06-02 05:17 :00 No 1{tbl} 1 tablet, Oral, ONCE, 1 dose, On Sat06/01/24 at 2245, [facility] methylpredn isolone sod succ (SOLU-MEDRO L) injection 125 mg 06-02 04:40: 00 06-02 05:18 :00 No 125mg 125 mg, Intramuscu lar, ONCE NOW, 1 dose, On Sat06/01/24 at 2245, [facility] acetaminoph en-codeine 300-30 mg tablet 06-02 00:00: 00 06-10 05:59 :00 Yes [id number] 1{tbl} Take 1 tablet by mouth every 8 (eight) hours as needed for Pain (scale 4-6) for up to 7 days. Indication s: acute pain [facility] lisinopriL (PRINIVIL,Z ESTRIL) tablet 20 mg 12-07 14:00: 00 Yes 20mg 20 mg, Oral, DAILY, First dose on Viktoriya 12/07/21 at 0900, Until Discontinu ed, Routine [facility] HYDROcodone -acetaminop hen (NORCO) 10-325 mg tablet 1 tablet 12-06 17:15: 00 12-06 16:12 :00 No 1{tbl} 1 tablet, Oral, ONCE, 1 dose, On Sat12/06/21 at 1215, [facility] carvediloL (COREG) tablet 25 mg 12-06 17:15: 00 12-06 16:12 :00 No 25mg 25 mg, Oral, ONCE, 1 dose, On Sat12/06/21 at 1215, Routine [facility] methylpredn isolone sod succ (SOLU-MEDRO L) injection 125 mg 12-06 16:45: 00 12-06 16:09 :00 No 125mg 125 mg, Intramuscu lar, ONCE, 1 dose, On Sat12/06/21 at 1145, REGINA [facility] predniSONE 20 mg tablet 12-06 00:00: 00 Yes [id number] 1 PO BID x 4 days [facility] acetaminoph en-codeine 300-30 mg tablet 12-06 00:00: 00 Yes [id number] 1{tbl} Take 1 tablet by mouth every 4 (four) hours as needed for Pain (scale 4-6). Indication s: acute pain [facility] aspirin 81 mg chewable tablet 09-14 00:00: 00 Yes [id number] 81mg Take 1 tablet by mouth daily. [facility] atorvastati n 40 mg tablet 09-14 00:00: 00 Yes [id number] 40mg Take 1 tablet by mouth at bedtime. [facility] carvediloL 25 mg tablet 09-14 00:00: 00 Yes [id number] 37.5mg Take 1.5 tablets by mouth 2 (two) times daily with meals. [facility] furosemide 40 mg tablet 09-14 00:00: 00 Yes [id number] 40mg Take 1 tablet by mouth every morning and evening. [facility] lisinopriL 10 mg tablet 09-14 00:00: 00 Yes [id number] 30mg Take 3 tablets by mouth daily. [facility] spironolact one 25 mg tablet 09-14 00:00: 00 Yes [id number] 25mg Take 1 tablet by mouth daily. [facility] aspirin 81 mg chewable tablet -19 00:00: 00 09-14 00:00 :00 No [id number] 81mg Take 1 tablet by mouth daily for 180 days. [facility] lisinopriL 10 mg tablet 08-22 00:00: 00 09-14 00:00 :00 No [id number] 30mg Take 3 tablets by mouth daily for 180 days. [facility] spironolact one 25 mg tablet 08-22 00:00: 00 09-14 00:00 :00 No [id number] 25mg Take 1 tablet by mouth daily for 180 days. [facility] carvediloL (COREG) tablet 37.5 mg 08-21 22:00: 00 Yes 37.5mg 37.5 mg, Oral, BID MEALS, First dose (after last modificati on) on Sat08/21/21 at 1700, Until Discontinu ed, Routine [facility] lisinopriL (PRINIVIL,Z ESTRIL) tablet 30 mg 08-21 14:00: 00 Yes 30mg 30 mg, Oral, DAILY, First dose (after last modificati on) on Sat08/21/21 at 0900, Until Discontinu ed, Routine [facility] magnesium oxide (MAG-OX 400) tablet 400 mg 08-21 13:45: 00 08-21 13:20 :00 No 400mg 400 mg, Oral, ONCE, 1 dose, On Sat08/21/21 at 0845, Routine [facility] amLODIPine 10 mg tablet 08-21 11:33: 41 08-21 00:00 :00 No 10mg Take 10 mg by mouth daily. [facility] hydroCHLORO thiazide 25 mg tablet 08-21 11:33: 41 08-21 00:00 :00 No 25mg Take 25 mg by mouth daily. [facility] ibuprofen 800 mg tablet 08-21 11:33: 41 08-21 00:00 :00 No 800mg Take 800 mg by mouth 2 (two) times daily. [facility] hydrALAZINE (APRESOLINE ) tablet 10 mg 08-21 07:00: 00 08-21 06:05 :00 No 10mg 10 mg, Oral, ONCE, 1 dose, On Sat08/21/21 at 0200, Routine [facility] atorvastati n 40 mg tablet 08-21 00:00: 00 09-14 00:00 :00 No [id number] 40mg Take 1 tablet by mouth at bedtime for 180 days. [facility] furosemide 40 mg tablet 08-21 00:00: 00 09-14 00:00 :00 No [id number] 40mg Take 1 tablet by mouth every morning and evening for 180 days. [facility] carvediloL 25 mg tablet 08-21 00:00: 00 09-14 00:00 :00 No [id number] 37.5mg Take 1.5 tablets by mouth 2 (two) times daily with meals for 180 days. [facility] carvediloL 25 mg tablet 08-21 00:00: 00 08-21 00:00 :00 No [id number] 25mg Take 1 tablet by mouth 2 (two) times daily with meals for 180 days. [facility] furosemide (LASIX) tablet 40 mg 08-20 14:00: 00 Yes 40mg 40 mg, Oral, QAM+PM, First dose (after last modificati on) on Sat08/20/21 at 0900, Until Discontinu ed, Routine [facility] lisinopriL (PRINIVIL,Z ESTRIL) tablet 20 mg 08-20 14:00: 00 08-21 11:42 :47 No 20mg 20 mg, Oral, DAILY, First dose (after last modificati on) on Sat08/20/21 at 0900, Until Discontinu ed, Routine [facility] carvediloL (COREG) tablet 25 mg 08-20 13:00: 00 08-21 17:46 :56 No 25mg 25 mg, Oral, BID MEALS, First dose (after last modificati on) on 08/20/21 at 0800, Until Discontinu ed, Routine [facility] lisinopriL (PRINIVIL,Z ESTRIL) tablet 5 mg 08-19 15:00: 00 08-19 14:30 :00 No 5mg 5 mg, Oral, ONCE, 1 dose, On Sat08/19/21 at 1000, Routine [facility] carvediloL (COREG) tablet 12.5 mg 08-19 13:00: 00 08-19 22:39 :41 No 12.5mg 12.5 mg, Oral, BID MEALS, First dose (after last modificati on) on Sat08/19/21 at 0800, Until Discontinu ed, Routine [facility] furosemide (LASIX) injection 40 mg 08-19 01:00: 00 08-19 17:31 :11 No 40mg 40 mg, Slow IV Push, Q12H, First dose on Sat08/18/21 at 2000, Until Discontinu ed, Routine [facility] hydrALAZINE (APRESOLINE ) tablet 25 mg 08-18 21:47: 07 Yes 25mg 25 mg, Oral, Q6HPRN, Starting on Sat08/18/21 at 1647, Until Discontinu ed, Routine, SBP >180 [facility] lisinopriL (PRINIVIL,Z ESTRIL) tablet 10 mg 08-18 18:15: 00 08-18 18:14 :00 No 10mg 10 mg, Oral, DAILY, 1 dose, First dose on Sat08/18/21 at 1315, Routine [facility] lisinopriL (PRINIVIL,Z ESTRIL) tablet 10 mg 08-18 16:00: 00 08-19 13:47 :35 No 10mg 10 mg, Oral, DAILY, First dose on Sat08/18/21 at 1100, Until Discontinu ed, Routine [facility] spironolact one (ALDACTONE) tablet 25 mg 08-18 14:00: 00 Yes 25mg 25 mg, Oral, DAILY, First dose on Sat08/18/21 at 0900, Until Discontinu ed, Routine [facility] aspirin chewable tablet 81 mg 08-18 14:00: 00 Yes 81mg 81 mg, Oral, DAILY, First dose on Sat08/18/21 at 0900, Until Discontinu ed, Routine [facility] furosemide (LASIX) tablet 40 mg 08-18 14:00: 00 08-18 16:18 :32 No 40mg 40 mg, Oral, QAM+PM, First dose on Sat08/18/21 at 0900, Until Discontinu ed, Routine [facility] amLODIPine (NORVASC) tablet 10 mg 08-18 12:00: 00 08-18 11:05 :00 No 10mg 10 mg, Oral, ONCE, 1 dose, On Sat08/18/21 at 0700, Routine [facility] atorvastati n (LIPITOR) tablet 40 mg 08-18 02:00: 00 Yes 40mg 40 mg, Oral, QHS, First dose on Sat08/17/21 at 2100, Until Discontinu ed, Routine [facility] heparin (porcine) injection 5,000 Units 08-18 01:00: 00 Yes 5000U 5,000 Units, Subcutaneo us, Q12H, First dose on Sat08/17/21 at 2000, Until Discontinu ed, Routine [facility] hydrALAZINE (APRESOLINE ) tablet 10 mg 08-17 22:45: 00 08-17 23:51 :00 No 10mg 10 mg, Oral, ONCE, 1 dose, On Sat08/17/21 at 1745, Routine [facility] hydrALAZINE (APRESOLINE ) tablet 10 mg 08-17 21:45: 54 08-18 21:47 :24 No 10mg 10 mg, Oral, Q6HPRN, Starting on Sat08/17/21 at 1645, Until Sat08/18/21 at 1647, Routine, SBP >180 [facility] sulfur hexafluorid e microsphr (LUMASON) injection 5 mL 08-17 20:45: 00 08-17 20:45 :00 No [id number] 5mL 5 mL, Intravenou s, ONCE, 1 dose, On Sat08/17/21 at 1545, Routine
seafood service team member approving Restricted medication : DEZ QIU [facility] magnesium sulfate in water 4 gram/50 mL (8 %) IV Piggyback 4 g 08-17 18:15: 00 08-17 18:29 :00 No 4g 4 g, IV Piggyback, ONCE, 1 dose, On Viktoriya 08/17/21 at 1315, Routine [facility] KCL (KLOR-CON M20) tablet 40 mEq 08-17 18:15: 00 08-17 18:10 :00 No 40meq 40 mEq, Oral, ONCE, 1 dose, On Viktoriya 08/17/21 at 1315, Routine [facility] furosemide (LASIX) injection 40 mg 08-17 17:15: 00 08-18 12:42 :25 No 40mg 40 mg, Slow IV Push, Q12H, First dose on Viktoriya 08/17/21 at 1215, Until Discontinu ed, Routine [facility] acetaminoph en (TYLENOL) tablet 650 mg 08-17 14:09: 58 Yes 650mg 650 mg, Oral, Q6HPRN, Starting on Sat08/17/21 at 0909, Until Discontinu ed, Routine, Pain (scale 1-3) [facility] amLODIPine 10 mg tablet 08-17 09:16: 15 Yes 10mg Take 10 mg by mouth daily. [facility] hydroCHLORO thiazide 25 mg tablet 08-17 09:16: 15 Yes 25mg Take 25 mg by mouth daily. [facility] ibuprofen 800 mg tablet 08-17 09:16: 15 Yes 800mg Take 800 mg by mouth 2 (two) times daily. [facility] Vital Signs Vital Name Observation Time Observation Value Comments S qi Systolic blood pressure 2024-06-02 06:00:00 183 mm[Hg] [facility] Diastolic blood pressure 2024-06-02 06:00:00 132 mm[Hg] [facility] Heart rate 2024-06-02 05:18:00 82 /min [facility] Body temperature 2024-06-02 05:18:00 37 Anastasiia [facility] Respiratory rate 2024-06-02 05:18:00 20 /min [facility] Oxygen saturation in Arterial blood by Pulse oximetry 2024-06-02 05:18:00 100 /min [facility] Body height 2024-06-02 03:39:00 182.9 cm [facility] Body weight 2024-06-02 03:39:00 102.377 kg [facility] BMI 2024-06-02 03:39:00 30.61 kg/m2 [facility] Systolic blood pressure 2021-12-06 17:40:07 158 mm[Hg] [facility] Diastolic blood pressure 2021-12-06 17:40:07 105 mm[Hg] [facility] Heart rate 2021-12-06 15:43:00 91 /min [facility] Respiratory rate 2021-12-06 15:43:00 20 /min [facility] Oxygen saturation in Arterial blood by Pulse oximetry 2021-12-06 15:43:00 97 /min [facility] Body temperature 2021-12-06 14:49:00 36.61 Anastasiia [facility] Body height 2021-12-06 14:49:00 182.9 cm [facility] Body weight 2021-12-06 14:49:00 99.791 kg [facility] BMI 2021-12-06 14:49:00 29.84 kg/m2 [facility] Systolic blood pressure 2021-08-21 20:39:00 143 mm[Hg] [facility] Diastolic blood pressure 2021-08-21 20:39:00 104 mm[Hg] [facility] Heart rate 2021-08-21 20:39:00 79 /min [facility] Body temperature 2021-08-21 20:39:00 36 Anastasiia [facility] Respiratory rate 2021-08-21 20:39:00 18 /min [facility] Oxygen saturation in Arterial blood by Pulse oximetry 2021-08-21 20:39:00 99 /min G[facility] o [facility] Body weight 2021-08-21 10:57:00 104.055 kg [facility] BMI 2021-08-21 10:57:00 31.11 kg/m2 [facility] Body height 2021-08-18 10:31:00 182.9 cm [facility] Procedures Procedure Date / Time Performed Performing Clinician Source NOTICE OF PRIVACY PRACTICES 2021-12-06 14:38:21 Doctor Unassigned, [place] [facility] CONSENT/REFUSAL FOR DIAGNOSIS AND TREATMENT 2021-12-06 14:38:03 Doctor Unassigned, [place] [facility] AUTHORIZATION FOR RELEASE OF PHI 2021-09-01 05:01:00 Doctor Unassigned, [place] [facility] MAGNESIUM 2021-08-21 08:42:00 Eryn Cowart [facility] BASIC METABOLIC PANEL (NA, K, CL, CO2, GLUCOSE, BUN, CREATININE, CA) 2021-08-21 08:42:00 Supa [facility] N-TERMINAL PRO-BNP 2021-08-21 08:42:00 Gaston Elizabeth [facility] HB ECG ROUTINE & RHYTHM STRIP 2021-08-20 [facility]02[facility] 2021-08-20 09:22:00 Letty March [facility] BASIC METABOLIC PANEL (NA, K, CL, CO2, GLUCOSE, BUN, CREATININE, CA) 2021-08-20 09:22[facility] 2021-08-20 09:22:00 Letty March [facility] HB ECG ROUTINE & RHYTHM STRIP 2021-08-19 13:08:[facility] 2021-08-19 10:21:00 Gaston Elizabeth [facility] BASIC METABOLIC PANEL (NA, K, CL, CO2, GLUCOSE, BUN, CREATININE, CA) 2021-08-19 10:21:00 Gaston Elizabeth [facility] BASIC METABOLIC PANEL (NA, K, CL, CO2, GLUCOSE, BUN, CREATININE, CA) 2021-08-18 19:41:00 Supa [facility] HB ECG ROUTINE & RHYTHM STRIP 2021-08-18 14:50:24 Supa [facility] MAGNESIUM 2021-08-18 09:10[facility]OLIC PANEL (NA, K, CL, CO2, GLUCOSE, BUN, CREATININE, CA) 2021-08-18 09:10:00 Supa [facility] CBC WITH DIFF 2021-08-18 09:10:00 Supa [facility] TROPONIN I 2021-08-17 23:58:[address] [facility] TRANSTHORACIC ECHO (TTE) COMPLETE W/ CONTRAST 2021-08-17 18:53:00 Supa [facility] PHOSPHORUS 2021-08-17 15:43:00 [facility] 2021-08-17 15:43:[address] [facility] FERRITIN SERUM 2021-08-17 15:43:00 Eryn Cowart [facility] TROPONIN I 2021-08-17 15:43:[address] [facility] THYROID STIMULATING HORMONE 2021-08-17 15:43:00 Supa [facility] HEPATIC FUNCTION PANEL (29964) (ALB,T.PRO,BILI T,BU/BC,ALT,AST,ALK PHOS) 2021-08-17 15:43:00 Supa [facility] BASIC METABOLIC PANEL (NA, K, CL, CO2, GLUCOSE, BUN, CREATININE, CA) 2021-08-17 15:43:00 Supa [facility] IRON PANEL 2021-08-17 15:43:[address] [facility] CBC WITH DIFF 2021-08-17 15:43:00 Supa [facility] GLYCOSYLATED HEMOGLOBIN (A1C) 2021-08-17 15:43:00 Eryn Cowart [facility] N-TERMINAL PRO-BNP 2021-08-17 15:43:00 Eryn Cowart [facility] XR CHEST 1 VW 2021-08-17 15:10:00 Eryn Cowart [facility] EXTERNAL PROVIDER RECORDS 2016-11-23 05:01:00 Doctor Unassigned, [place] [facility] DAY SURGERY - ADC 2016-11-23 05:01:00 Doctor Ivonne ssigned, [place] [facility] Encounters Start Date/Time End Date/Time Encounter Type Admission Type Attending [facility] Facility Care Department Encounter ID Source 2016-11-23 00:00:00 2024-06-20 03:42:57 Orders Only Doctor Unassigned, [place] Doctor Unassigned, [place] [facility] [id number] 350.1.13.10 4.2.7.2.686 [id number] [facility] 2024-06-10 00:00:00 2024-06-10 11:09:01 Letter (Out) Campaigns, Generic Provider Campaigns, Generic Provider [facility] [id number] 350.1.13.10 4.2.7.2.686 [id number] [facility] 2024-06-01 21:44:00 2024-06-02 00:17:00 Emergency X MIGDALIA VILLEGAS SHINTA [facility] ERT [id number] [facility] 2024-06-01 21:44:00 2024-06-02 00:17:00 Emergency Migdalia Villegas [facility] [id number] 350.1.13.10 4.2.7.2.686 [id number] [facility] 2024-03-30 10:06:11 2024-03-30 10:06:11 Outpatient S[facility] [id number] Waddell 2022-08-17 00:00:00 2022-08-17 00:00:[facility]40.114 350.1.13.10 4.2.7.2.686 [id number] [facility] 2021-12-06 09:51:00 2021-12-06 13:09:00 Emergency X Tameka NOVOA [facility] ERT [id number] [facility] 2021-12-06 09:51:00 2021-12-06 13:09:00 Emergency Tameka Novoage [facility] [id number] 350.1.13.10 4.2.7.2.686 [id number] [facility] 2021-12-06 00:00:00 2021-12-06 00:00:00 Orders Only Doctor Unassigned, [place] [facility] 1.2840.114 350.1.13.10 4.2.7.2.686 [id number] [facility] 2021-09-14 00:00:00 2021-09-14 00:00:00 [facility] 1.2840.114 350.1.13.10 4.2.7.2.686 [id number] [facility] 2021-09-12 00:00:00 2021-09-12 00:00:[address] [facility] 1.2840.114 350.1.13.10 4.2.7.2.686 [id number] [facility] 2021-09-01 00:00:00 2021-09-01 00:00:00 [facility] 1.2840.114 350.1.13.10 4.2.7.2.686 [id number] [facility] 2021-09-01 00:00:00 2021-09-01 00:00:00 Orders Only Doctor Unassigned, [place] [facility] 1.0.114 350.1.13.10 4.2.7.2.686 [id number] [facility] 2021-08-30 00:00:00 2021-08-30 00:00:00 Telephone Basim Cota [facility] 1..114 350.1.13.10 4.2.7.2.686 [id number] [facility] 2021-08-22 00:00:00 2021-08-22 00:00:00 Transition of Care Neumann Sherrell [facility] 1..114 350.1.13.10 4.2.7.2.686 [id number] [facility] 2021-08-17 08:35:00 2021-08-21 17:42:00 Inpatient U DIMITRIOS [facility]EL [facility] [id number] [facility] 2021-08-17 08:35:00 2021-08-21 17:42:00 Hospital Encounter Basim Cota Khaled F [facility] 1..114 350.1.13.10 4.2.7.2.686 [id number] [facility] 2021-08-18 00:00:00 2021-08-18 00:00:00 Telephone Dimitrios Abel [facility] 1..114 350.1.13.10 4.2.7.2.686 [id number] [facility] Results Test Description Test Time Test Comments Results Result Co mments Source [facility] (NA, K, CL, CO2, GLUCOSE, BUN, CREATININE, CA)2021-08-21 10:07:34* Test Item Value Reference Range Interpretation Comme nts NA (test code = 0697932486) 135 mmol/L 135-145 K (test code = 3737006079) 4.4 mmol/L 3.5-5.0 CL (test code = 4649482083) 102 mmol/L 98-108 CO2 TOTAL (test code = 0649443866) 26 mmol/L 23-31 AGAP (test code = 4444464274) 2-16 BUN (test code = 7645449226) 27 mg/dL 7-23 H GLUCOSE (test code = 2855753274) 104 mg/dL 70-110 CREATININE (test code = 2711760984) 1.49 mg/dL 0.60-1.25 H CALCIUM (test code = 5635263231) 9.0 mg/dL 8.6-10.6 eGFR (test code = 5250573361) mL/min/1.73m2 EBEN (test code = EBEN) Association [...] imaging tests). Lab Interpretation (test code = 14955-7) Abnormal [facility]22-[facility]-18 10:07:34* Test Item Value Reference Range Interpretation Comme nts MAGNESIUM (test code = 7056029473) 1.9 mg/dL 1.7-2.4 Lab Interpretation (test cod e = 81762-8) Normal [facility] (NA, K, CL, CO2, GLUCOSE, BUN, CREATININE, CA)2021-08-20 10:22:59* Test Item Value Reference Range Interpretation Comme nts NA (test code = 8403125066) 137 mmol/L 135-145 K (test code = 3136472352) 4.4 mmol/L 3.5-5.0 CL (test code = 7900188490) 102 mmol/L 98-108 CO2 TOTAL (test code = 4918783930) 26 mmol/L 23-31 AGAP (test code = 8687230208) 2-16 BUN (test code = 0912780265) 31 mg/dL 7-23 H GLUCOSE (test code = 7929893412) 119 mg/dL 70-110 H CREATININE (test code = 0337443181) 1.56 mg/dL 0.60-1.25 H CALCIUM (test code = 7860269945) 9.1 mg/dL 8.6-10.6 eGFR (test code = 7352728509) mL/min/1.73m2 EBEN (test code = EBEN) Association [...] imaging tests). Lab Interpretation (test code = 38921-9) [facility]2022-[facility]-17 10:22:59* Test Item Value Reference Range Interpretation Comme nts MAGNESIUM (test code = 4830594327) 2.1 mg/dL 1.7-2.4 Lab Interpretation (test cod e = 10217-7) Normal [facility] WITH [id number] 09:42:15* Test Item Value Reference Range Interpretation Comme nts WBC (test code = 6690-2) See_Comment H [Automated [employer]] The system which generated this result transmitted reference range: 4.20 - 10.70 10*3/?L. The reference range was not used to interpret this result as normal/abnormal. RBC (test code = 789-8) See_Comment [Automated [employer]] The system which generated this result transmitted [...] 32.8 g/dL 31.2-35.0 RDW-SD (test code = 64011-5) 39.3 fL 38.5-51.6 RDW-CV (test code = 788-0) 12.5 % 12.1-15.4 PLT (test code = 777-3) See_Comment H [Automated messa ge] The system which generated this result transmitted reference range: 150 - 328 10*3/?L. The reference range was not used to interpret this result as normal/abnormal. MPV (test code = 99865-5) 9.3 fL 9.8-13.0 L NRBC/100 WBC (test code = 8816464614) See_Comment [Automated [employer]] The system which generated this result transmitted reference range: 0.0 - 10.0 /100 WBCs. The reference range was not used to interpret this result as normal/abnormal. NRBC x10^3 (test code = 6408644953) <0.01 See_Comment [Automated [employer]] The system which generated this result transmitted reference range: 10*3/?L. The reference range was not used to interpret this result as normal/abnormal. GRAN MAT (NEUT) % (test code = 770-8) 60.5 % IMM GRAN % (test code = 6104475408) 0.30 % LYMPH % (test code = 736-9) 26.7 % MONO % (test code = 5905-5) 8.3 % EOS % (test code = 713-8) 3.4 % BASO % (test code = 706-2) 0.8 % GRAN MAT x10^3(ANC) (test code = 1638351930) 7.17 10*3/uL 1.99-6.95 H IMM GRAN x10^3 (test code = 9285356207) 0.03 10*3/uL 0.00-0.06 LYMPH x10^3 (test code = 731-0) 3.16 10*3/uL 1.09-3.23 MONO x10^3 (test code = 742-7) 0.98 10*3/uL 0.36-1.02 EOS x10^3 (test code = 711-2) 0.40 10*3/uL 0.06-0.53 BASO x10^3 (test code = 704-7) 0.10 10*3/uL 0.01-0.09 H Lab Interpretation (test code = 69130-0) [facility] (NA, K, CL, CO2, GLUCOSE, BUN, CREATININE, CA)2021-08-19 10:52:12* Test Item Value Reference Range Interpretation Comme nts NA (test code = 6321309855) 136 mmol/L 135-145 K (test code = 3007703895) 3.8 mmol/L 3.5-5.0 CL (test code = 5270150942) 100 mmol/L 98-108 CO2 TOTAL (test code = 1044888066) 29 mmol/L 23-31 AGAP (test code = 3349631616) 2-16 BUN (test code = 2254184971) 32 mg/dL 7-23 H GLUCOSE (test code = 3022149338) 115 mg/dL 70-110 H CREATININE (test code = 5625482598) 1.67 mg/dL 0.60-1.25 H CALCIUM (test code = 3134500745) 9.1 mg/dL 8.6-10.6 eGFR (test code = 0677469220) mL/min/1.73m2 EBEN (test code = EBEN) Association [...] imaging tests). Lab Interpretation (test code = 13684-0) [facility]normal [facility]2022-04-16 10:52:12* Test Item Value Reference Range Interpretation Comme nts MAGNESIUM (test code = 2225540013) 1.9 mg/dL 1.7-2.4 Lab Interpretation (test cod e = 12186-7) Normal [facility] (NA, K, CL, CO2, GLUCOSE, BUN, CREATININE, CA)2021-08-18 21:19:06* Test Item Value Reference Range Interpretation Comme nts NA (test code = 3438980042) 135 mmol/L 135-145 K (test code = 6112184944) 3.9 mmol/L 3.5-5.0 CL (test code = 3907591921) 98 mmol/L 98-108 CO2 TOTAL (test code = 9742721551) 30 mmol/L 23-31 AGAP (test code = 9244716348) 2-16 BUN (test code = 8965558346) 29 mg/dL 7-23 H GLUCOSE (test code = 7773863256) 121 mg/dL 70-110 H CREATININE (test code = 6369947997) 1.58 mg/dL 0.60-1.25 H CALCIUM (test code = 4399257190) 8.9 mg/dL 8.6-10.6 eGFR (test code = 2961291347) mL/min/1.73m2 EBEN (test code = EBEN) Association [...] imaging tests). Lab Interpretation (test code = 87593-3) Abnormal [facility] METABOLIC PANEL (NA, K, CL, CO2, GLUCOSE, BUN, CREATININE, CA)2021-08-18 10:04:44* Test Item Value Reference Range Interpretation Comme nts NA (test code = 4777239542) 135 mmol/L 135-145 K (test code = 4843114340) 4.0 mmol/L 3.5-5.0 Slight hemolysis CL (test code = 9865383367) 101 mmol/L 98-108 CO2 TOTAL (test code = 6699072923) 29 mmol/L 23-31 AGAP (test code = 6627743822) 2-16 BUN (test code = 6387942806) 32 mg/dL 7-23 H Slight hemolysis GLUCOSE (test code = 8303080300) 114 mg/dL 70-110 H CREATININE (test code = 6277153879) 1.54 mg/dL 0.60-1.25 H CALCIUM (test code = 8948979911) 8.8 mg/dL 8.6-10.6 eGFR (test code = 0149412070) mL/min/1.73m2 EBEN (test code = EBEN) Association [...] imaging tests). Lab Interpretation (test code = 40724-4) [facility]normal [facility]2022-04-15 10:04:44* Test Item Value Reference Range Interpretation Comme nts MAGNESIUM (test code = 0652148929) 2.2 mg/dL 1.7-2.4 Lab Interpretation (test cod e = 43527-0) Normal [facility] WITH [id number] 09:24:38* Test Item Value Reference Range Interpretation Comme nts WBC (test code = 6690-2) See_Comment [Automated [employer]] The system which generated this result transmitted reference range: 4.20 - 10.70 10*3/?L. The reference range was not used to interpret this result as normal/abnormal. RBC (test code = 789-8) See_Comment [Automated [employer]] The system which generated this result transmitted [...] 33.3 g/dL 31.2-35.0 RDW-SD (test code = 13046-0) 39.1 fL 38.5-51.6 RDW-CV (test code = 788-0) 12.6 % 12.1-15.4 PLT (test code = 777-3) See_Comment H [Automated messa ge] The system which generated this result transmitted reference range: 150 - 328 10*3/?L. The reference range was not used to interpret this result as normal/abnormal. MPV (test code = 88308-7) 9.5 fL 9.8-13.0 L NRBC/100 WBC (test code = 5699571219) See_Comment [Automated [employer]] The system which generated this result transmitted reference range: 0.0 - 10.0 /100 WBCs. The reference range was not used to interpret this result as normal/abnormal. NRBC x10^3 (test code = 3190245026) <0.01 See_Comment [Automated messa ge] The system which generated this result transmitted reference range: 10*3/?L. The reference range was not used to interpret this result as normal/abnormal. GRAN MAT (NEUT) % (test code = 770-8) 65.3 % IMM GRAN % (test code = 8385969068) 0.20 % LYMPH % (test code = 736-9) 23.3 % MONO % (test code = 5905-5) 7.0 % EOS % (test code = 713-8) 3.5 % BASO % (test code = 706-2) 0.7 % GRAN MAT x10^3(ANC) (test code = 5356807557) 6.63 10*3/uL 1.99-6.95 IMM GRAN x10^3 (test code = 8097634932) <0.03 0.00-0.06 LYMPH x10^3 (test code = 731-0) 2.36 10*3/uL 1.09-3.23 MONO x10^3 (test code = 742-7) 0.71 10*3/uL 0.36-1.02 EOS x10^3 (test code = 711-2) 0.35 10*3/uL 0.06-0.53 BASO x10^3 (test code = 704-7) 0.07 10*3/uL 0.01-0.09 Lab Interpretation (test code = 93410-8) Abnormal [facility] CenterGLYCOSYLATED HEMOGLOBIN (A1C)2021-08-18 02:37:07* Test Item Value Reference Range Interpretation Comme nts HGB A1C (test code = 4548-4) 5.8 % 4.0-5.7 H EBEN (test code = EBEN) Reference RangesNormal: <5.7%Prediabetes: 5.7 - 6.4%Diabetes: > 6.5% Lab Interpretation (test code = 10511-4) Abnormal [facility] CenterTROPONIN [id number] 01:03:37* Test Item Value Reference Range Interpretation Comments TROPONIN I (test code = 0737594705) 0.101 ng/mL See_Comment H [Automated message] The [...] of biotin. Lab Interpretation (test code = 76006-6) Abnormal [facility] CenterTransthoracic echo (TTE)2021-08-17 22:14:20* Test Item Value Reference Range Interpretation Comme nts Ao root annulus (test code = 6339715499) 3.3 cm Ao root diam (test code = 3680627359) 3.30 cm Aortic root (test code = 6993551659) 3.3 cm LA size (test code = 3412143879) 3.7 cm LVOT diameter (test code = 6425023560) 2.00 cm LVIDD (test code = 1531778402) 5.90 cm IVS (test code = 7311316597) 1.26 cm Interventricular Septum Diastolic Thickness by 2D (test code = 3405406) 1.26 cm LVPWD (test code = 6024824144) 1.19 cm PW (test code = 0221940367) 1.19 cm 0.6-1.1 EF(Teich) (test code = 3892361066) 46.60 % LVIDS (test code = 9245750381) 4.50 cm FS (test code = 2889044289) 24 % EF - 2D (test code = 58736693) 46.60 % LAV(MOD-sp4) (test code = 7009055773) 65.30 mL MV Peak E Narciso (test code = 5972064973) 126.4 cm/s E wave decelartion time (test code = 4791054538) 0.14 s MV Prop V (test code = 0310897760) 35.00 cm/s LVOT stroke volume (test code = 1079860842) 45.10 cm3 LVOT peak narciso (test code = 4996803646) 90.0 cm/s LVOT mn grad (test code = 3869614261) mmHg AV LVOT peak gradient (test code = 0234578280) mmHg LVOT peak VTI (test code = 8023590202) 14.4 cm LV V1 mean (test code = 7724841643) 63.00 cm/s Aortic valve mean velocity (test code = 6116309785) 76.8 cm/s Ao peak narciso (test code = 1433203872) 125.5 cm/s Ao VTI (test code = 3451778132) 17.0 cm AV area by cont VTI (test code = 7312177321) 2.6 cm2 AV area peak narciso (test code = 5699458269) 2.2 cm2 Ao max PG (test code = 0884011689) 6.30 mm[Hg] AV peak gradient (test code = 2141142829) mmHg AV valve area (test code = 5069071075) 2.60 cm2 AV mean gradient (test code = 8478056181) mmHg TR Peak Narciso (test code = 0793585132) 119.4 cm/s Triscuspid Valve Regurgitation Peak Gradient (test code = 3309991570) mmHg Tapse (test code = 2298715101) 1.95 cm LA volume (BP) (test code = 6412605353) 73.5 mL LAV(MOD-sp2) (test code = 4141206280) 74.00 mL LA Volume Index (BP) (test code = 1607552513) 32.5 mL/m2 LV Diastolic Volume (BP) (test code = 4620419514) 232.2 mL EF(MOD-bp) (test code = 3761442351) 33.10 % LV Systolic Volume (BP) (test code = 8818629122) 155.2 mL SV(MOD-bp) (test code = 4572422807) 76.90 mL EF (test code = 9299940470) 33 % Left Ventricular Stroke Volume by 2-D Biplane-MOD (test code = 3541713) 76.9 mL Radiology Study observation (narrative) (test code = 00455-6) EBEN (test code = EBEN) ?Left?Ventricle: Left [...] meters 183/126 82 [facility] CenterHEPATIC FUNCTION PANEL (25535) (ALB,T.PRO,BILI T,BU/BC,ALT,AST,ALK PHOS)2021-08-17 17:59:20* Test Item Value Reference Range Interpretation Comme nts TOTAL BILI (test code = 0907095829) 0.4 mg/dL 0.1-1.1 BILI UNCON (test code = 3627637236) 0.4 mg/dL 0.1-1.1 BILI CONJ (test code = 2862526195) 0.0 mg/dL 0.0-0.3 T PROTEIN (test code = 4795183692) 6.4 g/dL 6.3-8.2 ALBUMIN (test code = 8059637758) 3.7 g/dL 3.5-5.0 ALK PHOS (test code = 8008224856) 64 U/L 34-122 ALTv (test code = 1742-6) 39 U/L 5-50 AST(SGOT) (test code = 0861829041) 30 U/L 13-40 Lab Interpretation (test cod e = 71075-7) Normal [facility] CenterFERRITIN [id number] 17:21:19* Test Item Value Reference Range Interpretation Comme nts FERRITIN (test code = 7323584659) 29.7 ng/mL 18.0-464.0 EBEN (test code = EBEN) Biotin has been reported to cause a negative bias, interpret results relative to patient's use of biotin. Lab Interpretation (test code = 90685-5) Normal [facility] CenterTHYROID STIMULATING [id number] 17:14:24 * Test Item Value Reference Range Interpretation Comme nts TSH (test code = 4933374028) See_Comment [Automated messa ge] The system which generated this result transmitted reference range: 0.45 - 4.70 mIU/L. The reference range was not used to interpret this result as normal/abnormal. Lab Interpretation (test code = 75654-8) Normal [facility] CenterN-TERMINAL [id number] 16:55:55* Test Item Value Reference Range Interpretation Comme nts NT-proBNP (test code = 9228680997) 5070 pg/mL See_Comment H [Automated message] The system which generated this result transmitted reference range: <=125. The reference range was not used to interpret this result as normal/abnormal. EBEN (test code = EBEN) Biotin has been reported to cause a negative bias, interpret results relative to patient's use of biotin. Lab Interpretation (test code = 81798-4) Abnormal [facility] CenterTROPONIN [id number] 16:55:55* Test Item Value Reference Range Interpretation Comments TROPONIN I (test code = 6096617942) 0.117 ng/mL See_Comment H [Automated message] The [...] of biotin. Lab Interpretation (test code = 90089-0) Abnormal [facility] CenterIRON [id number] 16:52:53* Test Item Value Reference Range Interpretation Comme nts IRON (test code = 6955763324) 51 ug/dL 50-160 TIBC (test code = 2648391491) 298 ug/dL 250-410 % FE SAT (test code = 9587495635) 17 % 20-50 L Lab Interpretation (test cod e = 57085-6) Abnormal [facility] CenterMAGNESIUM2022-04-14 16:41:35* Test Item Value Reference Range Interpretation Comme nts MAGNESIUM (test code = 9502169545) 1.6 mg/dL 1.7-2.4 L Lab Interpretation (test cod e = 49703-6) Abnormal [facility] CenterPHOSPHORUS2022-04-14 16:41:35* Test Item Value Reference Range Interpretation Comme nts PHOSPHORUS (test code = 3328865022) 4.0 mg/dL 2.5-5.0 Lab Interpretation (test cod e = 93304-7) Normal [facility] CenterBAS[facility] METABOLIC PANEL (NA, K, CL, CO2, GLUCOSE, BUN, CREATININE, CA)2021-08-17 16:41:35* Test Item Value Reference Range Interpretation Comme nts NA (test code = 7723124185) 134 mmol/L 135-145 L K (test code = 5392467007) 3.6 mmol/L 3.5-5.0 CL (test code = 2277935029) 99 mmol/L 98-108 CO2 TOTAL (test code = 7591614315) 32 mmol/L 23-31 H AGAP (test code = 9974579328) 2-16 BUN (test code = 6576174033) 24 mg/dL 7-23 H GLUCOSE (test code = 2144643406) 111 mg/dL 70-110 H CREATININE (test code = 0229613846) 1.60 mg/dL 0.60-1.25 H CALCIUM (test code = 0646779023) 8.8 mg/dL 8.6-10.6 eGFR (test code = 2485182581) mL/min/1.73m2 EBEN (test code = EBEN) Association [...] imaging tests). Lab Interpretation (test code = 30258-6) Abnormal [facility] WITH [id number] 16:00:05* Test Item Value Reference Range Interpretation [...] 33.7 g/dL 31.2-35.0 RDW-SD (test code = 35303-4) 39.5 fL 38.5-51.6 RDW-CV (test code = 788-0) 12.6 % 12.1-15.4 PLT (test code = 777-3) See_Comment H [Automated messa ge] The system which generated this result transmitted reference range: 150 - 328 10*3/?L. The reference range was not used to interpret this result as normal/abnormal. MPV (test code = 76442-6) 9.4 fL 9.8-13.0 L NRBC/100 WBC (test code = 5934435862) See_Comment [Automated [employer]] The system which generated this result transmitted reference range: 0.0 - 10.0 /100 WBCs. The reference range was not used to interpret this result as normal/abnormal. NRBC x10^3 (test code = 9090050636) <0.01 See_Comment [Automated messa ge] The system which generated this result transmitted reference range: 10*3/?L. The reference range was not used to interpret this result as normal/abnormal. GRAN MAT (NEUT) % (test code = 770-8) 65.6 % IMM GRAN % (test code = 8804594101) 0.20 % LYMPH % (test code = 736-9) 23.8 % MONO % (test code = 5905-5) 6.7 % EOS % (test code = 713-8) 3.2 % BASO % (test code = 706-2) 0.5 % GRAN MAT x10^3(ANC) (test code = 3743899728) 6.58 10*3/uL 1.99-6.95 IMM GRAN x10^3 (test code = 3158575090) <0.03 0.00-0.06 LYMPH x10^3 (test code = 731-0) 2.39 10*3/uL 1.09-3.23 MONO x10^3 (test code = 742-7) 0.67 10*3/uL 0.36-1.02 EOS x10^3 (test code = 711-2) 0.32 10*3/uL 0.06-0.53 BASO x10^3 (test code = 704-7) 0.05 10*3/uL 0.01-0.09 Lab Interpretation (test code = 54953-4) Abnormal [facility] Notes Date/Time Note Provider Source 2024-06-02 00:15:00 [...] steady gait, in no apparent distress, A [facility] 2024-06-01 21:38:46 Patient arrived ambulatory to ED c/o right foot gout pain that started last night. Patient states being d/c from [place] with prescriptions about 30 minutes ago. States normally gets a shot but they didn't give him one this time. Hx of HTN takes BP medications for it. A Ding RN [facility]"
[2024-07-17] MEDS ORDERED: KETOROLAC 30 MG/ML INJ ONE (10:07)
[2024-07-17] MEDS ORDERED: dexAMETHasone 10 MG/ML VIAL ONE (10:07)
[2024-07-17] MEDS ORDERED: cloNIDine HCL 0.1 MG TAB ONE (10:08)
[2024-07-17] MEDS ORDERED: MORPHINE 4 MG/ML SYR ONE ×2 (10:08→11:29)
--- NOTE | 2024-07-17 11:53 | ER ---
Nurse's Notes [facility] Name: Ezequiel Padron Age: 39 yrs Sex: Male : 1985 Arrival Date: 07/17/2024 Time: 09:29 Bed 18 Private MD: Diagnosis: Gout, unspecified Presentation: 07/17 09:45 Chief complaint: Severe right knee pain since last night, feels like previous gout hb episodes. Coronavirus screen: At this time, the client does not indicate any symptoms associated with coronavirus-19. Ebola Screen: No symptoms or risks identified at this time. Initial Sepsis Screen: Does the patient meet any 2 criteria? No. Patient's initial sepsis screen is negative. Does the patient have a suspected source of infection? No. Patient's initial sepsis screen is negative. Risk Assessment: Do you want to hurt yourself or someone else? Patient reports no desire to harm self or others. Onset of symptoms was July 17, 2024. 09:45 Method Of Arrival: Ambulatory hb 09:45 Acuity: HERMELINDA 3 hb Historical: - Allergies: 09:53 Nitroglycerin; hb - Home Meds: 09:53 lisinopril 10 mg Oral tablet [Active]; atorvastatin oral [Active]; Lasix Oral [Active]; hb metoprolol tartrate 100 mg Oral tablet 2 times per day [Active]; - PMHx: 09:53 Congestive heart failure; Gout; Hypertensive disorder; hb - PSHx: 09:53 R femur; hb - Immunization history:: Adult Immunizations up to date. - Infectious Disease History:: Denies. - Family history:: not pertinent. - Social history:: Smoking status: Patient denies any tobacco usage or history of. - Hospitalizations: : No recent hospitalization is reported. Screenin:20 [facility] ED Fall Risk Assessment (Adult) History of falling in the last 3 months, me1 including since admission No falls in past 3 months (0 pts) Confusion or Disorientation No (0 pts) Intoxicated or Sedated No (0 pts) Impaired Gait Yes (1 pt) Mobility Assist Device Used Yes (1 pt) Altered Elimination No (0 pt) Score/Fall Risk Level 0 - 2 = Low Risk Maintained a safe environment, Provided non-skid footwear, Hourly rounding (assess needs \T\ fall precautionary measures) done. Abuse screen: Denies threats or abuse. Nutritional screening: No deficits noted. Tuberculosis screening: No symptoms or risk factors identified. Assessment: 10:20 General: Appears uncomfortable, well groomed, well developed, well nourished, Behavior me1 is calm, cooperative, appropriate for age, Reports Severe right knee pain since last night, feels like previous gout episodes. Pain: Complains of pain in right knee Pain does not radiate. Pain currently is 10 out of 10 on a pain scale. Quality of pain is described as sharp, gnawing, Pain began 1 day ago. Is continuous. Neuro: Level of Consciousness is awake, alert, obeys commands, Oriented to person, place, time, situation, Appropriate for age. Cardiovascular: Patient's skin is warm and dry. Respiratory: Airway is patent Respiratory effort is even, unlabored, Respiratory pattern is regular, symmetrical. GI: No signs and/or symptoms were reported involving the gastrointestinal system. : No signs and/or symptoms were reported regarding the genitourinary system. EENT: No signs and/or symptoms were reported regarding the EENT system. Derm: Skin is intact, is healthy with good turgor, Skin is pink, warm \T\ dry. Musculoskeletal: Reports pain in right knee. Vital Signs: 09:45 BP 171 / 121; Pulse 88; Resp 16; Temp 98.2(O); Pulse Ox 96% on R/A; Weight 104.33 kg; hb Height 6 ft. 2 in. ; Pain 10/10; 10:00 BP 152 / 101; Pulse 80; Resp 18; Pulse Ox 98% ; me1 11:00 BP 158 / 115; Pulse 75; Resp 16; Pulse Ox 96% ; me1 11:32 Pain 8/10; me1 11:39 Pain 4/10; me1 11:58 BP 156 / 114; Pulse 76; Resp 16; Pulse Ox 97% ; me1 12:23 BP 146 / 111; Pulse 75; Resp 17; Pulse Ox 96% ; me1 09:45 Body Mass Index 29.53 (104.33 kg, 187.96 cm) hb 09:45 Pain Scale: Adult hb 11:32 Pain Scale: Adult me1 11:39 Pain Scale: Adult co1 ED Course: 09:35 Patient arrived in ED. al6 09:36 Kirby Cortes MD is Attending Physician. rn 09:55 Triage completed. hb 09:55 Arm band placed on. hb 10:04 Amaya Siddiqui, SAMANTHA is Primary Nurse. me1 10:18 Inserted saline lock: 20 gauge in right antecubital area, using aseptic technique. me1 10:20 Patient has correct armband on for positive identification. Bed in low position. Call me1 light in reach. Side rails up X 1. Provided Education on: POC. Verbalized understanding.. Client placed on continuous cardiac and pulse oximetry monitoring. NIBP monitoring applied. Pulse ox on. NIBP on. 10:20 No provider procedures requiring assistance completed. me1 12:23 IV discontinued, intact, bleeding controlled, No redness/swelling at site. Pressure me1 dressing applied. Administered Medications: 10:18 Drug: Decadron - Dexamethasone IVP 10 mg IVP once Route: IVP; Site: right antecubital; me1 11:32 Follow up: Response: No adverse reaction me1 10:19 Drug: morphine IVP or IV 4 mg IVP once over 4 mins Route: IVP; Infused Over: 4 mins; me1 Site: right antecubital; 11:32 Follow up: Response: No adverse reaction; Pain is decreased me1 10:19 Drug: Ketorolac IVP 15 mg IVP once Route: IVP; Site: right antecubital; me1 11:32 Follow up: Pain 8/10 Adult; Response: No adverse reaction; Pain is decreased me1 10:19 Drug: cloNIDine PO 0.2 mg PO once Route: PO; me1 11:32 Follow up: Response: No adverse reaction me1 11:31 Drug: morphine IVP or IV 4 mg IVP once over 4 mins Route: IVP; Infused Over: 4 mins; me1 Site: right antecubital; 11:39 Follow up: Pain 4/10 Adult; Response: No adverse reaction; Pain is decreased me1 Medication: 10:20 VIS not applicable for this client. me1 Outcome: 11:52 Discharge ordered by . rn 12:23 Discharged to home ambulatory, me1 12:23 Condition: stable 12:23 Discharge instructions given to patient, Instructed on discharge instructions, follow up and referral plans. medication usage, Demonstrated understanding of instructions, follow-up care, medications, Prescriptions given X 2, 12:25 Patient left the ED. me1 Signatures: Kirby Cortes MD MD rn Sherrie Medina RN RN Amaya Siddiqui RN RN me1 Vane Sanford6 Corrections: (The following items were deleted from the chart) 10:20 09:45 Chief complaint: Severe right knee pain since last night, feels like previous me1 gout episodes. 12:25 12:23 Discharge instructions given to patient, Instructed on discharge instructions, me1 follow up and referral plans. medication usage, Demonstrated understanding of instructions, follow-up care, medications, Prescriptions given X 1, me1
--- NOTE | 2024-07-17 11:53 | EDPHYS ---
Physician Documentation [facility] Name: Ezequiel Padron Age: 39 yrs Sex: Male : 1985 Arrival Date: 07/17/2024 Time: 09:29 Bed 18 Private MD: ED Physician Kirby Cortes HPI: 07/17 09:47 This 39 yrs old Black Male presents to ER via Unassigned with complaints of Knee Pain. rn 09:47 The patient presents with pain. The complaints affect the right knee. Onset: The rn symptoms/episode began/occurred yesterday. Modifying factors: The symptoms are alleviated by nothing. the symptoms are aggravated by weight bearing, bending knee. Severity of symptoms: At their worst the symptoms were moderate, in the emergency department the symptoms are unchanged. The patient has experienced similar episodes in the past. Patient reports right knee pain since yesterday while at work. Patient has history of gout. Denies any trauma. Feels identical to previous gout attacks. Has been taking his colchicine but still drinking alcohol and had pork chops for lunch yesterday.. Historical: - Allergies: 09:53 Nitroglycerin; hb - Home Meds: 09:53 lisinopril 10 mg Oral tablet [Active]; atorvastatin oral [Active]; Lasix Oral [Active]; hb metoprolol tartrate 100 mg Oral tablet 2 times per day [Active]; - PMHx: 09:53 Congestive heart failure; Gout; Hypertensive disorder; hb - PSHx: 09:53 R femur; hb - Immunization history:: Adult Immunizations up to date. - Infectious Disease History:: Denies. - Family history:: not pertinent. - Social history:: Smoking status: Patient denies any tobacco usage or history of. - Hospitalizations: : No recent hospitalization is reported. ROS: 09:47 Constitutional: Negative for fever, chills, and weight loss, MS/Extremity: Positive for rn right knee pain Exam: 09:47 Constitutional: This is a well developed, well nourished patient who is awake, alert, rn and in no acute distress. MS/ Extremity: Pulses equal, no cyanosis. Neurovascular intact. Painful range of motion right knee. No overlying skin changes. No significant effusion or swelling Vital Signs: 09:45 BP 171 / 121; Pulse 88; Resp 16; Temp 98.2(O); Pulse Ox 96% on R/A; Weight 104.33 kg; hb Height 6 ft. 2 in. ; Pain 10/10; 10:00 BP 152 / 101; Pulse 80; Resp 18; Pulse Ox 98% ; me1 11:00 BP 158 / 115; Pulse 75; Resp 16; Pulse Ox 96% ; me1 11:32 Pain 8/10; me1 11:39 Pain 4/10; me1 11:58 BP 156 / 114; Pulse 76; Resp 16; Pulse Ox 97% ; me1 12:23 BP 146 / 111; Pulse 75; Resp 17; Pulse Ox 96% ; me1 09:45 Body Mass Index 29.53 (104.33 kg, 187.96 cm) hb 09:45 Pain Scale: Adult hb 11:32 Pain Scale: Adult me1 11:39 Pain Scale: Adult me1 MDM: 09:36 Medical Screening Exam initiated rn 11:51 Differential diagnosis: Gout. Data reviewed: vital signs, nurses notes, old medical rn records, and as a result, I will discharge patient. Counseling: I had a detailed discussion with the patient and/or guardian regarding the historical points, exam findings, and any diagnostic results supporting the discharge/admit diagnosis, the need for outpatient follow up, to return to the emergency department if symptoms worsen or persist or if there are any questions or concerns that arise at home. Response to treatment: the patient's symptoms have markedly improved after treatment, and as a result, I will discharge patient. Special discussion: I discussed with the patient/guardian in detail that at this point there is no indication for admission to the hospital. It is understood, however, that if the symptoms persist or worsen the patient needs to return immediately for re-evaluation. Based on the history and exam findings, there is no indication for further emergent testing or inpatient evaluation. I discussed with the patient/guardian the need to see the silver recovery operator for further evaluation of the symptoms. ED course: Patient improved. Will discharge home with return precautions. Patient states compliant with his colchicine and has cut out alcohol is much as he can. Still eating red meat. Will discharge home with return precautions.. 07/17 09:47 Order name: IV Start; Complete Time: 10:18 rn Administered Medications: 10:18 Drug: Decadron - Dexamethasone IVP 10 mg IVP once Route: IVP; Site: right antecubital; me1 11:32 Follow up: Response: No adverse reaction me1 10:19 Drug: morphine IVP or IV 4 mg IVP once over 4 mins Route: IVP; Infused Over: 4 mins; me1 Site: right antecubital; 11:32 Follow up: Response: No adverse reaction; Pain is decreased me1 10:19 Drug: Ketorolac IVP 15 mg IVP once Route: IVP; Site: right antecubital; me1 11:32 Follow up: Pain 8/10 Adult; Response: No adverse reaction; Pain is decreased me1 10:19 Drug: cloNIDine PO 0.2 mg PO once Route: PO; me1 11:32 Follow up: Response: No adverse reaction me1 11:31 Drug: morphine IVP or IV 4 mg IVP once over 4 mins Route: IVP; Infused Over: 4 mins; me1 Site: right antecubital; 11:39 Follow up: Pain 4/10 Adult; Response: No adverse reaction; Pain is decreased me1 Disposition Summary: 07/17/24 11:52 Discharge Ordered Notes: Location: Home rn Problem: an acute exacerbation rn Symptoms: have improved rn Condition: Stable rn Diagnosis - Gout, unspecified rn Followup: rn - With: Private Physician - When: As needed - Reason: Recheck today's complaints, Re-evaluation by your physician Discharge Instructions: - Discharge Summary Sheet rn - Gout rn - Low-Purine Eating Plan rn Forms: - Medication Reconciliation Form rn - Antibiotic discharge rn - Prescription Opioid Use rn - Patient Portal Instructions rn - Leadership Thank You Letter rn Prescriptions: - Tramadol 50 mg Oral Tablet - take 1 tablet ORAL route every 8 hours as needed; 12 tablet; Refills: 0, rn Product Selection Permitted - Medrol ([place]) 4 mg Oral Tablets, Dose Pack - take 1 tablet ORAL route as directed - follow package instructions; 1 packet; rn Refills: 0, Product Selection Permitted Signatures: Kirby Cortes MD MD rn Baxter, Heather, RN RN hb Eddleman, Michelle, RN RN me1
[2024-07-17 12:30] VITALS: TEMP 98.2
[2024-07-17 12:36] VITALS: BP 146/111; O2SAT 96
== END 2024-07-17 12:25 | disposition home or self-care (01) ==
LOC: ER 09:29
DX: M10.9 Gout, unspecified (principal)
CPT/HCPCS: 96375; 96374; 99284; J1100

== ENCOUNTER 2024-08-02 21:16 | Emergency (ER) | payer OTHER ==
--- OUTSIDE RECORDS SUMMARY | 2024-08-02 21:22 | XMS REPORT | Continuity of Care Document ---
Author Name Unknown Address [address] [facility] [address] [place] [address] Organization [facility] Address [address] [facility] [address] [place] [address] Care Team Providers Care Tube Depatcher Name Role Phone Pcp, Patient Does Not Have A Primary Care Physic pat Doctor Unassigned, [place] Attending Clinician U jose e Figueroa, Generic Provider Attending Clinician Unavailable MIGDALIA VILLEGAS Attending Clinician Unavailable MGIDALIA VILLEGAS Attending Clinician Unavailable Migdalia Driver Attending Clinician [phone] Basim Cota MD Attending Clinician + Tameka NOVOA Attending Clinician Unavailable Tameka Garcia Attending Clinician [phone] Doctor Unassigned, [place] Attending Clinician U Sherrell Erazo RN Attending Clinician Unavailable DIMITRIOS ABEL Attending Clinician UnavailDimitrios Kearney MD Attending Clinician [phone] DIMITRIOS ABEL Admitting Clinician Dimitrios Kasper MD Admitting Clinician [phone] Payers Payer Name Policy Type Policy Number Effective Date Expirati on Date Source Problems Condition Name Condition Details Condition Category Status Onset Date Resolution Date Last Treatment Date Treating Clinician Comments Source SOB (shortness of breath) SOB (shortness of breath) Disease Active 4-14 00:00: 00 [facility] Obesity (BMI 30-39.9) Obesity (BMI 30-39.9) Disease Active 7-21 00:00: 00 [facility] Allergies, Adverse Reactions, Alerts Allergy Name Allergy Type Status Severity Reaction(s) Onset Date Inactive Date Treating Clinician Comments Source MORPHINE DRUG INGREDI Active Unknown-Cmnt 12-06 00:00: 00 [facility] Morphine Propensi ty to adverse reaction s Active Unknown - See comments 12-06 00:00: 00 Patient does not know reaction [facility] NO KNOWN ALLERGIE S Drug Class Active [facility] Social History Social Habit Start Date Stop Date Quantity Comments Source History SDOH Alcohol Std Drinks [facility] History SDOH Alcohol Binge [facility] SDOH Alcohol Frequency [facility] History of Social function 2024-06-01 00:00:00 2024-06-01 00:00:00 [facility] Exposure to SARS-CoV-2 (event) 2021-11-26 00:00:00 2021-12-06 12:55:00 Not sure [facility] Alcohol intake 2021-12-06 00:00:00 2021-12-06 00:00:00 Current drinker of alcohol (finding) [facility] Alcohol Comment 2016-11-22 00:00:00 2016-11-22 00:00:00 Daily [facility] Alcoholic beverage intake 2016-11-22 00:00:00 2016-11-22 00:00:00 Current drinker of alcohol (finding) [facility] Tobacco use and exposure 2016-11-22 00:00:00 2016-11-22 00:00:00 Smokeless tobacco non-user [facility] Sex assigned at 1985 00:00:00 1985 00:00:00 [facility] Smoking Status Start Date Stop Date Source Never smoked tobacco [facility] Medications Ordered Medication Name Filled Medication Name Start Date Stop Date Current Medication? Ordering Clinician Indication Dosage Frequency Signature (SIG) Comments Components Source cloNIDine (CATAPRES) tablet 0.1 mg 06-02 04:45: 00 06-02 05:17 :00 No .1mg 0.1 mg, Oral, ONCE, 1 dose, On Sat06/01/24 at 2245, STAT [facility] HYDROcodone -acetaminop hen (NORCO 5) tablet 1 tablet 06-02 04:45: 00 06-02 05:17 :00 No 1{tbl} 1 tablet, Oral, ONCE, 1 dose, On Sat06/01/24 at 2245, [facility] acute hospital methylpredn isolone sod succ (SOLU-MEDRO L) injection 125 mg 06-02 04:40: 00 06-02 05:18 :00 No 125mg 125 mg, Intramuscu lar, ONCE NOW, 1 dose, On Sat06/01/24 at 2245, [facility] acute hospital acetaminoph en-codeine 300-30 mg tablet 06-02 00:00: 00 06-10 05:59 :00 Yes [id number] 1{tbl} Take 1 tablet by mouth every 8 (eight) hours as needed for Pain (scale 4-6) for up to 7 days. Indication s: acute pain [facility] lisinopriL (PRINIVIL,Z ESTRIL) tablet 20 mg 12-07 14:00: 00 Yes 20mg 20 mg, Oral, DAILY, First dose on Viktoriya 12/07/21 at 0900, Until Discontinu ed, Routine [facility] HYDROcodone -acetaminop hen (NORCO) 10-325 mg tablet 1 tablet 12-06 17:15: 00 12-06 16:12 :00 No 1{tbl} 1 tablet, Oral, ONCE, 1 dose, On Sat12/06/21 at 1215, [facility] carvediloL (COREG) tablet 25 mg 12-06 17:15: 00 12-06 16:12 :00 No 25mg 25 mg, Oral, ONCE, 1 dose, On Sat12/06/21 at 1215, Routine [facility] methylpredn isolone sod succ (SOLU-MEDRO L) injection 125 mg 12-06 16:45: 00 12-06 16:09 :00 No 125mg 125 mg, Intramuscu lar, ONCE, 1 dose, On Sat12/06/21 at 1145, REGINA [facility] predniSONE 20 mg tablet 12-06 00:00: 00 Yes [id number] 1 PO BID x 4 days [facility] acetaminoph en-codeine 300-30 mg tablet 12-06 00:00: 00 Yes [id number] 1{tbl} Take 1 tablet by mouth every 4 (four) hours as needed for Pain (scale 4-6). Indication s: acute pain [facility] aspirin 81 mg chewable tablet 09-14 00:00: 00 Yes [id number] 81mg Take 1 tablet by mouth daily. [facility] atorvastati n 40 mg tablet 09-14 00:00: 00 Yes [id number] 40mg Take 1 tablet by mouth at bedtime. [facility] carvediloL 25 mg tablet 09-14 00:00: 00 Yes [id number] 37.5mg Take 1.5 tablets by mouth 2 (two) times daily with meals. [facility] furosemide 40 mg tablet 09-14 00:00: 00 Yes [id number] 40mg Take 1 tablet by mouth every morning and evening. [facility] lisinopriL 10 mg tablet 09-14 00:00: 00 Yes [id number] 30mg Take 3 tablets by mouth daily. [facility] spironolact one 25 mg tablet 09-14 00:00: 00 Yes [id number] 25mg Take 1 tablet by mouth daily. [facility] aspirin 81 mg chewable tablet -19 00:00: 00 09-14 00:00 :00 No [id number] 81mg Take 1 tablet by mouth daily for 180 days. [facility] lisinopriL 10 mg tablet 08-22 00:00: 00 09-14 00:00 :00 No [id number] 30mg Take 3 tablets by mouth daily for 180 days. [facility] spironolact one 25 mg tablet 08-22 00:00: 00 09-14 00:00 :00 No [id number] 25mg Take 1 tablet by mouth daily for 180 days. [facility] carvediloL (COREG) tablet 37.5 mg 08-21 22:00: 00 Yes 37.5mg 37.5 mg, Oral, BID MEALS, First dose (after last modificati on) on Sat08/21/21 at 1700, Until Discontinu ed, Routine [facility] lisinopriL (PRINIVIL,Z ESTRIL) tablet 30 mg 08-21 14:00: 00 Yes 30mg 30 mg, Oral, DAILY, First dose (after last modificati on) on Sat08/21/21 at 0900, Until Discontinu ed, Routine [facility] magnesium oxide (MAG-OX 400) tablet 400 mg 08-21 13:45: 00 08-21 13:20 :00 No 400mg 400 mg, Oral, ONCE, 1 dose, On Sat08/21/21 at 0845, Routine [facility] amLODIPine 10 mg tablet 08-21 11:33: 41 08-21 00:00 :00 No 10mg Take 10 mg by mouth daily. [facility] hydroCHLORO thiazide 25 mg tablet 08-21 11:33: 41 08-21 00:00 :00 No 25mg Take 25 mg by mouth daily. [facility] ibuprofen 800 mg tablet 08-21 11:33: 41 08-21 00:00 :00 No 800mg Take 800 mg by mouth 2 (two) times daily. [facility] hydrALAZINE (APRESOLINE ) tablet 10 mg 08-21 07:00: 00 08-21 06:05 :00 No 10mg 10 mg, Oral, ONCE, 1 dose, On Sat08/21/21 at 0200, Routine [facility] atorvastati n 40 mg tablet 08-21 00:00: 00 09-14 00:00 :00 No [id number] 40mg Take 1 tablet by mouth at bedtime for 180 days. [facility] furosemide 40 mg tablet 08-21 00:00: 00 09-14 00:00 :00 No [id number] 40mg Take 1 tablet by mouth every morning and evening for 180 days. [facility] carvediloL 25 mg tablet 08-21 00:00: 00 09-14 00:00 :00 No [id number] 37.5mg Take 1.5 tablets by mouth 2 (two) times daily with meals for 180 days. [facility] carvediloL 25 mg tablet 08-21 00:00: 00 08-21 00:00 :00 No [id number] 25mg Take 1 tablet by mouth 2 (two) times daily with meals for 180 days. [facility] furosemide (LASIX) tablet 40 mg 08-20 14:00: 00 Yes 40mg 40 mg, Oral, QAM+PM, First dose (after last modificati on) on Sat08/20/21 at 0900, Until Discontinu ed, Routine [facility] lisinopriL (PRINIVIL,Z ESTRIL) tablet 20 mg 08-20 14:00: 00 08-21 11:42 :47 No 20mg 20 mg, Oral, DAILY, First dose (after last modificati on) on Sat08/20/21 at 0900, Until Discontinu ed, Routine [facility] carvediloL (COREG) tablet 25 mg 08-20 13:00: 00 08-21 17:46 :56 No 25mg 25 mg, Oral, BID MEALS, First dose (after last modificati on) on 08/20/21 at 0800, Until Discontinu ed, Routine [facility] lisinopriL (PRINIVIL,Z ESTRIL) tablet 5 mg 08-19 15:00: 00 08-19 14:30 :00 No 5mg 5 mg, Oral, ONCE, 1 dose, On Sat08/19/21 at 1000, Routine [facility] carvediloL (COREG) tablet 12.5 mg 08-19 13:00: 00 08-19 22:39 :41 No 12.5mg 12.5 mg, Oral, BID MEALS, First dose (after last modificati on) on Sat08/19/21 at 0800, Until Discontinu ed, Routine [facility] furosemide (LASIX) injection 40 mg 08-19 01:00: 00 08-19 17:31 :11 No 40mg 40 mg, Slow IV Push, Q12H, First dose on Sat08/18/21 at 2000, Until Discontinu ed, Routine [facility] hydrALAZINE (APRESOLINE ) tablet 25 mg 08-18 21:47: 07 Yes 25mg 25 mg, Oral, Q6HPRN, Starting on Sat08/18/21 at 1647, Until Discontinu ed, Routine, SBP >180 [facility] lisinopriL (PRINIVIL,Z ESTRIL) tablet 10 mg 08-18 18:15: 00 08-18 18:14 :00 No 10mg 10 mg, Oral, DAILY, 1 dose, First dose on Sat08/18/21 at 1315, Routine [facility] lisinopriL (PRINIVIL,Z ESTRIL) tablet 10 mg 08-18 16:00: 00 08-19 13:47 :35 No 10mg 10 mg, Oral, DAILY, First dose on Sat08/18/21 at 1100, Until Discontinu ed, Routine [facility] spironolact one (ALDACTONE) tablet 25 mg 08-18 14:00: 00 Yes 25mg 25 mg, Oral, DAILY, First dose on Sat08/18/21 at 0900, Until Discontinu ed, Routine [facility] aspirin chewable tablet 81 mg 08-18 14:00: 00 Yes 81mg 81 mg, Oral, DAILY, First dose on Sat08/18/21 at 0900, Until Discontinu ed, Routine [facility] furosemide (LASIX) tablet 40 mg 08-18 14:00: 00 08-18 16:18 :32 No 40mg 40 mg, Oral, QAM+PM, First dose on Sat08/18/21 at 0900, Until Discontinu ed, Routine [facility] amLODIPine (NORVASC) tablet 10 mg 08-18 12:00: 00 08-18 11:05 :00 No 10mg 10 mg, Oral, ONCE, 1 dose, On Sat08/18/21 at 0700, Routine [facility] atorvastati n (LIPITOR) tablet 40 mg 08-18 02:00: 00 Yes 40mg 40 mg, Oral, QHS, First dose on Sat08/17/21 at 2100, Until Discontinu ed, Routine [facility] heparin (porcine) injection 5,000 Units 08-18 01:00: 00 Yes 5000U 5,000 Units, Subcutaneo us, Q12H, First dose on Sat08/17/21 at 2000, Until Discontinu ed, Routine [facility] hydrALAZINE (APRESOLINE ) tablet 10 mg 08-17 22:45: 00 08-17 23:51 :00 No 10mg 10 mg, Oral, ONCE, 1 dose, On Sat08/17/21 at 1745, Routine [facility] hydrALAZINE (APRESOLINE ) tablet 10 mg 08-17 21:45: 54 08-18 21:47 :24 No 10mg 10 mg, Oral, Q6HPRN, Starting on Sat08/17/21 at 1645, Until Sat08/18/21 at 1647, Routine, SBP >180 [facility] sulfur hexafluorid e microsphr (LUMASON) injection 5 mL 08-17 20:45: 00 08-17 20:45 :00 No [id number] 5mL 5 mL, Intravenou s, ONCE, 1 dose, On Sat08/17/21 at 1545, Routine
meat service team member approving Restricted medication : DEZ QIU [facility] magnesium sulfate in water 4 gram/50 mL (8 %) IV Piggyback 4 g 08-17 18:15: 00 08-17 18:29 :00 No 4g 4 g, IV Piggyback, ONCE, 1 dose, On Viktoriya 08/17/21 at 1315, Routine [facility] KCL (KLOR-CON M20) tablet 40 mEq 08-17 18:15: 00 08-17 18:10 :00 No 40meq 40 mEq, Oral, ONCE, 1 dose, On Viktoriya 08/17/21 at 1315, Routine [facility] furosemide (LASIX) injection 40 mg 08-17 17:15: 00 08-18 12:42 :25 No 40mg 40 mg, Slow IV Push, Q12H, First dose on Viktoriya 08/17/21 at 1215, Until Discontinu ed, Routine [facility] acetaminoph en (TYLENOL) tablet 650 mg 08-17 14:09: 58 Yes 650mg 650 mg, Oral, Q6HPRN, Starting on Sat08/17/21 at 0909, Until Discontinu ed, Routine, Pain (scale 1-3) [facility] amLODIPine 10 mg tablet 08-17 09:16: 15 Yes 10mg Take 10 mg by mouth daily. [facility] hydroCHLORO thiazide 25 mg tablet 08-17 09:16: 15 Yes 25mg Take 25 mg by mouth daily. [facility] ibuprofen 800 mg tablet 08-17 09:16: 15 Yes 800mg Take 800 mg by mouth 2 (two) times daily. [facility] Vital Signs Vital Name Observation Time Observation Value Comments S qi Systolic blood pressure 2024-06-02 06:00:00 183 mm[Hg] [facility] Diastolic blood pressure 2024-06-02 06:00:00 132 mm[Hg] [facility] hospital Heart rate 2024-06-02 05:18:00 82 /min [facility] Body temperature 2024-06-02 05:18:00 37 Anastasiia [facility] Respiratory rate 2024-06-02 05:18:00 20 /min [facility] Oxygen saturation in Arterial blood by Pulse oximetry 2024-06-02 05:18:00 100 /min [facility] hospital Body height 2024-06-02 03:39:00 182.9 [facility] Body weight 2024-06-02 03:39:00 102.377 [facility] BMI 2024-06-02 03:39:00 30.61 kg/m2 [facility] Systolic blood pressure 2021-12-06 17:40:07 158 mm[Hg] [facility] hospital Diastolic blood pressure 2021-12-06 17:40:07 105 mm[Hg] [facility] acute hospital Heart rate 2021-12-06 15:43:00 91 /min [facility] Respiratory rate 2021-12-06 15:43:00 20 /min [facility] Oxygen saturation in Arterial blood by Pulse oximetry 2021-12-06 15:43:00 97 /min [facility] Body temperature 2021-12-06 14:49:00 36.61 Anastasiia [facility] Body height 2021-12-06 14:49:00 182.9 cm [facility] Body weight 2021-12-06 14:49:00 99.791 [facility] BMI 2021-12-06 14:49:00 29.84 kg/m2 [facility] Systolic blood pressure 2021-08-21 20:39:00 143 mm[Hg] [facility] acute hospital Diastolic blood pressure 2021-08-21 20:39:00 104 mm[Hg] [facility] acute hospital Heart rate 2021-08-21 20:39:00 79 /min [facility] Body temperature 2021-08-21 20:39:00 36 Anastasiia [facility] Respiratory rate 2021-08-21 20:39:00 18 /min [facility] Oxygen saturation in Arterial blood by Pulse oximetry 2021-08-21 20:39:00 99 /min [place] [facility] Body weight 2021-08-21 10:57:00 104.055 [facility] BMI 2021-08-21 10:57:00 31.11 kg/m2 [facility] Body height 2021-08-18 10:31:00 182.9 cm [facility] Procedures Procedure Date / Time Performed Performing Clinician Source NOTICE OF PRIVACY PRACTICES 2021-12-06 14:38:21 Doctor Unassigned, [place] [facility] CONSENT/REFUSAL FOR DIAGNOSIS AND TREATMENT 2021-12-06 14:38:03 Doctor Unassigned, [place] [facility] AUTHORIZATION FOR RELEASE OF PHI 2021-09-01 05:01:00 Doctor Unassigned, [place] [facility] MAGNESIUM 2021-08-21 08:42:00 Eryn Cowart [facility] BASIC METABOLIC PANEL (NA, K, CL, CO2, GLUCOSE, BUN, CREATININE, CA) 2021-08-21 08:42:00 Supa [facility] N-TERMINAL PRO-BNP 2021-08-21 08:42:00 Gaston [facility] HB ECG ROUTINE & RHYTHM STRIP 2021-08-20 13:02:55 [facility] 2021-08-20 09:22:00 Letty March [facility] BASIC METABOLIC PANEL (NA, K, CL, CO2, GLUCOSE, BUN, CREATININE, CA) 2021-08-20 09:22:00 [facility] 2021-08-20 09:22:00 [facility] HB [facility] ROUTINE & RHYTHM STRIP 2021-08-19 13:08:08 [facility] 2021-08-19 10:21:00 Gaston [facility] BASIC METABOLIC PANEL (NA, K, CL, CO2, GLUCOSE, BUN, CREATININE, CA) 2021-08-19 10:21:00 Gaston Elizbaeth [facility] BASIC METABOLIC PANEL (NA, K, CL, CO2, GLUCOSE, BUN, CREATININE, CA) 2021-08-18 19:41:00 Supa [facility] HB ECG ROUTINE & RHYTHM STRIP 2021-08-18 14:50:24 Supa [facility] MAGNESIUM 2021-08-18 09:10:00 [facility] (NA, K, CL, CO2, GLUCOSE, BUN, CREATININE, CA) 2021-08-18 09:10:00 Supa [facility] CBC WITH DIFF 2021-08-18 09:10:00 Supa [facility] TROPONIN I 2021-08-17 23:58:00 Supa [facility] TRANSTHORACIC ECHO (TTE) COMPLETE W/ CONTRAST 2021-08-17 18:53:00 Supa [facility] PHOSPHORUS 2021-08-17 15:43:00 [facility] 2021-08-17 15:43:00 Supa [facility] FERRITIN SERUM 2021-08-17 15:43:00 Eryn Cowart [facility] TROPONIN I 2021-08-17 15:43:00 Supa [facility] THYROID STIMULATING HORMONE 2021-08-17 15:43:00 Supa [facility] HEPATIC FUNCTION PANEL (85144) (ALB,T.PRO,BILI T,BU/BC,ALT,AST,ALK PHOS) 2021-08-17 15:43:00 Supa [facility] BASIC METABOLIC PANEL (NA, K, CL, CO2, GLUCOSE, BUN, CREATININE, CA) 2021-08-17 15:43:00 Supa [facility] IRON PANEL 2021-08-17 15:43:00 Supa [facility] CBC WITH DIFF 2021-08-17 15:43:00 Supa [facility] GLYCOSYLATED HEMOGLOBIN (A1C) 2021-08-17 15:43:00 Eryn Cowart [facility] N-TERMINAL PRO-BNP 2021-08-17 15:43:00 Eryn Cowart [facility] XR CHEST 1 VW 2021-08-17 15:10:00 Eryn [facility] EXTERNAL PROVIDER RECORDS 2016-11-23 05:01:00 Doctor Unassigned, [place] [facility] DAY SURGERY - ADC 2016-11-23 05:01:00 Doctor Ivonne ssigned, [place] [facility] Encounters Start Date/Time End Date/Time Encounter Type Admission Type Attending [facility] Facility Care Department Encounter ID Source 2016-11-23 00:00:00 2024-06-20 03:42:57 Orders Only Doctor Unassigned, [place] Doctor Unassigned, [place] [facility] [id number] 350.1.13.10 4.2.7.2.686 [id number] [facility] 2024-06-10 00:00:00 2024-06-10 11:09:01 Letter (Out) Campaigns, Generic Provider Campaigns, Generic Provider [facility] [id number] 350.1.13.10 4.2.7.2.686 [id number] [facility] 2024-06-01 21:44:00 2024-06-02 00:17:00 Emergency X MIGDALIA VILLEGAS SHINTA [facility] ERT [id number] [facility] 2024-06-01 21:44:00 2024-06-02 00:17:00 Emergency Migdalia Villegas [facility] [id number] 350.1.13.10 4.2.7.2.686 [id number] [facility] 2024-03-30 10:06:11 2024-03-30 10:06:11 Outpatient [facility] [id number] W[address]ell 2022-08-17 00:00:00 2022-08-17 00:00:00 [facility] 1.2840.114 350.1.13.10 4.2.7.2.686 [id number] [facility] 2021-12-06 09:51:00 2021-12-06 13:09:00 Emergency X Tameka NOVOA [facility] ERT [id number] [facility] 2021-12-06 09:51:00 2021-12-06 13:09:00 Emergency Tameka Novoage [facility] [id number] 350.1.13.10 4.2.7.2.686 [id number] [facility] 2021-12-06 00:00:00 2021-12-06 00:00:00 Orders Only Doctor Unassigned, [place] [facility] 1.2840.114 350.1.13.10 4.2.7.2.686 [id number] [facility] 2021-09-14 00:00:00 2021-09-14 00:00:00 [facility] 1.2840.114 350.1.13.10 4.2.7.2.686 [id number] [facility] 2021-09-12 00:00:00 2021-09-12 00:00:00 [facility] 1.2840.114 350.1.13.10 4.2.7.2.686 [id number] [facility] 2021-09-01 00:00:00 2021-09-01 00:00:00 [facility] 1.2840.114 350.1.13.10 4.2.7.2.686 [id number] [facility] 2021-09-01 00:00:00 2021-09-01 00:00:00 Orders Only Doctor Unassigned, [place] [facility] 1.0.114 350.1.13.10 4.2.7.2.686 [id number] [facility] 2021-08-30 00:00:00 2021-08-30 00:00:00 Telephone Basim Cota [facility] 1..114 350.1.13.10 4.2.7.2.686 [id number] [facility] 2021-08-22 00:00:00 2021-08-22 00:00:00 Transition of Care Neumann Sherrell [facility]av[facility] 1..114 350.1.13.10 4.2.7.2.686 [id number] [facility] 2021-08-17 08:35:00 2021-08-21 17:42:00 Inpatient U DIMITRIOS ABEL [facility] [id number] [facility] 2021-08-17 08:35:00 2021-08-21 17:42:00 Hospital Encounter Basim Cota Khaled F [facility] 1..114 350.1.13.10 4.2.7.2.686 [id number] [facility] 2021-08-18 00:00:00 2021-08-18 00:00:00 Telephone iDmitrios Abel [facility] 1..114 350.1.13.10 4.2.7.2.686 [id number] [facility] Results Test Description Test Time Test Comments Results Result Co mments Source [facility] (NA, K, CL, CO2, GLUCOSE, BUN, CREATININE, CA)2021-08-21 10:07:34* Test Item Value Reference Range Interpretation Comme nts NA (test code = 8758562299) 135 mmol/L 135-145 K (test code = 0030644373) 4.4 mmol/L 3.5-5.0 CL (test code = 7626972956) 102 mmol/L 98-108 CO2 TOTAL (test code = 0964513221) 26 mmol/L 23-31 AGAP (test code = 3038685301) 2-16 BUN (test code = 9747547690) 27 mg/dL 7-23 H GLUCOSE (test code = 2955668756) 104 mg/dL 70-110 CREATININE (test code = 6381333313) 1.49 mg/dL 0.60-1.25 H CALCIUM (test code = 1637728578) 9.0 mg/dL 8.6-10.6 eGFR (test code = 8487266159) mL/min/1.73m2 EBEN (test code = EBEN) Association [...] imaging tests). Lab Interpretation (test code = 12812-4) [facility]normal [facility] 10:07:34* Test Item Value Reference Range Interpretation Comme nts MAGNESIUM (test code = 5581597617) 1.9 mg/dL 1.7-2.4 Lab Interpretation (test cod e = 03989-1) Normal [facility] (NA, K, CL, CO2, GLUCOSE, BUN, CREATININE, CA)2021-08-20 10:22:59* Test Item Value Reference Range Interpretation Comme nts NA (test code = 8810931073) 137 mmol/L 135-145 K (test code = 5239370796) 4.4 mmol/L 3.5-5.0 CL (test code = 5828862566) 102 mmol/L 98-108 CO2 TOTAL (test code = 2069403616) 26 mmol/L 23-31 AGAP (test code = 6236580424) 2-16 BUN (test code = 8141930724) 31 mg/dL 7-23 H GLUCOSE (test code = 9020723652) 119 mg/dL 70-110 H CREATININE (test code = 7635272938) 1.56 mg/dL 0.60-1.25 H CALCIUM (test code = 5692567495) 9.1 mg/dL 8.6-10.6 eGFR (test code = 4071189188) mL/min/1.73m2 EBEN (test code = EBEN) Association [...] imaging tests). Lab Interpretation (test code = 64658-9) Abnormal [facility] 10:22:59* Test Item Value Reference Range Interpretation Comme nts MAGNESIUM (test code = 4885111522) 2.1 mg/dL 1.7-2.4 Lab Interpretation (test cod e = 66711-8) Normal [facility] WITH LDIS4456-07-01 09:42:15* Test Item Value Reference Range Interpretation Comme nts WBC (test code = 6690-2) See_Comment H [Automated [employer]] The system which generated this result transmitted reference range: 4.20 - 10.70 10*3/?L. The reference range was not used to interpret this result as normal/abnormal. RBC (test code = 789-8) See_Comment [Automated [employer]] The system which generated this result [...] 32.8 g/dL 31.2-35.0 RDW-SD (test code = 09794-3) 39.3 fL 38.5-51.6 RDW-CV (test code = 788-0) 12.5 % 12.1-15.4 PLT (test code = 777-3) See_Comment H [Automated messa ge] The system which generated this result transmitted reference range: 150 - 328 10*3/?L. The reference range was not used to interpret this result as normal/abnormal. MPV (test code = 82336-0) 9.3 fL 9.8-13.0 L NRBC/100 WBC (test code = 0487421802) See_Comment [Automated [employer]] The system which generated this result transmitted reference range: 0.0 - 10.0 /100 WBCs. The reference range was not used to interpret this result as normal/abnormal. NRBC x10^3 (test code = 2091680940) <0.01 See_Comment [Automated [employer]] The system which generated this result transmitted reference range: 10*3/?L. The reference range was not used to interpret this result as normal/abnormal. GRAN MAT (NEUT) % (test code = 770-8) 60.5 % IMM GRAN % (test code = 1987699957) 0.30 % LYMPH % (test code = 736-9) 26.7 % MONO % (test code = 5905-5) 8.3 % EOS % (test code = 713-8) 3.4 % BASO % (test code = 706-2) 0.8 % GRAN MAT x10^3(ANC) (test code = 9023803342) 7.17 10*3/uL 1.99-6.95 H IMM GRAN x10^3 (test code = 1865998001) 0.03 10*3/uL 0.00-0.06 LYMPH x10^3 (test code = 731-0) 3.16 10*3/uL 1.09-3.23 MONO x10^3 (test code = 742-7) 0.98 10*3/uL 0.36-1.02 EOS x10^3 (test code = 711-2) 0.40 10*3/uL 0.06-0.53 BASO x10^3 (test code = 704-7) 0.10 10*3/uL 0.01-0.09 H Lab Interpretation (test code = 18596-7) [facility] (NA, K, CL, CO2, GLUCOSE, BUN, CREATININE, CA)2021-08-19 10:52:12* Test Item Value Reference Range Interpretation Comme nts NA (test code = 8648947436) 136 mmol/L 135-145 K (test code = 6037825586) 3.8 mmol/L 3.5-5.0 CL (test code = 1997570912) 100 mmol/L 98-108 CO2 TOTAL (test code = 0303586048) 29 mmol/L 23-31 AGAP (test code = 2471620393) 2-16 BUN (test code = 0522913180) 32 mg/dL 7-23 H GLUCOSE (test code = 8051780103) 115 mg/dL 70-110 H CREATININE (test code = 9117416916) 1.67 mg/dL 0.60-1.25 H CALCIUM (test code = 8011519828) 9.1 mg/dL 8.6-10.6 eGFR (test code = 1766846325) mL/min/1.73m2 EBEN (test code = EBEN) Association [...] imaging tests). Lab Interpretation (test code = 97145-5) [facility] 10:52:12* Test Item Value Reference Range Interpretation Comme nts MAGNESIUM (test code = 0037610409) 1.9 mg/dL 1.7-2.4 Lab Interpretation (test cod e = 87369-3) [facility] (NA, K, CL, CO2, GLUCOSE, BUN, CREATININE, CA)2021-08-18 21:19:06* Test Item Value Reference Range Interpretation Comme nts NA (test code = 7252000141) 135 mmol/L 135-145 K (test code = 1709876553) 3.9 mmol/L 3.5-5.0 CL (test code = 6314093562) 98 mmol/L 98-108 CO2 TOTAL (test code = 5173075810) 30 mmol/L 23-31 AGAP (test code = 4553461745) 2-16 BUN (test code = 9589741707) 29 mg/dL 7-23 H GLUCOSE (test code = 6337583288) 121 mg/dL 70-110 H CREATININE (test code = 9059756403) 1.58 mg/dL 0.60-1.25 H CALCIUM (test code = 5043290662) 8.9 mg/dL 8.6-10.6 eGFR (test code = 6247940309) mL/min/1.73m2 EBEN (test code = EBEN) Association [...] imaging tests). Lab Interpretation (test code = 71586-8) Abnormal [facility] METABOLIC PANEL (NA, K, CL, CO2, GLUCOSE, BUN, CREATININE, CA)2021-08-18 10:04:44* Test Item Value Reference Range Interpretation Comme nts NA (test code = 1418422887) 135 mmol/L 135-145 K (test code = 5775127989) 4.0 mmol/L 3.5-5.0 Slight hemolysis CL (test code = 0849597476) 101 mmol/L 98-108 CO2 TOTAL (test code = 2327677113) 29 mmol/L 23-31 AGAP (test code = 7167730975) 2-16 BUN (test code = 2538031514) 32 mg/dL 7-23 H Slight hemolysis GLUCOSE (test code = 1116334199) 114 mg/dL 70-110 H CREATININE (test code = 9747828015) 1.54 mg/dL 0.60-1.25 H CALCIUM (test code = 2403868157) 8.8 mg/dL 8.6-10.6 eGFR (test code = 9599082945) mL/min/1.73m2 EBEN (test code = EBEN) Association [...] imaging tests). Lab Interpretation (test code = 18241-8) [facility] 10:04:44* Test Item Value Reference Range Interpretation Comme nts MAGNESIUM (test code = 6018018498) 2.2 mg/dL 1.7-2.4 Lab Interpretation (test cod e = 24312-4) Normal [facility] WITH [id number] 09:24:38* Test Item Value Reference Range Interpretation Comme nts WBC (test code = 6690-2) See_Comment [Automated [employer]] The system which generated this result transmitted reference range: 4.20 - 10.70 10*3/?L. The reference range was not used to interpret this result as normal/abnormal. RBC (test code = 789-8) See_Comment [Automated [employer]] The system which generated this result [...] 33.3 g/dL 31.2-35.0 RDW-SD (test code = 15770-3) 39.1 fL 38.5-51.6 RDW-CV (test code = 788-0) 12.6 % 12.1-15.4 PLT (test code = 777-3) See_Comment H [Automated messa ge] The system which generated this result transmitted reference range: 150 - 328 10*3/?L. The reference range was not used to interpret this result as normal/abnormal. MPV (test code = 36746-5) 9.5 fL 9.8-13.0 L NRBC/100 WBC (test code = 0548030732) See_Comment [Automated [employer]] The system which generated this result transmitted reference range: 0.0 - 10.0 /100 WBCs. The reference range was not used to interpret this result as normal/abnormal. NRBC x10^3 (test code = 4515016444) <0.01 See_Comment [Automated messa ge] The system which generated this result transmitted reference range: 10*3/?L. The reference range was not used to interpret this result as normal/abnormal. GRAN MAT (NEUT) % (test code = 770-8) 65.3 % IMM GRAN % (test code = 5369705114) 0.20 % LYMPH % (test code = 736-9) 23.3 % MONO % (test code = 5905-5) 7.0 % EOS % (test code = 713-8) 3.5 % BASO % (test code = 706-2) 0.7 % GRAN MAT x10^3(ANC) (test code = 2761757538) 6.63 10*3/uL 1.99-6.95 IMM GRAN x10^3 (test code = 3252518153) <0.03 0.00-0.06 LYMPH x10^3 (test code = 731-0) 2.36 10*3/uL 1.09-3.23 MONO x10^3 (test code = 742-7) 0.71 10*3/uL 0.36-1.02 EOS x10^3 (test code = 711-2) 0.35 10*3/uL 0.06-0.53 BASO x10^3 (test code = 704-7) 0.07 10*3/uL 0.01-0.09 Lab Interpretation (test code = 75387-9) [facility]normal [facility]A1C)2021-08-18 02:37:07* Test Item Value Reference Range Interpretation Comme nts HGB A1C (test code = 4548-4) 5.8 % 4.0-5.7 H EBEN (test code = EBEN) Reference RangesNormal: <5.7%Prediabetes: 5.7 - 6.4%Diabetes: > 6.5% Lab Interpretation (test code = 27129-4) [facility]normal [facility] [id number] 01:03:37* Test Item Value Reference Range Interpretation Comments TROPONIN I (test code = 3948755433) 0.101 ng/mL See_Comment H [Automated message] The [...] of biotin. Lab Interpretation (test code = 35957-6) [facility]normal [facility]2021-08-17 22:14:20* Test Item Value Reference Range Interpretation Comme nts Ao root annulus (test code = 8528720157) 3.3 cm Ao root diam (test code = 1048545764) 3.30 cm Aortic root (test code = 1198399385) 3.3 cm LA size (test code = 1211148026) 3.7 cm LVOT diameter (test code = 9249191387) 2.00 cm LVIDD (test code = 3445361720) 5.90 cm IVS (test code = 4557163511) 1.26 cm Interventricular Septum Diastolic Thickness by 2D (test code = 0419777) 1.26 cm LVPWD (test code = 9206933706) 1.19 cm PW (test code = 3595765676) 1.19 cm 0.6-1.1 EF(Teich) (test code = 8655170489) 46.60 % LVIDS (test code = 0424514903) 4.50 cm FS (test code = 7025050443) 24 % EF - 2D (test code = 59080412) 46.60 % LAV(MOD-sp4) (test code = 4380074691) 65.30 mL MV Peak E Narciso (test code = 1121132287) 126.4 cm/s E wave decelartion time (test code = 9934719509) 0.14 s MV Prop V (test code = 6291661480) 35.00 cm/s LVOT stroke volume (test code = 2778842986) 45.10 cm3 LVOT peak narciso (test code = 8188740067) 90.0 cm/s LVOT mn grad (test code = 2765175990) mmHg AV LVOT peak gradient (test code = 4773751820) mmHg LVOT peak VTI (test code = 5612273176) 14.4 cm LV V1 mean (test code = 1531214831) 63.00 cm/s Aortic valve mean velocity (test code = 6260816862) 76.8 cm/s Ao peak narciso (test code = 0145375623) 125.5 cm/s Ao VTI (test code = 6461232263) 17.0 cm AV area by cont VTI (test code = 6384925303) 2.6 cm2 AV area peak narciso (test code = 1255541667) 2.2 cm2 Ao max PG (test code = 3744387574) 6.30 mm[Hg] AV peak gradient (test code = 3090966668) mmHg AV valve area (test code = 6196816595) 2.60 cm2 AV mean gradient (test code = 3811934574) mmHg TR Peak Narciso (test code = 6123722114) 119.4 cm/s Triscuspid Valve Regurgitation Peak Gradient (test code = 7927748564) mmHg Tapse (test code = 4200424166) 1.95 cm LA volume (BP) (test code = 2281296808) 73.5 mL LAV(MOD-sp2) (test code = 6965098946) 74.00 mL LA Volume Index (BP) (test code = 2747396422) 32.5 mL/m2 LV Diastolic Volume (BP) (test code = 5476370562) 232.2 mL EF(MOD-bp) (test code = 5977546155) 33.10 % LV Systolic Volume (BP) (test code = 0149781635) 155.2 mL SV(MOD-bp) (test code = 7561532063) 76.90 mL EF (test code = 2155748125) 33 % Left Ventricular Stroke Volume by 2-D Biplane-MOD (test code = 2238893) 76.9 mL Radiology Study observation (narrative) (test code = 41985-2) EBEN (test code = EBEN) ?Left?Ventricle: Left [...] (104.3 kg) 2.3 sq meters 183/126 82 [facility] (ALB,T.PRO,BILI T,BU/BC,ALT,AST,ALK PHOS)2021-08-17 17:59:20* Test Item Value Reference Range Interpretation Comme nts TOTAL BILI (test code = 8551100738) 0.4 mg/dL 0.1-1.1 BILI UNCON (test code = 7223513763) 0.4 mg/dL 0.1-1.1 BILI CONJ (test code = 4285553697) 0.0 mg/dL 0.0-0.3 T PROTEIN (test code = 2228709753) 6.4 g/dL 6.3-8.2 ALBUMIN (test code = 7330249481) 3.7 g/dL 3.5-5.0 ALK PHOS (test code = 8191820467) 64 U/L 34-122 ALTv (test code = 1742-6) 39 U/L 5-50 AST(SGOT) (test code = 0412906242) 30 U/L 13-40 Lab Interpretation (test cod e = 30227-5) Normal [facility] CenterFERR[facility]IN [id number] 17:21:19* Test Item Value Reference Range Interpretation Comme nts FERRITIN (test code = 0884547309) 29.7 ng/mL 18.0-464.0 EBEN (test code = EBEN) Biotin has been reported to cause a negative bias, interpret results relative to patient's use of biotin. Lab Interpretation (test code = 54659-0) Normal [facility] CenterTHYROID STIMULATING [id number] 17:14:24 * Test Item Value Reference Range Interpretation Comme nts TSH (test code = 7690383716) See_Comment [Automated [employer]a [employer]] The system which generated this result transmitted reference range: 0.45 - 4.70 mIU/L. The reference range was not used to interpret this result as normal/abnormal. Lab Interpretation (test code = 56609-2) Normal [facility] CenterN-TERMINAL [id number] 16:55:55* Test Item Value Reference Range Interpretation Comme nts NT-proBNP (test code = 7531790775) 5070 pg/mL See_Comment H [Automated message] The system which generated this result transmitted reference range: <=125. The reference range was not used to interpret this result as normal/abnormal. EBEN (test code = EBEN) Biotin has been reported to cause a negative bias, interpret results relative to patient's use of biotin. Lab Interpretation (test code = 18728-2) Abnormal [facility]TR[facility] [id number] 16:55:55* Test Item Value Reference Range Interpretation Comments TROPONIN I (test code = 2016599473) 0.117 ng/mL See_Comment H [Automated message] The [...] of biotin. Lab Interpretation (test code = 63259-1) Abnormal [facility] CenterIRON [id number] 16:52:53* Test Item Value Reference Range Interpretation Comme nts IRON (test code = 8108847521) 51 ug/dL 50-160 TIBC (test code = 4601302811) 298 ug/dL 250-410 % FE SAT (test code = 5120664159) 17 % 20-50 L Lab Interpretation (test cod e = 56993-0) [facility]normal [facility]2022-04-14 16:41:35* Test Item Value Reference Range Interpretation Comme nts MAGNESIUM (test code = 1192991622) 1.6 mg/dL 1.7-2.4 L Lab Interpretation (test cod e = 54206-5) Abnormal [facility] CenterPHOSPHORUS2022-04-14 16:41:35* Test Item Value Reference Range Interpretation Comme nts PHOSPHORUS (test code = 2202889172) 4.0 mg/dL 2.5-5.0 Lab Interpretation (test cod e = 12084-1) [facility] (NA, K, CL, CO2, GLUCOSE, BUN, CREATININE, CA)2021-08-17 16:41:35* Test Item Value Reference Range Interpretation Comme nts NA (test code = 9808329057) 134 mmol/L 135-145 L K (test code = 3518722983) 3.6 mmol/L 3.5-5.0 CL (test code = 9077295440) 99 mmol/L 98-108 CO2 TOTAL (test code = 1320438190) 32 mmol/L 23-31 H AGAP (test code = 9148424879) 2-16 BUN (test code = 6761235947) 24 mg/dL 7-23 H GLUCOSE (test code = 6706311627) 111 mg/dL 70-110 H CREATININE (test code = 3357464441) 1.60 mg/dL 0.60-1.25 H CALCIUM (test code = 9989754975) 8.8 mg/dL 8.6-10.6 eGFR (test code = 2346002250) mL/min/1.73m2 EBEN (test code = EBEN) Association [...] imaging tests). Lab Interpretation (test code = 46897-2) Abnormal [facility] WITH [id number] 16:00:05* Test Item Value Reference Range Interpretation [...] 33.7 g/dL 31.2-35.0 RDW-SD (test code = 27425-2) 39.5 fL 38.5-51.6 RDW-CV (test code = 788-0) 12.6 % 12.1-15.4 PLT (test code = 777-3) See_Comment H [Automated messa ge] The system which generated this result transmitted reference range: 150 - 328 10*3/?L. The reference range was not used to interpret this result as normal/abnormal. MPV (test code = 15378-5) 9.4 fL 9.8-13.0 L NRBC/100 WBC (test code = 2602205904) See_Comment [Automated [employer]] The system which generated this result transmitted reference range: 0.0 - 10.0 /100 WBCs. The reference range was not used to interpret this result as normal/abnormal. NRBC x10^3 (test code = 1313939098) <0.01 See_Comment [Automated messa ge] The system which generated this result transmitted reference range: 10*3/?L. The reference range was not used to interpret this result as normal/abnormal. GRAN MAT (NEUT) % (test code = 770-8) 65.6 % IMM GRAN % (test code = 4770669905) 0.20 % LYMPH % (test code = 736-9) 23.8 % MONO % (test code = 5905-5) 6.7 % EOS % (test code = 713-8) 3.2 % BASO % (test code = 706-2) 0.5 % GRAN MAT x10^3(ANC) (test code = 8639081727) 6.58 10*3/uL 1.99-6.95 IMM GRAN x10^3 (test code = 1665686458) <0.03 0.00-0.06 LYMPH x10^3 (test code = 731-0) 2.39 10*3/uL 1.09-3.23 MONO x10^3 (test code = 742-7) 0.67 10*3/uL 0.36-1.02 EOS x10^3 (test code = 711-2) 0.32 10*3/uL 0.06-0.53 BASO x10^3 (test code = 704-7) 0.05 10*3/uL 0.01-0.09 Lab Interpretation (test code = 15476-8) Abnormal [facility] Notes Date/Time Note Provider Source [...] steady gait, in no apparent distress, A [facility] 2024-06-01 21:38:46 Patient arrived ambulatory to ED c/o right foot gout pain that started last night. Patient states being d/c from [place] with prescriptions about 30 minutes ago. States normally gets a shot but they didn't give him one this time. Hx of HTN takes BP medications for it. A Ding RN [facility]"
[2024-08-02] MEDS ORDERED: dexAMETHasone 10 MG/ML VIAL ONE (22:07)
[2024-08-02] MEDS ORDERED: METOPROLOL TAR 50 MG TAB ONE (22:07)
[2024-08-02] MEDS ORDERED: HYDROCODONE/APAP 10/325 TAB ONE (22:07)
[2024-08-02] MEDS ORDERED: KETOROLAC 30 MG/ML INJ ONE (22:07)
[2024-08-02] MEDS ORDERED: lisinopriL 20 MG TAB ONE (23:22)
[2024-08-02] MEDS ORDERED: cloNIDine HCL 0.1 MG TAB ONE (23:22)
--- NOTE | 2024-08-03 00:06 | ER ---
Nurse's Notes [facility] Name: Ezequiel Padron Age: 39 yrs Sex: Male : 1985 Arrival Date: 08/02/2024 Time: 21:16 Bed 13 Private MD: Diagnosis: Hypertensive heart disease with heart failure;Pain in left knee;Pain in foot and toes;Patient's other noncompliance with medication regimen Presentation: 08/02 21:31 Chief complaint: Patient states: My gout has flare up real bad on me today, both my bm8 feet and left knee feel swollen. Coronavirus screen: Vaccine status: Patient reports receiving the 2nd dose of the covid vaccine. Ebola Screen: No symptoms or risks identified at this time. Initial Sepsis Screen: Does the patient meet any 2 criteria? No. Patient's initial sepsis screen is negative. Does the patient have a suspected source of infection? No. Patient's initial sepsis screen is negative. Risk Assessment: Do you want to hurt yourself or someone else? Patient reports no desire to harm self or others. Onset of symptoms was August 02, 2024 at 08:00. 21:31 Method Of Arrival: Ambulatory bm8 21:31 Acuity: HERMELINDA 3 bm8 Triage Assessment: 21:32 General: Appears in no apparent distress. uncomfortable, Behavior is calm, cooperative, bm8 appropriate for age. Pain: Complains of pain in right foot, left foot and left knee Pain currently is 10 out of 10 on a pain scale. EENT: No deficits noted. No signs and/or symptoms were reported regarding the EENT system. Neuro: No deficits noted. Cardiovascular: No deficits noted. Respiratory: No deficits noted. GI: No deficits noted. : No deficits noted. Derm: No deficits noted. Musculoskeletal: Swelling present in right foot, left foot and left knee Tenderness present in right foot, left foot and left leg Reports pain in right foot, left foot and left leg. Historical: - Allergies: 21:32 Nitroglycerin; bm8 - Home Meds: 21:32 atorvastatin oral [Active]; Lasix Oral [Active]; lisinopril 10 mg Oral tablet [Active]; bm8 metoprolol tartrate 100 mg Oral tablet 2 times per day [Active]; - PMHx: 21:32 Congestive heart failure; Gout; Hypertensive disorder; bm8 - PSHx: 21:32 R femur; bm8 - Immunization history:: Adult Immunizations up to date. - Infectious Disease History:: Denies. - Social history:: Smoking status: Patient reports the use of cigarette tobacco products, smokes one-half pack cigarettes per day, Patient uses alcohol, occasionally. Screenin:17 [facility] ED Fall Risk Assessment (Adult) History of falling in the last 3 months, rg5 including since admission No falls in past 3 months (0 pts) Confusion or Disorientation No (0 pts) Intoxicated or Sedated No (0 pts) Impaired Gait No (0 pts) Mobility Assist Device Used No (0 pt) Altered Elimination No (0 pt) Score/Fall Risk Level 0 - 2 = Low Risk Oriented to surroundings, Maintained a safe environment, Hourly rounding (assess needs \T\ fall precautionary measures) done. Abuse screen: Denies threats or abuse. Nutritional screening: No deficits noted. Tuberculosis screening: No symptoms or risk factors identified. Assessment: 22:17 Reassessment: No changes from previously documented assessment. Patient and/or family rg5 updated on plan of care and expected duration. Pain level reassessed. Patient is alert, oriented x 3, equal unlabored respirations, skin warm/dry/pink. General: Appears in no apparent distress. comfortable, Behavior is calm, cooperative, appropriate for age. Pain: Complains of pain in right leg and left leg Pain currently is 10 out of 10 on a pain scale. Quality of pain is described as aching. Neuro: Level of Consciousness is awake, alert, obeys commands, Oriented to person, place, time, situation. Cardiovascular: Denies chest pain. Respiratory: Airway is patent Trachea midline Respiratory effort is even, unlabored, Respiratory pattern is regular, symmetrical. GI: Abdomen is round non-distended, Abd is soft and non tender. : No signs and/or symptoms were reported regarding the genitourinary system. EENT: No deficits noted. Derm: Skin is intact, Skin is dry, Skin is normal, Skin temperature is warm. Musculoskeletal: Circulation, motion, and sensation intact. Range of motion: intact in all extremities. 22:52 Reassessment: Patient and/or family updated on plan of care and expected duration. Pain rg5 level reassessed. Patient is alert, oriented x 3, equal unlabored respirations, skin warm/dry/pink. Patient states feeling better. Patient states symptoms have improved. 23:51 Reassessment: No changes from previously documented assessment. Patient and/or family rg5 updated on plan of care and expected duration. Pain level reassessed. Patient is alert, oriented x 3, equal unlabored respirations, skin warm/dry/pink. Vital Signs: 21:31 BP 182 / 132; Pulse 104; Resp 18; Temp 98.4; Pulse Ox 100% ; Weight 104.33 kg; Height 6 bm8 ft. 0 in. ; Pain 10/10; 22:40 BP 173 / 111; Pulse 99; Resp 18; Pulse Ox 99% on R/A; Pain 0/10; rg5 23:10 BP 188 / 128; Pulse 77; Pulse Ox 98% ; rg5 23:44 BP 188 / 122; Pulse 79; Resp 18; Pulse Ox 96% on R/A; rg5 08/03 00:00 BP 170 / 95; Pulse 76; Resp 18; Pulse Ox 95% on R/A; rg5 00:15 BP 161 / 93; Pulse 77; Resp 17; Pulse Ox 96% on R/A; Pain 0/10; rg5 08/02 21:31 Body Mass Index 31.19 (104.33 kg, 182.88 cm) bm8 08/02 21:31 Pain Scale: Adult bm8 22:40 Pain Scale: Adult rg5 00:15 Pain Scale: Adult rg5 ED Course: 08/02 21:21 Patient arrived in ED. gm2 21:28 Baldemar Medina PA is PHCP. cp 21:28 Amauri Crowley MD is Attending Physician. cp 21:32 Triage completed. bm8 21:32 Arm band placed on right wrist. bm8 21:35 Markell Rodríguez, SAMANTHA is Primary Nurse. rg5 22:17 Patient has correct armband on for positive identification. Door closed. Noise rg5 minimized. 22:17 No provider procedures requiring assistance completed. Patient did not have IV access rg5 during this emergency room visit. Patient maintains SpO2 saturation greater than 95% on room air. 08/03 00:15 Provided Education on: post er care done. rg5 Administered Medications: 08/02 22:10 Drug: Metoprolol PO 100 mg PO once Route: PO; rg5 22:50 Follow up: Response: No adverse reaction; Blood pressure is lowered rg5 22:10 Drug: Ketorolac IM 30 mg IM once Route: IM; Site: right gluteus; rg5 22:50 Follow up: Response: No adverse reaction; Pain is decreased rg5 22:10 Drug: Dexamethasone IM 10 mg IM once Route: IM; Site: right gluteus; rg5 22:49 Follow up: Response: No adverse reaction; Pain is decreased rg5 22:10 Drug: HYDROcodone-acetaminophen PO 10 mg-325 mg 1 tabs PO once Route: PO; rg5 22:49 Follow up: Response: No adverse reaction; Pain is decreased rg5 23:25 Drug: cloNIDine PO 0.1 mg PO once Route: PO; rg5 23:43 Follow up: Response: No adverse reaction; Blood pressure is unchanged rg5 23:25 Drug: Lisinopril PO 20 mg PO once Route: PO; rg5 23:43 Follow up: Response: No adverse reaction; Blood pressure is unchanged rg5 Medication: 22:17 VIS not applicable for this client. rg5 Outcome: 08/03 00:04 Discharge ordered by . ela 00:15 Discharged to home ambulatory, rg5 00:15 Condition: stable 00:15 Discharge instructions given to patient, Instructed on discharge instructions, follow up and referral plans. Demonstrated understanding of instructions, follow-up care, medications, Prescriptions given X 4, 00:17 Patient left the ED. rg5 Signatures: Baldemar Medina PA PA cp Mitchell, Ginger gm2 Moises Schreiber RN RN bm8 Markell Rodríguez RN RN rg5 Corrections: (The following items were deleted from the chart) 00:16 00:02 BP 180 / 125; Pulse 76bpm; Resp 18bpm; Pulse Ox 95% RA; rg5 rg5
--- NOTE | 2024-08-03 00:06 | EDPHYS ---
Physician Documentation [facility] Name: Ezequiel Padron Age: 39 yrs Sex: Male : 1985 Arrival Date: 08/02/2024 Time: 21:16 Bed 13 Private MD: ED Physician Amauri Crowley HPI: 08/02 21:55 This 39 yrs old Black Male presents to ER via Ambulatory with complaints of Feet cp Swelling, Knee Pain, Swelling of Lower Extremity. 21:55 Patient is a 39-year-old male with past medical history significant for CHF, cp hypertension and gout who presents to the emergency department with complaints of increasing pain to left knee and both feet over the past couple days. Patient reports he is run out of his hypertension medications and his medications for gout. Patient denies any injury and reports she feels this is a gout flare up. Historical: - Allergies: 21:32 Nitroglycerin; bm8 - Home Meds: 21:32 atorvastatin oral [Active]; Lasix Oral [Active]; lisinopril 10 mg Oral tablet [Active]; bm8 metoprolol tartrate 100 mg Oral tablet 2 times per day [Active]; - PMHx: 21:32 Congestive heart failure; Gout; Hypertensive disorder; bm8 - PSHx: 21:32 R femur; bm8 - Immunization history:: Adult Immunizations up to date. - Infectious Disease History:: Denies. - Social history:: Smoking status: Patient reports the use of cigarette tobacco products, smokes one-half pack cigarettes per day, Patient uses alcohol, occasionally. ROS: 22:00 Constitutional: Negative for body aches, chills, fever, poor PO intake, cp 22:00 Eyes: Negative for injury, pain, redness, and discharge, cp 22:00 ENT: Negative for drainage from ear(s), ear pain, sore throat, difficulty swallowing, difficulty handling secretions, 22:00 Cardiovascular: Negative for chest pain, palpitations, 22:00 Respiratory: Negative for cough, shortness of breath, wheezing, 22:00 Abdomen/GI: Negative for abdominal pain, vomiting, diarrhea, constipation, 22:00 MS/extremity: Positive for pain, swelling, tenderness, of the left foot and right foot and left knee, Negative for injury or acute deformity, 22:00 All other systems are negative, Exam: 22:05 Constitutional: The patient appears in no acute distress, alert, awake, cp non-diaphoretic, non-toxic, well developed, well nourished, uncomfortable, 22:05 Head/Face: Normocephalic, atraumatic. cp 22:05 Eyes: Periorbital structures: appear normal, Conjunctiva: normal, no exudate, no injection, Sclera: no appreciated abnormality, Lids and lashes: appear normal, bilaterally, 22:05 ENT: External ear(s): are unremarkable, Nose: is normal, Mouth: Lips: moist, Oral mucosa: moist, Posterior pharynx: Airway: no evidence of obstruction, patent, 22:05 Chest/axilla: Inspection: normal, 22:05 Cardiovascular: Rate: tachycardic, Rhythm: regular, Edema: is not appreciated, 22:05 Respiratory: the patient does not display signs of respiratory distress, Respirations: normal, no use of accessory muscles, no retractions, labored breathing, is not present, Breath sounds: are clear throughout, no decreased breath sounds, no stridor, no wheezing, 22:05 Abdomen/GI: Inspection: abdomen appears normal, Palpation: abdomen is soft and non-tender, in all quadrants, 22:05 Musculoskeletal/extremity: Extremities: noted in the left foot and right foot: tenderness, mild swelling, Joints: the left knee displays painful range of motion, swelling, tenderness, 22:05 Neuro: Orientation: to person, place \T\ time. Mentation: is normal, Motor: moves all fours, strength is normal, Sensation: no obvious gross deficits, Vital Signs: 21:31 BP 182 / 132; Pulse 104; Resp 18; Temp 98.4; Pulse Ox 100% ; Weight 104.33 kg; Height 6 bm8 ft. 0 in. ; Pain 10/10; 22:40 BP 173 / 111; Pulse 99; Resp 18; Pulse Ox 99% on R/A; Pain 0/10; rg5 23:10 BP 188 / 128; Pulse 77; Pulse Ox 98% ; rg5 23:44 BP 188 / 122; Pulse 79; Resp 18; Pulse Ox 96% on R/A; rg5 08/03 00:00 BP 170 / 95; Pulse 76; Resp 18; Pulse Ox 95% on R/A; rg5 00:15 BP 161 / 93; Pulse 77; Resp 17; Pulse Ox 96% on R/A; Pain 0/10; rg5 08/02 21:31 Body Mass Index 31.19 (104.33 kg, 182.88 cm) bm8 08/02 21:31 Pain Scale: Adult bm8 22:40 Pain Scale: Adult rg5 00:15 Pain Scale: Adult rg5 MDM: 08/02 21:28 Medical Screening Exam initiated cp 22:00 Differential diagnosis: fracture, cellulitis, dvt, septic joint, cellulitis. 08/03 00:04 Data reviewed: vital signs, nurses notes, and as a result, I will discharge patient. 00:04 I considered the following discharge prescriptions or medication management in the emergency department Medications were administered in the Emergency Department. See MAR. Care significantly affected by the following chronic conditions: Hypertension, Congestive Heart Failure. Counseling: I had a detailed discussion with the patient and/or guardian regarding the historical points, exam findings, and any diagnostic results supporting the discharge/admit diagnosis, to return to the emergency department if symptoms worsen or persist or if there are any questions or concerns that arise at home. Response to treatment: the patient's symptoms have markedly improved after treatment, and as a result, I will discharge patient. 08/03 00:04 Order name: Blood Pressure Recheck: and discharge; Complete Time: 00:04 Administered Medications: 08/02 22:10 Drug: Metoprolol PO 100 mg PO once Route: PO; rg5 22:50 Follow up: Response: No adverse reaction; Blood pressure is lowered rg5 22:10 Drug: Ketorolac IM 30 mg IM once Route: IM; Site: right gluteus; rg5 22:50 Follow up: Response: No adverse reaction; Pain is decreased rg5 22:10 Drug: Dexamethasone IM 10 mg IM once Route: IM; Site: right gluteus; rg5 22:49 Follow up: Response: No adverse reaction; Pain is decreased rg5 22:10 Drug: HYDROcodone-acetaminophen PO 10 mg-325 mg 1 tabs PO once Route: PO; rg5 22:49 Follow up: Response: No adverse reaction; Pain is decreased rg5 23:25 Drug: cloNIDine PO 0.1 mg PO once Route: PO; rg5 23:43 Follow up: Response: No adverse reaction; Blood pressure is unchanged rg5 23:25 Drug: Lisinopril PO 20 mg PO once Route: PO; rg5 23:43 Follow up: Response: No adverse reaction; Blood pressure is unchanged rg5 Disposition Summary: 08/03/24 00:04 Discharge Ordered Notes: Location: Home cp Problem: an acute exacerbation cp Symptoms: have improved cp Condition: Stable cp Diagnosis - Hypertensive heart disease with heart failure cp - Pain in left knee cp - Pain in foot and toes cp - Patient's other noncompliance with medication regimen cp Followup: cp - With: Private Physician - When: 2 - 3 days - Reason: Recheck today's complaints Discharge Instructions: - Discharge Summary Sheet cp - Joint Pain cp - Gout cp - Hypertension, Adult cp - Form - Return To Work rg5 Forms: - Medication Reconciliation Form cp - Antibiotic Education cp - Prescription Opioid Use cp - Patient Portal Instructions cp - Leadership Thank You Letter cp - Work release form lg3 Prescriptions: - Celebrex 200 mg Oral Capsule - take 1 capsule ORAL route once daily As needed take with food; 20 capsule; cp Refills: 0, Product Selection Permitted - Lisinopril 10 mg Oral Tablet - take 1 tablet ORAL route once daily; 20 tablet; Refills: 0, Product Selection cp Permitted - Metoprolol Tartrate 100 mg Oral Tablet - take 1 tablet ORAL route 2 times per day with a meal; 20 tablet; Refills: 0, cp Product Selection Permitted - Medrol ([place]) 4 mg Oral Tablets, Dose Pack - take 1 tablet ORAL route as directed - follow package instructions; 1 packet; cp Refills: 0, Product Selection Permitted Addendum: 08/04/2024 19:57 Co-signature as Attending Physician, Amauri Crowley MD I agree with the assessment s p4 and plan of care. I reviewed the patient's care provided by the Advanced Practice Provider and agree with the diagnosis and treatment plan. Signatures: Baldemar Medina PA PA cp Potepalov, Sergey, MD MD sp4 Moises Schreiber RN RN bm8 Markell Rodríguez RN RN rg5
[2024-08-03 00:34] VITALS: TEMP 98.4
[2024-08-03 00:43] VITALS: BP 161/93; O2SAT 96
== END 2024-08-03 00:17 | disposition home or self-care (01) ==
LOC: ER 21:16
DX: I11.0 Hypertensive heart disease with heart failure (principal); M25.562 Pain in left knee; M79.672 Pain in left foot; M79.675 Pain in left toe(s); Z91.148 Patient's other noncompliance with medication regimen for other reason; I10 Essential (primary) hypertension; I50.9 Heart failure, unspecified; F17.210 Nicotine dependence, cigarettes, uncomplicated
CPT/HCPCS: 96372; 99284; J1100

== ENCOUNTER 2024-08-17 08:27 | Emergency (ER) | payer OTHER ==
--- OUTSIDE RECORDS SUMMARY | 2024-08-17 08:32 | XMS REPORT | Continuity of Care Document ---
Author Name Unknown Address [address] [place] [address] Organization [facility] Address [address] [place] [address] Care Team Providers Care Placement Specialist Name Role Phone Pcp, Patient Does Not Have A Primary Care Physic pat Doctor Unassigned, [place] Attending Clinician U jose e Figueroa, Generic Provider Attending Clinician Unavailable MIGDALIA VILLEGAS Attending Clinician Unavailable MIGDALIA VILLEGAS Attending Clinician Unavailable Migdalia Driver Attending Clinician [phone] Cipriano FREDERICK, Basim Sanz Attending Clinician + Tameka Garcia Attending Clinician [phone] Tameka NOVOA Attending Clinician Unavailable Doctor Unassigned, [place] Attending Clinician U Sherrell Erazo RN Attending Clinician Unavailable DIMITRIOS ABEL Attending Clinician UnavailDimitrios Kearney MD Attending Clinician [phone] DIMITRIOS ABEL Admitting Clinician UnavailDimitrios Kearney MD Admitting Clinician [phone] Payers Payer Name Policy Type Policy Number Effective Date Expirati on Date Source Problems Condition Name Condition Details Condition Category Status Onset Date Resolution Date Last Treatment Date Treating Clinician Comments Source SOB (shortness of breath) SOB (shortness of breath) Disease Active 4-14 00:00: 00 [facility] Obesity (BMI 30-39.9) Obesity (BMI 30-39.9) Disease Active 7-21 00:00: 00 [facility] Allergies, Adverse Reactions, Alerts Allergy Name Allergy Type Status Severity Reaction(s) Onset Date Inactive Date Treating Clinician Comments Source MORPHINE DRUG INGREDI Active Unknown-Cmnt 12-06 00:00: 00 [facility] Morphine Propensi ty to adverse reaction s Active Unknown - See comments 12-06 00:00: 00 Patient does not know reaction [facility] NO KNOWN ALLERGIE S Drug Class Active [facility] Social History Social Habit Start Date Stop Date Quantity Comments Source History SDOH Alcohol Std Drinks [facility] History SDOH Alcohol Binge [facility] SD[facility] Alcohol Frequency [facility] History of Social function 2024-06-01 00:00:00 2024-06-01 00:00:00 [facility] Exposure to SARS-CoV-2 (event) 2021-11-26 00:00:00 2021-12-06 12:55:00 Not sure [facility] Alcohol intake 2021-12-06 00:00:00 2021-12-06 00:00:00 Current drinker of alcohol (finding) [facility] Alcohol Comment 2016-11-22 00:00:00 2016-11-22 00:00:00 Daily [facility] Alcoholic beverage intake 2016-11-22 00:00:00 2016-11-22 00:00:00 Current drinker of alcohol (finding) [facility] Tobacco use and exposure 2016-11-22 00:00:00 2016-11-22 00:00:00 Smokeless tobacco non-user [facility] Sex assigned at 1985 00:00:00 1985 00:00:00 [facility] Smoking Status Start Date Stop Date Source Never smoked tobacco [facility] Medications Ordered Medication Name Filled Medication Name Start Date Stop Date Current Medication? Ordering Clinician Indication Dosage Frequency Signature (SIG) Comments Components Source cloNIDine (CATAPRES) tablet 0.1 mg 06-02 04:45: 00 06-02 05:17 :00 No .1mg 0.1 mg, Oral, ONCE, 1 dose, On Sat06/01/24 at 2245, STAT [facility] HYDROcodone -acetaminop hen (NORCO 5) tablet 1 tablet 06-02 04:45: 00 06-02 05:17 :00 No 1{tbl} 1 tablet, Oral, ONCE, 1 dose, On Sat06/01/24 at 2245, [facility] methylpredn isolone sod succ (SOLU-MEDRO L) injection 125 mg 06-02 04:40: 00 06-02 05:18 :00 No 125mg 125 mg, Intramuscu lar, ONCE NOW, 1 dose, On Sat06/01/24 at 2245, [facility] acetaminoph en-codeine 300-30 mg tablet 06-02 00:00: 00 06-10 05:59 :00 Yes [id number] 1{tbl} Take 1 tablet by mouth every 8 (eight) hours as needed for Pain (scale 4-6) for up to 7 days. Indication s: acute pain [facility] lisinopriL (PRINIVIL,Z ESTRIL) tablet 20 mg 12-07 14:00: 00 Yes 20mg 20 mg, Oral, DAILY, First dose on Viktoriya 12/07/21 at 0900, Until Discontinu ed, Routine [facility] HYDROcodone -acetaminop hen (NORCO) 10-325 mg tablet 1 tablet 12-06 17:15: 00 12-06 16:12 :00 No 1{tbl} 1 tablet, Oral, ONCE, 1 dose, On Sat12/06/21 at 1215, [facility] carvediloL (COREG) tablet 25 mg 12-06 17:15: 00 12-06 16:12 :00 No 25mg 25 mg, Oral, ONCE, 1 dose, On Sat12/06/21 at 1215, Routine [facility] methylpredn isolone sod succ (SOLU-MEDRO L) injection 125 mg 12-06 16:45: 00 12-06 16:09 :00 No 125mg 125 mg, Intramuscu lar, ONCE, 1 dose, On Sat12/06/21 at 1145, REGINA [facility] predniSONE 20 mg tablet 12-06 00:00: 00 Yes [id number] 1 PO BID x 4 days [facility] acetaminoph en-codeine 300-30 mg tablet 12-06 00:00: 00 Yes [id number] 1{tbl} Take 1 tablet by mouth every 4 (four) hours as needed for Pain (scale 4-6). Indication s: acute pain [facility] aspirin 81 mg chewable tablet 09-14 00:00: 00 Yes [id number] 81mg Take 1 tablet by mouth daily. [facility] atorvastati n 40 mg tablet 09-14 00:00: 00 Yes [id number] 40mg Take 1 tablet by mouth at bedtime. [facility] carvediloL 25 mg tablet 09-14 00:00: 00 Yes [id number] 37.5mg Take 1.5 tablets by mouth 2 (two) times daily with meals. [facility] furosemide 40 mg tablet 09-14 00:00: 00 Yes [id number] 40mg Take 1 tablet by mouth every morning and evening. [facility] lisinopriL 10 mg tablet 09-14 00:00: 00 Yes [id number] 30mg Take 3 tablets by mouth daily. [facility] spironolact one 25 mg tablet 09-14 00:00: 00 Yes [id number] 25mg Take 1 tablet by mouth daily. [facility] aspirin 81 mg chewable tablet -19 00:00: 00 09-14 00:00 :00 No [id number] 81mg Take 1 tablet by mouth daily for 180 days. [facility] lisinopriL 10 mg tablet 08-22 00:00: 00 09-14 00:00 :00 No [id number] 30mg Take 3 tablets by mouth daily for 180 days. [facility] spironolact one 25 mg tablet 08-22 00:00: 00 09-14 00:00 :00 No [id number] 25mg Take 1 tablet by mouth daily for 180 days. [facility] carvediloL (COREG) tablet 37.5 mg 08-21 22:00: 00 Yes 37.5mg 37.5 mg, Oral, BID MEALS, First dose (after last modificati on) on Sat08/21/21 at 1700, Until Discontinu ed, Routine [facility] lisinopriL (PRINIVIL,Z ESTRIL) tablet 30 mg 08-21 14:00: 00 Yes 30mg 30 mg, Oral, DAILY, First dose (after last modificati on) on Sat08/21/21 at 0900, Until Discontinu ed, Routine [facility] magnesium oxide (MAG-OX 400) tablet 400 mg 08-21 13:45: 00 08-21 13:20 :00 No 400mg 400 mg, Oral, ONCE, 1 dose, On Sat08/21/21 at 0845, Routine [facility] amLODIPine 10 mg tablet 08-21 11:33: 41 08-21 00:00 :00 No 10mg Take 10 mg by mouth daily. [facility] hydroCHLORO thiazide 25 mg tablet 08-21 11:33: 41 08-21 00:00 :00 No 25mg Take 25 mg by mouth daily. [facility] ibuprofen 800 mg tablet 08-21 11:33: 41 08-21 00:00 :00 No 800mg Take 800 mg by mouth 2 (two) times daily. [facility] hydrALAZINE (APRESOLINE ) tablet 10 mg 08-21 07:00: 00 08-21 06:05 :00 No 10mg 10 mg, Oral, ONCE, 1 dose, On Sat08/21/21 at 0200, Routine [facility] atorvastati n 40 mg tablet 08-21 00:00: 00 09-14 00:00 :00 No [id number] 40mg Take 1 tablet by mouth at bedtime for 180 days. [facility] furosemide 40 mg tablet 08-21 00:00: 00 09-14 00:00 :00 No [id number] 40mg Take 1 tablet by mouth every morning and evening for 180 days. [facility] carvediloL 25 mg tablet 08-21 00:00: 00 09-14 00:00 :00 No [id number] 37.5mg Take 1.5 tablets by mouth 2 (two) times daily with meals for 180 days. [facility] carvediloL 25 mg tablet 08-21 00:00: 00 08-21 00:00 :00 No [id number] 25mg Take 1 tablet by mouth 2 (two) times daily with meals for 180 days. [facility] furosemide (LASIX) tablet 40 mg 08-20 14:00: 00 Yes 40mg 40 mg, Oral, QAM+PM, First dose (after last modificati on) on Sat08/20/21 at 0900, Until Discontinu ed, Routine [facility] lisinopriL (PRINIVIL,Z ESTRIL) tablet 20 mg 08-20 14:00: 00 08-21 11:42 :47 No 20mg 20 mg, Oral, DAILY, First dose (after last modificati on) on Sat08/20/21 at 0900, Until Discontinu ed, Routine [facility] carvediloL (COREG) tablet 25 mg 08-20 13:00: 00 08-21 17:46 :56 No 25mg 25 mg, Oral, BID MEALS, First dose (after last modificati on) on 08/20/21 at 0800, Until Discontinu ed, Routine [facility] lisinopriL (PRINIVIL,Z ESTRIL) tablet 5 mg 08-19 15:00: 00 08-19 14:30 :00 No 5mg 5 mg, Oral, ONCE, 1 dose, On Sat08/19/21 at 1000, Routine [facility] carvediloL (COREG) tablet 12.5 mg 08-19 13:00: 00 08-19 22:39 :41 No 12.5mg 12.5 mg, Oral, BID MEALS, First dose (after last modificati on) on Sat08/19/21 at 0800, Until Discontinu ed, Routine [facility] furosemide (LASIX) injection 40 mg 08-19 01:00: 00 08-19 17:31 :11 No 40mg 40 mg, Slow IV Push, Q12H, First dose on Sat08/18/21 at 2000, Until Discontinu ed, Routine [facility] hydrALAZINE (APRESOLINE ) tablet 25 mg 08-18 21:47: 07 Yes 25mg 25 mg, Oral, Q6HPRN, Starting on Sat08/18/21 at 1647, Until Discontinu ed, Routine, SBP >180 [facility] lisinopriL (PRINIVIL,Z ESTRIL) tablet 10 mg 08-18 18:15: 00 08-18 18:14 :00 No 10mg 10 mg, Oral, DAILY, 1 dose, First dose on Sat08/18/21 at 1315, Routine [facility] lisinopriL (PRINIVIL,Z ESTRIL) tablet 10 mg 08-18 16:00: 00 08-19 13:47 :35 No 10mg 10 mg, Oral, DAILY, First dose on Sat08/18/21 at 1100, Until Discontinu ed, Routine [facility] spironolact one (ALDACTONE) tablet 25 mg 08-18 14:00: 00 Yes 25mg 25 mg, Oral, DAILY, First dose on Sat08/18/21 at 0900, Until Discontinu ed, Routine [facility] aspirin chewable tablet 81 mg 08-18 14:00: 00 Yes 81mg 81 mg, Oral, DAILY, First dose on Sat08/18/21 at 0900, Until Discontinu ed, Routine [facility] furosemide (LASIX) tablet 40 mg 08-18 14:00: 00 08-18 16:18 :32 No 40mg 40 mg, Oral, QAM+PM, First dose on Sat08/18/21 at 0900, Until Discontinu ed, Routine [facility] amLODIPine (NORVASC) tablet 10 mg 08-18 12:00: 00 08-18 11:05 :00 No 10mg 10 mg, Oral, ONCE, 1 dose, On Sat08/18/21 at 0700, Routine [facility] atorvastati n (LIPITOR) tablet 40 mg 08-18 02:00: 00 Yes 40mg 40 mg, Oral, QHS, First dose on Sat08/17/21 at 2100, Until Discontinu ed, Routine [facility] heparin (porcine) injection 5,000 Units 08-18 01:00: 00 Yes 5000U 5,000 Units, Subcutaneo us, Q12H, First dose on Sat08/17/21 at 2000, Until Discontinu ed, Routine [facility] hydrALAZINE (APRESOLINE ) tablet 10 mg 08-17 22:45: 00 08-17 23:51 :00 No 10mg 10 mg, Oral, ONCE, 1 dose, On Sat08/17/21 at 1745, Routine [facility] hydrALAZINE (APRESOLINE ) tablet 10 mg 08-17 21:45: 54 08-18 21:47 :24 No 10mg 10 mg, Oral, Q6HPRN, Starting on Sat08/17/21 at 1645, Until Sat08/18/21 at 1647, Routine, SBP >180 [facility] sulfur hexafluorid e microsphr (LUMASON) injection 5 mL 08-17 20:45: 00 08-17 20:45 :00 No [id number] 5mL 5 mL, Intravenou s, ONCE, 1 dose, On Sat08/17/21 at 1545, Routine
manager membership approving Restricted medication : DEZ QIU [facility] magnesium sulfate in water 4 gram/50 mL (8 %) IV Piggyback 4 g 08-17 18:15: 00 08-17 18:29 :00 No 4g 4 g, IV Piggyback, ONCE, 1 dose, On Viktoriya 08/17/21 at 1315, Routine [facility] KCL (KLOR-CON M20) tablet 40 mEq 08-17 18:15: 00 08-17 18:10 :00 No 40meq 40 mEq, Oral, ONCE, 1 dose, On Viktoriya 08/17/21 at 1315, Routine [facility] furosemide (LASIX) injection 40 mg 08-17 17:15: 00 08-18 12:42 :25 No 40mg 40 mg, Slow IV Push, Q12H, First dose on Viktoriya 08/17/21 at 1215, Until Discontinu ed, Routine [facility] acetaminoph en (TYLENOL) tablet 650 mg 08-17 14:09: 58 Yes 650mg 650 mg, Oral, Q6HPRN, Starting on Sat08/17/21 at 0909, Until Discontinu ed, Routine, Pain (scale 1-3) [facility] amLODIPine 10 mg tablet 08-17 09:16: 15 Yes 10mg Take 10 mg by mouth daily. [facility] hydroCHLORO thiazide 25 mg tablet 08-17 09:16: 15 Yes 25mg Take 25 mg by mouth daily. [facility] ibuprofen 800 mg tablet 08-17 09:16: 15 Yes 800mg Take 800 mg by mouth 2 (two) times daily. [facility] Vital Signs Vital Name Observation Time Observation Value Comments S qi Systolic blood pressure 2024-06-02 06:00:00 183 mm[Hg] [facility] Diastolic blood pressure 2024-06-02 06:00:00 132 mm[Hg] [facility] Heart rate 2024-06-02 05:18:00 82 /min [facility] Body temperature 2024-06-02 05:18:00 37 Anastasiia [facility] Respiratory rate 2024-06-02 05:18:00 20 /min [facility] Oxygen saturation in Arterial blood by Pulse oximetry 2024-06-02 05:18:00 100 /min [facility] Body height 2024-06-02 03:39:00 182.9 cm [facility] Body weight 2024-06-02 03:39:00 102.377 kg [facility] BMI 2024-06-02 03:39:00 30.61 kg/m2 [facility] Systolic blood pressure 2021-12-06 17:40:07 158 mm[Hg] [facility] Diastolic blood pressure 2021-12-06 17:40:07 105 mm[Hg] [facility] Heart rate 2021-12-06 15:43:00 91 /min [facility] Respiratory rate 2021-12-06 15:43:00 20 /min [facility] Oxygen saturation in Arterial blood by Pulse oximetry 2021-12-06 15:43:00 97 /min [facility] Body temperature 2021-12-06 14:49:00 36.61 Anastasiia [facility] Body height 2021-12-06 14:49:00 182.9 cm [facility] Body weight 2021-12-06 14:49:00 99.791 kg [facility] BMI 2021-12-06 14:49:00 29.84 kg/m2 [facility] Systolic blood pressure 2021-08-21 20:39:00 143 mm[Hg] [facility] Diastolic blood pressure 2021-08-21 20:39:00 104 mm[Hg] [facility] Heart rate 2021-08-21 20:39:00 79 /min [facility] Body temperature 2021-08-21 20:39:00 36 Anastasiia [facility] Respiratory rate 2021-08-21 20:39:00 18 /min [facility] Oxygen saturation in Arterial blood by Pulse oximetry 2021-08-21 20:39:00 99 /min [place] [facility] Body weight 2021-08-21 10:57:00 104.055 kg [facility] BMI 2021-08-21 10:57:00 31.11 kg/m2 [facility] Body height 2021-08-18 10:31:00 182.9 cm [facility] Procedures Procedure Date / Time Performed Performing Clinician Source NOTICE OF PRIVACY PRACTICES 2021-12-06 14:38:21 Doctor Unassigned, [place] [facility] CONSENT/REFUSAL FOR DIAGNOSIS AND TREATMENT 2021-12-06 14:38:03 Doctor Unassigned, [place] [facility] AUTHORIZATION FOR RELEASE OF PHI 2021-09-01 05:01:00 Doctor Unassigned, [place] [facility] MAGNESIUM 2021-08-21 08:42:00 Eryn Cowart [facility] BASIC METABOLIC PANEL (NA, K, CL, CO2, GLUCOSE, BUN, CREATININE, CA) 2021-08-21 08:42:[address] [facility] N-TERMINAL PRO-BNP 2021-08-21 08:42:00 Gaston Elizabeth [facility] HB ECG ROUTINE & RHYTHM STRIP 2021-08-20 13:02[facility] 2021-08-20 09:22:00 Letty March [facility] BASIC METABOLIC PANEL (NA, K, CL, CO2, GLUCOSE, BUN, CREATININE, CA) 2021-08-20 09:22:[facility] 2021-08-20 09:22:00 Letty March [facility] HB ECG ROUTINE & RHYTHM STRIP 2021-08-19 13:08:08 [facility] 2021-08-19 10:21:00 Gaston Elizabeth [facility] BASIC METABOLIC PANEL (NA, K, CL, CO2, GLUCOSE, BUN, CREATININE, CA) 2021-08-19 10:21:00 Gaston Elizabeth [facility] BASIC METABOLIC PANEL (NA, K, CL, CO2, GLUCOSE, BUN, CREATININE, CA) 2021-08-18 19:41:[address] [facility] HB ECG ROUTINE & RHYTHM STRIP 2021-08-18 14:50:[address] [facility] MAGNESIUM 2021-08-18 09:10:[facility]OL[facility] (NA, K, CL, CO2, GLUCOSE, BUN, CREATININE, CA) 2021-08-18 09:10:[address] [facility] CBC WITH DIFF 2021-08-18 09:10:00 Supa [facility] TROPONIN I 2021-08-17 23:58:00 Supa [facility] TRANSTHORACIC ECHO (TTE) COMPLETE W/ CONTRAST 2021-08-17 18:53:[address] [facility] PHOSPHORUS 2021-08-17 15:43:00 [facility] 2021-08-17 15:43:00 Sup[facility] FERRITIN SERUM 2021-08-17 15:43:00 Eryn Cowart [facility] TROPONIN I 2021-08-17 15:43:00 Supa [facility] THYROID STIMULATING HORMONE 2021-08-17 15:43:[address] [facility] HEPATIC FUNCTION PANEL (19583) (ALB,T.PRO,BILI T,BU/BC,ALT,AST,ALK PHOS) 2021-08-17 15:43:[address] [facility] BASIC METABOLIC PANEL (NA, K, CL, CO2, GLUCOSE, BUN, CREATININE, CA) 2021-08-17 15:43:[address] [facility] IRON PANEL 2021-08-17 15:43:00 Supa [facility] CBC WITH DIFF 2021-08-17 15:43:00 Supa [facility] GLYCOSYLATED HEMOGLOBIN (A1C) 2021-08-17 15:43:00 Eryn Cowart [facility] N-TERMINAL PRO-BNP 2021-08-17 15:43:00 Eryn Cowart [facility] XR CHEST 1 VW 2021-08-17 15:10:00 Eryn Cowart [facility] EXTERNAL PROVIDER RECORDS 2016-11-23 05:01:00 Doctor Unassigned, [place] [facility] DAY SURGERY - ADC 2016-11-23 05:01:00 Doctor Ivonne ssigned, [place] [facility] Encounters Start Date/Time End Date/Time Encounter Type Admission Type Attending Clinicians Care Facility Care Department Encounter ID Source 2024-08-03 13:47:27 2024-08-03 13:47:27 Outpatient [facility] [id number] Gucci Philippe Bairon 2016-11-23 00:00:00 2024-06-20 03:42:57 Orders Only Doctor Unassigned, [place] Doctor Unassigned, [place] [facility] [id number] 350.1.13.10 4.2.7.2.686 [id number] [facility] 2024-06-10 00:00:00 2024-06-10 11:09:01 Letter (Out) Campaigns, Generic Provider Campaigns, Generic Provider [facility] ([facility] 1.2.840.114 350.1.13.10 4.2.7.2.686 [id number] [facility] 2024-06-01 21:44:00 2024-06-02 00:17:00 Emergency X MIGDALIA VILLEGAS SHINTA [facility] ERT [id number] [facility] 2024-06-01 21:44:00 2024-06-02 00:17:00 Emergency Migdalia Villegas [facility] [id number] 350.1.13.10 4.2.7.2.686 [id number] [facility] 2024-03-30 10:06:11 2024-03-30 10:06:11 Outpatient [facility] [id number] Gucci Waddell 2022-08-17 00:00:00 2022-08-17 00:00:00 [facility]114 350.1.13.10 4.2.7.2.686 [id number] [facility] 2021-12-06 09:51:00 2021-12-06 13:09:00 Emergency Tameka Novoa [facility] 1..114 350.1.13.10 4.2.7.2.686 [id number] [facility] 2021-12-06 09:51:00 2021-12-06 13:09:00 Emergency X Tameka NOVOA [facility] ERT [id number] [facility] 2021-12-06 00:00:00 2021-12-06 00:00:00 Orders Only Doctor Unassigned, [place] [facility] 1..114 350.1.13.10 4.2.7.2.686 [id number] [facility] 2021-09-14 00:00:00 2021-09-14 00:00:00 [facility]..114 350.1.13.10 4.2.7.2.686 [id number] [facility] 2021-09-12 00:00:00 2021-09-12 00:00:00 Telephone Basim Cota [facility] 1..114 350.1.13.10 4.2.7.2.686 [id number] [facility] 2021-09-01 00:00:00 2021-09-01 00:00:00 Telephone Khalife, [facility] 1.2840.114 350.1.13.10 4.2.7.2.686 [id number] [facility] 2021-09-01 00:00:00 2021-09-01 00:00:00 Orders Only Doctor Unassigned, [place] [facility] 1.2840.114 350.1.13.10 4.2.7.2.686 [id number] [facility] 2021-08-30 00:00:00 2021-08-30 00:00:00 [facility] 1.840.114 350.1.13.10 4.2.7.2.686 [id number] [facility] 2021-08-22 00:00:00 2021-08-22 00:00:00 Transition of Care Sherrell Neumann 1.840.114 350.1.13.10 4.2.7.2.686 [id number] [facility] 2021-08-17 08:35:00 2021-08-21 17:42:00 Inpatient U DIMITRIOS ABEL [facility] [id number] [facility] 2021-08-17 08:35:00 2021-08-21 17:42:00 Hospital Encounter Basim Cota SanzDimitrios Douglass [facility] 1.840.114 350.1.13.10 4.2.7.2.686 [id number] [facility] 2021-08-18 00:00:00 2021-08-18 00:00:00 Telephone Dimitrios Abel [facility] 1.2840.114 350.1.13.10 4.2.7.2.686 [id number] [facility] Results Test Description Test Time Test Comments Results Result Co mments Source [facility] METABOLIC PANEL (NA, K, CL, CO2, GLUCOSE, BUN, CREATININE, CA)2021-08-21 10:07:34* Test Item Value Reference Range Interpretation Comme nts NA (test code = 1385293905) 135 mmol/L 135-145 K (test code = 6109386782) 4.4 mmol/L 3.5-5.0 CL (test code = 4496431959) 102 mmol/L 98-108 CO2 TOTAL (test code = 4041102546) 26 mmol/L 23-31 AGAP (test code = 2766924559) 2-16 BUN (test code = 8533433073) 27 mg/dL 7-23 H GLUCOSE (test code = 0149761942) 104 mg/dL 70-110 CREATININE (test code = 6872607395) 1.49 mg/dL 0.60-1.25 H CALCIUM (test code = 0058726137) 9.0 mg/dL 8.6-10.6 eGFR (test code = 5171251997) mL/min/1.73m2 EBEN (test code = EBEN) Association [...] imaging tests). Lab Interpretation (test code = 20811-2) [facility]* Test Item Value Reference Range Interpretation Comme nts MAGNESIUM (test code = 4574865948) 1.9 mg/dL 1.7-2.4 Lab Interpretation (test cod e = 26419-1) [facility] (NA, K, CL, CO2, GLUCOSE, BUN, CREATININE, CA)2021-08-20 10:22:59* Test Item Value Reference Range Interpretation Comme nts NA (test code = 9517650814) 137 mmol/L 135-145 K (test code = 9111126978) 4.4 mmol/L 3.5-5.0 CL (test code = 8868720909) 102 mmol/L 98-108 CO2 TOTAL (test code = 7294555603) 26 mmol/L 23-31 AGAP (test code = 4828744814) 2-16 BUN (test code = 9417928483) 31 mg/dL 7-23 H GLUCOSE (test code = 4600079516) 119 mg/dL 70-110 H CREATININE (test code = 9382748377) 1.56 mg/dL 0.60-1.25 H CALCIUM (test code = 2059226183) 9.1 mg/dL 8.6-10.6 eGFR (test code = 2275948314) mL/min/1.73m2 EBEN (test code = EBEN) Association [...] imaging tests). Lab Interpretation (test code = 61928-3) [facility] [place]2022-04-17 10:22:59* Test Item Value Reference Range Interpretation Comme nts MAGNESIUM (test code = 0713109793) 2.1 mg/dL 1.7-2.4 Lab Interpretation (test cod e = 10953-6) Normal [facility] WITH [id number] 09:42:15* Test Item Value Reference Range Interpretation Comme nts WBC (test code = 6690-2) See_Comment H [Automated [employer] Kin Packs] The system which generated this result transmitted reference range: 4.20 - 10.70 10*3/?L. The reference range was not used to interpret this result as normal/abnormal. RBC (test code = 789-8) See_Comment [Automated Client24] The system which generated this result transmitted [...] 32.8 g/dL 31.2-35.0 RDW-SD (test code = 62548-0) 39.3 fL 38.5-51.6 RDW-CV (test code = 788-0) 12.5 % 12.1-15.4 PLT (test code = 777-3) See_Comment H [Automated messa ge] The system which generated this result transmitted reference range: 150 - 328 10*3/?L. The reference range was not used to interpret this result as normal/abnormal. MPV (test code = 02534-5) 9.3 fL 9.8-13.0 L NRBC/100 WBC (test code = 3651222554) See_Comment [Automated WebVet ssage] The system which generated this result transmitted reference range: 0.0 - 10.0 /100 WBCs. The reference range was not used to interpret this result as normal/abnormal. NRBC x10^3 (test code = 5842356953) <0.01 See_Comment [Automated messa ge] The system which generated this result transmitted reference range: 10*3/?L. The reference range was not used to interpret this result as normal/abnormal. GRAN MAT (NEUT) % (test code = 770-8) 60.5 % IMM GRAN % (test code = 3019805065) 0.30 % LYMPH % (test code = 736-9) 26.7 % MONO % (test code = 5905-5) 8.3 % EOS % (test code = 713-8) 3.4 % BASO % (test code = 706-2) 0.8 % GRAN MAT x10^3(ANC) (test code = 7587890161) 7.17 10*3/uL 1.99-6.95 H IMM GRAN x10^3 (test code = 3047661934) 0.03 10*3/uL 0.00-0.06 LYMPH x10^3 (test code = 731-0) 3.16 10*3/uL 1.09-3.23 MONO x10^3 (test code = 742-7) 0.98 10*3/uL 0.36-1.02 EOS x10^3 (test code = 711-2) 0.40 10*3/uL 0.06-0.53 BASO x10^3 (test code = 704-7) 0.10 10*3/uL 0.01-0.09 H Lab Interpretation (test code = 98057-0) Abnormal [facility] METABOLIC PANEL (NA, K, CL, CO2, GLUCOSE, BUN, CREATININE, CA)2021-08-19 10:52:12* Test Item Value Reference Range Interpretation Comme nts NA (test code = 2960872114) 136 mmol/L 135-145 K (test code = 0990313441) 3.8 mmol/L 3.5-5.0 CL (test code = 1772641528) 100 mmol/L 98-108 CO2 TOTAL (test code = 4586241271) 29 mmol/L 23-31 AGAP (test code = 6664591078) 2-16 BUN (test code = 4591843072) 32 mg/dL 7-23 H GLUCOSE (test code = 7624869669) 115 mg/dL 70-110 H CREATININE (test code = 2488954544) 1.67 mg/dL 0.60-1.25 H CALCIUM (test code = 1340215433) 9.1 mg/dL 8.6-10.6 eGFR (test code = 8139880094) mL/min/1.73m2 EBEN (test code = EBEN) Association [...] imaging tests). Lab Interpretation (test code = 51102-5) [facility] 10:52:12* Test Item Value Reference Range Interpretation Comme nts MAGNESIUM (test code = 7354534293) 1.9 mg/dL 1.7-2.4 Lab Interpretation (test cod e = 59526-0) [facility] (NA, K, CL, CO2, GLUCOSE, BUN, CREATININE, CA)2021-08-18 21:19:06* Test Item Value Reference Range Interpretation Comme nts NA (test code = 8169823572) 135 mmol/L 135-145 K (test code = 7603140626) 3.9 mmol/L 3.5-5.0 CL (test code = 4433009336) 98 mmol/L 98-108 CO2 TOTAL (test code = 5774912464) 30 mmol/L 23-31 AGAP (test code = 5160787402) 2-16 BUN (test code = 5984339629) 29 mg/dL 7-23 H GLUCOSE (test code = 5044831365) 121 mg/dL 70-110 H CREATININE (test code = 2215112605) 1.58 mg/dL 0.60-1.25 H CALCIUM (test code = 0348185702) 8.9 mg/dL 8.6-10.6 eGFR (test code = 9512820661) mL/min/1.73m2 EBEN (test code = EBEN) Association [...] imaging tests). Lab Interpretation (test code = 21003-1) [facility] (NA, K, CL, CO2, GLUCOSE, BUN, CREATININE, CA)2021-08-18 10:04:44* Test Item Value Reference Range Interpretation Comme nts NA (test code = 3369738307) 135 mmol/L 135-145 K (test code = 7671934657) 4.0 mmol/L 3.5-5.0 Slight hemolysis CL (test code = 9213950231) 101 mmol/L 98-108 CO2 TOTAL (test code = 6710517299) 29 mmol/L 23-31 AGAP (test code = 3924344237) 2-16 BUN (test code = 2235452206) 32 mg/dL 7-23 H Slight hemolysis GLUCOSE (test code = 1069693040) 114 mg/dL 70-110 H CREATININE (test code = 3943068412) 1.54 mg/dL 0.60-1.25 H CALCIUM (test code = 4297430247) 8.8 mg/dL 8.6-10.6 eGFR (test code = 5175101980) mL/min/1.73m2 EBEN (test code = EBEN) Association [...] imaging tests). Lab Interpretation (test code = 46267-0) [facility] 10:04:44* Test Item Value Reference Range Interpretation Comme nts MAGNESIUM (test code = 2487616379) 2.2 mg/dL 1.7-2.4 Lab Interpretation (test cod e = 41571-8) Normal [facility] WITH [id number] 09:24:38* Test Item Value Reference Range Interpretation Comme nts WBC (test code = 6690-2) See_Comment [Automated Client24] The system which generated this result transmitted reference range: 4.20 - 10.70 10*3/?L. The reference range was not used to interpret this result as normal/abnormal. RBC (test code = 789-8) See_Comment [Automated [employer]] The system which generated this result transmitted [...] 33.3 g/dL 31.2-35.0 RDW-SD (test code = 85984-6) 39.1 fL 38.5-51.6 RDW-CV (test code = 788-0) 12.6 % 12.1-15.4 PLT (test code = 777-3) See_Comment H [Automated messa ge] The system which generated this result transmitted reference range: 150 - 328 10*3/?L. The reference range was not used to interpret this result as normal/abnormal. MPV (test code = 37998-7) 9.5 fL 9.8-13.0 L NRBC/100 WBC (test code = 6448667501) See_Comment [Automated WebVet ssage] The system which generated this result transmitted reference range: 0.0 - 10.0 /100 WBCs. The reference range was not used to interpret this result as normal/abnormal. NRBC x10^3 (test code = 4566809318) <0.01 See_Comment [Automated messa ge] The system which generated this result transmitted reference range: 10*3/?L. The reference range was not used to interpret this result as normal/abnormal. GRAN MAT (NEUT) % (test code = 770-8) 65.3 % IMM GRAN % (test code = 8929695807) 0.20 % LYMPH % (test code = 736-9) 23.3 % MONO % (test code = 5905-5) 7.0 % EOS % (test code = 713-8) 3.5 % BASO % (test code = 706-2) 0.7 % GRAN MAT x10^3(ANC) (test code = 2258416281) 6.63 10*3/uL 1.99-6.95 IMM GRAN x10^3 (test code = 3700537382) <0.03 0.00-0.06 LYMPH x10^3 (test code = 731-0) 2.36 10*3/uL 1.09-3.23 MONO x10^3 (test code = 742-7) 0.71 10*3/uL 0.36-1.02 EOS x10^3 (test code = 711-2) 0.35 10*3/uL 0.06-0.53 BASO x10^3 (test code = 704-7) 0.07 10*3/uL 0.01-0.09 Lab Interpretation (test code = 82014-4) [facility]A1C)2021-08-18 02:37:07* Test Item Value Reference Range Interpretation Comme nts HGB A1C (test code = 4548-4) 5.8 % 4.0-5.7 H EBEN (test code = EBEN) Reference RangesNormal: <5.7%Prediabetes: 5.7 - 6.4%Diabetes: > 6.5% Lab Interpretation (test code = 79627-8) [facility]and[facility]OP[facility] [id number] 01:03:37* Test Item Value Reference Range Interpretation Comments TROPONIN I (test code = 9012809975) 0.101 ng/mL See_Comment H [Automated message] The [...] of biotin. Lab Interpretation (test code = 73380-7) [facility]2021-08-17 22:14:20* Test Item Value Reference Range Interpretation Comme nts Ao root annulus (test code = 6242463751) 3.3 cm Ao root diam (test code = 0523597895) 3.30 cm Aortic root (test code = 5761570427) 3.3 cm LA size (test code = 2238464822) 3.7 cm LVOT diameter (test code = 6398935234) 2.00 cm LVIDD (test code = 6874633995) 5.90 cm IVS (test code = 6038265902) 1.26 cm Interventricular Septum Diastolic Thickness by 2D (test code = 4665512) 1.26 cm LVPWD (test code = 3751829931) 1.19 cm PW (test code = 0764077430) 1.19 cm 0.6-1.1 EF(Teich) (test code = 5235483018) 46.60 % LVIDS (test code = 5284580533) 4.50 cm FS (test code = 8719807014) 24 % EF - 2D (test code = 11123574) 46.60 % LAV(MOD-sp4) (test code = 4482193220) 65.30 mL MV Peak E Narciso (test code = 7749706788) 126.4 cm/s E wave decelartion time (test code = 3764278257) 0.14 s MV Prop V (test code = 7987298707) 35.00 cm/s LVOT stroke volume (test code = 8561831729) 45.10 cm3 LVOT peak narciso (test code = 5236958776) 90.0 cm/s LVOT mn grad (test code = 8980350034) mmHg AV LVOT peak gradient (test code = 1183133123) mmHg LVOT peak VTI (test code = 5127828732) 14.4 cm LV V1 mean (test code = 7569400366) 63.00 cm/s Aortic valve mean velocity (test code = 3798576173) 76.8 cm/s Ao peak narciso (test code = 3293183953) 125.5 cm/s Ao VTI (test code = 4271396963) 17.0 cm AV area by cont VTI (test code = 9550559951) 2.6 cm2 AV area peak narciso (test code = 1467835204) 2.2 cm2 Ao max PG (test code = 0984950799) 6.30 mm[Hg] AV peak gradient (test code = 5149227508) mmHg AV valve area (test code = 1549088014) 2.60 cm2 AV mean gradient (test code = 5181378669) mmHg TR Peak Narciso (test code = 2888356611) 119.4 cm/s Triscuspid Valve Regurgitation Peak Gradient (test code = 0846572126) mmHg Tapse (test code = 2223316620) 1.95 cm LA volume (BP) (test code = 8405289463) 73.5 mL LAV(MOD-sp2) (test code = 2294481891) 74.00 mL LA Volume Index (BP) (test code = 5129246547) 32.5 mL/m2 LV Diastolic Volume (BP) (test code = 8172752663) 232.2 mL EF(MOD-bp) (test code = 4427328706) 33.10 % LV Systolic Volume (BP) (test code = 4258870189) 155.2 mL SV(MOD-bp) (test code = 8894952589) 76.90 mL EF (test code = 4956188495) 33 % Left Ventricular Stroke Volume by 2-D Biplane-MOD (test code = 0394734) 76.9 mL Radiology Study observation (narrative) (test code = 12579-1) EBEN (test code = EBEN) ?Left?Ventricle: Left [...] (104.3 kg) 2.3 sq meters 183/126 82 [facility]54840[facility] (ALB,T.PRO,BILI T,BU/BC,ALT,AST,ALK PHOS)2021-08-17 17:59:20* Test Item Value Reference Range Interpretation Comme nts TOTAL BILI (test code = 7740779622) 0.4 mg/dL 0.1-1.1 BILI UNCON (test code = 0499735346) 0.4 mg/dL 0.1-1.1 BILI CONJ (test code = 0585405760) 0.0 mg/dL 0.0-0.3 T PROTEIN (test code = 4694016997) 6.4 g/dL 6.3-8.2 ALBUMIN (test code = 3944759587) 3.7 g/dL 3.5-5.0 ALK PHOS (test code = 0785770543) 64 U/L 34-122 ALTv (test code = 1742-6) 39 U/L 5-50 AST(SGOT) (test code = 5046038707) 30 U/L 13-40 Lab Interpretation (test cod e = 94333-1) [facility]and[facility]ERR[facility]IN [id number] 17:21:19* Test Item Value Reference Range Interpretation Comme nts FERRITIN (test code = 5765351837) 29.7 ng/mL 18.0-464.0 EBEN (test code = EBEN) Biotin has been reported to cause a negative bias, interpret results relative to patient's use of biotin. Lab Interpretation (test code = 27972-8) [facility]andTHYROID STIMULATING [id number] 17:14:24 * Test Item Value Reference Range Interpretation Comme nts TSH (test code = 1876250360) See_Comment [Automated AfterShipa ge] The system which generated this result transmitted reference range: 0.45 - 4.70 mIU/L. The reference range was not used to interpret this result as normal/abnormal. Lab Interpretation (test code = 82722-0) Normal [facility]andN-TERMINAL [id number] 16:55:55* Test Item Value Reference Range Interpretation Comme nts NT-proBNP (test code = 6729957722) 5070 pg/mL See_Comment H [Automated message] The system which generated this result transmitted reference range: <=125. The reference range was not used to interpret this result as normal/abnormal. EBEN (test code = EBEN) Biotin has been reported to cause a negative bias, interpret results relative to patient's use of biotin. Lab Interpretation (test code = 28282-0) Abnormal [facility]andTROPONIN [id number] 16:55:55* Test Item Value Reference Range Interpretation Comments TROPONIN I (test code = 3633402897) 0.117 ng/mL See_Comment H [Automated message] The [...] of biotin. Lab Interpretation (test code = 82504-1) Abnormal [facility]ellandIRON [id number] 16:52:53* Test Item Value Reference Range Interpretation Comme nts IRON (test code = 1279105056) 51 ug/dL 50-160 TIBC (test code = 2823886880) 298 ug/dL 250-410 % FE SAT (test code = 6688618252) 17 % 20-50 L Lab Interpretation (test cod e = 57342-0) [facility]2022-04-14 16:41:35* Test Item Value Reference Range Interpretation Comme nts MAGNESIUM (test code = 9976738126) 1.6 mg/dL 1.7-2.4 L Lab Interpretation (test cod e = 24296-7) Abnormal [facility]andPHOSPHORUS2022-04-14 16:41:35* Test Item Value Reference Range Interpretation Comme nts PHOSPHORUS (test code = 4809665008) 4.0 mg/dL 2.5-5.0 Lab Interpretation (test cod e = 28078-9) [facility] MET[facility]OLIC PANEL (NA, K, CL, CO2, GLUCOSE, BUN, CREATININE, CA)2021-08-17 16:41:35* Test Item Value Reference Range Interpretation Comme nts NA (test code = 6716862187) 134 mmol/L 135-145 L K (test code = 4720337832) 3.6 mmol/L 3.5-5.0 CL (test code = 8146393447) 99 mmol/L 98-108 CO2 TOTAL (test code = 3139576276) 32 mmol/L 23-31 H AGAP (test code = 4940570559) 2-16 BUN (test code = 9535352703) 24 mg/dL 7-23 H GLUCOSE (test code = 8842728304) 111 mg/dL 70-110 H CREATININE (test code = 2543843868) 1.60 mg/dL 0.60-1.25 H CALCIUM (test code = 5329336937) 8.8 mg/dL 8.6-10.6 eGFR (test code = 1243055075) mL/min/1.73m2 EBEN (test code = EBEN) Association [...] imaging tests). Lab Interpretation (test code = 57587-7) Abnormal [facility] WITH [id number] 16:00:05* Test Item Value Reference Range Interpretation [...] 33.7 g/dL 31.2-35.0 RDW-SD (test code = 93028-7) 39.5 fL 38.5-51.6 RDW-CV (test code = 788-0) 12.6 % 12.1-15.4 PLT (test code = 777-3) See_Comment H [Automated messa ge] The system which generated this result transmitted reference range: 150 - 328 10*3/?L. The reference range was not used to interpret this result as normal/abnormal. MPV (test code = 37972-6) 9.4 fL 9.8-13.0 L NRBC/100 WBC (test code = 1402379432) See_Comment [Automated WebVet ssage] The system which generated this result transmitted reference range: 0.0 - 10.0 /100 WBCs. The reference range was not used to interpret this result as normal/abnormal. NRBC x10^3 (test code = 4084063739) <0.01 See_Comment [Automated messa ge] The system which generated this result transmitted reference range: 10*3/?L. The reference range was not used to interpret this result as normal/abnormal. GRAN MAT (NEUT) % (test code = 770-8) 65.6 % IMM GRAN % (test code = 9670702377) 0.20 % LYMPH % (test code = 736-9) 23.8 % MONO % (test code = 5905-5) 6.7 % EOS % (test code = 713-8) 3.2 % BASO % (test code = 706-2) 0.5 % GRAN MAT x10^3(ANC) (test code = 8032949566) 6.58 10*3/uL 1.99-6.95 IMM GRAN x10^3 (test code = 6586386536) <0.03 0.00-0.06 LYMPH x10^3 (test code = 731-0) 2.39 10*3/uL 1.09-3.23 MONO x10^3 (test code = 742-7) 0.67 10*3/uL 0.36-1.02 EOS x10^3 (test code = 711-2) 0.32 10*3/uL 0.06-0.53 BASO x10^3 (test code = 704-7) 0.05 10*3/uL 0.01-0.09 Lab Interpretation (test code = 02119-9) Abnormal [facility] Date/Time Note Provider Source 2024-06-02 00:15:00 [...] steady gait, in no apparent distress, A [facility] 2024-06-01 21:38:46 Patient arrived ambulatory to ED c/o right foot gout pain that started last night. Patient states being d/c from [place] with prescriptions about 30 minutes ago. States normally gets a shot but they didn't give him one this time. Hx of HTN takes BP medications for it. A Ding RN [facility]"
[2024-08-17] MEDS ORDERED: dexAMETHasone 10 MG/ML VIAL ONE (08:50)
[2024-08-17] MEDS ORDERED: HYDROCODONE/APAP 7.5/325 MG TAB ONE (08:50)
[2024-08-17] MEDS ORDERED: KETOROLAC 30 MG/ML INJ ONE (08:50)
--- NOTE | 2024-08-17 10:03 | EDPHYS ---
Physician Documentation [facility] Name: Ezequiel Padron Age: 39 yrs Sex: Male : 1985 Arrival Date: 08/17/2024 Time: 08:27 Bed 4 Private MD: ED Physician Kirby Cortes Historical: - Allergies: 08/17 08:37 Nitroglycerin; ll1 - PMHx: 08:37 Congestive heart failure; Gout; Hypertensive disorder; ll1 - PSHx: 08:37 R femur; ll1 - Immunization history:: Adult Immunizations up to date. - Infectious Disease History:: Denies. - Social history:: Smoking status: Patient reports the use of cigarette tobacco products, denies chronic smoking, but will smoke occasionally. Vital Signs: 08:40 BP 188 / 111; Pulse 77; Resp 15; Temp 97.1(TE); Pulse Ox 99% on R/A; Weight 104.33 kg; ss Height 6 ft. 0 in. ; Pain 10/10; 09:54 BP 154 / 115; Pulse 55; Resp 16; Pulse Ox 97% on R/A; Pain 4/10; iw 08:40 Body Mass Index 31.19 (104.33 kg, 182.88 cm) ss 08:40 Pain Scale: Adult ss 09:54 Pain Scale: Adult iw MDM: 08:41 Medical Screening Exam initiated cp 08/17 09:37 Order name: Blood Pressure Recheck; Complete Time: 09:55 cp Administered Medications: 08:57 Drug: Hydrocodone-Acetaminophen PO (7.5 mg-325 mg) 1 tabs PO once; RASS on ADMIN: iw Combtv4, Very Agttd3, Agttd2, Rstlss1, AlertClm0, Drwsy-1, Lt Sdtn-2, Mod Sdtn-3, Dp Sdtn-4, UnArsble-5 Route: PO; 10:21 Follow up: Response: No adverse reaction; Pain is decreased iw 08:57 Drug: Ketorolac IM 30 mg IM once Route: IM; Site: left deltoid; iw 10:21 Follow up: Response: No adverse reaction; Pain is decreased iw 08:57 Drug: Dexamethasone IM 10 mg IM once Route: IM; Site: left deltoid; iw 10:21 Follow up: Response: No adverse reaction iw Disposition Summary: 08/17/24 10:02 Discharge Ordered Notes: Location: Home cp Problem: chronic cp Symptoms: have improved cp Condition: Stable cp Diagnosis - Pain in foot and toes - right cp - Essential (primary) hypertension cp Followup: cp - With: Private Physician - When: 2 - 3 days - Reason: Recheck today's complaints Discharge Instructions: - Discharge Summary Sheet cp - Gout cp - Hypertension, Adult cp - How to Take Your Blood Pressure, Abcx-dc-Zfcn cp - Managing Your Hypertension cp - Foot Pain cp Forms: - Medication Reconciliation Form cp - Antibiotic Education cp - Prescription Opioid Use cp - Patient Portal Instructions cp - Leadership Thank You Letter cp Prescriptions: - Celebrex 200 mg Oral Capsule - take 1 capsule ORAL route once daily As needed take with food; 20 capsule; cp Refills: 0, Product Selection Permitted - Medrol ([place]) 4 mg Oral Tablets, Dose Pack - take 1 tablet ORAL route as directed - follow package instructions; 1 packet; cp Refills: 0, Product Selection Permitted Signatures: Maxine Cooper RN RN Anny Dutton RN RN ss Baldemar Medina, RAMSES PA cp Tori Xiong RN RN ll1
--- NOTE | 2024-08-17 10:03 | ER ---
Nurse's Notes [facility] Name: Ezequiel Padron Age: 39 yrs Sex: Male : 1985 Arrival Date: 08/17/2024 Time: 08:27 Bed 4 Private MD: Diagnosis: Pain in foot and toes-right;Essential (primary) hypertension Presentation: 08/17 08:40 Chief complaint: Patient states: "gout flare up" to R foot x 2 days. Pt reports he ss comes here often for relief from steroid injection. Coronavirus screen: Client denies travel out of the [place] in the last 14 days. Ebola Screen: Patient denies exposure to infectious person. Patient denies travel to an Ebola-affected area in the 21 days before illness onset. Initial Sepsis Screen: Does the patient meet any 2 criteria? No. Patient's initial sepsis screen is negative. Does the patient have a suspected source of infection? No. Patient's initial sepsis screen is negative. Risk Assessment: Do you want to hurt yourself or someone else? Patient reports no desire to harm self or others. Onset of symptoms was August 15, 2024. 08:40 Method Of Arrival: Ambulatory ss 08:40 Acuity: HERMELINDA 4 ss Historical: - Allergies: 08:37 Nitroglycerin; ll1 - PMHx: 08:37 Congestive heart failure; Gout; Hypertensive disorder; ll1 - PSHx: 08:37 R femur; ll1 - Immunization history:: Adult Immunizations up to date. - Infectious Disease History:: Denies. - Social history:: Smoking status: Patient reports the use of cigarette tobacco products, denies chronic smoking, but will smoke occasionally. Screenin:57 [facility] ED Fall Risk Assessment (Adult) History of falling in the last 3 months, iw including since admission No falls in past 3 months (0 pts) Confusion or Disorientation No (0 pts) Intoxicated or Sedated No (0 pts) Impaired Gait No (0 pts) Mobility Assist Device Used No (0 pt) Altered Elimination No (0 pt) Score/Fall Risk Level 0 - 2 = Low Risk Oriented to surroundings, Educated pt \\T\\ family on fall prevention, incl call for assistance when getting out of bed. Abuse screen: Denies threats or abuse. Denies injuries from another. Nutritional screening: No deficits noted. Tuberculosis screening: No symptoms or risk factors identified. Assessment: 08:57 General: Appears in no apparent distress. Behavior is calm, cooperative. Pain: iw Complains of pain in right foot. Neuro: Level of Consciousness is awake, alert, obeys commands, Oriented to person, place, time, situation, Moves all extremities. Cardiovascular: Patient's skin is warm and dry. Respiratory: Respiratory effort is even, labored. 09:55 Reassessment: Patient appears in no apparent distress at this time. Patient and/or iw family updated on plan of care and expected duration. Pain level reassessed. Patient is alert, oriented x 3, equal unlabored respirations, skin warm/dry/pink. Patient states feeling better. Patient states symptoms have improved. Vital Signs: 08:40 BP 188 / 111; Pulse 77; Resp 15; Temp 97.1(TE); Pulse Ox 99% on R/A; Weight 104.33 kg; ss Height 6 ft. 0 in. ; Pain 10/10; 09:54 BP 154 / 115; Pulse 55; Resp 16; Pulse Ox 97% on R/A; Pain 4/10; iw 08:40 Body Mass Index 31.19 (104.33 kg, 182.88 cm) ss 08:40 Pain Scale: Adult ss 09:54 Pain Scale: Adult iw ED Course: 08:29 Patient arrived in ED. al6 08:37 Arm band placed on Patient placed in an exam room, on a stretcher. ll1 08:40 Provided Education on: pain medication . iw 08:41 Baldemar Medina PA is PHCP. cp 08:41 Kirby Cortes MD is Attending Physician. cp 08:43 Triage completed. ss 08:47 Maxine Cooper, RN is Primary Nurse. iw 09:33 Patient has correct armband on for positive identification. Bed in low position. iw 10:20 No provider procedures requiring assistance completed. Patient did not have IV access iw during this emergency room visit. Administered Medications: 08:57 Drug: Hydrocodone-Acetaminophen PO (7.5 mg-325 mg) 1 tabs PO once; RASS on ADMIN: iw Combtv4, Very Agttd3, Agttd2, Rstlss1, AlertClm0, Drwsy-1, Lt Sdtn-2, Mod Sdtn-3, Dp Sdtn-4, UnArsble-5 Route: PO; 10:21 Follow up: Response: No adverse reaction; Pain is decreased iw 08:57 Drug: Ketorolac IM 30 mg IM once Route: IM; Site: left deltoid; iw 10:21 Follow up: Response: No adverse reaction; Pain is decreased iw 08:57 Drug: Dexamethasone IM 10 mg IM once Route: IM; Site: left deltoid; iw 10:21 Follow up: Response: No adverse reaction iw Medication: 10:20 VIS not applicable for this client. iw Outcome: 10:02 Discharge ordered by . cp 10:20 Discharged to home ambulatory, iw 10:20 Condition: good 10:20 Discharge instructions given to patient, Instructed on discharge instructions, follow up and referral plans. medication usage, Demonstrated understanding of instructions, follow-up care, medications, Prescriptions given X 2, 10:21 Patient left the ED. iw Signatures: Maxine Cooper, RN RN iw Anny Graff RN RN ss Baldemar Medina PA PA cp Lewis, Lynsay, RN RN ll1 Vane [facility]ford
[2024-08-17 10:26] VITALS: TEMP 97.1
[2024-08-17 10:28] VITALS: BP 154/115; O2SAT 97
== END 2024-08-17 10:21 | disposition home or self-care (01) ==
LOC: ER 08:27
DX: M79.671 Pain in right foot (principal); M79.674 Pain in right toe(s); I10 Essential (primary) hypertension
CPT/HCPCS: 96372; 99284; J1100

== ENCOUNTER 2024-08-27 09:45 | Emergency (ER) | payer OTHER ==
--- OUTSIDE RECORDS SUMMARY | 2024-08-27 09:49 | XMS REPORT | Continuity of Care Document ---
Author Name Unknown Address [address] [facility] [address] [place] [address] Organization [facility] Address [address] [facility] [place] [address] Care Team Providers Care Interrelated Special Education Teacher Name Role Phone Pcp, Patient Does Not Have A Primary Care Physic pat Doctor Unassigned, [place] Attending Clinician U jose e Figueroa, Generic Provider Attending Clinician Unavailable MIGDALIA VILLEGAS Attending Clinician Unavailable MIGDALIA VILLEGAS Attending Clinician Unavailable Migdalia Driver Attending Clinician [phone] Cipriano FREDERICK, Basim Sanz Attending Clinician + Tameka Garcia Attending Clinician [phone] Tameka NOVOA Attending Clinician Unavailable Doctor Unassigned, [place] Attending Clinician U Sherrell Erazo RN Attending Clinician Unavailable DIMITRIOS ABEL Attending Clinician UnavailDimitrios Kearney MD Attending Clinician [phone] DIMITRIOS ABEL Admitting Clinician UnavailDimitrios Kearney MD Admitting Clinician [phone] Payers Payer Name Policy Type Policy Number Effective Date Expirati on Date Source Problems Condition Name Condition Details Condition Category Status Onset Date Resolution Date Last Treatment Date Treating Clinician Comments Source SOB (shortness of breath) SOB (shortness of breath) Disease Active 4-14 00:00: 00 [facility] Obesity (BMI 30-39.9) Obesity (BMI 30-39.9) Disease Active 7-21 00:00: 00 [facility] Allergies, Adverse Reactions, Alerts Allergy Name Allergy Type Status Severity Reaction(s) Onset Date Inactive Date Treating Clinician Comments Source MORPHINE DRUG INGREDI Active Unknown-Cmnt 12-06 00:00: 00 [facility] Morphine Propensi ty to adverse reaction s Active Unknown - See comments 12-06 00:00: 00 Patient does not know reaction [facility] NO KNOWN ALLERGIE S Drug Class Active [facility] Social History Social Habit Start Date Stop Date Quantity Comments Source History SDOH Alcohol Std Drinks [facility] History SDOH Alcohol Binge [facility] Alcohol Frequency [facility] History of Social function 2024-06-01 00:00:00 2024-06-01 00:00:00 [facility] Exposure to SARS-CoV-2 (event) 2021-11-26 00:00:00 2021-12-06 12:55:00 Not sure [facility] Alcohol intake 2021-12-06 00:00:00 2021-12-06 00:00:00 Current drinker of alcohol (finding) [facility] Alcohol Comment 2016-11-22 00:00:00 2016-11-22 00:00:00 Daily [facility] Alcoholic beverage intake 2016-11-22 00:00:00 2016-11-22 00:00:00 Current drinker of alcohol (finding) [facility] Tobacco use and exposure 2016-11-22 00:00:00 2016-11-22 00:00:00 Smokeless tobacco non-user [facility] Sex assigned at 1985 00:00:00 1985 00:00:00 [facility] Smoking Status Start Date Stop Date Source Never smoked tobacco [facility] Medications Ordered Medication Name Filled Medication Name Start Date Stop Date Current Medication? Ordering Clinician Indication Dosage Frequency Signature (SIG) Comments Components Source cloNIDine (CATAPRES) tablet 0.1 mg 06-02 04:45: 00 06-02 05:17 :00 No .1mg 0.1 mg, Oral, ONCE, 1 dose, On Sat06/01/24 at 2245, STAT [facility] HYDROcodone -acetaminop hen (NORCO 5) tablet 1 tablet 06-02 04:45: 00 06-02 05:17 :00 No 1{tbl} 1 tablet, Oral, ONCE, 1 dose, On Sat06/01/24 at 2245, [facility] methylpredn isolone sod succ (SOLU-MEDRO L) injection 125 mg 06-02 04:40: 00 06-02 05:18 :00 No 125mg 125 mg, Intramuscu lar, ONCE NOW, 1 dose, On Sat06/01/24 at 2245, [facility] acetaminoph en-codeine 300-30 mg tablet 06-02 00:00: 00 06-10 05:59 :00 Yes [id number] 1{tbl} Take 1 tablet by mouth every 8 (eight) hours as needed for Pain (scale 4-6) for up to 7 days. Indication s: acute pain [facility] lisinopriL (PRINIVIL,Z ESTRIL) tablet 20 mg 12-07 14:00: 00 Yes 20mg 20 mg, Oral, DAILY, First dose on Viktoriya 12/07/21 at 0900, Until Discontinu ed, Routine [facility] HYDROcodone -acetaminop hen (NORCO) 10-325 mg tablet 1 tablet 12-06 17:15: 00 12-06 16:12 :00 No 1{tbl} 1 tablet, Oral, ONCE, 1 dose, On Sat12/06/21 at 1215, [facility] carvediloL (COREG) tablet 25 mg 12-06 17:15: 00 12-06 16:12 :00 No 25mg 25 mg, Oral, ONCE, 1 dose, On Sat12/06/21 at 1215, Routine [facility] methylpredn isolone sod succ (SOLU-MEDRO L) injection 125 mg 12-06 16:45: 00 12-06 16:09 :00 No 125mg 125 mg, Intramuscu lar, ONCE, 1 dose, On Sat12/06/21 at 1145, REGINA [facility] predniSONE 20 mg tablet 12-06 00:00: 00 Yes [id number] 1 PO BID x 4 days [facility] acetaminoph en-codeine 300-30 mg tablet 12-06 00:00: 00 Yes [id number] 1{tbl} Take 1 tablet by mouth every 4 (four) hours as needed for Pain (scale 4-6). Indication s: acute pain [facility] aspirin 81 mg chewable tablet 09-14 00:00: 00 Yes [id number] 81mg Take 1 tablet by mouth daily. [facility] atorvastati n 40 mg tablet 09-14 00:00: 00 Yes [id number] 40mg Take 1 tablet by mouth at bedtime. [facility] carvediloL 25 mg tablet 09-14 00:00: 00 Yes [id number] 37.5mg Take 1.5 tablets by mouth 2 (two) times daily with meals. [facility] furosemide 40 mg tablet 09-14 00:00: 00 Yes [id number] 40mg Take 1 tablet by mouth every morning and evening. [facility] lisinopriL 10 mg tablet 09-14 00:00: 00 Yes [id number] 30mg Take 3 tablets by mouth daily. [facility] spironolact one 25 mg tablet 09-14 00:00: 00 Yes [id number] 25mg Take 1 tablet by mouth daily. [facility] aspirin 81 mg chewable tablet -19 00:00: 00 09-14 00:00 :00 No [id number] 81mg Take 1 tablet by mouth daily for 180 days. [facility] lisinopriL 10 mg tablet 08-22 00:00: 00 09-14 00:00 :00 No [id number] 30mg Take 3 tablets by mouth daily for 180 days. [facility] spironolact one 25 mg tablet 08-22 00:00: 00 09-14 00:00 :00 No [id number] 25mg Take 1 tablet by mouth daily for 180 days. [facility] carvediloL (COREG) tablet 37.5 mg 08-21 22:00: 00 Yes 37.5mg 37.5 mg, Oral, BID MEALS, First dose (after last modificati on) on Sat08/21/21 at 1700, Until Discontinu ed, Routine [facility] lisinopriL (PRINIVIL,Z ESTRIL) tablet 30 mg 08-21 14:00: 00 Yes 30mg 30 mg, Oral, DAILY, First dose (after last modificati on) on Sat08/21/21 at 0900, Until Discontinu ed, Routine [facility] magnesium oxide (MAG-OX 400) tablet 400 mg 08-21 13:45: 00 08-21 13:20 :00 No 400mg 400 mg, Oral, ONCE, 1 dose, On Sat08/21/21 at 0845, Routine [facility] amLODIPine 10 mg tablet 08-21 11:33: 41 08-21 00:00 :00 No 10mg Take 10 mg by mouth daily. [facility] hydroCHLORO thiazide 25 mg tablet 08-21 11:33: 41 08-21 00:00 :00 No 25mg Take 25 mg by mouth daily. [facility] ibuprofen 800 mg tablet 08-21 11:33: 41 08-21 00:00 :00 No 800mg Take 800 mg by mouth 2 (two) times daily. [facility] hydrALAZINE (APRESOLINE ) tablet 10 mg 08-21 07:00: 00 08-21 06:05 :00 No 10mg 10 mg, Oral, ONCE, 1 dose, On Sat08/21/21 at 0200, Routine [facility] atorvastati n 40 mg tablet 08-21 00:00: 00 09-14 00:00 :00 No [id number] 40mg Take 1 tablet by mouth at bedtime for 180 days. [facility] furosemide 40 mg tablet 08-21 00:00: 00 09-14 00:00 :00 No [id number] 40mg Take 1 tablet by mouth every morning and evening for 180 days. [facility] carvediloL 25 mg tablet 08-21 00:00: 00 09-14 00:00 :00 No [id number] 37.5mg Take 1.5 tablets by mouth 2 (two) times daily with meals for 180 days. [facility] carvediloL 25 mg tablet 08-21 00:00: 00 08-21 00:00 :00 No [id number] 25mg Take 1 tablet by mouth 2 (two) times daily with meals for 180 days. [facility] furosemide (LASIX) tablet 40 mg 08-20 14:00: 00 Yes 40mg 40 mg, Oral, QAM+PM, First dose (after last modificati on) on Sat08/20/21 at 0900, Until Discontinu ed, Routine [facility] lisinopriL (PRINIVIL,Z ESTRIL) tablet 20 mg 08-20 14:00: 00 08-21 11:42 :47 No 20mg 20 mg, Oral, DAILY, First dose (after last modificati on) on Sat08/20/21 at 0900, Until Discontinu ed, Routine [facility] carvediloL (COREG) tablet 25 mg 08-20 13:00: 00 08-21 17:46 :56 No 25mg 25 mg, Oral, BID MEALS, First dose (after last modificati on) on 08/20/21 at 0800, Until Discontinu ed, Routine [facility] lisinopriL (PRINIVIL,Z ESTRIL) tablet 5 mg 08-19 15:00: 00 08-19 14:30 :00 No 5mg 5 mg, Oral, ONCE, 1 dose, On Sat08/19/21 at 1000, [facility]ine [facility] carvediloL (COREG) tablet 12.5 mg 08-19 13:00: 00 08-19 22:39 :41 No 12.5mg 12.5 mg, Oral, BID MEALS, First dose (after last modificati on) on Sat08/19/21 at 0800, Until Discontinu ed, Routine [facility] furosemide (LASIX) injection 40 mg 08-19 01:00: 00 08-19 17:31 :11 No 40mg 40 mg, Slow IV Push, Q12H, First dose on Sat08/18/21 at 2000, Until Discontinu ed, Routine [facility] hydrALAZINE (APRESOLINE ) tablet 25 mg 08-18 21:47: 07 Yes 25mg 25 mg, Oral, Q6HPRN, Starting on Sat08/18/21 at 1647, Until Discontinu ed, Routine, SBP >180 [facility] lisinopriL (PRINIVIL,Z ESTRIL) tablet 10 mg 08-18 18:15: 00 08-18 18:14 :00 No 10mg 10 mg, Oral, DAILY, 1 dose, First dose on Sat08/18/21 at 1315, Routine [facility] lisinopriL (PRINIVIL,Z ESTRIL) tablet 10 mg 08-18 16:00: 00 08-19 13:47 :35 No 10mg 10 mg, Oral, DAILY, First dose on Sat08/18/21 at 1100, Until Discontinu ed, Routine [facility] spironolact one (ALDACTONE) tablet 25 mg 08-18 14:00: 00 Yes 25mg 25 mg, Oral, DAILY, First dose on Sat08/18/21 at 0900, Until Discontinu ed, Routine [facility] aspirin chewable tablet 81 mg 08-18 14:00: 00 Yes 81mg 81 mg, Oral, DAILY, First dose on Sat08/18/21 at 0900, Until Discontinu ed, Routine [facility] furosemide (LASIX) tablet 40 mg 08-18 14:00: 00 08-18 16:18 :32 No 40mg 40 mg, Oral, QAM+PM, First dose on Sat08/18/21 at 0900, Until Discontinu ed, Routine [facility] amLODIPine (NORVASC) tablet 10 mg 08-18 12:00: 00 08-18 11:05 :00 No 10mg 10 mg, Oral, ONCE, 1 dose, On Sat08/18/21 at 0700, Routine [facility] atorvastati n (LIPITOR) tablet 40 mg 08-18 02:00: 00 Yes 40mg 40 mg, Oral, QHS, First dose on Sat08/17/21 at 2100, Until Discontinu ed, Routine [facility] heparin (porcine) injection 5,000 Units 08-18 01:00: 00 Yes 5000U 5,000 Units, Subcutaneo us, Q12H, First dose on Sat08/17/21 at 2000, Until Discontinu ed, Routine [facility] hydrALAZINE (APRESOLINE ) tablet 10 mg 08-17 22:45: 00 08-17 23:51 :00 No 10mg 10 mg, Oral, ONCE, 1 dose, On Sat08/17/21 at 1745, Routine [facility] hydrALAZINE (APRESOLINE ) tablet 10 mg 08-17 21:45: 54 08-18 21:47 :24 No 10mg 10 mg, Oral, Q6HPRN, Starting on Sat08/17/21 at 1645, Until Sat08/18/21 at 1647, Routine, SBP >180 [facility] sulfur hexafluorid e microsphr (LUMASON) injection 5 mL 08-17 20:45: 00 08-17 20:45 :00 No [id number] 5mL 5 mL, Intravenou s, ONCE, 1 dose, On Sat08/17/21 at 1545, Routine
[employer] member approving Restricted medication : DEZ QIU [facility] magnesium sulfate in water 4 gram/50 mL (8 %) IV Piggyback 4 g 08-17 18:15: 00 08-17 18:29 :00 No 4g 4 g, IV Piggyback, ONCE, 1 dose, On Viktoriya 08/17/21 at 1315, Routine [facility] KCL (KLOR-CON M20) tablet 40 mEq 08-17 18:15: 00 08-17 18:10 :00 No 40meq 40 mEq, Oral, ONCE, 1 dose, On Viktoriya 08/17/21 at 1315, Routine [facility] furosemide (LASIX) injection 40 mg 08-17 17:15: 00 08-18 12:42 :25 No 40mg 40 mg, Slow IV Push, Q12H, First dose on Viktoriya 08/17/21 at 1215, Until Discontinu ed, Routine [facility] acetaminoph en (TYLENOL) tablet 650 mg 08-17 14:09: 58 Yes 650mg 650 mg, Oral, Q6HPRN, Starting on Sat08/17/21 at 0909, Until Discontinu ed, Routine, Pain (scale 1-3) [facility] amLODIPine 10 mg tablet 08-17 09:16: 15 Yes 10mg Take 10 mg by mouth daily. [facility] hydroCHLORO thiazide 25 mg tablet 08-17 09:16: 15 Yes 25mg Take 25 mg by mouth daily. [facility] ibuprofen 800 mg tablet 08-17 09:16: 15 Yes 800mg Take 800 mg by mouth 2 (two) times daily. [facility] Vital Signs Vital Name Observation Time Observation Value Comments S qi Systolic blood pressure 2024-06-02 06:00:00 183 mm[Hg] [facility] Diastolic blood pressure 2024-06-02 06:00:00 132 mm[Hg] [facility] Heart rate 2024-06-02 05:18:00 82 /min [facility] Body temperature 2024-06-02 05:18:00 37 Anastasiia [facility] Respiratory rate 2024-06-02 05:18:00 20 /min [facility] Oxygen saturation in Arterial blood by Pulse oximetry 2024-06-02 05:18:00 100 /min [facility] Body height 2024-06-02 03:39:00 182.9 cm [facility] Body weight 2024-06-02 03:39:00 102.377 kg [facility] BMI 2024-06-02 03:39:00 30.61 kg/m2 [facility] Systolic blood pressure 2021-12-06 17:40:07 158 mm[Hg] [facility] Diastolic blood pressure 2021-12-06 17:40:07 105 mm[Hg] [facility] Heart rate 2021-12-06 15:43:00 91 /min [facility] Respiratory rate 2021-12-06 15:43:00 20 /min [facility] Oxygen saturation in Arterial blood by Pulse oximetry 2021-12-06 15:43:00 97 /min [facility] Body temperature 2021-12-06 14:49:00 36.61 Anastasiia [facility] Body height 2021-12-06 14:49:00 182.9 cm [facility] Body weight 2021-12-06 14:49:00 99.791 kg [facility] BMI 2021-12-06 14:49:00 29.84 kg/m2 [facility] Systolic blood pressure 2021-08-21 20:39:00 143 mm[Hg] [facility] Diastolic blood pressure 2021-08-21 20:39:00 104 mm[Hg] [facility] Heart rate 2021-08-21 20:39:00 79 /min [facility] Body temperature 2021-08-21 20:39:00 36 Anastasiia [facility] Respiratory rate 2021-08-21 20:39:00 18 /min [facility] Oxygen saturation in Arterial blood by Pulse oximetry 2021-08-21 20:39:00 99 /min [facility] Body weight 2021-08-21 10:57:00 104.055 kg [facility] BMI 2021-08-21 10:57:00 31.11 kg/m2 [facility] Body height 2021-08-18 10:31:00 182.9 cm [facility] Procedures Procedure Date / Time Performed Performing Clinician Source NOTICE OF PRIVACY PRACTICES 2021-12-06 14:38:21 Doctor Unassigned, [place] [facility] CONSENT/REFUSAL FOR DIAGNOSIS AND TREATMENT 2021-12-06 14:38:03 Doctor Unassigned, [place] [facility] AUTHORIZATION FOR RELEASE OF PHI 2021-09-01 05:01:00 Doctor Unassigned, [place] [facility] MAGNESIUM 2021-08-21 08:42:00 Eryn Cowart [facility] BASIC METABOLIC PANEL (NA, K, CL, CO2, GLUCOSE, BUN, CREATININE, CA) 2021-08-21 08:42:00 Supa [facility] N-TERMINAL PRO-BNP 2021-08-21 08:42:00 Gaston Elizabeth [facility] HB ECG ROUTINE & RHYTHM STRIP 2021-08-20 13:02[facility] 2021-08-20 09:22:00 Letty March [facility] BASIC METABOLIC PANEL (NA, K, CL, CO2, GLUCOSE, BUN, CREATININE, CA) 2021-08-20 09:22:00 [facility] 2021-08-20 09:22:00 Letty March [facility] HB ECG ROUTINE & RHYTHM STRIP 2021-08-19 13:08:08 [facility] 2021-08-19 10:21:00 [facility] BASIC METABOLIC PANEL (NA, K, CL, CO2, GLUCOSE, BUN, CREATININE, CA) 2021-08-19 10:21:00 Gaston Elizabeth [facility] BASIC METABOLIC PANEL (NA, K, CL, CO2, GLUCOSE, BUN, CREATININE, CA) 2021-08-18 19:41:00 Supa [facility] HB ECG ROUTINE & RHYTHM STRIP 2021-08-18 14:50:24 Supa [facility] MAGNESIUM 2021-08-18 09:10:00 [facility]OLIC PAN[facility] (NA, K, CL, CO2, GLUCOSE, BUN, CREATININE, CA) 2021-08-18 09:10:00 Supa [facility] CBC WITH DIFF 2021-08-18 09:10:00 Supa [facility] TROPONIN I 2021-08-17 23:58:00 Supa [facility] TRANSTHORACIC ECHO (TTE) COMPLETE W/ CONTRAST 2021-08-17 18:53:00 Supa [facility] PHOSPHORUS 2021-08-17 15:43:00 [facility] 2021-08-17 15:43:00 Supa [facility] FERRITIN SERUM 2021-08-17 15:43:00 Eryn Cowart [facility] TROPONIN I 2021-08-17 15:43:00 Supa [facility] THYROID STIMULATING HORMONE 2021-08-17 15:43:00 Supa [facility] HEPATIC FUNCTION PANEL (02661) (ALB,T.PRO,BILI T,BU/BC,ALT,AST,ALK PHOS) 2021-08-17 15:43:00 Supa [facility] BASIC METABOLIC PANEL (NA, K, CL, CO2, GLUCOSE, BUN, CREATININE, CA) 2021-08-17 15:43:00 Supa [facility] IRON PANEL 2021-08-17 15:43:00 Supa [facility] CBC WITH DIFF 2021-08-17 15:43:00 Supa [facility] GLYCOSYLATED HEMOGLOBIN (A1C) 2021-08-17 15:43:00 Eryn Cowart [facility] N-TERMINAL PRO-BNP 2021-08-17 15:43:00 Eryn Cowart [facility] XR CHEST 1 VW 2021-08-17 15:10:00 Eryn Cowart [facility] EXTERNAL PROVIDER RECORDS 2016-11-23 05:01:00 Doctor Unassigned, [place] [facility] DAY SURGERY - ADC 2016-11-23 05:01:00 Doctor Ivonne ssigned, [place] [facility] Encounters Start Date/Time End Date/Time Encounter Type Admission Type Attending Clinicians Care Facility Care Department Encounter ID Source 2024-08-03 13:47:27 2024-08-03 13:47:27 Outpatient [facility] [id number] Gucci Philippe Bairon 2016-11-23 00:00:00 2024-06-20 03:42:57 Orders Only Doctor Unassigned, [place] Doctor Unassigned, [place] [facility] [id number] 350.1.13.10 4.2.7.2.686 [id number] [facility] 2024-06-10 00:00:00 2024-06-10 11:09:01 Letter (Out) Campaigns, Generic Provider Campaigns, Generic Provider [facility] ([facility] [id number] 350.1.13.10 4.2.7.2.686 [id number] [facility] 2024-06-01 21:44:00 2024-06-02 00:17:00 Emergency X MIGDALIA VILLEGAS SHINTA [facility] ERT [id number] [facility] 2024-06-01 21:44:00 2024-06-02 00:17:00 Emergency Migdalia Villegas [facility] 1.2.840.114 350.1.13.10 4.2.7.2.686 [id number] [facility] 2024-03-30 10:06:11 2024-03-30 10:06:11 Outpatient [facility] [id number] Gucci Waddell 2022-08-17 00:00:00 2022-08-17 00:00:00 [facility]..114 350.1.13.10 4.2.7.2.686 [id number] [facility] 2021-12-06 09:51:00 2021-12-06 13:09:00 Emergency Tameka Novoa [facility] 1..114 350.1.13.10 4.2.7.2.686 [id number] [facility] 2021-12-06 09:51:00 2021-12-06 13:09:00 Emergency X Tameka NOVOA [facility] ERT [id number] [facility] 2021-12-06 00:00:00 2021-12-06 00:00:00 Orders Only Doctor Unassigned, [place] [facility] 1..114 350.1.13.10 4.2.7.2.686 [id number] [facility] 2021-09-14 00:00:00 2021-09-14 00:00:00 [facility]114 350.1.13.10 4.2.7.2.686 [id number] [facility] 2021-09-12 00:00:00 2021-09-12 00:00:00 Telephone Basim Cota [facility] MEDICAL OFFICE BUILDING 1..114 350.1.13.10 4.2.7.2.686 [id number] [facility] 2021-09-01 00:00:00 2021-09-01 00:00:00 Telephone Khalife, [facility] 1.2840.114 350.1.13.10 4.2.7.2.686 [id number] [facility] 2021-09-01 00:00:00 2021-09-01 00:00:00 Orders Only Doctor Unassigned, [place] [facility] 1.2840.114 350.1.13.10 4.2.7.2.686 [id number] [facility] 2021-08-30 00:00:00 2021-08-30 00:00:00 [facility] 1.840.114 350.1.13.10 4.2.7.2.686 [id number] [facility] 2021-08-22 00:00:00 2021-08-22 00:00:00 Transition of Care Sherrell Neumann 1.840.114 350.1.13.10 4.2.7.2.686 [id number] [facility] 2021-08-17 08:35:00 2021-08-21 17:42:00 Inpatient U DIMITRIOS ABEL [facility] [id number] [facility] 2021-08-17 08:35:00 2021-08-21 17:42:00 Hospital Encounter Basim Cota SanzDimitrios Douglass [facility] 1.840.114 350.1.13.10 4.2.7.2.686 [id number] [facility] 2021-08-18 00:00:00 2021-08-18 00:00:00 Telephone Dimitrios Abel [facility] 1.2840.114 350.1.13.10 4.2.7.2.686 [id number] [facility] Results Test Description Test Time Test Comments Results Result Co mments Source [facility] METABOLIC PANEL (NA, K, CL, CO2, GLUCOSE, BUN, CREATININE, CA)2021-08-21 10:07:34* Test Item Value Reference Range Interpretation Comme nts NA (test code = 7818790150) 135 mmol/L 135-145 K (test code = 7592625044) 4.4 mmol/L 3.5-5.0 CL (test code = 0885284413) 102 mmol/L 98-108 CO2 TOTAL (test code = 0749840867) 26 mmol/L 23-31 AGAP (test code = 3002685211) 2-16 BUN (test code = 4456237140) 27 mg/dL 7-23 H GLUCOSE (test code = 7261520637) 104 mg/dL 70-110 CREATININE (test code = 3321859947) 1.49 mg/dL 0.60-1.25 H CALCIUM (test code = 8777301441) 9.0 mg/dL 8.6-10.6 eGFR (test code = 1544092399) mL/min/1.73m2 EBEN (test code = EBEN) Association [...] imaging tests). Lab Interpretation (test code = 12303-3) [facility]:07:34* Test Item Value Reference Range Interpretation Comme nts MAGNESIUM (test code = 7976746357) 1.9 mg/dL 1.7-2.4 Lab Interpretation (test cod e = 08478-4) [facility] (NA, K, CL, CO2, GLUCOSE, BUN, CREATININE, CA)2021-08-20 10:22:59* Test Item Value Reference Range Interpretation Comme nts NA (test code = 6529283371) 137 mmol/L 135-145 K (test code = 1592013665) 4.4 mmol/L 3.5-5.0 CL (test code = 5835043886) 102 mmol/L 98-108 CO2 TOTAL (test code = 6138413207) 26 mmol/L 23-31 AGAP (test code = 1900236883) 2-16 BUN (test code = 8836472608) 31 mg/dL 7-23 H GLUCOSE (test code = 2619461172) 119 mg/dL 70-110 H CREATININE (test code = 1299079017) 1.56 mg/dL 0.60-1.25 H CALCIUM (test code = 0069675076) 9.1 mg/dL 8.6-10.6 eGFR (test code = 9119850585) mL/min/1.73m2 EBEN (test code = EBEN) Association [...] imaging tests). Lab Interpretation (test code = 94369-0) [facility]normal [facility] 10:22:59* Test Item Value Reference Range Interpretation Comme nts MAGNESIUM (test code = 1874714437) 2.1 mg/dL 1.7-2.4 Lab Interpretation (test cod e = 36225-7) Normal [facility] WITH [id number] 09:42:15* Test Item Value Reference Range Interpretation Comme nts WBC (test code = 6690-2) See_Comment H [Automated [employer]] The system which generated this result transmitted reference range: 4.20 - 10.70 10*3/?L. The reference range was not used to interpret this result as normal/abnormal. RBC (test code = 789-8) See_Comment [[employer]] The system which generated this result transmitted [...] 32.8 g/dL 31.2-35.0 RDW-SD (test code = 80688-2) 39.3 fL 38.5-51.6 RDW-CV (test code = 788-0) 12.5 % 12.1-15.4 PLT (test code = 777-3) See_Comment H [Automated messa ge] The system which generated this result transmitted reference range: 150 - 328 10*3/?L. The reference range was not used to interpret this result as normal/abnormal. MPV (test code = 18716-9) 9.3 fL 9.8-13.0 L NRBC/100 WBC (test code = 6592398405) See_Comment [Automated [employer] ssage] The system which generated this result transmitted reference range: 0.0 - 10.0 /100 WBCs. The reference range was not used to interpret this result as normal/abnormal. NRBC x10^3 (test code = 8115371734) <0.01 See_Comment [Automated messa ge] The system which generated this result transmitted reference range: 10*3/?L. The reference range was not used to interpret this result as normal/abnormal. GRAN MAT (NEUT) % (test code = 770-8) 60.5 % IMM GRAN % (test code = 1067945370) 0.30 % LYMPH % (test code = 736-9) 26.7 % MONO % (test code = 5905-5) 8.3 % EOS % (test code = 713-8) 3.4 % BASO % (test code = 706-2) 0.8 % GRAN MAT x10^3(ANC) (test code = 2596469604) 7.17 10*3/uL 1.99-6.95 H IMM GRAN x10^3 (test code = 2555800267) 0.03 10*3/uL 0.00-0.06 LYMPH x10^3 (test code = 731-0) 3.16 10*3/uL 1.09-3.23 MONO x10^3 (test code = 742-7) 0.98 10*3/uL 0.36-1.02 EOS x10^3 (test code = 711-2) 0.40 10*3/uL 0.06-0.53 BASO x10^3 (test code = 704-7) 0.10 10*3/uL 0.01-0.09 H Lab Interpretation (test code = 80947-0) Abnormal [facility] METABOLIC PANEL (NA, K, CL, CO2, GLUCOSE, BUN, CREATININE, CA)2021-08-19 10:52:12* Test Item Value Reference Range Interpretation Comme nts NA (test code = 7742765114) 136 mmol/L 135-145 K (test code = 5225852729) 3.8 mmol/L 3.5-5.0 CL (test code = 0402484246) 100 mmol/L 98-108 CO2 TOTAL (test code = 3270088329) 29 mmol/L 23-31 AGAP (test code = 6587404202) 2-16 BUN (test code = 0189735179) 32 mg/dL 7-23 H GLUCOSE (test code = 0065308470) 115 mg/dL 70-110 H CREATININE (test code = 3522690341) 1.67 mg/dL 0.60-1.25 H CALCIUM (test code = 5525317131) 9.1 mg/dL 8.6-10.6 eGFR (test code = 0012146306) mL/min/1.73m2 EBEN (test code = EBEN) Association [...] imaging tests). Lab Interpretation (test code = 15112-2) [facility] 10:52:12* Test Item Value Reference Range Interpretation Comme nts MAGNESIUM (test code = 7320413744) 1.9 mg/dL 1.7-2.4 Lab Interpretation (test cod e = 99379-9) [facility] (NA, K, CL, CO2, GLUCOSE, BUN, CREATININE, CA)2021-08-18 21:19:06* Test Item Value Reference Range Interpretation Comme nts NA (test code = 9594850457) 135 mmol/L 135-145 K (test code = 8959670830) 3.9 mmol/L 3.5-5.0 CL (test code = 1766442514) 98 mmol/L 98-108 CO2 TOTAL (test code = 3883544448) 30 mmol/L 23-31 AGAP (test code = 4027895890) 2-16 BUN (test code = 6303793503) 29 mg/dL 7-23 H GLUCOSE (test code = 0753478092) 121 mg/dL 70-110 H CREATININE (test code = 1737177089) 1.58 mg/dL 0.60-1.25 H CALCIUM (test code = 2927618132) 8.9 mg/dL 8.6-10.6 eGFR (test code = 9969701750) mL/min/1.73m2 EBEN (test code = EBEN) Association [...] imaging tests). Lab Interpretation (test code = 92839-8) [facility] (NA, K, CL, CO2, GLUCOSE, BUN, CREATININE, CA)2021-08-18 10:04:44* Test Item Value Reference Range Interpretation Comme nts NA (test code = 7079472391) 135 mmol/L 135-145 K (test code = 5525569697) 4.0 mmol/L 3.5-5.0 Slight hemolysis CL (test code = 9845176331) 101 mmol/L 98-108 CO2 TOTAL (test code = 9139818182) 29 mmol/L 23-31 AGAP (test code = 9473719807) 2-16 BUN (test code = 6345911999) 32 mg/dL 7-23 H Slight hemolysis GLUCOSE (test code = 1087139819) 114 mg/dL 70-110 H CREATININE (test code = 9321238950) 1.54 mg/dL 0.60-1.25 H CALCIUM (test code = 1537238704) 8.8 mg/dL 8.6-10.6 eGFR (test code = 4502792925) mL/min/1.73m2 EBEN (test code = EBEN) Association [...] imaging tests). Lab Interpretation (test code = 61746-3) [facility] 10:04:44* Test Item Value Reference Range Interpretation Comme nts MAGNESIUM (test code = 9588516370) 2.2 mg/dL 1.7-2.4 Lab Interpretation (test cod e = 40845-3) Normal [facility] WITH [id number] 09:24:38* Test Item Value Reference Range Interpretation Comme nts WBC (test code = 6690-2) See_Comment [Automated [employer]] The system which generated this result transmitted reference range: 4.20 - 10.70 10*3/?L. The reference range was not used to interpret this result as normal/abnormal. RBC (test code = 789-8) See_Comment [Automated Lab7 Systemsa M[employer]u] The system which generated this result transmitted [...] 33.3 g/dL 31.2-35.0 RDW-SD (test code = 39957-2) 39.1 fL 38.5-51.6 RDW-CV (test code = 788-0) 12.6 % 12.1-15.4 PLT (test code = 777-3) See_Comment H [Automated messa ge] The system which generated this result transmitted reference range: 150 - 328 10*3/?L. The reference range was not used to interpret this result as normal/abnormal. MPV (test code = 10610-3) 9.5 fL 9.8-13.0 L NRBC/100 WBC (test code = 1594937724) See_Comment [Automated [employer] ssage] The system which generated this result transmitted reference range: 0.0 - 10.0 /100 WBCs. The reference range was not used to interpret this result as normal/abnormal. NRBC x10^3 (test code = 6908062910) <0.01 See_Comment [Automated messa ge] The system which generated this result transmitted reference range: 10*3/?L. The reference range was not used to interpret this result as normal/abnormal. GRAN MAT (NEUT) % (test code = 770-8) 65.3 % IMM GRAN % (test code = 3777791915) 0.20 % LYMPH % (test code = 736-9) 23.3 % MONO % (test code = 5905-5) 7.0 % EOS % (test code = 713-8) 3.5 % BASO % (test code = 706-2) 0.7 % GRAN MAT x10^3(ANC) (test code = 5281118073) 6.63 10*3/uL 1.99-6.95 IMM GRAN x10^3 (test code = 5606597963) <0.03 0.00-0.06 LYMPH x10^3 (test code = 731-0) 2.36 10*3/uL 1.09-3.23 MONO x10^3 (test code = 742-7) 0.71 10*3/uL 0.36-1.02 EOS x10^3 (test code = 711-2) 0.35 10*3/uL 0.06-0.53 BASO x10^3 (test code = 704-7) 0.07 10*3/uL 0.01-0.09 Lab Interpretation (test code = 63211-9) [facility]normal [facility]A1C)2021-08-18 02:37:07* Test Item Value Reference Range Interpretation Comme nts HGB A1C (test code = 4548-4) 5.8 % 4.0-5.7 H EBEN (test code = EBEN) Reference RangesNormal: <5.7%Prediabetes: 5.7 - 6.4%Diabetes: > 6.5% Lab Interpretation (test code = 27530-8) [facility]normal [facility] [id number] 01:03:37* Test Item Value Reference Range Interpretation Comments TROPONIN I (test code = 4030916040) 0.101 ng/mL See_Comment H [Automated message] The [...] of biotin. Lab Interpretation (test code = 07496-8) [facility]normal [facility]2021-08-17 22:14:20* Test Item Value Reference Range Interpretation Comme nts Ao root annulus (test code = 3166252542) 3.3 cm Ao root diam (test code = 4608413594) 3.30 cm Aortic root (test code = 4409415966) 3.3 cm LA size (test code = 1372137391) 3.7 cm LVOT diameter (test code = 4999203968) 2.00 cm LVIDD (test code = 8477564247) 5.90 cm IVS (test code = 0510677104) 1.26 cm Interventricular Septum Diastolic Thickness by 2D (test code = 7852005) 1.26 cm LVPWD (test code = 2607870402) 1.19 cm PW (test code = 7106850480) 1.19 cm 0.6-1.1 EF(Teich) (test code = 1953755966) 46.60 % LVIDS (test code = 0733585838) 4.50 cm FS (test code = 5883523616) 24 % EF - 2D (test code = 65837046) 46.60 % LAV(MOD-sp4) (test code = 1690914029) 65.30 mL MV Peak E Narciso (test code = 4101499708) 126.4 cm/s E wave decelartion time (test code = 9529161235) 0.14 s MV Prop V (test code = 6633106934) 35.00 cm/s LVOT stroke volume (test code = 0522118930) 45.10 cm3 LVOT peak narciso (test code = 9644687384) 90.0 cm/s LVOT mn grad (test code = 0158214304) mmHg AV LVOT peak gradient (test code = 6308876827) mmHg LVOT peak VTI (test code = 1896868202) 14.4 cm LV V1 mean (test code = 9539495741) 63.00 cm/s Aortic valve mean velocity (test code = 6736590048) 76.8 cm/s Ao peak narciso (test code = 5183386152) 125.5 cm/s Ao VTI (test code = 7192742324) 17.0 cm AV area by cont VTI (test code = 3299475136) 2.6 cm2 AV area peak narciso (test code = 1376881902) 2.2 cm2 Ao max PG (test code = 2233718844) 6.30 mm[Hg] AV peak gradient (test code = 6989251722) mmHg AV valve area (test code = 7737714027) 2.60 cm2 AV mean gradient (test code = 0927885540) mmHg TR Peak Narciso (test code = 4381673454) 119.4 cm/s Triscuspid Valve Regurgitation Peak Gradient (test code = 5485627930) mmHg Tapse (test code = 3178805131) 1.95 cm LA volume (BP) (test code = 8366301714) 73.5 mL LAV(MOD-sp2) (test code = 3583411842) 74.00 mL LA Volume Index (BP) (test code = 3043751411) 32.5 mL/m2 LV Diastolic Volume (BP) (test code = 5155589053) 232.2 mL EF(MOD-bp) (test code = 0041266985) 33.10 % LV Systolic Volume (BP) (test code = 7591630861) 155.2 mL SV(MOD-bp) (test code = 3682292264) 76.90 mL EF (test code = 5261379413) 33 % Left Ventricular Stroke Volume by 2-D Biplane-MOD (test code = 7403284) 76.9 mL Radiology Study observation (narrative) (test code = 41908-5) EBEN (test code = EBEN) ?Left?Ventricle: Left [...] (104.3 kg) 2.3 sq meters 183/126 82 [facility] (ALB,T.PRO,BILI T,BU/BC,ALT,AST,ALK PHOS)2021-08-17 17:59:20* Test Item Value Reference Range Interpretation Comme nts TOTAL BILI (test code = 5830498461) 0.4 mg/dL 0.1-1.1 BILI UNCON (test code = 0036491125) 0.4 mg/dL 0.1-1.1 BILI CONJ (test code = 2200293372) 0.0 mg/dL 0.0-0.3 T PROTEIN (test code = 4645952163) 6.4 g/dL 6.3-8.2 ALBUMIN (test code = 7691215888) 3.7 g/dL 3.5-5.0 ALK PHOS (test code = 6016197261) 64 U/L 34-122 ALTv (test code = 1742-6) 39 U/L 5-50 AST(SGOT) (test code = 7749346488) 30 U/L 13-40 Lab Interpretation (test cod e = 56615-3) Normal [facility]ERR[facility] [id number] 17:21:19* Test Item Value Reference Range Interpretation Comme nts FERRITIN (test code = 9295599393) 29.7 ng/mL 18.0-464.0 EBEN (test code = EBEN) Biotin has been reported to cause a negative bias, interpret results relative to patient's use of biotin. Lab Interpretation (test code = 13183-5) Normal [facility] CenterTHYROID STIMULATING [id number] 17:14:24 * Test Item Value Reference Range Interpretation Comme nts TSH (test code = 1312682277) See_Comment [Automated Lab7 Systemsa ge] The system which generated this result transmitted reference range: 0.45 - 4.70 mIU/L. The reference range was not used to interpret this result as normal/abnormal. Lab Interpretation (test code = 58539-0) Normal [facility] CenterN-TERMINAL [id number] 16:55:55* Test Item Value Reference Range Interpretation Comme nts NT-proBNP (test code = 9408348084) 5070 pg/mL See_Comment H [Automated message] The system which generated this result transmitted reference range: <=125. The reference range was not used to interpret this result as normal/abnormal. EBEN (test code = EBEN) Biotin has been reported to cause a negative bias, interpret results relative to patient's use of biotin. Lab Interpretation (test code = 30354-1) Abnormal [facility] [id number] 16:55:55* Test Item Value Reference Range Interpretation Comments TROPONIN I (test code = 6370186207) 0.117 ng/mL See_Comment H [Automated message] The [...] of biotin. Lab Interpretation (test code = 92227-1) Abnormal [facility] CenterIRON [id number] 16:52:53* Test Item Value Reference Range Interpretation Comme nts IRON (test code = 2032156521) 51 ug/dL 50-160 TIBC (test code = 8200438049) 298 ug/dL 250-410 % FE SAT (test code = 2349342923) 17 % 20-50 L Lab Interpretation (test cod e = 27691-0) [facility]normal [facility]2022-04-14 16:41:35* Test Item Value Reference Range Interpretation Comme nts MAGNESIUM (test code = 7280837986) 1.6 mg/dL 1.7-2.4 L Lab Interpretation (test cod e = 69816-9) Abnormal [facility] CenterPHOSPHORUS2022-04-14 16:41:35* Test Item Value Reference Range Interpretation Comme nts PHOSPHORUS (test code = 2586615031) 4.0 mg/dL 2.5-5.0 Lab Interpretation (test cod e = 76456-7) Normal [facility]OL[facility] (NA, K, CL, CO2, GLUCOSE, BUN, CREATININE, CA)2021-08-17 16:41:35* Test Item Value Reference Range Interpretation Comme nts NA (test code = 4501645992) 134 mmol/L 135-145 L K (test code = 3451876824) 3.6 mmol/L 3.5-5.0 CL (test code = 8226347532) 99 mmol/L 98-108 CO2 TOTAL (test code = 0354077318) 32 mmol/L 23-31 H AGAP (test code = 9237416918) 2-16 BUN (test code = 5941127791) 24 mg/dL 7-23 H GLUCOSE (test code = 6308071901) 111 mg/dL 70-110 H CREATININE (test code = 9425340226) 1.60 mg/dL 0.60-1.25 H CALCIUM (test code = 6790543481) 8.8 mg/dL 8.6-10.6 eGFR (test code = 1203059767) mL/min/1.73m2 EBEN (test code = EBEN) Association [...] imaging tests). Lab Interpretation (test code = 82602-4) Abnormal [facility] WITH [id number] 16:00:05* Test Item Value Reference Range Interpretation [...] 33.7 g/dL 31.2-35.0 RDW-SD (test code = 46907-7) 39.5 fL 38.5-51.6 RDW-CV (test code = 788-0) 12.6 % 12.1-15.4 PLT (test code = 777-3) See_Comment H [Automated messa ge] The system which generated this result transmitted reference range: 150 - 328 10*3/?L. The reference range was not used to interpret this result as normal/abnormal. MPV (test code = 79081-1) 9.4 fL 9.8-13.0 L NRBC/100 WBC (test code = 7866016401) See_Comment [Automated [employer] ssage] The system which generated this result transmitted reference range: 0.0 - 10.0 /100 WBCs. The reference range was not used to interpret this result as normal/abnormal. NRBC x10^3 (test code = 5334481174) <0.01 See_Comment [Automated messa ge] The system which generated this result transmitted reference range: 10*3/?L. The reference range was not used to interpret this result as normal/abnormal. GRAN MAT (NEUT) % (test code = 770-8) 65.6 % IMM GRAN % (test code = 6336271381) 0.20 % LYMPH % (test code = 736-9) 23.8 % MONO % (test code = 5905-5) 6.7 % EOS % (test code = 713-8) 3.2 % BASO % (test code = 706-2) 0.5 % GRAN MAT x10^3(ANC) (test code = 9610917661) 6.58 10*3/uL 1.99-6.95 IMM GRAN x10^3 (test code = 5960383465) <0.03 0.00-0.06 LYMPH x10^3 (test code = 731-0) 2.39 10*3/uL 1.09-3.23 MONO x10^3 (test code = 742-7) 0.67 10*3/uL 0.36-1.02 EOS x10^3 (test code = 711-2) 0.32 10*3/uL 0.06-0.53 BASO x10^3 (test code = 704-7) 0.05 10*3/uL 0.01-0.09 Lab Interpretation (test code = 10475-0) Abnormal [facility] Notes Date/Time Note Provider Source [...] in no apparent distress, A [facility] 2024-06-01 21:38:46 Patient arrived ambulatory to ED c/o right foot gout pain that started last night. Patient states being d/c from [place] with prescriptions about 30 minutes ago. States normally gets a shot but they didn't give him one this time. Hx of HTN takes BP medications for it. A Ding RN [facility]"
[2024-08-27] MEDS ORDERED: COLCHICINE 0.6 MG TAB ONE (10:00)
[2024-08-27] MEDS ORDERED: dexAMETHasone 10 MG/ML VIAL ONE (10:00)
--- NOTE | 2024-08-27 10:02 | EDPHYS ---
Physician Documentation [facility] Name: Ezequiel Padron Age: 39 yrs Sex: Male : 1985 Arrival Date: 08/27/2024 Time: 09:45 Bed 12 Private MD: ED Physician Evon Cooper HPI: 08/27 10:03 This 39 yrs old Black Male presents to ER via Ambulatory with complaints of Knee Pain. sw6 09:57 The patient presents with pain, that is acute. The complaints affect the right knee. sw6 Onset: The symptoms/episode began/occurred Several days ago. Treatment prior to arrival includes: no previous treatment. The patient has experienced a previous episode, and the symptoms today are exactly the same. The patient presents from home for evaluation for right knee pain it has been getting worse for the past several days. Denies any injury or trauma. Does have a history of gout and reports this feels like a typical gout flare. He has been on medication for his gout in the past but currently has none. He also reports history of high blood pressure and takes metoprolol and lisinopril and admits to compliance with his medication. Here for evaluation. Historical: - Allergies: 09:57 Nitroglycerin; ss - Home Meds: 09:57 metoprolol tartrate 100 mg Oral tablet 2 times per day [Active]; lisinopril 10 mg Oral ss tablet [Active]; - PMHx: 09:57 Congestive heart failure; Gout; Hypertensive disorder; ss - PSHx: 09:57 R femur; ss - Infectious Disease History:: Denies. ROS: 09:57 Constitutional: Negative for fever, chills, and weight loss, Cardiovascular: Negative sw6 for chest pain, palpitations, and edema, Respiratory: Negative for shortness of breath, cough, wheezing, and pleuritic chest pain, Abdomen/GI: Negative for abdominal pain, nausea, vomiting, diarrhea, and constipation, 09:57 MS/extremity: Positive for pain, 09:57 All other systems are negative, Exam: 09:57 Constitutional: This is a well developed, well nourished patient who is awake, alert, sw6 and in no acute distress. 09:57 Cardiovascular: Rate: normal, 09:57 Respiratory: the patient does not display signs of respiratory distress, 09:57 Abdomen/GI: Inspection: abdomen appears normal, 09:57 Musculoskeletal/extremity: Mild swelling of the right knee. There is no deformity noted to his right knee. He has full range of motion of his right knee without difficulty.. Vital Signs: 09:55 BP 183 / 127; Pulse 71; Resp 16; Temp 98.1(O); Pulse Ox 97% on R/A; Weight 104.33 kg; ss Height 6 ft. 0 in. ; Pain 02/12; 09:55 Body Mass Index 31.19 (104.33 kg, 182.88 cm) ss 09:55 Pain Scale: Adult ss MDM: 09:51 Medical Screening Exam initiated sw6 09:57 Differential diagnosis: contusion, Gout. No concern for fracture based on his sw6 presentation. Data reviewed: vital signs, nurses notes. Administered Medications: 10:05 Drug: Dexamethasone IM 10 mg IM once Route: IM; Site: left deltoid; ss 10:24 Follow up: Response: No adverse reaction; Pain is decreased ss 10:05 Drug: colchicine 0.6 mg 0.6 mg PO once Route: PO; ss 10:24 Follow up: Response: No adverse reaction ss Disposition Summary: 08/27/24 10:02 Discharge Ordered Notes: Location: Home sw6 Problem: new sw6 Symptoms: are unchanged sw6 Condition: Stable sw6 Diagnosis - Gout, unspecified sw6 Discharge Instructions: - Discharge Summary Sheet ss - Gout sw6 - Gout, Yiuf-oy-Cofl sw6 Forms: - Work release form ss - Medication Reconciliation Form sw6 - Antibiotic Education sw6 - Prescription Opioid Use sw6 - Patient Portal Instructions sw6 - Leadership Thank You Letter 6 Prescriptions: - colchicine 0.6 mg Oral tablet - take 1 tablet ORAL route 2 times per day; 14 tablet; Refills: 0, Product sw6 Selection Permitted Signatures: Anny Graff RN RN Evon Cooper MD MD 6
--- NOTE | 2024-08-27 10:02 | ER ---
Nurse's Notes [facility] Name: Ezequiel Padron Age: 39 yrs Sex: Male : 1985 Arrival Date: 08/27/2024 Time: 09:45 Bed 12 Private MD: Diagnosis: Gout, unspecified Presentation: 08/27 09:55 Chief complaint: Patient states: "gout flare up" R knee pain x 2 days. Coronavirus ss screen: Client denies travel out of the [place] in the last 14 days. Ebola Screen: Patient denies exposure to infectious person. Patient denies travel to an Ebola-affected area in the 21 days before illness onset. Initial Sepsis Screen: Does the patient meet any 2 criteria? No. Patient's initial sepsis screen is negative. Does the patient have a suspected source of infection? No. Patient's initial sepsis screen is negative. Risk Assessment: Do you want to hurt yourself or someone else? Patient reports no desire to harm self or others. Onset of symptoms was August 25, 2024. 09:55 Method Of Arrival: Ambulatory ss 09:55 Acuity: HERMELINDA 4 ss Historical: - Allergies: 09:57 Nitroglycerin; ss - Home Meds: 09:57 metoprolol tartrate 100 mg Oral tablet 2 times per day [Active]; lisinopril 10 mg Oral ss tablet [Active]; - PMHx: 09:57 Congestive heart failure; Gout; Hypertensive disorder; ss - PSHx: 09:57 R femur; ss - Infectious Disease History:: Denies. Vital Signs: 09:55 BP 183 / 127; Pulse 71; Resp 16; Temp 98.1(O); Pulse Ox 97% on R/A; Weight 104.33 kg; ss Height 6 ft. 0 in. ; Pain 10/10; 09:55 Body Mass Index 31.19 (104.33 kg, 182.88 cm) ss 09:55 Pain Scale: Adult ss ED Course: 09:47 Patient arrived in ED. al6 09:51 Evon Cooper MD is Attending Physician. sw6 09:55 Anny Graff RN is Primary Nurse. ss 09:57 Triage completed. ss 09:57 Arm band placed on right wrist. ss 10:24 No provider procedures requiring assistance completed. Patient did not have IV access ss during this emergency room visit. Administered Medications: 10:05 Drug: Dexamethasone IM 10 mg IM once Route: IM; Site: left deltoid; 10:24 Follow up: Response: No adverse reaction; Pain is decreased 10:05 Drug: colchicine 0.6 mg 0.6 mg PO once Route: PO; ss 10:24 Follow up: Response: No adverse reaction ss Outcome: 10:02 Discharge ordered by . sw6 10:24 Discharged to home ambulatory, 10:24 Condition: good 10:24 Discharge instructions given to patient, Instructed on discharge instructions, follow up and referral plans. medication usage, Demonstrated understanding of instructions, follow-up care, medications, Prescriptions given X 1, 10:24 Patient left the ED. Signatures: Anny Graff RN RN Evon Cooper MD MD sw6 [facility] al6
[2024-08-27 10:44] VITALS: BP 183/127; TEMP 98.1; O2SAT 97
== END 2024-08-27 10:24 | disposition home or self-care (01) ==
LOC: ER 09:45
DX: M10.9 Gout, unspecified (principal)
CPT/HCPCS: 96372; 99284; J1100

== ENCOUNTER 2024-12-18 16:09 | Emergency (ER) | payer OTHER ==
--- OUTSIDE RECORDS SUMMARY | 2024-12-18 16:15 | XMS REPORT | Continuity of Care Document ---
Author Name Unknown Address [address] [facility] [address] [place] [address] Organization [facility] Address [address] [facility] 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 Name Role Phone Pcp, Patient Does Not Have A Primary Care Physic pat Doctor Unassigned, [place] Attending Clinician U jose e Figueroa, Generic Provider Attending Clinician Unavailable MIGDALIA VILLEGAS Attending Clinician Unavailable MIGDALIA VILLEGAS Attending Clinician Unavailable Migdalia Driver Attending Clinician [phone] Cipriano FREDERICK, Basim Sanz Attending Clinician + Tameka Garcia Attending Clinician [phone] Tameka NOVOA Attending Clinician Unavailable Doctor Unassigned, [place] Attending Clinician U Sherrell Erazo RN Attending Clinician Unavailable DIMITRIOS ABEL Attending Clinician UnavailDimitrios Kearney MD Attending Clinician [phone] DIMITRIOS ABEL Admitting Clinician UnavailDimitrios Kearney MD Admitting Clinician Payers Payer Name Policy [...] Comments Source History SDOH Alcohol Std Drinks [facility] History SDOH Alcohol Binge [facility] Alcohol Frequency [facility] History of Social function 2024-06-01 00:00:00 2024-06-01 00:00:00 [facility] Exposure to SARS-CoV-2 (event) 2021-11-26 00:00:00 2021-12-06 12:55:00 Not sure [facility] Alcohol intake 2021-12-06 00:00:00 2021-12-06 00:00:00 Current drinker of alcohol (finding) [facility] Alcohol Comment 2016-11-22 00:00:00 2016-11-22 00:00:00 Daily [facility] Alcoholic beverage intake 2016-11-22 00:00:00 2016-11-22 00:00:00 Current drinker of alcohol (finding) [facility] Tobacco use and exposure 2016-11-22 00:00:00 2016-11-22 00:00:00 Smokeless tobacco non-user [facility] Sex assigned at 1985 00:00:00 1985 00:00:00 [facility] Smoking Status Start Date Stop Date Source [...] ONCE, 1 dose, On Sat06/01/24 at 2245, [facility] methylpredn isolone sod succ (SOLU-MEDRO L) injection 125 mg 06-02 04:40: 00 06-02 05:18 :00 No 125mg 125 mg, Intramuscu lar, ONCE NOW, 1 dose, On Sat06/01/24 at 2245, [facility] acetaminoph en-codeine 300-30 mg tablet 06-02 00:00: 00 06-10 05:59 :00 No [id number] 1{tbl} Take 1 tablet by mouth [...] ONCE, 1 dose, On Sat12/06/21 at 1215, [facility] carvediloL (COREG) tablet 25 mg 12-06 17:15: [...] 20 mg tablet 12-06 00:00: 00 Yes [id number] 1 PO BID x 4 days [facility] acetaminoph en-codeine 300-30 mg tablet 12-06 00:00: 00 Yes 4647 1{tbl} Take 1 tablet by mouth every 4 (four) hours as needed for Pain (scale 4-6). Indication s: acute pain [facility] aspirin 81 mg chewable tablet 09-14 00:00: 00 Yes [id number] 81mg Take 1 tablet by mouth daily. [facility] atorvastati n 40 mg tablet 09-14 00:00: 00 Yes [id number] 40mg Take 1 tablet by mouth at bedtime. [facility] carvediloL 25 mg tablet 09-14 00:00: 00 Yes [id number] 37.5mg Take 1.5 tablets by mouth 2 (two) times daily with meals. [facility] furosemide 40 mg tablet 09-14 00:00: 00 Yes [id number] 40mg Take 1 tablet by mouth every morning and evening. [facility] lisinopriL 10 mg tablet 09-14 00:00: 00 Yes [id number] 30mg Take 3 tablets by mouth daily. [facility] spironolact one 25 mg tablet 09-14 00:00: 00 Yes [id number] 25mg Take 1 tablet by mouth daily. [facility] aspirin 81 mg chewable tablet -19 00:00: 00 09-14 00:00 :00 No [id number] 81mg Take 1 tablet by mouth daily for 180 days. [facility] lisinopriL 10 mg tablet 08-22 00:00: 00 09-14 00:00 :00 No [id number] 30mg Take 3 tablets by mouth daily for 180 days. [facility] spironolact one 25 mg tablet 08-22 00:00: 00 09-14 00:00 :00 No [id number] 25mg Take 1 tablet by mouth daily [...] 08-21 00:00: 00 09-14 00:00 :00 No [id number] 40mg Take 1 tablet by mouth at bedtime for 180 days. [facility] furosemide 40 mg tablet 08-21 00:00: 00 09-14 00:00 :00 No [id number] 40mg Take 1 tablet by mouth every morning and evening for 180 days. [facility] carvediloL 25 mg tablet 08-21 00:00: 00 09-14 00:00 :00 No [id number] 37.5mg Take 1.5 tablets by mouth 2 (two) times daily with meals for 180 days. [facility] carvediloL 25 mg tablet 08-21 00:00: 00 08-21 00:00 :00 No [id number] 25mg Take 1 tablet by mouth 2 [...] On Sat08/19/21 at 1000, [facility] ed, Routine, SBP >180 [facility] lisinopriL (PRINIVIL,Z ESTRIL) tablet 10 mg 08-18 [...] at 1647, Routine, SBP >180 [facility] sulfur hexafluorid e microsphr (LUMASON) injection 5 mL 08-17 20:45: 00 08-17 20:45 :00 No [id number] 5mL 5 mL, Intravenou s, ONCE, 1 dose, On Sat08/17/21 at 1545, Routine
food service team member approving Restricted medication : [...] 08/17/21 at 1315, Routine [facility] furosemide (LASIX) injection 40 mg 08-17 17:15: 00 08-18 12:42 :25 No 40mg 40 mg, Slow IV Push, Q12H, First dose on Viktoriya 08/17/21 at 1215, Until Discontinu ed, Routine [facility] [...] Systolic blood pressure 2024-06-02 06:00:00 183 mm[Hg] [facility] Diastolic blood pressure 2024-06-02 06:00:00 132 mm[Hg] [facility] Heart rate 2024-06-02 05:18:00 82 /min [facility] Body temperature 2024-06-02 05:18:00 37 Anastasiia [facility] Respiratory rate 2024-06-02 05:18:00 20 /min [facility] Oxygen saturation in Arterial blood by Pulse oximetry 2024-06-02 05:18:00 100 /min [facility] Body height 2024-06-02 03:39:00 182.9 cm [facility] Body weight 2024-06-02 03:39:00 102.377 kg [facility] BMI 2024-06-02 03:39:00 30.61 kg/m2 [facility] Systolic blood pressure 2021-12-06 17:40:07 158 mm[Hg] [facility] Diastolic blood pressure 2021-12-06 17:40:07 105 mm[Hg] [facility] Heart rate 2021-12-06 15:43:00 91 /min [facility] Respiratory rate 2021-12-06 15:43:00 20 /min [facility] Oxygen saturation in Arterial blood by Pulse oximetry 2021-12-06 15:43:00 97 /min [facility] Body temperature 2021-12-06 14:49:00 36.61 Anastasiia [facility] Body height 2021-12-06 14:49:00 182.9 cm [facility] Body weight 2021-12-06 14:49:00 99.791 kg [facility] BMI 2021-12-06 14:49:00 29.84 kg/m2 [facility] Systolic blood pressure 2021-08-21 20:39:00 143 mm[Hg] [facility] Diastolic blood pressure 2021-08-21 20:39:00 104 mm[Hg] [facility] Heart rate 2021-08-21 20:39:00 79 /min [facility] Body temperature 2021-08-21 20:39:00 36 Anastasiia [facility] Respiratory rate 2021-08-21 20:39:00 18 /min [facility] Oxygen saturation in Arterial blood by Pulse oximetry 2021-08-21 20:39:00 99 /min [facility] Body weight 2021-08-21 10:57:00 104.055 kg [facility] BMI 2021-08-21 10:57:00 31.11 kg/m2 [facility] Body height 2021-08-18 10:31:00 182.9 cm [facility] Procedures Procedure Date / Time Performed Performing Clinician Source NOTICE OF PRIVACY PRACTICES 2021-12-06 14:38:21 Doctor Unassigned, [place] [facility] CONSENT/REFUSAL FOR DIAGNOSIS AND TREATMENT 2021-12-06 14:38:03 Doctor Unassigned, [place] [facility] AUTHORIZATION FOR RELEASE OF PHI 2021-09-01 05:01:00 Doctor Unassigned, [place] [facility] MAGNESIUM 2021-08-21 08:42:00 Eryn Cowart [facility] BASIC METABOLIC PANEL (NA, K, CL, CO2, GLUCOSE, BUN, CREATININE, CA) 2021-08-21 08:42:00 Supa [facility] N-TERMINAL PRO-BNP 2021-08-21 08:42:00 Gaston Elizabeth [facility] HB ECG ROUTINE & RHYTHM STRIP 2021-08-20 13:02[facility] 2021-08-20 09:22:00 Letty March [facility] BASIC METABOLIC PANEL (NA, K, CL, CO2, GLUCOSE, BUN, CREATININE, CA) 2021-08-20 09:22:00 [facility] 2021-08-20 09:22:00 Letty March [facility] HB ECG ROUTINE & RHYTHM STRIP 2021-08-19 13:08:08 [facility] 2021-08-19 10:21:00 Gaston Elizabeth [facility] BASIC METABOLIC PANEL (NA, K, CL, CO2, GLUCOSE, BUN, CREATININE, CA) 2021-08-19 10:21:00 Gaston Elizabeth [facility] BASIC METABOLIC PANEL (NA, K, CL, CO2, GLUCOSE, BUN, CREATININE, CA) 2021-08-18 19:41:00 Supa [facility] HB ECG ROUTINE & RHYTHM STRIP 2021-08-18 14:50:24 Supa [facility] MAGNESIUM 2021-08-18 09:10[facility] (NA, K, CL, CO2, GLUCOSE, BUN, CREATININE, CA) 2021-08-18 09:10:00 Supa [facility] CBC WITH DIFF 2021-08-18 09:10:00 Supa [facility] TROPONIN I 2021-08-17 23:58:00 Supa [facility] TRANSTHORACIC ECHO (TTE) COMPLETE W/ CONTRAST 2021-08-17 18:53:00 Supa [facility] PHOSPHORUS 2021-08-17 15:43[facility] 2021-08-17 15:43:00 Supa [facility] FERRITIN SERUM 2021-08-17 15:43:00 Eryn Cowart [facility] TROPONIN I 2021-08-17 15:43:00 Supa [facility] THYROID STIMULATING HORMONE 2021-08-17 15:43:00 Supa [facility] HEPATIC FUNCTION PANEL ([id number]) (ALB,T.PRO,BILI T,BU/BC,ALT,AST,ALK PHOS) 2021-08-17 15:43:00 Supa [facility] BASIC METABOLIC PANEL (NA, K, CL, CO2, GLUCOSE, BUN, CREATININE, CA) 2021-08-17 15:43:00 Supa [facility] IRON PANEL 2021-08-17 15:43:00 Supa [facility] CBC WITH DIFF 2021-08-17 15:43:00 Supa [facility] GLYCOSYLATED HEMOGLOBIN (A1C) 2021-08-17 15:43:00 Eryn Cowart [facility] N-TERMINAL PRO-BNP 2021-08-17 15:43:00 Eryn Cowart [facility] XR CHEST 1 VW 2021-08-17 15:10:00 Eryn Cowart [facility] EXTERNAL PROVIDER RECORDS 2016-11-23 05:01:00 Doctor Unassigned, [place] [facility] DAY SURGERY - ADC 2016-11-23 05:01:00 Doctor Ivonne ssigned, [place] [facility] Encounters Start Date/Time End Date/Time Encounter Type Admission Type Attending Clinicians Care Facility Care Department Encounter ID Source 2024-08-03 13:47:27 2024-08-03 13:47:27 Outpatient [facility] [id number] Philippe Bairon 2016-11-23 00:00:00 2024-06-20 03:42:57 Orders Only Doctor Unassigned, [place] Doctor Unassigned, [place] [facility] 1.2.840.114 350.1.13.10 4.2.7.2.686 [id number] [facility] 2024-06-10 00:00:00 2024-06-10 11:09:01 Letter (Out) Campaigns, Generic Provider Campaigns, Generic Provider [facility] ([facility] 1.2.840.114 350.1.13.10 4.2.7.2.686 [id number] [facility] 2024-06-01 21:44:00 2024-06-02 00:17:00 Emergency X MIGDALIA VILLEGAS SHINTA [facility] ERT [id number] [facility] 2024-06-01 21:44:00 2024-06-02 00:17:00 Emergency Migdalia Villegas [facility] 1.2.840.114 350.1.13.10 4.2.7.2.686 [id number] [facility] 2024-03-30 10:06:11 2024-03-30 10:06:11 Outpatient [facility] [id number] W[address]ell 2022-08-17 00:00:00 2022-08-17 00:00:00 [facility]114 350.1.13.10 4.2.7.2.686 [id number] [facility] 2021-12-06 09:51:00 2021-12-06 13:09:00 Emergency Tameka Novoa [facility] 1..114 350.1.13.10 4.2.7.2.686 [id number] [facility] 2021-12-06 09:51:00 2021-12-06 13:09:00 Emergency X Tameka NOVOA [facility] ERT [id number] [facility] 2021-12-06 00:00:00 2021-12-06 00:00:00 Orders Only Doctor Unassigned, [place] [facility] 1..114 350.1.13.10 4.2.7.2.686 [id number] [facility] 2021-09-14 00:00:00 2021-09-14 00:00:[address] [facility]..114 350.1.13.10 4.2.7.2.686 [id number] [facility] 2021-09-12 00:00:00 2021-09-12 00:00:00 Telephone Basim Cota [facility] MEDICAL OFFICE BUILDING 1..114 350.1.13.10 4.2.7.2.686 [id number] [facility] 2021-09-01 00:00:00 2021-09-01 00:00:00 Telephone Khalife, [facility] 1.2840.114 350.1.13.10 4.2.7.2.686 [id number] [facility] 2021-09-01 00:00:00 2021-09-01 00:00:00 Orders Only Doctor Unassigned, [place] [facility] 1.2840.114 350.1.13.10 4.2.7.2.686 [id number] [facility] 2021-08-30 00:00:00 2021-08-30 00:00:00 [address] [facility] 1.840.114 350.1.13.10 4.2.7.2.686 [id number] [facility] 2021-08-22 00:00:00 2021-08-22 00:00:00 Transition of Care Sherrell Neumann 1.840.114 350.1.13.10 4.2.7.2.686 [id number] [facility] 2021-08-17 08:35:00 2021-08-21 17:42:00 Inpatient U [facility] [id number] [facility] 2021-08-17 08:35:00 2021-08-21 17:42:00 Hospital Encounter Basim Cota SanzDimitrios Douglass [facility] 1.840.114 350.1.13.10 4.2.7.2.686 [id number] [facility] 2021-08-18 00:00:00 2021-08-18 00:00:00 Telephone Dimitrios Abel [facility] 1.2840.114 350.1.13.10 4.2.7.2.686 [id number] [facility] Results Test Description Test Time Test Comments Results Result Co mments Source [facility] METABOLIC PANEL (NA, K, CL, CO2, GLUCOSE, BUN, CREATININE, CA)2021-08-21 10:07:34* Test Item Value Reference Range Interpretation Comme nts NA (test code = 0740310784) 135 mmol/L 135-145 K (test code = 8949838394) 4.4 mmol/L 3.5-5.0 CL (test code = 9374168186) 102 mmol/L 98-108 CO2 TOTAL (test code = 0496579481) 26 mmol/L 23-31 AGAP (test code = 6002572881) 2-16 BUN (test code = 6913863614) 27 mg/dL 7-23 H GLUCOSE (test code = 9230346745) 104 mg/dL 70-110 CREATININE (test code = 5396175913) 1.49 mg/dL 0.60-1.25 H CALCIUM (test code = 6762557202) 9.0 mg/dL 8.6-10.6 eGFR (test code = 3516676744) mL/min/1.73m2 EBEN (test code = EBEN) Association [...] imaging tests). Lab Interpretation (test code = 63872-9) [facility] 10:07:34* Test Item Value Reference Range Interpretation Comme nts MAGNESIUM (test code = 2249243998) 1.9 mg/dL 1.7-2.4 Lab Interpretation (test cod e = 16580-2) [facility] (NA, K, CL, CO2, GLUCOSE, BUN, CREATININE, CA)2021-08-20 10:22:59* Test Item Value Reference Range Interpretation Comme nts NA (test code = 0296917104) 137 mmol/L 135-145 K (test code = 0404985136) 4.4 mmol/L 3.5-5.0 CL (test code = 1227493117) 102 mmol/L 98-108 CO2 TOTAL (test code = 3960086776) 26 mmol/L 23-31 AGAP (test code = 7295212581) 2-16 BUN (test code = 6187126323) 31 mg/dL 7-23 H GLUCOSE (test code = 5264436208) 119 mg/dL 70-110 H CREATININE (test code = 9024435828) 1.56 mg/dL 0.60-1.25 H CALCIUM (test code = 1679868264) 9.1 mg/dL 8.6-10.6 eGFR (test code = 4425986503) mL/min/1.73m2 EBEN (test code = EBEN) Association [...] imaging tests). Lab Interpretation (test code = 14924-2) [facility] 10:22:59* Test Item Value Reference Range Interpretation Comme nts MAGNESIUM (test code = 4709927536) 2.1 mg/dL 1.7-2.4 Lab Interpretation (test cod e = 49436-8) Normal [facility] WITH [id number] 09:42:15* Test Item Value Reference Range Interpretation Comme nts WBC (test code = 6690-2) See_Comment H [Automated [employer]] The system which generated this result transmitted reference range: 4.20 - 10.70 10*3/?L. The reference range was not used to interpret this result as normal/abnormal. RBC (test code = 789-8) See_Comment [Automated [employer]] The system which generated this result transmitted [...] 32.8 g/dL 31.2-35.0 RDW-SD (test code = 18972-6) 39.3 fL 38.5-51.6 RDW-CV (test code = 788-0) 12.5 % 12.1-15.4 PLT (test code = 777-3) See_Comment H [Automated messa ge] The system which generated this result transmitted reference range: 150 - 328 10*3/?L. The reference range was not used to interpret this result as normal/abnormal. MPV (test code = 18333-9) 9.3 fL 9.8-13.0 L NRBC/100 WBC (test code = 4665202070) See_Comment [Automated [employer] ssage] The system which generated this result transmitted reference range: 0.0 - 10.0 /100 WBCs. The reference range was not used to interpret this result as normal/abnormal. NRBC x10^3 (test code = 4688951515) <0.01 See_Comment [Automated messa ge] The system which generated this result transmitted reference range: 10*3/?L. The reference range was not used to interpret this result as normal/abnormal. GRAN MAT (NEUT) % (test code = 770-8) 60.5 % IMM GRAN % (test code = 5009676582) 0.30 % LYMPH % (test code = 736-9) 26.7 % MONO % (test code = 5905-5) 8.3 % EOS % (test code = 713-8) 3.4 % BASO % (test code = 706-2) 0.8 % GRAN MAT x10^3(ANC) (test code = 1642811097) 7.17 10*3/uL 1.99-6.95 H IMM GRAN x10^3 (test code = 5281110083) 0.03 10*3/uL 0.00-0.06 LYMPH x10^3 (test code = 731-0) 3.16 10*3/uL 1.09-3.23 MONO x10^3 (test code = 742-7) 0.98 10*3/uL 0.36-1.02 EOS x10^3 (test code = 711-2) 0.40 10*3/uL 0.06-0.53 BASO x10^3 (test code = 704-7) 0.10 10*3/uL 0.01-0.09 H Lab Interpretation (test code = 62219-3) Abnormal [facility] METABOLIC PANEL (NA, K, CL, CO2, GLUCOSE, BUN, CREATININE, CA)2021-08-19 10:52:12* Test Item Value Reference Range Interpretation Comme nts NA (test code = 0808421213) 136 mmol/L 135-145 K (test code = 4220899579) 3.8 mmol/L 3.5-5.0 CL (test code = 1120493753) 100 mmol/L 98-108 CO2 TOTAL (test code = 7214356557) 29 mmol/L 23-31 AGAP (test code = 1877001295) 2-16 BUN (test code = 4501665081) 32 mg/dL 7-23 H GLUCOSE (test code = 1354516325) 115 mg/dL 70-110 H CREATININE (test code = 9489274715) 1.67 mg/dL 0.60-1.25 H CALCIUM (test code = 7197720466) 9.1 mg/dL 8.6-10.6 eGFR (test code = 1924763874) mL/min/1.73m2 EBEN (test code = EBEN) Association [...] imaging tests). Lab Interpretation (test code = 06123-1) [facility] 10:52:12* Test Item Value Reference Range Interpretation Comme nts MAGNESIUM (test code = 9336942261) 1.9 mg/dL 1.7-2.4 Lab Interpretation (test cod e = 68806-0) [facility] (NA, K, CL, CO2, GLUCOSE, BUN, CREATININE, CA)2021-08-18 21:19:06* Test Item Value Reference Range Interpretation Comme nts NA (test code = 3786366055) 135 mmol/L 135-145 K (test code = 1269211038) 3.9 mmol/L 3.5-5.0 CL (test code = 0064306556) 98 mmol/L 98-108 CO2 TOTAL (test code = 4058689916) 30 mmol/L 23-31 AGAP (test code = 3033269838) 2-16 BUN (test code = 9349315091) 29 mg/dL 7-23 H GLUCOSE (test code = 2256824191) 121 mg/dL 70-110 H CREATININE (test code = 6609196617) 1.58 mg/dL 0.60-1.25 H CALCIUM (test code = 9979456313) 8.9 mg/dL 8.6-10.6 eGFR (test code = 7633700439) mL/min/1.73m2 EBEN (test code = EBEN) Association [...] imaging tests). Lab Interpretation (test code = 65785-8) [facility] (NA, K, CL, CO2, GLUCOSE, BUN, CREATININE, CA)2021-08-18 10:04:44* Test Item Value Reference Range Interpretation Comme nts NA (test code = 9871646714) 135 mmol/L 135-145 K (test code = 7229318957) 4.0 mmol/L 3.5-5.0 Slight hemolysis CL (test code = 4070678199) 101 mmol/L 98-108 CO2 TOTAL (test code = 0459536756) 29 mmol/L 23-31 AGAP (test code = 4771927827) 2-16 BUN (test code = 7657281322) 32 mg/dL 7-23 H Slight hemolysis GLUCOSE (test code = 1371491167) 114 mg/dL 70-110 H CREATININE (test code = 9739282917) 1.54 mg/dL 0.60-1.25 H CALCIUM (test code = 7529574682) 8.8 mg/dL 8.6-10.6 eGFR (test code = 4716002045) mL/min/1.73m2 EBEN (test code = EBEN) Association [...] imaging tests). Lab Interpretation (test code = 23845-8) [facility] 10:04:44* Test Item Value Reference Range Interpretation Comme nts MAGNESIUM (test code = 7715339075) 2.2 mg/dL 1.7-2.4 Lab Interpretation (test cod e = 03410-0) Normal [facility] WITH [id number] 09:24:38* Test Item Value Reference Range Interpretation Comme nts WBC (test code = 6690-2) See_Comment [Automated [employer]] The system which generated this result transmitted reference range: 4.20 - 10.70 10*3/?L. The reference range was not used to interpret this result as normal/abnormal. RBC (test code = 789-8) See_Comment [Automated [employer]] The system which generated this result transmitted [...] 33.3 g/dL 31.2-35.0 RDW-SD (test code = 45556-7) 39.1 fL 38.5-51.6 RDW-CV (test code = 788-0) 12.6 % 12.1-15.4 PLT (test code = 777-3) See_Comment H [Automated messa ge] The system which generated this result transmitted reference range: 150 - 328 10*3/?L. The reference range was not used to interpret this result as normal/abnormal. MPV (test code = 22759-2) 9.5 fL 9.8-13.0 L NRBC/100 WBC (test code = 5662201917) See_Comment [Automated [employer] ssage] The system which generated this result transmitted reference range: 0.0 - 10.0 /100 WBCs. The reference range was not used to interpret this result as normal/abnormal. NRBC x10^3 (test code = 8573984770) <0.01 See_Comment [Automated messa ge] The system which generated this result transmitted reference range: 10*3/?L. The reference range was not used to interpret this result as normal/abnormal. GRAN MAT (NEUT) % (test code = 770-8) 65.3 % IMM GRAN % (test code = 0809035200) 0.20 % LYMPH % (test code = 736-9) 23.3 % MONO % (test code = 5905-5) 7.0 % EOS % (test code = 713-8) 3.5 % BASO % (test code = 706-2) 0.7 % GRAN MAT x10^3(ANC) (test code = 3955766093) 6.63 10*3/uL 1.99-6.95 IMM GRAN x10^3 (test code = 3477713940) <0.03 0.00-0.06 LYMPH x10^3 (test code = 731-0) 2.36 10*3/uL 1.09-3.23 MONO x10^3 (test code = 742-7) 0.71 10*3/uL 0.36-1.02 EOS x10^3 (test code = 711-2) 0.35 10*3/uL 0.06-0.53 BASO x10^3 (test code = 704-7) 0.07 10*3/uL 0.01-0.09 Lab Interpretation (test code = 87755-5) [facility]2021-08-18 02:37:07* Test Item Value Reference Range Interpretation Comme nts HGB A1C (test code = 4548-4) 5.8 % 4.0-5.7 H EBEN (test code = EBEN) Reference RangesNormal: <5.7%Prediabetes: 5.7 - 6.4%Diabetes: > 6.5% Lab Interpretation (test code = 67789-6) [facility] [id number] 01:03:37* Test Item Value Reference Range Interpretation Comments TROPONIN I (test code = 2709466390) 0.101 ng/mL See_Comment H [Automated message] The [...] of biotin. Lab Interpretation (test code = 48131-0) [facility]2021-08-17 22:14:20* Test Item Value Reference Range Interpretation Comme nts Ao root annulus (test code = 1564562020) 3.3 cm Ao root diam (test code = 8182081843) 3.30 cm Aortic root (test code = 9795355123) 3.3 cm LA size (test code = 0683987492) 3.7 cm LVOT diameter (test code = 1344028139) 2.00 cm LVIDD (test code = 4409996572) 5.90 cm IVS (test code = 4957097907) 1.26 cm Interventricular Septum Diastolic Thickness by 2D (test code = 5817001) 1.26 cm LVPWD (test code = 8321313869) 1.19 cm PW (test code = 5470521635) 1.19 cm 0.6-1.1 EF(Teich) (test code = 6373837063) 46.60 % LVIDS (test code = 2416929119) 4.50 cm FS (test code = 2593733077) 24 % EF - 2D (test code = 31429898) 46.60 % LAV(MOD-sp4) (test code = 2885987620) 65.30 mL MV Peak E Narciso (test code = 7413011347) 126.4 cm/s E wave decelartion time (test code = 9411684170) 0.14 s MV Prop V (test code = 9834222152) 35.00 cm/s LVOT stroke volume (test code = 8070212909) 45.10 cm3 LVOT peak narciso (test code = 7482025124) 90.0 cm/s LVOT mn grad (test code = 4158162975) mmHg AV LVOT peak gradient (test code = 7218326729) mmHg LVOT peak VTI (test code = 8623927710) 14.4 cm LV V1 mean (test code = 5393875369) 63.00 cm/s Aortic valve mean velocity (test code = 4778841479) 76.8 cm/s Ao peak narciso (test code = 4447820427) 125.5 cm/s Ao VTI (test code = 6835960353) 17.0 cm AV area by cont VTI (test code = 6234671218) 2.6 cm2 AV area peak narciso (test code = 7855169468) 2.2 cm2 Ao max PG (test code = 3890579060) 6.30 mm[Hg] AV peak gradient (test code = 9394073277) mmHg AV valve area (test code = 5618080228) 2.60 cm2 AV mean gradient (test code = 5648162285) mmHg TR Peak Narciso (test code = 6681458631) 119.4 cm/s Triscuspid Valve Regurgitation Peak Gradient (test code = 8539473757) mmHg Tapse (test code = 2580088737) 1.95 cm LA volume (BP) (test code = 2477266546) 73.5 mL LAV(MOD-sp2) (test code = 8340823860) 74.00 mL LA Volume Index (BP) (test code = 3547493137) 32.5 mL/m2 LV Diastolic Volume (BP) (test code = 7499734171) 232.2 mL EF(MOD-bp) (test code = 2945495185) 33.10 % LV Systolic Volume (BP) (test code = 8641367158) 155.2 mL SV(MOD-bp) (test code = 9003080207) 76.90 mL EF (test code = 3668931882) 33 % Left Ventricular Stroke Volume by 2-D Biplane-MOD (test code = 1521367) 76.9 mL Radiology Study observation (narrative) (test code = 62897-5) EBEN (test code = EBEN) ?Left?Ventricle: Left [...] (104.3 kg) 2.3 sq meters 183/126 [facility] (ALB,T.PRO,BILI T,BU/BC,ALT,AST,ALK PHOS)2021-08-17 17:59:20* Test Item Value Reference Range Interpretation Comme nts TOTAL BILI (test code = 7346934267) 0.4 mg/dL 0.1-1.1 BILI UNCON (test code = 7114749408) 0.4 mg/dL 0.1-1.1 BILI CONJ (test code = 3304711971) 0.0 mg/dL 0.0-0.3 T PROTEIN (test code = 0446804582) 6.4 g/dL 6.3-8.2 ALBUMIN (test code = 4779253276) 3.7 g/dL 3.5-5.0 ALK PHOS (test code = 2544077033) 64 U/L 34-122 ALTv (test code = 1742-6) 39 U/L 5-50 AST(SGOT) (test code = 2806778337) 30 U/L 13-40 Lab Interpretation (test cod e = 54301-6) Normal [facility] [id number] 17:21:19* Test Item Value Reference Range Interpretation Comme nts FERRITIN (test code = 2158816650) 29.7 ng/mL 18.0-464.0 EBEN (test code = EBEN) Biotin has been reported to cause a negative bias, interpret results relative to patient's use of biotin. Lab Interpretation (test code = 67387-9) [facility]ATING [id number] 17:14:24 * Test Item Value Reference Range Interpretation Comme nts TSH (test code = 4398318077) See_Comment [Automated [employer] ge] The system which generated this result transmitted reference range: 0.45 - 4.70 mIU/L. The reference range was not used to interpret this result as normal/abnormal. Lab Interpretation (test code = 43235-4) [facility] [id number] 16:55:55* Test Item Value Reference Range Interpretation Comme nts NT-proBNP (test code = 2416103167) 5070 pg/mL See_Comment H [Automated message] The system which generated this result transmitted reference range: <=125. The reference range was not used to interpret this result as normal/abnormal. EBEN (test code = EBEN) Biotin has been reported to cause a negative bias, interpret results relative to patient's use of biotin. Lab Interpretation (test code = 25487-5) [facility]normal [facility]TR[facility] [id number] 16:55:55* Test Item Value Reference Range Interpretation Comments TROPONIN I (test code = 4459178918) 0.117 ng/mL See_Comment H [Automated message] The [...] of biotin. Lab Interpretation (test code = 94055-6) [facility]ano[facility]ON [id number] 16:52:53* Test Item Value Reference Range Interpretation Comme nts IRON (test code = 0241055159) 51 ug/dL 50-160 TIBC (test code = 4117443421) 298 ug/dL 250-410 % FE SAT (test code = 8935783489) 17 % 20-50 L Lab Interpretation (test cod e = 97941-9) [facility]2022-04-14 16:41:35* Test Item Value Reference Range Interpretation Comme nts MAGNESIUM (test code = 3846166229) 1.6 mg/dL 1.7-2.4 L Lab Interpretation (test cod e = 21558-2) [facility]normal [facility]PHOS[facility]US2022-04-14 16:41:35* Test Item Value Reference Range Interpretation Comme nts PHOSPHORUS (test code = 1860217124) 4.0 mg/dL 2.5-5.0 Lab Interpretation (test cod e = 72904-0) [facility]OL[facility] PANEL (NA, K, CL, CO2, GLUCOSE, BUN, CREATININE, CA)2021-08-17 16:41:35* Test Item Value Reference Range Interpretation Comme nts NA (test code = 9887246974) 134 mmol/L 135-145 L K (test code = 2700713482) 3.6 mmol/L 3.5-5.0 CL (test code = 5065727654) 99 mmol/L 98-108 CO2 TOTAL (test code = 2745921603) 32 mmol/L 23-31 H AGAP (test code = 2361329327) 2-16 BUN (test code = 5851182130) 24 mg/dL 7-23 H GLUCOSE (test code = 8119993186) 111 mg/dL 70-110 H CREATININE (test code = 9366111527) 1.60 mg/dL 0.60-1.25 H CALCIUM (test code = 5372806534) 8.8 mg/dL 8.6-10.6 eGFR (test code = 8040444062) mL/min/1.73m2 EBEN (test code = EBEN) Association [...] imaging tests). Lab Interpretation (test code = 89466-9) Abnormal [facility] WITH [id number] 16:00:05* Test Item Value Reference Range Interpretation [...] 33.7 g/dL 31.2-35.0 RDW-SD (test code = 66613-3) 39.5 fL 38.5-51.6 RDW-CV (test code = 788-0) 12.6 % 12.1-15.4 PLT (test code = 777-3) See_Comment H [Automated messa ge] The system which generated this result transmitted reference range: 150 - 328 10*3/?L. The reference range was not used to interpret this result as normal/abnormal. MPV (test code = 37926-6) 9.4 fL 9.8-13.0 L NRBC/100 WBC (test code = 1762519164) See_Comment [Automated [employer] ssage] The system which generated this result transmitted reference range: 0.0 - 10.0 /100 WBCs. The reference range was not used to interpret this result as normal/abnormal. NRBC x10^3 (test code = 7576701199) <0.01 See_Comment [Automated messa ge] The system which generated this result transmitted reference range: 10*3/?L. The reference range was not used to interpret this result as normal/abnormal. GRAN MAT (NEUT) % (test code = 770-8) 65.6 % IMM GRAN % (test code = 9984766950) 0.20 % LYMPH % (test code = 736-9) 23.8 % MONO % (test code = 5905-5) 6.7 % EOS % (test code = 713-8) 3.2 % BASO % (test code = 706-2) 0.5 % GRAN MAT x10^3(ANC) (test code = 4637049474) 6.58 10*3/uL 1.99-6.95 IMM GRAN x10^3 (test code = 1765798904) <0.03 0.00-0.06 LYMPH x10^3 (test code = 731-0) 2.39 10*3/uL 1.09-3.23 MONO x10^3 (test code = 742-7) 0.67 10*3/uL 0.36-1.02 EOS x10^3 (test code = 711-2) 0.32 10*3/uL 0.06-0.53 BASO x10^3 (test code = 704-7) 0.05 10*3/uL 0.01-0.09 Lab Interpretation (test code = 88986-5) Abnormal [facility] Notes Date/Time Note Provider Source 2024-06-02 00:15:00 [...] steady gait, in no apparent distress, A [facility] 2024-06-01 21:38:46 Patient arrived ambulatory to ED c/o right foot gout pain that started last night. Patient states being d/c from [place] with prescriptions about 30 minutes ago. States normally gets a shot but they didn't give him one this time. Hx of HTN takes BP medications for it. A Ding RN [facility]"
--- NOTE | 2024-12-18 17:24 | EDPHYS ---
Physician Documentation [facility] Name: Ezequiel Padron Age: 39 yrs Sex: Male : 1985 Arrival Date: 12/18/2024 Time: 16:09 Bed 13 Private MD: ED Physician Baldemar Harden HPI: 12/18 17:18 This 39 yrs old Black Male presents to ER via Ambulatory with complaints of Foot Pain - bernabe right. 17:18 The patient presents with decreased range of motion, pain, that is acute. The bernabe complaints affect the right foot. Context: The problem was sustained at an unknown location, resulted from an unknown cause. Onset: The symptoms/episode began/occurred 3 day(s) ago. Modifying factors: The symptoms are alleviated by nothing, the symptoms are aggravated by weight bearing. Associated signs and symptoms: The patient has no apparent associated signs or symptoms. The patient has experienced similar episodes in the past, multiple times. Historical: - Allergies: 16:30 Nitroglycerin; ll1 - PMHx: 16:30 Congestive heart failure; Gout; Hypertensive disorder; ll1 - Immunization history:: Adult Immunizations up to date. - Infectious Disease History:: Denies. - Social history:: Smoking status: Patient denies any tobacco usage or history of. - Family history:: not pertinent. ROS: 17:18 Constitutional: Negative for fever, chills, and weight loss, Eyes: Negative for injury, bernabe pain, redness, and discharge, ENT: Negative for injury, pain, and discharge, Neck: Negative for injury, pain, and swelling, Cardiovascular: Negative for chest pain, palpitations, and edema, Respiratory: Negative for shortness of breath, cough, wheezing, and pleuritic chest pain, Abdomen/GI: Negative for abdominal pain, nausea, vomiting, diarrhea, and constipation, Back: Negative for injury and pain, : Negative for injury, bleeding, discharge, and swelling, Skin: Negative for injury, rash, and discoloration, Neuro: Negative for headache, weakness, numbness, tingling, and seizure, Psych: Negative for depression, anxiety, suicide ideation, homicidal ideation, and hallucinations, Allergy/Immunology: Negative for hives, rash, and allergies, Endocrine: Negative for neck swelling, polydipsia, polyuria, polyphagia, and marked weight changes, Hematologic/Lymphatic: Negative for swollen nodes, abnormal bleeding, and unusual bruising, 17:18 MS/extremity: Positive for decreased range of motion, pain, swelling, of the right foot, Exam: 17:18 Constitutional: This is a well developed, well nourished patient who is awake, alert, bernabe and in no acute distress. Head/Face: Normocephalic, atraumatic. Eyes: Pupils equal round and reactive to light, extra-ocular motions intact. Lids and lashes normal. Conjunctiva and sclera are non-icteric and not injected. Cornea within normal limits. Periorbital areas with no swelling, redness, or edema. ENT: Nares patent. No nasal discharge, no septal abnormalities noted. Tympanic membranes are normal and external auditory canals are clear. Oropharynx with no redness, swelling, or masses, exudates, or evidence of obstruction, uvula midline. Mucous membranes moist. Neck: Trachea midline, no thyromegaly or masses palpated, and no cervical lymphadenopathy. Supple, full range of motion without nuchal rigidity, or vertebral point tenderness. No Meningismus. Chest/axilla: Normal chest wall appearance and motion. Nontender with no deformity. No lesions are appreciated. Cardiovascular: Regular rate and rhythm with a normal S1 and S2. No gallops, murmurs, or rubs. Normal PMI, no JVD. No pulse deficits. Respiratory: Lungs have equal breath sounds bilaterally, clear to auscultation and percussion. No rales, rhonchi or wheezes noted. No increased work of breathing, no retractions or nasal flaring. Abdomen/GI: Soft, non-tender, with normal bowel sounds. No distension or tympany. No guarding or rebound. No evidence of tenderness throughout. Back: No spinal tenderness. No costovertebral tenderness. Full range of motion. Male : Normal genitalia with no discharge or lesions. Skin: Warm, dry with normal turgor. Normal color with no rashes, no lesions, and no evidence of cellulitis. Neuro: Awake and alert, GCS 15, oriented to person, place, time, and situation. Cranial nerves II-XII grossly intact. Motor strength 5/5 in all extremities. Sensory grossly intact. Cerebellar exam normal. Normal gait. Psych: Awake, alert, with orientation to person, place and time. Behavior, mood, and affect are within normal limits. 17:18 Musculoskeletal/extremity: ROM: no acute changes, Pulses: noted to be 4+ in the bilateral radial, brachial, femoral, popliteal, posterior tibial and and dorsalis pedis arteries., Sensation intact. Compartment Syndrome exam of affected extremity: is normal. Weight bearing: able to fully bear weight, without difficulty, DVT Exam: no pain, no swelling, no tenderness, negative Homans' sign noted on exam, no appreciated bluish discoloration, no erythema, no increased warmth, Calves: are non-tender, have equal circumference, Vital Signs: 16:28 BP 170 / 118; Pulse 98; Resp 19; Temp 97(TE); Pulse Ox 97% on R/A; Weight 104.33 kg; ll1 Height 6 ft. 2 in. ; Pain 10/10; 18:41 BP 185 / 123; Pulse 86; Resp 18 S; Pulse Ox 97% on R/A; Pain 8/10; kc6 19:00 BP 191 / 127; Pulse 80; Resp 18 S; Pulse Ox 97% on R/A; ss12 16:28 Body Mass Index 29.53 (104.33 kg, 187.96 cm) ll1 16:28 Pain Scale: Adult ll1 18:41 Pain Scale: Adult kc6 MDM: 16:13 Medical Screening Exam initiated [facility] 17:22 Differential diagnosis: fracture, sprain, penetrating trauma, arthritis, gout, bernabe cellulitis. Data reviewed: vital signs, nurses notes, radiologic studies. Consideration of Admission/Observation Escalation of care including admission/observation considered. I considered the following discharge prescriptions or medication management in the emergency department Medications were administered in the Emergency Department. See MAR. Independent interpretation of the following test(s) in the Emergency Department X-Ray: My interpretation is right foot neg. Test considered but Not performed: Labs: no cbc , cmp. Care significantly affected by the following chronic conditions: Congestive Heart Failure, gout, htn. 12/18 16:14 Order name: Foot Right 3 View XRAY; Complete Time: 18:52 [facility] Administered Medications: 17:51 Drug: Ketorolac IM 60 mg IM once Route: IM; Site: right ventrogluteal; [facility] 18:45 Follow up: Response: No adverse reaction; Pain is unchanged, physician notified [facility] 17:51 Drug: Dexamethasone IM 10 mg IM once Route: IM; Site: right deltoid; kc6 18:45 Follow up: Response: No adverse reaction kc6 17:51 Drug: [place] PO 10 mg-325 mg 1 tabs PO once Route: PO; kc6 18:45 Follow up: Response: No adverse reaction; Pain is unchanged, physician notified; RASS: kc6 Alert and Calm (0) 17:52 Drug: Colcrys PO 1.2 mg PO once Route: PO; kc6 18:45 Follow up: Response: No adverse reaction; Pain is unchanged, physician notified kc6 18:37 Drug: Colcrys PO 0.6 mg PO once; in 1 hour Route: PO; kc6 19:08 Follow up: Response: No adverse reaction ss12 18:52 Drug: Norvasc PO 10 mg PO once Route: PO; kc6 18:52 Drug: Metoprolol PO 100 mg PO once Route: PO; kc6 Disposition Summary: 12/18/24 17:24 Discharge Ordered Notes: Location: Home bernabe Problem: new bernabe Symptoms: have improved bernabe Condition: Stable bernabe Diagnosis - Gout, unspecified bernabe - Idiopathic gout, right ankle and foot bernabe - Essential (primary) hypertension bernabe Followup: bernabe - With: Private Physician - When: 2 - 3 days - Reason: Recheck today's complaints, Continuance of care, Re-evaluation by your physician Followup: bernabe - With: Hubert Parson MD - When: 2 - 3 days - Reason: Recheck today's complaints, Re-evaluation by your physician Discharge Instructions: - Discharge Summary Sheet bernabe - Gout bernabe - Low-Purine Eating Plan bernabe - Gout, [id number] [facility] Forms: - Medication Reconciliation Form bernabe - Antibiotic Education bernabe - Prescription Opioid Use bernabe - Patient Portal Instructions [facility] - Leadership Thank You Letter [facility] Prescriptions: - colchicine 0.6 mg Oral capsule - take 2 capsule ORAL route once take 2 tabs po as needed and 1 hour later give 1 bernabe tab, 3 tabs max per 24 hours; 21 capsule; Refills: 0, Product Selection Permitted - indomethacin 50 mg Oral capsule - take 1 capsule ORAL route 3 times per day administer with food or milk; 21 bernabe capsule; Refills: 0, Product Selection Permitted - Norvasc 10 mg Oral tablet - take 1 tablet ORAL route once daily; 20 tablet; Refills: 0, Product Selection bernabe Permitted - Toprol XL 50 mg Oral Tablet - take 1 tablet ORAL route once daily; 20 tablet; Refills: 0, Product Selection [facility] Permitted - Tylenol-Codeine #3 300mg-30mg Oral tablet - take 2 tablets ORAL route every 6 hours As needed; 26 tablet; Refills: 0, [facility] Product Selection Permitted - Dexamethasone 4mg Oral tablet - take 1 tablet ORAL route daily for 3 days; 3 tablet; Refills: 0, Product [facility] Selection Permitted Signatures: Dispatcher [employer] Baldemar Flower MD MD cha Lewis, Lynsay, RN RN ll1 Valarie Hernandez RN RN kc6 Ember Pa RN ss12 Corrections: (The following items were deleted from the chart) 16:14 16:14 Foot Right 3 View+RAD.RAD.BRZ ordered. [facility] 16:30 16:30 PMHx: Congestive heart failure; 1 [facility] 16:30 16:30 PSHx: R femur; 1 1
--- NOTE | 2024-12-18 17:24 | ER ---
Nurse's Notes [facility] Name: Ezequiel Padron Age: 39 yrs Sex: Male : 1985 Arrival Date: 12/18/2024 Time: 16:09 Bed 13 Private MD: Diagnosis: Gout, unspecified;Idiopathic gout, right ankle and foot;Essential (primary) hypertension Presentation: 12/18 16:28 Chief complaint: Patient states: R foot pain that started last night, has a Hx of gout, ll1 says he has been out of medications for a few days. Coronavirus screen: At this time, the client does not indicate any symptoms associated with coronavirus-19. Ebola Screen: Patient denies travel to an Ebola-affected area in the 21 days before illness onset. No symptoms or risks identified at this time. Initial Sepsis Screen: Does the patient meet any 2 criteria? No. Patient's initial sepsis screen is negative. Does the patient have a suspected source of infection? No. Patient's initial sepsis screen is negative. Risk Assessment: Do you want to hurt yourself or someone else? Patient reports no desire to harm self or others. Onset of symptoms was December 17, 2024. 16:28 Method Of Arrival: Ambulatory ll1 16:28 Acuity: HERMELINDA 4 ll1 Triage Assessment: 16:29 General: Appears uncomfortable, Behavior is calm, cooperative, appropriate for age. ll1 Pain: Complains of pain in right foot Quality of pain is described as aching. Musculoskeletal: Reports pain in right foot. Historical: - Allergies: 16:30 Nitroglycerin; ll1 - PMHx: 16:30 Congestive heart failure; Gout; Hypertensive disorder; ll1 - Immunization history:: Adult Immunizations up to date. - Infectious Disease History:: Denies. - Social history:: Smoking status: Patient denies any tobacco usage or history of. - Family history:: not pertinent. Screenin:24 [facility] ED Fall Risk Assessment (Adult) History of falling in the last 3 months, kc6 including since admission No falls in past 3 months (0 pts) Confusion or Disorientation No (0 pts) Intoxicated or Sedated No (0 pts) Impaired Gait No (0 pts) Mobility Assist Device Used No (0 pt) Altered Elimination No (0 pt) Score/Fall Risk Level 0 - 2 = Low Risk Oriented to surroundings. Abuse screen: Denies threats or abuse. Denies injuries from another. Nutritional screening: No deficits noted. Tuberculosis screening: No symptoms or risk factors identified. Assessment: 17:24 Reassessment: d/c pending foot xray. kc6 17:24 General: Appears in no apparent distress. comfortable, well groomed, well developed, kc6 Behavior is calm, cooperative, appropriate for age. Pain: Complains of pain in right foot Pain does not radiate. Pain currently is 10 out of 10 on a pain scale. Pain began 1 day ago. Is continuous, Alleviated by medications, rest, Aggravated by increased activity, weight bearing. Neuro: Level of Consciousness is awake, alert, obeys commands, Oriented to person, place, time, situation, Appropriate for age Speech is normal, Facial symmetry appears normal, Facial symmetry: tongue is midline, Denies blurred vision dizziness, headache. Cardiovascular: Denies chest pain, shortness of breath. Respiratory: Airway is patent Trachea midline Respiratory effort is even, unlabored, Respiratory pattern is regular, symmetrical. GI: No signs and/or symptoms were reported involving the gastrointestinal system. : No signs and/or symptoms were reported regarding the genitourinary system. EENT: No signs and/or symptoms were reported regarding the EENT system. Derm: No signs and/or symptoms reported regarding the dermatologic system. Skin is intact, is healthy with good turgor, Skin is pink, warm \\T\\ dry. Musculoskeletal: No signs and/or symptoms reported regarding the musculoskeletal system. Circulation, motion, and sensation intact. Range of motion: intact in all extremities. 18:24 Reassessment: Patient appears in no apparent distress at this time. No changes from kc6 previously documented assessment. Patient and/or family updated on plan of care and expected duration. Pain level reassessed. Patient is alert, oriented x 3, equal unlabored respirations, skin warm/dry/pink. Patient states symptoms have not improved. 18:46 Reassessment: MD made aware of patient BP at this time. patient states, "I'm in a lot kc6 of pain and haven't taken my medicine today." patient reports taking Metoprolol 100 mg PO once daily. 19:19 Reassessment: Patient appears in no apparent distress at this time. Patient and/or ss12 family updated on plan of care and expected duration. Pain level reassessed. Patient is alert, oriented x 3, equal unlabored respirations, skin warm/dry/pink. Vital Signs: 16:28 BP 170 / 118; Pulse 98; Resp 19; Temp 97(TE); Pulse Ox 97% on R/A; Weight 104.33 kg; ll1 Height 6 ft. 2 in. ; Pain 10/10; 18:41 BP 185 / 123; Pulse 86; Resp 18 S; Pulse Ox 97% on R/A; Pain 8/10; kc6 19:00 BP 191 / 127; Pulse 80; Resp 18 S; Pulse Ox 97% on R/A; ss12 16:28 Body Mass Index 29.53 (104.33 kg, 187.96 cm) ll1 16:28 Pain Scale: Adult ll1 18:41 Pain Scale: Adult kc6 ED Course: 16:11 Patient arrived in ED. im 16:13 Baldemar Harden MD is Attending Physician. [facility] 16:29 Triage completed. ll1 16:33 Arm band placed on Patient placed in an exam room, on a stretcher. ll1 16:35 Valarie Hernandez, SAMANTHA is Primary Nurse. kc6 17:08 Foot Right 3 View XRAY In Process Unspecified. EDMS 17:24 Patient has correct armband on for positive identification. Bed in low position. Call kc6 light in reach. Side rails up X 1. Pulse ox on. NIBP on. Door closed. Noise minimized. Lights dimmed. Warm blanket given. Pillow given. Verbal reassurance given. 17:24 Patient maintains SpO2 saturation greater than 95% on room air. [facility] 18:53 Hubert Parson MD is Referral Physician. [facility] 19:21 Provided Education on: plan of care. [facility] 19:21 No provider procedures requiring assistance completed. [facility] 19:21 Patient did not have IV access during this emergency room visit. [facility] Administered Medications: 17:51 Drug: Ketorolac IM 60 mg IM once Route: IM; Site: right ventrogluteal; 6 18:45 Follow up: Response: No adverse reaction; Pain is unchanged, physician notified 6 17:51 Drug: Dexamethasone IM 10 mg IM once Route: IM; Site: right deltoid; kc6 18:45 Follow up: Response: No adverse reaction kc6 17:51 Drug: Lena PO 10 mg-325 mg 1 tabs PO once Route: PO; kc6 18:45 Follow up: Response: No adverse reaction; Pain is unchanged, physician notified; RASS: kc6 Alert and Calm (0) 17:52 Drug: Colcrys PO 1.2 mg PO once Route: PO; kc6 18:45 Follow up: Response: No adverse reaction; Pain is unchanged, physician notified kc6 18:37 Drug: Colcrys PO 0.6 mg PO once; in 1 hour Route: PO; kc6 19:08 Follow up: Response: No adverse reaction ss12 18:52 Drug: Norvasc PO 10 mg PO once Route: PO; kc6 18:52 Drug: Metoprolol PO 100 mg PO once Route: PO; kc6 Medication: 19:21 VIS not applicable for this client. ss12 Outcome: 17:24 Discharge ordered by . bernabe 19:21 Discharged to home ambulatory, 12 19:21 Condition: stable 19:21 Discharge instructions given to patient, family, Instructed on discharge instructions, follow up and referral plans. Demonstrated understanding of instructions, follow-up care, Prescriptions given X 6 19:22 Patient left the ED. ss12 Signatures: Dispatcher [employer] EDMS Baldemar Harden MD MD cha Lewis, Lynsay, RN RN ll1 Valarie Hernandez RN RN kc6 Rosario Fontanez Shamaila, RN RN 12 Marlena Smith RN RN mf3 Corrections: (The following items were deleted from the chart) 16:30 16:30 PMHx: Congestive heart failure; ll1 ll1 16:30 16:30 PSHx: R femur; ll1 ll1 16:31 16:28 Chief complaint: Patient states: R foot pain that started last night, has a Hx of ll1 gout flare ups ll1 16:32 16:28 Chief complaint: Patient states: R foot pain that started last night, has a Hx of ll1 gout flare ups ll1 17:31 17:31 Reassessment: d/c pending foot xray kc6 kc6 18:42 18:09 Neuro: mf3 kc6
--- NOTE | 2024-12-18 17:38 | RAD REPORT ---
Exam:Foot Right 3 View CLINICAL HISTORY: Right foot pain FINDINGS: No fracture or dislocation seen No bony destructive lesion seen.
[2024-12-18] MEDS ORDERED: KETOROLAC 30 MG/ML INJ ONE (17:40)
[2024-12-18] MEDS ORDERED: HYDROCODONE/APAP 10/325 TAB ONE (17:41)
[2024-12-18] MEDS ORDERED: COLCHICINE 0.6 MG TAB ONE (17:41)
[2024-12-18] MEDS ORDERED: METOPROLOL TAR 50 MG TAB ONE (18:48)
[2024-12-18] MEDS ORDERED: AMLODIPINE 10 MG TAB ONE (18:49)
[2024-12-18 22:40] VITALS: TEMP 97; O2SAT 97
[2024-12-18 22:43] VITALS: BP 191/127
== END 2024-12-18 19:22 | disposition home or self-care (01) ==
LOC: ER 16:09
DX: M10.071 Idiopathic gout, right ankle and foot (principal); I10 Essential (primary) hypertension
CPT/HCPCS: 73630; 96372; 99284; J1100

== ENCOUNTER 2025-01-19 11:23 | Emergency (ER) | payer OTHER ==
--- OUTSIDE RECORDS SUMMARY | 2025-01-19 11:28 | XMS REPORT | Continuity of Care Document ---
Author Name Unknown Address [address] [place] [address] Organization [facility] Address [address] [place] [address] Care Team Providers Care Wine Consultant Name Role Phone Pcp, Patient Does Not Have A Primary Care Physic pat Doctor Unassigned, [place] Attending Clinician U jose e Figueroa, Generic Provider Attending Clinician Unavailable MIGDALIA VILLEGAS Attending Clinician Unavailable MIGDALIA VILLEGAS Attending Clinician Unavailable Migdalia Driver Attending Clinician [phone] Cipriano FREDERICK, Basim Sanz Attending Clinician + Tameka Garcia Attending Clinician [phone] Tameka NOVOA Attending Clinician Unavailable Doctor Unassigned, [place] Attending Clinician U Sherrell Erazo RN Attending Clinician Unavailable DIMITRIOS ABEL Attending Clinician UnavailDimitrios Kearney MD Attending Clinician [phone] DIMITRIOS ABEL Admitting Clinician UnavailDimitrios Kearney MD Admitting Clinician [phone] Payers Payer Name Policy Type Policy Number Effective Date Expirati on Date Source Problems Condition Name Condition Details Condition Category Status Onset Date Resolution Date Last Treatment Date Treating Clinician Comments Source SOB (shortness of breath) SOB (shortness of breath) Disease Active 4-14 00:00: 00 [facility] Obesity (BMI 30-39.9) Obesity (BMI 30-39.9) Disease Active 7-21 00:00: 00 [facility] Allergies, Adverse Reactions, Alerts Allergy Name Allergy Type Status Severity Reaction(s) Onset Date Inactive Date Treating Clinician Comments Source MORPHINE DRUG INGREDI Active Unknown-Cmnt 12-06 00:00: 00 [facility] Morphine Propensi ty to adverse reaction s Active Unknown - See comments 12-06 00:00: 00 Patient does not know reaction [facility] NO KNOWN ALLERGIE S Drug Class Active [facility] Social History Social Habit Start Date Stop Date Quantity Comments Source History SDOH Alcohol Std Drinks [facility] History SDOH Alcohol Binge [facility] Alcohol Frequency [facility] History of Social function 2024-06-01 00:00:00 2024-06-01 00:00:00 [facility] Exposure to SARS-CoV-2 (event) 2021-11-26 00:00:00 2021-12-06 12:55:00 Not sure [facility] Alcohol intake 2021-12-06 00:00:00 2021-12-06 00:00:00 Current drinker of alcohol (finding) [facility] Alcohol Comment 2016-11-22 00:00:00 2016-11-22 00:00:00 Daily [facility] Alcoholic beverage intake 2016-11-22 00:00:00 2016-11-22 00:00:00 Current drinker of alcohol (finding) [facility] Tobacco use and exposure 2016-11-22 00:00:00 2016-11-22 00:00:00 Smokeless tobacco non-user [facility] Sex assigned at 1985 00:00:00 1985 00:00:00 [facility] Smoking Status Start Date Stop Date Source Never smoked tobacco [facility] Medications Ordered Medication Name Filled Medication Name Start Date Stop Date Current Medication? Ordering Clinician Indication Dosage Frequency Signature (SIG) Comments Components Source cloNIDine (CATAPRES) tablet 0.1 mg 06-02 04:45: 00 06-02 05:17 :00 No .1mg 0.1 mg, Oral, ONCE, 1 dose, On Sat06/01/24 at 2245, STAT [facility] HYDROcodone -acetaminop hen (NORCO 5) tablet 1 tablet 06-02 04:45: 00 06-02 05:17 :00 No 1{tbl} 1 tablet, Oral, ONCE, 1 dose, On Sat06/01/24 at 2245, [facility] methylpredn isolone sod succ (SOLU-MEDRO L) injection 125 mg 06-02 04:40: 00 06-02 05:18 :00 No 125mg 125 mg, Intramuscu lar, ONCE NOW, 1 dose, On Sat06/01/24 at 2245, [facility] acetaminoph en-codeine 300-30 mg tablet 06-02 00:00: 00 06-10 05:59 :00 No [id number] 1{tbl} Take 1 tablet by mouth every 8 (eight) hours as needed for Pain (scale 4-6) for up to 7 days. Indication s: acute pain [facility] lisinopriL (PRINIVIL,Z ESTRIL) tablet 20 mg 12-07 14:00: 00 Yes 20mg 20 mg, Oral, DAILY, First dose on Viktoriya 12/07/21 at 0900, Until Discontinu ed, Routine [facility] HYDROcodone -acetaminop hen (NORCO) 10-325 mg tablet 1 tablet 12-06 17:15: 00 12-06 16:12 :00 No 1{tbl} 1 tablet, Oral, ONCE, 1 dose, On Sat12/06/21 at 1215, [facility] carvediloL (COREG) tablet 25 mg 12-06 17:15: 00 12-06 16:12 :00 No 25mg 25 mg, Oral, ONCE, 1 dose, On Sat12/06/21 at 1215, Routine [facility] methylpredn isolone sod succ (SOLU-MEDRO L) injection 125 mg 12-06 16:45: 00 12-06 16:09 :00 No 125mg 125 mg, Intramuscu lar, ONCE, 1 dose, On Sat12/06/21 at 1145, REGINA [facility] predniSONE 20 mg tablet 12-06 00:00: 00 Yes [id number] 1 PO BID x 4 days [facility] acetaminoph en-codeine 300-30 mg tablet 12-06 00:00: 00 Yes [id number] 1{tbl} Take 1 tablet by mouth every 4 (four) hours as needed for Pain (scale 4-6). Indication s: acute pain [facility] aspirin 81 mg chewable tablet 09-14 00:00: 00 Yes [id number] 81mg Take 1 tablet by mouth daily. [facility] atorvastati n 40 mg tablet 09-14 00:00: 00 Yes [id number] 40mg Take 1 tablet by mouth at bedtime. [facility] carvediloL 25 mg tablet 09-14 00:00: 00 Yes [id number] 37.5mg Take 1.5 tablets by mouth 2 (two) times daily with meals. [facility] furosemide 40 mg tablet 09-14 00:00: 00 Yes [id number] 40mg Take 1 tablet by mouth every morning and evening. [facility] lisinopriL 10 mg tablet 09-14 00:00: 00 Yes [id number] 30mg Take 3 tablets by mouth daily. [facility] spironolact one 25 mg tablet 09-14 00:00: 00 Yes [id number] 25mg Take 1 tablet by mouth daily. [facility] aspirin 81 mg chewable tablet -19 00:00: 00 09-14 00:00 :00 No [id number] 81mg Take 1 tablet by mouth daily for 180 days. [facility] lisinopriL 10 mg tablet 08-22 00:00: 00 09-14 00:00 :00 No [id number] 30mg Take 3 tablets by mouth daily for 180 days. [facility] spironolact one 25 mg tablet 08-22 00:00: 00 09-14 00:00 :00 No [id number] 25mg Take 1 tablet by mouth daily for 180 days. [facility] carvediloL (COREG) tablet 37.5 mg 08-21 22:00: 00 Yes 37.5mg 37.5 mg, Oral, BID MEALS, First dose (after last modificati on) on Sat08/21/21 at 1700, Until Discontinu ed, Routine [facility] lisinopriL (PRINIVIL,Z ESTRIL) tablet 30 mg 08-21 14:00: 00 Yes 30mg 30 mg, Oral, DAILY, First dose (after last modificati on) on Sat08/21/21 at 0900, Until Discontinu ed, Routine [facility] magnesium oxide (MAG-OX 400) tablet 400 mg 08-21 13:45: 00 08-21 13:20 :00 No 400mg 400 mg, Oral, ONCE, 1 dose, On Sat08/21/21 at 0845, Routine [facility] amLODIPine 10 mg tablet 08-21 11:33: 41 08-21 00:00 :00 No 10mg Take 10 mg by mouth daily. [facility] hydroCHLORO thiazide 25 mg tablet 08-21 11:33: 41 08-21 00:00 :00 No 25mg Take 25 mg by mouth daily. [facility] ibuprofen 800 mg tablet 08-21 11:33: 41 08-21 00:00 :00 No 800mg Take 800 mg by mouth 2 (two) times daily. [facility] hydrALAZINE (APRESOLINE ) tablet 10 mg 08-21 07:00: 00 08-21 06:05 :00 No 10mg 10 mg, Oral, ONCE, 1 dose, On Sat08/21/21 at 0200, Routine [facility] atorvastati n 40 mg tablet 08-21 00:00: 00 09-14 00:00 :00 No [id number] 40mg Take 1 tablet by mouth at bedtime for 180 days. [facility] furosemide 40 mg tablet 08-21 00:00: 00 09-14 00:00 :00 No [id number] 40mg Take 1 tablet by mouth every morning and evening for 180 days. [facility] carvediloL 25 mg tablet 08-21 00:00: 00 09-14 00:00 :00 No [id number] 37.5mg Take 1.5 tablets by mouth 2 (two) times daily with meals for 180 days. [facility] carvediloL 25 mg tablet 08-21 00:00: 00 08-21 00:00 :00 No [id number] 25mg Take 1 tablet by mouth 2 (two) times daily with meals for 180 days. [facility] furosemide (LASIX) tablet 40 mg 08-20 14:00: 00 Yes 40mg 40 mg, Oral, QAM+PM, First dose (after last modificati on) on Sat08/20/21 at 0900, Until Discontinu ed, Routine [facility] lisinopriL (PRINIVIL,Z ESTRIL) tablet 20 mg 08-20 14:00: 00 08-21 11:42 :47 No 20mg 20 mg, Oral, DAILY, First dose (after last modificati on) on Sat08/20/21 at 0900, Until Discontinu ed, Routine [facility] carvediloL (COREG) tablet 25 mg 08-20 13:00: 00 08-21 17:46 :56 No 25mg 25 mg, Oral, BID MEALS, First dose (after last modificati on) on 08/20/21 at 0800, Until Discontinu ed, Routine [facility] lisinopriL (PRINIVIL,Z ESTRIL) tablet 5 mg 08-19 15:00: 00 08-19 14:30 :00 No 5mg 5 mg, Oral, ONCE, 1 dose, On Sat08/19/21 at 1000, Routine [facility] carvediloL (COREG) tablet 12.5 mg 08-19 13:00: 00 08-19 22:39 :41 No 12.5mg 12.5 mg, Oral, BID MEALS, First dose (after last modificati on) on Sat08/19/21 at 0800, Until Discontinu ed, Routine [facility] furosemide (LASIX) injection 40 mg 08-19 01:00: 00 08-19 17:31 :11 No 40mg 40 mg, Slow IV Push, Q12H, First dose on Sat08/18/21 at 2000, Until Discontinu ed, Routine [facility] hydrALAZINE (APRESOLINE ) tablet 25 mg 08-18 21:47: 07 Yes 25mg 25 mg, Oral, Q6HPRN, Starting on Sat08/18/21 at 1647, Until Discontinu ed, Routine, SBP >180 [facility] lisinopriL (PRINIVIL,Z ESTRIL) tablet 10 mg 08-18 18:15: 00 08-18 18:14 :00 No 10mg 10 mg, Oral, DAILY, 1 dose, First dose on Sat08/18/21 at 1315, Routine [facility] lisinopriL (PRINIVIL,Z ESTRIL) tablet 10 mg 08-18 16:00: 00 08-19 13:47 :35 No 10mg 10 mg, Oral, DAILY, First dose on Sat08/18/21 at 1100, Until Discontinu ed, Routine [facility] spironolact one (ALDACTONE) tablet 25 mg 08-18 14:00: 00 Yes 25mg 25 mg, Oral, DAILY, First dose on Sat08/18/21 at 0900, Until Discontinu ed, Routine [facility] aspirin chewable tablet 81 mg 08-18 14:00: 00 Yes 81mg 81 mg, Oral, DAILY, First dose on Sat08/18/21 at 0900, Until Discontinu ed, Routine [facility] furosemide (LASIX) tablet 40 mg 08-18 14:00: 00 08-18 16:18 :32 No 40mg 40 mg, Oral, QAM+PM, First dose on Sat08/18/21 at 0900, Until Discontinu ed, Routine [facility] amLODIPine (NORVASC) tablet 10 mg 08-18 12:00: 00 08-18 11:05 :00 No 10mg 10 mg, Oral, ONCE, 1 dose, On Sat08/18/21 at 0700, Routine [facility] atorvastati n (LIPITOR) tablet 40 mg 08-18 02:00: 00 Yes 40mg 40 mg, Oral, QHS, First dose on Sat08/17/21 at 2100, Until Discontinu ed, Routine [facility] heparin (porcine) injection 5,000 Units 08-18 01:00: 00 Yes 5000U 5,000 Units, Subcutaneo us, Q12H, First dose on Sat08/17/21 at 2000, Until Discontinu ed, Routine [facility] hydrALAZINE (APRESOLINE ) tablet 10 mg 08-17 22:45: 00 08-17 23:51 :00 No 10mg 10 mg, Oral, ONCE, 1 dose, On Sat08/17/21 at 1745, Routine [facility] hydrALAZINE (APRESOLINE ) tablet 10 mg 08-17 21:45: 54 08-18 21:47 :24 No 10mg 10 mg, Oral, Q6HPRN, Starting on Sat08/17/21 at 1645, Until Sat08/18/21 at 1647, Routine, SBP >180 [facility] sulfur hexafluorid e microsphr (LUMASON) injection 5 mL 08-17 20:45: 00 08-17 20:45 :00 No [id number] 5mL 5 mL, Intravenou s, ONCE, 1 dose, On Sat08/17/21 at 1545, Routine
production team member approving Restricted medication : DEZ QIU [facility] magnesium sulfate in water 4 gram/50 mL (8 %) IV Piggyback 4 g 08-17 18:15: 00 08-17 18:29 :00 No 4g 4 g, IV Piggyback, ONCE, 1 dose, On Viktoriya 08/17/21 at 1315, Routine [facility] KCL (KLOR-CON M20) tablet 40 mEq 08-17 18:15: 00 08-17 18:10 :00 No 40meq 40 mEq, Oral, ONCE, 1 dose, On Viktoriya 08/17/21 at 1315, Routine [facility] furosemide (LASIX) injection 40 mg 08-17 17:15: 00 08-18 12:42 :25 No 40mg 40 mg, Slow IV Push, Q12H, First dose on Viktoriya 08/17/21 at 1215, Until Discontinu ed, Routine [facility] acetaminoph en (TYLENOL) tablet 650 mg 08-17 14:09: 58 Yes 650mg 650 mg, Oral, Q6HPRN, Starting on Sat08/17/21 at 0909, Until Discontinu ed, Routine, Pain (scale 1-3) [facility] amLODIPine 10 mg tablet 08-17 09:16: 15 Yes 10mg Take 10 mg by mouth daily. [facility] hydroCHLORO thiazide 25 mg tablet 08-17 09:16: 15 Yes 25mg Take 25 mg by mouth daily. [facility] ibuprofen 800 mg tablet 08-17 09:16: 15 Yes 800mg Take 800 mg by mouth 2 (two) times daily. [facility] Vital Signs Vital Name Observation Time Observation Value Comments S qi Systolic blood pressure 2024-06-02 06:00:00 183 mm[Hg] [facility] Diastolic blood pressure 2024-06-02 06:00:00 132 mm[Hg] [facility] Heart rate 2024-06-02 05:18:00 82 /min Unive [facility] Body temperature 2024-06-02 05:18:00 37 Anastasiia [facility] Respiratory rate 2024-06-02 05:18:00 20 /min [facility] Oxygen saturation in Arterial blood by Pulse oximetry 2024-06-02 05:18:00 100 /min [facility] Body height 2024-06-02 03:39:[address] [facility] Body weight 2024-06-02 03:39:[address] [facility] BMI 2024-06-02 03:39:00 30.61 kg/m2 [facility] Systolic blood pressure 2021-12-06 17:40:07 158 mm[Hg] [facility] Diastolic blood pressure 2021-12-06 17:40:07 105 mm[Hg] [facility] Heart rate 2021-12-06 15:43:00 91 /min Unive [facility] Respiratory rate 2021-12-06 15:43:00 20 /min [facility] Oxygen saturation in Arterial blood by Pulse oximetry 2021-12-06 15:43:00 97 /min [facility] Body temperature 2021-12-06 14:49:00 36.61 Anastasiia [facility] Body height 2021-12-06 14:49:[address] [facility] Body weight 2021-12-06 14:49:[address] [facility] BMI 2021-12-06 14:49:00 29.84 kg/m2 [facility] Systolic blood pressure 2021-08-21 20:39:00 143 mm[Hg] [facility] Diastolic blood pressure 2021-08-21 20:39:00 104 mm[Hg] [facility] Heart rate 2021-08-21 20:39:00 79 /min Unive [facility] Body temperature 2021-08-21 20:39:00 36 Anastasiia [facility] Respiratory rate 2021-08-21 20:39:00 18 /min [facility] Oxygen saturation in Arterial blood by Pulse oximetry 2021-08-21 20:39:00 99 /min [place] [facility] Body weight 2021-08-21 10:57:[address] [facility] BMI 2021-08-21 10:57:00 31.11 kg/m2 [facility] Body height 2021-08-18 10:31:[address] [facility] Procedures Procedure Date / Time Performed Performing Clinician Source NOTICE OF PRIVACY PRACTICES 2021-12-06 14:38:21 Doctor Unassigned, [place] [facility] CONSENT/REFUSAL FOR DIAGNOSIS AND TREATMENT 2021-12-06 14:38:03 Doctor Unassigned, [place] [facility] AUTHORIZATION FOR RELEASE OF PHI 2021-09-01 05:01:00 Doctor Unassigned, [place] [facility] MAGNESIUM 2021-08-21 08:42:00 Eryn Cowart [facility] BASIC METABOLIC PANEL (NA, K, CL, CO2, GLUCOSE, BUN, CREATININE, CA) 2021-08-21 08:42:00 [facility] N-TERMINAL PRO-BNP 2021-08-21 08:42:00 Gaston Elizabeth [facility] HB ECG ROUTINE & RHYTHM STRIP 2021-08-20 13:02:55 [facility] 2021-08-20 09:22:00 Letty March [facility] BASIC METABOLIC PANEL (NA, K, CL, CO2, GLUCOSE, BUN, CREATININE, CA) 2021-08-20 09:22:00 [facility] 2021-08-20 09:22:[address] [facility] HB ECG ROUTINE & RHYTHM STRIP 2021-08-19 13:08:08 [facility] 2021-08-19 10:21:00 Gaston Elizabeth [facility] BASIC METABOLIC PANEL (NA, K, CL, CO2, GLUCOSE, BUN, CREATININE, CA) 2021-08-19 10:21:00 Gaston Elizabeth [facility] BASIC METABOLIC PANEL (NA, K, CL, CO2, GLUCOSE, BUN, CREATININE, CA) 2021-08-18 19:41:00 [facility] HB ECG ROUTINE & RHYTHM STRIP 2021-08-18 14:50:24 [facility] MAGNESIUM 2021-08-18 09:10:00 [facility]OLIC [facility] (NA, K, CL, CO2, GLUCOSE, BUN, CREATININE, CA) 2021-08-18 09:10:00 [facility] CBC WITH DIFF 2021-08-18 09:10:00 Supa [facility] TROPONIN I 2021-08-17 23:58:[address] [facility] TRANSTHORACIC ECHO (TTE) COMPLETE W/ CONTRAST 2021-08-17 18:53:00 [facility] PHOSPHORUS 2021-08-17 15:43:00 [facility] 2021-08-17 15:43:[address] [facility] FERRITIN SERUM 2021-08-17 15:43:00 Eryn Cowart [facility] TROPONIN I 2021-08-17 15:43:[address] [facility] THYROID STIMULATING HORMONE 2021-08-17 15:43:00 [facility] HEPATIC FUNCTION PANEL (20160) (ALB,T.PRO,BILI T,BU/BC,ALT,AST,ALK PHOS) 2021-08-17 15:43:00 [facility] BASIC METABOLIC PANEL (NA, K, CL, CO2, GLUCOSE, BUN, CREATININE, CA) 2021-08-17 15:43:00 [facility] IRON PANEL 2021-08-17 15:43:[address] [facility] CBC WITH DIFF 2021-08-17 15:43:00 Supa [facility] GLYCOSYLATED HEMOGLOBIN (A1C) 2021-08-17 15:43:00 Eryn Cowart [facility] N-TERMINAL PRO-BNP 2021-08-17 15:43:00 Eryn Cowart [facility] XR CHEST 1 VW 2021-08-17 15:10:[address] [facility] EXTERNAL PROVIDER RECORDS 2016-11-23 05:01:00 Doctor Unassigned, [place] [facility] DAY SURGERY - ADC 2016-11-23 05:01:00 Doctor Ivonne ssigned, [place] [facility] Encounters Start Date/Time End Date/Time Encounter Type Admission Type Attending Clinicians Care Facility Care Department Encounter ID Source 2024-08-03 13:47:27 2024-08-03 13:47:27 Outpatient [facility] [id number] Gucci Philippe Bairon 2016-11-23 00:00:00 2024-06-20 03:42:57 Orders Only Doctor Unassigned, [place] Doctor Unassigned, [place] [facility] [id number] 350.1.13.10 4.2.7.2.686 [id number] [facility] 2024-06-10 00:00:00 2024-06-10 11:09:01 Letter (Out) Campaigns, Generic Provider Campaigns, Generic Provider [facility] ([facility] [id number] 350.1.13.10 4.2.7.2.686 [id number] [facility] 2024-06-01 21:44:00 2024-06-02 00:17:00 Emergency X MIGDALIA VILLEGAS SHINTA [facility] ERT [id number] [facility] 2024-06-01 21:44:00 2024-06-02 00:17:00 Emergency Migdalia Villegas [facility] [id number] 350.1.13.10 4.2.7.2.686 [id number] [facility] 2024-03-30 10:06:11 2024-03-30 10:06:11 Outpatient [facility] [id number] Gucci Waddell 2022-08-17 00:00:00 2022-08-17 00:00:00 [facility]114 350.1.13.10 4.2.7.2.686 [id number] [facility] 2021-12-06 09:51:00 2021-12-06 13:09:00 Emergency Tameka Novoa [facility] 1..114 350.1.13.10 4.2.7.2.686 [id number] [facility] 2021-12-06 09:51:00 2021-12-06 13:09:00 Emergency X Tameka NOVOA [facility] ERT [id number] [facility] 2021-12-06 00:00:00 2021-12-06 00:00:00 Orders Only Doctor Unassigned, [place] [facility] 1..114 350.1.13.10 4.2.7.2.686 [id number] [facility] 2021-09-14 00:00:00 2021-09-14 00:00:00 [facility]..114 350.1.13.10 4.2.7.2.686 [id number] [facility] 2021-09-12 00:00:00 2021-09-12 00:00:00 Telephone Basim Cota [facility] 1..114 350.1.13.10 4.2.7.2.686 [id number] [facility] 2021-09-01 00:00:00 2021-09-01 00:00:00 Telephone Khalife, [facility] 1.2840.114 350.1.13.10 4.2.7.2.686 [id number] [facility] 2021-09-01 00:00:00 2021-09-01 00:00:00 Orders Only Doctor Unassigned, [place] [facility] 1.2840.114 350.1.13.10 4.2.7.2.686 [id number] [facility] 2021-08-30 00:00:00 2021-08-30 00:00:00 [facility] 1.840.114 350.1.13.10 4.2.7.2.686 [id number] [facility] 2021-08-22 00:00:00 2021-08-22 00:00:00 Transition of Care Sherrell Neumann 1.840.114 350.1.13.10 4.2.7.2.686 [id number] [facility] 2021-08-17 08:35:00 2021-08-21 17:42:00 Inpatient [facility] [id number] [facility] 2021-08-17 08:35:00 2021-08-21 17:42:00 Hospital Encounter Basim Cota SanzDimitrios Douglass [facility] 1.840.114 350.1.13.10 4.2.7.2.686 [id number] [facility] 2021-08-18 00:00:00 2021-08-18 00:00:00 Telephone Dimitrios Abel [facility] 1.2840.114 350.1.13.10 4.2.7.2.686 [id number] [facility] Results Test Description Test Time Test Comments Results Result Co mments Source [facility] METABOLIC PANEL (NA, K, CL, CO2, GLUCOSE, BUN, CREATININE, CA)2021-08-21 10:07:34* Test Item Value Reference Range Interpretation Comme nts NA (test code = 9870455084) 135 mmol/L 135-145 K (test code = 7377241694) 4.4 mmol/L 3.5-5.0 CL (test code = 2132716636) 102 mmol/L 98-108 CO2 TOTAL (test code = 2947515961) 26 mmol/L 23-31 AGAP (test code = 9794834885) 2-16 BUN (test code = 7083756184) 27 mg/dL 7-23 H GLUCOSE (test code = 5271592521) 104 mg/dL 70-110 CREATININE (test code = 9660318084) 1.49 mg/dL 0.60-1.25 H CALCIUM (test code = 6183461097) 9.0 mg/dL 8.6-10.6 eGFR (test code = 3140006713) mL/min/1.73m2 EBEN (test code = EBEN) Association [...] imaging tests). Lab Interpretation (test code = 27466-4) [facility]:07:34* Test Item Value Reference Range Interpretation Comme nts MAGNESIUM (test code = 7933792670) 1.9 mg/dL 1.7-2.4 Lab Interpretation (test cod e = 72149-4) Normal [facility] (NA, K, CL, CO2, GLUCOSE, BUN, CREATININE, CA)2021-08-20 10:22:59* Test Item Value Reference Range Interpretation Comme nts NA (test code = 3456969735) 137 mmol/L 135-145 K (test code = 6231156921) 4.4 mmol/L 3.5-5.0 CL (test code = 9649699996) 102 mmol/L 98-108 CO2 TOTAL (test code = 0415136117) 26 mmol/L 23-31 AGAP (test code = 6686123236) 2-16 BUN (test code = 6646913355) 31 mg/dL 7-23 H GLUCOSE (test code = 9702265777) 119 mg/dL 70-110 H CREATININE (test code = 0694354243) 1.56 mg/dL 0.60-1.25 H CALCIUM (test code = 1660199967) 9.1 mg/dL 8.6-10.6 eGFR (test code = 4687326153) mL/min/1.73m2 EBEN (test code = EBEN) Association [...] imaging tests). Lab Interpretation (test code = 26777-9) [facility]:22:59* Test Item Value Reference Range Interpretation Comme nts MAGNESIUM (test code = 7884291747) 2.1 mg/dL 1.7-2.4 Lab Interpretation (test cod e = 27662-3) Normal [facility] WITH [id number] 09:42:15* Test Item Value Reference Range Interpretation Comme nts WBC (test code = 6690-2) See_Comment H [Automated [employer]] The system which generated this result transmitted reference range: 4.20 - 10.70 10*3/?L. The reference range was not used to interpret this result as normal/abnormal. RBC (test code = 789-8) See_Comment [Automated [employer]] The system which generated this result transmitted [...] 32.8 g/dL 31.2-35.0 RDW-SD (test code = 17400-6) 39.3 fL 38.5-51.6 RDW-CV (test code = 788-0) 12.5 % 12.1-15.4 PLT (test code = 777-3) See_Comment H [Automated messa ge] The system which generated this result transmitted reference range: 150 - 328 10*3/?L. The reference range was not used to interpret this result as normal/abnormal. MPV (test code = 84263-7) 9.3 fL 9.8-13.0 L NRBC/100 WBC (test code = 3916788526) See_Comment [Automated [employer] ssage] The system which generated this result transmitted reference range: 0.0 - 10.0 /100 WBCs. The reference range was not used to interpret this result as normal/abnormal. NRBC x10^3 (test code = 8842994644) <0.01 See_Comment [Automated messa ge] The system which generated this result transmitted reference range: 10*3/?L. The reference range was not used to interpret this result as normal/abnormal. GRAN MAT (NEUT) % (test code = 770-8) 60.5 % IMM GRAN % (test code = 9797313868) 0.30 % LYMPH % (test code = 736-9) 26.7 % MONO % (test code = 5905-5) 8.3 % EOS % (test code = 713-8) 3.4 % BASO % (test code = 706-2) 0.8 % GRAN MAT x10^3(ANC) (test code = 9028164439) 7.17 10*3/uL 1.99-6.95 H IMM GRAN x10^3 (test code = 8552767119) 0.03 10*3/uL 0.00-0.06 LYMPH x10^3 (test code = 731-0) 3.16 10*3/uL 1.09-3.23 MONO x10^3 (test code = 742-7) 0.98 10*3/uL 0.36-1.02 EOS x10^3 (test code = 711-2) 0.40 10*3/uL 0.06-0.53 BASO x10^3 (test code = 704-7) 0.10 10*3/uL 0.01-0.09 H Lab Interpretation (test code = 43002-9) Abnormal [facility] METABOLIC PANEL (NA, K, CL, CO2, GLUCOSE, BUN, CREATININE, CA)2021-08-19 10:52:12* Test Item Value Reference Range Interpretation Comme nts NA (test code = 0726176067) 136 mmol/L 135-145 K (test code = 3196370857) 3.8 mmol/L 3.5-5.0 CL (test code = 4416339409) 100 mmol/L 98-108 CO2 TOTAL (test code = 1392213009) 29 mmol/L 23-31 AGAP (test code = 7841189711) 2-16 BUN (test code = 5830635172) 32 mg/dL 7-23 H GLUCOSE (test code = 6920189165) 115 mg/dL 70-110 H CREATININE (test code = 9352577702) 1.67 mg/dL 0.60-1.25 H CALCIUM (test code = 9437587982) 9.1 mg/dL 8.6-10.6 eGFR (test code = 4704910904) mL/min/1.73m2 EBEN (test code = EBEN) Association [...] imaging tests). Lab Interpretation (test code = 56489-4) [facility] 10:52:12* Test Item Value Reference Range Interpretation Comme nts MAGNESIUM (test code = 6183220118) 1.9 mg/dL 1.7-2.4 Lab Interpretation (test cod e = 90436-4) [facility] (NA, K, CL, CO2, GLUCOSE, BUN, CREATININE, CA)2021-08-18 21:19:06* Test Item Value Reference Range Interpretation Comme nts NA (test code = 6727587132) 135 mmol/L 135-145 K (test code = 7041879361) 3.9 mmol/L 3.5-5.0 CL (test code = 9776356991) 98 mmol/L 98-108 CO2 TOTAL (test code = 4742195368) 30 mmol/L 23-31 AGAP (test code = 8864072544) 2-16 BUN (test code = 6825425299) 29 mg/dL 7-23 H GLUCOSE (test code = 7161270810) 121 mg/dL 70-110 H CREATININE (test code = 0561305072) 1.58 mg/dL 0.60-1.25 H CALCIUM (test code = 8942524812) 8.9 mg/dL 8.6-10.6 eGFR (test code = 5194316105) mL/min/1.73m2 EBEN (test code = EBEN) Association [...] imaging tests). Lab Interpretation (test code = 93289-6) [facility] (NA, K, CL, CO2, GLUCOSE, BUN, CREATININE, CA)2021-08-18 10:04:44* Test Item Value Reference Range Interpretation Comme nts NA (test code = 5508430677) 135 mmol/L 135-145 K (test code = 6234473685) 4.0 mmol/L 3.5-5.0 Slight hemolysis CL (test code = 5524631869) 101 mmol/L 98-108 CO2 TOTAL (test code = 8561539771) 29 mmol/L 23-31 AGAP (test code = 5646914937) 2-16 BUN (test code = 3374405911) 32 mg/dL 7-23 H Slight hemolysis GLUCOSE (test code = 6334607601) 114 mg/dL 70-110 H CREATININE (test code = 2642863969) 1.54 mg/dL 0.60-1.25 H CALCIUM (test code = 4742390177) 8.8 mg/dL 8.6-10.6 eGFR (test code = 1951314471) mL/min/1.73m2 EBEN (test code = EBEN) Association [...] imaging tests). Lab Interpretation (test code = 08832-8) [facility] 10:04:44* Test Item Value Reference Range Interpretation Comme nts MAGNESIUM (test code = 4856574746) 2.2 mg/dL 1.7-2.4 Lab Interpretation (test cod e = 79500-5) Normal [facility] WITH [id number] 09:24:38* Test Item Value Reference Range Interpretation Comme nts WBC (test code = 6690-2) See_Comment [Automated [employer]] The system which generated this result transmitted reference range: 4.20 - 10.70 10*3/?L. The reference range was not used to interpret this result as normal/abnormal. RBC (test code = 789-8) See_Comment [Automated [employer]] The system which generated this result transmitted [...] 33.3 g/dL 31.2-35.0 RDW-SD (test code = 73648-6) 39.1 fL 38.5-51.6 RDW-CV (test code = 788-0) 12.6 % 12.1-15.4 PLT (test code = 777-3) See_Comment H [Automated messa ge] The system which generated this result transmitted reference range: 150 - 328 10*3/?L. The reference range was not used to interpret this result as normal/abnormal. MPV (test code = 96094-7) 9.5 fL 9.8-13.0 L NRBC/100 WBC (test code = 8511780072) See_Comment [Automated [employer] ssage] The system which generated this result transmitted reference range: 0.0 - 10.0 /100 WBCs. The reference range was not used to interpret this result as normal/abnormal. NRBC x10^3 (test code = 3928351383) <0.01 See_Comment [Automated messa ge] The system which generated this result transmitted reference range: 10*3/?L. The reference range was not used to interpret this result as normal/abnormal. GRAN MAT (NEUT) % (test code = 770-8) 65.3 % IMM GRAN % (test code = 9700390005) 0.20 % LYMPH % (test code = 736-9) 23.3 % MONO % (test code = 5905-5) 7.0 % EOS % (test code = 713-8) 3.5 % BASO % (test code = 706-2) 0.7 % GRAN MAT x10^3(ANC) (test code = 0188092892) 6.63 10*3/uL 1.99-6.95 IMM GRAN x10^3 (test code = 7710309159) <0.03 0.00-0.06 LYMPH x10^3 (test code = 731-0) 2.36 10*3/uL 1.09-3.23 MONO x10^3 (test code = 742-7) 0.71 10*3/uL 0.36-1.02 EOS x10^3 (test code = 711-2) 0.35 10*3/uL 0.06-0.53 BASO x10^3 (test code = 704-7) 0.07 10*3/uL 0.01-0.09 Lab Interpretation (test code = 78062-9) [facility] (A1C)2021-08-18 02:37:07* Test Item Value Reference Range Interpretation Comme nts HGB A1C (test code = 4548-4) 5.8 % 4.0-5.7 H EBEN (test code = EBEN) Reference RangesNormal: <5.7%Prediabetes: 5.7 - 6.4%Diabetes: > 6.5% Lab Interpretation (test code = 53434-1) [facility]TR[facility] [id number] 01:03:37* Test Item Value Reference Range Interpretation Comments TROPONIN I (test code = 1931409407) 0.101 ng/mL See_Comment H [Automated message] The [...] of biotin. Lab Interpretation (test code = 95058-0) [facility]2021-08-17 22:14:20* Test Item Value Reference Range Interpretation Comme nts Ao root annulus (test code = 1721807227) 3.3 cm Ao root diam (test code = 1447064104) 3.30 cm Aortic root (test code = 6056655442) 3.3 cm LA size (test code = 0086110538) 3.7 cm LVOT diameter (test code = 6023798871) 2.00 cm LVIDD (test code = 5554622247) 5.90 cm IVS (test code = 7674730422) 1.26 cm Interventricular Septum Diastolic Thickness by 2D (test code = 4409542) 1.26 cm LVPWD (test code = 8346058572) 1.19 cm PW (test code = 3477187948) 1.19 cm 0.6-1.1 EF(Teich) (test code = 8733359125) 46.60 % LVIDS (test code = 7243969952) 4.50 cm FS (test code = 1438298929) 24 % EF - 2D (test code = 95102722) 46.60 % LAV(MOD-sp4) (test code = 6240173925) 65.30 mL MV Peak E Narciso (test code = 7228527362) 126.4 cm/s E wave decelartion time (test code = 6244711611) 0.14 s MV Prop V (test code = 5636059570) 35.00 cm/s LVOT stroke volume (test code = 0307513960) 45.10 cm3 LVOT peak narciso (test code = 7570907052) 90.0 cm/s LVOT mn grad (test code = 2306659040) mmHg AV LVOT peak gradient (test code = 8013878522) mmHg LVOT peak VTI (test code = 3271526775) 14.4 cm LV V1 mean (test code = 1978815274) 63.00 cm/s Aortic valve mean velocity (test code = 6899406294) 76.8 cm/s Ao peak narciso (test code = 3462286134) 125.5 cm/s Ao VTI (test code = 4998707038) 17.0 cm AV area by cont VTI (test code = 1011220259) 2.6 cm2 AV area peak narciso (test code = 2355553229) 2.2 cm2 Ao max PG (test code = 6983633343) 6.30 mm[Hg] AV peak gradient (test code = 2338078570) mmHg AV valve area (test code = 5722447360) 2.60 cm2 AV mean gradient (test code = 2638475130) mmHg TR Peak Narciso (test code = 0007901574) 119.4 cm/s Triscuspid Valve Regurgitation Peak Gradient (test code = 8853818643) mmHg Tapse (test code = 7424207091) 1.95 cm LA volume (BP) (test code = 2918547370) 73.5 mL LAV(MOD-sp2) (test code = 0165759813) 74.00 mL LA Volume Index (BP) (test code = 6698296580) 32.5 mL/m2 LV Diastolic Volume (BP) (test code = 3296613614) 232.2 mL EF(MOD-bp) (test code = 0993708749) 33.10 % LV Systolic Volume (BP) (test code = 4359631854) 155.2 mL SV(MOD-bp) (test code = 7945263154) 76.90 mL EF (test code = 5889416814) 33 % Left Ventricular Stroke Volume by 2-D Biplane-MOD (test code = 6000444) 76.9 mL Radiology Study observation (narrative) (test code = 26284-8) EBEN (test code = EBEN) ?Left?Ventricle: Left [...] (104.3 kg) 2.3 sq meters 183/126 82 [facility]87[facility] (ALB,T.PRO,BILI T,BU/BC,ALT,AST,ALK PHOS)2021-08-17 17:59:20* Test Item Value Reference Range Interpretation Comme nts TOTAL BILI (test code = 9348331882) 0.4 mg/dL 0.1-1.1 BILI UNCON (test code = 6565133938) 0.4 mg/dL 0.1-1.1 BILI CONJ (test code = 7791789830) 0.0 mg/dL 0.0-0.3 T PROTEIN (test code = 4329948684) 6.4 g/dL 6.3-8.2 ALBUMIN (test code = 3958380938) 3.7 g/dL 3.5-5.0 ALK PHOS (test code = 7659614393) 64 U/L 34-122 ALTv (test code = 1742-6) 39 U/L 5-50 AST(SGOT) (test code = 4810289359) 30 U/L 13-40 Lab Interpretation (test cod e = 14353-7) Normal [facility]FERR[facility] [id number] 17:21:19* Test Item Value Reference Range Interpretation Comme nts FERRITIN (test code = 6251426807) 29.7 ng/mL 18.0-464.0 EBEN (test code = EBEN) Biotin has been reported to cause a negative bias, interpret results relative to patient's use of biotin. Lab Interpretation (test code = 26826-5) Normal [facility] CenterTHYROID STIMULATING [id number] 17:14:24 * Test Item Value Reference Range Interpretation Comme nts TSH (test code = 9296571858) See_Comment [Automated [employer] ge] The system which generated this result transmitted reference range: 0.45 - 4.70 mIU/L. The reference range was not used to interpret this result as normal/abnormal. Lab Interpretation (test code = 72061-7) Normal [facility] CenterN-TERMINAL [id number] 16:55:55* Test Item Value Reference Range Interpretation Comme nts NT-proBNP (test code = 2518275397) 5070 pg/mL See_Comment H [Automated message] The system which generated this result transmitted reference range: <=125. The reference range was not used to interpret this result as normal/abnormal. EBEN (test code = EBEN) Biotin has been reported to cause a negative bias, interpret results relative to patient's use of biotin. Lab Interpretation (test code = 20823-6) [facility]normal [facility]TR[facility] [id number] 16:55:55* Test Item Value Reference Range Interpretation Comments TROPONIN I (test code = 7753830567) 0.117 ng/mL See_Comment H [Automated message] The system which generated this result transmitted reference range: <=0.034. The reference range was not used to interpret this result as normal/abnormal. BEEN (test code = EBEN) Reference (Normal) Range [...] of biotin. Lab Interpretation (test code = 92150-8) [facility]normal [facility] CenterIRON [id number] 16:52:53* Test Item Value Reference Range Interpretation Comme nts IRON (test code = 3821471831) 51 ug/dL 50-160 TIBC (test code = 6006752976) 298 ug/dL 250-410 % FE SAT (test code = 8763262126) 17 % 20-50 L Lab Interpretation (test cod e = 14551-2) [facility]normal [facility]2022-[facility]-14 16:41:35* Test Item Value Reference Range Interpretation Comme nts MAGNESIUM (test code = 0356816696) 1.6 mg/dL 1.7-2.4 L Lab Interpretation (test cod e = 00377-6) [facility]normal [facility]PHOSPHORUS2022-04-14 16:41:35* Test Item Value Reference Range Interpretation Comme nts PHOSPHORUS (test code = 9061584323) 4.0 mg/dL 2.5-5.0 Lab Interpretation (test cod e = 91918-7) [facility]OL[facility] (NA, K, CL, CO2, GLUCOSE, BUN, CREATININE, CA)2021-08-17 16:41:35* Test Item Value Reference Range Interpretation Comme nts NA (test code = 6217160773) 134 mmol/L 135-145 L K (test code = 0642101854) 3.6 mmol/L 3.5-5.0 CL (test code = 5007378926) 99 mmol/L 98-108 CO2 TOTAL (test code = 0799380851) 32 mmol/L 23-31 H AGAP (test code = 4181574965) 2-16 BUN (test code = 5399657709) 24 mg/dL 7-23 H GLUCOSE (test code = 8739986886) 111 mg/dL 70-110 H CREATININE (test code = 3113140739) 1.60 mg/dL 0.60-1.25 H CALCIUM (test code = 5210380322) 8.8 mg/dL 8.6-10.6 eGFR (test code = 3144765030) mL/min/1.73m2 EBEN (test code = EBEN) Association [...] imaging tests). Lab Interpretation (test code = 48219-5) Abnormal [facility] WITH [id number] 16:00:05* Test Item Value Reference Range Interpretation [...] 33.7 g/dL 31.2-35.0 RDW-SD (test code = 42721-6) 39.5 fL 38.5-51.6 RDW-CV (test code = 788-0) 12.6 % 12.1-15.4 PLT (test code = 777-3) See_Comment H [Automated messa ge] The system which generated this result transmitted reference range: 150 - 328 10*3/?L. The reference range was not used to interpret this result as normal/abnormal. MPV (test code = 78175-0) 9.4 fL 9.8-13.0 L NRBC/100 WBC (test code = 3808613383) See_Comment [Automated [employer] ssage] The system which generated this result transmitted reference range: 0.0 - 10.0 /100 WBCs. The reference range was not used to interpret this result as normal/abnormal. NRBC x10^3 (test code = 2111041884) <0.01 See_Comment [Automated messa ge] The system which generated this result transmitted reference range: 10*3/?L. The reference range was not used to interpret this result as normal/abnormal. GRAN MAT (NEUT) % (test code = 770-8) 65.6 % IMM GRAN % (test code = 0992312416) 0.20 % LYMPH % (test code = 736-9) 23.8 % MONO % (test code = 5905-5) 6.7 % EOS % (test code = 713-8) 3.2 % BASO % (test code = 706-2) 0.5 % GRAN MAT x10^3(ANC) (test code = 2914327226) 6.58 10*3/uL 1.99-6.95 IMM GRAN x10^3 (test code = 2642877516) <0.03 0.00-0.06 LYMPH x10^3 (test code = 731-0) 2.39 10*3/uL 1.09-3.23 MONO x10^3 (test code = 742-7) 0.67 10*3/uL 0.36-1.02 EOS x10^3 (test code = 711-2) 0.32 10*3/uL 0.06-0.53 BASO x10^3 (test code = 704-7) 0.05 10*3/uL 0.01-0.09 Lab Interpretation (test code = 92169-5) Abnormal [facility] Notes Date/Time Note Provider Source [...] steady gait, in no apparent distress, A [facility] 2024-06-01 21:38:46 Patient arrived ambulatory to ED c/o right foot gout pain that started last night. Patient states being d/c from [place] with prescriptions about 30 minutes ago. States normally gets a shot but they didn't give him one this time. Hx of HTN takes BP medications for it. A Ding RN [facility]"
[2025-01-19] MEDS ORDERED: KETOROLAC 30 MG/ML INJ ONE (11:53)
[2025-01-19] MEDS ORDERED: COLCHICINE 0.6 MG TAB ONE (11:54)
[2025-01-19] MEDS ORDERED: HYDROCODONE/APAP 10/325 TAB ONE (11:54)
--- NOTE | 2025-01-19 12:10 | ER ---
Nurse's Notes [facility] Name: Ezequiel Padron Age: 39 yrs Sex: Male : 1985 Arrival Date: 01/19/2025 Time: 11:23 Bed 14 Private MD: Diagnosis: Gout, unspecified Presentation: 01/19 11:38 Chief complaint: Right ankle pain since last night, feels like previous gout flare up. hb Coronavirus screen: At this time, the client does not indicate any symptoms associated with coronavirus-19. Ebola Screen: No symptoms or risks identified at this time. Initial Sepsis Screen: Does the patient meet any 2 criteria? No. Patient's initial sepsis screen is negative. Does the patient have a suspected source of infection? No. Patient's initial sepsis screen is negative. Risk Assessment: Do you want to hurt yourself or someone else? Patient reports no desire to harm self or others. Onset of symptoms was January 18, 2025. 11:38 Method Of Arrival: Ambulatory 11:38 Acuity: HERMELINDA 4 hb Triage Assessment: 11:45 General: Appears in no apparent distress. uncomfortable, Behavior is appropriate for bp age. Pain: Complains of pain in left medial ankle and left lateral ankle. EENT: No deficits noted. Neuro: No deficits noted. Cardiovascular: No deficits noted. Respiratory: No deficits noted. GI: No signs and/or symptoms were reported involving the gastrointestinal system. : No signs and/or symptoms were reported regarding the genitourinary system. Derm: No deficits noted. Musculoskeletal: No deficits noted. Historical: - Allergies: 11:39 Nitroglycerin; hb - PMHx: 11:39 Congestive heart failure; Gout; Hypertensive disorder; hb - PSHx: 11:39 femur sx (en); hb - Immunization history:: Adult Immunizations up to date. - Infectious Disease History:: Denies. - Social history:: Smoking status: Patient denies any tobacco usage or history of. Screenin:45 [facility] ED Fall Risk Assessment (Adult) History of falling in the last 3 months, bp including since admission No falls in past 3 months (0 pts) Confusion or Disorientation No (0 pts) Intoxicated or Sedated No (0 pts) Impaired Gait No (0 pts) Mobility Assist Device Used No (0 pt) Altered Elimination No (0 pt) Score/Fall Risk Level 0 - 2 = Low Risk Oriented to surroundings. Abuse screen: Denies threats or abuse. Denies injuries from another. Nutritional screening: No deficits noted. Tuberculosis screening: No symptoms or risk factors identified. Assessment: 11:45 General: SEE TRIAGE NOTE. bp Vital Signs: 11:38 BP 200 / 100; Pulse 92; Resp 16; Temp 98.1; Pulse Ox 96% on R/A; Weight 104.33 kg; hb Height 6 ft. 2 in. ; Pain 10/10; 11:38 Body Mass Index 29.53 (104.33 kg, 187.96 cm) hb 11:38 Pain Scale: Adult hb ED Course: 11:25 Patient arrived in ED. mr 11:27 [facility]ballo [facility]C [facility] kb 11:27 Kirby Cortes MD is Attending Physician. kb 11:34 Hesham Beavers, RN is Primary Nurse. bp 11:39 Triage completed. hb 11:40 Arm band placed on. hb 11:45 Patient has correct armband on for positive identification. bp 12:48 No provider procedures requiring assistance completed. Patient did not have IV access bp during this emergency room visit. Administered Medications: 12:02 Drug: Colcrys PO 1.2 mg PO once Route: PO; bp 12:49 Follow up: Response: No adverse reaction bp 12:02 Drug: Jackson PO 10 mg-325 mg 1 tabs PO once Route: PO; bp 12:49 Follow up: Response: No adverse reaction bp 12:02 Drug: Dexamethasone IM 10 mg IM once Route: IM; Site: right gluteus; bp 12:49 Follow up: Response: No adverse reaction bp 12:02 Drug: Ketorolac IM 30 mg IM once Route: IM; Site: right gluteus; bp 12:49 Follow up: Response: No adverse reaction bp Medication: 11:45 VIS not applicable for this client. bp Outcome: 12:09 Discharge ordered by . kb 12:48 Discharged to home via wheelchair, with family, bp 12:48 Condition: stable 12:48 Discharge instructions given to patient, Instructed on discharge instructions, follow up and referral plans. medication usage, Demonstrated understanding of instructions, follow-up care, medications, Prescriptions given X 1, 12:49 Patient left the ED. bp Signatures: Kristel Carballo FNP-C BIOMEDICAL MANAGER-CkNuirka Linn, Reg Reg mr Sherrie Medina, RN RN hb Hesham Beavers, RN RN bp
--- NOTE | 2025-01-19 12:10 | EDPHYS ---
Physician Documentation [facility] Name: Ezequiel Padron Age: 39 yrs Sex: Male : 1985 Arrival Date: 01/19/2025 Time: 11:23 Bed 14 Private MD: ED Physician Kirby Cortes HPI: 01/19 11:32 This 39 yrs old Black Male presents to ER via Unassigned with complaints of Gout flare kb up. 11:32 Patient is a 39-year-old male who presents for gout flareup to the left ankle that kb started last night got worse this morning after taking his boots off when he got off work. States he feels similar to previous episodes of gout. States he feels fine otherwise denies fever. States he knows his blood pressures and to be high but he has no dizziness no headache he feels okay just the pain that he presented for... Historical: - Allergies: 11:39 Nitroglycerin; hb - PMHx: 11:39 Congestive heart failure; Gout; Hypertensive disorder; hb - PSHx: 11:39 femur sx (en); hb - Immunization history:: Adult Immunizations up to date. - Infectious Disease History:: Denies. - Social history:: Smoking status: Patient denies any tobacco usage or history of. ROS: 11:31 Constitutional: As per HPI kb Exam: 11:31 Constitutional: This is a well developed, well nourished patient who is awake, alert, kb and in no acute distress. Head/Face: Normocephalic, atraumatic. ENT: Moist Mucous membranes Cardiovascular: Regular rate Respiratory: Respirations even and unlabored. No increased work of breathing. Talking in full sentences Skin: Warm, dry with normal turgor. Normal color. Neuro: Awake and alert, GCS 15, oriented to person, place, time, and situation. 11:31 Musculoskeletal/extremity: Extremities: grossly normal except: noted in the left lateral ankle and left medial ankle: pain, swelling, tenderness, ROM: limited active range of motion due to pain, Circulation is intact in all extremities. Sensation intact. Weight bearing: able to fully bear weight, Vital Signs: 11:38 BP 200 / 100; Pulse 92; Resp 16; Temp 98.1; Pulse Ox 96% on R/A; Weight 104.33 kg; hb Height 6 ft. 2 in. ; Pain 10/10; 11:38 Body Mass Index 29.53 (104.33 kg, 187.96 cm) hb 11:38 Pain Scale: Adult hb MDM: 11:27 Medical Screening Exam initiated kb 12:07 Differential diagnosis: gout, cellulitis, arthritis. Data reviewed: vital signs, nurses kb notes. Test considered but Not performed: Labs: cbc, cmp considered but pt is nontoxic in appearance, afebrile and this is similar to previous gout flareups. X-ray: ankle xray considered but pt denies injury or trauma, feels similar to previous gout flareups. Counseling: I had a detailed discussion with the patient and/or guardian regarding the historical points, exam findings, and any diagnostic results supporting the discharge/admit diagnosis, the need for outpatient follow up, a family practitioner, to return to the emergency department if symptoms worsen or persist or if there are any questions or concerns that arise at home. Administered Medications: 12:02 Drug: Colcrys PO 1.2 mg PO once Route: PO; bp 12:49 Follow up: Response: No adverse reaction bp 12:02 Drug: [place] PO 10 mg-325 mg 1 tabs PO once Route: PO; bp 12:49 Follow up: Response: No adverse reaction bp 12:02 Drug: Dexamethasone IM 10 mg IM once Route: IM; Site: right gluteus; bp 12:49 Follow up: Response: No adverse reaction bp 12:02 Drug: Ketorolac IM 30 mg IM once Route: IM; Site: right gluteus; bp 12:49 Follow up: Response: No adverse reaction bp Disposition: 15:46 Co-signature as Attending Physician, Kirby Cortes MD I reviewed the patient's care rn provided by the Advanced Practice Provider and agree with the diagnosis and treatment plan. Disposition Summary: 01/19/25 12:09 Discharge Ordered Notes: Location: Home kb Condition: Stable kb Diagnosis - Gout, unspecified kb Followup: kb - With: Emergency Department - When: As needed - Reason: Worsening of condition Followup: kb - With: Private Physician - When: 2 - 3 days - Reason: Recheck today's complaints, Continuance of care, Re-evaluation by your physician Discharge Instructions: - Discharge Summary Sheet kb - Low-Purine Eating Plan kb - Gout, [id number] kb Forms: - Medication Reconciliation Form kb - Antibiotic Education kb - Prescription Opioid Use kb - Patient Portal Instructions kb - Leadership Thank You Letter kb Prescriptions: - Prednisone 20 mg Oral Tablet - take 1 tablet ORAL route once daily for 5 days; 5 tablet; Refills: 0, Product kb Selection Permitted Signatures: Kristel Carballo FNP-C FNP-Ckb Nieto, Roman, MD MD rn Sherrie Medina RN RN Hesham Beavers RN RN bp
[2025-01-19 12:56] VITALS: BP 200/100; TEMP 98.1; O2SAT 96
== END 2025-01-19 12:49 | disposition home or self-care (01) ==
LOC: ER 11:23
DX: M10.9 Gout, unspecified (principal); I11.0 Hypertensive heart disease with heart failure; I50.9 Heart failure, unspecified; Z88.8 Allergy status to other drugs, medicaments and biological substances
CPT/HCPCS: 96372; 99284; J1100

== ENCOUNTER 2025-01-30 16:20 | Emergency (ER) | payer OTHER ==
--- OUTSIDE RECORDS SUMMARY | 2025-01-30 16:26 | XMS REPORT | Continuity of Care Document ---
Author Name Unknown Address [address] [facility] [address] [place] [address] [facility] Address [address] [facility] [address] [place] [address] Care Team Providers Care Licensing Analyst Name Role Phone Pcp, Patient Does Not Have A Primary Care Physic pat Doctor Unassigned, [place] Attending Clinician U jose e Figueroa, Generic Provider Attending Clinician Unavailable MIGDALIA VILLEGAS Attending Clinician Unavailable MIGDALIA VILLEGAS Attending Clinician Unavailable Migdalia Driver Attending Clinician [phone] Cipriano FREDERICK, Basim Sanz Attending Clinician + Tameka Garcia Attending Clinician [phone] Tameka NOVOA Attending Clinician Unavailable Doctor Unassigned, [place] Attending Clinician U Sherrell Erazo RN Attending Clinician Unavailable DIMITRIOS ABEL Attending Clinician UnavailDimitrios Kearney MD Attending Clinician [phone] DIMITRIOS ABEL Admitting Clinician UnavailDimitrios Kearney MD Admitting Clinician [phone] Payers Payer Name Policy Type Policy Number Effective Date Expirati on Date Source Problems Condition Name Condition Details Condition Category Status Onset Date Resolution Date Last Treatment Date Treating Clinician Comments Source SOB (shortness of breath) SOB (shortness of breath) Disease Active 4-14 00:00: 00 [facility] Obesity (BMI 30-39.9) Obesity (BMI 30-39.9) Disease Active 7-21 00:00: 00 [facility] Allergies, Adverse Reactions, Alerts Allergy Name Allergy Type Status Severity Reaction(s) Onset Date Inactive Date Treating Clinician Comments Source MORPHINE DRUG INGREDI Active Unknown-Cmnt 12-06 00:00: 00 [facility] Morphine Propensi ty to adverse reaction s Active Unknown - See comments 12-06 00:00: 00 Patient does not know reaction [facility] NO KNOWN ALLERGIE S Drug Class Active [facility] Social History Social Habit Start Date Stop Date Quantity Comments Source History SDOH Alcohol Std Drinks [facility] History SDOH Alcohol Binge [facility] Alcohol Frequency [facility] History of Social function 2024-06-01 00:00:00 2024-06-01 00:00:00 [facility] Exposure to SARS-CoV-2 (event) 2021-11-26 00:00:00 2021-12-06 12:55:00 Not sure [facility] Alcohol intake 2021-12-06 00:00:00 2021-12-06 00:00:00 Current drinker of alcohol (finding) [facility] Alcohol Comment 2016-11-22 00:00:00 2016-11-22 00:00:00 Daily [facility] Alcoholic beverage intake 2016-11-22 00:00:00 2016-11-22 00:00:00 Current drinker of alcohol (finding) [facility] Tobacco use and exposure 2016-11-22 00:00:00 2016-11-22 00:00:00 Smokeless tobacco non-user [facility] Sex assigned at 1985 00:00:00 1985 00:00:00 [facility] Smoking Status Start Date Stop Date Source Never smoked tobacco [facility] Medications Ordered Medication Name Filled Medication Name Start Date Stop Date Current Medication? Ordering Clinician Indication Dosage Frequency Signature (SIG) Comments Components Source cloNIDine (CATAPRES) tablet 0.1 mg 06-02 04:45: 00 06-02 05:17 :00 No .1mg 0.1 mg, Oral, ONCE, 1 dose, On Sat06/01/24 at 2245, STAT [facility] HYDROcodone -acetaminop hen (NORCO 5) tablet 1 tablet 06-02 04:45: 00 06-02 05:17 :00 No 1{tbl} 1 tablet, Oral, ONCE, 1 dose, On Sat06/01/24 at 2245, [facility] methylpredn isolone sod succ (SOLU-MEDRO L) injection 125 mg 06-02 04:40: 00 06-02 05:18 :00 No 125mg 125 mg, Intramuscu lar, ONCE NOW, 1 dose, On Sat06/01/24 at 2245, [facility] acetaminoph en-codeine 300-30 mg tablet 06-02 00:00: 00 06-10 05:59 :00 No [id number] 1{tbl} Take 1 tablet by mouth every 8 (eight) hours as needed for Pain (scale 4-6) for up to 7 days. Indication s: acute pain [facility] lisinopriL (PRINIVIL,Z ESTRIL) tablet 20 mg 12-07 14:00: 00 Yes 20mg 20 mg, Oral, DAILY, First dose on Viktoriya 12/07/21 at 0900, Until Discontinu ed, Routine [facility] HYDROcodone -acetaminop hen (NORCO) 10-325 mg tablet 1 tablet 12-06 17:15: 00 12-06 16:12 :00 No 1{tbl} 1 tablet, Oral, ONCE, 1 dose, On Sat12/06/21 at 1215, [facility] carvediloL (COREG) tablet 25 mg 12-06 17:15: 00 12-06 16:12 :00 No 25mg 25 mg, Oral, ONCE, 1 dose, On Sat12/06/21 at 1215, Routine [facility] methylpredn isolone sod succ (SOLU-MEDRO L) injection 125 mg 12-06 16:45: 00 12-06 16:09 :00 No 125mg 125 mg, Intramuscu lar, ONCE, 1 dose, On Sat12/06/21 at 1145, REGINA [facility] predniSONE 20 mg tablet 12-06 00:00: 00 Yes [id number] 1 PO BID x 4 days [facility] acetaminoph en-codeine 300-30 mg tablet 12-06 00:00: 00 Yes [id number] 1{tbl} Take 1 tablet by mouth every 4 (four) hours as needed for Pain (scale 4-6). Indication s: acute pain [facility] aspirin 81 mg chewable tablet 09-14 00:00: 00 Yes [id number] 81mg Take 1 tablet by mouth daily. [facility] atorvastati n 40 mg tablet 09-14 00:00: 00 Yes [id number] 40mg Take 1 tablet by mouth at bedtime. [facility] carvediloL 25 mg tablet 09-14 00:00: 00 Yes [id number] 37.5mg Take 1.5 tablets by mouth 2 (two) times daily with meals. [facility] furosemide 40 mg tablet 09-14 00:00: 00 Yes [id number] 40mg Take 1 tablet by mouth every morning and evening. [facility] lisinopriL 10 mg tablet 09-14 00:00: 00 Yes [id number] 30mg Take 3 tablets by mouth daily. [facility] spironolact one 25 mg tablet 09-14 00:00: 00 Yes [id number] 25mg Take 1 tablet by mouth daily. [facility] aspirin 81 mg chewable tablet -19 00:00: 00 09-14 00:00 :00 No [id number] 81mg Take 1 tablet by mouth daily for 180 days. [facility] lisinopriL 10 mg tablet 08-22 00:00: 00 09-14 00:00 :00 No [id number] 30mg Take 3 tablets by mouth daily for 180 days. [facility] spironolact one 25 mg tablet 08-22 00:00: 00 09-14 00:00 :00 No [id number] 25mg Take 1 tablet by mouth daily for 180 days. [facility] carvediloL (COREG) tablet 37.5 mg 08-21 22:00: 00 Yes 37.5mg 37.5 mg, Oral, BID MEALS, First dose (after last modificati on) on Sat08/21/21 at 1700, Until Discontinu ed, Routine [facility] lisinopriL (PRINIVIL,Z ESTRIL) tablet 30 mg 08-21 14:00: 00 Yes 30mg 30 mg, Oral, DAILY, First dose (after last modificati on) on Sat08/21/21 at 0900, Until Discontinu ed, Routine [facility] magnesium oxide (MAG-OX 400) tablet 400 mg 08-21 13:45: 00 08-21 13:20 :00 No 400mg 400 mg, Oral, ONCE, 1 dose, On Sat08/21/21 at 0845, Routine [facility] amLODIPine 10 mg tablet 08-21 11:33: 41 08-21 00:00 :00 No 10mg Take 10 mg by mouth daily. [facility] hydroCHLORO thiazide 25 mg tablet 08-21 11:33: 41 08-21 00:00 :00 No 25mg Take 25 mg by mouth daily. [facility] ibuprofen 800 mg tablet 08-21 11:33: 41 08-21 00:00 :00 No 800mg Take 800 mg by mouth 2 (two) times daily. [facility] hydrALAZINE (APRESOLINE ) tablet 10 mg 08-21 07:00: 00 08-21 06:05 :00 No 10mg 10 mg, Oral, ONCE, 1 dose, On Sat08/21/21 at 0200, Routine [facility] atorvastati n 40 mg tablet 08-21 00:00: 00 09-14 00:00 :00 No [id number] 40mg Take 1 tablet by mouth at bedtime for 180 days. [facility] furosemide 40 mg tablet 08-21 00:00: 00 09-14 00:00 :00 No [id number] 40mg Take 1 tablet by mouth every morning and evening for 180 days. [facility] carvediloL 25 mg tablet 08-21 00:00: 00 09-14 00:00 :00 No [id number] 37.5mg Take 1.5 tablets by mouth 2 (two) times daily with meals for 180 days. [facility] carvediloL 25 mg tablet 08-21 00:00: 00 08-21 00:00 :00 No [id number] 25mg Take 1 tablet by mouth 2 (two) times daily with meals for 180 days. [facility] furosemide (LASIX) tablet 40 mg 08-20 14:00: 00 Yes 40mg 40 mg, Oral, QAM+PM, First dose (after last modificati on) on Sat08/20/21 at 0900, Until Discontinu ed, Routine [facility] lisinopriL (PRINIVIL,Z ESTRIL) tablet 20 mg 08-20 14:00: 00 08-21 11:42 :47 No 20mg 20 mg, Oral, DAILY, First dose (after last modificati on) on Sat08/20/21 at 0900, Until Discontinu ed, Routine [facility] carvediloL (COREG) tablet 25 mg 08-20 13:00: 00 08-21 17:46 :56 No 25mg 25 mg, Oral, BID MEALS, First dose (after last modificati on) on 08/20/21 at 0800, Until Discontinu ed, Routine [facility] lisinopriL (PRINIVIL,Z ESTRIL) tablet 5 mg 08-19 15:00: 00 08-19 14:30 :00 No 5mg 5 mg, Oral, ONCE, 1 dose, On Sat08/19/21 at 1000, [facility]ine [facility] [...] Until Discontinu ed, Routine, SBP >180 [facility] lisinopriL (PRINIVIL,Z ESTRIL) tablet 10 mg 08-18 [...] at 1647, Routine, SBP >180 [facility] sulfur hexafluorid e microsphr (LUMASON) injection 5 mL 08-17 20:45: 00 08-17 20:45 :00 No [id number] 5mL 5 mL, Intravenou s, ONCE, 1 dose, On Sat08/17/21 at 1545, Routine
membership director approving Restricted medication : DEZ QIU [facility] magnesium sulfate in water 4 gram/50 mL (8 %) IV Piggyback 4 g 08-17 18:15: 00 08-17 18:29 :00 No 4g 4 g, IV Piggyback, ONCE, 1 dose, On Viktoriya 08/17/21 at 1315, Routine [facility] KCL (KLOR-CON M20) tablet 40 mEq 08-17 18:15: 00 08-17 18:10 :00 No 40meq 40 mEq, Oral, ONCE, 1 dose, On Viktoriya 08/17/21 at 1315, Routine [facility] furosemide (LASIX) injection 40 mg 08-17 17:15: 00 08-18 12:42 :25 No 40mg 40 mg, Slow IV Push, Q12H, First dose on Viktoriya 08/17/21 at 1215, Until Discontinu ed, Routine [facility] acetaminoph en (TYLENOL) tablet 650 mg 08-17 14:09: 58 Yes 650mg 650 mg, Oral, Q6HPRN, Starting on Sat08/17/21 at 0909, Until Discontinu ed, Routine, Pain (scale 1-3) [facility] amLODIPine 10 mg tablet 08-17 09:16: 15 Yes 10mg Take 10 mg by mouth daily. [facility] hydroCHLORO thiazide 25 mg tablet 08-17 09:16: 15 Yes 25mg Take 25 mg by mouth daily. [facility] ibuprofen 800 mg tablet 08-17 09:16: 15 Yes 800mg Take 800 mg by mouth 2 (two) times daily. [facility] Vital Signs Vital Name Observation Time Observation Value Comments S qi Systolic blood pressure 2024-06-02 06:00:00 183 mm[Hg] [facility] Diastolic blood pressure 2024-06-02 06:00:00 132 mm[Hg] [facility] Heart rate 2024-06-02 05:18:00 82 /min [facility] Body temperature 2024-06-02 05:18:00 37 Anastasiia [facility] Respiratory rate 2024-06-02 05:18:00 20 /min [facility] Oxygen saturation in Arterial blood by Pulse oximetry 2024-06-02 05:18:00 100 /min [facility] Body height 2024-06-02 03:39:00 182.9 cm [facility] Body weight 2024-06-02 03:39:00 102.377 kg [facility] BMI 2024-06-02 03:39:00 30.61 kg/m2 [facility] Systolic blood pressure 2021-12-06 17:40:07 158 mm[Hg] [facility] Diastolic blood pressure 2021-12-06 17:40:07 105 mm[Hg] [facility] Heart rate 2021-12-06 15:43:00 91 /min [facility] Respiratory rate 2021-12-06 15:43:00 20 /min [facility] Oxygen saturation in Arterial blood by Pulse oximetry 2021-12-06 15:43:00 97 /min [facility] Body temperature 2021-12-06 14:49:00 36.61 Anastasiia [facility] Body height 2021-12-06 14:49:00 182.9 cm [facility] Body weight 2021-12-06 14:49:00 99.791 kg [facility] BMI 2021-12-06 14:49:00 29.84 kg/m2 [facility] Systolic blood pressure 2021-08-21 20:39:00 143 mm[Hg] [facility] Diastolic blood pressure 2021-08-21 20:39:00 104 mm[Hg] [facility] Heart rate 2021-08-21 20:39:00 79 /min [facility] Body temperature 2021-08-21 20:39:00 36 Anastasiia [facility] Respiratory rate 2021-08-21 20:39:00 18 /min [facility] Oxygen saturation in Arterial blood by Pulse oximetry 2021-08-21 20:39:00 99 /min [place] [facility] Body weight 2021-08-21 10:57:00 104.055 kg [facility] BMI 2021-08-21 10:57:00 31.11 kg/m2 [facility] Body height 2021-08-18 10:31:00 182.9 cm [facility] Procedures Procedure Date / Time Performed Performing Clinician Source NOTICE OF PRIVACY PRACTICES 2021-12-06 14:38:21 Doctor Unassigned, [place] [facility] CONSENT/REFUSAL FOR DIAGNOSIS AND TREATMENT 2021-12-06 14:38:03 Doctor Unassigned, [place] [facility] AUTHORIZATION FOR RELEASE OF PHI 2021-09-01 05:01:00 Doctor Unassigned, [place] [facility] MAGNESIUM 2021-08-21 08:42:00 Eryn Cowart [facility] BASIC METABOLIC PANEL (NA, K, CL, CO2, GLUCOSE, BUN, CREATININE, CA) 2021-08-21 08:42:00 [facility] N-TERMINAL PRO-BNP 2021-08-21 08:42:00 Gaston Elizabeth [facility] HB ECG ROUTINE & RHYTHM STRIP 2021-08-20 [facility] 2021-08-20 09:22:00 Letty March [facility] BASIC METABOLIC PANEL (NA, K, CL, CO2, GLUCOSE, BUN, CREATININE, CA) 2021-08-20 09:22:00 [facility] 2021-08-20 09:22:00 Letty March [facility] HB ECG ROUTINE & RHYTHM STRIP 2021-08-19 13:08:[facility] 2021-08-19 10:21:00 Gaston Elizabeth [facility] BASIC METABOLIC PANEL (NA, K, CL, CO2, GLUCOSE, BUN, CREATININE, CA) 2021-08-19 10:21:00 Gaston Elizabeth [facility] BASIC METABOLIC PANEL (NA, K, CL, CO2, GLUCOSE, BUN, CREATININE, CA) 2021-08-18 19:41:00 [facility] HB ECG ROUTINE & RHYTHM STRIP 2021-08-18 14:50:24 [facility] MAGNESIUM 2021-08-18 09:10[facility] (NA, K, CL, CO2, GLUCOSE, BUN, CREATININE, CA) 2021-08-18 09:10:00 [facility] CBC WITH DIFF 2021-08-18 09:10:[address] [facility] TROPONIN I 2021-08-17 23:58:[address] [facility] TRANSTHORACIC ECHO (TTE) COMPLETE W/ CONTRAST 2021-08-17 18:53:00 [facility] PHOSPHORUS 2021-08-17 15:43:00 [facility] 2021-08-17 15:43:[address] [facility] FERRITIN SERUM 2021-08-17 15:43:00 Eryn Cowart [facility] TROPONIN I 2021-08-17 15:43:[address] [facility] THYROID STIMULATING HORMONE 2021-08-17 15:43:00 [facility] HEPATIC FUNCTION PANEL (17695) (ALB,T.PRO,BILI T,BU/BC,ALT,AST,ALK PHOS) 2021-08-17 15:43:00 [facility] BASIC METABOLIC PANEL (NA, K, CL, CO2, GLUCOSE, BUN, CREATININE, CA) 2021-08-17 15:43:00 [facility] IRON PANEL 2021-08-17 15:43:[address] [facility] CBC WITH DIFF 2021-08-17 15:43:[address] [facility] GLYCOSYLATED HEMOGLOBIN (A1C) 2021-08-17 15:43:00 Eryn Cowart [facility] N-TERMINAL PRO-BNP 2021-08-17 15:43:00 Eryn Cowart [facility] XR CHEST 1 VW 2021-08-17 15:10:00 Eryn Cowart [facility] EXTERNAL PROVIDER RECORDS 2016-11-23 05:01:00 Doctor Unassigned, [place] [facility] DAY SURGERY - ADC 2016-11-23 05:01:00 Doctor Ivonne ssigned, [place] [facility] Encounters Start Date/Time End Date/Time Encounter Type Admission Type Attending Clinicians Care Facility Care Department Encounter ID Source 2024-08-03 13:47:27 2024-08-03 13:47:27 Outpatient [facility] [id number] Gucci Philippe Bairon 2016-11-23 00:00:00 2024-06-20 03:42:57 Orders Only Doctor Unassigned, [place] Doctor Unassigned, [place] [facility] (COUNTS [facility] BEDS AT THE [facility]) [id number] [id number] [id number] [id number] [facility] 2024-06-10 00:00:00 2024-06-10 11:09:01 Letter (Out) Campaigns, Generic Provider Campaigns, Generic Provider [facility] (COUNTS INCLUDE 234 BEDS AT THE [facility]) [id number] 350.1.13.10 4.2.7.2.686 [id number] [facility] 2024-06-01 21:44:00 2024-06-02 00:17:00 Emergency X MIGDALIA VILLEGAS [facility] ERT [id number] [facility] 2024-06-01 21:44:00 2024-06-02 00:17:00 Emergency Migdalia Villegas [facility] [id number] 350.1.13.10 4.2.7.2.686 [id number] [facility] 2024-03-30 10:06:11 2024-03-30 10:06:11 Outpatient [facility] [id number] Gucci Waddell 2022-08-17 00:00:00 2022-08-17 00:00:00 [facility] 1..114 350.1.13.10 4.2.7.2.686 [id number] [facility] 2021-12-06 09:51:00 2021-12-06 13:09:00 Emergency Tameka Novoa [facility] 1..114 350.1.13.10 4.2.7.2.686 [id number] [facility] 2021-12-06 09:51:00 2021-12-06 13:09:00 Emergency X Tameka NOVOA [facility] ERT [id number] [facility] 2021-12-06 00:00:00 2021-12-06 00:00:00 Orders Only Doctor Unassigned, [place] [facility] 1..114 350.1.13.10 4.2.7.2.686 [id number] [facility] 2021-09-14 00:00:00 2021-09-14 00:00:00 [facility] 1..114 350.1.13.10 4.2.7.2.686 [id number] [facility] 2021-09-12 00:00:00 2021-09-12 00:00:00 Telephone Basim Cota [facility] 1..114 350.1.13.10 4.2.7.2.686 [id number] [facility] 2021-09-01 00:00:00 2021-09-01 00:00:00 Telephone Khalife, [facility] 1.2840.114 350.1.13.10 4.2.7.2.686 [id number] [facility] 2021-09-01 00:00:00 2021-09-01 00:00:00 Orders Only Doctor Unassigned, [place] [facility] 1.2840.114 350.1.13.10 4.2.7.2.686 [id number] [facility] 2021-08-30 00:00:00 2021-08-30 00:00:00 Telephone [facility] 1.840.114 350.1.13.10 4.2.7.2.686 [id number] [facility] 2021-08-22 00:00:00 2021-08-22 00:00:00 Transition of Care Sherrell Neumann 1.840.114 350.1.13.10 4.2.7.2.686 [id number] [facility] 2021-08-17 08:35:00 2021-08-21 17:42:00 Inpatient U DIMIRTIOS ABEL [facility] [id number] [facility] 2021-08-17 08:35:00 2021-08-21 17:42:00 Hospital Encounter Basim Cota SanzDimitrios Douglass [facility] 1.840.114 350.1.13.10 4.2.7.2.686 [id number] [facility] 2021-08-18 00:00:00 2021-08-18 00:00:00 Telephone Dimitrios Abel [facility] 1.2840.114 350.1.13.10 4.2.7.2.686 [id number] [facility] Results Test Description Test Time Test Comments Results Result Co mments Source [facility] METABOLIC PANEL (NA, K, CL, CO2, GLUCOSE, BUN, CREATININE, CA)2021-08-21 10:07:34* Test Item Value Reference Range Interpretation Comme nts NA (test code = 7201337926) 135 mmol/L 135-145 K (test code = 2108885713) 4.4 mmol/L 3.5-5.0 CL (test code = 2264152551) 102 mmol/L 98-108 CO2 TOTAL (test code = 6545797569) 26 mmol/L 23-31 AGAP (test code = 2701190559) 2-16 BUN (test code = 5204250005) 27 mg/dL 7-23 H GLUCOSE (test code = 9389126105) 104 mg/dL 70-110 CREATININE (test code = 0723517288) 1.49 mg/dL 0.60-1.25 H CALCIUM (test code = 6816324322) 9.0 mg/dL 8.6-10.6 eGFR (test code = 6420402384) mL/min/1.73m2 EBEN (test code = EBEN) Association [...] imaging tests). Lab Interpretation (test code = 23929-8) [facility]normal [facility] 10:07:34* Test Item Value Reference Range Interpretation Comme nts MAGNESIUM (test code = 5647691066) 1.9 mg/dL 1.7-2.4 Lab Interpretation (test cod e = 35684-4) Normal [facility] (NA, K, CL, CO2, GLUCOSE, BUN, CREATININE, CA)2021-08-20 10:22:59* Test Item Value Reference Range Interpretation Comme nts NA (test code = 1027395809) 137 mmol/L 135-145 K (test code = 8283135336) 4.4 mmol/L 3.5-5.0 CL (test code = 2656614689) 102 mmol/L 98-108 CO2 TOTAL (test code = 7406450912) 26 mmol/L 23-31 AGAP (test code = 9170865388) 2-16 BUN (test code = 7611860027) 31 mg/dL 7-23 H GLUCOSE (test code = 9403434078) 119 mg/dL 70-110 H CREATININE (test code = 4693341154) 1.56 mg/dL 0.60-1.25 H CALCIUM (test code = 3003853068) 9.1 mg/dL 8.6-10.6 eGFR (test code = 6476495860) mL/min/1.73m2 EBEN (test code = EBEN) Association [...] imaging tests). Lab Interpretation (test code = 14042-6) Abnormal [facility] 10:22:59* Test Item Value Reference Range Interpretation Comme nts MAGNESIUM (test code = 7978361541) 2.1 mg/dL 1.7-2.4 Lab Interpretation (test cod e = 33819-9) Normal [facility] WITH [id number] 09:42:15* Test Item Value Reference Range Interpretation Comme nts WBC (test code = 6690-2) See_Comment H [Automated [employer]] The system which generated this result transmitted reference range: 4.20 - 10.70 10*3/?L. The reference range was not used to interpret this result as normal/abnormal. RBC (test code = 789-8) See_Comment [Automated [employer]] The system which generated this result transmitted [...] 32.8 g/dL 31.2-35.0 RDW-SD (test code = 04315-6) 39.3 fL 38.5-51.6 RDW-CV (test code = 788-0) 12.5 % 12.1-15.4 PLT (test code = 777-3) See_Comment H [Automated messa ge] The system which generated this result transmitted reference range: 150 - 328 10*3/?L. The reference range was not used to interpret this result as normal/abnormal. MPV (test code = 84292-2) 9.3 fL 9.8-13.0 L NRBC/100 WBC (test code = 7485340550) See_Comment [Automated [employer] ssage] The system which generated this result transmitted reference range: 0.0 - 10.0 /100 WBCs. The reference range was not used to interpret this result as normal/abnormal. NRBC x10^3 (test code = 7285814136) <0.01 See_Comment [Automated messa ge] The system which generated this result transmitted reference range: 10*3/?L. The reference range was not used to interpret this result as normal/abnormal. GRAN MAT (NEUT) % (test code = 770-8) 60.5 % IMM GRAN % (test code = 4045679467) 0.30 % LYMPH % (test code = 736-9) 26.7 % MONO % (test code = 5905-5) 8.3 % EOS % (test code = 713-8) 3.4 % BASO % (test code = 706-2) 0.8 % GRAN MAT x10^3(ANC) (test code = 1369944693) 7.17 10*3/uL 1.99-6.95 H IMM GRAN x10^3 (test code = 8902520761) 0.03 10*3/uL 0.00-0.06 LYMPH x10^3 (test code = 731-0) 3.16 10*3/uL 1.09-3.23 MONO x10^3 (test code = 742-7) 0.98 10*3/uL 0.36-1.02 EOS x10^3 (test code = 711-2) 0.40 10*3/uL 0.06-0.53 BASO x10^3 (test code = 704-7) 0.10 10*3/uL 0.01-0.09 H Lab Interpretation (test code = 08835-4) Abnormal [facility] METABOLIC PANEL (NA, K, CL, CO2, GLUCOSE, BUN, CREATININE, CA)2021-08-19 10:52:12* Test Item Value Reference Range Interpretation Comme nts NA (test code = 7063834210) 136 mmol/L 135-145 K (test code = 1319856900) 3.8 mmol/L 3.5-5.0 CL (test code = 9162343143) 100 mmol/L 98-108 CO2 TOTAL (test code = 6022858994) 29 mmol/L 23-31 AGAP (test code = 2976280858) 2-16 BUN (test code = 7814109247) 32 mg/dL 7-23 H GLUCOSE (test code = 1168188045) 115 mg/dL 70-110 H CREATININE (test code = 7595184072) 1.67 mg/dL 0.60-1.25 H CALCIUM (test code = 3492755153) 9.1 mg/dL 8.6-10.6 eGFR (test code = 7942675598) mL/min/1.73m2 EBEN (test code = EBEN) Association [...] imaging tests). Lab Interpretation (test code = 67145-8) [facility] 10:52:12* Test Item Value Reference Range Interpretation Comme nts MAGNESIUM (test code = 5125382530) 1.9 mg/dL 1.7-2.4 Lab Interpretation (test cod e = 59887-8) [facility] (NA, K, CL, CO2, GLUCOSE, BUN, CREATININE, CA)2021-08-18 21:19:06* Test Item Value Reference Range Interpretation Comme nts NA (test code = 6843410662) 135 mmol/L 135-145 K (test code = 0407533944) 3.9 mmol/L 3.5-5.0 CL (test code = 6739833857) 98 mmol/L 98-108 CO2 TOTAL (test code = 1069777067) 30 mmol/L 23-31 AGAP (test code = 9132019967) 2-16 BUN (test code = 2223150301) 29 mg/dL 7-23 H GLUCOSE (test code = 8796212425) 121 mg/dL 70-110 H CREATININE (test code = 3854836359) 1.58 mg/dL 0.60-1.25 H CALCIUM (test code = 1477082069) 8.9 mg/dL 8.6-10.6 eGFR (test code = 9546950556) mL/min/1.73m2 EBEN (test code = EBEN) Association [...] imaging tests). Lab Interpretation (test code = 51332-8) [facility] (NA, K, CL, CO2, GLUCOSE, BUN, CREATININE, CA)2021-08-18 10:04:44* Test Item Value Reference Range Interpretation Comme nts NA (test code = 7095903239) 135 mmol/L 135-145 K (test code = 1123749709) 4.0 mmol/L 3.5-5.0 Slight hemolysis CL (test code = 6360152259) 101 mmol/L 98-108 CO2 TOTAL (test code = 1408164930) 29 mmol/L 23-31 AGAP (test code = 7973091134) 2-16 BUN (test code = 2103173220) 32 mg/dL 7-23 H Slight hemolysis GLUCOSE (test code = 2860835282) 114 mg/dL 70-110 H CREATININE (test code = 3605271210) 1.54 mg/dL 0.60-1.25 H CALCIUM (test code = 8065403623) 8.8 mg/dL 8.6-10.6 eGFR (test code = 3815584222) mL/min/1.73m2 EBEN (test code = EBEN) Association [...] imaging tests). Lab Interpretation (test code = 73574-8) [facility]15 10:04:44* Test Item Value Reference Range Interpretation Comme nts MAGNESIUM (test code = 4219423685) 2.2 mg/dL 1.7-2.4 Lab Interpretation (test cod e = 68485-9) Normal [facility] WITH [id number] 09:24:38* Test Item Value Reference Range Interpretation Comme nts WBC (test code = 6690-2) See_Comment [Automated [employer]] The system which generated this result transmitted reference range: 4.20 - 10.70 10*3/?L. The reference range was not used to interpret this result as normal/abnormal. RBC (test code = 789-8) See_Comment [Automated [employer]] The system which generated this result transmitted [...] 33.3 g/dL 31.2-35.0 RDW-SD (test code = 97497-1) 39.1 fL 38.5-51.6 RDW-CV (test code = 788-0) 12.6 % 12.1-15.4 PLT (test code = 777-3) See_Comment H [Automated messa ge] The system which generated this result transmitted reference range: 150 - 328 10*3/?L. The reference range was not used to interpret this result as normal/abnormal. MPV (test code = 39584-0) 9.5 fL 9.8-13.0 L NRBC/100 WBC (test code = 0243328210) See_Comment [Automated [employer] ssage] The system which generated this result transmitted reference range: 0.0 - 10.0 /100 WBCs. The reference range was not used to interpret this result as normal/abnormal. NRBC x10^3 (test code = 4090972071) <0.01 See_Comment [Automated messa ge] The system which generated this result transmitted reference range: 10*3/?L. The reference range was not used to interpret this result as normal/abnormal. GRAN MAT (NEUT) % (test code = 770-8) 65.3 % IMM GRAN % (test code = 1018171911) 0.20 % LYMPH % (test code = 736-9) 23.3 % MONO % (test code = 5905-5) 7.0 % EOS % (test code = 713-8) 3.5 % BASO % (test code = 706-2) 0.7 % GRAN MAT x10^3(ANC) (test code = 8169796410) 6.63 10*3/uL 1.99-6.95 IMM GRAN x10^3 (test code = 1871681368) <0.03 0.00-0.06 LYMPH x10^3 (test code = 731-0) 2.36 10*3/uL 1.09-3.23 MONO x10^3 (test code = 742-7) 0.71 10*3/uL 0.36-1.02 EOS x10^3 (test code = 711-2) 0.35 10*3/uL 0.06-0.53 BASO x10^3 (test code = 704-7) 0.07 10*3/uL 0.01-0.09 Lab Interpretation (test code = 03891-7) [facility]A1C)2021-08-18 02:37:07* Test Item Value Reference Range Interpretation Comme nts HGB A1C (test code = 4548-4) 5.8 % 4.0-5.7 H EBEN (test code = EBEN) Reference RangesNormal: <5.7%Prediabetes: 5.7 - 6.4%Diabetes: > 6.5% Lab Interpretation (test code = 05440-6) [facility]normal [facility] [id number] 01:03:37* Test Item Value Reference Range Interpretation Comments TROPONIN I (test code = 7633278444) 0.101 ng/mL See_Comment H [Automated message] The [...] of biotin. Lab Interpretation (test code = 36654-9) [facility]normal [facility]2021-08-17 22:14:20* Test Item Value Reference Range Interpretation Comme nts Ao root annulus (test code = 5924099329) 3.3 cm Ao root diam (test code = 1545645987) 3.30 cm Aortic root (test code = 9021496362) 3.3 cm LA size (test code = 7017480977) 3.7 cm LVOT diameter (test code = 6696454027) 2.00 cm LVIDD (test code = 0299969737) 5.90 cm IVS (test code = 5249577606) 1.26 cm Interventricular Septum Diastolic Thickness by 2D (test code = 7995967) 1.26 cm LVPWD (test code = 5749808824) 1.19 cm PW (test code = 8250577864) 1.19 cm 0.6-1.1 EF(Teich) (test code = 7130430616) 46.60 % LVIDS (test code = 8679597670) 4.50 cm FS (test code = 2498820315) 24 % EF - 2D (test code = 24584235) 46.60 % LAV(MOD-sp4) (test code = 1939125385) 65.30 mL MV Peak E Narciso (test code = 3997949543) 126.4 cm/s E wave decelartion time (test code = 5838310032) 0.14 s MV Prop V (test code = 6900282320) 35.00 cm/s LVOT stroke volume (test code = 1108998882) 45.10 cm3 LVOT peak narciso (test code = 5905447043) 90.0 cm/s LVOT mn grad (test code = 9632273032) mmHg AV LVOT peak gradient (test code = 9954111018) mmHg LVOT peak VTI (test code = 2271444643) 14.4 cm LV V1 mean (test code = 4464903399) 63.00 cm/s Aortic valve mean velocity (test code = 7823419108) 76.8 cm/s Ao peak narciso (test code = 5836334916) 125.5 cm/s Ao VTI (test code = 0421813995) 17.0 cm AV area by cont VTI (test code = 7003352512) 2.6 cm2 AV area peak narciso (test code = 6501853447) 2.2 cm2 Ao max PG (test code = 0763550121) 6.30 mm[Hg] AV peak gradient (test code = 4629201030) mmHg AV valve area (test code = 2451269417) 2.60 cm2 AV mean gradient (test code = 3619151524) mmHg TR Peak Narciso (test code = 7566761152) 119.4 cm/s Triscuspid Valve Regurgitation Peak Gradient (test code = 8938726846) mmHg Tapse (test code = 1144176224) 1.95 cm LA volume (BP) (test code = 7001221773) 73.5 mL LAV(MOD-sp2) (test code = 6085064081) 74.00 mL LA Volume Index (BP) (test code = 6640970214) 32.5 mL/m2 LV Diastolic Volume (BP) (test code = 8268521712) 232.2 mL EF(MOD-bp) (test code = 9175590558) 33.10 % LV Systolic Volume (BP) (test code = 5867904320) 155.2 mL SV(MOD-bp) (test code = 2093463892) 76.90 mL EF (test code = 5172602662) 33 % Left Ventricular Stroke Volume by 2-D Biplane-MOD (test code = 1276038) 76.9 mL Radiology Study observation (narrative) (test code = 68949-5) EBEN (test code = EBEN) ?Left?Ventricle: Left [...] (104.3 kg) 2.3 sq meters 183/126 82 [facility]98840[facility] (ALB,T.PRO,BILI T,BU/BC,ALT,AST,ALK PHOS)2021-08-17 17:59:20* Test Item Value Reference Range Interpretation Comme nts TOTAL BILI (test code = 9411236547) 0.4 mg/dL 0.1-1.1 BILI UNCON (test code = 8351489132) 0.4 mg/dL 0.1-1.1 BILI CONJ (test code = 3145903928) 0.0 mg/dL 0.0-0.3 T PROTEIN (test code = 9090806280) 6.4 g/dL 6.3-8.2 ALBUMIN (test code = 2771732248) 3.7 g/dL 3.5-5.0 ALK PHOS (test code = 9957463416) 64 U/L 34-122 ALTv (test code = 1742-6) 39 U/L 5-50 AST(SGOT) (test code = 2109208600) 30 U/L 13-40 Lab Interpretation (test cod e = 07199-0) Normal [facility] [id number] 17:21:19* Test Item Value Reference Range Interpretation Comme nts FERRITIN (test code = 4291359535) 29.7 ng/mL 18.0-464.0 EBEN (test code = EBEN) Biotin has been reported to cause a negative bias, interpret results relative to patient's use of biotin. Lab Interpretation (test code = 38238-1) Normal [facility]YROID STIMULATING [id number] 17:14:24 * Test Item Value Reference Range Interpretation Comme nts TSH (test code = 0930133038) See_Comment [Automated [employer]] The system which generated this result transmitted reference range: 0.45 - 4.70 mIU/L. The reference range was not used to interpret this result as normal/abnormal. Lab Interpretation (test code = 71062-5) Normal [facility]villeN-TERMINAL [id number] 16:55:55* Test Item Value Reference Range Interpretation Comme nts NT-proBNP (test code = 9452226921) 5070 pg/mL See_Comment H [Automated message] The system which generated this result transmitted reference range: <=125. The reference range was not used to interpret this result as normal/abnormal. EBEN (test code = EBEN) Biotin has been reported to cause a negative bias, interpret results relative to patient's use of biotin. Lab Interpretation (test code = 88302-5) Abnormal [facility] [id number] 16:55:55* Test Item Value Reference Range Interpretation Comments TROPONIN I (test code = 9563329622) 0.117 ng/mL See_Comment H [Automated message] The [...] of biotin. Lab Interpretation (test code = 75702-9) [facility]normal [facility]villeIRON [id number] 16:52:53* Test Item Value Reference Range Interpretation Comme nts IRON (test code = 0577724487) 51 ug/dL 50-160 TIBC (test code = 7891659986) 298 ug/dL 250-410 % FE SAT (test code = 5905082201) 17 % 20-50 L Lab Interpretation (test cod e = 29672-9) [facility]normal [facility]2022-04-14 16:41:35* Test Item Value Reference Range Interpretation Comme nts MAGNESIUM (test code = 4271118586) 1.6 mg/dL 1.7-2.4 L Lab Interpretation (test cod e = 12947-1) [facility]normal [facility]OS[facility]2022-04-14 16:41:35* Test Item Value Reference Range Interpretation Comme nts PHOSPHORUS (test code = 9382531405) 4.0 mg/dL 2.5-5.0 Lab Interpretation (test cod e = 64474-4) Normal [facility]OLIC [facility] (NA, K, CL, CO2, GLUCOSE, BUN, CREATININE, CA)2021-08-17 16:41:35* Test Item Value Reference Range Interpretation Comme nts NA (test code = 9548359099) 134 mmol/L 135-145 L K (test code = 0782839469) 3.6 mmol/L 3.5-5.0 CL (test code = 1214186455) 99 mmol/L 98-108 CO2 TOTAL (test code = 3274217950) 32 mmol/L 23-31 H AGAP (test code = 7767834053) 2-16 BUN (test code = 2675895780) 24 mg/dL 7-23 H GLUCOSE (test code = 5736010787) 111 mg/dL 70-110 H CREATININE (test code = 9124716933) 1.60 mg/dL 0.60-1.25 H CALCIUM (test code = 0866039437) 8.8 mg/dL 8.6-10.6 eGFR (test code = 5399847766) mL/min/1.73m2 EBEN (test code = EBEN) Association [...] imaging tests). Lab Interpretation (test code = 96930-6) Abnormal [facility] WITH [id number] 16:00:05* Test Item Value Reference Range Interpretation [...] 33.7 g/dL 31.2-35.0 RDW-SD (test code = 50017-6) 39.5 fL 38.5-51.6 RDW-CV (test code = 788-0) 12.6 % 12.1-15.4 PLT (test code = 777-3) See_Comment H [Automated messa ge] The system which generated this result transmitted reference range: 150 - 328 10*3/?L. The reference range was not used to interpret this result as normal/abnormal. MPV (test code = 47588-0) 9.4 fL 9.8-13.0 L NRBC/100 WBC (test code = 8157196327) See_Comment [Automated [employer] ssage] The system which generated this result transmitted reference range: 0.0 - 10.0 /100 WBCs. The reference range was not used to interpret this result as normal/abnormal. NRBC x10^3 (test code = 0429730103) <0.01 See_Comment [Automated messa ge] The system which generated this result transmitted reference range: 10*3/?L. The reference range was not used to interpret this result as normal/abnormal. GRAN MAT (NEUT) % (test code = 770-8) 65.6 % IMM GRAN % (test code = 0592918298) 0.20 % LYMPH % (test code = 736-9) 23.8 % MONO % (test code = 5905-5) 6.7 % EOS % (test code = 713-8) 3.2 % BASO % (test code = 706-2) 0.5 % GRAN MAT x10^3(ANC) (test code = 1852326650) 6.58 10*3/uL 1.99-6.95 IMM GRAN x10^3 (test code = 6890450803) <0.03 0.00-0.06 LYMPH x10^3 (test code = 731-0) 2.39 10*3/uL 1.09-3.23 MONO x10^3 (test code = 742-7) 0.67 10*3/uL 0.36-1.02 EOS x10^3 (test code = 711-2) 0.32 10*3/uL 0.06-0.53 BASO x10^3 (test code = 704-7) 0.05 10*3/uL 0.01-0.09 Lab Interpretation (test code = 29155-4) Abnormal [facility] Notes Date/Time Note Provider Source 2024-06-02 00:15:00 [...] steady gait, in no apparent distress, A [facility] 2024-06-01 21:38:46 Patient arrived ambulatory to ED c/o right foot gout pain that started last night. Patient states being d/c from [place] with prescriptions about 30 minutes ago. States normally gets a shot but they didn't give him one this time. Hx of HTN takes BP medications for it. A Ding RN [facility]"
[2025-01-30] MEDS ORDERED: KETOROLAC 30 MG/ML INJ ONE (17:16)
[2025-01-30] MEDS ORDERED: HYDROCODONE/APAP 10/325 TAB ONE (17:17)
[2025-01-30] MEDS ORDERED: COLCHICINE 0.6 MG TAB ONE (17:17)
--- NOTE | 2025-01-30 17:48 | EDPHYS ---
Physician Documentation [facility] Name: Ezequiel Padron Age: 39 yrs Sex: Male : 1985 Arrival Date: 01/30/2025 Time: 16:20 Bed 14 Private MD: ED Physician Kirby Cortes HPI: 01/30 17:49 This 39 yrs old Black Male presents to ER via Ambulatory with complaints of Foot Pain. dr5 17:49 Onset: The symptoms/episode began/occurred 3 day(s) ago. Patient is a 39-year-old male dr5 with history of CHF, gout, hypertension coming in with left foot swelling and pain that is consistent with his previous gout attacks. Patient reports that the only thing that helps his swelling is a steroid shot. Patient reports he has not been to see his primary care doctor yet and knows his blood pressure elevated. Patient does not want to be treated for blood pressure during this visit.. Historical: - Allergies: 16:29 Nitroglycerin; dd2 - PMHx: 16:29 Congestive heart failure; Gout; Hypertensive disorder; dd2 - PSHx: 16:29 femur sx; dd2 - Immunization history:: Adult Immunizations up to date. - Infectious Disease History:: Denies. - Social history:: Smoking status: Patient reports the use of cigarette tobacco products, smokes one-half pack cigarettes per day. ROS: 17:49 Constitutional: as per hpi dr5 Exam: 17:49 Constitutional: This is a well developed, well nourished patient who is awake, alert, dr5 and in no acute distress. Head/Face: Normocephalic, atraumatic. Eyes: Pupils equal round and reactive to light, extra-ocular motions intact. Lids and lashes normal. Conjunctiva and sclera are non-icteric and not injected. Cornea within normal limits. Periorbital areas with no swelling, redness, or edema. Neck: Trachea midline, no thyromegaly or masses palpated, and no cervical lymphadenopathy. Supple, full range of motion without nuchal rigidity, or vertebral point tenderness. No Meningismus. Chest/axilla: Normal chest wall appearance and motion. Nontender with no deformity. No lesions are appreciated. Cardiovascular: Regular rate and rhythm with a normal S1 and S2. Normal PMI, no JVD. No pulse deficits. Respiratory: Lungs have equal breath sounds bilaterally, clear to auscultation. No rales, rhonchi or wheezes noted. No increased work of breathing, no retractions or nasal flaring. Abdomen/GI: Soft, non-tender, non-distended Back: No spinal tenderness. No costovertebral tenderness. Full range of motion. Skin: Warm, dry with normal turgor. Normal color with no rashes, no lesions, and no evidence of cellulitis. Neuro: Awake and alert, GCS 15, oriented to person, place, time, and situation. Cranial nerves II-XII grossly intact. Motor strength 5/5 in all extremities. Sensory grossly intact. Cerebellar exam normal. Normal gait. 17:49 Musculoskeletal/extremity: Extremities: grossly normal except: noted in the lateral side of left heel and left Achilles: erythema, swelling, tenderness, ROM: no acute changes, intact in all extremities, Circulation is intact in all extremities. Sensation intact. Vital Signs: 16:27 BP 187 / 142; Pulse 104; Resp 16; Temp 98.4; Pulse Ox 99% on R/A; Weight 104.33 kg; dd2 Height 6 ft. 0 in. ; Pain 10/10; 17:59 BP 206 / 140; Pulse 97; Resp 20; Temp 98.2; Pulse Ox 100% on R/A; kj2 16:27 Body Mass Index 31.19 (104.33 kg, 182.88 cm) dd2 16:27 Pain Scale: Adult dd2 MDM: 16:23 Medical Screening Exam initiated dr5 18:15 Differential diagnosis: open fracture, contusion, abrasion, Gout. Data reviewed: vital dr5 signs, nurses notes. Consideration of Admission/Observation Escalation of care including admission/observation considered. Discussion considered patient found to have fever. I considered the following discharge prescriptions or medication management in the emergency department I discussed and recommended Over The Counter medications, Medications were administered in the Emergency Department. See MAR. Care significantly affected by the following chronic conditions: Hypertension, Gout, CHF. Care significantly affected by the following Social Determinants of Health: Poor access to healthcare and/or lack of insurance, Poor access to transportation, Problems related to employment. Counseling: I had a detailed discussion with the patient and/or guardian regarding the historical points, exam findings, and any diagnostic results supporting the discharge/admit diagnosis, the presence of at least one elevated blood pressure reading (>120/80) during this emergency department visit, the need for outpatient follow up, for definitive care, a family practitioner. Medication response: [place], Toradol, dexamethasone. Response to treatment: the patient's symptoms have markedly improved after treatment. Special discussion: I have referred the patient to see his PCP for further evaluation of high blood pressure. I discussed with the patient/guardian in detail that at this point there is no indication for admission to the hospital. It is understood, however, that if the symptoms persist or worsen the patient needs to return immediately for re-evaluation. Based on the history and exam findings, there is no indication for further emergent testing or inpatient evaluation. I discussed with the patient/guardian the need to see the primary care provider for further evaluation of the symptoms. ED course: Patient reports he is doing much better. Patient states that he does not want medication for his blood pressure and will take his blood pressure medication when gets home. All questions answered. Strict ER precautions given. Explained risks of getting dexamethasone injections, patient reports that he would like to have a dexamethasone shot. Will have patient follow-up primary care doctor.. Administered Medications: 17:02 CANCELLED (Inappropriate at this time): mg PO once dr5 17:24 Drug: Colcrys PO 1.2 mg PO once Route: PO; kj2 18:02 Follow up: Response: No adverse reaction kj2 17:24 Drug: Dexamethasone IM 10 mg IM once Route: IM; Site: left deltoid; kj2 18:02 Follow up: Response: No adverse reaction kj2 17:25 Drug: Ketorolac IM 30 mg IM once Route: IM; Site: right deltoid; kj2 18:02 Follow up: Response: No adverse reaction kj2 17:26 Drug: [place] PO 10 mg-325 mg 1 tabs PO once Route: PO; kj2 18:03 Follow up: Response: No adverse reaction kj2 Disposition Summary: 01/30/25 17:47 Discharge Ordered Notes: Location: Home dr5 Condition: Stable dr5 Diagnosis - Gout, unspecified dr5 Followup: dr5 - With: Emergency Department - When: As needed - Reason: Worsening of condition Followup: dr5 - With: Private Physician - When: 1 - 2 days - Reason: Recheck today's complaints, Continuance of care, Re-evaluation by your physician Discharge Instructions: - Discharge Summary Sheet dr5 - Gout dr5 - Low-Purine Eating Plan dr5 Forms: - Medication Reconciliation Form dr5 - Patient Portal Instructions dr5 - Leadership Thank You Letter dr5 Prescriptions: - Prednisone 20 mg Oral Tablet - take 2 tablets ORAL route once daily for 5 days; 10 tablet; Refills: 0, Product dr5 Selection Permitted Addendum: 02/04/2025 06:59 Co-signature as Attending Physician, Kirby Cortes MD I reviewed the patient's care r n provided by the Advanced Practice Provider and agree with the diagnosis and treatment plan. Signatures: Kirby Cortes MD MD rn Jordan, Krystal RN RN kj2 RACHAEL HAMPTON RN RN dd2 Luis Grossman, DIRECTOR OF MARKET INTELLIGENCE-C DIRECTOR OF MARKET INTELLIGENCE-Cdr5 Corrections: (The following items were deleted from the chart) 01/30 17:02 16:53 predniSONE PO 60 mg PO once ordered. dr5 dr5 17:50 17:49 Patient is a 39-year-old male with history of CHF, gout, hypertension coming in dr5 with. dr5
--- NOTE | 2025-01-30 17:48 | ER ---
Nurse's Notes [facility] Name: Ezequiel Padron Age: 39 yrs Sex: Male : 1985 Arrival Date: 01/30/2025 Time: 16:20 Bed 14 Private MD: Diagnosis: Gout, unspecified Presentation: 01/30 16:27 Chief complaint: Patient states: GOUT FLARE UP IN LT LATERAL ANKLE X3 DAYS. PT REPORTS dd2 TAKING IBUPROFEN AND COLCHICINE WITH NO RELIEF. Coronavirus screen: At this time, the client does not indicate any symptoms associated with coronavirus-19. Ebola Screen: No symptoms or risks identified at this time. Initial Sepsis Screen: Does the patient meet any 2 criteria? No. Patient's initial sepsis screen is negative. Does the patient have a suspected source of infection? No. Patient's initial sepsis screen is negative. Risk Assessment: Do you want to hurt yourself or someone else? Patient reports no desire to harm self or others. Onset of symptoms was January 27, 2025. 16:27 Method Of Arrival: Ambulatory dd2 16:27 Acuity: HERMELINDA 3 dd2 Triage Assessment: 16:29 General: Appears uncomfortable, Behavior is calm, cooperative, appropriate for age. dd2 Pain: Complains of pain in left lateral malleolus Pain currently is 10 out of 10 on a pain scale. Musculoskeletal: Swelling present in left lateral malleolus Reports pain in left lateral malleolus. Historical: - Allergies: 16:29 Nitroglycerin; dd2 - PMHx: 16:29 Congestive heart failure; Gout; Hypertensive disorder; dd2 - PSHx: 16:29 femur sx; dd2 - Immunization history:: Adult Immunizations up to date. - Infectious Disease History:: Denies. - Social history:: Smoking status: Patient reports the use of cigarette tobacco products, smokes one-half pack cigarettes per day. Screenin:50 [facility] ED Fall Risk Assessment (Adult) History of falling in the last 3 months, kj2 including since admission No falls in past 3 months (0 pts) Confusion or Disorientation No (0 pts) Intoxicated or Sedated No (0 pts) Impaired Gait No (0 pts) Mobility Assist Device Used No (0 pt) Altered Elimination No (0 pt) Score/Fall Risk Level 0 - 2 = Low Risk Maintained a safe environment, Hourly rounding (assess needs \T\ fall precautionary measures) done. Abuse screen: Denies threats or abuse. Denies injuries from another. Nutritional screening: No deficits noted. Tuberculosis screening: No symptoms or risk factors identified. Assessment: 16:34 Reassessment: PT REPORTS HE HAS NOT TAKEN BP MEDS [place], HAS THEM WITH HIM. PT ADVISED TO dd2 TAKE MEDICATION NOW. BEBO SRIVASTAVA AWARE. 16:50 General: Appears in no apparent distress. Behavior is cooperative. Pain: Complains of kj2 pain in left lateral malleolus and left foot Pain currently is 9 out of 10 on a pain scale. Neuro: Level of Consciousness is awake, alert, obeys commands, Oriented to person, place, time, situation. Cardiovascular: Patient's skin is warm and dry. Respiratory: Airway is patent Respiratory effort is unlabored. GI: No signs and/or symptoms were reported involving the gastrointestinal system. : No signs and/or symptoms were reported regarding the genitourinary system. 18:00 Reassessment: provider aware of blood pressure, he advised patient to take bp meds as kj2 soon as he arrives home. Vital Signs: 16:27 BP 187 / 142; Pulse 104; Resp 16; Temp 98.4; Pulse Ox 99% on R/A; Weight 104.33 kg; dd2 Height 6 ft. 0 in. ; Pain 10/10; 17:59 BP 206 / 140; Pulse 97; Resp 20; Temp 98.2; Pulse Ox 100% on R/A; kj2 16:27 Body Mass Index 31.19 (104.33 kg, 182.88 cm) dd2 16:27 Pain Scale: Adult dd2 ED Course: 16:22 Patient arrived in ED. ts1 16:23 Luis Grossman FNP-C is PHCP. dr5 16:23 Kirby Cortes MD is Attending Physician. dr5 16:29 Triage completed. dd2 16:29 Arm band placed on left wrist. dd2 16:50 Patient has correct armband on for positive identification. Bed in low position. Call kj2 light in reach. Provided Education on: call light. 17:14 Deysi Reza, RN is Primary Nurse. kj2 18:01 No provider procedures requiring assistance completed. Patient did not have IV access kj2 during this emergency room visit. Administered Medications: 17:02 CANCELLED (Inappropriate at this time): [id number] mg PO once dr5 17:24 Drug: Colcrys PO 1.2 mg PO once Route: PO; kj2 18:02 Follow up: Response: No adverse reaction kj2 17:24 Drug: Dexamethasone IM 10 mg IM once Route: IM; Site: left deltoid; kj2 18:02 Follow up: Response: No adverse reaction kj2 17:25 Drug: Ketorolac IM 30 mg IM once Route: IM; Site: right deltoid; kj2 18:02 Follow up: Response: No adverse reaction kj2 17:26 Drug: [place] PO 10 mg-325 mg 1 tabs PO once Route: PO; kj2 18:03 Follow up: Response: No adverse reaction kj2 Medication: 18:01 VIS not applicable for this client. kj2 Outcome: 17:47 Discharge ordered by . dr5 18:01 Discharged to home ambulatory, kj2 18:01 Condition: stable 18:01 Discharge instructions given to patient, Instructed on discharge instructions, follow up and referral plans. Demonstrated understanding of instructions, 18:03 Patient left the ED. kj2 Signatures: Poly [place] Real PAS PAS ts1 Deysi Reza RN RN kj2 RACHAEL HAMPTON RN RN dd2 Luis Grossman, PERFORMANCE MAKEUP ARTIST-C PERFORMANCE MAKEUP ARTIST-5
[2025-01-30 18:34] VITALS: BP 206/140; TEMP 98.2; O2SAT 100
== END 2025-01-30 18:03 | disposition home or self-care (01) ==
LOC: ER 16:20
DX: M10.9 Gout, unspecified (principal); I10 Essential (primary) hypertension; I50.9 Heart failure, unspecified; F17.210 Nicotine dependence, cigarettes, uncomplicated
CPT/HCPCS: 96372; 99284; J1100

== ENCOUNTER 2025-02-15 07:09 | Emergency (ER) | payer OTHER ==
--- OUTSIDE RECORDS SUMMARY | 2025-02-15 07:14 | XMS REPORT | Continuity of Care Document ---
Author Name Unknown Address [address] [place] [address] Organization [facility] Address [address] [place] [address] Care Team Providers Care Plastering Supervisor Name Role Phone Pcp, Patient Does Not Have A Primary Care Physic pat Doctor Unassigned, [place] Attending Clinician U jose e Figueroa, Generic Provider Attending Clinician Unavailable MIGDALIA VILLEGAS Attending Clinician Unavailable MIGDALIA VILLEGAS Attending Clinician Unavailable Migdalia Driver Attending Clinician [phone] Cipriano FREDERICK, Basim Sanz Attending Clinician + Tameka Garcia Attending Clinician [phone] Tameka NOVOA Attending Clinician Unavailable Doctor Unassigned, [place] Attending Clinician U Sherrell Erazo RN Attending Clinician Unavailable DIMITRIOS ABEL Attending Clinician UnavailDimitrios Kearney MD Attending Clinician [phone] DIMITRIOS ABEL Admitting Clinician UnavailDimitrios Kearney MD Admitting Clinician [phone] Payers Payer Name Policy Type Policy Number Effective Date Expirati on Date Source Problems Condition Name Condition Details Condition Category Status Onset Date Resolution Date Last Treatment Date Treating Clinician Comments Source SOB (shortness of breath) SOB (shortness of breath) Disease Active 4-14 00:00: 00 [facility] Obesity (BMI 30-39.9) Obesity (BMI 30-39.9) Disease Active 7-21 00:00: 00 [facility] Allergies, Adverse Reactions, Alerts Allergy Name Allergy Type Status Severity Reaction(s) Onset Date Inactive Date Treating Clinician Comments Source MORPHINE DRUG INGREDI Active Unknown-Cmnt 12-06 00:00: 00 [facility] Morphine Propensi ty to adverse reaction s Active Unknown - See comments 12-06 00:00: 00 Patient does not know reaction [facility] NO KNOWN ALLERGIE S Drug Class Active [facility] Social History Social Habit Start Date Stop Date Quantity Comments Source History SDOH Alcohol Std Drinks [facility] History SDOH Alcohol Binge [facility] Alcohol Frequency [facility] History of Social function 2024-06-01 00:00:00 2024-06-01 00:00:00 [facility] Exposure to SARS-CoV-2 (event) 2021-11-26 00:00:00 2021-12-06 12:55:[address] [facility] Alcohol intake 2021-12-06 00:00:00 2021-12-06 00:00:00 Current drinker of alcohol (finding) [facility] Alcohol Comment 2016-11-22 00:00:00 2016-11-22 00:00:[address] [facility] Alcoholic beverage intake 2016-11-22 00:00:00 2016-11-22 00:00:00 Current drinker of alcohol (finding) [facility] Tobacco use and exposure 2016-11-22 00:00:00 2016-11-22 00:00:00 Smokeless tobacco non-user [facility] Sex assigned at 1985 00:00:00 1985 00:00:00 [facility] Smoking Status Start Date Stop Date Source Never smoked tobacco [facility] Medications Ordered Medication Name Filled Medication Name Start Date Stop Date Current Medication? Ordering Clinician Indication Dosage Frequency Signature (SIG) Comments Components Source cloNIDine (CATAPRES) tablet 0.1 mg 06-02 04:45: 00 06-02 05:17 :00 No .1mg 0.1 mg, Oral, ONCE, 1 dose, On Sat06/01/24 at 2245, STAT [facility] HYDROcodone -acetaminop hen (NORCO 5) tablet 1 tablet 06-02 04:45: 00 06-02 05:17 :00 No 1{tbl} 1 tablet, Oral, ONCE, 1 dose, On Sat06/01/24 at 2245, [facility] methylpredn isolone sod succ (SOLU-MEDRO L) injection 125 mg 06-02 04:40: 00 06-02 05:18 :00 No 125mg 125 mg, Intramuscu lar, ONCE NOW, 1 dose, On Sat06/01/24 at 2245, [facility] acetaminoph en-codeine 300-30 mg tablet 06-02 00:00: 00 06-10 05:59 :00 No [id number] 1{tbl} Take 1 tablet by mouth every 8 (eight) hours as needed for Pain (scale 4-6) for up to 7 days. Indication s: acute pain [facility] lisinopriL (PRINIVIL,Z ESTRIL) tablet 20 mg 12-07 14:00: 00 Yes 20mg 20 mg, Oral, DAILY, First dose on Viktoriya 12/07/21 at 0900, Until Discontinu ed, Routine [facility] HYDROcodone -acetaminop hen (NORCO) 10-325 mg tablet 1 tablet 12-06 17:15: 00 12-06 16:12 :00 No 1{tbl} 1 tablet, Oral, ONCE, 1 dose, On Sat12/06/21 at 1215, [facility] carvediloL (COREG) tablet 25 mg 12-06 17:15: 00 12-06 16:12 :00 No 25mg 25 mg, Oral, ONCE, 1 dose, On Sat12/06/21 at 1215, Routine [facility] methylpredn isolone sod succ (SOLU-MEDRO L) injection 125 mg 12-06 16:45: 00 12-06 16:09 :00 No 125mg 125 mg, Intramuscu lar, ONCE, 1 dose, On Sat12/06/21 at 1145, REGINA [facility] predniSONE 20 mg tablet 12-06 00:00: 00 Yes [id number] 1 PO BID x 4 days [facility] acetaminoph en-codeine 300-30 mg tablet 12-06 00:00: 00 Yes [id number] 1{tbl} Take 1 tablet by mouth every 4 (four) hours as needed for Pain (scale 4-6). Indication s: acute pain [facility] aspirin 81 mg chewable tablet 09-14 00:00: 00 Yes [id number] 81mg Take 1 tablet by mouth daily. [facility] atorvastati n 40 mg tablet 09-14 00:00: 00 Yes [id number] 40mg Take 1 tablet by mouth at bedtime. [facility] carvediloL 25 mg tablet 09-14 00:00: 00 Yes [id number] 37.5mg Take 1.5 tablets by mouth 2 (two) times daily with meals. [facility] furosemide 40 mg tablet 09-14 00:00: 00 Yes [id number] 40mg Take 1 tablet by mouth every morning and evening. [facility] lisinopriL 10 mg tablet 09-14 00:00: 00 Yes [id number] 30mg Take 3 tablets by mouth daily. [facility] spironolact one 25 mg tablet 09-14 00:00: 00 Yes [id number] 25mg Take 1 tablet by mouth daily. [facility] aspirin 81 mg chewable tablet -19 00:00: 00 09-14 00:00 :00 No [id number] 81mg Take 1 tablet by mouth daily for 180 days. [facility] lisinopriL 10 mg tablet 08-22 00:00: 00 09-14 00:00 :00 No [id number] 30mg Take 3 tablets by mouth daily for 180 days. [facility] spironolact one 25 mg tablet 08-22 00:00: 00 09-14 00:00 :00 No [id number] 25mg Take 1 tablet by mouth daily for 180 days. [facility] carvediloL (COREG) tablet 37.5 mg 08-21 22:00: 00 Yes 37.5mg 37.5 mg, Oral, BID MEALS, First dose (after last modificati on) on Sat08/21/21 at 1700, Until Discontinu ed, Routine [facility] lisinopriL (PRINIVIL,Z ESTRIL) tablet 30 mg 08-21 14:00: 00 Yes 30mg 30 mg, Oral, DAILY, First dose (after last modificati on) on Sat08/21/21 at 0900, Until Discontinu ed, Routine [facility] magnesium oxide (MAG-OX 400) tablet 400 mg 08-21 13:45: 00 08-21 13:20 :00 No 400mg 400 mg, Oral, ONCE, 1 dose, On Sat08/21/21 at 0845, Routine [facility] amLODIPine 10 mg tablet 08-21 11:33: 41 08-21 00:00 :00 No 10mg Take 10 mg by mouth daily. [facility] hydroCHLORO thiazide 25 mg tablet 08-21 11:33: 41 08-21 00:00 :00 No 25mg Take 25 mg by mouth daily. [facility] ibuprofen 800 mg tablet 08-21 11:33: 41 08-21 00:00 :00 No 800mg Take 800 mg by mouth 2 (two) times daily. [facility] hydrALAZINE (APRESOLINE ) tablet 10 mg 08-21 07:00: 00 08-21 06:05 :00 No 10mg 10 mg, Oral, ONCE, 1 dose, On Sat08/21/21 at 0200, Routine [facility] atorvastati n 40 mg tablet 08-21 00:00: 00 09-14 00:00 :00 No [id number] 40mg Take 1 tablet by mouth at bedtime for 180 days. [facility] furosemide 40 mg tablet 08-21 00:00: 00 09-14 00:00 :00 No [id number] 40mg Take 1 tablet by mouth every morning and evening for 180 days. [facility] carvediloL 25 mg tablet 08-21 00:00: 00 09-14 00:00 :00 No [id number] 37.5mg Take 1.5 tablets by mouth 2 (two) times daily with meals for 180 days. [facility] carvediloL 25 mg tablet 08-21 00:00: 00 08-21 00:00 :00 No [id number] 25mg Take 1 tablet by mouth 2 (two) times daily with meals for 180 days. [facility] furosemide (LASIX) tablet 40 mg 08-20 14:00: 00 Yes 40mg 40 mg, Oral, QAM+PM, First dose (after last modificati on) on Sat08/20/21 at 0900, Until Discontinu ed, Routine [facility] lisinopriL (PRINIVIL,Z ESTRIL) tablet 20 mg 08-20 14:00: 00 08-21 11:42 :47 No 20mg 20 mg, Oral, DAILY, First dose (after last modificati on) on Sat08/20/21 at 0900, Until Discontinu ed, Routine [facility] carvediloL (COREG) tablet 25 mg 08-20 13:00: 00 08-21 17:46 :56 No 25mg 25 mg, Oral, BID MEALS, First dose (after last modificati on) on 08/20/21 at 0800, Until Discontinu ed, Routine [facility] lisinopriL (PRINIVIL,Z ESTRIL) tablet 5 mg 08-19 15:00: 00 08-19 14:30 :00 No 5mg 5 mg, Oral, ONCE, 1 dose, On Sat08/19/21 at 1000, [facility] carvediloL (COREG) tablet 12.5 mg 08-19 13:00: 00 08-19 22:39 :41 No 12.5mg 12.5 mg, Oral, BID MEALS, First dose (after last modificati on) on Sat08/19/21 at 0800, Until Discontinu ed, Routine [facility] furosemide (LASIX) injection 40 mg 08-19 01:00: 00 08-19 17:31 :11 No 40mg 40 mg, Slow IV Push, Q12H, First dose on Sat08/18/21 at 2000, Until Discontinu ed, Routine [facility] hydrALAZINE (APRESOLINE ) tablet 25 mg 08-18 21:47: 07 Yes 25mg 25 mg, Oral, Q6HPRN, Starting on Sat08/18/21 at 1647, Until Discontinu ed, Routine, SBP >180 [facility] lisinopriL (PRINIVIL,Z ESTRIL) tablet 10 mg 08-18 18:15: 00 08-18 18:14 :00 No 10mg 10 mg, Oral, DAILY, 1 dose, First dose on Sat08/18/21 at 1315, Routine [facility] lisinopriL (PRINIVIL,Z ESTRIL) tablet 10 mg 08-18 16:00: 00 08-19 13:47 :35 No 10mg 10 mg, Oral, DAILY, First dose on Sat08/18/21 at 1100, Until Discontinu ed, Routine [facility] spironolact one (ALDACTONE) tablet 25 mg 08-18 14:00: 00 Yes 25mg 25 mg, Oral, DAILY, First dose on Sat08/18/21 at 0900, Until Discontinu ed, Routine [facility] aspirin chewable tablet 81 mg 08-18 14:00: 00 Yes 81mg 81 mg, Oral, DAILY, First dose on Sat08/18/21 at 0900, Until Discontinu ed, Routine [facility] furosemide (LASIX) tablet 40 mg 08-18 14:00: 00 08-18 16:18 :32 No 40mg 40 mg, Oral, QAM+PM, First dose on Sat08/18/21 at 0900, Until Discontinu ed, Routine [facility] amLODIPine (NORVASC) tablet 10 mg 08-18 12:00: 00 08-18 11:05 :00 No 10mg 10 mg, Oral, ONCE, 1 dose, On Sat08/18/21 at 0700, Routine [facility] atorvastati n (LIPITOR) tablet 40 mg 08-18 02:00: 00 Yes 40mg 40 mg, Oral, QHS, First dose on Sat08/17/21 at 2100, Until Discontinu ed, Routine [facility] heparin (porcine) injection 5,000 Units 08-18 01:00: 00 Yes 5000U 5,000 Units, Subcutaneo us, Q12H, First dose on Sat08/17/21 at 2000, Until Discontinu ed, Routine [facility] hydrALAZINE (APRESOLINE ) tablet 10 mg 08-17 22:45: 00 08-17 23:51 :00 No 10mg 10 mg, Oral, ONCE, 1 dose, On Sat08/17/21 at 1745, Routine [facility] hydrALAZINE (APRESOLINE ) tablet 10 mg 08-17 21:45: 54 08-18 21:47 :24 No 10mg 10 mg, Oral, Q6HPRN, Starting on Sat08/17/21 at 1645, Until Sat08/18/21 at 1647, Routine, SBP >180 [facility] sulfur hexafluorid e microsphr (LUMASON) injection 5 mL 08-17 20:45: 00 08-17 20:45 :00 No [id number] 5mL 5 mL, Intravenou s, ONCE, 1 dose, On Sat08/17/21 at 1545, Routine
research assistant member approving Restricted medication : DEZ QIU [facility] magnesium sulfate in water 4 gram/50 mL (8 %) IV Piggyback 4 g 08-17 18:15: 00 08-17 18:29 :00 No 4g 4 g, IV Piggyback, ONCE, 1 dose, On Viktoriya 08/17/21 at 1315, Routine [facility] KCL (KLOR-CON M20) tablet 40 mEq 08-17 18:15: 00 08-17 18:10 :00 No 40meq 40 mEq, Oral, ONCE, 1 dose, On Viktoriya 08/17/21 at 1315, Routine [facility] furosemide (LASIX) injection 40 mg 08-17 17:15: 00 08-18 12:42 :25 No 40mg 40 mg, Slow IV Push, Q12H, First dose on Viktoriya 08/17/21 at 1215, Until Discontinu ed, Routine [facility] acetaminoph en (TYLENOL) tablet 650 mg 08-17 14:09: 58 Yes 650mg 650 mg, Oral, Q6HPRN, Starting on Sat08/17/21 at 0909, Until Discontinu ed, Routine, Pain (scale 1-3) [facility] amLODIPine 10 mg tablet 08-17 09:16: 15 Yes 10mg Take 10 mg by mouth daily. [facility] hydroCHLORO thiazide 25 mg tablet 08-17 09:16: 15 Yes 25mg Take 25 mg by mouth daily. [facility] ibuprofen 800 mg tablet 08-17 09:16: 15 Yes 800mg Take 800 mg by mouth 2 (two) times daily. [facility] Vital Signs Vital Name Observation Time Observation Value Comments S qi Systolic blood pressure 2024-06-02 06:00:00 183 mm[Hg] [facility] Diastolic blood pressure 2024-06-02 06:00:00 132 mm[Hg] [facility] Heart rate 2024-06-02 05:18:00 82 /min Un[facility] Body temperature 2024-06-02 05:18:[address] [facility] Respiratory rate 2024-06-02 05:18:00 20 /min [facility] Oxygen saturation in Arterial blood by Pulse oximetry 2024-06-02 05:18:00 100 /min [facility] Body height 2024-06-02 03:39:00 182.9 cm [facility] Body weight 2024-06-02 03:39:00 102.377 kg [facility] BMI 2024-06-02 03:39:00 30.61 kg/m2 [facility] Systolic blood pressure 2021-12-06 17:40:07 158 mm[Hg] [facility] Diastolic blood pressure 2021-12-06 17:40:07 105 mm[Hg] [facility] Heart rate 2021-12-06 15:43:00 91 /min [facility] Respiratory rate 2021-12-06 15:43:00 20 /min [facility] Oxygen saturation in Arterial blood by Pulse oximetry 2021-12-06 15:43:00 97 /min [facility] Body temperature 2021-12-06 14:49:[address] [facility] Body height 2021-12-06 14:49:00 182.9 cm [facility] Body weight 2021-12-06 14:49:00 99.791 kg [facility] BMI 2021-12-06 14:49:00 29.84 kg/m2 [facility] Systolic blood pressure 2021-08-21 20:39:00 143 mm[Hg] [facility] Diastolic blood pressure 2021-08-21 20:39:00 104 mm[Hg] [facility] Heart rate 2021-08-21 20:39:00 79 /min [facility] Body temperature 2021-08-21 20:39:[address] [facility] Respiratory rate 2021-08-21 20:39:00 18 /min [facility] Oxygen saturation in Arterial blood by Pulse oximetry 2021-08-21 20:39:00 99 /min [place] [facility] Body weight 2021-08-21 10:57:00 104.055 kg [facility] BMI 2021-08-21 10:57:00 31.11 kg/m2 [facility] Body height 2021-08-18 10:31:00 182.9 cm [facility] Procedures Procedure Date / Time Performed Performing Clinician Source NOTICE OF PRIVACY PRACTICES 2021-12-06 14:38:21 Doctor Unassigned, [place] [facility] CONSENT/REFUSAL FOR DIAGNOSIS AND TREATMENT 2021-12-06 14:38:03 Doctor Unassigned, [place] [facility] AUTHORIZATION FOR RELEASE OF PHI 2021-09-01 05:01:00 Doctor Unassigned, [place] [facility] MAGNESIUM 2021-08-21 08:42:00 Eryn Cowart [facility] BASIC METABOLIC PANEL (NA, K, CL, CO2, GLUCOSE, BUN, CREATININE, CA) 2021-08-21 08:42:00 Supa [facility] N-TERMINAL PRO-BNP 2021-08-21 08:42:00 Gaston Elizabeth [facility] HB ECG ROUTINE & RHYTHM STRIP 2021-08-20 13:02:55 [facility] 2021-08-20 09:22:00 Letty March [facility] BASIC METABOLIC PANEL (NA, K, CL, CO2, GLUCOSE, BUN, CREATININE, CA) 2021-08-20 09:22:00 [facility] 2021-08-20 09:22:00 Letty March [facility] HB ECG ROUTINE & RHYTHM STRIP 2021-08-19 13:08:08 [facility] 2021-08-19 10:21:00 Gaston Elizabeth [facility] BASIC METABOLIC PANEL (NA, K, CL, CO2, GLUCOSE, BUN, CREATININE, CA) 2021-08-19 10:21:[address] [facility] BASIC METABOLIC PANEL (NA, K, CL, CO2, GLUCOSE, BUN, CREATININE, CA) 2021-08-18 19:41:00 Supa [facility] HB ECG ROUTINE & RHYTHM STRIP 2021-08-18 14:50:24 Supa [facility] MAGNESIUM 2021-08-18 09:10:00 [facility] (NA, K, CL, CO2, GLUCOSE, BUN, CREATININE, CA) 2021-08-18 09:10:00 Supa [facility] CBC WITH DIFF 2021-08-18 09:10:00 Supa [facility] TROPONIN I 2021-08-17 23:58:00 Supa [facility] TRANSTHORACIC ECHO (TTE) COMPLETE W/ CONTRAST 2021-08-17 18:53:00 Supa [facility] PHOSPHORUS 2021-08-17 15:43:00 [facility] 2021-08-17 15:43:00 Supa [facility] FERRITIN SERUM 2021-08-17 15:43:00 Eryn Cowart [facility] TROPONIN I 2021-08-17 15:43:00 Supa [facility] THYROID STIMULATING HORMONE 2021-08-17 15:43:00 Supa [facility] HEPATIC FUNCTION PANEL (90790) (ALB,T.PRO,BILI T,BU/BC,ALT,AST,ALK PHOS) 2021-08-17 15:43:00 Supa [facility] BASIC METABOLIC PANEL (NA, K, CL, CO2, GLUCOSE, BUN, CREATININE, CA) 2021-08-17 15:43:00 Supa [facility] IRON PANEL 2021-08-17 15:43:00 Supa [facility] CBC WITH DIFF 2021-08-17 15:43:00 Supa [facility] GLYCOSYLATED HEMOGLOBIN (A1C) 2021-08-17 15:43:[address] [facility] N-TERMINAL PRO-BNP 2021-08-17 15:43:[address] [facility] XR CHEST 1 VW 2021-08-17 15:10:00 Eryn Cowart [facility] EXTERNAL PROVIDER RECORDS 2016-11-23 05:01:00 Doctor Unassigned, [place] [facility] DAY SURGERY - ADC 2016-11-23 05:01:00 Doctor Ivonne ssigned, [place] [facility] Encounters Start Date/Time End Date/Time Encounter Type Admission Type Attending Clinicians Care Facility Care Department Encounter ID Source 2024-08-03 13:47:27 2024-08-03 13:47:[address] [facility] [id number] Gucci Philippe Bairon 2016-11-23 00:00:00 2024-06-20 03:42:57 Orders Only Doctor Unassigned, [place] Doctor Unassigned, [place] [facility] [id number] 350.1.13.10 4.2.7.2.686 [id number] [facility] 2024-06-10 00:00:00 2024-06-10 11:09:01 Letter (Out) Campaigns, Generic Provider Campaigns, Generic Provider [facility] ([facility] [id number] 350.1.13.10 4.2.7.2.686 [id number] [facility] 2024-06-01 21:44:00 2024-06-02 00:17:00 Emergency X MIGDALIA VILLEGAS SHINTA [facility] ERT [id number] [facility] 2024-06-01 21:44:00 2024-06-02 00:17:00 Emergency Migdalia Villegas [facility] [id number] 350.1.13.10 4.2.7.2.686 [id number] [facility] 2024-03-30 10:06:11 2024-03-30 10:06:[address] [facility] [id number] Gucci Waddell 2022-08-17 00:00:00 2022-08-17 00:00:00 [facility]114 350.1.13.10 4.2.7.2.686 [id number] [facility] 2021-12-06 09:51:00 2021-12-06 13:09:00 Emergency Tameka Novoa [facility] 1..114 350.1.13.10 4.2.7.2.686 [id number] [facility] 2021-12-06 09:51:00 2021-12-06 13:09:00 Emergency X Tameka NOVOA [facility] ERT [id number] [facility] 2021-12-06 00:00:00 2021-12-06 00:00:00 Orders Only Doctor Unassigned, [place] [facility] 1..114 350.1.13.10 4.2.7.2.686 [id number] [facility] 2021-09-14 00:00:00 2021-09-14 00:00:00 [facility]114 350.1.13.10 4.2.7.2.686 [id number] [facility] 2021-09-12 00:00:00 2021-09-12 00:00:00 Telephone Basim Cota [facility] 1..114 350.1.13.10 4.2.7.2.686 [id number] [facility] 2021-09-01 00:00:00 2021-09-01 00:00:00 Telephone Khalife, [facility] 1.2840.114 350.1.13.10 4.2.7.2.686 [id number] [facility] 2021-09-01 00:00:00 2021-09-01 00:00:00 Orders Only Doctor Unassigned, [place] [facility] 1.2840.114 350.1.13.10 4.2.7.2.686 [id number] [facility] 2021-08-30 00:00:00 2021-08-30 00:00:00 [facility] 1.840.114 350.1.13.10 4.2.7.2.686 [id number] [facility] 2021-08-22 00:00:00 2021-08-22 00:00:00 Transition of Care Sherrell Neumann 1.840.114 350.1.13.10 4.2.7.2.686 [id number] [facility] 2021-08-17 08:35:00 2021-08-21 17:42:00 Inpatient U DIMITRIOS ABEL [facility] [id number] [facility] 2021-08-17 08:35:00 2021-08-21 17:42:00 Hospital Encounter Basim Cota SanzDimitrios Douglass [facility] 1.840.114 350.1.13.10 4.2.7.2.686 [id number] [facility] 2021-08-18 00:00:00 2021-08-18 00:00:00 Telephone Dimitrios Abel [facility] 1.2840.114 350.1.13.10 4.2.7.2.686 [id number] [facility] Results Test Description Test Time Test Comments Results Result Co mments Source [facility] METABOLIC PANEL (NA, K, CL, CO2, GLUCOSE, BUN, CREATININE, CA)2021-08-21 10:07:34* Test Item Value Reference Range Interpretation Comme nts NA (test code = 2249362061) 135 mmol/L 135-145 K (test code = 6931421187) 4.4 mmol/L 3.5-5.0 CL (test code = 9912641855) 102 mmol/L 98-108 CO2 TOTAL (test code = 2673223759) 26 mmol/L 23-31 AGAP (test code = 8425892610) 2-16 BUN (test code = 3871064503) 27 mg/dL 7-23 H GLUCOSE (test code = 3607849576) 104 mg/dL 70-110 CREATININE (test code = 6107688981) 1.49 mg/dL 0.60-1.25 H CALCIUM (test code = 9966077509) 9.0 mg/dL 8.6-10.6 eGFR (test code = 4348213619) mL/min/1.73m2 EBEN (test code = EBEN) Association [...] imaging tests). Lab Interpretation (test code = 71295-8) [facility]:07:34* Test Item Value Reference Range Interpretation Comme nts MAGNESIUM (test code = 5797756446) 1.9 mg/dL 1.7-2.4 Lab Interpretation (test cod e = 59533-4) Normal [facility] (NA, K, CL, CO2, GLUCOSE, BUN, CREATININE, CA)2021-08-20 10:22:59* Test Item Value Reference Range Interpretation Comme nts NA (test code = 7114216804) 137 mmol/L 135-145 K (test code = 6026027635) 4.4 mmol/L 3.5-5.0 CL (test code = 9400369701) 102 mmol/L 98-108 CO2 TOTAL (test code = 2209585568) 26 mmol/L 23-31 AGAP (test code = 0195893789) 2-16 BUN (test code = 4558010493) 31 mg/dL 7-23 H GLUCOSE (test code = 2289184377) 119 mg/dL 70-110 H CREATININE (test code = 9760418287) 1.56 mg/dL 0.60-1.25 H CALCIUM (test code = 0560645688) 9.1 mg/dL 8.6-10.6 eGFR (test code = 1350777589) mL/min/1.73m2 EBEN (test code = EBEN) Association [...] imaging tests). Lab Interpretation (test code = 10242-8) [facility]:22:59* Test Item Value Reference Range Interpretation Comme nts MAGNESIUM (test code = 8474999218) 2.1 mg/dL 1.7-2.4 Lab Interpretation (test cod e = 94980-5) Normal [facility] WITH [id number] 09:42:15* Test Item Value Reference Range Interpretation Comme nts WBC (test code = 6690-2) See_Comment H [Automated [employer]] The system which generated this result transmitted reference range: 4.20 - 10.70 10*3/?L. The reference range was not used to interpret this result as normal/abnormal. RBC (test code = 789-8) See_Comment [Automated [employer]] The system which generated this result transmitted [...] 32.8 g/dL 31.2-35.0 RDW-SD (test code = 26806-0) 39.3 fL 38.5-51.6 RDW-CV (test code = 788-0) 12.5 % 12.1-15.4 PLT (test code = 777-3) See_Comment H [Automated messa ge] The system which generated this result transmitted reference range: 150 - 328 10*3/?L. The reference range was not used to interpret this result as normal/abnormal. MPV (test code = 69104-1) 9.3 fL 9.8-13.0 L NRBC/100 WBC (test code = 3363042207) See_Comment [Automated [employer]] The system which generated this result transmitted reference range: 0.0 - 10.0 /100 WBCs. The reference range was not used to interpret this result as normal/abnormal. NRBC x10^3 (test code = 3949107461) <0.01 See_Comment [Automated messa ge] The system which generated this result transmitted reference range: 10*3/?L. The reference range was not used to interpret this result as normal/abnormal. GRAN MAT (NEUT) % (test code = 770-8) 60.5 % IMM GRAN % (test code = 0207873823) 0.30 % LYMPH % (test code = 736-9) 26.7 % MONO % (test code = 5905-5) 8.3 % EOS % (test code = 713-8) 3.4 % BASO % (test code = 706-2) 0.8 % GRAN MAT x10^3(ANC) (test code = 0480722979) 7.17 10*3/uL 1.99-6.95 H IMM GRAN x10^3 (test code = 2701365300) 0.03 10*3/uL 0.00-0.06 LYMPH x10^3 (test code = 731-0) 3.16 10*3/uL 1.09-3.23 MONO x10^3 (test code = 742-7) 0.98 10*3/uL 0.36-1.02 EOS x10^3 (test code = 711-2) 0.40 10*3/uL 0.06-0.53 BASO x10^3 (test code = 704-7) 0.10 10*3/uL 0.01-0.09 H Lab Interpretation (test code = 74079-4) Abnormal [facility] METABOLIC PANEL (NA, K, CL, CO2, GLUCOSE, BUN, CREATININE, CA)2021-08-19 10:52:12* Test Item Value Reference Range Interpretation Comme nts NA (test code = 0261398706) 136 mmol/L 135-145 K (test code = 0995563716) 3.8 mmol/L 3.5-5.0 CL (test code = 2413777236) 100 mmol/L 98-108 CO2 TOTAL (test code = 2228257347) 29 mmol/L 23-31 AGAP (test code = 4259422136) 2-16 BUN (test code = 2082931915) 32 mg/dL 7-23 H GLUCOSE (test code = 8052954108) 115 mg/dL 70-110 H CREATININE (test code = 6788697936) 1.67 mg/dL 0.60-1.25 H CALCIUM (test code = 8147836020) 9.1 mg/dL 8.6-10.6 eGFR (test code = 4672201194) mL/min/1.73m2 EBEN (test code = EBEN) Association [...] imaging tests). Lab Interpretation (test code = 99013-8) [facility] 10:52:12* Test Item Value Reference Range Interpretation Comme nts MAGNESIUM (test code = 3768751323) 1.9 mg/dL 1.7-2.4 Lab Interpretation (test cod e = 70283-9) Normal [facility] (NA, K, CL, CO2, GLUCOSE, BUN, CREATININE, CA)2021-08-18 21:19:06* Test Item Value Reference Range Interpretation Comme nts NA (test code = 9130637447) 135 mmol/L 135-145 K (test code = 5170284130) 3.9 mmol/L 3.5-5.0 CL (test code = 2458016262) 98 mmol/L 98-108 CO2 TOTAL (test code = 1305571924) 30 mmol/L 23-31 AGAP (test code = 7528222693) 2-16 BUN (test code = 7406763071) 29 mg/dL 7-23 H GLUCOSE (test code = 5464313676) 121 mg/dL 70-110 H CREATININE (test code = 5703071007) 1.58 mg/dL 0.60-1.25 H CALCIUM (test code = 7887737547) 8.9 mg/dL 8.6-10.6 eGFR (test code = 4937484006) mL/min/1.73m2 EBEN (test code = EBEN) Association [...] imaging tests). Lab Interpretation (test code = 89048-2) [facility] (NA, K, CL, CO2, GLUCOSE, BUN, CREATININE, CA)2021-08-18 10:04:44* Test Item Value Reference Range Interpretation Comme nts NA (test code = 5985030844) 135 mmol/L 135-145 K (test code = 4373169112) 4.0 mmol/L 3.5-5.0 Slight hemolysis CL (test code = 3028240098) 101 mmol/L 98-108 CO2 TOTAL (test code = 0035860469) 29 mmol/L 23-31 AGAP (test code = 8227673863) 2-16 BUN (test code = 5156890074) 32 mg/dL 7-23 H Slight hemolysis GLUCOSE (test code = 0065688184) 114 mg/dL 70-110 H CREATININE (test code = 8622574122) 1.54 mg/dL 0.60-1.25 H CALCIUM (test code = 7219599256) 8.8 mg/dL 8.6-10.6 eGFR (test code = 0116872301) mL/min/1.73m2 EBEN (test code = EBEN) Association [...] imaging tests). Lab Interpretation (test code = 50617-0) [facility] 10:04:44* Test Item Value Reference Range Interpretation Comme nts MAGNESIUM (test code = 8169777868) 2.2 mg/dL 1.7-2.4 Lab Interpretation (test cod e = 35764-1) Normal [facility] WITH [id number] 09:24:38* Test Item Value Reference Range Interpretation Comme nts WBC (test code = 6690-2) See_Comment [Automated [employer]] The system which generated this result transmitted reference range: 4.20 - 10.70 10*3/?L. The reference range was not used to interpret this result as normal/abnormal. RBC (test code = 789-8) See_Comment [Automated [employer]] The system which generated this result transmitted [...] 33.3 g/dL 31.2-35.0 RDW-SD (test code = 85989-0) 39.1 fL 38.5-51.6 RDW-CV (test code = 788-0) 12.6 % 12.1-15.4 PLT (test code = 777-3) See_Comment H [Automated messa ge] The system which generated this result transmitted reference range: 150 - 328 10*3/?L. The reference range was not used to interpret this result as normal/abnormal. MPV (test code = 99238-5) 9.5 fL 9.8-13.0 L NRBC/100 WBC (test code = 2396913119) See_Comment [Automated [employer]] The system which generated this result transmitted reference range: 0.0 - 10.0 /100 WBCs. The reference range was not used to interpret this result as normal/abnormal. NRBC x10^3 (test code = 9895606799) <0.01 See_Comment [Automated messa ge] The system which generated this result transmitted reference range: 10*3/?L. The reference range was not used to interpret this result as normal/abnormal. GRAN MAT (NEUT) % (test code = 770-8) 65.3 % IMM GRAN % (test code = 0277355448) 0.20 % LYMPH % (test code = 736-9) 23.3 % MONO % (test code = 5905-5) 7.0 % EOS % (test code = 713-8) 3.5 % BASO % (test code = 706-2) 0.7 % GRAN MAT x10^3(ANC) (test code = 2674283591) 6.63 10*3/uL 1.99-6.95 IMM GRAN x10^3 (test code = 5865355040) <0.03 0.00-0.06 LYMPH x10^3 (test code = 731-0) 2.36 10*3/uL 1.09-3.23 MONO x10^3 (test code = 742-7) 0.71 10*3/uL 0.36-1.02 EOS x10^3 (test code = 711-2) 0.35 10*3/uL 0.06-0.53 BASO x10^3 (test code = 704-7) 0.07 10*3/uL 0.01-0.09 Lab Interpretation (test code = 22252-0) Abnormal [facility] (A1C)2021-08-18 02:37:07* Test Item Value Reference Range Interpretation Comme nts HGB A1C (test code = 4548-4) 5.8 % 4.0-5.7 H EBEN (test code = EBEN) Reference RangesNormal: <5.7%Prediabetes: 5.7 - 6.4%Diabetes: > 6.5% Lab Interpretation (test code = 44065-3) [facility]normal [facility] [id number] 01:03:37* Test Item Value Reference Range Interpretation Comments TROPONIN I (test code = 9678550935) 0.101 ng/mL See_Comment H [Automated message] The [...] of biotin. Lab Interpretation (test code = 18446-5) [facility]normal [facility] ([facility]E)2021-08-17 22:14:20* Test Item Value Reference Range Interpretation Comme nts Ao root annulus (test code = 5513470942) 3.3 cm Ao root diam (test code = 7217807938) 3.30 cm Aortic root (test code = 5268876998) 3.3 cm LA size (test code = 5954660175) 3.7 cm LVOT diameter (test code = 5210004089) 2.00 cm LVIDD (test code = 5661079094) 5.90 cm IVS (test code = 0531970979) 1.26 cm Interventricular Septum Diastolic Thickness by 2D (test code = 3238349) 1.26 cm LVPWD (test code = 5425333137) 1.19 cm PW (test code = 5114632543) 1.19 cm 0.6-1.1 EF(Teich) (test code = 3048640844) 46.60 % LVIDS (test code = 6456514898) 4.50 cm FS (test code = 7197394654) 24 % EF - 2D (test code = 42609401) 46.60 % LAV(MOD-sp4) (test code = 9694082375) 65.30 mL MV Peak E Narciso (test code = 7283090069) 126.4 cm/s E wave decelartion time (test code = 7210851393) 0.14 s MV Prop V (test code = 3714319754) 35.00 cm/s LVOT stroke volume (test code = 4924994720) 45.10 cm3 LVOT peak narciso (test code = 6461653159) 90.0 cm/s LVOT mn grad (test code = 3790263502) mmHg AV LVOT peak gradient (test code = 4906024493) mmHg LVOT peak VTI (test code = 4445197755) 14.4 cm LV V1 mean (test code = 4350915548) 63.00 cm/s Aortic valve mean velocity (test code = 4818178375) 76.8 cm/s Ao peak narciso (test code = 4092144272) 125.5 cm/s Ao VTI (test code = 7579065886) 17.0 cm AV area by cont VTI (test code = 8603208377) 2.6 cm2 AV area peak narciso (test code = 1643111646) 2.2 cm2 Ao max PG (test code = 1789575808) 6.30 mm[Hg] AV peak gradient (test code = 1294748666) mmHg AV valve area (test code = 1453841083) 2.60 cm2 AV mean gradient (test code = 0713860112) mmHg TR Peak Narciso (test code = 4226107991) 119.4 cm/s Triscuspid Valve Regurgitation Peak Gradient (test code = 7474605367) mmHg Tapse (test code = 6163866926) 1.95 cm LA volume (BP) (test code = 7860110571) 73.5 mL LAV(MOD-sp2) (test code = 7207183107) 74.00 mL LA Volume Index (BP) (test code = 9591153776) 32.5 mL/m2 LV Diastolic Volume (BP) (test code = 6326121991) 232.2 mL EF(MOD-bp) (test code = 7573368584) 33.10 % LV Systolic Volume (BP) (test code = 3030992044) 155.2 mL SV(MOD-bp) (test code = 3278934649) 76.90 mL EF (test code = 5630300521) 33 % Left Ventricular Stroke Volume by 2-D Biplane-MOD (test code = 2358470) 76.9 mL Radiology Study observation (narrative) (test code = 52393-2) EBEN (test code = EBEN) ?Left?Ventricle: Left [...] 2.3 sq meters 183/[address] [facility] (61366[facility] (ALB,T.PRO,BILI T,BU/BC,ALT,AST,ALK PHOS)2021-08-17 17:59:20* Test Item Value Reference Range Interpretation Comme nts TOTAL BILI (test code = 1084336227) 0.4 mg/dL 0.1-1.1 BILI UNCON (test code = 8047756357) 0.4 mg/dL 0.1-1.1 BILI CONJ (test code = 1916678430) 0.0 mg/dL 0.0-0.3 T PROTEIN (test code = 9687901929) 6.4 g/dL 6.3-8.2 ALBUMIN (test code = 6232952191) 3.7 g/dL 3.5-5.0 ALK PHOS (test code = 0270658666) 64 U/L 34-122 ALTv (test code = 1742-6) 39 U/L 5-50 AST(SGOT) (test code = 8381643610) 30 U/L 13-40 Lab Interpretation (test cod e = 12354-8) Normal [facility] [id number] 17:21:19* Test Item Value Reference Range Interpretation Comme nts FERRITIN (test code = 0631438651) 29.7 ng/mL 18.0-464.0 EBEN (test code = EBEN) Biotin has been reported to cause a negative bias, interpret results relative to patient's use of biotin. Lab Interpretation (test code = 59118-2) Normal [facility] ST[facility]ULATING [id number] 17:14:24 * Test Item Value Reference Range Interpretation Comme nts TSH (test code = 3000123801) See_Comment [Automated [employer] ge] The system which generated this result transmitted reference range: 0.45 - 4.70 mIU/L. The reference range was not used to interpret this result as normal/abnormal. Lab Interpretation (test code = 92765-2) Normal [facility]AL [id number] 16:55:55* Test Item Value Reference Range Interpretation Comme nts NT-proBNP (test code = 3098846855) 5070 pg/mL See_Comment H [Automated message] The system which generated this result transmitted reference range: <=125. The reference range was not used to interpret this result as normal/abnormal. EBEN (test code = EBEN) Biotin has been reported to cause a negative bias, interpret results relative to patient's use of biotin. Lab Interpretation (test code = 92951-7) Abnormal [facility] [id number] 16:55:55* Test Item Value Reference Range Interpretation Comments TROPONIN I (test code = 5374725305) 0.117 ng/mL See_Comment H [Automated message] The [...] of biotin. Lab Interpretation (test code = 62828-3) Abnormal [facility]IRON [id number] 16:52:53* Test Item Value Reference Range Interpretation Comme nts IRON (test code = 4174401692) 51 ug/dL 50-160 TIBC (test code = 6429016721) 298 ug/dL 250-410 % FE SAT (test code = 5671422282) 17 % 20-50 L Lab Interpretation (test cod e = 72618-2) [facility]normal [facility]2022-04-14 16:41:35* Test Item Value Reference Range Interpretation Comme nts MAGNESIUM (test code = 3721437685) 1.6 mg/dL 1.7-2.4 L Lab Interpretation (test cod e = 64618-9) Abnormal [facility]OS[facility]ORUS2022-04-14 16:41:35* Test Item Value Reference Range Interpretation Comme nts PHOSPHORUS (test code = 1122870755) 4.0 mg/dL 2.5-5.0 Lab Interpretation (test cod e = 40667-9) Normal [facility]OLIC PAN[facility] (NA, K, CL, CO2, GLUCOSE, BUN, CREATININE, CA)2021-08-17 16:41:35* Test Item Value Reference Range Interpretation Comme nts NA (test code = 4424088439) 134 mmol/L 135-145 L K (test code = 7889549733) 3.6 mmol/L 3.5-5.0 CL (test code = 5657121590) 99 mmol/L 98-108 CO2 TOTAL (test code = 2037088741) 32 mmol/L 23-31 H AGAP (test code = 8371366884) 2-16 BUN (test code = 1930017892) 24 mg/dL 7-23 H GLUCOSE (test code = 3244738593) 111 mg/dL 70-110 H CREATININE (test code = 1507896203) 1.60 mg/dL 0.60-1.25 H CALCIUM (test code = 5796038298) 8.8 mg/dL 8.6-10.6 eGFR (test code = 8614963184) mL/min/1.73m2 EBEN (test code = EBEN) Association [...] imaging tests). Lab Interpretation (test code = 37118-7) Abnormal [facility] WITH [id number] 16:00:05* Test Item Value Reference Range Interpretation [...] 33.7 g/dL 31.2-35.0 RDW-SD (test code = 40352-7) 39.5 fL 38.5-51.6 RDW-CV (test code = 788-0) 12.6 % 12.1-15.4 PLT (test code = 777-3) See_Comment H [Automated messa ge] The system which generated this result transmitted reference range: 150 - 328 10*3/?L. The reference range was not used to interpret this result as normal/abnormal. MPV (test code = 12344-5) 9.4 fL 9.8-13.0 L NRBC/100 WBC (test code = 6340916421) See_Comment [Automated [employer]] The system which generated this result transmitted reference range: 0.0 - 10.0 /100 WBCs. The reference range was not used to interpret this result as normal/abnormal. NRBC x10^3 (test code = 8332748642) <0.01 See_Comment [Automated messa ge] The system which generated this result transmitted reference range: 10*3/?L. The reference range was not used to interpret this result as normal/abnormal. GRAN MAT (NEUT) % (test code = 770-8) 65.6 % IMM GRAN % (test code = 8636860426) 0.20 % LYMPH % (test code = 736-9) 23.8 % MONO % (test code = 5905-5) 6.7 % EOS % (test code = 713-8) 3.2 % BASO % (test code = 706-2) 0.5 % GRAN MAT x10^3(ANC) (test code = 9653942161) 6.58 10*3/uL 1.99-6.95 IMM GRAN x10^3 (test code = 8757136074) <0.03 0.00-0.06 LYMPH x10^3 (test code = 731-0) 2.39 10*3/uL 1.09-3.23 MONO x10^3 (test code = 742-7) 0.67 10*3/uL 0.36-1.02 EOS x10^3 (test code = 711-2) 0.32 10*3/uL 0.06-0.53 BASO x10^3 (test code = 704-7) 0.05 10*3/uL 0.01-0.09 Lab Interpretation (test code = 08353-9) Abnormal [facility] Notes Date/Time Note Provider Source 2024-06-02 00:15:00 [...] steady gait, in no apparent distress, A [facility] 2024-06-01 21:38:46 Patient arrived ambulatory to ED c/o right foot gout pain that started last night. Patient states being d/c from [place] with prescriptions about 30 minutes ago. States normally gets a shot but they didn't give him one this time. Hx of HTN takes BP medications for it. A Ding RN [facility]"
[2025-02-15] MEDS ORDERED: KETOROLAC 30 MG/ML INJ ONE (07:35)
[2025-02-15] MEDS ORDERED: COLCHICINE 0.6 MG TAB ONE (07:35)
[2025-02-15] MEDS ORDERED: HYDROCODONE/APAP 10/325 TAB ONE ×2 (07:36→08:47)
--- NOTE | 2025-02-15 08:43 | ER ---
Nurse's Notes [facility] Name: Ezequiel Padron Age: 39 yrs Sex: Male : 1985 Arrival Date: 02/15/2025 Time: 07:09 Bed 13 Private MD: Diagnosis: Gout, unspecified Presentation: 02/15 07:24 Chief complaint: Left ankle pain since last night. Hx of gout, has not take HTN hb medication yet this morning. Coronavirus screen: At this time, the client does not indicate any symptoms associated with coronavirus-19. Ebola Screen: No symptoms or risks identified at this time. Initial Sepsis Screen: Does the patient meet any 2 criteria? No. Patient's initial sepsis screen is negative. Does the patient have a suspected source of infection? No. Patient's initial sepsis screen is negative. Risk Assessment: Do you want to hurt yourself or someone else? Patient reports no desire to harm self or others. Onset of symptoms. 07:24 Method Of Arrival: Ambulatory hb 07:24 Acuity: HERMELINDA 3 hb Historical: - Allergies: 07:25 Nitroglycerin; hb - PMHx: 07:25 Congestive heart failure; Gout; Hypertensive disorder; hb - PSHx: 07:25 femur sx; hb - Immunization history:: Adult Immunizations up to date. - Infectious Disease History:: Denies. - Family history:: not pertinent. - Social history:: Smoking status: unknown. - Hospitalizations: : No recent hospitalization is reported. Screenin:24 [facility] ED Fall Risk Assessment (Adult) History of falling in the last 3 months, hh1 including since admission No falls in past 3 months (0 pts) Confusion or Disorientation No (0 pts) Intoxicated or Sedated No (0 pts) Impaired Gait No (0 pts) Mobility Assist Device Used No (0 pt) Altered Elimination No (0 pt) Score/Fall Risk Level 0 - 2 = Low Risk Oriented to surroundings, Maintained a safe environment, Educated pt \T\ family on fall prevention, incl call for assistance when getting out of bed, Assessed \T\ reinforced patient's understanding of fall precautions, Hourly rounding (assess needs \T\ fall precautionary measures) done, Used ambulatory aids as needed (educated on \T\ assisted with). Abuse screen: Denies threats or abuse. Denies injuries from another. Nutritional screening: No deficits noted. Tuberculosis screening: No symptoms or risk factors identified. Assessment: 07:24 General: Appears in no apparent distress. Behavior is calm, cooperative, appropriate hh1 for age. Pain: Complains of pain in left foot and left leg Pain does not radiate. Neuro: No deficits noted. Cardiovascular: Reports Hypertensive, denies any associated symptoms. States did not take his blood pressure medication this morning. Respiratory: No deficits noted. Musculoskeletal: Swelling present in left foot and left leg Pt has hx of gout, stated that this flare up started yesterday but ran out of his medications. Vital Signs: 07:24 BP 244 / 147; Pulse 107; Resp 16; Temp 98; Pulse Ox 100% ; Pain 10/10; hb 08:15 BP 208 / 129; Pulse 9; Resp 18; Pulse Ox 96% ; hh1 08:45 BP 196 / 121; Pulse 100; Resp 18; Temp 98; Pulse Ox 98% ; hh1 07:24 Pain Scale: Adult hb ED Course: 07:11 Patient arrived in ED. im 07:11 Kirby Cortes MD is Attending Physician. rn 07:18 Sherrie Martino RN is Primary Nurse. hh1 07:24 Patient has correct armband on for positive identification. Bed in low position. Call [facility] light in reach. Side rails up X 1. 07:25 Triage completed. hb 07:51 Inserted saline lock: 20 gauge in right antecubital area, using aseptic technique. hh1 Flushed with 10 mL NS. 08:55 Provided Education on: Plan of care. 1 08:55 No provider procedures requiring assistance completed. IV discontinued. 1 08:57 Arm band placed on right wrist. 1 Administered Medications: 07:50 Drug: Decadron - Dexamethasone IVP 10 mg IVP once Route: IVP; Site: right antecubital; 1 08:43 Follow up: Response: No adverse reaction 1 07:50 Drug: Ketorolac IVP 15 mg IVP once Route: IVP; Site: right antecubital; 1 08:43 Follow up: Response: No adverse reaction; Pain is decreased 1 07:50 Drug: Colcrys PO 0.6 mg PO once Route: PO; 1 08:44 Follow up: Response: No adverse reaction [facility] 07:50 Drug: [place] PO 10 mg-325 mg 1 tabs PO once Route: PO; [facility] 08:44 Follow up: Response: No adverse reaction; Pain is decreased [facility] 08:55 Drug: [place] PO 10 mg-325 mg 1 tabs PO once Route: PO; [facility] 08:55 Follow up: Response: No adverse reaction [facility] Medication: 07:24 VIS not applicable for this client. [facility] Outcome: 08:43 Discharge ordered by . samantha 08:55 Discharged to home via wheelchair, [facility] 08:55 Condition: good 08:55 Discharge instructions given to patient, Instructed on discharge instructions, follow up and referral plans. medication usage, Demonstrated understanding of instructions, follow-up care, medications, Prescriptions given X 1, 08:57 Patient left the ED. [facility] Signatures: Kirby Cortes MD MD rn Baxter, Heather, RN RN Rosario Fontanez Heather, SAMANTHA RN 1 Corrections: (The following items were deleted from the chart) 07:26 07:24 Chief complaint: Left ankle pain since last night. Hx of gout. [facility]
--- NOTE | 2025-02-15 08:43 | EDPHYS ---
Physician Documentation [facility] Name: Ezequiel Padron Age: 39 yrs Sex: Male : 1985 Arrival Date: 02/15/2025 Time: 07:09 Bed 13 Private MD: ED Physician Kirby Cortes HPI: 02/15 07:26 This 39 yrs old Black Male presents to ER via Ambulatory with complaints of left ankle rn pain. 07:26 The patient presents with pain. The complaints affect the left ankle. Onset: The rn symptoms/episode began/occurred yesterday. Patient reports has history of gout, is having another flare, located in left ankle. No injury. No fever or chills. Identical pain to previous episodes. Has tried to cut out meat and alcohol. 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 Historical: - Allergies: 07:25 Nitroglycerin; hb - PMHx: 07:25 Congestive heart failure; Gout; Hypertensive disorder; hb - PSHx: 07:25 femur sx; hb - Immunization history:: Adult Immunizations up to date. - Infectious Disease History:: Denies. - Family history:: not pertinent. - Social history:: Smoking status: unknown. - Hospitalizations: : No recent hospitalization is reported. ROS: 07:26 Constitutional: Negative for fever, chills, and weight loss, MS/Extremity: Positive for rn left ankle pain Skin: Negative for injury, rash, and discoloration, Neuro: Negative for numbness and tingling Exam: 07:26 Constitutional: This is a well developed, well nourished patient who is awake, alert, rn and in no acute distress. Ambulatory to room without difficulty or assistance MS/ Extremity: Pulses equal, no cyanosis. Neurovascular intact. Mild swelling left lateral malleolus, no erythema or warmth. No overlying cellulitis or open wounds. Vital Signs: 07:24 BP 244 / 147; Pulse 107; Resp 16; Temp 98; Pulse Ox 100% ; Pain 10/10; hb 08:15 BP 208 / 129; Pulse 9; Resp 18; Pulse Ox 96% ; hh1 08:45 BP 196 / 121; Pulse 100; Resp 18; Temp 98; Pulse Ox 98% ; hh1 07:24 Pain Scale: Adult hb MDM: 07:11 Medical Screening Exam initiated rn 08:42 Differential diagnosis: gout. Data reviewed: vital signs, nurses notes, and as a rn result, I will discharge patient. Counseling: I had a detailed discussion with the patient and/or guardian regarding the historical points, exam findings, and any diagnostic results supporting the discharge/admit diagnosis, the need for outpatient follow up, to return to the emergency department if symptoms worsen or persist or if there are any questions or concerns that arise at home. Special discussion: I discussed with the patient/guardian in detail that at this point there is no indication for admission to the hospital. It is understood, however, that if the symptoms persist or worsen the patient needs to return immediately for re-evaluation. Based on the history and exam findings, there is no indication for further emergent testing or inpatient evaluation. I discussed with the patient/guardian the need to see the primary care provider for further evaluation of the symptoms. 02/15 07:24 Order name: IV Start; Complete Time: 07:50 rn Administered Medications: 07:50 Drug: Decadron - Dexamethasone IVP 10 mg IVP once Route: IVP; Site: right antecubital; 1 08:43 Follow up: Response: No adverse reaction 1 07:50 Drug: Ketorolac IVP 15 mg IVP once Route: IVP; Site: right antecubital; hh1 08:43 Follow up: Response: No adverse reaction; Pain is decreased 1 07:50 Drug: Colcrys PO 0.6 mg PO once Route: PO; hh1 08:44 Follow up: Response: No adverse reaction 1 07:50 Drug: [place] PO 10 mg-325 mg 1 tabs PO once Route: PO; hh1 08:44 Follow up: Response: No adverse reaction; Pain is decreased 1 08:55 Drug: [place] PO 10 mg-325 mg 1 tabs PO once Route: PO; hh1 08:55 Follow up: Response: No adverse reaction 1 Disposition Summary: 02/15/25 08:43 Discharge Ordered Notes: Location: Home rn Problem: an acute exacerbation rn Symptoms: have improved rn Condition: Stable rn Diagnosis - Gout, unspecified rn Followup: rn - With: Private Physician - When: As needed - Reason: Recheck today's complaints, Re-evaluation by your physician Discharge Instructions: - Discharge Summary Sheet rn - Gout rn Forms: - Medication Reconciliation Form rn - Antibiotic utility operator yarn - Prescription Opioid Use rn - Patient Portal Instructions rn - Leadership Thank You Letter rn Prescriptions: - Medrol ([place]) 4 mg Oral Tablets, Dose Pack - take 1 tablet ORAL route as directed - follow package instructions; 1 packet; rn Refills: 0, Product Selection Permitted Signatures: Kirby Cortes MD MD rn Baxter, Heather, RN RN Sherrie Martino RN RN hh1
[2025-02-15 10:08] VITALS: TEMP 98
[2025-02-15 10:12] VITALS: BP 196/121; O2SAT 98
== END 2025-02-15 08:57 | disposition home or self-care (01) ==
LOC: ER 07:09
DX: M10.9 Gout, unspecified (principal)
CPT/HCPCS: 96375; 96374; 99284; J1885; J1100

== ENCOUNTER 2025-02-22 04:55 | Emergency (ER) | payer OTHER ==
--- OUTSIDE RECORDS SUMMARY | 2025-02-22 05:00 | XMS REPORT | Continuity of Care Document ---
Author Name Unknown Address [address] [place] [address] [facility] Address [address] [place] [address] Care Team Providers Care Animal Control Supervisor Name Role Phone Pcp, Patient Does Not Have A Primary Care Physic pat Doctor Unassigned, [place] Attending Clinician U jose e Figueroa, Generic Provider Attending Clinician Unavailable MIGDALIA VILLEGAS Attending Clinician Unavailable MIGDALIA VILLEGAS Attending Clinician Unavailable Migdalia Driver Attending Clinician [phone] Cipriano FREDERICK, Basim Sanz Attending Clinician + Tameka Garcia Attending Clinician [phone] Tameka NOVOA Attending Clinician Unavailable Doctor Unassigned, [place] Attending Clinician U Sherrell Erazo RN Attending Clinician Unavailable DIMITRIOS ABEL Attending Clinician UnavailDimitrios Kearney MD Attending Clinician [phone] DIMITRIOS ABEL Admitting Clinician UnavailDimitrios Kearney MD Admitting Clinician [phone] Payers Payer Name Policy Type Policy Number Effective Date Expirati on Date Source Problems Condition Name Condition Details Condition Category Status Onset Date Resolution Date Last Treatment Date Treating Clinician Comments Source SOB (shortness of breath) SOB (shortness of breath) Disease Active 4-14 00:00: 00 [facility] Obesity (BMI 30-39.9) Obesity (BMI 30-39.9) Disease Active 7-21 00:00: 00 [facility] Allergies, Adverse Reactions, Alerts Allergy Name Allergy Type Status Severity Reaction(s) Onset Date Inactive Date Treating Clinician Comments Source MORPHINE DRUG INGREDI Active Unknown-Cmnt 12-06 00:00: 00 [facility] Morphine Propensi ty to adverse reaction s Active Unknown - See comments 12-06 00:00: 00 Patient does not know reaction [facility] NO KNOWN ALLERGIE S Drug Class Active [facility] Social History Social Habit Start Date Stop Date Quantity Comments Source History SDOH Alcohol Std Drinks [facility] History SDOH Alcohol Binge [facility] Alcohol Frequency [facility] History of Social function 2024-06-01 00:00:00 2024-06-01 00:00:00 [facility] Exposure to SARS-CoV-2 (event) 2021-11-26 00:00:00 2021-12-06 12:55:00 Not sure [facility] Alcohol intake 2021-12-06 00:00:00 2021-12-06 00:00:00 Current drinker of alcohol (finding) [facility] Alcohol Comment 2016-11-22 00:00:00 2016-11-22 00:00:00 Daily [facility] Alcoholic beverage intake 2016-11-22 00:00:00 2016-11-22 00:00:00 Current drinker of alcohol (finding) [facility] Tobacco use and exposure 2016-11-22 00:00:00 2016-11-22 00:00:00 Smokeless tobacco non-user [facility] Sex assigned at 1985 00:00:00 1985 00:00:00 [facility] Smoking Status Start Date Stop Date Source Never smoked tobacco [facility] Medications Ordered Medication Name Filled Medication Name Start Date Stop Date Current Medication? Ordering Clinician Indication Dosage Frequency Signature (SIG) Comments Components Source cloNIDine (CATAPRES) tablet 0.1 mg 06-02 04:45: 00 06-02 05:17 :00 No .1mg 0.1 mg, Oral, ONCE, 1 dose, On Sat06/01/24 at 2245, STAT [facility] HYDROcodone -acetaminop hen (NORCO 5) tablet 1 tablet 06-02 04:45: 00 06-02 05:17 :00 No 1{tbl} 1 tablet, Oral, ONCE, 1 dose, On Sat06/01/24 at 2245, [facility] methylpredn isolone sod succ (SOLU-MEDRO L) injection 125 mg 06-02 04:40: 00 06-02 05:18 :00 No 125mg 125 mg, Intramuscu lar, ONCE NOW, 1 dose, On Sat06/01/24 at 2245, [facility] acetaminoph en-codeine 300-30 mg tablet 06-02 00:00: 00 06-10 05:59 :00 No [id number] 1{tbl} Take 1 tablet by mouth every 8 (eight) hours as needed for Pain (scale 4-6) for up to 7 days. Indication s: acute pain [facility] lisinopriL (PRINIVIL,Z ESTRIL) tablet 20 mg 12-07 14:00: 00 Yes 20mg 20 mg, Oral, DAILY, First dose on Viktoriya 12/07/21 at 0900, Until Discontinu ed, Routine [facility] HYDROcodone -acetaminop hen (NORCO) 10-325 mg tablet 1 tablet 12-06 17:15: 00 12-06 16:12 :00 No 1{tbl} 1 tablet, Oral, ONCE, 1 dose, On Sat12/06/21 at 1215, [facility] carvediloL (COREG) tablet 25 mg 12-06 17:15: 00 12-06 16:12 :00 No 25mg 25 mg, Oral, ONCE, 1 dose, On Sat12/06/21 at 1215, Routine [facility] methylpredn isolone sod succ (SOLU-MEDRO L) injection 125 mg 12-06 16:45: 00 12-06 16:09 :00 No 125mg 125 mg, Intramuscu lar, ONCE, 1 dose, On Sat12/06/21 at 1145, REGINA [facility] predniSONE 20 mg tablet 12-06 00:00: 00 Yes [id number] 1 PO BID x 4 days [facility] acetaminoph en-codeine 300-30 mg tablet 12-06 00:00: 00 Yes [id number] 1{tbl} Take 1 tablet by mouth every 4 (four) hours as needed for Pain (scale 4-6). Indication s: acute pain [facility] aspirin 81 mg chewable tablet 09-14 00:00: 00 Yes [id number] 81mg Take 1 tablet by mouth daily. [facility] atorvastati n 40 mg tablet 09-14 00:00: 00 Yes [id number] 40mg Take 1 tablet by mouth at bedtime. [facility] carvediloL 25 mg tablet 09-14 00:00: 00 Yes [id number] 37.5mg Take 1.5 tablets by mouth 2 (two) times daily with meals. [facility] furosemide 40 mg tablet 09-14 00:00: 00 Yes [id number] 40mg Take 1 tablet by mouth every morning and evening. [facility] lisinopriL 10 mg tablet 09-14 00:00: 00 Yes [id number] 30mg Take 3 tablets by mouth daily. [facility] spironolact one 25 mg tablet 09-14 00:00: 00 Yes [id number] 25mg Take 1 tablet by mouth daily. [facility] aspirin 81 mg chewable tablet -19 00:00: 00 09-14 00:00 :00 No [id number] 81mg Take 1 tablet by mouth daily for 180 days. [facility] lisinopriL 10 mg tablet 08-22 00:00: 00 09-14 00:00 :00 No [id number] 30mg Take 3 tablets by mouth daily for 180 days. [facility] spironolact one 25 mg tablet 08-22 00:00: 00 09-14 00:00 :00 No [id number] 25mg Take 1 tablet by mouth daily for 180 days. [facility] carvediloL (COREG) tablet 37.5 mg 08-21 22:00: 00 Yes 37.5mg 37.5 mg, Oral, BID MEALS, First dose (after last modificati on) on Sat08/21/21 at 1700, Until Discontinu ed, Routine [facility] lisinopriL (PRINIVIL,Z ESTRIL) tablet 30 mg 08-21 14:00: 00 Yes 30mg 30 mg, Oral, DAILY, First dose (after last modificati on) on Sat08/21/21 at 0900, Until Discontinu ed, Routine [facility] magnesium oxide (MAG-OX 400) tablet 400 mg 08-21 13:45: 00 08-21 13:20 :00 No 400mg 400 mg, Oral, ONCE, 1 dose, On Sat08/21/21 at 0845, Routine [facility] amLODIPine 10 mg tablet 08-21 11:33: 41 08-21 00:00 :00 No 10mg Take 10 mg by mouth daily. [facility] hydroCHLORO thiazide 25 mg tablet 08-21 11:33: 41 08-21 00:00 :00 No 25mg Take 25 mg by mouth daily. [facility] ibuprofen 800 mg tablet 08-21 11:33: 41 08-21 00:00 :00 No 800mg Take 800 mg by mouth 2 (two) times daily. [facility] hydrALAZINE (APRESOLINE ) tablet 10 mg 08-21 07:00: 00 08-21 06:05 :00 No 10mg 10 mg, Oral, ONCE, 1 dose, On Sat08/21/21 at 0200, Routine [facility] atorvastati n 40 mg tablet 08-21 00:00: 00 09-14 00:00 :00 No [id number] 40mg Take 1 tablet by mouth at bedtime for 180 days. [facility] furosemide 40 mg tablet 08-21 00:00: 00 09-14 00:00 :00 No [id number] 40mg Take 1 tablet by mouth every morning and evening for 180 days. [facility] carvediloL 25 mg tablet 08-21 00:00: 00 09-14 00:00 :00 No [id number] 37.5mg Take 1.5 tablets by mouth 2 (two) times daily with meals for 180 days. [facility] carvediloL 25 mg tablet 08-21 00:00: 00 08-21 00:00 :00 No [id number] 25mg Take 1 tablet by mouth 2 (two) times daily with meals for 180 days. [facility] furosemide (LASIX) tablet 40 mg 08-20 14:00: 00 Yes 40mg 40 mg, Oral, QAM+PM, First dose (after last modificati on) on Sat08/20/21 at 0900, Until Discontinu ed, Routine [facility] lisinopriL (PRINIVIL,Z ESTRIL) tablet 20 mg 08-20 14:00: 00 08-21 11:42 :47 No 20mg 20 mg, Oral, DAILY, First dose (after last modificati on) on Sat08/20/21 at 0900, Until Discontinu ed, Routine [facility] carvediloL (COREG) tablet 25 mg 08-20 13:00: 00 08-21 17:46 :56 No 25mg 25 mg, Oral, BID MEALS, First dose (after last modificati on) on 08/20/21 at 0800, Until Discontinu ed, Routine [facility] lisinopriL (PRINIVIL,Z ESTRIL) tablet 5 mg 08-19 15:00: 00 08-19 14:30 :00 No 5mg 5 mg, Oral, ONCE, 1 dose, On Sat08/19/21 at 1000, Routine [facility] carvediloL (COREG) tablet 12.5 mg 08-19 13:00: 00 08-19 22:39 :41 No 12.5mg 12.5 mg, Oral, BID MEALS, First dose (after last modificati on) on Sat08/19/21 at 0800, Until Discontinu ed, Routine [facility] furosemide (LASIX) injection 40 mg 08-19 01:00: 00 08-19 17:31 :11 No 40mg 40 mg, Slow IV Push, Q12H, First dose on Sat08/18/21 at 2000, Until Discontinu ed, Routine [facility] hydrALAZINE (APRESOLINE ) tablet 25 mg 08-18 21:47: 07 Yes 25mg 25 mg, Oral, Q6HPRN, Starting on Sat08/18/21 at 1647, Until Discontinu ed, Routine, SBP >180 [facility] lisinopriL (PRINIVIL,Z ESTRIL) tablet 10 mg 08-18 18:15: 00 08-18 18:14 :00 No 10mg 10 mg, Oral, DAILY, 1 dose, First dose on Sat08/18/21 at 1315, Routine [facility] lisinopriL (PRINIVIL,Z ESTRIL) tablet 10 mg 08-18 16:00: 00 08-19 13:47 :35 No 10mg 10 mg, Oral, DAILY, First dose on Sat08/18/21 at 1100, Until Discontinu ed, Routine [facility] spironolact one (ALDACTONE) tablet 25 mg 08-18 14:00: 00 Yes 25mg 25 mg, Oral, DAILY, First dose on Sat08/18/21 at 0900, Until Discontinu ed, Routine [facility] aspirin chewable tablet 81 mg 08-18 14:00: 00 Yes 81mg 81 mg, Oral, DAILY, First dose on Sat08/18/21 at 0900, Until Discontinu ed, Routine [facility] furosemide (LASIX) tablet 40 mg 08-18 14:00: 00 08-18 16:18 :32 No 40mg 40 mg, Oral, QAM+PM, First dose on Sat08/18/21 at 0900, Until Discontinu ed, Routine [facility] amLODIPine (NORVASC) tablet 10 mg 08-18 12:00: 00 08-18 11:05 :00 No 10mg 10 mg, Oral, ONCE, 1 dose, On Sat08/18/21 at 0700, Routine [facility] atorvastati n (LIPITOR) tablet 40 mg 08-18 02:00: 00 Yes 40mg 40 mg, Oral, QHS, First dose on Sat08/17/21 at 2100, Until Discontinu ed, Routine [facility] heparin (porcine) injection 5,000 Units 08-18 01:00: 00 Yes 5000U 5,000 Units, Subcutaneo us, Q12H, First dose on Sat08/17/21 at 2000, Until Discontinu ed, Routine [facility] hydrALAZINE (APRESOLINE ) tablet 10 mg 08-17 22:45: 00 08-17 23:51 :00 No 10mg 10 mg, Oral, ONCE, 1 dose, On Sat08/17/21 at 1745, Routine [facility] hydrALAZINE (APRESOLINE ) tablet 10 mg 08-17 21:45: 54 08-18 21:47 :24 No 10mg 10 mg, Oral, Q6HPRN, Starting on Sat08/17/21 at 1645, Until Sat08/18/21 at 1647, Routine, SBP >180 [facility] sulfur hexafluorid e microsphr (LUMASON) injection 5 mL 08-17 20:45: 00 08-17 20:45 :00 No [id number] 5mL 5 mL, Intravenou s, ONCE, 1 dose, On Sat08/17/21 at 1545, Routine
economics faculty member approving Restricted medication : DEZ QIU [facility] magnesium sulfate in water 4 gram/50 mL (8 %) IV Piggyback 4 g 08-17 18:15: 00 08-17 18:29 :00 No 4g 4 g, IV Piggyback, ONCE, 1 dose, On Viktoriya 08/17/21 at 1315, Routine [facility] KCL (KLOR-CON M20) tablet 40 mEq 08-17 18:15: 00 08-17 18:10 :00 No 40meq 40 mEq, Oral, ONCE, 1 dose, On Viktoriya 08/17/21 at 1315, Routine [facility] furosemide (LASIX) injection 40 mg 08-17 17:15: 00 08-18 12:42 :25 No 40mg 40 mg, Slow IV Push, Q12H, First dose on Viktoriya 08/17/21 at 1215, Until Discontinu ed, Routine [facility] acetaminoph en (TYLENOL) tablet 650 mg 08-17 14:09: 58 Yes 650mg 650 mg, Oral, Q6HPRN, Starting on Sat08/17/21 at 0909, Until Discontinu ed, Routine, Pain (scale 1-3) [facility] amLODIPine 10 mg tablet 08-17 09:16: 15 Yes 10mg Take 10 mg by mouth daily. [facility] hydroCHLORO thiazide 25 mg tablet 08-17 09:16: 15 Yes 25mg Take 25 mg by mouth daily. [facility] ibuprofen 800 mg tablet 08-17 09:16: 15 Yes 800mg Take 800 mg by mouth 2 (two) times daily. [facility] Vital Signs Vital Name Observation Time Observation Value Comments S qi Systolic blood pressure 2024-06-02 06:00:00 183 mm[Hg] [facility] Diastolic blood pressure 2024-06-02 06:00:00 132 mm[Hg] [facility] Heart rate 2024-06-02 05:18:00 82 /min Un[facility] Body temperature 2024-06-02 05:18:00 37 Anastasiia [facility] Respiratory rate 2024-06-02 05:18:00 20 /min [facility] Oxygen saturation in Arterial blood by Pulse oximetry 2024-06-02 05:18:00 100 /min [facility] Body height 2024-06-02 03:39:00 182.9 cm [facility] Body weight 2024-06-02 03:39:00 102.377 kg [facility] BMI 2024-06-02 03:39:00 30.61 kg/m2 [facility] Systolic blood pressure 2021-12-06 17:40:07 158 mm[Hg] [facility] Diastolic blood pressure 2021-12-06 17:40:07 105 mm[Hg] [facility] Heart rate 2021-12-06 15:43:00 91 /min Un[facility] Respiratory rate 2021-12-06 15:43:00 20 /min [facility] Oxygen saturation in Arterial blood by Pulse oximetry 2021-12-06 15:43:00 97 /min [facility] Body temperature 2021-12-06 14:49:00 36.61 Anastasiia [facility] Body height 2021-12-06 14:49:00 182.9 cm [facility] Body weight 2021-12-06 14:49:00 99.791 kg [facility] BMI 2021-12-06 14:49:00 29.84 kg/m2 [facility] Systolic blood pressure 2021-08-21 20:39:00 143 mm[Hg] [facility] Diastolic blood pressure 2021-08-21 20:39:00 104 mm[Hg] [facility] Heart rate 2021-08-21 20:39:00 79 /min Unive [facility] Body temperature 2021-08-21 20:39:00 36 Anastasiia [facility] Respiratory rate 2021-08-21 20:39:00 18 /min [facility] Oxygen saturation in Arterial blood by Pulse oximetry 2021-08-21 20:39:00 99 /min [facility] Body weight 2021-08-21 10:57:00 104.055 kg [facility] BMI 2021-08-21 10:57:00 31.11 kg/m2 [facility] Body height 2021-08-18 10:31:00 182.9 cm [facility] Procedures Procedure Date / Time Performed Performing Clinician Source NOTICE OF PRIVACY PRACTICES 2021-12-06 14:38:21 Doctor Unassigned, [place] [facility] CONSENT/REFUSAL FOR DIAGNOSIS AND TREATMENT 2021-12-06 14:38:03 Doctor Unassigned, [place] [facility] AUTHORIZATION FOR RELEASE OF PHI 2021-09-01 05:01:00 Doctor Unassigned, [place] [facility] MAGNESIUM 2021-08-21 08:42:00 Eryn Cowart [facility] BASIC METABOLIC PANEL (NA, K, CL, CO2, GLUCOSE, BUN, CREATININE, CA) 2021-08-21 08:42:00 Supa [facility] N-TERMINAL PRO-BNP 2021-08-21 08:42:00 Gaston [facility] HB ECG ROUTINE & RHYTHM STRIP 2021-08-20 [facility]02[facility] 2021-08-20 09:22:00 Letty March [facility] BASIC METABOLIC PANEL (NA, K, CL, CO2, GLUCOSE, BUN, CREATININE, CA) 2021-08-20 09:22[facility] 2021-08-20 09:22:00 Letty March [facility] HB ECG ROUTINE & RHYTHM STRIP 2021-08-19 13:08:[facility] 2021-08-19 10:21:00 Gaston Elizabeth [facility] BASIC METABOLIC PANEL (NA, K, CL, CO2, GLUCOSE, BUN, CREATININE, CA) 2021-08-19 10:21:00 Gaston Elizabeth [facility] BASIC METABOLIC PANEL (NA, K, CL, CO2, GLUCOSE, BUN, CREATININE, CA) 2021-08-18 19:41:00 Supa [facility] HB ECG ROUTINE & RHYTHM STRIP 2021-08-18 14:50:24 Supa [facility] MAGNESIUM 2021-08-18 09:10:00 [facility]OLIC PANEL (NA, K, CL, CO2, GLUCOSE, BUN, CREATININE, CA) 2021-08-18 09:10:00 Supa [facility] CBC WITH DIFF 2021-08-18 09:10:00 Supa [facility] TROPONIN I 2021-08-17 23:58:00 Supa [facility] TRANSTHORACIC ECHO (TTE) COMPLETE W/ CONTRAST 2021-08-17 18:53:00 Supa [facility] PHOSPHORUS 2021-08-17 15:43:00 [facility] 2021-08-17 15:43:00 Supa [facility] FERRITIN SERUM 2021-08-17 15:43:00 Eryn Cowart [facility] TROPONIN I 2021-08-17 15:43:00 Supa [facility] THYROID STIMULATING HORMONE 2021-08-17 15:43:00 Supa [facility] HEPATIC FUNCTION PANEL ([id number]) (ALB,T.PRO,BILI T,BU/BC,ALT,AST,ALK PHOS) 2021-08-17 15:43:00 Supa [facility] BASIC METABOLIC PANEL (NA, K, CL, CO2, GLUCOSE, BUN, CREATININE, CA) 2021-08-17 15:43:00 Supa [facility] IRON PANEL 2021-08-17 15:43:00 Supa [facility] CBC WITH DIFF 2021-08-17 15:43:00 Supa [facility] GLYCOSYLATED HEMOGLOBIN (A1C) 2021-08-17 15:43:00 Eryn Cowart [facility] N-TERMINAL PRO-BNP 2021-08-17 15:43:00 Eryn Cowart [facility] XR CHEST 1 VW 2021-08-17 15:10:00 Eryn Cowart [facility] EXTERNAL PROVIDER RECORDS 2016-11-23 05:01:00 Doctor Unassigned, [place] [facility] DAY SURGERY - ADC 2016-11-23 05:01:00 Doctor Ivonne ssigned, [place] [facility] Encounters Start Date/Time End Date/Time Encounter Type Admission Type Attending Clinicians Care Facility Care Department Encounter ID Source 2024-08-03 13:47:27 2024-08-03 13:47:27 Outpatient [facility] [id number] Gucci Philippe Bairon 2016-11-23 00:00:00 2024-06-20 03:42:57 Orders Only Doctor Unassigned, [place] Doctor Unassigned, [place] [facility] [id number] 350.1.13.10 4.2.7.2.686 [id number] [facility] 2024-06-10 00:00:00 2024-06-10 11:09:01 Letter (Out) Campaigns, Generic Provider Campaigns, Generic Provider [facility] [id number] 350.1.13.10 4.2.7.2.686 [id number] [facility] 2024-06-01 21:44:00 2024-06-02 00:17:00 Emergency X MIGDALIA VILLEGAS SHINTA [facility] ERT [id number] [facility] 2024-06-01 21:44:00 2024-06-02 00:17:00 Emergency Migdalia Villegas [facility] [id number] 350.1.13.10 4.2.7.2.686 [id number] [facility] 2024-03-30 10:06:11 2024-03-30 10:06:11 Outpatient [facility] [id number] Gucci Waddell 2022-08-17 00:00:00 2022-08-17 00:00:[facility]..114 350.1.13.10 4.2.7.2.686 [id number] [facility] 2021-12-06 09:51:00 2021-12-06 13:09:00 Emergency Tameka Novoa [facility] 1..114 350.1.13.10 4.2.7.2.686 [id number] [facility] 2021-12-06 09:51:00 2021-12-06 13:09:00 Emergency X Tameka NOVOA [facility] ERT [id number] [facility] 2021-12-06 00:00:00 2021-12-06 00:00:00 Orders Only Doctor Unassigned, [place] [facility] 1..114 350.1.13.10 4.2.7.2.686 [id number] [facility] 2021-09-14 00:00:00 2021-09-14 00:00:00 [facility]..114 350.1.13.10 4.2.7.2.686 [id number] [facility] 2021-09-12 00:00:00 2021-09-12 00:00:00 Telephone Basim Cota [facility] OFF[facility]ILD[facility] 1..114 350.1.13.10 4.2.7.2.686 [id number] [facility] 2021-09-01 00:00:00 2021-09-01 00:00:00 Telephone Khalife, [facility] 1.2840.114 350.1.13.10 4.2.7.2.686 [id number] [facility] 2021-09-01 00:00:00 2021-09-01 00:00:00 Orders Only Doctor Unassigned, [place] [facility] 1.2840.114 350.1.13.10 4.2.7.2.686 [id number] [facility] 2021-08-30 00:00:00 2021-08-30 00:00:00 [facility] 1.840.114 350.1.13.10 4.2.7.2.686 [id number] [facility] 2021-08-22 00:00:00 2021-08-22 00:00:00 Transition of Care Sherrell Neumann 1.840.114 350.1.13.10 4.2.7.2.686 [id number] [facility] 2021-08-17 08:35:00 2021-08-21 17:42:00 Inpatient U [facility]OS [facility] [id number] [facility] 2021-08-17 08:35:00 2021-08-21 17:42:00 Hospital En[facility] 1.840.114 350.1.13.10 4.2.7.2.686 [id number] [facility] 2021-08-18 00:00:00 2021-08-18 00:00:00 Telephone Dimitrios Abel [facility] 1.2840.114 350.1.13.10 4.2.7.2.686 [id number] [facility] Results Test Description Test Time Test Comments Results Result Co mments Source [facility] METABOLIC PANEL (NA, K, CL, CO2, GLUCOSE, BUN, CREATININE, CA)2021-08-21 10:07:34* Test Item Value Reference Range Interpretation Comme nts NA (test code = 1157218115) 135 mmol/L 135-145 K (test code = 2394449040) 4.4 mmol/L 3.5-5.0 CL (test code = 0038574963) 102 mmol/L 98-108 CO2 TOTAL (test code = 7576979432) 26 mmol/L 23-31 AGAP (test code = 6326612108) 2-16 BUN (test code = 6642554320) 27 mg/dL 7-23 H GLUCOSE (test code = 5755304948) 104 mg/dL 70-110 CREATININE (test code = 8915764165) 1.49 mg/dL 0.60-1.25 H CALCIUM (test code = 8623765049) 9.0 mg/dL 8.6-10.6 eGFR (test code = 7083692371) mL/min/1.73m2 EBEN (test code = EBEN) Association [...] imaging tests). Lab Interpretation (test code = 62559-9) Abnormal [facility] [facility] 10:07:34* Test Item Value Reference Range Interpretation Comme nts MAGNESIUM (test code = 7016889033) 1.9 mg/dL 1.7-2.4 Lab Interpretation (test cod e = 61308-0) Normal [facility] (NA, K, CL, CO2, GLUCOSE, BUN, CREATININE, CA)2021-08-20 10:22:59* Test Item Value Reference Range Interpretation Comme nts NA (test code = 3217450740) 137 mmol/L 135-145 K (test code = 1931551435) 4.4 mmol/L 3.5-5.0 CL (test code = 0902702237) 102 mmol/L 98-108 CO2 TOTAL (test code = 8307005744) 26 mmol/L 23-31 AGAP (test code = 3950458816) 2-16 BUN (test code = 3782739401) 31 mg/dL 7-23 H GLUCOSE (test code = 4604419813) 119 mg/dL 70-110 H CREATININE (test code = 3583761748) 1.56 mg/dL 0.60-1.25 H CALCIUM (test code = 9107945128) 9.1 mg/dL 8.6-10.6 eGFR (test code = 0392702539) mL/min/1.73m2 EBEN (test code = EBEN) Association [...] imaging tests). Lab Interpretation (test code = 92898-1) Abnormal [facility]17 10:22:59* Test Item Value Reference Range Interpretation Comme nts MAGNESIUM (test code = 5899058412) 2.1 mg/dL 1.7-2.4 Lab Interpretation (test cod e = 05397-1) Normal [facility] WITH [id number] 09:42:15* Test Item Value Reference Range Interpretation Comme nts WBC (test code = 6690-2) See_Comment H [Automated [employer]] The system which generated this result transmitted reference range: 4.20 - 10.70 10*3/?L. The reference range was not used to interpret this result as normal/abnormal. RBC (test code = 789-8) See_Comment [Automated [employer]] The system which generated this result transmitted [...] 32.8 g/dL 31.2-35.0 RDW-SD (test code = 85797-0) 39.3 fL 38.5-51.6 RDW-CV (test code = 788-0) 12.5 % 12.1-15.4 PLT (test code = 777-3) See_Comment H [Automated messa ge] The system which generated this result transmitted reference range: 150 - 328 10*3/?L. The reference range was not used to interpret this result as normal/abnormal. MPV (test code = 43980-1) 9.3 fL 9.8-13.0 L NRBC/100 WBC (test code = 6679483608) See_Comment [Automated [employer] ssage] The system which generated this result transmitted reference range: 0.0 - 10.0 /100 WBCs. The reference range was not used to interpret this result as normal/abnormal. NRBC x10^3 (test code = 6610950410) <0.01 See_Comment [Automated messa ge] The system which generated this result transmitted reference range: 10*3/?L. The reference range was not used to interpret this result as normal/abnormal. GRAN MAT (NEUT) % (test code = 770-8) 60.5 % IMM GRAN % (test code = 3655728589) 0.30 % LYMPH % (test code = 736-9) 26.7 % MONO % (test code = 5905-5) 8.3 % EOS % (test code = 713-8) 3.4 % BASO % (test code = 706-2) 0.8 % GRAN MAT x10^3(ANC) (test code = 3520576486) 7.17 10*3/uL 1.99-6.95 H IMM GRAN x10^3 (test code = 9153717648) 0.03 10*3/uL 0.00-0.06 LYMPH x10^3 (test code = 731-0) 3.16 10*3/uL 1.09-3.23 MONO x10^3 (test code = 742-7) 0.98 10*3/uL 0.36-1.02 EOS x10^3 (test code = 711-2) 0.40 10*3/uL 0.06-0.53 BASO x10^3 (test code = 704-7) 0.10 10*3/uL 0.01-0.09 H Lab Interpretation (test code = 96746-3) Abnormal [facility] METABOLIC PANEL (NA, K, CL, CO2, GLUCOSE, BUN, CREATININE, CA)2021-08-19 10:52:12* Test Item Value Reference Range Interpretation Comme nts NA (test code = 1777835521) 136 mmol/L 135-145 K (test code = 4062311031) 3.8 mmol/L 3.5-5.0 CL (test code = 6834215583) 100 mmol/L 98-108 CO2 TOTAL (test code = 8980213017) 29 mmol/L 23-31 AGAP (test code = 3517898032) 2-16 BUN (test code = 2968773101) 32 mg/dL 7-23 H GLUCOSE (test code = 9748706564) 115 mg/dL 70-110 H CREATININE (test code = 5544764262) 1.67 mg/dL 0.60-1.25 H CALCIUM (test code = 9928286754) 9.1 mg/dL 8.6-10.6 eGFR (test code = 3548393085) mL/min/1.73m2 EBEN (test code = EBEN) Association [...] imaging tests). Lab Interpretation (test code = 36675-3) [facility]normal [facility]16 10:52:12* Test Item Value Reference Range Interpretation Comme nts MAGNESIUM (test code = 0172405505) 1.9 mg/dL 1.7-2.4 Lab Interpretation (test cod e = 05009-1) Normal [facility] (NA, K, CL, CO2, GLUCOSE, BUN, CREATININE, CA)2021-08-18 21:19:06* Test Item Value Reference Range Interpretation Comme nts NA (test code = 8524116140) 135 mmol/L 135-145 K (test code = 7117425929) 3.9 mmol/L 3.5-5.0 CL (test code = 8616755037) 98 mmol/L 98-108 CO2 TOTAL (test code = 4533210312) 30 mmol/L 23-31 AGAP (test code = 5835033158) 2-16 BUN (test code = 2625329003) 29 mg/dL 7-23 H GLUCOSE (test code = 6916044334) 121 mg/dL 70-110 H CREATININE (test code = 3003772395) 1.58 mg/dL 0.60-1.25 H CALCIUM (test code = 1373159204) 8.9 mg/dL 8.6-10.6 eGFR (test code = 9044274021) mL/min/1.73m2 EBEN (test code = EBEN) Association [...] imaging tests). Lab Interpretation (test code = 79064-5) Abnormal [facility] (NA, K, CL, CO2, GLUCOSE, BUN, CREATININE, CA)2021-08-18 10:04:44* Test Item Value Reference Range Interpretation Comme nts NA (test code = 2550721033) 135 mmol/L 135-145 K (test code = 9089906924) 4.0 mmol/L 3.5-5.0 Slight hemolysis CL (test code = 1528868255) 101 mmol/L 98-108 CO2 TOTAL (test code = 0157919049) 29 mmol/L 23-31 AGAP (test code = 9149366686) 2-16 BUN (test code = 8405592585) 32 mg/dL 7-23 H Slight hemolysis GLUCOSE (test code = 7154803001) 114 mg/dL 70-110 H CREATININE (test code = 0153122098) 1.54 mg/dL 0.60-1.25 H CALCIUM (test code = 3409837040) 8.8 mg/dL 8.6-10.6 eGFR (test code = 3426351493) mL/min/1.73m2 EBEN (test code = EBEN) Association [...] imaging tests). Lab Interpretation (test code = 16396-8) [facility]normal [facility] 10:04:44* Test Item Value Reference Range Interpretation Comme nts MAGNESIUM (test code = 6834833586) 2.2 mg/dL 1.7-2.4 Lab Interpretation (test cod e = 29124-2) Normal [facility] WITH [id number] 09:24:38* Test Item Value Reference Range Interpretation Comme nts WBC (test code = 6690-2) See_Comment [Automated [employer]] The system which generated this result transmitted reference range: 4.20 - 10.70 10*3/?L. The reference range was not used to interpret this result as normal/abnormal. RBC (test code = 789-8) See_Comment [Automated [employer]] The system which generated this result transmitted [...] 33.3 g/dL 31.2-35.0 RDW-SD (test code = 16671-9) 39.1 fL 38.5-51.6 RDW-CV (test code = 788-0) 12.6 % 12.1-15.4 PLT (test code = 777-3) See_Comment H [Automated messa ge] The system which generated this result transmitted reference range: 150 - 328 10*3/?L. The reference range was not used to interpret this result as normal/abnormal. MPV (test code = 59320-6) 9.5 fL 9.8-13.0 L NRBC/100 WBC (test code = 3953327877) See_Comment [Automated [employer] ssage] The system which generated this result transmitted reference range: 0.0 - 10.0 /100 WBCs. The reference range was not used to interpret this result as normal/abnormal. NRBC x10^3 (test code = 2160815078) <0.01 See_Comment [Automated messa ge] The system which generated this result transmitted reference range: 10*3/?L. The reference range was not used to interpret this result as normal/abnormal. GRAN MAT (NEUT) % (test code = 770-8) 65.3 % IMM GRAN % (test code = 3348889551) 0.20 % LYMPH % (test code = 736-9) 23.3 % MONO % (test code = 5905-5) 7.0 % EOS % (test code = 713-8) 3.5 % BASO % (test code = 706-2) 0.7 % GRAN MAT x10^3(ANC) (test code = 3477282950) 6.63 10*3/uL 1.99-6.95 IMM GRAN x10^3 (test code = 0137637590) <0.03 0.00-0.06 LYMPH x10^3 (test code = 731-0) 2.36 10*3/uL 1.09-3.23 MONO x10^3 (test code = 742-7) 0.71 10*3/uL 0.36-1.02 EOS x10^3 (test code = 711-2) 0.35 10*3/uL 0.06-0.53 BASO x10^3 (test code = 704-7) 0.07 10*3/uL 0.01-0.09 Lab Interpretation (test code = 21011-3) [facility]normal [facility] (A1C)2021-08-18 02:37:07* Test Item Value Reference Range Interpretation Comme nts HGB A1C (test code = 4548-4) 5.8 % 4.0-5.7 H EBEN (test code = EBEN) Reference RangesNormal: <5.7%Prediabetes: 5.7 - 6.4%Diabetes: > 6.5% Lab Interpretation (test code = 89723-2) Abnormal [facility] [id number] 01:03:37* Test Item Value Reference Range Interpretation Comments TROPONIN I (test code = 6233295282) 0.101 ng/mL See_Comment H [Automated message] The [...] of biotin. Lab Interpretation (test code = 90685-4) Abnormal [facility] (TTE)2021-08-17 22:14:20* Test Item Value Reference Range Interpretation Comme nts Ao root annulus (test code = 0608623882) 3.3 cm Ao root diam (test code = 2058042571) 3.30 cm Aortic root (test code = 2511173395) 3.3 cm LA size (test code = 8705603332) 3.7 cm LVOT diameter (test code = 9498156715) 2.00 cm LVIDD (test code = 8506930451) 5.90 cm IVS (test code = 2564967640) 1.26 cm Interventricular Septum Diastolic Thickness by 2D (test code = 4620069) 1.26 cm LVPWD (test code = 6032989448) 1.19 cm PW (test code = 7911583947) 1.19 cm 0.6-1.1 EF(Teich) (test code = 4231983209) 46.60 % LVIDS (test code = 6709900595) 4.50 cm FS (test code = 5143744106) 24 % EF - 2D (test code = 70623878) 46.60 % LAV(MOD-sp4) (test code = 9593348476) 65.30 mL MV Peak E Narciso (test code = 9619729430) 126.4 cm/s E wave decelartion time (test code = 1879077919) 0.14 s MV Prop V (test code = 9143642888) 35.00 cm/s LVOT stroke volume (test code = 9927794054) 45.10 cm3 LVOT peak narciso (test code = 6850546364) 90.0 cm/s LVOT mn grad (test code = 6196716491) mmHg AV LVOT peak gradient (test code = 6927362622) mmHg LVOT peak VTI (test code = 2492970999) 14.4 cm LV V1 mean (test code = 1555534261) 63.00 cm/s Aortic valve mean velocity (test code = 5963829604) 76.8 cm/s Ao peak narciso (test code = 7399999716) 125.5 cm/s Ao VTI (test code = 9070011222) 17.0 cm AV area by cont VTI (test code = 8569670159) 2.6 cm2 AV area peak narciso (test code = 2896661312) 2.2 cm2 Ao max PG (test code = 0781388078) 6.30 mm[Hg] AV peak gradient (test code = 3884686543) mmHg AV valve area (test code = 7485289967) 2.60 cm2 AV mean gradient (test code = 9663097479) mmHg TR Peak Narciso (test code = 6546315825) 119.4 cm/s Triscuspid Valve Regurgitation Peak Gradient (test code = 9083602160) mmHg Tapse (test code = 8462453578) 1.95 cm LA volume (BP) (test code = 7882232481) 73.5 mL LAV(MOD-sp2) (test code = 0260899458) 74.00 mL LA Volume Index (BP) (test code = 1540153024) 32.5 mL/m2 LV Diastolic Volume (BP) (test code = 9702322023) 232.2 mL EF(MOD-bp) (test code = 4435767085) 33.10 % LV Systolic Volume (BP) (test code = 0788379392) 155.2 mL SV(MOD-bp) (test code = 1277569716) 76.90 mL EF (test code = 0831980736) 33 % Left Ventricular Stroke Volume by 2-D Biplane-MOD (test code = 6636722) 76.9 mL Radiology Study observation (narrative) (test code = 63087-0) EBEN (test code = EBEN) ?Left?Ventricle: Left [...] 2.3 sq meters 183/126 82 [facility] (13199) (ALB,T.PRO,BILI T,BU/BC,ALT,AST,ALK PHOS)2021-08-17 17:59:20* Test Item Value Reference Range Interpretation Comme nts TOTAL BILI (test code = 4708504228) 0.4 mg/dL 0.1-1.1 BILI UNCON (test code = 4954199371) 0.4 mg/dL 0.1-1.1 BILI CONJ (test code = 1347663044) 0.0 mg/dL 0.0-0.3 T PROTEIN (test code = 6088935484) 6.4 g/dL 6.3-8.2 ALBUMIN (test code = 6213798836) 3.7 g/dL 3.5-5.0 ALK PHOS (test code = 1218474457) 64 U/L 34-122 ALTv (test code = 1742-6) 39 U/L 5-50 AST(SGOT) (test code = 0641151059) 30 U/L 13-40 Lab Interpretation (test cod e = 12820-6) Normal [facility]FERR[facility] [id number] 17:21:19* Test Item Value Reference Range Interpretation Comme nts FERRITIN (test code = 9620641723) 29.7 ng/mL 18.0-464.0 EBEN (test code = EBEN) Biotin has been reported to cause a negative bias, interpret results relative to patient's use of biotin. Lab Interpretation (test code = 56844-8) Normal [facility] HospitalTHYROID STIMULATING [id number] 17:14:24 * Test Item Value Reference Range Interpretation Comme nts TSH (test code = 9374148204) See_Comment [Automated [employer] ge] The system which generated this result transmitted reference range: 0.45 - 4.70 mIU/L. The reference range was not used to interpret this result as normal/abnormal. Lab Interpretation (test code = 67273-6) Normal [facility] HospitalN-TERMINAL [id number] 16:55:55* Test Item Value Reference Range Interpretation Comme nts NT-proBNP (test code = 2385314391) 5070 pg/mL See_Comment H [Automated message] The system which generated this result transmitted reference range: <=125. The reference range was not used to interpret this result as normal/abnormal. EBEN (test code = EBEN) Biotin has been reported to cause a negative bias, interpret results relative to patient's use of biotin. Lab Interpretation (test code = 84180-9) Abnormal [facility]TR[facility] [id number] 16:55:55* Test Item Value Reference Range Interpretation Comments TROPONIN I (test code = 2438398703) 0.117 ng/mL See_Comment H [Automated message] The [...] of biotin. Lab Interpretation (test code = 79367-2) Abnormal [facility] HospitalIRON [id number] 16:52:53* Test Item Value Reference Range Interpretation Comme nts IRON (test code = 1842312230) 51 ug/dL 50-160 TIBC (test code = 9712013030) 298 ug/dL 250-410 % FE SAT (test code = 5433816917) 17 % 20-50 L Lab Interpretation (test cod e = 46334-2) Abnormal [facility]2022-04-14 16:41:35* Test Item Value Reference Range Interpretation Comme nts MAGNESIUM (test code = 2766243389) 1.6 mg/dL 1.7-2.4 L Lab Interpretation (test cod e = 06984-7) Abnormal [facility]PHOSPHORUS2022-04-14 16:41:35* Test Item Value Reference Range Interpretation Comme nts PHOSPHORUS (test code = 7214928699) 4.0 mg/dL 2.5-5.0 Lab Interpretation (test cod e = 42512-3) Normal [facility]OLIC PAN[facility] (NA, K, CL, CO2, GLUCOSE, BUN, CREATININE, CA)2021-08-17 16:41:35* Test Item Value Reference Range Interpretation Comme nts NA (test code = 6968767518) 134 mmol/L 135-145 L K (test code = 7549037307) 3.6 mmol/L 3.5-5.0 CL (test code = 5794749314) 99 mmol/L 98-108 CO2 TOTAL (test code = 4556623620) 32 mmol/L 23-31 H AGAP (test code = 2205795393) 2-16 BUN (test code = 4895073941) 24 mg/dL 7-23 H GLUCOSE (test code = 8958876915) 111 mg/dL 70-110 H CREATININE (test code = 7054223190) 1.60 mg/dL 0.60-1.25 H CALCIUM (test code = 7492680767) 8.8 mg/dL 8.6-10.6 eGFR (test code = 4026062686) mL/min/1.73m2 EBEN (test code = EBEN) Association [...] imaging tests). Lab Interpretation (test code = 17790-7) Abnormal [facility] WITH [id number] 16:00:05* Test Item Value Reference Range Interpretation [...] 33.7 g/dL 31.2-35.0 RDW-SD (test code = 80619-6) 39.5 fL 38.5-51.6 RDW-CV (test code = 788-0) 12.6 % 12.1-15.4 PLT (test code = 777-3) See_Comment H [Automated messa ge] The system which generated this result transmitted reference range: 150 - 328 10*3/?L. The reference range was not used to interpret this result as normal/abnormal. MPV (test code = 35122-6) 9.4 fL 9.8-13.0 L NRBC/100 WBC (test code = 7878816262) See_Comment [Automated [employer] ssage] The system which generated this result transmitted reference range: 0.0 - 10.0 /100 WBCs. The reference range was not used to interpret this result as normal/abnormal. NRBC x10^3 (test code = 8468396307) <0.01 See_Comment [Automated messa ge] The system which generated this result transmitted reference range: 10*3/?L. The reference range was not used to interpret this result as normal/abnormal. GRAN MAT (NEUT) % (test code = 770-8) 65.6 % IMM GRAN % (test code = 8693983517) 0.20 % LYMPH % (test code = 736-9) 23.8 % MONO % (test code = 5905-5) 6.7 % EOS % (test code = 713-8) 3.2 % BASO % (test code = 706-2) 0.5 % GRAN MAT x10^3(ANC) (test code = 8398373517) 6.58 10*3/uL 1.99-6.95 IMM GRAN x10^3 (test code = 4907184621) <0.03 0.00-0.06 LYMPH x10^3 (test code = 731-0) 2.39 10*3/uL 1.09-3.23 MONO x10^3 (test code = 742-7) 0.67 10*3/uL 0.36-1.02 EOS x10^3 (test code = 711-2) 0.32 10*3/uL 0.06-0.53 BASO x10^3 (test code = 704-7) 0.05 10*3/uL 0.01-0.09 Lab Interpretation (test code = 77050-8) Abnormal [facility] Notes Date/Time Note Provider Source 2024-06-02 [...] steady gait, in no apparent distress, A [facility] 2024-06-01 21:38:46 Patient arrived ambulatory to ED c/o right foot gout pain that started last night. Patient states being d/c from [place] with prescriptions about 30 minutes ago. States normally gets a shot but they didn't give him one this time. Hx of HTN takes BP medications for it. A Ding RN [facility]"
[2025-02-22] MEDS ORDERED: HYDROCODONE/APAP 5/325 MG TAB ONE (05:15)
[2025-02-22] MEDS ORDERED: KETOROLAC 30 MG/ML INJ ONE (05:20)
[2025-02-22] MEDS ORDERED: METHYLPREDNISOLONE 125 MG INJ ONE (05:20)
[2025-02-22] MEDS ORDERED: PROMETHAZINE 25 MG TABLET ONE (05:21)
--- NOTE | 2025-02-22 06:47 | ER ---
Nurse's Notes [facility] Name: Ezequiel Padron Age: 39 yrs Sex: Male : 1985 Arrival Date: 02/22/2025 Time: 04:55 Bed 8 Private MD: Diagnosis: Idiopathic gout, left ankle and foot;Acute gout flare right knee, acute gout flare to left knee, acute gout flare left ankle Presentation: 02/22 05:00 Chief complaint: Patient states: GOUT FLARE UP. BILATERAL KNEE AND FOOT PAIN. ha1 05:00 Coronavirus screen: Client denies travel out of the [place] in the last 14 days. Ebola ha1 Screen: No symptoms or risks identified at this time. Initial Sepsis Screen: Does the patient meet any 2 criteria? No. Patient's initial sepsis screen is negative. Does the patient have a suspected source of infection? No. Patient's initial sepsis screen is negative. Risk Assessment: Do you want to hurt yourself or someone else? Patient reports no desire to harm self or others. Onset of symptoms was February 22, 2025. 05:00 Method Of Arrival: Wheelchair ha1 05:00 Acuity: HERMELINDA 4 ha1 Triage Assessment: 05:16 General: Appears uncomfortable, Behavior is calm, cooperative. Pain: Complains of pain ha1 in right leg, lateral aspect of left knee, lateral aspect of left foot, left Achilles, medial aspect of left knee, medial aspect of left foot and dorsum of left foot Pain currently is 10 out of 10 on a pain scale. Quality of pain is described as throbbing. Neuro: Level of Consciousness is awake, alert, obeys commands, Oriented to person, place, time, situation. Cardiovascular: Capillary refill < 3 seconds Patient's skin is warm and dry. Respiratory: Airway is patent Respiratory effort is even, unlabored, Respiratory pattern is regular, symmetrical. Historical: - Allergies: 05:16 Nitroglycerin; ha1 - PMHx: 05:16 Congestive heart failure; Gout; Hypertensive disorder; ha1 - PSHx: 05:16 femur sx; ha1 - Immunization history:: Adult Immunizations not up to date. - Infectious Disease History:: Denies. - Social history:: Smoking status: Patient denies any tobacco usage or history of. - Family history:: not pertinent. Screenin:23 [facility] ED Fall Risk Assessment (Adult) History of falling in the last 3 months, ss12 including since admission No falls in past 3 months (0 pts) Confusion or Disorientation No (0 pts) Intoxicated or Sedated No (0 pts) Impaired Gait No (0 pts) Mobility Assist Device Used No (0 pt) Altered Elimination No (0 pt) Score/Fall Risk Level 0 - 2 = Low Risk Oriented to surroundings, Maintained a safe environment, Educated pt \T\ family on fall prevention, incl call for assistance when getting out of bed, Assessed \T\ reinforced patient's understanding of fall precautions. Abuse screen: Denies threats or abuse. Denies injuries from another. Nutritional screening: No deficits noted. Tuberculosis screening: No symptoms or risk factors identified. Assessment: 05:15 General: Appears in no apparent distress. comfortable, Behavior is calm, cooperative. ss12 Pain: Complains of pain in left leg, right leg, dorsum of left foot, medil aspect of left foot, medial aspect of left knee, left archiles Pain Quality of pain is described as aching, Pain began suddenly. Neuro: Level of Consciousness is. Cardiovascular: Patient's skin is warm and dry. Respiratory: Airway is patent Respiratory effort is even, unlabored, Respiratory pattern is regular, symmetrical. GI: No deficits noted. No signs and/or symptoms were reported involving the gastrointestinal system. : No deficits noted. No signs and/or symptoms were reported regarding the genitourinary system. EENT: No deficits noted. No signs and/or symptoms were reported regarding the EENT system. Derm: Skin is intact, Skin is dry, Skin is pink, warm \T\ dry. normal. Musculoskeletal: No deficits noted. No signs and/or symptoms reported regarding the musculoskeletal system. 06:57 Reassessment: Bp 210/130. pt non compliant with HTN meds. notified. ss12 Vital Signs: 05:00 Weight 104.33 kg; Height 6 ft. 0 in. ; Pain 10/10; ha1 05:33 Pulse 104; Resp 18; Temp 99(O); Pulse Ox 100% on R/A; kd3 06:55 BP 210 / 130; Pulse 84; Resp 18; Pulse Ox 99% on R/A; ss12 07:54 BP 199 / 110; Pulse 84; Resp 16; Pulse Ox 98% on R/A; iw 05:00 Body Mass Index 31.19 (104.33 kg, 182.88 cm) ha1 05:00 Pain Scale: Adult ha1 Jose Coma Score: 02/23 00:59 Eye Response: spontaneous(4). Motor Response: obeys commands(6). Verbal Response: sp4 oriented(5). Total: 15. ED Course: 02/22 05:00 Patient arrived in ED. gm2 05:03 Amauri Crowley MD is Attending Physician. sp4 05:13 Samantha Palacios, RN is Primary Nurse. kd3 05:16 Triage completed. ha1 05:24 Arm band placed on right wrist. ss12 05:24 Patient has correct armband on for positive identification. Provided Education on: plan ss12 of care discussed with the patient. 05:24 No provider procedures requiring assistance completed. ss12 07:54 Patient did not have IV access during this emergency room visit. iw Administered Medications: 05:32 Drug: Ketorolac IM 60 mg IM once Route: IM; Site: left ventrogluteal; kd3 05:32 Drug: MethylPREDNISolone Sodium Succinate IM 125 mg IM once Route: IM; Site: left kd3 ventrogluteal; 05:32 Drug: Promethazine PO 25 mg PO once Route: PO; kd3 05:33 Drug: HYDROcodone-acetaminophen PO 5 mg-325 mg 2 tabs PO once Route: PO; kd3 07:18 Drug: cloNIDine PO 0.2 mg PO once Route: PO; db Medication: 05:24 VIS not applicable for this client. ss12 Outcome: 06:47 Discharge ordered by . sp4 07:54 Discharged to home via wheelchair, iw 07:54 Condition: good 07:54 Discharge instructions given to patient, Instructed on discharge instructions, follow up and referral plans. medication usage, Demonstrated understanding of instructions, follow-up care, medications, Prescriptions given X 4, 07:55 Patient left the ED. iw Signatures: Maxine Cooper RN RN Samantha Palacios RN SAMANTHA kd3 Moira Willard RN RN ha1 Karen Kumari RN RN db Amauri Crowley MD MD sp4 Jazzy Villarreal [facility] Ember Pa RN RN 12
--- NOTE | 2025-02-22 06:47 | EDPHYS ---
Physician Documentation [facility] Name: Ezequiel Padron Age: 39 yrs Sex: Male : 1985 Arrival Date: 02/22/2025 Time: 04:55 Bed 8 Private MD: ED Physician Amauri Crowley HPI: 02/22 05:03 This 39 yrs old Black Male presents to ER via Unassigned with complaints of Knee Pain, sp4 Leg Pain. 02/23 00:59 39-year-old male with extensive history of gouty arthritis presents with acute onset of sp4 bilateral knee pain associated with left ankle pain and swelling. Pain is typical of patient's gout flare. Historical: - Allergies: 02/22 05:16 Nitroglycerin; ha1 - PMHx: 05:16 Congestive heart failure; Gout; Hypertensive disorder; ha1 - PSHx: 05:16 femur sx; ha1 - Immunization history:: Adult Immunizations not up to date. - Infectious Disease History:: Denies. - Social history:: Smoking status: Patient denies any tobacco usage or history of. - Family history:: not pertinent. ROS: 02/23 00:59 Constitutional: Negative for fever, chills, and weight loss, positive for right knee sp4 pain and swelling, positive for left knee pain and swelling, positive for left ankle pain and swelling All other systems are negative, Exam: 00:59 Constitutional: This is a well developed, well nourished patient who is awake, alert, sp4 and in no acute distress. Head/Face: Normocephalic, atraumatic. Eyes: Pupils equal round and reactive to light, extra-ocular motions intact. Lids and lashes normal. Conjunctiva and sclera are not injected. Cornea within normal limits. Periorbital areas with no swelling, redness, or edema. ENT: Nares patent. No nasal discharge, no septal abnormalities noted. Tympanic membranes are normal and external auditory canals are clear. Oropharynx with no redness, swelling, or masses, exudates, or evidence of obstruction, uvula midline. Mucous membranes moist. Neck: Trachea midline, no thyromegaly or masses palpated, and no cervical lymphadenopathy. Supple, full range of motion without nuchal rigidity, or vertebral point tenderness. Chest/axilla: Normal chest wall appearance and motion. Nontender with no deformity. No lesions are appreciated. Cardiovascular: Regular rate and rhythm with a normal S1 and S2. No gallops, murmurs, or rubs. No pulse deficits. Respiratory: Lungs have equal breath sounds bilaterally, clear to auscultation and percussion. No rales, rhonchi or wheezes noted. No increased work of breathing, no retractions or nasal flaring. Abdomen/GI: Soft, with normal bowel sounds. No distension or tympany. No guarding or rebound. No evidence of tenderness throughout. Back: No spinal tenderness. No costovertebral tenderness. Skin: Warm, dry with normal turgor. Normal color with no rashes, no lesions, and no evidence of cellulitis. MS/ Extremity: Pulses equal, no cyanosis. Neurovascular intact. Full, normal range of motion. Positive for right knee pain and swelling, positive for left knee pain and swelling, positive for left ankle pain swelling and heat indicative of inflammatory arthropathy Neuro: Awake and alert, GCS 15, oriented to person, place, time, and situation. Cranial nerves II-XII grossly intact. Motor strength 5/5 in all extremities. Sensory grossly intact. Psych: Awake, alert, with orientation to person, place and time. Behavior, mood, and affect are within normal limits Vital Signs: 02/22 05:00 Weight 104.33 kg; Height 6 ft. 0 in. ; Pain 02/12; ha1 05:33 Pulse 104; Resp 18; Temp 99(O); Pulse Ox 100% on R/A; kd3 06:55 BP 210 / 130; Pulse 84; Resp 18; Pulse Ox 99% on R/A; ss12 07:54 BP 199 / 110; Pulse 84; Resp 16; Pulse Ox 98% on R/A; iw 05:00 Body Mass Index 31.19 (104.33 kg, 182.88 cm) ha1 05:00 Pain Scale: Adult ha1 Jose Coma Score: 02/23 00:59 Eye Response: spontaneous(4). Motor Response: obeys commands(6). Verbal Response: sp4 oriented(5). Total: 15. MDM: 02/22 05:04 Medical Screening Exam initiated sp4 02/23 00:59 Differential diagnosis: closed fracture, contusion, abrasion, tendonitis. Data sp4 reviewed: vital signs, nurses notes. Consideration of Admission/Observation Escalation of care including admission/observation considered. ED course: We have noticed patient has significant elevation of blood pressure. Patient was given clonidine p.o. in the ER. Advised clonidine p.o. as needed at home. Appropriate prescriptions were placed. Administered Medications: 02/22 05:32 Drug: Ketorolac IM 60 mg IM once Route: IM; Site: left ventrogluteal; kd3 05:32 Drug: MethylPREDNISolone Sodium Succinate IM 125 mg IM once Route: IM; Site: left kd3 ventrogluteal; 05:32 Drug: Promethazine PO 25 mg PO once Route: PO; kd3 05:33 Drug: HYDROcodone-acetaminophen PO 5 mg-325 mg 2 tabs PO once Route: PO; kd3 07:18 Drug: cloNIDine PO 0.2 mg PO once Route: PO; db Disposition: 02/23 01:01 Chart complete. sp4 Disposition Summary: 02/22/25 06:47 Discharge Ordered Notes: Location: Home sp4 Problem: new sp4 Symptoms: have improved sp4 Condition: Stable sp4 Diagnosis - Idiopathic gout, left ankle and foot sp4 - Acute gout flare right knee, acute gout flare to left knee, acute gout flare left sp4 ankle Followup: sp4 - With: Private Physician - When: 7 - 10 days - Reason: Recheck today's complaints Discharge Instructions: - Discharge Summary Sheet sp4 - Gout, [id number] sp4 Forms: - Patient Portal Instructions sp4 Prescriptions: - colchicine 0.6 mg Oral capsule - take 1 capsule ORAL route daily; 30 capsule; Refills: 0, Product Selection sp4 Permitted - meloxicam 15 mg Oral tablet - take 1 tablet ORAL route daily PRN pain; 30 tablet; Refills: 0, Product sp4 Selection Permitted - clonidine HCl 0.1 mg Oral tablet - take 2 tablet ORAL route 3 times per day; 180 tablet; Refills: 0, Product sp4 Selection Permitted - Tramadol 50 mg Oral tablet - take 1 tablet ORAL route every 8 hours as needed; 20 tablet; Refills: 0, sp4 Product Selection Permitted - Prednisone 20 mg Oral tablet - take 2 tablets ORAL route once daily for 10 days; 20 tablet; Refills: 0, sp4 Product Selection Permitted Signatures: Samantha Palacios RN RN kd3 Moira Willard RN RN ha1 Karen Kumari RN RN db Amauri Crowley MD MD sp4
[2025-02-22 11:43] VITALS: TEMP 99
[2025-02-22 11:45] VITALS: BP 199/110; O2SAT 98
== END 2025-02-22 07:55 | disposition home or self-care (01) ==
LOC: ER 04:55
DX: M10.072 Idiopathic gout, left ankle and foot (principal); M10.9 Gout, unspecified
CPT/HCPCS: 96372; 99284; J1885; Q0169; J2919